=== PATIENT | male | born 1935 | race Caucasian/White ===

== ENCOUNTER 2018-05-20 20:48 | Inpatient (IN) | payer OTHER ==
--- OUTSIDE RECORDS SUMMARY | 2018-05-20 20:51 | XMS REPORT | Clinical Summary ---
:1935 Author Organization [facility] Address [address] [place] [address] Care Team Providers Name Role Phone Marcia Luz MD Primary Care Provider Allergies No Known Allergies Medications Medication Sig Dispensed Refills Start End Date Status Date simvastatin (ZOCOR) Take 20 mg by 3 Active 20 MG tablet mouth once 6 daily. ELIQUIS 2.5 mg Take 2.5 mg by 3 Active tablet mouth 2 (two) 6 times a day. insulin Use as directed 300 each 3 Active syringe-needle 7 U-100 0.5 mL 31 gauge x 5/16 syringe blood sugar Test sugar 3-4 300 strip 3 Active diagnostic strips times a day 7 (CONTOUR NEXT STRIPS) strip test strips insulin regular inject per 20 mL 3 Active human U-500 sliding scale 7 (HumuLIN R U-500) 25-50 units 500 unit/mL under the skin CONCENTRATED before each meal injectionIndication 3 times a day s: Diabetic autonomic neuropathy associated with type 2 diabetes mellitus (HCC) calcitriol TAKE ONE (1) 11 Active (ROCALTROL) 0.25 CAPSULE(S) BY 7 MCG capsule MOUTH ONCE A DAY. finasteride TAKE ONE (1) 90 tablet Active (PROSCAR) 5 mg TABLET(S) BY 8 tabletIndications: MOUTH ONCE A Benign prostatic DAY. hyperplasia with lower urinary tract symptoms, symptom details unspecified potassium chloride Take 1 tablet 90 tablet Active (K-DUR) 20 MEQ CR (20 mEq total) 8 tabletIndications: by mouth daily. Essential hypertension tamsulosin (FLOMAX) Take 1 capsule 3 Active 0.4 mg by mouth daily. 8 capsule,extended release 24hr metoprolol tartrate Take 1 tablet by 3 Active (LOPRESSOR) 25 mg mouth 2 (two) 7 tablet times a day. ranitidine (ZANTAC) Take 150 mg by 0 Active 150 MG tablet mouth daily. allopurinol Take 1 tablet 60 tablet 11 Active (ZYLOPRIM) 100 MG (100 mg total) 8 tabletIndications: by mouth daily. Elevated uric acid in blood lidocaine-prilocain Apply 1 90 g 4 Active e (EMLA) 2.5-2.5 % application (2.5 8 cream g total) topically as needed for mild pain (2-3 times per day as needed to painful areas). gabapentin Take 2 capsules 360 capsule 3 Active (NEURONTIN) 300 mg in the morning 8 capsule and at bedtime for a total of 4 per day. cholecalciferol, Take 1,000 Units 0 Active vitamin D3, by mouth daily. (VITAMIN D3) 1,000 unit capsule clopidogrel Take 75 mg by 0 Active (PLAVIX) 75 mg mouth daily. tablet BUMETanide (BUMEX) TAKE TWO (2) 3 Active 2 MG tablet TABLET(S) BY 8 MOUTH TWICE A DAY. levothyroxine Take 1 tablet 90 tablet 1 02/24/20 Active (SYNTHROID) 200 mcg (200 mcg total) 8 19 tabletIndications: by mouth every Other specified morning. hypothyroidism LYRICA 75 mg TAKE ONE (1) 90 capsule 1 03/06/20 Active capsule CAPSULE(S) BY 8 19 MOUTH NIGHTLY. levothyroxine Take 1 tablet 30 tablet 11 03/29/20 Active (SYNTHROID) 25 mcg (25 mcg total) 8 19 tablet by mouth every morning. spironolactone Take 1 tablet 90 tablet 3 05/08/20 Active (ALDACTONE) 25 MG (25 mg total) by 8 19 tabletIndications: mouth daily. Coronary artery disease involving samish coronary artery of samish heart without angina pectoris, Systolic congestive heart failure, unspecified HF chronicity (HCC), Aortic valve disorder pantoprazole Take 40 mg by 0 07/25/19 Discontinued (PROTONIX) 40 MG EC mouth 2 (two) 18 tablet times a day. amIODarone 0 05/08/20 Discontinued (PACERONE) 200 MG 6 18 tablet pregabalin (LYRICA) Take 1 capsule 90 capsule 2 07/28/19 Discontinued 75 MG capsule (75 mg total) by 7 18 mouth nightly. doxazosin (CARDURA) Take 2 mg by 0 07/25/19 Discontinued 4 MG tablet mouth nightly. 18 allopurinol Take 1 tablet 90 tablet 3 07/25/19 Discontinued (ZYLOPRIM) 100 MG (100 mg total) 7 18 tabletIndications: by mouth daily. Elevated uric acid in blood finasteride Take 1 tablet (5 90 tablet 3 07/22/19 Discontinued (PROSCAR) 5 mg mg total) by 7 18 tabletIndications: mouth daily. Benign prostatic hyperplasia with lower urinary tract symptoms, unspecified morphology potassium chloride Take 1 tablet 180 tablet 3 07/25/19 Discontinued (K-DUR) 20 MEQ CR (20 mEq total) 7 18 tabletIndications: by mouth 2 (two) Essential times a day. hypertension levothyroxine Take 1 tablet 30 tablet 11 07/25/19 Discontinued (SYNTHROID) 200 mcg (200 mcg total) 7 18 tablet by mouth every morning. fosinopril Take 40 mg by 0 07/25/19 Discontinued (MONOPRIL) 40 MG mouth daily. [address] 1 patch on 12 patch 0 07/25/19 Discontinued (TRANSDERM-SCOP) the skin every 7 18 1.5 mg (1 mg over 3 third day. days)Indications: Motion sickness, initial encounter gabapentin Take 2 capsules 450 capsule 2 07/28/19 Discontinued (NEURONTIN) 300 mg in the morning 7 18 capsule and at bedtime, take 1 capsule at noon. metoprolol Take 50 mg by 0 07/25/19 Discontinued succinate XL mouth 2 (two) 18 (TOPROL-XL) 50 mg times a day. 24 hr tablet furosemide (LASIX) 2 po bid 120 tablet 3 02/20/20 Discontinued 80 mg tablet 7 18 lidocaine-prilocain Apply 1 90 g 4 07/28/19 Discontinued e (EMLA) 2.5-2.5 % application (2.5 7 18 cream g total) topically as needed for mild pain (2-3 times per day as needed to painful areas). finasteride TAKE ONE (1) 90 tablet 2 07/25/19 Discontinued (PROSCAR) 5 mg TABLET(S) BY 8 18 tabletIndications: MOUTH ONCE A Benign prostatic DAY. hyperplasia with lower urinary tract symptoms allopurinol Take 1 tablet 90 tablet 1 07/28/19 Discontinued (ZYLOPRIM) 100 MG (100 mg total) 8 18 tabletIndications: by mouth daily. Elevated uric acid in blood levothyroxine Take 1 tablet 90 tablet 1 02/24/20 Discontinued (SYNTHROID) 200 mcg (200 mcg total) 8 18 tabletIndications: by mouth every Other specified morning. hypothyroidism ENTRESTO 24-26 mg Take 1 tablet by 11 07/25/19 Discontinued tablet per tablet mouth 2 (two) 7 18 times a day. levothyroxine Take 1 tablet 30 tablet 11 09/18/19 Discontinued (SYNTHROID, (25 mcg total) 8 18 LEVOXYL) 25 mcg by mouth every tablet morning. pregabalin (LYRICA) Take 1 capsule 90 capsule 0 09/18/19 Discontinued 75 MG capsule (75 mg total) by 8 18 mouth nightly. gabapentin Take 2 capsules 450 capsule 0 09/18/19 Discontinued (NEURONTIN) 300 mg in the morning 8 18 capsule and at bedtime, take 1 capsule at noon. sacubitril-valsarta 1/2 tab po bid 16 tablet 11 01/03/20 Discontinued n (ENTRESTO) 24-26 8 18 mg tablet per tablet pregabalin (LYRICA) Take 1 capsule 90 capsule 3 01/03/20 Discontinued 75 MG capsule (75 mg total) by 8 18 mouth nightly. levothyroxine TAKE ONE (1) 90 tablet 3 11/18/19 Discontinued (SYNTHROID, TABLET(S) BY 8 18 LEVOXYL) 200 mcg MOUTH ONCE A DAY tablet IN THE MORNING. fosinopril Take 20 mg by 0 12/06/19 Discontinued (MONOPRIL) 20 MG mouth daily. 18 tablet clopidogrel Take 75 mg by 0 12/06/19 Discontinued (PLAVIX) 75 mg mouth daily. 18 tablet albuterol (PROAIR Inhale 2 puffs 18 g 1 11/19/19 Discontinued HFA) 90 every 6 (six) 8 18 mcg/actuation hours as needed inhalerIndications: for wheezing. SOB (shortness of breath) albuterol (VENTOLIN Inhale 2 puffs 18 g 5 01/03/20 Discontinued HFA) 90 every 6 (six) 8 18 mcg/actuation hours as needed inhaler for wheezing. benzonatate Take 1 capsule 60 capsule 0 12/25/19 (TESSALON) 200 MG (200 mg total) 8 18 capsule by mouth 3 (three) times a day as needed for cough for up to 30 days. doxycycline Take 1 capsule 14 capsule 0 12/02/19 (VIBRAMYCIN) 100 MG (100 mg total) 8 18 capsule by mouth 2 (two) times a day for 7 days. codeine-guaifenesin Take 5 mL by 240 mL 0 12/13/19 (GUAIFENESIN AC) mouth 3 (three) 8 18 10-100 mg/5 mL times a day as liquid needed for cough for up to 14 days. cefdinir (OMNICEF) Take 1 capsule 14 capsule 0 12/13/19 300 MG (300 mg total) 8 18 capsuleIndications: by mouth 2 (two) Bronchitis times a day for 7 days. codeine-guaifenesin Take 10 mL by 473 mL 0 12/06/19 Discontinued (GUAIFENESIN AC) mouth 3 (three) 8 18 10-100 mg/5 mL times a day as liquidIndications: needed for cough Cough for up to 10 days. losartan (COZAAR) Take 1 tablet 30 tablet 11 01/03/20 Discontinued 50 MG (50 mg total) by 8 18 tabletIndications: mouth daily. Essential hypertension predniSONE Take 1 tablet 7 tablet 0 12/13/19 (DELTASONE) 10 mg (10 mg total) by 8 18 tabletIndications: mouth daily for Shortness of breath 7 days. albuterol (PROAIR Inhale 2 puffs 18 g 2 01/03/20 Discontinued HFA,PROVENTIL every 6 (six) 8 18 HFA,VENTOLIN HFA) hours as needed 90 mcg/actuation for wheezing. inhalerIndications: Shortness of breath codeine-guaifenesin Take 10 mL by 473 mL 0 12/16/19 (GUAIFENESIN AC) mouth 3 (three) 8 18 10-100 mg/5 mL times a day as liquidIndications: needed for cough Cough for up to 10 days. 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 Heart palpitations 03/25/2016 Overview: Dr Rodney Pantoja EP, was told EF 25% per pt Placed on Amiodarone early 03/2016 Renal insufficiency 02/20/2016 Overview: 04/[address] Solomon to decrease PPI Stop calcium Keep bp less than 130/80 07/2016 stage [address] Solomon Benign non-nodular prostatic hyperplasia with lower urinary tract symptoms 10/2015 Overview: Dr Chris Hernandez in the past Diabetic polyneuropathy associated with type 2 diabetes mellitus 02/08/2016 Overview: Dr Begum Neurologist [facility] [phone] Gout 06/06/2004 Hypertension Hyperlipidemia GERD (gastroesophageal reflux disease) Disease of thyroid gland Diabetes mellitus Overview: Humulin RU 500 insulin PRN 50-75 units per day, patient has a sliding scale that he uses Anemia Clotting disorder SOB (shortness of breath) Overview: 01/21/199610/[address] Jessee Gutierrez EF decreased S/p TAVR, ACID and Pacemaker Encounters Date Type Specialty Care Team Description 05/08/2018 Office Visit Cardiology Trisha Rico, SOB (shortness of breath) (Primary Dx); Coronary artery disease involving samish coronary artery of samish heart without angina pectoris; Systolic congestive heart failure, unspecified HF chronicity ([facility]); Aortic valve disorder; PAD (peripheral artery disease) ([facility]); Essential hypertension; S/P TAVR (transcatheter aortic valve replacement); History of coronary artery bypass graft; Stented coronary artery; 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 05/08/2018 Orders Only Cardiology Trisha Rico MD 04/03/2018 Nurse Triage Access Kelin Arias RN 03/29/2018 Orders Only Internal Medicine Marcia Luz MD 03/17/2018 Orders Only Internal Medicine Marcia Luz Abnormal thyroid MD Kush function test (Primary Dx) 03/06/2018 Refill Neurology Farhad Begum MD 02/23/2018 Telephone Neurology Farhad Begum MD 02/20/2018 Telephone Internal Medicine Marcia Luz Other specified MD Kush hypothyroidism 02/19/2018 Office Visit Internal Medicine Marcia Luz Type 2 diabetes mellitus with diabetic polyneuropathy, with long-term current use of insulin ( Primary Dx); MD Kush Shortness of breath; Other specified hypothyroidism; Other fatigue; SOB (shortness of breath); Essential hypertension; Pedal edema 01/20/2018 Telephone Cardiovascular Marbella Muniz, RN 01/19/2018 Telephone Cardiovascular Luann Garland 01/14/2018 Hospital Radiology Farhad Begum MD Leg swelling Encounter 01/14/2018 Telephone Neurology Farhad Begum MD Stenosis of right femoral artery (Primary Dx) 01/02/2018 Office Visit Neurology Farhad Begum MD Diabetic polyneuropathy associated with type 2 diabetes mellitus (Primary Dx); Cardioembolic stroke; Leg swelling 12/29/2017 Telephone Neurology Farhad Begum MD 12/05/2017 [facility] Radiology Marcia Luz Shortness of breath; Encounter MD Kush Cough 12/05/2017 Office Visit Internal Medicine Marcia Luz Shortness of breath (Primary Dx); MD Kush Cough; Bronchitis; Essential hypertension 12/05/2017 Telephone Internal Medicine Marcia Luz MD 11/28/2017 Refill Internal Medicine Marcia Luz MD 11/24/2017 Telephone Internal Medicine Marcia Luz MD 11/18/2017 Telephone Internal Medicine Rosa Eric MA 11/17/2017 Office Visit Internal Medicine Marcia Luz SOB (shortness of breath) (Primary Dx); MD Kush Essential hypertension; Diabetic polyneuropathy associated with type 2 diabetes mellitus; Renal insufficiency; Other fatigue 10/29/2017 Refill Internal Medicine Marcia Luz MD 09/17/2017 Office Visit Farhad Ascencio MD Diabetic polyneuropathy associated with type 2 diabetes mellitus (Primary Dx); Cardioembolic stroke; Pain in both lower extremities 08/09/2017 Orders Only Internal Medicine Marcia Luz MD 07/28/2017 Refill Farhad Ascencio MD 07/28/2017 Orders Only Internal Medicine Marcia Luz Elevated uric acid in MD Kush blood 07/25/2017 Office Visit Internal Medicine Marcia Luz Shortness of breath (Primary Dx); MD Kush Elevated uric acid in blood; Benign prostatic hyperplasia with lower urinary tract symptoms, symptom details unspecified; Essential hypertension; Other specified hypothyroidism; Pure hypercholesterolemia; Diabetic autonomic neuropathy associated with type 2 diabetes mellitus 07/22/2017 Refill Internal Medicine Marcia Luz Benign prostatic MD Kush hyperplasia with lower urinary tract symptoms after 05/19/2017 Immunizations Name Dates Previously Given Next Due FLUZONE HIGH-DOSE PF 04/05/2017 Influenza Whole 04/20/2016, 04/24/2015 Pneumococcal Conjugate 06/20/2011 Pneumococcal Conjugate 13-Valent 04/20/2016 Tdap 10/23/2016 Zoster 10/23/2016 Family History Medical History Relation Name Comments Coronary artery disease Father Early Father heart attack Relation Name Status Comments Father Mother Social History Tobacco Use Types Packs/Day Years Used Date Never Smoker Smokeless Tobacco: Never Used Alcohol Use Drinks/Week oz/Week Comments No Sex Assigned at Date Recorded Not on file Job Start Date Occupation Industry Not on file Not on file Not on file Travel History Travel Start Travel End No recent travel history available. Last Filed Vital Signs Vital Sign Reading Time Taken Blood Pressure 137/72 05/08/2018 2:59 PM CDT Pulse 79 05/08/2018 2:59 PM CDT Temperature 36.8 C (98.3 F) 12/05/2017 12:00 PM CDT Respiratory Rate 14 01/02/2018 11:33 AM CDT Oxygen Saturation 96% 02/19/2018 11:18 AM CDT Inhaled Oxygen Concentration - - Weight 104 kg (230 lb) 05/08/2018 2:59 PM CDT Height 180.3 cm (5' 11") 05/08/2018 2:59 PM CDT Body Mass Index 32.08 05/08/2018 2:59 PM CDT Plan of Treatment Date Type Specialty Care Team Description 05/21/2018 Office Visit Internal Medicine Marcia Luz MD [address] [facility] [address] [place], [place] [phone] 06/05/2018 Office Visit Cardiology Trisha Rico MD [address] [facility] [address] [place], [place] [phone] 09/18/2018 [place] [address] [facility] [address] [place] [address] Health Maintenance Due Date Last Done Comments SHINGRIX VACCINE (1 of 2) 1986 INFLUENZA VACCINE 02/04/2018 04/05/2017, 04/20/2016, 04/24/2015 DIABETIC RETINAL EYE EXAM 08/06/2018 08/06/2017 DIABETIC FOOT EXAM 11/17/2018 11/17/2017, 11/17/2017, 10/23/2016 PNEUMOCOCCAL POLYSACCHARIDE VACCINE Completed 06/20/2011, 06/20/2011 AGE 65 AND OVER PNEUMOCOCCAL-13 Completed 04/20/2016, 04/20/2016 ZOSTER VACCINE Completed 10/23/2016, 10/23/2016 Procedures Procedure Name Priority Date/Time Associated Diagnosis Comments ECHOCARDIOGRAM 2D Routine 05/08/2018 Coronary artery disease Results for COMPLETE W MMODE 3:52 PM CDT involving samish coronary this procedure SPECTRAL COLOR artery of samish heart are in the DOPPLER ([id number]) without angina pectoris results Systolic congestive heart section. failure, unspecified HF chronicity (HCC) Aortic valve disorder ECG 12-LEAD Routine 05/08/2018 Coronary artery disease Results for 8:48 AM CDT involving samish coronary this procedure artery of samish heart are in the without angina pectoris results section. OBTAIN MEDICAL Routine 05/08/2018 RECORDS T4, FREE Routine 03/27/2018 Abnormal thyroid function Results for 10:56 AM CDT test this procedure are in the results section. THYROID STIMULATING Routine 03/27/2018 Abnormal thyroid function Results for HORMONE 10:56 AM CDT test this procedure are in the results section. T4, FREE Routine 02/19/2018 Other specified Results for 12:18 PM CDT hypothyroidism this procedure are in the results section. THYROID STIMULATING Routine 02/19/2018 Other specified Results for HORMONE 12:18 PM CDT hypothyroidism this procedure are in the results section. CBC WITH PLATELET Routine 02/19/2018 Shortness of breath Results for AND DIFFERENTIAL 12:18 PM CDT this procedure are in the results section. COMPREHENSIVE Routine 02/19/2018 Other fatigue Results for METABOLIC PANEL 12:18 PM CDT Essential hypertension this procedure Pedal edema are in the results section. C-PEPTIDE Routine 02/19/2018 Type 2 diabetes mellitus Results for 12:18 PM CDT with diabetic this procedure polyneuropathy, with are in the long-term current use of results insulin section. GAD65, IA-2, AND Routine 02/19/2018 Type 2 diabetes mellitus Results for INSULIN AUTOANTIBODY 12:18 PM CDT with diabetic this procedure polyneuropathy, with are in the long-term current use of results insulin section. US DUPLEX ARTERIAL Routine 01/14/2018 Leg swelling Results for LOWER EXTREMITY 2:01 PM CDT this procedure BILATERAL are in the results section. XR CHEST 2 VW Routine 12/05/2017 Shortness of breath Results for 2:33 PM CDT Cough this procedure are in the results section. BASIC METABOLIC Routine 12/05/2017 Essential hypertension Results for PANEL 1:07 PM CDT this procedure are in the results section. CBC WITH PLATELET Routine 12/05/2017 Shortness of breath Results for AND DIFFERENTIAL 1:07 PM CDT Bronchitis this procedure are in the results section. B NATRIURETIC Routine 12/05/2017 Shortness of breath Results for PEPTIDE 1:07 PM CDT this procedure are in the results section. BASIC METABOLIC Routine 11/17/2017 Essential hypertension Results for PANEL 1:11 PM CDT Diabetic polyneuropathy this procedure associated with type 2 are in the diabetes mellitus results Renal insufficiency section. MICROALBUMIN / Routine 07/25/2017 Results for CREATININE URINE 12:02 PM BUSINESS INSURANCE AGENT this procedure RATIO are in the results section. URIC ACID LEVEL Routine 07/25/2017 Elevated uric acid in Results for 12:02 PM BUSINESS INSURANCE AGENT blood this procedure are in the results section. CBC WITH PLATELET Routine 07/25/2017 Shortness of breath Results for AND DIFFERENTIAL 12:02 PM BUSINESS INSURANCE AGENT this procedure are in the results section. LIPID PANEL Routine 07/25/2017 Pure hypercholesterolemia Results for 12:02 PM BUSINESS INSURANCE AGENT this procedure are in the results section. T4, FREE Routine 07/25/2017 Other specified Results for 12:02 PM BUSINESS INSURANCE AGENT hypothyroidism this procedure are in the results section. THYROID STIMULATING Routine 07/25/2017 Other specified Results for HORMONE 12:02 PM BUSINESS INSURANCE AGENT hypothyroidism this procedure are in the results section. HEMOGLOBIN A1C Routine 07/25/2017 Diabetic autonomic Results for 12:02 PM BUSINESS INSURANCE AGENT neuropathy associated with this procedure type 2 diabetes mellitus are in the results section. COMPREHENSIVE Routine 07/25/2017 Essential hypertension Results for METABOLIC PANEL 12:02 PM BUSINESS INSURANCE AGENT Diabetic autonomic this procedure neuropathy associated with are in the type 2 diabetes mellitus results section. B NATRIURETIC Routine 07/25/2017 Shortness of breath Results for PEPTIDE 12:02 PM BUSINESS INSURANCE AGENT this procedure are in the results section. after 05/19/2017 Results Echocardiogram complete w contrast and 3D if needed (05/08/2018 3:52 PM CDT) Narrative Performed At [facility] Echocardiography Report Pat.Name:MARCELA MERCADO.ID:[id number] .Date: 05/08/2018 Refer.MD:TRISHA RICO MD Exam Time: 3:00:00 PMStudy Type:Routine Echo Height:71inWeight: 230lb BSA: 2.24 m2 DOBAge:1935,83Y Sex: MALEBP:137/72 HR:65 bpm Sonogrphr: Faye Cartagena, RCS, RCCS, CCT Pat. Stat.:OutpatientRoom[facility] TapeVol: [facility], Study Status:Final Echo Event ID:[id number] Order ID:[id number] Reason for Study:Coronary artery disease involving samish coronary artery of samish heart without angina pectoris [I25.10 (ICD-10-CM)]; Systolic congestive heart failure, unspecified HF chronicity (HCC) [I50.20 (ICD-10-CM)]; Aortic valve disorder [I35.9 (ICD-10-CM)] History / Clinical:Atrial Fibrillation, COPD, Coronary Artery Disease Procedures:2D Echo, Colorflow Doppler Race:C SUMMARY: -Mild concentric LVH. LV EF is normal. LV filling pressure is elevated. -RV systolic function is normal. -Suboptimal/insufficient TR jet. Estimated PA systolic pressure is at least 40 mmHg, assuming a mean RAP of 5 mmHg. -S/P TAVR with normal flow velocity/gradient across.No significant AI can be appreciated on color Doppler. FINDINGS: LV: LV size is normal. There is mild concentric LV hypertrophy. LVEF is normal. Estimated EF is 55-59%. Overall wall motionis normal. Septal motion is paradoxical secondary to LBBBor conduction abnormality. RV: RV size is normal. A pacemaker wire is seen in the RV. RV systolicfunction is normal. LA: LA volume is moderately enlarged. RA: RA size is normal. RAJESH: No pericardial effusion. AV: Transcatheter bioprosthetic aortic valve. No significant aorticregurgitation can be appreciated on color Doppler. Normalprosthetic valve velocity and gradient. TranscatheterAV Doppler velocity index is 0.78 (normal >0.50). MV: Mild to moderate thickening and calcification of mitral leaflets.Moderate mitral annular calcification. A trace of mitralregurgitation. PV: Pulmonic valve not well seen. TV: No structural TV abnormalities noted. A trace of tricuspid regurgitation Jean: LV relaxation is impaired. LV filling pressure is elevated. Other:Suboptimal/insufficient TR jet. Estimated PA systolic pressureis at least 40 mmHg, assuming a mean RAP of 5 mmHg. MEASUREMENTS: 2D Parasternal Long [place] Ao An2.5 cmLV%fs 32.7 % Ao Rtd 3.3 cmIndex1.5 cm/m IVSd 1.1 cm LVOT 2.2 cmLVPWd1.2 cm LA Ds4.5 cm LV Xnbp773.6 g(122-174) LVIDd5.2 cmIndex2.3 cm/m LVM Miequ309.7 g/m2 LVIDs3.5 cmRWT0.5 LA Volume LA Vol99.6 udZdeuf96.5 ml/m LA Sng Plane LA Area 26 cm2(8.8-23.4) LA Vol93 ml Index41.5 ml/m LA LngAx 6 cm LVOT LVOT 2.1 cm DOPPLER AV For Flow/RAI AV pkVel 168 cm/s (100-170) AV AC/ET 0.5 AV mnVel 114.2 cm/Kai TVI37.6 cm AV pkPG 11.3 mmHgAVpkAcRt 3558.6 cm/s2 AV Mean G6.4 mmHgAV EvOc456.8 cm/s2 AV AC153 msec (83-118) AV Area2.7 cm2(3-5) AV ET329 msec LVOT For Flow LVOT Area3.5 cm2 LVOT SV101.6 ml QCLCrfTsg357 cm/sHR60.1 bpm LVOTpkPG 8.1 mmHgLVOT CO6.1 l/min LVOTmnPG 3.9 mmHgLVOT CI2.7 l/m/m2 LVOT TVI29.3 cm MV E/A Ratio MV pkE 105.8 cm/s (60-130) MV E/A 1.6 MV pkA64.9 cm/s IVRT IVRT80 msec TV Pressure Gradient TV PkVel 300.9 cm/sTV PG 36.2 mmHg Signed 05/11/2018 06:19 PM Brown Hicks M.D. Procedure Note Interface, Radiology Results In - 05/11/2018 6:21 PM BUSINESS INSURANCE [employer]ENT [facility] Echocardiography Report Pat.Name: MARCELA MERCADO Pat.ID: [id number] St.Date: 05/08/2018 Refer.MD: TRISHA RICO MD Exam Time: 3:00:00 PM Study Type:Routine Echo Height: 71in Weight: 230lb BSA: 2.24 m2 Age: 11 1935,83Y Sex: MALE BP: 137/72 HR: 65 bpm Sonogrphr: Faye Cartagena, RCS, RCCS, CCT Pat. Stat.:Outpatient Room: [address] Vol: [facility], Study Status:Final Echo Event ID:[id number] Order ID: [id number] Reason for Study:Coronary artery disease involving samish coronary artery of samish heart without angina pectoris [I25.10 (ICD-10-CM)]; Systolic congestive heart failure, unspecified HF chronicity (HCC) [I50.20 (ICD-10-CM)]; Aortic valve disorder [I35.9 (ICD-10-CM)] History / Clinical:Atrial Fibrillation, COPD, Coronary Artery Disease Procedures:2D Echo, Colorflow Doppler Race: C SUMMARY: -Mild concentric LVH. LV EF is normal. LV filling pressure is elevated. -RV systolic function is normal. -Suboptimal/insufficient TR jet. Estimated PA systolic pressure is at least 40 mmHg, assuming a mean RAP of 5 mmHg. -S/P TAVR with normal flow velocity/gradient across. No significant AI can be appreciated on color Doppler. FINDINGS: LV: LV size is normal. There is mild concentric LV hypertrophy. LV EF is normal. Estimated EF is 55-59%. Overall wall motion is normal. Septal motion is paradoxical secondary to LBBB or conduction abnormality. RV: RV size is normal. A pacemaker wire is seen in the RV. RV systolic function is normal. LA: LA volume is moderately enlarged. RA: RA size is normal. RAJESH: No pericardial effusion. AV: Transcatheter bioprosthetic aortic valve. No significant aortic regurgitation can be appreciated on color Doppler. Normal prosthetic valve velocity and gradient. Transcatheter AV Doppler velocity index is 0.78 (normal >0.50). MV: Mild to moderate thickening and calcification of mitral leaflets. Moderate mitral annular calcification. A trace of mitral regurgitation. PV: Pulmonic valve not well seen. TV: No structural TV abnormalities noted. A trace of tricuspid regurgitation Jean: LV relaxation is impaired. LV filling pressure is elevated. Other: Suboptimal/insufficient TR jet. Estimated PA systolic pressure is at least 40 mmHg, assuming a mean RAP of 5 mmHg. MEASUREMENTS: 2D Parasternal Long [place] Ao An 2.5 cm LV%fs 32.7 % Ao Rtd 3.3 cm Index 1.5 cm/m IVSd 1.1 cm LVOT 2.2 cm LVPWd 1.2 cm LA Ds 4.5 cm LV Mass 234.6 g (122-174) LVIDd 5.2 cm Index 2.3 cm/m LVM Index 104.7 g/m2 LVIDs 3.5 cm RWT 0.5 LA Volume LA Vol 99.6 ml Index 44.5 ml/m LA Sng Plane LA Area 26 cm2 (8.8-23.4) LA Vol 93 ml Index 41.5 ml/m LA LngAx 6 cm LVOT LVOT 2.1 cm DOPPLER AV For Flow/RAI AV pkVel 168 cm/s (100-170) AV AC/ET 0.5 AV mnVel 114.2 cm/s AV TVI 37.6 cm AV pkPG 11.3 mmHg AVpkAcRt 3558.6 cm/s2 AV Mean G 6.4 mmHg AV DeRt 510.8 cm/s2 AV AC 153 msec (83-118) AV Area 2.7 cm2 (3-5) AV ET 329 msec LVOT For Flow LVOT Area 3.5 cm2 LVOT SV 101.6 ml LVOTpkVel 142 cm/s HR 60.1 bpm LVOTpkPG 8.1 mmHg LVOT CO 6.1 l/min LVOTmnPG 3.9 mmHg LVOT CI 2.7 l/m/m2 LVOT TVI 29.3 cm MV E/A Ratio MV pkE 105.8 cm/s (60-130) MV E/A 1.6 MV pkA 64.9 cm/s IVRT IVRT 80 msec TV Pressure Gradient TV PkVel 300.9 cm/s TV PG 36.2 mmHg Signed 05/11/2018 06:19 PM Brown Hicks M.D. Performing Organization Address [facility] Phone Number [facility] [address] [place] [address] ECG 12 lead (05/08/2018 8:48 AM CDT) Ventricular rate 73 [facility] MUSE Atrial rate 73 HM MUSE AL interval 144 HM MUSE QRSD interval 178 [facility] MUSE QT interval 518 HM MUSE QTC interval 570 HM MUSE P axis 1 66 [facility] MUSE QRS axis 1 259 [facility] MUSE T wave axis 88 HM MUSE EKG impression AV sequential or dual chamber electronic [facility] MUSE pacemaker-In automated comparison with ECG of 30-NOV-2014 17:34,-Electronic ventricular pacemaker has replaced Atrial fibrillation- Performing Organization Address [facility] Phone Number [facility] MUSE [address] [place] [address] Obtain medical records (05/08/2018) Narrative Performed At Thyroid stimulating hormone (03/27/2018 10:56 AM CDT)Only the most recent of3 resultswithin the time period is included. TSH 24.11 (H) 0.40 - 4.50 mIU/L [facility] [place] Specimen Blood Narrative Performed At FASTING:NO [facility] FASTING: NO Resulting Agency Comment Performing Organization Information: Site ID: [id number] Name: [facility] Lab Address: [address] [place] [phone] Director: Jessica Morris Performing Organization Address City/[facility] Cent[facility]ode Phone [place] [address] T4, free (03/27/2018 10:56 AM CDT)Only the most recent of3 resultswithin the time period is included. T4, free 1.4 0.8 - 1.8 ng/dL [facility] [place] Specimen Blood Narrative Performed At FASTING:NO [facility] FASTING: NO Resulting Agency Comment Performing Organization Information: Site ID: [id number] Name: [facility] Address: [address] [place] [phone] Director: Jessica Morris Performing Organization Address [facility] Centercout [place] [address] GAD65, IA-2, and Insulin Autoantibody (02/19/2018 12:18 PM CDT) Glutamic acid decarboxylase <5 <5 IU/mL [facility] 65 Ab Comment: [facility] [facility] This test was performed using the GAD65 CM method. New method, CM, is standardized against the International reference preparation 97/550, is reported in International Units/mL (IU/mL) and a new reference range was implemented. IA-2 antibody <0.8 <0.8 U/mL [facility] Insulin AutoAb 6.2 (H) <0.4 U/mL [facility] Specimen Blood Resulting Agency Comment Performing Organization Information: Site ID: [id number] Name: [employer]/[facility], Address: [address] [place] [phone] Director: Nissa Frey MD,PhD,GHULAM Performing Organization Address City/State/Zipcode Phone Number [employer]/[place] [address] [place] [address] [facility] C-peptide (02/19/2018 12:18 PM CDT) C-peptide 2.27 0.80 - 3.85 ng/mL [id number] Specimen Blood Resulting Agency Comment Performing Organization Information: Site ID: [id number] Name: [facility] Address: [address] [place] [phone] Director: Dr. Chele Yates Performing Organization Address City/[facility]/Zipcode Phone Number [facility] [address] [place] [address] CBC with platelet and differential (02/19/2018 12:18 PM CDT)Only the most recent of3 resultswithin the time period is included. WBC 7.0 3.8 - 10.8 Thousand/uL [facility] RBC 3.97 (L) 4.20 - 5.80 Million/uL [employer] [facility] HGB 11.2 (L) 13.2 - 17.1 g/dL [employer] [facility] HCT 34.9 (L) 38.5 - 50.0 % [facility] [place] MCV 87.9 80.0 - 100.0 fL [employer] [facility] MCH 28.2 27.0 - 33.0 pg [employer] [facility] MCHC 32.1 32.0 - 36.0 g/dL [facility] [place] RDW 15.5 (H) 11.0 - 15.0 % [facility] [place] Platelet count 159 140 - 400 Thousand/uL [facility] [place] MPV 11.2 7.5 - 12.5 fL [facility] [place] Neutrophils, absolute 3,661 1,500 - 7,800 cells/uL [facility] [place] Lymphocytes, absolute 2,527 850 - 3,900 cells/uL [facility] [place] Monocytes, absolute 581 200 - 950 cells/uL [facility] [place] Eosinophils, absolute 189 15 - 500 cells/uL [facility] [place] Basophils, absolute 42 0 - 200 cells/uL [facility] [place] Neutrophils 52.3 % [employer] [facility] Lymphocytes 36.1 % [facility] [place] Monocytes 8.3 % [facility] [place] Eosinophils 2.7 % [facility] [place] Basophils + RC 0.6 % [facility] [place] Specimen Blood Resulting Agency Comment Performing Organization Information: Site ID: RGA Name: [facility] Address: [address] [place] [address] Director: Jessica Morris Performing Organization Address City/State/Zipcode Phone Number [facility] [place] [address] [place] [address] Comprehensive metabolic panel (02/19/2018 12:18 PM CDT)Only the most recent of2 resultswithin the time period is included. Glucose 173 (H) 65 - 99 mg/dL [facility] Comment: [place] Fasting reference interval For someone without known diabetes, a glucose value >125 mg/dL indicates that they may have diabetes and this should be confirmed with a follow-up test. BUN, whole blood 32 (H) 7 - 25 mg/dL [facility] [place] Creatinine 2.05 (H) 0.70 - 1.11 [facility] Comment: mg/dL [place] For patients >49 years of age, the reference limit for Creatinine is approximately 13% higher for people identified as -[place]. EGFR Non-Afr. [place] 30 (L) > OR=60 [facility] mL/min/1.73m2 [place] EGFR 34 (L) > OR=60 [facility] mL/min/1.73m2 [place] BUN/creatinine ratio 16 6 - 22 (calc) [facility] [place] Sodium 139 135 - 146 mmol/L [facility] [place] Potassium 4.3 3.5 - 5.3 mmol/L [facility] [place] Chloride 99 98 - 110 mmol/L [facility] [place] CO2 31 20 - 32 mmol/L [facility] [place] Calcium 8.7 8.6 - 10.3 mg/dL [facility] [place] Protein 6.5 6.1 - 8.1 g/dL [facility] [place] Albumin, S 4.0 3.6 - 5.1 g/dL [facility] [place] Globulin, total 2.5 1.9 - 3.7 g/dL [facility] (calc) [place] Albumin/globulin ratio 1.6 1.0 - 2.5 (calc) [facility] [place] Total bilirubin 0.6 0.2 - 1.2 mg/dL [facility] [place] Alkaline phosphatase 63 40 - 115 U/L [facility] [place] AST 25 10 - 35 U/L [facility] [place] ALT 25 9 - 46 U/L [facility] [place] Specimen Blood Resulting Agency Comment Performing Organization Information: Site ID: RGA Name: [facility] Address: [address] [place] [address] Director: Jessica Morris Performing Organization Address City/State/Zipcode Phone Number [facility] [place] [address] [place], [place] [phone] Pv duplex arterial lower extremity (01/14/2018 2:01 PM CDT) Narrative Performed At EXAM: US DUPLEX ARTERIAL LOWER EXTREMITY BILATERAL HM RADIANT HISTORY: M79.89 Other specified soft tissue disorders, bilateral leg swelling and pain TECHNIQUE: Real time as well as pulsed and color Doppler evaluation of bilateral common femoral, femoral, popliteal, posterior tibial, anterior tibial, and dorsalis pedis arteries are evaluated. The examination includes a full duplex Doppler scan of the blood vessels (real time P mode grayscale, Doppler spectral analysis, and Doppler color flow imaging). COMPARISON: None. IMPRESSION: 1.Velocity gradient in the right common femoral artery with greater than threefold increase compared to the more proximal external iliac artery. There is also loss of waveform phasicity in the more peripheral right lower lobectomy arteries. Compatible with flow limiting stenosis in the right common femoral artery, likely near 70%. 2.Generalized loss of phasicity in the left lower extremity calf arteries, likely due to vessel hardening and/or inflammatory mediated vasodilation without segment of flow limiting stenosis identified. 3.Right RAYMUNDO compatible with moderate peripheral arterial disease. 4.Left RAYMUNDO suggests mild peripheral arterial disease. FINDINGS: RIGHT LEG: PEAK SYSTOLIC VELOCITIES ARE FOLLOWS: COMMON FEMORAL:286 cm/s FEMORAL: Proximal: 95.65 cm/s Mid: 87.57 cm/s Distal: 76.26 cm/s POPLITEAL: Proximal:43.09 cm/s Mid: 38.58 cm/s Distal: 51.89 cm/s POSTERIOR TIBIAL: Proximal: 19.79 cm/s Mid: 60.93 cm/s Distal:3 7.65 cm/s ANTERIOR TIBIAL: Proximal: 68.83 cm/s Mid: 29.15 cm/s Distal:4 0.50 cm/s DORSALIS PEDIS: 8.14 cm/s DOPPLER WAVEFORMS: COMMON FEMORAL: Triphasic FEMORAL Proximal: Triphasic Mid: Triphasic Distal: Triphasic POPLITEAL Proximal: Triphasic Mid: Biphasic Distal: Monophasic POSTERIOR TIBIAL Proximal: Monophasic Mid: Monophasic Distal: Monophasic ANTERIOR TIBIAL Proximal: Monophasic Mid: Monophasic Distal: Monophasic DORSALIS PEDIS: Monophasic ANKLE BRACHIAL INDEX: Posterior tibial: 0.62 Dorsalis pedis: 0.60 LEFT LEG: PEAK SYSTOLIC VELOCITIES ARE FOLLOWS: COMMON FEMORAL:84.34 cm/s FEMORAL: Proximal: 115.04 cm/s Mid: 74.65 cm/s Distal: 149.61 cm/s POPLITEAL: Proximal: 102.00 cm/s Mid: 76.60 cm/s Distal: 44.03 cm/s POSTERIOR TIBIAL: Proximal: 28.99 cm/s Mid: 32.82 cm/s Distal:3 6.66 cm/s ANTERIOR TIBIAL: Proximal:33.92 cm/s Mid: 13.84 cm/s Distal: 30.16 cm/s DORSALIS PEDIS:31.19 cm/s DOPPLER WAVEFORMS: COMMON FEMORAL: Triphasic FEMORAL Proximal: Triphasic Mid: Triphasic Distal: Triphasic POPLITEAL Proximal: Triphasic Mid: Triphasic Distal: Triphasic POSTERIOR TIBIAL Proximal: Monophasic Mid: Monophasic Distal: Monophasic ANTERIOR TIBIAL Proximal: Monophasic Mid: Monophasic Distal: Monophasic DORSALIS PEDIS: Monophasic ANKLE BRACHIAL INDEX: Posterior tibial: 0.86 Dorsalis pedis: 1.03 [facility] [id number] Procedure Note Hm Interface, Radiology Results Incoming - 01/14/2018 2:13 PM CDT EXAM: US DUPLEX ARTERIAL LOWER EXTREMITY BILATERAL HISTORY: M79.89 Other specified soft tissue disorders, bilateral leg swelling and pain TECHNIQUE: Real time as well as pulsed and color Doppler evaluation of bilateral common femoral, femoral, popliteal, posterior tibial, anterior tibial , and dorsalis pedis arteries are evaluated. The examination includes a full duplex Doppler scan of the blood vessels (real time P mode grayscale, Doppler spectral analysis, and Doppler color flow imaging). COMPARISON: None. IMPRESSION: 1. Velocity gradient in the right common femoral artery with greater than threefold increase compared to the more proximal external iliac artery. There is also loss of waveform phasicity in the more peripheral right lower lobectomy arteries. Compatible with flow limiting stenosis in the right common femoral artery, likely near 70% . 2. Generalized loss of phasicity in the left lower extremity calf arteries, likely due to vessel hardening and/or inflammatory mediated vasodilation without segment of flow limiting stenosis identified. 3. Right RAYMUNDO compatible with moderate peripheral arterial disease. 4. Left RAYMUNDO suggests mild peripheral arterial disease. FINDINGS: RIGHT LEG: PEAK SYSTOLIC VELOCITIES ARE FOLLOWS: COMMON FEMORAL: 286 cm/s FEMORAL: Proximal: 95.65 cm/s Mid: 87.57 cm/s Distal: 76.26 cm/s POPLITEAL: Proximal: 43.09 cm/s Mid: 38.58 cm/s Distal: 51.89 cm/s POSTERIOR TIBIAL: Proximal: 19.79 cm/s Mid: 60.93 cm/s Distal: 37.65 cm/s ANTERIOR TIBIAL: Proximal: 68.83 cm/s Mid: 29.15 cm/s Distal: 40.50 cm/s DORSALIS PEDIS: 8.14 cm/s DOPPLER WAVEFORMS: COMMON FEMORAL: Triphasic FEMORAL Proximal: Triphasic Mid: Triphasic Distal: Triphasic POPLITEAL Proximal: Triphasic Mid: Biphasic Distal: Monophasic POSTERIOR TIBIAL Proximal: Monophasic Mid: Monophasic Distal: Monophasic ANTERIOR TIBIAL Proximal: Monophasic Mid: Monophasic Distal: Monophasic DORSALIS PEDIS: Monophasic ANKLE BRACHIAL INDEX: Posterior tibial: 0.62 Dorsalis pedis: 0.60 LEFT LEG: PEAK SYSTOLIC VELOCITIES ARE FOLLOWS: COMMON FEMORAL: 84.34 cm/s FEMORAL: Proximal: 115.04 cm/s Mid: 74.65 cm/s Distal: 149.61 cm/s POPLITEAL: Proximal: 102.00 cm/s Mid: 76.60 cm/s Distal: 44.03 cm/s POSTERIOR TIBIAL: Proximal: 28.99 cm/s Mid: 32.82 cm/s Distal: 36.66 cm/s ANTERIOR TIBIAL: Proximal: 33.92 cm/s Mid: 13.84 cm/s Distal: 30.16 cm/s DORSALIS PEDIS: 31.19 cm/s DOPPLER WAVEFORMS: COMMON FEMORAL: Triphasic FEMORAL Proximal: Triphasic Mid: Triphasic Distal: Triphasic POPLITEAL Proximal: Triphasic Mid: Triphasic Distal: Triphasic POSTERIOR TIBIAL Proximal: Monophasic Mid: Monophasic Distal: Monophasic ANTERIOR TIBIAL Proximal: Monophasic Mid: Monophasic Distal: Monophasic DORSALIS PEDIS: Monophasic ANKLE BRACHIAL INDEX: Posterior tibial: 0.86 Dorsalis pedis: 1.03 [facility] [id number] [facility] Organization Address City/State/Zipcode Phone Number [facility] [address] [place] [address] XR Chest 2 Vw (12/05/2017 2:33 PM CDT) Narrative Performed At EXAMINATION:XR CHEST 2 VW [facility] CLINICAL HISTORY:R06.02 Shortness of breath, R05 Cough, shortness of breathcough XR CHEST 2 VWimages are submitted COMPARISON:December 2009 FINDINGS: Cardiac silhouette is enlarged. There are changes of prior median sternotomy. A total aortic valve replacement is present. A multilead AICD device is present. The lung zones are clear. There is no pleural effusion or pneumothorax. IMPRESSION: 1. There is no acute consolidation or failure. 2. There are changes of prior median sternotomy. 3. Interval placement of a AICD device since the previous study. [id number] Procedure Note Interface, Radiology Results Incoming - 12/05/2017 2:38 PM CDT EXAMINATION: XR CHEST 2 VW CLINICAL HISTORY: R06.02 Shortness of breath, R05 Cough, shortness of breath cough XR CHEST 2 VW images are submitted COMPARISON: December 2009 FINDINGS: Cardiac silhouette is enlarged. There are changes of prior median sternotomy. A total aortic valve replacement is present. A multilead AICD device is present. The lung zones are clear. There is no pleural effusion or pneumothorax. IMPRESSION: 1. There is no acute consolidation or failure. 2. There are changes of prior median sternotomy. 3. Interval placement of a AICD device since the previous study. [id number] Performing Organization Address City/State/[facility] Cent[facility] Phone Number [facility] [address] [place] [address] B natriuretic peptide (12/05/2017 1:07 PM CDT)Only the most recent of2 resultswithin the time period is included. BNP 364 (H) <100 pg/mL [facility] [place] Comment: BNP levels increase with age in the general population with the highest values seen in individuals greater than 75 years of age. Reference: J. Am. Rodolfo. Cardiol. 2002; 40:976-982. Specimen Blood Narrative Performed At FASTING:NO [facility] FASTING: NO Resulting Agency Comment Performing Organization Information: Site ID: RGA Name: [facility] Address: [address] [place] [phone] Director: Jessica Morris Performing Organization Address [facility] Phone Number [place] [address] Basic metabolic panel (12/05/2017 1:07 PM CDT)Only the most recent of2 resultswithin the time period is included. Glucose 188 (H) 65 - 139 mg/dL [facility] Comment: [place] Non-fasting reference interval BUN, whole blood 32 (H) 7 - 25 mg/dL [facility] [place] Creatinine 1.87 (H) 0.70 - 1.11 [facility] Comment: mg/dL [place] For patients >49 years of age, the reference limit for Creatinine is approximately 13% higher for people identified as -[place]. EGFR Non-Afr. [place] 33 (L) > OR=60 [facility] mL/min/1.73m2 [place] EGFR 38 (L) > OR=60 [facility] mL/min/1.73m2 [place] BUN/creatinine ratio 17 6 - 22 (calc) [facility] [place] Sodium 138 135 - 146 mmol/L [facility] [place] Potassium 4.0 3.5 - 5.3 mmol/L [facility] [place] Chloride 98 98 - 110 mmol/L [facility] [place] CO2 31 20 - 31 mmol/L [facility] [place] Calcium 8.7 8.6 - 10.3 mg/dL [facility] [place] Specimen Blood Narrative Performed At FASTING:NO [facility] FASTING: NO Resulting Agency Comment Performing Organization Information: Site ID: RGA Name: [facility] Address: [address] [place] [phone] Director: Jessica Morris Performing Organization Address [facility] Centercout Phone [place] [employer] [address] Microalbumin / creatinine urine ratio (07/25/2017 12:02 PM BUSINESS INSURANCE AGENT) Creatinine, urine, 20 - 370 mg/dL [facility] Microalbumin, urine See Note: mg/dL [facility] Comment: [place] Reference Range: Reference Range Not established Microalbumin/creatini <30 mcg/mg creat [facility] ne ratio Comment: [place] The ADA defines abnormalities in albumin excretion as follows: Category Result (mcg/mg creatinine) Normal<30 Microalbuminuria 30-299 Clinical albuminuria > UQ=191 The ADA recommends that at least two of three specimens collected within a 3-6 month period be abnormal before considering a patient to be within a diagnostic category. Resulting Agency Comment Performing Organization Information: Site ID: [facility] Name: [facility] Address: [address] [place] [phone] Director: Jessica Morris MD Performing Organization Address [facility] Centercode [place] [address] Uric acid level (07/25/2017 12:02 PM BUSINESS INSURANCE AGENT) Uric acid (H) 4.0 - 8.0 mg/dL [facility] [place] Comment: Therapeutic target for gout patients: <6.0 mg/dL Specimen Blood Resulting Agency Comment Performing Organization Information: Site ID: [facility] Name: [facility] Address: [address] [place] [phone] Director: Jessica Morris MD Performing Organization Address [facility] Phone [place] [address] Hemoglobin A1c (07/25/2017 12:02 PM BUSINESS INSURANCE AGENT) Hemoglobin A1C (H) <5.7 % of total [facility] Comment: Hgb [place] For someone without known diabetes, a hemoglobin A1c value of 6.5% or greater indicates that they may have diabetes and this should be confirmed with a follow-up test. For someone with known diabetes, a value <7% indicates that their diabetes is well controlled and a value greater than or equal to 7% indicates suboptimal control. A1c targets should be individualized based on duration of diabetes, age, comorbid conditions, and other considerations. Currently, no consensus exists regarding use of hemoglobin A1c for diagnosis of diabetes for children. Specimen Blood Resulting Agency Comment Performing Organization Information: Site ID: [facility] Name: [facility] Address: [address] [place] [phone] Director: Jessica Morris MD Performing Organization Address [facility]out Phone Number [employer] [place] [phone] Lipid panel (07/25/2017 12:02 PM BUSINESS INSURANCE AGENT) Cholesterol, total <200 mg/dL [facility] HDL cholesterol (L) >40 mg/dL [facility] Triglycerides (H) <150 mg/dL [facility] LDL cholesterol mg/dL (calc) [facility] calculated Comment: [place] Reference range: <100 Desirable range <100 mg/dL for patients with CHD or diabetes and <70 mg/dL for diabetic patients with known heart disease. LDL-C is now calculated using the Paresh calculation, which is a validated novel method providing better accuracy than the Friedewald equation in the estimation of LDL-C. Nino LAURENT et al. MALENA. 2013;310(19): 3123-6712 (http://education.Open Source Food/faq/CUK402) Cholesterol/HDL ratio (H) <5.0 (calc) [facility] Non-HDL cholesterol <130 mg/dL [facility] Comment: (calc) [facility] For patients with diabetes plus 1 major ASCVD risk factor, treating to a non-HDL-C goal of <100 mg/dL (LDL-C of <70 mg/dL) is considered a therapeutic option. Specimen Blood Resulting Agency Comment Performing Organization Information: Site ID: [id number] Name: [facility] Address: [address] [place] [id number] Director: Jessica Morris MD Performing Organization Address City/State/Zipcode Phone Number [facility] [employer] [place] [address] [place], [place] [phone] after 05/19/2017 Insurance Payer Benefit Plan / Group Subscriber ID Type Phone Address MEDICARE MEDICARE PART A AND B xxxxxxxxxxx Medicare [place], [place] AARP AARP SUPPLEMENT xxxxxxxxxxx Commercial
[2018-05-20] MEDS ORDERED: NA CHLORIDE 0.9% 1,000 ML ONE (21:14)
--- NOTE | 2018-05-20 21:26 | RAD REPORT ---
EXAM DESCRIPTION: Shital Single View05/20/2018 9:14 pm CLINICAL HISTORY: Fever COMPARISON: August 2016 FINDINGS: The lungs appear clear of acute infiltrate. The heart is mildly enlarged. Pacemaker leads are in place. IMPRESSION: No acute abnormalities displayed
[2018-05-20 22:01] LABS: Absolute Lymphocytes (CBC) 2.3 K/uL (0.7-4.9); Absolute Monocytes 0.9 K/uL (0.1-1.3); Absolute Neutrophil 9.8 K/uL (1.8-8.0); Basophils % 0.3 % (0-1.3); Eosinophils % 0.1 % (0-4.4); Hematocrit 40.4 % (39.6-49.0); Lymphocytes % 17.8 % (15.3-44.8); MCH 28.2 pg (27.0-35.0); MCV 84.9 fL (80-100); MPV 9.9 fL (7.6-11.3); RBC Red Blood Cell Count 4.75 M/uL (4.33-5.43)
[2018-05-20 22:03] LABS: Protime INR 1.28
--- NOTE | 2018-05-20 22:10 | RAD REPORT ---
EXAM DESCRIPTION: CT - Head C Spine Mpr Wo Con - 05/20/2018 10:00 pm CLINICAL HISTORY: Head and neck injury status post fall. Head and neck pain COMPARISON: None. TECHNIQUE: Computed axial tomography of the head and cervical spine was obtained. Sagittal and coronal reconstruction was performed. All CT scans are performed using dose optimization technique as appropriate and may include automated exposure control or mA/KV adjustment according to patient size. 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 An intracranial bleed is not seen. The ventricles are normal in caliber. An extra-axial fluid collect ion is not noted.Fluid within the visualized sinuses and mastoids is not seen A cervical fracture is not visualized. No dislocation is noted. IMPRESSION: No acute intracranial abnormality is seen. A cervical fracture is not visualized. If the patient continues to have symptoms to suggest intracra nial /spinal cord pathology then MRI would be recommended
[2018-05-20 22:26] LABS: Albumin 3.6 g/dL (3.4-5.0); Bilirubin Direct 0.2 mg/dL (0-0.2); Bilirubin Total 0.7 mg/dL (0.2-1.0); Potassium 4.4 mmol/L (3.5-5.1); Protein, Total 7.8 g/dL (6.4-8.2); Troponin (Emerg Dept Use Only) 0.04 ng/mL (0.0-0.045)
[2018-05-21] MEDS ORDERED: CEFEPIME 1 GM/100 ML BAG IV ONE (00:30)
[2018-05-21] MEDS ORDERED: NA CHLORIDE 0.9% 1,000 ML ONE ×2 (00:30→03:24)
[2018-05-21 02:10] LABS: Urine Blood NEGATIVE (NEG); Urine Glucose NEGATIVE (NEG); Urine Protein NEGATIVE (NEG); Urine Specific Gravity <1.005 (1.005-1.030); Urine pH 5.5 (5.0-7.0)
[2018-05-21 02:12] LABS: Urine Bacteria <20 /HPF (NONE SEEN); Urine Culture Reflex Order NOT NEEDED; Urine RBC <5 /HPF (NONE SEEN)
--- NOTE | 2018-05-21 02:48 | ER ---
Nurse's Notes [facility] Name: Gilmer Mercado Age: 83 yrs Sex: Male : 1935 Arrival Date: 05/20/2018 Time: 20:49 Bed 5 Private MD: Diagnosis: Lobar pneumonia, unspecified organism;Sepsis, unspecified organism Presentation: 05/20 20:52 Presenting complaint: EMS states: fell from a standing position onto rug after becoming ss dizzy about 1 hour ago. Family reports that they noticed patient has been more unsteady lately and that's when they decided to take his temperature. Pt denies pain at this time. Transition of care: patient was not received from another setting of care. Onset of symptoms was May 20, 2018. Risk Assessment: Do you want to hurt yourself or someone else? Patient reports no desire to harm self or others. Initial Sepsis Screen: Does the patient meet any 2 criteria? HR > 90 bpm. Does the patient have a suspected source of infection? No. Patient's initial sepsis screen is negative. Care prior to arrival: Medication(s) given: Tylenol, 1000 mg, Glucose check: 180. 20:52 Method Of Arrival: EMS: [facility] 20:52 Acuity: VIN 3 ss Historical: - Allergies: 20:56 No Known Allergies; ss - Home Meds: 21:14 levothyroxine oral 350 mcg tablet daily [Active]; furosemide 40 mg Oral tab 1 tab once ak1 daily [Active]; tamsulosin 0.4 mg Oral cp24 1 cap once daily [Active]; Humulin R 100 unit/mL soln 500 mL 10-20 units daily [Active]; Toprol XL 25 mg Oral Tb24 1 tab twice a day [Active]; allopurinol 100 mg Oral tab [Active]; gabapentin 300 mg Oral cap 2 caps twice a day [Active]; ranitidine HCl 150 mg Oral tab [Active]; Eliquis 2.5 mg oral tab 1 tab 2 times per day [Active]; simvastatin 20 mg Oral tab 1 tab once daily [Active]; finasteride 5 mg Oral tab 1 tab once daily [Active]; amiodarone 200 mg Oral tab 1 tab once daily [Active]; calcitrol [Active]; - PMHx: 20:56 BPH; Diabetes - IDDM; High Cholesterol; PNUEMONIA; Hypertension; Pacemaker; ss - PSHx: 20:56 Thyroidectomy; CABG; Heart stents; HEART VALVE REPLACEMENT; DEFIBRILLATOR; ss - Immunization history:: Adult Immunizations up to date. - Social history:: Smoking status: Patient/guardian denies using tobacco. - Ebola Screening: : Patient denies exposure to infectious person Patient denies travel to an Ebola-affected area in the 21 days before illness onset. Screenin:21 Abuse screen: Denies threats or abuse. Denies injuries from another. Nutritional ak1 screening: No deficits noted. Tuberculosis screening: No symptoms or risk factors identified. Fall Risk None identified. Assessment: 22:20 General: Appears in no apparent distress. Behavior is calm, cooperative. Pain: Denies ak1 pain. Neuro: Level of Consciousness is awake, alert, obeys commands, Oriented to person, place, time, situation, Speech is normal. Cardiovascular: No deficits noted. Respiratory: Reports cough that is. GI: No signs and/or symptoms were reported involving the gastrointestinal system. : No signs and/or symptoms were reported regarding the genitourinary system. EENT: No signs and/or symptoms were reported regarding the EENT system. Derm: Reports fever. Musculoskeletal: No signs and/or symptoms reported regarding the musculoskeletal system. 23:40 Reassessment: Patient appears in no apparent distress at this time. No changes from ak1 previously documented assessment. Patient is alert, oriented x 3, equal unlabored respirations, skin warm/dry/pink. pt informed again of need for urine sample. pt resting with eyes closed. family at bedside. will continue to monitor. 05/21 01:27 Reassessment: Patient appears in no apparent distress at this time. No changes from ak1 previously documented assessment. Patient and/or family updated on plan of care and expected duration. Pain level reassessed. Patient is alert, oriented x 3, equal unlabored respirations, skin warm/dry/pink. pt resting and encouraged to give urine sample. Vital Signs: 05/20 20:56 BP 122 / 56; Pulse 90; Resp 17; Temp 101.0(O); Pulse Ox 97% on R/A; Weight 104.33 kg; ss Height 5 ft. 11 in. (180.34 cm); Pain 0/10; 22:22 BP 124 / 54; Pulse 76; Resp 16; Pulse Ox 96% on R/A; Pain 0/10; ak1 23:29 BP 108 / 57; Pulse 70; Resp 18; Pulse Ox 96% on R/A; ak1 05/21 00:12 BP 110 / 55; Pulse 67; Resp 18; Temp 97.6(O); Pulse Ox 95% on R/A; tl2 01:30 BP 125 / 72; Pulse 77; Resp 18; Pulse Ox 96% on R/A; tl2 03:16 BP 117 / 58; Pulse 64; Resp 18; Pulse Ox 95% on R/A; tl2 05/20 20:56 Body Mass Index 32.08 (104.33 kg, 180.34 cm) ED Course: 05/20 20:49 Patient arrived in ED. ss 20:50 Be Francisco MD is Attending Physician. gs 20:55 Triage completed. ss 20:56 Arm band placed on right wrist. ss 20:59 Sarah Mckinnon, RN is Primary Nurse. ak1 21:13 Chest Single View XRAY In Process Unspecified. EDMS 21:27 Radiology exam delayed due to Nurse states patient is not ready to come down for exam, nj will call when ready. 21:35 Inserted saline lock: 22 gauge in left wrist, using aseptic technique. Blood collected. ds4 21:48 Basic Metabolic Panel Sent. ds4 21:49 Troponin (emerg Dept Use Only) Sent. ds4 21:49 Protime (+inr) Sent. ds4 21:49 Procalcitonin Sent. ds4 21:49 Lipase Sent. ds4 21:49 LFT's Sent. ds4 21:49 Lactate Sent. ds4 21:49 CPK Sent. ds4 21:49 CBC with Diff Sent. ds4 21:49 Blood Culture Adult (2) Sent. ds4 21:50 Flu Sent. ds4 21:[address] via stretcher. vm2 22:03 CT Head C Spine In Process Unspecified. EDMS 22:21 Patient has correct armband on for positive identification. Placed in gown. Bed in low ak1 position. Call light in reach. Side rails up X 1. front desk monitor on. Pulse ox on. NIBP on. 05/21 02:05 CT Chest Abdomen Pelvis W/O Contrast In Process Unspecified. EDMS 02:48 Dave Chilel MD is Hospitalizing Provider. gs 03:48 No provider procedures requiring assistance completed. Patient admitted, IV remains in ak1 place. Administered Medications: 05/20 22:14 Drug: NS 0.9% 1000 ml Route: IV; Rate: 1 bolus; Site: left forearm; ak1 05/21 00:30 Follow up: IV Status: Completed infusion ak1 00:30 Drug: NS 0.9% 1000 ml Route: IV; Rate: 1 bolus; Site: left forearm; ak1 01:27 Follow up: IV Status: Completed infusion ak1 00:31 Drug: Cefepime 1 grams Route: IVPB; Rate: 200 ml/hr; Infused Over: 30 mins; Site: left ak1 forearm; 01:38 Follow up: IV Status: Completed infusion ak1 03:13 Drug: NS 0.9% 1000 ml Route: IV; Rate: 125 ml/hr; Site: left wrist; ak1 03:13 Follow up: IV Status: Infusion continued upon admission ak1 Point of Care Testing: Blood Glucose: 05/20 21:48 Blood Glucose: 124 mg/dL; ak1 Ranges: Outcome: 05/21 02:48 Decision to Hospitalize by Provider. gs 03:48 Admitted to Tele accompanied by tech, family with patient, via stretcher, room 210, ak1 with chart, Report called to Mitzy 03:48 Condition: stable 03:48 Instructed on the need for admit. 04:06 Patient left the ED. ak1 Signatures: Dispatcher [employer] EDFiordaliza Cade RN RN ss Swanson, Donovan ds4 Sarah Mckinnon RN RN de1 Kim Plata RN RN tl2 Ede Larose [facility] Be Francisco MD MD Corrections: (The following items were deleted from the chart) 00: 00:12 BP 110 / 55; Pulse 67bpm; Resp 18bpm; Pulse Ox 95% RA; tl2 tl2
--- NOTE | 2018-05-21 02:49 | EDPHYS ---
Physician Documentation [facility] Name: Gilmer Mercado Age: 83 yrs Sex: Male : 1935 Arrival Date: 05/20/2018 Time: 20:49 Bed 5 Private MD: ED Physician Be Francisco HPI: 05/21 02:57 This 83 yrs old Male presents to ER via EMS with complaints of Fever. gs 02:57 Onset: The symptoms/episode began/occurred yesterday. Modifying factors: there are no gs obvious modifying factors. Associated signs and symptoms: Pertinent positives: fall today felt dizzy hit head. Severity of symptoms: At their worst the symptoms were moderate in the emergency department the symptoms are unchanged. It is unknown whether or not the patient has had similar symptoms in the past. Historical: - Allergies: 05/20 20:56 No Known Allergies; ss - Home Meds: 21:14 levothyroxine oral 350 mcg tablet daily [Active]; furosemide 40 mg Oral tab 1 tab once ak1 daily [Active]; tamsulosin 0.4 mg Oral cp24 1 cap once daily [Active]; Humulin R 100 unit/mL soln 500 mL 10-20 units daily [Active]; Toprol XL 25 mg Oral Tb24 1 tab twice a day [Active]; allopurinol 100 mg Oral tab [Active]; gabapentin 300 mg Oral cap 2 caps twice a day [Active]; ranitidine HCl 150 mg Oral tab [Active]; Eliquis 2.5 mg oral tab 1 tab 2 times per day [Active]; simvastatin 20 mg Oral tab 1 tab once daily [Active]; finasteride 5 mg Oral tab 1 tab once daily [Active]; amiodarone 200 mg Oral tab 1 tab once daily [Active]; calcitrol [Active]; - PMHx: 20:56 BPH; Diabetes - IDDM; High Cholesterol; PNUEMONIA; Hypertension; Pacemaker; ss - PSHx: 20:56 Thyroidectomy; CABG; Heart stents; HEART VALVE REPLACEMENT; DEFIBRILLATOR; ss - Immunization history:: Adult Immunizations up to date. - Social history:: Smoking status: Patient/guardian denies using tobacco. - Ebola Screening: : Patient denies exposure to infectious person Patient denies travel to an Ebola-affected area in the 21 days before illness onset. ROS: 05/21 02:57 Constitutional: Positive for fatigue, fever, malaise. gs All other systems are negative. Exam: 02:57 Head/Face: Normocephalic, atraumatic. Eyes: Pupils equal round and reactive to light, gs extra-ocular motions intact. Lids and lashes normal. Conjunctiva and sclera are non-icteric and not injected. Cornea within normal limits. Periorbital areas with no swelling, redness, or edema. ENT: Nares patent. No nasal discharge, no septal abnormalities noted. Tympanic membranes are normal and external auditory canals are clear. Oropharynx with no redness, swelling, or masses, exudates, or evidence of obstruction, uvula midline. Mucous membranes moist. Neck: Trachea midline, no thyromegaly or masses palpated, and no cervical lymphadenopathy. Supple, full range of motion without nuchal rigidity, or vertebral point tenderness. No Meningismus. Chest/axilla: Normal chest wall appearance and motion. Nontender with no deformity. No lesions are appreciated. Cardiovascular: Regular rate and rhythm with a normal S1 and S2. No gallops, murmurs, or rubs. Normal PMI, no JVD. No pulse deficits. Respiratory: Lungs have equal breath sounds bilaterally, clear to auscultation and percussion. No rales, rhonchi or wheezes noted. No increased work of breathing, no retractions or nasal flaring. Abdomen/GI: Soft, non-tender, with normal bowel sounds. No distension or tympany. No guarding or rebound. No evidence of tenderness throughout. Back: No spinal tenderness. No costovertebral tenderness. Full range of motion. Skin: Warm, dry with normal turgor. Normal color with no rashes, no lesions, and no evidence of cellulitis. MS/ Extremity: Pulses equal, no cyanosis. Neurovascular intact. Full, normal range of motion. Neuro: Awake and alert, GCS 15, oriented to person, place, time, and situation. Cranial nerves II-XII grossly intact. Motor strength 5/5 in all extremities. Sensory grossly intact. Cerebellar exam normal. Normal gait. 02:57 Constitutional: The patient appears alert, awake. 02:57 ECG was reviewed by the Attending Physician. Vital Signs: 05/20 20:56 BP 122 / 56; Pulse 90; Resp 17; Temp 101.0(O); Pulse Ox 97% on R/A; Weight 104.33 kg; ss Height 5 ft. 11 in. (180.34 cm); Pain 0/10; 22:22 BP 124 / 54; Pulse 76; Resp 16; Pulse Ox 96% on R/A; Pain 0/10; ak1 23:29 BP 108 / 57; Pulse 70; Resp 18; Pulse Ox 96% on R/A; ak1 05/21 00:12 BP 110 / 55; Pulse 67; Resp 18; Temp 97.6(O); Pulse Ox 95% on R/A; tl2 01:30 BP 125 / 72; Pulse 77; Resp 18; Pulse Ox 96% on R/A; tl2 03:16 BP 117 / 58; Pulse 64; Resp 18; Pulse Ox 95% on R/A; tl2 05/20 20:56 Body Mass Index 32.08 (104.33 kg, 180.34 cm) ss MDM: 05/20 20:53 Patient medically screened. 05/21 02:57 Differential diagnosis: viral Infection, bacterial infection, bronchitis, pneumonia gs UTI. Data reviewed: vital signs, nurses notes. Data reviewed: lab test result(s), EKG, radiologic studies. Counseling: I had a detailed discussion with the patient and/or guardian regarding: the historical points, exam findings, and any diagnostic results supporting the discharge/admit diagnosis, the need for further work-up and treatment in the hospital. Response to treatment: the patient's symptoms have markedly improved after treatment, and as a result, I will admit patient. Physician consultation: Dave Chilel MD and will see patient in ED. 05/20 20:54 Order name: Basic Metabolic Panel; Complete Time: 23:44 05/20 20:54 Order name: Blood Culture Adult (2) 05/20 20:54 Order name: CBC with Diff; Complete Time: 22:18 05/20 20:54 Order name: CPK; Complete Time: 23:44 05/20 20:54 Order name: Lactate; Complete Time: 22:18 05/20 20:54 Order name: LFT's; Complete Time: 23:44 05/20 20:54 Order name: Lipase; Complete Time: 23:44 05/20 20:54 Order name: Procalcitonin; Complete Time: 23:44 05/20 20:54 Order name: Protime (+inr); Complete Time: 22:18 05/20 20:54 Order name: Troponin (emerg Dept Use Only); Complete Time: 23:44 05/20 20:54 Order name: Urine Microscopic Only; Complete Time: 02:28 05/20 20:54 Order name: Flu; Complete Time: 23:44 05/21 00:51 Order name: Lactate Sepsis 2 HR Follow-up; Complete Time: 01:43 EDMS 05/21 01:45 Order name: Urine Dipstick--Ancillary (enter results); Complete Time: 02:28 em1 05/20 20:54 Order name: Chest Single View XRAY; Complete Time: 22:18 05/20 20:54 Order name: Accucheck; Complete Time: 22:34 05/20 20:54 Order name: Cardiac monitoring; Complete Time: 22:22 05/20 20:54 Order name: EKG - Nurse/Tech; Complete Time: 22:22 05/20 20:54 Order name: IV Saline Lock - Large Bore; Complete Time: 21:48 05/20 20:54 Order name: Labs collected and sent; Complete Time: 21:48 05/20 20:54 Order name: O2 Per Protocol; Complete Time: 21:48 05/20 20:54 Order name: O2 Sat Monitoring; Complete Time: 21:48 05/20 20:54 Order name: Urine Dipstick-Ancillary (obtain specimen); Complete Time: 01:38 05/20 20:54 Order name: CT Head C Spine; Complete Time: 22:18 05/21 01:44 Order name: CT Chest Abdomen Pelvis W/O Contrast gs EC:57 Rate is 74 beats/min. Rhythm is regular. DC interval is normal. QRS interval is gs prolonged. QT interval is prolonged. T waves are Normal. No ST changes noted. Clinical impression: Abnormal EKG without significant change. Interpreted by me. Administered Medications: 05/20 22:14 Drug: NS 0.9% 1000 ml Route: IV; Rate: 1 bolus; Site: left forearm; ak1 05/21 00:30 Follow up: IV Status: Completed infusion ak 00:30 Drug: NS 0.9% 1000 ml Route: IV; Rate: 1 bolus; Site: left forearm; ak1 01:27 Follow up: IV Status: Completed infusion ak1 00:31 Drug: Cefepime 1 grams Route: IVPB; Rate: 200 ml/hr; Infused Over: 30 mins; Site: left ak1 forearm; 01:38 Follow up: IV Status: Completed infusion ak1 03:13 Drug: NS 0.9% 1000 ml Route: IV; Rate: 125 ml/hr; Site: left wrist; ak1 03:13 Follow up: IV Status: Infusion continued upon admission ak1 Point of Care Testing: Blood Glucose: 05/20 21:48 Blood Glucose: 124 mg/dL; ak1 Ranges: Critical Glucose Levels:Adult <50 mg/dl or >400 mg/dl <40 mg/dl or >180 mg/dl Disposition: 05/21/18 02:48 Hospitalization ordered by Dave Chilel for Inpatient Admission. Preliminary diagnosis are Lobar pneumonia, unspecified organism, Sepsis, unspecified organism. - Bed requested for Telemetry/MedSurg (Inpatient). - Status is Inpatient Admission. ak1 - Condition is Stable. - Problem is new. - Symptoms have improved. UTI on Admission? No Critical care time excluding procedures: 05/21 02:57 Critical care time: Bedside Care: 10 minutes, Consultation: 10 minutes, Family gs Intervention: 10 minutes. Total time: 30 minutes Signatures: Dispatcher [employer] EDMS Fiordaliza Mills RN RN Sarah Mckinnon RN RN ak1 Oly Rosa RN RN Be Francisco MD MD Corrections: (The following items were deleted from the chart) 03:21 02:48 Hospitalization Ordered by Dave Chilel MD for Inpatient Admission. Preliminary cg diagnosis is Lobar pneumonia, unspecified organism; Sepsis, unspecified organism. Bed requested for Telemetry/MedSurg (Inpatient). Status is Inpatient Admission. Condition is Stable. Problem is new. Symptoms have improved. UTI on Admission? No. gs 04:06 03:21 05/21/2018 02:48 Hospitalization Ordered by Dave Chilel MD for Inpatient ak1 Admission. Preliminary diagnosis is Lobar pneumonia, unspecified organism; Sepsis, unspecified organism. Bed requested for Telemetry/MedSurg (Inpatient). Status is Inpatient Admission. Condition is Stable. Problem is new. Symptoms have improved. UTI on Admission? No. cg
[2018-05-21] MEDS ORDERED: ALBUTEROL 2.5 MG/3 ML NEB SOL NEB PRN (03:47)
[2018-05-21] MEDS ORDERED: ONDANSETRON 4 MG/2 ML VIAL IV PRN (03:47)
[2018-05-21] MEDS ORDERED: ACETAMINOPHEN 500 MG TAB PO PRN (03:47)
[2018-05-21] MEDS ORDERED: IPRATROPIUM BROM 0.5MG/2.5ML NEB PRN (03:47)
[2018-05-21] MEDS: NA CHLORIDE 0.9% 1,000 ML IV SCH ×2 (04:00→14:48)
--- NOTE | 2018-05-21 04:07 | P.HP ---
Certification for Inpatient Patient admitted to: Inpatient With expected LOS: >2 Midnights Practitioner: I am a practitioner with admitting privileges, knowledge of patient current condition, hospital course, and medical plan of care. Services: Services provided to patient in accordance with Admission requirements found in Title 42 Section 412.3 of the Code of Federal Regulations Patient History Date of Service: 05/21/18 Reason for admission: Sepsis History of Present Illness: Mr Mercado is an 83-year-old male with history of multiple medical problems including CAD, status post CABG and pacemaker placement, hypertension, CKD, chronic systolic CHF, who was doing well until last night when he become weak. He stated that went to the restroom, on his way he fell. He was dizzy and was unable to stand up. According to his he has had chills all day long yesterday. Denied shortness of breath or cough. In ER he had fever 101.0 F, lab work remarkable for leukocytosis, elevated lactate and procalcitonin, worsening creatinine compared with his baseline. CT chest remarkable for right lower lobe infiltrate consistent with pneumonia. The patient has also left facial droop, which is new according to the patient. He denied any weakness, tingling or numbness in any of the left limbs. CT head showed not acute abnormality. Allergies No Known Allergies Allergy (Verified 05/21/18 04:31) Home medications list reviewed: Yes Home Medications: Apixaban [Eliquis *] 2.5 mg PO BID 01/23/16 Finasteride [Proscar*] 5 mg PO DAILY 01/23/16 Gabapentin [Gralise] 600 mg PO BID 01/23/16 Metoprolol Succinate [Toprol Xl*] 25 mg PO BID 01/23/16 Pantoprazole [Protonix Tab*] 40 mg PO DAILY 01/23/16 Simvastatin 20 mg PO DAILY 01/23/16 Tamsulosin [Flomax*] 0.4 mg PO DAILY 01/23/16 Allopurinol [Zyloprim*] 100 mg PO DAILY 06/13/17 Amiodarone HCl [Pacerone] 200 mg PO [id number] 06/13/17 Furosemide [Lasix*] 80 mg PO BID 06/13/17 Insulin Regular, Human [Humulin R U-500 Kwikpen] 0 unit SQ TID 06/13/17 Levothyroxine [Synthroid*] 0.02 mg PO [id number] 06/13/17 Potassium Chloride 20 meq PO DAILY 06/13/17 Pregabalin [Lyrica*] 75 mg PO BEDTIME 06/13/17 - Past Medical/Surgical History Diabetic: Yes -: Diabetes mellitus type 2 -: Hypertension -: Hyperlipidemia -: Aortic stenosis requiring percutaneous replacement, December 2015 -: 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 -: Urinary retention -: BPH -: Gout -: Hypothyroidism -: GERD -: Atrial fibrillation -: Thyroidectomy -: CABG x4 vessels -: 2 cardiac stents -: Aortic valve replacement percutaneously -: Cholecystectomy Psychosocial/ Personal History: He is 59 years, has 3 children, 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 - Family History Father -: Heart disease Brother -: Heart disease - Social History Smoking Status: Never smoker Alcohol use: No CD- Drugs: No Caffeine use: Yes Place of Residence: Home Review of Systems 10-point ROS is otherwise unremarkable Physical Examination - Physical Exam General: Alert, In no apparent distress HEENT: Atraumatic, PERRLA, Mucous membr. moist/pink, EOMI, Sclerae nonicteric Neck: Supple, 2+ carotid pulse no bruit, No LAD, Without JVD or thyroid abnormality Respiratory: Normal air movement, Crackles/rales (Right base crackles) Cardiovascular: Regular rate/rhythm, Normal S1 S2 Gastrointestinal: Normal bowel sounds, No tenderness Musculoskeletal: No tenderness Integumentary: No rashes Neurological: Normal speech, Normal strength at 5/5 x4 extr, Normal tone, Normal affect, Other (Left facial droop) Lymphatics: No axilla or inguinal lymphadenopathy - Studies Laboratory Data (last 24 hrs) 05/20/18 21:35: PT 15.1 H, INR 1.28 05/20/18 21:35: WBC 13.1 H, Hgb 13.4 L, Hct 40.4, Plt Count 136 L 05/20/18 20:46: Sodium 133 L, Potassium 4.4, BUN 60 H, Creatinine 2.70 H, Glucose 130 H, Total Bilirubin 0.7, AST 28, ALT 33, Alkaline Phosphatase 89, Lipase 376 Microbiology Data (last 24 hrs): 05/20/18 21:45 Nasopharnyx Influenza Type A Antigen Screen - Final 05/20/18 21:45 Nasopharnyx Influenza Type B Antigen Screen - Final Assessment and Plan - Problems (Diagnosis) (1) Acute on chronic renal failure Current Visit: Yes Status: Acute Qualifiers: Acute renal failure type: unspecified Chronic kidney disease stage: stage 4 (severe) Qualified Code(s): N17.9 - Acute kidney failure, unspecified; N18.4 - Chronic kidney disease, stage 4 (severe) (2) Sepsis Current Visit: Yes Status: Acute Qualifiers: Sepsis type: sepsis due to unspecified organism Qualified Code(s): A41.9 - Sepsis, unspecified organism (3) Pneumonia Onset Date: 01/24/16 Current Visit: No Status: Acute Qualifiers: Pneumonia type: due to unspecified organism Laterality: right Lung location: lower lobe of lung Qualified Code(s): J18.9 - Pneumonia, unspecified organism (4) Coronary artery disease Onset Date: 01/24/16 Current Visit: No Status: Chronic Qualifiers: Coronary Disease-Associated Artery/Lesion type: unspecified vessel or lesion type [place] vs. transplanted heart: unspecified whether [place] or transplanted heart Associated angina: angina presence unspecified Qualified Code(s): I25.10 - Atherosclerotic heart disease of [place] coronary artery without angina pectoris (5) Diabetes mellitus Onset Date: 01/24/16 Current Visit: No Status: Chronic Qualifiers: Diabetes mellitus type: type 2 Diabetes mellitus emt intermediate insulin use: with prison use Diabetes mellitus complication status: without complication Qualified Code(s): E11.9 - Type 2 diabetes mellitus without complications (6) Atrial fibrillation Onset Date: 01/24/16 Current Visit: No Status: Suspected Qualifiers: Atrial fibrillation type: unspecified Qualified Code(s): I48.91 - Unspecified atrial fibrillation - Plan The patient will be admitted to the hospital due to sepsis, possible secondary to right lower lobe pneumonia. Will order empiric treatment with Zosyn for potential aspiration process. Check swallow evaluation by speech therapy. Unfortunately patient cannot have MRI to rule out acute CVA, since he has ICD placed. He may benefit of a Neurology consult for more focused evaluation. - Advance Directives Does patient have a Living Will: No Does patient have a Durable POA for Healthcare: Yes - Code Status/Comfort Care Code Status Assessed: Yes Code Status: Full Code
[2018-05-21] MEDS ORDERED: PIPER/TAZO/NS 3.375gm 3.375 GM/100 ML BAG ONE (05:32)
[2018-05-21] MEDS: INSULIN -REGULAR HUMAN 50 UNIT/0.5 ML ML SQ SCH ×5 (06:00→17:51)
[2018-05-21] MEDS: PIPER/TAZO/NS 3.375gm 3.375 GM/100 ML BAG IVPB SCH ×3 (06:28→16:56)
[2018-05-21 08:04] VITALS: BMI 32.1
--- NOTE | 2018-05-21 08:25 | RAD REPORT ---
EXAM DESCRIPTION: CT - Chest Abd Pelvis Wo Con - 05/21/2018 2:50 am CLINICAL HISTORY: Chest and abdominal pain status post fall COMPARISON: None TECHNIQUE: Computed axial tomography of the chest, abdomen and pelvis was obtained. Oral contrast wa s given. IV contrast was not requested. Preliminary report was generated by [employer] and re viewed prior to dictation All CT scans are performed using dose optimization technique as appropriate and may include automated exposure control or mA/KV adjustment according to patient size. FINDINGS: The evaluation of mediastinum, josé, vessels and solid organs is limited secondary to the lack of IV contrast administration A mediastinal hematoma is not seen. A pleural effusion is not present. A pericardial effusion is not seen. A pulmonary contusion is not present. Mild right lower lobe atelectasis The liver, spleen, pancreas, adrenals, bladder and kidneys do not demonstrate a traumatic injury. There is no evidence of diverticulitis. The prostate gland is mildly to moderately enlarged. Small in guinal hernias contain fat. A 3.5 centimeter low-density mass extends off the right kidney. It is non specific without IV contrast but probably represents a cyst IMPRESSION: No acute traumatic injury involving the chest, abdomen or pelvis is seen
[2018-05-21] MEDS ORDERED: ENOXAPARIN 40 MG/0.4 ML SQ SCH ×2 (09:00)
[2018-05-21] MEDS ORDERED: ENOXAPARIN 30 MG/0.3 ML SQ SCH (09:00)
--- NOTE | 2018-05-21 12:34 | EKG ---
Test Date: 2018-05-20 Test Time: 22:20:43 Focusing Machine Operator: LUCIA MEASUREMENT RESULTS: Intervals: Rate: 74 IL: 140 QRSD: 176 QT: 498 QTc: 552 [place]: P: 57 IL: 140 QRS: 266 T: 88 INTERPRETIVE STATEMENTS: Electronic ventricular pacemaker Compared to ECG 01/24/2016 07:14:54 Sinus rhythm no longer present Ventricular premature complex(es) no longer present First degree AV block no longer present Left bundle-branch block no longer present Electronically Signed On 05-21-18 12:32:52 ASSISTANT SIGNAL MAINTAINER by Ori Rojo
--- NOTE | 2018-05-21 14:25 | PN ---
Subjective: The patient seen and examined, chart reviewed, and case discussed with RN. The patient states his breathing is somewhat improved. No other significant complaints. Review of Systems: Negative except as above. Medications: List reviewed. Code Status: Full code. Physical Examination: Vital Signs: Temperature 97.4, heart rate 90, blood pressure 121/74, respirations 18, O2 98% on room air. General: Awake, alert, oriented x3, elderly male, ill appearing. CV: S1 and S2. Peripheral pulses present. Regular rate and rhythm. Respiratory: Diminished breath sounds. No wheezing or stridor. No use of accessory muscles. Gastrointestinal: Abdomen is soft, nontender, nondistended. Positive bowel sounds. No guarding or rigidity. Extremities: No clubbing, cyanosis, or edema. Neurologic: Nonfocal. Laboratory Data: Glucose 139 and 178. Lactate 0.9. CBC pending. Blood cultures pending. Influenza screen negative. CT scan of chest, abdomen and pelvis shows no acute traumatic injury involving the chest, abdomen, or pelvis. Prostate gland [id number] enlarged, 3.5 cm low-density mass extends off the right kidney probably represents a cyst. CT cervical spine shows no acute intracranial abnormalities, cervical fracture not visualized. Chest x-ray , no acute abnormalities. Assessment And Plan: An 83-year-old male with: 1. Sepsis. The patient did have elevated lactate and procalcitonin level. Repeat lactate level has improved. White count elevated secondary to pneumonia. We will continue with antibiotics and follow up on culture results. 2. Pjhhq-nv-tlnshyx kidney injury with stage 4 chronic kidney disease. We will continue with IV fluids and monitor creatinine level. 3. Right lower lobe pneumonia. Continue antibiotics. Follow up blood cultures. 4. Coronary artery disease, [place] artery and [place] heart without angina, stable. 5. Diabetes mellitus type 2 with long-term use of insulin with hyperglycemia. Continue sliding scale insulin and Accu-Cheks. 6. Atrial fibrillation, chronic. 7. Mixed hyperlipidemia. Statin. 8. Status post aortic valve replacement, percutaneous. 9. Benign prostatic hyperplasia. 10. Hypothyroidism. Continue Synthroid. 11. Gout. 12. Gastroesophageal reflux disease. PPI. 13. Right kidney mass, most likely representing cyst. We will need repeat imaging in 3 months. 14. Facial assymetry: Likely [place] palsy Plan: We will continue current treatment. Follow up on cultures. Sepsis is improving. Anticipate discharge in the next 48 to 72 hours depending on clinical response. SA/MODL Voice ID: [id number] Report ID: [id number] MTDD
[2018-05-21] MEDS: ACYCLOVIR 400 MG TABLET PO SCH ×2 (14:48→20:09)
[2018-05-21] MEDS ORDERED: VANCOMYCIN 1.75 GM in NA CHLORIDE 0.9% 500 ML IVPB SCH (15:00)
[2018-05-21] MEDS ORDERED: METHYLPREDNISOLONE 40 MG INJ IV ONE (15:08)
[2018-05-21] MEDS ORDERED: VANCOMYCIN 2.5 GM in NA CHLORIDE 0.9% 500 ML IVPB ONE (16:00)
[2018-05-21] MEDS: VANCOMYCIN 1.75 GM in NA CHLORIDE 0.9% 500 ML IVPB SCH (16:56)
[2018-05-21] MEDS: RANITIDINE 150 MG TABLET PO SCH (20:08)
[2018-05-21] MEDS: ATORVASTATIN 10 MG TAB PO SCH (20:08)
[2018-05-21] MEDS: APIXABAN 2.5 MG TABLET PO SCH (20:09)
[2018-05-21] MEDS: GABAPENTIN 300 MG CAP PO SCH (20:09)
--- NOTE | 2018-05-21 21:24 | P.CNS ---
Date of Consult: 05/21/18 Reason for Consult: KORI Requesting Physician: Max Mari Chief Complaint: Sepsis History of Present Illness: Mr Mercado is an 83-year-old male with history of multiple medical problems including CAD, status post CABG and pacemaker placement, hypertension, CKD, chronic systolic CHF, who was doing well until last night when he become weak. He stated that went to the restroom, on his way he fell. He was dizzy and was unable to stand up. According to his he has had chills all day long yesterday. Denied shortness of breath or cough. In ER he had fever 101.0 F, lab work remarkable for leukocytosis, elevated lactate and procalcitonin, worsening creatinine compared with his baseline. CT chest remarkable for right lower lobe infiltrate consistent with pneumonia. The patient has also left facial droop, which is new according to the patient. He denied any weakness, tingling or numbness in any of the left limbs. CT head showed not acute abnormality. 02:57 This 83 yrs old Male presents to ER via EMS with complaints of Fever. gs 02:57 Onset: The symptoms/episode began/occurred yesterday. Modifying factors: there are no gs obvious modifying factors. Associated signs and symptoms: Pertinent positives: fall today felt dizzy hit head. Severity of symptoms: At their worst the symptoms were moderate in the emergency department the symptoms are unchanged. It is unknown whether or not the patient has had similar symptoms in the past. Allergies No Known Allergies Allergy (Verified 05/21/18 04:31) Home medications list reviewed: Yes Home Medications: Allopurinol [Zyloprim*] 1 tab PO BID 05/21/18 Apixaban [Eliquis *] 1 tab PO BID 05/21/18 Bumetanide [Bumex*] 2 mg PO BID 05/21/18 Cholecalciferol (Vitamin D3) [Vitamin D 1000 Iu Tab*] 1 tab PO BEDTIME 05/21/18 Clopidogrel Bisulfate [Clopidogrel] 1 tab PO DAILY 05/21/18 Finasteride [Proscar*] 1 tab PO DAILY 05/21/18 Gabapentin 300 mg PO BID 05/21/18 Insulin Regular, Human [Humulin R U-500 Kwikpen] 20 - 35 units SQ TID 05/21/18 Levothyroxine [Synthroid] 225 mcg PO DAILY 05/21/18 Metoprolol Tartrate [Lopressor] 25 mg PO DAILY 05/21/18 Potassium Chloride 20 meq PO BEDTIME 05/21/18 Ranitidine [Zantac*] 1 tab PO BEDTIME 05/21/18 Simvastatin 1 tab PO DAILY 05/21/18 Spironolactone 1 tab PO DAILY 05/21/18 Tamsulosin [Flomax*] 1 tab PO DAILY 05/21/18 - Past Medical/Surgical History Diabetic: Yes -: Diabetes mellitus type 2 -: Hypertension -: Hyperlipidemia -: Aortic stenosis requiring percutaneous replacement, December 2015 -: 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 -: Urinary retention -: BPH -: Gout -: Hypothyroidism -: GERD -: Atrial fibrillation -: Thyroidectomy -: CABG x4 vessels -: 2 cardiac stents -: Aortic valve replacement percutaneously -: Cholecystectomy Psychosocial/ Personal History: He is 59 years, has 3 children, 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. - Family History Father Medical History: Heart disease Brother Medical History: Heart disease - Social History Alcohol use: No CD- Drugs: No Caffeine use: Yes Place of Residence: Home Review of Systems 10-point ROS is otherwise unremarkable General: Weakness, Malaise Respiratory: Cough Genitourinary: Urgency, Incontinence Physical Examination Temp Pulse Resp BP Pulse Ox 97.7 F 69 16 152/70 H 98 05/21/18 16:00 05/21/18 16:00 05/21/18 16:00 05/21/18 16:00 05/21/18 16:00 General: Oriented x3, Cooperative HEENT: Atraumatic Neck: Supple Respiratory: Clear to auscultation bilaterally Cardiovascular: No edema, Regular rate/rhythm Gastrointestinal: Soft and benign, Non-distended Musculoskeletal: No clubbing Integumentary: No rashes, No cyanosis Neurological: Normal speech Laboratory Data (last 24 hrs) 05/20/18 21:35: PT 15.1 H, INR 1.28 05/20/18 21:35: WBC 13.1 H, Hgb 13.4 L, Hct 40.4, Plt Count 136 L 05/20/18 20:46: Sodium 133 L, Potassium 4.4, BUN 60 H, Creatinine 2.70 H, Glucose 130 H, Total Bilirubin 0.7, AST 28, ALT 33, Alkaline Phosphatase 89, Lipase 376 Imagings Data: EXAM DESCRIPTION: CT - Chest Abd Pelvis Wo Con - 05/21/2018 2:50 am CLINICAL HISTORY: Chest and abdominal pain status post fall COMPARISON: None TECHNIQUE: Computed axial tomography of the chest, abdomen and pelvis was obtained. Oral contrast was given. IV contrast was not requested. Preliminary report was generated by [employer] and reviewed prior to dictation All CT scans are performed using dose optimization technique as appropriate and may include automated exposure control or mA/KV adjustment according to patient size. FINDINGS: The evaluation of mediastinum, josé, vessels and solid organs is limited secondary to the lack of IV contrast administration A mediastinal hematoma is not seen. A pleural effusion is not present. A pericardial effusion is not seen. A pulmonary contusion is not present. Mild right lower lobe atelectasis The liver, spleen, pancreas, adrenals, bladder and kidneys do not demonstrate a traumatic injury. There is no evidence of diverticulitis. The prostate gland is mildly to moderately enlarged. Small inguinal hernias contain fat. A 3.5 centimeter low- density mass extends off the right kidney. It is nonspecific without IV contrast but probably represents a cyst IMPRESSION: No acute traumatic injury involving the chest, abdomen or pelvis is seen Conclusions/Impression: A/ KORI in the setting of hypovolemia. CKD III with proteinuria. HTN with CKD. DM II with CKD. BPH with LUTS. Urge Incontinence. Right renal mass? Cyst? Gout. Hypocalcemia. Sepsis. RLL PNA. P/ Continue current POC and Medications. Agree with NS. Agree with abx. Increase Flomax BID. No NSAIDs. AM labs. Daily weight. Will repeat a renal ultrasound in 3-6 months. Thank you kindly for the consultation.
--- NOTE | 2018-05-21 23:37 | CON ---
Reason For Consultation: Consultation called because of left facial drooping. History Of Present Illness: Mr. Mercado is an 83-year-old patient with multiple medical problems. He was admitted to the hospital on 05/20/2018, with sepsis and pneumonia. The patient's and the pa aliza noted he developed left facial drooping around yesterday prior to his admission. It is very garcia btle in the lower corner of the mouth and very subtle involving the left eye. There was no numbness in the face and his left hand showed no weakness, no weakness in his left leg. He has a pacemaker. He is unable to get an MRI of the brain, did have a head CT scan along with cervical spine CT scan th at study showed no acute ischemic or hemorrhagic change. 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 Since onset, the patient said his symptoms hav e not changed much, although he believes potentially it might have improved somewhat. Past Medical History: Type 2 diabetes, hypertension, dyslipidemia, gout, hypothyroidism, benign pros tatic hypertrophy, gastroesophageal reflux disease, atrial fibrillation. Surgical History: Coronary artery bypass grafting, 4 vessel; aortic stenosis with percutaneous repla cement in December 2015; thyroidectomy; cholecystectomy. Family History: Positive for heart disease in father and brother. Social History: No alcohol, tobacco, or IV drug use. Allergies: NO KNOWN DRUG ALLERGIES. Medications: Eliquis 2.5 mg twice daily, Proscar 5 mg daily, Gralise 600 mg twice daily, Toprol-XL 2 5 mg twice daily, Protonix 40 mg daily, simvastatin 20 mg daily, Flomax 0.4 mg daily, allopurinol 100 mg daily, amiodarone 200 mg daily, furosemide 80 mg twice daily, Humalog subcutaneously 3 times hao y, Synthroid 0.025 mg daily, potassium 20 mEq daily, Lyrica 75 mg at bedtime. Review of Systems: Aside from indicated above, no new findings and no recent nausea, vomiting, myalgias, arthralgias, he adache, weight change, rash, psychiatric complaints, gastrointestinal or genitourinary issues. Physical Examination: Vital Signs: Blood pressure 138/62, pulse 74, respiratory rate 16, temperature 97.8, oxygen saturati on 96% on room air, weight of 230 pounds, height 5 feet 11 inches. General: Mr. Mercado is resting comfortably in bed. Lungs: Decreased breath sounds bilaterally. Abdomen: Soft. No significant edema, cyanosis or clubbing in the extremities. 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 Slight decrease in eye closing on the left. Otherwise, his forehead does wrinkle fairly evenly across the top. He has a symmetric hearin g bilaterally. Denies any taste abnormalities and the other cranial nerves are intact. His motor ex amination 5/5 proximally and distally in upper and lower extremities. Sensation is stocking-glove lo ss to light touch temperature in arms, legs. Reflexes depressed at 1+ trace in upper and lower extre mities and symmetric. Coordination intact in upper and lower extremities. Laboratory Studies: White blood cell count 13.1, hemoglobin 13.4, hematocrit 40.4, platelets 136, IN R 1.28. Blood sugars ranged from 139 to 257. Lactic acid level is 0.9. Procalcitonin slightly elev ated at 0.8. Note, lactic acid level earlier yesterday was elevated at 2.2. Creatinine 2.7. Urinal ysis is unremarkable except slightly low specific gravity of 1.005. Chest x-ray shows no acute abnor malities. Chest, abdomen, and pelvis CT scan shows no acute trauma in the chest. There is a small i nguinal hernia containing fat and 3.5 cm low-density mass in the right kidney. Assessment: Mr. 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 Plan: 1.We will start acyclovir 400 mg 3 times daily for 7 days. 2.Gabapentin 300 mg twice daily . 3.Continue with Eliquis 2.5 mg twice daily for DVT prophylaxis. 4.Stroke risk reduction with Lipitor 10 mg at bedtime along with the Eliquis 2.5 mg twice daily, giv en his fibrillation. Also, continue with antibiotics per primary team. Continue with thyroid medica tions per primary team. 5.The patient will be followed after discharge in [address] Monsalve's office. SAVANNA/JOLIE Voice ID: [id number] Report ID: [id number]
[2018-05-22] MEDS: PIPER/TAZO/NS 3.375gm 3.375 GM/100 ML BAG IVPB SCH ×5 (00:01→23:22)
[2018-05-22] MEDS: INSULIN -REGULAR HUMAN 50 UNIT/0.5 ML ML SQ SCH ×7 (00:02→22:03)
[2018-05-22] MEDS ORDERED: GLUCAGON 1 MG/VIAL IM PRN (00:23)
[2018-05-22] MEDS ORDERED: D50W 25 GM/50 ML SYRINGE IV PRN (00:23)
[2018-05-22 01:32] LABS: Urine Appearance CLEAR; Urine Bilirubin NEGATIVE (NEG); Urine Blood NEGATIVE (NEG); Urine Color YELLOW; Urine Glucose 3+ (NEG); Urine Protein NEGATIVE (NEG); Urine Specific Gravity 1.015 (1.005-1.030); Urine pH 5.5 (5.0-7.0)
[2018-05-22] MEDS: NA CHLORIDE 0.9% 1,000 ML IV SCH ×4 (01:46→17:24)
[2018-05-22 01:50] LABS: UR MICROALBUMIN 2.9 mg/dL (< 1.9)
[2018-05-22 02:00] LABS: Urine Bacteria <20 /HPF (NONE SEEN); Urine Culture Reflex Order NOT NEEDED
[2018-05-22 02:01] LABS: Urine RBC <5 /HPF (NONE SEEN)
[2018-05-22 05:44] LABS: Absolute Lymphocytes (CBC) 1.3 K/uL (0.7-4.9); Absolute Monocytes 0.3 K/uL (0.1-1.3); Absolute Neutrophil 6.3 K/uL (1.8-8.0); Basophils % 0.2 % (0-1.3); Hematocrit 38.4 % (39.6-49.0); Lymphocytes % 16.7 % (15.3-44.8); MCH 28.6 pg (27.0-35.0); MCV 87.4 fL (80-100); Monocytes % 3.3 % (3.3-12.3)
[2018-05-22] MEDS: LEVOTHYROXINE SOD 0.075 MG TAB PO SCH (05:47)
[2018-05-22 07:41] LABS: Magnesium 2.7 mg/dL (1.8-2.4); Phosphorus 3.6 mg/dL (2.5-4.9); Potassium 4.8 mmol/L (3.5-5.1); Uric Acid 4.6 mg/dL (3.5-7.2)
[2018-05-22] MEDS ORDERED: TAMSULOSIN 0.4 MG SR CAP PO SCH (09:00)
[2018-05-22] MEDS ORDERED: CLOPIDOGREL BISULFATE PO SCH (09:00)
[2018-05-22] MEDS: APIXABAN 2.5 MG TABLET PO SCH ×2 (10:41→22:04)
[2018-05-22] MEDS: GABAPENTIN 300 MG CAP PO SCH ×2 (10:41→22:08)
[2018-05-22] MEDS: FINASTERIDE 5 MG TAB PO SCH (10:41)
[2018-05-22] MEDS: ACYCLOVIR 400 MG TABLET PO SCH ×3 (10:41→22:10)
[2018-05-22] MEDS: TAMSULOSIN 0.4 MG SR CAP PO SCH ×2 (10:41→22:04)
--- NOTE | 2018-05-22 20:46 | P.PN ---
Date of Service: 05/22/18 Vital Signs Temp Pulse Resp BP Pulse Ox 97 F 61 20 177/91 H 98 05/22/18 16:00 05/22/18 16:00 05/22/18 16:00 05/22/18 16:00 05/22/18 16:00 Medications Acetaminophen (Tylenol -Extra Strength) 500 mg PO Q4HP PRN PRN Reason: [id number] Stop: 06/20/18 03:48 Acyclovir (Zovirax -Tab) 400 mg PO TID LUZ Stop: 05/28/18 14:01 Last Admin: 05/22/18 15:14 Dose: 400 mg Albuterol Sulfate (Proventil 0.083% Neb Soln) 2.5 mg NEB [id number] PRN PRN Reason: SHORTNESS OF BREATH Stop: 06/20/18 03:48 Apixaban (Eliquis) 2.5 mg PO BID LUZ Stop: 06/20/18 21:01 Last Admin: 05/22/18 10:41 Dose: 2.5 mg Atorvastatin Calcium (Lipitor) 10 mg PO BEDTIME LUZ Stop: 06/20/18 21:01 Last Admin: 05/21/18 20:08 Dose: 10 mg Cholecalciferol (Vitamin D 5,000 Iu Cap) 5,000 unit PO DAILY LUZ Stop: 06/22/18 09:01 Clopidogrel Bisulfate (Plavix) 75 mg PO DAILY LUZ Stop: 06/22/18 09:01 Dextrose (Dextrose 50% Syringe) 12.5 gm IV PRN PRN; Protocol PRN Reason: HYPOGLYCEMIA Stop: 06/21/18 00:24 Finasteride (Proscar) 5 mg PO DAILY LUZ Stop: 06/21/18 09:01 Last Admin: 05/22/18 10:41 Dose: 5 mg Gabapentin (Neurontin) 300 mg PO BID LUZ Stop: 06/20/18 21:01 Last Admin: 05/22/18 10:41 Dose: 300 mg Glucagon (Glucagen) 1 mg IM 1X PRN; Protocol PRN Reason: HYPOGLYCEMIA Stop: 06/21/18 00:24 Sodium Chloride (Ns 1000 Ml Ivbag) 1,000 mls @ 100 mls/hr IV .Q10H LUZ Stop: 06/20/18 04:01 Last Admin: 05/22/18 17:24 Dose: 1,000 mls Piperacillin Sod/Tazobactam Sod (Zosyn 3.375 Gm/100 Ml Ns Ivpb) 3.375 gm in 100 mls @ 100 mls/hr IVPB Q6HR [facility]; Protocol Stop: 06/20/18 06:01 Last Admin: 05/22/18 17:23 Dose: 100 mls Vancomycin HCl 1.75 gm/ Sodium (Chloride) 500 mls @ 250 mls/hr IVPB Q36H [facility]; Protocol Stop: 06/20/18 15:01 Last Admin: 05/21/18 16:56 Dose: 500 mls Insulin Glargine (Lantus) 20 units SQ BEDTIME LUZ Stop: 06/21/18 21:01 Insulin Human Regular (Novolin -R) 0 unit SQ ACHS [facility]; Protocol Stop: 06/21/18 07:31 Last Admin: 05/22/18 17:23 Dose: 12 unit Ipratropium [place] (Atrovent Neb) 0.5 mg NEB [id number] PRN PRN Reason: SHORTNESS OF BREATH Stop: 06/20/18 03:48 Levothyroxine Sodium (Synthroid) 0.225 mg PO DAILYAC [facility] Stop: 06/21/18 06:31 Last Admin: 05/22/18 05:47 Dose: 0.225 mg Ondansetron HCl (Zofran) 4 mg IV Q6HP PRN PRN Reason: NAUSEA / VOMITING Stop: 06/20/18 03:48 Prednisone (Deltasone) 20 mg PO BID [facility] Stop: 06/21/18 21:01 Ranitidine HCl (Zantac) 150 mg PO BEDTIME LUZ Stop: 06/20/18 21:01 Last Admin: 05/21/18 20:08 Dose: 150 mg Sodium Chloride (Normal Saline Flush) 10 ml IV BID [facility] Stop: 06/20/18 09:01 Last Admin: 05/22/18 09:00 Dose: Not Given Tamsulosin HCl (Flomax) 0.4 mg PO BID [facility] Stop: 06/21/18 09:01 Last Admin: 05/22/18 10:41 Dose: 0.4 mg Lab Results (last 24 hrs) 05/20/18 21:47: POC Glucose 124 H Microbiology Results 05/20/18 21:40 Blood - Blood Aerobic Blood Culture - Preliminary 05/20/18 21:40 Blood - Blood Gram Stain - Preliminary 05/20/18 21:40 Blood - Blood Anaerobic Blood Culture - Preliminary 05/20/18 21:40 Blood - Blood Gram Stain - Preliminary 05/20/18 21:25 Blood - Blood Aerobic Blood Culture - Preliminary 05/20/18 21:25 Blood - Blood Gram Stain - Preliminary 05/20/18 21:25 Blood - Blood Anaerobic Blood Culture - Preliminary 05/20/18 21:25 Blood - Blood Gram Stain - Preliminary 05/20/18 21:45 Nasopharnyx Influenza Type A Antigen Screen - Final 05/20/18 21:45 Nasopharnyx Influenza Type B Antigen Screen - Final Assessment/ Plan: Nephrology. Doing well. CPS stable without CP or SOB. No acute events overnight. Vitals, medications, blood work and imaging reviewed in the chart. General: Oriented x3, Cooperative HEENT: Atraumatic Neck: Supple Respiratory: Clear to auscultation bilaterally Cardiovascular: No edema, Regular rate/rhythm Gastrointestinal: Soft and benign, Non-distended Musculoskeletal: No clubbing Integumentary: No rashes, No cyanosis Neurological: Normal speech Laboratory Data (last 24 hrs) 05/20/18 21:35: PT 15.1 H, INR 1.28 05/20/18 21:35: WBC 13.1 H, Hgb 13.4 L, Hct 40.4, Plt Count 136 L 05/20/18 20:46: Sodium 133 L, Potassium 4.4, BUN 60 H, Creatinine 2.70 H, Glucose 130 H, Total Bilirubin 0.7, AST 28, ALT 33, Alkaline Phosphatase 89, Lipase 376 Imagings Data: EXAM DESCRIPTION: CT - Chest Abd Pelvis Wo Con - 05/21/2018 2:50 am CLINICAL HISTORY: Chest and abdominal pain status post fall COMPARISON: None TECHNIQUE: Computed axial tomography of the chest, abdomen and pelvis was obtained. Oral contrast was given. IV contrast was not requested. Preliminary report was generated by virtual radiologic and reviewed prior to dictation All CT scans are performed using dose optimization technique as appropriate and may include automated exposure control or mA/KV adjustment according to patient size. FINDINGS: The evaluation of mediastinum, josé, vessels and solid organs is limited secondary to the lack of IV contrast administration A mediastinal hematoma is not seen. A pleural effusion is not present. A pericardial effusion is not seen. A pulmonary contusion is not present. Mild right lower lobe atelectasis The liver, spleen, pancreas, adrenals, bladder and kidneys do not demonstrate a traumatic injury. There is no evidence of diverticulitis. The prostate gland is mildly to moderately enlarged. Small inguinal hernias contain fat. A 3.5 centimeter low- density mass extends off the right kidney. It is nonspecific without IV contrast but probably represents a cyst IMPRESSION: No acute traumatic injury involving the chest, abdomen or pelvis is seen Conclusions/Impression: A/ KORI in the setting of hypovolemia. CKD III with proteinuria. HTN with CKD. DM II with CKD. BPH with LUTS. Urge Incontinence. Right renal mass? Cyst? Gout. Hypocalcemia. Sepsis. RLL PNA. P/ Continue current POC and Medications. Continue NS at this time. Agree with abx. No NSAIDs. AM labs. Daily weight. Will repeat a renal ultrasound in 3-6 months.
[2018-05-22] MEDS ORDERED: INSULIN GLARGINE 100 UNITS/ML SQ SCH (21:00)
--- NOTE | 2018-05-22 21:23 | PN ---
Date of Progress Note: 05/21/2018 Subjective: The patient seen and examined, chart reviewed, and case discussed with Dr. Monsalve. Th e patient is feeling better. Still has some mild facial droopiness. Review of Systems: Negative except as above. Medications: List reviewed. Physical Examination: Vital Signs: Temperature 97.2, heart rate 76, blood pressure 147/63, respirations 20, and O2 98% on room air. General: Awake, alert, and oriented x3. Elderly male appearing obese. CV: S1, S2. Regular rate and rhythm. Peripheral pulses present. Respiratory: Moving air well bilaterally. No wheezing. Gastrointestinal: Abdomen is soft, nontender, and nondistended. Positive bowel sounds. Extremities: No clubbing, cyanosis, or edema. Neurologic: Nonfocal. The patient does have some mild left facial droop. Laboratory Data: Sodium 136, potassium 4.8, chloride 102, CO2 24, BUN 42, creatinine 1.9, glucose 32 1, calcium 7.6, and magnesium 2.7. WBC 7.9, H and H 12.6 and 38.4, platelets 126, and neutrophils 39 %. Blood culture / growing strep. Assessment: An 83-year-old male with; 1.Sepsis secondary to pneumonia, improving. 2.Right lower lobe pneumonia. Continue antibiotics. Blood cultures growing strep. 3.Acute on chronic kidney injury and stage 4 chronic kidney disease. Creatinine is improving. Appr eciate Dr. Peraza's input. Avoid nonsteroidal anti-inflammatory drugs. 4.Coronary artery disease, [place] artery, [place] heart, without angina, stable. 5.Diabetes mellitus type 2 with long-term use of insulin with hyperglycemia, uncontrolled. We will adjust insulin sliding scale. Continue Accu-Cheks. 6.Chronic atrial fibrillation, rate controlled on Eliquis. 7.Medley's palsy. We will continue steroids and acyclovir. Appreciate Dr. Monsalve's input. 8.Mixed hyperlipidemia, statin. 9.Status post aortic valve replacement, percutaneous. 10.Benign prostatic hyperplasia. We will continue with tamsulosin. 11.Hypothyroidism. Continue Synthroid. 12.Gout. We will hold allopurinol. 13.Gastroesophageal reflux disease without esophagitis. Continue PPI. 14.Right kidney mass, most likely representing cyst. The patient will need repeat imaging in the 3 months. GI, DVT prophylaxis. The patient is already on Eliquis. We will continue antibiotics. I will adjus t insulin, likely discharge in the next 24 hours depending on clinical improvement and final culture results. JACKY Voice ID: [id number] Report ID: [id number]
[2018-05-22] MEDS: RANITIDINE 150 MG TABLET PO SCH (22:04)
[2018-05-22] MEDS: ATORVASTATIN 10 MG TAB PO SCH (22:04)
[2018-05-22] MEDS: predniSONE 20 MG TAB PO SCH (22:05)
[2018-05-23] MEDS ORDERED: VANCOMYCIN 1.75 GM in NA CHLORIDE 0.9% 500 ML IVPB SCH (04:00)
[2018-05-23] MEDS: VANCOMYCIN 1.75 GM in NA CHLORIDE 0.9% 500 ML IVPB SCH (04:05)
[2018-05-23] MEDS: LEVOTHYROXINE SOD 0.075 MG TAB PO SCH (05:14)
[2018-05-23] MEDS: NA CHLORIDE 0.9% 1,000 ML IV SCH (05:15)
[2018-05-23 06:25] LABS: Potassium 4.6 mmol/L (3.5-5.1)
[2018-05-23] MEDS: PIPER/TAZO/NS 3.375gm 3.375 GM/100 ML BAG IVPB SCH ×2 (06:42→12:00)
[2018-05-23] MEDS: INSULIN -REGULAR HUMAN 50 UNIT/0.5 ML ML SQ SCH ×2 (07:30→11:30)
[2018-05-23] MEDS ORDERED: VITAMIN D 5,000 UNIT CAP PO SCH (09:00)
[2018-05-23] MEDS ORDERED: CLOPIDOGREL 75 MG TABLET PO SCH (09:00)
[2018-05-23] MEDS: FINASTERIDE 5 MG TAB PO SCH (10:15)
[2018-05-23] MEDS: GABAPENTIN 300 MG CAP PO SCH (10:16)
[2018-05-23] MEDS: predniSONE 20 MG TAB PO SCH (10:16)
[2018-05-23] MEDS: TAMSULOSIN 0.4 MG SR CAP PO SCH (10:18)
[2018-05-23] MEDS: ACYCLOVIR 400 MG TABLET PO SCH (10:18)
[2018-05-23] MEDS: APIXABAN 2.5 MG TABLET PO SCH (10:18)
[2018-05-23 11:03] VITALS: TEMP 97.1
[2018-05-23 13:00] VITALS: BP 123/55
[2018-05-23 14:24] VITALS: O2SAT 98
--- NOTE | 2018-05-23 16:11 | PN ---
Date of Progress Note: 05/23/2018 Subjective: The patient is seen at the bedside. No events reported. The patient feels well. Denie s any fevers, chills, chest pain, short of breath, nausea, vomiting, or diarrhea. Objective: Vital Signs: Blood pressure 134/60, pulse 62, temperature 97.2. General: No acute distress. Heart: Regular rate and rhythm. No murmurs, rubs, or gallops. Lungs: Clear to auscultation bilaterally. Abdomen: Soft, nontender, nondistended. Positive bowel sounds x4. Extremities: No significant edema. Impression: 1.Acute kidney injury. 2.Sepsis secondary to pneumonia. 3.Right lower lobe pneumonia. 4.Coronary artery disease. 5.Diabetes mellitus. Plan: Renal function is improving. Continue current antibiotics and volume replenishment. Avoid NS AIDs. Avoid contrast. We will continue to follow. /JOLIE Voice ID: [id number] Report ID: [id number]
--- NOTE | 2018-05-24 05:25 | DS ---
Date of Discharge: 05/23/2018 Consultants: Dr. Peraza with Nephrology, Dr. Monsalve with Neurology, and Dr. Pal with Infectiou s Disease. Admitting Diagnoses: 1.Sepsis. 2.Right lower lobe pneumonia. 3.Acute on chronic kidney disease, stage 4. 4.Coronary artery disease, [place] artery and [place] heart without angina. 5.Diabetes mellitus type 2 with long-term use of insulin with hyperglycemia. 6.Atrial fibrillation, on Eliquis. Discharge Diagnoses: 1.Sepsis secondary to pneumonia, improvement. 2.Right lower lobe pneumonia, improving. 3.Acute on chronic kidney injury, stage 4. 4.Coronary artery disease, [place] artery, [place] heart without angina, stable. 5.Diabetes mellitus type 2 with long-term use of insulin with hyperglycemia. 6.Chronic atrial fibrillation, on Eliquis. 7.Medley's palsy, on steroids and acyclovir. 8.Hyperlipidemia, on statin. 9.Status post aortic valve replacement, percutaneous. 10.Benign prostatic hyperplasia, on tamsulosin. 11.Hypothyroidism, on Synthroid. 12.Gout, on allopurinol. 13.Right kidney mass, likely representing cyst, needs repeat imaging in 3 months. 14.Obesity, BMI 32. Hospital Course: The patient is an 83-year-old male with past medical history of acute on chronic ki dney disease along with diabetes and coronary artery disease. The patient came in with sepsis, which was secondary to pneumonia. The patient was started on IV antibiotics. Cultures were obtained, how ever, showed strep. The patient is immunocompromised due to his diabetes. Otherwise, he did recover well from his sepsis . His pneumonia also improved. The patient's white count also normalized. The patient did have tyler e elevated creatinine levels above his baseline. The patient usually sees career transition specialist in [place] at [facility]. The patient's Bumex and allopurinol were held and going forward will need to have a redu aman dose of Bumex due to his kidney dysfunction. The patient did respond well and his kidney functio n improved. The patient was then cleared for discharge and was sent home in a stable condition. Due to his positive blood cultures, he will need to be on antibiotics for 10 days and to have repeat blo od cultures done after antibiotics are completed. Followup: Follow up with primary care physician in 2-3 days. Follow up with neurologist, Dr. Yogi valle in 2 weeks for Medley's palsy. Follow up with career transition specialist in [place] next week. Repeat blood cult ures after antibiotics completed. Repeat labs, specifically kidney function in 2 weeks. Diet: Renal diet, fluid restricted diet. Activity: As tolerated. Medications: List as per medication reconciliation list. Physical Examination: General: Awake, alert, oriented, no acute distress, elderly male, obese. CV: S1, S2. No murmurs. Respiratory: Moving air well bilaterally. No wheezing. Gastrointestinal: Abdomen is soft, nontender, nondistended. Positive bowel sounds. Extremities: No clubbing, cyanosis, or edema. Neuro: Nonfocal. The patient does have some slight left-sided facial droop from his Medley's palsy. Total time spent discharging the patient was 41 minutes. JACKY Voice ID: [id number] Report ID: [id number]
== END 2018-05-23 13:14 | disposition home or self-care (01) | DRG 871 ==
LOC: ER 20:48 → ERHOLD 05-21 02:52 → 2ND 05-21 03:51
PROVIDERS: ADMIT Internal Medicine; ATTEND Internal Medicine
DX: A41.9 Sepsis, unspecified organism (principal); J18.9 Pneumonia, unspecified organism; I13.0 Hypertensive heart and chronic kidney disease with heart failure and stage 1 through stage 4 chronic kidney disease, or unspecified chronic kidney disease; N18.4 Chronic kidney disease, stage 4 (severe); I50.22 Chronic systolic (congestive) heart failure; N17.9 Acute kidney failure, unspecified; I25.10 Atherosclerotic heart disease of native coronary artery without angina pectoris; N40.0 Benign prostatic hyperplasia without lower urinary tract symptoms; K21.9 Gastro-esophageal reflux disease without esophagitis; M10.9 Gout, unspecified; E83.51 Hypocalcemia; E78.2 Mixed hyperlipidemia; G51.0 Bell's palsy; N28.89 Other specified disorders of kidney and ureter; E66.9 Obesity, unspecified; Z68.32 Body mass index [BMI] 32.0-32.9, adult; E11.22 Type 2 diabetes mellitus with diabetic chronic kidney disease; E11.65 Type 2 diabetes mellitus with hyperglycemia; E03.9 Hypothyroidism, unspecified; Z95.5 Presence of coronary angioplasty implant and graft; Z79.01 Long term (current) use of anticoagulants; Z95.2 Presence of prosthetic heart valve; Z95.1 Presence of aortocoronary bypass graft; Z95.0 Presence of cardiac pacemaker
CPT/HCPCS: 36415; 70450; 71045; 71250; 72125; 74176; 80048; 80076; 80202; 81001; 81003; 81015; 82043; 82550; 82570; 82962; 83605; 83690; 83735; 84100; 84145; 84484; 84550; 85025; 85610; 87040; 87077; 87186; 87205; 87804; 93005; 94760; 96361; 96365; 97163; 99285; J0692; J1650; J2543; J2920; J7030; J7512

== ENCOUNTER 2018-09-14 09:45 | Day surgery (SDC) | payer OTHER, MEDICARE ==
--- OUTSIDE RECORDS SUMMARY | 2018-09-14 09:50 | XMS REPORT | Clinical Summary ---
:1935 Author Organization [facility] Address [address] [place] [address] Care Team Providers Name Role Phone Marcia Luz MD Primary Care Provider Allergies No Known Allergies Medications Medication Sig Dispensed Refills Start End Date Status Date insulin Use as directed 300 each 3 [...] associated with type 2 diabetes mellitus (HCC) finasteride TAKE ONE (1) 90 tablet 1 Active (PROSCAR) 5 mg TABLET(S) BY 8 tabletIndications: MOUTH ONCE A Benign prostatic DAY. hyperplasia with lower urinary tract symptoms, symptom details unspecified tamsulosin (FLOMAX) Take 1 capsule 3 Active 0.4 mg by mouth daily. 8 capsule,extended release 24hr metoprolol tartrate Take 1 tablet by 3 Active (LOPRESSOR) 25 mg mouth 2 (two) 7 tablet times a day. ranitidine (ZANTAC) Take 150 mg by 0 Active 150 MG tablet mouth daily. allopurinol Take 1 tablet 60 tablet Active (ZYLOPRIM) 100 MG (100 mg total) 8 tabletIndications: by mouth daily. Elevated uric acid in blood cholecalciferol, Take 1,000 Units 0 Active vitamin D3, by mouth daily. (VITAMIN D3) 1,000 unit capsule BUMETanide (BUMEX) TAKE TWO (2) 3 Active 2 MG tablet TABLET(S) BY 8 MOUTH TWICE A DAY. levothyroxine Take 1 tablet 30 tablet 11 03/29/20 Active (SYNTHROID) 25 mcg (25 mcg total) 8 19 tablet by mouth every morning. gabapentin Take 2 capsules 360 capsule 2 Active (NEURONTIN) 300 mg in the morning 8 capsule and at bedtime for a total of 4 per day. spironolactone Take 1 tablet 90 tablet 3 06/22/20 Active (ALDACTONE) 25 MG (25 mg total) by 8 19 tabletIndications: mouth daily. Coronary artery disease involving torres martinez coronary artery of torres martinez heart without angina pectoris, Systolic congestive heart failure, unspecified HF chronicity (HCC), Aortic valve disorder ELIQUIS 2.5 mg Take 1 tablet 90 tablet 3 Active tablet (2.5 mg total) 8 by mouth 2 (two) times a day. simvastatin (ZOCOR) Take 1 tablet 90 tablet 3 Active 20 MG tablet (20 mg total) by 8 mouth once daily. potassium chloride Take 1 tablet 90 tablet 1 Active (K-DUR) 20 MEQ CR (20 mEq total) 8 tabletIndications: by mouth daily. Essential hypertension clopidogrel Take 1 tablet 90 tablet 3 Active (PLAVIX) 75 mg (75 mg total) by 8 tablet mouth daily. levothyroxine TAKE ONE (1) 90 tablet 3 Active (SYNTHROID, TABLET(S) BY 9 LEVOXYL) 200 mcg MOUTH ONCE A DAY tabletIndications: IN THE MORNING. Other specified hypothyroidism simvastatin (ZOCOR) Take 20 mg by 3 06/22/20 Discontinued 20 MG tablet mouth once 6 18 daily. ELIQUIS 2.5 mg Take 2.5 mg by 3 06/22/20 Discontinued tablet mouth 2 (two) 6 18 times a day. amIODarone 0 05/08/20 Discontinued (PACERONE) 200 MG 6 18 tablet calcitriol TAKE ONE (1) 11 06/22/20 Discontinued (ROCALTROL) 0.25 CAPSULE(S) BY 7 18 MCG capsule MOUTH ONCE A DAY. furosemide (LASIX) 2 po bid 120 tablet 3 02/20/20 Discontinued 80 mg tablet 7 18 levothyroxine Take 1 tablet 90 tablet 1 02/24/20 Discontinued (SYNTHROID) 200 mcg (200 mcg total) 8 18 tabletIndications: by mouth every Other specified morning. hypothyroidism potassium chloride Take 1 tablet 90 tablet 1 06/22/20 Discontinued (K-DUR) 20 MEQ CR (20 mEq total) 8 18 tabletIndications: by mouth daily. Essential hypertension levothyroxine Take 1 tablet 30 tablet [...] at bedtime, take 1 capsule at noon. lidocaine-prilocain Apply 1 90 g 4 06/22/20 Discontinued e (EMLA) 2.5-2.5 % application (2.5 8 18 cream g total) topically as needed for mild pain (2-3 times per day as needed to painful areas). sacubitril-valsarta 1/2 tab po bid 16 tablet 11 01/03/20 Discontinued n (ENTRESTO) 24-26 8 18 mg tablet per tablet gabapentin Take 2 capsules 360 capsule 3 05/26/20 Discontinued (NEURONTIN) 300 mg in the morning 8 18 capsule and at bedtime for a total of 4 per day. pregabalin (LYRICA) Take 1 capsule 90 capsule [...] cough Cough for up to 10 days. clopidogrel Take 75 mg by 0 06/22/20 Discontinued (PLAVIX) 75 mg mouth daily. 18 tablet levothyroxine Take 1 tablet 90 tablet 1 08/28/19 Discontinued (SYNTHROID) 200 mcg (200 mcg total) 8 19 tabletIndications: by mouth every Other specified morning. hypothyroidism LYRICA 75 mg TAKE ONE (1) 90 capsule 1 06/22/20 Discontinued capsule CAPSULE(S) BY 8 18 MOUTH NIGHTLY. spironolactone Take 1 tablet 90 tablet 3 06/22/20 Discontinued (ALDACTONE) 25 MG (25 mg total) by 8 18 tabletIndications: mouth daily. Coronary artery disease involving torres martinez coronary artery of torres martinez heart without angina pectoris, Systolic congestive heart failure, unspecified HF chronicity (HCC), Aortic valve disorder gabapentin TAKE TWO (2) 450 capsule 0 06/22/20 Discontinued (NEURONTIN) 300 mg CAPSULES IN THE 8 18 capsule MORNING AND AT BEDTIME, AND TAKE ONE (1) CAPSULE AT NOON. doxycycline Take 1 capsule 14 capsule 0 08/17/19 (VIBRAMYCIN) 100 MG (100 mg total) 9 19 capsuleIndications: by mouth 2 (two) Bronchitis times a day for 7 days. codeine-guaifenesin Take 10 mL by 240 mL 0 08/10/19 Discontinued (GUAIFENESIN AC) mouth nightly as 9 19 10-100 mg/5 mL needed for cough liquidIndications: for up to 20 Bronchitis days. codeine-guaifenesin Take 10 mL by 240 mL 0 08/10/201 08/30/19 (GUAIFENESIN AC) mouth nightly as 9 19 10-100 mg/5 mL needed for cough liquidIndications: for up to 20 Bronchitis days. Active Problems Problem Noted Date Urinary tract infection 06/22/2018 Chronic kidney disease 06/22/2018 Congestive heart failure 06/22/2018 CHF (congestive heart failure) 06/22/2018 Angina pectoris 06/05/2018 Overview: Added automatically from request for surgery [id number] Systolic congestive heart failure 05/08/2018 Coronary artery disease involving torres martinez coronary artery of torres martinez heart 05/08 without angina pectoris Overview: 05/2018 see note new Representative Personal Service is Dr Marycarmen iRco to add spironolactone and bumex bid Aortic valve disorder 05/08/2018 S/P TAVR (transcatheter aortic valve replacement) 05/08/2018 History of coronary artery bypass graft 05/08/2018 Stented coronary artery 05/08/2018 Cardiac resynchronization therapy defibrillator (CLAY PLANT TREATER-D) in place 05/08/2018 PAD (peripheral artery disease) [...] empty stomach and repeat in 3 months. Keratosis seborrheica 05/15/2016 Lentigines 05/15/2016 Multiple nevi 05/15/2016 Neoplasm of uncertain behavior of skin 05/15/2016 Personal history of skin cancer 05/15/2016 Heart palpitations 03/25/2016 Overview: Dr Rodney Pantoja [...] diabetes mellitus 02/08/2016 Overview: Dr Begum Neurologist [facility] [phone] Other specified abnormal findings of blood chemistry 01/24/2016 Pneumonia 01/24/2016 Aortic valve stenosis 01/24/2016 Benign prostatic hyperplasia 01/24/2016 Chronic coronary artery disease 01/24/2016 Diabetes mellitus 01/24/2016 Hypothyroidism 01/24/2016 Shortness of breath 01/24/2016 Hypertension 01/24/2016 Gout 06/06/2004 Hypertension Hyperlipidemia GERD (gastroesophageal reflux disease) Disease of thyroid gland Diabetes mellitus Overview: Humulin RU 500 insulin PRN 50-75 units per day, patient has a sliding scale that he uses Anemia Clotting disorder SOB (shortness of breath) Overview: 01/21/199610/[address] Jessee Gutierrez EF decreased S/p TAVR, ACID and Pacemaker Encounters Date Type Specialty Care Team Description 08/28/2018 Refill Internal Medicine Sukh, Other specified Marcia Currie hypothyroidism 08/10/2018 Office Visit Internal Medicine Sukh, Bronchitis (Primary Dx); Marcia Currie, Congestive heart failure, unspecified HF chronicity, unspecified heart failure type (HCC); Diabetic polyneuropathy associated with type 2 diabetes mellitus (HCC ); Renal insufficiency 06/22/2018 Office Visit Cardiology Trisha Rico Coronary artery disease involving torres martinez coronary artery of torres martinez heart without angina pectoris ( Primary Dx); MD Isa Systolic congestive heart failure, unspecified HF chronicity (HCC ); Aortic valve disorder; Essential hypertension 06/22/2018 Orders Only Cardiology Trisha Rico MD 06/10/2018 Surgery Procedural Trisha Rico Cv left internal Cardiology MD Isa mammary graft 06/10/2018 Hospital Cardiology Trisha Rico Coronary artery disease involving torres martinez coronary artery of torres martinez heart without angina pectoris; - Encounter MD Isa Angina pectoris (HCC) 06/11/2018 06/05/2018 Office Visit Cardiology Trisha Rico Angina pectoris (HCC) ( Primary Dx); MD Isa Pre-procedural laboratory examination; Coronary artery disease involving torres martinez coronary artery of torres martinez heart without angina pectoris 05/26/2018 Refill Neurology Farhad Begum MD 05/23/2018 Refill Neurology Farhad Begum MD 05/21/2018 Telephone Internal Medicine Marcia Luz MD 05/08/2018 Office Visit Cardiology Trisha Rico SOB (shortness of breath) ( Primary Dx); MD Isa Coronary artery disease involving torres martinez coronary artery of torres martinez heart without angina pectoris; Systolic congestive heart failure, unspecified HF chronicity ([facility]); Aortic valve disorder; PAD (peripheral artery disease) ([facility]); Essential hypertension; S/P TAVR (transcatheter aortic valve replacement); History of coronary artery bypass graft; Stented coronary artery; Cardiac resynchronization therapy defibrillator (CLAY PLANT TREATER-D) in place 05/08/2018 Orders Only Cardiology Trisha Rico MD 04/03/2018 [facility] Only Internal Medicine Marcia Luz MD 03/17/2018 Orders Only Internal Medicine Sukh, Abnormal thyroid Marcia Currie, function test (Primary MD Dx) 03/06/2018 Refill Neurology Farhad Begum MD 02/23/2018 Telephone Neurology Farhad Begum MD 02/20/2018 Telephone Internal Medicine Sukh, Other specified Marcia Currie hypothyroidism 02/19/2018 Office Visit Internal Medicine Sukh, Type 2 diabetes mellitus with diabetic polyneuropathy, with long-term current use of insulin (Primary Dx) ; Marcia Currie Shortness of breath; Other specified hypothyroidism; Other fatigue; SOB (shortness of breath); Essential hypertension; Pedal edema 01/20/2018 Telephone Cardiovascular Marbella Muniz RN 01/19/2018 Telephone Cardiovascular Luann Garland 01/14/2018 [facility] Radiology Farhad Begum MD Leg swelling Encounter 01/14/2018 Telephone Neurology Farhad Begum MD Stenosis of right femoral artery (Primary Dx) 01/02/2018 Office Visit Neurology Farhad Begum MD Diabetic polyneuropathy associated with type 2 diabetes mellitus (Primary Dx); Cardioembolic stroke; Leg swelling 12/29/2017 Telephone Neurology Farhad Begum MD 12/05/2017 [facility] Radiology Sukh, Shortness of breath; Encounter Marcia Currie, Cough 12/05/2017 Office Visit Internal Medicine Sukh, Shortness of breath ( Primary Dx); Marcia Currie, Cough; Bronchitis; Essential hypertension 12/05/2017 Telephone Internal Medicine Marcia Luz MD 11/28/2017 Refill Internal Medicine Marcia Luz MD 11/24/2017 Telephone Internal Medicine Marcia Luz MD 11/18/2017 Telephone Internal Medicine Rosa Eric MA 11/17/2017 Office Visit Internal Medicine Sukh, SOB (shortness of breath) (Primary Dx); Marcia Currie, Essential hypertension; Diabetic polyneuropathy associated with type 2 diabetes mellitus; Renal insufficiency; Other fatigue 10/29/2017 Refill Internal Medicine Marcia Luz MD 09/17/2017 Office Visit Neurology Farhad Begum MD Diabetic polyneuropathy associated with type 2 diabetes mellitus (Primary Dx); Cardioembolic stroke; Pain in both lower extremities after 09/13/2017 Immunizations Name Dates Previously Given Next Due [...] Vital Sign Reading Time Taken Blood Pressure 107/71 08/10/2018 11:07 AM SHANK BREAKER Pulse 89 08/10/2018 11:07 AM [facility]ANK BREAKER Temperature 36.6 C (97.8 F) 08/10/2018 11:07 AM SHANK BREAKER Respiratory Rate 16 06/22/2018 3:48 PM SHANK BREAKER Oxygen Saturation 97% 08/10/2018 11:07 AM SHANK BREAKER Inhaled Oxygen Concentration - - Weight 104 kg (230 lb) 08/10/2018 11:07 AM SHANK BREAKER Height 180.3 cm (5' 11") 08/10/2018 11:07 AM SHANK BREAKER Body Mass Index 32.08 08/10/2018 11:07 AM SHANK BREAKER Plan of Treatment Date Type Specialty Care Team Description 10/07/2018 [place] [address] [facility] [address] [place] [address] [phone] 12/25/2018 Office [place] [address] [facility] [address] [place], [place] [id number] 12/30/2018 Office Visit Internal Medicine Marcia Luz MD [address] [facility] [address] [place] [address] Health Maintenance Due Date Last Done Comments SHINGLES VACCINES (#1) 1986 65+ PNEUMOCOCCAL VACCINE (2 of 2 - 04/20/2017 04/20/2016, 06/20/2011 PPSV23) INFLUENZA VACCINE 02/04/2018 04/05/2017, 04/20/2016, 04/24/2015 DIABETIC FOOT EXAM 11/17/2018 11/17/2017, 11/17/2017, 10/23/2016 DIABETIC RETINAL EYE EXAM 07/29/2020 07/29/2018, 08/06/2017 PNEUMOCOCCAL POLYSACCHARIDE VACCINE Completed 06/20/2011, 06/20/2011 AGE 65 AND OVER Implants Implanted Type Area Firebreak Cutter Device Shelf Model / Identifier Expiration Serial / Date Lot System Clsr Sut Meditd 6fr Perclose Proglide - [id number] Surgical N/A: N/A PROCTOR VASCULAR 03/06/2020 [id number] / Implanted: 06/10/2018 (Quantity not on file) Implants; DEVICES / Expanders; [id number] Extenders; Surgical Wires Procedures Procedure Name Priority Date/Time Associated Diagnosis Comments OBTAIN MEDICAL RECORDS Routine 06/22/2018 POC GLUCOSE Routine 06/11/2018 11:44 Results for this AM [employer]ANK BREAKER procedure are in the results section. POC GLUCOSE Routine 06/11/2018 7:32 Results for this AM [employer]ANK BREAKER procedure are in the results section. HC COMPLETE BLD COUNT Routine 06/11/2018 4:15 Results for this W/AUTO DIFF AM [employer] BRE[employer]ER procedure are in the results section. ESTIMATED GFR Routine 06/11/2018 4:00 Results for this AM [employer]ANK BREAKER procedure are in the results section. BASIC METABOLIC PANEL Routine 06/11/2018 4:00 Results for this AM [employer]ANK BREAKER procedure are in the results section. POC GLUCOSE Routine 06/10/2018 9:09 Results for this PM [employer] BREAKER procedure are in the results section. POC GLUCOSE Routine 06/10/2018 5:57 Results for this PM [employer]ANK BREAKER procedure are in the results section. ESTIMATED GFR Routine 06/10/2018 5:31 Results for this PM [employer]ANK BREAKER procedure are in the results section. CREATININE LEVEL Routine 06/10/2018 5:31 Results for this PM [employer]ANK BREAKER procedure are in the results section. POC GLUCOSE Routine 06/10/2018 1:56 Results for this PM [employer]ANK BREAKER procedure are in the results section. CV LEFT INTERNAL Routine 06/10/2018 1:19 Coronary artery Results for this MAMMARY GRAFT PM [employer]ANK BREAKER disease involving procedure are in torres martinez coronary the results artery of torres martinez section. heart without angina pectoris Angina pectoris (HCC) CV FRACTIONAL FLOW Routine 06/10/2018 1:19 Coronary artery Results for this RESERVE PM [employer]ANK BREAKER disease involving procedure are in torres martinez coronary the results artery of torres martinez section. heart without angina pectoris Angina pectoris (HCC) CV SELECTIVE Routine 06/10/2018 1:19 Coronary artery Results for this ANGIOGRAPHY BYPASS PM [employer]ANK BREAKER disease involving procedure are in GRAFT torres martinez coronary the results artery of torres martinez section. heart without angina pectoris Angina pectoris (HCC) CV SELECTIVE CORONARY Routine 06/10/2018 1:19 Coronary artery Results for this ANGIOGRAPHY PM [facility]ANK BREAKER disease involving procedure are in torres martinez coronary the results artery of torres martinez section. heart without angina pectoris Angina pectoris (HCC) ACTIVATED CLOTTING Routine 06/10/2018 12:54 Results for this TIME PM [facility]ANK BREAKER procedure are in the results section. POC PANEL Routine 06/10/2018 9:51 Results for this AM SHANK BREAKER procedure are in the results section. ESTIMATED GFR Routine 06/10/2018 9:51 Results for this AM [employer]ANK BREAKER procedure are in the results section. POC GLUCOSE Routine 06/10/2018 9:35 Results for this AM [employer]ANK BREAKER procedure are in the results section. ECG PRE/POST OP STAT 06/10/2018 9:15 Results for this AM [employer]ANK BREAKER procedure are in the results section. PROTHROMBIN TIME WITH Routine 06/05/2018 11:41 Pre-procedural Results for this INR AM [facility]ANK BREAKER laboratory procedure are in examination the results Coronary artery section. disease involving torres martinez coronary artery of torres martinez heart without angina pectoris COMPREHENSIVE Routine 06/05/2018 11:41 Pre-procedural Results for this METABOLIC PANEL AM [facility]ANK BREAKER laboratory procedure are in examination the results Coronary artery section. disease involving torres martinez coronary artery of torres martinez heart without angina pectoris CBC WITH PLATELET AND Routine 06/05/2018 11:41 Pre-procedural Results for this DIFFERENTIAL AM [facility]ANK BREAKER laboratory procedure are in examination the results Coronary artery section. disease involving torres martinez coronary artery of torres martinez heart without angina pectoris BASIC METABOLIC PANEL Routine 06/02/2018 11:49 Coronary artery Results for this AM [employer]ANK BREAKER disease involving procedure are in torres martinez coronary the results artery of torres martinez section. heart without angina pectoris Systolic congestive heart failure, unspecified HF chronicity (HCC) Aortic valve disorder ECHOCARDIOGRAM 2D Routine 05/08/2018 3:52 Coronary artery Results for this COMPLETE W MMODE PM CDT disease involving procedure are in SPECTRAL COLOR DOPPLER torres martinez coronary the results (23902) artery of torres martinez section. heart without angina pectoris Systolic congestive heart failure, unspecified HF chronicity (HCC) Aortic valve disorder ECG 12-LEAD Routine 05/08/2018 8:48 Coronary artery Results for this AM CDT disease involving procedure are in torres martinez coronary the results artery of torres martinez section. heart without angina pectoris OBTAIN MEDICAL RECORDS Routine 05/08/2018 T4, FREE Routine 03/27/2018 10:56 Abnormal thyroid Results for this AM CDT function test procedure are in the results section. THYROID STIMULATING Routine 03/27/2018 10:56 Abnormal thyroid Results for this HORMONE AM CDT function test procedure are in the results section. T4, FREE Routine 02/19/2018 12:18 Other specified Results for this PM CDT hypothyroidism procedure are in the results section. THYROID STIMULATING Routine 02/19/2018 12:18 Other specified Results for this HORMONE PM CDT hypothyroidism procedure are in the results section. CBC WITH PLATELET AND Routine 02/19/2018 12:18 Shortness of breath Results for this DIFFERENTIAL PM CDT procedure are in the results section. COMPREHENSIVE Routine 02/19/2018 12:18 Other fatigue Results for this METABOLIC PANEL PM CDT Essential procedure are in hypertension the results Pedal edema section. C-PEPTIDE Routine 02/19/2018 12:18 Type 2 diabetes Results for this PM CDT mellitus with procedure are in diabetic the results polyneuropathy, with section. long-term current use of insulin GAD65, IA-2, AND Routine 02/19/2018 12:18 Type 2 diabetes Results for this INSULIN AUTOANTIBODY PM CDT mellitus with procedure are in diabetic the results polyneuropathy, with section. long-term current use of insulin US DUPLEX ARTERIAL Routine 01/14/2018 2:01 Leg swelling Results for this LOWER EXTREMITY PM CDT procedure are in BILATERAL the results section. XR CHEST 2 VW Routine 12/05/2017 2:33 Shortness of breath Results for this PM CDT Cough procedure are in the results section. BASIC METABOLIC PANEL Routine 12/05/2017 1:07 Essential Results for this PM CDT hypertension procedure are in the results section. CBC WITH PLATELET AND Routine 12/05/2017 1:07 Shortness of breath Results for this DIFFERENTIAL PM CDT Bronchitis procedure are in the results section. B NATRIURETIC PEPTIDE Routine 12/05/2017 1:07 Shortness of breath Results for this PM CDT procedure are in the results section. BASIC METABOLIC PANEL Routine 11/17/2017 1:11 Essential Results for this PM CDT hypertension procedure are in Diabetic the results polyneuropathy section. associated with type 2 diabetes mellitus Renal insufficiency after 09/13/2017 Results Obtain medical records (06/22/2018)Only the most recent of2 resultswithin the time period is included. Narrative Performed At POC glucose (06/11/2018 11:44 AM SHANK BREAKER)Only the most recent of6 resultswithin the time period is included. POC glucose 367 (HH) 65 - 99 mg/dL [facility] Comment: [facility] Notified RN Meter ID: [id number] Transportation Coordinator: Mani Bernal Performing Organization Address City/State/Zipcode Phone Number [facility] DEPARTMENT OF PATHOLOGY AND [address] [place] [address] GENOMIC MEDICINE [address] [address] CBC with platelet and differential (06/11/2018 4:15 AM SHANK BREAKER)Only the most recent of4 resultswithin the time period is included. WBC 7.49 4.50 - 11.00 k/uL [facility] RBC 3.88 (L) 4.40 - 6.00 m/uL [facility] HGB 10.9 (L) 14.0 - 18.0 g/dL [facility] HCT 34.6 (L) 41.0 - 51.0 % [facility] MCV 89.2 82.0 - 100.0 fL [facility] MCH 28.1 27.0 - 34.0 pg [facility] MCHC 31.5 31.0 - 37.0 g/dL [facility] RDW - SD 56.4 (H) 37.0 - 55.0 fL [facility] MPV 11.2 8.8 - 13.2 fL [facility] Platelet count 134 (L) 150 - 400 k/uL [facility] Nucleated RBC 0.00 /100 WBC [facility] Neutrophils 66.0 39.0 - 69.0 % [facility] Lymphocytes 24.8 (L) 25.0 - 45.0 % [facility] Monocytes 7.2 0.0 - 10.0 % [facility] Eosinophils 1.6 0.0 - 5.0 % [facility] Basophils 0.1 0.0 - 1.0 % [facility] Immature granulocytes 0.3Comment: "Immature 0.0 - 1.0 % [facility]" [facility] (promyelocytes, myelocytes, metamyelocytes) Specimen Blood Performing Organization Address City/[facility]ode Phone Number [facility] DEPARTMENT OF PATHOLOGY AND [address] [place] [address] Estimated GFR (06/11/2018 4:00 AM SHANK BREAKER)Only the most recent of3 resultswithin the time period is included. Estimated GFR 31 (A) mL/min/1.73 m2 [facility] Comment: HOSPITAL CatergoryUnitsInterpretation G1 >=90 Normal or high G2 60-89Mildly decreased [id number] to moderately decreased [id number] to severely decreased G4 15-29Severely decreased G5 <15Kidney failure The eGFR was calculated using the Chronic Kidney Disease Epidemiology Collaboration (CKD-EPI) equation. Interpretation is based on recommendations of the National Kidney Foundation-Kidney Disease Outcomes Quality Initiative (NKF-KDOQI) published in 2014. Specimen Plasma specimen Performing Organization Address City/[facility]/Zipcode Phone Number [facility] DEPARTMENT OF PATHOLOGY AND [address] [place] [address] Basic metabolic panel (06/11/2018 4:00 AM SHANK BREAKER)Only the most recent of4 resultswithin the time period is included. Sodium 136 135 - 148 mEq/L [facility] Potassium 4.6 3.5 - 5.0 mEq/L [facility] Chloride 97 (L) 98 - 112 mEq/L [facility] CO2 22 (L) 24 - 31 mEq/L [facility] Anion gap 17@ANIO (H) 7 - 15 mEq/L [facility] BUN 34 (H) 8 - 23 mg/dL [facility] Creatinine 1.98 (H) 0.70 - 1.20 mg/dL [facility] Glucose 284 (H) 65 - 99 mg/dL [facility] Calcium 8.2 (L) 8.8 - 10.2 mg/dL [facility] Specimen Plasma specimen Performing Organization Address City/State/Zipcode Phone Number [facility] DEPARTMENT OF PATHOLOGY AND [address] [place] [phone] [place] [phone] Creatinine level (06/10/2018 5:31 PM SHANK BREAKER) Creatinine 2.04 (H) 0.70 - 1.20 mg/dL [facility] Specimen Plasma specimen Performing Organization Address City/[facility] Cent[facility]ode Phone Number [facility] DEPARTMENT OF PATHOLOGY AND [address] [place] [phone] [place] [phone] Cv supervisor laboratory procedure (06/10/2018 1:19 PM SHANK BREAKER) Narrative Performed At [facility] Left main has 40-50% stenosis with iFR of left main into ramus 0.95 (negative for ischemia LAD is occluded proximally but fills distally via a patent MERCER; previously seen distal LAD stenosis appears 30%; the 1st diagonal is occluded ostially with a patent SVG with a severe anastamotic lesion, however the major branch of this diagonal is occluded The ramus has a patent stent from left main into the body of the vessel jailing the torres martinez circumflex [place] circumflex has 50% lesion ostially RCA is known occluded with a patent SVG to RCA The patient was brought to the cardiac catheterization laboratory in a fasting state. Informed consent was obtained prior to procedure. Groin was prepped and draped in the usual sterile fashion. Intravenous Versed and fentanyl were administered for conscious sedation. Skin was infiltrated with 1% lidocaine for local anesthesia. Arterial access was obtained using modified Seldinger technique. 6Fr. sheath was inserted into the right common femoral artery. Selective coronary angiogram was performed including to SVGs and MERCER thereafter in a standard fashion using JL4 diagnostic and JR4 guide catheters.iFR was then performed of the left main into the ramus with using a XB3.5 and a verrata wire.It was 0.95 (negative for ischemia. The patient tolerated the procedure well and there were no immediate complications. Performing Organization Address [facility]/Zipcode Phone Number [facility] [address] [place] [phone] Activated clotting time (06/10/2018 12:54 PM SHANK BREAKER) Activated clotting time 295 (H) 96 - 152 sec [facility] Comment: Meter ID: [id number] Transportation Coordinator: Brandi Sommers Performing Organization Address [facility] Phone Number [facility] DEPARTMENT OF PATHOLOGY AND [address] [place] [phone] POC panel (06/10/2018 9:51 AM SHANK BREAKER) POC sodium 137 135 - 148 mmol/L [facility] POC potassium 3.8 3.5 - 5.0 mmol/L [facility] POC chloride 97 (L) 99 - 109 mmol/L [facility] POC CO2 27 24 - 31 mmol/L [facility] POC glucose 150 (H) 65 - 99 mg/dL [facility] POC BUN 38 (H) 8 - 24 mg/dL [facility] POC creatinine 2.3 (H) 0.7 - 1.2 mg/dl [facility] POC hematocrit 40 (L) 41 - 51 % [facility] POC anion gap 17 8 - 20 mmol/L [facility] Comment: Meter ID: [id number] Transportation Coordinator: Jenny Nichole Performing Organization Address [facility] Centercomi Phone Number [facility] DEPARTMENT OF PATHOLOGY AND [address] [place], [place] [phone] ECG Pre/Post Op (06/10/2018 9:15 AM SHANK BREAKER) Ventricular rate 80 [facility] Atrial rate 80 [facility] HI interval 134 [facility] QRSD interval 170 [facility] QT interval 482 [facility] QTC interval 555 [facility] P axis 1 51 [facility] QRS axis 1 250 [facility] MUSE T wave axis 83 [facility] MUSE EKG impression Electronic ventricular pacemaker-In automated [facility] MUSE comparison with ECG of 08-MAY-2018 08:48,-Vent. rate has increased BY 7 BPM- Narrative Performed At Performing Organization Address City/[facility]/Zipcode Phone Number [facility] [address] [place] [address] Prothrombin time with INR (06/05/2018 11:41 AM SHANK BREAKER) INR 1.0 [place] [place] Comment: Reference Range 0.9-1.1 Moderate-intensity Warfarin Therapy 2.0-3.0 Higher-intensity Warfarin Therapy 3.0-4.0 Prothrombin time 10.2 9.0 - 11.5 sec [facility] [place] Comment: For more information on this test, go to: http://education.[employer]/faq/EAN543 Specimen Blood Narrative Performed At FASTING:YES [facility] FASTING: YES Resulting Agency Comment Performing Organization Information: Site ID: [id number] Name: [facility] Address: [address] [place] [phone] Director: Jessica Morris Performing Organization Address [facility]/Zipcode Phone Number [employer] [place] [phone] Comprehensive metabolic panel (06/05/2018 11:41 AM SHANK BREAKER)Only the most recent of2 resultswithin the time period is included. Glucose 227 (H) 65 - 99 mg/dL [facility] Comment: [place] Fasting reference interval For someone without known diabetes, a glucose value >125 mg/dL indicates that they may have diabetes and this should be confirmed with a follow-up test. BUN, whole blood 41 (H) 7 - 25 mg/dL [facility] [place] Creatinine 2.21 (H) 0.70 - 1.11 [facility] Comment: mg/dL [place] For patients >49 years of age, the reference limit for Creatinine is approximately 13% higher for people identified as -Swazi. EGFR Non-Afr. Swazi 27 (L) > OR=60 [facility] mL/min/1.73m2 [place] EGFR 31 (L) > OR=60 [place] mL/min/1.73m2 [place] BUN/creatinine ratio 19 6 - 22 (calc) [place] Sodium 134 (L) 135 - 146 mmol/L [facility] [place] Potassium 4.7 3.5 - 5.3 mmol/L [facility] [place] Chloride 95 (L) 98 - 110 mmol/L [place] CO2 28 20 - 32 mmol/L [facility] [place] Calcium 8.7 8.6 - 10.3 mg/dL [facility] [place] Protein 6.5 6.1 - 8.1 g/dL [facility] [place] Albumin, S 3.9 3.6 - 5.1 g/dL [facility] [place] Globulin, total 2.6 1.9 - 3.7 g/dL [place] (calc) [place] Albumin/globulin ratio 1.5 1.0 - 2.5 (calc) [facility] [place] Total bilirubin 0.8 0.2 - 1.2 mg/dL [facility] [place] Alkaline phosphatase 79 40 - 115 U/L [facility] [place] AST 17 10 - 35 U/L [facility] [place] ALT 17 9 - 46 U/L [facility] [place] Specimen Blood Narrative Performed At FASTING:YES [facility] FASTING: YES Resulting Agency Comment Performing Organization Information: Site ID: [id number] Name: [facility] Address: [address] [place] [phone] Director: Jessica Morris Performing Organization Address City/State/Zipcode Phone Number [employer] [place] [address] [place] [address] Echocardiogram complete w contrast and 3D if needed (05/08/2018 3:52 PM CDT) Narrative Performed At [facility] Echocardiography Report Pat.Name:MARCELA MERCADO.ID:[id number] St.Date: 05/08/2018 Refer.MD:TRISHA RICO MD Exam Time: 3:00:00 PMStudy Type:Routine Echo Height:71inWeight: 230lb BSA: 2.24 m2 DOBAge:1935,83Y Sex: MALEBP:137/72 HR:65 bpm Sonogrphr: Faye Osiel, RCS, RCCS, CCT Pat. 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 MEASUREMENTS: 2D Parasternal [place] Ao An2.5 cmLV%fs 32.7 % Ao Rtd 3.3 cmIndex1.5 cm/m IVSd 1.1 cm LVOT 2.2 cmLVPWd1.2 cm LA Ds4.5 cm LV Ybws322.6 g(122-174) LVIDd5.2 cmIndex2.3 cm/m LVM Nftfv160.7 g/m2 LVIDs3.5 cmRWT0.5 LA Volume LA Vol99.6 hkIxrwk24.5 ml/m LA Sng Plane LA Area 26 cm2(8.8-23.4) LA Vol93 ml Index41.5 ml/m LA LngAx 6 cm LVOT LVOT 2.1 cm DOPPLER AV For Flow/RAI AV pkVel 168 cm/s (100-170) AV AC/ET 0.5 AV mnVel 114.2 cm/Kai TVI37.6 cm AV pkPG 11.3 mmHgAVpkAcRt 3558.6 cm/s2 AV Mean G6.4 mmHgAV TqQz114.8 cm/s2 AV AC153 msec (83-118) AV Area2.7 cm2(3-5) AV ET329 msec LVOT For Flow LVOT Area3.5 cm2 LVOT SV101.6 ml SPJEyjOkz519 cm/sHR60.1 bpm LVOTpkPG 8.1 mmHgLVOT CO6.1 l/min LVOTmnPG 3.9 mmHgLVOT CI2.7 l/m/m2 LVOT TVI29.3 cm MV E/A Ratio MV pkE 105.8 cm/s (60-130) MV E/A 1.6 MV pkA64.9 cm/s IVRT IVRT80 msec TV Pressure Gradient TV PkVel 300.9 cm/sTV PG 36.2 mmHg Signed 05/11/2018 06:19 PM Brown Hicks M.D. Procedure Note Interface, Radiology Results In - 05/11/2018 6:21 PM SHANK BREAKER [facility] Echocardiography Report Pat.Name: MARCELA MERCADO Pat.ID: [id number] St.Date: 05/08/2018 Refer.MD: TRISHA RICO MD Exam Time: 3:00:00 PM Study Type:Routine Echo Height: 71in Weight: 230lb BSA: 2.24 m2 Age: 11 1935,83Y Sex: MALE BP: 137/72 HR: 65 bpm Sonogrphr: Faye Cartagena, RCS, RCCS, CCT Pat. 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 MEASUREMENTS: 2D Parasternal Long [place] Ao An 2.5 cm LV%fs 32.7 % [...] PM Brown Hicks M.D. Performing Organization Address [facility] Phone Number [facility] [address] [place] [address] ECG 12 lead (05/08/2018 8:48 AM CDT) Ventricular rate 73 [facility] Atrial rate 73 [facility] HI interval 144 [facility] QRSD interval 178 [facility] QT interval 518 [facility] QTC interval 570 [facility] P axis 1 66 [facility] QRS axis 1 259 [facility] T wave axis 88 [facility] EKG impression AV sequential or dual chamber electronic [facility] MUSE pacemaker-In automated comparison with ECG of 30-NOV-2014 17:34,-Electronic ventricular pacemaker has replaced Atrial fibrillation- Performing Organization Address [facility] Phone Number [facility] [address] [place] [address] Thyroid stimulating hormone (03/27/2018 10:56 AM CDT)Only the most recent of2 resultswithin the time period is included. TSH 24.11 (H) 0.40 - 4.50 mIU/L [place] Specimen Blood Narrative Performed At FASTING:NO [facility] FASTING: NO Resulting Agency Comment Performing Organization Information: Site ID: [id number] Name: [facility] Address: [address] [place] [phone] Director: Jessica Morris Performing Organization Address City/[facility] Phone Number [facility]IV[facility] [place] [phone] T4, free (03/27/2018 10:56 AM CDT)Only the most recent of2 resultswithin the time period is included. T4, free 1.4 0.8 - 1.8 ng/dL [place] Specimen Blood Narrative Performed At FASTING:NO [facility] FASTING: NO Resulting Agency Comment Performing Organization Information: Site ID: [id number] Name: [facility] Address: [address] [place] [phone] Director: Jessica Morris Performing Organization Address [facility] Phone Number [place] [address] GAD65, IA-2, and Insulin Autoantibody (02/19/2018 12:18 PM CDT) Glutamic acid decarboxylase <5 <5 IU/mL [facility] 65 Ab Comment: [place] [employer] [facility] This test was performed using the GAD65 CM method. New method, CM, is standardized against the International reference preparation 97/550, is reported in International Units/mL (IU/mL) and a new reference range was implemented. IA-2 antibody <0.8 <0.8 U/mL [facility] Insulin AutoAb 6.2 (H) <0.4 U/mL [facility] Specimen Blood Resulting Agency Comment Performing Organization Information: Site ID: [id number] Name: [facility], Address: [address] [place] [phone] Director: Nissa Frey MD,PhD,GHULAM Performing Organization Address [facility] Centercode Phone Number [facility] [place] [phone] [place] [phone] [facility] C-peptide (02/19/2018 12:18 PM CDT) C-peptide 2.27 0.80 - 3.85 ng/mL EdvertJOSE FRANCISCO II Specimen Blood Resulting Agency Comment Performing Organization Information: Site ID: [id number] Name: [facility] Address: [address] [place] [phone] Director: Dr. Chele Yates Performing Organization Address City/State/Zipcode Phone Number VIVI SAMSON II [address] [facility]. [place] [address] Pv duplex arterial lower extremity (01/14/2018 2:01 [...] INDEX: Posterior tibial: 0.86 Dorsalis pedis: 1.03 TW [id number] Procedure Note Hm Interface, Radiology Results Incoming [...] INDEX: Posterior tibial: 0.86 Dorsalis pedis: 1.03 TW [id number] Performing Organization Address [facility] Center[facility]i Phone Number [facility] [address] [place] [address] XR Chest 2 Vw (12/05/2017 2:33 PM CDT) Narrative Performed At EXAMINATION:XR CHEST 2 VW RADIANT CLINICAL HISTORY:R06.02 Shortness of breath, R05 Cough, [...] a AICD device since the previous study. [id number] Procedure Note Hm Interface, Radiology Results Incoming - 12/05/2017 2:38 [...] a AICD device since the previous study. [facility]-[id number] Performing Organization Address [facility] Phone Number [facility] [address] [place] [address] B natriuretic peptide (12/05/2017 1:07 PM CDT) BNP 364 (H) <100 pg/mL [place] Comment: BNP levels increase with age in the general population with the highest values seen in individuals greater than 75 years of age. Reference: J. Am. Rodolfo. Cardiol. 2002; 40:976-982. Specimen Blood Narrative Performed At FASTING:NO [facility] FASTING: NO Resulting Agency Comment Performing Organization Information: Site ID: [id number] Name: [facility] Address: [address] [place] [address] Director: Jessica Morris Performing Organization Address City/State/Zipcode Phone Number [facility] [place] [address] [place], [place] [phone] after 09/13/2017 Insurance Payer Benefit Plan / Group Subscriber ID Type Phone Address MEDICARE MEDICARE PART A AND B xxxxxxxxxxx Medicare [place], [place] AARP AARP SUPPLEMENT xxxxxxxxxxx Commercial
--- OUTSIDE RECORDS SUMMARY | 2018-09-14 09:51 | XMS REPORT | Continuity of Care Document ---
:1935 Author Organization Interface Problems Problem Status Onset Classification Date Comments Source Date Reported BPH Active 01/24/20 Finding 06/23/[address] [facility] Shortness of Active 01/24/20 Finding 06/23/[address] [facility] [facility] Diabetes mellitus Active 01/24/20 Finding 06/23/[address] [facility] Coronary artery Active 01/24/20 Finding 06/23/[address] [facility] [facility] Aortic stenosis Active 01/24/20 Finding 06/23/[address] [facility] Hypothyroidism Active 01/24/20 Finding 06/23/[address] [facility] Elevated troponin Active 01/24/20 Finding 06/23/[address] [facility] Hypertension Active 01/24/20 Finding 06/23/[address] [facility] Pneumonia Active 01/24/20 Finding 06/23/[address] [facility] Hypomagnesemia Resolved 01/24/20 Finding 06/23/[address] [facility] UTI Active Finding 06/23/[address] [facility] CHF Active Finding 06/23/[address] [facility] Chronic renal Active Finding 06/23/[address] [facility] [address] disease [facility] [place] Medications Medication Details Route Status Patient Ordering Order Source Instructions Provider Date Amiodarone Hcl DAILY AT Active [facility] [place] Insulin Regular, THREE [facility] Human TIMES A [facility] [place] Pregabalin AT BEDTIME [facility] Potassium DAILY [facility] Chloride [facility] [place] All[facility]urinol DAILY [facility] [place] Furosemide TWICE Active [facility] DA[facility] [place] Levothyroxine DAILY AT [facility] [place] Levothyroxine DAILY AT Active Prezas [facility] [place] Furosemide TWICE Active Prezas [facility] DAILY [facility] [place] Apixaban TWICE Active [facility] DA[facility] [place] Tamsulosin DAILY Active [facility] [place] Gabapentin TWICE Active [facility] DAILY [facility] [place] Furosemide DAILY [facility] [place] Levothyroxine DAILY [facility] Sodium [facility] [place] Lisinopril DAILY [facility] [place] Finasteride DAILY [facility] [place] Pantoprazole DAILY [facility] [place] Simvastatin DAILY Active [facility] Metoprolol TWICE Active [facility] Succinate DAILY [facility] [place] Allergies, Adverse Reactions, Alerts Substance Category Reaction Severity Reaction Status Date Comments Source type Reported Immunizations Immunization Date Given Site Status Last Updated Comments Source Results Order Name Results Value Reference Date Interpretation Comments Source Range Laboratory Bedside Glucose 236 65 - 120 06/[address] [facility] [address] Studies mg/dl /2016 [facility] Laboratory Prothrombin 12.5 9.2 - 12.8 06/[address] [facility] [address] Studies Time SECONDS [facility] [place] Laboratory INR 1.05 06/[address] [facility] [address] Studies International /2016 [facility] Normalized [place] Ratio Laboratory Potassium Level 3.6 3.6 - 5.0 06/[address] [facility] [address] Studies mEq/L /2016 [facility] Vital Signs Vital Sign Value Date Comments Source Temperature Oral (F) 97.3 F 06/23/[address] [facility] Heart Rate 66 06/23/[address] [facility] [address] [facility] Respitory Rate 18 06/23/2017 [facility] Systolic (mm Hg) 154 06/23/2017 [facility] Diastolic (mm Hg) 66 06/23/[address] [facility] [address] Brittney Hidalgo Height 71 06/13/2017 [facility] Roy Weight 222.00 06/13/[address] [facility] [address] Brittney Hidalgo Encounters Location Location Encounter Encounter Reason Attending ADM DC Status Source Details Type Number For Provider Date Date Visit [facility] St. Discharged [id number] 04/04 04/05 [facility] [place] [facility] St. Discharged [id number] 04/30 05/[address] [facility] [address] [facility] [place] [facility] St. Discharged [id number] 05/26 06/[address] [facility] [address] [facility] [place] [facility] [place] [facility] St. Departed [id number] 06/23 06/[address] [facility] [address] [facility] Surgical 61 /2016 [facility]ney [facility] [place] Procedures Procedure Code Date Perfomer Comments Source
--- OUTSIDE RECORDS SUMMARY | 2018-09-14 09:51 | XMS REPORT ---
:1935 Author Organization [facility] Address [address] [place] [address] Dr. Griffin[address] [place] [address] Care Team Providers Name Role Phone Unavailable Unavailable Unavailable Problems This patient has no known problems. Allergies, Adverse Reactions, Alerts This patient has no known allergies or adverse reactions. Medications This patient has no known medications.
[2018-09-14] MEDS ORDERED: BSS PLUS 500 ML BOTTLE IRR ONE (10:18)
[2018-09-14] MEDS ORDERED: MOXIFLOXACIN HCL 10 DROPS/ML **OR USE OPTH ONE (10:18)
[2018-09-14] MEDS ORDERED: DUOVISC 1 KIT OPTH ONE (10:18)
[2018-09-14] MEDS ORDERED: NS 0.9% VIAL 10 ML ONE (10:18)
[2018-09-14] MEDS ORDERED: NA CHLORIDE 0.9% 500 ML ONE (10:19)
[2018-09-14] MEDS: TETRACAINE HCL 0.5% 2ML OPTH ONE ×2 (10:30→11:52)
[2018-09-14] MEDS: LIDOCAINE 2% MPF 5 ML VIAL ONE ×2 (10:31→11:53)
[2018-09-14] MEDS: BUPIVACAINE 0.25% PF 10 ML VIAL ONE ×2 (10:31→11:53)
[2018-09-14] MEDS: CYCLOPENTOLATE 1% OPTH 2 ML ONE ×3 (10:35→10:45)
[2018-09-14] MEDS: PHENYLEPHRINE 10% OPTH 5ML ONE ×3 (10:35→10:45)
[2018-09-14] MEDS ORDERED: EPINEPHRINE/PF 1 MG/ML AMP ONE ×2 (10:45)
[2018-09-14] MEDS ORDERED: LIDOCAINE 2% MPF 5 ML VIAL ONE (11:48)
[2018-09-14] MEDS ORDERED: PROPOFOL 200 MG/20 ML VIAL IV ONE (11:48)
--- NOTE | 2018-09-14 12:57 | P.BOP ---
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
[2018-09-14 13:37] VITALS: BP 153/55; TEMP 97.1; O2SAT 100
--- NOTE | 2018-09-15 02:20 | OP ---
Date of Procedure: 09/14/2018 Surgeon: Meg Lopez MD Anesthesiologist: Tiffanie Camarena CRNA and Saw Sue M.D. 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 Operation Performed: Phacoemulsification with intraocular lens implant, complex with the use of iris retractors, right eye. Anesthesia: Per cataract surgery. Complications: None. Description Of The Procedure: In day surgery, the patient was prepped with Betadine and draped. A lid speculum was placed in the right eye. A conjunctival incision was made in the inferior nasal quadrant with Matteo scissors. A 1:1 mixture of 2% Xylocaine and 0.25% bupivacaine was placed around the globe. Approximately 5 mL were used. A Honan balloon was placed on the eye for approximately 5 minutes. The patient was brought into the operative room. The patient was prepped and draped in the usual sterile fashion for ophthalmic surgery. A lid speculum was placed in the eye. Paracentesis was made superiorly and inferiorly in the limbal cornea. Viscoat was placed in the anterior chamber. A crescent blade was used to create a tunnel incision in the temporal cornea and a keratome was used to enter the anterior chamber. Five additional paracentesis sites were created with one at the wound, one 180 degrees from the wound, and three in the superior and inferior quadrants; through these, 5 iris retractors were placed. Provisc was placed in the eye and 360-degree capsulotomy was performed. The lens was hydrodissected with balanced salt solution and moved freely. The lens was removed in a stop and chop fashion. A 5.83 CDE was required. Irrigation and aspiration were used to remove residual cortex. Provisc was placed in the eye. A ZCB00 +22.5 diopter lens was placed in the capsular bag without complications. The iris retractors were removed. Irrigation and aspiration were used to remove residual viscoelastic. The paracentesis sites were hydrated with balanced salt solution and the wound and paracentesis sites were inspected and found to be watertight. Intracameral Vigamox 0.07 cc was injected at the end of the procedure. The eye was irrigated with balanced salt solution. The eye was patched with a soft cotton patch and Chi metal shield. The patient was returned to day surgery in good condition. Comments: The BSS+ was used. A scleral incision was created after cutting the temporal conjunctiva with Matteo scissors. Bipolar cautery was used for hemostasis and the conjunctiva was reapproximated at the end of the procedure. One to 5000 preservative-free epi was placed in the anterior chamber prior to Viscoat. Iris retractors were used because the pupil did not dilate adequately to perform a capsulotomy. Discharge Instructions: Mr. Mercado is discharged to home in good condition and is to follow up with Dr. Lopez in the morning. ATUL/JOLIE Voice ID: [id number] Report ID: [id number] JOEY
== END 2018-09-14 13:00 | disposition home or self-care (01) ==
LOC: OR 09:45
PROVIDERS: ATTEND Ophthalmology Retina Specialist
PROC: 08RJ3JZ Replacement of Right Lens with Synthetic Substitute, Percutaneous Approach (ICD-10-PCS; principal; 2018-09-14 11:00)
DX: H25.11 Age-related nuclear cataract, right eye (principal); H25.041 Posterior subcapsular polar age-related cataract, right eye; H57.03 Miosis; E11.9 Type 2 diabetes mellitus without complications; I10 Essential (primary) hypertension; K21.9 Gastro-esophageal reflux disease without esophagitis; E78.5 Hyperlipidemia, unspecified; I25.10 Atherosclerotic heart disease of native coronary artery without angina pectoris; G47.33 Obstructive sleep apnea (adult) (pediatric); Z79.4 Long term (current) use of insulin; Z95.0 Presence of cardiac pacemaker; Z95.2 Presence of prosthetic heart valve; Z95.1 Presence of aortocoronary bypass graft; Z95.5 Presence of coronary angioplasty implant and graft; Z85.850 Personal history of malignant neoplasm of thyroid; Z90.49 Acquired absence of other specified parts of digestive tract; Z82.49 Family history of ischemic heart disease and other diseases of the circulatory system
CPT/HCPCS: 36415; 84132; 82962; 66982; J2704; J0171 ×2

== ENCOUNTER 2020-05-21 15:27 | Emergency (ER) | payer OTHER, MEDICARE ==
--- OUTSIDE RECORDS SUMMARY | 2020-05-21 15:33 | XMS REPORT | Clinical Summary ---
:1935 Author Organization [facility] Address [address] [place] [address] Care Team Providers Name Role Phone uKsh Luz MD Primary Care Provider Allergies No Known Active Allergies Medications Medication Sig Dispensed Refills Start Date End Date Status dulaglutide (Trulicity) Inject 1.5 mg 0 Active 1.5 mg/0.5 mL pen under the skin injector once a week. UNKNOWN DAY donepeziL (ARICEPT) 10 Take 10 mg by 0 Active MG tablet mouth 2 (two) times a day. spironolactone Take 25 mg by 0 A ctive (ALDACTONE) 25 MG mouth daily. tablet tamsulosin (FLOMAX) 0.4 Take 0.4 mg by 0 Active mg capsule mouth daily. levothyroxine Take 225 mcg by 0 Active (SYNTHROID) 200 mcg mouth daily. tablet calcitrioL (ROCALTROL) Take 0.5 mcg by 0 Active 0.5 MCG capsule mouth daily. isosorbide mononitrate Take 30 mg by 0 Active (IMDUR) 30 MG 24 hr mouth daily. tablet Eliquis 2.5 mg tablet Take 1 tablet 90 tablet 1 02/18/2020 Active (2.5 mg total) by mouth 2 (two) times a day. SIMVASTATIN ORAL Take 20 mg by 0 Active mouth daily. amIODarone (PACERONE) Take 1 tablet 30 tablet 3 03/03/2020 Active 200 MG tablet (200 mg total) by mouth daily. Additional Information Patient taking differently: 200 mg oral 3 times daily, Informant: Self, Reported on 03/17/2020 insulin regular human Inject 3 unit 20 mL 1 03/02/2020 Active U-500 (HumuLIN R U-500, marking on Conc, Insulin) 500 U-100 syringe unit/mL CONCENTRATED (15 Units injection total) under the skin 3 (three) times a day before meals. ESZOPICLONE ORAL Take 0.4 mg by 0 Active mouth nightly. cholecalciferol, vitamin Take 1 tablet 0 Active D3, (VITAMIN D3 ORAL) by mouth daily. torsemide (Demadex) 20 MG Take 4 tablets 720 tablet 3 03/20/20 20 03/07 Active tabletIndications: (80 mg total) 10/24 Chronic combined systolic by mouth 2 21 and diastolic congestive (two) times a heart failure (HCC) day. allopurinoL (ZYLOPRIM) TAKE ONE (1) 90 tablet 2 04/06/2020 Active 100 MG tablet TABLET(S) BY MOUTH ONCE A DAY. dapagliflozin (FARXIGA) 5 Take 1 tablet 30 tablet 0 04/26/202005/08 Active mg tablet (5 mg total) by 0/20 mouth daily 20 with breakfast for 30 days. clopidogreL (PLAVIX) 75 TAKE ONE (1) 90 tablet 2 04/28/2020 Active mg tablet TABLET(S) BY MOUTH ONCE A DAY. levothyroxine (SYNTHROID) Take 25 mcg by 0 Active 25 mcg tablet mouth daily. gabapentin (NEURONTIN) TAKE TWO (2) 360 capsule 2 05/16/2020 Active 300 mg capsule CAPSULE(S) BY MOUTH TWICE A DAY. carvediloL (COREG) 12.5 Take 1 tablet 60 tablet 2 05/18/2020 0 / Active MG tablet (12.5 mg total) 020 by mouth 2 21 (two) times a day for 90 days. 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 urinary tract symptoms, symptom details unspecified tamsulosin (FLOMAX) 0.4 Take 1 capsule 3 07/23/2017 03/0 Discontinued mg capsule,extended by mouth daily. 11/23 (Stop Taking at release 24hr 20 Dischar ge) metoprolol tartrate Take 1 tablet 3 05/23/20170 Discontinued (LOPRESSOR) 25 mg tablet by mouth 2 11/23 (Stop Taking at (two) times a 20 Discha rge) day. ranitidine (ZANTAC) 150 Take 150 mg by 0 0 01/04 Discontinued MG tablet mouth daily. 01/23 (Med Li st 20 Cleanup) cholecalciferol, vitamin Take 1,000 0 Discontinued D3, (VITAMIN D3) 1,000 Units by mouth unit capsule daily. 19 BUMETanide (BUMEX) 2 MG Take 1 tablet 3 01/14/2018 0 3/0 Discontinued tablet by mouth 2 11/23 (Stop Ronny ing at (two) times a 20 Discha rge) day. spironolactone Take 1 tablet 90 tablet 3 06/22/201805/08 Discontinued (ALDACTONE) 25 MG (25 mg total) 08/26 (Duplicate tabletIndications: by mouth daily. 19 order) Coronary artery disease involving stebbins coronary artery of stebbins heart without angina pectoris, Systolic congestive heart failure, unspecified HF chronicity ([facility]), Aortic valve disorder simvastatin (ZOCOR) 20 MG Take 1 tablet 90 tablet 3 06/22/201801/04 Discontinued tablet (20 mg total) 01/23 (Med L ist by mouth once 20 Cleanu p) daily. clopidogrel (PLAVIX) 75 Take 1 tablet 90 tablet 3 06/22/2018 0 1/0 Discontinued mg tablet (75 mg total) 12/24 by mouth daily. 20 levothyroxine (SYNTHROID, TAKE ONE (1) 90 tablet 3 08/28/201808/07 Discontinued LEVOXYL) 200 mcg TABLET(S) BY 03/26 tabletIndications: Other MOUTH ONCE A 20 specified hypothyroidism DAY IN THE MORNING. levothyroxine (SYNTHROID, TAKE ONE (1) 90 tablet 10 10/14/201810/05 Discontinued LEVOXYL) 25 mcg tablet TABLET(S) BY 10/24 (Reorder) MOUTH EVERY 20 MORNING. MYRBETRIQ 25 mg tablet Take 25 mg by 0 12/16/2018 Discontinued extended release 24 hr mouth 2 (two) 11/05 0 (Stop Taking at times a day. 20 Dischar ge) potassium chloride TAKE ONE (1) 90 tablet 0 03/01/201905/09 Discontinued (K-DUR) 20 MEQ CR TABLET(S) BY (Reorder) tabletIndications: MOUTH ONCE A Essential hypertension DAY. allopurinol (ZYLOPRIM) TAKE ONE (1) 90 tablet 3 03/09/201901/04 Discontinued 100 MG tabletIndications: TABLET(S) BY (Med List Elevated uric acid in MOUTH ONCE A 20 Cleanup) blood DAY. dulaglutide (TRULICITY) Inject 1.5 mg 0 Discontinued 1.5 mg/0.5 mL pen under the skin 01/23 (Med List injector once a week. 20 Cleanup ) isosorbide mononitrate 0 02/08/201905/08 Discontinued (IMDUR) 30 MG 24 hr 08/26 (Duplicate tablet 19 order) gabapentin (NEURONTIN) Take 2 capsules 360 capsule 3 9 Discontinued 300 mg capsule (600 mg total) 02/23 (Reorder) by mouth 2 20 (two) times a day. 1 tab in the evening and 1 at bedtime donepezil (ARICEPT) 10 MG Take 1 tablet 90 tablet 3 03/26/201905/08 Discontinued tablet (10 mg total) 08/26 (Reord er) by mouth nightly. UNABLE TO FIND daily. 0 05/08 Disco ntinued Calcitrol .25 08/26 (Dupli miguel 19 order) fexofenadine (RAHAT) Take 180 mg by 0 Discontinued 180 MG tablet mouth daily. 01/23 (Me d List 20 Cleanup) icosapent ethyl (VASCEPA) Take 2 g by 120 capsule 11 04/22/201905/07 1 gram mouth 2 (two) 12/24 capsuleIndications: times a day for 19 Hypertriglyceridemia 30 days. ELIQUIS 2.5 mg tablet TAKE ONE (1) 90 tablet 2 05/03/201905/08 Discontinued TABLET(S) BY 08/26 (Duplic ate MOUTH TWICE A 19 order) DAY. isosorbide mononitrate TAKE ONE (1) 90 tablet 3 05/10/2019 Discontinued (IMDUR) 30 MG 24 hr TABLET(S) BY 11/23 (Stop Taking at tablet MOUTH ONCE A 20 Dischar ge) DAY. spironolactone TAKE ONE (1) 90 tablet 2 05/18/20190 D iscontinued (ALDACTONE) 25 MG TABLET(S) BY 11/23 (Stop Taking at tabletIndications: MOUTH ONCE A 20 Discharge) Coronary artery disease DAY. involving stebbins coronary artery of stebbins heart without angina pectoris, Systolic congestive heart failure, unspecified HF chronicity (HCC), Aortic valve disorder ELIQUIS 2.5 mg tablet TAKE ONE (1) 30 tablet 2 05/24/201912/05 Discontinued TABLET(S) BY 09/23 (Stop T aking at MOUTH TWICE A 20 Discha rge) DAY. calcitriol (ROCALTROL) Take 0.25 mcg 0 04/17/2019 Discontinued 0.25 MCG capsule by mouth daily. 01/23 (Med List 20 Cleanup) donepezil (ARICEPT) 10 MG Take 1 tablet 180 tablet 3 Discontinued tablet (10 mg total) 02/23 (Reord er) by mouth 2 20 (two) times a day. potassium chloride TAKE ONE (1) 90 tablet 0 06/05/20190 Discontinued (K-DUR) 20 MEQ CR TABLET(S) BY 11/23 (Stop Taking at tabletIndications: MOUTH ONCE A 20 Discharge) Essential hypertension DAY. budesonide-formoterol Inhale 2 puffs 1 Inhaler 3 06/11/2019 Discontinued (SYMBICORT) 80-4.5 2 (two) times a 01/23 (Med List mcg/actuation inhaler day. 20 Cleanup) clopidogrel (PLAVIX) 75 TAKE ONE (1) 90 tablet 2 07/12/2019 Discontinued mg tablet TABLET(S) BY 07/26 (Med Li st MOUTH ONCE A 20 Cleanup ) DAY. cholecalciferol, vitamin Take 1,000 0 01/04 Discontinued D3, (VITAMIN D3 ORAL) Units by mouth 01/05 0 (Med List daily. 20 Cleanup) ciprofloxacin HCl (CIPRO) Take 1 tablet 20 tablet 0 07/27/201907/09 250 MG tablet (250 mg total) 07/26 by mouth 2 20 (two) times a day for 10 days. levothyroxine (SYNTHROID) Take 1 tablet 90 tablet 3 08/25/201908/08 Discontinued 200 mcg (200 mcg total) 08/26 tabletIndications: Other by mouth daily. 20 specified hypothyroidism levothyroxine (SYNTHROID) TAKE ONE (1) 90 tablet 2 08/28/201901/04 Discontinued 200 mcg TABLET(S) BY 01/23 (Med Li [address] tabletIndications: Other MOUTH ONCE A 20 Cleanup) specified hypothyroidism DAY IN THE MORNING. amIODarone (PACERONE) 200 Take 200 mg by 0 01/04 Discontinued MG tablet mouth 2 (two) 01/23 (Med L ist times a day. 20 Cleanup ) isosorbide dinitrate Take 1 tablet 90 tablet 0 09/09/2019 040 (ISORDIL) 10 MG tablet (10 mg total) 10/06 0 by mouth 3 20 (three) times a day for 30 days. hydrALAZINE (APRESOLINE) Take 1 tablet 90 tablet 0 09/09/2019 04/0 25 MG tablet (25 mg total) 10/24 by mouth every 20 8 (eight) hours for 30 days. carvediloL (COREG) 3.125 Take 1 tablet 60 tablet 0 09/09/2019 04/0 MG tablet (3.125 mg 10/24 total) by mouth 20 2 (two) times a day for 30 days. tamsulosin (FLOMAX) 0.4 Take 2 capsules 60 capsule 0 0 04/0 mg capsule (0.8 mg total) 10/24 by mouth daily 20 for 30 days. spironolactone Take 1 tablet 30 tablet 0 09/09/2019 04/0 (ALDACTONE) 25 MG tablet (25 mg total) 20 by mouth daily 20 for 30 days. BUMETanide (BUMEX) 2 MG Take 1 tablet 30 tablet 0 09/09/2019 0 09/04 Discontinued tablet (2 mg total) by 09/23 (Reo rder) mouth daily for 20 30 days. BUMETanide (BUMEX) 2 MG Take 2 g in the 45 tablet 11 09/17/201911/04 Discontinued tablet morning and 1 g 10/24 (Reo rder) in the 20 afternoon levothyroxine (SYNTHROID) Take 1 tablet 90 tablet 3 10/19/201901/04 Discontinued 25 mcg tabletIndications: (25 mcg total) 01/23 (Med List Other specified by mouth every 20 Cleanup) hypothyroidism morning. traZODone (DESYREL) 50 MG Take 1 tablet 30 tablet 5 10/19/201911/04 tabletIndications: (50 mg total) 10/24 Primary insomnia by mouth 20 nightly for 30 days. pregabalin (Lyrica) 75 MG Take 1 capsule 90 capsule 1 11/01/19 Discontinued capsule (75 mg total) 02/23 (Med L ist by mouth 20 Cleanup) nightly. BUMETanide (BUMEX) 2 MG Take 1 tablet 90 tablet 3 11/18/2019 0 12/06 Discontinued tablet (2 mg total) by 08/26 (Med List mouth 2 (two) 20 Cleanu p) times a day. Take 2 g in the morning and 1 g in the afternoon miconazole nitrate 2 % Apply topically 56 g 4 11/23/2019 ointmentIndications: Rash 2 (two) times a 08/26 day for 14 20 days. cefdinir (OMNICEF) 300 MG Take 1 capsule 10 capsule 0 12/17/19 20 12/05 capsule (300 mg total) 01/23 by mouth 2 20 (two) times a day for 5 days. docusate sodium (Colace) Take 1 capsule 60 capsule 0 0 01/04 100 MG capsule (100 mg total) 08/26 by mouth 2 20 (two) times a day for 30 days. phenazopyridine Take 1 tablet 30 tablet 0 12/17/201912/06 (Pyridium) 100 MG tablet (100 mg total) 08/26 by mouth 3 20 (three) times a day as needed for bladder spasms for up to 10 days. BUMETanide (BUMEX) 2 MG Take 2 mg by 0 07/ 1 Discontinued tablet mouth 2 (two) 01/23 (Med L ist times a day. 20 Cleanup ) spironolactone Take 25 mg by 0 07/1 D iscontinued (ALDACTONE) 25 MG tablet mouth daily. (Med List 20 Cleanup) apixaban (ELIQUIS) 2.5 mg Take 2.5 mg by 0 07/2 Discontinued tablet mouth 2 (two) 09/23 times a day. 20 clopidogreL (PLAVIX) 75 Take 75 mg by 0 07 /1 Discontinued mg tablet mouth daily. 01/23 (Med Li st 20 Cleanup) traZODone (DESYREL) 50 MG Take 50 mg by 0 07/1 Discontinued tablet mouth nightly. 01/23 (Med List 20 Cleanup) tamsulosin (FLOMAX) 0.4 Take 0.4 mg by 0 0 01/04 Discontinued mg capsule mouth daily 01/23 (Med Li st with dinner. 20 Cleanup ) gabapentin (NEURONTIN) Take 1 capsule 270 capsule 3 01/12/202001/04 Discontinued 300 mg capsule (300 mg total) 01/23 (Med List by mouth 3 20 Cleanup) (three) times a day. 1 tab in the evening and 1 at bedtime donepeziL (ARICEPT) 10 MG Take 1 tablet 180 tablet 3 0 01/04 Discontinued tablet (10 mg total) 01/23 (Med L ist by mouth 2 20 Cleanup) (two) times a day. isosorbide dinitrate Take 10 mg by 0 01/04 Discontinued (ISORDIL) 10 MG tablet mouth 3 (three) (Med List times a day. 20 Cleanup ) carvediloL (COREG) 3.125 Take 3.125 mg 0 0 01/04 Discontinued MG tablet by mouth 3 01/23 (Med List (three) times a 20 Desire nup) day. hydrALAZINE (APRESOLINE) Take 25 mg by 0 0 7/ Discontinued 25 MG tablet mouth 3 (three) 01/23 ( Med List times a day. 20 Cleanup ) BUMETanide (BUMEX) 2 MG Take 2 mg by 0 07/ 1 Discontinued tablet mouth daily. AM 01/23 (Med List 20 Cleanup) BUMETanide (BUMEX) 2 MG Take 1 mg by 0 08/ 2 Discontinued tablet mouth every 01/23 (Stop Ta john at evening. 20 Discharge) insulin lispro (HumaLOG Inject under 0 07/ 1 Discontinued KwikPen Insulin) 200 the skin See 01/23 (Med List unit/mL (3 mL) insulin Admin 20 Cleanup) pen Instructions. Sliding scale, max 40 units insulin glargine U-300 Inject 50 Units 0 0 01/04 Discontinued conc (Toujeo Max U-300 under the skin (Med List SoloStar) 300 unit/mL (3 daily. 20 Cleanup) mL) insulin pen gabapentin (NEURONTIN) Take 600 mg by 0 Discontinued 300 mg capsule mouth 3 (three) times a day. 20 Takes 2 tabs 3 times a day spironolactone Take 25 mg by 0 07/1 D iscontinued (ALDACTONE) 25 MG tablet mouth daily. (Med List 20 Cleanup) clopidogreL (PLAVIX) 75 Take 75 mg by 0 09 /2 Discontinued mg tablet mouth daily. 10/24 20 traZODone (DESYREL) 50 MG Take 50 mg by 0 07/1 Discontinued tablet mouth nightly. 01/23 (Med List 20 Cleanup) tamsulosin (FLOMAX) 0.4 Take 0.4 mg by 0 0 7/1 Discontinued mg capsule mouth daily. 01/23 (Med L ist 20 Cleanup) levothyroxine (SYNTHROID) Take 200 mcg by 0 07/1 Discontinued 200 mcg tablet mouth daily. 01/23 (M ed List 20 Cleanup) amIODarone (PACERONE) 200 Take 200 mg by 0 08/2 Discontinued MG tablet mouth 2 (two) 01/23 (Stop Taking at times a day. 20 Dischar ge) insulin glargine U-300 Inject 50 Units 0 0 / Discontinued conc (Toujeo Max U-300 under the skin 0 (Reorder) SoloStar) 300 unit/mL (3 daily. 20 mL) insulin pen insulin lispro (HumaLOG Inject under 0 07/ 2 Discontinued KwikPen Insulin) 200 the skin See 0 (Reorder) unit/mL (3 mL) insulin Admin 20 pen Instructions. SLIDING SCALE , MAX 40 UNITS /DAY docusate sodium (COLACE) Take 100 mg by 0 03/07 Discontinued 100 MG capsule mouth daily. 07/26 (T herapy 20 completed) allopurinoL (ZYLOPRIM) Take 100 mg by 0 10 /0 Discontinued 100 MG tablet mouth nightly. 07/26 19 phenazopyridine Take 100 mg by 0 07/3 Discontinued (PYRIDIUM) 100 MG tablet mouth daily. finasteride (PROSCAR) 5 Take 5 mg by 0 07/ 3 Discontinued mg tablet mouth daily. 07/26 19 traZODone (DESYREL) 50 MG Take 50 mg by 0 07/3 Discontinued tablet mouth nightly. 07/26 19 BUMETanide (BUMEX) 2 MG Take 2 mg by 0 2 Discontinued tablet mouth every 01/23 (Stop Ta john at morning. 20 Discharge) pregabalin (LYRICA) 75 MG Take 75 mg by 0 07/3 Discontinued capsule mouth daily. 07/26 19 carvediloL (COREG) 3.125 Take 1 tablet 60 tablet 0 01/23/202002/04 MG tablet (3.125 mg 02/23 total) by mouth 20 2 (two) times a day for 30 days. insulin glargine U-300 Inject 60 Units 0 01/24/2020 08 Discontinued conc (Toujeo Max U-300 under the skin (Stop Taking at [employer]) 300 unit/mL (3 daily for 30 20 Discharge) mL) insulin pen days. insulin lispro (HumaLOG Inject 15 Units 0 01/24/202002/05 Discontinued KwikPen Insulin) 200 under the skin 01/23 (Stop Taking at unit/mL (3 mL) insulin 3 (three) times 2 0 Discharge) pen a day before meals. SLIDING SCALE , MAX 40 UNITS /DAY Eliquis 2.5 mg tablet TAKE ONE (1) 90 tablet 1 01/27/202002/04 Discontinued TABLET(S) BY 10/24 (Reorde r) MOUTH TWICE A 20 DAY. eszopiclone (LUNESTA) 1 Take 1 tablet 30 tablet 5 02/04/2020 0 8/ MG tabletIndications: (1 mg total) by Primary insomnia mouth nightly 20 for 30 days. Take immediately before bedtime torsemide (Demadex) 20 MG Take 2 tablets 60 tablet 3 0 02/05 Discontinued tablet (40 mg total) 01/23 (Stop Taking at by mouth 2 20 Discharge ) (two) times a day. torsemide (DEMADEX) 20 MG Take 4 tablets 240 tablet 3 03/02/20 20 03/07 Discontinued tablet (80 mg total) 07/26 (Thera py by mouth 2 20 completed ) (two) times a day. carvediloL (COREG) 3.125 Take 1 tablet 60 tablet 3 03/02/202003/07 Discontinued MG tablet (3.125 mg 07/26 (Therapy total) by mouth 20 comp leted) 2 (two) times a day. cefuroxime (CEFTIN) 250 Take 1 tablet 4 tablet 0 03/02/2020 0 02/06 MG tablet (250 mg total) 07/26 by mouth daily 20 for 4 days. milrinone in 5% dextrose Infuse 36.3 100 mL 3 03/02/2020 Discontinued (PRIMACOR) 20 mg/100 mL mcg/min into a (200 mcg/mL) infusion venous catheter 20 continuously. potassium chloride Take 4 capsules 120 capsule 3 03/03/2020 Discontinued (MICRO-K) 10 MEQ CR (40 mEq total) 08/26 (Stop Taking at capsule by mouth daily. 20 Disc harge) sennosides-docusate Take 1 tablet 60 tablet 3 03/02/202003/07 Discontinued sodium (SENOKOT-S) 8.6-50 by mouth 2 07/08 0 (Therapy mg per tablet (two) times a 20 co mpleted) day. BUMETanide (BUMEX) 2 MG Take 2 mg by 0 03/07 Discontinued tablet mouth daily. 07/26 (Med Li st 20 Cleanup) torsemide (Demadex) 20 MG Take 1 tablet 90 tablet 3 03/17/202003/07 Discontinued tablet (20 mg total) 10/24 by mouth daily. 20 milrinone in 5% dextrose Infuse 48.4 100 mL 3 03/20/2020 Discontinued (PRIMACOR) 20 mg/100 mL mcg/min into a (Stop Taking at (200 mcg/mL) venous catheter 20 D ischarge) infusionIndications: continuously. Chronic combined systolic and diastolic congestive heart failure (HCC) torsemide (Demadex) 20 MG Take 4 tablets 360 tablet 3 03/20/20 20 03/07 Discontinued tablet (80 mg total) 10/24 by mouth daily. 20 clopidogreL (PLAVIX) 75 TAKE ONE (1) 90 tablet 1 03/30/2020 10 /0 Discontinued mg tablet TABLET(S) BY /20 MOUTH ONCE A 20 DAY. clopidogreL (PLAVIX) 75 TAKE ONE (1) 90 tablet 1 04/10/2020 10 /0 Discontinued mg tablet TABLET(S) BY 03/26 (Med Li st MOUTH ONCE A 20 Cleanup ) DAY. clopidogreL (PLAVIX) 75 TAKE ONE (1) 90 tablet 1 04/17/2020 Discontinued mg tablet TABLET(S) BY 3/20 MOUTH ONCE A 20 DAY. doxycycline (VIBRAMYCIN) Take 1 capsule 14 capsule 0 0 05/07 Discontinued 100 MG (100 mg total) 08/26 (Stop Taking at capsuleIndications: Toe by mouth 2 20 Discharge) blister without (two) times a infection, left, initial day for 7 days. encounter carvediloL (COREG) 3.125 Take 3.125 mg 0 04/18/202005/07 Discontinued MG tablet by mouth 2 08/26 (Stop Ronny ing at (two) times a 20 Discha rge) day. carvediloL (COREG) 6.25 Take 1 tablet 60 tablet 11 05/17/202007/07 Discontinued MG tablet (6.25 mg total) 08/26 (Sto p Taking at by mouth 2 20 Discharge ) (two) times a day. 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 06/07/2019 Overview: Dr Begum Atrial fibrillation 12/25/2018 Male hypogonadism 12/22/2018 Lower urinary tract symptoms due to benign prostatic h yperplasia 12/16/2018 Increased frequency of urination 12/16/2018 Urinary tract infection 06/22/2018 CKD (chronic kidney disease) stage 4, GFR 15-29 ml/min 06/22/2018 Congestive heart failure 06/22/2018 CHF (congestive heart failure) 06/22/2018 Angina pectoris 06/05/2018 Overview: Added automatically from request for geeta marrero [id number] Chronic combined systolic and diastolic congestive hea rt failure 05/08/2018 Coronary artery disease involving stebbins coronary tawanna ry of stebbins heart 05/08/2018 without angina pectoris Overview: 05/2018 see note new Print Buyer is Dr Marycarmen Rico to add spironolactone and bumex bid S/P TAVR (transcatheter aortic valve replacement) 08/2017 Overview: 12/2019 Dr Coby Mora pt with class III chf f or milrinone Hx of CABG 05/08/2018 Stented coronary artery 05/08/2018 Cardiac resynchronization therapy defibrillator (FORGE HELPER-D ) in place 05/08/2018 PAD (peripheral artery disease) 02/19/2018 Overview: 02/2018 had doppler with mod right and mi ld left Cardioembolic stroke 09/17/2017 Diabetic eye exam 09/18/2016 Overview: 09/2016 Dr Meg Moses with macular degen, cataract and nonprolif DM retinopathy 09/2017 with left eye diabetic retinopath y stable 05/2019 Dr Morgan and has stable DM reti nopathy Acquired hypothyroidism 06/22/2016 Overview: 06/2016 decrease synthroid 0.35 to 0.3 Start to take on empty stomach and repea t in 3 months. Neoplasm of uncertain behavior of skin 05/15/2016 Personal history of skin cancer 05/15/2016 Heart palpitations 03/25/2016 Overview: Dr Rodney Pantoja EP, was told EF 25% per pt Placed on Amiodarone early 03/2016 Renal insufficiency 02/20/2016 Overview: 04/[address] Solomon to decrease PPI Stop calcium Keep bp less than 130/80 07/2016 stage [address] Michelle frye Benign non-nodular prostatic hyperplasia with lower ur inary tract symptoms 02/08/2016 Overview: Dr Chris Hernandez in the past Diabetic polyneuropathy associated with type 2 diabete s mellitus 02/08/2016 Overview: Dr Begum Neurologist [facility] [phone] Pneumonia 01/24/2016 Shortness of breath 01/24/2016 Prostate mass 12/16/2014 Overview: 12/2019 Dr Storm was seen has BPH ED (erectile dysfunction) of organic origin 12/16/2014 Retention of urine 11/03/2014 Diego hematuria 11/03/2014 Gout 06/06/2004 Hypertension Hyperlipidemia GERD (gastroesophageal reflux disease) Disease of thyroid gland Diabetes mellitus Overview: Humulin RU 500 insulin PRN 50-75 units p er day, patient has a sliding scale that he uses Dr Biju Cesar Anemia Resolved Problems Problem Noted Date Resolved Date Reduced libido 12/16/2018 06/07/2019 Keratosis seborrheica 05/15/2016 06/07/2019 Lentigines 05/15/2016 06/07/2019 Multiple nevi 05/15/2016 06/07/2019 Other specified abnormal findings of blood chemistry 016 06/07/2019 Benign prostatic hyperplasia 01/24/2016 06/07/2019 Chronic coronary artery disease 01/24/2016 06/07/20 19 Diabetes mellitus 01/24/2016 06/07/2019 Hypothyroidism 01/24/2016 06/07/2019 Hypertension 01/24/2016 06/07/2019 SOB (shortness of breath) 09/09/2019 Overview: 01/21/199610/[address] Jessee Gutierrez [facility] S/p TAVR, ACID and Pacemaker Dr Rico is the Print Buyer Encounters Date Type Specialty Care Team Description 05/19/2020 Telephone Cardiology Helder Ball Refill LUCERO Jimenez 05/18/2020 Nurse Only Cardiology Dre Salcido, LUCERO 05/18/2020 Travel 05/18/2020 Nurse Only Cardiology Dre Salcido, RN 05/15/2020 Refill Neurology Farhad Begum MD 05/12/2020 Orders Only Cardiology Coby Mora, Chronic combin ed systolic MD and diastolic c ongestive heart failure ( HCC) 05/11/2020 Documentation Medical Records Provider, Unknown 05/08/2020 Hospital Encounter Cardiology Naga Yates (Primary Dx); - Chetan Moss MD Weakness; 05/18/2020 Perdue, Fever and chill s; MD Nixon Essential hypertension Anette Hussein MD 05/08/2020 Telephone Cardiology Casie Rosen, RN 05/08/2020 Telephone Cardiology Rafael Godinez Declining heal th as per L, MA home health steven se 05/05/2020 Office Visit Cardiology Coby Mora 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) (Primary Dx); MD Acute on chroni c combined systolic and diastolic congestive heart failure (HCC); S/P TAVR (trans catheter aortic valve replacement); CKD (chronic ki dney disease) stage 4, GFR 15-29 ml/min (HCC) 05/05/2020 Telephone Cardiology Sonyammarachaelo, Med Dose Change Penny, LUCERO 05/05/2020 Travel 05/05/2020 Orders Only Cardiology Coby Mora, Deshawn combin ed systolic MD and diastolic c ongestive heart failure ( HCC) 05/03/2020 Office Visit Internal Sukh, Annual physical exam (Primary Dx); Medicine Marcia Currie, Toe blister wi thout infection, left, initial encounter; Flu vaccine nechristina d; Chronic kidney disease, stage 4 (severe) (HCC); Peripheral vasc ular disease, unspecified (HCC); Congestive hear t failure, unspecified HF chronicity, unspecified heart failure type (HCC); Type 2 diabetes mellitus with hyperglycemia, with long-term current use of insulin (HCC); Chronic obstruc tive pulmonary disease, unspecified COPD type (HCC); Pure hyperchole sterolemia; Diabetic polyne uropathy associated with type 2 diabetes mellitus (HCC); Toe infection 05/03/2020 Travel 05/01/2020 Refill Cardiology Sean Rico Refill MD Isa 04/28/2020 Refill Cardiology Sean Rico Med Refill MD Isa 04/27/2020 Telephone Cardiology Jessika, Med Dose Change LUCERO Francis 04/26/2020 Surgery Procedural Jeri Glez, Right heart c ath [[id number] Cardiology (CPT)] 04/26/2020 Hospital Encounter Procedural Jeri Glez Chronic combined systolic Cardiology and diastolic c ongestive heart failure ( HCC) 04/26/2020 Refill Cardiology Jessika, Med Refill Penny, LUCERO 04/26/2020 Orders Only Cardiology Coby Mora, Deshawn combin ed systolic MD and diastolic c ongestive heart failure ( HCC) (Primary Dx) 04/26/2020 Travel 04/25/2020 Telephone Cardiology Rafael Godinez Orders MARCO ANTONIO Santillan 04/25/2020 Documentation Medical Records Provider, Unknown 04/24/2020 Lab Lab Coby Mora, Combined systo lic and diastolic heart failure, unspecified HF chronicity (HCC); MD 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) 04/24/2020 Travel 04/24/2020 Telephone Cardiology Jessika, Paulina Francis RN 04/17/2020 Telephone Procedural Rafael Godinez Cardiology MARCO ANTONIO Santillan 04/17/2020 Refill Cardiology Sean Rico Refill MD Isa 04/14/2020 Office Visit Cardiology Coby Mora, 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) (Primary Dx); S/P TAVR (trans catheter aortic valve replacement); CKD (chronic ki dney disease) stage 4, GFR 15-29 ml/min (HCC); Cardiac resynch ronization therapy defibrillator (FORGE HELPER-D) in place 04/14/2020 Travel 04/10/2020 Refill Cardiology Sean Rico Med Refill MD Isa 04/07/2020 Travel 04/04/2020 Refill Cardiology Sukh Med Refill Marcia Currie MD 03/30/2020 Remote Monitoring Cardiology Cat Phillips Chronic combined systolic HOE WORKER and diastolic h eart failure (HCC) 03/30/2020 Refill Cardiology Sean Ricoill MD Isa 03/20/2020 Orders Only Cardiology Deshawn Zheng combine d josh Alvarez RN and diastolic c ongestive heart failure ( HCC) (Primary Dx) 03/20/2020 Orders Only Cardiology Kim Zheng RN 03/17/2020 Office Visit Cardiology Coby Mora, 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) (Primary Dx); S/P TAVR (trans catheter aortic valve replacement); Coronary artery disease involving stebbins coronary artery of stebbins heart without angina pectoris; Paroxysmal atri al fibrillation (HCC); CKD (chronic ki dney disease) stage 4, GFR 15-29 ml/min (HCC); Hx of CABG; Chronic anticoa gulation 03/17/2020 Travel 03/15/2020 Nurse Only Cardiology Dre Salcido, LUCERO 03/15/2020 Orders Only Cardiology Loly Chronic combine d systolic LUCERO Erickson and diastolic c ongestive heart failure ( HCC) (Primary Dx) 03/09/2020 Telemedicine Cardiology [facility] Acute on chr onic combined na, Reyna, HOE WORKER systolic and diastolic congestive hear t failure (HCC) (Primary Dx) 03/03/2020 Travel 02/24/2020 Surgery Procedural Coby Mora, Right heart ca th with Cardiology MD jessica pitt [[id number] (CPT)] 02/24/2020 Hospital Encounter Cardiology Coby Mora, Combined systolic and diastolic heart failure, unspecified HF chronicity (HCC) (Primary Dx); - Heart failure, unspecified HF chronicity, unspecified heart failure type (HCC); 03/02/2020 Bladder outlet obstruction 02/24/2020 Travel 02/23/2020 Lab Lab Coby Mora, Chronic combin ed systolic MD and diastolic c ongestive heart failure ( HCC) 02/23/2020 Travel 02/23/2020 Telephone Cardiology lorrie Rosen RN 02/22/2020 Telephone Cardiology Norm Aubrey Alvarez RN 02/22/2020 Orders Only Cardiology Kim Zheng RN 02/21/2020 Telephone Cardiology Norm, Follow-up LUCERO Alvarez 02/18/2020 Telemedicine Cardiology Coby Mora, 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) (Primary Dx); S/P TAVR (trans catheter aortic valve replacement); CKD (chronic ki dney disease) stage 4, GFR 15-29 ml/min (HCC); Cardiac resynch ronization therapy defibrillator (FORGE HELPER-D) in place; Chronic anticoa gulation 02/11/2020 Office Visit Cardiology Coby Mora, 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) (Primary Dx); S/P TAVR (trans catheter aortic valve replacement); Shortness of br eath; CKD (chronic ki dney disease) stage 4, GFR 15-29 ml/min (HCC); Cardiac resynch ronization therapy defibrillator (FORGE HELPER-D) in place 02/11/2020 Travel 02/04/2020 Office Visit Internal Sukh, Primary insomni a (Primary Dx); Medicine Marcia Currie, Peripheral vas cular disease, unspecified (HCC); Chronic kidney disease, stage 4 (severe) (HCC); Secondary hyper parathyroidism of renal origin (HCC); Coagulation def ect, unspecified (HCC); Ecchymoses, spo ntaneous; Urinary frequen cy 02/03/2020 Travel 02/02/2020 Telephone Cardiology Farrukh Lopez, Follow-up RN 02/01/2020 Telephone Cardiology Farrukh Lopez, Follow-up RN 02/01/2020 Orders Only Cardiology Farrukh Lopez, Hyperlipidemia , RN unspecified hyperlipidemia type (Primary Dx) 01/31/2020 [facility] on [facility]ic combined Reyna hernandez NP systolic and diastolic congestive hear t failure (HCC) (Primary Dx) 01/31/2020 Telephone Cardiology Farrukh Lopez, Follow-up RN 01/26/2020 Refill Cardiology Sean Rico Med Refill MD Isa 01/26/2020 Travel 01/25/2020 Orders Only Procedural Mendoza, Cardiology LUCERO Chang 01/20/2020 Hospital Encounter Cardiology Paul, Acute sys akhil cortez - MD Alejandro heart failure (HCC) 01/25/2020 Roseann Brewster (Primary Dx) MD Garth Charles Amitkumar Natvarlal, MD 01/12/2020 Office Visit Neurology Farhad Begum MD Diabetic espinoza yneuropathy associated with type 2 diabetes mellitus (HCC) (Primary Dx); 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) 01/12/2020 Travel 01/04/2020 Telephone Cardiology Norm, Follow-up LUCERO Alvarez 01/04/2020 Telephone Cardiology Norm, Follow-up LUCERO Alvarez 01/03/2020 Telephone Cardiology Norm, Follow-up LUCERO Alvarez 12/31/2019 Lab Lab Coby Mora, Systolic conge stive heart MD failure, unspec ified HF chronicity (HCC ) 12/31/2019 Office Visit Cardiology Coby Mora, Chronic combin ed systolic and diastolic congestive heart failure, NYHA class 3 (HCC) (Primary Dx); S/P TAVR (trans catheter aortic valve replacement); Hx of CABG; Cardiac resynch ronization therapy defibrillator (FORGE HELPER-D) in place; Chronic anticoa gulation; CKD (chronic ki dney disease) stage 4, GFR 15-29 ml/min (HCC) 12/31/2019 Travel 12/27/2019 Office Visit Cardiology Sean Rico Coronary artery disease involving stebbins heart with angina pectoris, unspecified vessel or lesion type (HCC) (Primary Dx); MD Isa Aortic valve di doyle; Systolic conges tive heart failure, unspecified HF chronicity (HCC); Hx of CABG 12/27/2019 Travel 12/23/2019 Travel 12/17/2019 Anesthesia Event Urology Yosi Bal MD Garza, Roberto Jr. 12/17/2019 Surgery Urology Dalton Storm CYSTOSCOPY, GEE Weaver MD PHOTOSELECTIVE VAPORIZATION OF PROSTATE, USING LASER 12/17/2019 Hospital Encounter General Internal Dalton Storm - Medicine MD Owen 12/18/2019 12/08/2019 Travel 12/02/2019 Pre-Admit Testing Pre-Admission Dalton Storm No Show Appointment Testing MD Owen 12/01/2019 Travel 11/23/2019 Orders Only Internal Cat Luz (Primary D x) Chaim Currie MD 11/22/2019 Telephone Internal Chaim Luz MD 11/18/2019 Surgery Procedural Chris Gna, Right heart cath [[id number] Cardiology MD (CPT)] 11/18/2019 Hospital Encounter Procedural Chris Gan, Cardiology 11/18/2019 Travel 11/15/2019 Orders Only Cardiology Chris Gan, Coronary art kimberlyn disease involving stebbins coronary artery of stebbins heart without angina pectoris (Primary Dx); Congestive hear t failure, unspecified HF chronicity, unspecified heart failure type (HCC) 11/15/2019 Telephone Cardiology Norm, Return Call LUCERO Alvarez 11/12/2019 Travel 11/12/2019 Telephone Cardiology Norm, Return Call LUCERO Alvarez 11/12/2019 Orders Only Cardiology Coby Mora MD 11/11/2019 Telephone Cardiology lorrie Rosen RN 11/04/2019 Telemedicine Internal Cat Luz (Primary D x) Chaim Currie MD 11/01/2019 Refill Neurology Billie Husain MA 10/19/2019 Telemedicine Internal Sukh, Type 2 diabetes mellitus with hyperglycemia, with long-term current use of insulin (HCC) (Primary Dx); Chaim Currie, Peripheral vas cular disease, unspecified (HCC); Chronic obstruc tive pulmonary disease, unspecified COPD type (HCC); Chronic kidney disease, stage 4 (severe) (HCC); Morbid (severe) obesity due to excess calories (HCC); Secondary hyper parathyroidism of renal origin (HCC); Coagulation def ect, unspecified (HCC); Abnormal thyroi d function test; Pure hyperchole sterolemia; Other specified hypothyroidism; Primary insomni a 09/17/2019 Office Visit Cardiology Coby Mora, Acute on chron ic combined systolic and diastolic heart failure (HCC) (Primary Dx); CKD (chronic ki dney disease) stage 4, GFR 15-29 ml/min (HCC); Paroxysmal atri al fibrillation (HCC); Chronic anticoa gulation 09/17/2019 Travel 09/12/2019 Orders Only Transplant [facility] Chronic combi kimberlee systolic Theordore, HOE WORKER-C and diastoli c congestive heart failure ( HCC) (Primary Dx) 09/04/2019 Orders Only Procedural Reji, Cardiology Bernardo, LUCERO 09/02/2019 Surgery Procedural Sean Rico Right heart cat h [[id number] Cardiology MD Isa (CPT)] 09/02/2019 Hospital Encounter General Internal Sean Rico Hx of CABG; - Medicine MD Isa Aortic valve disorder; 09/09/2019 Alejandro Kruse Coronary arter y disease involving stebbins coronary artery of stebbins heart without angina pectoris; MD Richard SOB (shortness of breath); Stented coronar y artery 08/30/2019 Orders Only Cardiology Souleymane Hx of CABG ([facility] Dx); MARCO ANTONIO Luna Aortic valve di sorder; Coronary artery disease involving stebbins coronary artery of stebbins heart without angina pectoris; SOB (shortness of breath); Stented coronar y artery 08/27/2019 Refill Internal Sukh, Other specified Medicine Marcia Currie, hypothyroidism 08/20/2019 Refill Internal Sukh, Other specified Medicine Marcia Currie, hypothyroidism 08/02/2019 Telephone Internal Francisco, Chaim Griggs MA 07/27/2019 Office Visit Cardiology Sean Rico Hx of CABG (Isaura jordan Dx); MD Isa Aortic valve di sorder 07/27/2019 Office Visit Internal Sukh, Other chest dung n (Primary Dx); Medicine Marcia Currie, Peripheral vas cular disease, unspecified (HCC); Chronic obstruc tive pulmonary disease, unspecified COPD type (HCC); Chronic kidney disease, stage 4 (severe) (HCC); Secondary hyper parathyroidism of renal origin (HCC); Coagulation def ect, unspecified (HCC); Atherosclerosis of stebbins 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 (HCC); History of atri al fibrillation 07/22/2019 Nurse Triage Access Poly Pittman RN 07/13/2019 Office Visit Neurology Farhad Begum MD 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) (Primary Dx); Diabetic polyne uropathy associated with type 2 diabetes mellitus (HCC) 07/11/2019 Refill Cardiology Sean Rico MD 06/17/2019 Orders Only Internal Sukh, Renal insuffici ency Medicine Marcia Currie (Primary Dx) 06/14/2019 Office Visit Internal Sukh, Shortness of br eath (Primary Dx); Shannon Kidd aller gic rhinitis due to pollen; Chronic kidney disease, stage 4 (severe) (HCC); Chronic obstruc tive pulmonary disease, unspecified COPD type (HCC); Other specified hypothyroidism; Diabetic polyne uropathy associated with type 2 diabetes mellitus (HCC); Congestive hear t failure, unspecified HF chronicity, unspecified heart failure type (HCC); Essential hyper tension 06/11/2019 Office Visit Cardiology Sean Rico (shortness of breath) (Primary Dx); MD Isa Coronary artery disease involving stebbins coronary artery of stebbins heart without angina pectoris; Hx of CABG; Aortic valve di sease 06/05/2019 Refill Internal Sukh, Essential hyper tension Chaim Currie MD 05/28/2019 Office Visit Neurology Farhad Begum MD Late onset A lzheimer's disease without behavioral dist urbance (HCC) (Primary Dx) 05/22/2019 Refill Cardiology Sean Rico Refill MD Isa after 05/21/2019 Immunizations Name Administration Dates Next Due FLUZONE HIGH-DOSE PF 05/03/2020, 04/15/2019, 04/05/2017 Influenza Whole 04/16/2018, 04/20/2016, 04/24/2015 Influenza, Quadrivalent 04/23/2018 Pneumococcal Conjugate 06/20/2011 Pneumococcal Conjugate 13-Valent 04/20/2016 Pneumococcal Polysaccharide 04/11/2016 Td, Unspecified 03/22/2017 Tdap 10/23/2016 Zoster 10/23/2016 Surgical History Surgery Date Site/Laterality Comments GALLBLADDER SURGERY 12/22/1985 THYROID SURGERY 10/13/1987 Gland Removed VEIN BYPASS SURGERY 11/04/1997 - Quad Bypass / Dr Curtis 12/04/1997 [place] STENT 05/07/2008 - 06/05/2008 CARDIOVASCULAR STRESS TEST 07/07/2008 - Dr Will ah/ Normal study 07/06/2009 AORTIC VALVE REPLACEMENT 12/14/2015 Dr Matt rodriguez, and Dr Jessee Gutierrez, Dr Betts Transcatheter COLONOSCOPY 12/09/[address] Jarvis Al hes for 5 year fu CARDIAC SURGERY Quadruple by pass CARDIAC VALVE REPLACEMENT CARDIAC DEFIBRILLATOR 06/09/2016 Dr. Gonzalez i at [facility] CORONARY ANGIOPLASTY WITH 09/2017 and has planned STENT PLACEMENT to open up secon d stent 11/26/2017. Dr Adele gore CORONARY ANGIOPLASTY WITH 018 and will have STENT PLACEMENT other stent open ed up 11/26/2017 Dr Leonid miranda (with Dr Gutierrez) CARDIAC CATHETERIZATION 06/10/2018 N/A Procedur e: Selective coronary angiogr aphy; Surgeon: Evelina Rico MD; Locatio n: [facility] Document Imaging Specialist [facility]; Servi ce: Cardiology; Lat erality: N/A; Medical devices from this surgery are in the Implants section . CARDIAC CATHETERIZATION 06/10/2018 N/A Procedur e: Cv selective angiography bypa ss graft; Surgeon: Sean Rico MD; Location: [facility] Document [facility] Special[facility]; Service: Cardiol ogy; Laterality: N/A; Medical devices from this surgery are in the Implants section . CARDIAC CATHETERIZATION 06/10/2018 N/A Procedur e: Cv left internal mammary graft; Surgeon: Evelina Rico MD; Locatio n: [facility] Document Imaging Specialist Inva sive Location; Servi ce: Cardiology; Lat erality: N/A; Medical devices from this surgery are in the Implants section . CARDIAC CATHETERIZATION 09/02/2019 N/A Procedur e: Right heart cath; Surgeon: Sean Rico MD; Location: [facility] Document Imaging Specialist [facility]; Service: Cardiol ogy; Laterality: N/A; CARDIAC CATHETERIZATION 09/02/2019 N/A Procedur e: Selective coronary angiogr aphy; Surgeon: Evelina Rico MD; Locatio n: [facility] Document Imaging Specialist Inva sive Location; Servi ce: Cardiology; Lat erality: N/A; CARDIAC CATHETERIZATION 09/02/2019 N/A Procedur e: Cv selective angiography bypa ss graft; Surgeon: Sean Rico MD; Location: [facility] Document Imaging Specialist [facility]; Service: Cardiol ogy; Laterality: N/A; CARDIAC CATHETERIZATION 09/02/2019 N/A Procedur e: Cv left internal mammary graft; Surgeon: Evelina Rico MD; Locatio n: [facility] Document Imaging Specialist Inva sive Location; Servi ce: Cardiology; Lat erality: N/A; angiograph y CARDIAC CATHETERIZATION 09/02/2019 N/A Procedur e: Cv left heart cath; Surgeon: Sean Rico MD; Location: [facility] Document Imaging Specialist Invasive Loc [facility]; Service: Cardiol ogy; Laterality: N/A; BYPASS GRAFT quad bypass CARDIAC CATHETERIZATION 11/18/2019 N/A Procedur e: Right heart cath; Surgeon: Chris Gan MD; Lo cation: [facility] Document Imaging Specialist Invasive Location; Servi ce: Cardiovascular; Laterality: N/A; recheck his fill ing pressures and ca rdiac index. [facility] still [facility] [place] per Amarilys Mora CYSTOSCOPY, WITH 12/17/2019 N/A Procedure: CYST OSCOPY, PHOTOSELECTIVE WITH PHOTOSELECT BREEZY VAPORIZATION OF PROSTATE, VAPORI ZATION OF USING LASER PROSTATE, USING LASER; Surgeon: Dalton Storm MD; Loca tion: [facility]; Se rvice: Urology; Latera lity: N/A; CARDIAC CATHETERIZATION 02/24/2020 N/A Procedur e: Right heart cath with cardio mems placement; Surg rashel: Coby Mora MD ; Location: [facility] Document [facility] Special[facility]; Service: Cardiov ascular; Laterality: N/A ; Medical devices from this surgery are in the Implants section . CARDIAC CATHETERIZATION 04/26/2020 N/A Procedur e: Right heart cath; Surgeon: Jeri Glez MD; Lo cation: [facility] Document Imaging Specialist Invasive Location; Servi ce: Cardiovascular; Laterality: N/A; Medical History Medical History Date Comments SOB (shortness of breath) 01/21/1996 Foot pain 11/2002 Gout 06/2004 Anemia Pneumonia Hypertension Hyperlipidemia GERD (gastroesophageal reflux disease) Clotting disorder (HCC) Cancer (HCC) thyroid removed Coronary artery disease Heart disease Skin disease Diabetic autonomic neuropathy associated with type 2 diabetes mellitus (HCC) Type 2 diabetes mellitus (HCC) 150 10 un its, 175 15 unit for the Humulin R 500 Stroke (HCC) Hypothyroidism Systolic congestive heart failure 05/08/2018 (HCC) Mild cognitive impairment Family History Medical History Relation Name Comments Coronary artery disease Father Early Father heart attack Relation Name Status Comments Father Mother Social History Tobacco Use Types Packs/Day Years Used Date Never Smoker Smokeless Tobacco: Never Used Alcohol Use Drinks/Week oz/Week Comments No Sex Assigned at Date Recorded Not on file COVID-19 Exposure Response Date Recorded In the last month, have you been in contact Unable to assess 05/18/2020 1:40 PM CLINICAL ASSESSMENT MANAGER with someone who was confirmed or suspected to have Coronavirus / COVID-19? Last Filed Vital Signs Vital Sign Reading Time Taken Comments Blood Pressure 116/69 05/18/2020 11:55 AM CLINICAL ASSESSMENT MANAGER Pulse 71 05/18/2020 11:55 AM CLINICAL ASSESSMENT MANAGER Temperature 36.2 C (97.1 F) 05/18/2020 11:55 AM CLINICAL ASSESSMENT MANAGER Respiratory Rate 18 05/18/2020 11:55 AM CLINICAL ASSESSMENT MANAGER Oxygen Saturation 97% 05/18/2020 11:55 AM CLINICAL ASSESSMENT MANAGER Inhaled Oxygen Concentration - - Weight 92.5 kg (204 lb) 05/18/2020 4:22 AM CLINICAL ASSESSMENT MANAGER Height 180.3 cm (5' 11") 05/10/2020 7:00 PM CLINICAL ASSESSMENT MANAGER Body Mass Index 28.45 05/10/2020 7:00 PM CLINICAL ASSESSMENT MANAGER Plan of Treatment Date Type Specialty Care Team Description 05/23/2020 Telemedicine Cardiology 06/06/2020 Hospital Encounter Urology Dalton Storm MD [address] [place], [place] [address] [phone] 06/06/2020 Surgery Urology Dalton Storm MD [facility] [address] [place] [address] [phone] 06/09/2020 Office Visit Cardiology Coby Mora MD [address] [place] [address] [phone] 06/13/2020 Office Visit Cardiology Sean Rico MD [address] [place] [address] [phone] 07/12/2020 [place] [address] [facility] [address] [place] [address] 11/01/2020 Office Visit Internal Medicine Marcia Luz MD [address] [place], [place] [address] [phone] Health Maintenance Due Date Last Done Comments SHINGLES VACCINES (#2) 12/23/2016 10/23/2016 DIABETES: RETINAL EYE EXAM 07/29/2020 07/29/2018, 8, 08/06/2017 DIABETIC FOOT EXAM 05/08/2021 05/08/2020, 12/18/2018, 11/17, Additional history exists 65+ PNEUMOCOCCAL VACCINE Completed 04/20/2016, 04/11/2016, 06/20/2011 INFLUENZA VACCINE Completed 05/03/2020, 04/15/2019, 2017, Additional history exists Implants Implanted Type Area Business Services Sales Representative Device Shelf Model / Identifier Expiration Serial / Date Lot Cardiomems [employer] Sensor [employer] Delivery Systems - [id number] Cardiovas cular N/A: [employer] [id number] / Implanted: 02/24/2020 at [facility] (Quantity not on file) Implants N/A INC / System Clsr Sut Meditd 6fr Perclose Proglide - [id number] Surgic al N/A: PROCTOR VASCULAR 03/06/2020 [id number] / Implanted: 06/10/2018 at [facility] (Quantity not on file) Imp lants; N/A DEVICES / Expanders; [id number] Extenders; Surgical Wires Procedures Procedure Name Priority Date/Time Associated Diagnosis Comme nts POC GLUCOSE Routine 05/18/2020 8:14 Results for this AM CLINICAL ASSESSMENT MANAGER procedure are i n the results section. HC COMPLETE BLD COUNT Routine 05/18/2020 5:00 Re sults for this W/AUTO DIFF AM CLINICAL ASSESSMENT MANAGER procedure are i n the results section. ESTIMATED GFR Routine 05/18/2020 4:00 Results fo r this AM CLINICAL ASSESSMENT MANAGER procedure are i n the results section. MAGNESIUM LEVEL Routine 05/18/2020 4:00 Results for this AM CLINICAL ASSESSMENT MANAGER procedure are i n the results section. BASIC METABOLIC PANEL Routine 05/18/2020 4:00 Re sults for this AM CLINICAL ASSESSMENT MANAGER procedure are i n the results section. POC GLUCOSE Routine 05/17/2020 9:12 Results for this PM CLINICAL ASSESSMENT MANAGER procedure are i n the results section. POC GLUCOSE Routine 05/17/2020 5:51 Results for this PM CLINICAL ASSESSMENT MANAGER procedure are i n the results section. OSMOLALITY, URINE Routine 05/17/2020 1:40 Result s for this PM CLINICAL ASSESSMENT MANAGER procedure are i n the results section. CREATININE LEVEL, Routine 05/17/2020 1:40 Result s for this URINE, RANDOM PM CLINICAL ASSESSMENT MANAGER procedure are in the results section. SODIUM LEVEL, URINE, Routine 05/17/2020 1:40 Res ults for this RANDOM PM CLINICAL ASSESSMENT MANAGER procedure are i n the results section. SODIUM LEVEL STAT 05/17/2020 1:40 Results for this PM CLINICAL ASSESSMENT MANAGER procedure are i n the results section. OSMOLALITY, SERUM Routine 05/17/2020 1:30 Result s for this PM CLINICAL ASSESSMENT MANAGER procedure are i n the results section. POC GLUCOSE Routine 05/17/2020 12:01 Results for this PM CLINICAL ASSESSMENT MANAGER procedure are i n the results section. B NATRIURETIC PEPTIDE Routine 05/17/2020 9:00 Re sults for this AM CLINICAL ASSESSMENT MANAGER procedure are i n the results section. HC COMPLETE BLD COUNT Routine 05/17/2020 9:00 Re sults for this W/AUTO DIFF AM CLINICAL ASSESSMENT MANAGER procedure are i n the results section. POC GLUCOSE Routine 05/17/2020 8:12 Results for this AM CLINICAL ASSESSMENT MANAGER procedure are i n the results section. LACTIC ACID LEVEL Routine 05/17/2020 7:41 Result s for this AM CLINICAL ASSESSMENT MANAGER procedure are i n the results section. ESTIMATED GFR Routine 05/17/2020 7:39 Results fo r this AM CLINICAL ASSESSMENT MANAGER procedure are i n the results section. MAGNESIUM LEVEL Routine 05/17/2020 7:39 Results for this AM CLINICAL ASSESSMENT MANAGER procedure are i n the results section. COMPREHENSIVE METABOLIC Routine 05/17/2020 7:39 Results for this PANEL AM CLINICAL ASSESSMENT MANAGER procedure are i n the results section. PARTIAL THROMBOPLASTIN Routine 05/17/2020 5:20 R esults for this TIME (PTT) AM CLINICAL ASSESSMENT MANAGER procedure are i n the results section. POC GLUCOSE Routine 05/16/2020 9:29 Results for this PM CLINICAL ASSESSMENT MANAGER procedure are i n the results section. POC GLUCOSE Routine 05/16/2020 6:00 Results for this PM CLINICAL ASSESSMENT MANAGER procedure are i n the results section. POC GLUCOSE Routine 05/16/2020 12:13 Results for this PM CLINICAL ASSESSMENT MANAGER procedure are i n the results section. POC GLUCOSE Routine 05/16/2020 8:28 Results for this AM CLINICAL ASSESSMENT MANAGER procedure are i n the results section. PARTIAL THROMBOPLASTIN Routine 05/16/2020 5:59 R esults for this TIME (PTT) AM CLINICAL ASSESSMENT MANAGER procedure are i n the results section. POC GLUCOSE Routine 05/15/2020 9:17 Results for this PM CLINICAL ASSESSMENT MANAGER procedure are i n the results section. POC GLUCOSE Routine 05/15/2020 5:36 Results for this PM CLINICAL ASSESSMENT MANAGER procedure are i n the results section. NM BONE SCAN 3 PHASE Routine 05/15/2020 4:03 Res ults for this PM CLINICAL ASSESSMENT MANAGER procedure are i n the results section. POC GLUCOSE Routine 05/15/2020 11:55 Results for this AM CLINICAL ASSESSMENT MANAGER procedure are i n the results section. POC GLUCOSE Routine 05/15/2020 7:53 Results for this AM CLINICAL ASSESSMENT MANAGER procedure are i n the results section. ESTIMATED GFR Routine 05/15/2020 6:25 Results fo r this AM CLINICAL ASSESSMENT MANAGER procedure are i n the results section. PHOSPHORUS LEVEL Routine 05/15/2020 6:25 Results for this AM CLINICAL ASSESSMENT MANAGER procedure are i n the results section. HC COMPLETE BLD COUNT Routine 05/15/2020 6:25 Re sults for this W/AUTO DIFF AM CLINICAL ASSESSMENT MANAGER procedure are i n the results section. MAGNESIUM LEVEL Routine 05/15/2020 6:25 Results for this AM CLINICAL ASSESSMENT MANAGER procedure are i n the results section. BASIC METABOLIC PANEL Routine 05/15/2020 6:25 Re sults for this AM CLINICAL ASSESSMENT MANAGER procedure are i n the results section. PARTIAL THROMBOPLASTIN Routine 05/15/2020 6:25 R esults for this TIME (PTT) AM CLINICAL ASSESSMENT MANAGER procedure are i n the results section. POC GLUCOSE Routine 05/14/2020 8:54 Results for this PM CLINICAL ASSESSMENT MANAGER procedure are i n the results section. POC GLUCOSE Routine 05/14/2020 5:13 Results for this PM CLINICAL ASSESSMENT MANAGER procedure are i n the results section. POC GLUCOSE Routine 05/14/2020 12:50 Results for this PM CLINICAL ASSESSMENT MANAGER procedure are i n the results section. POC GLUCOSE Routine 05/14/2020 8:09 Results for this AM CLINICAL ASSESSMENT MANAGER procedure are i n the results section. HC COMPLETE BLD COUNT Routine 05/14/2020 5:30 Re sults for this W/AUTO DIFF AM CLINICAL ASSESSMENT MANAGER procedure are i n the results section. PARTIAL THROMBOPLASTIN Routine 05/14/2020 5:30 R esults for this TIME (PTT) AM CLINICAL ASSESSMENT MANAGER procedure are i n the results section. ESTIMATED GFR Routine 05/14/2020 4:00 Results fo r this AM CLINICAL ASSESSMENT MANAGER procedure are i n the results section. BASIC METABOLIC PANEL Routine 05/14/2020 4:00 Re sults for this AM CLINICAL ASSESSMENT MANAGER procedure are i n the results section. POC GLUCOSE Routine 05/13/2020 9:09 Results for this PM CLINICAL ASSESSMENT MANAGER procedure are i n the results section. POC GLUCOSE Routine 05/13/2020 5:53 Results for this PM CLINICAL ASSESSMENT MANAGER procedure are i n the results section. POC GLUCOSE Routine 05/13/2020 11:26 Results for this AM CLINICAL ASSESSMENT MANAGER procedure are i n the results section. POC GLUCOSE Routine 05/13/2020 7:07 Results for this AM CLINICAL ASSESSMENT MANAGER procedure are i n the results section. ESTIMATED GFR Routine 05/13/2020 4:06 Results fo r this AM CLINICAL ASSESSMENT MANAGER procedure are i n the results section. MAGNESIUM LEVEL Routine 05/13/2020 4:06 Results for this AM CLINICAL ASSESSMENT MANAGER procedure are i n the results section. BASIC METABOLIC PANEL Routine 05/13/2020 4:06 Re sults for this AM CLINICAL ASSESSMENT MANAGER procedure are i n the results section. B NATRIURETIC PEPTIDE Routine 05/13/2020 4:06 Re sults for this AM CLINICAL ASSESSMENT MANAGER procedure are i n the results section. CBC HEMOGRAM Routine 05/13/2020 4:06 Results for this AM CLINICAL ASSESSMENT MANAGER procedure are i n the results section. PARTIAL THROMBOPLASTIN Routine 05/13/2020 4:06 R esults for this TIME (PTT) AM CLINICAL ASSESSMENT MANAGER procedure are i n the results section. POC GLUCOSE Routine 05/12/2020 9:08 Results for this PM CLINICAL ASSESSMENT MANAGER procedure are i n the results section. POC GLUCOSE Routine 05/12/2020 6:01 Results for this PM CLINICAL ASSESSMENT MANAGER procedure are i n the results section. POC GLUCOSE Routine 05/12/2020 1:44 Results for this PM CLINICAL ASSESSMENT MANAGER procedure are i n the results section. ESTIMATED GFR Routine 05/12/2020 4:55 Results fo r this AM CLINICAL ASSESSMENT MANAGER procedure are i n the results section. HC COMPLETE BLD COUNT Routine 05/12/2020 4:55 Re sults for this W/AUTO DIFF AM CLINICAL ASSESSMENT MANAGER procedure are i n the results section. BASIC METABOLIC PANEL Routine 05/12/2020 4:55 Re sults for this AM CLINICAL ASSESSMENT MANAGER procedure are i n the results section. PARTIAL THROMBOPLASTIN Routine 05/12/2020 4:55 R esults for this TIME (PTT) AM CLINICAL ASSESSMENT MANAGER procedure are i n the results section. PARTIAL THROMBOPLASTIN Routine 05/11/2020 10:52 R esults for this TIME (PTT) PM CLINICAL ASSESSMENT MANAGER procedure are i n the results section. POC GLUCOSE Routine 05/11/2020 7:20 Results for this PM CLINICAL ASSESSMENT MANAGER procedure are i n the results section. TTE COMPLETE, W Routine 05/11/2020 5:13 Results for this CONTRAST, W DOPPLER PM CLINICAL ASSESSMENT MANAGER procedur e are in ([id number]) the results section. PARTIAL THROMBOPLASTIN STAT 05/11/2020 3:55 R esults for this TIME (PTT) PM CLINICAL ASSESSMENT MANAGER procedure are i n the results section. POC GLUCOSE Routine 05/11/2020 12:12 Results for this PM CLINICAL ASSESSMENT MANAGER procedure are i n the results section. POC GLUCOSE Routine 05/11/2020 8:33 Results for this AM CLINICAL ASSESSMENT MANAGER procedure are i n the results section. PARTIAL THROMBOPLASTIN STAT 05/11/2020 8:15 R esults for this TIME (PTT) AM CLINICAL ASSESSMENT MANAGER procedure are i n the results section. ESTIMATED GFR Routine 05/11/2020 6:24 Results fo r this AM CLINICAL ASSESSMENT MANAGER procedure are i n the results section. MAGNESIUM LEVEL Routine 05/11/2020 6:24 Results for this AM CLINICAL ASSESSMENT MANAGER procedure are i n the results section. LACTIC ACID LEVEL Routine 05/11/2020 6:24 Result s for this AM CLINICAL ASSESSMENT MANAGER procedure are i n the results section. COMPREHENSIVE METABOLIC Routine 05/11/2020 6:24 Results for this PANEL AM CLINICAL ASSESSMENT MANAGER procedure are i n the results section. HC COMPLETE BLD COUNT Routine 05/11/2020 6:24 Re sults for this W/AUTO DIFF AM CLINICAL ASSESSMENT MANAGER procedure are i n the results section. PARTIAL THROMBOPLASTIN STAT 05/10/2020 10:29 R esults for this TIME (PTT) PM CLINICAL ASSESSMENT MANAGER procedure are i n the results section. POC GLUCOSE Routine 05/10/2020 7:10 Results for this PM CLINICAL ASSESSMENT MANAGER procedure are i n the results section. BLOOD CULTURE, AEROBIC Routine 05/10/2020 3:00 R esults for this & ANAEROBIC PM CLINICAL ASSESSMENT MANAGER procedure are i n the results section. BLOOD CULTURE, AEROBIC Routine 05/10/2020 2:45 R esults for this & ANAEROBIC PM CLINICAL ASSESSMENT MANAGER procedure are i n the results section. PARTIAL THROMBOPLASTIN STAT 05/10/2020 2:40 R esults for this TIME (PTT) PM CLINICAL ASSESSMENT MANAGER procedure are i n the results section. POC GLUCOSE Routine 05/10/2020 1:34 Results for this PM CLINICAL ASSESSMENT MANAGER procedure are i n the results section. XR PICC CHEST PORTABLE Routine 05/10/2020 12:16 Fever and chil ls Results for this PM CLINICAL ASSESSMENT MANAGER procedure are i n the results section. PICC INSERTION REQUEST Routine 05/10/2020 12:11 R esults for this PM CLINICAL ASSESSMENT MANAGER procedure are i n the results section. US ANKLE BRACHIAL INDEX Routine 05/10/2020 11:30 Results for this AM CLINICAL ASSESSMENT MANAGER procedure are i n the results section. US DUPLEX ARTERIAL Routine 05/10/2020 11:00 Resul ts for this LOWER EXTREMITY AM CLINICAL ASSESSMENT MANAGER procedure ar e in BILATERAL the results section. POC GLUCOSE Routine 05/10/2020 8:39 Results for this AM CLINICAL ASSESSMENT MANAGER procedure are i n the results section. ESTIMATED GFR Routine 05/10/2020 4:43 Results fo r this AM CLINICAL ASSESSMENT MANAGER procedure are i n the results section. PHOSPHORUS LEVEL Routine 05/10/2020 4:43 Results for this AM CLINICAL ASSESSMENT MANAGER procedure are i n the results section. MAGNESIUM LEVEL Routine 05/10/2020 4:43 Results for this AM CLINICAL ASSESSMENT MANAGER procedure are i n the results section. C-REACTIVE PROTEIN Routine 05/10/2020 4:43 Resul ts for this AM CLINICAL ASSESSMENT MANAGER procedure are i n the results section. LACTIC ACID LEVEL Routine 05/10/2020 4:43 Result s for this AM CLINICAL ASSESSMENT MANAGER procedure are i n the results section. COMPREHENSIVE METABOLIC Routine 05/10/2020 4:43 Results for this PANEL AM CLINICAL ASSESSMENT MANAGER procedure are i n the results section. VANCOMYCIN LEVEL, Routine 05/10/2020 4:43 Result s for this RANDOM AM CLINICAL ASSESSMENT MANAGER procedure are i n the results section. HEMOGLOBIN A1C Routine 05/10/2020 4:20 Results f or this AM CLINICAL ASSESSMENT MANAGER procedure are i n the results section. SEDIMENTATION RATE Routine 05/10/2020 4:20 Resul ts for this AM CLINICAL ASSESSMENT MANAGER procedure are i n the results section. HC COMPLETE BLD COUNT Routine 05/10/2020 4:20 Re sults for this W/AUTO DIFF AM CLINICAL ASSESSMENT MANAGER procedure are i n the results section. POC GLUCOSE Routine 05/09/2020 11:14 Results for this PM CLINICAL ASSESSMENT MANAGER procedure are i n the results section. POC GLUCOSE Routine 05/09/2020 9:01 Results for this PM CLINICAL ASSESSMENT MANAGER procedure are i n the results section. CT ABDOMEN PELVIS WO Routine 05/09/2020 5:30 Res ults for this CONTRAST PM CLINICAL ASSESSMENT MANAGER procedure are i n the results section. ESTIMATED GFR Routine 05/09/2020 4:00 Results fo r this AM CLINICAL ASSESSMENT MANAGER procedure are i n the results section. COMPREHENSIVE METABOLIC Routine 05/09/2020 4:00 Results for this PANEL AM CLINICAL ASSESSMENT MANAGER procedure are i n the results section. B NATRIURETIC PEPTIDE Routine 05/09/2020 3:32 Re sults for this AM CLINICAL ASSESSMENT MANAGER procedure are i n the results section. HC COMPLETE BLD COUNT Routine 05/09/2020 3:32 Re sults for this W/AUTO DIFF AM CLINICAL ASSESSMENT MANAGER procedure are i n the results section. POC GLUCOSE Routine 05/08/2020 9:39 Results for this PM CLINICAL ASSESSMENT MANAGER procedure are i n the results section. XR FOOT 3+ VW LEFT STAT 05/08/2020 8:05 Resul ts for this PM CLINICAL ASSESSMENT MANAGER procedure are i n the results section. TROPONIN Timed 05/08/2020 6:58 Results for this PM CLINICAL ASSESSMENT MANAGER procedure are i n the results section. B NATRIURETIC PEPTIDE Timed 05/08/2020 6:58 Re sults for this PM CLINICAL ASSESSMENT MANAGER procedure are i n the results section. LACTIC ACID LEVEL, Timed 05/08/2020 6:58 Resul ts for this SEPSIS - NOW AND REPEAT PM CLINICAL ASSESSMENT MANAGER proc edure are in 2X EVERY 3 HOURS the results section. COVID-19 QUALITATIVE STAT 05/08/2020 4:50 Res ults for this PCR PM CLINICAL ASSESSMENT MANAGER procedure are i n the results section. BLOOD CULTURE, AEROBIC STAT 05/08/2020 4:12 R esults for this & ANAEROBIC PM CLINICAL ASSESSMENT MANAGER procedure are i n the results section. ESTIMATED GFR STAT 05/08/2020 3:55 Results fo r this PM CLINICAL ASSESSMENT MANAGER procedure are i n the results section. LACTIC ACID LEVEL, STAT 05/08/2020 3:55 Resul ts for this SEPSIS - NOW AND REPEAT PM CLINICAL ASSESSMENT MANAGER proc edure are in 2X EVERY 3 HOURS the results section. COMPREHENSIVE METABOLIC STAT 05/08/2020 3:55 Results for this PANEL PM CLINICAL ASSESSMENT MANAGER procedure are i n the results section. HC COMPLETE BLD COUNT STAT 05/08/2020 3:55 Re sults for this W/AUTO DIFF PM CLINICAL ASSESSMENT MANAGER procedure are i n the results section. BLOOD CULTURE, AEROBIC STAT 05/08/2020 3:55 R esults for this & ANAEROBIC PM CLINICAL ASSESSMENT MANAGER procedure are i n the results section. XR CHEST 1 VW PORTABLE STAT 05/08/2020 3:17 R esults for this PM CLINICAL ASSESSMENT MANAGER procedure are i n the results section. ECG ED PRELIMINARY Routine 05/08/2020 3:00 Resul ts for this INTERPRETATION PM CLINICAL ASSESSMENT MANAGER procedure are in the results section. ECG 12-LEAD Routine 05/08/2020 1:30 Results for this PM CLINICAL ASSESSMENT MANAGER procedure are i n the results section. POC GLUCOSE Routine 04/26/2020 9:42 Results for this AM CDT procedure are i n the results section. 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 POC GLUCOSE Routine 04/26/2020 8:25 Results for this AM CDT procedure are i n the results section. ESTIMATED GFR Routine 04/24/2020 1:12 Results fo r this PM CDT procedure are i n the results section. 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 MAGNESIUM LEVEL Routine 04/24/2020 1:12 Combined systolic and Results for this PM CDT diastolic heart procedure ar e in failure, unspecified the res ults HF chronicity (HCC) section. 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 POC GLUCOSE Routine 03/02/2020 5:40 Results for this PM CDT procedure are i n the results section. POC GLUCOSE Routine 03/02/2020 11:22 Results for this AM CDT procedure are i n the results section. POC GLUCOSE Routine 03/02/2020 8:02 Results for this AM CDT procedure are i n the results section. HC COMPLETE BLD COUNT Routine 03/02/2020 4:30 Re sults for this W/AUTO DIFF AM CDT procedure are i n the results section. ESTIMATED GFR Routine 03/02/2020 4:00 Results fo r this AM CDT procedure are i n the results section. COMPREHENSIVE METABOLIC Routine 03/02/2020 4:00 Results for this PANEL AM CDT procedure are i n the results section. POC GLUCOSE Routine 03/01/2020 9:23 Results for this PM CDT procedure are i n the results section. POC GLUCOSE Routine 03/01/2020 5:29 Results for this PM CDT procedure are i n the results section. POC GLUCOSE Routine 03/01/2020 12:07 Results for this PM CDT procedure are i n the results section. POC GLUCOSE Routine 03/01/2020 8:48 Results for this AM CDT procedure are i n the results section. ESTIMATED GFR Routine 03/01/2020 5:00 Results fo r this AM CDT procedure are i n the results section. PHOSPHORUS LEVEL Routine 03/01/2020 5:00 Results for this AM CDT procedure are i n the results section. MAGNESIUM LEVEL Routine 03/01/2020 5:00 Results for this AM CDT procedure are i n the results section. HC COMPLETE BLD COUNT Routine 03/01/2020 5:00 Re sults for this W/AUTO DIFF AM CDT procedure are i n the results section. COMPREHENSIVE METABOLIC Routine 03/01/2020 5:00 Results for this PANEL AM CDT procedure are i n the results section. POC GLUCOSE Routine 02/29/2020 9:16 Results for this PM CDT procedure are i n the results section. POC GLUCOSE Routine 02/29/2020 5:38 Results for this PM CDT procedure are i n the results section. POC GLUCOSE Routine 02/29/2020 4:28 Results for this PM CDT procedure are i n the results section. POC GLUCOSE Routine 02/29/2020 2:27 Results for this PM CDT procedure are i n the results section. POC GLUCOSE Routine 02/29/2020 12:03 Results for this PM CDT procedure are i n the results section. POC GLUCOSE Routine 02/29/2020 11:28 Results for this AM CDT procedure are i n the results section. POC GLUCOSE Routine 02/29/2020 7:50 Results for this AM CDT procedure are i n the results section. T3, FREE Routine 02/29/2020 4:45 Results for this AM CDT procedure are i n the results section. HC COMPLETE BLD COUNT Routine 02/29/2020 4:45 Re sults for this W/AUTO DIFF AM CDT procedure are i n the results section. ESTIMATED GFR Routine 02/29/2020 4:00 Results fo r this AM CDT procedure are i n the results section. T3 Routine 02/29/2020 4:00 Results for this AM CDT procedure are i n the results section. T4, FREE Routine 02/29/2020 4:00 Results for this AM CDT procedure are i n the results section. THYROID STIMULATING Routine 02/29/2020 4:00 Resu lts for this HORMONE AM CDT procedure are i n the results section. PHOSPHORUS LEVEL Routine 02/29/2020 4:00 Results for this AM CDT procedure are i n the results section. MAGNESIUM LEVEL Routine 02/29/2020 4:00 Results for this AM CDT procedure are i n the results section. COMPREHENSIVE METABOLIC Routine 02/29/2020 4:00 Results for this PANEL AM CDT procedure are i n the results section. POC GLUCOSE Routine 02/28/2020 9:00 Results for this PM CDT procedure are i n the results section. XR PICC CHEST PORTABLE Routine 02/28/2020 7:19 Bladder outlet Results for this PM CDT obstruction procedure are i n the results section. HC CATH DUAL LUMEN PICC Routine 02/28/2020 7:14 Results for this # [id number] PM CDT procedure are i n the results section. HC CVL PICC INSERT 5 Routine 02/28/2020 7:14 Res ults for this YRS OR > W/RS&I AND IMG PM CDT proc edure are in GUID the results section. POC GLUCOSE Routine 02/28/2020 6:13 Results for this PM CDT procedure are i n the results section. POC GLUCOSE Routine 02/28/2020 11:17 Results for this AM CDT procedure are i n the results section. POC GLUCOSE Routine 02/28/2020 8:17 Results for this AM CDT procedure are i n the results section. HC COMPLETE BLD COUNT Routine 02/28/2020 4:45 Re sults for this W/AUTO DIFF AM CDT procedure are i n the results section. ESTIMATED GFR Routine 02/28/2020 4:00 Results fo r this AM CDT procedure are i n the results section. MAGNESIUM LEVEL Routine 02/28/2020 4:00 Results for this AM CDT procedure are i n the results section. COMPREHENSIVE METABOLIC Routine 02/28/2020 4:00 Results for this PANEL AM CDT procedure are i n the results section. POC GLUCOSE Routine 02/27/2020 9:13 Results for this PM CDT procedure are i n the results section. POC GLUCOSE Routine 02/27/2020 5:10 Results for this PM CDT procedure are i n the results section. XR CHEST 1 VW PORTABLE Routine 02/27/2020 3:10 R esults for this PM CDT procedure are i n the results section. POTASSIUM LEVEL Routine 02/27/2020 12:50 Results for this PM CDT procedure are i n the results section. POC GLUCOSE Routine 02/27/2020 12:24 Results for this PM CDT procedure are i n the results section. POC GLUCOSE Routine 02/27/2020 7:37 Results for this AM CDT procedure are i n the results section. T3, FREE Routine 02/27/2020 4:50 Results for this AM CDT procedure are i n the results section. HC COMPLETE BLD COUNT Routine 02/27/2020 4:50 Re sults for this W/AUTO DIFF AM CDT procedure are i n the results section. ESTIMATED GFR Routine 02/27/2020 4:00 Results fo r this AM CDT procedure are i n the results section. T4, FREE Routine 02/27/2020 4:00 Results for this AM CDT procedure are i n the results section. THYROID STIMULATING Routine 02/27/2020 4:00 Resu lts for this HORMONE AM CDT procedure are i n the results section. MAGNESIUM LEVEL Routine 02/27/2020 4:00 Results for this AM CDT procedure are i n the results section. BASIC METABOLIC PANEL Routine 02/27/2020 4:00 Re sults for this AM CDT procedure are i n the results section. POC GLUCOSE Routine 02/26/2020 9:08 Results for this PM CDT procedure are i n the results section. POC GLUCOSE Routine 02/26/2020 5:22 Results for this PM CDT procedure are i n the results section. POC GLUCOSE Routine 02/26/2020 11:48 Results for this AM CDT procedure are i n the results section. FL FLUOROSCOPY OF Routine 02/26/2020 9:27 Result s for this DIAPHRAGM 2 VW CHEST AM CDT procedu re are in the results section. POC GLUCOSE Routine 02/26/2020 7:20 Results for this AM CDT procedure are i n the results section. HC COMPLETE BLD COUNT Routine 02/26/2020 5:00 Re sults for this W/AUTO DIFF AM CDT procedure are i n the results section. ESTIMATED GFR Routine 02/26/2020 4:00 Results fo r this AM CDT procedure are i n the results section. FERRITIN LEVEL Routine 02/26/2020 4:00 Results f or this AM CDT procedure are i n the results section. TOTAL IRON BINDING Routine 02/26/2020 4:00 Resul ts for this CAPACITY AM CDT procedure are i n the results section. MAGNESIUM LEVEL Routine 02/26/2020 4:00 Results for this AM CDT procedure are i n the results section. BASIC METABOLIC PANEL Routine 02/26/2020 4:00 Re sults for this AM CDT procedure are i n the results section. POC GLUCOSE Routine 02/25/2020 9:07 Results for this PM CDT procedure are i n the results section. CT CHEST WO CONTRAST Routine 02/25/2020 6:53 Res ults for this PM CDT procedure are i n the results section. POC GLUCOSE Routine 02/25/2020 5:20 Results for this PM CDT procedure are i n the results section. POC GLUCOSE Routine 02/25/2020 11:43 Results for this AM CDT procedure are i n the results section. POC GLUCOSE Routine 02/25/2020 7:29 Results for this AM CDT procedure are i n the results section. HC COMPLETE BLD COUNT Routine 02/25/2020 5:30 Re sults for this W/AUTO DIFF AM CDT procedure are i n the results section. ESTIMATED GFR Routine 02/25/2020 4:00 Results fo r this AM CDT procedure are i n the results section. URIC ACID LEVEL Routine 02/25/2020 4:00 Results for this AM CDT procedure are i n the results section. PHOSPHORUS LEVEL Routine 02/25/2020 4:00 Results for this AM CDT procedure are i n the results section. MAGNESIUM LEVEL Routine 02/25/2020 4:00 Results for this AM CDT procedure are i n the results section. BASIC METABOLIC PANEL Routine 02/25/2020 4:00 Re sults for this AM CDT procedure are i n the results section. URINE CULTURE Routine 02/25/2020 2:23 Results fo r this AM CDT procedure are i n the results section. URINALYSIS SCREEN AND Routine 02/25/2020 1:00 Re sults for this MICROSCOPY, WITH REFLEX AM CDT proc edure are in TO CULTURE the results section. MANUAL DIFFERENTIAL Routine 02/24/2020 9:30 Resu lts for this PM CDT procedure are i n the results section. HEMOGLOBIN A1C Routine 02/24/2020 9:30 Results f or this PM CDT procedure are i n the results section. CBC WITH PLATELET AND Routine 02/24/2020 9:30 Re sults for this DIFFERENTIAL PM CDT procedure are i n the results section. ECG 12-LEAD Routine 02/24/2020 9:29 Results for this PM CDT procedure are i n the results section. POC GLUCOSE Routine 02/24/2020 9:24 Results for this PM CDT procedure are i n the results section. XR CHEST 1 VW PORTABLE Routine 02/24/2020 9:12 R esults for this PM CDT procedure are i n the results section. ESTIMATED GFR Routine 02/24/2020 6:42 Results fo r this PM CDT procedure are i n the results section. MAGNESIUM LEVEL Routine 02/24/2020 6:42 Results for this PM CDT procedure are i n the results section. BASIC METABOLIC PANEL Routine 02/24/2020 6:42 Re sults for this PM CDT procedure are i n the results section. POC GLUCOSE Routine 02/24/2020 3:57 Results for this PM CDT procedure are i n the results section. CV RIGHT HEART CATH Routine 02/24/2020 3:14 Heart failure, Re sults for this PM CDT unspecified HF procedure are in chronicity, the results unspecified heart section. failure type (HCC) POC GLUCOSE Routine 02/24/2020 11:01 Results for this AM CDT procedure are i n the results section. 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 BASIC METABOLIC PANEL Routine 02/02/2020 3:38 Hyperlipidemia, Results for this PM CDT unspecified procedure are i n hyperlipidemia type the resu lts section. IMMUNOFIXATION, SERUM Routine 01/25/2020 4:00 Re sults for this PM CDT procedure are i n the results section. KAPPA LAMBDA FREE LIGHT Routine 01/25/2020 4:00 Results for this CHAIN WITH RATIO PM CDT procedure a re in the results section. SERUM ELECTROPHORESIS Routine 01/25/2020 4:00 Re sults for this PM CDT procedure are i n the results section. NT-PROBNP Routine 01/25/2020 4:00 Results for this PM CDT procedure are i n the results section. TROPONIN Routine 01/25/2020 4:00 Results for this PM CDT procedure are i n the results section. CV PYP SCAN FOR CARDIAC Routine 01/25/2020 12:50 Results for this AMYLOIDOSIS PM CDT procedure are i n the results section. POC GLUCOSE Routine 01/25/2020 11:35 Results for this AM CDT procedure are i n the results section. POC GLUCOSE Routine 01/25/2020 8:03 Results for this AM CDT procedure are i n the results section. POTASSIUM LEVEL Routine 01/25/2020 5:05 Results for this AM CDT procedure are i n the results section. ESTIMATED GFR Routine 01/25/2020 3:47 Results fo r this AM CDT procedure are i n the results section. BASIC METABOLIC PANEL Routine 01/25/2020 3:47 Re sults for this AM CDT procedure are i n the results section. HC COMPLETE BLD COUNT Routine 01/25/2020 2:23 Re sults for this W/AUTO DIFF AM CDT procedure are i n the results section. POC GLUCOSE Routine 01/24/2020 9:12 Results for this PM CDT procedure are i n the results section. POC GLUCOSE Routine 01/24/2020 5:44 Results for this PM CDT procedure are i n the results section. TTE COMPLETE, W Today 01/24/2020 1:50 Results for this CONTRAST, W DOPPLER PM CDT procedur e are in ([id number]) the results section. POC GLUCOSE Routine 01/24/2020 12:10 Results for this PM CDT procedure are i n the results section. ESTIMATED GFR Routine 01/24/2020 2:55 Results fo r this AM CDT procedure are i n the results section. HC COMPLETE BLD COUNT Routine 01/24/2020 2:55 Re sults for this W/AUTO DIFF AM CDT procedure are i n the results section. BASIC METABOLIC PANEL Routine 01/24/2020 2:55 Re sults for this AM CDT procedure are i n the results section. POC GLUCOSE Routine 01/23/2020 11:23 Results for this PM CDT procedure are i n the results section. POC GLUCOSE Routine 01/23/2020 9:05 Results for this PM CDT procedure are i n the results section. POC GLUCOSE Routine 01/23/2020 5:45 Results for this PM CDT procedure are i n the results section. POC GLUCOSE Routine 01/23/2020 11:56 Results for this AM CDT procedure are i n the results section. POC GLUCOSE Routine 01/23/2020 7:56 Results for this AM CDT procedure are i n the results section. ESTIMATED GFR Routine 01/23/2020 4:00 Results fo r this AM CDT procedure are i n the results section. MAGNESIUM LEVEL Routine 01/23/2020 4:00 Results for this AM CDT procedure are i n the results section. BASIC METABOLIC PANEL Routine 01/23/2020 4:00 Re sults for this AM CDT procedure are i n the results section. POC GLUCOSE Routine 01/23/2020 1:05 Results for this AM CDT procedure are i n the results section. POC GLUCOSE Routine 01/22/2020 9:15 Results for this PM CDT procedure are i n the results section. POC GLUCOSE Routine 01/22/2020 4:23 Results for this PM CDT procedure are i n the results section. POC GLUCOSE Routine 01/22/2020 11:31 Results for this AM CDT procedure are i n the results section. POC GLUCOSE Routine 01/22/2020 8:11 Results for this AM CDT procedure are i n the results section. ESTIMATED GFR Routine 01/22/2020 1:41 Results fo r this AM CDT procedure are i n the results section. MAGNESIUM LEVEL Routine 01/22/2020 1:41 Results for this AM CDT procedure are i n the results section. B NATRIURETIC PEPTIDE Routine 01/22/2020 1:41 Re sults for this AM CDT procedure are i n the results section. HC COMPLETE BLD COUNT Routine 01/22/2020 1:41 Re sults for this W/AUTO DIFF AM CDT procedure are i n the results section. BASIC METABOLIC PANEL Routine 01/22/2020 1:41 Re sults for this AM CDT procedure are i n the results section. URINE CULTURE Routine 01/21/2020 11:56 Results fo r this PM CDT procedure are i n the results section. POC GLUCOSE Routine 01/21/2020 10:07 Results for this PM CDT procedure are i n the results section. URINALYSIS SCREEN AND Routine 01/21/2020 9:20 Re sults for this MICROSCOPY, WITH REFLEX PM CDT proc edure are in TO CULTURE the results section. POC GLUCOSE Routine 01/21/2020 5:49 Results for this PM CDT procedure are i n the results section. US RENAL Routine 01/21/2020 3:50 Results for this PM CDT procedure are i n the results section. NM LUNG PERFUSION Routine 01/21/2020 3:03 Result s for this IMAGING PM CDT procedure are i n the results section. B NATRIURETIC PEPTIDE Routine 01/21/2020 12:30 Re sults for this PM CDT procedure are i n the results section. PARTIAL THROMBOPLASTIN Routine 01/21/2020 12:29 R esults for this TIME (PTT) PM CDT procedure are i n the results section. POC GLUCOSE Routine 01/21/2020 12:28 Results for this PM CDT procedure are i n the results section. MAGNESIUM LEVEL Routine 01/21/2020 10:08 Results for this AM CDT procedure are i n the results section. TROPONIN Routine 01/21/2020 8:45 Results for this AM CDT procedure are i n the results section. POC GLUCOSE Routine 01/21/2020 8:36 Results for this AM CDT procedure are i n the results section. POC GLUCOSE Routine 01/21/2020 6:14 Results for this AM CDT procedure are i n the results section. HC COMPLETE BLD COUNT Routine 01/21/2020 4:50 Re sults for this W/AUTO DIFF AM CDT procedure are i n the results section. PARTIAL THROMBOPLASTIN Routine 01/21/2020 4:50 R esults for this TIME (PTT) AM CDT procedure are i n the results section. POC GLUCOSE Routine 01/21/2020 4:43 Results for this AM CDT procedure are i n the results section. ESTIMATED GFR Routine 01/21/2020 4:30 Results fo r this AM CDT procedure are i n the results section. BASIC METABOLIC PANEL Routine 01/21/2020 4:30 Re sults for this AM CDT procedure are i n the results section. US DUPLEX VENOUS LOWER STAT 01/21/2020 2:33 R esults for this EXTREMITY BILATERAL AM CDT procedur e are in the results section. POC GLUCOSE Routine 01/21/2020 2:16 Results for this AM CDT procedure are i n the results section. ESTIMATED GFR STAT 01/21/2020 1:19 Results fo r this AM CDT procedure are i n the results section. BASIC METABOLIC PANEL STAT 01/21/2020 1:19 Re sults for this AM CDT procedure are i n the results section. ESTIMATED GFR Routine 01/21/2020 12:54 Results fo r this AM CDT procedure are i n the results section. TROPONIN Routine 01/21/2020 12:54 Results for this AM CDT procedure are i n the results section. BASIC METABOLIC PANEL Routine 01/21/2020 12:54 Re sults for this AM CDT procedure are i n the results section. PHOSPHORUS LEVEL Routine 01/21/2020 12:54 Results for this AM CDT procedure are i n the results section. MAGNESIUM LEVEL Routine 01/21/2020 12:54 Results for this AM CDT procedure are i n the results section. D-DIMER Routine 01/21/2020 12:40 Results for this AM CDT procedure are i n the results section. HC COMPLETE BLD COUNT Routine 01/21/2020 12:40 Re sults for this W/AUTO DIFF AM CDT procedure are i n the results section. BETA HYDROXYBUTYRATE STAT 01/20/2020 11:59 Res ults for this PM CDT procedure are i n the results section. B NATRIURETIC PEPTIDE STAT 01/20/2020 10:20 Re sults for this PM CDT procedure are i n the results section. XR CHEST 1 VW PORTABLE STAT 01/20/2020 9:28 R esults for this PM CDT procedure are i n the results section. D-DIMER STAT 01/20/2020 9:00 Results for this PM CDT procedure are i n the results section. ARTERIAL BLOOD GAS STAT 01/20/2020 9:00 Resul ts for this PM CDT procedure are i n the results section. CT CHEST WO CONTRAST STAT 01/20/2020 8:31 Res ults for this PM CDT procedure are i n the results section. COVID-19 QUALITATIVE STAT 01/20/2020 7:50 Res ults for this PCR PM CDT procedure are i n the results section. ECG ED PRELIMINARY Routine 01/20/2020 7:48 Resul ts for this INTERPRETATION PM CDT procedure are in the results section. MS CRITICAL CARE, E/M Routine 01/20/2020 7:48 Re sults for this 30-74 MINUTES PM CDT procedure are in the results section. ESTIMATED GFR Routine 01/20/2020 7:45 Results fo r this PM CDT procedure are i n the results section. B NATRIURETIC PEPTIDE Routine 01/20/2020 7:45 Re sults for this PM CDT procedure are i n the results section. TROPONIN Routine 01/20/2020 7:45 Results for this PM CDT procedure are i n the results section. COMPREHENSIVE METABOLIC Routine 01/20/2020 7:45 Results for this PANEL PM CDT procedure are i n the results section. PARTIAL THROMBOPLASTIN Routine 01/20/2020 7:45 R esults for this TIME (PTT) PM CDT procedure are i n the results section. PROTHROMBIN TIME WITH Routine 01/20/2020 7:45 Re sults for this INR PM CDT procedure are i n the results section. HC COMPLETE BLD COUNT Routine 01/20/2020 7:45 Re sults for this W/AUTO DIFF PM CDT procedure are i n the results section. ECG 12-LEAD STAT 01/20/2020 6:58 Results for this PM CDT procedure are i n the results section. ESTIMATED GFR Routine 12/31/2019 2:50 Results fo r this PM CDT procedure are i n the results section. COMPREHENSIVE METABOLIC Routine 12/31/2019 2:50 Systolic gabriel estive Results for this PANEL PM CDT heart failure, procedure are in unspecified HF the results chronicity (HCC) section. HC COMPLETE BLD COUNT Routine 12/31/2019 2:50 Systolic conges tive Results for this W/AUTO DIFF PM CDT heart failure, procedure are in unspecified HF the results chronicity (HCC) section. B NATRIURETIC PEPTIDE Routine 12/31/2019 2:50 Systolic conges tive Results for this PM CDT heart failure, procedure are in unspecified HF the results chronicity ([facility]) section. MAGNESIUM LEVEL Routine 12/31/2019 2:50 Systolic congestive R esults for this PM CDT heart failure, procedure are in unspecified HF the results chronicity ([facility]) section. 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 class 3 (HCC) POC GLUCOSE Routine 12/18/2019 11:27 Results for this AM CDT procedure are i n the results section. POC GLUCOSE Routine 12/18/2019 7:45 Results for this AM CDT procedure are i n the results section. POC GLUCOSE Routine 12/18/2019 7:20 Results for this AM CDT procedure are i n the results section. POC GLUCOSE Routine 12/17/2019 9:46 Results for this PM CDT procedure are i n the results section. POC GLUCOSE Routine 12/17/2019 6:15 Results for this PM CDT procedure are i n the results section. POC GLUCOSE Routine 12/17/2019 3:46 Results for this PM CDT procedure are i n the results section. URINE CULTURE Routine 12/17/2019 2:29 Results fo r this PM CDT procedure are i n the results section. MS AN ELECTIVE Routine 12/17/2019 2:25 Results f or this SUPRAGLOTTIC AIRWAY PM CDT procedur e are in the results section. CYSTOSCOPY, WITH 12/17/2019 2:06 Benign prostatic PHOTOSELECTIVE PM CDT hyperplasia with VAPORIZATION OF lower urinary tract PROSTATE, USING LASER symptoms Special Needs 23 OBS POC GLUCOSE Routine 12/17/2019 1:51 Results for this PM CDT procedure are i n the results section. POC GLUCOSE Routine 12/17/2019 12:37 Results for this PM CDT procedure are i n the results section. URINALYSIS SCREEN AND Routine 12/17/2019 12:10 Re sults for this MICROSCOPY, WITH PM CDT procedure a re in REFLEX TO CULTURE the result s section. CV RIGHT HEART CATH Routine 11/18/2019 10:49 Resu lts for this AM CDT procedure are i n the results section. POC GLUCOSE Routine 11/18/2019 9:25 Results for this AM CDT procedure are i n the results section. CBC WITH PLATELET AND Routine 11/16/2019 11:08 Coronary artery Results for this DIFFERENTIAL AM CDT disease involving procedure are in [place] coronary artery the r esults of [place] heart section. without angina pectoris Congestive heart failure, unspecified HF chronicity, unspecified heart failure type (HCC) BASIC METABOLIC PANEL Routine 11/16/2019 11:08 Coronary artery Results for this AM CDT disease involving procedure are in [place] coronary artery the r esults of [place] heart section. without angina pectoris Congestive heart failure, unspecified HF chronicity, unspecified heart failure type (HCC) POC GLUCOSE Routine 09/09/2019 11:32 Results for this AM CLINICAL ASSESSMENT MANAGER procedure are i n the results section. POC GLUCOSE Routine 09/09/2019 8:09 Results for this AM CLINICAL ASSESSMENT MANAGER procedure are i n the results section. B NATRIURETIC PEPTIDE Routine 09/09/2019 5:00 Re sults for this AM CLINICAL ASSESSMENT MANAGER procedure are i n the results section. HC COMPLETE BLD COUNT Routine 09/09/2019 5:00 Re sults for this W/AUTO DIFF AM CLINICAL ASSESSMENT MANAGER procedure are i n the results section. ESTIMATED GFR Routine 09/09/2019 4:00 Results fo r this AM CLINICAL ASSESSMENT MANAGER procedure are i n the results section. COMPREHENSIVE Routine 09/09/2019 4:00 Results fo r this METABOLIC PANEL AM CLINICAL ASSESSMENT MANAGER procedure ar e in the results section. MAGNESIUM LEVEL Routine 09/09/2019 4:00 Results for this AM CLINICAL ASSESSMENT MANAGER procedure are i n the results section. POC GLUCOSE Routine 09/08/2019 9:19 Results for this PM CLINICAL ASSESSMENT MANAGER procedure are i n the results section. POC GLUCOSE Routine 09/08/2019 5:27 Results for this PM CLINICAL ASSESSMENT MANAGER procedure are i n the results section. POC GLUCOSE Routine 09/08/2019 12:01 Results for this PM CLINICAL ASSESSMENT MANAGER procedure are i n the results section. POC GLUCOSE Routine 09/08/2019 8:17 Results for this AM CLINICAL ASSESSMENT MANAGER procedure are i n the results section. B NATRIURETIC PEPTIDE Routine 09/08/2019 5:00 Re sults for this AM CLINICAL ASSESSMENT MANAGER procedure are i n the results section. HC COMPLETE BLD COUNT Routine 09/08/2019 5:00 Re sults for this W/AUTO DIFF AM CLINICAL ASSESSMENT MANAGER procedure are i n the results section. ESTIMATED GFR Routine 09/08/2019 4:00 Results fo r this AM CLINICAL ASSESSMENT MANAGER procedure are i n the results section. URIC ACID LEVEL Routine 09/08/2019 4:00 Results for this AM CLINICAL ASSESSMENT MANAGER procedure are i n the results section. COMPREHENSIVE Routine 09/08/2019 4:00 Results fo r this METABOLIC PANEL AM CLINICAL ASSESSMENT MANAGER procedure ar e in the results section. MAGNESIUM LEVEL Routine 09/08/2019 4:00 Results for this AM CLINICAL ASSESSMENT MANAGER procedure are i n the results section. POC GLUCOSE Routine 09/07/2019 11:20 Results for this PM CLINICAL ASSESSMENT MANAGER procedure are i n the results section. POC GLUCOSE Routine 09/07/2019 9:29 Results for this PM CLINICAL ASSESSMENT MANAGER procedure are i n the results section. POC GLUCOSE Routine 09/07/2019 6:01 Results for this PM CLINICAL ASSESSMENT MANAGER procedure are i n the results section. POC GLUCOSE Routine 09/07/2019 11:57 Results for this AM CLINICAL ASSESSMENT MANAGER procedure are i n the results section. POC GLUCOSE Routine 09/07/2019 8:08 Results for this AM CLINICAL ASSESSMENT MANAGER procedure are i n the results section. LACTIC ACID LEVEL Routine 09/07/2019 6:03 Result s for this AM CLINICAL ASSESSMENT MANAGER procedure are i n the results section. B NATRIURETIC PEPTIDE Routine 09/07/2019 4:20 Re sults for this AM CLINICAL ASSESSMENT MANAGER procedure are i n the results section. HC COMPLETE BLD COUNT Routine 09/07/2019 4:20 Re sults for this W/AUTO DIFF AM CLINICAL ASSESSMENT MANAGER procedure are i n the results section. BILIRUBIN DIRECT Routine 09/07/2019 4:00 Results for this AM CLINICAL ASSESSMENT MANAGER procedure are i n the results section. ESTIMATED GFR Routine 09/07/2019 4:00 Results fo r this AM CLINICAL ASSESSMENT MANAGER procedure are i n the results section. T3 Routine 09/07/2019 4:00 Results for this AM CLINICAL ASSESSMENT MANAGER procedure are i n the results section. T4, FREE Routine 09/07/2019 4:00 Results for this AM CLINICAL ASSESSMENT MANAGER procedure are i n the results section. THYROID STIMULATING Routine 09/07/2019 4:00 Resu lts for this HORMONE AM CLINICAL ASSESSMENT MANAGER procedure are i n the results section. COMPREHENSIVE Routine 09/07/2019 4:00 Results fo r this METABOLIC PANEL AM CLINICAL ASSESSMENT MANAGER procedure ar e in the results section. MAGNESIUM LEVEL Routine 09/07/2019 4:00 Results for this AM CLINICAL ASSESSMENT MANAGER procedure are i n the results section. POC GLUCOSE Routine 09/06/2019 9:27 Results for this PM CLINICAL ASSESSMENT MANAGER procedure are i n the results section. POC GLUCOSE Routine 09/06/2019 5:21 Results for this PM CLINICAL ASSESSMENT MANAGER procedure are i n the results section. POC GLUCOSE Routine 09/06/2019 12:26 Results for this PM CLINICAL ASSESSMENT MANAGER procedure are i n the results section. POC GLUCOSE Routine 09/06/2019 8:10 Results for this AM CLINICAL ASSESSMENT MANAGER procedure are i n the results section. ESTIMATED GFR Routine 09/06/2019 4:55 Results fo r this AM CLINICAL ASSESSMENT MANAGER procedure are i n the results section. B NATRIURETIC PEPTIDE Routine 09/06/2019 4:55 Re sults for this AM CLINICAL ASSESSMENT MANAGER procedure are i n the results section. MAGNESIUM LEVEL Routine 09/06/2019 4:55 Results for this AM CLINICAL ASSESSMENT MANAGER procedure are i n the results section. BASIC METABOLIC PANEL Routine 09/06/2019 4:55 Re sults for this AM CLINICAL ASSESSMENT MANAGER procedure are i n the results section. POC GLUCOSE Routine 09/05/2019 9:07 Results for this PM CLINICAL ASSESSMENT MANAGER procedure are i n the results section. POC GLUCOSE Routine 09/05/2019 5:38 Results for this PM CLINICAL ASSESSMENT MANAGER procedure are i n the results section. POC GLUCOSE Routine 09/05/2019 12:20 Results for this PM CLINICAL ASSESSMENT MANAGER procedure are i n the results section. XR CHEST 1 VW Routine 09/05/2019 9:54 Results fo r this PORTABLE AM CLINICAL ASSESSMENT MANAGER procedure are i n the results section. POC GLUCOSE Routine 09/05/2019 7:28 Results for this AM CLINICAL ASSESSMENT MANAGER procedure are i n the results section. ESTIMATED GFR Routine 09/05/2019 4:40 Results fo r this AM CLINICAL ASSESSMENT MANAGER procedure are i n the results section. B NATRIURETIC PEPTIDE Routine 09/05/2019 4:40 Re sults for this AM CLINICAL ASSESSMENT MANAGER procedure are i n the results section. MAGNESIUM LEVEL Routine 09/05/2019 4:40 Results for this AM CLINICAL ASSESSMENT MANAGER procedure are i n the results section. BASIC METABOLIC PANEL Routine 09/05/2019 4:40 Re sults for this AM CLINICAL ASSESSMENT MANAGER procedure are i n the results section. POC GLUCOSE Routine 09/04/2019 9:16 Results for this PM CLINICAL ASSESSMENT MANAGER procedure are i n the results section. POC GLUCOSE Routine 09/04/2019 6:08 Results for this PM CLINICAL ASSESSMENT MANAGER procedure are i n the results section. POC GLUCOSE Routine 09/04/2019 12:46 Results for this PM CLINICAL ASSESSMENT MANAGER procedure are i n the results section. POC GLUCOSE Routine 09/04/2019 9:20 Results for this AM CLINICAL ASSESSMENT MANAGER procedure are i n the results section. NM MYOCARDIAL Routine 09/04/2019 7:58 Results fo r this PERFUSION IMAGING W AM CLINICAL ASSESSMENT MANAGER procedur e are in [id number] VIABILITY the results section. ESTIMATED GFR Routine 09/04/2019 4:00 Results fo r this AM CLINICAL ASSESSMENT MANAGER procedure are i n the results section. HEPATIC FUNCTION Routine 09/04/2019 4:00 Results for this PANEL AM CLINICAL ASSESSMENT MANAGER procedure are i n the results section. T4, FREE Routine 09/04/2019 4:00 Results for this AM CLINICAL ASSESSMENT MANAGER procedure are i n the results section. THYROID STIMULATING Routine 09/04/2019 4:00 Resu lts for this HORMONE AM CLINICAL ASSESSMENT MANAGER procedure are i n the results section. B NATRIURETIC PEPTIDE Routine 09/04/2019 4:00 Re sults for this AM CLINICAL ASSESSMENT MANAGER procedure are i n the results section. MAGNESIUM LEVEL Routine 09/04/2019 4:00 Results for this AM CLINICAL ASSESSMENT MANAGER procedure are i n the results section. BASIC METABOLIC PANEL Routine 09/04/2019 4:00 Re sults for this AM CLINICAL ASSESSMENT MANAGER procedure are i n the results section. HC COMPLETE BLD COUNT Routine 09/04/2019 4:00 Re sults for this W/AUTO DIFF AM CLINICAL ASSESSMENT MANAGER procedure are i n the results section. TROPONIN Routine 09/04/2019 4:00 Results for this AM CLINICAL ASSESSMENT MANAGER procedure are i n the results section. POC GLUCOSE Routine 09/03/2019 9:15 Results for this PM CLINICAL ASSESSMENT MANAGER procedure are i n the results section. POC GLUCOSE Routine 09/03/2019 5:40 Results for this PM CLINICAL ASSESSMENT MANAGER procedure are i n the results section. POC GLUCOSE Routine 09/03/2019 11:55 Results for this AM CLINICAL ASSESSMENT MANAGER procedure are i n the results section. POC GLUCOSE Routine 09/03/2019 8:38 Results for this AM CLINICAL ASSESSMENT MANAGER procedure are i n the results section. POC GLUCOSE Routine 09/03/2019 5:12 Results for this AM CLINICAL ASSESSMENT MANAGER procedure are i n the results section. ESTIMATED GFR Routine 09/03/2019 4:00 Results fo r this AM CLINICAL ASSESSMENT MANAGER procedure are i n the results section. COMPREHENSIVE Routine 09/03/2019 4:00 Results fo r this METABOLIC PANEL AM CLINICAL ASSESSMENT MANAGER procedure ar e in the results section. HC COMPLETE BLD COUNT Routine 09/03/2019 4:00 Re sults for this W/AUTO DIFF AM CLINICAL ASSESSMENT MANAGER procedure are i n the results section. POC GLUCOSE Routine 09/02/2019 11:10 Results for this PM CLINICAL ASSESSMENT MANAGER procedure are i n the results section. TTE COMPLETE, WO Routine 09/02/2019 10:26 Results for this CONTRAST, W DOPPLER PM CLINICAL ASSESSMENT MANAGER procedur e are in ([id number]) the results section. POC GLUCOSE Routine 09/02/2019 5:17 Results for this PM CLINICAL ASSESSMENT MANAGER procedure are i n the results section. CV LEFT HEART CATH Routine 09/02/2019 4:56 Hx of CABG Results for this PM CLINICAL ASSESSMENT MANAGER Aortic valve dis order procedure are in Coronary artery the results disease involving section. [place] coronary artery of [place] heart without angina pectoris SOB (shortness of breath) Stented coronary artery CV ANGIOGRAPHY Routine 09/02/2019 4:56 Hx of CABG Results for this INTERNAL MAMMARY PM CLINICAL ASSESSMENT MANAGER Aortic valve di sorder procedure are in GRAFT Coronary artery the results disease involving section. [place] coronary artery of [place] heart without angina pectoris SOB (shortness of breath) Stented coronary artery CV SELECTIVE Routine 09/02/2019 4:56 Hx of CABG Results for this ANGIOGRAPHY BYPASS PM CLINICAL ASSESSMENT MANAGER Aortic valve disorder procedure are in GRAFT Coronary artery the results disease involving section. [place] coronary artery of [place] heart without angina pectoris SOB (shortness of breath) Stented coronary artery CV SELECTIVE CORONARY Routine 09/02/2019 4:56 Hx of CAB G Results for this ANGIOGRAPHY PM CLINICAL ASSESSMENT MANAGER Aortic valve dis order procedure are in Coronary artery the results disease involving section. [place] coronary artery of [place] heart without angina pectoris SOB (shortness of breath) Stented coronary artery CV RIGHT HEART CATH Routine 09/02/2019 4:56 Hx of CABG Results for this PM CLINICAL ASSESSMENT MANAGER Aortic valve dis order procedure are in Coronary artery the results disease involving section. [place] coronary artery of [place] heart without angina pectoris SOB (shortness of breath) Stented coronary artery POC PANEL Routine 09/02/2019 1:51 Results for this PM CLINICAL ASSESSMENT MANAGER procedure are i n the results section. ESTIMATED GFR Routine 09/02/2019 1:51 Results fo r this PM CLINICAL ASSESSMENT MANAGER procedure are i n the results section. POC GLUCOSE Routine 09/02/2019 1:11 Results for this PM CLINICAL ASSESSMENT MANAGER procedure are i n the results section. ECG PRE/POST OP Routine 09/02/2019 1:02 Results for this PM CLINICAL ASSESSMENT MANAGER procedure are i n the results section. XR CHEST 2 VW Routine 07/27/2019 4:29 Hx of CABG Results for this PM CLINICAL ASSESSMENT MANAGER Aortic valve disorder proced ure are in the results section. ECG 12-LEAD Routine 07/27/2019 1:33 Other chest pain Results for this PM CLINICAL ASSESSMENT MANAGER procedure are i n the results section. 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 (HCC) THYROID STIMULATING Routine 06/14/2019 3:11 Other specified R esults for this HORMONE PM CLINICAL ASSESSMENT MANAGER hypothyroidism procedure are in the results section. T4, FREE Routine 06/14/2019 3:11 Other specified Results for this PM CLINICAL ASSESSMENT MANAGER hypothyroidism procedure are in the results section. COMPREHENSIVE Routine 06/14/2019 3:11 Diabetic Results fo r this METABOLIC PANEL PM CLINICAL ASSESSMENT MANAGER polyneuropathy procedure are in associated with type 2 the r esults diabetes mellitus section. (HCC) Essential hypertension CBC WITH PLATELET AND Routine 06/14/2019 3:11 Shortness of br eath Results for this DIFFERENTIAL PM CLINICAL ASSESSMENT MANAGER procedure are i n the results section. B NATRIURETIC PEPTIDE Routine 06/14/2019 3:11 Shortness of breath Results for this PM CLINICAL ASSESSMENT MANAGER Congestive heart procedure a re in failure, unspecified the res ults HF chronicity, section. unspecified heart failure type (HCC) after 05/21/2019 Results POC glucose (05/18/2020 8:14 AM CLINICAL ASSESSMENT MANAGER)Only the most recent of130 resultswithin the time period is included. Pathologist Sig nature POC glucose 175 (H) 65 - 99 mg/dL [facility] Comment: HOSPITAL Binder Chainstitch Name: Dez Vazquez Device ID: [id number] Chartable: [facility] Notified RN Specimen Blood Performing Organization Address City/State/ZIP Code Phon e Number [facility] DEPARTMENT OF PATHOLOGY AND [address] [place] [phone] GENOMIC MEDICINE [address] [address] CBC with platelet and differential (05/18/2020 5:00 AM CLINICAL ASSESSMENT MANAGER)Only the most recent of33 resultswithin the time period is included. WBC 7.39 4.50 - 11.00 [facility] RBC 4.58 4.40 - 6.00 [facility] HGB 12.1 (L) 14.0 - 18.0 [facility] g/dL [facility] HCT 38.1 (L) 41.0 - 51.0 % [facility] MCV 83.2 82.0 - 100.0 [facility] MCH 26.4 (L) 27.0 - 34.0 pg [facility] MCHC 31.8 31.0 - 37.0 [facility] g/dL [facility] RDW - SD 51.8 37.0 - 55.0 fL [facility] MPV 10.0 8.8 - 13.2 fL [facility] Platelet count 210 150 - 400 k/uL [facility] Nucleated RBC 0.00 /100 WBC [facility] Neutrophils 64.1 39.0 - 69.0 % [facility] Lymphocytes 24.6 (L) 25.0 - 45.0 % [facility] Monocytes 8.1 0.0 - 10.0 % [facility] Eosinophils 2.3 0.0 - 5.0 % [facility] Basophils 0.5 0.0 - 1.0 % [facility] Immature granulocytes 0.4Comment: 0.0 - 1.0 % [facility] "Immature HOSPITAL granulocytes" (promyelocytes , myelocytes, metamyelocytes ) Specimen Plasma Performing Organization Address City/[facility] Phon e Number [facility] DEPARTMENT OF PATHOLOGY AND [address] [place] [address] [phone] [address] Estimated GFR (05/18/2020 4:00 AM CLINICAL ASSESSMENT MANAGER)Only the most recent of36 resultswithin the time period is included. Estimated GFR 26 (A) mL/min/1.73 [facility] Comment: m2 HOSPITAL Catergory Units Interpretation G1 >=90 Normal or high G2 60-89 Mildly decreased G3a 45-59 Mildly to moderately decreas ed G3b 30-44 Moderately to severely decre ased G4 15-29 Severely decreased G5 <15 Kidney failure The eGFR was calculated using the Chronic Kidney Disea se Epidemiology Collaboration (CKD-EPI) equation. Interpretation is based on recommendations of the National Kidney Foundation-Kidney Disease Outcomes Jesus lity Initiative (NKF-KDOQI) published in 2014. Specimen Plasma Performing Organization Address City/[facility] Phon e Number [facility] DEPARTMENT OF PATHOLOGY AND [address] [place] [address] [phone] [address] Magnesium level (05/18/2020 4:00 AM CLINICAL ASSESSMENT MANAGER)Only the most recent of25 resultswithin the time period is included. Pathologist Sig nature Magnesium 2.0 1.6 - 2.4 mg/dL [facility] L Specimen Plasma Performing Organization Address [facility] Phon e Number [facility] DEPARTMENT OF PATHOLOGY AND [address] [place] [phone] [place] [phone] Basic metabolic panel (05/18/2020 4:00 AM CLINICAL ASSESSMENT MANAGER)Only the most recent of22 results within the time period is included. Pathologist Sig nature Sodium 133 (L) 135 - 148 mEq/L [facility] Potassium 4.3 3.5 - 5.0 mEq/L [facility] Chloride 93 (L) 98 - 112 mEq/L [facility] CO2 25 24 - 31 mEq/L [facility] Anion gap 15@ANIO 7 - 15 mEq/L [facility] BUN 36 (H) 8 - 23 mg/dL [facility] Creatinine 2.23 (H) 0.70 - 1.20 mg/dL [facility] Glucose 166 (H) 65 - 99 mg/dL [facility] Calcium 8.9 8.8 - 10.2 mg/dL [facility] Specimen Plasma Performing Organization Address [facility] Phon e Number [facility] DEPARTMENT OF PATHOLOGY AND [address] [place] [address] [phone] [address] Sodium level, urine, random (05/17/2020 1:40 PM CLINICAL ASSESSMENT MANAGER) Pathologist Sig nature Sodium, urine, random 69 mEq/L [facility] Specimen Urine Performing Organization Address City/[facility] Phon e Number [facility] DEPARTMENT OF PATHOLOGY AND [address] [place] [address] [phone] [address] Osmolality, urine (05/17/2020 1:40 PM CLINICAL ASSESSMENT MANAGER) Osmolality, urine 220Comment: 50 - 1,400 [facility] double mOsm/kg HOSPITAL checked. Specimen Urine Performing Organization Address City/[facility] Phon e Number [facility] DEPARTMENT OF PATHOLOGY AND [address] [place] [address] [phone] [address] Creatinine level, urine, random (05/17/2020 1:40 PM CLINICAL ASSESSMENT MANAGER) Pathologist Sig nature Creatinine, urine, 30 mg/dL [facility] Specimen Urine Performing Organization Address [facility] Phon e Number [facility] DEPARTMENT OF PATHOLOGY AND [address] [place] [address] [phone] [address] Sodium level (05/17/2020 1:40 PM CLINICAL ASSESSMENT MANAGER) Pathologist Sig [facility] Sodium 141 135 - 148 mEq/L [facility] L Specimen Plasma Performing Organization Address [facility] Phon e Number [facility] DEPARTMENT OF PATHOLOGY AND [address] [place] [phone] Osmolality, serum (05/17/2020 1:30 PM CLINICAL ASSESSMENT MANAGER) Pathologist Sig nature Osmolality 300 (H)Comment: 275 - 295 [facility] Results double mOsm/kg HOSPITAL checked. Specimen Blood Performing Organization Address [facility] Phon e Number [facility] DEPARTMENT OF PATHOLOGY AND [address] [place] [phone] B natriuretic peptide (05/17/2020 9:00 AM CLINICAL ASSESSMENT MANAGER)Only the most recent of17 results within the time period is included. Pathologist Sig nature BNP 247 (H) 0 - 100 pg/mL [facility] Specimen Blood Performing Organization Address City/[facility] Phon e Number [facility] DEPARTMENT OF PATHOLOGY AND [address] [place] [phone] [place] [address] Lactic acid level (05/17/2020 7:41 AM CLINICAL ASSESSMENT MANAGER)Only the most recent of4 results within the time period is included. Pathologist Sig nature Lactic acid 1.5 0.5 - 2.2 mmol/L [facility] Specimen Blood Performing Organization Address City/[facility]/ZIP Code Phon e Number [facility] DEPARTMENT OF PATHOLOGY AND [address] [place] [address] 0 [facility] [address] [place] [address] Comprehensive metabolic panel (05/17/2020 7:39 AM CLINICAL ASSESSMENT MANAGER)Only the most recent of17 resultswithin the time period is included. Pathologist [facility] Sodium 127 (L) 135 - 148 [facility] mEq/L [facility] Potassium 4.1 3.5 - 5.0 [facility] mEq/L [facility] Chloride 90 (L) 98 - 112 [facility] mEq/L [facility] CO2 26 24 - 31 mEq/L [facility] Anion gap 11@ANIO 7 - 15 mEq/L [facility] BUN 33 (H) 8 - 23 mg/dL [facility] Creatinine 2.32 (H) 0.70 - 1.20 [facility] mg/dL [facility] Glucose 176 (H) 65 - 99 mg/dL [facility] Calcium 8.6 (L) 8.8 - 10.2 [facility] mg/dL [facility] Protein 7.0 6.3 - 8.3 [facility] Comment: g/dL HOSPITAL - 4.6-7.0 g/dL 1 week 4.4-7.6 g/dL 7 months-1year 5.1-7.3 g/dL 1-2 years 5.6-7.5 g/dL >3 years 6.0-8.0 g/dL 18-150 6.3-8.3 g/dL Albumin 3.0 (L) 3.5 - 5.0 [facility] g/dL [facility] A/G ratio 0.8 0.7 - 3.8 [facility] Alkaline phosphatase 83 40 - 129 U/L [facility] AST 27 10 - 50 U/L [facility] ALT 32 5 - 50 U/L [facility] Total bilirubin 0.3 0.0 - 1.2 [facility] mg/dL [facility] Specimen Plasma Performing Organization Address City/State/ZIP Code Phon e Number [facility] DEPARTMENT OF PATHOLOGY AND [address] [place], [place] [phone] [address] [address] Partial thromboplastin time, activated (05/17/2020 5:20 AM CLINICAL ASSESSMENT MANAGER)Only the most recent of14 resultswithin the time period is included. Pathologist [facility] PTT 56.0 (H) 23.0 - 36.0 [facility] Comment: [facility] PTT therapeutic range for unfractionated heparin is 61.0-112.0 seconds which corresponds to Anti-Xa 0.3-0.7 U/ml. Specimen Blood Performing Organization Address City/State/ZIP Code Phon e Number [facility] DEPARTMENT OF PATHOLOGY AND [address] [place], [place] [phone] GENOMIC MEDICINE [facility] [address] [place] [address] NM Bone Scan 3 Phase (05/15/2020 4:03 PM CLINICAL ASSESSMENT MANAGER) Specimen Narrative Performed At PROCEDURE: NM BONE SCAN 3 PHASE [facility] INDICATION: Evaluate for osteomyelitis o f the left foot. COMPARISON: X-ray left foot dated 2019. TECHNIQUE: 25 millicuries of ntibvalatn-57c-WZH were a dministered IV, followed by blood flow and blood pool imaging of the b ilateral feet. Three to five hours later, delayed imagi ng was performed. FINDINGS: Blood flow and blood pool images demonstra te mild hyperemia to the distal left foot. Delayed images demonstrate focal abnormal activity in the left second distal phalanx, correlatin g with erosive changes noted on comparison x-ray. 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 IMPRESSION: Findings compatible with osteomyelitis of the left sec ond distal phalanx. [id number] Dictated and approved by residential support worker/fellow: Jose Lei M.D. I, Alejandro Ornelas MD, personally reviewed the images and resident's/fellow's findings and agree with the final report. Procedure Note Interface, Radiology Results Incoming - 05/15/2020 4:28 PM CLINICAL ASSESSMENT MANAGER PROCEDURE: NM BONE SCAN 3 PHASE INDICATION: Evaluate for osteomyelitis o f the left foot. COMPARISON: X-ray left foot dated 2019. TECHNIQUE: 25 millicuries of technetium- 99m-MDP were administered IV, followed by blood flow and blood pool imaging of the bilateral feet. Three to five hours later, delayed imaging was performed. FINDINGS: Blood flow and blood pool jim ges demonstrate mild hyperemia to the distal left foot. Delayed images demonstrate focal abnormal activity in the left second distal phalanx, correlating with erosive changes noted on comparison x-ray. 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 IMPRESSION: Findings compatible with osteomyelitis o f the left second distal phalanx. [id number] Dictated and approved by radiology resid ent/fellow: Shaun Lei M.D. I, Alejandro Ornelas MD, personally review ed the images and resident's/fellow's findings and agree with the final report. Performing Organization Address City/[facility] Code Phon e Number [facility] [address] [place] [phone] Phosphorus level (05/15/2020 6:25 AM CLINICAL ASSESSMENT MANAGER)Only the most recent of7 resultswithin the time period is included. Pathologist Sig nature Phosphorus 4.0 2.4 - 4.5 mg/dL [facility] L Specimen Plasma Performing Organization Address [facility] Phon e Number [facility] DEPARTMENT OF PATHOLOGY AND [address] [place] [address] [phone] [address] CBC hemogram (05/13/2020 4:06 AM CLINICAL ASSESSMENT MANAGER) Pathologist Sig nature WBC 7.04 4.50 - 11.00 k/uL [facility] RBC 4.28 (L) 4.40 - 6.00 m/uL [facility] HGB 11.4 (L) 14.0 - 18.0 g/dL [facility] HCT 35.4 (L) 41.0 - 51.0 % [facility] MCV 82.7 82.0 - 100.0 fL [facility] MCH 26.6 (L) 27.0 - 34.0 pg [facility] MCHC 32.2 31.0 - 37.0 g/dL [facility] RDW - SD 51.0 37.0 - 55.0 fL [facility] MPV 10.6 8.8 - 13.2 fL [facility] Platelet count 194 150 - 400 k/uL [facility] Nucleated RBC 0.00 /100 WBC [facility] Specimen Plasma Performing Organization Address [facility] Phon e Number [facility] DEPARTMENT OF PATHOLOGY AND [address] [place] [address] [phone] [address] Transthoracic Echocardiogram Complete, (w Contrast, Strain and 3D if needed) (05/11/2020 5:13 PM CLINICAL ASSESSMENT MANAGER) Specimen Narrative Performed At [facility] Echo cardiography Report [address] [facility], [address] [address] Pat.Name: MARCELA MERCADO Pat.ID: [id number] .Date: 05/11/2020 Refer.MD: ANETTE HUSSEIN MD Exam Time: 4:41:00 PM Study Type:R outine Echo Height: 71in Weight: 208lb BSA: 2.15 m2 Ag e: 1935,85Y Sex: MALE BP: 123/56 HR: 70 bpm Sonogr phr: [place], RCS, RVS Pat. Stat.:Inpatient Room: [place] [address] Study Status:Final Echo Event ID:[id number] Order ID: [id number] Reason for Study:CHF History / Clinical:Atrial Fibrillation, COPD, Coronary Artery Disease Procedures: 2D Echo, Colorflow Doppler, Portable, Intravenous Lumason Contrast Race: C SUMMARY: Concentric left ventricular remodeling. LV EF is 35-39%; wall motion as n oted. RV systolic function is moderately depre ssed. Transcatheter AV Doppler velocity index is 0.69 (normal >0.50). LV relaxation is impaired. LV filling pr essure is elevated. Estimated PA systolic pressure is 22-27 mmHg, assuming a mean RAP of 5-10 mmHg. FINDINGS: LV: LV size is normal. Concentr ic left ventricular remodeling. LV EF is moderately depressed. Septal m otion is paradoxical. Estimated EF is 35-39%. Regional wall m otion abnormalities present. RV: RV size is normal. RV systo lic function is normal. LA: LA volume is mildly enlarge d. RA: RA volume is difficult to a ssess. AO: Aortic root diameter is nor mal. RAJESH: No pericardial effusion. IAS: Interatrial septum bulges to the right, c onsistent with high LA pressure. AV: Bioprosthetic aortic valve. No evidence of paravalvular aortic regurgitation. Tra nscatheter AV Doppler velocity index is 0.69 (normal >0. 50). MV: Mild to moderate thickening and calcification of mitral leaflets. Mild mitral reg urgitation. PV: No structural PV abnormalit ies noted. TV: No structural TV abnormalit ies noted. Jean: LV relaxation is impaired. L V filling pressure is elevated. Other: Estimated PA systolic pressu re is 22-27 mmHg, assuming a mean RAP of 5-10 mmHg. MEASUREMENTS: 2D Parasternal Long [place] Ao An 2.5 cm LVPWd 1.3 cm Ao Rtd 2.8 cm Index 1.3 cm/m2 LA Ds 5.4 cm IVSd 1.1 cm RWT 0.54 LVIDd 4.8 cm Index 2.2 cm/m2 LV Mass 219 g (122-1 74)* LVIDs 3.8 cm LVM In dex 102 g/m LV%fs 21 % LVOT 2.4 cm LA Sng Plane LA Area 26 cm (8.8-23.4)* LA Vol 86 ml Index 40 ml/m2 LA LngAx 7 cm RA Sng Plane RA Vol 32 ml Index 15 ml/m2 RA LngAx 4.8 cm RA Area 13 cm (8.3-1 9.5) LVOT LVOT Area 4.5 cm DOPPLER AV For Flow/RAI AV pkVel 150 cm/s (100-170) AV AC/ET 0.32 AV mnVel 107 cm/s AV TVI 30 cm AV pkPG 8.9 mmHg AVpkAcRt 4158 cm/s AV Mean G 5.3 mmHg AV DeRt 541 cm/s AV ET 276 msec AV AC 87 msec (83-118) Aortic Valve AV DI 0.69 AV Are a 3.1 cm (3-5) LVOT For Flow LVOT TVI 20 cm LVOTmnP G 2.5 mmHg LVOTpkVel 119 cm/s HR 69 bpm LVOTpkPG 5.6 mmHg LVOT LVOT SV 92 ml LVOT CO 6.4 l/min SVi 43 ml/m LVOT C I 3 l/m/m RA PA Sys Press TI yesica 208 cm/s SysP TV 27 mmHg RA Press 10 mmHg WALL MOTION: RESTING WALL MOTION: 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 Mid Anterior, Mid Anteroseptal, Apical Anterior, Apical Septal, Apical L ateral, Apical bliss are akinetic. Basal Anterior, Basal Infero septal, Basal Inferior, Basal Anterolateral, Mid Inferoseptal, Mid Inf erior, Mid Inferolateral, Apical Inferior bliss are hypokinetic. Normal wall motion in all other bliss. Wall Index = 2.4 Signed 05/12/2020 11:20 AM Gallo Rico M.D. Procedure Note Interface, Radiology Results In - 2019 11:21 AM CLINICAL ASSESSMENT MANAGER Echocardiography Report [id number] [place] [address] Pat.Name: MARCELA MERCADO Pat.I D: [id number] .Date: 05/11/2020 Refer .MD: ANETTE HUSSEIN MD Exam Time: 4:41:00 PM Study Type:Routine Echo Height: 71in Weigh t: 208lb BSA: 2.15 m2 Age: 11 1935,85Y Sex: MALE BP: 123/56 HR: 70 bpm Sonog rphr: MARGARET Pepe RVS Pat. Stat.:Inpatient Room: [facility] 928 Study Status:Final Echo Event ID:[id number] Order ID: [id number] Reason for Study:CHF History / Clinical:Atrial Fibrillation, COPD, Coronary Artery Disease Procedures: 2D Echo, Colorflow Doppler, Portable, Intravenous Lumason Contrast Race: C SUMMARY: Concentric left ventricular remodeling. LV EF is 35-39%; wall motion as n oted. RV systolic function is moderately depre ssed. Transcatheter AV Doppler velocity index is 0.69 (normal >0.50). LV relaxation is impaired. LV filling pr essure is elevated. Estimated PA systolic pressure is 22-27 mmHg, assuming a mean RAP of 5-10 mmHg. FINDINGS: LV: LV size is normal. Concentric left ventricular remodeling. LV EF is moderately depressed. Septal motion is paradoxical. Estimated EF is 35-39%. Region al wall motion abnormalities present. RV: RV size is normal. RV systolic function is normal. LA: LA volume is mildly enlarged. RA: RA volume is difficult to asse ss. AO: Aortic root diameter is normal . RAJESH: No pericardial effusion. IAS: Interatrial septum bulges to t he right, consistent with high LA pressure. AV: Bioprosthetic aortic valve. No evidence of paravalvular aortic regurgitation. Transcat heter AV Doppler velocity index is 0.69 (normal >0.50). MV: Mild to moderate thickening an d calcification of mitral leaflets. Mild mitral regurgit ation. PV: No structural PV abnormalities noted. TV: No structural TV abnormalities noted. Jean: LV relaxation is impaired. LV filling pressure is elevated. Other: Estimated PA systolic pressure is 22-27 mmHg, assuming a mean RAP of 5-10 mmHg. MEASUREMENTS: 2D Parasternal Long [place] Ao An 2.5 cm LVPW d 1.3 cm Ao Rtd 2.8 cm Inde x 1.3 cm/m2 LA Ds 5.4 cm IVSd 1.1 cm RWT 0.54 LVIDd 4.8 cm Inde x 2.2 cm/m2 LV Mass 219 g (122-174)* LVIDs 3.8 cm LVM Index 102 g/m LV%fs 21 % LVOT 2.4 cm LA Sng Plane LA Area 26 cm (8.8-23.4)* LA Vol 86 ml Index 40 ml/m2 LA LngAx 7 cm RA Sng Plane RA Vol 32 ml Inde x 15 ml/m2 RA LngAx 4.8 cm RA Area 13 cm (8.3-19.5) LVOT LVOT Area 4.5 cm DOPPLER AV For Flow/RAI AV pkVel 150 cm/s (100-170) AV AC/ET 0.32 AV mnVel 107 cm/s AV T 30 cm AV pkPG 8.9 mmHg AVpk AcRt 4158 cm/s AV Mean G 5.3 mmHg AV D eRt 541 cm/s AV ET 276 msec AV A C 87 msec (83-118) Aortic Valve AV DI 0.69 AV A morelia 3.1 cm (3-5) LVOT For Flow LVOT TVI 20 cm LVOT mnPG 2.5 mmHg LVOTpkVel 119 cm/s HR 69 bpm LVOTpkPG 5.6 mmHg LVOT LVOT SV 92 ml LVOT CO 6.4 l/min SVi 43 ml/m LVO T CI 3 l/m/m RA PA Sys Press TI yesica 208 cm/s SysP TV 27 mmHg RA Press 10 mmHg WALL MOTION: RESTING WALL MOTION: 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 M id Anterior, Mid Anteroseptal, Apical Anterior, Apical Septal, Apical L ateral, Apical bliss are akinetic. Basal Anterior, Basal Inferos eptal, Basal Inferior, Basal Anterolateral, Mid Inferoseptal, Mid Inf erior, Mid Inferolateral, Apical Inferior bliss are hypokinetic. Normal wall motion in all other bliss. Wall Index = 2.4 Signed 05/12/2020 11:20 AM Gallo Rico M.D. Performing Organization Address [facility]/ZIP Code Phon e Number [facility] [address] [place] [address] Blood culture, aerobic & anaerobic (05/10/2020 3:00 PM CLINICAL ASSESSMENT MANAGER)Only the most recent of4 resultswithin the time period is included. Blood culture No growth after 5 days of incubation. [facility] DENOM[facility] isolate Comment: HOSPITAL Specimen Information Specimen Source: Blood Specimen Site: Forearm, left Specimen Blood - Forearm, left Performing Organization Address [facility] Phon e Number [facility] DEPARTMENT OF PATHOLOGY AND [address] [place], [place] [address] GENOMIC MEDICINE [facility] [address] [place] [address] XR Picc Chest Portable (05/10/2020 12:16 PM CLINICAL ASSESSMENT MANAGER)Only the most recent of2 results within the time period is included. Specimen Narrative Performed At EXAMINATION: XR PICC CHEST PORTABLE [facility] CLINICAL HISTORY: R50.9 Fever unspec ified, multiple iv meds COMPARISON: May 08 IMPRESSION: 1.PICC line tip is in the SVC. AICD and sternal wires remain. 2.There is no confluent infiltrate, effusion, pulmonar y congestion, or acute osseous pathology. [id number] Procedure Note Interface, Radiology Results Incoming - 05/10/2020 2:15 PM CLINICAL ASSESSMENT MANAGER EXAMINATION: XR PICC CHEST PORTABLE CLINICAL HISTORY: R50.9 Fever unspecif ied, multiple iv meds COMPARISON: May 08 IMPRESSION: 1.PICC line tip is in the SVC. AICD and sternal wires remain. 2.There is no confluent infiltrate, effu polo, pulmonary congestion, or acute osseous pathology. [id number] Performing Organization Address [facility] Phon e Number [facility] [address] [place] [address] PICC insertion (05/10/2020 12:11 PM CLINICAL ASSESSMENT MANAGER) Narrative Performed At Orlin Jimenez RN 05/10/2020 12:14 PM PICC insertion Date/Time: 05/10/2020 12:11 PM Performed by: Javan Betts MD Authorized by: Anette Hussein MD Consent: Consent obtained: Written Consent given by: Patient Risks discussed: Arterial puncture, incorrect rodrigo cement, nerve damage, infection, bleeding, superficial thrombu s and deep vein thrombus Alternatives discussed: Alternative treatment and delayed treatment [place] protocol: Procedure explained and questions ans wered to patient or proxy's satisfaction: yes Relevant documents present and verifi ed: yes Test results available and properly l abeled: yes Imaging studies available: yes Required blood products, implants, de vices, and special equipment available: yes Site/side marked: yes Immediately prior to procedure, a brittaney e out was called: yes Patient identity confirmed: Verball y with patient, arm band and hospital-assigned identification number Pre-procedure details: Hand hygiene: Hand hygiene performed prior to insertion Sterile barrier technique: All elemen ts of maximal sterile technique followed Skin preparation: ChloraPrep Skin preparation agent: Vega mcwilliams prior to procedure Anesthesia (see MAR for exact dosages): Anesthesia method: Local infiltrati on Local anesthetic: Lidocaine 1% w/o epi Route administered: Subcutaneous PICC Line Placement Details: Patient position: Flat Vessel Size (mm): 3.5. 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 IV ther apy Location: Right brachial Device Type: Non-valved Catheter Lumens: Double lumen Catheter size: 5 Fr Catheter to vein ratio: 41% PICC Characteristics: Catheter Brand: DL PROVENA PICC Internal Catheter Length (cm): 43 Total Catheter Length (cm): 43 Catheter Lot Number: [id number] Catheter Expiration Date: 1 Procedure details: Landmarks identified: yes Ultrasound guidance: yes Sterile ultrasound techniques: Sterile gel and ster ile probe covers were used Number of attempts: 1 Number of PICC kits used during proce dure: 1 Extra guide wire required?: Yes Purpose of procedure: PICC Placemen t Successful PICC Placement: yes Patency/Placement: Flushes without difficulty, flushed with 10 mL normal saline, positive blood return, ul trasound placement verified and x-ray placement verified Dressing/Securement: Antimicrobial dressing dry and intact, antimicrobial dressing applied and shun ter securement device Blood Loss Amount: Less than 20 mL Post-procedure details: Post-procedure: Dressing applied Tip placement confirmed by: X-Ray Patient tolerance of procedure: Evon erated well, no immediate complications Us ankle brachial index (05/10/2020 11:30 AM CLINICAL ASSESSMENT MANAGER) Specimen Narrative Performed At [facility] Ankle/B rachial Index Report [address] [facility], [address] [address] Pat.Name: MARCELA MERCADO Pat.ID: [id number] .Date: 05/10/2020 Refer.MD: CHRIS RIOJAS MD Exam Time: 10:45:00 PM Study Type:An kle/Brachial Index Age: 10 1935,85Y Sex: MALE Sonogrphr: HENRI Valencia Pat. Stat.:[facility] Room: [facility] Tape Vol: FE, CPT - 4: 38837 Echo Mayelin nt ID:[id number] Order ID: [id number] Reason for Study:RAYMUNDO; Bilateral leg pain . CAD (CABG), Aortic stenosis, HTN, hyperlipiedemia, diabetic, CVA and CHF. Procedures: Ankle/brachial pressures, Di git pressures, PPG waveform tracing Race: C SUMMARY: DOPPLER SIGNALS / ANALOG WAVEFORMS: DOPPLER SIGNALS ANALOG WAVEFORMS ARTERY RIGHT LEFT RIGHT LEFT Posterior Tibial Abnormal Abnormal Abnor mal Abnormal Dorsalis Pedis Abnormal Abnormal Abnorma l Abnormal SEGMENTAL PRESSURE (mmHg): RIGHT LEFT Brachial PICC 152 Ankle DP 96 119 Ankle PT 101 152 Great Toe Unable to obtain 96 ANKLE/BRACHIAL INDEX: RIGHT LEFT Dorsalis Pedis .63 .78 Posterior Tibial .66 1.00 TOE/BRACHIAL INDEX: RIGHT LEFT Unable to obtain .63 PRELIMINARY FINDINGS: 1. Ankle/brachial indices fall into th e moderate category on the right and Moderate category on the left dorsalis pedis. 2. Although ankle brachial index sig nal falls in normal category Analog waveforms is abnormal. 3. Toe/brachial indices fall into the normal category on the left. The right TBI could not be obtained due to no waveform in great toe. PHYSICIAN INTERPRETATION: 1. Ankle/brachial indices fall into th e moderate category on the right and Moderate category on the left dorsalis pedis. 2. Although ankle brachial index sig nal falls in normal category Analog waveforms is abnormal. 3. Toe/brachial indices fall into the normal category on the left. The right TBI could not be obtained due to no waveform in great toe. FINDINGS: Signed 05/10/2020 04:12 PM Chucky Swartz MD, RPVI Procedure Note Interface, Radiology Results In - 2019 4:12 PM CLINICAL ASSESSMENT MANAGER [facility] Ankle/Brachial Ind ex Report [address] [place] [address] Pat.Name: MARCELA MERCADO Pat.I D: [id number] .Date: 05/10/2020 Refer .MD: CHRIS RIOJAS MD Exam Time: 10:45:00 PM Study Type:Ankle/Brachial Index Age: 11 1935,85Y Sex: MALE Sonogrphr: HENRI Valencia Pat. Stat.:Inpatient Room: [address] Vol: , [facility] - 4: [address] Echo Event ID:[id number] Order ID: [id number] Reason for Study:RAYMUNDO; Bilateral leg pain . CAD (CABG), Aortic stenosis, HTN, hyperlipiedemia, diabetic, CVA and CHF. Procedures: Ankle/brachial pressures, Di git pressures, PPG waveform tracing Race: C SUMMARY: DOPPLER SIGNALS / ANALOG WAVEFORMS: DOPPLER SIGNALS ANALOG WAVEFORMS ARTERY RIGHT LEFT RIGHT LEFT Posterior Tibial Abnormal Abnormal Abnor mal Abnormal Dorsalis Pedis Abnormal Abnormal Abnorma l Abnormal SEGMENTAL PRESSURE (mmHg): RIGHT LEFT Brachial PICC 152 Ankle DP 96 119 Ankle PT 101 152 Great Toe Unable to obtain 96 ANKLE/BRACHIAL INDEX: RIGHT LEFT Dorsalis Pedis .63 .78 Posterior Tibial .66 1.00 TOE/BRACHIAL INDEX: RIGHT LEFT Unable to obtain .63 PRELIMINARY FINDINGS: 1. Ankle/brachial indices fall into the moderate category on the right and Moderate category on the left dorsalis pedis. 2. Although ankle brachial index signa l falls in normal category Analog waveforms is abnormal. 3. Toe/brachial indices fall into the n ormal category on the left. The right TBI could not be obtained due to no waveform in great toe. PHYSICIAN INTERPRETATION: 1. Ankle/brachial indices fall into the moderate category on the right and Moderate category on the left dorsalis pedis. 2. Although ankle brachial index signa l falls in normal category Analog waveforms is abnormal. 3. Toe/brachial indices fall into the n ormal category on the left. The right TBI could not be obtained due to no waveform in great toe. FINDINGS: Signed 05/10/2020 04:12 PM Chucky Swartz MD, RPVI Performing Organization Address [facility] Code Phon e Number [facility] [phone] duplex arterial lower extremity (05/10/2020 11:00 AM CLINICAL ASSESSMENT MANAGER) Specimen Narrative Performed At [facility] Vascular U ltrasound Laboratory Lower Extremity Arterial Duplex Report [address] [place] [address] Pat.Name: MARCELA MERCADO Pat.ID: [id number] .Date: 05/10/2020 Refer.MD: CHRIS RIOJAS DPM Exam Time: 10:06:00 AM Study Type:LE Arterial Age: 10 1935,85Y Sex: MALE Sonogrphr: HENRI Valencia Pat. Stat.:[facility] ent Room: [facility] Tape Vol: , CPT - 4: 88769 Echo Mayelin nt ID:[id number] Order ID: [id number] Reason for Study:Bilateral leg pain. CAD (CABG), Aortic stenosis, HTN, hyperlipiedemia, diabetic, CVA and CHF. Procedures: B-flow imaging, Colorflow, G rayscale/2D, Pulsed wave Doppler Race: C SUMMARY: DUPLEX SCAN OBSERVATIONS: RIGHT: There is diffused hard plaque i n the common femoral, profunda femoral, superficial femoral, popliteal, posterior tibial, peroneal and anterior tibial arteries. There is > 50% stenosis in the common femoral artery. There is a 50% stenosis in the distal superficial femoral with monophasic Doppler signals. There is a 50-75% stenosis in the mid-anterior tibial artery. LEFT: There is diffused hard plaque in the common femoral, profunda femoral, superficial femoral, popliteal, posterior tibial, peroneal and anterior tibial arteries. There is a 50% stenosis in the distal superficial femoral artery. PRELIMINARY FINDINGS: 1. >50% stenosis in the right common femoral artery. 2. 50% stenosis in the right distal garcia perficial femoral with monophasic Doppler signals. 3. 50-75% stenosis in the right mid-an terior tibial artery. 4. 50% stenosis in the left distal sup erficial femoral artery. 5. RAYMUNDO's and TBI's are in the ankle br achial index study done same day. PHYSICIAN INTERPRETATION: Arterial duplex examination of both lo wer extremity demonstrates >50% stenosis in the right common femoral art kimberlyn and <50% stenosis in the right distal superficial femoral with mo nophasic Doppler signals. 50-75% stenosis in the right mid-anteri or tibial artery. >50% right peroneal stenosis. Decreased REEL TENDER flow. >50% stenosis in the left distal superf icial femoral artery. FINDINGS: MEASUREMENTS: DOPPLER Right STILL CLEANER TUBE prox STILL CLEANER TUBE prox PSV 409 cm/s Right Profunda Profunda PSV 144 cm/s Right SFA Dist SFA Dist PSV 76.3 cm/s Right SFA Mid SFA Mid PSV 76.3 cm/s Right SFA Prox SFA Prox PSV 105 cm/s Right Pop Dist Pop Dist PSV 52.9 cm/s Right Pop Prox Pop Prox PSV 34.3 cm/s Right REEL TENDER Dist REEL TENDER Dist PSV 21.5 cm/s Right REEL TENDER Mid REEL TENDER Mid PSV 18.8 cm/s Right REEL TENDER Prox REEL TENDER Prox PSV 26.7 cm/s REEL TENDER Prox PSV 26 cm/s Right Peroneal Mid Peroneal Mid PS 73.2 cm/s Right SEB Dist SEB Dist PSV 37.6 cm/s Left STILL CLEANER TUBE Dist STILL CLEANER TUBE Dist PSV 140 cm/s Left SFA Dist SFA Dist PSV 200 cm/s Left SFA Mid SFA Mid PSV 89.2 cm/s Left SFA Prox SFA Prox PSV 100 cm/s Left Pop Dist Pop Dist PSV 56.4 cm/s Left Pop Prox Pop Prox PSV 93.6 cm/s Pop Prox PSV 93 cm/s Left REEL TENDER Dist REEL TENDER Dist PSV 69.3 cm/s Left REEL TENDER Mid REEL TENDER Mid PSV 51.5 cm/s Left REEL TENDER Prox REEL TENDER Prox PSV 72.5 cm/s Left Peroneal Mid Peroneal Mid PS 105 cm/s Left Peroneal Prox Peroneal Prox P 58 cm/s Left SEB Dist SEB Dist PSV 12.8 cm/s Left SEB Mid SEB Mid PSV 98.4 cm/s Left SEB Prox SEB Prox PSV 93.6 cm/s SEB Prox PSV 93 cm/s Right STILL CLEANER TUBE Dist STILL CLEANER TUBE Dist PSV 409 cm/s Left Profunda Profunda PSV 64 cm/s Right SFA Dist 1 SFA Dist 1 PSV 72 cm/s Left SFA Dist 1 SFA Dist 1 PSV 125 cm/s Right SFA Dist 2 SFA Dist 2 PSV 126 cm/s Right REEL TENDER Distal REEL TENDER Distal PSV 21 cm/s Left REEL TENDER Distal REEL TENDER Distal PSV 69 cm/s Right Peroneal Prox Peroneal Prox P 32 cm/s Right SEB Prox SEB Prox PSV 66 cm/s Right SEB Mid SEB Mid PSV 35 cm/s Right SEB Mid 2 SEB Mid 2 PSV 250 cm/s Right SEB Distal SEB Distal PSV 37 cm/s Left SEB Distal SEB Distal PSV 13 cm/s Signed 05/10/2020 09:19 PM Chucky Swartz MD, RPVI Procedure Note Interface, Radiology Results In - 2019 9:19 PM [facility] Vascular Ultrasound Laboratory Lower Extremity Arterial Duplex Report [address] [place] [address] Pat.Name: MARCELA MERCADO Pat.I D: [id number] St.Date: 05/10/2020 Refer .MD: CHRIS RIOJAS DPM Exam Time: 10:06:00 AM Study Type:LE Arterial Age: 10 1935,85Y Sex: MALE Sonogrphr: HENRI Valencia Pat. Stat.:Inpatient Room: [address] Vol: , [facility] - 4: [address] Echo Event ID:[id number] Order ID: [id number] Reason for Study:Bilateral leg pain. CAD (CABG), Aortic stenosis, HTN, hyperlipiedemia, diabetic, CVA and CHF. Procedures: B-flow imaging, Colorflow, G rayscale/2D, Pulsed wave Doppler Race: C SUMMARY: DUPLEX SCAN OBSERVATIONS: RIGHT: There is diffused hard plaque in the common femoral, profunda femoral, superficial femoral, popliteal, posterior tibial, peroneal and anterior tibial arteries. There is > 50% stenosis in the common femoral artery. There is a 50% stenosis in the distal superficial femoral with monophasic Doppler signals. There is a 50-75% stenosis in the mid-anterior tibial artery. LEFT: There is diffused hard plaque in the common femoral, profunda femoral, superficial femoral, popliteal, posterior tibial, peroneal and anterior tibial arteries. There is a 50% stenosis in the distal superficial femoral artery. PRELIMINARY FINDINGS: 1. >50% stenosis in the right common f emoral artery. 2. 50% stenosis in the right distal sup erficial femoral with monophasic Doppler signals. 3. 50-75% stenosis in the right mid-ant erior tibial artery. 4. 50% stenosis in the left distal supe rficial femoral artery. 5. RAYMUNDO's and TBI's are in the ankle bra chial index study done same day. PHYSICIAN INTERPRETATION: Arterial duplex examination of both low er extremity demonstrates >50% stenosis in the right common femoral art kimberlyn and <50% stenosis in the right distal superficial femoral with mo nophasic Doppler signals. 50-75% stenosis in the right mid-anteri or tibial artery. >50% right peroneal stenosis. Decreased REEL TENDER flow. >50% stenosis in the left distal superf icial femoral artery. FINDINGS: MEASUREMENTS: DOPPLER Right STILL CLEANER TUBE prox STILL CLEANER TUBE prox PSV 409 cm/s Right Profunda Profunda PSV 144 cm/s Right SFA Dist SFA Dist PSV 76.3 cm/s Right SFA Mid SFA Mid PSV 76.3 cm/s Right SFA Prox SFA Prox PSV 105 cm/s Right Pop Dist Pop Dist PSV 52.9 cm/s Right Pop Prox Pop Prox PSV 34.3 cm/s Right REEL TENDER Dist REEL TENDER Dist PSV 21.5 cm/s Right REEL TENDER Mid REEL TENDER Mid PSV 18.8 cm/s Right REEL TENDER Prox REEL TENDER Prox PSV 26.7 cm/s REEL TENDER Prox PSV 26 cm/s Right Peroneal Mid Peroneal Mid PS 73.2 cm/s Right SEB Dist SEB Dist PSV 37.6 cm/s Left STILL CLEANER TUBE Dist STILL CLEANER TUBE Dist PSV 140 cm/s Left SFA Dist SFA Dist PSV 200 cm/s Left SFA Mid SFA Mid PSV 89.2 cm/s Left SFA Prox SFA Prox PSV 100 cm/s Left Pop Dist Pop Dist PSV 56.4 cm/s Left Pop Prox Pop Prox PSV 93.6 cm/s Pop Prox PSV 93 cm/s Left REEL TENDER Dist REEL TENDER Dist PSV 69.3 cm/s Left REEL TENDER Mid REEL TENDER Mid PSV 51.5 cm/s Left REEL TENDER Prox REEL TENDER Prox PSV 72.5 cm/s Left Peroneal Mid Peroneal Mid PS 105 cm/s Left Peroneal Prox Peroneal Prox P 58 cm/s Left SEB Dist SEB Dist PSV 12.8 cm/s Left SEB Mid SEB Mid PSV 98.4 cm/s Left SEB Prox SEB Prox PSV 93.6 cm/s SEB Prox PSV 93 cm/s Right STILL CLEANER TUBE Dist STILL CLEANER TUBE Dist PSV 409 cm/s Left Profunda Profunda PSV 64 cm/s Right SFA Dist 1 SFA Dist 1 PSV 72 cm/s Left SFA Dist 1 SFA Dist 1 PSV 125 cm/s Right SFA Dist 2 SFA Dist 2 PSV 126 cm/s Right REEL TENDER Distal REEL TENDER Distal PSV 21 cm/s Left REEL TENDER Distal REEL TENDER Distal PSV 69 cm/s Right Peroneal Prox Peroneal Prox P 32 cm/s Right SEB Prox SEB Prox PSV 66 cm/s Right SEB Mid SEB Mid PSV 35 cm/s Right SEB Mid 2 SEB Mid 2 PSV 250 cm/s Right SEB Distal SEB Distal PSV 37 cm/s Left SEB Distal SEB Distal PSV 13 cm/s Signed 05/10/2020 09:19 PM Chucky Swartz MD, RPVI Performing Organization Address City/[facility] Phon e Number [facility] [address] [place] [address] C-reactive protein (05/10/2020 4:43 AM CLINICAL ASSESSMENT MANAGER) Pathologist Sig nature CRP 5.50 (H) 0.00 - 0.50 mg/dL [facility] SONAL Specimen Plasma Performing Organization Address City/State/[facility] Phon e Number [facility] DEPARTMENT OF PATHOLOGY AND [address] [place] [address] [phone] [address] Vancomycin level, random (05/10/2020 4:43 AM CLINICAL ASSESSMENT MANAGER) Pathologist Sig nature Vancomycin, random 8.8 ug/mL [facility] ITAL Specimen Serum Performing Organization Address [facility] Phon e Number [facility] DEPARTMENT OF PATHOLOGY AND [address] [place] [address] [phone] [address] Sedimentation rate (05/10/2020 4:20 AM CLINICAL ASSESSMENT MANAGER) Pathologist Sig nature Sedimentation rate 25 (H) 0 - 10 mm/hr [facility] Specimen Plasma Performing Organization Address [facility] Phon e Number [facility] DEPARTMENT OF PATHOLOGY AND [address] [place] [address] [phone] [address] Hemoglobin A1c (05/10/2020 4:20 AM CLINICAL ASSESSMENT MANAGER)Only the most recent of3 resultswithin the time period is included. Hemoglobin A1C 7.7 (H) 4.0 - 5.6 % [facility] Comment: HOSPITAL HbA1c cutoffs for diagnosing diabetes: 4.0% - 5.6% = normal 5.7% - 6.4% = increased risk for diabetes (prediabetes )9 >=6.5% = diabetes9 Goals for glycemic control (ADA 2016) < 7.0% Target for non adults with diabetes. More or less stringent targets may be appropriate for individual patients. <7.5% Target for Children and adolescents with type 1 diabetes. Specimen Blood Performing Organization Address [facility] Phon e Number [facility] DEPARTMENT OF PATHOLOGY AND [address] [place] [address] [phone] [address] [address] Abdomen Pelvis Wo Contrast (05/09/2020 5:30 PM CLINICAL ASSESSMENT MANAGER) Specimen Narrative Performed At EXAMINATION: CT ABDOMEN PELVIS WO CONT RAST HM [facility] CLINICAL HISTORY: GNR bacteremia with vomiting rul e out GI source or abscess TECHNIQUE: Multiple axial images of the abdomen and pe lvis were obtained without intravenous administration of iodinated contra st. Sagittal and coronal computerized reformatted images were also obta ined. The lack of intravenous contrast reduces the sensitivity of detecting solid organ dis ease. CT imaging was performed with iterative reconstruction techniques and/or automated exposure control to reduce rad iation dose. COMPARISON: November 04, 2014 CT scan FINDINGS: Abdomen: 1. The spleen is enlarged with some subcapsular calcif ication, probably related to old trauma. This appearance is stable since the prior examination. 2.There has been a cholecystectomy. No focal lesions a re seen in the liver, pancreas. 3.There are several and adrenal myelolipoma is unchang ed since prior study. 4.There is no hydronephrosis in the kidneys. There is a 4.5 cm cyst arising from the lower pole of the right kidney. No pe rinephric fluid collections are seen. 5.The abdominal aorta is densely calcifi ed but is of normal caliber. 6.The appendix is visualized and has nor mal appearance. Pelvis: 1. No CT findings of acute diverticuliti s. 2.No pelvic sidewall mass or adenopathy. 3.The prostate gland is diffusely enlarg ed. IMPRESSION: No acute abnormality identified. Stable appearance sin ce the prior examination. [id number] Procedure Note Hm Interface, Radiology Results Incoming - 05/09/2020 6:41 PM CLINICAL ASSESSMENT MANAGER EXAMINATION: CT ABDOMEN PELVIS WO CONTRAST CLINICAL HISTORY: GNR bacteremia with v omiting rule out GI source or abscess TECHNIQUE: Multiple axial images of the abdomen and pelvis were obtained without intravenous administration of iodinated contrast. Sagittal and coronal computerized reformatted images were also obtained. The lack of intravenous contrast reduces the sensitivity of detecting solid organ dis ease. CT imaging was performed with iterative reconstruction techniques and/or automated exposure control to reduce radiation dose. COMPARISON: November 04, 2014 CT scan FINDINGS: Abdomen: 1. The spleen is enlarged with some subc apsular calcification, probably related to old trauma. This appearance is stable since the prior examination. 2.There has been a cholecystectomy. No f ocal lesions are seen in the liver, pancreas. 3.There are several and adrenal myelolip sally is unchanged since prior study. 4.There is no hydronephrosis in the kidn eys. There is a 4.5 cm cyst arising from the lower pole of the right kidney. No perinephric fluid collections are seen. 5.The abdominal aorta is densely calcifi ed but is of normal caliber. 6.The appendix is visualized and has nor mal appearance. Pelvis: 1. No CT findings of acute diverticuliti s. 2.No pelvic sidewall mass or adenopathy. 3.The prostate gland is diffusely enlarg ed. IMPRESSION: No acute abnormality identified. Stable appearance since the prior examination. [id number] Performing Organization Address [facility] Phon e Number [facility] [address] [place] [address] XR Foot 3+ Vw Left (05/08/2020 8:05 PM CLINICAL ASSESSMENT MANAGER) Specimen Narrative Performed At EXAMINATION: XR FOOT 3 VW LEFT [facility] CLINICAL HISTORY: Osteomyelitis suspec julien foot swelling diabetic COMPARISON: None. IMPRESSION: There is diffuse soft tissue swelling in the second di git. There may be a small focal area of bone destruction involving the t ip of the distal phalanx. Osteomyelitis at this site is not excluded. M RI scan would provide more sensitive evaluation of warranted. [id number] Procedure Note Interface, Radiology Results Incoming - 05/08/2020 8:14 PM CLINICAL ASSESSMENT MANAGER EXAMINATION: XR FOOT 3 VW LEFT CLINICAL HISTORY: Osteomyelitis suspect ed foot swelling diabetic COMPARISON: None. IMPRESSION: There is diffuse soft tissue swelling in the second digit. There may be a small focal area of bone destruction involving the tip of the distal phalanx. Osteomyelitis at this site is not excluded. MRI scan would provide more sensitive evaluation of warranted. [id number] Performing Organization Address [facility] Phon e Number [facility] [address] [place] [address] Lactic acid level, SEPSIS - Now and repeat 2x every 3 hours (05/08/2020 6:58 PM CLINICAL ASSESSMENT MANAGER)Only the most recent of2 resultswithin the time period is included. Pathologist Sig nature Lactic acid 1.5 0.5 - 2.2 mmol/L [facility] Specimen Blood Performing Organization Address City/[facility]/ZIP Code Phon e Number [facility] DEPARTMENT OF PATHOLOGY AND [address] [place] [phone] GENOMIC MEDICINE [address] [address] Troponin (05/08/2020 6:58 PM CLINICAL ASSESSMENT MANAGER)Only the most recent of6 resultswithin the time period is included. Pathologist [facility] Troponin 0.076 (H) 0.000 - 0.040 [facility] Comment: ng/mL HOSPITAL In patients suspected of having a myocardial infarctio n, along with all other appropriate clinical measures and actions includ ing ECG and other diagnostics as appropriate, measure Ultra TnI at 0 hrs and at 3 hrs. Myocardial infarction VERY LIKELY The 0 hr TnI level is > 0.10 ng/mL Myocardial infarction LIKELY The 0 hr TnI level is > 0.04 ng/mL and 3 hr level is i ncreased or decreased by at least 0.020 ng/mL Myocardial infarction VERY UNLIKELY Both the 0 hr and 3 hr TnI levels <= 0.04 ng/mL(within normal limits) OR 0 hr is > 0.04 ng/mL and 3 hr is increased OR decreased by less than 0.020 ng/mL Specimen Plasma Performing Organization Address City/State/ZIP Code Phon e Number [facility] DEPARTMENT OF PATHOLOGY AND [address] [place] [phone] GENOMIC MEDICINE [address] [address] COVID-19 qualitative PCR (05/08/2020 4:50 PM CLINICAL ASSESSMENT MANAGER)Only the most recent of4 resultswithin the time period is included. [facility] [facility] Interpretation Negative results do not prec lude 2019-nCoV infection and should not be used as the sole basis for treatment or other patient management decisions. Negative results must be combined with clinical observations, patient history, and epidemiological [place] information. [facility] COVID-19 qualitative Not-Detected Not-Detecte [place] PCR result d [facility] See link below for [place] PCR PDF Lab DENOMINATIONAL ReportComment: Case HOSPITAL Number: [id number] Specimen Nasopharyngeal swab Performing Organization Address City/[facility]/ZIP Code Phon e Number [facility] DEPARTMENT OF PATHOLOGY AND [address] [place], [place] [phone] GENOMIC MEDICINE [facility] [address] [place] [address] [facility] XR Chest 1 Vw Portable (05/08/2020 3:17 PM CLINICAL ASSESSMENT MANAGER)Only the most recent of5 results within the time period is included. Specimen Narrative Performed At EXAMINATION: XR CHEST 1 VW PORTABLE RADIANT CLINICAL HISTORY: 85 years Male [facility] COMPARISON: 02/28/2020 IMPRESSION: 1.Midline sternotomy wires and valve replacement. Left chest wall cardiac device and right-sided PICC line are similar to prior. 2.Cardiomediastinal silhouette is stable. There are ca lcifications in the aortic arch. Mild prominence of the central vasculature. 3.Lungs are hypoinflated with bibasilar atelectasis. N o consolidation or effusion. 4.No acute bony findings. [id number] Procedure Note Hm Interface, Radiology Results Incoming - 05/08/2020 3:25 PM CLINICAL ASSESSMENT MANAGER EXAMINATION: XR CHEST 1 VW PORTABLE CLINICAL HISTORY: 85 years Male [facility] COMPARISON: 02/28/2020 IMPRESSION: 1.Midline sternotomy wires and valve rep lacement. Left chest wall cardiac device and right-sided PICC line are similar to prior. 2.Cardiomediastinal silhouette is stable . There are calcifications in the aortic arch. Mild prominence of the central vasculature. 3.Lungs are hypoinflated with bibasilar atelectasis. No consolidation or effusion. 4.No acute bony findings. [id number] Performing Organization Address City/[facility]/ZIP Code Phon e Number [facility] [address] [place] [address] ECG ED Preliminary Interpretation - Not an Order (05/08/2020 3:00 PM CLINICAL ASSESSMENT MANAGER)Only the most recent of2 resultswithin the time period is included. Narrative Performed At Chetan Yates MD 05/09/2020 11:48 AM ECG ED Preliminary Interpretation - Not an Order Performed by: Chetan Yates MD Authorized by: Chetan Yates MD ECG reviewed by ED Physician in the abse nce of a industrial boilermaker: yes Previous ECG: Previous ECG: Unavailable Interpretation: Interpretation: normal Rate: ECG rate: 78 Rhythm: Rhythm: paced Pacing: Type of pacing: Ventricular Ectopy: Ectopy: none QRS: QRS axis: Normal QRS intervals: Normal ST segments: ST segments: Normal T waves: T waves: normal ECG 12 lead (05/08/2020 1:30 PM CLINICAL ASSESSMENT MANAGER)Only the most recent of5 resultswithin the time period is included. Pathologist Sig nature Ventricular rate 78 [facility] Atrial rate 79 [facility] MS interval 174 [facility] QRSD interval 174 [facility] QT interval 494 [facility] QTC interval 563 [facility] QRS axis 1 254 [facility] T wave axis 83 [facility] EKG impression AV dual-paced [facility] rhythm-Biventricular pacemaker detected-Abnormal ECG-In automated comparison with ECG of 24-FEB-2020 21:29,-Vent. rate has increased BY 5 BPM- Specimen Narrative Performed At This result has an attachment that is no t available. Performing Organization Address City/State/[facility] Phon e Number [facility] MUSE [address] [place] [address] labor service representative procedure (04/26/2020 9:18 AM CDT) Specimen Narrative Performed At This result has an attachment that is no t available. Mildly elevated right and left sided filling pressures. HM [facility] Mild postcapillary pulmonary hypertension. Low normal cardiac output on milrinone 0.5 mcg CardioMEMS calibrated with no changes made. PAD 17 mmg on CardioMEMS. Performing Organization Address City/State/ZIP [facility] [place] [place] Phon e Number [facility] [address] T3, free (02/29/2020 4:45 AM CDT)Only the most recent of2 resultswithin the time period is included. Pathologist Sig nature T3, free 1.3 (L) 2.4 - 4.2 pg/mL [facility] Comment: REFERENCE INTERVAL: Triiodothyronine, Free (Free T3) Access complete set of age- and/or gender-specific ref erence intervals for this test in the [facility] Test Di rectory ([place]). Performed By: [facility] [address] [place] [address] Program Clerk: Collin Conrad MD, MS Specimen Serum Performing Organization Address [facility] Phon e Number [facility] [address] [place] [address] [facility] [address] [place] [address] T3 (02/29/2020 4:00 AM CDT)Only the most recent of2 resultswithin the time period is included. Pathologist Sig nature T3 46 (L) 80 - 200 ng/dL [facility] Specimen Blood Performing Organization Address [facility] Phon e Number [facility] DEPARTMENT OF PATHOLOGY AND [address] [place] [address] [place] [address] Thyroid stimulating hormone (02/29/2020 4:00 AM CDT)Only the most recent of5 resultswithin the time period is included. Pathologist Sig nature TSH 2.10 0.27 - 4.20 uIU/mL [facility] Specimen Blood Performing Organization Address [facility] Phon e Number [facility] DEPARTMENT OF PATHOLOGY AND [address] [place] [address] [phone] [address] T4, free (02/29/2020 4:00 AM CDT)Only the most recent of5 resultswithin the time period is included. Pathologist Sig nature T4, free 2.5 (H) 0.9 - 1.7 ng/dL [facility] Specimen Blood Performing Organization Address [facility] Phon e Number [facility]MENT OF PATHOLOGY AND [address] [place] [address] [phone] [address] PICC insertion (02/28/2020 7:14 PM CDT) Narrative Performed At Francine Stubbs RN 02/28/2020 7:16 PM PICC insertion Date/Time: 02/28/2020 7:14 PM Performed by: Regi Feng RN Authorized by: Coby Mora MD Consent: Consent obtained: Verbal and writte n Consent given by: Patient Risks discussed: arterial puncture, incorrect place ment, nerve damage, bleeding, infection, superficial thrombu s and deep vein thrombus Alternatives discussed: Delayed janette atment and no treatment [place] protocol: Procedure explained and questions ans wered to patient or proxy's satisfaction: yes Test results available and properly l abeled: yes Imaging studies available: yes Required blood products, implants, de vices, and special equipment available: yes Site/side marked: yes Immediately prior to procedure, a brittaney e out was called: yes Patient identity confirmed: Verball y with patient, arm band and hospital-assigned identification number Pre-procedure details: Hand hygiene: Hand hygiene performed prior to insertion Sterile barrier technique: All elemen ts of maximal sterile technique followed Skin preparation: ChloraPrep Skin preparation agent: Skin preparation agent comp letely dried prior to procedure Anesthesia (see MAR for exact dosages): Anesthesia method: Local infiltrati on Local anesthetic: Lidocaine 1% w/o epi Route of administration: Subcutaneo us Line Placement Details: Patient position: Flat Vessel Size (mm): 5.0. Indication: Vesicants Location: Right basilic Device Type: Non-valved Catheter size: 4 Fr Line Characteristics: Catheter Brand: TransEnterix PowerPICC Prov marilou External Catheter Length (cm): 0 Internal Catheter Length (cm): 43 Total Catheter Length (cm): 43 Catheter Lot Number: [id number] Catheter Expiration Date: 12/04/2020 Procedure Details: Landmarks identified: yes Ultrasound guidance: yes Sterile ultrasound techniques: Sterile gel and ster ile probe covers were used Number of attempts: 1 Number of PICC kits used during proce dure: 1 Purpose of procedure: PICC Placemen t Successful PICC Placement: Yes Patency/Placement: Flushes without difficulty, flushed with 10 mL normal saline, x-ray placement verified, positive blood return and injection cap placed PICC placed utlizing ultrasound-guided Modified Liyah lane Technique: Yes Dressing/Securement: Catheter secur ement device and antimicrobial dressing applied Blood Loss Amount: Less than 20 mL Post-Procedure Details: Post-procedure: Dressing applied Tip placement confirmed by chest x-ra y: Yes Patient tolerance of procedure: Evon erated well, no immediate complications Potassium level (02/27/2020 12:50 PM CDT)Only the most recent of2 resultswithin the time period is included. Pathologist Sig nature Potassium 4.3 3.5 - 5.0 mEq/L [facility] L Specimen Blood Performing Organization Address City/[facility]/ZIP Code Phon e Number [facility] DEPARTMENT OF PATHOLOGY AND [address] [place] [address] [phone] [address] [place] Fluoroscopy Of Diaphragm 2 Vw Chest (02/26/2020 9:27 AM CDT) Specimen Narrative Performed At EXAMINATION: [place] FLUOROSCOPY OF DIAPHRA GM 2 VW CHEST RADIANT CLINICAL HISTORY: dyspnea COMPARISON: None. TECHNIQUE: Diaphragms were observed under fluoroscopy during quiet and deep breathing and with sniff testing. Radiation dose: 11.4 mGy air kerma IMPRESSION: Right hemidiaphragm is slightly elevated, with slightl y decreased excursion. This is consistent with a mild paresis. No paradoxical motion. Left hemidiaphragm demonstrates normal p osition and excursion. [id number] Procedure Note Hm Interface, Radiology Results Incoming - 02/26/2020 9:36 AM CDT EXAMINATION: FL FLUOROSCOPY OF DIAPHRAGM 2 VW CHEST CLINICAL HISTORY: dyspnea COMPARISON: None. TECHNIQUE: Diaphragms were observed unde r fluoroscopy during quiet and deep breathing and with sniff testing. Radiation dose: 11.4 mGy air kerma IMPRESSION: Right hemidiaphragm is slightly elevated , with slightly decreased excursion. This is consistent with a mild paresis. No paradoxical motion. Left hemidiaphragm demonstrates normal p osition and excursion. [id number] Performing Organization Address [facility] Code Phon e Number HM RADIANT [address] [place] [address] Total iron binding capacity (02/26/2020 4:00 AM CDT) Pathologist Sig nature Iron level 30 (L) 59 - 158 ug/dL [facility] Iron binding capacity 308 200 - 400 ug/dL [facility] % Saturation 9.7 (L) 20.0 - 40.0 % [facility] Specimen Blood Performing Organization Address City/[facility]/ZIP Code Phon e Number [facility] DEPARTMENT OF PATHOLOGY AND [address] [place] [phone] GENOMIC [address] [address] Ferritin level (02/26/2020 4:00 AM CDT) Pathologist Sig nature Ferritin level 20 (L) 30 - 400 ng/mL [facility] Specimen Blood Performing Organization Address City/State/ZIP Code Phon e Number [facility] DEPARTMENT OF PATHOLOGY AND [address] [facility] [place]. [place], [place] [address] GENOMIC MEDICINE [facility] [address] [place] [address] CT Chest Wo Contrast (02/25/2020 6:53 PM CDT)Only the most recent of2 results within the time period is included. Specimen Narrative Performed At EXAMINATION: RADIANT CT CHEST WO CONTRAST CLINICAL HISTORY: Shortness of breath TECHNIQUE: Multiple axial images were obtained from the lung apic es to the lung bases without the administration of intravenous contra st.The lack of intravenous contrast reduces the sensitivity of detect ing solid organ disease and evaluating vasculature. High-resolution, coronal, and sagittal reformats were obtained.CT imaging was performed with iterative reconstruction te chnique and/or automated exposure control to reduce rad iation dose. COMPARISON: 01/20/2020 FINDINGS: Heart size is normal. There is coronary artery calcifi cation. There is bilateral gynecomastia. The aorta measures within normal limits. The pulmona ry artery is within normal limits. There is no enlarged mediastinal lymph node. Lymph nod es are slightly smaller than on the previous study. Tiny calcified granulomata are seen left lower lobe. The liver, pancreas, left adrenal, spleen, and kidneys are within normal limits in their visible portions. A suspicious osseous lesion is not seen. Cholecystectomy clips are seen. 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 IMPRESSION: No acute pulmonary process. Right adrenal myelolipoma. Small mediastinal lymph nodes without lymphadenopathy, decreased in size from the previous study. Procedure Note Interface, Radiology Results Incoming - 02/25/2020 7:16 PM CDT EXAMINATION: CT CHEST WO CONTRAST CLINICAL HISTORY: Shortness of breath TECHNIQUE: Multiple axial images were obtained from the lung apices to the lung bases without the administration of intravenous contrast.The lack of intravenous contrast reduces the sensitivity of detecting solid organ disease and evaluating vasculature. High-resolution, coronal, and sagittal r eformats were obtained.CT imaging was performed with iterative reconstruction technique and/or automated exposure control to reduce radiation dose. COMPARISON: 01/20/2020 FINDINGS: Heart size is normal. There is coronary artery calcification. There is bilateral gynecomastia. The aorta measures within normal limits. The pulmonary artery is within normal limits. There is no enlarged mediastinal lymph n ode. Lymph nodes are slightly smaller than on the previous study. Tiny calcified granulomata are seen left lower lobe. The liver, pancreas, left adrenal, splee n, and kidneys are within normal limits in their visible portions. A suspicious osseous lesion is not seen. Cholecystectomy clips are seen. 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 IMPRESSION: No acute pulmonary process. Right adrena l myelolipoma. Small mediastinal lymph nodes without lymphadenopathy, decreased in size from the previous study. Performing Organization Address City/State/ZIP Code Phon e Number [facility] [address] [place] [address] Uric acid level (02/25/2020 4:00 AM CDT)Only the most recent of2 resultswithin the time period is included. Pathologist Sig nature Uric acid 9.3 (H) 3.4 - 7.0 mg/dL [facility] L Specimen Blood Performing Organization Address City/State/ZIP Code Phon e Number [facility] DEPARTMENT OF PATHOLOGY AND [address] [place] [phone] GENOMIC MEDICINE [facility] [address] [place] [address] Urine culture (02/25/2020 2:23 AM CDT)Only the most recent of3 resultswithin the time period is included. Urine culture Klebsiella pneumoniae [facility] isolate >10-5 cfu/ml HOSPITAL The performance characteristics of this assay on this isolate were validated by the Microbiology Laboratory at [facility]. This source has not been approve d by the U.S. Food and Drug Administration. The results are n ot intended to be used as the sole means for clinical gucci gnosis or patient management. The Microbiology Laboratory i s authorized under the clinical Laboratory Improvement Amendments of 1988 (CLIA-88) to perform high complexit y testing. (A) Comment: Specimen Information Specimen Source: Urine Specimen Site: Clean catch Specimen Urine Organism Antibiotic Method Susceptibility Klebsiella pneumoniae Ampicillin MICHELLE >16 mcg/mL : Resistant Klebsiella pneumoniae Amoxicillin/Clavulanate MICHELLE <= 4/2 mcg/mL: Susceptible Klebsiella pneumoniae Amikacin MICHELLE <=8 mcg/mL : Susceptible Klebsiella pneumoniae Aztreonam MICHELLE <=2 mcg/mL : Susceptible Klebsiella pneumoniae Ceftazidime MICHELLE <=2 mcg/mL : Susceptible Klebsiella pneumoniae Ciprofloxacin MICHELLE <=0.25 mcg /mL: Susceptible Klebsiella pneumoniae Ceftriaxone MICHELLE <=1 mcg/mL : Susceptible Klebsiella pneumoniae Cefuroxime Sodium MICHELLE <=4 mcg/ mL: Susceptible Klebsiella pneumoniae Cefazolin MICHELLE 2 mcg/mL: Susceptible Klebsiella pneumoniae Cefepime MICHELLE <=1 mcg/mL : Susceptible Klebsiella pneumoniae Nitrofurantoin MICHELLE 32 mcg/mL: Susceptible Klebsiella pneumoniae Cefoxitin MICHELLE <=4 mcg/mL : Susceptible Klebsiella pneumoniae Gentamicin MICHELLE <=2 mcg/mL : Susceptible Klebsiella pneumoniae Levofloxacin MICHELLE <=0.5 mcg/ mL: Susceptible Klebsiella pneumoniae Meropenem MICHELLE <=0.5 mcg/ mL: Susceptible Klebsiella pneumoniae Tobramycin MICHELLE <=2 mcg/mL : Susceptible Klebsiella pneumoniae Ampicillin/Sulbactam MICHELLE 8/4 m cg/mL: Susceptible Klebsiella pneumoniae Trimethoprim/Sulfamethoxazol MICHELLE <=0.5/9.5 mcg/mL: e Susceptible Klebsiella pneumoniae Tetracycline MICHELLE <=2 mcg/mL : Susceptible Klebsiella pneumoniae Piperacillin/Tazobactam MICHELLE 4/ 4 mcg/mL: Susceptible Klebsiella pneumoniae Ertapenem MICHELLE <=0.25 mcg /mL: Susceptible Klebsiella pneumoniae Tigecycline MICHELLE <=1 mcg/mL : Susceptible Performing Organization Address City/State/ZIP Code Phon e Number [facility] DEPARTMENT OF PATHOLOGY AND [address] [place] [phone] [address] Urinalysis screen and microscopy, with reflex to culture (02/25/2020 1:00 AM CDT)Only the most recent of3 resultswithin the time period is included. Specimen site Clean catch [facility] Color, UA Straw [facility] Appearance, UA Clear [facility] Specific gravity, UA 1.010 1.001 - 1.035 [facility] pH, UA 5.0 5.0 - 8.5 [facility] Protein, UA 1+ (A) Negative [facility] Glucose, UA Negative Negative [facility] Ketones, UA Negative Negative [facility] Bilirubin, UA Negative Negative [facility] Blood, UA Moderate (A) Negative [facility] Nitrite, UA Negative Negative [facility] Urobilinogen, UA <2.0 <2.0 [facility] Leukocyte esterase, Large (A) Negative [facility] Epithelial cells, UA 1 /HPF [facility] WBC, UA 73 (H) 0 - 1 /HPF [facility] RBC, UA 5 0 - 5 /HPF [facility] Bacteria, UA Many (A) None seen [facility] Yeast, UA None seen [facility] Yeast with None seen [facility] pseudohyphae, UA HOSPITAL Hyaline casts, UA 16 /LPF [facility] Specimen Urine Performing Organization Address City/[facility]/ZIP Code Phon e Number [facility] DEPARTMENT OF PATHOLOGY AND [address] [place], [place] [phone] [facility] [address] [place] [phone] Manual differential (02/24/2020 9:30 PM CDT) Manual differential PERFORMED [facility] Neutrophils 66.0 39.0 - 69.0 % [facility] Lymphocytes 21.0 (L) 25.0 - 45.0 % [facility] Monocytes 10.0 0.0 - 10.0 % [facility] Eosinophils 3.0 0.0 - 5.0 % [facility] Basophils 0.0 0.0 - 1.0 % [facility] Metamyelocytes 0 % [facility] Promyelocytes 0 % [facility] Platelet slide review Pauline adequate [facility] Specimen Performing Organization Address City/[facility] Phon e Number [facility] DEPARTMENT OF PATHOLOGY AND [address] [place] [phone] [facility] [address] [place] [address] labor service representative procedure (02/24/2020 3:14 PM CDT) Specimen Narrative Performed At This result has an attachment that is no t available. CARDIAC CATHETERIZATION PROCEDURE REPORT [facility] FINDINGS HEMODYNAMIC DATA: Condition : Initial 1. Right atrial pressure is 10mmHg. 2. Right Ventricular Pressure 38/8/10mmHg. 3. PA Pressure 40/20, mean 27mmHg. 4. Pulmonary capillary wedge pressure 18mmHg. 5. The transpulmonary gradient is 9mmHg with a PVR of 2.16 wood units. Diastolic pressure gradient is 2mmHg. 6. By Shu, CO: 4.17 l/min, CI 1.91 l/min/sqm, HEMODYNAMIC DATA: Condition : Post Device 1.PA Pressure 47/26, mean 33mmHg. 2.Pulmonary capillary wedge pressure 28mmHg. 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 Pathologist Sig nature NT-proBNP 1,318 (H) pg/mL [facility] Comment: DIAGNOSTICS/[facility] Male Risk: Optimal < 253 pg/mL High > or = 253 pg/mL For Heart Failure (HF) diagnosis, reference ranges in patients with dyspnea are based on Quoc JL, Et al. J Am Rodolfo Cardiol. 2018;71:4525-7001. 18-49 years: <= 300 pg/mL Normal, HF unlikely >= 450 pg/mL High probability of HF 50-75 years: <= 300 pg/mL Normal, HF unlikely >= 900 pg/mL High probability of HF >75 years: <= 300 pg/mL Normal, HF unlikely >= 1800 pg/mL High probability of HF For patients with coronary heart disease, the optimal risk category cut points for incident HF or CVD (<253 pg/mL men, <372 pg/mL women) are based on Fredland T, et al. J Am Rodolfo Cardiol. 2007:50:205-14. For patients with existing HF, the optimal risk category cut point for HF progression (<300 pg/mL) is based on Carmelo KB, et al. Clin Biochem. 2010;43:1405-10. For additional information, please refer to http://education.MicroQuant/faq/WDW613 (This link is being provided for informational/educati onal purposes only.) Specimen Blood Narrative Performed At FASTING:NO [facility] FASTING: NO Resulting Agency Comment Performing Organization Information: Site ID: [id number] Name: [employer] [facility], Address: [address] [place] [id number] Director: Nissa Frey MD,PhD,MB A Performing Organization Address [facility] Phon e Number [facility] [employer] [facility] [address] [place] [address] [facility] [address] [place] lambda free light chain with ratio (01/25/2020 4:00 PM CDT) Pathologist Sig nature [place] light chain 39.53 (H) 3.30 - 19.40 [facility] mg/L HOSPITAL Lambda light chain 24.21 5.70 - 26.30 [facility] mg/L [facility] [place] lambda ratio 1.63 0.26 - 1.65 [facility] Specimen Blood Performing Organization Address City/[facility] Phon e Number [facility] DEPARTMENT OF PATHOLOGY AND [address] [place] [address] [address] Immunofixation, serum (01/25/2020 4:00 PM CDT) Immunofixation, SEE COMMENTComment: See [facility] serum electrophoresis report HOSPITAL below. Specimen Serum Performing Organization Address [facility] Phon e Number [facility] DEPARTMENT OF PATHOLOGY AND [address] [place] [address] [address] [address] Serum electrophoresis (01/25/2020 4:00 PM CDT) Protein 5.8 (L) 6.3 - 8.3 [place] Comment: g/dL DENOMINATIONAL - [facility] [place] 4.6-7.0 g/dL 1 week 4.4-7.6 g/dL 7 months-1year 5.1-7.3 g/dL 1-2 years 5.6-7.5 g/dL >3 years 6.0-8.0 g/dL 18-150 6.3-8.3 g/dL SPE albumin 3.02 (L) 3.51 - 5.42 [place] g/dL [facility] SPE alpha 1 0.37 0.18 - 0.40 [place] g/dL [facility] SPE alpha 2 0.93 0.44 - 0.96 [place] g/dL [facility] SPE beta 0.74 0.52 - 1.07 [place] g/dL [facility] SPE gamma 0.73 0.70 - 1.54 [place] g/dL [facility] SPE extended See Comment LEDEZMA interpretation Comment: DENOMINATIONAL Total protein and albumin are decreased while e relative concentrations [facility] of alpha-1 globulins and alpha-2 globulins are increas ed indicating an acute phase response to infection, inflammation or tis irwin injury. No monoclonal bands are seen on immunofixation. SPE interpretation See CommentComment: BRISA Reza MD/PhD; Cecilia Dior, PhD; [facility] Specimen Serum Performing Organization Address City/State/ZIP Code Phon e Number [facility] DE[facility] OF [facility]OLOG[facility] AND [address] [place] [address] GENOMIC MEDICINE [facility] [address] [place] [phone] Cv pyp scan for cardiac amyloidosis (01/25/2020 12:50 PM CDT) Specimen Narrative Performed At This result has an attachment that is no t available. [facility] Nuclear Cardiology and Card iac CT [address] [place] [address] Department Number: PYP Cardiac Amyloidosis Imagin g Report Pat.Name: MARCELA MERCADO at.ID: [id number] .Date: 01/25/2020 Refer.MD: NICCI SAWANT MD Exam Time: 1:01:00 PM Study Type:PYP Cardiac Amyloidosis Imaging Height: 71in Weight: 224lb BSA: 2.21 m2 Age: 11 1935,84Y Sex: MALE Nuclear Tech:Sonya Zaman [facility]/Alo frye [facility] Pat. Stat.:Inpatient Nuclear Event ID:[id number] Order ID: [id number] Reason for Study:Ischemic Cardiomyopathy/Assessment of Viability-Known severe LV dysfunction; Patient eligible for revascular ization History / Clinical:Hypertension, CAD, PAD, A fib on El iquis, hypothyroidism, type 2 diabetes. Procedures: PYP Cardiac Amyloidosis Race: C SUMMARY: Technique: A Tc-99m pyrophosphate study was performed to assess f or presence and type of amyloidosis. The patient was given an intraven ous injection of 20 mCi Tc-99m Pyrophosphate followed by a planar and S PECT image acquisition 1 hour post injection. Planar imaging of the heart was performed in the anterior, LIBYAN, and lateral projection s followed by a cardiac SPECT acquisition. Findings: The overall quality of the study was good. Semi-jennifer titative visual assessment of myocardial count intensity was grade 1wh ich indicates cardiac uptake less than bone. Quantitative heart to contralateral lung ratios: 1.25 at l hour and 1.03 at 3 hours. SPECT-CT images show no significant myocardial tracer uptake at 1 or at 3 hours but with significant tracer in the blood po ol at [address] Findings: Coronary calcification and/or stents are present in th e LAD, right and circumflex coronary arteries. Status post CABG. Aortic valve prosthesis. The ascending and descending aorta are nor mal in size. Severely calcified aortic arch and descending aorta. C RT-D device leads in the RA, RV and coronary sinus.There is no sig nificant pericardial effusion. Limited lung weir show no sign ificant abnormalities. Bilateral gynecomastia. Impression: The overall study results are not suggestive for trans thryetin amyloidosis (ATTR). FINDINGS: Signed 01/25/2020 07:19 PM Erlin Miller MD Procedure Note Interface, Radiology Results In - 2019 7:20 PM CDT Nuclear Cardiology and Cardiac CT [address] [place] [address] Department Number: PYP Cardiac Amyloidosis Imaging Report Pat.Name: MARCELA MERCADO Pat.I D: [id number] .Date: 01/25/2020 Refer .MD: NICCI SAWANT MD Exam Time: 1:01:00 PM Study Type:PYP Cardiac Amyloidosis Imagi ng Height: 71in Weigh t: 224lb BSA: 2.21 m2 Age: 11 1935,84Y Sex: MALE Nuclear Tech:ELY Reyes, [facility]ELY Jaimes Pat. Stat.:Inpatient Nucle ar Event ID:[id number] Order ID: [id number] Reason for Study:Ischemic Cardiomyopathy /Assessment of Viability-Known severe LV dysfunction; Patient eligible for revascularization History / Clinical:Hypertension, CAD, PA D, A fib on Eliquis, hypothyroidism, type 2 diabetes. Procedures: PYP Cardiac Amyloidosis Race: C SUMMARY: Technique: A Tc-99m pyrophosphate study was perform ed to assess for presence and type of amyloidosis. The patient was giv en an intravenous injection of 20 mCi Tc-99m Pyrophosphate followed by a planar and SPECT image acquisition 1 hour post injection. Plan ar imaging of the heart was performed in the anterior, LIBYAN, and late ral projections followed by a cardiac SPECT acquisition. Findings: The overall quality of the study was goo d. Semi-quantitative visual assessment of myocardial count intensity was grade 1which indicates cardiac uptake less than bone. Quantita tive heart to contralateral lung ratios: 1.25 at l hour and 1.03 at 3 hours. SPECT-CT images show no significant myoc ardial tracer uptake at 1 or at 3 hours but with significant tracer i n the blood pool at [address] Findings: Coronary calcification and/or stents are present in the LAD, right and circumflex coronary arteries. Status pos t CABG. Aortic valve prosthesis. The ascending and descending aorta are normal in size. Severely calcified aortic arch and desce nding aorta. FORGE HELPER-D device leads in the RA, RV and coronary sinus.T here is no significant pericardial effusion. Limited lung field s show no significant abnormalities. Bilateral gynecomastia. Impression: The overall study results are not sugges tive for transthryetin amyloidosis (ATTR). FINDINGS: Signed 01/25/2020 07:19 PM Erlin Miller MD Performing Organization Address City/State/ZIP Code Phon e Number [facility] [address] [facility], [place] [address] Transthoracic Echocardiogram Complete, (w Contrast, Strain and 3D if needed) (01/24/2020 1:50 PM CDT) Specimen Narrative Performed At [facility] Echo cardiography Report [address], [facility] [address], [place] [address] Pat.Name: MARCELA MERCADO Pat.ID: [id number] .Date: 01/24/2020 Refer.MD: COBY MORA MD Exam Time: 1:14:00 PM Study Type:R outine Echo Height: 71in Weight: 216lb BSA: 2.18 m2 Ag e: 1935,84Y Sex: MALE BP: 122/60 HR: 80 bpm Sonogr phr: Caro [place], MARGARET, RVS Pat. Stat.:Inpatient Room: D [facility] Study Status:Final Echo Event ID:[id number] Order ID: [id number] Reason for Study:Cardiomyopathy, known, status change, re-eval History / Clinical:Atrial Fibrillation, COPD, Coronary Artery Disease Procedures: 2D Echo, Colorflow Doppler, Portable, Intravenous Lumason Contrast Race: C SUMMARY: LV EF is lower limits of normal. Estimat ed EF is 50-55%. RV systolic function is normal. Normal prosthetic aortic (TAVR) valve ve locity and gradient. LV filling pressure is elevated. Estimated PA systolic pressure is 55 mmH g, assuming a mean RAP of 5 mmHg. FINDINGS: LV: LV size is normal. LV EF is lower limits of normal. Overall wall motion is lower limi ts of normal. Estimated EF is 50-55%. RV: RV size is normal. RV systo lic function is normal. LA: LA volume is severely enlar ged. RA: RA size is normal. AO: Aortic root diameter is nor mal. RAJESH: No pericardial effusion. AV: Transcatheter bioprosthetic aortic valve. Normal prosthetic valve velocity and gradie nt. Transcatheter AV Doppler velocity index is 0.68 (n ormal >0.50). MV: Focal calcification of mitr al leaflets. Moderate mitral annular calcification. PV: No structural PV abnormalit ies noted. TV: No structural TV abnormalit ies noted. Jean: LV relaxation is impaired. L V filling pressure is elevated. Other: Estimated PA systolic pressu re is 55 mmHg, assuming a mean RAP of 5 mmHg. MEASUREMENTS: 2D Parasternal Long [place] Ao An 2.3 cm LVPWd 1.2 cm Ao Rtd 3.7 cm Index 1.7 cm/m2 LA Ds 5 cm IVSd 1.4 cm RWT 0.44 LVIDd 5.4 cm Index 2.5 cm/m2 LV Mass 291 g (122-1 74)* LVIDs 3.9 cm LVM In dex 133 g/m LV%fs 27 % LVOT 2.3 cm Left Atrium LA Ds 5 cm (2.3- 3.8)* LA Sng Plane LA Area 30 cm (8.8-23.4)* LA Vol 114 ml Index 53 ml/m2 LA LngAx 6.7 cm RA Sng Plane RA Vol 73 ml Index 34 ml/m2 RA LngAx 5.3 cm RA Area 21 cm (8.3-1 9.5)* LVOT LVOT Area 4.3 cm DOPPLER AV Forward Flow AV pkVel 174 cm/s (100-170)* AV AC/ET 0.38 AV mnVel 109 cm/s AV TVI 32 cm AV pkPG 12 mmHg AVpkAcRt 2600 cm/s AV Mean G 5.9 mmHg AV AC 111 msec (83-118) AV ET 297 msec Aortic Valve AV DI 0.68 AV Are a 2.9 cm (3-5)* LVOT Stroke Vol & Cardiac Out LVOT TVI 22 cm HR 71 bpm LVOT LVOT SV 94 ml LVOT CO 6.7 l/min SVi 43 ml/m LVOT C I 3.1 l/m/m Signed 01/24/2020 04:20 PM Tyler Anna M.D. Procedure Note Interface, Radiology Results In - 2019 4:20 PM CDT Echocardiography Report [address] [place] [address] Pat.Name: MARCELA MERCADO Pat.I D: [id number] St.Date: 01/24/2020 Refer .MD: COBY MORA MD Exam Time: 1:14:00 PM Study Type:Routine Echo Height: 71in Weigh t: 216lb BSA: 2.18 m2 Age: 11 1935,84Y Sex: MALE BP: 122/60 HR: 80 bpm Sonog rphr: MARGARET Pepe, RVS Pat. Stat.:Inpatient Room: [facility] Study Status:Final Echo Event ID:[id number] Order ID: [id number] Reason for Study:Cardiomyopathy, known, status change, re-eval History / Clinical:Atrial Fibrillation, COPD, Coronary Artery Disease Procedures: 2D Echo, Colorflow Doppler, Portable, Intravenous Lumason Contrast Race: C SUMMARY: LV EF is lower limits of normal. Estimat ed EF is 50-55%. RV systolic function is normal. Normal prosthetic aortic (TAVR) valve ve locity and gradient. LV filling pressure is elevated. Estimated PA systolic pressure is 55 mmH g, assuming a mean RAP of 5 mmHg. FINDINGS: LV: LV size is normal. LV EF is lo wer limits of normal. Overall wall motion is lower limits of normal. Estimated EF is 50-55%. RV: RV size is normal. RV systolic function is normal. LA: LA volume is severely enlarged . RA: RA size is normal. AO: Aortic root diameter is normal . RAJESH: No pericardial effusion. AV: Transcatheter bioprosthetic ao rtic valve. Normal prosthetic valve velocity and gradient. T ranscatheter AV Doppler velocity index is 0.68 (normal >0.50). MV: Focal calcification of mitral leaflets. Moderate mitral annular calcification. PV: No structural PV abnormalities noted. TV: No structural TV abnormalities noted. Jean: LV relaxation is impaired. LV filling pressure is elevated. Other: Estimated PA systolic pressure is 55 mmHg, assuming a mean RAP of 5 mmHg. MEASUREMENTS: 2D Parasternal Long [place] Ao An 2.3 cm LVPW d 1.2 cm Ao Rtd 3.7 cm Inde x 1.7 cm/m2 LA Ds 5 cm IVSd 1.4 cm RWT 0.44 LVIDd 5.4 cm Inde x 2.5 cm/m2 LV Mass 291 g (122-174)* LVIDs 3.9 cm LVM Index 133 g/m LV%fs 27 % LVOT 2.3 cm Left Atrium LA Ds 5 cm (2.3-3.8)* LA Sng Plane LA Area 30 cm (8.8-23.4)* LA Vol 114 ml Index 53 ml/m2 LA LngAx 6.7 cm RA Sng Plane RA Vol 73 ml Inde x 34 ml/m2 RA LngAx 5.3 cm RA Area 21 cm (8.3-19.5)* LVOT LVOT Area 4.3 cm DOPPLER AV Forward Flow AV pkVel 174 cm/s (100-170)* AV AC/ET 0.38 AV mnVel 109 cm/s AV T 32 cm AV pkPG 12 mmHg AVpk AcRt 2600 cm/s AV Mean G 5.9 mmHg AV A C 111 msec (83-118) AV ET 297 msec Aortic Valve AV DI 0.68 AV A morelia 2.9 cm (3-5)* LVOT Stroke Vol & Cardiac Out LVOT TVI 22 cm HR 71 bpm LVOT LVOT SV 94 ml LVOT CO 6.7 l/min SVi 43 ml/m LVO T CI 3.1 l/m/m Signed 01/24/2020 04:20 PM Tyler Anna M.D. Performing Organization Address City/State/ZIP Code Phon e Number [facility] [address] [place] [address] US Renal (01/21/2020 3:50 PM CDT) Specimen Narrative Performed At EXAMINATION: US RENAL [facility] CLINICAL HISTORY: Renal failure acute (kidney inju ry). Suspected COVID-19 TECHNIQUE: Sonographic imaging over the kidneys was performed. COMPARISON: June 10, 2012 ultrasoun d. November 04, 2014 CT.. FINDINGS: 1.The right kidney measures 13.0 cm in long axis. The kidney has increased echogenicity. Vascular flow is unremarkable. There is no evidence of hydronephrosis, perinephric fluid, solid mass, or calculus. There is a 3.[address] in the interpolar right kidney 2.The left kidney measures 11.3 cm in long axis. The k idney has increased echogenicity. Vascular flow is unremarkable. There is no evidence of hydronephrosis, perinephric fluid, solid mass, or calculus. 3.The bladder is incompletely distended but appears gr ossly unremarkable. IMPRESSION: Increased renal cortical echogenicity, which can be se en in medical renal disease. No acute renal abnormalit ies are identified. [id number] Procedure Note Interface, Radiology Results Incoming - 01/21/2020 4:47 PM CDT EXAMINATION: US RENAL CLINICAL HISTORY: Renal failure acute (kidney injury). Suspected COVID-19 TECHNIQUE: Sonographic imaging over the kidneys was performed. COMPARISON: June 10, 2012 ultrasound . November 04, 2014 CT.. FINDINGS: 1.The right kidney measures 13.0 cm in l yeny axis. The kidney has increased echogenicity. Vascular flow is unremarkable. There is no evidence of hydronephrosis, perinephric fluid, solid mass, or calculus. There is a 3.9 cm long axis cyst in the interpolar right kidney 2.The left kidney measures 11.3 cm in lo ng axis. The kidney has increased echogenicity. Vascular flow is unremarkable. There is no evidence of hydronephrosis, perinephric fluid, solid mass, or calculus. 3.The bladder is incompletely distended but appears grossly unremarkable. IMPRESSION: Increased renal cortical echogenicity, w hich can be seen in medical renal disease. No acute renal abnormalities are identified. [id number] Performing Organization Address City/State/ZIP Code Phon e Number [facility] [address] [place] [address] [place] Lung Perfusion Imaging (01/21/2020 3:03 PM CDT) Specimen Narrative Performed At PROCEDURE: NM LUNG PERFUSION IMAGING [facility] INDICATION: PE suspected intermediate prob positive D-dimer. COMPARISON: CT chest 01/20/2020. TECHNIQUE: No ventilation imaging was performed due to contamination concerns regarding COVID-19. The patient was injected with 5 mCi of [id number] intravenously, followed by imaging of the lungs in 8 projections. FINDINGS: Mildly heterogeneous perfusion bilaterally. No well-defined segmental defects. IMPRESSION: Low probability for pulmonary embolism. [id number] Dictated and approved by residential support worker/fellow: Zachary Hoyos M.D. I, Alejandro Ornelas MD, personally reviewed the images and resident's/fellow's findings and agree with the final report. Procedure Note [facility], Radiology Results Incoming - 01/21/2020 4:40 PM CDT PROCEDURE: NM LUNG PERFUSION IMAGING INDICATION: PE suspected intermediate p irving positive D-dimer. COMPARISON: CT chest 01/20/2020. TECHNIQUE: No ventilation imaging was p erformed due to contamination concerns regarding COVID-19. The patient was injected with 5 mCi of [id number] intravenously, followed by imaging of the lungs in 8 projections. FINDINGS: Mildly heterogeneous perfusion bilaterally. No well-defined segmental defects. IMPRESSION: Low probability for pulmonary embolism. [id number] Dictated and approved by radiology resid ent/fellow: Fani Hoyos M.D. I, Alejandro Ornelas MD, personally review ed the images and resident's/fellow's findings and agree with the final report. Performing Organization Address City/State/ZIP Code Phon e Number [facility] [address] duplex venous lower extremity (01/21/2020 2:33 AM CDT) Specimen Narrative Performed At [facility] Vascular U ltrasound Laboratory Lower Extr emity Venous Report [address] [facility], [address], [place] [address] Pat.Name: MARCELA MERCADO Pat.ID: [id number] .Date: 01/21/2020 Refer.MD: PHYSICIAN, EMERGENCY, MD Exam Time: 1:49:00 AM Study Type:L E Venous Age: 11 1935,84Y Sex: MALE Sonogrphr: Avery Jackman BA, BS, RDMS, RVT Pat. Stat.:Inpatient Room: [address] V ol: JENNI, CPT - 4: [address] Echo Mayelin nt ID:[id number] Order ID: [id number] Reason for Study:Pain and swellling. Lila garsia has history of hypertension, CAD, atrial fibrillation, DM2 Procedures: Colorflow, Grayscale/2D, Pul sed wave Doppler Race: C SUMMARY: Deep Veins Superficial Veins * Normal Reflux Criteria: < 1 second * Normal Reflux Criteria: < 0.5 seconds * Abnormal Reflux Criteria: > or equal to 1 second * Abnormal Reflux Criteria: > or equal to 0.5 seconds DUPLEX SCAN OBSERVATIONS Deep Veins Superficial Veins Right Left Right Left GSV (prox) Normal Normal CFV Normal Normal (above knee) Femoral Normal Normal GSV (dist) Normal Normal Profunda Normal Normal (below knee) Popliteal Normal Normal PT (prox) Normal Normal SSV Normal Not Visualized PT (dist) Normal Normal Peroneal Normal Normal Gastrocs Normal Normal RIGHT: There is normal compressibility with no evidence of echogenic material noted within the lumen of the v isualized veins.Colorflow and Doppler signals are normal. LEFT: There is normal compressibil ity with no evidence of echogenic material noted within the lume n of the visualized veins.Colorflow and Doppler signals are normal. PRELIMINARY FINDINGS: 1. No evidence of venous thrombosis note d in the visualized veins, bilaterally. PHYSICIAN INTERPRETATION: Venous examination of the both lower ext remities demonstrated no evidence of venous thrombosis in the vis ualized veins. Normal compressibility and augmentation of all veins visualized. Volume overload. FINDINGS: Signed 01/21/2020 04:27 AM Chucky Swartz MD, RPVI Procedure Note Interface, Radiology Results In - 2019 4:27 AM CDT Vascular Ultrasound Laboratory Lower Extremity Veno us Report [address] [place] [address] Pat.Name: MARCELA MERCADO Pat.I D: [id number] .Date: 01/21/2020 Refer .MD: PHYSICIAN, EMERGENCY, MD Exam Time: 1:49:00 AM Study Type:LE Venous Age: 11 1935,84Y Sex: MALE Sonogrphr: Avery Jackman, BA, BS, RDMS, RVT Pat. Stat.:Inpatient Room: [address] Vol: JENNI, CPT - 4: [address] Echo Event ID:[id number] Order ID: [id number] Reason for Study:Pain and swellling. Lila walkermaurilio has history of hypertension, CAD, atrial fibrillation, DM2 Procedures: Colorflow, Grayscale/2D, Pul sed wave Doppler Race: C SUMMARY: Deep Veins Superfi cial Veins * Normal Reflux Criteria: < 1 second * Normal Reflux Criteria: < 0.5 seconds * Abnormal Reflux Criteria: > or equal to 1 second * Abnormal Reflux Criteria: > or equal to 0.5 seconds DUPLEX SCAN OBSERVATIONS Deep Veins Superficial Veins Right Left Right Left GSV (prox) Normal Normal CFV Normal Normal (above knee) Femoral Normal Normal GSV (dist) Normal Normal Profunda Normal Normal (below knee) Popliteal Normal Normal PT (prox) Normal Normal SSV Normal Not Visualized PT (dist) Normal Normal Peroneal Normal Normal Gastrocs Normal Normal RIGHT: There is normal compressibility with no evidence of echogenic material noted within the lumen of the v isualized veins.Colorflow and Doppler signals are normal. LEFT: There is normal compressibilit y with no evidence of echogenic material noted within the lume n of the visualized veins.Colorflow and Doppler signals are normal. PRELIMINARY FINDINGS: 1. No evidence of venous thrombosis note d in the visualized veins, bilaterally. PHYSICIAN INTERPRETATION: Venous examination of the both lower ext remities demonstrated no evidence of venous thrombosis in the vis ualized veins. Normal compressibility and augmentation of all veins visualized. Volume overload. FINDINGS: Signed 01/21/2020 04:27 AM Chucky Swartz MD, RPVI Performing Organization Address City/State/ZIP Code [facility] e Number [facility] [address] [place] [address] D-dimer (01/21/2020 12:40 AM CDT)Only the most recent of2 resultswithin the time period is included. D-dimer 0.58 (H) 0.00 - 0.40 [place] DENOMINATIONAL Comment: ug/mL [facility] Units are ug/ml Fibrinogen Equivalent Unit. When combined with low clinical probability, D-dimer r esults of less than 0.5 ug/ml FEU have a good negative pred ictive value in excluding PE or DVT. For D-dimer results greater than 0.5 ug/ml FEU [facility] testing is indicated if PE or DVT is suspected clini lowell. Elevated D-dimer results have been reported in DVT, PE , and DIC cases and may indicate the presence of a clot. D-dimer results may be elevated due to old age, pregna ncy, inflammatory diseases, trauma, post-operative states, sepsis, and malignancies. Specimen Blood Performing Organization Address City/[facility] Phon e Number [facility] DE[facility]MENT OF [facility] AND [address] [place] [address] [address] Beta hydroxybutyrate (01/20/2020 11:59 PM CDT) Pathologist [facility] Beta hydroxybutyrate 0.10 0.02 - 0.27 [facility] mmol/L [facility] Specimen Serum Performing Organization Address [facility] Phon e Number [facility] DE[facility]MENT OF PATHOLOGY AND [address] [place] [address] [address] Arterial blood gas (01/20/2020 9:00 PM CDT) Pathologist [facility] pH, arterial 7.42 7.35 - 7.45 [facility] pCO2, arterial 31 (L) 35 - 45 mmHg [facility] pO2, arterial 144 (H) 80 - 90 mmHg [facility] Bicarbonate, 19.7 (L) 21.0 - 28.0 [facility] mmol/L HOSPITAL Base excess, -4 (L) -2 - 2 mEq/L [facility] O2 saturation, 99 95 - 100 % [facility] Specimen Blood Performing Organization Address [facility] Phon e Number [facility] DE[facility]MENT OF [facility]OLOGY AND [address] [place] [address] [address] CRITICAL CARE (01/20/2020 7:48 PM CDT) Narrative Performed At Alejandro Paul MD 01/21/2020 12: 12 AM Critical Care Performed by: Alejandro Paul MD Authorized by: Alejandro Paul MD Critical care provider statement: Critical care time (minutes): 35 Critical care time was exclusive of: Separately b illable procedures and treating other patients Critical care was necessary to treat or prevent imminent or life-threatening deterioration of the following condit ions: Respiratory failure Critical care was time spent personal ly by me on the following activities: Blood draw for specimens, development of treatment plan with patient or surrogate, discussions with c onsultants, discussions with primary provider, evaluation of patient' s response to treatment, examination of patient, ordering and per forming treatments and interventions, ordering and review of la boratory studies, review of old charts, re-evaluation of patient's condition, pulse ox imetry and ordering and review of radiographic studies Prothrombin time with INR (01/20/2020 7:45 PM CDT) Prothrombin time 13.8 11.5 - 14.5 [facility] INR 1.1 [place] Comment: DENOMINATIONAL [facility] International Normalized Ratio (INR) is a [facility] monitoring tool for patients who are stable on oral anticoagulant therapy. An INR of 2.0-3.0 is suggested for deep vein thrombosis/pulmonary embolism. Specimen Blood Performing Organization Address City/State/[facility] Code Phon e Number [facility] DEPARTMENT OF PATHOLOGY AND [address] [place], [place] [address] GENOMIC MEDICINE [address] [address] Airway (12/17/2019 2:25 PM CDT) Narrative Performed At Rasheeda Price CRNA 12/17/2019 2: 25 PM Airway Date/Time: 12/17/2019 2:15 PM Performed by: Rasheeda Price CRNA Authorized by: Yosi Bal MD Location: OR Urgency: Elective Difficult Airway: No Anesthesiologist: Yosi Bal MD Resident/MOBILE PHONE SALESPERSON/AA: Rasheeda Price CRNA Performed by: resident/IZZY/AA Preoxygenated with 100% O2: Yes C-spine Precautions Maintained Throughou t: Yes Mask Ventilation: Not attempted Final Airway Type: Supraglottic airway Final LMA: I-Gel LMA Size: 5 Number of Attempts at Approach: 1 labor service representative procedure (11/18/2019 10:49 AM CDT) Specimen Narrative Performed At This result has an attachment that is no t available. CARDIAC CATHETERIZATION PROCEDURE REPORT SYNG FINDINGS HEMODYNAMIC DATA: 1. Right atrial pressure is 11mmHg. 2. Right Ventricular Pressure 50/10/11mmHg. 3. PA Pressure 50/28, mean 34mmHg. 4. Pulmonary capillary wedge pressure 28 mmHg with v w ave of 36 6. By Shu, CO: 4.46 l/min, CI 2.01 l/min/sqm 7. By thermodilution, CO 3.33 l/min, CI 1.50 l/min/sqm Performing Organization Address City/[facility]/ZIP Code Phon e Number [facility] [address] [place] [address], Bilirubin direct (09/07/2019 4:00 AM CLINICAL ASSESSMENT MANAGER) Pathologist Sig nature Bilirubin direct <0.2 0.0 - 0.3 mg/dL [facility] Specimen Plasma specimen Performing Organization Address [facility] Code Phon e Number [facility] DEPARTMENT OF [facility]OLOG[facility] AND [address] [place] [address] 0 [place] [address] Nm myocardial perfusion imaging w tl-201 viability (09/04/2019 7:58 AM CLINICAL ASSESSMENT MANAGER) Specimen Narrative Performed At This result has an attachment that is no t available. [facility] Nuclear Cardiology and Card iac CT [address] [place] [address] Myocardial Perfusion Imagin g Report Stress ECG tracings are available in MUSE, EP IC and [employer] All ECG interpretations are included in this report Pat.Name: MARCELA MERCADO at.ID: [id number] St.Date: 09/04/2019 Refer.MD: SEAN RICO MD Exam Time: 7:41:00 AM Study Type:Myocardial Perfusion Imaging Height: 71in BSA: 2.19 m2 Age: 11 1935,84Y Sex: MALE Nuclear Tech:JASON Rose [facility] Pat. Stat.:Inpatient Tape Vol: 30.54, Nuclear Event ID:[id number] Order ID: [id number] Procedures: Viability SUMMARY: SCINTIGRAPHIC RESULTS Perfusion Defect Size (% LV) 15% Scar Left Ventricular Perfusion Results There is a mild basal and mid lateral perfusion defect during stress which remains unchanged with redistribution imaging. Gated SPECT Results The rest left ventricular ejection fraction is 47% wit h hypokinesis of all hypoperfused bliss. Left ventricular end-diastol ic volume is 118 ml; end-systolic volume is 62 ml. The left ventric le is of normal size at stress and rest. The right ventricle is of n ormal size with normal wall motion. Conclusion Abnormal rest thallium-201 myocardial viability study compatible with scar in the circumflex coronary artery vascular territ ory. The resting LVEF is mildly depressed. All coronary artery territor ies are viable by counts Study Quality/Artifacts The study quality is good. Comparison to Previous Study None available. FINDINGS: Signed 09/04/2019 12:11 PM Manuel Delaney MD Procedure Note Interface, Radiology Results In - 2019 12:12 PM [facility] Nuclear Cardiology and Cardiac CT [address] [place] [address] Myocardial Perfusion I maging Report Stress ECG tracings are available in MUSE, [employer] and [employer] All ECG interpretations are in cluded in this report Pat.Name: MARCELA MERCADO Pat.I D: [id number] .Date: 09/04/2019 Refer .MD: SEAN RICO MD Exam Time: 7:41:00 AM Study Type:Myocardial Perfusion Imaging Height: 71in BSA: 2.19 m2 Age: 11 1935,84Y Sex: MALE Nuclear Tech:JASON Rose, [facility] Pat. Stat.:Inpatient Tape Vol: 30.54, Nucle ar Event ID:[id number] Order ID: [id number] Procedures: Viability SUMMARY: SCINTIGRAPHIC RESULTS Perfusion Defect Size (% LV) 15% Scar Left Ventricular Perfusion Results There is a mild basal and mid lateral pe rfusion defect during stress which remains unchanged with redistribut ion imaging. Gated SPECT Results The rest left ventricular ejection fract ion is 47% with hypokinesis of all hypoperfused bliss. Left ventricula r end-diastolic volume is 118 ml; end-systolic volume is 62 ml. The left ventricle is of normal size at stress and rest. The right vent ricle is of normal size with normal wall motion. Conclusion Abnormal rest thallium-201 myocardial vi ability study compatible with scar in the circumflex coronary artery v ascular territory. The resting LVEF is mildly depressed. All coronary a rtery territories are viable by counts Study Quality/Artifacts The study quality is good. Comparison to Previous Study None available. FINDINGS: Signed 09/04/2019 12:11 PM Manuel Delaney MD Performing Organization Address [facility] Code [facility] e Number [facility] [address] [place] [address] Hepatic function panel (09/04/2019 4:00 AM CLINICAL ASSESSMENT MANAGER) Albumin 3.5 3.5 - 5.0 g/dL [facility] Total bilirubin 0.5 0.0 - 1.2 [facility] mg/dL [facility] Bilirubin direct <0.2 0.0 - 0.3 [facility] mg/dL HOSPITAL Alkaline phosphatase 69 40 - 129 U/L [facility] Protein 6.9 6.3 - 8.3 g/dL [facility] Comment: HOSPITAL Ryqlftx2508.6-7.0 g/dL 1 spxe5791.4-7.6 g/dL 7 months-6zket484.1-7.3 g/dL 1-2 cwguu012.6-7.5 g/dL >3 wjejz733.0-8.0 g/dL 18-8946396.3-8.3 g/dL ALT 19 5 - 50 U/L [facility] AST 20 10 - 50 U/L [facility] Specimen Plasma specimen Performing Organization Address City/State/ZIP Code Phon e Number [facility] DEPARTMENT OF PATHOLOGY AND [address] [place], [place] [address] GENOMIC MEDICINE [facility] [address] [place] [address] Echocardiogram complete w contrast and 3D if needed (09/02/2019 10:26 PM CLINICAL ASSESSMENT MANAGER) Specimen Narrative Performed At [facility] Echo cardiography Report [address] [facility], [address], [place] [address] Pat.Name: MARCELA MERCADO Pat.ID: [id number] .Date: 09/02/2019 Refer.MD: ALEJANDRO KRUSE MD Exam Time: 9:21:00 PM Study Type:R outine Echo Height: 71in Weight: 227lb BSA: 2.23 m2 Ag e: 1935,84Y Sex: MALE BP: 164/76 HR: 79 bpm Sonogr phr: Marisa Du RDCS Pat. Stat.:Inpatient Room: [address] Study Status:Final Echo Event ID:[id number] Order ID: [id number] Reason for Study:chest pain History / Clinical:Atrial Fibrillation, COPD, Coronary Artery Disease Procedures: 2D Echo, Colorflow Doppler, Portable, Intravenous Definity Contrast Race: C SUMMARY: Estimated EF is 45-49%. Overall wall mot ion is hypokinetic. RV systolic function is normal. Transcatheter bioprosthetic aortic valve . Normal prosthetic valve velocity and gradient. Impaired relaxation with restrictive LV filling pressures. Estimated PA systolic pressure is 67-70 mmHg assuming and RAP of 15-20 mmHg. FINDINGS: LV: LV size is normal. LV EF is mildly depressed. Overall wall motion is hypokinetic. Estimated EF is 45-49%. RV: RV size is normal. A pacema ker wire is seen in the RV. RV systolic function is no rmal. LA: LA volume is mildly enlarge d. RA: RA volume is mildly enlarge d. A pacemaker wire is seen. AO: Aortic root diameter is nor mal. RAJESH: There is an anterior space c onsistent with a prominent epicardial fat pad. AV: Transcatheter bioprosthetic aortic valve. A trace of aortic regurgitation. Normal p rosthetic valve velocity and gradient. Transcatheter AV Doppler ve locity index is 0.88 (normal >0.50). MV: Moderate thickening of mitr al leaflets. Focal calcification of mitral leaflets. Mil d mitral regurgitation. PV: Pulmonic valve not well see n. TV: No structural TV abnormalit ies noted. Mild tricuspid regurgitation Jean: Diastolic dysfunction Grade III (Severe): Impaired relaxation with restric tive LV filling pressures. Other: Estimated PA systolic pressu re is 67-70 mmHg assuming and RAP of 15-20 mmHg. MEASUREMENTS: 2D Parasternal Long [place] Ao An 2 cm LVPWd 0.74 cm Ao Rtd 3.7 cm Index 1.6 cm/m2 LA Ds 5.2 cm IVSd 0.73 cm RWT 0.3 LVIDd 4.9 cm Index 2.2 cm/m2 LV Mass 118 g (122-1 74) LVIDs 3.6 cm LVM In dex 53 g/m LV%fs 27 % LVOT 2.1 cm LA Sng Plane LA Area 26 cm (8.8-23.4) LA Vol 87 ml Index 39 ml/m2 LA LngAx 6.3 cm RA Sng Plane RA Vol 84 ml Index 38 ml/m2 RA LngAx 5.7 cm RA Area 24 cm (8.3-1 9.5) LVOT LVOT Area 3.4 cm DOPPLER AV Forward Flow AV pkVel 142 cm/s (100-170) AV AC/ET 0.18 AV mnVel 100 cm/s AV TVI 26 cm AV pkPG 8 mmHg AVpkAcR t 32359 cm/s AV Mean G 4.7 mmHg AV AC 46 msec (83-118) AV ET 260 msec Aortic Valve AV DI 0.88 AV Are a 3 cm (3-5) LVOT Stroke Vol LVOT TVI 23 cm HR 69 bpm LVOT LVOT SV 80 ml LVOT CO 5.5 l/min SVi 36 ml/m LVOT C I 2.5 l/m/m MV E/A Ratio MV pkE 112 cm/s (60-130) MV E/A 2.9 MV pkA 39 cm/s TV Pressure Gradient TV PkVel 409 cm/s TV PG 67 mmHg Signed 09/03/2019 05:49 PM Brown Hicks M.D. Procedure Note Interface, Radiology Results In - 2019 5:50 PM CLINICAL ASSESSMENT MANAGER Echocardiography Report [address] [place] [address] Pat.Name: MARCELA MERCADO Pat.I D: [id number] .Date: 09/02/2019 Refer .MD: ALEJANDRO KRUSE MD Exam Time: 9:21:00 PM Study Type:Routine Echo Height: 71in Weigh t: 227lb BSA: 2.23 m2 Age: 11 1935,84Y Sex: MALE BP: 164/76 HR: 79 bpm Sonog rphr: Marisa Du RDCS Pat. Stat.:Inpatient Room: [address] Study Status:Final Echo Event ID:[id number] Order ID: [id number] Reason for Study:chest pain History / Clinical:Atrial Fibrillation, COPD, Coronary Artery Disease Procedures: 2D Echo, Colorflow Doppler, Portable, Intravenous Definity Contrast Race: C SUMMARY: Estimated EF is 45-49%. Overall wall mot ion is hypokinetic. RV systolic function is normal. Transcatheter bioprosthetic aortic valve . Normal prosthetic valve velocity and gradient. Impaired relaxation with restrictive LV filling pressures. Estimated PA systolic pressure is 67-70 mmHg assuming and RAP of 15-20 mmHg. FINDINGS: LV: LV size is normal. LV EF is mi ldly depressed. Overall wall motion is hypokinetic. Estima julien EF is 45-49%. RV: RV size is normal. A pacemaker wire is seen in the RV. RV systolic function is normal. LA: LA volume is mildly enlarged. RA: RA volume is mildly enlarged. A pacemaker wire is seen. AO: Aortic root diameter is normal . RAJESH: There is an anterior space con sistent with a prominent epicardial fat pad. AV: Transcatheter bioprosthetic ao rtic valve. A trace of aortic regurgitation. Normal prosthe tic valve velocity and gradient. Transcatheter AV Do ppler velocity index is 0.88 (normal >0.50). MV: Moderate thickening of mitral leaflets. Focal calcification of mitral leaflets. Mild mitr al regurgitation. PV: Pulmonic valve not well seen. TV: No structural TV abnormalities noted. Mild tricuspid regurgitation Jean: Diastolic dysfunction Grade II I (Severe): Impaired relaxation with restrictive L V filling pressures. Other: Estimated PA systolic pressure is 67-70 mmHg assuming and RAP of 15-20 mmHg. MEASUREMENTS: 2D Parasternal Long [place] Ao An 2 cm LVPW d 0.74 cm Ao Rtd 3.7 cm Inde x 1.6 cm/m2 LA Ds 5.2 cm IVSd 0.73 cm RWT 0.3 LVIDd 4.9 cm Inde x 2.2 cm/m2 LV Mass 118 g (122-174) LVIDs 3.6 cm LVM Index 53 g/m LV%fs 27 % LVOT 2.1 cm LA Sng Plane LA Area 26 cm (8.8-23.4) L A Vol 87 ml Index 39 ml/m2 LA LngAx 6.3 cm RA Sng Plane RA Vol 84 ml Inde x 38 ml/m2 RA LngAx 5.7 cm RA Area 24 cm (8.3-19.5) LVOT LVOT Area 3.4 cm DOPPLER AV Forward Flow AV pkVel 142 cm/s (100-170) AV AC/ET 0.18 AV mnVel 100 cm/s AV T 26 cm AV pkPG 8 mmHg [place]pk [place]Rt 89183 cm/s AV Mean G 4.7 mmHg AV A C 46 msec (83-118) AV ET 260 msec Aortic Valve AV DI 0.88 AV A morelia 3 cm (3-5) LVOT Stroke Vol LVOT TVI 23 cm HR 69 bpm LVOT LVOT SV 80 ml LVOT CO 5.5 l/min SVi 36 ml/m LVO T CI 2.5 l/m/m MV E/A Ratio MV pkE 112 cm/s (60-130) MV E /A 2.9 MV pkA 39 cm/s TV Pressure Gradient TV PkVel 409 cm/s TV P G 67 mmHg Signed 09/03/2019 05:49 PM Brown Hicks M.D. Performing Organization Address City/State/[facility] Code Phon e Number [facility] [address] [place] [address] labor service representative procedure (09/02/2019 4:56 PM CLINICAL ASSESSMENT MANAGER) Specimen Narrative Performed At This result has an attachment that is no t available. CARDIAC CATHETERIZATION PROCEDURE REPORT [employer] website HEMODYNAMIC DATA: 1. Right atrial pressure is 9/12/ 10mmHg. 2. Right Ventricular Pressure 48/6/10 mmHg. 3. PA Pressure 48 /29, mean 34mmHg. 4. Pulmonary capillary wedge pressure 20/23/21mmHg. LV 152/13/21 5. By Shu, CO: 3.32 l/min, CI 1.49 L/min/sqm 6. TPG 13 mmHg, DPG 8 FINDINGS: LM: Large vessel with distal 30% lesion. LAD: Completely occluded at the ostium. Ramus Intermedius: Large vessel with proximal prior st ent with ISR 40% LCx: Small vessel with mild diffuse disease RCA: 100% occlusion MERCER-LAD: Patent SVG- rPDA: Patent SVG-D1: Diffusely disease with 40-50% lesion in proxim al and significant disease around 80% at the anastomosis with the D1. D1 is a very small vessel. SVG-OM: occluded Collaterals: PDA - LCx system. LVEDP: 19 mmHg CONCLUSION: - Moderately increased filling with decreased cardiac output. Moderate pulmonary hypertension most likely Type II but with a precapillary component. - SVG-OM is most likely newly occluded. - SVG-D1 significant lesion at the anastomosis with a very small D1 vessel. RECOMMENDATIONS: 1. Intravenous diuresis for volume optimization 2. Repeat Echo and Nuclear to decide on further interv entions PROCEDURE DETAILS: ATTENDING: Dr. Rico EQUIPMENT/ANTICOAGULATION: Right Common Femoral Artery 4Fr Sheath JL4 Catheter JR4 Catheter Thrmodltn 4lumen 7fr 110cm [place]-Art Std Multipurpose catheter PROCEDURES PERFORMED: 1. Right Common Femoral Artery Puncture 2. Right Common Femoral Vein Puncture 3. Right Heart Catheterization 4. Left heart catheterization A time-out was completed verifying correct patient, pr ocedure, site, positioning, and special equipment if applicable. The patient was placed in a supine position. The right groin was prepped and drapped. Systemic sedation was given. Lidocaine was used as local anesth etic. Left heart catherization was performed using a 4Fr art erial sheath. The right femoral artery was located, skin was infiltrated was lidocaine. The artery was accessed using the Seldinger technique with a micropuncture needle. The micropuncture sheath was then exchanged fo r a 4Fr sheath. Then JL4 and JR4 catheters were advanced over a wire and se lective coronary angiography was performed, standard views were obtaine d. A MPA2 was used to engage the venous grafts and MERCER. A pigtail catheter was then used to measure LVEDP. A micropuncture needle was used to access the right co mmon femoral vein. A 4Fr Sheath was placed in the right femoral vein. A tri ple lumen continuous cardiac output [place]-Art catheter was brought onto the field and each line flushed with sterile saline and the SVO2 sensor calibr ated. The catheter was introduced into the sheath and position of balloon was confirmed to be distal to the sheath prior to inflation. The balloon w as then inflated and the catheter was advanced through the IVC, right atriu m then right ventricle and into the pulmonary artery until a wedge position pressure tracing was obtained. The balloon was then deflated an d verification of return of a pulmonary artery pressure tracing made. Du ring the floating procedure to position the catheter the position of the catheter tip was determined by continuous pressure monitoring via the d istal port. Right atrial, right ventricular, pulmonary arterial and pulm onary capillary pressure tracings were obtained. Measurements were obt ained for calculation of a SHU cardiac output. There were no procedural complications. The patient to lerated the procedure well. HEMOSTASIS: Manual Pressure ANESTHESIA: - Moderate sedation was administered with physician garcia pervision and CO2 monitoring beginning at 15:50 ( Time) for a to sonal period of 66 minutes. ATTENDING: I was scrubbed and present for the entire procedure an d agree with the note as documented above. Performing Organization Address City/[facility] Phon e Number [facility] [address] [place] [address], POC panel (09/02/2019 1:51 PM CLINICAL ASSESSMENT MANAGER) POC sodium 137 135 - 148 [facility] mmol/L [facility] POC potassium 5.3 (H) 3.5 - 5.0 [facility] mmol/L [facility] POC chloride 102 99 - 109 [facility] mmol/L [facility] POC CO2 28 24 - 31 mmol/L [facility] POC glucose 208 (H) 65 - 99 mg/dL [facility] POC BUN 51 (H) 8 - 24 mg/dL [facility] POC creatinine 2.2 (H) 0.7 - 1.2 [facility] mg/dl [facility] POC hematocrit 43 41 - 51 % [facility] POC anion gap 14 8 - 20 mmol/L [facility] Comment: HOSPITAL Binder Chainstitch Name: Jarred Boyer Device ID: [id number] Specimen Performing Organization Address City/[facility] Phon e Number [facility] DEPARTMENT OF PATHOLOGY AND [address] [place] [phone] GENOMIC MEDIC[address] [address] ECG Pre/Post Op (09/02/2019 1:02 PM CLINICAL ASSESSMENT MANAGER) Pathologist Sig nature Ventricular rate 70 [facility] Atrial rate 78 [facility] QRSD interval 180 [facility] QT interval 524 [facility] QTC interval 565 [facility] QRS axis 1 261 [facility] T wave axis 77 [facility] EKG impression Ventricular-paced rhythm-Biv entricular pacemaker detected- Abnormal ECG-In automated comparison with ECG of 27-JUL-2019 13:33,-premature ventricular complexes are no longer present- Specimen Narrative Performed At This result has an attachment that is no t available. 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 2.Normal heart size. Thoracic aortic arch is atheroscl erotic. Left chest AICD. 3.Poststernotomy. Degenerative changes i n the spine. [id number] Procedure Note Hm Interface, Radiology Results Incoming - 07/27/2019 4:34 PM CLINICAL ASSESSMENT MANAGER EXAMINATION: XR CHEST 2 VW CLINICAL HISTORY: Z95.1 Presence of aor tocoronary bypass graft, I35.9 Nonrheumatic aortic valve disorder unspecified, cabg aortic valve COMPARISON: 12/05/2017 IMPRESSION: 1.Lungs are clear. 2.Normal heart size. Thoracic aortic arc h is atherosclerotic. Left chest AICD. 3.Poststernotomy. Degenerative changes i n the spine. [id number] Performing Organization Address [facility] Phon e Number [facility] [address] [place] [address] after 05/21/2019 Insurance Payer Benefit Plan / Subscriber ID Effective Dates Phone Addre ss Type Group MEDICARE MEDICARE PART A [id number] 2001-[place] Medicare AND B t AARP AARP SUPPLEMENT [id number] 2017-Rachid Commercial t (Work) Advance Directives For more information, please contact: [phone] Type Date Recorded Patient Assistant Loan Processor Explanati on Advance Directives, Living Will 05/08/2020 2:07 PM and Medical Power of Powerbuilder
--- OUTSIDE RECORDS SUMMARY | 2020-05-21 15:33 | XMS REPORT | Clinical Summary ---
:1935 Author Organization [facility] Address [address] [place] [address] Care Team Providers Name Role Phone Unavailable Primary Care Provider Unavailable Allergies Not on File Medications Medication Sig Dispensed Refills Start Date End Date Status calcitriol (ROCALTROL) TAKE ONE (1) 90 capsule 3 11/06/2017 Active 0.25 MCG capsule CAPSULE(S) BY MOUTH ONCE A DAY. ranitidine (ZANTAC) TAKE ONE (1) 90 tablet 3 05/07/2018 Active 150 MG tablet TABLET(S) BY MOUTH ONCE A DAY. Active Problems Not on file Social History Tobacco Use Types Packs/Day Years Used Date Never Assessed Sex Assigned at Date Recorded Not on file Last Filed Vital Signs Not on file Plan of Treatment Not on file Results Not on fileafter 05/21/2019 Insurance Payer Benefit Plan / Subscriber ID Effective Dates Phone Addre ss Type Group BLUE BCBS PPO POS [id number] 2015-[place]rica [id number] PPO CROSS/BLUE EPO CHOICE nt 2 [facility] [address]
--- OUTSIDE RECORDS SUMMARY | 2020-05-21 15:36 | XMS REPORT | Continuity of Care Document ---
:1935 Author Organization [facility] t Address [address] [place] [address] Care Team Providers Name Role Phone Kush Luz MD Primary Care Physician Lizzy BARKER Attending Clinician Unavailable Isa Yates MD Attending Clinician Iron FELIX Attending Clinician Keenan FELIX Attending Clinician Loly RN Attending Clinician Unavailable Shy FELIX Attending Clinician Judith Doan MD Attending Clinician Provider Attending Clinician Unavailable Jessika BARKER Attending Clinician Unavailable Tyrell Godinez MA Attending Clinician Unavailable Kush Luz MD Attending Clinician Isa Rico MD Attending Clinician Newton FELIX Attending Clinician Jacqueline MENDEZ Attending Clinician Norm RN Attending Clinician Unavailable Renu MENDEZ Attending Clinician John BARKER Attending Clinician Unavailable Beverly FELIX Attending Clinician Araceli Brewster MD Attending Clinician Yolanda Sawant MD Attending Clinician Reji BARKER Attending Clinician Unavailable Owen Storm MD Attending Clinician Brown Bal MD Attending Clinician Branden Attending Clinician Kelvin FELIX Attending Clinician Rodrigue BERNARD Attending Clinician Unavailable Harsha VALIENTE, [place] Attending Clinician Richard Kruse MD Attending Clinician Souleymane BERNARD Attending Clinician Unavailable Francisco BERNARD Attending Clinician Unavailable Toya BARKER Attending Clinician Unavailable IRON Admitting Clinician Unavailable NE[place]ON Admitting Clinician Unavailable FRANKI Admitting Clinician Unavailable ROBERT Admitting Clinician Unavailable BRITTANY Admitting Clinician Unavailable KELVIN Admitting Clinician Unavailable AIXA Admitting Clinician Unavailable Payers Payer Name Policy Type Policy Effective Date Expiration Date Sour ce Number MEDICAREMEDICARE PART [id number] 2001 Jorge hellen A AND 00:00:00 [facility] [id number] 2001 [place] [id number] 2017 [place] [id number] 00:00:00 Met iban 2017-PresentComm ercial Problems Condition Condition Condition Status Onset Resolution Last Treating Co mments Source Name Details Category Date Date Treatment Clinician Date Chills Chills Disease Active 2019-07 [place] 07-08 Methodi 00:00: st 00 Fever Fever Disease Active 2019-07 [place] 07-08 Methodi 00:00: st 00 Bladder Bladder Disease Active [place] outlet outlet 6-12 Methodi obstructio obstructio 00:00: st n n 00 Chronic Chronic Disease Active 2020- [place] anticoagul anticoagul 3-19 Me [facility] ation ation 00:00: st 00 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 3-13 Added Method i and and 00:00: automatic st diastolic diastolic 00 ally from heart heart request failure failure for surgery [id number] Aortic Aortic Disease Active 2018-07 [place] valve valve 2-07 Methodi disorder disorder 00:00: st 00 Late onset Late onset Disease Active 2018-07 Overview : [place] Alzheimer' Alzheimer' 2-02 Dr Shy chowdhury s disease s disease 00:00: st with with 00 behavioral behavioral disturbanc disturbanc e e Atrial Atrial Disease Active [place] fibrillati fibrillati 6-21 Me thodi on on 00:00: st 00 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 6-18 Me thodi sm sm 00:00: st 00 Lower Lower Disease Active [place] urinary urinary 6-12 Methodi tract tract 00:00: st symptoms symptoms 00 due to due to benign benign prostatic prostatic hyperplasi hyperplasi a a Increased Increased Disease Active [facility] frequency frequency 6-12 Meth zafar of of 00:00: st urination urination 00 Urinary Urinary Disease Active 2017-07 [place] tract tract 2-17 Methodi infection infection 00:00: st 00 CKD CKD Disease Active 2017-07 [place] (chronic (chronic 2-17 Method i kidney kidney 00:00: st disease) disease) 00 stage 4, stage 4, GFR 15-29 GFR 15-29 ml/min ml/min CHF CHF Disease Active 2017-07 [place] (congestiv (congestiv 2-17 Me thodi e heart e heart 00:00: st failure) failure) 00 Angina Angina Disease Active 2017-07 Overview: Adia n pectoris pectoris 08-05 Added Method i 00:00: automatic st 00 ally from request for surgery [id number] Chronic Chronic Disease Active 2017-07 [place] combined combined 07-08 Method i systolic systolic 00:00: st and and 00 diastolic diastolic congestive congestive heart heart failure failure Coronary Coronary Disease Active 2017-07 Overview: Jorge macedo artery artery 07-08 Methodi disease disease 00:00: see note st involving involving 00 [place] Cardiolog coronary coronary ist is artery of artery [facility] [place] to heart heart add without without spironola angina angina ctone and pectoris pectoris bumex bid S/P TAVR S/P TAVR Disease Active 2017-07 Overview: Jorge macedo (transcath (transcath 07-08 Dr Paco leiva etmelchor 00:00: Ju Franki pt st aortic aortic 00 with valve valve class III replacemen replacemen chf for t) t) milrinone Hx of CABG Hx of CABG Disease Active 2017-07 H sampson 07-08 Methodi 00:00: st 00 Stented Stented Disease Active 2017-07 [place] coronary coronary 07-08 Method i artery artery 00:00: st 00 Cardiac Cardiac Disease Active 2017-07 [place] resynchron resynchron 07-[address] [facility] ization ization 00:00: st therapy therapy 00 defibrilla defibrilla tor tor (BILINGUAL HR GENERALIST-D) in (BILINGUAL HR GENERALIST-D) in place place PAD PAD Disease Active Overview: Adia see [facility] had st disease) disease) 00 doppler with mod right and mild left Cardioembo Cardioembo Disease Active [place] lic stroke lic stroke 09-17 Ga thodi 00:00: st 00 Diabetic Diabetic Disease Active Overview: hellen eye exam eye exam -09/2016 Dr Met valera 00:00: Meg st 00 Alydlen with macular degen, cataract and nonprolif DM retinopat hy09/2017 with left eye diabetic retinopat hy xjehwp04/ 2019 Dr Morgan and has stable DM retinopat hy Acquired Acquired Disease Active 2015-07 Overview: Jorge macedo hypothyroi hypothyroi 08-23 M ethodi dism dism 00:00: decrease st 00 synthroid 0.35 to 0.3Start to take on empty stomach and repeat in 3 months. Neoplasm Neoplasm Disease Active 2015-07 [place] of of 07-15 Jignai uncertain uncertain 00:00: st behavior behavior 00 of skin of skin Personal Personal Disease Active 2015-07 [place] history of history of 07-[address] [facility] skin skin 00:00: st cancer cancer 00 Heart Heart Disease Active Overview: Adia see palpitatio palpitatio 03-25 Ga zoila ns ns 00:00: Siuddhart st h Scarlett EP, was told EF 25% per ptPlaced on Amiodaron e early 03/2016 Renal Renal Disease Active Overview: Adia see insufficie insufficie 02-19 M ethzafar ncy ncy 00:00: seen by st 00 Dr. Solomon to decrease PPIStop calciumKe ep bp less than 130/801/2 017 stage [address] Solomon Benign Benign Disease Active Overview: Adia see non-nodula non-nodula 8- Dr Chris Antonio r r 00:00: Hernandez in st prostatic prostatic 00 the past hyperplasi hyperplasi a with a with lower lower urinary urinary tract tract symptoms symptoms Diabetic Diabetic Disease Active Overview: Jorge macedo polyneurop polyneurop 8-04 Dr Shy tello athy 00:00: Neurologi st associated associated 00 st with type with type [place] 2 diabetes 2 diabetes [facility] mellitus mellitus [phone] Pneumonia Pneumonia Disease Active [facility] ston 7-20 Methodi 00:00: st 00 Prostate Prostate Disease Active Overview: Ho hellen mass mass -12/2019 Dr Antonio 00:00: Storm st 00 was seen has BPH ED ED Disease Active [place] (erectile (erectile 6-12 Meth zafar dysfunctio dysfunctio 00:00: st n) of n) of 00 organic organic origin origin Retention Retention Disease Active [facility] of urine of urine 4-30 Method i 00:00: st 00 Diego Diego Disease Active [place] hematuria hematuria 4-30 Meth zafar 00:00: st 00 Gout Gout Disease Active 2003-07 [place] 08-07 Methodi 00:00: st 00 Hyperlipid Hyperlipid Disease Active [facility]i st GERD GERD Disease Active [place] (gastroeso (gastroeso Me thodi phageal phageal st reflux reflux disease) disease) Disease of Disease of Disease Active [facility] thyroid thyroid Methodi gland gland st Anemia Anemia Disease Active [place] Methodi st History of Past Illness Condition Condition Condition Status Onset Resolution Last Treating Co mments Source Name Details Category Date Date Treatment Clinician Date SOB SOB Disease Resolve 2019-09-09 2019-09-09 [place] (shortness (shortness d 00:00:00 07:34:57 Methodi of breath) of breath) st Reduced Reduced Disease Resolve 2019-06-07 2019-06-07 [place] libido libido d 12-16 00:00:00 05:17:34 Method i 00:00: st 00 Keratosis Keratosis Disease Resolve 2015-072019-06-07 2019-06-07 [place] seborrheic seborrheic d 07-15 00:00:00 05:16:00 Methodi a a 00:00: st 00 Lentigines Lentigines Disease Resolve 2015-072019-06-07 2019-06-07 [place] d 07-15 00:00:00 05:17:16 Method i 00:00: st 00 Multiple Multiple Disease Resolve 2015-2019-06-07 2019-06-07 [place] nevi nevi d 1-09 00:00:00 05:17:22 Method i 00:00: st 00 Other Other Disease Resolve 2019-06-07 2019-06-07 [place] specified specified d 7- 00:00:00 05:17:26 Methodi abnormal abnormal 00:00: st findings findings 00 of blood of blood chemistry chemistry Benign Benign Disease Resolve 2019-06-07 2019-06-07 [place] prostatic prostatic d 7 00:00:00 05:16:28 Methodi hyperplasi hyperplasi 00:00: st a a 00 Chronic Chronic Disease Resolve 2019-06-07 2019-06-07 [place] coronary coronary d 7 00:00:00 05:16:18 Me thodi artery artery 00:00: st disease disease 00 Diabetes Diabetes Disease Resolve 2019-06-07 2019-06-07 [place] mellitus mellitus d 7 00:00:00 05:16:39 Me thodi 00:00: st 00 Hypothyroi Hypothyroi Disease Resolve 2019-06-07 2019-06-07 [place] dism dism d 7 00:00:00 05:17:14 Method i 00:00: st 00 Hypertensi Hypertensi Disease Resolve 2019-06-07 2019-06-07 [place] on on d - 00:00:00 05:16:55 Method i 00:00: st 00 Allergies, Adverse Reactions, Alerts This patient has no known allergies or adverse reactions. Family History Family Member Diagnosis Comments Start Date Stop Date Source Natural father Coronary artery [place] [facility] disease Natural father Early [facility] Social History Social Habit Start Date Stop Date Quantity Comments Source Sex Assigned At [facility] Exposure to Unable to assess [facility] SARS-CoV-2 (event) Tobacco use and 2020-05-08 2020-05-08 Never used [facility] exposure 00:00:00 00:00:00 Alcohol intake 2020-05-08 2020-05-[address] [facility] thodist 00:00:00 00:00:00 non-drinker of alcohol (finding) Smoking Status Start Date Stop Date Source Never smoker [place] Methodis t Medications Ordered Filled Start Stop Current Ordering Indication Dosage Frequency Signature Comments Components Source Medication Medication Date Date Medication? Clinician (SIG) Name Name dulaglutide 2019-07 Yes 1.5mg Q7D Inject 1.5 Lopez (Trulicity) 1-12 mg under Meth zafar 1.5 mg/0.5 13:18: the skin st mL pen 53 once a injector week. UNKNOWN DAY donepeziL 2019-07 Yes 10mg Q.5D Take 10 mg [place] (ARICEPT) 1-12 by mouth 2 Meth zafar 10 MG 13:18: (two) st tablet 53 times a day. spironolact 2019-07 Yes 25mg QD Take 25 mg Lopez one 1-12 by mouth Methodi (ALDACTONE) 13:18: daily. st 25 MG 53 tablet tamsulosin 2019-07 Yes .4mg QD Take 0.4 [place] [facility] (FLOMAX) 1-12 mg by Methodi 0.4 mg 13:18: mouth st capsule 53 daily. levothyroxi 2019-07 Yes 225ug QD Take 225 [place] ne 1-12 mcg by Methodi (SYNTHROID) 13:18: mouth st 200 mcg 53 daily. tablet calcitrioL 2019-07 Yes .5ug QD Take 0.5 [place] [facility] (ROCALTROL) 1-12 mcg by Method i 0.5 MCG 13:18: mouth st capsule 53 daily. isosorbide 2019-07 Yes 30mg QD Take 30 mg [place] mononitrate 1-12 by mouth Meth zafar (IMDUR) 30 13:18: daily. st MG 24 hr 53 tablet SIMVASTATIN 2019-07 Yes 20mg QD Take 20 mg Lopez ORAL 1-12 by mouth Methodi 13:18: daily. st 53 ESZOPICLONE 2019-07 Yes .4mg QD Take 0.4 [place] ORAL 1-12 mg by Methodi 13:18: mouth st 53 nightly. cholecalcif 2019-07 Yes 1{tbl} QD Take 1 [place] stacy, 1-12 tablet by Methodi vitamin D3, 13:18: mouth st (VITAMIN D3 53 daily. ORAL) levothyroxi 2019-07 Yes 25ug QD Take 25 [place] [facility] ne 1-12 mcg by Methodi (SYNTHROID) 13:18: mouth st 25 mcg 53 daily. tablet carvediloL 2019-07- Yes 12.5mg Q.5D Take 1 Jorge macedo (COREG) 1-12 02-10 tablet Methodi 12.5 MG 00:00: 23:59 (12.[address] tablet 00 :00 total) by mouth 2 (two) times a day for 90 days. carvediloL 2019-07- No 6.25mg Q.5D Take 1 Jorge macedo (COREG) 1-11 -12 tablet Methodi 6.25 MG 00:00: 00:00 (6.[address] tablet 00 :00 total) by mouth 2 (two) times a day. gabapentin 2019-07- No 600mg Q.[id number] Take 600 Lopez (NEURONTIN) 1-10 11-10 [id number] mg by Methodi 300 mg 07:59: 00:[address] capsule 27 :00 (three) times a day. Takes 2 tabs 3 times a day gabapentin 2019-07 Yes TAKE TWO [facility] (NEURONTIN) 1-10 (2) Methodi 300 mg 00:00: CAPSULE(S) st capsule 00 BY MOUTH TWICE A DAY. doxycycline 2019-07- No Toe blister 100mg Q.5D Take 1 John (VIBRAMYCIN 0-28 12 without capsule M ethodi ) 100 MG 00:00: 00:00 infection, ([address] capsule 00 :00 left, total) by initial mouth 2 encounter (two) times a day for 7 days. clopidogreL 2019-07 Yes TAKE ONE Ho hellen (PLAVIX) 75 0-23 (1) Methodi mg tablet 00:00: TABLET(S) st 00 BY MOUTH ONCE A DAY. dapaglifloz 2019-07- Yes 5mg QD Take 1 [place] [facility] in 0-21 11-20 tablet (5 Methodi (FARXIGA) 5 00:00: 23:59 mg total) st mg tablet 00 :00 by mouth daily with breakfast for 30 days. carvediloL 2019-07- No 3.125mg Q.5D Take 3.125 John (COREG) 0-13 11-12 mg by Methodi 3.125 MG 00:00: 00:[address] tablet 00 :00 (two) times a day. clopidogreL 2019-07- No TAKE ONE [place] (PLAVIX) 75 0-12 10-23 (1) Methodi mg tablet 00:00: 00:00 TABLET(S) st 00 :00 BY MOUTH ONCE A DAY. clopidogreL 2019-07- No TAKE ONE [place] (PLAVIX) 75 0-05 04-14 (1) Methodi mg tablet 00:00: 00:00 TABLET(S) st 00 :00 BY MOUTH ONCE A DAY. allopurinoL 2019-07- No 100mg QD Take 100 Lopez (ZYLOPRIM) 0-01 10-01 mg by Methodi 100 MG 05:08: 00:[address] tablet 44 :00 nightly. allopurinoL 2019-07 Yes TAKE ONE [place] (ZYLOPRIM) 0-01 (1) Methodi 100 MG 00:00: TABLET(S) st tablet 00 BY MOUTH ONCE A DAY. clopidogreL 2019- No 75mg QD Take 75 mg Lopez (PLAVIX) 75 03-30 by mouth Met hodi mg tablet 08:21: 00:[address] 52 :00 clopidogreL 2019- No TAKE ONE [place] (PLAVIX) 75 03-30 (1) Methodi mg tablet 00:00: 00:00 TABLET(S) st 00 :00 BY MOUTH ONCE A DAY. torsemide 2020- Yes Chronic 80mg Q.5D Take 4 [place] (Demadex) 03-20 combined tablets Me thodi 20 MG 00:00: 23:59 systolic ([address] tablet 00 :00 and total) by diastolic mouth 2 congestive (two) heart times a failure day. (HCC) milrinone 2019- No Chronic 48.4ug/ Infuse Lopez in 5% 03-20 combined min 48.4 Methodi dextrose 00:00: 00:00 systolic mcg/min s t (PRIMACOR) 00 :00 and into a 20 mg/100 diastolic venous mL (200 congestive catheter mcg/mL) heart continuous infusion failure ly. (HCC) torsemide 2019- No 80mg QD Take 4 [place] (Demadex) 03-20 tablets Method i 20 MG 00:00: 00:00 ([address] tablet 00 :00 total) by mouth daily. BUMETanide 2019- No 2mg QD Take 2 mg [place] (BUMEX) 2 03-17 by mouth Metho di MG tablet 15:43: 00:[address] 21 :00 docusate 2019-2019- No 100mg QD Take 100 [place] [facility] sodium 03-17 mg by Methodi (COLACE) 14:58: 00:[address] 100 MG 21 :00 daily. capsule torsemide 2019- No 20mg QD Take 1 [place] (Demadex) 03-17 tablet (20 Met hodi 20 MG 00:00: 00:00 mg total) st tablet 00 :00 by mouth daily. amIODarone 2020- Yes 200mg QD Take 1 [place] [facility] (PACERONE) 03-03 tablet Method i 200 MG 00:00: 23:59 ([address] tablet 00 :00 total) by mouth daily. potassium 2019-2019- No 40meq QD Take 4 [place] chloride 03-03 capsules Method i (MICRO-K) 00:00: 00:00 ([address] 10 MEQ CR 00 :00 total) by capsule mouth daily. BUMETanide 2019- No 1mg QD Take 1 mg [place] (BUMEX) 2 03-02 by mouth Metho di MG tablet 19:33: 00:[address] 20 :00 evening. amIODarone 2019- No 200mg Q.5D Take 200 [place] (PACERONE) 03-02 mg by Methodi 200 MG 19:33: 00:[address] tablet 20 :00 (two) times a day. BUMETanide 2019-2019- No 2mg QD Take 2 mg [place] (BUMEX) 2 03-02 by mouth Metho di MG tablet 19:33: 00:[address] 20 :00 morning. insulin 2019- Yes 15U Q.[id number] Inject 3 Lopez regular 03-02 [id number] unit Method i human U-500 00:00: 3D marking on st (HumuLIN R 00 U-100 U-500, syringe Conc, (15 Units Insulin) total) 500 unit/mL under the CONCENTRATE skin 3 D injection (three) times a day before meals. milrinone 2019- 2020- No 36.3ug/ Infuse [place] in 5% 03-02 min 36.3 Methodi dextrose 00:00: 00:00 mcg/min st (PRIMACOR) 00 :00 into a 20 mg/100 venous mL (200 catheter mcg/mL) continuous infusion ly. torsemide 2019-0 2020- No 80mg Q.5D Take 4 [place] (DEMADEX) 03-02 tablets Method i 20 MG 00:00: 00:00 ([address] tablet 00 :00 total) by mouth 2 (two) times a day. carvediloL 2019- 2020- No 3.125mg Q.5D Take 1 [place] (COREG) 03-02 tablet Methodi 3.125 MG 00:00: 00:00 (3.[address] tablet 00 :00 total) by mouth 2 (two) times a day. sennosides- 2019-0 2020- No 1{tbl} Q.5D [facility] docus[facility] 03-02 tablet by Metho di sodium 00:00: 00:[address] (SENOKOT-S) 00 :00 (two) 8.6-50 mg times a per tablet day. cefuroxime 2019- 2020- No 250mg QD Take 1 [place] (CEFTIN) 03-02 tablet Methodi 250 MG 00:00: 23:59 ([address] tablet 00 :00 total) by mouth daily for 4 days. torsemide 2019-0 2020- No 40mg Q.5D Take 2 [place] (Demadex) 02-23 tablets Method i 20 MG 00:00: 00:00 ([address] tablet 00 :00 total) by mouth 2 (two) times a day. Eliquis 2.5 2019-0 Yes 2.5mg Q.5D Take 1 [place] [facility] mg tablet 02-17 tablet Methodi 00:00: (2.[address] 00 total) by mouth 2 (two) times a day. phenazopyri 2019-0 2020- No 100mg QD Take 100 Lopez dine 02-03 07-31 mg by Methodi (PYRIDIUM) 15:34: 00:[address] 100 MG 40 :00 daily. tablet pregabalin 2019-0 2020- No 75mg QD Take 75 mg Lopez (LYRICA) 75 02-03 by mouth Met hodi MG capsule 15:34: 00:[address] 31 :00 traZODone 2019- No 50mg QD Take 50 mg [place] (DESYREL) 02-03 by mouth Metho di 50 MG 15:30: 00:[address] tablet 58 :00 finasteride 2019- No 5mg QD Take 5 mg [place] (PROSCAR) 5 02-03 by mouth Met hodi mg tablet 15:26: 00:[address] 31 :00 eszopiclone 2019- No Primary 1mg QD Take 1 Lopez (LUNESTA) 1 02-03 08-30 insomnia tablet (1 Methodi MG tablet 00:00: 23:59 mg total) st 00 :00 by mouth nightly for 30 days. Take immediatel y before bedtime apixaban 2019- No 2.5mg Q.5D Take 2.5 [place] (ELIQUIS) 01-26-23 mg by Methodi 2.5 mg 08:09: 00:[address] tablet 40 :00 (two) times a day. Eliquis 2.5 2019-2019- No TAKE ONE [place] mg tablet 01-26 08-14 (1) Methodi 00:00: 00:00 TABLET(S) st 00 :00 BY MOUTH TWICE A DAY. insulin 2019- No 50U QD Inject 50 [place] glargine 01-23-20 Units Methodi U-300 conc 08:14: 00:00 under the s t (Toujeo Max 02 :00 skin U-300 daily. SoloStar) 300 unit/mL (3 mL) insulin pen insulin 2019- No Inject [place] lispro 01-23-20 under the Methodi (HumaLOG 08:14: 00:[address] KwikPen 02 :00 Admin Insulin) Instructio 200 unit/mL ns. (3 mL) SLIDING insulin pen SCALE , MAX 40 UNITS /DAY insulin 2019- No 60U QD Inject 60 [place] glargine 01-23 08-27 Units Methodi U-300 conc 00:00: 00:00 under the s t (Toujeo Max 00 :00 skin daily U-300 for 30 SoloStar) days. 300 unit/mL (3 mL) insulin pen insulin 2019-2019- No 15U Q.[id number] Inject 15 Lopez lispro 01-23 08 [id number] Units Metho di (HumaLOG 00:00: 00:[address] KwikPen 00 :00 skin 3 Insulin) (three) 200 unit/mL times a (3 mL) day before insulin pen meals. SLIDING SCALE , MAX 40 UNITS /DAY BUMETanide 2019-2019- No 2mg QD Take 2 mg [place] (BUMEX) 2 01-22 by mouth Metho di MG tablet 14:01: 00:[address] 07 :00 insulin 2019-2019- No Inject John lispro 01-22 under the Methodi (HumaLOG 14:01: 00:[address] KwikPen 07 :00 Admin Insulin) Instructio 200 unit/mL ns. (3 mL) Sliding insulin pen scale, max 40 units insulin 2019- No 50U QD Inject 50 [place] glargine 01-22 Units Methodi U-300 conc 14:01: 00:00 under the s t (Toujeo Max 07 :00 skin U-300 daily. SoloStar) 300 unit/mL (3 mL) insulin pen spironolact 2019- No 25mg QD Take 25 mg Lopez one 01-22 by mouth Methodi (ALDACTONE) 14:01: 00:[address] 25 MG 07 :00 tablet traZODone 2019- No 50mg QD Take 50 mg [place] (DESYREL) 01-22 by mouth Metho di 50 MG 14:01: 00:[address] tablet 07 :00 tamsulosin 2019-2019- No .4mg QD Take 0.4 [place] (FLOMAX) 01-22-17 mg by Methodi 0.4 mg 14:01: 00:[address] capsule 07 :00 daily. levothyroxi 2019-2019- No 200ug QD Take 200 Lopez ne 01-22-17 mcg by Methodi (SYNTHROID) 14:01: 00:[address] 200 mcg 07 :00 daily. tablet carvediloL 2019- No 3.125mg Q.5D Take 1 [place] (COREG) 01-22 08-18 tablet Methodi 3.125 MG 00:00: 23:59 (3.[address] tablet 00 :00 total) by mouth 2 (two) times a day for 30 days. hydrALAZINE 2019-0 2020- No 25mg Q.[id number] Take 25 mg Lopez (APRESOLINE -20 01-17 [id number] by mouth 3 Methodi ) 25 MG 14:24: 00:00 3D (three) st tablet 46 :00 times a day. fexofenadin 2019-0 2020- No 180mg QD Take 180 Lopez e (RAHAT) 7- 07-17 mg by Method i 180 MG 14:24: 00:[address] tablet 11 :00 daily. dulaglutide 2019-0 2020- No 1.5mg Q7D Inject 1.5 Lopez (TRULICITY) 7- 07-17 mg under Met hodi 1.5 mg/0.5 14:24: 00:[address] mL pen 04 :00 once a injector week. amIODarone 2019-0 2020- No 200mg Q.5D Take [facility] (PACERONE) 01-20 07-17 mg by Methodi 200 MG 14:23: 00:[address] tablet 18 :00 (two) times a day. cholecalcif 2019-0 2020- No 1000U QD Take 1,000 Lopez stacy, 01-20 07-17 Units by Methodi vitamin D3, 14:23: 00:[address] (VITAMIN D3 04 :00 daily. ORAL) clopidogreL 2019-0 2020- No 75mg QD Take 75 mg Lopez (PLAVIX) 75 01-20-17 by mouth Met hodi mg tablet 14:22: 00:[address] 49 :00 BUMETanide 2020-0 2020- No 2mg Q.5D Take 2 mg [place] (BUMEX) 2 - 07-17 by mouth 2 Met hodi MG tablet 14:22: 00:00 (two) st 22 :00 times a day. spironolact 2019-0 2020- No 25mg QD Take 25 mg Lopez one 01-20 07-17 by mouth Methodi (ALDACTONE) 14:22: 00:[address] 25 MG 10 :00 tablet traZODone 2020- No 50mg QD Take 50 mg [place] (DESYREL) 01-20 by mouth Metho di 50 MG 14:22: 00:[address] tablet 10 :00 tamsulosin 2020- No .4mg QD Take 0.4 [place] (FLOMAX) 01-20 mg by Methodi 0.4 mg 14:22: 00:[address] capsule 10 :00 daily with dinner. isosorbide 2020- No 10mg Q.[id number] Take 10 mg Lopez dinitrate 01-20 [id number] by mouth 3 Methodi (ISORDIL) 14:22: 00:00 3D (three) st 10 MG 10 :00 times a tablet day. ranitidine 2020- No 150mg QD Take 150 [place] (ZANTAC) 01-20 mg by Methodi 150 MG 14:22: 00:[address] tablet 09 :00 daily. carvediloL 2020- No 3.125mg Q.[id number] Take 3.125 Lopez (COREG) 01-20 [id number] mg by Meth zafar 3.125 MG 13:47: 00:[address] tablet 54 :00 (three) times a day. gabapentin 2020- No 300mg Q.[id number] Take 1 Lopez (NEURONTIN) 01-11 [id number] capsule Methodi 300 mg 00:00: 00:00 3D ([address] capsule 00 :00 total) by mouth 3 (three) times a day. 1 tab in the evening and 1 at bedtime donepeziL 2019-0 2020- No 10mg Q.5D Take 1 [place] (ARICEPT) 01-11 tablet (10 Met hodi 10 MG 00:00: 00:00 mg total) st tablet 00 :00 by mouth 2 (two) times a day. docusate 2019-0 2020- No 100mg Q.5D Take 1 [place] sodium 12-16- capsule Methodi (Colace) 00:00: 23:59 ([address] 100 MG 00 :00 total) by capsule mouth 2 (two) times a day for 30 days. phenazopyri 2019-2019- No 100mg Q.[id number] Take 1 Lopez dine 12-16 [id number] tablet Method i (Pyridium) 00:: :59 3D ([address] 100 MG 00 :00 total) by tablet mouth 3 (three) times a day as needed for bladder spasms for up to 10 days. cefdinir 2019- No 300mg Q.5D Take 1 [place] (OMNICEF) 12-16 capsule Method i 300 MG 00:00: 23:59 ([address] capsule 00 :00 total) by mouth 2 (two) times a day for 5 days. miconazole 2019-2019- No Rash Q.5D Apply [place] nitrate 2 % 11-22 topically [facility] ointment 00:00: 23:59 2 (two) st 00 :00 times a day for 14 days. BUMETanide 2019-2019- No 2mg Q.5D Take 1 [place] (BUMEX) 2 11-17 tablet (2 Meth zafar MG tablet 00:00: 00:00 mg total) st 00 :00 by mouth 2 (two) times a day. Take 2 g in the morning and 1 g in the afternoon pregabalin 2019- No 75mg QD Take 1 [place] (Lyrica) 75 10-31 capsule Meth zafar MG capsule 00:00: 00:00 ([address] 00 :00 total) by mouth nightly. levothyroxi 2019- No Other 25ug QD Take 1 [facility] hellen ne 10-18 specified tablet (25 Met hodi (SYNTHROID) 00:00: 00:00 hypothyroid mcg total) st 25 mcg 00 :00 ism by mouth tablet every morning. traZODone 2019-2019- No Primary 50mg QD Take 1 [facility] (DESYREL) 10-18- insomnia tablet (50 Methodi 50 MG 00:00: 23:59 mg total) st tablet 00 :00 by mouth nightly for 30 days. BUMETanide 2019-2019- No Take 2 g [place] (BUMEX) 2 09-16-14 in the Method[facility] MG tablet 00:00: 00:[address] 00 :00 and 1 g in the afternoon isosorbide 2019-2019- No 10mg Q.[id number] Take 1 [place] dinitrate 09-08 [id number] tablet (10 [facility] (ISORDIL) 00:00: 23:59 3D mg total) st 10 MG 00 :00 by mouth 3 tablet (three) times a day for 30 days. hydrALAZINE 2019-2019- No 25mg Q.[id number] Take 1 [place] (APRESOLINE 09-08 [id number] tablet (25 [facility] ) 25 MG 00:00: 23:59 3D mg total) st tablet 00 :00 by mouth every 8 (eight) hours for 30 days. carvediloL 2019-2019- No 3.125mg Q.5D Take 1 H [place] (COREG) 09-08 tablet Methodi 3.125 MG 00:00: 23:59 (3.[address] tablet 00 :00 total) by mouth 2 (two) times a day for 30 days. tamsulosin 2019- No .8mg QD Take 2 [place] (FLOMAX) 09-08 capsules Method i 0.4 mg 00:00: 23:59 (0.[address] capsule 00 :00 total) by mouth daily for 30 days. spironolact 2019- No 25mg QD Take 1 Clarke greenn one 09-08 tablet (25 [facility] (ALDACTONE) 00:00: 23:59 mg total) st 25 MG 00 :00 by mouth tablet daily for 30 days. BUMETanide 2019- No 2mg QD Take 1 [place] (BUMEX) 2 09-08 tablet (2 Meth zafar MG tablet 00:00: 00:00 mg total) st 00 :00 by mouth daily for 30 days. levothyroxi 2019- 2020- No Other TAKE ONE [facility] 08-28 specified (1) [facility] (SYNTHROID) 00:00: 00:00 hypothyroid TABLET(S) st 200 mcg 00 :00 ism BY MOUTH tablet ONCE A DAY IN THE MORNING. levothyroxi 2019- No Other 200ug QD Take 1 [facility] 08-25 specified tablet [facility] (SYNTHROID) 00:00: 00:00 hypothyroid ([address] 200 mcg 00 :00 ism total) by tablet mouth daily. ciprofloxac 2019- 250mg Q.5D Take 1 Jorge macedo in HCl 07-27 tablet [facility] (CIPRO) 250 00:00: 23:59 ([address] MG tablet 00 :00 total) by mouth 2 (two) times a day for 10 days. clopidogrel 2019- No TAKE ONE [place] (PLAVIX) 75 07-12 (1) [facility] mg tablet 00:00: 00:00 TABLET(S) st 00 :00 BY MOUTH ONCE A DAY. cholecalcif 2018-07 1000U QD Take 1,000 [place] [facility], 08-12- Units by [facility] vitamin D3, 11:09: 00:[address] (VITAMIN 34 :00 daily. D3) 1,000 unit capsule budesonide- 2018-07- 2{puff} Q.5D Inhale 2 [facility] formoterol 08-12 07-17 puffs 2 Metho di (SYMBICORT) 00:00: 00:00 (two) st 80-4.5 00 :00 times a mcg/actuati day. on inhaler potassium 2018-07 Essential TAKE ONE [facility] chloride 08-05-05 hypertensio (1) Met hodi (K-DUR) 20 00:00: 00:00 n TABLET(S) s t MEQ CR 00 :00 BY MOUTH tablet ONCE A DAY. UNABLE TO 2018-07 QD daily. [place] FIND 07-28 Calcitrol Methodi 11:08: 00:[address] 45 :00 donepezil 2018-07- 10mg Q.5D Take 1 [place] (ARICEPT) 07-2808 tablet (10 Met hodi 10 MG 00:00: 00:00 mg total) st tablet 00 :00 by mouth 2 (two) times a day. ELIQUIS 2.5 2018-07- No TAKE ONE [place] mg tablet 07-24 (1) Methodi 00:00: 00:00 TABLET(S) st 00 :00 BY MOUTH TWICE A DAY. spironolact 2018-07- Aortic TAKE ONE [place] one 07-18- valve (1) [facility] (ALDACTONE) 00:00: 00:00 disorder TABLET(S) st 25 MG 00 :00 BY MOUTH tablet ONCE A DAY. isosorbide 2018-07- TAKE ONE [place] mononitrate 1-05 (1) [facility] (IMDUR) 30 00:00: 00:00 TABLET(S) s t MG 24 hr 00 :00 BY MOUTH tablet ONCE A DAY. ELIQUIS 2.5 2018-07- No TAKE ONE [place] mg tablet 005-28 (1) Method[facility] 00:00: 00:00 TABLET(S) st 00 :00 BY MOUTH TWICE A DAY. 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 calcitriol 2018-07- .25ug QD Take 0.25 [facility] (ROCALTROL) -17 mcg by Metho di 0.25 MCG 00:00: 00:[address] capsule 00 :00 daily. gabapentin 2019- No 600mg Q.5D Take 2 [facility] (NEURONTIN) 03-26 07-08 capsules Met hodi 300 mg 00:00: 00:00 ([address] capsule 00 :00 total) by mouth 2 (two) times a day. 1 tab in the evening and 1 at bedtime donepezil 2018- No 10mg QD Take 1 [place] (ARICEPT) 03-26 tablet (10 Met h[facility] 10 MG 00:00: 00:00 mg total) st tablet 00 :00 by mouth nightly. allopurinol 2019- Elevated TAKE ONE [facility] (ZYLOPRIM) 03-09-17 uric acid (1) Met hodi 100 MG 00:00: 00:00 in blood TABLET(S) s t tablet 00 :00 BY MOUTH ONCE A DAY. potassium 2018- Essential TAKE ONE [place] chloride 03-01-30 hypertensio (1) Met hodi (K-DUR) 20 00:00: 15:45 n TABLET(S) s t MEQ CR 00 :52 BY MOUTH tablet ONCE A DAY. isosorbide 2018- [place] mononitrate 8-05 05-28 [facility] (IMDUR) 30 00:00: 00:00 st MG 24 hr 00 :00 tablet MYRBETRIQ 2019- No 25mg Q.5D Take 25 mg [place] 25 mg 6-12 03-05 by mouth 2 [facility] tablet 00:00: 00:00 (two) st extended 00 :00 times a release 24 day. hr levothyroxi 2019- [facility] 4 04-14 (1) [facility] (SYNTHROID, 00:00: 00:00 TABLET(S) st LEVOXYL) 25 00 :00 BY MOUTH mcg tablet EVERY MORNING. levothyroxi 2019- Other TAKE ONE [place] ne 08-28 02-19 specified (1) [facility] (SYNTHROID, 00:00: 00:00 hypothyroid TABLET(S) st LEVOXYL) 00 :00 ism BY MOUTH 200 mcg ONCE A DAY tablet IN THE MORNING. simvastatin 2017-07- No 20mg QD Take 1 [facility] (ZOCOR) 20 08-23- tablet (20 Me thodi MG tablet 00:00: 00:00 mg total) st 00 :00 by mouth once daily. clopidogrel 2017-07- No 75mg QD Take 1 [place] [facility] (PLAVIX) 75 08-23-06 tablet (75 M ethodi mg tablet 00:00: 00:00 mg total) st 00 :00 by mouth daily. spironolact 2017-07- Aortic 25mg QD Take 1 [place] one 08-23 valve tablet (25 [facility] (ALDACTONE) 00:00: 00:00 disorder mg total) st 25 MG 00 :00 by mouth tablet daily. ranitidine 2017-07 Yes TAKE ONE [facility] (ZANTAC) 07-07 (1) [facility] - 150 MG 00:00: TABLET(S) Medica l tablet 00 BY MOUTH Center ONCE A DAY. BUMETanide 2019- No 1{tbl} Q.5D Take 1 [place] (BUMEX) 2 7- 03-05 tablet by Meth zafar MG tablet 00:00: 00:[address] 00 :00 (two) times a day. calcitriol Yes TAKE ONE [facility] (ROCALTROL) 5-03 (1) [facility] - 0.25 MCG 00:00: CAPSULE(S) Med ical capsule 00 BY MOUTH Center ONCE A DAY. finasteride 2019- No Benign TAKE ONE [place] (PROSCAR) 5 07-25 prostatic (1) Me thodi mg tablet 00:00: 00:00 hyperplasia TABLET(S) st 00 :00 with lower BY MOUTH urinary ONCE A tract DAY. symptoms, symptom details unspecified tamsulosin 2019- No 1{capsu QD Take 1 [place] (FLOMAX) 07-23 03-05 le} capsule by Meth zafar 0.4 mg 00:00: 00:[address] capsule,ext 00 :00 daily. ended release 24hr metoprolol 2016-07- No 1{tbl} Q.5D Take 1 [place] tartrate 07-2305 tablet by Diane pavon (LOPRESSOR) 00:00: 00:[address] 25 mg 00 :00 (two) tablet times a day. insulin 2019- No Diabetic inject per [place] regular 02-12 autonomic sliding Met hodi human U-500 00:00: 00:[address] (HumuLIN R 00 :00 associated 25-50 U-500) 500 with type 2 units unit/mL diabetes under the CONCENTRATE mellitus skin D injection (HCC) before each meal 3 times a day insulin 2018- No Use as [place] syringe-nee 11-22 directed Met [facility] dle U-100 00:00: 00:00 st 0.5 mL 31 00 :00 gauge x 5/16 syringe blood sugar 2018- No Test sugar [place] diagnostic 11-22 3-4 times Met [facility]odi strips 00:00: 00:[address] (CONTOUR 00 :00 NEXT STRIPS) strip test strips Immunizations Ordered Immunization Filled Immunization Date Status Commen ts Source Name Name FLUZONE HIGH-DOSE PF 2020-05-03 Completed [place] 00:[facility]:00 [facility] FLUZONE HIGH-DOSE PF 2019-04-15 Completed [place] 00:[facility] Influenza, 2018-04-23 Completed [place] Quadrivalent 00:00:00 [facility] Influenza Whole 2018-04-16 Completed [place] 00:00:00 [facility] FLUZONE HIGH-DOSE PF 2017-04-05 Completed [place] 00:[facility]:00 [facility] Td, Unspecified 2017-03-22 Completed [place] 00:00:00 [facility] Tdap 2016-10-23 Completed [place] 00:00:00 [facility] Zoster 2016-10-23 Completed [place] 00:00:00 [facility] Influenza Whole 2016-04-20 Completed [place] 00:00:00 [facility] Pneumococcal 2016-04-20 Completed [place] Conjugate 13-Valent 00:00:00 Metho dist Pneumococcal 2016-04-11 Completed [place] Polysaccharide 00:00:00 [facility] Influenza Whole 2015-04-24 Completed [place] 00:00:00 [facility] Pneumococcal 2011-06-20 Completed [place] Conjugate 00:00:00 [facility] Vital Signs Vital Name Observation Time Observation Value Comments Source Systolic blood 2020-05-18 11:55:56 116 mm[Hg] [place] n [facility] pressure Diastolic blood 2020-05-18 11:55:56 69 mm[Hg] [place] [facility] pressure Heart rate 2020-05-18 11:55:56 71 /min [facility] Body temperature 2020-05-18 11:55:56 36.17 Angela [place] [facility] Respiratory rate 2020-05-18 11:55:56 18 /min [place] [facility] Oxygen saturation in 2020-05-18 11:55:56 97 /min John Che Arterial blood by Pulse oximetry Body weight 2020-05-18 04:22:21 92.534 kg John Che BMI 2020-05-18 04:22:21 28.45 kg/m2 [place] [facility] Body height 2020-05-10 19:00:00 180.3 cm John Che Procedures Procedure Date / Time Performing Clinician Source Performed POC GLUCOSE 2020-05-18 08:14:00 Anette Hussein [facility] HC COMPLETE BLD COUNT 2020-05-18 05:00:00 Anette Hussein W/AUTO DIFF BASIC METABOLIC PANEL 2020-05-18 04:00:00 Anette Hussein MAGNESIUM LEVEL 2020-05-18 04:00:00 Anette Hussein ESTIMATED GFR 2020-05-18 04:00:00 Anette Hussein odist POC GLUCOSE 2020-05-17 21:12:00 Anette Hussein Meth odist POC GLUCOSE 2020-05-17 17:51:00 Anette Hussein Meth odist SODIUM LEVEL 2020-05-17 13:40:00 Anette Hussein Meth odist SODIUM LEVEL, URINE, 2020-05-17 13:40:00 Anette Hussein [facility] RANDOM CREATININE LEVEL, URINE, 2020-05-17 13:40:00 Anette Hussein ston [facility] RANDOM OSMOLALITY, URINE 2020-05-17 13:40:00 Anette Hussein Me thodist OSMOLALITY, SERUM 2020-05-17 13:30:00 Anette Hussein Me thodist POC GLUCOSE 2020-05-17 12:01:00 Anette Hussein Meth odist HC COMPLETE BLD COUNT 2020-05-17 09:00:00 Coby Doan [facility] W/AUTO DIFF B NATRIURETIC PEPTIDE 2020-05-17 09:00:00 Coby Doan [facility] POC GLUCOSE 2020-05-17 08:12:00 Anette Hussein Meth odist LACTIC ACID LEVEL 2020-05-17 07:41:00 Coby Doan Me thodist COMPREHENSIVE METABOLIC 2020-05-17 07:39:00 Coby Doan [facility] PANEL MAGNESIUM LEVEL 2020-05-17 07:39:00 Coby Doan Meth odist ESTIMATED GFR 2020-05-17 07:39:00 Coby Doan Meth odist PARTIAL THROMBOPLASTIN 2020-05-17 05:20:00 Anette Hussein on [facility] TIME (PTT) POC GLUCOSE 2020-05-16 21:29:00 Anette Hussein Meth odist POC GLUCOSE 2020-05-16 18:00:00 Anette Hussein Meth odist POC GLUCOSE 2020-05-16 12:13:00 Anette Hussein Meth odist POC GLUCOSE 2020-05-16 08:28:00 Anette Hussein Meth odist PARTIAL THROMBOPLASTIN 2020-05-16 05:59:00 Anette Hussein on [facility] TIME (PTT) POC GLUCOSE 2020-05-15 21:17:00 KeenanFredrisa Lopez Meth odist POC GLUCOSE 2020-05-15 17:36:00 KeenanAnette Meth odist NM BONE SCAN 3 PHASE 2020-05-15 16:03:34 Tootie Mcqueen [facility] POC GLUCOSE 2020-05-15 11:55:00 KeenanAnette Meth odist POC GLUCOSE 2020-05-15 07:53:00 KeenanAnette Meth odist PARTIAL THROMBOPLASTIN 2020-05-15 06:25:00 Anette Hussein on [facility] TIME (PTT) BASIC METABOLIC PANEL 2020-05-15 06:25:00 Ceci Lerma [facility] stomayi [facility] MAGNESIUM LEVEL 2020-05-15 06:25:00 Ceci Lerma M ethodist HC COMPLETE BLD COUNT 2020-05-15 06:25:00 Ceci Lerma Clarke muñoz [facility] W/AUTO DIFF PHOSPHORUS LEVEL 2020-05-15 06:25:00 Ceci Lerma [facility] ESTIMATED GFR 2020-05-15 06:25:00 Ceci Lerma M ethodist POC GLUCOSE 2020-05-14 20:54:00 KeenanAnette Meth odist POC GLUCOSE 2020-05-14 17:13:00 KeenanAnette Meth odist POC GLUCOSE 2020-05-14 12:50:00 KeenanAnette Meth odist POC GLUCOSE 2020-05-14 08:09:00 KeenanAnette Meth odist PARTIAL THROMBOPLASTIN 2020-05-14 05:30:00 Anette Hussein on [facility] TIME (PTT) HC COMPLETE BLD COUNT 2020-05-14 05:30:00 Anette Hussein [facility] W/AUTO DIFF BASIC METABOLIC PANEL 2020-05-14 04:00:00 Anette Hussein [facility] ESTIMATED GFR 2020-05-14 04:00:00 KeenanFredrisa Lopez Meth odist POC GLUCOSE 2020-05-13 21:09:00 Keenan Anetterisa Lopez Meth odist POC GLUCOSE 2020-05-13 17:53:00 Anette Hussein Meth odist POC GLUCOSE 2020-05-13 11:26:00 KeenanAnette lockhart Meth odist POC GLUCOSE 2020-05-13 07:07:00 KeenanAnette lockhart Meth odist PARTIAL THROMBOPLASTIN 2020-05-13 04:06:00 KeenanAnette lockhart [place] [facility] TIME (PTT) CBC HEMOGRAM 2020-05-13 04:06:00 Anette Hussein odist B NATRIURETIC PEPTIDE 2020-05-13 04:06:00 Hans Ramsey R. BASIC METABOLIC PANEL 2020-05-13 04:06:00 Hans Ramsey R. MAGNESIUM LEVEL 2020-05-13 04:06:00 Hans Ramsey R. ESTIMATED GFR 2020-05-13 04:06:00 Hans Ramsey R. POC GLUCOSE 2020-05-12 21:08:00 Anette Hussein Meth odist POC GLUCOSE 2020-05-12 18:01:00 KeenanAnette lockhart Meth odist POC GLUCOSE 2020-05-12 13:44:00 KeenanAnette lockhart Meth odist PARTIAL THROMBOPLASTIN 2020-05-12 04:55:00 KeenanFredrisa Logant on [facility] TIME (PTT) BASIC METABOLIC PANEL 2020-05-12 04:55:00 Keenan, Anette Cheek n [facility] HC COMPLETE BLD COUNT 2020-05-12 04:55:00 KeenanAnette n [facility] W/AUTO DIFF ESTIMATED GFR 2020-05-12 04:55:00 Anette Hussein Meth odist PARTIAL THROMBOPLASTIN 2020-05-11 22:52:00 Keenan, Anette Logant on [facility] TIME (PTT) POC GLUCOSE 2020-05-11 19:20:00 Anette Hussein Meth odist TTE COMPLETE, W CONTRAST, 2020-05-11 17:13:20 Cat Phillips [facility] W DOPPLER ([id number]) PARTIAL THROMBOPLASTIN 2020-05-11 15:55:00 Keenan, Anette Logant on [facility] TIME (PTT) POC GLUCOSE 2020-05-11 12:12:00 Anette Hussein Meth odist POC GLUCOSE 2020-05-11 08:33:00 Anette Hussein Meth odist PARTIAL THROMBOPLASTIN 2020-05-11 08:15:00 Fred Husseinrisa London[place] on [facility] TIME (PTT) HC COMPLETE BLD COUNT 2020-05-11 06:24:00 Anette Hussein Adia n [facility] W/AUTO DIFF COMPREHENSIVE METABOLIC 2020-05-11 06:24:00 Fred Husseinrisa culver [facility] PANEL LACTIC ACID LEVEL 2020-05-11 06:24:00 Anette Hussein Me thodist MAGNESIUM LEVEL 2020-05-11 06:24:00 Anette Hussein Meth odist ESTIMATED GFR 2020-05-11 06:24:00 Anette Hussein Meth odist PARTIAL THROMBOPLASTIN 2020-05-10 22:29:00 Fred Husseinrisa Londono on [facility] TIME (PTT) POC GLUCOSE 2020-05-10 19:10:00 Anette Hussein Meth odist BLOOD CULTURE, AEROBIC & 2020-05-10 15:00:00 Susu Blancas ANAEROBIC BLOOD CULTURE, AEROBIC & 2020-05-10 14:45:00 Susu Blancas ANAEROBIC PARTIAL THROMBOPLASTIN 2020-05-10 14:40:00 Keenan Anette Londono on [facility] TIME (PTT) POC GLUCOSE 2020-05-10 13:34:00 Anette Hussein Jairo calzadaist XR PICC CHEST PORTABLE 2020-05-10 12:16:25 Keenan Anette Londono on [facility] PICC INSERTION REQUEST 2020-05-10 12:11:40 Javan Betts [facility] US ANKLE BRACHIAL INDEX 2020-05-10 11:30:00 Chris Ponce US DUPLEX ARTERIAL LOWER 2020-05-10 11:00:00 Chris Ponce EXTREMITY BILATERAL POC GLUCOSE 2020-05-10 08:39:00 Anette Hussein Meth odist VANCOMYCIN LEVEL, RANDOM 2020-05-10 04:43:00 Fred Husseinrisa muñoz [facility] COMPREHENSIVE METABOLIC 2020-05-10 04:43:00 Anette Hussein Desmond culver [facility] PANEL LACTIC ACID LEVEL 2020-05-10 04:43:00 Anette Hussein Me thodist C-REACTIVE PROTEIN 2020-05-10 04:43:00 Anette Hussein ethodist MAGNESIUM LEVEL 2020-05-10 04:43:00 Anette Hussein Meth odist PHOSPHORUS LEVEL 2020-05-10 04:43:00 Anette Hussein Met hodist ESTIMATED GFR 2020-05-10 04:43:00 Anette Hussein Meth odist HC COMPLETE BLD COUNT 2020-05-10 04:20:00 Anette Hussein Adia see [facility] W/AUTO DIFF SEDIMENTATION RATE 2020-05-10 04:20:00 Anette Hussein ethodist HEMOGLOBIN A1C 2020-05-10 04:20:00 Ramiro Delatorre [facility] POC GLUCOSE 2020-05-09 23:14:00 Anette Hussein Meth odist POC GLUCOSE 2020-05-09 21:01:[address] ABDOMEN PELVIS WO 2020-05-09 17:30:33 Anette Hussein [facility] CONTRAST COMPREHENSIVE METABOLIC 2020-05-09 04:00:00 Nixon Perdue [facility] PANEL ESTIMATED GFR 2020-05-09 04:00:00 Cat Phillips Meth odist HC COMPLETE BLD COUNT 2020-05-09 03:32:00 Nixon Perdue on [facility] W/AUTO DIFF B NATRIURETIC PEPTIDE 2020-05-09 03:32:00 Nixon Perdue on [facility] POC GLUCOSE 2020-05-08 21:39:00 Nixon Perdue Met hodist XR FOOT 3+ VW LEFT 2020-05-08 20:05:24 Nixon Perdue LACTIC ACID LEVEL, SEPSIS 2020-05-08 18:58:00 Jorge Yates [facility] - NOW AND REPEAT 2X EVERY Chetan R. 3 HOURS B NATRIURETIC PEPTIDE 2020-05-08 18:58:00 Cat Phillips [facility] TROPONIN 2020-05-08 18:58:00 Cat Phillips Meth odist COVID-19 QUALITATIVE PCR 2020-05-08 16:50:00 Clarke Yates Chetan R. BLOOD CULTURE, AEROBIC & 2020-05-08 16:12:00 Clarke Yates ANAEROBIC [place] R. BLOOD CULTURE, AEROBIC & 2020-05-08 15:55:00 Clarke Yates ANAEROBIC Chetan R. HC COMPLETE BLD COUNT 2020-05-08 15:55:00 Adia Yates W/AUTO DIFF [place] R. COMPREHENSIVE METABOLIC 2020-05-08 15:55:00 Desmond Yates PANEL Chetan RXenia LACTIC ACID LEVEL, SEPSIS 2020-05-08 15:55:00 Jorge Yates - NOW AND REPEAT 2X EVERY Chetan R. 3 HOURS ESTIMATED GFR 2020-05-08 15:55:00 John Yates Chetan R. XR CHEST 1 VW PORTABLE 2020-05-08 15:17:25 Spring Yates Chetan R. ECG ED PRELIMINARY 2020-05-08 15:00:08 John Yates ethodist INTERPRETATION Chetan R. ECG 12-LEAD 2020-05-08 13:30:10 John Yates Chetan R. POC GLUCOSE 2020-04-26 09:42:00 Jeri Glez CV RIGHT HEART CATH 2020-04-26 09:18:27 Coby Doan POC GLUCOSE 2020-04-26 08:25:00 Jeri Glez odist COVID-19 QUALITATIVE PCR 2020-04-24 13:12:00 Coby Doan MAGNESIUM LEVEL 2020-04-24 13:12:00 Josselyn Ybarra PHOSPHORUS LEVEL 2020-04-24 13:12:00 Josselyn Ybarra BASIC METABOLIC PANEL 2020-04-24 13:12:00 Coby Doan HC COMPLETE BLD COUNT 2020-04-24 13:12:00 Franki, Ju Judith [place] [facility] W/AUTO DIFF B NATRIURETIC PEPTIDE 2020-04-24 13:12:00 Coby Doankathya n [facility] ESTIMATED GFR 2020-04-24 13:12:00 Coby Doan Meth odist POC GLUCOSE 2020-03-02 17:40:00 Coby Doan Meth odist POC GLUCOSE 2020-03-02 11:22:00 Coby Doan Meth odist POC GLUCOSE 2020-03-02 08:02:00 Coby Doan Meth odist HC COMPLETE BLD COUNT 2020-03-02 04:30:00 Amalia Oliveira [facility] W/AUTO DIFF [place] COMPREHENSIVE METABOLIC 2020-03-02 04:00:00 Amalia Oliveira [facility] PANEL [place] ESTIMATED GFR 2020-03-02 04:00:00 Amalia Oliveira Met hodist [place] POC GLUCOSE 2020-03-01 21:23:00 FrankiCobydeandre Lopez Meth odist POC GLUCOSE 2020-03-01 17:29:00 FrankiCoby Meth odist POC GLUCOSE 2020-03-01 12:07:00 FrankiCoby Meth odist POC GLUCOSE 2020-03-01 08:48:00 FrankiCoby Meth odist COMPREHENSIVE METABOLIC 2020-03-01 05:00:00 Kelin Borrego [facility] PANEL HC COMPLETE BLD COUNT 2020-03-01 05:00:00 Kelin Borrego [facility] W/AUTO DIFF MAGNESIUM LEVEL 2020-03-01 05:00:00 Kelin Borrego [facility] PHOSPHORUS LEVEL 2020-03-01 05:00:00 Diana Solomon hodist ESTIMATED GFR 2020-03-01 05:00:00 Kelin Borrego [facility] POC GLUCOSE 2020-02-29 21:16:00 Franki Coby Hudeandre Lopez Meth odist POC GLUCOSE 2020-02-29 17:38:00 Franki Coby Lopez Meth odist POC GLUCOSE 2020-02-29 16:28:00 Franki Coby Wong Lopez Meth odist POC GLUCOSE 2020-02-29 14:27:00 Coby Doan Judithdeandre Lopez Meth odist POC GLUCOSE 2020-02-29 12:03:00 Franki Coby Lopez Meth odist POC GLUCOSE 2020-02-29 11:28:00 Coby Doan Meth odist POC GLUCOSE 2020-02-29 07:50:00 Coby Doan Meth odist HC COMPLETE BLD COUNT 2020-02-29 04:45:00 Kelin Borrego W/AUTO DIFF T3, FREE 2020-02-29 04:45:00 Javier Aguirre COMPREHENSIVE METABOLIC 2020-02-29 04:00:00 Kelin Borrego PANEL MAGNESIUM LEVEL 2020-02-29 04:00:00 Kelin Borrego PHOSPHORUS LEVEL 2020-02-29 04:00:00 Diana Solomon hodist THYROID STIMULATING 2020-02-29 04:00:00 Javier Aguirre HORMONE T4, FREE 2020-02-29 04:00:00 Javier Aguirre T3 2020-02-29 04:00:00 Javier Aguirre ESTIMATED GFR 2020-02-29 04:00:00 Kelin Borrego POC GLUCOSE 2020-02-28 21:00:00 Coby Doan odist XR PICC CHEST PORTABLE 2020-02-28 19:19:06 Coby Doan on [facility] HC CVL PICC INSERT 5 YRS 2020-02-28 19:14:08 Regi Feng OR > W/RS&I AND IMG GUID HC CATH DUAL LUMEN PICC # 2020-02-28 19:14:08 Regi Feng [id number] POC GLUCOSE 2020-02-28 18:13:00 Coby Doan Meth odist POC GLUCOSE 2020-02-28 11:17:00 Coby Doan Meth odist POC GLUCOSE 2020-02-28 08:17:00 Coby Doan Meth odist HC COMPLETE BLD COUNT 2020-02-28 04:45:00 Kelin Borrego W/AUTO DIFF COMPREHENSIVE METABOLIC 2020-02-28 04:00:00 Kelin Borrego PANEL MAGNESIUM LEVEL 2020-02-28 04:00:00 Kelin Borrego ESTIMATED GFR 2020-02-28 04:00:00 Kelin Borrego POC GLUCOSE 2020-02-27 21:13:00 Coby Doan Meth odist POC GLUCOSE 2020-02-27 17:10:00 Coby Doan Meth odist XR CHEST 1 VW PORTABLE 2020-02-27 15:10:51 Kelin Borrego POTASSIUM LEVEL 2020-02-27 12:50:00 Kelin Borrego POC GLUCOSE 2020-02-27 12:24:00 Coby Doan Meth odist POC GLUCOSE 2020-02-27 07:37:00 Coby Doan Meth odist HC COMPLETE BLD COUNT 2020-02-27 04:50:00 Kelin Borrego W/AUTO DIFF T3, FREE 2020-02-27 04:50:00 Javier Aguirre BASIC METABOLIC PANEL 2020-02-27 04:00:00 Kelin Borrego MAGNESIUM LEVEL 2020-02-27 04:00:00 Kelin Borrego THYROID STIMULATING 2020-02-27 04:00:00 Javier Aguirre HORMONE T4, FREE 2020-02-27 04:00:00 Javier Aguirre ESTIMATED GFR 2020-02-27 04:00:00 Kelin Borrego POC GLUCOSE 2020-02-26 21:08:00 Coby Doan Meth odist POC GLUCOSE 2020-02-26 17:22:00 Coby Doan Meth odist POC GLUCOSE 2020-02-26 11:48:00 Coby Doan Meth odist [place] FLUOROSCOPY OF 2020-02-26 09:27:45 Ricardo Hampton DIAPHRAGM 2 VW CHEST Jeison POC GLUCOSE 2020-02-26 07:20:00 Coby Doan Meth odist HC COMPLETE BLD COUNT 2020-02-26 05:00:00 Kelin Borrego W/AUTO DIFF BASIC METABOLIC PANEL 2020-02-26 04:00:00 Kelin Borrego MAGNESIUM LEVEL 2020-02-26 04:00:00 Kelin Borrego TOTAL IRON BINDING 2020-02-26 04:00:00 Diana Solomon [facility]ist CAPACITY FERRITIN LEVEL 2020-02-26 04:00:00 Diana Solomon [facility] ESTIMATED GFR 2020-02-26 04:00:00 Kelin Borrego POC GLUCOSE 2020-02-25 21:07:[address] CHEST WO CONTRAST 2020-02-25 18:53:26 Kelin Borrego POC GLUCOSE 2020-02-25 17:20:00 Coby Doan [facility] POC GLUCOSE 2020-02-25 11:43:00 Coby Doan [facility] POC GLUCOSE 2020-02-25 07:29:00 Coby Doan [facility] [place] HC COMPLETE BLD COUNT 2020-02-25 05:30:00 Kelin Borrego W/AUTO DIFF BASIC METABOLIC PANEL 2020-02-25 04:00:00 Kelin Borrego MAGNESIUM LEVEL 2020-02-25 04:00:00 Kelin Borrego PHOSPHORUS LEVEL 2020-02-25 04:00:00 Diana Solomon [place] URIC ACID LEVEL 2020-02-25 04:00:00 Diana Solomon odist ESTIMATED GFR 2020-02-25 04:00:00 Kelin Borrego URINE CULTURE 2020-02-25 02:23:00 Diana Solomon [facility] [place] URINALYSIS SCREEN AND 2020-02-25 01:00:00 Diana Solomon MICROSCOPY, WITH REFLEX TO CULTURE CBC WITH PLATELET AND 2020-02-24 21:30:00 Kelin Borrego DIFFERENTIAL HEMOGLOBIN A1C 2020-02-24 21:30:00 Kelin Borrego MANUAL DIFFERENTIAL 2020-02-24 21:30:00 Kelin Borrego ECG 12-LEAD 2020-02-24 21:29:31 Elmo Kelin [facility] POC GLUCOSE 2020-02-24 21:24:00 Coby Doan [facility] XR CHEST 1 VW PORTABLE 2020-02-24 21:12:00 Kelin Borrego [facility] BASIC METABOLIC PANEL 2020-02-24 18:42:00 Kelin Borrego [facility] MAGNESIUM LEVEL 2020-02-24 18:42:00 Elmo Kelin Che ESTIMATED GFR 2020-02-24 18:42:00 Elmo Kelin Che POC GLUCOSE 2020-02-24 15:57:00 Coby Doan [facility] CV RIGHT HEART CATH 2020-02-24 15:14:37 Coby Doan POC GLUCOSE 2020-02-24 11:01:00 Coby Doan [facility] COVID-19 QUALITATIVE PCR 2020-02-23 16:18:00 Coby Doan [facility] COMPREHENSIVE METABOLIC 2020-02-21 09:39:00 Coby Doan [facility] PANEL NT-PROBNP 2020-02-21 09:39:00 Coby Doan [facility] CBC WITH PLATELET AND 2020-02-21 09:39:00 Coby Doan n [facility] DIFFERENTIAL BASIC METABOLIC PANEL 2020-02-02 15:38:00 Paloma Perez [facility] TROPONIN 2020-01-25 16:00:00 Kaycee Sparks [facility] [place] NT-PROBNP 2020-01-25 16:00:00 Kaycee Sparks [facility] [place] SERUM ELECTROPHORESIS 2020-01-25 16:00:00 Kaycee Sparks [facility] [place] KAPPA LAMBDA FREE LIGHT 2020-01-25 16:00:00 Kaycee Sparks CHAIN WITH RATIO [place] IMMUNOFIXATION, SERUM 2020-01-25 16:00:00 Darvin Sawant on [facility] CV PYP SCAN FOR CARDIAC 2020-01-25 12:50:46 Amalia Oliveira [facility] AMYLOIDOSIS [place] POC GLUCOSE 2020-01-25 11:35:00 Darvin Sawant [facility] POC GLUCOSE 2020-01-25 08:03:00 Darvin [facility] POTASSIUM LEVEL 2020-01-25 05:05:00 Darvin Saw[facility] BASIC METABOLIC PANEL 2020-01-25 03:47:00 Darvin [facility] ESTIMATED GFR 2020-01-25 03:47:00 Darvin Sawant [facility] HC COMPLETE BLD COUNT 2020-01-25 02:23:00 Darvin Sawant [facility] W/AUTO DIFF Natvarlal POC GLUCOSE 2020-01-24 21:12:00 Darvin Sawant [facility] POC GLUCOSE 2020-01-24 17:44:00 Darvin Sawant [facility] TTE COMPLETE, W CONTRAST, 2020-01-24 13:50:[address] [facility] W DOPPLER ([id number]) POC GLUCOSE 2020-01-24 12:10:00 Darvin Sawant [facility] BASIC METABOLIC PANEL 2020-01-24 02:55:00 Darvin Sawant [facility] HC COMPLETE BLD COUNT 2020-01-24 02:55:00 Darvin Sawant [facility] W/AUTO DIFF Natvarlal ESTIMATED GFR 2020-01-24 02:55:00 Darvin Sawant [facility] POC GLUCOSE 2020-01-23 23:23:00 Darvin Sawant [facility] POC GLUCOSE 2020-01-23 21:05:00 Darvin Sawant [facility] POC GLUCOSE 2020-01-23 17:45:00 Darvin Sawant [facility] POC GLUCOSE 2020-01-23 11:56:00 Darvin Sawant [facility] POC GLUCOSE 2020-01-23 07:56:00 Darvin Sawant [facility] BASIC METABOLIC PANEL 2020-01-23 04:00:00 Darvin Sawant [facility] MAGNESIUM LEVEL 2020-01-23 04:00:00 Darvin Sawant [facility] ESTIMATED GFR 2020-01-23 04:00:00 Darvin Sawant [facility] POC GLUCOSE 2020-01-23 01:05:00 Darvin Sawant [facility] POC GLUCOSE 2020-01-22 21:15:00 Darvin Sawant [facility] POC GLUCOSE 2020-01-22 16:23:00 Darvin Sawant [facility] POC GLUCOSE 2020-01-22 11:31:00 Darvin Sawant [facility] POC GLUCOSE 2020-01-22 08:11:00 Darvin Sawant [facility] BASIC METABOLIC PANEL 2020-01-22 01:41:00 Savana Jorgeleonardo [facility] HC COMPLETE BLD COUNT 2020-01-22 01:41:00 Savana Jorgeleonardo [facility] W/AUTO DIFF Natvarlal B NATRIURETIC PEPTIDE 2020-01-22 01:41:00 John Arriaza [facility] MAGNESIUM LEVEL 2020-01-22 01:41:00 John Arriaza [facility] ESTIMATED GFR 2020-01-22 01:41:00 John Arriaza [facility] URINE CULTURE 2020-01-21 23:56:00 John Arriaza [facility] POC GLUCOSE 2020-01-21 22:07:00 Darvin Sawant [facility] URINALYSIS SCREEN AND 2020-01-21 21:20:00 John Arriaza [facility] MICROSCOPY, WITH REFLEX TO CULTURE POC GLUCOSE 2020-01-21 17:49:00 SawantDarvin forrest [facility] US RENAL 2020-01-21 15:50:00 SawantDarvin forrest [facility] NM LUNG PERFUSION IMAGING 2020-01-21 15:03:03 Savana Darvin Melodie sampson [facility] B NATRIURETIC PEPTIDE 2020-01-21 12:30:00 Jose Arriazaena Desmond culver [facility] PARTIAL THROMBOPLASTIN 2020-01-21 12:29:00 Sujatha Levine [place] [facility] TIME (PTT) Imarendenewe POC GLUCOSE 2020-01-21 12:28:00 Darvin Sawant [facility] MAGNESIUM LEVEL 2020-01-21 10:08:00 John Arriaza [facility] TROPONIN 2020-01-21 08:45:00 Kaycee Jauregui [facility] Bell POC GLUCOSE 2020-01-21 08:36:00 Darvin Sawant [facility] POC GLUCOSE 2020-01-21 06:14:00 Darvin Sawant [facility] PARTIAL THROMBOPLASTIN 2020-01-21 04:50:00 Sujatha Levine [place] [facility] TIME (PTT) Imarendenewe HC COMPLETE BLD COUNT 2020-01-21 04:50:00 Alejandro Paul on [facility] W/AUTO DIFF POC GLUCOSE 2020-01-21 04:43:00 Roseann Brewster [facility] BASIC METABOLIC PANEL 2020-01-21 04:30:00 Alejandro Paul on [facility] ESTIMATED GFR 2020-01-21 04:30:00 Alejandro Paul [facility] US DUPLEX VENOUS LOWER 2020-01-21 02:33:00 Alejandro Paul [facility] EXTREMITY BILATERAL POC GLUCOSE 2020-01-21 02:16:00 Roseann Brewster [facility] BASIC METABOLIC PANEL 2020-01-21 01:19:00 SimoneMary [facility] ESTIMATED GFR 2020-01-21 01:19:00 Roseann Brewster [facility] MAGNESIUM LEVEL 2020-01-21 00:54:00 Kaycee Jauregui [facility] PHOSPHORUS LEVEL 2020-01-21 00:54:00 Kaycee Jauregui [facility] Bell BASIC METABOLIC PANEL 2020-01-21 00:54:00 Kaycee Jauregui [facility] Bell TROPONIN 2020-01-21 00:54:00 Kaycee Jaureguiodist Luu ESTIMATED GFR 2020-01-21 00:54:00 AdelineRoseann zheng Amelsi Lopez [facility] HC COMPLETE BLD COUNT 2020-01-21 00:40:00 Kaycee Jauregui [facility] W/AUTO DIFF Bell D-DIMER 2020-01-21 00:40:00 Kaycee Jauregui Lina [facility] Luu BETA HYDROXYBUTYRATE 2020-01-20 23:59:00 Sudarshan Herrera [facility] Villarmia B NATRIURETIC PEPTIDE 2020-01-20 22:20:00 Alejandro Paul [facility] XR CHEST 1 VW PORTABLE 2020-01-20 21:28:46 Alejandro Paul [facility] ARTERIAL BLOOD GAS 2020-01-20 21:00:00 Alejandro Paul D-DIMER 2020-01-20 21:00:00 Alejandro Paul [facility] CHEST WO CONTRAST 2020-01-20 20:31:08 Alejandro Paul [facility] COVID-19 QUALITATIVE PCR 2020-01-20 19:50:00 Alejandro Paul LA CRITICAL CARE, E/M 2020-01-20 19:48:26 Alejandro Paulist 30-74 MINUTES ECG ED PRELIMINARY 2020-01-20 19:48:26 Alejandro Paul INTERPRETATION HC COMPLETE BLD COUNT 2020-01-20 19:45:00 Alejandro Paul [facility] W/AUTO DIFF PROTHROMBIN TIME WITH INR 2020-01-20 19:45:00 Alejandro Paul PARTIAL THROMBOPLASTIN 2020-01-20 19:45:00 Alejandro Paul [facility] TIME (PTT) COMPREHENSIVE METABOLIC 2020-01-20 19:45:00 Alejandro Paul [facility] PANEL TROPONIN 2020-01-20 19:45:00 Alejandro Paul [facility] B NATRIURETIC PEPTIDE 2020-01-20 19:45:00 Alejandro Paul [facility] ESTIMATED GFR 2020-01-20 19:45:00 PaulAlejandro mart [facility] ECG 12-LEAD 2020-01-20 18:58:57 PaulAlejandro mart [facility] MAGNESIUM LEVEL 2019-12-31 14:50:00 Coby Doan [facility] B NATRIURETIC PEPTIDE 2019-12-31 14:50:00 Coby Doan [facility] HC COMPLETE BLD COUNT 2019-12-31 14:50:00 Coby Doan [facility] W/AUTO DIFF COMPREHENSIVE METABOLIC 2019-12-31 14:50:00 Coby Dona [facility] PANEL ESTIMATED GFR 2019-12-31 14:50:00 Coby Doan Meth [facility]ist ECG 12-LEAD 2019-12-31 13:18:12 Coby Doan Meth [facility]ist POC GLUCOSE 2019-12-18 11:27:00 Mercy Storm ethodist POC GLUCOSE 2019-12-18 07:45:00 Mercy Storm [facility]ist POC GLUCOSE 2019-12-18 07:20:00 Mercy Storm [facility]ist POC GLUCOSE 2019-12-17 21:46:00 Mercy Storm [facility] POC GLUCOSE 2019-12-17 18:15:00 Mercy Storm [facility] POC GLUCOSE 2019-12-17 15:46:00 Mercy Storm [facility]ist URINE CULTURE 2019-12-17 14:29:00 Mercy Storm [facility] LA AN ELECTIVE 2019-12-17 14:25:01 Rasheeda Price SUPRAGLOTTIC AIRWAY CYSTOSCOPY, WITH 2019-12-17 14:06:00 Mercy Storm PHOTOSELECTIVE VAPORIZATION OF PROSTATE, USING LASER POC GLUCOSE 2019-12-17 13:51:00 Mercy Storm [facility]ist POC GLUCOSE 2019-12-17 12:37:00 Mercy Storm [facility]ist URINALYSIS SCREEN AND 2019-12-17 12:10:00 Mercy Storm MICROSCOPY, WITH REFLEX TO CULTURE CV RIGHT HEART CATH 2019-11-18 10:49:20 Coby Doan [facility] POC GLUCOSE 2019-11-18 09:25:00 Chris Gan [facility] BASIC METABOLIC PANEL 2019-11-16 11:08:00 Radha Ganletha see [facility] CBC WITH PLATELET AND 2019-11-16 11:08:00 Kelvin Radhaletha see [facility] DIFFERENTIAL POC GLUCOSE 2019-09-09 11:32:00 Alejandro Kruse [facility] POC GLUCOSE 2019-09-09 08:09:00 Alejandro Kruse [facility] HC COMPLETE BLD COUNT 2019-09-09 05:00:00 Alejandro Kruse on [facility] W/AUTO DIFF B NATRIURETIC PEPTIDE 2019-09-09 05:00:00 Alejandro Kruse on [facility] MAGNESIUM LEVEL 2019-09-09 04:00:00 Alejandro Kruse [facility] COMPREHENSIVE METABOLIC 2019-09-09 04:00:00 Thiago Reyes [facility] PANEL ESTIMATED GFR 2019-09-09 04:00:00 Alejandro Kruse [facility] POC GLUCOSE 2019-09-08 21:19:00 Alejandro Kruse [facility] POC GLUCOSE 2019-09-08 17:27:00 Alejandro Kruse [facility] POC GLUCOSE 2019-09-08 12:01:00 Alejandro Kruse [facility] POC GLUCOSE 2019-09-08 08:17:00 Alejandro Kruse [facility] HC COMPLETE BLD COUNT 2019-09-08 05:00:00 Alejandro Kruse on [facility] W/AUTO DIFF B NATRIURETIC PEPTIDE 2019-09-08 05:00:00 Alejandro Kruse on [facility] MAGNESIUM LEVEL 2019-09-08 04:00:00 Alejandro Kruse [facility] COMPREHENSIVE METABOLIC 2019-09-08 04:00:00 Thiago Reyes [facility] PANEL URIC ACID LEVEL 2019-09-08 04:00:00 Alejandro Kruse [facility] ESTIMATED GFR 2019-09-08 04:00:00 Alejandro Kruse [facility] POC GLUCOSE 2019-09-07 23:20:00 Alejandro Kruse [facility] POC GLUCOSE 2019-09-07 21:29:00 Alejandro Kruse [facility] POC GLUCOSE 2019-09-07 18:01:00 Alejandro Kruse [facility] POC GLUCOSE 2019-09-07 11:57:00 Alejandro Kruse [facility] POC GLUCOSE 2019-09-07 08:08:00 Alejandro Kruse [facility] LACTIC ACID LEVEL 2019-09-07 06:03:00 Thiago Reyes [facility] HC COMPLETE BLD COUNT 2019-09-07 04:20:00 Alejandro Kruse on [facility] W/AUTO DIFF B NATRIURETIC PEPTIDE 2019-09-07 04:20:00 Alejandro Kruse on [facility] MAGNESIUM LEVEL 2019-09-07 04:00:00 Alejandro Kruse [facility] COMPREHENSIVE METABOLIC 2019-09-07 04:00:00 Thiago Reyes [facility] PANEL THYROID STIMULATING 2019-09-07 04:00:00 Javier Aguirre [facility] HORMONE T4, FREE 2019-09-07 04:00:00 Javier Aguirre [facility] T3 2019-09-07 04:00:00 Javier Aguirre [facility] ESTIMATED GFR 2019-09-07 04:00:00 Alejandro Kruse [facility] BILIRUBIN DIRECT 2019-09-07 04:00:00 Alejandro Kruse [facility] POC GLUCOSE 2019-09-06 21:27:00 Alejandro Kruse [facility] POC GLUCOSE 2019-09-06 17:21:00 Alejnadro Kruse [facility] POC GLUCOSE 2019-09-06 12:26:00 Alejandro Kruse [facility] POC GLUCOSE 2019-09-06 08:10:00 Alejandro Kruse [facility] BASIC METABOLIC PANEL 2019-09-06 04:55:00 Alejandro Kruse on [facility] MAGNESIUM LEVEL 2019-09-06 04:55:00 Alejandro Kruse [facility] B NATRIURETIC PEPTIDE 2019-09-06 04:55:00 Alejandro Kruse on [facility] ESTIMATED GFR 2019-09-06 04:55:00 Alejandro Kruse [facility] POC GLUCOSE 2019-09-05 21:07:00 Alejandro Kruse [facility] POC GLUCOSE 2019-09-05 17:38:00 Alejandro Kruse [facility] POC GLUCOSE 2019-09-05 12:20:00 Alejandro Kruse [facility] XR CHEST 1 VW PORTABLE 2019-09-05 09:54:15 Reginaldo Daltonramy Calderon Melodie braden [facility] POC GLUCOSE 2019-09-05 07:28:00 Alejandro Kruse [facility] BASIC METABOLIC PANEL 2019-09-05 04:40:00 Alejandro Kruse on [facility] MAGNESIUM LEVEL 2019-09-05 04:40:00 Alejandro Kruse [facility] B NATRIURETIC PEPTIDE 2019-09-05 04:40:00 Alejandro Kruse on [facility] ESTIMATED GFR 2019-09-05 04:40:00 Alejandro Kruse [facility] POC GLUCOSE 2019-09-04 21:16:00 Alejandro Kruse [facility] POC GLUCOSE 2019-09-04 18:08:00 Alejandro Kruse [facility] POC GLUCOSE 2019-09-04 12:46:00 Alejandro Kruse [facility] POC GLUCOSE 2019-09-04 09:20:00 Alejandro Kruse [facility] NM MYOCARDIAL PERFUSION 2019-09-04 07:58:53 Familia Last [facility] IMAGING W TL-201 VIABILITY TROPONIN 2019-09-04 04:00:00 Alejandro Kruse [facility] HC COMPLETE BLD COUNT 2019-09-04 04:00:00 Alejandro Kruse on [facility] W/AUTO DIFF BASIC METABOLIC PANEL 2019-09-04 04:00:00 Alejandro Kruse on [facility] MAGNESIUM LEVEL 2019-09-04 04:00:00 Alejandro Kruse [facility] B NATRIURETIC PEPTIDE 2019-09-04 04:00:00 Alejandro Kruse on [facility] THYROID STIMULATING 2019-09-04 04:00:00 Alejandro Kruse [facility] HORMONE T4, FREE 2019-09-04 04:00:00 Alejandro Kruse [facility] HEPATIC FUNCTION PANEL 2019-09-04 04:00:00 Be Curran [facility] ESTIMATED GFR 2019-09-04 04:00:00 Be Curran ethodist POC GLUCOSE 2019-09-03 21:15:00 Alejandro Kruse [facility] POC GLUCOSE 2019-09-03 17:40:00 Alejandro Kruse [facility] POC GLUCOSE 2019-09-03 11:55:00 Alejandro Kruse [facility] POC GLUCOSE 2019-09-03 08:38:00 Alejandro Kruse [facility] POC GLUCOSE 2019-09-03 05:12:00 Alejandro Kruse [facility] HC COMPLETE BLD COUNT 2019-09-03 04:00:00 Susie Torrez on [facility] W/AUTO DIFF COMPREHENSIVE METABOLIC 2019-09-03 04:00:00 Susie Torrez [facility] PANEL ESTIMATED GFR 2019-09-03 04:00:00 Susie Torrez [facility] POC GLUCOSE 2019-09-02 23:10:00 Alejandro Kruse [facility] TTE COMPLETE, WO CONTRAST, 2019-09-02 22:26:00 Familia Last [facility] W DOPPLER ([id number]) POC GLUCOSE 2019-09-02 17:17:00 Alejandro Kruse [facility] CV LEFT HEART CATH 2019-09-02 16:56:44 Sean Rico ethodist ESTIMATED GFR 2019-09-02 13:51:00 Sean Rico [facility] POC PANEL 2019-09-02 13:51:00 Sean Rico [facility] POC GLUCOSE 2019-09-02 13:11:00 Sean Rico [facility] ECG PRE/POST OP 2019-09-02 13:02:10 Sean Rico [facility] XR CHEST 2 VW 2019-07-27 16:29:46 Sean Rico [facility] ECG 12-LEAD 2019-07-27 13:33:16 Marcia Luz B NATRIURETIC PEPTIDE 2019-06-14 15:11:00 Marcia Luz CBC WITH PLATELET AND 2019-06-14 15:11:00 Marcia Luz DIFFERENTIAL COMPREHENSIVE METABOLIC 2019-06-14 15:11:00 Marcia Luz PANEL T4, FREE 2019-06-14 15:11:00 Marcia Luz THYROID STIMULATING 2019-06-14 15:11:00 Marcia Luz HORMONE HEMOGLOBIN A1C 2019-06-14 15:11:00 Marcia Luz Plan of Care Planned Activity Planned Date Details Comments Source Future Scheduled Test 2021-05-08 DIABETIC FOOT EXAM John Che 00:00:00 [code = DIABETIC FOOT EXAM] Future Scheduled Test 2020-07-29 DIABETES: RETINAL H sampson Che 00:00:00 EYE EXAM [code = DIABETES: RETINAL EYE EXAM] Future Scheduled Test 2016-12-23 SHINGLES VACCINES H sampson Che 00:00:00 (#2) [code = SHINGLES VACCINES (#2)] Future Appointment 2020-06-06 Adia Gramajo MD 09:50:[address] [place] [address]; [address] [place] [address] Future Appointment 2020-06-06 Adia Gramajo MD 09:50:[address] [place] [address]; [address] [address] Encounters Start End Encounter Admission Attending Care Care Encounter Source Date/Time Date/Time Type Type Clinicians Facility Department ID 2019-11-18 Outpatient [facility] 08:31:52 2020-05-08 2020-05-18 Inpatient KEENAN, [facility] [id number] [place] 00:00:00 00:00:00 ANETTE [address] 2020-05-05 2020-05-05 Outpatient COYB DOAN [facility] [id number] [place] 00:00:00 00:00:[address] 2020-05-03 2020-05-03 Outpatient JOSE ARMANDO [facility] [id number] [place] 00:00:00 00:00:00 MARCIA [address] 2020-04-26 2020-04-26 Outpatient [place], [facility] [id number] [place] 00:00:00 00:00:00 JERI [address] 2020-04-24 2020-04-24 Outpatient COBY DOAN [facility] [id number] [place] 00:00:00 00:00:[address] 2020-04-14 2020-04-14 Outpatient COBY DOAN [facility] [id number] [place] 00:00:00 00:00:[address] 2020-03-17 2020-03-17 Outpatient COBY DOAN [facility] [id number] [place] 00:00:00 00:00:[address] 2020-03-09 2020-03-09 Outpatient DELAFLOR-SA [facility] [id number] [place] 00:00:00 00:00:00 NTAANA, [address] 2020-02-24 2020-03-02 Inpatient COBY DOAN [facility] [id number] [place] 00:00:00 00:00:[address] 2020-02-23 2020-02-23 Outpatient COBY DOAN [facility] [id number] [place] 00:00:00 00:00:[address] 2020-02-11 2020-02-11 Outpatient COBY DOAN [facility] [id number] [place] 00:00:00 00:00:[address] 2020-02-04 2020-02-04 Outpatient JOSE ARMANDO [facility] [id number] [place] 00:00:00 00:00:00 MARCIA [address] 2020-01-20 2020-01-25 Inpatient SAVANA, [facility] [id number] [place] 00:00:00 00:00:00 AMITKUMAR [address] 2020-01-12 2020-01-12 Outpatient ALBERT CHENRY [facility] [id number] [place] 00:00:00 00:00:[address] 2019-12-31 2019-12-31 Outpatient COBY DOAN [facility] [id number] [place] 00:00:00 00:00:[address] 2019-12-31 2019-12-31 Outpatient COBY DOAN [facility] [id number] [place] 00:00:00 00:00:[address] 2019-12-27 2019-12-27 Outpatient RICO [facility] [id number] [place] 00:00:00 00:00:00 SEAN [address] 2019-12-17 2019-12-18 Outpatient BRITTANY, [facility] [id number] [place] 00:00:00 00:00:00 MERCY [address] 2019-11-18 2019-11-18 Outpatient KELVIN, [facility] [id number] [place] 00:00:00 00:00:00 CHRIS [address] 2019-11-04 2019-11-04 Outpatient JOSE ARMANDO, [facility] [id number] [place] 00:00:00 00:00:00 MARCIA [address] 2019-10-19 2019-10-19 Outpatient JOSE ARMANDO, [facility] [id number] [place] 00:00:00 00:00:00 MARCIA [address] 2019-09-17 2019-09-17 Outpatient COBY DOAN [facility] [id number] [place] 00:00:00 00:00:[address] 2019-09-02 2019-09-09 Inpatient AIXA, [facility] 060 [id number] [place] 00:00:00 00:00:00 ALEJANDRO [address] Results Test Description Test Time Test Comments Results Result Comments Source POC glucose 2020-05-18 08:15:23 Test Item Value Reference Range Interpretation Comme nts POC glucose (test code = 175 mg/dL 65-99 H Ope rator Name: Dez VazquezLucia [id number]) ID: [id number] hartable: [facility] Notified store stocker Interpretation (test code = Abnormal 25035-5) [facility] with platelet and [id number] 06:11:15 Test Item Value Reference Range Interpretation Comments WBC (test code = 69286-1) 7.39 4.50- 11.00 k/uL RBC (test code = 62980-0) 4.58 m/uL 4.4-6 HGB (test code = 718-7) 12.1 g/dL 14-18 L HCT (test code = 4544-3) 38.1 % 41-51 L MCV (test code = 787-2) 83.2 fL 82-100 MCH (test code = 785-6) 26.4 pg 27-34 L MCHC (test code = 786-4) 31.8 g/dL 31-37 RDW - SD (test code = 51.8 fL 37-55 90276-6) MPV (test code = 80555-7) 10.0 fL 8.8-13.2 Platelet count (test code 210 150- 400 k/uL = 36519-9) Nucleated RBC (test code 0.00 /100 WBC = 54243-0) Neutrophils (test code = 64.1 % 39-69 35142-3) Lymphocytes (test code = 24.6 % 25-45 L 13349-4) Monocytes (test code = 8.1 % 0-10 47484-9) Eosinophils (test code = 2.3 % 0-5 76539-0) Basophils (test code = 0.5 % 0-1 50323-9) Immature granulocytes 0.4 % 0-1 "Immat ure (test code = 36372-7) granul ocytes" (promyelocytes, myelocytes, metamyelocytes) Lab Interpretation (test Abnormal code = 86426-3) [facility] [id number] 06:08:48 Test Item Value Reference Range Interpretation Comments Sodium (test code = 2951-2) 133 135- 148 mEq/L L Potassium (test code = 2823-3) 4.3 3.5- 5.0 mEq/L Chloride (test code = 2075-0) 93 98- 112 mEq/L L CO2 (test code = 2027-9) 25 24- 31 mEq/L Anion gap (test code = 18554-2) 15@ANIO 7- 15 mEq/L BUN (test code = 3094-0) 36 mg/dL 8-23 H Creatinine (test code = 2160-0) 2.23 mg/dL 0.7-1.2 H Glucose (test code = 2345-7) 166 mg/dL 65-99 H Calcium (test code = 03912-4) 8.9 mg/dL 8.8-10.2 Lab Interpretation (test code = Abnormal 86327-5) John [facility] [id number] 06:08:45 Test Item Value Reference Range Interpretation Comments Magnesium (test code = 36617-4) 2.0 mg/dL 1.6-2.4 John MethodistEstimated [id number] 06:08:45 Test Item Value Reference Range Interpretation Comments Estimated GFR (test 26 mL/min/1.73 m2 Evelina mendoza Units code = 5488) InterpretationG 1 >=90 [place] or highG2 60-89 Mildly decrease dG3a 45-59 Mil dly to moderately decr egvaxZ2j 30-44 Moderately to s everely decreasedG4 15-29 Severe ly decreasedG5 <15 Kidney demond lureThe eGFR was calcul ated using the [facility] Kidney Disease Epidemiology Collaboration ( CKD-EPI) equation. Interpretation is based on recommendati ons of the National dney [facility]-Kidn ey Disease Outcome s Quality Initiat kelly (NKF-KDOQI) pub lished in 2013. Lab Interpretation Abnormal (test code = 11600-7) Lopez MethodistOsmolality, [id number] 18:47:24 Test Item Value Reference Range Interpretation Comments Osmolality, urine 220 50- 1,400 mOsm/kg Resul ts double checked. (test code = 2695-5) Lopez MethodistCreatinine level, urine, [id number] 17:19:10 Test Item Value Reference Range Interpretation Comments Creatinine, urine, random (test code 30 mg/dL = 29190-2) Lopez MethodistSodium level, urine, [id number] 17:19:06 Test Item Value Reference Range Interpretation Comments Sodium, urine, random (test code = 69 mEq/L 97301-9) Lopez MethodistOsmolality, [id number] 16:30:29 Test Item Value Reference Range Interpretation Comments Osmolality (test code = 300 275- 295 mOsm/kg H Results double 2692-2) checked. Lab Interpretation (test Abnormal code = 96737-2) Lopez MethodistSodium [id number] 15:42:56 Test Item Value Reference Range Interpretation Comments Sodium (test code = 2951-2) 141 135- 148 mEq/L Lopez MethodistB natriuretic [id number] 09:47:36 Test Item Value Reference Range Interpretation Comments BNP (test code = 55193-6) 247 pg/mL 0-100 H Lab Interpretation (test code = Abnormal 02636-5) Lopez [facility]Com[facility] [id number] 09:44:04 Test Item Value Reference Range Interpretation Comments Sodium (test code = 127 135- 148 mEq/L L 2951-2) Potassium (test code = 4.1 3.5- 5.0 mEq/L 2823-3) Chloride (test code = 90 98- 112 mEq/L L 2074-0) CO2 (test code = 2027-) 26 24- 31 mEq/L Anion gap (test code = 11@ANIO 7- 15 mEq/L 60238-7) BUN (test code = 3094-0) 33 mg/dL 8-23 H Creatinine (test code = 2.32 mg/dL 0.7-1.2 H 2160-0) Glucose (test code = 176 mg/dL 65-99 H 2345-7) Calcium (test code = 8.6 mg/dL 8.8-10.2 L 25471-9) Protein (test code = 7.0 g/dL 6.3-8.3 -[place] n 2885-2) 4.6-7.0 g/dL1 week 4.4-7 .6 g/dL7 months-1y ear 5.1-7 .3 g/dL1-2 years 5.6-7 .5 g/dL>3 years 6.0-8 .0 g/aH33-051 6.3-8 .3 g/dL Albumin (test code = 3.0 g/dL 3.5-5 L 1751-7) A/G ratio (test code = 0.8 0.7-3.8 1759-0) Alkaline phosphatase 83 U/L 40-129 (test code = 6768-6) AST (test code = 1920-8) 27 U/L 10-50 ALT (test code = 1742-6) 32 U/L 5-50 Total bilirubin (test 0.3 mg/dL 0-1.2 code = 1974-2) Lab Interpretation (test Abnormal code = 06648-6) [place] MethodistLactic acid [id number] 09:41:46 Test Item Value Reference Range Interpretation Comments Lactic acid (test code = 20736-6) 1.5 mmol/L 0.5-2.2 [place] MethodistPartial thromboplastin time, [id number] 06:04:37 Test Item Value Reference Range Interpretation Comments PTT (test code = 56.0 23.0- 36.0 sec H PTT thera peutic range 96368-8) for unfractiona julien heparin is61.0- 112.0 seconds which corresponds to Anti-Xa0.3-0.7 U/ml. Lab Interpretation Abnormal (test code = 77903-4) John CheBlood culture, aerobic & [id number] 16:33:07 Test Item Value Reference Range Interpretation Comments Blood culture No growth Specimen isolate (test after 5 days InformationSpe [facility] code = 600-7) of Source: BloodS pecimen incubation. Site: Forearm, left [place] [facility] 3 [id number] 16:25:33Hm Interface, Radiology Results - 05/15/2020 4:28 PM CSTPROCEDURE: NM BONE SCAN 3 PHASEIND ICATION: Evaluate for osteomyelitis of the left foot. COMPARISON: X-ray left foot dated May. TECHNIQUE: 25 millicuries of [id number] were administered IV, followed by blood flow and blood pool imaging of the bilateral feet. Three to five hours later, delayed imaging was performed. FINDINGS: Blood flow and blood pool images demonstrate mild hyperemia to the distal left foot. Delayed images demonstrate focal abnormal activity in the left second distal phalanx, correlating witherosive changes noted on comparison x-ray. 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.[facility]-[id number] and approved by president/fellow: Daniela Morgan, Alejandro Ornelas MD, personally reviewed the images and resident's/fellow's findings and agree with the final report.[facility] BaptistPhosphorus [id number] 07:24:52 Test Item Value Reference Range Interpretation Comments Phosphorus (test code = 2777-1) 4.0 mg/dL 2.4-4.5 [place] BaptistCBC [id number] 04:32:55 Test Item Value Reference Range Interpretation Comments WBC (test code = 89290-2) 7.04 4.50- 11.00 k/uL RBC (test code = 99326-5) 4.28 m/uL 4.4-6 L HGB (test code = 718-7) 11.4 g/dL 14-18 L HCT (test code = 4544-3) 35.4 % 41-51 L MCV (test code = 787-2) 82.7 fL 82-100 MCH (test code = 785-6) 26.6 pg 27-34 L MCHC (test code = 786-4) 32.2 g/dL 31-37 RDW - SD (test code = 28222-8) 51.0 fL 37-55 MPV (test code = 79664-7) 10.6 fL 8.8-13.2 Platelet count (test code = 194 150- 400 k/uL 39467-9) Nucleated RBC (test code = 0.00 /100 WBC 50226-2) Lab Interpretation (test code = Abnormal 28204-0) [facility] Complete, (w Contrast, Strain and 3D if needed)2020-05-12 11:20:00Interface, Radiology Results In - 05/12/2020 11:21 AM [facility] Echocardiography Report [id number] [place] [address] Pat.Name: MARCELA ALCARAZ Pat.ID: [id number].Date: 05/11/2020 Refer.MD: ANETTE HUSSEIN MD Exam Time: 4:41:00 PM Study Type:Routine Echo Height: 71in Weight: 208lb BSA: 2.15 m2 Age: 10 1935,85Y Sex: MALE BP: 123/56 HR: 70 bpm Sonogrphr: DesireeLerma, RCS, RVS Pat. Stat.:Inpatient Room: [place] [address] Study Status:Final Echo Event ID:[id number] Order ID: [id number] Reason forStudy:CHF History / Clinical:Atrial Fibrillation, COPD, Coronary Artery DiseaseProcedures: 2D Echo, Colorflow Doppler, Portable, Intravenous LumasonContrastRace: C SUMMARY: Concentric left ventricular remodeling.LV EF is 35-39%; wall motion as n oted.RV systolic function is moderately depressed.Transcatheter AV Doppler velocity index is 0.69 (normal >0.50).LV relaxation is impaired. LV filling pressure is elevated.Estimated PA systolic pressure is 22-27 mmHg, assuming a mean RAP of5-10 mmHg. FINDINGS: ------LV: LV size is normal. Concentric left ventricular remodeling. LV EF is moderately depressed. Septalmotion is paradoxical. Estimated EF is 35-39%. Regional wall motion abnormalities present.RV: RV size is normal. RV systolic function is normal.LA: LA volume is mildly enlarged.RA: RA volume is difficult to assess.AO: Aortic root diameter is normal.RAJESH: No pericardial effusion.IAS: Interatrial septum bulges to the right, consistent with high LA pressure.AV: Bioprosthetic aortic valve. No evidence of paravalvular aortic regurg itation. Transcatheter AV Doppler velocity index is 0.69 (normal >0.50).MV: Mild to moderate thickening and calcification of mitral leaflets. Mild mitral regurgitation.PV: No structural PV abnormalities noted.TV: No structural TV abnormalities noted.Jean: LV relaxation is impaired. LV filling pressure is elevated.Other: Estimated PA systolic pressure is 22-27 mmHg, assuming a mean RAP of 5-10 mmHg. MEASUREMENTS: 2DParasternal [place] Ao An 2.5 cm LVPWd 1.3 cm Ao Rtd 2.8 cm Index 1.3 cm/m2 LA Ds 5.4 cm IVSd 1.1 cm RWT 0.54 LVIDd 4.8 cm Index 2.2 cm/m2 LV Mass 219 g (122-174)* LVIDs 3.8 cm LVM Index 102 g/m2 LV%fs 21 % LVOT 2.4 cm LA Sng Plane LA Area 26 cm2 (8.8-23.4)* LA Vol 86 ml Index 40 ml/m2 LA LngAx 7 cm RA Sng Plane RA Vol 32ml Index 15 ml/m2 RA LngAx 4.8 cm RA Area 13 cm2(8.3- 19.5)LVOT LVOT Area 4.5 cm2 DOPPLERAV For Flow/RAI AV pkVel 150 cm/s (100-170) AV AC/ET 0.32 AV mnVel 107 cm/s AV TVI 30 cm AV pkPG 8.9 mmHg AVpkAcRt 4158 cm/s2 AV Mean G 5.3 mmHg AV DeRt 541 cm/s2 AV ET 276 msec AV AC 87 msec (83- 118)Aortic Valve AV DI 0.69 AV Area 3.1 cm2 (3-5)LVOT For Flow LVOT TVI 20 cm LVOTmnPG 2.5 mmHg LVOTpkVel 119 cm/s HR 69 bpm LVOTpkPG 5.6 mmHg LVOT LVOT SV 92 ml LVOT CO 6.4 l/min SVi 43 ml/m2 LVOT CI 3 l/m/m2RA PA Sys Press TI yesica 208 cm/s SysP TV 27 mmHg RA Press 10 mmHg WALL MOTION: RESTING WALL MOTION: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 Mid Anterior, Mid Anteroseptal,Apical Anterior, Apical Septal, Apical Lateral, Apical bliss areakinetic. Basal Anterior, Basal Inferoseptal, Basal Inferior, BasalAnterolateral, Mid Inferoseptal, Mid Inferior, Mid Inferolateral,Apical Inferior bliss are hypokinetic. Normal wall motion in allother bliss.Wall Index = 2.4Signed 05/12/2020 11:20 Gian Rico M.D.[place] Jignaist duplex arterial lower gmyfrlsdf1884-88-29 21:19:00 Interface, Radiology Results In - 05/10/2020 9:19 PM [facility] Vascular Ultrasound Laboratory Lower Extremity Arterial Duplex Report [id number] [address]Lon.Name: MARCELA ALCARAZ Pat.ID: [id number] .Date: 05/10/2020 Refer.MD: CHRIS PONCE DPM Exam Time: 10:06:00 AM Study Type:LE Arterial Age: 10 1935,85Y Sex: MALE Sonogrphr: HENRI Valencia Pat. Stat.:Inpatient Room: [facility] Tape Vol: FE, [facility] [place] - 4: [address] Echo Event ID:[id number] Order ID: [id number] Reason for Study:Bilateral leg pain. CAD (CABG), Aortic stenosis, HTN,hyperlipiedemia, diabetic, CVA and CHF. Procedures: B-flowimaging, Colorflow, Grayscale/2D, Pulsed waveDopplerRace: C SUMMARY: DUPLEX SCAN OBSERVATIONS:RIGHT: There is diffused hard plaque in the common femoral, profundafemoral, superficial femoral, popliteal, posterior tibial, [place] anterior tibial arteries. There is >50% stenosis in the commonfemoral artery. There is a 50% stenosis in the distal superficialfemoral with monophasic Doppler signals. There is a 50-75% stenosis inthe mid-anterior tibial artery. LEFT: There is diffused hard plaque in the common femoral, profundafemoral, superficial femoral, popliteal, posterior tibial, [place] anterior tibial arteries. There is a 50% stenosis in the distalsuperficial femoral artery. PRELIMINARY FINDINGS:1. >50% stenosis in the right common femoral artery.2. 50% stenosis in the right distalsuperficial femoral withmonophasic Doppler signals. 3. 50-75% stenosis in the right mid-anterior tibial artery. 4. 50% stenosis in the left distal superficial femoral artery. 5. RAYMUNDO's and TBI's are in the ankle brachial index study done sameday. PHYSICIAN INTERPRETATION:Arterial duplex examination of both lower extremity demonstrates >50%stenosis in the right common femoral artery and <50% stenosis in theright distal superficial femoral with monophasic Doppler signals. 50-75% stenosis in the right mid-anterior tibial artery. >50% rightperoneal stenosis. Decreased BUSINESS CONSULT flow. >50% stenosis in the left distal superficial femoral artery. FINDINGS:----- MEASUREMENTS: DOPPLERRight MUSIC WRITER prox MUSIC WRITER prox PSV 409 cm/s Right Profunda Profunda PSV 144 cm/s Right SFA Dist SFA Dist PSV 76.3 cm/s Right SFA Mid SFA Mid PSV 76.3 cm/s Right SFA Prox SFA Prox PSV 105 cm/s Right Pop Dist Pop Dist PSV 52.9 cm/s Right Pop Prox Pop Prox PSV 34.3 cm/s Right BUSINESS CONSULT Dist BUSINESS CONSULT Dist PSV 21.5 cm/s Right BUSINESS CONSULT Mid BUSINESS CONSULT Mid PSV 18.8 cm/s Right BUSINESS CONSULT Prox BUSINESS CONSULT Prox PSV 26.7 cm/s BUSINESS CONSULT Prox PSV 26 cm/sRight Peroneal Mid Peroneal Mid PS 73.2 cm/s Right SEB Dist SEB Dist PSV 37.6 cm/s Left MUSIC WRITER Dist MUSIC WRITER Dist PSV 140 cm/s Left SFA Dist SFA Dist PSV 200 cm/s Left SFA Mid SFA Mid PSV 89.2 cm/s Left SFA Prox SFA Prox PSV 100 cm/s Left Pop DistPop Dist PSV 56.4 cm/s Left Pop Prox Pop Prox PSV 93.6 cm/s Pop Prox PSV 93 cm/sLeft BUSINESS CONSULT Dist BUSINESS CONSULT Dist PSV 69.3 cm/s Left BUSINESS CONSULT Mid BUSINESS CONSULT Mid PSV 51.5 cm/s Left BUSINESS CONSULT Prox BUSINESS CONSULT Prox PSV 72.5 cm/s Left Peroneal Mid Peroneal Mid PS 105 cm/s Left Peroneal Prox Peroneal Prox P 58 cm/s Left SEB Dist SEB Dist PSV 12.8 cm/s Left SEB Mid SEB Mid PSV 98.4 cm/s Left SEB Prox SEB Prox PSV 93.6 cm/s SEB Prox PSV 93 cm/sRight MUSIC WRITER Dist MUSIC WRITER Dist PSV 409 cm/s Left Profunda Profunda PSV 64 cm/s Right SFA Dist 1 SFA Dist 1 PSV 72 cm/s Left SFA Dist 1 SFA Dist 1 PSV 125 cm/s Right SFA Dist 2 SFA Dist 2 PSV 126 cm/s RightPTA Distal BUSINESS CONSULT Distal PSV 21 cm/s Left BUSINESS CONSULT Distal BUSINESS CONSULT Distal PSV 69 cm/s Right Peroneal Prox Peroneal Prox P 32 cm/s Right SEB Prox SEB Prox PSV 66 cm/s Right SEB Mid SEB Mid PSV 35 cm/s Right SEB Mid 2 SEB Mid 2 PSV 250 cm/s Right SEB Distal SEB Distal PSV 37 cm/s Left SEB Distal SEB Distal PSV 13 cm/s Signed 05/10/2020 09:19 PMZsolt MD Sheridan, RPVIMission Trail [facility] ankle brachial [id number] 16:12:00 Interface, Radiology Results In - 05/10/2020 4:12 PM [facility] Vascular Diagnostic Laboratory Ankle/Brachial Index Report [id number] [address]Plo.Name: MARCELA ALCARAZ Pat.ID: [id number] .Date: 05/10/2020 Refer.MD: CHRIS PONCE MD Exam Time: 10:45:00 PM Study Type:Ankle/Brachial Index Age: 10 1935,85Y Sex: MALE Sonogrphr: HENRI Valencia Pat. Stat.:Inpatient Room: 9 TapeVol: FE, CPT - 4: [address] Echo Event ID:[id number] Order ID: [id number] Reason for Study:RAYMUNDO; Bilateral leg pain. CAD (CABG), Aortic stenosis,HTN, hyperlipiedemia, diabetic, CVA and CHF. Procedures: Ankle/brachial pressures, Digit pressures, PPG waveformtracingRace: C SUMMARY:-- DOPPLER SIGNALS / ANALOG WAVEFORMS: DOPPLER SIGNALS ANALOG WAVEFORMSARTERY RIGHT LEFT RIGHT LEFT Posterior Tibial Abnormal Abnormal Abnormal AbnormalDorsalis Pedis Abnormal Abnormal Abnormal AbnormalSEGMENTAL PRESSURE (mmHg): RIGHT LEFT Brachial PICC 152 Ankle DP 96 119 Ankle PT 101 152 Great Toe Unable to obtain 96 ANKLE/BRACHIAL INDEX: RIGHT LEFT Dorsalis Pedis .63 .78Posterior Tibial .66 1.00 TOE/BRACHIAL INDEX: RIGHT LEFT Unable to obtain .63PRELIMINARY FINDINGS:1. Ankle/brachial indices fall into the moderate category on theright and Moderate category on the left dorsalis pedis. 2. Although ankle brachial index signal falls in normal categoryAnalog waveforms i s abnormal. 3. Toe/brachial indices fall into the normal category on the left.The right TBI could not be obtained due to no waveform in great toe.PHYSICIAN INTERPRETATION:1. Ankle/brachial indices fall into the moderate category on theright and Moderate category on the left dorsalis pedis. 2. Although ankle brachial index signal falls in normal categoryAnalog waveforms is abnormal. 3. Toe/brachial indices fall into the normal category on the left.The right TBI could not be obtained due to no waveform in great toe. FINDINGS: -Signed 05/10/2020 04:12 PMChucyk Swartz MD, Willie Kennedy Picc Chest [id number] 14:12:24Hm Interface, Radiology Results Incoming - 05/10/2020 2:15 PM CSTEXAMINATION: XR PICC CHEST PORTABLECLINICAL HISTORY: R50.9 Fever unspecified, multiple iv medsCOMPARISON: May 2IMPRESSION:1.PICC line tip is in the SVC. AICD and sternal wires remain.2.There is no confluent infiltrate, effusion, pulmonary congestion, or acute osseous pathology.[id number] MethodistPICC [id number] 12:11:40Orlin Jimenez RN 05/10/2020 12:14 PMPICC insertion Date/Time: 05/10/2020 12:11 PMPerformed by: Javan Betts, MDAuthorized by: Anette Hussein MD Consent: Consent obtained: Written Consent givenby: Patient Risks discussed: Arterial puncture, incorrect placement, nerve damage, infection, bleeding, superficial thrombus and deep vein thrombus Alternatives discussed: Alternative treatment and delayed treatmentUniversal protocol: Procedure explained and questions answered to patient or proxy's satisfaction: yes Relevant documents present and verified: yes Test results available and properly labeled: yes Imaging studies available: yes Required blood products, implants, devices, and special equipment available: yes Site/side marked: yes Immediately prior to procedure, a time out was called: yes Patient identity confirmed: Verbally with patient, arm band and hospital-assigned identification numberPre-procedure details: Hand hygiene: Hand hygiene performed prior toinsertion Sterile barrier technique: All elements of maximal sterile technique followed Skin pr eparation: ChloraPrep Skin preparation agent: Completely dried prior to procedure Anesthesia (seeMAR for exact dosages): Anesthesia method: Local infiltration Local anesthetic: Lidocaine 1% w/o epi Route administered: SubcutaneousPICC Line Placement Details: Patient position: Flat Vessel Size (mm): 3.5. Indication: Known care home IV therapy Location: Right brachial Device Type: Non-valved Catheter Lumens: Double lumen Catheter size: 5 Fr Catheter to vein ratio: 41%PICC Characteristics: Catheter Brand: DL PROVENA PICC Internal Catheter Length (cm): 43 Total CatheterLength (cm): 43 Catheter Lot Number: [id number] Catheter Expiration Date: 1Procedure details: Landmarks identified: yes Ultrasound guidance: yes Sterile ultrasound techniques: Sterile gel and sterile probe covers were used Number of attempts: 1 Number of PICC kits used during procedure: 1 Extra guide wire required?: Yes Purpose of procedure: PICC Placement Successful PICC Placement: yes Patency/Placement: Flushes without difficulty, flushed with 10 mL normal saline, positive blood return, ultrasound placement verified and x- ray placement verified Dressing/Securement: Antimicrobial dressing dry and intact, antimicrobial dressing applied and catheter securement device Blood Loss Amount: Less than 20 mLPost-procedure details: Post-procedure: Dressing applied Tip placement confirmed by: X-Ray Patient tolerance of procedure: Tolerated well, no immediatecomplicationsMingo Junction MethodistHemoglobin A1c 2020-05-10 11:20:12 Test Item Value Reference Range Interpretation Comments Hemoglobin A1C (test 7.7 % 4-5.6 H HbA1c c utoffs for code = 27520-7) diagnosing diabetes:4.0% - 5.6% = normal5.7% - 6.4% = increased risk for diabetes (prediabetes)9> =6.5% = ctqhxzev3Zjil s for glycemic contro l (ADA 2016)< 7.0% Ta rget for non adults with gucci betes. More or less stringent targe ts may be appropriate for individual cat ents. <7.5% Target for Children and adolescents wit h type 1 diabetes. Lab Interpretation (test Abnormal code = 23372-8) [place] MethodistSedimentation [id number] 07:58:20 Test Item Value Reference Range Interpretation Comments Sedimentation rate (test code = 25 0- 10 mm/hr H 87849-7) Lab Interpretation (test code = Abnormal 43427-9) [place] BaptistC-reactive [id number] 05:25:21 Test Item Value Reference Range Interpretation Comments CRP (test code = 1988-5) 5.50 mg/dL 0-0.5 H Lab Interpretation (test code = Abnormal 27481-3) [place] BaptistVancomycin level, [id number] 05:17:43 Test Item Value Reference Range Interpretation Comments Vancomycin, random (test code = 8.8 ug/mL 21400-7) [place] BaptistCT Abdomen Pelvis Wo [id number] 18:38:41Hm Interface, Radiology Results - 05/09/2020 6:41 PM CSTEXAMINATION: CT ABDOMEN PELVIS WOCONTRASTCLINICAL HISTORY: GNR bacteremia with vomiting rule out GI source or abscessTECHNIQUE: Multiple axial images of the abdomen and pelvis were obtained without intravenous administration of iodinated contrast. Sagittal and coronal computerized reformatted images were also obtained. The lack of i ntravenous contrast reduces the sensitivity of detecting solid organ disease.CT imaging was performed with iterative reconstruction techniques and/or automated exposure control to reduce radiation dose.COMPARISON: November 04, 2014 CT scanFINDINGS:Abdomen:1. The spleen is enlarged with some subcapsular calc ification, probably related to old trauma. This appearance is stable since the prior examination.2.There has been a cholecystectomy. No focal lesions are seen in the liver, pancreas.3.There are severaland adrenal myelolipoma is unchanged since prior study.4.There is no hydronephrosis in the kidneys. There is a 4.5 cm cyst arising from the lower pole of the right kidney. No perinephric fluid collections are seen.5.The abdominal aorta is densely calcified but is of normal caliber.6.The appendix is visualized and has normal appearance.Pelvis:1. No CT findings of acute diverticulitis.2.No pelvic sidewall mass or adenopathy.3.The prostate gland is diffusely enlarged.IMPRESSION:No acute abnormality identified. Stable appearance since the prior examination.[facility]-[id number] Army Medical Center COVID-19 qualitative [id number] 23:40:23 Test Item Value Reference Range Interpretation Comments Interpretation (test Negative results do code = 6882843) not preclude 2019-nCoV infection and should not be used as the sole basis for treatment or other patient management decisions. Negative results must be combined with clinical observations, patient history, and epidemiological information. COVID-19 qualitative Not-Detected Not-Detected PCR result (test code = 20923-6) COVID-19 qualitative See link below for C ase Number: PCR (test code = PDF Lab Report [id number]) [place] [facility]ignaCaroMont [facility] 12 [id number] 21:22:31 Test Item Value Reference Range Interpretation Comments Ventricular rate (test 78 code = 253) Atrial rate (test code 79 = 255) LA interval (test code 174 = 266) QRSD interval (test 174 code = 260) QT interval (test code 494 = 264) QTC interval (test code 563 = 265) QRS axis 1 (test code = 254 268) T wave axis (test code 83 = 270) EKG impression (test AV dual-paced code = 273) rhythm-Biventricular pacemaker detected-Abnormal ECG-In automated comparison with ECG of 24-FEB-2020 21:29,-Vent. rate has increased BY 5 BPM- Lopez MethodistXR Foot 3+ Vw [id number] 20:11:28Hm Interface, Radiology Results 05/08/2020 8:14 PM CSTEXAMINATION: XR FOOT 3 VW LEFTCLI NICAL HISTORY: Osteomyelitis suspected foot swelling diabeticCOMPARISON: None.IMPRESSION:There is diffuse soft tissue swelling in the second digit. There may be a small focal area of bone destruction involving the tip of the distal phalanx. Osteomyelitis at this site is not excluded. MRI scan would provide more sensitive evaluation of warranted. [id number] Deidra 2020-05-08 19:38:29 Test Item Value Reference Range Interpretation Comments Troponin (test code = 0.076 ng/mL 0-0.04 H In pat ients 70354-8) suspected of mackenzie ving a myocardial infarction, matthew ng with all other appropriate cli nical measures and ac tions including ECG a nd other diagnosti cs as appropriate, ms asure Ultra TnI at 0 hrs and at 3 hrs.Myocardial infarction VERY LIKELYThe 0 hr TnI level is > 0.10 ng/mL ----- ----- ----- --Aries cardial infarct ion LIKELYThe 0 hr TnI level is > 0.04 ng/mL and 3 hr level is increased or decreased by at least 0.020 ng/ mL ----- ----- ----- Aries cardi al infarction V [facility] UNLIKELYBomorrow county hospital e 0 hr and 3 hr TnI levels <= 0.04 ng/mL(within no rmal limits) OR 0 hr is > 0.04 ng/mL and 3 hr is increased OR decreased by le ss than 0.020 ng/m L Lab Interpretation Abnormal (test code = 32267-1) John MethodistLactic acid level, SEPSIS - Now and repeat 2x every 3 hours 2020-05-08 19:34:25 Test Item Value Reference Range Interpretation Comments Lactic acid (test code = 91252-8) 1.5 mmol/L 0.5-2.2 [facility] MethodistXR Chest 1 Vw Wcrzvaih2195-14-02 15:22:54Hm Interface, Radiology Results - 05/08/2020 3:25 PM CSTEXAMINATION: XR CHEST 1 VW PORTABLECLINICAL HISTORY: 85 years Male SOB TMHCOMPARISON: 02/28/2020IMPRESSION:1.Midline sternotomy wires and valve replacement. Left chest wall cardiac device and right-sided PICC line are similar to prior. 2 .Cardiomediastinal silhouette is stable. There are calcifications in the aortic arch. Mild prominence of the central vasculature.3.Lungs are hypoinflated with bibasilar atelectasis. No consolidation oreffusion.4.No acute bony findings.[id number] MethodistBA[facility] [place] [place] [facility] Preliminary Interpretation - Not an [id number] 15:00:08Chetan Yates MD 05/09/2020 11:48 AMECG ED Preliminary Interpretation - Not an OrderPerformed by: Chetan Yates, [facility]OLM[facility] COUNTYuthorized by: Chetan Yates MD ECG reviewed by ED Physician in the absence of a cheesemaker: yes Previous ECG: Previous ECG: UnavailableInterpretation: Interpretation: normal Rate: ECG rate: 78Rhythm: Rhythm: paced Pacing: Type of pacing: VentricularEctopy: Ectopy: none QRS: QRS axis: Normal QRS intervals: NormalST segments: ST segments: NormalT waves: T waves: normalMingo Junction MethodistCenterville lab procedure 2020-04-27 14:02:56 Mildly elevated right and left sided filling pressures. Mild postcapillary pulmonary hypertension. Low normal cardiac output on milrinone 0.5 mcg CardioMEMS calibrated with no changes made. PAD 17 mmg on CardioMEMS.John BenitoistT3, tqyo2484-24-44 18:16:16 Test Item Value Reference Range Interpretation Comments T3, free (test code = 1.3 pg/mL 2.4-4.2 L REFERE NCE INTERVAL: 5404-9) Triiodothyronin e, Free (Free T3)A ccess complete set of age- and/or gender-specific reference inter vals for this test i n the [facility] Test Directory (Food.ee).P erfor med By: [address] [place] [id number] Director: Collin Conrad MD, MS Lab Interpretation (test Abnormal code = 22301-5) Lopez MethodistThyroid stimulating wmhowhm8408-26-23 05:52:13 Test Item Value Reference Range Interpretation Comments TSH (test code = 3016-3) 2.10 0.27- 4.20 uIU/mL Lopez MethodistT4, [id number] 05:52:12 Test Item Value Reference Range Interpretation Comments T4, free (test code = 3024-7) 2.5 ng/dL 0.9-1.7 H Lab Interpretation (test code = Abnormal 20329-2) Lopez [id number] 05:52:12 Test Item Value Reference Range Interpretation Comments T3 (test code = 3053-6) 46 ng/dL 80-200 L Lab Interpretation (test code = Abnormal 73797-8) [place] MethodistPICC [id number] 19:14:08Francine Stubbs RN 02/28/2020 7:16 PMPICC insertionDate/Time: 02/28/2020 7:14 PMPerformed by: Regi Carias, RNAuthorized by: Coby Doan MD Consent: Consent obtained: Verbal and written Consent given by: Patient Risks discussed: arterial puncture, incorrect placement, nerve damage,bleeding, infection, superficial thrombus and deep vein thrombus Alternatives discussed: Delayed tr eatment and no treatmentUniversal protocol: Procedure explained and questions answered to patient or proxy's satisfaction: yes Test results available and properly labeled: yes Imaging studies available: yes Required blood products, implants, devices, and special equipment available: yes Site/side marked: yes Immediately prior to procedure, a time out was called: yes Patient identity confirmed: Verbally with patient, arm band and hospital- assigned identification numberPre-procedure details: Hand hygiene: Hand hygiene performed prior to insertion Sterile barrier technique: All elements of maximal sterile technique followed Skin preparation: ChloraPrep Skin preparation agent: Skin preparation agent completely dried prior to procedure Anesthesia (see MAR for exact dosages): Anesthesia method: Local infiltration Local anesthetic: Lidocaine 1% w/o epi Route of administration: SubcutaneousLine Placement Details: Patient position: Flat Vessel Size (mm): 5.0. Indication: Vesicants Location: Right basilic Device Type: Non-valved Catheter size: 4 FrLine Characteristics: Catheter Brand: TESARO PowerPICC Provena External Catheter Length (cm): 0 Internal Catheter Length (cm): 43 Total Catheter Length (cm): 43 Catheter Lot Number: [id number] Catheter Expiration Date: 1Procedure Details: Landmarks identified: yes Ultrasound guidance: yes Sterile ultrasound techniques: Sterile gel and sterile probe covers were used Number of attempts: 1 Number of PICC kits used during procedure: 1 Purpose of procedure: PICC Placement Successful PICC Placement: Yes Patency/Placement: Flushes without difficulty, flushed with 10 mL normal saline, x-ray placement verified, positive blood return and injection cap placed PICC placed utlizing ultrasound-guided Modified Seldinger Technique: Yes Dressing/Securement: Catheter securementdevice and antimicrobial dressing applied Blood Loss Amount: Less than 20 mLPost- Procedure Details: Post-procedure: Dressing applied Tip placement confirmed by chest x-ray: Yes Patient tolerance of procedure: Tolerated well, no immediate complicationsBaptist Saint Anthony's Hospitalassium tymat2118-30-10 13:23:14 Test Item Value Reference Range Interpretation Comments Potassium (test code = 2823-3) 4.3 3.5- 5.0 mEq/L [facility] Fluoroscopy Of Diaphragm 2 Vw [id number] 09:33:15Hm Interface, Radiology Results 02/26/2020 9:36 AM CDTEXAMINATION: FL FLUOROSCOPY OF DIAPHRAGM 2 VW CHESTCLINICAL HISTORY: dyspneaCOMPARISON: None.TECHNIQUE: Diaphragms were observed under fluoroscopy during quiet and deep breathing and with sniff testing.Radiation dose: 11.4 mGy air ker maIMPRESSION:Right hemidiaphragm is slightly elevated, with slightly decreased excursion. This is consistent with a mild paresis. No paradoxical motion.Left hemidiaphragm demonstrates normal position and excursion.[facility]-DS68NDAVPkxkmyv MethodistFerritin icwpc0988-29-65 06:32:26 Test Item Value Reference Range Interpretation Comments Ferritin level (test code = 2276-4) 20 ng/mL 30-400 L Lab Interpretation (test code = Abnormal 64589-2) [place] MethodistTotal iron binding ljhuswhm4835-70-68 06:31:41 Test Item Value Reference Range Interpretation Comments Iron level (test code = 2498-4) 30 ug/dL 59-158 L Iron binding capacity (test code = 308 ug/dL 938-441 2376-7) % Saturation (test code = 2502-3) 9.7 % 20-40 L Lab Interpretation (test code = Abnormal 67500-0) [place] MethodistCT Chest Wo Xcgzmief5603-58-88 19:13:30Hm Interface, Radiology Results - 02/25/2020 7:16 PM CDTEXAMINATION:CT CHEST WO CONTRASTCLI NICAL HISTORY:Shortness of breathTECHNIQUE:Multiple axial images were obtained from the lung apices to the lung bases without the administration of intravenous contrast.The lack of intravenous contrastreduces the sensitivity of detecting solid organ disease and evaluating vasculature. High-resolution, coronal, and sagittal reformats were obtained.CT imaging was performed with iterative reconstruction technique and/or automated exposure control to reduce radiation dose.COMPARISON:01/20/2020FINDINGS:Heart size is normal. There is coronary artery calcification. There is bilateral gynecomastia.The aorta measures within normal limits. The pulmonary artery is within normal limits.There is no enlarged me diastinal lymph node. Lymph nodes are slightly smaller than on the previous study.Tiny calcified granulomata are seen left lower lobe.The liver, pancreas, left adrenal, spleen, and kidneys are within normal limits in their visible portions. A suspicious osseous lesion is not seen. Cholecystectomy clips are seen. 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 Right adrenalmyelolipoma. Small mediastinal lymph nodes without lymphadenopathy, decreased in size from the previous study.[place] [facility] Manual qivwhqcwflrs8243-50-72 06:48:16 Test Item Value Reference Range Interpretation Comments Manual differential (test code = PERFORMED 90134-9) Neutrophils (test code = 66.0 % 39-69 90391-4) Lymphocytes (test code = 21.0 % 25-45 L 08859-3) Monocytes (test code = 01051-8) 10.0 % 0-10 Eosinophils (test code = 3.0 % 0-5 38278-3) Basophils (test code = 76497-6) 0.0 % 0-1 Metamyelocytes (test code = 0 % 740-1) Promyelocytes (test code = 0 % 783-1) Platelet slide review (test code Pauline adequate = 94091-0) Lab Interpretation (test code = Abnormal 73256-0) [place] MethodistUric acid lqntm6424-93-52 06:30:58 Test Item Value Reference Range Interpretation Comments Uric acid (test code = 3084-1) 9.3 mg/dL 3.4-7 H Lab Interpretation (test code = Abnormal 34099-2) [place] MethodistUrinalysis screen and microscopy, with reflex to culture 2020-02-25 02:31:54 Test Item Value Reference Range Interpretation Comments Specimen site (test code = Clean catch 9431298) Color, UA (test code = 5778-6) Straw Appearance, UA (test code = Clear 5767-9) Specific gravity, UA (test code = 1.010 1.001-1.035 5811-5) pH, UA (test code = 5803-2) 5.0 5.0-8.5 Protein, UA (test code = 65984-0) 1+ Negative A Glucose, UA (test code = 42612-0) Negative Negative Ketones, UA (test code = 2514-8) Negative Negative Bilirubin, UA (test code = Negative Negative 5770-3) Blood, UA (test code = 5794-3) Moderate Negative A Nitrite, UA (test code = 5802-4) Negative Negative Urobilinogen, UA (test code = <2.0 <2.0 00698-0) Leukocyte esterase, UA (test code Large Negative A = 5799-2) Epithelial cells, UA (test code = 1 /HPF 5787-7) WBC, UA (test code = 5821-4) 73 0- 1 /HPF H RBC, UA (test code = 15156-8) 5 0- 5 /HPF Bacteria, UA (test code = Many None seen A 78379-0) Yeast, UA (test code = 48174-0) None seen Yeast with pseudohyphae, UA (test None seen code = 67234-6) Hyaline casts, UA (test code = 16 /LPF 5796-8) Lab Interpretation (test code = Abnormal 88666-1) John CehDyqcgobokHK-tpxPVJ4288-41-21 00:04:00 Test Item Value Reference Interpretation Comments Range NT-proBNP (test 1318 pg/mL H Male Risk: code = 12944-6) Optimal < 253 pg/mL High > or = 253 pg/mL For Heart Failure ( HF) diagnosis, referenceranges in patients with dyspnea are bas ed onQuoc HERRMANN, E t al. J Am Rodolfo Cardiol.2018;71 :1191 -1200. 18-49 ye ars: <= 300 pg/mL No rmal, HF unlikely >= 450 pg/mL High probability of HF50-75 years: <= 300 pg/mL August[place] l, HF unlikely >= 90 0 pg/mL High probability of HF>75 years: <= 300 pg/mL Normal, HF unli kianna >= 1800 pg/mL H igh probability of HF For patients wi th coronary heart disease, theopt imal risk category c ut points for inci dent HFor CVD (<253 pg/mL men, <372 pg/mL women) arebased on Feliciano pickett T, et al. J Am Rodolfo Cardiol.2007:50 :205- 14. For patient s with existing H F, the optimal riskcategory cu t point for HF progression (<3 00 pg/mL)is based on Carmelo KB, et al. Clin Biochem.2010;43 :1405 -10. For additi onal information, pl ease refer tohttp://educat ion.[employer]/ faq/INI951(This link is being provid ed for informational/e gina iontammy o nly.) IRAJ (test code = FASTING:NOFASTING IRAJ) : NO RAC (test code = Performing RAC) Organization Information: Site ID: EZ Name: Zocere/[facility]one [facility], Address: [address] [place] [id number] Director: Nissa Frey MD,PhD,GHULAM Lab Interpretation Abnormal (test code = 87288-8) [facility] lab cdbmmsmlk5129-46-32 18:08:39CARDIAC CATHETERIZATION PROCEDURE REPORT FINDINGSHEMODYNAMIC DATA: Condition : Initial 1. Right atrial pressure is 10mmHg.2. Right Ventricular Pressure 38/8/10mmHg.3. PA Pressure 40/20, mean 27mmHg. 4.Pulmonary capillary wedge pressure 18mmHg.5. The transpulmonary gradient is 9mmHg with a PVR of 2.16wood units. Diastolic pressure gradient is 2mmHg.6. By Shu, CO: 4.17 l/min, CI 1.91 l/min/sqm, HEMO DYNAMIC DATA: Condition : Post Device 1.PA Pressure 47/26, mean 33mmHg. 2.Pulmonary capillary wedge pressure 28mmHg. Conclusions Elevated Left sided filling pressures with a PCWP of 18 mmHgLow cardiac output and index Isolated post-capillary PHTN Cardiomems placed with good positionMingo Junction Baptist Immunofixation, zxnnx7411-71-08 14:48:01 Test Item Value Reference Range Interpretation Comments Immunofixation, SEE COMMENT See electrop horesis report serum (test code below. = 92859-4) [facility] ycclxmdhueyblkt5804-93-67 14:04:46 Test Item Value Reference Range Interpretation Comments Protein (test code = 5.8 g/dL 6.3-8.3 L -[place] n 2885-2) 4.6-7.0 g/dL 1 week 4.4-7.6 g/dL7 months-1year 5.1-7.3 g/dL1-2 years 5 .6-7.5 g/dL>3 years 6.0-8.0 g/cY79-478 6.3-8.3 g /dL SPE albumin (test 3.02 g/dL 3.51-5.42 L code = 2862-1) SPE alpha 1 (test 0.37 g/dL 0.18-0.4 code = 2865-4) SPE alpha 2 (test 0.93 g/dL 0.44-0.96 code = 2868-8) SPE beta (test code = 0.74 g/dL 0.52-1.07 09081-3) SPE gamma (test code 0.73 g/dL 0.7-1.54 = 2874-6) SPE extended See Comment Total protein a nd interpretation (test albumin are decreased code = 29804-2) while the re lative concentrationso f alpha-1 globuli ns and alpha-2 globuli ns are increased indic ating anacute phase r esponse to infection, inflammation or tissue injury. Nomonoc lonal bands are seen on immunofixation. SPE interpretation See Comment Sd Reza MD/PhD; Cecilia (test code = 2218) Barby, PhD; Herminia Patel MD Lab Interpretation Abnormal (test code = 47259-8) [facility] pyp scan for cardiac spawfolovsx2973-53-55 19:19:00 Interface, Radiology Results In - 01/25/2020 7:20 PM CDT Nuclear Cardiology and Cardiac CT [address] [place] [address] Department Number: [phone] PYP Cardiac Amyloidosis Imaging ReportPat.Name: MARCELA ALCARAZ Lila.ID: [id number] .Date: 01/25/2020 Refer.MD: DARVIN SAWANT MD Exam Time: 1:01:00 PM Study Type:PYP Cardiac Amyloidosis ImagingHeight: 71in Weight: 224lb BSA: 2.21 m2 Age: 11 1935,84Y Sex: MALE Nuclear Tech:JANKI ReyesMT, [facility]/JANKI JaimesSt. Vincent's Hospital Westchestert. Stat.:Inpatient Nuclear Event ID:[id number] Order ID: [id number] Reason for Study:Ischemic Cardiomyopathy/Assessment of Viability-Knownsevere LV dysfunction; Patient eligiblefor revascularizationHistory / Clinical:Hypertension, CAD, PAD, A fib on Eliquis,hypothyroidism, type 2 diabetes. Procedures: PYP Cardiac AmyloidosisRace: C SUMMARY: Technique: A Tc- 99m pyrophosphate study was performed to assess for presence andtype of amyloidosis. The patient was given an intravenous injection of20 mCi Tc-99m Pyrophosphate followed by a planar and SPECT imageacquisition 1 hour post in jection. Planar imaging of the heart wasperformed in the anterior, [place], and lateral projections followed by acardiac SPECT acquisition.Findings: The overall quality of the study was good. Semi-quantitative visualassessment of myocardial count intensity was grade 1which indicatescardiac uptake lessthan bone. Quantitative heart to contralaterallung ratios: 1.25 at l hour and 1.03 at 3 hours.SPECT-CT images show no significant myocardial tracer uptake at 1 orat 3 hours but with significant tracerin the blood pool at [address] Findings:Coronary calcification and/or stents are present in the LAD, right andcircumflex coronary arteries. Status post CABG. Aortic valveprosthesis. The ascending and descending aorta are normal in size.Severely calcified aortic arch and descending aorta. BILINGUAL HR GENERALIST-D deviceleads in the RA, RV and coronary sinus.There is no significantpericardial effusion. Limited lung weir show no significantabnormalities. Bilateral gynecomastia. Impression:The overall study results arenot suggestive for transthryetinamyloidosis (ATTR). FINDINGS:--- Signed 01/25/2020 07:19 PMMD John MoraesTexas Health Harris Methodist Hospital Southlakeevelina lambda free light chain with atxxw3636-84-92 16:19:12 Test Item Value Reference Range Interpretation Comments Bowles light chain (test code = 39.53 mg/L 3.3-19.4 H 98672-8) Lambda light chain (test code = 24.21 mg/L 5.7-26.3 48095-9) Bowles lambda ratio (test code = 1.63 0.26-1.65 46753-3) Lab Interpretation (test code = Abnormal 05308-9) John CheTransthoracic Echocardiogram Complete, (w Contrast, Strain and 3D if needed)2020-01-24 16:20:00Interface, Radiology Results In - 01/24/2020 4:20 PM CDT Echocardiography Report [id number] [address] Pat.Name: MARCELA ALCARAZ Pat.ID: [id number].Date: 01/24/2020 Refer.MD: COBY DOAN MD Exam Time: 1:14:00 PM Study Type:Routine Echo Height: 71in Weight: 216lb BSA: 2.18 m2 Age: 10 1935,84Y Sex: MALE BP: 122/60 HR: 80 bpm Sonogrphr: DesireeLerma, RCS, RVS Pat. Stat.:Inpatient Room: 09 Study Status:Final Echo Event ID:[id number] Order ID: [id number] Reason for Study:Cardiomyopathy, known, status change, re-evalHistory / Clinical:Atrial Fibrillation, COPD, Coronary Artery DiseaseProcedures: 2D Echo, Colorflow Doppler, Portable, Intravenous LumasonContrastRace: C SUMMARY: ---------LV EF is lower limits of normal. Estimated EF is 50-55%.RV systolic function is normal.Normal prosthetic aortic (TAVR) valve velocity and gradient.LV filling pressure is elevated.Estimated PA systolic pressure is 55 mmHg, assuming a mean RAP of 5mmHg. FINDING S: LV: LV size is normal. LV EF is lower limits of normal. Overall wall motion is lower limits of normal. Estimated EF is 50-55%.RV: RV size is normal. RV systolic function is normal.LA: LA volume is severely enlarged.RA: RA size is normal.AO: Aortic root diameter is normal.RAJESH: No pericardial effusion.AV: Transcatheter bioprosthetic aortic valve. Normal prosthetic valve velocity and gradient. Transcatheter AV Doppler velocity index is 0.68 (normal >0.50).MV: Focal calcification of mitral leaflets. Moderate mitral annular calcification.PV: No structural PV abnormalities noted.TV: No structural TV abnormalities noted.Jean: LV relaxation is impaired. LV filling pressure is elevated.Other: Estimated PA systolic pressure is 55 mmHg, assuming a mean RAP of 5 mmHg. MEASUREMENTS: 2DParasternal Long [place] Ao An 2.3 cm LVPWd 1.2 cm Ao Rtd 3.7 cm Index 1.7 cm/m2 LA Ds 5 cm IVSd 1.4 cm RWT 0.44 LVIDd 5.4 cm Index 2.5 cm/m2 LV Mass 291 g (122-174)* LVIDs 3.9 cm LVM Index 133 g/m2 LV%fs 27 % LVOT 2.3 cm Left Atrium LA Ds 5 cm (2.3-3.8)*LA Sng Plane LA Area 30 cm2 (8.8-23.4)* LA Vol 114 ml Index 53 ml/m2 LA LngAx 6.7 cm RA Sng Plane RA Vol 73 ml Index 34 ml/m2 RA LngAx 5.3 cm RA Area 21 cm2 (8.3-19.5)*LVOT LVOT Area 4.3 cm2 DOPPLERAV Forward Flow AV pkVel 174 cm/s (100-170)* AV AC/ET 0.38 AV mnVel 109 cm/s AV TVI 32 cm AV pkPG 12 mmHg AVpkAcRt 2600cm/s2 AV Mean G 5.9 mmHg AV AC 111 msec (83-118) AV ET 297 msec Aortic Valve AV DI 0.68 AV Area 2.9 cm2 (3-5)*LVOT Stroke Vol & Cardiac Out LVOT TVI 22 cm HR 71 bpm LVOT LVOT SV 94 ml LVOT CO 6.7 l/min SVi 43 ml/m2 LVOT CI 3.1 l/m/m2 Signed 01/24/2020 04:20 PMTyler Anna M.D.John Holbrook Dgvog4860-35-06 16:44:10Hm Interface, Radiology Results 01/21/2020 4:47 PM CDTEXAMINATION: US RENALCLINICAL HISTORY: Renal failure acute (kidney injury). Suspected COVID- 19TECHNIQUE: Sonographic imaging over the kidneys was performed. COMPARISON: June 10, 2012 ultrasound. November 04, 2014 CT..FINDINGS:1.The right kidney measures 13.0 cm in long axis. The kidney has increased echogenicity. Vascular flow is unremarkable. There is no evidence of hydronephrosis, perinephric fluid, solid mass, or calculus. There is a 3.9 cm long axis cyst in the interpolar right kidney2.The left kidney measures 11.3 cm in long axis. The kidney has increased echogenicity. Vascular flow is unremarkable. There is no evidence of hydronephrosis, perinephric fluid, solid mass, or calculus.3.The bladder is incompletely distended butappears grossly unremarkable.IMPRESSION:Increased renal cortical echogenicity, which can be seen in medical renal disease. No acute renal abnormalities are identified.[facility]-[id number] Texas Health [facility] Lung Perfusion Wwgbvfy6316-40-18 16:37:38Hm Interface, Radiology Results 01/21/2020 4:40 PM CDTPROCEDURE: NM LUNG PERFUSION IMAGINGINDICATION: PE suspected intermediate prob positive D-dimer.COMPARISON: CT chest 01/20/2020.TECHNIQUE: No ventilation imaging was performed due to contamination concerns regarding COVID- 19. The patient was injected with 5 mCi of giodysmcpx-45f-MDZ intravenously, followed by imaging of the lungs in 8 projections.FINDINGS: Mildly heterogeneous perfusion bilaterally. No well-defined segmental defects. IMPRESSION:Low probability for pulmonary embolism. [facility]-[id number] and approved by president/fellow: Fani Hoyos M.D.I, Alejandro Ornelas MD, personally reviewed the images and resident's/fellow's findings and agree with the final report.Lopez Arline duplex venous lower wdmjuuves7271-69-44 04:27:00Interface, Radiology Results In - 01/21/2020 4:27 AM CDT Vascular Ultrasound Laboratory Lower Extremity Venous Report [id number] [address] Pat.Name: MARCELA ALCARAZ Pat.ID: [id number] .Date: 01/21/2020 Refer.MD: PHYSICIAN, EMERGENCY, Lucas Time: 1:49:00 AM Study Type:LE Venous Age: 10 1935,84Y Sex: MALE Sonogrphr: Avery Jackman, BA, BS, RDMS, RVTPa t. Stat.:Inpatient Room: [address] Tape Vol: JENNI, CPT - 4: 61815 Echo Event ID:[id number] Order ID: [id number] Reason for Study:Pain and swellling. Patient has history ofhypertension, CAD, atrial fibrillation, WU5Ajvhqkrbhx: Colorflow, Grayscale/2D, Pulsed wave DopplerRace: C --- SUMMARY: Ester p Veins Superficial Veins* Normal Reflux Criteria: < 1 second * Normal RefluxCriteria:< 0.5 seconds * Abnormal Reflux Criteria: > or equal to 1 second * Abnormal RefluxCriteria: > or equal to 0.5 seconds DUPLEX SCAN OBSERVATIONS Deep Veins Superficial Veins Right Left Right Left GSV (prox) Normal NormalCFV Normal Normal (above knee)Femoral Normal Normal GSV (dist) Normal NormalProfunda Normal Normal (below knee)Popliteal Normal NormalPT (prox) Normal Normal SSV Normal Not VisualizedPT (dist) Normal Normal Peroneal Normal Normal Gastrocs Normal NormalRIGHT: There is normal compressibility with no evidence of echogenicmaterial noted within the lumen of the visualized veins.Colorflow andDoppler signals are normal.LEFT: There is normal compressibility with no evidence ofechogenic material noted within the lumen of the visualizedveins.Colorflow and Doppler signals are normal.PRELIMINARY FINDINGS:1. No evidence of venous thrombosis noted in the visualizedveins,bilaterally.PHYSICIAN INTERPRETATION: Venous examination of the both lower extremities demonstrated noevidence of venous thrombosis in the visualized veins. Normalcompressibility and augmentation of all veins visualized.Volume overload. FINDINGS: Signed 01/21/2020 04:27 Hossein Swartz MD, RPVIHouadcare hospital of worcester MethodistBeta lkkjeolbifkgozj6652-89-32 01:46:12 Test Item Value Reference Range Interpretation Comments Beta hydroxybutyrate (test code = 0.10 mmol/L 0.02-0.27 6873-4) [place] EjxkkmjwpA-qiogg5319-72-17 01:14:23 Test Item Value Reference Range Interpretation Comments D-dimer (test code = 0.58 0.00- 0.40 ug/mL H Uni ts are ug/ml 52699-9) FEU Fibrinogen Equivalent Unit .When combined with l ow clinical probability, D- dimer results of less than 0.5 ug/ml FEU h ave a good negative predictive valu e in excluding PE or DVT. For D-dimer re sults greater than 0. 5 ug/ml FEU furth er testing is destin cated if PE or DVT is suspected clinically.Elev ated D-dimer results have been reported i n DVT, PE, and DI C cases and may indicate the presence of a c lot. D-dimer results may be elevated due to old age, pregna ncy, inflammatory diseases, traum a, post-operative states, sepsis, and malignancies. Lab Interpretation Abnormal (test code = 17889-5) [place] MethodistArterial blood [id number] 21:13:03 Test Item Value Reference Range Interpretation Comments pH, arterial (test code = 2744-1) 7.42 7.35-7.45 pCO2, arterial (test code = 31 35- 45 mmHg L 2018-8) pO2, arterial (test code = 144 80- 90 mmHg H 2703-7) Bicarbonate, arterial (test code 19.7 mmol/L 21-28 L = 1960-4) Base excess, arterial (test code -4 -2 - 2 mEq-L L = 1925-7) O2 saturation, arterial (test 99 % 95-100 code = 2708-6) Lab Interpretation (test code = Abnormal 65202-1) [place] MethodistProthrombin time with [id number] 20:16:00 Test Item Value Reference Range Interpretation Comments Prothrombin time (test 13.8 11.5- 14.5 sec code = 5902-2) INR (test code = 1.1 The Interna tional 71195-7) Normalized Rati o (INR) is a therapeutic m onitoring tool for patien ts who are stable on oral anticoagulant t herapy. An INR of 2.0-3.0 is suggested for d eep vein thrombosis/pulm onary embolism. [facility] CenterTICAL [id number] 19:48:26ShiAlejandro harris MD 01/21/2020 12:12 AMCritical CarePerformed by: Alejandro Paul MDAuthorizedby: Alejandro Paul MD Critical care provider statement: Critical care time (minutes): 35 Critical care time was exclusive of: Separately billable procedures and treating other patients Critical care was necessary to treat or prevent imminent or life-threatening deterioration of the followingconditions: Respiratory failure Critical care was time spent personally by me on the following activities: Blood draw for specimens, development of treatment plan with patient or surrogate, discussions with consultants, discussions with primary provider, evaluation of patient's response to treatment, examination of patient, ordering and performing treatments and interventions, ordering and review of laboratory studies, review of old charts, re-evaluation of patient's condition, pulse oximetry andordering and review of radiographic studiesM[place]unction AccmecgjfBzlfzs5695-26-93 14:25:01YeRasheeda cornelius CRNA 12/17/2019 2:25 PMAirwayDate/Time: 12/17/2019 2:15 PMPerformed by: Rasheeda Price CRNAAuthorized by: Yosi Bal MD Location: ORUrgency: ElectiveDifficult Airway: No Anesthesiologist: Yosi Bal, DENZELesident/WIRE TWISTER/AA: Rasheeda Price CRNAPerformed by: resident/WIRE TWISTER/AAPreoxygenated with 100% O2: Yes C-spine Precautions Maintained Throughout: Yes Mask Ventilation: Not attemptedFinal Airway Type: Supraglottic airwayFinal LMA: I-GelLMA Size: 5Numberof Attempts at Approach: [address] [place] [address] MethodistCath lab xnptnogbw7151-08-29 16:09:22CARDIAC CATHETERIZATION PROCEDURE REPORT FINDINGSHEMODYNAMIC DATA:1. Right atrial pressure is 11mmHg.2. Right Ventricular Pressure 50/10/11mmHg.3. PA Pressure 50/28, mean 34mmHg. 4. Pulmonary capillary wedge pressure 28 mmHg with v wave of 366. By Shu, CO: 4.46 l/min, CI 2.01 l/min/sqm7. By thermodilution, CO 3.33 l/min, CI 1.50 l/min/sqmHousnew bridge medical center MethodistBilirubin pvwvil9395-38-63 05:34:25 Test Item Value Reference Range Interpretation Comments Bilirubin direct (test code = 1968-7) <0.2 0-0.3 [facility] myocardial perfusion imaging w tl-201 jrbzumkok8161-69-45 12:11:00Interface, Radiology Results In - 09/04/2019 12:12 PM [facility] Nuclear Cardiology and Cardiac CT [address] [place] [address] Myocardial Perfusion Imaging Report Stress ECG tracings are available in [employer], [employer] and [employer] All ECG interpretations are included in this reportPat.Name: MARCELA ALCARAZ Pat.ID: [id number] .Date: 09/04/2019 Refer.MD: SEAN RICO MD Exam Time: 7:41:00 AM Study Type:Myocardial Perfusion ImagingHeight: 71in BSA: 2.19 m2 Age: 10 1935,84Y Sex: MALE Nuclear Tech:JASON Rose, CNSt. Vincent's Hospital Westchestert. Stat.:Inpatient Tape Vol: 30.54, Nuclear Event ID:[id number] Order ID: [id number] Procedures: Viability SUMMARY: SCINTIGRAPHIC RESULTSPerfusion Defect Size (% LV) 15% ScarLeft Ventricular Perfusion ResultsThere is a mild basal and mid lateral perfusion defect during stresswhich remains unchanged with redistribution imaging. Gated SPECT ResultsThe rest left ventricular ejection fraction is 47% with hypokinesis ofall hypoperfused bliss. Left ventricular end-diastolic volume is 118ml; end- systolic volume is 62 ml. The left ventricle is of normalsize at stress and rest. The right ventricle is of normal size withnormal wall motion. ConclusionAbnormal rest thallium-201 myocardial viability study compatible withscarin the circumflex coronary artery vascular territory. The restingLVEF is mildly depressed. All coronary artery territories are viableby countsStudy Quality/ArtifactsThe study quality is good. Comparison to Previous StudyNone available. FINDINGS: Signed 09/04/2019 12:11 [facility]ITALaisal Eva Delaney MethodistCat lab wtuwgbhes4464-11-60 08:40:51CARDIAC CATHETERIZATION PROCEDURE REPORT HEMODYNAMIC DATA:1. Right atrial pressure is 9/12/ 10mmHg.2. Right Ventricular Pressure 48/6/10 mmHg.3. PA Pressure 48 /29, mean 34mmHg. 4. Pulmonary capillary wedge pressure 20/23/21mmHg. LV 152/13/215. By Shu, CO: 3.32 l/min, CI 1.49 L/min/sqm6. TPG 13 mmHg, DPG 8 FINDINGS: LM: Large vessel with distal 30% lesion. LAD: Completely occluded at the ostium.Ramus Intermedius: Large vessel with proximal prior stent with ISR 40% LCx: Small vessel with mild diffuse diseaseRCA: 100% occlusion MERCER-LAD: PatentSVG- rPDA: Patent SVG-D1: Diffusely disease with 40-50% lesion in proximal and significant disease around 80% at the anastomosis with the D1. D1 is a very small vessel. SVG-OM: occluded Collaterals: PDA - LCx system. LVEDP: 19 mmHg CONCLUSION:- Moderately increased filling with decreased cardiac output. Moderate pulmonary hypertension most likely Type II but with a precapillary component. - SVG-OM is most likely newly occluded. - SVG-D1 significant lesion at the anastomosis with a very small D1 vessel. RECOMMENDATIONS:1. Intravenous diuresis for volume optimization 2. Repeat Echo and Nuclear to decide on further interventions PROCEDURE DETAILS:A TTENDING: Dr. Rico EQUIPMENT/ANTICOAGULATION: Right Common Femoral Uorvms8Dd Sheath JL4 Catheter JR4 Catheter Thrmodltn 4lumen 7fr 110cm Melber-Art Std Multipurpose catheter PROCEDURES PERFORMED:1. Right Common Femoral Artery Puncture2. Right Common Femoral Vein Puncture3. Right Heart Catheterization4. Left heart catheterization A time-out was completed verifying correct patient, procedure, site, positioning, and special equipment if applicable. The patient was placed in a supine position. The right groin was prepped and drapped. Systemic sedation was given. Lidocaine was used as local anesthetic. Left heart catherization was performed using a 4Fr arterial sheath. The right femoral artery was located, skin was infiltrated was lidocaine. The artery was accessed using the Seldinger technique witha micropuncture needle. The micropuncture sheath was then exchanged for a 4Fr sheath. Then JL4 and JR4 catheters were advanced over a wire and selective coronary angiography was performed, standard views were obtained. A MPA2 was used to engage the venous grafts and MERCER. A pigtail catheter was then used to measure LVEDP. A micropuncture needle was used to access the right common femoral vein. A 4Fr Sheath was placed in the right femoral vein. A triple lumen continuous cardiac output Melber-Art catheter was brought onto the field and each line flushed with sterile saline and the SVO2 sensor calibrated. The catheter was introduced into the sheath and position of balloon was confirmed to be distal to the sheath prior to inflation. The balloon was then inflated and the catheter was advanced throughthe IVC, right atrium then right ventricle and into the pulmonary artery until a wedge position pressure tracing was obtained. The balloon was then deflated and verification of return of a pulmonary artery pressure tracing made. During the floating procedure to position the catheter the position of the catheter tip was determined by continuous pressure monitoring via the distal port. Right atrial, right ventricular, pulmonary arterial and pulmonary capillary pressure tracings were obtained. Measurements were obtained for calculation of a SHU cardiac output. There were no procedural complications. The patient tolerated the procedure well. HEMOSTASIS: Manual Pressure ANESTHESIA:- Moderate sedation was administered with physician supervision and CO2 monitoring beginning at 15:50 ( Time) for a total period of 66 minutes. ATTENDING:I was scrubbed and present for the entire procedure andagree with the note as documented above. [place] [facility] function [id number] 05:05:00 Test Item Value Reference Range Interpretation Comments Albumin (test code = 3.5 g/dL 3.5-5 1751-7) Total bilirubin (test 0.5 mg/dL 0-1.2 code = 1974-2) Bilirubin direct (test <0.2 0-0.3 code = 1967-7) Alkaline phosphatase 69 U/L 40-129 (test code = 6768-6) Protein (test code = 6.9 g/dL 6.3-8.3 [place] 9994.6-7.0 2885-2) g/dL1 zzft8613. 4-7.6 g/dL7 months-1gkwx440 .1-7. 3 g/dL1-2 qioun157.6-7.5 g/dL>3 etnbf597.0-8.0 g/[id number]. 3-8.3 g/dL ALT (test code = 1742-6) 19 U/L 5-50 AST (test code = 1920-8) 20 U/L 10-50 [place] MethodistEchocardiogram complete w contrast and 3D if [id number] 17:49:00Interface, Radiology Results In - 09/03/2019 5:50 PM [facility] Echocardiography Report [id number] [place] [address] Pat.Name: MARCELA ALCARAZ Pat.ID: [id number].Date: 09/02/2019 Refer.MD: ALEJANDRO KRUSE MD Exam Time: 9:21:00 PM Study Type:Routine Echo Height: 71in Weight: 227lb BSA: 2.23 m2 Age: 10 1935,84Y Sex: MALE BP: 164/76 HR: 79 bpm Sonogrphr: Marisa Du RDCS Pat. Stat.:Inpatient Room: [address] Study Status:Final Echo Event ID:[id number] Order ID: [id number] Reason forStudy:chest pain History / Clinical:Atrial Fibrillation, COPD, Coronary Artery DiseaseProcedures: 2D Echo, Colorflow Doppler, Portable, Intravenous DefinityContrastRace: C SUMMARY: Estimated EF is 45-49%. Overall wall motion is hypokinetic.RV systolic function is normal.Transcatheter bioprostheticaortic valve. Normal prosthetic valvevelocity and gradient.Impaired relaxation with restrictive LV filling pressures.Estimated PA systolic pressure is 67-70 mmHg assuming and RAP of 15-20mmHg. FINDINGS: LV: LV size is normal. LV EF is mildly depressed. Overall wall motion is hypokinetic. Estimated EF is 45-49%.RV: RV size is normal. A pacemaker wire is seen in the RV. RV systolic function is normal.LA: LA volume is mildly enlarged.RA: RA volume is mildly enlarged. A pacemaker wire is seen.AO: Aortic root diameter is normal.RAJESH: There is an anterior space consistent with a prominent epicardial fat pad.AV: Transcatheter bioprosthetic aortic valve. A trace of aortic regurgitation. Normal prosthetic valve velocity and gradient. TranscatheterAV Doppler velocity index is 0.88 (normal >0.50).MV: Moderate thickening of mitral leaflets. Focal calcification of mitral leaflets. Mild mitral regurgitation.PV: Pulmonic valve not well seen.TV: No structural TV abnormalities noted. Mild tricuspid regurgitation Jean: Diastolic dysfunction Grade III (Severe): Impaired relaxation with restrictive LV filling pressures.Other: Estimated PA systolic pressure is 67-70 mmHg assuming and RAP of 15-20 mmHg. MEASUREMENTS: 2DParasternal [place] Ao An 2 cmLVPWd 0.74 cm Ao Rtd 3.7 cm Index 1.6 cm/m2 LA Ds 5.2 cm IVSd 0.73 cm RWT 0.3 LVIDd 4.9 cm Index 2.2 cm/m2 LV Mass 118 g (122-174) LVIDs 3.6 cm LVM Index 53 g/m2 LV%fs 27 % LVOT 2.1 cm LA Sng Plane LA Area 26 cm2 (8.8-23.4) LA Vol 87 ml Index 39 ml/m2 LA LngAx 6.3 cm RA Sng Plane RA Vol 84 ml Index 38ml/m2 RA LngAx 5.7 cm RA Area 24 cm2 (8.3-19.5)LVOT LVOT Area 3.4 cm2 DOPPLERAV Forward Flow AV pkVel 142 cm/s (100-170) AV AC/ET 0.18 AV mnVel 100 cm/s AV TVI 26 cm AVpkPG 8 mmHg AVpkAcRt 05114 cm/s2 AV Mean G 4.7 mmHg AV AC 46 msec (83-118) AV ET 260 msec Aortic Valve AV DI 0.88 AV Area 3 cm2 (3-5)LVOT Stroke Vol LVOT TVI 23 cm HR 69 bpm LVOT LVOT SV 80 ml LVOT CO 5.5 l/min SVi 36 ml/m2 LVOT CI 2.5 l/m/m2MV E/A Ratio MV pkE 112 cm/s (60-130) MV E/A 2.9 MV pkA 39 cm/s TV Pressure Gradient TV PkVel 409 cm/s TV PG 67 mmHg Signed 09/03/2019 05:49 Singh Stephens Pre/Post [id number] 10:36:04 Test Item Value Reference Range Interpretation Comments Ventricular rate (test 70 code = 253) Atrial rate (test code 78 = 255) QRSD interval (test 180 code = 260) QT interval (test code 524 = 264) QTC interval (test code 565 = 265) QRS axis 1 (test code = 261 268) T wave axis (test code 77 = 270) EKG impression (test Ventricular-paced code = 273) rhythm-Biventricular pacemaker detected-Abnormal ECG-In automated comparison with ECG of 27-JUL-2019 13:33,-premature ventricular complexes are no longer present- [facility] [id number] 13:53:30 Test Item Value Reference Range Interpretation Comments POC sodium (test code = 137 mmol/L 009-054 9262-0) POC potassium (test 5.3 mmol/L 3.5-5 H code = 6298-4) POC chloride (test code 102 mmol/L 99-109 = 2069-3) POC CO2 (test code = 28 mmol/L 24-31 92461-3) POC glucose (test code 208 mg/dL 65-99 H = 2339-0) POC BUN (test code = 51 mg/dL 8-24 H 6299-2) POC creatinine (test 2.2 mg/dl 0.7-1.2 H code = 10512-3) POC hematocrit (test 43 % 41-51 code = 4544-3) POC anion gap (test 14 mmol/L 8-20 [employer] Worker Name: code = [id number]) Jarred Jennings [place] ID: [id number] Lab Interpretation Abnormal (test code = 94477-9) John Che
[2020-05-21] MEDS ORDERED: NA CHLORIDE 0.9% 500 ML ONE (16:15)
[2020-05-21 16:23] LABS: Potassium 4.6 mmol/L (3.5-5.1)
--- NOTE | 2020-05-21 17:19 | ER ---
Nurse's Notes [facility] Name: Gilmer Mercado Age: 85 yrs Sex: Male : 1935 Arrival Date: 05/21/2020 Time: 15:28 Bed 19 Private MD: Diagnosis: Hyperglycemia, unspecified Presentation: 05/21 15:29 Chief complaint: Patient states: Got out of the hospital on the 12th for a R foot ca1 infection. Am taking antibiotics at home. The nurse came in today and suggested I come to the ER cause we cannot control my blood sugar. Right now, it says, HIGH. Coronavirus screen: Client denies travel out of the [place] in the last 14 days. At this time, the client does not indicate any symptoms associated with coronavirus-19. Ebola Screen: Patient negative for fever greater than or equal to 101.5 degrees Fahrenheit, and additional compatible Ebola Virus Disease symptoms Patient denies exposure to infectious person. Patient denies travel to an Ebola-affected area in the 21 days before illness onset. No symptoms or risks identified at this time. Initial Sepsis Screen: Does the patient meet any 2 criteria? No. Patient's initial sepsis screen is negative. Does the patient have a suspected source of infection? No. Patient's initial sepsis screen is negative. Risk Assessment: Do you want to hurt yourself or someone else? Patient reports no desire to harm self or others. Onset of symptoms was May 21, 2020. 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 - Social history:: Smoking status: Patient denies any tobacco usage or history of. Screenin:44 Abuse screen: Denies threats or abuse. Denies injuries from another. Nutritional sv screening: No deficits noted. Tuberculosis screening: No symptoms or risk factors identified. Fall Risk None identified. Assessment: 15:45 General: Appears in no apparent distress. comfortable, well groomed, well developed, sv Behavior is calm, cooperative, appropriate for age. Pain: Denies pain. Neuro: Level of Consciousness is awake, alert, obeys commands, Oriented to person, place, time, situation, Moves all extremities. Full function Gait is steady, Speech is normal. Respiratory: Airway is patent Respiratory effort is even, unlabored, Respiratory pattern is regular, symmetrical. Derm: Skin is intact, Skin is pink, warm \T\ dry. 16:04 Reassessment: Patient appears in no apparent distress at this time. No changes from sv previously documented assessment. Patient and/or family updated on plan of care and expected duration. Pain level reassessed. Patient is alert, oriented x 3, equal unlabored respirations, skin warm/dry/pink. 17:00 Reassessment: Patient appears in no apparent distress at this time. No changes from sv previously documented assessment. Patient and/or family updated on plan of care and expected duration. Pain level reassessed. Patient is alert, oriented x 3, equal unlabored respirations, skin warm/dry/pink. 17:51 Reassessment: Patient appears in no apparent distress at this time. Patient and/or sv family updated on plan of care and expected duration. Pain level reassessed. Patient is alert, oriented x 3, equal unlabored respirations, skin warm/dry/pink. Patient states symptoms have improved. Vital Signs: 15:29 BP 104 / 49; Pulse 74; Resp 16 S; Temp 97(TE); Pulse Ox 99% on R/A; Weight 90.26 kg ca1 (R); Height 5 ft. 11 in. (180.34 cm) (R); Pain 0/10; 16:40 BP 126 / 61; Pulse 68; Resp 16; Pulse Ox 100% ; sv 15:29 Body Mass Index 27.75 (90.26 kg, 180.34 cm) ca1 ED Course: 15:28 Patient arrived in ED. ag5 15:35 Triage completed. ca1 15:36 Marcia Stevens RN is Primary Nurse. sv 15:36 Arm band placed on right wrist. ca1 15:38 Naldo Crouch NP is PHCP. pm1 15:38 Hernan Dobson MD is Attending Physician. pm1 15:44 Nurse Practitioner and/or Physician Feather Maker to see patient. sv 15:44 Patient has correct armband on for positive identification. Placed in gown. Bed in low sv position. Call light in reach. Side rails up X 1. Adult w/ patient. 15:45 Accessed PICC line. Clean \T\ dry. Dressing intact. Good blood return. Flushes easily. sv 16:00 Door closed. Lights dimmed. Head of bed lowered. sv 16:24 Awaiting lab results. sv 17:51 No provider procedures requiring assistance completed. intact, Pt came in with a PICC sv line to the right upper arm. Administered Medications: 16:04 Drug: NS 0.9% 500 ml Route: IV; Rate: bolus; Site: PICC; sv 16:45 Follow up: Response: No adverse reaction; IV Status: Completed infusion; IV Intake: sv 500ml Intake: 16:45 IV: 500ml; Total: 500ml. sv Outcome: 17:18 Discharge ordered by . pm1 17:51 Patient left the ED. sv 17:51 Discharged to home via wheelchair, with family. sv 17:51 Condition: stable 17:51 Condition: improved 17:51 Discharge instructions given to patient, family, Instructed on discharge instructions, follow up and referral plans. diabetic education Demonstrated understanding of instructions, follow-up care, diabetic education Signatures: Marcia Stevens RN RN sv Naldo Crouch, FILM RENTAL CLERK FILM RENTAL CLERK pm1 Patricia Marquis RN RN [facility] Sigala ag5
--- NOTE | 2020-05-21 17:19 | EDPHYS ---
Physician Documentation [facility] Name: Gilmer Mercado Age: 85 yrs Sex: Male : 1935 Arrival Date: 05/21/2020 Time: 15:28 Bed 19 Private MD: ED Physician Hernan Dobson HPI: 05/21 15:57 This 85 yrs old Male presents to ER via Wheelchair with complaints of High pm1 Blood Sugar. 15:57 The patient or guardian reports hyperglycemia, that was potentially precipitated by pm1 Unknown. Onset: The symptoms/episode began/occurred and became worse 3 day(s) ago. Associated signs and symptoms: Pertinent negatives: diarrhea, nausea, polydipsia, polyphagia, polyuria, vomiting. Current symptoms: In the emergency department the patient's symptoms are unchanged from the initial presentation. Patient reports increased blood sugars for the past 3 to 4 days. He is using only regular insulin 3 times per day 15 units each. He came to the ER because his blood sugar reading was high on the glucometer. Historical: - Allergies: 15:36 No Known Allergies; ca1 - PMHx: 15:36 BPH; Diabetes - IDDM; High Cholesterol; Hypertension; Pacemaker; PNUEMONIA; ca1 - PSHx: 15:36 Thyroidectomy; CABG; Heart stents; HEART VALVE REPLACEMENT; DEFIBRILLATOR; ca1 - Immunization history:: Adult Immunizations up to date, Flu vaccine is up to date. - Social history:: Smoking status: Patient denies any tobacco usage or history of. ROS: 15:57 Constitutional: Negative for fever, chills, and weight loss, Cardiovascular: Negative pm1 for chest pain, palpitations, and edema, Respiratory: Negative for shortness of breath, cough, wheezing, and pleuritic chest pain, Abdomen/GI: Negative for abdominal pain, nausea, vomiting, diarrhea, and constipation, Back: Negative for injury and pain, MS/Extremity: Negative for injury and deformity, Skin: Negative for injury, rash, and discoloration, Neuro: Negative for headache, weakness, numbness, tingling, and seizure. Exam: 15:57 Constitutional: This is a well developed, well nourished patient who is awake, alert, pm1 and in no acute distress. Head/Face: Normocephalic, atraumatic. 15:57 Back: No spinal tenderness. No costovertebral tenderness. Full range of motion. MS/ Extremity: Pulses equal, no cyanosis. Neurovascular intact. Full, normal range of motion. 15:57 Cardiovascular: Exam negative for acute changes, Rate: normal, Rhythm: regular, Pulses: 15:57 Respiratory: Exam negative for acute changes, respiratory distress, shortness of breath. 15:57 Abdomen/GI: Exam negative for acute changes, Inspection: abdomen appears normal, Palpation: abdomen is soft and non-tender, in all quadrants. 15:57 Skin: Appearance: normal except for affected area, abscess, not appreciated, cellulitis, is not appreciated, injury, abrasion(s), small abrasion noted, of the plantar aspect of left second toe. 15:57 Neuro: Exam negative for acute changes, Orientation: is normal, Mentation: is normal, Motor: is normal, moves all fours. Vital Signs: 15:29 BP 104 / 49; Pulse 74; Resp 16 S; Temp 97(TE); Pulse Ox 99% on R/A; Weight 90.26 kg ca1 (R); Height 5 ft. 11 in. (180.34 cm) (R); Pain 0/10; 16:40 BP 126 / 61; Pulse 68; Resp 16; Pulse Ox 100% ; sv 15:29 Body Mass Index 27.75 (90.26 kg, 180.34 cm) ca1 MDM: 15:39 Patient medically screened. pm1 16:45 Data reviewed: vital signs. Data interpreted: Pulse oximetry: on room air is 100 %. pm1 Interpretation: normal. 16:45 Data reviewed: lab test result(s), BUN/Cr = 55/2.78 respectively on 03/16/2020. Patient pm1 is under the care of nephrology and is aware of his chronic kidney disease. 17:17 Counseling: I had a detailed discussion with the patient and/or guardian regarding: the pm1 historical points, exam findings, and any diagnostic results supporting the discharge/admit diagnosis, lab results, the need for outpatient follow up, to return to the emergency department if symptoms worsen or persist or if there are any questions or concerns that arise at home. 17:17 ED course: Educated the patient on SQ insulin administration. Patient was using the pm1 same site intramuscularly. Patient was complaining that the insulin was not working as effectively as in the past. Recommended that he talk to his PCP regarding diabetes education and the addition of basal insulin. 05/21 15:54 Order name: Glucose, Ancillary Testing; Complete Time: 15:55 EDMS 05/21 15:57 Order name: BMP; Complete Time: 16:32 pm1 05/21 15:57 Order name: IV Saline Lock; Complete Time: 15:58 pm1 05/21 17:09 Order name: Glucose, Ancillary Testing; Complete Time: 17:17 EDMS Administered Medications: 16:04 Drug: NS 0.9% 500 ml Route: IV; Rate: bolus; Site: PICC; sv 16:45 Follow up: Response: No adverse reaction; IV Status: Completed infusion; IV Intake: sv 500ml Disposition: 05/22 14:25 Co-signature as Attending Physician, Hernan Dobson MD. rn Disposition: 05/21/20 17:18 Discharged to Home. Impression: Hyperglycemia, unspecified. - Condition is Stable. - Discharge Instructions: Hyperglycemia, How and Where to Give Subcutaneous Insulin Injections, Adult, Blood Glucose Monitoring, Adult, Diabetes and Exercise. - Medication Reconciliation Form, Thank You Letter, Antibiotic Education, Prescription Opioid Use form. - Follow up: Emergency Department; When: As needed; Reason: Worsening of condition. Follow up: Private Physician; When: 2 - 3 days; Reason: Recheck today's complaints, Continuance of care, Re-evaluation by your physician. - Problem is new. - Symptoms have improved. Signatures: Dispatcher [employer] Marcia Frankel RN RN sv Nieto, Roman, MD MD rn Marinas, Patrick, ANDREA ELECTRICAL TECHNICIAN INSTRUCTOR pm1 Patricia Marquis RN RN ca1 Corrections: (The following items were deleted from the chart) 05/21 17:51 17:18 05/21/2020 17:18 Discharged to Home. Impression: Hyperglycemia, unspecified. sv Condition is Stable. Forms are Medication Reconciliation Form, Thank You Letter, Antibiotic Education, Prescription Opioid Use. Follow up: Emergency Department; When: As needed; Reason: Worsening of condition. Follow up: Private Physician; When: 2 - 3 days; Reason: Recheck today's complaints, Continuance of care, Re-evaluation by your physician. Problem is new. Symptoms have improved. pm1
[2020-05-21 20:10] VITALS: TEMP 97
[2020-05-21 20:12] VITALS: BP 126/61; O2SAT 100
== END 2020-05-21 17:51 | disposition home or self-care (01) ==
LOC: ER 15:27
DX: E11.65 Type 2 diabetes mellitus with hyperglycemia (principal); I10 Essential (primary) hypertension; E78.00 Pure hypercholesterolemia, unspecified; Z95.0 Presence of cardiac pacemaker; Z95.1 Presence of aortocoronary bypass graft; Z95.5 Presence of coronary angioplasty implant and graft
CPT/HCPCS: 80048; 36415; 82947 ×2; 96360; 99284; J7040

== ENCOUNTER 2020-08-23 15:11 | Emergency (ER) | payer OTHER, MEDICARE ==
[2020-08-23 18:25] LABS: Basophils % 1.1 % (0-1.3); Hematocrit 37.6 % (39.6-49.0); Lymphocytes % 30.1 % (15.3-44.8); MPV 8.4 fL (7.6-11.3); RBC Red Blood Cell Count 4.44 M/uL (4.33-5.43)
[2020-08-23 18:42] LABS: ALT/SGPT 66 U/L (12-78); AST/SGOT 64 U/L (15-37); Albumin 3.7 g/dL (3.4-5.0); Alkaline Phosphatase 95 U/L (45-117); BUN Blood Urea Nitrogen 58 mg/dL (7-18); Bicarbonate 26 mmol/L (21-32); Bilirubin Direct 0.2 mg/dL (0-0.2); Bilirubin Total 0.6 mg/dL (0.2-1.0); Glucose Level 152 mg/dL (74-106); Lipase 186 U/L (73-393); Potassium 3.8 mmol/L (3.5-5.1); Protein, Total 8.2 g/dL (6.4-8.2); Sodium Level 138 mmol/L (136-145); Troponin (Emerg Dept Use Only) < 0.02 ng/mL (0.0-0.045)
[2020-08-23 19:30] LABS: Urine Blood 3+ (NEG); Urine Glucose 2+ (NEG); Urine Protein NEGATIVE (NEG)
--- NOTE | 2020-08-23 19:31 | RAD REPORT ---
EXAM DESCRIPTION: CT - Stone Protocol - 08/23/2020 7:12 pm CLINICAL HISTORY: abdominal pain COMPARISON: CT ABDOMEN PELVIS WO CONTRAST dated 06/08/2012 TECHNIQUE: All CT scans are performed using dose optimization technique as appropriate and may include automated exposure control or mA/KV adjustment according to patient size. Axial 3 mm thick images were obtained without oral or IV contrast. The [id number] spans the entire ty of the system including uppermost abdomen and lung bases. FINDINGS: No suspicious findings in the lung bases. No pericardial effusion. Partially imaged aortic stent identified. Bilateral mild to moderate gynecomastia noted. The liver, spleen and pancreas show no suspicious findings on non-contrast imaging. Cholecystectomy c lips are present. No biliary tree dilatation. No hydronephrosis or suspicious renal mass. No new adrenal finding. A 2.6 centimeter fatty adrenal m ass on the right has not changed. A 4.4 centimeter exophytic right renal cyst has enlarged but otherw ise shows no worrisome or significant interval change. Isodense renal masses and pyelonephritis canno t be excluded in the absence of IV contrast. Urinary bladder is fully contracted limiting assessment. No bladder calculi. Enlarged prostate gland noted. No dilated bowel loops or bowel wall thickening. No active GI process seen. No free air, free fluid o r inflammatory stranding. No mass or bulky lymphadenopathy. Bilateral fat filled inguinal hernias are present. Disc and bone degenerative changes are present. No pathologic bone process identifiable. IMPRESSION: Non-contrast enhanced CT abdomen and pelvis imaging show no acute or emergent finding. Nonacute findings detailed in the body of the report. Full assessment is limited is the absence of IV contrast.
--- NOTE | 2020-08-23 19:46 | ER ---
Nurse's Notes [facility] Name: Gilmer Mercado Age: 85 yrs Sex: Male : 1935 Arrival Date: 08/23/2020 Time: 15:14 Bed 16 Private MD: Diagnosis: Unspecified abdominal pain;Urinary tract infection, site not specified Presentation: 08/23 15:32 Chief complaint: Patient states: Admitted to [place] last week for heart problems. ll1 States he has had abdominal pain with nausea all week. No fever. When he eats the pain and nausea gets worse. Denies CP at this time. States his heart seems fine now. Coronavirus screen: Client denies travel out of the [place] in the last 14 days. At this time, the client does not indicate any symptoms associated with coronavirus-19. Ebola Screen: Patient denies travel to an Ebola-affected area in the 21 days before illness onset. Initial Sepsis Screen: Does the patient meet any 2 criteria? No. Patient's initial sepsis screen is negative. Does the patient have a suspected source of infection? Yes: Acute abdominal pain. Risk Assessment: Do you want to hurt yourself or someone else? Patient reports no desire to harm self or others. Onset of symptoms was August 16, 2020. 15:32 Method Of Arrival: Wheelchair ll1 15:32 Acuity: VIN 3 ll1 Historical: - Allergies: 15:31 No Known Allergies; ll1 - PMHx: 15:31 Hypertension; Diabetes - IDDM; Pacemaker; High Cholesterol; BPH; PNUEMONIA; ll1 - PSHx: 15:31 Thyroidectomy; CABG; Heart stents; HEART VALVE REPLACEMENT; DEFIBRILLATOR; ll1 - Immunization history:: Flu vaccine is up to date. - Social history:: Smoking status: Patient denies any tobacco usage or history of. Screenin:21 Abuse screen: Denies threats or abuse. Denies injuries from another. Nutritional jl7 screening: No deficits noted. Tuberculosis screening: No symptoms or risk factors identified. Fall Risk IV access (20 points). Total Bell Fall Scale indicates No Risk (0-24 pts). Assessment: 18:21 General: Appears in no apparent distress. uncomfortable, Behavior is calm, cooperative, jl7 appropriate for age. Pain: Complains of pain in umbilical area Pain does not radiate. Pain currently is 5 out of 10 on a pain scale. Pain began "A while ago" Pt reports was seen at [facility] last week, no diagnosis given. Neuro: Level of Consciousness is awake, alert, obeys commands, Oriented to person, place, time, situation. Cardiovascular: Patient's skin is warm and dry. Respiratory: Airway is patent Respiratory effort is even, unlabored, Respiratory pattern is regular, symmetrical. GI: Abdomen is round non-distended, Stools are reported to be loose, Reports nausea, Patient currently denies diarrhea, vomiting. : No signs and/or symptoms were reported regarding the genitourinary system. Derm: Skin is pink, warm \\T\\ dry. 19:10 Reassessment: Patient appears in no apparent distress at this time. Patient and/or em family updated on plan of care and expected duration. Pain level reassessed. Patient is alert, oriented x 3, equal unlabored respirations, skin warm/dry/pink. Vital Signs: 15:32 BP 109 / 59; Pulse 72; Resp 16; Temp 97.6; Pulse Ox 100% ; Weight 91.63 kg; Height 5 ll1 ft. 11 in. (180.34 cm); Pain 5/10; 18:52 BP 121 / 60; Pulse 70; Resp 15; Pulse Ox 96% ; jl7 15:32 Body Mass Index 28.17 (91.63 kg, 180.34 cm) ll1 ED Course: 15:14 Patient arrived in ED. rg4 15:31 Arm band placed on. ll1 15:34 Triage completed. 1 17:45 Abel English PA is PHCP. [facility] 17:45 Layla Buchanan MD is Attending Physician. [facility] 17:56 Radha Ni RN is Primary Nurse. jl7 18:21 Patient has correct armband on for positive identification. Bed in low position. Call jl7 light in reach. Side rails up X2. school bus monitor on. Pulse ox on. NIBP on. Warm blanket given. 18:21 Initial lab(s) drawn, by me, sent to lab. Inserted saline lock: 22 gauge in left wrist, jl7 using aseptic technique. Blood collected. Patient maintains SpO2 saturation greater than 95% on room air. 18:22 EKG done, by ED staff, reviewed by Abel SHULTZ. [facility] 19:12 CT Stone Protocol In Process Unspecified. EDMS 19:17 Urine collected: straight cath specimen, cloudy. Straight cath inserted, using sterile jl7 technique, 16 Fr. Specimen obtained. Returned cloudy urine. Patient tolerated well. 19:44 Jhian Jurado MD is Referral Physician. jmm 20:35 No provider procedures requiring assistance completed. IV discontinued, intact, em bleeding controlled, No redness/swelling at site. Pressure dressing applied. Administered Medications: 20:25 Drug: Ondansetron (Zofran) 4 mg Route: PO; em 20:34 Follow up: Response: Medication administered at discharge. em 20:35 Not Given (Patient Refused): Pepcid 20 mg IVP once em 20:35 Not Given (Other Intervention Used): Zofran (Ondansetron) 4 mg IVP once; over 2 minutes em Outcome: 19:45 Discharge ordered by MD. jmm 20:35 Discharged to home via wheelchair, with family. em 20:35 Condition: improved 20:35 Discharge instructions given to patient, significant other, Instructed on discharge instructions, follow up and referral plans. medication usage, Demonstrated understanding of instructions, follow-up care, medications, Prescriptions given X 4. 20:37 Patient left the ED. em Addendum: 08/28/2020 16:30 Addendum: Culture Results: Positive urine culture. Bacteria is resistant to, has a a5 intermediate sensitivity, or is not tested against prescribed antibiotics. Report given to RADHA for further evaluation and then to ophthalmologist retina specialist for follow up with patient. Phone call Attempt #1 left voice mail. Signatures: Dispatcher [employer] EDMS Abel English PA PA Jared Barakat, RN RN em Liliya Amador, RN RN Phyllis Lopez Jahala RN RN [email or web address] Beatris Husain 3 Cielo Mcqueen, RN RN ll1 Corrections: (The following items were deleted from the chart) 08/23 20:36 20:35 Patient did not have IV access during this emergency room visit. em em
--- NOTE | 2020-08-23 19:46 | EDPHYS ---
Physician Documentation [facility] Name: Gilmer Mercado Age: 85 yrs Sex: Male : 1935 Arrival Date: 08/23/2020 Time: 15:14 Bed 16 Private MD: ED Physician Layla Buchanan HPI: 08/23 17:59 This 85 yrs old Male presents to ER via Wheelchair with complaints of jmm Abdominal Pain. 17:59 The patient presents with abdominal pain. Onset: The symptoms/episode began/occurred jmm gradually, 1 week(s) ago. The symptoms do not radiate. Associated signs and symptoms: Pertinent positives: anorexia, Pertinent negatives: nausea and vomiting, chest pain, diarrhea, shortness of breath, testicular pain, vomiting. The symptoms are described as achy. Modifying factors: The symptoms are alleviated by nothing, the symptoms are aggravated by food. The patient has not experienced similar symptoms in the past. Patient states he has been unable to eat due to pain. Historical: - Allergies: 15:31 No Known Allergies; ll1 - PMHx: 15:31 Hypertension; Diabetes - IDDM; Pacemaker; High Cholesterol; BPH; PNUEMONIA; ll1 - PSHx: 15:31 Thyroidectomy; CABG; Heart stents; HEART VALVE REPLACEMENT; DEFIBRILLATOR; ll1 - Immunization history:: Flu vaccine is up to date. - Social history:: Smoking status: Patient denies any tobacco usage or history of. ROS: 17:59 Constitutional: Negative for fever, chills, and weight loss, Cardiovascular: Negative jm for chest pain, palpitations, and edema, Respiratory: Negative for shortness of breath, cough, wheezing, and pleuritic chest pain. 17:59 Abdomen/GI: Positive for abdominal pain. 17:59 All other systems are negative. Exam: 17:59 Head/Face: atraumatic. Eyes: EOMI, no conjunctival erythema appreciated ENT: Moist jmm Mucus Membranes Neck: Trachea midline, Supple Chest/axilla: Normal chest wall appearance and motion. Cardiovascular: Regular rate and rhythm. No edema appreciated Respiratory: Normal respirations, no respiratory distress appreciated 17:59 Back: Normal ROM Skin: General appearance color normal MS/ Extremity: Moves all extremities, no obvious deformities appreciated, no edema noted to the lower extremities Neuro: Awake and alert, normal gait Psych: Behavior is normal, Mood is normal, Patient is cooperative and pleasant 17:59 Constitutional: The patient appears alert, awake, uncomfortable. 17:59 Abdomen/GI: Inspection: obese Bowel sounds: normal, Palpation: soft, mild abdominal tenderness, in the umbilical area. Vital Signs: 15:32 BP 109 / 59; Pulse 72; Resp 16; Temp 97.6; Pulse Ox 100% ; Weight 91.63 kg; Height 5 ll1 ft. 11 in. (180.34 cm); Pain 5/10; 18:52 BP 121 / 60; Pulse 70; Resp 15; Pulse Ox 96% ; jl7 15:32 Body Mass Index 28.17 (91.63 kg, 180.34 cm) ll1 MDM: 17:49 Patient medically screened. [facility] 19:40 Data reviewed: vital signs, nurses notes. Counseling: I had a detailed discussion with richard the patient and/or guardian regarding: the historical points, exam findings, and any diagnostic results supporting the discharge/admit diagnosis, lab results, radiology results, the need for outpatient follow up, to return to the emergency department if symptoms worsen or persist or if there are any questions or concerns that arise at home. ED course: Patient is alert and non toxic in appearance in the ED. No signs of resp distress. CT negative for an acute process. Patient is advised to follow up with GI. patient is otherwise given strict return precautions. patient understood and agrees with the plan of care. . 08/23 17:53 Order name: Basic Metabolic Panel; Complete Time: 18:43 [facility] 08/23 17:53 Order name: CBC with Diff; Complete Time: 18:31 [facility] 08/23 17:53 Order name: Hepatic Function; Complete Time: 18:43 [facility] 08/23 17:53 Order name: Lipase; Complete Time: 18:43 [facility] 08/23 17:53 Order name: IV Saline Lock; Complete Time: 18:21 [facility] 08/23 17:53 Order name: Labs collected and sent; Complete Time: 18:21 [facility] 08/23 17:53 Order name: Troponin (emerg Dept Use Only); Complete Time: 18:43 [facility] 08/23 17:53 Order name: EKG - Nurse/Tech; Complete Time: 18:33 [facility] 08/23 17:56 Order name: Urine Dipstick-Ancillary (obtain specimen); Complete Time: 19:23 [facility] 08/23 18:44 Order name: CT Stone Protocol; Complete Time: 19:39 [facility] 08/23 19:16 Order name: Urine Dipstick--Ancillary (enter results) mw2 08/23 19:17 Order name: Urine Culture jl7 08/23 19:17 Order name: Urine Dipstick-Ancillary; Complete Time: 19:39 [facility] 08/23 19:17 Order name: Urine Culture EDNC Administered Medications: 20:25 Drug: Ondansetron (Zofran) 4 mg Route: PO; em 20:34 Follow up: Response: Medication administered at discharge. em 20:35 Not Given (Patient Refused): Pepcid 20 mg IVP once em 20:35 Not Given (Other Intervention Used): Zofran (Ondansetron) 4 mg IVP once; over 2 minutes em Disposition: 08/23/20 19:45 Discharged to Home. Impression: Unspecified abdominal pain, Urinary tract infection, site not specified. - Condition is Stable. - Discharge Instructions: Abdominal Pain, Adult. - Prescriptions for Bentyl 20 mg Oral Tablet - take 1 tablet by ORAL route every 6 hours As needed; 20 tablet. Pepcid 20 mg Oral Tablet - take 1 tablet by ORAL route every 12 hours As needed; 30 tablet. Zofran ODT 4 mg Oral tablet,disintegrating - place 1 tablet by TRANSLINGUAL route every 4-6 hours; 30 tablet. Cephalexin 500 mg Oral Capsule - take 1 capsule by ORAL route every 8 hours for 10 days; 30 capsule. - Medication Reconciliation Form, Thank You Letter, Antibiotic Education, Prescription Opioid Use form. - Follow up: Jihan Jurado MD; When: 2 - 3 days; Reason: Recheck today's complaints, Continuance of care, Re-evaluation by your physician. Addendum: 09/15/2020 02:10 Co-signature as Attending Physician, Layla Buchanan MD. m a2 Signatures: Dispatcher [employer] EDAbel Souza PA PA jmm Munoz, Edgar, RN RN em Layla Buchanan MD MD ma2 Cielo Mcqueen RN RN ll1 Corrections: (The following items were deleted from the chart) 08/23 19:55 19:45 08/23/2020 19:45 Discharged to Home. Impression: Unspecified abdominal pain. [facility] Condition is Stable. Forms are Medication Reconciliation Form, Thank You Letter, Antibiotic Education, Prescription Opioid Use. Follow up: Jihan Jurado; When: 2 - 3 days; Reason: Recheck today's complaints, Continuance of care, Re-evaluation by your physician. richard 20:37 19:55 08/23/2020 19:45 Discharged to Home. Impression: Unspecified abdominal pain; em Urinary tract infection, site not specified. Condition is Stable. Discharge Instructions: Abdominal Pain, Adult. Prescriptions for Bentyl 20 mg Oral Tablet - take 1 tablet by ORAL route every 6 hours As needed; 20 tablet, Pepcid 20 mg Oral Tablet - take 1 tablet by ORAL route every 12 hours As needed; 30 tablet, Zofran ODT 4 mg Oral tablet,disintegrating - place 1 tablet by TRANSLINGUAL route every 4-6 hours; 30 tablet. and Forms are Medication Reconciliation Form, Thank You Letter, Antibiotic Education, Prescription Opioid Use. Follow up: Jihan Jurado; When: 2 - 3 days; Reason: Recheck today's complaints, Continuance of care, Re-evaluation by your physician. richard
[2020-08-23] MEDS ORDERED: ONDANSETRON 4 MG/2 ML VIAL ONE (20:22)
[2020-08-23] MEDS ORDERED: FAMOTIDINE 20 MG/2 ML VIAL IV ONE (20:23)
[2020-08-23 20:41] VITALS: TEMP 97.6
[2020-08-23 20:42] VITALS: BP 121/60; O2SAT 96
== END 2020-08-23 20:37 | disposition home or self-care (01) ==
LOC: ER 15:11
DX: N39.0 Urinary tract infection, site not specified (principal); R10.9 Unspecified abdominal pain
CPT/HCPCS: 93005; 87088; 85025; 87086; 80048; 36415; 80076; 87077; 87186; 81003; 84484; 83690; 76377; 74176; 51702; 99285; J2405

== ENCOUNTER 2021-07-31 11:22 | Inpatient (IN) | payer OTHER, MEDICARE ==
--- OUTSIDE RECORDS SUMMARY | 2021-07-31 11:26 | XMS REPORT | Continuity of Care Document ---
:[address] [facility] t Address [address] [place] [address] Care Team Providers Name Role Phone Vianey SUÁREZ Primary Care Physician Unavailable ABBIE Attending Clinician Unavailable LINDA LEIVA Attending Clinician Unavailable JOSE ARMANDO Attending Clinician Unavailable INGRID Attending Clinician Unavailable MD SHI QUINTERO Attending Clinician Unavailable Tyrell SIDDIQUI Attending Clinician Unavailable Tyrell Siddiqui MD Attending Clinician FRANKI Attending Clinician Unavailable GUSTAVO Attending Clinician Unavailable RADHA Attending Clinician Unavailable AIXA Attending Clinician Unavailable MD Richard KRUSE Attending Clinician Unavailable XU Attending Clinician Unavailable MD CELINA Attending Clinician Unavailable MARIA EUGENIA Attending Clinician Unavailable ROSE Attending Clinician Unavailable KEENAN Attending Clinician Unavailable ALIDA Attending Clinician Unavailable MD MARY DOAN Attending Clinician Unavailable Sangita Attending Clinician Unavailable SAVANA Attending Clinician Unavailable MD LUCY SAWANT Attending Clinician Unavailable TRISHA Attending Clinician Unavailable BRITTANY Attending Clinician Unavailable KELVIN Attending Clinician Unavailable INGRID Admitting Clinician Unavailable MD SHI QUINTERO Admitting Clinician Unavailable AIXA Admitting Clinician Unavailable MD Richard KRUSE Admitting Clinician Unavailable CELINA Admitting Clinician Unavailable MD CELINA Admitting Clinician Unavailable ALIDA Admitting Clinician Unavailable MD MARY DOAN Admitting Clinician Unavailable Arsenio_Giovani Admitting Clinician Unavailable FRANKI Admitting Clinician Unavailable ROBERT Admitting Clinician Unavailable MD BAIRON JONES Admitting Clinician Unavailable BRITTANY Admitting Clinician Unavailable KELVIN Admitting Clinician Unavailable Payers Payer Name Policy Type Policy Number Effective Date Expiration Date Gladys luciano MEDICARE PART A AND [id number] 2016 B 00:00:00 [facility] [id number] 2017 MEDICARE SUPPLEMENT 00:00:00 MEDICARE PART A \T\ [id number] 2001 B 00:00:00 Problems Condition Condition Condition Status Onset Resolution Last Treating Co mments Source Name Details Category Date Date Treatment Clinician Date No known No known Disease Unive rs active active ity of problems problems [facility] Allergies, Adverse Reactions, Alerts Allergy Allergy Status Severity Reaction(s) Onset Inactive Treating Comm ents Source Name Type Date Date Clinician NO KNOWN Drug Active Univers ALLERGIE Class ity of S [facility] Social History Social Habit Start Date Stop Date Quantity Comments Source Exposure to Not sure [facility]-CoV-2 [facility] (event) Branch Alcohol intake 2021-06-21 2021-06-21 Current [facility] 00:00:00 00:00:00 non-drinker of [facility] alcohol Branch (finding) Tobacco use and 2017-04-08 2017-04-08 Never used Universit y of exposure 00:00:00 00:00:00 [facility] Sex Ass[birth year] At [birth year] Universit y of 00:00:00 00:00:00 [facility] Smoking Status Start Date Stop Date Source Never smoker [facility] Medications Ordered Filled Start Stop Current Ordering Indication Dosage Frequency Signature Comments Components Source Medication Medication Date Date Medication? Clinician (SIG) Name Name torsemide Yes 20mg QD Take 20 mg UT (Demadex) 6-28 by mouth 1 Heal th 20 MG 16:47: (one) time tablet 50 each day. tamsulosin 0 Yes QD Take by [facility] (Flomax) 6-28 mouth 1 Health 0.4 MG 24 16:47: (one) time hr capsule 50 each day. dicyclomine 0 Yes 10mg Q.25D Take 10 mg UT (Bentyl) 10 6-28 by mouth 4 He alth MG capsule 16:47: (four) 50 times a day. cetirizine Yes 10mg QD Take 10 mg U T (ZyrTEC) 10 6-28 by mouth 1 He alth MG tablet 16:47: (one) time 50 each day. cephalexin 2021-0 Yes 250mg Q.25D Take 250 U T (Keflex) 6-28 mg by Health 250 MG 16:47: mouth 4 capsule 50 (four) times a day. febuxostat 202-0 Yes Take by UT (Uloric) 40 6-28 mouth. Health MG tablet 16:47: 50 pantoprazol 2021-0 Yes 40mg Take 40 mg UT e 6-28 by mouth 1 Health (ProtoNix) 16:47: (one) time 40 MG EC 50 each day tablet before breakfast. Do not crush, chew, or split. levothyroxi 2020-0 Yes Take by UT ne 6-28 mouth 1 Health (Tirosint) 16:47: (one) time 200 MCG 50 each day capsule before breakfast. gabapentin 2020-0 Yes 300mg Q.5D Take 300 UT (Neurontin) 6-28 mg by Health 300 MG 16:47: mouth 2 capsule 50 (two) times a day. ramelteon 2020-0 Yes 8mg Take 8 mg UT (Rozerem) 8 6-28 by mouth Heal th MG tablet 16:47: every 50 night. donepezil 2020-0 Yes 10mg Take 10 mg UT (Aricept) 6-28 by mouth Health 10 MG 16:47: every tablet 50 night. torsemide 2020-0 Yes 20mg QD Take 20 mg UT (Demadex) 6-28 by mouth 1 Heal th 20 MG 16:47: (one) time tablet 50 each day. tamsulosin 2021-0 Yes QD Take by UT (Flomax) 6-28 mouth 1 Health 0.4 MG 24 16:47: (one) time hr capsule 50 each day. dicyclomine 2021-0 Yes 10mg Q.25D Take 10 mg UT (Bentyl) 10 6-28 by mouth 4 He alth MG capsule 16:47: (four) 50 times a day. cetirizine 2021-0 Yes 10mg QD Take 10 mg U T (ZyrTEC) 10 6-28 by mouth 1 He alth MG tablet 16:47: (one) time 50 each day. cephalexin 2021-0 Yes 250mg Q.25D Take 250 U T (Keflex) 6-28 mg by Health 250 MG 16:47: mouth 4 capsule 50 (four) times a day. febuxostat 202-0 Yes Take by UT (Uloric) 40 6-28 mouth. Health MG tablet 16:47: 50 pantoprazol 202-0 Yes 40mg Take 40 mg UT e 6-28 by mouth 1 Health (ProtoNix) 16:47: (one) time 40 MG EC 50 each day tablet before breakfast. Do not crush, chew, or split. levothyroxi 2020-0 Yes Take by UT ne 6-28 mouth 1 Health (Tirosint) 16:47: (one) time 200 MCG 50 each day capsule before breakfast. gabapentin 2020-0 Yes 300mg Q.5D Take 300 UT (Neurontin) 6-28 mg by Health 300 MG 16:47: mouth 2 capsule 50 (two) times a day. ramelteon 2020-0 Yes 8mg Take 8 mg UT (Rozerem) 8 6-28 by mouth Heal th MG tablet 16:47: every 50 night. donepezil 2020-0 Yes 10mg Take 10 mg UT (Aricept) 6-28 by mouth Health 10 MG 16:47: every tablet 50 night. torsemide 2020-0 Yes 20mg QD Take 20 mg UT (Demadex) 6-28 by mouth 1 Heal th 20 MG 16:47: (one) time tablet 50 each day. tamsulosin 2020-0 Yes QD Take by UT (Flomax) 6-28 mouth 1 Health 0.4 MG 24 16:47: (one) time hr capsule 50 each day. dicyclomine 2020-0 Yes 10mg Q.25D Take 10 mg UT (Bentyl) 10 6-28 by mouth 4 He alth MG capsule 16:47: (four) 50 times a day. cetirizine 2020-0 Yes 10mg QD Take 10 mg U T (ZyrTEC) 10 6-28 by mouth 1 He alth MG tablet 16:47: (one) time 50 each day. cephalexin 2020-0 Yes 250mg Q.25D Take 250 U T (Keflex) 6-28 mg by Health 250 MG 16:47: mouth 4 capsule 50 (four) times a day. febuxostat 2020-0 Yes Take by UT (Uloric) 40 6-28 mouth. Health MG tablet 16:47: 50 pantoprazol Yes 40mg Take 40 mg UT e 6-28 by mouth 1 Health (ProtoNix) 16:47: (one) time 40 MG EC 50 each day tablet before breakfast. Do not crush, chew, or split. levothyroxi Yes Take by UT ne 6-28 mouth 1 Health (Tirosint) 16:47: (one) time 200 MCG 50 each day capsule before breakfast. gabapentin Yes 300mg Q.5D Take 300 UT (Neurontin) 6-28 mg by Health 300 MG 16:47: mouth 2 capsule 50 (two) times a day. ramelteon Yes 8mg Take 8 mg UT (Rozerem) 8 6-28 by mouth Heal th MG tablet 16:47: every 50 night. donepezil Yes 10mg Take 10 mg UT (Aricept) 6-28 by mouth Health 10 MG 16:47: every tablet 50 night. finasteride Yes TAKE 1 UT (Proscar) 5 6-28 TABLET Health MG tablet 16:47: DAILY 02 finasteride Yes TAKE 1 UT (Proscar) 5 6-28 TABLET Health MG tablet 16:47: DAILY 02 finasteride Yes TAKE 1 UT (Proscar) 5 6-28 TABLET Health MG tablet 16:47: DAILY 02 finasteride Yes TAKE 1 UT (Proscar) 5 6-22 TABLET Health MG tablet 14:50: DAILY 43 carvedilol Yes 6.25mg Q.5D Take 6.25 UT (Coreg) 5-25 mg by Health 6.25 MG 00:00: mouth 2 tablet 00 (two) times a day. carvedilol Yes 6.25mg Q.5D Take 6.25 UT (Coreg) 5-25 mg by Health 6.25 MG 00:00: mouth 2 tablet 00 (two) times a day. carvedilol Yes 6.25mg Q.5D Take 6.25 UT (Coreg) 5-25 mg by Health 6.25 MG 00:00: mouth 2 tablet 00 (two) times a day. carvedilol Yes 6.25mg Q.5D Take 6.25 UT (Coreg) 5-25 mg by Health 6.25 MG 00:00: mouth 2 tablet 00 (two) times a day. clopidogrel 2020-0 Yes 75mg QD Take 75 mg UT (Plavix) 75 5-11 by mouth 1 He alth MG tablet 00:00: (one) time 00 each day. clopidogrel 1-0 Yes 75mg QD Take 75 mg UT (Plavix) 75 5-11 by mouth 1 He alth MG tablet 00:00: (one) time 00 each day. clopidogrel 2020-0 Yes 75mg QD Take 75 mg UT (Plavix) 75 5-11 by mouth 1 He alth MG tablet 00:00: (one) time 00 each day. clopidogrel 2020-0 Yes 75mg QD Take 75 mg UT (Plavix) 75 5-11 by mouth 1 He alth MG tablet 00:00: (one) time 00 each day. Eliquis 2.5 202-0 Yes 2.5mg Q.5D Take 2.5 U T MG tablet 4-13 mg by Health 00:00: mouth 2 00 (two) times a day. Eliquis 2.5 2020-0 Yes 2.5mg Q.5D Take 2.5 U T MG tablet 4-13 mg by Health 00:00: mouth 2 00 (two) times a day. Eliquis 2.5 2021-0 Yes 2.5mg Q.5D Take 2.5 U T MG tablet 4-13 mg by Health 00:00: mouth 2 00 (two) times a day. Eliquis 2.5 2021-0 Yes 2.5mg Q.5D Take 2.5 U T MG tablet 4-13 mg by Health 00:00: mouth 2 00 (two) times a day. amiodarone 2020-0 Yes 200mg QD Take 200 UT (Pacerone) 3-29 mg by Health 200 MG 00:00: mouth 1 tablet 00 (one) time each day. amiodarone 2021-0 Yes 200mg QD Take 200 UT (Pacerone) 3-29 mg by Health 200 MG 00:00: mouth 1 tablet 00 (one) time each day. amiodarone 2021-0 Yes 200mg QD Take 200 UT (Pacerone) 3-29 mg by Health 200 MG 00:00: mouth 1 tablet 00 (one) time each day. amiodarone 2021-0 Yes 200mg QD Take 200 UT (Pacerone) 3-29 mg by Health 200 MG 00:00: mouth 1 tablet 00 (one) time each day. Jardiance 2021-0 Yes 10mg QD Take 10 mg UT 10 MG 3-11 by mouth 1 Health 00:00: (one) time 00 each day. Jardiance 2021-0 Yes 10mg QD Take 10 mg UT 10 MG 3-11 by mouth 1 Health 00:00: (one) time 00 each day. Jardiance 2021-0 Yes 10mg QD Take 10 mg UT 10 MG 3-11 by mouth 1 Health 00:00: (one) time 00 each day. Jardiance 2021-0 Yes 10mg QD Take 10 mg UT 10 MG 3-11 by mouth 1 Health 00:00: (one) time 00 each day. famotidine 2021-0 Yes 20mg Take 20 mg U T (Pepcid) 20 2-18 by mouth Heal th MG tablet 00:00: every 12 00 (twelve) hours if needed. famotidine 2021-0 Yes 20mg Take 20 mg U T (Pepcid) 20 2-18 by mouth Heal th MG tablet 00:00: every 12 00 (twelve) hours if needed. famotidine 2021-0 Yes 20mg Take 20 mg U T (Pepcid) 20 2-18 by mouth Heal th MG tablet 00:00: every 12 00 (twelve) hours if needed. famotidine 2021-0 Yes 20mg Take 20 mg U T (Pepcid) 20 2-18 by mouth Heal th MG tablet 00:00: every 12 00 (twelve) hours if needed. calcitriol 2021-0 Yes .25ug QD Take 0.25 U T (Rocaltrol) 2-08 mcg by Health 0.25 MCG 00:00: mouth 1 capsule 00 (one) time each day. calcitriol 2021-0 Yes .25ug QD Take 0.25 U T (Rocaltrol) 2-08 mcg by Health 0.25 MCG 00:00: mouth 1 capsule 00 (one) time each day. calcitriol 2021-0 Yes .25ug QD Take 0.25 U T (Rocaltrol) 2-08 mcg by Health 0.25 MCG 00:00: mouth 1 capsule 00 (one) time each day. calcitriol 2020-0 Yes .25ug QD Take 0.25 U T (Rocaltrol) 2-08 mcg by Health 0.25 MCG 00:00: mouth 1 capsule 00 (one) time each day. allopurinol 2020-0 Yes 100mg QD Take 100 U T (Zyloprim) 1-14 mg by Health 100 MG 00:00: mouth 1 tablet 00 (one) time each day. allopurinol 2020-0 Yes 100mg QD Take 100 U T (Zyloprim) 1-14 mg by Health 100 MG 00:00: mouth 1 tablet 00 (one) time each day. allopurinol 2020-0 Yes 100mg QD Take 100 U T (Zyloprim) 1-14 mg by Health 100 MG 00:00: mouth 1 tablet 00 (one) time each day. allopurinol 2020-0 Yes 100mg QD Take 100 U T (Zyloprim) 1-14 mg by Health 100 MG 00:00: mouth 1 tablet 00 (one) time each day. Farxiga 5 2019-07 Yes TAKE ONE UT MG 0-22 (1) Health 00:00: TABLET(S) 00 BY MOUTH ONCE A DAY WITH BREAKFAST. Farxiga 5 2019-07 Yes TAKE ONE UT MG 0-22 (1) Health 00:00: TABLET(S) 00 BY MOUTH ONCE A DAY WITH BREAKFAST. Farxiga 5 2019-07 Yes TAKE ONE UT MG 0-22 (1) Health 00:00: TABLET(S) 00 BY MOUTH ONCE A DAY WITH BREAKFAST. Farxiga 5 2019-07 Yes TAKE ONE UT MG 0-22 (1) Health 00:00: TABLET(S) 00 BY MOUTH ONCE A DAY WITH BREAKFAST. bumetanide 2019-07 Yes TAKE ONE UT (Bumex) 2 0-08 (1) Health MG tablet 00:00: TABLET(S) 00 BY MOUTH IN THE MORNING AND HALF (1/2) A TABLET INTHE AFTERNOON. bumetanide 2019-07 Yes TAKE ONE UT (Bumex) 2 0-08 (1) Health MG tablet 00:00: TABLET(S) 00 BY MOUTH IN THE MORNING AND HALF (1/2) A TABLET INTHE AFTERNOON. bumetanide 2019-07 Yes TAKE ONE UT (Bumex) 2 0-08 (1) Health MG tablet 00:00: TABLET(S) 00 BY MOUTH IN THE MORNING AND HALF (1/2) A TABLET INTHE AFTERNOON. bumetanide 2019-07 Yes TAKE ONE UT (Bumex) 2 0-08 (1) Health MG tablet 00:00: TABLET(S) 00 BY MOUTH IN THE MORNING AND HALF (1/2) A TABLET INTHE AFTERNOON. tadalafil 2016-07 Yes 1 TABLET Univ ers (CIALIS) 20 0-03 DAILY ity of mg tablet 10:04: NEEDED [place] [address] Medical Branch Dexlansopra 2016-07 Yes Take by Un josh zole 0-03 mouth. ity of (DEXILANT) 10:04: [place] 60 mg 57 Medical capsule Branch tadalafil 2016-07 Yes 1 TABLET Univ ers (CIALIS) 20 0-03 DAILY ity of mg tablet 10:04: NEEDED [place] [address] Medical Branch Dexlansopra 2016-07 Yes Take by Un josh zole 0-03 mouth. ity of (DEXILANT) 10:04: [place] 60 mg 57 Medical capsule Branch amiodarone 2016-07 Yes 200mg Take 200 Un josh 200 mg 0-03 mg by ity of tablet 10:04: mouth. [place] [address] Medical Branch aspirin 325 2016-07 Yes 325mg Take 325 U nivers mg tablet 0-03 mg by ity of 10:04: mouth. [place] [address] Medical Branch Azelastine 2016-07 Yes Use in Univ ers (ASTEPRO) 0-03 each ity of 0.15 % 10:04: nostril. [place] (205.5 mcg) Medical nasal spray Branch amiodarone 2016-07 Yes 200mg Take 200 Un josh 200 mg 0-03 mg by ity of tablet 10:04: mouth. [place] [address] Medical Branch aspirin 325 2016-07 Yes 325mg Take 325 U nivers mg tablet 0-03 mg by ity of 10:04: mouth. [place] [address] Medical Branch Azelastine 2016-07 Yes Use in Univ ers (ASTEPRO) 0-03 each ity of 0.15 % 10:04: nostril. [place] (205.5 mcg) Medical nasal spray Branch rosuvastati 2016-07 Yes 1 TABLET Un josh n (CRESTOR) 0-03 DAILY ity of 10 mg 09:38: [address] doxazosin 4 2016-07 Yes 2mg Take 2 mg U nivers mg tablet 0-03 by mouth. ity o f 09:38: [address] fosinopril 2016-07 Yes 20mg Take 20 mg U nivers 20 mg 0-03 by mouth. ity of tablet 09:38: [address] rosuvastati 2016-07 Yes 1 TABLET Un josh n (CRESTOR) 0-03 DAILY ity of 10 mg 09:38: [address] doxazosin 4 2016-07 Yes 2mg Take 2 mg U nivers mg tablet 0-03 by mouth. ity o f 09:38: [address] fosinopril 2016-07 Yes 20mg Take 20 mg U nivers 20 mg 0-03 by mouth. ity of tablet 09:38: [address] cephALEXin Yes TAKE ONE Uni vers 500 mg 9-17 (1) ity of capsule 00:00: [place] Medical EVERY SIX Branch HOURS FOR 10 DAYS. cephALEXin Yes TAKE ONE Uni vers 500 mg 9-17 (1) ity of capsule 00:00[place] Medical EVERY SIX Branch HOURS FOR 10 DAYS. CONTOUR 2016- Yes Univers NEXT STRIPS 8-08 ity of strip 00:00: [address] CONTOUR 2016-0 Yes Univers NEXT STRIPS 8-08 ity of strip 00:00: [address] allopurinol 2016- Yes Univer s 100 mg 7-27 ity of tablet 00:00: [address] allopurinol 0 Yes Univer s 100 mg 7-27 ity of tablet 00:00: [address] calcitriol Yes TAKE ONE Uni vers 0.25 mcg 7-18 (1) ity of capsule 00:00: [place] BY [place]TH Medical ONCE A Branch DAY. calcitriol Yes TAKE ONE Uni vers 0.25 mcg 7-18 (1) ity of capsule 00:00: [place] BY [place]TH Medical ONCE A Branch DAY. levothyroxi Yes TAKE ONE Un josh ne 200 mcg 7-13 (1) ity of tablet 00:00: TABLET(S) [place] 00 BY MOUTH Medical ONCE A DAY Branch IN THE MORNING. levothyroxi 2017-0 Yes TAKE ONE Un josh ne 200 mcg 7-13 (1) ity of tablet 00:00: TABLET(S) BY MOUTH Medical ONCE A DAY Branch IN THE MORNING. Vital Signs Vital Name Observation Time Observation Value Comments Source Systolic blood 2021-06-21 14:58:00 103 mm[Hg] Univer sity [facility] Diastolic blood 2021-06-21 14:58:00 50 mm[Hg] Unive rsity [facility] Body height 2021-06-21 14:58:00 180.3 cm [facility] Body weight 2021-06-21 14:58:00 95.255 kg [facility] BMI 2021-06-21 14:58:00 29.29 kg/m2 [facility] Systolic blood 2021-01-01 16:47:00 116 mm[Hg] [facility] Diastolic blood 2021-01-01 16:47:00 73 mm[Hg] [facility] pressure Heart rate 2021-01-01 16:47:00 79 /min [facility] Body height 2021-01-01 16:47:00 180.3 cm [facility] Body weight 2021-01-01 16:47:00 93.441 kg [facility] BMI 2021-01-01 16:47:00 28.73 kg/m2 [facility] Systolic blood 2021-01-01 16:47:00 116 mm[Hg] [facility] lth pressure Diastolic blood 2021-01-01 16:47:00 73 mm[Hg] UT He alth pressure Heart rate 2021-01-01 16:47:00 79 /min [facility] Body height 2021-01-01 16:47:00 180.3 cm [facility] Body weight 2021-01-01 16:47:00 93.441 kg [facility] BMI 2021-01-01 16:47:00 28.73 kg/m2 [facility] Procedures This patient has no known procedures. Encounters Start End Encounter Admission Attending Care Care Encounter Source Date/Time Date/Time Type Type Clinicians Facility Department ID 2020-11-13 Outpatient ABBIE [facility] [id number] [place] 15:45:00 VIRAJ Ureña 2019-11-18 Outpatient ABBIE [facility] [id number] M [facility] 08:31:52 VIRAJ 2021-07-30 2021-07-30 Outpatient JOSE ARMANDO [facility] [id number] [place] 00:00:00 00:00:00 RICHARD [address] 2021-06-27 2021-07-04 Outpatient INGRID, [facility] [id number] [place] 00:00:00 00:00:00 ALBERT [address] 2021-06-21 2021-06-21 [facility] [id number] [facility] 11:15:00 13:02:13 LORRI prabhakar [facility] 2021-06-21 2021-06-21 [facility] [id number] [facility] 11:15:00 13:02:13 Visit [facility] [id number] [facility] [id number] Anurag as SHALONDA?BLEA [id number] MEDICAL OFFICE [facility] 2021-06-05 2021-06-05 Outpatient EMELY DOAN [facility] [id number] [place] 00:00:00 00:00:[address] 2021-06-05 2021-06-05 Outpatient EMELY DOAN [facility] [id number] [place] 00:00:00 00:00:[address] 2021-05-03 2021-05-03 Outpatient JOSE ARMANDO [facility] [id number] [place] 00:00:00 00:00:00 RICHARD [address] 2021-03-28 2021-03-28 Outpatient JOSE ARMANDO [facility] [id number] [place] 00:00:00 00:00:00 RICHARD [address] 2021-03-02 2021-03-02 Outpatient EMELY DOAN [facility] [id number] [place] 00:00:00 00:00:[address] 2021-01-12 2021-01-12 Outpatient MAIRA CHEN [facility] [id number] [place] 00:00:00 00:00:[address] 2021-01-03 2021-01-03 Outpatient RADHA, [facility] [id number] [place] 00:00:00 00:00:00 ALEJANDRO [address] 2021-01-03 2021-01-03 Outpatient RADHA, [facility] [id number] [place] 00:00:00 00:00:00 ALEJANDRO [address] 2021-01-01 2021-01-01 Office TRINH Leiva 6400 [id number] 11:18:17 12:10:[address] [id number] 2021-01-01 2021-01-01 Office TRINH Leiva 6400 [id number] [place] 11:18:17 12:10:[address] [id number] Health [id number] 2020-12-27 2020-12-27 Telephone TRINH Leiva [facility] [id number] [place] 00:00:00 00:00:00 Viraj SUGAR [id number] Health [facility] [id number] [address] 2 [id number] AND 1 WOMENS 2020-11-10 2020-11-10 Outpatient EMELY DOAN [facility] [id number] [place] 00:00:00 00:00:[address] 2020-11-01 2020-11-01 Outpatient JOSE ARMANDO, [facility] [id number] [place] 00:00:00 00:00:00 RICHARD [address] 2020-10-23 2020-10-27 Inpatient AIXA [facility] [id number] [place] 00:00:00 00:00:00 PAULY [address] 2020-09-22 2020-09-22 Outpatient EMELY DOAN [facility] [id number] [place] 00:00:00 00:00:[address] 2020-08-29 2020-09-11 Inpatient AIXA [facility] [id number] [place] 00:00:00 00:00:00 PAULY [address] 2020-08-25 2020-08-31 Outpatient FRANKI EMELY [facility] [id number] [place] 00:00:00 00:00:[address] 2020-08-15 2020-08-19 Inpatient XU, [facility] [id number] [place] 00:00:00 00:00:00 MARIAH [address] 2020-07-28 2020-07-28 Outpatient EMELY DOAN [facility] [id number] [place] 00:00:00 00:00:[address] 2020-07-28 2020-07-28 Outpatient FRANKI EMELY [facility] [id number] [place] 00:00:00 00:00:[address] 2020-07-14 2020-07-14 Outpatient MAIRA CHEN [facility] [id number] [place] 00:00:00 00:00:[address] 2020-07-13 2020-07-13 Outpatient JOSE ARMANDO, [facility] [id number] [place] 00:00:00 00:00:00 RICHARD [address] 2020-07-13 2020-07-13 Outpatient JANIKOAKUL, [facility] [id number] [place] 00:00:00 00:00:00 SIRAYA [address] 2020-07-12 2020-07-12 Outpatient [facility] [id number] [place] 00:00:00 00:00:[address] 2020-05-26 2020-05-26 Outpatient FRANKI EMELY [facility] [id number] [place] 00:00:00 00:00:[address] 2020-05-23 2020-05-23 Outpatient DELAFLOR-SA [facility] [id number] [place] 00:00:00 00:00:00 NTAANA, [address] 2020-05-08 2020-05-18 Inpatient KEENAN, [facility] [id number] [place] 00:00:00 00:00:00 ANETTE [address] 2020-05-05 2020-05-05 Outpatient FRANKI EMELY [facility] [id number] [place] 00:00:00 00:00:[address] 2020-05-03 2020-05-03 Outpatient JOSE ARMANDO [facility] [id number] [place] 00:00:00 00:00:00 RICHARD [address] 2020-04-26 2020-04-26 Outpatient ALIDA [facility] [id number] [place] 00:00:00 00:00:00 ASHRITH [address] 2020-04-24 2020-04-24 Outpatient EMELY DOAN [facility] [id number] [place] 00:00:00 00:00:[address] 2020-04-14 2020-04-14 Outpatient EMELY DOAN [facility] [id number] [place] 00:00:00 00:00:[address] 2020-04-03 2020-04-03 Outpatient Arsenio_T VFP VFP [id number] 03-26 [facility] 01:57:00 01:57:00 [id number] Family Practic e 2020-03-17 2020-03-17 Outpatient EMELY DOAN [facility] [id number] [place] 00:00:00 00:00:[address] 2020-03-09 2020-03-09 Outpatient DELAFLOR-SA [facility] [id number] [place] 00:00:00 00:00:00 NTAANA, [address] 2020-02-24 2020-03-02 Inpatient EMELY DOAN [facility] [id number] [place] 00:00:00 00:00:[address] 2020-02-23 2020-02-23 Outpatient EMELY DOAN [facility] [id number] [place] 00:00:00 00:00:[address] 2020-02-11 2020-02-11 Outpatient EMELY DOAN [facility] [id number] [place] 00:00:00 00:00:[address] 2020-02-04 2020-02-04 Outpatient JOSE ARMANDO [facility] [id number] [place] 00:00:00 00:00:00 RICHARD [address] 2020-01-20 2020-01-25 Inpatient SAVANA [facility] [id number] [address] [place] 00:00:00 00:00:00 AMITKUMAR [address] 2020-01-12 2020-01-12 Outpatient MAIRA CHEN [facility] [id number] [place] 00:00:00 00:00:[address] 2019-12-31 2019-12-31 Outpatient EMELY DOAN [facility] [id number] [place] 00:00:00 00:00:[address] 2019-12-31 2019-12-31 Outpatient EMELY DOAN [facility] [id number] [place] 00:00:00 00:00:[address] 2019-12-27 2019-12-27 Outpatient TRISHA [facility] [id number] [place] 00:00:00 00:00:00 TRISHA [address] 2019-12-17 2019-12-18 Outpatient BRITTANY, [facility] [id number] [place] 00:00:00 00:00:00 MERCY [address] 2019-11-18 2019-11-18 Outpatient KELVIN, [facility] [id number] [place] 00:00:00 00:00:00 MAHWASH [address] 2019-11-04 2019-11-04 Outpatient JOSE ARMANDO [facility] [id number] [place] 00:00:00 00:00:00 RICHARD [address] 2019-10-19 2019-10-19 Outpatient JOSE ARMANDO [facility] [id number] [place] 00:00:00 00:00:00 RICHARD [address] 2019-09-17 2019-09-17 Outpatient EMELY DOAN [facility] [id number] [place] 00:00:00 00:00:[address] 2019-09-02 2019-09-09 Inpatient AIXA, [facility] 060 [id number] [place] 00:00:00 00:00:00 PAULY [address] Results Test Description Test Time Test Comments Results Result Comments Source SARS-CoV-2 (COVID-19) RNA [Presence] in Respiratory sp ecimen by 2021-07-04 11:35:00 ANDREW with probe detection Test Item Value Reference Range Interpretation Comme nts 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 (test code = 95 418-0) Whether the patient was admitted to intensive care unit (ICU) for c ondition of interest (test code = 49393-4) SARS-CoV-2 (COVID-19) RNA [Presence] in Respiratory specimen by ANDREW with probe [id number] 00:24:51 Test Item Value Reference Range Interpretation Comments SARS-CoV-2 (COVID-19) RNA Not detected Not-Detected [Presence] in Respiratory specimen by ANDREW with probe detection (test code = 26438-6) SARS-CoV-2 (COVID-19) RNA [Presence] in Respiratory specimen by ANDREW with probe [id number] 23:06:04 Test Item Value Reference Range Interpretation Comments SARS-CoV-2 (COVID-19) RNA Not detected Not-Detected [Presence] in Respiratory specimen by ANDREW with probe detection (test code = 81600-1) SARS-CoV-2 (COVID-19) RNA [Presence] in Respiratory specimen by ANDREW with probe [id number] 19:57:13 Test Item Value Reference Range Interpretation Comments SARS-CoV-2 (COVID-19) RNA Not detected Not-Detected [Presence] in Respiratory specimen by ANDREW with probe detection (test code = 92104-8) SARS-CoV-2 (COVID-19) RNA [Presence] in Respiratory specimen by ANDREW with probe [id number] 23:40:00 Test Item Value Reference Range Interpretation Comments SARS-CoV-2 (COVID-19) RNA Not detected Not-Detected [Presence] in Respiratory specimen by ANDREW with probe detection (test code = 12561-1) SARS-CoV-2 (COVID-19) RNA [Presence] in Respiratory specimen by ANDREW with probe [id number] 22:07:46 Test Item Value Reference Range Interpretation Comments SARS-CoV-2 (COVID-19) RNA Not detected Not-Detected [Presence] in Respiratory specimen by ANDREW with probe detection (test code = 19519-6) SARS-CoV-2 (COVID-19) RNA [Presence] in Respiratory specimen by ANDREW with probe [id number] 21:47:42 Test Item Value Reference Range Interpretation Comments SARS-CoV-2 (COVID-19) RNA Not detected Not-Detected [Presence] in Respiratory specimen by ANDREW with probe detection (test code = 84017-2) SARS-CoV-2 (COVID-19) RNA [Presence] in Respiratory specimen by ANDREW with probe [id number] 14:31:58 Test Item Value Reference Range Interpretation Comments SARS-CoV-2 (COVID-19) RNA Not detected Not-Detected [Presence] in Respiratory specimen by ANDREW with probe detection (test code = 09650-9)
[2021-07-31 11:59] LABS: Absolute Lymphocytes (CBC) 1.6 K/uL (0.7-4.9); Hematocrit 33.4 % (39.6-49.0); Lymphocytes % 12.4 % (15.3-44.8); MPV 7.7 fL (7.6-11.3); RBC Red Blood Cell Count 3.81 M/uL (4.33-5.43)
[2021-07-31 12:01] LABS: Protime INR 1.66
[2021-07-31] MEDS ORDERED: NA CHLORIDE 0.9% 500 ML ONE (12:18)
[2021-07-31 12:19] LABS: Albumin 2.1 g/dL (3.4-5.0); Bilirubin Direct 0.2 mg/dL (0-0.2); Bilirubin Total 0.4 mg/dL (0.2-1.0); Magnesium 2.6 mg/dL (1.8-2.4); Potassium 3.5 mmol/L (3.5-5.1); Protein, Total 6.8 g/dL (6.4-8.2)
[2021-07-31 12:20] LABS: Troponin High Sensitivity 20.7 pg/mL (<58.9)
--- NOTE | 2021-07-31 12:36 | RAD REPORT ---
EXAM DESCRIPTION: RAD - Chest Single View - 07/31/2021 12:30 pm CLINICAL HISTORY: weakness Chest pain. COMPARISON: Chest Pa And Lat (2 Views) dated 03/09/2021; Chest Single View dated 05/20/2018; Chest Pa And Lat (2 Views) dated 08/19/2016; Chest Pa And Lat (2 Views) dated 02/08/2016 FINDINGS: Portable technique limits examination quality. Mild bilateral pulmonary opacities are present most compatible with pulmonary edema. The heart is mil dly to moderately enlarged with changes of a prior CABG. Multi lead pacer/defibrillator device presen t.Sternotomy wires are noted. IMPRESSION: Mild to moderate CHF pattern.
--- NOTE | 2021-07-31 13:05 | RAD REPORT ---
EXAM DESCRIPTION: CT - Head C Spine Cap Wo Con - 07/31/2021 12:38 pm CLINICAL HISTORY: Trauma, head and neck injury. Chest, abdomen and pelvis pain. fall;Weakness COMPARISON: Stone Protocol dated 08/23/2020 TECHNIQUE: CT head without contrast. CT cervical spine without contrast with coronal and sagittal reformatted images. CT chest, abdomen and pelvis without contrast with coronal and sagittal reformatted images of the spi ne. All CT scans are performed using dose optimization technique as appropriate and may include automated exposure control or mA/KV adjustment according to patient size. FINDINGS: CT HEAD WITHOUT CONTRAST: No intracranial hemorrhage, hydrocephalus or extra-axial fluid collection. Moderate generalized brain atrophy is present with mild periventricular and deep white matter chronic microvascular ischemic ch anges. No areas of brain edema or midline shift. The paranasal sinuses and mastoids are clear. The calvarium is intact. CT CERVICAL SPINE WITHOUT CONTRAST: No fracture or subluxation. Mild cervical degenerative changes. The prevertebral soft tissues are nor mal in thickness.Right carotid atherosclerosis. CT CHEST, ABDOMEN, PELVIS WITHOUT CONTRAST: NOTE: Lack of contrast is a significant limitation in the assessment of trauma related findings. Spec ifically, solid organ, vascular and bowel evaluation is significantly limited. Atelectasis is present in the right lung.Small bilateral pleural effusions are present. Pacemaker is noted. No evidence of intra-abdominal visceral injury, free fluid or free air is seen within the above detai led limitations. Cholecystectomy. 3.2 cm fatty mass is seen in the transverse colon likely a lipoma. Right adrenal mass is again noted, unchanged. Exophytic 4 cm cystic lesion right kidney again seen. M oderate fecal retention in the colon. Rectal wall thickening is present which could indicate rectal f ecal impaction. Minimally displaced fracture involves L1 left transverse process. Posterior left eleventh and twelfth rib show fracture with slight callus formation. IMPRESSION: Fracture of the left L1 transverse process is no, likely acute. Left posterior T11 and T12 rib fractures show mild callus formation indicating subacute time frame.
[2021-07-31 13:07] LABS: SARS-COV-2 RT PCR NEGATIVE (NEGATIVE)
[2021-07-31 14:33] LABS: Urine Blood Negative (Negative); Urine Glucose 1+ (Negative); Urine Protein Negative (Negative); Urine Specific Gravity 1.015 (1.005-1.030); Urine pH 5.5 (5.0-7.0)
[2021-07-31 15:05] LABS: Urine Amorphous Sediment TRACE /HPF (NONE SEEN); Urine Bacteria 20-50 /HPF (NONE SEEN); Urine Mucus 3+ /HPF (NONE SEEN); Urine RBC <5 /HPF (NONE SEEN)
--- NOTE | 2021-07-31 15:13 | ER ---
Nurse's Notes [facility] Name: Gilmer Mercado Age: 86 yrs Sex: Male : 1935 Arrival Date: 07/31/2021 Time: 11:25 Bed 28 Private MD: Diagnosis: UTI/ Urinary tract infection, site not specified;Weakness;History of falling Presentation: 07/31 11:26 Chief complaint: Patient states: fall last Friday, tripped and fell backwards while eo2 trying to go inside a [employer] shop, did hit his head, denies LOC, on eliquis. Pt reports lower back and right arm pain since fall. Pt also reports generalized weakness for 1 month, states he had a recent hospitalization at [facility] prior to the fall. EMS called today because pt hasn't been able to get OOB for 3 days. Coronavirus screen: Vaccine status: Patient reports receiving the 2nd dose of the covid vaccine. Client denies travel out of the [place] in the last 14 days. Ebola Screen: Patient negative for fever greater than or equal to 101.5 degrees Fahrenheit, and additional compatible Ebola Virus Disease symptoms Patient denies exposure to infectious person. Patient denies travel to an Ebola-affected area in the 21 days before illness onset. Initial Sepsis Screen: Does the patient meet any 2 criteria? No. Patient's initial sepsis screen is negative. Does the patient have a suspected source of infection? No. Patient's initial sepsis screen is negative. Risk Assessment: Do you want to hurt yourself or someone else? Patient reports no desire to harm self or others. Onset of symptoms is unknown. 11:26 Method Of Arrival: EMS: [facility] eo2 11:26 Acuity: VIN 3 eo2 Triage Assessment: 11:34 General: Appears in no apparent distress. Behavior is calm, cooperative. Pain: eo2 Complains of pain in Lower back and right arm. Historical: - Home Meds: 11:34 allopurinol 100 mg Oral tab [Active]; amiodarone 200 mg Oral tab 1 tab once daily eo2 [Active]; calcitrol [Active]; Eliquis 2.5 mg Oral tab 1 tab 2 times per day [Active]; finasteride 5 mg Oral tab 1 tab once daily [Active]; furosemide 40 mg Oral tab 1 tab once daily [Active]; gabapentin 300 mg Oral cap 2 caps twice a day [Active]; Humulin R 100 unit/mL soln 500 mL 10-20 units daily [Active]; levothyroxine oral 350 mcg tablet daily [Active]; ranitidine HCl 150 mg Oral tab [Active]; simvastatin 20 mg Oral tab 1 tab once daily [Active]; tamsulosin 0.4 mg Oral cp24 1 cap once daily [Active]; Toprol XL 25 mg Oral Tb24 1 tab twice a day [Active]; - PMHx: 11:34 BPH; Diabetes - IDDM; High Cholesterol; Hypertension; Pacemaker; PNUEMONIA; eo2 - PSHx: 11:34 CABG; eo2 - Immunization history:: Adult Immunizations up to date, Client reports receiving the 2nd dose of the Covid vaccine. - Social history:: Smoking status: Patient denies any tobacco usage or history of. Screenin:10 Abuse screen: Denies threats or abuse. Denies injuries from another. Nutritional eo2 screening: No deficits noted. Tuberculosis screening: No symptoms or risk factors identified. Fall Risk Fall in past 12 months (25 points). Secondary diagnosis (15 points) IV access (20 points). Ambulatory Aid- Crutches/Cane/Walker (15 pts). Assessment: 12:06 General: Appears in no apparent distress. Behavior is calm, cooperative. Neuro: Level eo2 of Consciousness is awake, alert, obeys commands, Oriented to person, place, situation, Reports fall last Friday, no LOC, presently denies GIBSON, dizziness.. Cardiovascular: Denies chest pain, Rhythm is atrial pacer ventricular pacer. Respiratory: Reports shortness of breath chronic Breath sounds are diminished bilaterally. GI: Abdomen is round Bowel sounds present X 4 quads. Patient currently denies nausea, vomiting. 12:06 Musculoskeletal: Reports pain in lower back, and right arm/elbow Pt ambulates with eo2 walker, states he hasn't been able to walk for 3 days. 13:42 Reassessment: pending urine sample, pt declines straight cath. Provided water as eo2 requested to help provide urine sample. 17:30 Reassessment: 1st attempt to call report, awaiting receiving nurse's availability. eo2 18:20 Reassessment: pt reports pain 4/10, tolerable, made aware of bed assignment. Pt asked eo2 if diaper needs to be changed, pt states "I'm okay right now". Comfort measures met, will continue to monitor. Vital Signs: 11:26 BP 100 / 56; Pulse 87; Resp 17; Temp 98.4; Pulse Ox 96% ; Weight 91.17 kg; Height 5 ft. eo2 11 in. (180.34 cm); Pain 6/10; 11:30 BP 90 / 38; Pulse 70; Resp 15; Pulse Ox 97% ; eo2 12:00 BP 107 / 55; Pulse 70; Resp 15; Pulse Ox 97% ; eo2 13:00 BP 109 / 55; Pulse 70; Resp 14; Pulse Ox 100% ; Pain 6/10; eo2 14:00 BP 119 / 55; Pulse 70; Resp 15; Pulse Ox 99% ; Pain 4/10; eo2 15:00 BP 109 / 57; Pulse 70; Resp 13; Pulse Ox 99% ; Pain 4/10; eo2 16:00 BP 124 / 55; Pulse 71; Resp 14; Pulse Ox 99% ; eo2 16:45 BP 118 / 54; Pulse 70; Resp 13; Pulse Ox 100% ; eo2 17:30 BP 112 / 50; Pulse 70; Resp 15; Pulse Ox 98% ; Pain 4/10; eo2 18:15 BP 107 / 45; Pulse 70; Resp 14; Pulse Ox 98% on R/A; eo2 11:26 Body Mass Index 28.03 (91.17 kg, 180.34 cm) eo2 Vitals: 11:30 Cardiac Rhythm Assessment Paced. eo2 ED Course: 11:25 Patient arrived in ED. ds1 11:26 Kimberly Ruiz, LUCERO is Primary Nurse. eo2 11:30 Darrian Gant PA is PHCP. cp 11:30 Sergio Liang MD is Attending Physician. cp 11:31 Triage completed. eo2 11:49 Inserted saline lock: 22 gauge in left wrist, using aseptic technique. Blood collected. eo2 12:01 COVID-19/FLU A+B (Document "Date of Onset" if Symptomatic) Sent. eo2 12:01 No provider procedures requiring assistance completed. eo2 12:01 Patient has correct armband on for positive identification. 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 Pulse eo2 ox on. NIBP on. Door closed. Noise minimized. 12:11 Arm band placed on. eo2 12:31 XRAY Chest (1 view) In Process Unspecified. EDMS 12:37 CT Traumagram (Head C Spine CAP wo con) In Process Unspecified. EDMS 15:11 Oscar Rosa is Hospitalizing Provider. cp 16:20 Urine Culture Sent. eo2 16:20 Procalcitonin Sent. eo2 16:20 Lactate Sent. eo2 16:20 Blood Culture Adult (2) Sent. eo2 18:53 Report given to Wendy BARKER. eo2 Administered Medications: 12:18 Drug: NS 0.9% 500 ml Route: IV; Rate: bolus; Site: left wrist; eo2 13:00 Follow up: IV Status: Completed infusion; IV Intake: 500ml eo2 16:55 Drug: Rocephin - (cefTRIAXone) 1 grams Route: IVPB; Infused Over: 30 mins; Site: left eo2 wrist; 17:30 Follow up: Response: No adverse reaction; IV Status: Completed infusion; IV Intake: [id number] Intake: 13:00 IV: 500ml; Total: 500ml. eo2 17:30 IV: 50ml; Total: 550ml. eo2 Outcome: 15:12 Decision to Hospitalize by Provider. cp 19:26 Patient left the ED. bb Signatures: Dispatcher [employer] [facility] Coral Ordoñez ds1 Christiane Haro, RN RN bb Darrian Gant, CARR[place] PA Kimberly Galvin, LUCERO RN eo2 Corrections: (The following items were deleted from the chart) 18:20 17:30 BP 112 / 50; Pulse 70bpm; Resp 15bpm; Pulse Ox 98%; eo2 eo2
--- NOTE | 2021-07-31 15:13 | EDPHYS ---
Physician Documentation [facility] Name: Gilmer Mercado Age: 86 yrs Sex: Male : 1935 Arrival Date: 07/31/2021 Time: : Bed 28 Private MD: ED Physician Sergio Liang HPI: 07/31 11:45 This 86 yrs old Male presents to ER via EMS with complaints of General Weakness and cp Fall. 11:45 Details of fall: The patient fell from an upright position, while walking, and struck a cp concrete surface. 11:45 Onset: The symptoms/episode began/occurred 1 week(s) ago. cp 11:45 Associated injuries: The patient sustained injury to the head, contusion. Patient cp reports increasing general weakness since fall and has been unable to get up out of bed. Historical: - Home Meds: 11:34 allopurinol 100 mg Oral tab [Active]; amiodarone 200 mg Oral tab 1 tab once daily eo2 [Active]; calcitrol [Active]; Eliquis 2.5 mg Oral tab 1 tab 2 times per day [Active]; finasteride 5 mg Oral tab 1 tab once daily [Active]; furosemide 40 mg Oral tab 1 tab once daily [Active]; gabapentin 300 mg Oral cap 2 caps twice a day [Active]; Humulin R 100 unit/mL soln 500 mL 10-20 units daily [Active]; levothyroxine oral 350 mcg tablet daily [Active]; ranitidine HCl 150 mg Oral tab [Active]; simvastatin 20 mg Oral tab 1 tab once daily [Active]; tamsulosin 0.4 mg Oral cp24 1 cap once daily [Active]; Toprol XL 25 mg Oral Tb24 1 tab twice a day [Active]; - PMHx: 11:34 BPH; Diabetes - IDDM; High Cholesterol; Hypertension; Pacemaker; PNUEMONIA; eo2 - PSHx: 11:34 CABG; eo2 - Immunization history:: Adult Immunizations up to date, Client reports receiving the 2nd dose of the Covid vaccine. - Social history:: Smoking status: Patient denies any tobacco usage or history of. ROS: 11:50 Constitutional: Negative for body aches, chills, fever. cp 11:50 Eyes: Negative for injury, pain, redness, and discharge. cp 11:50 ENT: Negative for drainage from ear(s), ear pain, sore throat, difficulty swallowing, difficulty handling secretions. 11:50 Cardiovascular: Negative for chest pain, edema, palpitations. 11:50 Respiratory: Negative for cough, shortness of breath, wheezing. 11:50 Abdomen/GI: Negative for abdominal pain, vomiting, diarrhea, constipation, black/tarry stool, rectal bleeding. 11:50 Skin: Negative for rash. 11:50 Neuro: Positive for weakness, Negative for altered mental status, loss of consciousness, syncope. 11:50 All other systems are negative. Exam: 11:55 Constitutional: The patient appears in no acute distress, alert, awake, cp non-diaphoretic, non-toxic, well developed, well nourished. 11:55 Head/Face: Normocephalic, atraumatic. cp 11:55 Eyes: Periorbital structures: appear normal, Conjunctiva: normal, no exudate, no injection, Sclera: no appreciated abnormality, Lids and lashes: appear normal, bilaterally. 11:55 ENT: External ear(s): are unremarkable, Nose: is normal, Mouth: Lips: dry, Oral mucosa: moist, Posterior pharynx: Airway: no evidence of obstruction, patent, erythema, is not appreciated, exudate, is not appreciated. 11:55 Neck: ROM/movement: is normal, is supple, without pain, no range of motions limitations, no meningismus, no nuchal rigidity. 11:55 Chest/axilla: Inspection: normal, Palpation: is normal, no crepitus, no tenderness. 11:55 Cardiovascular: Rate: normal, Rhythm: regular, Edema: is not appreciated, JVD: is not appreciated. 11:55 Respiratory: the patient does not display signs of respiratory distress, Respirations: labored breathing, is not present, accessory muscle usage, is absent, intercostal retractions, are absent, Breath sounds: are clear throughout, no decreased breath sounds, no stridor, no wheezing. 11:55 Abdomen/GI: Inspection: abdomen appears normal, Bowel sounds: active, all quadrants, Palpation: abdomen is soft and non-tender, in all quadrants. 11:55 Back: pain, is absent, ROM is normal. 11:55 Skin: cellulitis, is not appreciated, no rash present. 11:55 Neuro: Orientation: to person, place \\T\\ time. Mentation: is normal, Motor: moves all fours, general weakness with no focal deficits, Sensation: no obvious gross deficits. 12:05 ECG was reviewed by the Attending Physician. cp Vital Signs: 11:26 BP 100 / 56; Pulse 87; Resp 17; Temp 98.4; Pulse Ox 96% ; Weight 91.17 kg; Height 5 ft. eo2 11 in. (180.34 cm); Pain 6/10; 11:30 BP 90 / 38; Pulse 70; Resp 15; Pulse Ox 97% ; eo2 12:00 BP 107 / 55; Pulse 70; Resp 15; Pulse Ox 97% ; eo2 13:00 BP 109 / 55; Pulse 70; Resp 14; Pulse Ox 100% ; Pain 6/10; eo2 14:00 BP 119 / 55; Pulse 70; Resp 15; Pulse Ox 99% ; Pain 4/10; eo2 15:00 BP 109 / 57; Pulse 70; Resp 13; Pulse Ox 99% ; Pain 4/10; eo2 16:00 BP 124 / 55; Pulse 71; Resp 14; Pulse Ox 99% ; eo2 16:45 BP 118 / 54; Pulse 70; Resp 13; Pulse Ox 100% ; eo2 17:30 BP 112 / 50; Pulse 70; Resp 15; Pulse Ox 98% ; Pain 4/10; eo2 18:15 BP 107 / 45; Pulse 70; Resp 14; Pulse Ox 98% on R/A; eo2 11:26 Body Mass Index 28.03 (91.17 kg, 180.34 cm) eo2 MDM: 11:31 Patient medically screened. cp 12:00 Differential diagnosis: contusion, fracture, multiple trauma, UTI, sepsis, pneumonia, cp dehydration, electrolyte abnormality, COVID-19, cardiac arrythmia. 15:15 Data reviewed: vital signs, nurses notes, lab test result(s), EKG, radiologic studies, cp CT scan, plain films. 15:15 Test interpretation: by ED physician or midlevel provider: ECG, plain radiologic cp studies. Physician consultation: Oscar Rosa was called at 15:10, was contacted at 15:10, regarding admission, to the telemetry unit. patient's condition. 07/31 11:30 Order name: Basic Metabolic Panel; Complete Time: 14:02 cp 07/31 14:02 Interpretation: Normal except: NA 133; CL 96; GLUC 131; BUN 64; CRE 3.46; GFR 17; CA cp 8.0. 07/31 11:30 Order name: CBC with Diff; Complete Time: 14:02 07/31 14:03 Interpretation: Normal except: WBC 12.90; RBC 3.81; HGB 10.8; HCT 33.4; MCV 87.8; RDW cp 18.3; JA% 79.8; LYM% 12.4; NEUT A 10.3. 07/31 11:30 Order name: LFT's; Complete Time: 14:02 07/31 14:36 Interpretation: Normal except: AST 7; ALT 11; ALB 2.1; GLOB 4.7; A/G 0.4. 07/31 11:30 Order name: Magnesium; Complete Time: 14:02 07/31 11:30 Order name: NT PRO-BNP; Complete Time: 14:02 07/31 14:03 Interpretation: Abnormal: NT PRO-BNP 7321. 07/31 11:30 Order name: PT-INR; Complete Time: 14:02 07/31 14:36 Interpretation: Abnormal: PT 19.2. 07/31 11:30 Order name: Troponin HS; Complete Time: 14:02 07/31 11:30 Order name: Urine Microscopic Only; Complete Time: 15:08 07/31 11:31 Order name: COVID-19/FLU A+B (Document "Date of Onset" if Symptomatic); Complete Time: cp 14:07/31 14:32 Order name: Urine Dipstick-Ancillary; Complete Time: 14:36 [facility] 07/31 14:36 Interpretation: Normal except: UGLUC 1+. 07/31 15:06 Order name: Urine Culture [facility] 07/31 15:11 Order name: Procalcitonin 07/31 15:11 Order name: Lactate 07/31 15:11 Order name: Blood Culture Adult (2) 07/31 11:30 Order name: XRAY Chest (1 view); Complete Time: 14:02 07/31 11:30 Order name: EKG; Complete Time: 11:31 07/31 11:30 Order name: Cardiac monitoring; Complete Time: 12:01 07/31 11:30 Order name: EKG - Nurse/Tech; Complete Time: 12:01 07/31 11:30 Order name: IV Saline Lock; Complete Time: 12: 07/31 11:30 Order name: Labs collected and sent; Complete Time: 12: 07/31 11:30 Order name: O2 Per Protocol; Complete Time: 12: 07/31 11:30 Order name: O2 Sat Monitoring; Complete Time: 12:00 07/31 11:30 Order name: Urine Dipstick-Ancillary (obtain specimen); Complete Time: 14:36 07/31 12:05 Order name: CT Traumagram (Head C Spine CAP wo con); Complete Time: 14:02 cp EC:05 Rate is 70 beats/min. Rhythm is regular, Paced. QRS interval is prolonged at 182 msec. cp QT interval is prolonged at 518 msec. T waves are Inverted in leads aVL, aVR. Interpreted by me. Reviewed by me. Administered Medications: 12:18 Drug: NS 0.9% 500 ml Route: IV; Rate: bolus; Site: left wrist; eo2 13:00 Follow up: IV Status: Completed infusion; IV Intake: 500ml eo2 16:55 Drug: Rocephin - (cefTRIAXone) 1 grams Route: IVPB; Infused Over: 30 mins; Site: left eo2 wrist; 17:30 Follow up: Response: No adverse reaction; IV Status: Completed infusion; IV Intake: [id number] Disposition: 08/01 04:40 Co-signature as Attending Physician, Sergio Liang MD I agree with the assessment and sp3 plan of care. Disposition Summary: 07/31/21 15:12 Hospitalization Ordered Hospitalization Status: Inpatient Admission cp Provider: Oscar Rosa cp Location: Telemetry/MedSurg (Inpatient) cp Condition: Stable cp Problem: new cp Symptoms: have improved cp Bed/Room Type: Standard cp Room Assignment: 212(07/31/21 16:26) bd Diagnosis - UTI/ Urinary tract infection, site not specified cp - Weakness cp - History of falling cp Forms: - Medication Reconciliation Form cp - SBAR form cp Signatures: Dispatcher [employer] EDMS Claudine Reyes Corey, PA PA Sergio Lugo MD MD sp3 Kimberly Ruiz RN RN eo2 Corrections: (The following items were deleted from the chart) 07/31 14:36 14:04 Sonya nguyen cp eo2 16:26 15:12 cielo michael
--- NOTE | 2021-07-31 15:56 | P.HP ---
Certification for Inpatient Patient admitted to: Inpatient With expected LOS: >2 Midnights Practitioner: I am a practitioner with admitting privileges, knowledge of patient current condition, hospital course, and medical plan of care. Services: Services provided to patient in accordance with Admission requirements found in Title 42 Section 412.3 of the Code of Federal Regulations Patient History Date of Service: 07/31/21 Reason for admission: Fall and generalized weakness History of Present Illness: 86-year-old gentleman with a history of coronary artery disease, diabetes me llitus type 2, atrial fibrillation, history of chronic heart failure presented to the emergency department due to generalized weakness. Patient stated he fell from an upright position about 1 week ago and since then has felt generally weak and unable to get up and walk. He reports good oral intake. He is on torsemide for diuresis. Blood work done in the emergency department demonstrate acute on chronic renal failure. He has mild hyponatremia, UA with mild evidence of UTI. Patient is hospitalized for further management. Allergies No Known Allergies Allergy (Verified 09/09/18 10:34) Home Medications: Apixaban [Eliquis *] 1 tab PO BID 05/21/18 Cholecalciferol (Vitamin D3) [Vitamin D 1000 Iu Tab*] 1 tab PO BEDTIME 05/21/18 Gabapentin 300 mg PO BID 05/21/18 Insulin Regular, Human [Humulin R U-500 Kwikpen] 20 - 35 units SQ TID 05/21/18 Levothyroxine [Synthroid*] 225 mcg PO DAILY 05/21/18 Metoprolol Tartrate [Lopressor*] 25 mg PO [id number] 05/21/18 Potassium Chloride 20 meq PO BEDTIME 05/21/18 Ranitidine [Zantac*] 1 tab PO BEDTIME 05/21/18 Simvastatin 1 tab PO DAILY 05/21/18 Spironolactone 1 tab PO DAILY 05/21/18 Tamsulosin [Flomax*] 1 tab PO DAILY 05/21/18 allopurinoL [Zyloprim*] 1 tab PO BID 05/21/18 Clopidogrel Bisulfate [Plavix*] 75 mg PO DAILY 05/23/18 Bumetanide [Bumex*] 1 mg PO BID 06/03/18 Finasteride [Proscar*] 5 mg PO DAILY 09/09/18 - Past Medical/Surgical History Diabetic: Yes -: Diabetes mellitus type 2 -: Hypertension -: Hyperlipidemia -: Aortic stenosis requiring percutaneous replacement, December 2015 -: 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 -: Urinary retention -: BPH -: Gout -: Hypothyroidism -: GERD -: Atrial fibrillation -: Thyroidectomy -: CABG x4 vessels -: 2 cardiac stents -: Aortic valve replacement percutaneously -: Cholecystectomy Psychosocial/ Personal History: He is 59 years, has 3 children, 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 - Family History Father -: Heart disease Brother -: Heart disease - Social History Alcohol use: No CD- Drugs: No Caffeine use: Yes Place of Residence: Home Review of Systems Other: He denied any chest pain or shortness of breath. Patient denies any abdominal pain. He denies any headache or confusion. Except as documented, all other systems reviewed and negative. Physical Examination - Physical Exam General: Alert, In no apparent distress, Oriented x3 HEENT: Atraumatic, PERRLA, Mucous membr. moist/pink, Sclerae nonicteric Neck: Supple, JVD not distended Respiratory: Clear to auscultation bilaterally, Normal air movement Cardiovascular: No edema, Regular rate/rhythm, Normal S1 S2 Capillary refill: <2 Seconds Gastrointestinal: Normal bowel sounds, Soft and benign, Non-distended, No tenderness Musculoskeletal: No swelling, No erythema Integumentary: No rashes, No erythema, No cyanosis Neurological: Normal strength at 5/5 x4 extr, Cranial nerves 3-12 intact Lymphatics: No axilla or inguinal lymphadenopathy - Studies Laboratory Data (last 24 hrs) 07/31/21 11:49: PT 19.2 H, INR 1.66 07/31/21 11:49: WBC 12.90 H, Hgb 10.8 L, Hct 33.4 L, Plt Count 226 07/31/21 11:49: Sodium 133 L, Potassium 3.5, BUN 64 H, Creatinine 3.46 H, Glucose 131 H, Magnesium 2.6 H, Total Bilirubin 0.4, AST 7 L, ALT 11 L, Alkaline Phosphatase 93 Assessment and Plan - Problems (Diagnosis) (1) Acute on chronic renal failure Onset Date: 05/22/18 Current Visit: No Status: Acute Qualifiers: Acute renal failure type: unspecified Chronic kidney disease stage: stage 4 (severe) Qualified Code(s): N17.9 - Acute kidney failure, unspecified; N18.4 - Chronic kidney disease, stage 4 (severe) (2) UTI (urinary tract infection) Current Visit: No Status: Acute Qualifiers: Urinary tract infection type: acute cystitis Hematuria presence: without hematuria Qualified Code(s): N30.00 - Acute cystitis without hematuria (3) BPH (benign prostatic hyperplasia) Onset Date: 01/24/16 Current Visit: No Status: Chronic Qualifiers: Lower urinary tract symptom presence: presence of symptoms unspecified Qualified Code(s): N40.0 - Benign prostatic hyperplasia without lower urinary tract symptoms (4) Coronary artery disease Onset Date: 01/24/16 Current Visit: No Status: Chronic Qualifiers: Coronary Disease-Associated Artery/Lesion type: unspecified vessel or lesion type [place] vs. transplanted heart: unspecified whether [place] or transplanted heart Associated angina: angina presence unspecified Qualified Code(s): I25.10 - Atherosclerotic heart disease of [place] coronary artery without angina pectoris (5) Diabetes mellitus Onset Date: 01/24/16 Current Visit: No Status: Chronic Qualifiers: Diabetes mellitus type: type 2 Diabetes mellitus penitentiary insulin use: with exterminator use Diabetes mellitus complication status: without complication Qualified Code(s): E11.9 - Type 2 diabetes mellitus without complications (6) Atrial fibrillation Onset Date: 01/24/16 Current Visit: No Status: Suspected Qualifiers: Atrial fibrillation type: unspecified Qualified Code(s): I48.91 - Unspecified atrial fibrillation - Plan Admit patient to the medical floor. Hydrate briefly with IV fluid. Hold torsemide. Start IV Rocephin for possible UTI. Follow urine culture and blood cultures. Consult PT to evaluate. Continue home medications for atrial fibrillation and coronary artery disease. ADA diet Insulin sliding scale. - Advance Directives Does patient have a Living Will: No Does patient have a Durable POA for Healthcare: Yes
[2021-07-31] MEDS ORDERED: CEFTRIAXONE 1000 MG/VIAL ONE (16:47)
[2021-07-31] MEDS ORDERED: NA CHLORIDE 0.9% 50 ML ONE (16:47)
[2021-07-31] MEDS ORDERED: ONDANSETRON 4 MG/2 ML VIAL IV PRN (20:01)
[2021-07-31] MEDS ORDERED: HEPARIN 5000 UNIT/ML 1 ML VIAL SQ SCH (20:01)
[2021-07-31] MEDS ORDERED: ACETAMINOPHEN 500 MG TAB PO PRN (20:01)
[2021-07-31] MEDS ORDERED: NA CHLORIDE 0.9% 1,000 ML IV SCH (20:01)
[2021-07-31] MEDS ORDERED: TAMSULOSIN 0.4 MG SR CAP PO SCH (21:00)
[2021-07-31] MEDS: INSULIN -REGULAR HUMAN 50 UNIT/0.5 ML ML SQ SCH ×2 (21:00→21:01)
[2021-07-31] MEDS ORDERED: APIXABAN 2.5 MG TABLET PO SCH (21:00)
[2021-07-31] MEDS ORDERED: MAGNES/ALUMIN/SIMET 30ML UCUP PO ONE (21:19)
[2021-07-31] MEDS: APIXABAN 2.5 MG TABLET PO SCH (23:44)
[2021-08-01 01:32] VITALS: O2SAT 96; BMI 28.8
[2021-08-01 04:22] LABS: Absolute Lymphocytes (CBC) 1.6 K/uL (0.7-4.9); Hematocrit 31.2 % (39.6-49.0); Lymphocytes % 15.1 % (15.3-44.8); RBC Red Blood Cell Count 3.55 M/uL (4.33-5.43)
[2021-08-01 06:16] LABS: Magnesium 2.6 mg/dL (1.8-2.4); Phosphorus 4.6 mg/dL (2.5-4.9); Potassium 3.4 mmol/L (3.5-5.1)
[2021-08-01 07:10] LABS: Thyroid Stimulating Hormone 41.5 uIU/mL (0.360-3.740)
[2021-08-01] MEDS: INSULIN -REGULAR HUMAN 50 UNIT/0.5 ML ML SQ SCH ×3 (07:30→16:30)
[2021-08-01] MEDS: APIXABAN 2.5 MG TABLET PO SCH (08:51)
[2021-08-01] MEDS ORDERED: AMIODARONE HCL 200 MG TAB PO SCH (09:00)
[2021-08-01] MEDS ORDERED: POTASSIUM 25 MEQ EFFERV TAB PO ONE (10:24)
--- NOTE | 2021-08-01 13:06 | EKG ---
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
--- NOTE | 2021-08-01 16:26 | P.DS ---
Admission Date: 07/31/21 Discharge Date: 08/01/21 Disposition: TRANSFER TO INPATIENT REHAB Discharge Condition: FAIR Reason for Admission: Fall and generalized weakness - Problems (1) Acute on chronic renal failure Onset Date: 05/22/18 Current Visit: No Status: Acute Qualifiers: Acute renal failure type: unspecified Chronic kidney disease stage: stage 4 (severe) Qualified Code(s): N17.9 - Acute kidney failure, unspecified; N18.4 - Chronic kidney disease, stage 4 (severe) (2) UTI (urinary tract infection) Current Visit: No Status: Acute Qualifiers: Urinary tract infection type: acute cystitis Hematuria presence: without hematuria Qualified Code(s): N30.00 - Acute cystitis without hematuria (3) BPH (benign prostatic hyperplasia) Onset Date: 01/24/16 Current Visit: No Status: Chronic Qualifiers: Lower urinary tract symptom presence: presence of symptoms unspecified Qualified Code(s): N40.0 - Benign prostatic hyperplasia without lower urinary tract symptoms (4) Coronary artery disease Onset Date: 01/24/16 Current Visit: No Status: Chronic Qualifiers: Coronary Disease-Associated Artery/Lesion type: unspecified vessel or lesion type [place] vs. 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 Patient stated he fell from an upright position about 1 week ago and since then has felt generally weak and unable to get up and walk. He reports good oral intake. He is on torsemide for diuresis. Blood work done in the emergency department demonstrate acute on chronic renal failure. He has mild hyponatremia, UA with mild evidence of UTI. Patient is hospitalized for further management. Hospital Course: Patient admitted to the medical floor and hydrated with IV fluid for dehydration. 1 out of 4 blood culture bottle showing GPC in clusters. This is likely a skin contaminant. Patient has no fever, only had mild leukocytosis which resolved with IV hydration-likely hemoconcentration. Noted TSH elevated to 41 denoting hypothyroid state. This could explain patient's weakness. Urine culture yielded mixed growth. His Synthroid dose is increased from 200 mcg daily to 225 mcg daily. Patient accepted to inpatient rehab. Will prescribe oral Doxycycline for possible UTI. Patient seen by PT and accepted to inpatient rehab. Vital Signs/Physical Exam: Temp Pulse Resp BP Pulse Ox 97.5 F 70 17 139/97 H 95 08/01/21 12:00 08/01/21 12:00 08/01/21 12:00 08/01/21 12:00 08/01/21 12:00 General: Alert, In no apparent distress, Oriented x3 HEENT: Mucous membr. moist/pink Neck: JVD not distended Respiratory: Clear to auscultation bilaterally, Normal air movement Cardiovascular: Normal S1 S2, Irregular heart rate/rhythm Gastrointestinal: Normal bowel sounds, Soft and benign, Non-distended, No tenderness Musculoskeletal: No swelling Integumentary: No cyanosis Laboratory Data at Discharge: WBC 10.70 K/uL (4.3-10.9) D 08/01/21 04:02 Hgb 10.1 g/dL (13.6-17.9) L 08/01/21 04:02 Hct 31.2 % (39.6-49.0) L 08/01/21 04:02 Plt Count 217 K/uL (152-406) 08/01/21 04:02 PT 19.2 SECONDS (9.5-12.5) H 07/31/21 11:49 INR 1.66 07/31/21 11:49 Sodium 135 mmol/L (136-145) L 08/01/21 04:02 Potassium Cancelled 08/01/21 Unknown BUN 62 mg/dL (7-18) H 08/01/21 04:02 Creatinine 3.00 mg/dL (0.55-1.3) H 08/01/21 04:02 Glucose 121 mg/dL (74-106) H 08/01/21 04:02 Phosphorus 4.6 mg/dL (2.5-4.9) 08/01/21 04:02 Magnesium 2.6 mg/dL (1.8-2.4) H 08/01/21 04:02 Total Bilirubin 0.4 mg/dL (0.2-1.0) 07/31/21 11:49 AST 7 U/L (15-37) L 07/31/21 11:49 ALT 11 U/L (12-78) L 07/31/21 11:49 Alkaline Phosphatase 93 U/L (45-117) 07/31/21 11:49 Home Medications: Apixaban [Eliquis *] 1 tab PO BID 05/21/18 Cholecalciferol (Vitamin D3) [Vitamin D 1000 Iu Tab*] 1 tab PO BEDTIME 05/21/18 Gabapentin 300 mg PO BID 05/21/18 Insulin Regular, Human [Humulin R U-500 Kwikpen] 20 - 35 units SQ TID 05/21/18 Metoprolol Tartrate [Lopressor*] 25 mg PO [id number] 05/21/18 Simvastatin 1 tab PO DAILY 05/21/18 Spironolactone 1 tab PO DAILY 05/21/18 Tamsulosin [Flomax*] 1 tab PO DAILY 05/21/18 allopurinoL [Zyloprim*] 1 tab PO BID 05/21/18 Clopidogrel Bisulfate [Plavix*] 75 mg PO DAILY 05/23/18 Finasteride [Proscar*] 5 mg PO DAILY 09/09/18 Amiodarone HCl [Cordarone*] 200 mg PO DAILY tab 08/01/21 Donepezil HCl [Aricept] 10 mg PO BEDTIME #30 tablet 08/01/21 Empagliflozin [Jardiance] 10 mg PO DAILY #30 tablet 08/01/21 Insulin Degludec [Tresiba] 40 unit SQ DAILY #1 vial 08/01/21 Levothyroxine [Synthroid*] 0.25 mg PO DAILYAC tab 08/01/21 Pantoprazole [Protonix Tab] 40 mg PO DAILY #30 tab 08/01/21 icosapent ethyL [Vascepa 1 gm Cap] 1 gm PO BID #60 cap 08/01/21 New Medications: Donepezil HCl [Aricept] 10 mg PO BEDTIME #30 tablet Empagliflozin [Jardiance] 10 mg PO DAILY #30 tablet Pantoprazole [Protonix Tab] 40 mg PO DAILY #30 tab Insulin Degludec [Tresiba] 40 unit SQ DAILY #1 vial icosapent ethyL [Vascepa 1 gm Cap] 1 gm PO BID #60 cap Diet: ADA Activity: Fall precautions Followup: OOT,OOT [Primary Care Provider] - Time spent managing pt's care (in minutes): 35
[2021-08-01] MEDS: CEFTRIAXONE 1000 MG/VIAL ONE ×3 (17:19→17:49)
[2021-08-01] MEDS: CEFTRIAXONE 1,000 MG in NA CHLORIDE 0.9% 50 ML IVPB SCH ×2 (17:48→17:49)
[2021-08-01 20:24] VITALS: BP 134/58; TEMP 99.1
[2021-08-02] MEDS ORDERED: LEVOTHYROXINE SOD 0.125 MG TAB PO SCH (06:30)
== END 2021-08-01 20:09 | DRG 683 ==
LOC: ER 11:22 → ERHOLD 15:48 → 2ND 19:28
PROVIDERS: ADMIT Internal Medicine; ATTEND Internal Medicine
DX: N17.9 Acute kidney failure, unspecified (principal); E87.1 Hypo-osmolality and hyponatremia; I12.0 Hypertensive chronic kidney disease with stage 5 chronic kidney disease or end stage renal disease; N30.00 Acute cystitis without hematuria; N18.4 Chronic kidney disease, stage 4 (severe); E11.22 Type 2 diabetes mellitus with diabetic chronic kidney disease; I48.91 Unspecified atrial fibrillation; E86.0 Dehydration; E78.5 Hyperlipidemia, unspecified; K21.9 Gastro-esophageal reflux disease without esophagitis; N40.0 Benign prostatic hyperplasia without lower urinary tract symptoms; I25.10 Atherosclerotic heart disease of native coronary artery without angina pectoris; D72.829 Elevated white blood cell count, unspecified; W18.30XA Fall on same level, unspecified, initial encounter; S00.93XA Contusion of unspecified part of head, initial encounter; Z79.01 Long term (current) use of anticoagulants; Z79.4 Long term (current) use of insulin; Z79.899 Other long term (current) drug therapy; Z95.0 Presence of cardiac pacemaker; Z95.1 Presence of aortocoronary bypass graft; Z79.890 Hormone replacement therapy; Z79.02 Long term (current) use of antithrombotics/antiplatelets; Z95.5 Presence of coronary angioplasty implant and graft; Z90.49 Acquired absence of other specified parts of digestive tract; Z95.2 Presence of prosthetic heart valve; Z20.822 Contact with and (suspected) exposure to COVID-19
CPT/HCPCS: 0240U; 36415; 70450; 71045; 71250; 72125; 80048; 80076; 81003; 81015; 82947; 83605; 83735; 83880; 84100; 84132; 84145; 84439; 84443; 84484; 85025; 85610; 87040; 87086; 87088; 87205; 93005; 96361; 96365; 97110; 97161; 97530; 99285; J2405; J7030; J7040

== ENCOUNTER 2021-08-01 13:38 | Inpatient (IN) | payer OTHER, MEDICARE ==
--- NOTE | 2021-08-01 18:59 | R.PREADM ---
PRE-ADMISSION SCREENING FORM SCREENING DATE AND TIME 08/01/2021 16:40 (SENIOR SQL SERVER DBA) ANTICIPATED REHAB ADMISSION DATE 08/03/2021 REFERRING FACILITY [facility] REFERRAL DATE AND TIME 08/01/2021 16:40 (SENIOR SQL SERVER DBA) REFERRAL ROOM# [id number] ACUTE ADMIT DATE 07/31/2021 Previous Rehabilitation(s): No. 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 Justin Monsalve M.D. MR# [id number] NAME MARCELA ALCARAZ ADDRESS [address] [place] [address] [facility] [id number] DATE OF 1935 AGE 86 SSN# [id number] GENDER male MARITAL STATUS ADMIT FROM 02 - [facility] PRE-HOSPITAL LIVING SETTING 01 - Home (private home/apt. board/care, assisted living, custodial, transitional living) HOME TYPE AND DETAILS Type of home: single family house # of levels in the residence: 1 # of steps within the residence: 0 # of steps to enter the residence: 0 PRE-HOSPITAL LIVING WITH Family/Relatives FAMILY SUPPORT Yes PRIMARY FAMILY CONTACT NAME JOSE ALCARAZ PRIMARY FAMILY CONTACT PHONE PRIMARY FAMILY CONTACT RELATIONSHIP PHONE PRIMARY FAMILY CONTACT ON ADM.? no IS PRIMARY FAMILY CONTACT AUTH. REP.? no 1ST EMERGENCY CONTACT JOSE ALCARAZ 1ST CONTACT PHONE 1ST CONTACT RELATIONSHIP PHONE 1ST CONTACT ON ADM. no IS 1ST CONTACT AUTH. REP.? no PHONE 2ND CONTACT ON ADM.? no PATIENT EMPLOYMENT STATUS Retired (for age) PATIENT EMPLOYER No Employer PAYOR INFORMATION: 1ST PAYOR NAME MEDICARE 1ST PAYOR PHONE 1ST PAYOR INJURY/ILLNESS DUE TO ACCIDENT? No ANOTHER GREEN PARTY RESPONSIBLE? No PRIMARY REHAB/ACUTE DIAGNOSIS: HYPONATREMIA, UTI, L1 TRANSVERSE PROCESS FX, T11-T12 RIB FXS ONSET DATE 07/31/2021 REHAB IMPAIRMENT CATEGORY (TAI): 20 Miscellaneous (Misc) does NOT meet 60% rule PRIMARY DIAGNOSIS-RELATED SURGERIES: N/A RISK FOR COMPLICATIONS: - UTI Monitor for frequency, burning, discomfort, or incontinence Physician medical management as warranted - CVA pt has A-Fib and requires medical monitoring and medication management to reduce risk for CVA - Skin Breakdown Nursing will assess skin daily using assessment tool and will place on Skin Breakdown Precautions as Indicated per protocol - Pain Clinical staff will assess patient's pain level every shift per protocol to monitor for pain manageme nt effectiveness Medications will be given and the pain level reassessed. Clinical Staff may employ other methods such as: massage, distraction, decrease stimulus, etc. as needed Educate patient on pain management strategies - DVT PTT and INR will be monitored to effectively mitigate risk for development of DVT or PE while here. Medications will be administered as per MD - Falls Educated pt on fall prevention strategies to reduce/eliminate fall risk Patient will be evaluated for Fall Precautions and will be placed on Fall Precautions as indicated pe r protocol. - Diabetic Complications Regular monitoring and management of blood glucose levels. pt will receive a specialized diet to help manage blood glucose levels - Pneumonia pt will be instructed on use of and be encouraged to use incentive spirometry Interval Chest X-Rays will be obtained as necessary pt will be trained on deep breathing exercises due to rib fractures SUMMARY OF ACUTE HOSPITALIZATION: Pt. is a 86 yo Right-handed male. On 07/31/2021 he was admitted to [facility] with diagnosis HYPONATREMIA, UTI, L1 TRANSVE RSE PROCESS FX, T11-T12 RIB FXS. His impairment category is Medically Complex Conditions 17 - Other Medically Complex Conditions (17. 9). Pre-morbidly, Pt. was independent/mod-I in Locomotion, Safety Awareness, Social Cognition, and Balanc e; and he had good Transfers Control, Sphincter Control, Communication, Self-Care, and Endurance. Currently, he has deficits of Locomotion, Safety Awareness, Balance, Social Cognition, Transfers Cont rol, Sphincter Control, Communication, Endurance, and Self-Care. Pt. is now referred to [facility] for acute in-patient rehabilitation in order to maximize patient's functional independence in activities of daily living, strength, ROM, and mobi lity. Patient has realistic goal of being discharged at assistance level 7-Ind to reside at Home with Fami ly/Relatives. PAST MEDICAL HISTORY HYPERLIPIDEMIA AFIB Diabetes Mellitus Type 2 CHRONIC HEART FAILURE hypothyroidism HTN AORTIC STENOSIS GERD THYROIDECTOMY GOUT CORONARY ARTERY DISEASE ADA DIET PAST SURGICAL HISTORY: 2 HEART STENTS PACEMAKER Aortic Valve Replacement CHOLECYSTECTOMY CAD CABG X4 VESSELS URINE RETENTION MEDICATION ALLERGIES: No Known Drug Allergies (NKDA) ENVIRONMENTAL ALLERGIES: - Substance Allergies None Known - Other Allergies None Known CODE STATUS: Full code WEIGHT/HEIGHT/BMI: WEIGHT 206 lbs HEIGHT 5' 11" BMI 28.7 DIET: - Diet Type Regular - Diet - Solid Texture Regular - Diet - Liquid Texture Regular - Tube Feed N/A REVIEW OF SYSTEMS: - Gen Alert and awake Lying in bed No apparent distress Oriented to: person, time, and place - Vital Signs Temperature: 97.2 F SBP/DBP: 134/63 Pulse: 69 Resp: 18 Vital signs stable, afebrile - CVS RRR VITAL SIGNS Temperature: 97.2 F SBP/DBP: 134/63 Pulse: 69 Resp: 18 Vital signs stable, afebrile MEDICATIONS/TREATMENT: Other- See attached MAR (Medication Administration Record). CURRENT SPHINCTER CONTROL: Pre-hospital bladder status: unspecified # of bladder accidents in the last 7 days prior to screenin Pre-hospital bowel status: unspecified # of bowel accidents in the last 7 days prior to screenin Last Bowel Movement Date: 08/01/2021 CURRENT LOCOMOTION STATUS: distance walked 0 feet DETAILED CURRENT FUNCTIONAL STATUS: - Bladder accident frequency: 7-Ind - No accidents in the past 7 days - Bowel accident frequency: 7-Ind - No accidents in the past 7 days - Walking score based on distance walked: 0(N/A) - Wheelchair score based on distance traveled: 0(N/A) QI SCORES: - Self-Care A. Eating 03-Partial/moderate assistance B. Oral hygiene 03-Partial/moderate assistance C. Toileting hygiene 02-Substantial/maximal assistance E. Shower/bathe self 02-Substantial/maximal assistance F. Upper body dressing 02-Substantial/maximal assistance G. Lower body dressing 02-Substantial/maximal assistance H. Putting on/taking off footwear 88-Not attempted due to medical condition or safety concerns - Mobility A. Roll left and right 03-Partial/moderate assistance B. Sit to lying 03-Partial/moderate assistance C. Lying to sitting on side of bed 03-Partial/moderate assistance D. Sit to stand 02-Substantial/maximal assistance E. Chair/gkd-lp-pfnaw transfer 02-Substantial/maximal assistance F. Toilet transfer 02-Substantial/maximal assistance G. Car transfer 88-Not attempted due to medical condition or safety concerns I. Walk 10 feet 88-Not attempted due to medical condition or safety concerns J. Walk 50 feet with two turns 88-Not attempted due to medical condition or safety concerns K. Walk 150 feet 88-Not attempted due to medical condition or safety concerns L. Walking 10 feet on uneven surfaces 88-Not attempted due to medical condition or safety concerns M. 1 step (curb) 88-Not attempted due to medical condition or safety concerns N. 4 steps 88-Not attempted due to medical condition or safety concerns O. 12 steps 88-Not attempted due to medical condition or safety concerns P. Picking up object 88-Not attempted due to medical condition or safety concerns R. Wheel 50 feet with two turns 88-Not attempted due to medical condition or safety concerns S. Wheel 150 feet 88-Not attempted due to medical condition or safety concerns - Bladder and Bowel Bladder continence Bowel continence - Endurance Fair - Balance Fair - Safety Awareness Fair CURRENT FUNC. DEFICITS: Self-Care, Mobility, Endurance, Balance, and Safety Awareness CURRENT / PREVIOUS ASSISTIVE DEVICES: Rolling Walker HISTORY OF FALLS. HAS THE PATIENT HAD TWO OR MORE FALLS IN THE PAST YEAR OR ANY FALL WITH INJURY IN T HE PAST YEAR?: Yes PRIOR SURGERY. DID THE PATIENT HAVE MAJOR SURGERY DURING THE 100 DAYS PRIOR TO ADMISSION?: No THERAPY NOTES FROM ACUTE CARE: Attached. SPECIAL NEEDS: - Safety Concerns Skin breakdown precautions needed due to skin breakdown risk PATIENT NEEDS ACTIVE AND ONGOING THERAPEUTIC INTERVENTION OF MULTIPLE THERAPY DISCIPLINES, INCLUDING: - Dietary and Nutrition Adequate Nutrition. Nutritional Education. Nutritional Supplements. - Occupational Therapy Cognitive Retraining. Evaluate and Treat. Transfer Training. ADL Training. Adaptive Equipment. UE Str engthening. Household Tasks. Patient/Family Education. Safety Awareness. Visual Perceptual Training. UE ROM. - Speech Therapy Cognitive Training. Expressive Language Skills. Memory Strategies. Receptive Language Skills. Speech Intelligibility Training. - Physical Therapy Evaluate and Treat. LE Strengthening. Balance Training. Gait Training. Transfer Training. Mobility Tr aining. Safety Awareness. Patient/Family Education. PATIENT NEEDS CLOSE MEDICAL SUPERVISION BY A REHABILITATION PHYSICIAN FOR: Coordination of Treatment Team Medical and Co-Morbidity Management Pain Management Bowel and Bladder Management DVT Management Diabetes Management PATIENT REQUIRES 24X7 REHAB NURSING FOR MEDICAL AND FUNCTIONAL MGT. OF THE FOLLOWING DEFICITS: Disease Management Medication Management Patient/Family Education Providing Safe Environment Skin Integrity Bowel and Bladder Management Pain Management Respiratory/Airway Management PATIENT REQUIRES INTENSIVE, COORDINATED INTERDISCIPLINARY APPROACH TO REHAB: Arranging Home Equipment/Services Discharge Planning Family Intervention/Training Debate Director/Case Management PATIENT REHAB POTENTIAL: Chris ALCARAZ is able and expected to receive 3 hours of individualized therapy daily on at least 5 of vernell ry 7 days Chris ALCARAZ's prognosis for significant practical improvement within a reasonable period of time appears Good Expected level of measurable improvement will be of a practical value to Chris ALCARAZ's functional capaci ty or adaptations to impairments Has a viable Discharge Plan Medically appropriate; condition is sufficiently stable to participate in intensive rehab program DISCHARGE PLAN: - Estimated Length of Stay (days) 13. - Consensus on plan Discharge plan has been discussed with primary caregiver. Patient/Family is in agreement with the rodrigo n. Primary caregiver is in agreement with the plan. - Patient/Family Goals Return home independently. - Planned Living Setting Upon Discharge Home, to live with Family/Relatives. Transitional Living. RECOMMENDED CARE LEVEL: IRF RECOMMENDATION DETAILS: Recommended Admission to Comprehensive Rehabilitation Program to Increase Functional [place] SCREENER'S COMPLETENESS CONFIRMATION: - Screening Confirmation The patient data collection on this preadmission screening form is finished PHYSICIANS REVIEW AND ADMISSION DETERMINATION Admit - Based on my review of the Pre-Admission Screening results, in my medical judgment and experie nce, I concur with the findings and recommend admission to [facility], as this patient requires an IRF level of care. SIGNATURE PANEL: [place] Man - [electronically] signed by Julianne York on 08/01/2021 at 17:53 (SENIOR SQL SERVER DBA) [place] Man - [electronically] signed by Emiliano Mancini PT on 08/01/2021 at 18:34 (SENIOR SQL SERVER DBA) Physician Reviewer - [electronically] signed by Dr. Justin Monsalve M.D. on 08/01/2021 at 18:58 (SENIOR SQL SERVER DBA )
--- OUTSIDE RECORDS SUMMARY | 2021-08-01 20:56 | XMS REPORT | Continuity of Care Document ---
:1935 Author Organization [facility] t Address [address] [place] [address] Care Team Providers Name Role Phone Vianey [...] Unavailable MD MARY DOAN Admitting Clinician Unavailable Sangita Admitting Clinician Unavailable FRANKI Admitting Clinician Unavailable ROBERT Admitting Clinician Unavailable MD BAIRON JONES Admitting Clinician Unavailable BRITTANY Admitting Clinician Unavailable KELVIN Admitting Clinician Unavailable Payers Payer Name Policy Type Policy Number Effective Date Expiration Date Gladys luciano MEDICARE PART A AND [id number] 2016 B 00:00:00 [facility] [id number] 2017 MEDICARE SUPPLEMENT 00:00:00 MEDICARE PART A \T\ [id number] 2001 B 00:00:00 Problems Condition Condition Condition Status Onset Resolution Last Treating Co mments Source Name Details Category Date Date Treatment Clinician Date No known No known Disease Unive rs active active ity of problems problems [facility] Allergies, Adverse Reactions, Alerts Allergy Allergy Status Severity Reaction(s) Onset Inactive Treating Comm ents Source Name Type Date Date Clinician NO KNOWN Drug Active Univers ALLERGIE Class ity of S [facility] Social History Social Habit Start Date Stop Date Quantity Comments Source Exposure to Not sure [facility]-CoV-2 [facility] (event) Branch Alcohol intake 2021-06-21 2021-06-21 Current [facility] 00:00:00 00:00:00 non-drinker of [facility] alcohol Branch (finding) Tobacco use and 2017-04-08 2017-04-08 Never used Universit y of exposure 00:00:00 00:00:00 [facility] Sex Assigned At [birth year] Universit y of 00:00:00 00:00:00 [facility] Smoking Status Start Date Stop Date Source Never smoker [facility] Medications Ordered Filled Start Stop Current Ordering Indication Dosage Frequency Signature Comments Components Source Medication Medication Date Date Medication? Clinician (SIG) Name Name torsemide Yes 20mg QD Take 20 mg UT (Demadex) 6-28 by mouth 1 Heal th 20 MG 16:47: (one) time tablet 50 each day. tamsulosin Yes QD Take by UT (Flomax) 6-28 mouth 1 Health 0.4 MG 24 16:47: (one) time hr capsule 50 each day. dicyclomine Yes 10mg Q.25D Take 10 mg UT [...] capsule 50 (two) times a day. ramelteon 202-0 Yes 8mg Take 8 mg UT (Rozerem) [...] capsule 50 (four) times a day. febuxostat 2021-0 Yes Take by UT (Uloric) 40 6-28 mouth. Health MG tablet 16:47: 50 pantoprazol 2021-0 Yes 40mg Take 40 mg UT e 6-28 by mouth 1 Health (ProtoNix) 16:47: (one) time 40 MG EC 50 each day tablet before breakfast. Do not crush, chew, or split. levothyroxi 202-0 Yes Take by UT ne 6-28 mouth 1 Health (Tirosint) 16:47: (one) time 200 MCG 50 each day capsule before breakfast. gabapentin 2021-0 Yes 300mg Q.5D Take 300 UT (Neurontin) [...] MG 16:47: every tablet 50 night. torsemide 202-0 Yes 20mg QD Take 20 mg UT [...] capsule 50 (four) times a day. febuxostat 2021-0 Yes Take by UT (Uloric) 40 6-28 [...] tablet 00 (two) times a day. carvedilol 2021-0 Yes 6.25mg Q.5D Take 6.25 UT (Coreg) 5-25 mg by Health 6.25 MG 00:00: mouth 2 tablet 00 (two) times a day. clopidogrel 1-0 Yes 75mg QD Take 75 mg UT (Plavix) 75 5-11 by mouth 1 He alth MG tablet 00:00: (one) time 00 each day. clopidogrel 2021-0 Yes 75mg QD Take 75 mg UT [...] (one) time 00 each day. Eliquis 2.5 2021-0 Yes 2.5mg Q.5D [...] 2 00 (two) times a day. amiodarone 1-0 Yes 200mg QD Take 200 UT (Pacerone) [...] DAILY ity of mg tablet 10:04: NEEDED [place] [address] Medical Branch Dexlansopra 2016-07 Yes Take by Un josh zole 0-03 mouth. ity of (DEXILANT) 10:04: [place] 60 mg 57 Medical capsule Branch tadalafil 2016-07 Yes 1 TABLET Univ ers (CIALIS) 20 0-03 DAILY ity of mg tablet 10:04: NEEDED [address] Branch Dexlansopra 2016-07 Yes Take by Un josh zole 0-03 mouth. ity of (DEXILANT) 10:04: [place] 60 mg 57 Medical capsule Branch amiodarone 2016-07 Yes 200mg Take 200 Un josh 200 mg 0-03 mg by ity of tablet 10:04: mouth. [address] Branch aspirin 325 2016-07 Yes 325mg Take 325 U nivers mg tablet 0-03 mg by ity of 10:04: mouth. [place] [address] Medical Branch Azelastine 2016-07 Yes Use in Univ ers (ASTEPRO) 0-03 each ity of 0.15 % 10:04: nostril. [place] (205.5 mcg) Medical nasal spray Branch amiodarone 2016-07 Yes 200mg Take 200 Un josh 200 mg 0-03 mg by ity of tablet 10:04: mouth. [place] [address] Medical Branch aspirin 325 2016-07 Yes 325mg Take 325 U nivers mg tablet 0-03 mg by ity of 10:04: mouth. [place] [address] Medical Branch Azelastine 2016-07 Yes Use in Univ ers (ASTEPRO) 0-03 each ity of 0.15 % 10:04: nostril. [place] (205.5 mcg) Medical nasal spray Branch rosuvastati 2016-07 Yes 1 TABLET Un josh n (CRESTOR) 0-03 DAILY ity of 10 mg 09:38: [address] doxazosin 4 2016-07 Yes 2mg Take 2 mg U nivers mg tablet 0-03 by mouth. ity o f 09:38: [address] fosinopril 2016-07 Yes 20mg Take 20 mg U nivers 20 mg 0-03 by mouth. ity of tablet 09:38: [address] rosuvastati 2016-07 Yes 1 TABLET Un josh n (CRESTOR) 0-03 DAILY ity of 10 mg 09:38: [address] doxazosin 4 2016-07 Yes 2mg Take 2 mg U nivers mg tablet 0-03 by mouth. ity o f 09:38: [address] fosinopril 2016-07 Yes 20mg Take 20 mg U nivers 20 mg 0-03 by mouth. ity of tablet 09:38: [address] cephALEXin Yes TAKE ONE Uni vers 500 mg 9-17 (1) ity of capsule 00:00: [place] MOUTH Medical EVERY SIX Branch HOURS FOR 10 DAYS. cephALEXin Yes TAKE ONE Uni vers 500 mg 9-17 (1) ity of capsule 00:00: [place] BY MOUTH Medical EVERY SIX Branch HOURS FOR 10 DAYS. CONTOUR Yes Univers NEXT STRIPS 8-08 ity of strip 00:00: [address] CONTOUR 2016- Yes Univers NEXT STRIPS 8-08 ity of strip 00:00: [address] allopurinol Yes Univer s 100 mg 7-27 ity of tablet 00:00: [address] allopurinol Yes Univer s 100 mg 7-27 ity of tablet 00:00: [address] calcitriol Yes TAKE ONE Uni vers [...] blood 2021-06-21 14:58:00 103 mm[Hg] Univer sity [facility] Diastolic blood 2021-06-21 14:58:00 50 mm[Hg] Unive rsity [facility] Body height 2021-06-21 14:58:00 180.3 cm [facility] Body weight 2021-06-21 14:58:00 95.255 kg [facility] BMI 2021-06-21 14:58:00 29.29 kg/m2 [facility] Systolic blood 2021-01-01 16:47:00 116 mm[Hg] [...] Type Clinicians Facility Department ID 2020-11-13 Outpatient LACEY LEIVAH [facility] [id number] [place] 15:45:00 VIRAJ Ureña 2019-11-18 Outpatient ABBIE, [facility] [id number] [facility] 08:31:52 VIRAJ 2021-07-30 2021-07-30 Outpatient JOSE ARMANDO, [facility] [id number] [place] 00:00:00 00:00:00 RICHARD [address] 2021-06-27 2021-07-04 Outpatient INGRID, [facility] [id number] [place] 00:00:00 00:00:00 ALBERT [address] 2021-06-21 2021-06-21 Outpatient R [facility] [id number] [facility] 11:15:00 13:02:13 LORRI prabhakar [facility] 2021-06-21 2021-06-21 [facility] [id number] [facility] 11:15:00 13:02:13 Visit [facility] [id number] it y [facility] [id number] Anurag as SHALONDA?BLEA [id number] [address] OFFICE [facility] 2021-06-05 2021-06-05 Outpatient FRANKIEMELY [facility] [id number] [place] 00:00:00 00:00:[address] 2021-06-05 2021-06-05 Outpatient EMELY DOAN [facility] [id number] [place] 00:00:00 00:00:[address] 2021-05-03 2021-05-03 Outpatient JOSE ARMANDO, [facility] [id number] [place] 00:00:00 00:00:00 RICHARD [address] 2021-03-28 2021-03-28 Outpatient JOSE ARMANDO [facility] [id number] [place] 00:00:00 00:00:00 RICHARD [address] 2021-03-02 2021-03-02 Outpatient EMELY DOAN [facility] [id number] [place] 00:00:00 00:00:[address] 2021-01-12 2021-01-12 Outpatient MAIRA CHEN [facility] [id number] [place] 00:00:00 00:00:[address] 2021-01-03 2021-01-03 Outpatient RADHA, [facility] [id number] [place] 00:00:00 00:00:00 ALEJANDRO [address] 2021-01-03 2021-01-03 Outpatient RADHA, [facility] [id number] [place] 00:00:00 00:00:00 ALEJANDRO [address] 2021-01-01 2021-01-01 Office TRINH Leiva 6400 [id number] 11:18:17 12:10:[address] [id number] 2021-01-01 2021-01-01 Office TRINH Leiva 6400 [id number] [place] 11:18:17 12:10:[address] [id number] Health [id number] 1 2020-12-27 2020-12-27 Telephone TRINH Leiva [facility] [id number] [place] 00:00:00 00:00:00 Viraj SUGAR [id number] Health [facility] [id number] [id number] AND 1 WOMENS 2020-11-10 2020-11-10 Outpatient EMELY DOAN [facility] [id number] [place] 00:00:00 00:00:[address] 2020-11-01 2020-11-01 Outpatient JOSE ARMANDO, [facility] [id number] [place] 00:00:00 00:00:00 RICHARD [address] 2020-10-23 2020-10-27 Inpatient AIXA [facility] [id number] [place] 00:00:00 00:00:00 PAULY [address] 2020-09-22 2020-09-22 Outpatient EMELY DOAN [facility] [id number] [place] 00:00:00 00:00:[address] 2020-08-29 2020-09-11 Inpatient AIXA [facility] [id number] [place] 00:00:00 00:00:00 PAULY [address] 2020-08-25 2020-08-31 Outpatient EMELY DOAN [facility] [id number] [place] 00:00:00 00:00:[address] 2020-08-15 2020-08-19 Inpatient XU, [facility] [id number] [place] 00:00:00 00:00:00 MARIAH [address] 2020-07-28 2020-07-28 Outpatient EMELY DOAN [facility] [id number] [place] 00:00:00 00:00:[address] 2020-07-28 2020-07-28 Outpatient FRANKI EMELY [facility] [id number] [place] 00:00:00 00:00:[address] 2020-07-14 2020-07-14 Outpatient MAIRA CHEN [facility] [id number] [place] 00:00:00 00:00:[address] 2020-07-13 2020-07-13 Outpatient JOSE ARMANDO, [facility] [id number] [place] 00:00:00 00:00:00 RICHARD [address] 2020-07-13 2020-07-13 Outpatient JASOWMYA, [facility] [id number] [place] 00:00:00 00:00:00 SIRAYA [address] 2020-07-12 2020-07-12 Outpatient [facility] [id number] [place] 00:00:00 00:00:[address] 2020-05-26 2020-05-26 Outpatient FRANKI EMELY [facility] [id number] [place] 00:00:00 00:00:[address] 2020-05-23 2020-05-23 Outpatient DELAFLOR-SA [facility] [id number] [place] 00:00:00 00:00:00 NTAANA, [address] 2020-05-08 2020-05-18 Inpatient KEENAN, [facility] [id number] [place] 00:00:00 00:00:00 ANETTE [address] 2020-05-05 2020-05-05 Outpatient FRANKI EMELY [facility] [id number] [place] 00:00:00 00:00:[address] 2020-05-03 2020-05-03 Outpatient JOSE ARMANDO [facility] [id number] [place] 00:00:00 00:00:00 RICHARD [address] 2020-04-26 2020-04-26 Outpatient ALIDA, [facility] [id number] [place] 00:00:00 00:00:00 ASHRITH [address] 2020-04-24 2020-04-24 Outpatient EMELY DOAN [facility] [id number] [place] 00:00:00 00:00:[address] 2020-04-14 2020-04-14 Outpatient EMELY DOAN [facility] [id number] [place] 00:00:00 00:00:[address] 2020-04-03 2020-04-03 Outpatient Daniel_T VFP VFP [id number] [facility] 01:57:00 01:57:00 [id number] Family Practic e 2020-03-17 2020-03-17 Outpatient EMELY DOAN [facility] [id number] [place] 00:00:00 00:00:[address] 2020-03-09 2020-03-09 Outpatient DELAFLOR-SA [facility] [id number] [place] 00:00:00 00:00:00 NTAANA, [address] 2020-02-24 2020-03-02 Inpatient EMELY DOAN [facility] [id number] [place] 00:00:00 00:00:[address] 2020-02-23 2020-02-23 Outpatient EMELY DOAN [facility] [id number] [place] 00:00:00 00:00:[address] 2020-02-11 2020-02-11 Outpatient EMELY DOAN [facility] [id number] [place] 00:00:00 00:00:[address] 2020-02-04 2020-02-04 Outpatient JOSE ARMANDO [facility] [id number] [place] 00:00:00 00:00:00 RICHARD [address] 2020-01-20 2020-01-25 Inpatient SAVANA [facility] [id number] [place] 00:00:00 00:00:00 AMITKUMAR [address] 2020-01-12 2020-01-12 Outpatient MAIRA CHEN [facility] [id number] [place] 00:00:00 00:00:[address] 2019-12-31 2019-12-31 Outpatient EMELY DOAN [facility] [id number] [place] 00:00:00 00:00:[address] 2019-12-31 2019-12-31 Outpatient EMELY DOAN [facility] [id number] [place] 00:00:00 00:00:[address] 2019-12-27 2019-12-27 Outpatient TRISHA [facility] [id number] [place] 00:00:00 00:00:00 TRISHA [address] 2019-12-17 2019-12-18 Outpatient BRITTANY, [facility] [id number] [place] 00:00:00 00:00:00 MERCY [address] 2019-11-18 2019-11-18 Outpatient KELVIN, [facility] [id number] [place] 00:00:00 00:00:00 MAHWASH [address] 2019-11-04 2019-11-04 Outpatient JOSE ARMANDO, [facility] [id number] [place] 00:00:00 00:00:00 RICHARD [address] 2019-10-19 2019-10-19 Outpatient JOSE ARMANDO, [facility] [id number] [place] 00:00:00 00:00:00 RICHARD [address] 2019-09-17 2019-09-17 Outpatient EMELY DOAN [facility] [id number] [place] 00:00:00 00:00:[address] 2019-09-02 2019-09-09 Inpatient AIXA, [facility] [id number] [place] 00:00:00 00:00:00 PAULY [address] [...] c ondition of interest (test code = 82719-8) SARS-CoV-2 (COVID-19) RNA [Presence] in Respiratory specimen by ANDREW with probe [id number] 00:24:51 Test Item Value Reference Range Interpretation Comments SARS-CoV-2 (COVID-19) RNA Not detected Not-Detected [Presence] in Respiratory specimen by ANDREW with probe detection (test code = 13130-9) SARS-CoV-2 (COVID-19) RNA [Presence] in Respiratory specimen by ANDREW with probe [id number] 23:06:04 Test Item Value Reference Range Interpretation Comments SARS-CoV-2 (COVID-19) RNA Not detected Not-Detected [Presence] in Respiratory specimen by ANDREW with probe detection (test code = 61375-6) SARS-CoV-2 (COVID-19) RNA [Presence] in Respiratory specimen by ANDREW with probe [id number] 19:57:13 Test Item Value Reference Range Interpretation Comments SARS-CoV-2 (COVID-19) RNA Not detected Not-Detected [Presence] in Respiratory specimen by ANDRWE with probe detection (test code = 97754-1) SARS-CoV-2 (COVID-19) RNA [Presence] in Respiratory specimen by ANDREW with probe [id number] 23:40:00 Test Item Value Reference Range Interpretation Comments SARS-CoV-2 (COVID-19) RNA Not detected Not-Detected [Presence] in Respiratory specimen by ANDREW with probe detection (test code = 20920-8) SARS-CoV-2 (COVID-19) RNA [Presence] in Respiratory specimen by ANDREW with probe [id number] 22:07:46 Test Item Value Reference Range Interpretation Comments SARS-CoV-2 (COVID-19) RNA Not detected Not-Detected [Presence] in Respiratory specimen by ANDREW with probe detection (test code = 62756-8) SARS-CoV-2 (COVID-19) RNA [Presence] in Respiratory specimen by ANDREW with probe [id number] 21:47:42 Test Item Value Reference Range Interpretation Comments SARS-CoV-2 (COVID-19) RNA Not detected Not-Detected [Presence] in Respiratory specimen by ANDREW with probe detection (test code = 65915-0) SARS-CoV-2 (COVID-19) RNA [Presence] in Respiratory specimen by ANDREW with probe [id number] 14:31:58 Test Item Value Reference Range Interpretation Comments SARS-CoV-2 (COVID-19) RNA Not detected Not-Detected [Presence] in Respiratory specimen by ANDREW with probe detection (test code = 30635-2)
[2021-08-01] MEDS ORDERED: GLUCAGON 1 MG/VIAL IM PRN (21:26)
[2021-08-01] MEDS ORDERED: D50W 25 GM/50 ML SYRINGE IV PRN (21:26)
[2021-08-01] MEDS ORDERED: SENOSIDES 8.6 MG TAB PO PRN (21:32)
[2021-08-01] MEDS: DONEPEZIL HCL 5 MG TAB PO SCH (21:54)
[2021-08-01] MEDS: ATORVASTATIN 10 MG TAB PO SCH (21:54)
[2021-08-01] MEDS: GABAPENTIN 300 MG CAP PO SCH (21:54)
[2021-08-02] MEDS: METOPROLOL TAR 25 MG TAB PO SCH (05:04)
[2021-08-02 05:06] LABS: Absolute Lymphocytes (CBC) 1.5 K/uL (0.7-4.9); Hematocrit 32.7 % (39.6-49.0); Lymphocytes % 13.7 % (15.3-44.8); MPV 7.9 fL (7.6-11.3); RBC Red Blood Cell Count 3.72 M/uL (4.33-5.43)
[2021-08-02 05:22] LABS: Albumin 1.8 g/dL (3.4-5.0); Magnesium 2.7 mg/dL (1.8-2.4); Potassium 3.8 mmol/L (3.5-5.1); Prealbumin 10.6 mg/dL (20-40)
[2021-08-02] MEDS: PANTOPRAZOLE 40MG TABLET PO SCH (06:57)
[2021-08-02] MEDS: LEVOTHYROXINE SOD 0.125 MG TAB PO SCH (06:58)
[2021-08-02] MEDS: INSULIN -REGULAR HUMAN 50 UNIT/0.5 ML ML SQ SCH ×4 (07:13→20:07)
[2021-08-02] MEDS: TRESIBA 40 UNIT SQ SCH (08:00)
[2021-08-02] MEDS: JARDIANCE 10 MG PO SCH (08:00)
[2021-08-02] MEDS: GABAPENTIN 300 MG CAP PO SCH ×2 (08:35→20:08)
[2021-08-02] MEDS: TAMSULOSIN 0.4 MG SR CAP PO SCH (08:35)
[2021-08-02] MEDS: FINASTERIDE 5 MG TAB PO SCH (08:35)
[2021-08-02] MEDS: SPIRONOLACTONE 25 MG TABLET PO SCH (08:35)
[2021-08-02] MEDS: APIXABAN 5 MG TABLET PO SCH ×2 (08:35→20:08)
[2021-08-02] MEDS: AMIODARONE HCL 200 MG TAB PO SCH (08:36)
[2021-08-02] MEDS: icosapent ethyL 1 GM CAP PO SCH ×2 (08:36→20:07)
[2021-08-02] MEDS: allopurinoL 100 MG TAB PO SCH ×2 (08:36→20:08)
[2021-08-02] MEDS: TRAMADOL HCL 50 MG TAB PO PRN ×3 (08:36→20:15)
[2021-08-02] MEDS: ONDANSETRON 4 MG (ODT) TAB PO PRN (12:51)
[2021-08-02] MEDS: MAGNES/ALUMIN/SIMET 30ML UCUP PO PRN (12:55)
[2021-08-02] MEDS: LIDOCAINE 4% PATCH TOP SCH (13:08)
--- NOTE | 2021-08-02 14:45 | RAD REPORT ---
EXAM DESCRIPTION: RAD - Wrist Right 2 View - 08/02/2021 2:28 pm CLINICAL HISTORY: Right wrist pain FINDINGS: No fracture or dislocation is seen. If the patient continues to have symptoms to suggest a n occult fracture then a followup plain film series in 7 days would be recommended.
--- NOTE | 2021-08-02 14:46 | RAD REPORT ---
EXAM DESCRIPTION: RAD - Elbow Right 2 View - 08/02/2021 2:28 pm CLINICAL HISTORY: Elbow pain FINDINGS: Lateral view is somewhat suboptimal as the elbow is not flexed to 90 degrees. No fracture or dislocation seen
--- NOTE | 2021-08-02 14:48 | RAD REPORT ---
EXAM DESCRIPTION: RAD - Shoulder Right 2 View - 08/02/2021 2:28 pm CLINICAL HISTORY: Right shoulder pain FINDINGS: No fracture or dislocation is seen. The humeral head is high riding which may indicate chronic rotator cuff tear Mild osteoarthritis AC and glenohumeral joints
--- NOTE | 2021-08-02 18:59 | R.HP ---
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 board/care, assisted living, care home, transitional living) PRE-HOSPITAL LIVING WITH Family/Relatives ENCOUNTER PHYSICIAN: Dr. Justin Monsalve M.D. REFERRING DOCTOR: MARTHA RAMACHANDRAN DATE OF ADMISSION: 08/01/2021 20:51 (CASING PULLER) REFERRING FACILITY [facility] HOME TYPE AND DETAILS: Type of home: single family house # of levels in the residence: 1 # of steps within the residence: 0 # of steps to enter the residence: 0 ONSET DATE: 07/31/2021 PRIMARY DIAGNOSIS-RELATED SURGERIES: N/A HISTORY OF PRESENT ILLNESS (HPI): Pt. is a 86 yo Right-handed male. On 07/31/2021 he was admitted to [facility] with diagnosis HYPONATREMIA, UTI, L1 TRANSVE RSE PROCESS FX, T11-T12 RIB FXS. His impairment category is Medically Complex Conditions 17 - Other Medically Complex Conditions (17. 9). Pre-morbidly, Pt. was independent/mod-I in Locomotion, Safety Awareness, Social Cognition, and Balanc e; and he had good Transfers Control, Sphincter Control, Communication, Self-Care, and Endurance. Currently, he has deficits of Locomotion, Safety Awareness, Balance, Social Cognition, Transfers Cont rol, Sphincter Control, Communication, Endurance, and Self-Care. Pt. is now referred to [facility] for acute in-patient rehabilitation in order to maximize patient's functional independence in activities of daily living, strength, ROM, and mobi lity. Patient has realistic goal of being discharged at assistance level 7-Ind to reside at Home with Fami ly/Relatives. MEDICATION ALLERGIES: No Known Drug Allergies (NKDA) ENVIRONMENTAL ALLERGIES: - Substance Allergies None Known - Other Allergies None Known PAST MEDICAL HISTORY: HYPERLIPIDEMIA AFIB Diabetes Mellitus Type 2 CHRONIC HEART FAILURE hypothyroidism HTN AORTIC STENOSIS GERD THYROIDECTOMY GOUT CORONARY ARTERY DISEASE ADA DIET PAST SURGICAL HISTORY: 2 HEART STENTS PACEMAKER Aortic Valve Replacement CHOLECYSTECTOMY CAD CABG X4 VESSELS URINE RETENTION SOCIAL HISTORY: - Home Living Family/Relatives REVIEW OF SYSTEMS: - Gen No Chills Fatigue No Fever - Eyes No Double Vision No itchiness - ENMT No Difficulty Swallowing - CVS Chest Discomfort No Chest Pain No Fatigue No Weight Gain - Resp No Cough No Shortness of Breath - GI Continent No Abdominal Pain No Constipation No Diarrhea - Continent No Kidney Pain No Painful Urination No Urinary Urgency - MSK Joint Pain in the right shoulder Muscle Cramps Stiffness - Skin No Itching No Rash No Suspicious Lesions - Neuro No Coordination Difficulty No Difficulty with Concentration No Memory Loss No Seizures Weakness - Psych No Anxiety No Depression No HIV Exposure No Persistent Infections No Seasonal Allergies - Endo No Cold/Heat Intolerance No Excessive Hunger No Excessive Thirst No Excessive Urination PHYSICAL EXAM - Gen Alert and awake Lying in bed No apparent distress Oriented to: person, time, and place - Skin No breakdown No abnormalities - Eyes No abnormalities - ENMT No abnormalities - CVS RRR - Chest No abnormalities - Resp Course lungs bilaterally - Abd Soft - GI Non distended Deferred - No abnormalities - Ext Right shoulder pain and decreased range of motion. - MSK 4+/5 weakness in right upper extremity. - Neuro 4/5 strength right upper extremity. - Psych No abnormalities VITAL SIGNS Temperature: 98.0 F SBP/DBP: 120/57 Pulse: 70 Resp: 16 NURSING: - Shower allowing shower ACTIVITIES OOB only with supervision QI SCORES: - Self-Care A. Eating 03-Partial/moderate assistance B. Oral hygiene 03-Partial/moderate assistance C. Toileting hygiene 02-Substantial/maximal assistance E. Shower/bathe self 02-Substantial/maximal assistance F. Upper body dressing 02-Substantial/maximal assistance G. Lower body dressing 02-Substantial/maximal assistance H. Putting on/taking off footwear 88-Not attempted due to medical condition or safety concerns - Mobility A. Roll left and right 03-Partial/moderate assistance B. Sit to lying 03-Partial/moderate assistance C. Lying to sitting on side of bed 03-Partial/moderate assistance D. Sit to stand 02-Substantial/maximal assistance E. Chair/ayr-vw-xccqw transfer 02-Substantial/maximal assistance F. Toilet transfer 02-Substantial/maximal assistance G. Car transfer 88-Not attempted due to medical condition or safety concerns I. Walk 10 feet 88-Not attempted due to medical condition or safety concerns J. Walk 50 feet with two turns 88-Not attempted due to medical condition or safety concerns K. Walk 150 feet 88-Not attempted due to medical condition or safety concerns L. Walking 10 feet on uneven surfaces 88-Not attempted due to medical condition or safety concerns M. 1 step (curb) 88-Not attempted due to medical condition or safety concerns N. 4 steps 88-Not attempted due to medical condition or safety concerns O. 12 steps 88-Not attempted due to medical condition or safety concerns P. Picking up object 88-Not attempted due to medical condition or safety concerns R. Wheel 50 feet with two turns 88-Not attempted due to medical condition or safety concerns S. Wheel 150 feet 88-Not attempted due to medical condition or safety concerns - Bladder and Bowel Bladder continence Bowel continence - Endurance Fair - Balance Fair - Safety Awareness Fair CURRENT FUNC. DEFICITS: Self-Care, Mobility, Endurance, Balance, and Safety Awareness MEDICATIONS: - Other See attached MAR (Medication Administration Record) ASSESSMENT: Pt. is a 86 yo Right-handed male.On 07/31/2021 he was admitted to [facility] with diagno sis HYPONATREMIA, UTI, L1 TRANSVERSE PROCESS FX, T11-T12 RIB FXS.His impairment category is Medically Complex Conditions 17 - Other Medically Complex Conditions (17.9).Pre-morbidly, Pt. was independent /mod-I in Locomotion, Safety Awareness, Social Cognition, and Balance; and he had good Transfers Cont rol, Sphincter Control, Communication, Self-Care, and Endurance.Currently, he has deficits of Locomot ion, Safety Awareness, Balance, Social Cognition, Transfers Control, Sphincter Control, Communication , Endurance, and Self-Care.Pt. is now referred to [facility] for acute in-cori ent rehabilitation in order to maximize patient's functional independence in activities of daily sp ng, strength, ROM, and mobility.- Rehab Goal Patient has realistic goal of being discharged at assistance level 7-Ind to reside at Home with Fami ly/Relatives. - Physical Therapy Gait dysfunction - to improve, our physical therapists will perform initial evaluation of pt's status upon admission and devise an individualized program for Gait Training, and Wheel Chair mobility Inability to transfer - to improve, our physical therapists will perform initial evaluation of pt's s tatus upon admission and devise an individualized program for Bed mobility Need for home safety evaluation - to improve, our physical therapists will perform initial evaluation of pt's status upon admission and devise an individualized program for Home Evaluation Need in caregiver upon discharge - to improve, our physical therapists will perform initial evaluatio n of pt's status upon admission and devise an individualized program for Caregiver Training New precaution - to improve, our physical therapists will perform initial evaluation of pt's status u nereyda admission and devise an individualized program for Patient precaution education Poor balance - to improve, our physical therapists will perform initial evaluation of pt's status upo n admission and devise an individualized program for Balance Training Poor endurance - to improve, our physical therapists will perform initial evaluation of pt's status u nereyda admission and devise an individualized program for Endurance Training Weakness - to improve, our physical therapists will perform initial evaluation of pt's status upon ad mission and devise an individualized program for Aquatic Therapy, Neuromuscular Reeducation, and Stre ngthening Achieving independence - to improve, our physical therapists will perform initial evaluation of pt's status upon admission and devise an individualized program for Community Reintegration Activities - Occupational Therapy ADL deficits - to improve, our occupation therapists will perform initial evaluation of pt's status u nereyda admission and devise an individualized program for Bathing, Bed mobility, Community Reintegration , Cooking, Dressing, Eating, Fine Motor Skills, Grooming, Homemaking, Kitchen Mobility, Laundry, Cori ent Education, Safety Awareness, Splinting - Positioning, Transfers(Toilet, Tub, Shower), and Wheel C hair Management Cognitive deficits - to improve, our occupation therapists will perform initial evaluation of pt's st atus upon admission and devise an individualized program for Cognition - orientation Need for career services representative - to improve, our occupation therapists will perform initial evaluation of pt's s tatus upon admission and devise an individualized program for Caregiver Training Weakness - to improve, our occupation therapists will perform initial evaluation of pt's status upon admission and devise an individualized program for Aquatic Therapy, Balance, Endurance, UE ROM, and U E strengthening MEDICAL PLAN: - Diet Type Start Regular - Diet - Liquid Texture Start Regular - Tube Feed Start N/A - Other See attached MAR (Medication Administration Record) - Diet - Solid Texture Regular - Shower shower DISCHARGE PLAN: - Estimated Length of Stay (days) 13. - Consensus on plan Discharge plan has been discussed with primary caregiver. Patient/Family is in agreement with the rodrigo n. Primary caregiver is in agreement with the plan. - Patient/Family Goals Return home independently. - Planned Living Setting Upon Discharge Home, to live with Family/Relatives. Transitional Living. 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
--- NOTE | 2021-08-02 19:01 | PAPE ---
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 Justin Monsalve M.D. ADMISSION DIAGNOSIS: HYPONATREMIA, UTI, L1 TRANSVERSE PROCESS FX, T11-T12 RIB FXS ONSET DATE 07/31/2021 POST-ADMISSION FUNCTIONAL/MEDICAL STATUS: - Bladder Same accident frequency: 7-Ind - No accidents in the past 7 days - Bowel Same accident frequency: 7-Ind - No accidents in the past 7 days - Walking Same score based on distance walked: 0(N/A) - Wheelchair Same score based on distance traveled: 0(N/A) STATUS CHANGE EVALUATION: No change in Functional or Medical Status is identified compared with Pre-Admission screening. PATIENT NEEDS CLOSE MEDICAL SUPERVISION BY A REHABILITATION PHYSICIAN FOR: Coordination of Treatment Team Medical and Co-Morbidity Management Pain Management Bowel and Bladder Management DVT Management Diabetes Management PATIENT REQUIRES 24X7 REHAB NURSING FOR MEDICAL AND FUNCTIONAL MGT. OF THE FOLLOWING DEFICITS: Disease Management Medication Management Patient/Family Education Providing Safe Environment Skin Integrity Bowel and Bladder Management Pain Management Respiratory/Airway Management PATIENT REQUIRES INTENSIVE, COORDINATED INTERDISCIPLINARY APPROACH TO REHAB: Arranging Home Equipment/Services Discharge Planning Family Intervention/Training Automatic Spooler Operator/Case Management LIST OF IDENTIFIED AND POTENTIAL PROBLEMS: Alteration in leisure activities Bladder, Incontinence Bowel, Incontinence Infection, Actual or Potential Mobility Impaired Pain, Alteration in Comfort Self Care Deficit Skin Integrity, Actual or Potential Urinary Tract Infection (UTI), Actual or Potential RISK FOR COMPLICATIONS - UTI Monitor for frequency, burning, discomfort, or incontinence. Physician medical management as warrante d. - CVA pt has A-Fib and requires medical monitoring and medication management to reduce risk for CVA. - Skin Breakdown Nursing will assess skin daily using assessment tool and will place on Skin Breakdown Precautions as Indicated per protocol. - Pain Clinical staff will assess patient's pain level every shift per protocol to monitor for pain manageme nt effectiveness. Medications will be given and the pain level reassessed. Clinical Staff may employ other methods such as: massage, distraction, decrease stimulus, etc. as needed. Educate patient on pa in management strategies. - DVT PTT and INR will be monitored to effectively mitigate risk for development of DVT or PE while here. M edications will be administered as per MD. - Falls Educated pt on fall prevention strategies to reduce/eliminate fall risk. Patient will be evaluated fo r Fall Precautions and will be placed on Fall Precautions as indicated per protocol. - Diabetic Complications Regular monitoring and management of blood glucose levels. pt will receive a specialized diet to help manage blood glucose levels. - Pneumonia pt will be instructed on use of and be encouraged to use incentive spirometry. Interval Chest X-Rays will be obtained as necessary. pt will be trained on deep breathing exercises due to rib fractures. PATIENT COULD BE AT RISK FOR COMPLICATIONS FROM ADVERSE MEDICAL CONDITIONS DUE TO HIS/HER COMORBIDITI ES AND THE RIGORS OF THE INTENSIVE REHABILLITATION PROGRAM. METHODS OR INTERVENTIONS TO AVOID COMPLIC ATIONS INCLUDE: - Deep Vein Thrombosis (DVT) Prophylaxis therapy for prevention . Sequential Compression Device (SCD). LINDEN Faust. - Infection Clinical staff to assess and manage the signs and symptoms of infection including fever, redness, war mth, etc. - Urinary Tract Infection - Falls Patient will be evaluated for Fall Precautions and will be placed on Fall Precautions as indicated pe r protocol. - Skin Breakdown Nursing will assess skin daily using assessment tool and will place on Skin Breakdown Precautions as indicated per protocol. - Pain Clinical staff may employ non-medication methods such as massage, distraction, decrease stimulus, etc . as needed. Clinical staff will assess patient's pain level every shift per protocol to assess and e nsure pain management effectiveness. Medications will be given and the pain level re-assessed. PRELIMINARY PLAN OF CARE: - Physical Therapy Patient needs Physical Therapy for a daily minimum of 1.5 hours at least 5 out of 7 days, to improve: Mobility, Strengthening, Transfers, Stretching, ROM, Endurance, Ability to manage stairs, Gait, and Balance. - Speech Therapy Patient needs Speech Therapy for a daily minimum of 0.5 hours at least 5 out of 7 days, to improve: S wallowing, Cognition, Language Skills, and Compensatory Strategies. - Rehabilitation Nursing Patient requires 24x7 Rehabilitation Nursing for: Pain Issues, Identifying and preventing risk factor s, Monitoring and reporting current medical conditions, Assisting with ambulation and transfer, Sai ting with all ADL-s, Teaching patients about disease process and medications, Family teaching, Provid ing safe environment, Bowel and Bladder Issues, Skin Integrity, and Medication Management. Patient needs Automatic Spooler Operator and/or Case Management for: Discharge Planning, Arranging Home Equipmen t or Services, and Family Interventions. - Dietary and Nutrition Services Patient needs Dietary and Nutrition Services for: Adequate Nutrition, Nutritional Supplements, and Nu tritional Education. - Occupational Therapy Patient needs Occupational Therapy for a daily minimum of 1.5 hours at least 5 out of 7 days, to impr ove Activities of Daily Living, including: Eating, Grooming, Bathing, Dressing, Toileting, Toilet Tra nsfers, Community Reintegration, Higher functional activities, Adaptive Equipment, Splinting, Househo ld Tasks, and Other activities as determined. QI SCORES: - Self-Care A. Eating 03-Partial/moderate assistance B. Oral hygiene 03-Partial/moderate assistance C. Toileting hygiene 02-Substantial/maximal assistance E. Shower/bathe self 02-Substantial/maximal assistance F. Upper body dressing 02-Substantial/maximal assistance G. Lower body dressing 02-Substantial/maximal assistance H. Putting on/taking off footwear 88-Not attempted due to medical condition or safety concerns - Mobility A. Roll left and right 03-Partial/moderate assistance B. Sit to lying 03-Partial/moderate assistance C. Lying to sitting on side of bed 03-Partial/moderate assistance D. Sit to stand 02-Substantial/maximal assistance E. Chair/oip-ow-femnj transfer 02-Substantial/maximal assistance F. Toilet transfer 02-Substantial/maximal assistance G. Car transfer 88-Not attempted due to medical condition or safety concerns I. Walk 10 feet 88-Not attempted due to medical condition or safety concerns J. Walk 50 feet with two turns 88-Not attempted due to medical condition or safety concerns K. Walk 150 feet 88-Not attempted due to medical condition or safety concerns L. Walking 10 feet on uneven surfaces 88-Not attempted due to medical condition or safety concerns M. 1 step (curb) 88-Not attempted due to medical condition or safety concerns N. 4 steps 88-Not attempted due to medical condition or safety concerns O. 12 steps 88-Not attempted due to medical condition or safety concerns P. Picking up object 88-Not attempted due to medical condition or safety concerns R. Wheel 50 feet with two turns 88-Not attempted due to medical condition or safety concerns S. Wheel 150 feet 88-Not attempted due to medical condition or safety concerns - Bladder and Bowel Bladder continence Bowel continence - Endurance Fair - Balance Fair - Safety Awareness Fair POTENTIAL FUNCTIONAL GOALS FOR PATIENT TO ACHIEVE BY DISCHARGE: - Safety Precaution Patient will remain free from falls or injury at time of discharge. - Bed Mobility Patient will perform bed mobility at 4-Navid level of assistance. - Transfers Patient will complete transfers from bed to chair at 4-Navid level of assistance. - Mobility Patient will ambulate 150 ft with 4-Navid level of assistance with RW. PATIENT REHAB POTENTIAL Chris ALCARAZ is able and expected to receive 3 hours of individualized therapy daily on at least 5 of vernell ry 7 days Chris ALCARAZ's prognosis for significant practical improvement within a reasonable period of time appears Good Expected level of measurable improvement will be of a practical value to Chris ALCARAZ's functional capaci ty or adaptations to impairments Has a viable Discharge Plan Medically appropriate; condition is sufficiently stable to participate in intensive rehab program DISCHARGE PLAN: - Estimated Length of Stay (days) 13. - Consensus on plan Discharge plan has been discussed with primary caregiver. Patient/Family is in agreement with the rodrigo n. Primary caregiver is in agreement with the plan. - Patient/Family Goals Return home independently. - Planned Living Setting Upon Discharge Home, to live with Family/Relatives. Transitional Living. CONCLUSION ON REHABILITATION NECESSITY: I have evaluated patient's pre-admission functional status and, comparing it to the patient's post-ad mission functional status now, I conclude that the pre-admission assessment was accurate. Patient's c ondition on admission supports the medical necessity of admission to IR[facility]. It is safe to proceed with patient's therapy program. 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
[2021-08-02] MEDS: NYSTATIN PWDR 100000 UNIT/GM TOP SCH (19:10)
[2021-08-02] MEDS: DONEPEZIL HCL 5 MG TAB PO SCH (20:08)
[2021-08-02] MEDS: ATORVASTATIN 10 MG TAB PO SCH (20:08)
[2021-08-02] MEDS: VITAMIN D 1000 UNIT TAB PO SCH (20:09)
[2021-08-03] MEDS: METOPROLOL TAR 25 MG TAB PO SCH (05:02)
[2021-08-03] MEDS: PANTOPRAZOLE 40MG TABLET PO SCH (05:03)
[2021-08-03] MEDS: INSULIN -REGULAR HUMAN 50 UNIT/0.5 ML ML SQ SCH ×4 (07:30→20:25)
[2021-08-03] MEDS: JARDIANCE 10 MG PO SCH (08:00)
[2021-08-03] MEDS: TRESIBA 40 UNIT SQ SCH (08:00)
[2021-08-03] MEDS: LIDOCAINE 4% PATCH TOP SCH (08:02)
[2021-08-03] MEDS: FINASTERIDE 5 MG TAB PO SCH (08:05)
[2021-08-03] MEDS: SPIRONOLACTONE 25 MG TABLET PO SCH (08:06)
[2021-08-03] MEDS: AMIODARONE HCL 200 MG TAB PO SCH (08:07)
[2021-08-03] MEDS: APIXABAN 5 MG TABLET PO SCH ×2 (08:07→19:27)
[2021-08-03] MEDS: icosapent ethyL 1 GM CAP PO SCH ×2 (08:07→19:28)
[2021-08-03] MEDS: LEVOTHYROXINE SOD 0.125 MG TAB PO SCH (08:07)
[2021-08-03] MEDS: allopurinoL 100 MG TAB PO SCH ×2 (08:07→19:28)
[2021-08-03] MEDS: GABAPENTIN 300 MG CAP PO SCH ×2 (08:07→19:28)
[2021-08-03] MEDS: NYSTATIN PWDR 100000 UNIT/GM TOP SCH ×2 (08:08→19:56)
[2021-08-03] MEDS: TRAMADOL HCL 50 MG TAB PO PRN (08:14)
[2021-08-03] MEDS: TAMSULOSIN 0.4 MG SR CAP PO SCH (08:25)
--- NOTE | 2021-08-03 10:08 | P.RH.PN ---
Estimated Length of Stay: 15 Expected Discharge Date: 08/17/21 Discharge Disposition Plan: Home Family Support: Yes [facility] Goal: Mobility, Transfers, Self Care Vital Signs: Last Vital Signs Temp 97.9 F 08/03/21 08:00 Pulse 74 08/03/21 08:06 Resp 18 08/03/21 08:14 BP 108/52 L 08/03/21 08:06 Pulse Ox 94 08/03/21 08:14 Laboratory: Laboratory Last Values WBC 10.80 K/uL (4.3-10.9) 08/02/21 04:47 RBC 3.72 M/uL (4.33-5.43) L 08/02/21 04:47 Hgb 10.4 g/dL (13.6-17.9) L 08/02/21 04:47 Hct 32.7 % (39.6-49.0) L 08/02/21 04:47 MCV 88.1 fL (80-100) 08/02/21 04:47 MCH 28.0 pg (27.0-35.0) 08/02/21 04:47 MCHC 31.8 g/dL (32.0-36.0) L 08/02/21 04:47 RDW 18.6 % (12.1-15.2) H 08/02/21 04:47 Plt Count 247 K/uL (152-406) 08/02/21 04:47 MPV 7.9 fL (7.6-11.3) 08/02/21 04:47 Neutrophils % 76.0 % (41.7-73.7) H 08/02/21 04:47 Lymphocytes % 13.7 % (15.3-44.8) L 08/02/21 04:47 Monocytes % 9.4 % (3.3-12.3) 08/02/21 04:47 Eosinophils % 0.7 % (0-4.4) 08/02/21 04:47 Basophils % 0.2 % (0-1.3) 08/02/21 04:47 Absolute Neutrophils 8.2 K/uL (1.8-8.0) H 08/02/21 04:47 Absolute Lymphocytes 1.5 K/uL (0.7-4.9) 08/02/21 04:47 Absolute Monocytes 1.0 K/uL (0.1-1.3) 08/02/21 04:47 Absolute Eosinophils 0.1 K/uL (0-0.5) 08/02/21 04:47 Absolute Basophils 0.0 K/uL (0-0.5) 08/02/21 04:47 Sodium 134 mmol/L (136-145) L 08/02/21 04:47 Potassium 3.8 mmol/L (3.5-5.1) 08/02/21 04:47 Chloride 99 mmol/L (98-107) 08/02/21 04:47 Carbon Dioxide 28 mmol/L (21-32) 08/02/21 04:47 BUN 53 mg/dL (7-18) H 08/02/21 04:47 Creatinine 2.52 mg/dL (0.55-1.3) H 08/02/21 04:47 Estimated GFR 24 mL/min (=/>90) L 08/02/21 04:47 Glucose 173 mg/dL (74-106) H 08/02/21 04:47 POC Glucose 181 mg/dL (65-120) H 08/03/21 07:01 Calcium 8.0 mg/dL (8.5-10.1) L 08/02/21 04:47 Magnesium 2.7 mg/dL (1.8-2.4) H 08/02/21 04:47 Albumin 1.8 g/dL (3.4-5.0) L 08/02/21 04:47 Prealbumin 10.6 mg/dL (20-40) L 08/02/21 04:47 Weight: 211 lb 4.8 oz Wound Present: No Closed Surgical Incision Present: No Negative Pressure Wound Therapy Present: No Physician Update: He is in moderate pain due to peripheral neuropathy. Increase gabapentin to 600 mg bid. Self-propelled wheelchair 25' to 50' with moderate assistance. Labs reviewed and are stable. Comment: bruising noted to bilateral arm. skin tear to left arm sustained during fall at home Summary: Patient's care plan and prison goals have been reviewed and revised as necessary. Please see the Rehabilitation Signature page for all necessary signatures.
[2021-08-03] MEDS ORDERED: INSULIN GLARGINE 100 UNIT/ML SQ SCH ×2 (11:00→13:00)
[2021-08-03] MEDS ORDERED: GABAPENTIN 300 MG CAP PO ONE (12:18)
[2021-08-03 19:53] LABS: Urine Appearance CLOUDY (Clear); Urine Bilirubin NEGATIVE (Negative); Urine Blood NEGATIVE (Negative); Urine Color YELLOW (Yellow); Urine Glucose 1+ (Negative); Urine Protein NEGATIVE (Negative); Urine Specific Gravity 1.015 (1.005-1.030); Urine Urobilinogen 0.2 mg/dL (0.2-1.0); Urine pH 5.5 (5.0-7.0)
[2021-08-03] MEDS: VITAMIN D 1000 UNIT TAB PO SCH (20:25)
[2021-08-03] MEDS: ATORVASTATIN 10 MG TAB PO SCH (20:25)
[2021-08-03] MEDS: DONEPEZIL HCL 5 MG TAB PO SCH (20:25)
[2021-08-03 20:31] LABS: Urine Amorphous Sediment 2+ /HPF (NONE SEEN); Urine Bacteria >50 /HPF (NONE SEEN); Urine Coarse Granular Casts 0-5 /LPF (NONE SEEN); Urine Mucus 2+ /HPF (NONE SEEN); Urine RBC <5 /HPF (NONE SEEN)
[2021-08-04] MEDS: METOPROLOL TAR 25 MG TAB PO SCH (05:23)
[2021-08-04] MEDS: PANTOPRAZOLE 40MG TABLET PO SCH (05:23)
[2021-08-04] MEDS: LEVOTHYROXINE SOD 0.125 MG TAB PO SCH (05:24)
[2021-08-04] MEDS: INSULIN -REGULAR HUMAN 50 UNIT/0.5 ML ML SQ SCH ×4 (07:30→20:16)
[2021-08-04] MEDS: TRESIBA 40 UNIT SQ SCH (08:00)
[2021-08-04] MEDS: JARDIANCE 10 MG PO SCH (08:00)
[2021-08-04] MEDS: APIXABAN 5 MG TABLET PO SCH ×2 (08:52→20:16)
[2021-08-04] MEDS: GABAPENTIN 300 MG CAP PO SCH ×2 (08:52→20:15)
[2021-08-04] MEDS: AMIODARONE HCL 200 MG TAB PO SCH (08:53)
[2021-08-04] MEDS: TAMSULOSIN 0.4 MG SR CAP PO SCH (08:53)
[2021-08-04] MEDS: SPIRONOLACTONE 25 MG TABLET PO SCH (08:54)
[2021-08-04] MEDS: FINASTERIDE 5 MG TAB PO SCH (08:54)
[2021-08-04] MEDS: icosapent ethyL 1 GM CAP PO SCH ×2 (08:54→20:16)
[2021-08-04] MEDS: allopurinoL 100 MG TAB PO SCH ×2 (08:56→20:16)
[2021-08-04] MEDS: LIDOCAINE 4% PATCH TOP SCH (08:56)
[2021-08-04] MEDS: TRAMADOL HCL 50 MG TAB PO PRN ×3 (08:58→20:15)
[2021-08-04] MEDS: INSULIN GLARGINE 100 UNIT/ML SQ SCH (10:03)
[2021-08-04] MEDS: NYSTATIN PWDR 100000 UNIT/GM TOP SCH ×2 (10:04→20:16)
[2021-08-04] MEDS: DONEPEZIL HCL 5 MG TAB PO SCH (20:15)
[2021-08-04] MEDS: VITAMIN D 1000 UNIT TAB PO SCH (20:15)
[2021-08-04] MEDS: MELATONIN 3 MG TABLET PO PRN (20:15)
[2021-08-04] MEDS: ATORVASTATIN 10 MG TAB PO SCH (20:16)
[2021-08-05] MEDS: PANTOPRAZOLE 40MG TABLET PO SCH (05:03)
[2021-08-05] MEDS: METOPROLOL TAR 25 MG TAB PO SCH (05:03)
[2021-08-05] MEDS: LEVOTHYROXINE SOD 0.125 MG TAB PO SCH (06:16)
[2021-08-05 06:31] LABS: Potassium 4.2 mmol/L (3.5-5.1)
[2021-08-05] MEDS: INSULIN -REGULAR HUMAN 50 UNIT/0.5 ML ML SQ SCH ×4 (07:28→20:02)
[2021-08-05] MEDS: INSULIN GLARGINE 100 UNIT/ML SQ SCH (08:00)
[2021-08-05] MEDS: LIDOCAINE 4% PATCH TOP SCH (08:49)
[2021-08-05] MEDS: TRESIBA 40 UNIT SQ SCH (08:49)
[2021-08-05] MEDS: JARDIANCE 10 MG PO SCH (08:49)
[2021-08-05] MEDS: AMIODARONE HCL 200 MG TAB PO SCH (08:51)
[2021-08-05] MEDS: APIXABAN 5 MG TABLET PO SCH ×2 (08:51→20:01)
[2021-08-05] MEDS: FINASTERIDE 5 MG TAB PO SCH (08:51)
[2021-08-05] MEDS: SPIRONOLACTONE 25 MG TABLET PO SCH (08:51)
[2021-08-05] MEDS: icosapent ethyL 1 GM CAP PO SCH ×2 (08:51→20:01)
[2021-08-05] MEDS: TAMSULOSIN 0.4 MG SR CAP PO SCH (08:51)
[2021-08-05] MEDS: GABAPENTIN 300 MG CAP PO SCH ×2 (08:52→20:01)
[2021-08-05] MEDS: allopurinoL 100 MG TAB PO SCH ×2 (08:52→20:01)
[2021-08-05] MEDS: TRAMADOL HCL 50 MG TAB PO PRN ×2 (08:52→20:24)
[2021-08-05] MEDS: NYSTATIN PWDR 100000 UNIT/GM TOP SCH ×2 (11:12→20:02)
--- NOTE | 2021-08-05 11:28 | RAD REPORT ---
EXAM DESCRIPTION: RAD - Chest Single View - 08/05/2021 11:07 am CLINICAL HISTORY: CHF COMPARISON: Portable 07/31/2021, two view chest 03/09/2021 TECHNIQUE: AP portable chest image was obtained 08/05/2021 11:07 am . FINDINGS: Lung volumes are low. Interstitial prominence is present. Lung parenchymal pattern has imp roved but has not yet reached a more baseline appearance seen on the March 2021 study. [place] sculature has decreased in prominence. Heart size is normal range for shallow inspiration portable ex am. Pacer/ defibrillator in place. Sternotomy wires in place. No measurable pleural effusion and no pneumothorax. No acute bony abnormality seen. No acute aortic findings suspected. IMPRESSION: Partial clearing of the CHF/volume overload pattern seen on the July 31 imaging.
[2021-08-05] MEDS ORDERED: NA CHLORIDE 0.9% 500 ML IV SCH (14:00)
[2021-08-05] MEDS: ACETAMINOPHEN 500 MG TAB PO PRN (15:26)
[2021-08-05] MEDS: MELATONIN 3 MG TABLET PO PRN (20:01)
[2021-08-05] MEDS: ATORVASTATIN 10 MG TAB PO SCH (20:01)
[2021-08-05] MEDS: DONEPEZIL HCL 5 MG TAB PO SCH (20:02)
[2021-08-05] MEDS: VITAMIN D 1000 UNIT TAB PO SCH (20:02)
[2021-08-05] MEDS: JUVEN PACKET PO SCH (20:03)
[2021-08-06 04:57] LABS: Absolute Lymphocytes (CBC) 1.5 K/uL (0.7-4.9); Hematocrit 27.7 % (39.6-49.0); Lymphocytes % 16.1 % (15.3-44.8); MPV 8.1 fL (7.6-11.3); RBC Red Blood Cell Count 3.15 M/uL (4.33-5.43)
[2021-08-06 05:03] LABS: Potassium 4.2 mmol/L (3.5-5.1)
[2021-08-06] MEDS: METOPROLOL TAR 25 MG TAB PO SCH ×2 (05:06→17:16)
[2021-08-06] MEDS: PANTOPRAZOLE 40MG TABLET PO SCH (05:06)
[2021-08-06] MEDS: LEVOTHYROXINE SOD 0.125 MG TAB PO SCH (07:11)
[2021-08-06] MEDS: INSULIN -REGULAR HUMAN 50 UNIT/0.5 ML ML SQ SCH ×4 (07:30→20:10)
[2021-08-06] MEDS: NYSTATIN PWDR 100000 UNIT/GM TOP SCH ×2 (08:45→20:10)
[2021-08-06] MEDS: FINASTERIDE 5 MG TAB PO SCH (08:46)
[2021-08-06] MEDS: GABAPENTIN 300 MG CAP PO SCH ×2 (08:46→20:09)
[2021-08-06] MEDS: LIDOCAINE 4% PATCH TOP SCH (08:46)
[2021-08-06] MEDS: APIXABAN 5 MG TABLET PO SCH ×2 (08:47→20:10)
[2021-08-06] MEDS: allopurinoL 100 MG TAB PO SCH ×2 (08:47→20:10)
[2021-08-06] MEDS: SPIRONOLACTONE 25 MG TABLET PO SCH (08:47)
[2021-08-06] MEDS: ACETAMINOPHEN 500 MG TAB PO PRN ×2 (08:47→17:16)
[2021-08-06] MEDS: FERROUS SULFATE 325 MG TAB PO SCH ×2 (08:48→20:10)
[2021-08-06] MEDS: TAMSULOSIN 0.4 MG SR CAP PO SCH (08:48)
[2021-08-06] MEDS: AMIODARONE HCL 200 MG TAB PO SCH (08:48)
[2021-08-06] MEDS: TRESIBA 40 UNIT SQ SCH (08:49)
[2021-08-06] MEDS: JUVEN PACKET PO SCH ×2 (08:49→20:10)
[2021-08-06] MEDS: icosapent ethyL 1 GM CAP PO SCH ×2 (08:50→20:11)
[2021-08-06] MEDS: JARDIANCE 10 MG PO SCH (08:50)
[2021-08-06] MEDS: TRAMADOL HCL 50 MG TAB PO PRN (11:00)
[2021-08-06] MEDS ORDERED: NA CHLORIDE 0.9% 500 ML IV SCH ×2 (14:00→16:00)
--- NOTE | 2021-08-06 17:30 | R.PN ---
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 Pt denied any Shortness of Breath. He reports moderate pain in the right shoulder, back and lower extremities. He also admits to depress ion with poor interest in therapy and decreased energy. WBC 9.4, Hgb 9.2. He is on ferrous sulfate 325 mg bid. Glucose 138 to 244. Added Glargine 10 units sq daily. Self-propelled wheelchair 210' with minimum assistance. VITAL SIGNS Temperature: 97.6 F SBP/DBP: 142/61 Pulse: 84 Resp: 16 MEDICATION ALLERGIES: No Known Drug Allergies (NKDA) ENVIRONMENTAL ALLERGIES: - Substance Allergies None Known - Other Allergies None Known NURSING: - Shower allowing shower ACTIVITIES OOB only with supervision THERAPIES: - Dietary and Nutrition Adequate Nutrition. Nutritional Education. Nutritional Supplements. - Occupational Therapy Cognitive Retraining. Evaluate and Treat. Transfer Training. ADL Training. Adaptive Equipment. UE Str engthening. Household Tasks. Patient/Family Education. Safety Awareness. Visual Perceptual Training. UE ROM. - Speech Therapy Cognitive Training. Expressive Language Skills. Memory Strategies. Receptive Language Skills. Speech Intelligibility Training. - Physical Therapy Evaluate and Treat. LE Strengthening. Balance Training. Gait Training. Transfer Training. Mobility Tr aining. Safety Awareness. Patient/Family Education. PHYSICAL EXAM - Gen Alert and awake Lying in bed No apparent distress Oriented to: person, time, and place - Skin No breakdown No abnormalities - Eyes No abnormalities - ENMT No abnormalities - CVS RRR - Chest No abnormalities - Resp Course lungs bilaterally - Abd Soft - GI Non distended Deferred - No abnormalities - Ext Right shoulder pain and decreased range of motion. - MSK 4+/5 weakness in right upper extremity. - Neuro 4/5 strength right upper extremity. - Psych No abnormalities ASSESSMENT: Pt. is a 86 yo Right-handed male.On 07/31/2021 he was admitted to [facility] with diagno sis HYPONATREMIA, UTI, L1 TRANSVERSE PROCESS FX, T11-T12 RIB FXS.His impairment category is Medically Complex Conditions 17 - Other Medically Complex Conditions (17.9).Pre-morbidly, Pt. was independent /mod-I in Locomotion, Safety Awareness, Social Cognition, and Balance; and he had good Transfers Cont rol, Sphincter Control, Communication, Self-Care, and Endurance.Currently, he has deficits of Locomot ion, Safety Awareness, Balance, Social Cognition, Transfers Control, Sphincter Control, Communication , Endurance, and Self-Care.Pt. is now referred to [facility] for acute in-cat ent rehabilitation in order to maximize patient's functional independence in activities of daily sp ng, strength, ROM, and mobility.- Rehab Goal Patient has realistic goal of being discharged at assistance level 7-Ind to reside at Home with Fami ly/Relatives. MDM/PLAN: - Physical Therapy Gait dysfunction - to improve, our physical therapists will perform initial evaluation of pt's statu s upon admission and devise an individualized program for Gait Training, and Wheel Chair mobility Inability to transfer - to improve, our physical therapists will perform initial evaluation of pt's status upon admission and devise an individualized program for Bed mobility Need for home safety evaluation - to improve, our physical therapists will perform initial evaluatio n of pt's status upon admission and devise an individualized program for Home Evaluation Need in caregiver upon discharge - to improve, our physical therapists will perform initial evaluati on of pt's status upon admission and devise an individualized program for Caregiver Training New precaution - to improve, our physical therapists will perform initial evaluation of pt's status upon admission and devise an individualized program for Patient precaution education Poor balance - to improve, our physical therapists will perform initial evaluation of pt's status up on admission and devise an individualized program for Balance Training Poor endurance - to improve, our physical therapists will perform initial evaluation of pt's status upon admission and devise an individualized program for Endurance Training Weakness - to improve, our physical therapists will perform initial evaluation of pt's status upon a dmission and devise an individualized program for Aquatic Therapy, Neuromuscular Reeducation, and Str engthening Achieving independence - to improve, our physical therapists will perform initial evaluation of pt's status upon admission and devise an individualized program for Community Reintegration Activities - Occupational Therapy ADL deficits - to improve, our occupation therapists will perform initial evaluation of pt's status upon admission and devise an individualized program for Bathing, Bed mobility, Community Reintegratio n, Cooking, Dressing, Eating, Fine Motor Skills, Grooming, Homemaking, Kitchen Mobility, Laundry, Pat ient Education, Safety Awareness, Splinting - Positioning, Transfers(Toilet, Tub, Shower), and Wheel Chair Management Cognitive deficits - to improve, our occupation therapists will perform initial evaluation of pt's s tatus upon admission and devise an individualized program for Cognition - orientation Need for care management associate - to improve, our occupation therapists will perform initial evaluation of pt's status upon admission and devise an individualized program for Caregiver Training Weakness - to improve, our occupation therapists will perform initial evaluation of pt's status upon admission and devise an individualized program for Aquatic Therapy, Balance, Endurance, UE ROM, and UE strengthening - Other See attached MAR (Medication Administration Record) - Diet Type Continue Regular - Diet - Liquid Texture Continue Regular - Tube Feed Continue N/A - Diet - Solid Texture Continue Regular - Shower allowing shower FUNCTIONAL STATUS: UPDATED AT WEEKLY TEAM CONFERENCE - Bladder Same accident frequency: 7-Ind - No accidents in the past 7 days - Bowel Same accident frequency: 7-Ind - No accidents in the past 7 days - Walking Same score based on distance walked: 0(N/A) - Wheelchair Same score based on distance traveled: 0(N/A) FUNCTIONAL STATUS: - Self-Care A. Eating Rajat B. Grooming sup C. Bathing Navid D. Dressing - Upper sup E. Dressing - Lower Navid F. Toileting Navid - Sphincter Control G. Bladder control sup H. Bowel control sup - Transfers Control I. Bed/Chair/Wheelchair Navid J. Toilet Navid K. Tub/Shower Navid - Locomotion L. Walk/Wheelchair (B) Navid M. Stairs maxA - Communication N. Comprehension (B) Rajat O. Expression (B) sup - Social Cognition P. Social Interaction Rajat Q. Problem Solving sup R. Memory Rajat - Endurance Fair - Balance Fair - Safety Awareness Fair QI SCORES: - Self-Care A. Eating 03-Partial/moderate assistance B. Oral hygiene 03-Partial/moderate assistance C. Toileting hygiene 02-Substantial/maximal assistance E. Shower/bathe self 02-Substantial/maximal assistance F. Upper body dressing 02-Substantial/maximal assistance G. Lower body dressing 02-Substantial/maximal assistance H. Putting on/taking off footwear 88-Not attempted due to medical condition or safety concerns - Mobility A. Roll left and right 03-Partial/moderate assistance B. Sit to lying 03-Partial/moderate assistance C. Lying to sitting on side of bed 03-Partial/moderate assistance D. Sit to stand 02-Substantial/maximal assistance E. Chair/[id number] transfer 02-Substantial/maximal assistance F. Toilet transfer 02-Substantial/maximal assistance G. Car transfer 88-Not attempted due to medical condition or safety concerns I. Walk 10 feet 88-Not attempted due to medical condition or safety concerns J. Walk 50 feet with two turns 88-Not attempted due to medical condition or safety concerns K. Walk 150 feet 88-Not attempted due to medical condition or safety concerns L. Walking 10 feet on uneven surfaces 88-Not attempted due to medical condition or safety concerns M. 1 step (curb) 88-Not attempted due to medical condition or safety concerns N. 4 steps 88-Not attempted due to medical condition or safety concerns O. 12 steps 88-Not attempted due to medical condition or safety concerns P. Picking up object 88-Not attempted due to medical condition or safety concerns R. Wheel 50 feet with two turns 88-Not attempted due to medical condition or safety concerns S. Wheel 150 feet 88-Not attempted due to medical condition or safety concerns - Bladder and Bowel Bladder continence Bowel continence - Endurance Fair - Balance Fair - Safety Awareness Fair CURRENT [facility]. DEFICITS: Self-Care, Mobility, Endurance, Balance, and Safety Awareness SIGNATURE PANEL: (MAP COMPILER)
[2021-08-06] MEDS: MELATONIN 3 MG TABLET PO PRN (20:09)
[2021-08-06] MEDS: DONEPEZIL HCL 5 MG TAB PO SCH (20:09)
[2021-08-06] MEDS: VITAMIN D 1000 UNIT TAB PO SCH (20:09)
[2021-08-06] MEDS: ATORVASTATIN 10 MG TAB PO SCH (20:10)
[2021-08-06] MEDS: DULOXETINE 30 MG CAP PO SCH (20:10)
[2021-08-07 04:29] LABS: Absolute Lymphocytes (CBC) 1.7 K/uL (0.7-4.9); Hematocrit 26.8 % (39.6-49.0); Lymphocytes % 19.3 % (15.3-44.8); MPV 7.8 fL (7.6-11.3); RBC Red Blood Cell Count 3.07 M/uL (4.33-5.43)
[2021-08-07 04:48] LABS: Albumin 1.3 g/dL (3.4-5.0); Potassium 4.5 mmol/L (3.5-5.1); Prealbumin 6.4 mg/dL (20-40)
[2021-08-07] MEDS: METOPROLOL TAR 25 MG TAB PO SCH ×2 (05:02→17:32)
[2021-08-07] MEDS: PANTOPRAZOLE 40MG TABLET PO SCH (05:03)
[2021-08-07] MEDS: INSULIN -REGULAR HUMAN 50 UNIT/0.5 ML ML SQ SCH ×4 (07:30→20:31)
[2021-08-07] MEDS: INSULIN GLARGINE 100 UNIT/ML SQ SCH (08:00)
[2021-08-07] MEDS: icosapent ethyL 1 GM CAP PO SCH ×2 (08:19→20:31)
[2021-08-07] MEDS: allopurinoL 100 MG TAB PO SCH ×2 (08:20→20:31)
[2021-08-07] MEDS: SPIRONOLACTONE 25 MG TABLET PO SCH (08:20)
[2021-08-07] MEDS: GABAPENTIN 300 MG CAP PO SCH ×2 (08:20→20:31)
[2021-08-07] MEDS: APIXABAN 5 MG TABLET PO SCH ×2 (08:20→20:31)
[2021-08-07] MEDS: FERROUS SULFATE 325 MG TAB PO SCH ×2 (08:20→20:32)
[2021-08-07] MEDS: JARDIANCE 10 MG PO SCH (08:21)
[2021-08-07] MEDS: NYSTATIN PWDR 100000 UNIT/GM TOP SCH ×2 (08:21→20:30)
[2021-08-07] MEDS: FINASTERIDE 5 MG TAB PO SCH (08:21)
[2021-08-07] MEDS: LIDOCAINE 4% PATCH TOP SCH (08:21)
[2021-08-07] MEDS: TAMSULOSIN 0.4 MG SR CAP PO SCH (08:21)
[2021-08-07] MEDS: AMIODARONE HCL 200 MG TAB PO SCH (08:25)
[2021-08-07] MEDS: LEVOTHYROXINE SOD 0.125 MG TAB PO SCH (08:30)
[2021-08-07] MEDS: TRESIBA 40 UNIT SQ SCH (08:38)
--- NOTE | 2021-08-07 15:24 | RAD REPORT ---
EXAM DESCRIPTION: RAD - Elbow Left 2 View - 08/07/2021 3:17 pm CLINICAL HISTORY: large swelling to left elbow. COMPARISON: No comparisons FINDINGS: There is a large amount of swelling adjacent to the olecranon likely related to olecranon bursitis. Small olecranon spur is present.
[2021-08-07] MEDS: JUVEN PACKET PO SCH ×2 (16:17→20:33)
--- NOTE | 2021-08-07 17:42 | R.PN ---
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 Pt denied any Shortness of Breath. He reports moderate pain in the right shoulder, back and lower extremities. He also admits to depress ion with poor interest in therapy and decreased energy. WBC 8.7, Hgb 8.9. He is on ferrous sulfate 325 mg bid. Glucose 123 to 169. Prealbumin 6.4. Self-propelled wheelchair 160' with contact guard assistance. VITAL SIGNS Temperature: 97.1 F SBP/DBP: 136/70 Pulse: 74 Resp: 16 MEDICATION ALLERGIES: No Known Drug Allergies (NKDA) ENVIRONMENTAL ALLERGIES: - Substance Allergies None Known - Other Allergies None Known NURSING: - Shower allowing shower ACTIVITIES OOB only with supervision THERAPIES: - Dietary and Nutrition Adequate Nutrition. Nutritional Education. Nutritional Supplements. - Occupational Therapy Cognitive Retraining. Evaluate and Treat. Transfer Training. ADL Training. Adaptive Equipment. UE Str engthening. Household Tasks. Patient/Family Education. Safety Awareness. Visual Perceptual Training. UE ROM. - Speech Therapy Cognitive Training. Expressive Language Skills. Memory Strategies. Receptive Language Skills. Speech Intelligibility Training. - Physical Therapy Evaluate and Treat. LE Strengthening. Balance Training. Gait Training. Transfer Training. Mobility Tr aining. Safety Awareness. Patient/Family Education. PHYSICAL EXAM - Gen Alert and awake Lying in bed No apparent distress Oriented to: person, time, and place - Skin No breakdown No abnormalities - Eyes No abnormalities - ENMT No abnormalities - CVS RRR - Chest No abnormalities - Resp Course lungs bilaterally - Abd Soft - GI Non distended Deferred - No abnormalities - Ext Right shoulder pain and decreased range of motion. - MSK 4+/5 weakness in right upper extremity. - Neuro 4/5 strength right upper extremity. - Psych No abnormalities ASSESSMENT: Pt. is a 86 yo Right-handed male.On 07/31/2021 he was admitted to [facility] with diagno sis HYPONATREMIA, UTI, L1 TRANSVERSE PROCESS FX, T11-T12 RIB FXS.His impairment category is Medically Complex Conditions 17 - Other Medically Complex Conditions (17.9).Pre-morbidly, Pt. was independent /mod-I in Locomotion, Safety Awareness, Social Cognition, and Balance; and he had good Transfers Cont rol, Sphincter Control, Communication, Self-Care, and Endurance.Currently, he has deficits of Locomot ion, Safety Awareness, Balance, Social Cognition, Transfers Control, Sphincter Control, Communication , Endurance, and Self-Care.Pt. is now referred to [facility] for acute in-cat ent rehabilitation in order to maximize patient's functional independence in activities of daily sp ng, strength, ROM, and mobility.- Rehab Goal Patient has realistic goal of being discharged at assistance level 7-Ind to reside at Home with Fami ly/Relatives. MDM/PLAN: - Physical Therapy Gait dysfunction - to improve, our physical therapists will perform initial evaluation of pt's statu s upon admission and devise an individualized program for Gait Training, and Wheel Chair mobility Inability to transfer - to improve, our physical therapists will perform initial evaluation of pt's status upon admission and devise an individualized program for Bed mobility Need for home safety evaluation - to improve, our physical therapists will perform initial evaluatio n of pt's status upon admission and devise an individualized program for Home Evaluation Need in caregiver upon discharge - to improve, our physical therapists will perform initial evaluati on of pt's status upon admission and devise an individualized program for Caregiver Training New precaution - to improve, our physical therapists will perform initial evaluation of pt's status upon admission and devise an individualized program for Patient precaution education Poor balance - to improve, our physical therapists will perform initial evaluation of pt's status up on admission and devise an individualized program for Balance Training Poor endurance - to improve, our physical therapists will perform initial evaluation of pt's status upon admission and devise an individualized program for Endurance Training Weakness - to improve, our physical therapists will perform initial evaluation of pt's status upon a dmission and devise an individualized program for Aquatic Therapy, Neuromuscular Reeducation, and Str engthening Achieving independence - to improve, our physical therapists will perform initial evaluation of pt's status upon admission and devise an individualized program for Community Reintegration Activities - Occupational Therapy ADL deficits - to improve, our occupation therapists will perform initial evaluation of pt's status upon admission and devise an individualized program for Bathing, Bed mobility, Community Reintegratio n, Cooking, Dressing, Eating, Fine Motor Skills, Grooming, Homemaking, Kitchen Mobility, Laundry, Pat ient Education, Safety Awareness, Splinting - Positioning, Transfers(Toilet, Tub, Shower), and Wheel Chair Management Cognitive deficits - to improve, our occupation therapists will perform initial evaluation of pt's s tatus upon admission and devise an individualized program for Cognition - orientation Need for care management assistant - to improve, our occupation therapists will perform initial evaluation of pt's status upon admission and devise an individualized program for Caregiver Training Weakness - to improve, our occupation therapists will perform initial evaluation of pt's status upon admission and devise an individualized program for Aquatic Therapy, Balance, Endurance, UE ROM, and UE strengthening - Other See attached MAR (Medication Administration Record) - Diet Type Continue Regular - Diet - Liquid Texture Continue Regular - Tube Feed Continue N/A - Diet - Solid Texture Continue Regular - Shower allowing shower FUNCTIONAL STATUS: UPDATED AT WEEKLY TEAM CONFERENCE - Bladder Same accident frequency: 7-Ind - No accidents in the past 7 days - Bowel Same accident frequency: 7-Ind - No accidents in the past 7 days - Walking Same score based on distance walked: 0(N/A) - Wheelchair Same score based on distance traveled: 0(N/A) FUNCTIONAL STATUS: - Self-Care A. Eating Rajat B. Grooming sup C. Bathing Navid D. Dressing - Upper sup E. Dressing - Lower Navid F. Toileting Navid - Sphincter Control G. Bladder control sup H. Bowel control sup - Transfers Control I. Bed/Chair/Wheelchair Navid J. Toilet Navid K. Tub/Shower Navid - Locomotion L. Walk/Wheelchair (B) Navid M. Stairs maxA - Communication N. Comprehension (B) Rajat O. Expression (B) sup - Social Cognition P. Social Interaction Rajat Q. Problem Solving sup R. Memory Rajat - Endurance Fair - Balance Fair - Safety Awareness Fair QI SCORES: - Self-Care A. Eating 03-Partial/moderate assistance B. Oral hygiene 03-Partial/moderate assistance C. Toileting hygiene 02-Substantial/maximal assistance E. Shower/bathe self 02-Substantial/maximal assistance F. Upper body dressing 02-Substantial/maximal assistance G. Lower body dressing 02-Substantial/maximal assistance H. Putting on/taking off footwear 88-Not attempted due to medical condition or safety concerns - Mobility A. Roll left and right 03-Partial/moderate assistance B. Sit to lying 03-Partial/moderate assistance C. Lying to sitting on side of bed 03-Partial/moderate assistance D. Sit to stand 02-Substantial/maximal assistance E. Chair/[id number] transfer 02-Substantial/maximal assistance F. Toilet transfer 02-Substantial/maximal assistance G. Car transfer 88-Not attempted due to medical condition or safety concerns I. Walk 10 feet 88-Not attempted due to medical condition or safety concerns J. Walk 50 feet with two turns 88-Not attempted due to medical condition or safety concerns K. Walk 150 feet 88-Not attempted due to medical condition or safety concerns L. Walking 10 feet on uneven surfaces 88-Not attempted due to medical condition or safety concerns M. 1 step (curb) 88-Not attempted due to medical condition or safety concerns N. 4 steps 88-Not attempted due to medical condition or safety concerns O. 12 steps 88-Not attempted due to medical condition or safety concerns P. Picking up object 88-Not attempted due to medical condition or safety concerns R. Wheel 50 feet with two turns 88-Not attempted due to medical condition or safety concerns S. Wheel 150 feet 88-Not attempted due to medical condition or safety concerns - Bladder and Bowel Bladder continence Bowel continence - Endurance Fair - Balance Fair - Safety Awareness Fair [facility] 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
[2021-08-07] MEDS: DONEPEZIL HCL 5 MG TAB PO SCH (20:32)
[2021-08-07] MEDS: DULOXETINE 30 MG CAP PO SCH (20:32)
[2021-08-07] MEDS: VITAMIN D 1000 UNIT TAB PO SCH (20:32)
[2021-08-07] MEDS: MELATONIN 3 MG TABLET PO PRN (20:33)
[2021-08-07] MEDS: ATORVASTATIN 10 MG TAB PO SCH (20:33)
[2021-08-08] MEDS: PANTOPRAZOLE 40MG TABLET PO SCH (05:12)
[2021-08-08] MEDS: METOPROLOL TAR 25 MG TAB PO SCH ×2 (05:12→17:35)
[2021-08-08] MEDS: LEVOTHYROXINE SOD 0.125 MG TAB PO SCH (07:00)
[2021-08-08] MEDS: INSULIN -REGULAR HUMAN 50 UNIT/0.5 ML ML SQ SCH ×4 (07:08→20:27)
[2021-08-08 07:41] LABS: Absolute Lymphocytes (CBC) 1.6 K/uL (0.7-4.9); Hematocrit 28.7 % (39.6-49.0); Lymphocytes % 18.9 % (15.3-44.8); MPV 8.1 fL (7.6-11.3); RBC Red Blood Cell Count 3.27 M/uL (4.33-5.43)
[2021-08-08 08:02] LABS: Potassium 4.6 mmol/L (3.5-5.1)
[2021-08-08] MEDS: INSULIN GLARGINE 100 UNIT/ML SQ SCH (08:27)
[2021-08-08] MEDS: JARDIANCE 10 MG PO SCH (08:32)
[2021-08-08] MEDS: TRESIBA 40 UNIT SQ SCH (08:32)
[2021-08-08] MEDS: NYSTATIN PWDR 100000 UNIT/GM TOP SCH ×2 (08:33→20:24)
[2021-08-08] MEDS: icosapent ethyL 1 GM CAP PO SCH ×2 (08:33→20:28)
[2021-08-08] MEDS: GABAPENTIN 300 MG CAP PO SCH ×2 (08:33→20:21)
[2021-08-08] MEDS: AMIODARONE HCL 200 MG TAB PO SCH (08:34)
[2021-08-08] MEDS: TAMSULOSIN 0.4 MG SR CAP PO SCH (08:34)
[2021-08-08] MEDS: FINASTERIDE 5 MG TAB PO SCH (08:34)
[2021-08-08] MEDS: SPIRONOLACTONE 25 MG TABLET PO SCH (08:34)
[2021-08-08] MEDS: LIDOCAINE 4% PATCH TOP SCH (08:35)
[2021-08-08] MEDS: APIXABAN 5 MG TABLET PO SCH ×2 (08:36→20:21)
[2021-08-08] MEDS: FERROUS SULFATE 325 MG TAB PO SCH ×2 (08:37→20:21)
[2021-08-08] MEDS: allopurinoL 100 MG TAB PO SCH ×2 (08:37→20:21)
[2021-08-08] MEDS: JUVEN PACKET PO SCH ×2 (08:37→20:23)
[2021-08-08] MEDS: ACETAMINOPHEN 500 MG TAB PO PRN (08:38)
[2021-08-08] MEDS ORDERED: SPIRONOLACTONE 25 MG TABLET PO ONE (15:30)
--- NOTE | 2021-08-08 15:57 | RAD REPORT ---
EXAM DESCRIPTION: RAD - Abdomen 1 View (KUB) - 08/08/2021 3:51 pm CLINICAL HISTORY: distended abdomen COMPARISON: No comparisons FINDINGS: Bowel gas pattern is non-specific. No obstruction, free air or pneumatosis. No suspicious calcifications. Labels the normal pelvic floor. Cholecystectomy clips seen quadrant. Pacemaker/defib rillator wires overlie the lower chest. Sternotomy wires are visible. No significant bony findings IMPRESSION: Negative KUB examination for acute finding.
--- NOTE | 2021-08-08 15:58 | RAD REPORT ---
EXAM DESCRIPTION: RAD - Chest Single View - 08/08/2021 3:51 pm CLINICAL HISTORY: chf COMPARISON: Portable August 05 TECHNIQUE: AP portable chest image was obtained 08/08/2021 3:51 pm . FINDINGS: Lung volumes are low. Interstitial opacification throughout both lung weir noted similar to comparison. Baseline pattern could mask edema or infiltrate. Pacemaker/defibrillator in place. St ernotomy wires noted. Heart and vasculature are normal. No measurable pleural effusion and no pneumot horax. No acute bony abnormality seen. No acute aortic findings suspected. IMPRESSION: No acute cardiopulmonary process. Chronic interstitial pattern matches comparison. This could mask early edema or infiltrate.
--- NOTE | 2021-08-08 18:11 | R.PN ---
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 Pt denied any Shortness of Breath. He reports moderate pain in the right shoulder, back and lower extremities. He also admits to depress ion with poor interest in therapy and decreased energy. WBC 8.6, Hgb 9.2, He is on ferrous sulfate 325 mg bid. Glucose 143 to 177. Prealbumin 6.4. Calcium 8. 2. He reports pain all over and fatigue but completed limited therapeutic exercises with supervision. Left elbow x-ray shows a large amount of swelling adjacent to the olecranon with a small spur. Chest x-ray shows chronic interstitial pattern. His KUB is negative. VITAL SIGNS Temperature: 97.6 F SBP/DBP: 132/69 Pulse: 70 Resp: 16 MEDICATION ALLERGIES: No Known Drug Allergies (NKDA) ENVIRONMENTAL ALLERGIES: - Substance Allergies None Known - Other Allergies None Known NURSING: - Shower allowing shower ACTIVITIES OOB only with supervision THERAPIES: - Dietary and Nutrition Adequate Nutrition. Nutritional Education. Nutritional Supplements. - Occupational Therapy Cognitive Retraining. Evaluate and Treat. Transfer Training. ADL Training. Adaptive Equipment. UE Str engthening. Household Tasks. Patient/Family Education. Safety Awareness. Visual Perceptual Training. UE ROM. - Speech Therapy Cognitive Training. Expressive Language Skills. Memory Strategies. Receptive Language Skills. Speech Intelligibility Training. - Physical Therapy Evaluate and Treat. LE Strengthening. Balance Training. Gait Training. Transfer Training. Mobility Tr aining. Safety Awareness. Patient/Family Education. PHYSICAL EXAM - Gen Alert and awake Lying in bed No apparent distress Oriented to: person, time, and place - Skin No breakdown No abnormalities - Eyes No abnormalities - ENMT No abnormalities - CVS RRR - Chest No abnormalities - Resp Course lungs bilaterally - Abd Soft - GI Non distended Deferred - No abnormalities - Ext Right shoulder pain and decreased range of motion. - MSK 4+/5 weakness in right upper extremity. - Neuro 4/5 strength right upper extremity. - Psych No abnormalities ASSESSMENT: Pt. is a 86 yo Right-handed male.On 07/31/2021 he was admitted to [facility] with diagno sis HYPONATREMIA, UTI, L1 TRANSVERSE PROCESS FX, T11-T12 RIB FXS.His impairment category is Medically Complex Conditions 17 - Other Medically Complex Conditions (17.9).Pre-morbidly, Pt. was independent /mod-I in Locomotion, Safety Awareness, Social Cognition, and Balance; and he had good Transfers Cont rol, Sphincter Control, Communication, Self-Care, and Endurance.Currently, he has deficits of Locomot ion, Safety Awareness, Balance, Social Cognition, Transfers Control, Sphincter Control, Communication , Endurance, and Self-Care.Pt. is now referred to [facility] for acute in-cat ent rehabilitation in order to maximize patient's functional independence in activities of daily sp ng, strength, ROM, and mobility.- Rehab Goal Patient has realistic goal of being discharged at assistance level 7-Ind to reside at Home with Fami ly/Relatives. MDM/PLAN: - Physical Therapy Gait dysfunction - to improve, our physical therapists will perform initial evaluation of pt's statu s upon admission and devise an individualized program for Gait Training, and Wheel Chair mobility Inability to transfer - to improve, our physical therapists will perform initial evaluation of pt's status upon admission and devise an individualized program for Bed mobility Need for home safety evaluation - to improve, our physical therapists will perform initial evaluatio n of pt's status upon admission and devise an individualized program for Home Evaluation Need in caregiver upon discharge - to improve, our physical therapists will perform initial evaluati on of pt's status upon admission and devise an individualized program for Caregiver Training New precaution - to improve, our physical therapists will perform initial evaluation of pt's status upon admission and devise an individualized program for Patient precaution education Poor balance - to improve, our physical therapists will perform initial evaluation of pt's status up on admission and devise an individualized program for Balance Training Poor endurance - to improve, our physical therapists will perform initial evaluation of pt's status upon admission and devise an individualized program for Endurance Training Weakness - to improve, our physical therapists will perform initial evaluation of pt's status upon a dmission and devise an individualized program for Aquatic Therapy, Neuromuscular Reeducation, and Str engthening Achieving independence - to improve, our physical therapists will perform initial evaluation of pt's status upon admission and devise an individualized program for Community Reintegration Activities - Occupational Therapy ADL deficits - to improve, our occupation therapists will perform initial evaluation of pt's status upon admission and devise an individualized program for Bathing, Bed mobility, Community Reintegratio n, Cooking, Dressing, Eating, Fine Motor Skills, Grooming, Homemaking, Kitchen Mobility, Laundry, Pat ient Education, Safety Awareness, Splinting - Positioning, Transfers(Toilet, Tub, Shower), and Wheel Chair Management Cognitive deficits - to improve, our occupation therapists will perform initial evaluation of pt's s tatus upon admission and devise an individualized program for Cognition - orientation Need for neonatal intensive care unit nurse - to improve, our occupation therapists will perform initial evaluation of pt's status upon admission and devise an individualized program for Caregiver Training Weakness - to improve, our occupation therapists will perform initial evaluation of pt's status upon admission and devise an individualized program for Aquatic Therapy, Balance, Endurance, UE ROM, and UE strengthening - Other See attached MAR (Medication Administration Record) - Diet Type Continue Regular - Diet - Liquid Texture Continue Regular - Tube Feed Continue N/A - Diet - Solid Texture Continue Regular - Shower allowing shower FUNCTIONAL STATUS: UPDATED AT WEEKLY TEAM CONFERENCE - Bladder Same accident frequency: 7-Ind - No accidents in the past 7 days - Bowel Same accident frequency: 7-Ind - No accidents in the past 7 days - Walking Same score based on distance walked: 0(N/A) - Wheelchair Same score based on distance traveled: 0(N/A) FUNCTIONAL STATUS: - Self-Care A. Eating Rajat B. Grooming sup C. Bathing Navid D. Dressing - Upper sup E. Dressing - Lower Navid F. Toileting Navid - Sphincter Control G. Bladder control sup H. Bowel control sup - Transfers Control I. Bed/Chair/Wheelchair Navid J. Toilet Navid K. Tub/Shower Navid - Locomotion L. Walk/Wheelchair (B) Navid M. Stairs maxA - Communication N. Comprehension (B) Rajat O. Expression (B) sup - Social Cognition P. Social Interaction Rajat Q. Problem Solving sup R. Memory Rajat - Endurance Fair - Balance Fair - Safety Awareness Fair QI SCORES: - Self-Care A. Eating 03-Partial/moderate assistance B. Oral hygiene 03-Partial/moderate assistance C. Toileting hygiene 02-Substantial/maximal assistance E. Shower/bathe self 02-Substantial/maximal assistance F. Upper body dressing 02-Substantial/maximal assistance G. Lower body dressing 02-Substantial/maximal assistance H. Putting on/taking off footwear 88-Not attempted due to medical condition or safety concerns - Mobility A. Roll left and right 03-Partial/moderate assistance B. Sit to lying 03-Partial/moderate assistance C. Lying to sitting on side of bed 03-Partial/moderate assistance D. Sit to stand 02-Substantial/maximal assistance E. Chair/[id number] transfer 02-Substantial/maximal assistance F. Toilet transfer 02-Substantial/maximal assistance G. Car transfer 88-Not attempted due to medical condition or safety concerns I. Walk 10 feet 88-Not attempted due to medical condition or safety concerns J. Walk 50 feet with two turns 88-Not attempted due to medical condition or safety concerns K. Walk 150 feet 88-Not attempted due to medical condition or safety concerns L. Walking 10 feet on uneven surfaces 88-Not attempted due to medical condition or safety concerns M. 1 step (curb) 88-Not attempted due to medical condition or safety concerns N. 4 steps 88-Not attempted due to medical condition or safety concerns O. 12 steps 88-Not attempted due to medical condition or safety concerns P. Picking up object 88-Not attempted due to medical condition or safety concerns R. Wheel 50 feet with two turns 88-Not attempted due to medical condition or safety concerns S. Wheel 150 feet 88-Not attempted due to medical condition or safety concerns - Bladder and Bowel Bladder continence Bowel continence - Endurance Fair - Balance Fair - Safety Awareness Fair [facility] DEFICITS: Self-Care, Mobility, Endurance, Balance, and Safety Awareness SIGNATURE PANEL: (FRENCH CORD BINDER)
[2021-08-08] MEDS: MELATONIN 3 MG TABLET PO PRN (20:21)
[2021-08-08] MEDS: VITAMIN D 1000 UNIT TAB PO SCH (20:21)
[2021-08-08] MEDS: DONEPEZIL HCL 5 MG TAB PO SCH (20:21)
[2021-08-08] MEDS: DULOXETINE 30 MG CAP PO SCH (20:21)
[2021-08-08] MEDS: ATORVASTATIN 10 MG TAB PO SCH (20:24)
[2021-08-09] MEDS: METOPROLOL TAR 25 MG TAB PO SCH ×2 (05:02→17:17)
[2021-08-09] MEDS: PANTOPRAZOLE 40MG TABLET PO SCH (05:03)
[2021-08-09 05:11] LABS: Absolute Lymphocytes (CBC) 1.8 K/uL (0.7-4.9); Hematocrit 27.7 % (39.6-49.0); MPV 7.9 fL (7.6-11.3); RBC Red Blood Cell Count 3.19 M/uL (4.33-5.43)
[2021-08-09 05:45] LABS: Albumin 1.4 g/dL (3.4-5.0); Potassium 4.4 mmol/L (3.5-5.1); Prealbumin 9.1 mg/dL (20-40)
[2021-08-09] MEDS: LEVOTHYROXINE SOD 0.125 MG TAB PO SCH (06:36)
[2021-08-09] MEDS: INSULIN -REGULAR HUMAN 50 UNIT/0.5 ML ML SQ SCH ×4 (07:07→19:54)
[2021-08-09] MEDS: TRESIBA 40 UNIT SQ SCH (08:00)
[2021-08-09] MEDS: INSULIN GLARGINE 100 UNIT/ML SQ SCH (08:00)
[2021-08-09] MEDS: NYSTATIN PWDR 100000 UNIT/GM TOP SCH ×2 (08:09→19:54)
[2021-08-09] MEDS: SPIRONOLACTONE 25 MG TABLET PO SCH (08:10)
[2021-08-09] MEDS: LIDOCAINE 4% PATCH TOP SCH (08:10)
[2021-08-09] MEDS: AMIODARONE HCL 200 MG TAB PO SCH (08:11)
[2021-08-09] MEDS: FINASTERIDE 5 MG TAB PO SCH (08:11)
[2021-08-09] MEDS: TAMSULOSIN 0.4 MG SR CAP PO SCH (08:11)
[2021-08-09] MEDS: FERROUS SULFATE 325 MG TAB PO SCH ×2 (08:11→19:53)
[2021-08-09] MEDS: icosapent ethyL 1 GM CAP PO SCH ×2 (08:11→19:53)
[2021-08-09] MEDS: GABAPENTIN 300 MG CAP PO SCH ×2 (08:12→19:53)
[2021-08-09] MEDS: APIXABAN 5 MG TABLET PO SCH ×2 (08:12→19:53)
[2021-08-09] MEDS: JUVEN PACKET PO SCH ×2 (08:13→19:53)
[2021-08-09] MEDS: JARDIANCE 10 MG PO SCH (08:13)
[2021-08-09] MEDS: allopurinoL 100 MG TAB PO SCH ×2 (08:17→19:53)
[2021-08-09] MEDS: ACETAMINOPHEN 500 MG TAB PO PRN (08:40)
[2021-08-09 16:11] LABS: Magnesium 2.5
--- NOTE | 2021-08-09 17:36 | R.PN ---
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 Pt denied any Shortness of Breath. He reports moderate pain in the right shoulder, back and lower extremities. He also admits to depress ion with poor interest in therapy and decreased energy. WBC 8.5, Hgb 9.2, He is on ferrous sulfate 325 mg bid. Sort Line 1.91, prealbumin 9.1 .Glucose 105 to 170. Calcium 7.9, Na 132. He reports pain all over and fatigue but completed limited exercises with supervision to contact guar d assistance. Self-propelled wheelchair 250' with contact guard assistance. Left elbow shows a decreased amount of swelling adjacent to the olecranon. Chest x-ray shows chronic interstitial pattern. His KUB is negative. VITAL SIGNS Temperature: 98.4 F SBP/DBP: 147/60 Pulse: 71 Resp: 15 MEDICATION ALLERGIES: No Known Drug Allergies (NKDA) ENVIRONMENTAL ALLERGIES: - Substance Allergies None Known - Other Allergies None Known NURSING: - Shower allowing shower ACTIVITIES OOB only with supervision THERAPIES: - Dietary and Nutrition Adequate Nutrition. Nutritional Education. Nutritional Supplements. - Occupational Therapy Cognitive Retraining. Evaluate and Treat. Transfer Training. ADL Training. Adaptive Equipment. UE Str engthening. Household Tasks. Patient/Family Education. Safety Awareness. Visual Perceptual Training. UE ROM. - Speech Therapy Cognitive Training. Expressive Language Skills. Memory Strategies. Receptive Language Skills. Speech Intelligibility Training. - Physical Therapy Evaluate and Treat. LE Strengthening. Balance Training. Gait Training. Transfer Training. Mobility Tr aining. Safety Awareness. Patient/Family Education. PHYSICAL EXAM - Gen Alert and awake Lying in bed No apparent distress Oriented to: person, time, and place - Skin No breakdown No abnormalities - Eyes No abnormalities - ENMT No abnormalities - CVS RRR - Chest No abnormalities - Resp Course lungs bilaterally - Abd Soft - GI Non distended Deferred - No abnormalities - Ext Right shoulder pain and decreased range of motion. - MSK 4+/5 weakness in right upper extremity. - Neuro 4/5 strength right upper extremity. - Psych No abnormalities ASSESSMENT: Pt. is a 86 yo Right-handed male.On 07/31/2021 he was admitted to [facility] with diagno sis HYPONATREMIA, UTI, L1 TRANSVERSE PROCESS FX, T11-T12 RIB FXS.His impairment category is Medically Complex Conditions 17 - Other Medically Complex Conditions (17.9).Pre-morbidly, Pt. was independent /mod-I in Locomotion, Safety Awareness, Social Cognition, and Balance; and he had good Transfers Cont rol, Sphincter Control, Communication, Self-Care, and Endurance.Currently, he has deficits of Locomot ion, Safety Awareness, Balance, Social Cognition, Transfers Control, Sphincter Control, Communication , Endurance, and Self-Care.Pt. is now referred to [facility] for acute in-cat ent rehabilitation in order to maximize patient's functional independence in activities of daily sp ng, strength, ROM, and mobility.- Rehab Goal Patient has realistic goal of being discharged at assistance level 7-Ind to reside at Home with Fami ly/Relatives. MDM/PLAN: - Physical Therapy Gait dysfunction - to improve, our physical therapists will perform initial evaluation of pt's statu s upon admission and devise an individualized program for Gait Training, and Wheel Chair mobility Inability to transfer - to improve, our physical therapists will perform initial evaluation of pt's status upon admission and devise an individualized program for Bed mobility Need for home safety evaluation - to improve, our physical therapists will perform initial evaluatio n of pt's status upon admission and devise an individualized program for Home Evaluation Need in caregiver upon discharge - to improve, our physical therapists will perform initial evaluati on of pt's status upon admission and devise an individualized program for Caregiver Training New precaution - to improve, our physical therapists will perform initial evaluation of pt's status upon admission and devise an individualized program for Patient precaution education Poor balance - to improve, our physical therapists will perform initial evaluation of pt's status up on admission and devise an individualized program for Balance Training Poor endurance - to improve, our physical therapists will perform initial evaluation of pt's status upon admission and devise an individualized program for Endurance Training Weakness - to improve, our physical therapists will perform initial evaluation of pt's status upon a dmission and devise an individualized program for Aquatic Therapy, Neuromuscular Reeducation, and Str engthening Achieving independence - to improve, our physical therapists will perform initial evaluation of pt's status upon admission and devise an individualized program for Community Reintegration Activities - Occupational Therapy ADL deficits - to improve, our occupation therapists will perform initial evaluation of pt's status upon admission and devise an individualized program for Bathing, Bed mobility, Community Reintegratio n, Cooking, Dressing, Eating, Fine Motor Skills, Grooming, Homemaking, Kitchen Mobility, Laundry, Pat ient Education, Safety Awareness, Splinting - Positioning, Transfers(Toilet, Tub, Shower), and Wheel Chair Management Cognitive deficits - to improve, our occupation therapists will perform initial evaluation of pt's s tatus upon admission and devise an individualized program for Cognition - orientation Need for menagerie caretaker - to improve, our occupation therapists will perform initial evaluation of pt's status upon admission and devise an individualized program for Caregiver Training Weakness - to improve, our occupation therapists will perform initial evaluation of pt's status upon admission and devise an individualized program for Aquatic Therapy, Balance, Endurance, UE ROM, and UE strengthening - Other See attached MAR (Medication Administration Record) - Diet Type Continue Regular - Diet - Liquid Texture Continue Regular - Tube Feed Continue N/A - Diet - Solid Texture Continue Regular - Shower allowing shower FUNCTIONAL STATUS: UPDATED AT WEEKLY TEAM CONFERENCE - Bladder Same accident frequency: 7-Ind - No accidents in the past 7 days - Bowel Same accident frequency: 7-Ind - No accidents in the past 7 days - Walking Same score based on distance walked: 0(N/A) - Wheelchair Same score based on distance traveled: 0(N/A) FUNCTIONAL STATUS: - Self-Care A. Eating Rajat B. Grooming sup C. Bathing Navid D. Dressing - Upper sup E. Dressing - Lower Navid F. Toileting Navid - Sphincter Control G. Bladder control sup H. Bowel control sup - Transfers Control I. Bed/Chair/Wheelchair Navid J. Toilet Navid K. Tub/Shower Navid - Locomotion L. Walk/Wheelchair (B) Navid M. Stairs maxA - Communication N. Comprehension (B) Rajat O. Expression (B) sup - Social Cognition P. Social Interaction Rajat Q. Problem Solving sup R. Memory Rajat - Endurance Fair - Balance Fair - Safety Awareness Fair QI SCORES: - Self-Care A. Eating 03-Partial/moderate assistance B. Oral hygiene 03-Partial/moderate assistance C. Toileting hygiene 02-Substantial/maximal assistance E. Shower/bathe self 02-Substantial/maximal assistance F. Upper body dressing 02-Substantial/maximal assistance G. Lower body dressing 02-Substantial/maximal assistance H. Putting on/taking off footwear 88-Not attempted due to medical condition or safety concerns - Mobility A. Roll left and right 03-Partial/moderate assistance B. Sit to lying 03-Partial/moderate assistance C. Lying to sitting on side of bed 03-Partial/moderate assistance D. Sit to stand 02-Substantial/maximal assistance E. Chair/ghp-db-[id number] transfer 02-Substantial/maximal assistance F. Toilet transfer 02-Substantial/maximal assistance G. Car transfer 88-Not attempted due to medical condition or safety concerns I. Walk 10 feet 88-Not attempted due to medical condition or safety concerns J. Walk 50 feet with two turns 88-Not attempted due to medical condition or safety concerns K. Walk 150 feet 88-Not attempted due to medical condition or safety concerns L. Walking 10 feet on uneven surfaces 88-Not attempted due to medical condition or safety concerns M. 1 step (curb) 88-Not attempted due to medical condition or safety concerns N. 4 steps 88-Not attempted due to medical condition or safety concerns O. 12 steps 88-Not attempted due to medical condition or safety concerns P. Picking up object 88-Not attempted due to medical condition or safety concerns R. Wheel 50 feet with two turns 88-Not attempted due to medical condition or safety concerns S. Wheel 150 feet 88-Not attempted due to medical condition or safety concerns - Bladder and Bowel Bladder continence Bowel continence - Endurance Fair - Balance Fair - Safety Awareness Fair [facility] 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
[2021-08-09] MEDS: DULOXETINE 30 MG CAP PO SCH (19:53)
[2021-08-09] MEDS: ATORVASTATIN 10 MG TAB PO SCH (19:53)
[2021-08-09] MEDS: VITAMIN D 1000 UNIT TAB PO SCH (19:53)
[2021-08-09] MEDS: DONEPEZIL HCL 5 MG TAB PO SCH (19:53)
[2021-08-09] MEDS: MELATONIN 3 MG TABLET PO PRN (19:55)
[2021-08-10] MEDS: METOPROLOL TAR 25 MG TAB PO SCH ×2 (05:03→17:14)
[2021-08-10] MEDS: PANTOPRAZOLE 40MG TABLET PO SCH (05:04)
[2021-08-10 06:10] LABS: Absolute Lymphocytes (CBC) 1.9 K/uL (0.7-4.9); Hematocrit 29.4 % (39.6-49.0); MPV 7.8 fL (7.6-11.3); RBC Red Blood Cell Count 3.37 M/uL (4.33-5.43)
[2021-08-10 06:26] LABS: Potassium 4.7 mmol/L (3.5-5.1)
[2021-08-10] MEDS: LEVOTHYROXINE SOD 0.125 MG TAB PO SCH (06:47)
[2021-08-10] MEDS: INSULIN -REGULAR HUMAN 50 UNIT/0.5 ML ML SQ SCH ×4 (07:14→21:49)
--- NOTE | 2021-08-10 07:23 | ECHO ---
HEIGHT: 5 ft 11 in WEIGHT: 235 lb 9.6 oz DATE OF STUDY: 08/09/[address]: Ori Rojo MD 2-DIMENSIONAL: YES M.MODE: YES DOPPLER: YES COLOR FLOW: YES TDS: NO PORTABLE: NO DEFINITY: NO BUBBLE STUDY: NO DIAGNOSIS: CONGESTIVE HEART FAILURE CARDIAC HISTORY: CATHERIZATION: SURGERY: PROSTHETIC VALVE: PACEMAKER: MEASUREMENTS (cm) DIASTOLIC (NORMALS) SYSTOLIC (NORMALS) IVSd 1.1 (0.6-1.2) LA Diam 4.8 (1.9-4.0) LVEF 52% LVIDd 5.5 (3.5-5.7) LVIDs 4.0 (2.0-3.5) %FS 27% LVPWd 1.1 (0.6-1.2) Ao Diam 2.4 (2.0-3.7) 2 DIMENSIONAL ASSESSMENT: RIGHT ATRIUM: NORMAL LEFT ATRIUM: ENLARGED RIGHT VENTRICLE: NORMAL LEFT VENTRICLE: NORMAL TRICUSPID VALVE: MITRAL VALVE: PULMONIC VALVE: NORMAL AORTIC VALVE: BIOPROSTHESIS PERICARDIAL EFFUSION: NONE AORTIC ROOT: NORMAL LEFT VENTRICULAR WALL MOTION: NORMAL DOPPLER/COLOR FLOW: SEE BELOW COMMENTS: NORMAL LEFT VENTRICULAR EJECTION FRACTION 50-55%. 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 LEFT ATRIAL ENLARGEMENT. SEVERE DIASTOLIC DYSFUNCTION. 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 SEVERE TRICUSPID REGURGITATION. TECHNOLOGIST: Marie DUNN
[2021-08-10] MEDS: GABAPENTIN 300 MG CAP PO SCH ×2 (07:55→20:34)
[2021-08-10] MEDS: ACETAMINOPHEN 500 MG TAB PO PRN (07:56)
[2021-08-10] MEDS: AMIODARONE HCL 200 MG TAB PO SCH (07:56)
[2021-08-10] MEDS: allopurinoL 100 MG TAB PO SCH ×2 (07:57→20:36)
[2021-08-10] MEDS: TAMSULOSIN 0.4 MG SR CAP PO SCH (07:57)
[2021-08-10] MEDS: FINASTERIDE 5 MG TAB PO SCH (07:57)
[2021-08-10] MEDS: FERROUS SULFATE 325 MG TAB PO SCH ×2 (07:57→20:34)
[2021-08-10] MEDS: SPIRONOLACTONE 25 MG TABLET PO SCH (07:57)
[2021-08-10] MEDS: APIXABAN 5 MG TABLET PO SCH ×2 (07:57→20:33)
[2021-08-10] MEDS: LIDOCAINE 4% PATCH TOP SCH (07:58)
[2021-08-10] MEDS: JARDIANCE 10 MG PO SCH (07:59)
[2021-08-10] MEDS: JUVEN PACKET PO SCH ×2 (07:59→20:34)
--- NOTE | 2021-08-10 10:15 | P.RH.PN ---
Estimated Length of Stay: 15 Expected Discharge Date: 08/17/21 Discharge Disposition Plan: Home Family Support: Yes Prison Goal: Mobility, Transfers, Self Care Vital Signs: Last Vital Signs Temp 96.6 F L 08/10/21 08:00 Pulse 72 08/10/21 08:00 Resp 20 08/10/21 08:00 BP 119/56 L 08/10/21 08:00 Pulse Ox 96 08/10/21 08:00 Laboratory: Laboratory Last Values WBC 8.50 K/uL (4.3-10.9) 08/10/21 05:35 RBC 3.37 M/uL (4.33-5.43) L 08/10/21 05:35 Hgb 9.5 g/dL (13.6-17.9) L 08/10/21 05:35 Hct 29.4 % (39.6-49.0) L 08/10/21 05:35 MCV 87.2 fL (80-100) 08/10/21 05:35 MCH 28.1 pg (27.0-35.0) 08/10/21 05:35 MCHC 32.2 g/dL (32.0-36.0) 08/10/21 05:35 RDW 18.1 % (12.1-15.2) H 08/10/21 05:35 Plt Count 327 K/uL (152-406) 08/10/21 05:35 MPV 7.8 fL (7.6-11.3) 08/10/21 05:35 Neutrophils % 67.6 % (41.7-73.7) 08/10/21 05:35 Lymphocytes % 22.0 % (15.3-44.8) 08/10/21 05:35 Monocytes % 7.9 % (3.3-12.3) 08/10/21 05:35 Eosinophils % 2.1 % (0-4.4) 08/10/21 05:35 Basophils % 0.4 % (0-1.3) 08/10/21 05:35 Absolute Neutrophils 5.8 K/uL (1.8-8.0) 08/10/21 05:35 Absolute Lymphocytes 1.9 K/uL (0.7-4.9) 08/10/21 05:35 Absolute Monocytes 0.7 K/uL (0.1-1.3) 08/10/21 05:35 Absolute Eosinophils 0.2 K/uL (0-0.5) 08/10/21 05:35 Absolute Basophils 0.0 K/uL (0-0.5) 08/10/21 05:35 Sodium 131 mmol/L (136-145) L 08/10/21 05:35 Potassium 4.7 mmol/L (3.5-5.1) 08/10/21 05:35 Chloride 99 mmol/L (98-107) 08/10/21 05:35 Carbon Dioxide 24 mmol/L (21-32) 08/10/21 05:35 BUN 60 mg/dL (7-18) H 08/10/21 05:35 Creatinine 1.94 mg/dL (0.55-1.3) H 08/10/21 05:35 Estimated GFR 33 mL/min (=/>90) L 08/10/21 05:35 Glucose 162 mg/dL (74-106) H 08/10/21 05:35 POC Glucose 154 mg/dL (65-120) H 08/10/21 06:52 Uric Acid 5.9 mg/dL (3.5-7.2) 08/04/21 06:05 Calcium 8.0 mg/dL (8.5-10.1) L 08/10/21 05:35 Magnesium 2.5 08/09/21 04:22 Albumin 1.4 g/dL (3.4-5.0) L 08/09/21 04:22 Prealbumin 9.1 mg/dL (20-40) L 08/09/21 04:22 Urine Color Yellow (Yellow) 08/03/21 19:00 Urine Appearance Cloudy (Clear) 08/03/21 19:00 Urine pH 5.5 (5.0-7.0) 08/03/21 19:00 Ur Specific [place] 1.015 (1.005-1.030) 08/03/21 19:00 Glucose (UA)(Auto) 1+ (Negative) H 08/03/21 19:00 Urine Ketones Negative (Negative) 08/03/21 19:00 Urine Blood Negative (Negative) 08/03/21 19:00 Urine Nitrite Negative (Negative) 08/03/21 19:00 Urine Bilirubin Negative (Negative) 08/03/21 19:00 Urine Urobilinogen 0.2 mg/dL (0.2-1.0) 08/03/21 19:00 Ur Leukocyte Esterase Negative (Negative) 08/03/21 19:00 Urine RBC <5 /HPF (NONE SEEN) 08/03/21 19:00 Urine WBC <5 /HPF (<5) 08/03/21 19:00 Ur Squamous Epith Cells <5 /HPF (NONE SEEN) 08/03/21 19:00 Amorphous Sediment 2+ /HPF (NONE SEEN) H 08/03/21 19:00 Urine Bacteria >50 /HPF (NONE SEEN) H 08/03/21 19:00 Hyaline Casts 0-5 /LPF (NONE SEEN) 08/03/21 19:00 Fine Granular Casts 0-5 /LPF (NONE SEEN) 08/03/21 19:00 Coarse Granular Casts 0-5 /LPF (NONE SEEN) 08/03/21 19:00 Urine Mucus 2+ /HPF (NONE SEEN) 08/03/21 19:00 Urine Culture Reflexed Reflexed 08/03/21 19:00 Urine Total Protein Negative (Negative) 08/03/21 19:00 SARS-CoV-2 Rap RNA(RT-PCR) Negative (NEGATIVE) 08/07/21 04:00 Weight: 235 lb 9.6 oz Wound Present: No Closed Surgical Incision Present: No Negative Pressure Wound Therapy Present: No Physician Update: Labs reviewed and are stable. He is reporting in all areas. Propelled a wheelchair 150' with minimum assistance. He is min assistance for bathing and max assistance for other ADLs. His uric acid level was normal. Will increrase his antidepressent. Working on attention and memory. Comment: bruising noted to bilateral arm. skin tear to left arm sustained during fall at home. guaze then tegraderm intact. Functional Improvement: Patient presents w/ lack of motivation or desire toward participating in therapy. Patient continually requests to return to bed. Summary: Patient's care plan and termite inspector goals have been reviewed and revised as necessary. Please see the Rehabilitation Signature page for all necessary signatures.
[2021-08-10] MEDS: icosapent ethyL 1 GM CAP PO SCH ×2 (10:30→20:35)
[2021-08-10] MEDS: NYSTATIN PWDR 100000 UNIT/GM TOP SCH ×2 (10:31→20:34)
[2021-08-10] MEDS: TRESIBA 40 UNIT SQ SCH (10:31)
[2021-08-10] MEDS: DULOXETINE 20 MG CAP PO SCH (20:34)
[2021-08-10] MEDS: ATORVASTATIN 10 MG TAB PO SCH (20:34)
[2021-08-10] MEDS: DONEPEZIL HCL 5 MG TAB PO SCH (20:35)
[2021-08-10] MEDS: VITAMIN D 1000 UNIT TAB PO SCH (20:37)
[2021-08-10] MEDS: MELATONIN 3 MG TABLET PO PRN (20:45)
[2021-08-11] MEDS: METOPROLOL TAR 25 MG TAB PO SCH ×2 (05:11→16:51)
[2021-08-11 05:30] VITALS: BMI 31.6
[2021-08-11 06:20] LABS: Absolute Lymphocytes (CBC) 1.9 K/uL (0.7-4.9); Hematocrit 28.8 % (39.6-49.0); Lymphocytes % 26.4 % (15.3-44.8); MPV 7.4 fL (7.6-11.3)
[2021-08-11 06:34] LABS: Potassium 4.6 mmol/L (3.5-5.1)
[2021-08-11] MEDS: GABAPENTIN 300 MG CAP PO SCH ×2 (07:21→20:21)
[2021-08-11] MEDS: PANTOPRAZOLE 40MG TABLET PO SCH (07:21)
[2021-08-11] MEDS: LEVOTHYROXINE SOD 0.125 MG TAB PO SCH (07:21)
[2021-08-11] MEDS: TRAMADOL HCL 50 MG TAB PO PRN (07:22)
[2021-08-11] MEDS: INSULIN -REGULAR HUMAN 50 UNIT/0.5 ML ML SQ SCH ×4 (07:30→20:22)
[2021-08-11] MEDS: LIDOCAINE 4% PATCH TOP SCH (07:46)
[2021-08-11] MEDS: TAMSULOSIN 0.4 MG SR CAP PO SCH (07:46)
[2021-08-11] MEDS: FERROUS SULFATE 325 MG TAB PO SCH ×2 (07:47→20:21)
[2021-08-11] MEDS: allopurinoL 100 MG TAB PO SCH ×2 (07:47→20:21)
[2021-08-11] MEDS: APIXABAN 5 MG TABLET PO SCH ×2 (07:47→20:21)
[2021-08-11] MEDS: AMIODARONE HCL 200 MG TAB PO SCH (07:47)
[2021-08-11] MEDS: SPIRONOLACTONE 25 MG TABLET PO SCH (07:47)
[2021-08-11] MEDS: FINASTERIDE 5 MG TAB PO SCH (07:47)
[2021-08-11] MEDS: JUVEN PACKET PO SCH ×2 (07:48→20:22)
[2021-08-11] MEDS: NYSTATIN PWDR 100000 UNIT/GM TOP SCH ×2 (07:48→20:22)
[2021-08-11] MEDS: JARDIANCE 10 MG PO SCH (07:51)
[2021-08-11] MEDS: icosapent ethyL 1 GM CAP PO SCH ×2 (07:51→20:21)
[2021-08-11] MEDS: TRESIBA 40 UNIT SQ SCH (07:51)
--- NOTE | 2021-08-11 16:43 | CON ---
Date of Consultation: 08/08/2021 Reason For Consultation: Coronary artery disease, congestive heart failure, atrial fibrillation. History Of Present Illness: Mr. Mercado is 86 years old. He was admitted to the rehabilitation on and has been followed by Dr. Rosa and Dr. Monsalve for multiple reasons including UTI, CVA, DVT, multiple falls, diabetes, pneumonia, coronary artery disease, and congestive heart failure. He was initially admitted with hyponatremia, UTI, a transverse process fracture and rib fracture. He i s not having any congestive heart failure symptoms now, but I was asked to follow him or at least con sult on him because of his complicated past history. Echocardiogram that was done showed a bioprosth etic aortic valve, normal function, ejection fraction of 55%. He does have, however, severe pulmonar y hypertension with a pulmonary artery pressure more than 60 mmHg. Past Medical History: As stated above. Allergies: NONE. Review of Systems: Negative. Social History: Negative. Family History: Noncontributory. Medications: His present medical regimen includes amiodarone, Eliquis, Lipitor, donepezil, iron, dul oxetine, finasteride, gabapentin, insulin, levothyroxine, metoprolol, Jardiance, Tresiba, spironolact one, tamsulosin, allopurinol, and tramadol. Physical Examination: Vital Signs: When I saw him; he was in sinus rhythm. Vital signs were stable. He was afebrile. HEENT: Negative. Neck: Supple without any bruit. Chest: Revealed some rales at both bases. Cardiac: Revealed a regular rhythm and rate with S4 gallops. No murmurs or rubs. Abdomen: Benign. Extremities: Revealed 2+ edema that appears to be rather chronic. Diagnostic Data: His creatinine was 1.94. His hemoglobin is 9.5. His glucose was 154. His EKG kerri wed a paced rhythm. His chest x-ray was negative. Impression And Plan: 1.Coronary artery disease, status post coronary artery bypass graft. No reports of chest pain. He is stable. He is on appropriate therapy. He follows up with Dr. Sean Rhodes and Dr. Ochoa in [place] for his coronary artery disease and congestive heart failure. He had very severe coronary artery di sease before his bypass. 2.Chronic diastolic congestive heart failure that seems to be stable with ejection fraction 55%. 3.Severe pulmonary hypertension. 4.Status post pacemaker, seems to be functioning appropriately. 5.Atrial fibrillation and sinus rhythm, on amiodarone and Eliquis. 6.Gout. 7.Benign prostatic hypertrophy. 8.Neuropathy. 9.Diabetes. 10.Hypothyroidism. 11.Dyslipidemia, on simvastatin. 12.Hypertension, well controlled. I personally agree with his present regimen. Continue rehab as i s being done. I do not recommend any further cardiac workup at this point. He can follow up with [facility] business education professor after discharge. I will be available for questions if the need arises. CIARA/JOLIE Voice ID: [id number] Report ID: [id number]
--- NOTE | 2021-08-11 19:41 | R.PN ---
PROGRESS NOTES ENCOUNTER DATE AND TIME: 08/11/2021 19:36 (BUCKET TURNER) NAME MARCELA ALCARAZ DATE OF : 1935 DATE OF ADMISSION: 08/01/2021 20:51 (BUCKET TURNER) HYPONATREMIA, UTI, L1 TRANSVERSE PROCESS FX, T11-T12 RIB FXSCHIEF COMPLAINT: Multiple fractures, hyponatremia, debility SUBJECTIVE: Pt denied any depression. Pt denied any Shortness of Breath. WBC 7.2, Hgb 9.2, He is on ferrous sulfate 325 mg bid. Saddle And Harness Maker 1.87, prealbumin 9.1 .Glucose 106 to 167. Calcium 7.7, Na 131. Left elbow shows a decreased amount of swelling adjacent to the olecranon. Chest x-ray shows chronic interstitial pattern. His KUB is negative. Therapeutic exercises while seated done with supervision. VITAL SIGNS Temperature: 97.9 F SBP/DBP: 153/70 Pulse: 77 Resp: 16 MEDICATION ALLERGIES: No Known Drug Allergies (NKDA) ENVIRONMENTAL ALLERGIES: - Substance Allergies None Known - Other Allergies None Known NURSING: - Shower allowing shower ACTIVITIES OOB only with supervision THERAPIES: - Dietary and Nutrition Adequate Nutrition. Nutritional Education. Nutritional Supplements. - Occupational Therapy Cognitive Retraining. Evaluate and Treat. Transfer Training. ADL Training. Adaptive Equipment. UE Str engthening. Household Tasks. Patient/Family Education. Safety Awareness. Visual Perceptual Training. UE ROM. - Speech Therapy Cognitive Training. Expressive Language Skills. Memory Strategies. Receptive Language Skills. Speech Intelligibility Training. - Physical Therapy Evaluate and Treat. LE Strengthening. Balance Training. Gait Training. Transfer Training. Mobility Tr aining. Safety Awareness. Patient/Family Education. PHYSICAL EXAM - Gen Alert and awake Lying in bed No apparent distress Oriented to: person, time, and place - Skin No breakdown No abnormalities - Eyes No abnormalities - ENMT No abnormalities - CVS RRR - Chest No abnormalities - Resp Course lungs bilaterally - Abd Soft - GI Non distended Deferred - No abnormalities - Ext Right shoulder pain and decreased range of motion. - MSK 4+/5 weakness in right upper extremity. - Neuro 4/5 strength right upper extremity. - Psych No abnormalities ASSESSMENT: Pt. is a 86 yo Right-handed male.On 07/31/2021 he was admitted to [facility] with diagno sis HYPONATREMIA, UTI, L1 TRANSVERSE PROCESS FX, T11-T12 RIB FXS.His impairment category is Medically Complex Conditions 17 - Other Medically Complex Conditions (17.9).Pre-morbidly, Pt. was independent /mod-I in Locomotion, Safety Awareness, Social Cognition, and Balance; and he had good Transfers Cont rol, Sphincter Control, Communication, Self-Care, and Endurance.Currently, he has deficits of Locomot ion, Safety Awareness, Balance, Social Cognition, Transfers Control, Sphincter Control, Communication , Endurance, and Self-Care.Pt. is now referred to [facility] for acute in-cat ent rehabilitation in order to maximize patient's functional independence in activities of daily sp ng, strength, ROM, and mobility.- Rehab Goal Patient has realistic goal of being discharged at assistance level 7-Ind to reside at Home with Fami ly/Relatives. MDM/PLAN: - Physical Therapy Gait dysfunction - to improve, our physical therapists will perform initial evaluation of pt's statu s upon admission and devise an individualized program for Gait Training, and Wheel Chair mobility Inability to transfer - to improve, our physical therapists will perform initial evaluation of pt's status upon admission and devise an individualized program for Bed mobility Need for home safety evaluation - to improve, our physical therapists will perform initial evaluatio n of pt's status upon admission and devise an individualized program for Home Evaluation Need in caregiver upon discharge - to improve, our physical therapists will perform initial evaluati on of pt's status upon admission and devise an individualized program for Caregiver Training New precaution - to improve, our physical therapists will perform initial evaluation of pt's status upon admission and devise an individualized program for Patient precaution education Poor balance - to improve, our physical therapists will perform initial evaluation of pt's status up on admission and devise an individualized program for Balance Training Poor endurance - to improve, our physical therapists will perform initial evaluation of pt's status upon admission and devise an individualized program for Endurance Training Weakness - to improve, our physical therapists will perform initial evaluation of pt's status upon a dmission and devise an individualized program for Aquatic Therapy, Neuromuscular Reeducation, and Str engthening Achieving independence - to improve, our physical therapists will perform initial evaluation of pt's status upon admission and devise an individualized program for Community Reintegration Activities - Occupational Therapy ADL deficits - to improve, our occupation therapists will perform initial evaluation of pt's status upon admission and devise an individualized program for Bathing, Bed mobility, Community Reintegratio n, Cooking, Dressing, Eating, Fine Motor Skills, Grooming, Homemaking, Kitchen Mobility, Laundry, Pat ient Education, Safety Awareness, Splinting - Positioning, Transfers(Toilet, Tub, Shower), and Wheel Chair Management Cognitive deficits - to improve, our occupation therapists will perform initial evaluation of pt's s tatus upon admission and devise an individualized program for Cognition - orientation Need for healthcare customer service - to improve, our occupation therapists will perform initial evaluation of pt's status upon admission and devise an individualized program for Caregiver Training Weakness - to improve, our occupation therapists will perform initial evaluation of pt's status upon admission and devise an individualized program for Aquatic Therapy, Balance, Endurance, UE ROM, and UE strengthening - Other See attached MAR (Medication Administration Record) - Diet Type Continue Regular - Diet - Liquid Texture Continue Regular - Tube Feed Continue N/A - Diet - Solid Texture Continue Regular - Shower allowing shower FUNCTIONAL STATUS: UPDATED AT WEEKLY TEAM CONFERENCE - Bladder Same accident frequency: 7-Ind - No accidents in the past 7 days - Bowel Same accident frequency: 7-Ind - No accidents in the past 7 days - Walking Same score based on distance walked: 0(N/A) - Wheelchair Same score based on distance traveled: 0(N/A) FUNCTIONAL STATUS: - Self-Care A. Eating Rajat B. Grooming sup C. Bathing Navid D. Dressing - Upper sup E. Dressing - Lower Navid F. Toileting Navid - Sphincter Control G. Bladder control sup H. Bowel control sup - Transfers Control I. Bed/Chair/Wheelchair Navid J. Toilet Navid K. Tub/Shower Navid - Locomotion L. Walk/Wheelchair (B) Navid M. Stairs maxA - Communication N. Comprehension (B) Rajat O. Expression (B) sup - Social Cognition P. Social Interaction Rajat Q. Problem Solving sup R. Memory Rajat - Endurance Fair - Balance Fair - Safety Awareness Fair QI SCORES: - Self-Care A. Eating 03-Partial/moderate assistance B. Oral hygiene 03-Partial/moderate assistance C. Toileting hygiene 02-Substantial/maximal assistance E. Shower/bathe self 02-Substantial/maximal assistance F. Upper body dressing 02-Substantial/maximal assistance G. Lower body dressing 02-Substantial/maximal assistance H. Putting on/taking off footwear 88-Not attempted due to medical condition or safety concerns - Mobility A. Roll left and right 03-Partial/moderate assistance B. Sit to lying 03-Partial/moderate assistance C. Lying to sitting on side of bed 03-Partial/moderate assistance D. Sit to stand 02-Substantial/maximal assistance E. Chair/esh-bv-nzfks transfer 02-Substantial/maximal assistance F. Toilet transfer 02-Substantial/maximal assistance G. Car transfer 88-Not attempted due to medical condition or safety concerns I. Walk 10 feet 88-Not attempted due to medical condition or safety concerns J. Walk 50 feet with two turns 88-Not attempted due to medical condition or safety concerns K. Walk 150 feet 88-Not attempted due to medical condition or safety concerns L. Walking 10 feet on uneven surfaces 88-Not attempted due to medical condition or safety concerns M. 1 step (curb) 88-Not attempted due to medical condition or safety concerns N. 4 steps 88-Not attempted due to medical condition or safety concerns O. 12 steps 88-Not attempted due to medical condition or safety concerns P. Picking up object 88-Not attempted due to medical condition or safety concerns R. Wheel 50 feet with two turns 88-Not attempted due to medical condition or safety concerns S. Wheel 150 feet 88-Not attempted due to medical condition or safety concerns - Bladder and Bowel Bladder continence Bowel continence - Endurance Fair - Balance Fair - Safety Awareness Fair [facility] DEFICITS: Self-Care, Mobility, Endurance, Balance, and Safety Awareness SIGNATURE PANEL: (BUCKET TURNER)
[2021-08-11] MEDS: DONEPEZIL HCL 5 MG TAB PO SCH (20:21)
[2021-08-11] MEDS: VITAMIN D 1000 UNIT TAB PO SCH (20:21)
[2021-08-11] MEDS: ATORVASTATIN 10 MG TAB PO SCH (20:21)
[2021-08-11] MEDS: DULOXETINE 20 MG CAP PO SCH (20:21)
[2021-08-12] MEDS: METOPROLOL TAR 25 MG TAB PO SCH ×2 (05:03→17:03)
[2021-08-12] MEDS: PANTOPRAZOLE 40MG TABLET PO SCH (05:04)
[2021-08-12] MEDS: LEVOTHYROXINE SOD 0.125 MG TAB PO SCH (06:38)
[2021-08-12 06:39] LABS: Absolute Lymphocytes (CBC) 1.8 K/uL (0.7-4.9); Hematocrit 30.6 % (39.6-49.0); Lymphocytes % 10.8 % (15.3-44.8); MPV 7.6 fL (7.6-11.3); RBC Red Blood Cell Count 3.51 M/uL (4.33-5.43)
[2021-08-12 06:55] LABS: Potassium 4.9 mmol/L (3.5-5.1)
[2021-08-12] MEDS: INSULIN -REGULAR HUMAN 50 UNIT/0.5 ML ML SQ SCH ×4 (07:17→19:51)
[2021-08-12] MEDS: allopurinoL 100 MG TAB PO SCH ×2 (07:45→19:50)
[2021-08-12] MEDS: TAMSULOSIN 0.4 MG SR CAP PO SCH (07:45)
[2021-08-12] MEDS: APIXABAN 5 MG TABLET PO SCH ×2 (07:46→19:51)
[2021-08-12] MEDS: FERROUS SULFATE 325 MG TAB PO SCH ×2 (07:46→19:51)
[2021-08-12] MEDS: GABAPENTIN 300 MG CAP PO SCH ×2 (07:46→19:51)
[2021-08-12] MEDS: AMIODARONE HCL 200 MG TAB PO SCH (07:46)
[2021-08-12] MEDS: SPIRONOLACTONE 25 MG TABLET PO SCH (07:46)
[2021-08-12] MEDS: icosapent ethyL 1 GM CAP PO SCH ×2 (07:46→19:50)
[2021-08-12] MEDS: FINASTERIDE 5 MG TAB PO SCH (07:46)
[2021-08-12] MEDS: JARDIANCE 10 MG PO SCH (07:47)
[2021-08-12] MEDS: LIDOCAINE 4% PATCH TOP SCH (07:47)
[2021-08-12] MEDS: JUVEN PACKET PO SCH ×2 (07:47→19:51)
[2021-08-12] MEDS: NYSTATIN PWDR 100000 UNIT/GM TOP SCH ×2 (07:47→19:51)
[2021-08-12] MEDS: TRESIBA 40 UNIT SQ SCH (07:47)
[2021-08-12 11:15] LABS: Urine Appearance TURBID (Clear); Urine Bilirubin NEGATIVE (Negative); Urine Blood 3+ (Negative); Urine Color YELLOW (Yellow); Urine Glucose 3+ (Negative); Urine Protein 1+ (Negative); Urine Urobilinogen 0.2 mg/dL (0.2-1.0)
[2021-08-12 11:17] LABS: Urine Microscopic Reflex ORDER UMIC
--- NOTE | 2021-08-12 11:18 | RAD REPORT ---
EXAM DESCRIPTION: RAD - Chest Single View - 08/12/2021 10:23 am CLINICAL HISTORY: increased wbc Chest pain. COMPARISON: Chest Single View dated 08/08/2021; Abdomen 1 View (KUB) dated 08/08/2021; Chest Single View dated 08/05/2021; Chest Single View dated 07/31/2021 FINDINGS: Portable technique limits examination quality. Mild bilateral interstitial lung opacities are present likely representing viral infection or pulmona ry edema. The heart is mildly prominent with multilead pacer/defibrillator device present. Sternotomy wires are noted.
[2021-08-12 11:40] LABS: Urine Bacteria LOADED /HPF (NONE SEEN); Urine RBC >50 /HPF (NONE SEEN)
[2021-08-12] MEDS: ACETAMINOPHEN 500 MG TAB PO PRN (12:17)
[2021-08-12] MEDS: MAGNES/ALUMIN/SIMET 30ML UCUP PO PRN ×2 (12:18→17:39)
[2021-08-12] MEDS: CIPROFLOXACIN HCL 500 MG TAB PO SCH ×2 (12:42→19:51)
[2021-08-12] MEDS: CRANBERRY FRUIT EXTRACT 400 MG CAP PO SCH ×2 (12:45→19:50)
[2021-08-12] MEDS: ATORVASTATIN 10 MG TAB PO SCH (19:50)
[2021-08-12] MEDS: VITAMIN D 1000 UNIT TAB PO SCH (19:50)
[2021-08-12] MEDS: DULOXETINE 20 MG CAP PO SCH (19:50)
[2021-08-12] MEDS: DONEPEZIL HCL 5 MG TAB PO SCH (19:51)
[2021-08-12] MEDS ORDERED: CRANBERRY FRUIT EXTRACT 400 MG CAP PO SCH (20:00)
[2021-08-13] MEDS: LEVOTHYROXINE SOD 0.125 MG TAB PO SCH (05:00)
[2021-08-13] MEDS: PANTOPRAZOLE 40MG TABLET PO SCH (05:01)
[2021-08-13] MEDS: METOPROLOL TAR 25 MG TAB PO SCH ×2 (05:01→17:23)
[2021-08-13 05:53] LABS: Absolute Lymphocytes (CBC) 1.3 K/uL (0.7-4.9); Hematocrit 30.9 % (39.6-49.0); Lymphocytes % 17.3 % (15.3-44.8); MPV 7.4 fL (7.6-11.3); RBC Red Blood Cell Count 3.53 M/uL (4.33-5.43)
[2021-08-13 06:10] LABS: Potassium 4.8 mmol/L (3.5-5.1)
[2021-08-13] MEDS: INSULIN -REGULAR HUMAN 50 UNIT/0.5 ML ML SQ SCH ×4 (07:22→20:14)
[2021-08-13] MEDS: NYSTATIN PWDR 100000 UNIT/GM TOP SCH ×2 (08:00→19:42)
[2021-08-13] MEDS: ACETAMINOPHEN 500 MG TAB PO PRN (09:16)
[2021-08-13] MEDS: SPIRONOLACTONE 25 MG TABLET PO SCH (09:17)
[2021-08-13] MEDS: APIXABAN 5 MG TABLET PO SCH ×2 (09:18→19:43)
[2021-08-13] MEDS: FERROUS SULFATE 325 MG TAB PO SCH ×2 (09:18→19:44)
[2021-08-13] MEDS: GABAPENTIN 300 MG CAP PO SCH ×2 (09:18→19:43)
[2021-08-13] MEDS: CRANBERRY FRUIT EXTRACT 400 MG CAP PO SCH ×2 (09:19→19:43)
[2021-08-13] MEDS: FINASTERIDE 5 MG TAB PO SCH (09:19)
[2021-08-13] MEDS: TAMSULOSIN 0.4 MG SR CAP PO SCH (09:19)
[2021-08-13] MEDS: allopurinoL 100 MG TAB PO SCH ×2 (09:20→19:43)
[2021-08-13] MEDS: AMIODARONE HCL 200 MG TAB PO SCH (09:21)
[2021-08-13] MEDS: LIDOCAINE 4% PATCH TOP SCH (09:21)
[2021-08-13] MEDS: CIPROFLOXACIN HCL 500 MG TAB PO SCH ×2 (09:21→19:43)
[2021-08-13] MEDS: JARDIANCE 10 MG PO SCH (09:22)
[2021-08-13] MEDS: icosapent ethyL 1 GM CAP PO SCH ×2 (09:23→19:49)
[2021-08-13] MEDS: MAGNES/ALUMIN/SIMET 30ML UCUP PO PRN ×2 (09:39→19:38)
[2021-08-13] MEDS: JUVEN PACKET PO SCH ×2 (10:38→20:00)
[2021-08-13] MEDS: TRESIBA 40 UNIT SQ SCH (10:39)
--- NOTE | 2021-08-13 11:38 | EKG ---
Test Date: 2021-08-08 Test Time: 14:35:04 Respiratory Physician: MAYRA MEASUREMENT RESULTS: Intervals: Rate: 70 SD: 160 QRSD: 184 QT: 520 QTc: 561 [place]: P: SD: 160 QRS: 265 T: 83 INTERPRETIVE STATEMENTS: AV sequential or dual chamber electronic pacemaker Compared to ECG 07/31/2021 11:56:23 Ventricular-paced complex(es) or rhythm no longer present Electronically Signed On 08-13-21 11:31:05 RESIDENTIAL AIR SEALING TECHNICIAN by Ori Rojo
[2021-08-13] MEDS: ONDANSETRON 4 MG (ODT) TAB PO PRN (11:47)
--- NOTE | 2021-08-13 17:21 | R.PN ---
PROGRESS NOTES ENCOUNTER DATE AND TIME: 08/13/2021 17:13 (SHOE STITCHER) NAME MARCELA ALCARAZ DATE OF : 1935 DATE OF ADMISSION: 08/01/2021 20:51 (SHOE STITCHER) HYPONATREMIA, UTI, L1 TRANSVERSE PROCESS FX, T11-T12 RIB FXSCHIEF COMPLAINT: Multiple fractures, hyponatremia, debility SUBJECTIVE: Pt denied any depression. Pt denied any Shortness of Breath. WBC 7.6, Hgb 9.7, He is on ferrous sulfate 325 mg bid. Pecan Cleaner 1.87, prealbumin 9.1 .Glucose 131 to 162. Calcium 8.0, Na 131. Left elbow shows a decreased amount of swelling adjacent to the olecranon. Chest x-ray shows chronic interstitial pattern. His KUB is negative. He is refusing to participate with all therapy reporting pain all over, although his outward appearan ce is not in line his complaint. VITAL SIGNS Temperature: 97.0 F SBP/DBP: 140/66 Pulse: 70 Resp: 16 MEDICATION ALLERGIES: No Known Drug Allergies (NKDA) ENVIRONMENTAL ALLERGIES: - Substance Allergies None Known - Other Allergies None Known NURSING: - Shower allowing shower ACTIVITIES OOB only with supervision THERAPIES: - Dietary and Nutrition Adequate Nutrition. Nutritional Education. Nutritional Supplements. - Occupational Therapy Cognitive Retraining. Evaluate and Treat. Transfer Training. ADL Training. Adaptive Equipment. UE Str engthening. Household Tasks. Patient/Family Education. Safety Awareness. Visual Perceptual Training. UE ROM. - Speech Therapy Cognitive Training. Expressive Language Skills. Memory Strategies. Receptive Language Skills. Speech Intelligibility Training. - Physical Therapy Evaluate and Treat. LE Strengthening. Balance Training. Gait Training. Transfer Training. Mobility Tr aining. Safety Awareness. Patient/Family Education. PHYSICAL EXAM - Gen Alert and awake Lying in bed No apparent distress Oriented to: person, time, and place - Skin No breakdown No abnormalities - Eyes No abnormalities - ENMT No abnormalities - CVS RRR - Chest No abnormalities - Resp Course lungs bilaterally - Abd Soft - GI Non distended Deferred - No abnormalities - Ext Right shoulder pain and decreased range of motion. - MSK 4+/5 weakness in right upper extremity. - Neuro 4/5 strength right upper extremity. - Psych No abnormalities ASSESSMENT: Pt. is a 86 yo Right-handed male.On 07/31/2021 he was admitted to [facility] with diagno sis HYPONATREMIA, UTI, L1 TRANSVERSE PROCESS FX, T11-T12 RIB FXS.His impairment category is Medically Complex Conditions 17 - Other Medically Complex Conditions (17.9).Pre-morbidly, Pt. was independent /mod-I in Locomotion, Safety Awareness, Social Cognition, and Balance; and he had good Transfers Cont rol, Sphincter Control, Communication, Self-Care, and Endurance.Currently, he has deficits of Locomot ion, Safety Awareness, Balance, Social Cognition, Transfers Control, Sphincter Control, Communication , Endurance, and Self-Care.Pt. is now referred to [facility] for acute in-cat ent rehabilitation in order to maximize patient's functional independence in activities of daily sp ng, strength, ROM, and mobility.- Rehab Goal Patient has realistic goal of being discharged at assistance level 7-Ind to reside at Home with Fami ly/Relatives. MDM/PLAN: - Physical Therapy Gait dysfunction - to improve, our physical therapists will perform initial evaluation of pt's statu s upon admission and devise an individualized program for Gait Training, and Wheel Chair mobility Inability to transfer - to improve, our physical therapists will perform initial evaluation of pt's status upon admission and devise an individualized program for Bed mobility Need for home safety evaluation - to improve, our physical therapists will perform initial evaluatio n of pt's status upon admission and devise an individualized program for Home Evaluation Need in caregiver upon discharge - to improve, our physical therapists will perform initial evaluati on of pt's status upon admission and devise an individualized program for Caregiver Training New precaution - to improve, our physical therapists will perform initial evaluation of pt's status upon admission and devise an individualized program for Patient precaution education Poor balance - to improve, our physical therapists will perform initial evaluation of pt's status up on admission and devise an individualized program for Balance Training Poor endurance - to improve, our physical therapists will perform initial evaluation of pt's status upon admission and devise an individualized program for Endurance Training Weakness - to improve, our physical therapists will perform initial evaluation of pt's status upon a dmission and devise an individualized program for Aquatic Therapy, Neuromuscular Reeducation, and Str engthening Achieving independence - to improve, our physical therapists will perform initial evaluation of pt's status upon admission and devise an individualized program for Community Reintegration Activities - Occupational Therapy ADL deficits - to improve, our occupation therapists will perform initial evaluation of pt's status upon admission and devise an individualized program for Bathing, Bed mobility, Community Reintegratio n, Cooking, Dressing, Eating, Fine Motor Skills, Grooming, Homemaking, Kitchen Mobility, Laundry, Pat ient Education, Safety Awareness, Splinting - Positioning, Transfers(Toilet, Tub, Shower), and Wheel Chair Management Cognitive deficits - to improve, our occupation therapists will perform initial evaluation of pt's s tatus upon admission and devise an individualized program for Cognition - orientation Need for medicare sales representative - to improve, our occupation therapists will perform initial evaluation of pt's status upon admission and devise an individualized program for Caregiver Training Weakness - to improve, our occupation therapists will perform initial evaluation of pt's status upon admission and devise an individualized program for Aquatic Therapy, Balance, Endurance, UE ROM, and UE strengthening - Other See attached MAR (Medication Administration Record) - Diet Type Continue Regular - Diet - Liquid Texture Continue Regular - Tube Feed Continue N/A - Diet - Solid Texture Continue Regular - Shower allowing shower FUNCTIONAL STATUS: UPDATED AT WEEKLY TEAM CONFERENCE - Bladder Same accident frequency: 7-Ind - No accidents in the past 7 days - Bowel Same accident frequency: 7-Ind - No accidents in the past 7 days - Walking Same score based on distance walked: 0(N/A) - Wheelchair Same score based on distance traveled: 0(N/A) FUNCTIONAL STATUS: - Self-Care A. Eating Rajat B. Grooming sup C. Bathing Navid D. Dressing - Upper sup E. Dressing - Lower Navid F. Toileting Navid - Sphincter Control G. Bladder control sup H. Bowel control sup - Transfers Control I. Bed/Chair/Wheelchair Navid J. Toilet Navid K. Tub/Shower Navid - Locomotion L. Walk/Wheelchair (B) Navid M. Stairs maxA - Communication N. Comprehension (B) Rajat O. Expression (B) sup - Social Cognition P. Social Interaction Rajat Q. Problem Solving sup R. Memory Rajat - Endurance Fair - Balance Fair - Safety Awareness Fair QI SCORES: - Self-Care A. Eating 03-Partial/moderate assistance B. Oral hygiene 03-Partial/moderate assistance C. Toileting hygiene 02-Substantial/maximal assistance E. Shower/bathe self 02-Substantial/maximal assistance F. Upper body dressing 02-Substantial/maximal assistance G. Lower body dressing 02-Substantial/maximal assistance H. Putting on/taking off footwear 88-Not attempted due to medical condition or safety concerns - Mobility A. Roll left and right 03-Partial/moderate assistance B. Sit to lying 03-Partial/moderate assistance C. Lying to sitting on side of bed 03-Partial/moderate assistance D. Sit to stand 02-Substantial/maximal assistance E. Chair/pvv-pv-jpvnm transfer 02-Substantial/maximal assistance F. Toilet transfer 02-Substantial/maximal assistance G. Car transfer 88-Not attempted due to medical condition or safety concerns I. Walk 10 feet 88-Not attempted due to medical condition or safety concerns J. Walk 50 feet with two turns 88-Not attempted due to medical condition or safety concerns K. Walk 150 feet 88-Not attempted due to medical condition or safety concerns L. Walking 10 feet on uneven surfaces 88-Not attempted due to medical condition or safety concerns M. 1 step (curb) 88-Not attempted due to medical condition or safety concerns N. 4 steps 88-Not attempted due to medical condition or safety concerns O. 12 steps 88-Not attempted due to medical condition or safety concerns P. Picking up object 88-Not attempted due to medical condition or safety concerns R. Wheel 50 feet with two turns 88-Not attempted due to medical condition or safety concerns S. Wheel 150 feet 88-Not attempted due to medical condition or safety concerns - Bladder and Bowel Bladder continence Bowel continence - Endurance Fair - Balance Fair - Safety Awareness Fair CURRENT [facility]. DEFICITS: Self-Care, Mobility, Endurance, Balance, and Safety Awareness SIGNATURE PANEL: (SHOE STITCHER)
[2021-08-13] MEDS: VITAMIN D 1000 UNIT TAB PO SCH (20:14)
[2021-08-13] MEDS: ATORVASTATIN 10 MG TAB PO SCH (20:14)
[2021-08-13] MEDS: DULOXETINE 20 MG CAP PO SCH (20:14)
[2021-08-13] MEDS: DONEPEZIL HCL 5 MG TAB PO SCH (20:14)
[2021-08-14 04:52] LABS: Absolute Lymphocytes (CBC) 1.5 K/uL (0.7-4.9); Hematocrit 29.7 % (39.6-49.0); Lymphocytes % 21.7 % (15.3-44.8); MPV 7.5 fL (7.6-11.3)
[2021-08-14] MEDS: LEVOTHYROXINE SOD 0.125 MG TAB PO SCH (05:12)
[2021-08-14] MEDS: METOPROLOL TAR 25 MG TAB PO SCH ×2 (05:12→17:18)
[2021-08-14 05:16] LABS: Potassium 5.2 mmol/L (3.5-5.1)
[2021-08-14] MEDS: PANTOPRAZOLE 40MG TABLET PO SCH ×2 (06:30→08:50)
[2021-08-14] MEDS: INSULIN -REGULAR HUMAN 50 UNIT/0.5 ML ML SQ SCH ×4 (07:30→20:15)
[2021-08-14] MEDS: NYSTATIN PWDR 100000 UNIT/GM TOP SCH ×2 (08:00→20:00)
[2021-08-14] MEDS: LIDOCAINE 4% PATCH TOP SCH (08:47)
[2021-08-14] MEDS: JARDIANCE 10 MG PO SCH (08:48)
[2021-08-14] MEDS: FINASTERIDE 5 MG TAB PO SCH (08:49)
[2021-08-14] MEDS: APIXABAN 5 MG TABLET PO SCH ×2 (08:49→19:59)
[2021-08-14] MEDS: TAMSULOSIN 0.4 MG SR CAP PO SCH (08:49)
[2021-08-14] MEDS: CRANBERRY FRUIT EXTRACT 400 MG CAP PO SCH ×2 (08:49→19:59)
[2021-08-14] MEDS: allopurinoL 100 MG TAB PO SCH ×2 (08:50→19:59)
[2021-08-14] MEDS: FERROUS SULFATE 325 MG TAB PO SCH ×2 (08:50→19:59)
[2021-08-14] MEDS: AMIODARONE HCL 200 MG TAB PO SCH (08:50)
[2021-08-14] MEDS: CIPROFLOXACIN HCL 500 MG TAB PO SCH (08:51)
[2021-08-14] MEDS: GABAPENTIN 300 MG CAP PO SCH ×2 (08:51→19:58)
[2021-08-14] MEDS: SPIRONOLACTONE 25 MG TABLET PO SCH (08:51)
[2021-08-14] MEDS: ACETAMINOPHEN 500 MG TAB PO PRN ×2 (08:52→12:27)
[2021-08-14] MEDS: icosapent ethyL 1 GM CAP PO SCH ×2 (08:52→19:58)
[2021-08-14] MEDS: MAGNES/ALUMIN/SIMET 30ML UCUP PO PRN (08:53)
[2021-08-14] MEDS: TRESIBA 40 UNIT SQ SCH (08:53)
[2021-08-14] MEDS: JUVEN PACKET PO SCH ×2 (08:54→20:00)
--- NOTE | 2021-08-14 11:45 | RAD REPORT ---
EXAM DESCRIPTION: RAD - Abdomen 1 View (KUB) - 08/14/2021 11:26 am CLINICAL HISTORY: Abdomen pain. FINDINGS: The bowel gas pattern is unremarkable. Calcifications of pelvis presumably phleboliths. Radiopaque battery pack overlies left iliac crest
[2021-08-14] MEDS: ONDANSETRON 4 MG (ODT) TAB PO PRN (12:27)
[2021-08-14 12:55] LABS: C.diff Antigen/Toxin Ag pos : Tox pos (NEG : NEG)
[2021-08-14] MEDS: VANCOMYCIN ORAL SOLN 250 MG/5 ML OSYR PO SCH ×3 (13:45→23:32)
[2021-08-14] MEDS: SIMETHICONE 80 MG TAB PO PRN ×2 (17:25→23:12)
[2021-08-14] MEDS ORDERED: NA CHLORIDE 0.9% 250 ML ONE (19:54)
[2021-08-14] MEDS: Meropenem 1,000 MG in NA CHLORIDE 0.9% 100 ML IV SCH (19:59)
[2021-08-14] MEDS: VITAMIN D 1000 UNIT TAB PO SCH (19:59)
[2021-08-14] MEDS: ATORVASTATIN 10 MG TAB PO SCH (19:59)
[2021-08-14] MEDS: DULOXETINE 20 MG CAP PO SCH (19:59)
[2021-08-14] MEDS: DONEPEZIL HCL 5 MG TAB PO SCH (19:59)
[2021-08-14] MEDS: MELATONIN 3 MG TABLET PO PRN (20:17)
[2021-08-15 05:54] LABS: Potassium 5.1 mmol/L (3.5-5.1)
[2021-08-15] MEDS: METOPROLOL TAR 25 MG TAB PO SCH ×2 (06:00→17:33)
[2021-08-15] MEDS: LEVOTHYROXINE SOD 0.125 MG TAB PO SCH (06:00)
[2021-08-15] MEDS: VANCOMYCIN ORAL SOLN 250 MG/5 ML OSYR PO SCH ×3 (06:00→17:25)
[2021-08-15] MEDS: INSULIN -REGULAR HUMAN 50 UNIT/0.5 ML ML SQ SCH ×4 (07:30→20:51)
[2021-08-15] MEDS: Meropenem 1,000 MG in NA CHLORIDE 0.9% 100 ML IV SCH ×2 (08:00→20:49)
[2021-08-15] MEDS: JARDIANCE 10 MG PO SCH (09:03)
[2021-08-15] MEDS: LIDOCAINE 4% PATCH TOP SCH (09:04)
[2021-08-15] MEDS: CRANBERRY FRUIT EXTRACT 400 MG CAP PO SCH ×2 (09:05→20:48)
[2021-08-15] MEDS: TRESIBA 40 UNIT SQ SCH (09:05)
[2021-08-15] MEDS: TAMSULOSIN 0.4 MG SR CAP PO SCH (09:06)
[2021-08-15] MEDS: APIXABAN 5 MG TABLET PO SCH ×2 (09:06→20:48)
[2021-08-15] MEDS: GABAPENTIN 300 MG CAP PO SCH ×2 (09:06→20:48)
[2021-08-15] MEDS: icosapent ethyL 1 GM CAP PO SCH ×2 (09:06→20:50)
[2021-08-15] MEDS: FINASTERIDE 5 MG TAB PO SCH (09:06)
[2021-08-15] MEDS: FERROUS SULFATE 325 MG TAB PO SCH ×2 (09:06→20:48)
[2021-08-15] MEDS: allopurinoL 100 MG TAB PO SCH ×2 (09:07→20:48)
[2021-08-15] MEDS: ACETAMINOPHEN 500 MG TAB PO PRN (09:07)
[2021-08-15] MEDS: PANTOPRAZOLE 40MG TABLET PO SCH (09:07)
[2021-08-15] MEDS: AMIODARONE HCL 200 MG TAB PO SCH (09:08)
[2021-08-15] MEDS: SPIRONOLACTONE 25 MG TABLET PO SCH (09:12)
[2021-08-15] MEDS: JUVEN PACKET PO SCH ×2 (09:22→20:48)
[2021-08-15 09:42] LABS: Absolute Lymphocytes (CBC) 1.4 K/uL (0.7-4.9); Hematocrit 32.4 % (39.6-49.0); Lymphocytes % 21.4 % (15.3-44.8); RBC Red Blood Cell Count 3.69 M/uL (4.33-5.43)
[2021-08-15] MEDS: NYSTATIN PWDR 100000 UNIT/GM TOP SCH ×2 (10:30→20:50)
[2021-08-15] MEDS: SIMETHICONE 80 MG TAB PO PRN (14:56)
--- NOTE | 2021-08-15 17:24 | R.PN ---
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 Pt denied any Shortness of Breath. C. diff positive on 08/14/21. WBC 6.7 Hgb 10.3, which improved from 9.4 yesterday. He is on ferrous sul fate 325 mg bid. Cafeteria Assistant 1.87, prealbumin 9.1 .Glucose 103 to 141. Calcium 7.6, Na 132. Left elbow shows a decreased amount of swelling adjacent to the olecranon. Chest x-ray shows chronic interstitial pattern. His KUB on 08/14/21 is negative. Again, he is refusing to participate with all therapy reporting pain all over, although his outward a ppearance is not in line with his complaint. VITAL SIGNS Temperature: 97.0 F SBP/DBP: 107/52 Pulse: 69 Resp: 16 MEDICATION ALLERGIES: No Known Drug Allergies (NKDA) ENVIRONMENTAL ALLERGIES: - Substance Allergies None Known - Other Allergies None Known NURSING: - Shower allowing shower ACTIVITIES OOB only with supervision THERAPIES: - Dietary and Nutrition Adequate Nutrition. Nutritional Education. Nutritional Supplements. - Occupational Therapy Cognitive Retraining. Evaluate and Treat. Transfer Training. ADL Training. Adaptive Equipment. UE Str engthening. Household Tasks. Patient/Family Education. Safety Awareness. Visual Perceptual Training. UE ROM. - Speech Therapy Cognitive Training. Expressive Language Skills. Memory Strategies. Receptive Language Skills. Speech Intelligibility Training. - Physical Therapy Evaluate and Treat. LE Strengthening. Balance Training. Gait Training. Transfer Training. Mobility Tr aining. Safety Awareness. Patient/Family Education. PHYSICAL EXAM - Gen Alert and awake Lying in bed No apparent distress Oriented to: person, time, and place - Skin No breakdown No abnormalities - Eyes No abnormalities - ENMT No abnormalities - CVS RRR - Chest No abnormalities - Resp Course lungs bilaterally - Abd Soft - GI Non distended Deferred - No abnormalities - Ext Right shoulder pain and decreased range of motion. - MSK 4+/5 weakness in right upper extremity. - Neuro 4/5 strength right upper extremity. - Psych No abnormalities ASSESSMENT: Pt. is a 86 yo Right-handed male.On 07/31/2021 he was admitted to [facility] with diagno sis HYPONATREMIA, UTI, L1 TRANSVERSE PROCESS FX, T11-T12 RIB FXS.His impairment category is Medically Complex Conditions 17 - Other Medically Complex Conditions (17.9).Pre-morbidly, Pt. was independent /mod-I in Locomotion, Safety Awareness, Social Cognition, and Balance; and he had good Transfers Cont rol, Sphincter Control, Communication, Self-Care, and Endurance.Currently, he has deficits of Locomot ion, Safety Awareness, Balance, Social Cognition, Transfers Control, Sphincter Control, Communication , Endurance, and Self-Care.Pt. is now referred to [facility] for acute in-cat ent rehabilitation in order to maximize patient's functional independence in activities of daily sp ng, strength, ROM, and mobility.- Rehab Goal Patient has realistic goal of being discharged at assistance level 7-Ind to reside at Home with Fami ly/Relatives. MDM/PLAN: - Physical Therapy Gait dysfunction - to improve, our physical therapists will perform initial evaluation of pt's statu s upon admission and devise an individualized program for Gait Training, and Wheel Chair mobility Inability to transfer - to improve, our physical therapists will perform initial evaluation of pt's status upon admission and devise an individualized program for Bed mobility Need for home safety evaluation - to improve, our physical therapists will perform initial evaluatio n of pt's status upon admission and devise an individualized program for Home Evaluation Need in caregiver upon discharge - to improve, our physical therapists will perform initial evaluati on of pt's status upon admission and devise an individualized program for Caregiver Training New precaution - to improve, our physical therapists will perform initial evaluation of pt's status upon admission and devise an individualized program for Patient precaution education Poor balance - to improve, our physical therapists will perform initial evaluation of pt's status up on admission and devise an individualized program for Balance Training Poor endurance - to improve, our physical therapists will perform initial evaluation of pt's status upon admission and devise an individualized program for Endurance Training Weakness - to improve, our physical therapists will perform initial evaluation of pt's status upon a dmission and devise an individualized program for Aquatic Therapy, Neuromuscular Reeducation, and Str engthening Achieving independence - to improve, our physical therapists will perform initial evaluation of pt's status upon admission and devise an individualized program for Community Reintegration Activities - Occupational Therapy ADL deficits - to improve, our occupation therapists will perform initial evaluation of pt's status upon admission and devise an individualized program for Bathing, Bed mobility, Community Reintegratio n, Cooking, Dressing, Eating, Fine Motor Skills, Grooming, Homemaking, Kitchen Mobility, Laundry, Pat ient Education, Safety Awareness, Splinting - Positioning, Transfers(Toilet, Tub, Shower), and Wheel Chair Management Cognitive deficits - to improve, our occupation therapists will perform initial evaluation of pt's s tatus upon admission and devise an individualized program for Cognition - orientation Need for care transition manager - to improve, our occupation therapists will perform initial evaluation of pt's status upon admission and devise an individualized program for Caregiver Training Weakness - to improve, our occupation therapists will perform initial evaluation of pt's status upon admission and devise an individualized program for Aquatic Therapy, Balance, Endurance, UE ROM, and UE strengthening - Other See attached MAR (Medication Administration Record) - Diet Type Continue Regular - Diet - Liquid Texture Continue Regular - Tube Feed Continue N/A - Diet - Solid Texture Continue Regular - Shower allowing shower FUNCTIONAL STATUS: UPDATED AT WEEKLY TEAM CONFERENCE - Bladder Same accident frequency: 7-Ind - No accidents in the past 7 days - Bowel Same accident frequency: 7-Ind - No accidents in the past 7 days - Walking Same score based on distance walked: 0(N/A) - Wheelchair Same score based on distance traveled: 0(N/A) FUNCTIONAL STATUS: - Self-Care A. Eating Rajat B. Grooming sup C. Bathing Navid D. Dressing - Upper sup E. Dressing - Lower Navid F. Toileting Navid - Sphincter Control G. Bladder control sup H. Bowel control sup - Transfers Control I. Bed/Chair/Wheelchair Navid J. Toilet Navid K. Tub/Shower Navid - Locomotion L. Walk/Wheelchair (B) Navid M. Stairs maxA - Communication N. Comprehension (B) Rajat O. Expression (B) sup - Social Cognition P. Social Interaction Rajat Q. Problem Solving sup R. Memory Rajat - Endurance Fair - Balance Fair - Safety Awareness Fair QI SCORES: - Self-Care A. Eating 03-Partial/moderate assistance B. Oral hygiene 03-Partial/moderate assistance C. Toileting hygiene 02-Substantial/maximal assistance E. Shower/bathe self 02-Substantial/maximal assistance F. Upper body dressing 02-Substantial/maximal assistance G. Lower body dressing 02-Substantial/maximal assistance H. Putting on/taking off footwear 88-Not attempted due to medical condition or safety concerns - Mobility A. Roll left and right 03-Partial/moderate assistance B. Sit to lying 03-Partial/moderate assistance C. Lying to sitting on side of bed 03-Partial/moderate assistance D. Sit to stand 02-Substantial/maximal assistance E. Chair/kap-je-wezgg transfer 02-Substantial/maximal assistance F. Toilet transfer 02-Substantial/maximal assistance G. Car transfer 88-Not attempted due to medical condition or safety concerns I. Walk 10 feet 88-Not attempted due to medical condition or safety concerns J. Walk 50 feet with two turns 88-Not attempted due to medical condition or safety concerns K. Walk 150 feet 88-Not attempted due to medical condition or safety concerns L. Walking 10 feet on uneven surfaces 88-Not attempted due to medical condition or safety concerns M. 1 step (curb) 88-Not attempted due to medical condition or safety concerns N. 4 steps 88-Not attempted due to medical condition or safety concerns O. 12 steps 88-Not attempted due to medical condition or safety concerns P. Picking up object 88-Not attempted due to medical condition or safety concerns R. Wheel 50 feet with two turns 88-Not attempted due to medical condition or safety concerns S. Wheel 150 feet 88-Not attempted due to medical condition or safety concerns - Bladder and Bowel Bladder continence Bowel continence - Endurance Fair - Balance Fair - Safety Awareness Fair [facility] 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
[2021-08-15] MEDS: MAGNES/ALUMIN/SIMET 30ML UCUP PO PRN (17:37)
[2021-08-15] MEDS: ATORVASTATIN 10 MG TAB PO SCH (20:48)
[2021-08-15] MEDS: VITAMIN D 1000 UNIT TAB PO SCH (20:48)
[2021-08-15] MEDS: DONEPEZIL HCL 5 MG TAB PO SCH (20:48)
[2021-08-15] MEDS: DULOXETINE 20 MG CAP PO SCH (20:48)
[2021-08-15] MEDS: MELATONIN 3 MG TABLET PO PRN (20:53)
[2021-08-16] MEDS: VANCOMYCIN ORAL SOLN 250 MG/5 ML OSYR PO SCH ×5 (00:18→23:49)
[2021-08-16] MEDS: METOPROLOL TAR 25 MG TAB PO SCH ×2 (05:16→17:33)
[2021-08-16 06:49] LABS: Absolute Lymphocytes (CBC) 1.5 K/uL (0.7-4.9); Hematocrit 30.9 % (39.6-49.0); MPV 7.3 fL (7.6-11.3); RBC Red Blood Cell Count 3.57 M/uL (4.33-5.43)
[2021-08-16 06:59] LABS: Albumin 1.8 g/dL (3.4-5.0); Prealbumin 12.5 mg/dL (20-40)
[2021-08-16] MEDS: LEVOTHYROXINE SOD 0.125 MG TAB PO SCH (07:07)
[2021-08-16] MEDS: Meropenem 1,000 MG in NA CHLORIDE 0.9% 100 ML IV SCH ×2 (07:19→20:20)
[2021-08-16] MEDS: PANTOPRAZOLE 40MG TABLET PO SCH (07:19)
[2021-08-16] MEDS: INSULIN -REGULAR HUMAN 50 UNIT/0.5 ML ML SQ SCH ×4 (07:30→20:18)
[2021-08-16 07:37] LABS: Potassium 5.3 mmol/L (3.5-5.1)
[2021-08-16] MEDS: TRESIBA 40 UNIT SQ SCH (08:06)
[2021-08-16] MEDS: JUVEN PACKET PO SCH ×2 (08:09→20:19)
[2021-08-16] MEDS: APIXABAN 5 MG TABLET PO SCH ×2 (09:17→20:17)
[2021-08-16] MEDS: icosapent ethyL 1 GM CAP PO SCH ×2 (09:17→20:20)
[2021-08-16] MEDS: JARDIANCE 10 MG PO SCH (09:17)
[2021-08-16] MEDS: GABAPENTIN 300 MG CAP PO SCH ×2 (09:17→20:17)
[2021-08-16] MEDS: TAMSULOSIN 0.4 MG SR CAP PO SCH (09:18)
[2021-08-16] MEDS: SPIRONOLACTONE 25 MG TABLET PO SCH (09:18)
[2021-08-16] MEDS: CRANBERRY FRUIT EXTRACT 400 MG CAP PO SCH ×2 (09:18→20:17)
[2021-08-16] MEDS: FERROUS SULFATE 325 MG TAB PO SCH ×2 (09:19→20:18)
[2021-08-16] MEDS: FINASTERIDE 5 MG TAB PO SCH (09:19)
[2021-08-16] MEDS: AMIODARONE HCL 200 MG TAB PO SCH (09:19)
[2021-08-16] MEDS: allopurinoL 100 MG TAB PO SCH ×2 (09:19→20:18)
[2021-08-16] MEDS: MAGNES/ALUMIN/SIMET 30ML UCUP PO PRN (09:26)
[2021-08-16] MEDS: LIDOCAINE 4% PATCH TOP SCH (10:39)
[2021-08-16] MEDS: NYSTATIN PWDR 100000 UNIT/GM TOP SCH ×3 (11:25→20:46)
[2021-08-16 15:31] LABS: Magnesium 2.8
--- NOTE | 2021-08-16 18:16 | R.PN ---
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 Pt denied any Shortness of Breath. C. diff positive on 08/14/21. WBC 6.9, Hgb 9.8. He is on ferrous sulfate 325 mg bid. Instrument Maker Apprentice 1.87. .Glucose 102 to 124. Calcium 7.9, Na 134, K 5.3, prealbumin 12.5. Left elbow shows a decreased amount of swelling adjacent to the olecranon. Chest x-ray shows chronic interstitial pattern. His KUB on 08/14/21 is negative. He self-propelled wheelchair 250' with contact guard assistance and verbal ques. Ambulated 55' with c ontact guard assistance using a rolling walker. VITAL SIGNS Temperature: 97.4 F SBP/DBP: 133/61 Pulse: 76 Resp: 16 MEDICATION ALLERGIES: No Known Drug Allergies (NKDA) ENVIRONMENTAL ALLERGIES: - Substance Allergies None Known - Other Allergies None Known NURSING: - Shower allowing shower ACTIVITIES OOB only with supervision THERAPIES: - Dietary and Nutrition Adequate Nutrition. Nutritional Education. Nutritional Supplements. - Occupational Therapy Cognitive Retraining. Evaluate and Treat. Transfer Training. ADL Training. Adaptive Equipment. UE Str engthening. Household Tasks. Patient/Family Education. Safety Awareness. Visual Perceptual Training. UE ROM. - Speech Therapy Cognitive Training. Expressive Language Skills. Memory Strategies. Receptive Language Skills. Speech Intelligibility Training. - Physical Therapy Evaluate and Treat. LE Strengthening. Balance Training. Gait Training. Transfer Training. Mobility Tr aining. Safety Awareness. Patient/Family Education. PHYSICAL EXAM - Gen Alert and awake Lying in bed No apparent distress Oriented to: person, time, and place - Skin No breakdown No abnormalities - Eyes No abnormalities - ENMT No abnormalities - CVS RRR - Chest No abnormalities - Resp Course lungs bilaterally - Abd Soft - GI Non distended Deferred - No abnormalities - Ext Right shoulder pain and decreased range of motion. - MSK 4+/5 weakness in right upper extremity. - Neuro 4/5 strength right upper extremity. - Psych No abnormalities ASSESSMENT: Pt. is a 86 yo Right-handed male.On 07/31/2021 he was admitted to [facility] with diagno sis HYPONATREMIA, UTI, L1 TRANSVERSE PROCESS FX, T11-T12 RIB FXS.His impairment category is Medically Complex Conditions 17 - Other Medically Complex Conditions (17.9).Pre-morbidly, Pt. was independent /mod-I in Locomotion, Safety Awareness, Social Cognition, and Balance; and he had good Transfers Cont rol, Sphincter Control, Communication, Self-Care, and Endurance.Currently, he has deficits of Locomot ion, Safety Awareness, Balance, Social Cognition, Transfers Control, Sphincter Control, Communication , Endurance, and Self-Care.Pt. is now referred to [facility] for acute in-cat ent rehabilitation in order to maximize patient's functional independence in activities of daily sp ng, strength, ROM, and mobility.- Rehab Goal Patient has realistic goal of being discharged at assistance level 7-Ind to reside at Home with Fami ly/Relatives. MDM/PLAN: - Physical Therapy Gait dysfunction - to improve, our physical therapists will perform initial evaluation of pt's statu s upon admission and devise an individualized program for Gait Training, and Wheel Chair mobility Inability to transfer - to improve, our physical therapists will perform initial evaluation of pt's status upon admission and devise an individualized program for Bed mobility Need for home safety evaluation - to improve, our physical therapists will perform initial evaluatio n of pt's status upon admission and devise an individualized program for Home Evaluation Need in caregiver upon discharge - to improve, our physical therapists will perform initial evaluati on of pt's status upon admission and devise an individualized program for Caregiver Training New precaution - to improve, our physical therapists will perform initial evaluation of pt's status upon admission and devise an individualized program for Patient precaution education Poor balance - to improve, our physical therapists will perform initial evaluation of pt's status up on admission and devise an individualized program for Balance Training Poor endurance - to improve, our physical therapists will perform initial evaluation of pt's status upon admission and devise an individualized program for Endurance Training Weakness - to improve, our physical therapists will perform initial evaluation of pt's status upon a dmission and devise an individualized program for Aquatic Therapy, Neuromuscular Reeducation, and Str engthening Achieving independence - to improve, our physical therapists will perform initial evaluation of pt's status upon admission and devise an individualized program for Community Reintegration Activities - Occupational Therapy ADL deficits - to improve, our occupation therapists will perform initial evaluation of pt's status upon admission and devise an individualized program for Bathing, Bed mobility, Community Reintegratio n, Cooking, Dressing, Eating, Fine Motor Skills, Grooming, Homemaking, Kitchen Mobility, Laundry, Pat ient Education, Safety Awareness, Splinting - Positioning, Transfers(Toilet, Tub, Shower), and Wheel Chair Management Cognitive deficits - to improve, our occupation therapists will perform initial evaluation of pt's s tatus upon admission and devise an individualized program for Cognition - orientation Need for respiratory care specialist - to improve, our occupation therapists will perform initial evaluation of pt's status upon admission and devise an individualized program for Caregiver Training Weakness - to improve, our occupation therapists will perform initial evaluation of pt's status upon admission and devise an individualized program for Aquatic Therapy, Balance, Endurance, UE ROM, and UE strengthening - Other See attached MAR (Medication Administration Record) - Diet Type Continue Regular - Diet - Liquid Texture Continue Regular - Tube Feed Continue N/A - Diet - Solid Texture Continue Regular - Shower allowing shower FUNCTIONAL STATUS: UPDATED AT WEEKLY TEAM CONFERENCE - Bladder Same accident frequency: 7-Ind - No accidents in the past 7 days - Bowel Same accident frequency: 7-Ind - No accidents in the past 7 days - Walking Same score based on distance walked: 0(N/A) - Wheelchair Same score based on distance traveled: 0(N/A) FUNCTIONAL STATUS: - Self-Care A. Eating Rajat B. Grooming sup C. Bathing Navid D. Dressing - Upper sup E. Dressing - Lower Navid F. Toileting Navid - Sphincter Control G. Bladder control sup H. Bowel control sup - Transfers Control I. Bed/Chair/Wheelchair Navid J. Toilet Navid K. Tub/Shower Navid - Locomotion L. Walk/Wheelchair (B) Navid M. Stairs maxA - Communication N. Comprehension (B) Rajat O. Expression (B) sup - Social Cognition P. Social Interaction Rajat Q. Problem Solving sup R. Memory Rajat - Endurance Fair - Balance Fair - Safety Awareness Fair QI SCORES: - Self-Care A. Eating 03-Partial/moderate assistance B. Oral hygiene 03-Partial/moderate assistance C. Toileting hygiene 02-Substantial/maximal assistance E. Shower/bathe self 02-Substantial/maximal assistance F. Upper body dressing 02-Substantial/maximal assistance G. Lower body dressing 02-Substantial/maximal assistance H. Putting on/taking off footwear 88-Not attempted due to medical condition or safety concerns - Mobility A. Roll left and right 03-Partial/moderate assistance B. Sit to lying 03-Partial/moderate assistance C. Lying to sitting on side of bed 03-Partial/moderate assistance D. Sit to stand 02-Substantial/maximal assistance E. Chair/[id number] transfer 02-Substantial/maximal assistance F. Toilet transfer 02-Substantial/maximal assistance G. Car transfer 88-Not attempted due to medical condition or safety concerns I. Walk 10 feet 88-Not attempted due to medical condition or safety concerns J. Walk 50 feet with two turns 88-Not attempted due to medical condition or safety concerns K. Walk 150 feet 88-Not attempted due to medical condition or safety concerns L. Walking 10 feet on uneven surfaces 88-Not attempted due to medical condition or safety concerns M. 1 step (curb) 88-Not attempted due to medical condition or safety concerns N. 4 steps 88-Not attempted due to medical condition or safety concerns O. 12 steps 88-Not attempted due to medical condition or safety concerns P. Picking up object 88-Not attempted due to medical condition or safety concerns R. Wheel 50 feet with two turns 88-Not attempted due to medical condition or safety concerns S. Wheel 150 feet 88-Not attempted due to medical condition or safety concerns - Bladder and Bowel Bladder continence Bowel continence - Endurance Fair - Balance Fair - Safety Awareness Fair CURRENT [facility]UNC. 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
[2021-08-16] MEDS: DONEPEZIL HCL 5 MG TAB PO SCH (20:17)
[2021-08-16] MEDS: VITAMIN D 1000 UNIT TAB PO SCH (20:17)
[2021-08-16] MEDS: SIMETHICONE 80 MG TAB PO PRN (20:17)
[2021-08-16] MEDS: DULOXETINE 20 MG CAP PO SCH (20:17)
[2021-08-16] MEDS: MELATONIN 3 MG TABLET PO PRN (20:18)
[2021-08-16] MEDS: ATORVASTATIN 10 MG TAB PO SCH (20:18)
[2021-08-16] MEDS: GLUCERNA SHAKE 237 ML CAN PO SCH (20:19)
[2021-08-17] MEDS: METOPROLOL TAR 25 MG TAB PO SCH (05:06)
[2021-08-17] MEDS: LEVOTHYROXINE SOD 0.125 MG TAB PO SCH (05:06)
[2021-08-17] MEDS: VANCOMYCIN ORAL SOLN 250 MG/5 ML OSYR PO SCH ×2 (05:06→12:10)
[2021-08-17] MEDS: MAGNES/ALUMIN/SIMET 30ML UCUP PO PRN ×2 (05:07→12:21)
[2021-08-17 06:54] LABS: Absolute Lymphocytes (CBC) 1.7 K/uL (0.7-4.9); Hematocrit 30.5 % (39.6-49.0); Lymphocytes % 23.2 % (15.3-44.8); MPV 7.1 fL (7.6-11.3); RBC Red Blood Cell Count 3.49 M/uL (4.33-5.43)
[2021-08-17] MEDS: LIDOCAINE 4% PATCH TOP SCH (06:54)
[2021-08-17] MEDS: Meropenem 1,000 MG in NA CHLORIDE 0.9% 100 ML IV SCH (06:55)
[2021-08-17 07:09] LABS: Potassium 5.5 mmol/L (3.5-5.1)
[2021-08-17 07:13] VITALS: BP 119/60; TEMP 97.1
[2021-08-17] MEDS: PANTOPRAZOLE 40MG TABLET PO SCH (07:14)
[2021-08-17] MEDS: INSULIN -REGULAR HUMAN 50 UNIT/0.5 ML ML SQ SCH ×2 (07:30→11:30)
[2021-08-17] MEDS: TRESIBA 40 UNIT SQ SCH (07:52)
[2021-08-17] MEDS: JUVEN PACKET PO SCH (08:00)
[2021-08-17] MEDS: JARDIANCE 10 MG PO SCH (09:18)
[2021-08-17] MEDS: NYSTATIN PWDR 100000 UNIT/GM TOP SCH (09:18)
[2021-08-17] MEDS: icosapent ethyL 1 GM CAP PO SCH (09:19)
[2021-08-17] MEDS: CRANBERRY FRUIT EXTRACT 400 MG CAP PO SCH (09:19)
[2021-08-17] MEDS: allopurinoL 100 MG TAB PO SCH (09:20)
[2021-08-17] MEDS: FINASTERIDE 5 MG TAB PO SCH (09:20)
[2021-08-17] MEDS: TAMSULOSIN 0.4 MG SR CAP PO SCH (09:20)
[2021-08-17] MEDS: GABAPENTIN 300 MG CAP PO SCH (09:21)
[2021-08-17] MEDS: GLUCERNA SHAKE 237 ML CAN PO SCH (09:21)
[2021-08-17] MEDS: FERROUS SULFATE 325 MG TAB PO SCH (09:21)
[2021-08-17] MEDS: APIXABAN 5 MG TABLET PO SCH (09:22)
[2021-08-17] MEDS: SPIRONOLACTONE 25 MG TABLET PO SCH (09:22)
[2021-08-17] MEDS: AMIODARONE HCL 200 MG TAB PO SCH (09:22)
--- NOTE | 2021-08-17 10:09 | P.RH.PN ---
Estimated Length of Stay: 15 Expected Discharge Date: 08/18/21 Discharge Disposition Plan: Home Family Support: Yes Alf Goal: Mobility, Transfers, Self Care Vital Signs: Last Vital Signs Temp 97.1 F 08/17/21 07:12 Pulse 69 08/17/21 09:22 Resp 18 08/17/21 07:12 BP 119/60 08/17/21 09:22 Pulse Ox 100 08/17/21 07:12 Laboratory: Laboratory Last Values WBC 7.20 K/uL (4.3-10.9) 08/17/21 06:27 RBC 3.49 M/uL (4.33-5.43) L 08/17/21 06:27 Hgb 10.0 g/dL (13.6-17.9) L 08/17/21 06:27 Hct 30.5 % (39.6-49.0) L 08/17/21 06:27 MCV 87.4 fL (80-100) 08/17/21 06:27 MCH 28.5 pg (27.0-35.0) 08/17/21 06:27 MCHC 32.6 g/dL (32.0-36.0) 08/17/21 06:27 RDW 18.1 % (12.1-15.2) H 08/17/21 06:27 Plt Count 292 K/uL (152-406) 08/17/21 06:27 MPV 7.1 fL (7.6-11.3) L 08/17/21 06:27 Neutrophils % 65.6 % (41.7-73.7) 08/17/21 06:27 Lymphocytes % 23.2 % (15.3-44.8) 08/17/21 06:27 Monocytes % 7.2 % (3.3-12.3) 08/17/21 06:27 Eosinophils % 3.4 % (0-4.4) 08/17/21 06:27 Basophils % 0.6 % (0-1.3) 08/17/21 06:27 Absolute Neutrophils 4.7 K/uL (1.8-8.0) 08/17/21 06:27 Absolute Lymphocytes 1.7 K/uL (0.7-4.9) 08/17/21 06:27 Absolute Monocytes 0.5 K/uL (0.1-1.3) 08/17/21 06:27 Absolute Eosinophils 0.2 K/uL (0-0.5) 08/17/21 06:27 Absolute Basophils 0.0 K/uL (0-0.5) 08/17/21 06:27 Sodium 131 mmol/L (136-145) L 08/17/21 06:27 Potassium 5.5 mmol/L (3.5-5.1) H 08/17/21 06:27 Chloride 99 mmol/L (98-107) 08/17/21 06:27 Carbon Dioxide 26 mmol/L (21-32) 08/17/21 06:27 BUN 36 mg/dL (7-18) H 08/17/21 06:27 Creatinine 1.76 mg/dL (0.55-1.3) H 08/17/21 06:27 Estimated GFR 37 mL/min (=/>90) L 08/17/21 06:27 Glucose 121 mg/dL (74-106) H 08/17/21 06:27 POC Glucose 112 mg/dL (65-120) 08/17/21 07:46 Uric Acid 5.9 mg/dL (3.5-7.2) 08/04/21 06:05 Calcium 7.8 mg/dL (8.5-10.1) L 08/17/21 06:27 Magnesium 2.8 08/16/21 06:12 Albumin 1.8 g/dL (3.4-5.0) L 08/16/21 06:12 Prealbumin 12.5 mg/dL (20-40) L 08/16/21 06:12 Urine Color Yellow (Yellow) 08/12/21 10:25 Urine Appearance Turbid (Clear) 08/12/21 10:25 Urine pH 6.0 (5.0-7.0) 08/12/21 10:25 Ur Specific Wendell 1.020 (1.005-1.030) 08/12/21 10:25 Glucose (UA)(Auto) 3+ (Negative) H 08/12/21 10:25 Urine Ketones Trace (Negative) H 08/12/21 10:25 Urine Blood 3+ (Negative) H 08/12/21 10:25 Urine Nitrite Positive (Negative) H 08/12/21 10:25 Urine Bilirubin Negative (Negative) 08/12/21 10:25 Urine Urobilinogen 0.2 mg/dL (0.2-1.0) 08/12/21 10:25 Ur Leukocyte Esterase 3+ (Negative) H 08/12/21 10:25 Urine RBC >50 /HPF (NONE SEEN) H 08/12/21 10:25 Urine WBC Tntc /HPF (<5) H 08/12/21 10:25 Ur Squamous Epith Cells 5-10 /HPF (NONE SEEN) H 08/12/21 10:25 Amorphous Sediment 2+ /HPF (NONE SEEN) H 08/03/21 19:00 Urine Bacteria Loaded /HPF (NONE SEEN) H 08/12/21 10:25 Hyaline Casts 0-5 /LPF (NONE SEEN) 08/03/21 19:00 Fine Granular Casts 0-5 /LPF (NONE SEEN) 08/03/21 19:00 Coarse Granular Casts 0-5 /LPF (NONE SEEN) 08/03/21 19:00 Urine Mucus 2+ /HPF (NONE SEEN) 08/03/21 19:00 Urine Culture Reflexed Reflexed 08/12/21 10:25 Urine Total Protein 1+ (Negative) H 08/12/21 10:25 C. difficile Ag & Toxin Ag pos : tox pos (NEG : NEG) A 08/14/21 10:25 SARS-CoV-2 Rap RNA(RT-PCR) Negative (NEGATIVE) 08/14/21 04:40 Weight: 220 lb 8 oz Wound Present: No Closed Surgical Incision Present: No Negative Pressure Wound Therapy Present: No Physician Update: Walker 51' with contact guard using a walker. He pushed wheelchair 250' with standby assistance. Labs reviewed and stable. To be D/Shayne to SNF today. Comment: bruising noted to bilateral arm. skin tear to left arm sustained during fall at home Functional Improvement: Patient continues to display lack of motivation toward rehab & requires continuous VC for encouragement. Patient physically capable of accomplishing more with therapy, however is limited by lack of motivation. Summary: Patient's care plan and rn oncology research goals have been reviewed and revised as necessary. Please see the Rehabilitation Signature page for all necessary signatures.
[2021-08-17 10:35] VITALS: O2SAT 97
[2021-08-18] MEDS ORDERED: Meropenem 1,000 MG in NA CHLORIDE 0.9% 100 ML IV SCH (20:00)
== END 2021-08-17 14:25 | DRG 948 ==
LOC: 5TH 20:51
PROVIDERS: ADMIT Psychiatry & Neurology Neurology with Special Qualifications in Child Neurology; ATTEND Psychiatry & Neurology Neurology with Special Qualifications in Child Neurology
DX: R53.81 Other malaise (principal); I50.32 Chronic diastolic (congestive) heart failure; I11.0 Hypertensive heart disease with heart failure; E78.5 Hyperlipidemia, unspecified; K21.9 Gastro-esophageal reflux disease without esophagitis; I25.10 Atherosclerotic heart disease of native coronary artery without angina pectoris; I27.20 Pulmonary hypertension, unspecified; E11.40 Type 2 diabetes mellitus with diabetic neuropathy, unspecified; E03.9 Hypothyroidism, unspecified; I48.91 Unspecified atrial fibrillation; N40.0 Benign prostatic hyperplasia without lower urinary tract symptoms; M10.9 Gout, unspecified; Z95.5 Presence of coronary angioplasty implant and graft; Z90.49 Acquired absence of other specified parts of digestive tract; Z95.0 Presence of cardiac pacemaker; Z95.2 Presence of prosthetic heart valve; Z86.73 Personal history of transient ischemic attack (TIA), and cerebral infarction without residual deficits; Z79.01 Long term (current) use of anticoagulants; Z79.4 Long term (current) use of insulin; Z79.890 Hormone replacement therapy; Z79.899 Other long term (current) drug therapy; Z95.1 Presence of aortocoronary bypass graft
CPT/HCPCS: 36415; 71045; 74018; 80048; 81001; 81003; 81015; 82040; 82274; 82947; 83735; 84134; 84550; 85025; 87077; 87086; 87088; 87186; 87324; 87449; 92523; 93005; 93306; 97110; 97112; 97116; 97127; 97129; 97161; 97530; 97542; J2185; J7040; J7050; U0003

== ENCOUNTER 2021-09-22 19:59 | Emergency (ER) | payer OTHER, MEDICARE ==
--- OUTSIDE RECORDS SUMMARY | 2021-09-22 20:04 | XMS REPORT | Continuity of Care Document ---
:1935 Author Organization [facility] t Address [address] [place] [address] Care Team Providers Name Role Phone Vianey SUÁREZ Primary Care Physician Unavailable ABBIE Attending Clinician Unavailable LINDA LEIVA Attending Clinician Unavailable Tyrell DONOVAN Attending Clinician Unavailable Gladys JAQUEZ Attending Clinician Unavailable Doctor Unassigned, Name Attending Clinician Unavailable Carolina FELIX Attending Clinician CAROLINA Attending Clinician Unavailable Tyrell Donovan MD Attending Clinician JOSE ARMANDO Attending Clinician Unavailable INGRID Attending Clinician Unavailable MD SHI QUINTERO Attending Clinician Unavailable FRANKI Attending Clinician Unavailable GUSTAVO Attending Clinician [...] Attending Clinician Unavailable KELVIN Attending Clinician Unavailable STANFORD Admitting Clinician Unavailable INGRID Admitting Clinician Unavailable MD [...] Date Gladys luciano MEDICARE PART A AND [id number] 2016 B 00:00:00 MEDICARE PART A \T\ [id number] 2001 B 00:00:00 [facility] [id number] 2017 MEDICARE SUPPLEMENT 00:00:00 Problems Condition Condition Condition Status Onset Resolution Last Treating Co mments Source Name Details Category Date Date Treatment Clinician Date No known No known Disease Unive rs active active ity of problems problems [facility]ly [facility] Allergies, Adverse Reactions, Alerts Allergy Allergy Status Severity Reaction(s) Onset Inactive Treating Comm ents Source Name Type Date Date Clinician NO KNOWN Drug Active Univers ALLERGIE Class ity of S [facility] Social History Social Habit Start Date Stop Date Quantity Comments Source Exposure to Not sure [facility]-CoV-2 [facility] (event) Branch Alcohol intake 2021-06-21 2021-06-21 Current [facility] 00:00:00 00:00:00 non-drinker of [facility] alcohol [place] (finding) Tobacco use and 2017-04-08 2017-04-08 Never used Universit y of exposure 00:00:00 00:00:00 [facility] Sex Ass[birth year] At [birth year] Universit y of 00:00:00 00:00:00 [facility] Smoking Status Start Date Stop Date Source Never smoker [facility] Medications Ordered Filled Start [...] MG tablet 16:47: every 50 night. donepezil 202-0 Yes 10mg Take 10 mg UT (Aricept) 6-28 by mouth Health 10 MG 16:47: every tablet 50 night. torsemide 2021-0 Yes 20mg QD Take 20 mg UT [...] capsule 50 (four) times a day. febuxostat Yes Take by UT (Uloric) 40 6-28 [...] tablet 00 (two) times a day. carvedilol 2020-0 Yes 6.25mg Q.5D Take 6.25 UT (Coreg) [...] (one) time 00 each day. Eliquis 2.5 2020-0 Yes 2.5mg Q.5D [...] tablet 00 (one) time each day. amiodarone 2020-0 Yes 200mg QD Take [...] capsule 00 (one) time each day. allopurinol 2021-0 Yes 100mg QD Take 100 U T (Zyloprim) 1-14 mg by Health 100 MG 00:00: mouth 1 tablet 00 (one) time each day. allopurinol 2021-0 Yes 100mg QD Take 100 U T (Zyloprim) 1-14 mg by Health 100 MG 00:00: mouth 1 tablet 00 (one) time each day. allopurinol 1-0 Yes 100mg QD Take 100 U T (Zyloprim) 1-14 mg by Health 100 MG 00:00: mouth 1 tablet 00 (one) time each day. allopurinol 2021-0 Yes 100mg QD Take 100 U T [...] BY MOUTH IN THE MORNING AND HALF (12) A TABLET INTHE AFTERNOON. bumetanide 2019-07 Yes TAKE ONE UT (Bumex) 2 0-08 (1) Health MG tablet 00:00: TABLET(S) 00 BY MOUTH IN THE MORNING AND HALF (1/2) A TABLET INTHE AFTERNOON. bumetanide 2019-07 Yes TAKE ONE UT (Bumex) 2 0-08 (1) Health MG tablet 00:00: TABLET(S) 00 BY MOUTH IN THE MORNING AND HALF (12) A TABLET INTHE AFTERNOON. tadalafil 2016-07 Yes 1 TABLET Univ ers (CIALIS) 20 0-03 DAILY ity of mg tablet 10:04: NEEDED [address] Dexlansopra 2016-07 Yes Take by Un josh zole 0-03 mouth. ity of (DEXILANT) 10:04: [place] 60 mg 57 Medical capsule Branch tadalafil 2016-07 Yes 1 TABLET Univ ers (CIALIS) 20 0-03 DAILY ity of mg tablet 10:04: NEEDED [address] Dexlansopra 2016-07 Yes Take by Un josh zole 0-03 mouth. ity of (DEXILANT) 10:04: [place] 60 mg 57 Medical capsule Branch tadalafil 2016-07 Yes 1 TABLET Univ ers (CIALIS) 20 0-03 DAILY ity of mg tablet 10:04: NEEDED [address] Dexlansopra 2016-07 Yes Take by Un josh zole 0-03 mouth. ity of (DEXILANT) 10:04: [place] 60 mg 57 Medical capsule Branch tadalafil 2016-07 Yes 1 TABLET Univ ers (CIALIS) 20 0-03 DAILY ity of mg tablet 10:04: NEEDED [address] Dexlansopra 2016-07 Yes Take by Un josh zole 0-03 mouth. ity of (DEXILANT) 10:04: [place] 60 mg 57 Medical capsule Branch tadalafil 2016-07 Yes 1 TABLET Univ ers (CIALIS) 20 0-03 DAILY ity of mg tablet 10:04: NEEDED [address] Dexlansopra 2016-07 Yes Take by Un josh zole 0-03 mouth. ity of (DEXILANT) 10:04: [place] 60 mg 57 Medical capsule Branch tadalafil 2016-07 Yes 1 TABLET [facility] ers (CIALIS) 20 0-03 DAILY ity of mg tablet 10:04: NEEDED [place] [address] Medical Branch Dexlansopra 2016-07 Yes Take by Un josh zole 0-03 mouth. ity of (DEXILANT) 10:04: [place] 60 mg 57 Medical capsule Branch amiodarone 2016-07 Yes 200mg Take 200 Un josh 200 mg 0-03 mg by ity of tablet 10:04: mouth. [address] Branch aspirin 325 2016-07 Yes 325mg Take 325 U nivers mg tablet 0-03 mg by ity of 10:04: mouth. [address] Branch Azelastine 2016-07 Yes Use in [facility] ers (ASTEPRO) 0-03 each ity of 0.15 % 10:04: nostril. [place] (205.5 mcg) Medical nasal spray Branch amiodarone 2016-07 Yes 200mg Take 200 Un josh 200 mg 0-03 mg by ity of tablet 10:04: mouth. [address] Branch aspirin 325 2016-07 Yes 325mg Take 325 U nivers mg tablet 0-03 mg by ity of 10:04: mouth. [address] Branch Azelastine 2016-07 Yes Use in [facility] ers (ASTEPRO) 0-03 each ity of 0.15 % 10:04: nostril. [place] (205.5 mcg) Medical nasal spray Branch amiodarone 2016-07 Yes 200mg Take 200 Un josh 200 mg 0-03 mg by ity of tablet 10:04: mouth. [address] aspirin 325 2016-07 Yes 325mg Take 325 U nivers mg tablet 0-03 mg by ity of 10:04: mouth. [address] Branch Azelastine 2016-07 Yes Use in [facility] ers (ASTEPRO) 0-03 each ity of 0.15 % 10:04: nostril. [place] (205.5 mcg) Medical nasal spray Branch amiodarone 2016-07 Yes 200mg Take 200 Un josh 200 mg 0-03 mg by ity of tablet 10:04: mouth. [address] aspirin 325 2016-07 Yes 325mg Take 325 U nivers mg tablet 0-03 mg by ity of 10:04: mouth. [address] Azelastine 2016-07 Yes Use in [facility] ers (ASTEPRO) 0-03 each ity of 0.15 % 10:04: nostril. [place] (205.5 mcg) Medical nasal spray Branch amiodarone 2017 Yes 200mg Take 200 Un josh 200 mg 0-03 mg by ity of tablet 10:04: mouth. [address] aspirin 325 2017 Yes 325mg Take 325 U nivers mg tablet 0-03 mg by ity of 10:04: mouth. [address] Azelastine 2017 Yes Use in [facility] ers (ASTEPRO) 0-03 each ity of 0.15 % 10:04: nostril. [place] (205.5 mcg) Medical nasal spray Branch amiodarone 2016-07 Yes 200mg Take 200 Un josh 200 mg 0-03 mg by ity of tablet 10:04: mouth. [address] aspirin 325 2016-07 Yes 325mg Take 325 U nivers mg tablet 0-03 mg by ity of 10:04: mouth. [address] Azelastine 2016-07 Yes Use in [facility] ers (ASTEPRO) 0-03 each ity of 0.15 % 10:04: nostril. [place] (205.5 mcg) Medical nasal spray Branch rosuvastati 2016-07 Yes 1 TABLET Un josh n (CRESTOR) 0-03 DAILY ity of 10 mg 09:38: [address] doxazosin 4 2016-07 Yes 2mg Take 2 mg U nivers mg tablet 0-03 by mouth. ity o f 09:38: [address] fosinopril 2016-07 Yes 20mg Take 20 mg U nivers 20 mg 0-03 by mouth. ity of tablet 09:38: [address] rosuvastati 2016-07 Yes 1 TABLET Un josh n (CRESTOR) 0-03 DAILY ity of 10 mg 09:38: [address] doxazosin 4 2016-07 Yes 2mg Take 2 mg U nivers mg tablet 0-03 by mouth. ity o f 09:38: [address] fosinopril 2016-07 Yes 20mg Take 20 mg U nivers 20 mg 0-03 by mouth. ity of tablet 09:38: [address] rosuvastati 2016-07 Yes 1 TABLET Un josh n (CRESTOR) 0-03 DAILY ity of 10 mg 09:38: [address] doxazosin 4 2016-07 Yes 2mg Take 2 mg U nivers mg tablet 0-03 by mouth. ity o f 09:38: [address] fosinopril 2016-07 Yes 20mg Take 20 mg U nivers 20 mg 0-03 by mouth. ity of tablet 09:38: [address] rosuvastati 2016-07 Yes 1 TABLET Un josh n (CRESTOR) 0-03 DAILY ity of 10 mg 09:38: [address] doxazosin 4 2016-07 Yes 2mg Take 2 mg U nivers mg tablet 0-03 by mouth. ity o f 09:38: [address] fosinopril 2016-07 Yes 20mg Take 20 mg U nivers 20 mg 0-03 by mouth. ity of tablet 09:38: [address] rosuvastati 2016-07 Yes 1 TABLET Un josh n (CRESTOR) 0-03 DAILY ity of 10 mg 09:38: [address] doxazosin 4 2016-07 Yes 2mg Take 2 mg U nivers mg tablet 0-03 by mouth. ity o f 09:38: [address] fosinopril 2016-07 Yes 20mg Take 20 mg U nivers 20 mg 0-03 by mouth. ity of tablet 09:38: [address] rosuvastati 2016-07 Yes 1 TABLET Un josh n (CRESTOR) 0-03 DAILY ity of 10 mg 09:38: [address] doxazosin 4 2016-07 Yes 2mg Take 2 mg U nivers mg tablet 0-03 by mouth. ity o f 09:38: [address] fosinopril 2016-07 Yes 20mg Take 20 mg U nivers 20 mg 0-03 by mouth. ity of tablet 09:38: [address] cephALEXin Yes TAKE ONE Uni vers 500 mg 9-17 (1) ity of capsule 00:00: [place] 00 BY MOUTH Medical EVERY SIX Branch HOURS FOR 10 DAYS. cephALEXin 2017 Yes TAKE ONE Uni vers 500 mg 9-17 (1) ity of capsule 00:00: [place] 00 BY MOUTH Medical EVERY SIX Branch HOURS FOR 10 DAYS. cephALEXin 0 Yes TAKE ONE Uni vers 500 mg [...] SIX Branch HOURS FOR 10 DAYS. CONTOUR 2017-0 Yes Univers NEXT STRIPS 8-08 ity of strip 00:00: Medical Branch CONTOUR 2017-0 Yes Univers NEXT STRIPS 8-08 ity of strip 00:00: Medical Branch CONTOUR 2017-0 Yes Univers NEXT STRIPS 8-08 ity of strip 00:00: Medical Branch CONTOUR 2017-0 Yes Univers NEXT STRIPS 8-08 ity of strip 00:00: Medical Branch CONTOUR 2017-0 Yes Univers NEXT STRIPS 8-08 ity of strip 00:00: Medical Branch CONTOUR 2017-0 Yes Univers NEXT STRIPS 8-08 ity of strip 00:00: Medical Branch allopurinol 2017-0 Yes Univer s 100 mg 7-27 ity of tablet 00:00: Medical Branch allopurinol 2017-0 Yes Univer s 100 mg 7-27 ity of tablet 00:00: Medical Branch allopurinol 2017-0 Yes Univer s 100 mg 7-27 ity of tablet 00:00: Medical Branch allopurinol 2017-0 Yes Univer s 100 mg 7-27 ity of tablet 00:00: Medical Branch allopurinol 2017-0 Yes Univer s 100 mg 7-27 ity of tablet 00:00: Medical Branch allopurinol 2017-0 Yes Univer s 100 mg 7-27 ity of tablet 00:00: [place] Medical Branch calcitriol Yes TAKE ONE Uni vers 0.25 [...] A DAY Branch IN THE MORNING. levothyroxi Yes TAKE ONE Un josh ne 200 mcg 7-13 (1) ity of tablet 00:00: TABLET(S) [place] 00 BY MOUTH Medical ONCE A DAY Branch IN THE MORNING. levothyroxi 0 Yes TAKE ONE Un josh ne 200 mcg 7-13 (1) ity of tablet 00:00: TABLET(S) [place] 00 BY MOUTH Medical ONCE A DAY Branch IN THE MORNING. levothyroxi 2016-0 Yes TAKE ONE Un josh ne 200 mcg 7-13 (1) ity of tablet 00:00: TABLET(S) [place] 00 BY MOUTH Medical ONCE A DAY Branch IN THE MORNING. levothyroxi 2016-0 Yes TAKE ONE Un josh ne 200 mcg 7-13 (1) ity of tablet 00:00: TABLET(S) [place] 00 BY MOUTH Medical ONCE A DAY Branch IN THE MORNING. levothyroxi 2016- Yes TAKE ONE Un josh ne 200 mcg 7-13 (1) ity of tablet 00:00: TABLET(S) [place] 00 BY MOUTH Medical ONCE A DAY Branch IN THE MORNING. Vital Signs Vital Name Observation Time Observation Value Comments Source Systolic blood 2021-06-21 14:58:00 103 mm[Hg] Univer sity [facility] Diastolic blood 2021-06-21 14:58:00 50 [facility] height 2021-06-21 14:58:00 180.3 cm [facility] Body weight 2021-06-21 14:58:00 95.255 kg [facility] BMI 2021-06-21 14:58:00 29.29 kg/m2 [facility] Systolic blood 2021-01-01 16:47:00 116 mm[Hg] [...] 16:47:00 28.73 [facility] Procedure Date / Time Performed Performing Clinician [facility] HOME HEALTH - OTHER 2021-09-07 06:01:00 Doctor Unassigned, [facility] Start End Encounter Admission Attending Care Care Encounter Source Date/Time Date/Time Type Type Clinicians Facility Department ID 2020-11-13 Outpatient ABBIE [facility] [id number] [place] 15:45:00 VIRAJ Ureña 2019-11-18 Outpatient ABBIE [facility] CAR [id number] M [facility] 08:31:52 VIRAJ 2021-10-01 2021-10-01 Outpatient Anabel ZION [facility] [id number] Univers 15:15:00 15:15:00 LORRI [id number] ity [facility] 2021-09-24 2021-09-24 [facility] [id number] Univers 15:15:00 15:15:00 EVELYN [id number] ity [facility] 2021-09-24 2021-09-24 [facility] [id number] Univers 15:15:00 15:15:00 EVELYN ity [facility] 2021-09-07 2021-09-07 Orders Doctor ADHIKARI [id number] Univers 00:00:00 00:00:00 Only Unassigned, ZACHARY [id number] ity of [place] [facility] [id number] Anurag as [id number] [facility] 009 Branch 2021-08-30 2021-08-30 Outpatient R [facility] [id number] Univers 00:00:00 00:00:00 ity [facility] 2021-08-29 2021-08-29 [facility] THEODORA Todd [id number] Univers 11:15:00 23:59:00 Encounter Garrett Sewell [id number] ity of [facility] [id number] Anurag as [id number] [facility] 031 Branch 2021-08-29 2021-08-29 Out[facility] [id number] Univers 00:00:00 23:59:00 GARRETT ity [facility] 2021-08-29 2021-08-29 Outpatient R [facility] [id number] Univers 00:00:00 00:00:00 ity [facility] 2021-08-28 2021-08-28 Hospital THEODORA Todd [id number] Univers 11:16:00 23:59:00 Encounter Garrett Sewell [id number] ity of [facility] [id number] Anurag as [id number] [address] 2021-08-28 2021-08-28 Outpatient R [facility] [id number] Univers 00:00:00 23:59:00 GARRETT [facility] 2021-08-07 2021-08-07 Telephone [facility] [id number] Univers 00:00:00 00:00:00 Lorri COLLINS [id number] it y of [place] [id number] Anurag as SHALONDA?BLEA [id number] Dc elmerjairo [address] OFFICE [facility] 2021-07-30 2021-07-30 Outpatient JOSE ARMANDO [facility] [id number] [place] 00:00:00 00:00:00 RICHARD 378 Meth zafar 2021-06-27 2021-07-04 [id number] [place] 00:00:00 00:00:00 ALBERT 554 Method i 2021-06-21 2021-06-21 Out[facility] [id number] Univers 11:15:00 13:02:13 LORRI [facility] 2021-06-21 2021-06-21 Office [facility] [id number] Univers 11:15:00 13:02:13 Visit Lorri Santillan [facility] [id number] it [facility] [id number] Anurag as SHALONDA?BLEA [id number] Dc armando REESNDEZNIKITA [address] [place] [address] MEDICAL OFFICE [facility] 2021-06-05 2021-06-05 Outpatient EMELY DOAN [facility] [id number] [place] 00:00:00 00:00:[address] 2021-06-05 2021-06-05 Outpatient EMELY DOAN [facility] [id number] [place] 00:00:00 00:00:[address] 2021-05-03 2021-05-03 Outpatient JOSE ARMANDO, [facility] [id number] [place] 00:00:00 00:00:00 RICHARD [address] 2021-03-28 2021-03-28 Outpatient JOSE ARMANDO, [facility] [id number] [place] 00:00:00 00:00:00 RICHARD [address] 2021-03-02 2021-03-02 Outpatient FRANKIEMELY [facility] [id number] [place] 00:00:00 00:00:[address] 2021-01-12 2021-01-12 Outpatient MAIRA CHEN [facility] [id number] [place] 00:00:00 00:00:[address] 2021-01-03 2021-01-03 Outpatient SAMND, [facility] [id number] [place] 00:00:00 00:00:00 ALEJANDRO [address] 2021-01-03 2021-01-03 Outpatient RADHA, [facility] [id number] [place] 00:00:00 00:00:00 ALEJANDRO [address] 2021-01-01 2021-01-01 Office TRINH Leiva 6400 [id number] 11:18:17 12:10:26 [address] 350.1.13.58 9.2.7.2.686 [id number] 1 2021-01-01 2021-01-01 Office TRINH Leiva 6400 [id number] [place] 11:18:17 12:10:[address] [id number] [facility] [id number] [id number] 2020-12-27 2020-12-27 Telephone TRINH Leiva [facility] [id number] [place] 00:00:00 00:00:00 Viraj SUGAR [id number] Health [facility] [id number] [id number] AND 1 WOMENS 2020-11-10 2020-11-10 Outpatient EMELY DOAN [facility] [id number] [place] 00:00:00 00:00:[address] 2020-11-01 2020-11-01 Outpatient JOSE ARMANDO, [facility] [id number] [place] 00:00:00 00:00:00 RICAHRD [address] 2020-10-23 2020-10-27 Inpatient AIXA, [facility] [id number] [place] 00:00:00 00:00:00 PAULY [address] 2020-09-22 2020-09-22 Outpatient EMELY DOAN [facility] [id number] [place] 00:00:00 00:00:[address] 2020-08-29 2020-09-[address] [facility] [id number] [place] 00:00:00 00:00:00 PAULY [address] 2020-08-25 2020-08-31 Outpatient EMELY DOAN [facility] [id number] [place] 00:00:00 00:00:[address] 2020-08-15 2020-08-19 Inpatient XU, [facility] [id number] [place] 00:00:00 00:00:00 MARIAH [address] 2020-07-28 2020-07-28 Outpatient EMELY DOAN [facility] [id number] [place] 00:00:00 00:00:[address] 2020-07-28 2020-07-28 Outpatient EMELY DOAN [facility] [id number] [place] 00:00:00 00:00:[address] 2020-07-14 2020-07-14 Outpatient CHEN, MAIRA [facility] [id number] [place] 00:00:00 00:00:[address] 2020-07-13 2020-07-13 Outpatient JOSE ARMANDO [facility] [id number] [place] 00:00:00 00:00:00 RICHARD [address] 2020-07-13 2020-07-13 Outpatient MARIA EUGENIA, [facility] [id number] [place] 00:00:00 00:00:00 SIRAYA [address] 2020-07-12 2020-07-12 Outpatient [facility] [id number] [place] 00:00:00 00:00:[address] 2020-05-26 2020-05-26 Outpatient EMELY DOAN [facility] [id number] [place] 00:00:00 00:00:[address] 2020-05-23 2020-05-23 Outpatient DELAFLOR-SA [facility] [id number] [place] 00:00:00 00:00:00 NTAANA, [address] 2020-05-08 2020-05-[address] [facility] [id number] [place] 00:00:00 00:00:00 ANETTE [address] 2020-05-05 2020-05-05 Outpatient EMELY DOAN [facility] [id number] [place] 00:00:00 00:00:[address] 2020-05-03 2020-05-03 Outpatient JOSE ARMANDO [facility] [id number] [place] 00:00:00 00:00:00 RICHARD [address] 2020-04-26 2020-04-[address] [facility] [id number] [place] 00:00:00 00:00:00 ASHRITH [address] 2020-04-24 2020-04-24 Outpatient EMELY DOAN [facility] [id number] [place] 00:00:00 00:00:[address] 2020-04-14 2020-04-14 Outpatient EMELY DOAN [facility] [id number] [place] 00:00:00 00:00:[address] 2020-04-03 2020-04-03 Outpatient Daniel_T VFP VFP [id number] [id number] [facility] 01:57:00 01:57:00 [id number] Family Practic e 2020-03-17 2020-03-17 Outpatient EMELY DOAN [facility] [id number] [place] 00:00:00 00:00:[address] 2020-03-09 2020-03-09 Outpatient DELAFLOR-SA [facility] [id number] [place] 00:00:00 00:00:00 NTAANA, [address] 2020-02-24 2020-03-[address] [facility] [id number] [place] 00:00:00 00:00:[address] 2020-02-23 2020-02-23 Outpatient EMELY DOAN [facility] [id number] [place] 00:00:00 00:00:[address] 2020-02-11 2020-02-11 Outpatient EMELY DOAN [facility] [id number] [place] 00:00:00 00:00:[address] 2020-02-04 2020-02-04 Outpatient JOSE ARMANDO, [facility] [id number] [place] 00:00:00 00:00:00 RICHARD [address] 2020-01-20 2020-01-25 Inpatient SAVANA, [facility] [id number] [place] 00:00:00 00:00:00 AMITKUMAR [address] 2020-01-12 2020-01-12 Outpatient MAIRA CHEN [facility] [id number] [place] 00:00:00 00:00:[address] 2019-12-31 2019-12-31 Outpatient EMELY DOAN [facility] [id number] [place] 00:00:00 00:00:[address] 2019-12-31 2019-12-31 Outpatient EMELY DOAN [facility] [id number] [place] 00:00:00 00:00:[address] 2019-12-27 2019-12-27 Outpatient TRISHA, [facility] [id number] [place] 00:00:00 00:00:00 TRISHA [address] 2019-12-17 2019-12-18 Outpatient SOTO, [facility] [id number] [place] 00:00:00 00:00:00 MERCY [address] 2019-11-18 2019-11-18 Outpatient KELVIN, [facility] [id number] [place] 00:00:00 00:00:00 MAHWASH [address] 2019-11-04 2019-11-04 Outpatient JOSE ARMANDO, [facility] [id number] [place] 00:00:00 00:00:00 RICHARD [address] 2019-10-19 2019-10-19 Outpatient JOSE ARMANDO, [facility] [id number] [place] 00:00:00 00:00:00 RICHARD [address] 2019-09-17 2019-09-17 Outpatient EMELY DOAN [facility] [id number] [place] 00:00:00 00:00:[address] 2019-09-02 2019-09-09 [place] [id number] [place] 00:00:00 00:00:00 PAULY [id number] [facility] Results Test Description Test [...] c ondition of interest (test code = 96960-2) SARS-CoV-2 (COVID-19) RNA [Presence] in Respiratory specimen by ANDREW with probe [id number] 00:24:51 Test Item Value Reference Range Interpretation Comments SARS-CoV-2 (COVID-19) RNA Not detected Not-Detected [Presence] in Respiratory specimen by ANDREW with probe detection (test code = 10406-7) SARS-CoV-2 (COVID-19) RNA [Presence] in Respiratory specimen by ANDREW with probe [id number] 23:06:04 Test Item Value Reference Range Interpretation Comments SARS-CoV-2 (COVID-19) RNA Not detected Not-Detected [Presence] in Respiratory specimen by ANDREW with probe detection (test code = 58919-1) SARS-CoV-2 (COVID-19) RNA [Presence] in Respiratory specimen by ANDREW with probe [id number] 19:57:13 Test Item Value Reference Range Interpretation Comments SARS-CoV-2 (COVID-19) RNA Not detected Not-Detected [Presence] in Respiratory specimen by ANDREW with probe detection (test code = 14286-4) SARS-CoV-2 (COVID-19) RNA [Presence] in Respiratory specimen by ANDREW with probe [id number] 23:40:00 Test Item Value Reference Range Interpretation Comments SARS-CoV-2 (COVID-19) RNA Not detected Not-Detected [Presence] in Respiratory specimen by ANDREW with probe detection (test code = 02821-8) SARS-CoV-2 (COVID-19) RNA [Presence] in Respiratory specimen by ANDREW with probe [id number] 22:07:46 Test Item Value Reference Range Interpretation Comments SARS-CoV-2 (COVID-19) RNA Not detected Not-Detected [Presence] in Respiratory specimen by ANDREW with probe detection (test code = 68227-8) SARS-CoV-2 (COVID-19) RNA [Presence] in Respiratory specimen by ANDREW with probe [id number] 21:47:42 Test Item Value Reference Range Interpretation Comments SARS-CoV-2 (COVID-19) RNA Not detected Not-Detected [Presence] in Respiratory specimen by ANDREW with probe detection (test code = 75499-5) SARS-CoV-2 (COVID-19) RNA [Presence] in Respiratory specimen by ANDREW with probe [id number] 14:31:58 Test Item Value Reference Range Interpretation Comments SARS-CoV-2 (COVID-19) RNA Not detected Not-Detected [Presence] in Respiratory specimen by ANDREW with probe detection (test code = 81046-5)
[2021-09-22 21:05] LABS: Absolute Lymphocytes (CBC) 2.8 K/uL (0.7-4.9); Hematocrit 40.5 % (39.6-49.0); Lymphocytes % 25.8 % (15.3-44.8); RBC Red Blood Cell Count 4.83 M/uL (4.33-5.43)
[2021-09-22 21:17] LABS: Albumin 2.9 g/dL (3.4-5.0); Bilirubin Total 0.7 mg/dL (0.2-1.0); Potassium 4.5 mmol/L (3.5-5.1); Protein, Total 8.4 g/dL (6.4-8.2)
[2021-09-22] MEDS ORDERED: NA CHLORIDE 0.9% 250 ML ONE (21:46)
[2021-09-22] MEDS ORDERED: PANTOPRAZOLE 40 MG INJ ONE (21:46)
--- NOTE | 2021-09-22 21:56 | RAD REPORT ---
EXAM DESCRIPTION: CTAbdomen Pelvis Wo Contrast - 09/22/2021 9:43 pm CLINICAL HISTORY: ABD PAIN COMPARISON: [facility] Protocol dated 08/23/2020; CT ABDOMEN PELVIS WO CONTRAST dated 06/08/2012 TECHNIQUE: CT of the abdomen and pelvis was performed. All CT scans are performed using dose optimization technique as appropriate and may include automated exposure control or mA/KV adjustment according to patient size. FINDINGS: Lower chest: Scattered areas of micro nodularity in lung bases, which may be of little cli nical significance. Aortic valve prosthesis. Pacemaker leads. Cardiomegaly. Sternotomy. Liver: No acute abnormality or suspicious lesions. Biliary: Cholecystectomy. Stomach: No significant focal abnormality. Duodenum: No significant focal abnormality. Pancreas: No significant abnormality. Spleen: Scarring along the lateral aspect of spleen. Adrenal: Bilateral adrenal myelolipomas. Kidney/ureter: No hydronephrosis. No renal calculi. Right renal cyst. 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 Retroperitoneum: No retroperitoneal adenopathy. Vascular: No aneurysm. Atherosclerosis. Bowel: Sigmoid and rectal wall thickening and perirectal stranding.. Normal appendix. Peritoneum: No ascites or free air. Bladder: Grossly unremarkable. Reproductive: Prostatomegaly. Question prior TURP. Bones: No acute fracture. Remote left-sided rib fractures. Multilevel degenerative changes are presen t in the spine. Other: n/a IMPRESSION: Sigmoid and rectal wall thickening concerning for colitis. No other acute findings ident ified.
--- NOTE | 2021-09-22 23:05 | ER ---
Nurse's Notes [facility] Name: Gilmer Mercado Age: 86 yrs Sex: Male : 1935 Arrival Date: 09/22/2021 Time: 20:03 Bed 23 Private MD: Diagnosis: GI Bleed/ Gastrointestinal hemorrhage, unspecified Presentation: 09/22 20:30 Chief complaint: EMS states: they were toned out for pt with abdominal pain and bb diarrhea for a few weeks worsening today. Coronavirus screen: At this time, the client does not indicate any symptoms associated with coronavirus-19. Ebola Screen: No symptoms or risks identified at this time. Initial Sepsis Screen: Does the patient meet any 2 criteria? No. Patient's initial sepsis screen is negative. Does the patient have a suspected source of infection? No. Patient's initial sepsis screen is negative. Risk Assessment: Do you want to hurt yourself or someone else? Patient reports no desire to harm self or others. Onset of symptoms is unknown. 20:30 Method Of Arrival: EMS: [facility] bb 20:30 Acuity: VIN 2 bb Historical: - Allergies: 21:20 No Known Allergies; bb - Home Meds: 21:20 allopurinol 100 mg Oral tab [Active]; amiodarone 200 mg Oral tab 1 tab once daily bb [Active]; calcitrol [Active]; Eliquis 2.5 mg Oral tab 1 tab 2 times per day [Active]; finasteride 5 mg Oral tab 1 tab once daily [Active]; furosemide 40 mg Oral tab 1 tab once daily [Active]; gabapentin 300 mg Oral cap 2 caps twice a day [Active]; Humulin R 100 unit/mL soln 500 mL 10-20 units daily [Active]; levothyroxine oral 350 mcg tablet daily [Active]; ranitidine HCl 150 mg Oral tab [Active]; simvastatin 20 mg Oral tab 1 tab once daily [Active]; tamsulosin 0.4 mg Oral cp24 1 cap once daily [Active]; Toprol XL 25 mg Oral Tb24 1 tab twice a day [Active]; - PMHx: 21:20 BPH; Diabetes - IDDM; High Cholesterol; Hypertension; Pacemaker; PNUEMONIA; bb - 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 - Social history:: Smoking status: unknown. Screenin:30 Abuse screen: Denies threats or abuse. Nutritional screening: No deficits noted. bb Tuberculosis screening: No symptoms or risk factors identified. Fall Risk Fall in past 12 months (25 points). Secondary diagnosis (15 points) impaired mobility, IV access (20 points). Ambulatory Aid- None/Bed Rest/Nurse Assist (0 pts). Gait- Impaired (20 pts.). Mental Status- Oriented to own ability (0 pts). Total Bell Fall Scale indicates High Risk Score (45 or more points). Fall prevention measures have been instituted. Side Rails Up X 2 Family Present and informed to notify staff if the need to leave the bedside As available patient and family educated on Fall Prevention Program and Strategies. Assessment: 20:30 General: Appears uncomfortable, Behavior is calm, cooperative. Pain: Complains of pain bb in abdomen Pain currently is 5 out of 10 on a pain scale. Neuro: Level of Consciousness is awake, alert, obeys commands, Oriented to person, place, time, situation. Cardiovascular: Capillary refill < 3 seconds Patient's skin is warm and dry. Rhythm is Respiratory: Respiratory effort is even, unlabored, Respiratory pattern is regular. GI: Abdomen is round bruised on right lower quadrant and left lower quadrant Bowel sounds hyperactive in right upper quadrant, left upper quadrant, right lower quadrant and left lower quadrant. Derm: Skin is pale. Musculoskeletal: Circulation, motion, and sensation intact. 21:00 Reassessment: Patient is alert, oriented x 3, equal unlabored respirations, skin bb warm/dry/pink. pt c/o cold multiple warm blankets have been placed on pt. Pt cleaned of black, tarry stool, linens changed, family at bedside. 23:07 Reassessment: Patient is alert, oriented x 3, equal unlabored respirations, skin bb warm/dry/pink. pt cleaned of large black tarry stool BM, linens changed, pt awaiting transfer. 23:16 Reassessment: notified Dr Farley pt BP trending down new orders received fluids started bb see SEP. 09/23 00:15 Reassessment: Patient is alert, oriented x 3, equal unlabored respirations, skin bb warm/dry/pink. pt cleaned of incontinence of black tarry stool. 00:48 Reassessment: report called to Mesha BARKER. bb 01:30 Reassessment: Patient is alert, oriented x 3, equal unlabored respirations, skin bb warm/dry/pink. [facility] at bedside for transfer of pt to [facility]. IV site intact, patent, with fluids infusing. Vital Signs: 09/22 20:30 BP 119 / 52; Pulse 70; Resp 12 S; Temp 97.6(O); Pulse Ox 96% on R/A; Weight 90.72 kg bb (R); Height 5 ft. 11 in. (180.34 cm) (R); Pain 5/10; 21:50 BP 101 / 45; Pulse 70; Resp 20 S; Pulse Ox 95% on R/A; bb 23:00 BP 103 / 44; Pulse 94; Resp 20 S; Pulse Ox 94% on R/A; bb 09/23 00:04 BP 108 / 42; Pulse 70; Resp 14; Pulse Ox 96% on R/A; bb 00:16 BP 108 / 42; Pulse 71; Resp 16 S; Pulse Ox 94% on R/A; bb 01:09 BP 107 / 61; Pulse 70; Resp 18 S; Pulse Ox 96% on R/A; bb 01:30 BP 105 / 50; Pulse 70; Resp 16 S; Pulse Ox 94% on R/A; bb 09/22 20:30 Body Mass Index 27.89 (90.72 kg, 180.34 cm) gisela ED Course: 09/22 20:03 Patient arrived in ED. [email or web address] 20:07 Daniel Cintron DO is Attending Physician. ms3 20:30 Arm band placed on Patient placed in an exam room. bb 20:30 Patient has correct armband on for positive identification. Bed in low position. Call bb light in reach. Side rails up X2. Adult w/ patient. tire recapper on. Pulse ox on. NIBP on. Warm blanket given. 20:45 Initial lab(s) drawn, by me, sent to lab. T\\T\\S collected, blood band applied to patient. bb Inserted saline lock: 18 gauge in right antecubital area, using aseptic technique. Blood collected. 21:18 Christiane Haro, LUCERO is Primary Nurse. bb 21:20 Triage completed. bb 21:43 Abdomen In Process Unspecified. EDMS 23:24 SARS-COV-2 RT PCR Sent. cs9 23:24 COVID-19 SARS RT PCR (Document "Date of Onset" if Symptomatic) Sent. cs9 09/23 02:00 No provider procedures requiring assistance completed. Patient transferred, IV remains bb in place. Administered Medications: 09/22 21:30 Drug: ProTONIX (pantoprazole) 8 mg/hr Route: IV; Rate: 25 ml/hr; Site: right bb antecubital; 09/23 02:01 Follow up: IV Status: Infusion continued upon transfer bb 09/22 21:30 Drug: ProTONIX (pantoprazole) 80 mg Route: IVP; Site: right antecubital; bb 22:30 Follow up: Response: No adverse reaction bb 23:16 Drug: NS 0.9% 1000 ml Route: IV; Rate: 125 ml/hr; Site: right antecubital; bb 09/23 02:01 Follow up: IV Status: Infusion continued upon transfer bb Outcome: 09/22 23:05 ER care complete, transfer ordered by ms3 09/23 02:01 Transferred by ground EMS to [facility], Transfer form completed. bb X-rays sent w/ patient. Condition: stable Instructed on the need for transfer. 02:02 Patient left the ED. bb Signatures: Dispatcher [employer] Christiane Magana, LUCERO RN bb Daniel Cintron DO DO ms3 Jacki Smith cs9 Celsa Deras [email or web address]
--- NOTE | 2021-09-22 23:06 | EDPHYS ---
Physician Documentation [facility] Name: Gilmer Mercado Age: 86 yrs Sex: Male : 1935 Arrival Date: 09/22/2021 Time: 20:03 Bed 23 Private MD: ED Physician Daniel Cintron HPI: 09/22 23:38 This 86 yrs old Male presents to ER via EMS with complaints of abdominal pain. ms3 Historical: - Allergies: 21:20 No Known Allergies; bb - Home Meds: 21:20 allopurinol 100 mg Oral tab [Active]; amiodarone 200 mg Oral tab 1 tab once daily bb [Active]; calcitrol [Active]; Eliquis 2.5 mg Oral tab 1 tab 2 times per day [Active]; finasteride 5 mg Oral tab 1 tab once daily [Active]; furosemide 40 mg Oral tab 1 tab once daily [Active]; gabapentin 300 mg Oral cap 2 caps twice a day [Active]; Humulin R 100 unit/mL soln 500 mL 10-20 units daily [Active]; levothyroxine oral 350 mcg tablet daily [Active]; ranitidine HCl 150 mg Oral tab [Active]; simvastatin 20 mg Oral tab 1 tab once daily [Active]; tamsulosin 0.4 mg Oral cp24 1 cap once daily [Active]; Toprol XL 25 mg Oral Tb24 1 tab twice a day [Active]; - PMHx: 21:20 BPH; Diabetes - IDDM; High Cholesterol; Hypertension; Pacemaker; PNUEMONIA; bb - 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 - Social history:: Smoking status: unknown. ROS: 09/23 00:11 Constitutional: Negative for fever, and chills. ENT: Negative for injury, pain, and ms3 discharge, Neck: Negative for injury, pain, and swelling, Respiratory: Negative for shortness of breath, cough, wheezing, and pleuritic chest pain, Abdomen/GI: Negative for abdominal pain, nausea, vomiting, diarrhea, and constipation, MS/Extremity: Negative for injury and deformity, Skin: Negative for injury, rash, and discoloration, Neuro: Negative for headache, weakness, numbness, tingling. Abdomen/GI: Positive for abdominal pain, constipation. Exam: 00:11 Constitutional: This is a well developed, well nourished patient who is awake, alert, ms3 and in no acute distress. Head/Face: Normocephalic, atraumatic. ENT: Nares patent. No nasal discharge, no septal abnormalities noted. Tympanic membranes are normal and external auditory canals are clear. Oropharynx with no redness, swelling, or masses, exudates, or evidence of obstruction, uvula midline. Mucous membranes moist. Neck: Trachea midline, no cervical lymphadenopathy. Supple, full range of motion without nuchal rigidity, or vertebral point tenderness. No Meningismus. Chest/axilla: Normal chest wall appearance and motion. Nontender with no deformity. Cardiovascular: Regular rate and rhythm with a normal S1 and S2. No gallops, murmurs, or rubs. Normal PMI, no JVD. No pulse deficits. Respiratory: Lungs have equal breath sounds bilaterally, clear to auscultation and percussion. No rales, rhonchi or wheezes noted. No increased work of breathing, no retractions or nasal flaring. Abdomen/GI: Soft, non-tender, with normal bowel sounds. No distension or tympany. No guarding or rebound. No evidence of tenderness throughout. Back: No spinal tenderness. No costovertebral tenderness. Full range of motion. Skin: Warm, dry with normal turgor. Normal color with no rashes, no lesions, and no evidence of cellulitis. Psych: Awake, alert, with orientation to person, place and time. Behavior, mood, and affect are within normal limits. Vital Signs: 09/22 20:30 BP 119 / 52; Pulse 70; Resp 12 S; Temp 97.6(O); Pulse Ox 96% on R/A; Weight 90.72 kg bb (R); Height 5 ft. 11 in. (180.34 cm) (R); Pain 5/10; 21:50 BP 101 / 45; Pulse 70; Resp 20 S; Pulse Ox 95% on R/A; bb 23:00 BP 103 / 44; Pulse 94; Resp 20 S; Pulse Ox 94% on R/A; bb 09/23 00:04 BP 108 / 42; Pulse 70; Resp 14; Pulse Ox 96% on R/A; bb 00:16 BP 108 / 42; Pulse 71; Resp 16 S; Pulse Ox 94% on R/A; bb 01:09 BP 107 / 61; Pulse 70; Resp 18 S; Pulse Ox 96% on R/A; bb 01:30 BP 105 / 50; Pulse 70; Resp 16 S; Pulse Ox 94% on R/A; bb 09/22 20:30 Body Mass Index 27.89 (90.72 kg, 180.34 cm) bb MDM: 09/22 20:22 Patient medically screened. ms3 09/23 00:11 Differential diagnosis: bowel obstruction, diverticulitis, gastritis, GI Bleed. Data ms3 reviewed: vital signs, nurses notes, lab test result(s), EKG, radiologic studies, CT scan. Data interpreted: quality assurance monitor body: rate is 94 beats/min, rhythm is regular, Interpretation: normal rate, normal rhythm. ED course: Discussed case with Dr Klein at [facility] and he accepts patient. All questions answered. Discussed plan with patient and his and they understand/ agree with plan. Patient remains in stable condition.. 01:06 Counseling: I had a detailed discussion with the patient and/or guardian regarding: the ms3 historical points, exam findings, and any diagnostic results supporting the discharge/admit diagnosis, lab results, radiology results, the need to transfer to another facility, for higher level of care, [facility] does not immediately have the required specialist. 09/22 20:23 Order name: CBC with Diff; Complete Time: 22:21 ms3 09/22 20:23 Order name: CMP; Complete Time: 22:21 ms3 09/22 20:23 Order name: Lipase; Complete Time: 22:21 ms3 09/22 20:23 Order name: Type And Screen; Complete Time: 23:20 ms3 09/22 23:19 Order name: COVID-19 SARS RT PCR (Document "Date of Onset" if Symptomatic) ms3 09/22 23:20 Order name: SARS-COV-2 RT PCR EDMS 09/22 20:23 Order name: IV Saline Lock; Complete Time: 20:48 ms3 09/22 20:23 Order name: Labs collected and sent; Complete Time: 20:48 ms3 09/22 21:41 Order name: Abdomen ; Complete Time: 22:21 EDMS Administered Medications: 09/22 21:30 Drug: ProTONIX (pantoprazole) 8 mg/hr Route: IV; Rate: 25 ml/hr; Site: right bb antecubital; 09/23 02:01 Follow up: IV Status: Infusion continued upon transfer bb 09/22 21:30 Drug: ProTONIX (pantoprazole) 80 mg Route: IVP; Site: right antecubital; bb 22:30 Follow up: Response: No adverse reaction bb 23:16 Drug: NS 0.9% 1000 ml Route: IV; Rate: 125 ml/hr; Site: right antecubital; bb 09/23 02:01 Follow up: IV Status: Infusion continued upon transfer bb Disposition Summary: 09/22/21 23:05 Transfer Ordered Transfer Location: Other Acute Care Facility ms3 Reason: Higher level of care ms3 Condition: Stable ms3 Problem: new ms3 Symptoms: are unchanged ms3 Accepting Physician: .(09/23/21 02:02) gisela Diagnosis - GI Bleed/ Gastrointestinal hemorrhage, unspecified ms3 Forms: - Medication Reconciliation Form ms3 - SBAR form ms3 Signatures: Dispatcher [employer] Christiane Magana, RN RN bb Daniel Cintron DO DO ms3 Corrections: (The following items were deleted from the chart) 09/22 21:41 20:25 Abdomen Pelvis W Con+CT.RAD.BRZ ordered. STEFFANY JETER 09/23 02:02 09/22 23:05 . ms3 bb
[2021-09-22] MEDS ORDERED: NA CHLORIDE 0.9% 1,000 ML ONE (23:17)
[2021-09-23 02:08] VITALS: TEMP 97.6
[2021-09-23 02:16] VITALS: BP 105/50; O2SAT 94
== END 2021-09-23 02:02 ==
LOC: ER 19:59
DX: K92.2 Gastrointestinal hemorrhage, unspecified (principal); K59.00 Constipation, unspecified; Z20.822 Contact with and (suspected) exposure to COVID-19; I10 Essential (primary) hypertension; E11.9 Type 2 diabetes mellitus without complications; E78.00 Pure hypercholesterolemia, unspecified; Z79.01 Long term (current) use of anticoagulants; Z79.4 Long term (current) use of insulin; Z95.0 Presence of cardiac pacemaker; Z95.1 Presence of aortocoronary bypass graft
CPT/HCPCS: 96365; 85025; 36415; 86900; 86850; 86901; 83690; 80053; 74176; 99285; 96366; U0003; C9113; J7050; J7030

== ENCOUNTER 2021-10-15 11:50 | Inpatient (IN) | payer OTHER, MEDICARE ==
--- NOTE | 2021-10-15 11:47 | R.PREADM ---
PRE-ADMISSION SCREENING FORM SCREENING DATE AND TIME 10/12/2021 10:01 (CDT) ANTICIPATED REHAB ADMISSION DATE 10/14/2021 REFERRING FACILITY [facility] REFERRAL DATE AND TIME 10/11/2021 10:01 (CDT) ACUTE ADMIT DATE 09/27/2021 Previous Rehabilitation(s): No. ATTENDING PHYSICIAN REFERRING PHYSICIAN REHAB FACILITY [facility] CLINICAL LIAISON Julianne York PHYSICIAN REVIEWER Dr. Justin Monsalve M.D. MR# [id number] NAME MARCELA ALCARAZ ADDRESS [address] [place] [address] PHONE [facility] [id number] DATE OF 1935 AGE 86 SSN# [id number] GENDER male MARITAL STATUS RACE white PREF. LANGUAGE (IF NON-CROATIAN) Setswana ADMIT FROM 01 - Home (private home/apt. board/care, assisted living, chcf, transitional living) PRE-HOSPITAL LIVING SETTING 01 - Home (private home/apt. board/care, assisted living, chcf, transitional living) HOME TYPE AND DETAILS Type of home: [facility] # of levels in the residence: 1 # of steps within the residence: 0 # of steps to enter the residence: 0 PRE-HOSPITAL LIVING WITH Family/Relatives FAMILY SUPPORT Yes PRIMARY FAMILY CONTACT NAME RYLIE ALCARAZ PRIMARY FAMILY CONTACT PHONE PRIMARY FAMILY CONTACT RELATIONSHIP Son PHONE PRIMARY FAMILY CONTACT ON ADM.? no IS PRIMARY FAMILY CONTACT AUTH. REP.? no 1ST EMERGENCY CONTACT RYLIE ALCARAZ 1ST CONTACT PHONE 1ST CONTACT RELATIONSHIP Son PHONE 1ST CONTACT ON ADM. no IS 1ST CONTACT AUTH. REP.? no PHONE 2ND CONTACT ON ADM.? no PATIENT EMPLOYMENT STATUS Retired (for age) PATIENT EMPLOYER No Employer PAYOR INFORMATION: 1ST PAYOR NAME MEDICARE 1ST PAYOR PHONE 1ST PAYOR INJURY/ILLNESS DUE TO ACCIDENT? No ANOTHER REPUBLICAN RESPONSIBLE? No PRIMARY REHAB/ACUTE DIAGNOSIS: Muscle weakness (generalized) (M62.81) ONSET DATE 10/12/2021 REHAB IMPAIRMENT CATEGORY (TAI): 20 Miscellaneous (Misc) does NOT meet 60% rule PRIMARY DIAGNOSIS-RELATED SURGERIES: N/A INTERVENTIONS: - CHF monitoring of patient symptoms and medication management by physician Daily weights will be obtained - A-Fib Vitals will be monitored regularly and medications administered as indicated by Physician - HYPERTENSION Blood pressure will be regularly assessed and medications administered as per physician recommendlindy ns. - ANEMIA - HYPERLIPIDEMIA Patient is to continue on administered medications per MD - Diabetes Diet will be customized to manage diabetic needs. Monitor blood glucose levels and administer medication as indicated by Physician - Dementia Proper monitoring of patient to ensure safety. Pressure Alarms in place Medications administered as indicated by physician. RISK FOR COMPLICATIONS: - Skin Breakdown Nursing will assess skin daily using assessment tool and will place on Skin Breakdown Precautions as Indicated per protocol Current pressure sore present and wound care is required - FALLS Patient will be evaluated for Fall Precautions and will be placed on Fall Precautions as indicated pe r protocol. - SHORTNESS OF BREATH medication management by physician - WOUNDS Nursing will assess wounds daily using assessment tools and work on Skin Breakdown Precautions as In dicated per protocol - Weakness Nursing and therapy will help to get patient stronger Regular therapeutic activity and exercise Strengthening exercises to be performed - CARDIC monitoring heart rate/signs and symptoms for cardiac distress - ANEMIA - Diabetic Complications Regular monitoring and management of blood glucose levels. pt will receive a specialized diet to help manage blood glucose levels - CVA pt's blood pressures have been inconsistent and require monitoring and medication management as inidi cated by physician. - Gout Monitor symptoms and manage via medication as indicated by physician. SUMMARY OF ACUTE HOSPITALIZATION: Pt. is a 86 yo Right-handed white male. On 10/12/2021 he was admitted to [facility] with diagnosis Muscle weakness (generalized) ( M62.81). His impairment category is Debility 16 - Debility (16). Pre-morbidly, Pt. was independent/mod-I in Locomotion, Safety Awareness, Social Cognition, Transfers Control, and Balance; and he had good Transfers Control, Sphincter Control, Self-Care, Endurance, and Communication. Currently, he has deficits of Locomotion, Safety Awareness, Social Cognition, Balance, Transfers Cont rol, Sphincter Control, Self-Care, Communication, and Endurance. Pt. is now referred to [facility] for acute in-patient rehabilitation in order to maximize patient's functional independence in activities of daily living, strength, ROM, and mobi lity. Patient has realistic goal of being discharged at assistance level 7-Ind to reside at Home with Fami ly/Relatives. PAST MEDICAL HISTORY CHF COPD DIABETES HYPERTENSION HYPERLIPIDEMIA Gout, unspecified (M10.9) GERD HYPOTHYROIDISM ACUTE RENAL INSUFFICIENCY WOUNDS ON HIS BOTTOM ANEMIA AFIB WEAKNESS FALLS CKD STAGE 4 DISTURBANCE SLEEP APNEA ALZHEIMERS DISEASE PAST SURGICAL HISTORY: CAD W CABG TOE AMPUTATION MEDICATION ALLERGIES: No Known Drug Allergies (NKDA) ENVIRONMENTAL ALLERGIES: - Substance Allergies None Known - Other Allergies None Known CODE STATUS: Full code WEIGHT/HEIGHT/BMI: WEIGHT 220lbs HEIGHT 5'11 BMI 30.7 DIET: - Diet Type Regular - Diet - Solid Texture Regular - Diet - Liquid Texture Regular - Tube Feed N/A SKIN DIAGRAM: on Buttocks; extent - small; stage - NS(Not Stageable). Treatment - . on ; extent - small; stage - NS(Not Stageable). Treatment - Per Physician's Orders. REVIEW OF SYSTEMS: - Gen Alert and awake Lying in bed No apparent distress Oriented to: person, time, and place - Vital Signs SBP/DBP: 130/66 Pulse: 85 Resp: 18 Vital signs stable, afebrile - CVS RRR VITAL SIGNS SBP/DBP: 130/66 Pulse: 85 Resp: 18 Vital signs stable, afebrile MEDICATIONS/TREATMENT: Other- See attached MAR (Medication Administration Record). CURRENT SPHINCTER CONTROL: Pre-hospital bladder status: unspecified # of bladder accidents in the last 7 days prior to screenin Pre-hospital bowel status: unspecified # of bowel accidents in the last 7 days prior to screenin Last Bowel Movement Date: 10/12/2021 CURRENT LOCOMOTION STATUS: distance walked 50 x 2 feet with rolling walker DETAILED CURRENT FUNCTIONAL STATUS: - Bladder accident frequency: 7-Ind - No accidents in the past 7 days - Bowel accident frequency: 7-Ind - No accidents in the past 7 days - Walking score based on distance walked: 0(N/A) - Wheelchair score based on distance traveled: 0(N/A) QI SCORES: - Self-Care A. Eating 03-Partial/moderate assistance B. Oral hygiene 03-Partial/moderate assistance C. Toileting hygiene 02-Substantial/maximal assistance E. Shower/bathe self 02-Substantial/maximal assistance F. Upper body dressing 03-Partial/moderate assistance G. Lower body dressing 02-Substantial/maximal assistance H. Putting on/taking off footwear 88-Not attempted due to medical condition or safety concerns - Mobility A. Roll left and right 03-Partial/moderate assistance B. Sit to lying 03-Partial/moderate assistance C. Lying to sitting on side of bed 03-Partial/moderate assistance D. Sit to stand 03-Partial/moderate assistance E. Chair/[id number]-[id number] transfer 03-Partial/moderate assistance F. Toilet transfer 02-Substantial/maximal assistance G. Car transfer 88-Not attempted due to medical condition or safety concerns I. Walk 10 feet 03-Partial/moderate assistance J. Walk 50 feet with two turns 88-Not attempted due to medical condition or safety concerns K. Walk 150 feet 88-Not attempted due to medical condition or safety concerns L. Walking 10 feet on uneven surfaces 88-Not attempted due to medical condition or safety concerns M. 1 step (curb) 88-Not attempted due to medical condition or safety concerns N. 4 steps 88-Not attempted due to medical condition or safety concerns O. 12 steps 88-Not attempted due to medical condition or safety concerns P. Picking up object 88-Not attempted due to medical condition or safety concerns R. Wheel 50 feet with two turns 88-Not attempted due to medical condition or safety concerns S. Wheel 150 feet 88-Not attempted due to medical condition or safety concerns - Bladder and Bowel Bladder continence Bowel continence - Endurance Fair - Balance Poor - Safety Awareness Fair CURRENT FUNC. DEFICITS: Self-Care, Mobility, Endurance, Balance, and Safety Awareness CURRENT / PREVIOUS ASSISTIVE DEVICES: Rolling Walker HISTORY OF FALLS. HAS THE PATIENT HAD TWO OR MORE FALLS IN THE PAST YEAR OR ANY FALL WITH INJURY IN T HE PAST YEAR?: Yes PRIOR SURGERY. DID THE PATIENT HAVE MAJOR SURGERY DURING THE 100 DAYS PRIOR TO ADMISSION?: No THERAPY NOTES FROM ACUTE CARE: Attached. SPECIAL NEEDS: - Safety Concerns Skin breakdown precautions needed due to skin breakdown risk - Wound Complex wound care - Stage 0 PRECAUTIONS: - Fall Precaution SAFTY AND FALL PATIENT NEEDS ACTIVE AND ONGOING THERAPEUTIC INTERVENTION OF MULTIPLE THERAPY DISCIPLINES, INCLUDING: - Dietary and Nutrition Adequate Nutrition. Nutritional Education. Nutritional Supplements. Evaluate and Treat. - Occupational Therapy Cognitive Retraining. Patient needs Occupational Therapy for a daily minimum of 1.5 hours at least 5 out of 7 days, to improve Activities of Daily Living, including: Eating, Grooming, Bathing, Dressing, Toileting, Toilet Transfers, Community Reintegration, Higher functional activities, Adaptive Equipme nt, Splinting, Household Tasks, and Other activities as determined. Visual Perceptual Training. Evalu ate and Treat. Safety Awareness. Transfer Training. ADL Training. Patient/Family Education. UE Streng thening. Household Tasks. - Speech Therapy Cognitive Training. Expressive Language Skills. Memory Strategies. Patient needs Speech Therapy for a daily minimum of 1.5 hours at least 5 out of 7 days, to improve: Swallowing, Cognition, Language Ski lls, and Compensatory Strategies. Receptive Language Skills. Speech Intelligibility Training. Evaluat e and Treat. - Physical Therapy Patient needs Physical Therapy for a daily minimum of 1.5 hours at least 5 out of 7 days, to improve: Mobility, Strengthening, Transfers, Stretching, ROM, Endurance, Ability to manage stairs, Gait, and Balance. Mobility Training. Safety Awareness. Gait Training. Balance Training. Transfer Training. Tori luate and Treat. LE Strengthening. Modalities Training. PATIENT NEEDS CLOSE MEDICAL SUPERVISION BY A REHABILITATION PHYSICIAN FOR: Coordination of Treatment Team Wound Care Medical and Co-Morbidity Management Pain Management DVT Management Diabetes Management PATIENT REQUIRES 24X7 REHAB NURSING FOR MEDICAL AND FUNCTIONAL MGT. OF THE FOLLOWING DEFICITS: Disease Management Medication Management Patient requires 24x7 Rehabilitation Nursing for: Pain Issues, Identifying and preventing risk factor s, Monitoring and reporting current medical conditions, Assisting with ambulation and transfer, Sai ting with all ADL-s, Teaching patients about disease process and medications, Family teaching, Provid ing safe environment, Bowel and Bladder Issues, Skin Integrity, and Medication Management Patient/Family Education Providing Safe Environment Skin Integrity Pain Management Bowel and Bladder Management PATIENT REQUIRES INTENSIVE, COORDINATED INTERDISCIPLINARY APPROACH TO REHAB: Arranging Home Equipment/Services Discharge Planning Family Intervention/Training Patient needs Dietary and Nutrition Services for: Adequate Nutrition, Nutritional Supplements, and Nu tritional Education Patient needs Director Strategy and/or Case Management for: Discharge Planning, Arranging Home Equipmen t or Services, and Family Interventions Director Strategy/Case Management PATIENT REHAB POTENTIAL: AmarilysXenia ALCARAZ is able and expected to receive 3 hours of individualized therapy daily on at least 5 of vernell ry 7 days Chris ALCARAZ's prognosis for significant practical improvement within a reasonable period of time appears Good Expected level of measurable improvement will be of a practical value to Chris ALCARAZ's functional capaci ty or adaptations to impairments Has a viable Discharge Plan Medically appropriate; condition is sufficiently stable to participate in intensive rehab program DISCHARGE PLAN: - Estimated Length of Stay (days) 13. - Consensus on plan Discharge plan has been discussed with primary caregiver. Patient/Family is in agreement with the rodrigo n. Primary caregiver is in agreement with the plan. - Patient/Family Goals Return home independently. - Planned Living Setting Upon Discharge Home, to live with Family/Relatives. Transitional Living. RECOMMENDED CARE LEVEL: IRF RECOMMENDATION DETAILS: Recommended Admission to Comprehensive Rehabilitation Program to Increase Functional [place] SCREENER'S COMPLETENESS CONFIRMATION: - Screening Confirmation The patient data collection on this preadmission screening form is finished PHYSICIANS REVIEW AND ADMISSION DETERMINATION Admit - Based on my review of the Pre-Admission Screening results, in my medical judgment and experie nce, I concur with the findings and recommend admission to [facility], as this patient requires an IRF level of care. SIGNATURE PANEL: Utility System Repairer - [electronically] signed by Julianne York on 10/15/2021 at 10:40 (CDT) Utility System Repairer - [electronically] signed by Emiliano Mancini PT on 10/15/2021 at 11:25 (CDT) Physician Reviewer - [electronically] signed by Dr. Justin Monsalve M.D. on 10/15/2021 at 11:46 (CDT )
--- OUTSIDE RECORDS SUMMARY | 2021-10-15 12:01 | XMS REPORT | Continuity of Care Document ---
:1935 Author Organization [facility] t Address [address] [place] [address] Care Team Providers Name Role Phone Vianey SUÁREZ Primary Care Physician Unavailable ABBIE Attending Clinician Unavailable LINDA LEIVA Attending Clinician Unavailable Nydia YOU, S Attending Clinician Gladys JAQUEZ Attending Clinician Unavailable LUBNA GONZALEZ Attending Clinician Unavailable JHON ALFARO Attending Clinician Unavailable JOSE ARMANDO Attending Clinician [...] Attending Clinician Unavailable KELVIN Attending Clinician Unavailable JHON ALFARO Admitting Clinician Unavailable INGRID Admitting Clinician Unavailable [...] Date Gladys luciano MEDICARE PART A AND [id number] 2016 B 00:00:00 MEDICARE A B [id number] 2001 00:00:00 [facility] [id number] 2021 HEALTHCARE 00:00:00 BCBS PPO POS EPO [id number] 2015 CHOICE 00:00:00 Problems Condition Condition Condition Status Onset Resolution Last Treating Co mments Source Name Details Category Date Date Treatment Clinician Date No known No known Disease Unive rs active active ity of problems problems [facility] [place] Allergies, Adverse Reactions, Alerts Allergy Allergy Status Severity Reaction(s) Onset Inactive Treating Comm ents Source Name Type Date Date Clinician NO KNOWN Allergy Active [facility] NO KNOWN Drug Active [facility] ALLERGIE Class ity of S [facility] [place] Social History Social Habit Start Date Stop Date Quantity Comments Source Exposure to Not sure [facility]-CoV-2 [facility] (event) Branch Alcohol intake 2021-10-02 2021-10-02 [facility] 00:00:00 00:00:00 non-drinker of [facility] alcohol Branch (finding) Tobacco use and 2017-04-08 2017-04-08 Never used [facility] of exposure 00:00:00 00:00:[address] [facility] [place] Sex Ass[birth year] At [birth year] [facility] 00:00:00 00:00:[address] [facility] [place] Smoking Status Start Date Stop Date Source Never smoker [facility] Medications Ordered Filled Start Stop Current Ordering Indication Dosage Frequency Signature Comments Components Source Medication Medication Date Date Medication? Clinician (SIG) Name Name ramelteon Yes 8mg Take 8 mg UT [...] 16:47: (one) time 50 each day. cephalexin 1-0 Yes 250mg Q.25D Take 250 U T (Keflex) 6-28 mg by Health 250 MG 16:47: mouth 4 capsule 50 (four) times a day. febuxostat 2020-0 Yes Take by UT (Uloric) 40 6-28 mouth. Health MG tablet 16:47: 50 pantoprazol 2020-0 Yes 40mg Take 40 mg UT e 6-28 by mouth 1 Health (ProtoNix) 16:47: (one) time 40 MG EC 50 each day tablet before breakfast. Do not crush, chew, or split. levothyroxi 2020-0 Yes Take by UT ne 6-28 mouth 1 Health (Tirosint) 16:47: (one) time 200 MCG 50 each day capsule before breakfast. gabapentin 202-0 Yes 300mg Q.5D Take 300 UT (Neurontin) 6-28 mg by Health 300 MG 16:47: mouth 2 capsule 50 (two) times a day. ramelteon 202-0 Yes 8mg Take 8 mg UT (Rozerem) 8 6-28 by mouth Heal th MG tablet 16:47: every 50 night. donepezil 2021-0 Yes 10mg Take 10 mg UT (Aricept) [...] mouth. Health MG tablet 16:47: 50 pantoprazol 2020-0 Yes 40mg Take 40 mg UT e [...] MG tablet 16:47: every 50 night. donepezil 2021-0 Yes 10mg Take 10 mg UT (Aricept) [...] 16:47: (one) time 50 each day. cephalexin Yes 250mg Q.25D Take 250 U T [...] 2 capsule 50 (two) times a day. finasteride Yes TAKE 1 UT (Proscar) 5 6-28 TABLET Health MG tablet 16:47: DAILY 02 finasteride 0 Yes TAKE 1 UT (Proscar) 5 6-28 TABLET Health MG tablet 16:47: DAILY 02 finasteride 0 Yes TAKE 1 UT (Proscar) 5 6-28 TABLET Health MG tablet 16:47: DAILY 02 finasteride 0 Yes TAKE 1 UT (Proscar) 5 6-22 TABLET Health MG tablet 14:50: DAILY 43 carvedilol 0 Yes 6.25mg Q.5D Take 6.25 UT (Coreg) 5-25 mg by Health 6.25 MG 00:00: mouth 2 tablet 00 (two) times a day. carvedilol 0 Yes 6.25mg Q.5D Take 6.25 UT (Coreg) [...] capsule 00 (one) time each day. calcitriol 202-0 Yes .25ug QD Take 0.25 U T [...] DAILY ity of mg tablet 10:04: NEEDED [place] [address] Medical Branch Dexlansopra 2016-07 Yes Take by Un josh zole 0-03 mouth. ity of (DEXILANT) 10:04: [place] 60 [facility] Medical capsule Branch amiodarone 2016-07 Yes 200mg Take 200 Un josh 200 mg 0-03 mg by ity of tablet 10:04: mouth. [place] [address] Medical Branch aspirin 325 2016-07 Yes 325mg Take 325 U nivers mg tablet 0-03 mg by ity of 10:04: mouth. [place] [address] Medical Branch Azelastine 2016-07 Yes Use in Univ ers (ASTEPRO) 0-03 each ity of 0.15 % 10:04: nostril. [place] (205.5 mcg) Medical nasal spray Branch rosuvastati 2016-07 Yes 1 TABLET Un josh n (CRESTOR) 0-03 DAILY ity of 10 mg 09:38: [place] [address] Medical Branch doxazosin 4 2016-07 Yes 2mg Take 2 mg U nivers mg tablet 0-03 by mouth. ity o f 09:38: [address] Branch fosinopril 2016-07 Yes 20mg Take 20 mg U nivers 20 mg 0-03 by mouth. ity of tablet 09:38: [address] Branch cephALEXin Yes TAKE ONE Uni vers 500 mg 9-17 (1) ity of capsule 00:00: [place] 00 BY MOUTH Medical EVERY SIX Branch HOURS FOR 10 DAYS. CONTOUR Yes Univers NEXT STRIPS 8-08 ity of strip 00:00: [place] 00 [facility] Branch allopurinol Yes Univer s 100 mg 7-27 ity of tablet 00:00: [place] 00 [facility] Branch calcitriol Yes TAKE ONE Uni vers [...] Time Observation Value Comments Source Systolic blood 2021-10-02 19:26:00 106 mm[facility]Hg[facility] Diastolic blood 2021-10-02 19:26:00 66 mm[facility]Hg[facility] 2021-10-02 19:26:00 72 /min [facility] Body height 2021-10-02 19:26:00 180.3 cm [facility] Body weight 2021-10-02 19:26:00 90.719 kg [facility] BMI 2021-10-02 19:26:00 27.89 kg/m2 [facility] Oxygen saturation 2021-10-02 19:26:00 97 /min [facility] in Arterial blood Medical Br anch by Pulse oximetry HEIGHT 2021-09-23 04:47:00 180 cm WEIGHT 2021-09-23 04:31:00 92.08 kg HEIGHT 2021-09-23 04:47:00 180 cm WEIGHT 2021-09-23 04:31:00 92.08 kg Systolic blood 2021-01-01 16:47:00 116 mm[Hg] UT [...] Type Clinicians Facility Department ID 2020-11-13 Outpatient BAOGARRY [facility] [id number] [place] 15:45[facility] 2019-11-18 Outpatient ABBIE [facility] CAR 7512 M [facility] 08:31:52 VIRAJ 2021-10-02 2021-10-02 [facility] [id number] Univers 15:30:00 15:31:03 Visit [facility] [id number] [facility] [id number] Anruag as SHALONDA?BLEA [phone] [address] MEDICAL OFFICE BUILDING 2021-10-02 2021-10-02 Outpatient Anabel JAQUEZ [facility] [id number] Univers 15:30:00 15:31:03 [facility] 2021-09-23 2021-09-28 Inpatient ER SHIEH, [facility] [id number] [facility] 03:10:00 10:36:00 GARRETT 2021-07-30 2021-07-30 [facility] [id number] [place] 00:00:00 00:00:00 RICHARD Workman [facility] 2021-06-27 2021-07-04 [id number] [place] 00:00:00 00:00:00 ALBERT [facility] 2021-06-05 2021-06-05 Outpatient EMELY DOAN [facility] [id number] [place] 00:00:00 00:00:[address] 2021-06-05 2021-06-05 Outpatient EMELY DOAN [facility] [id number] [place] 00:00:00 00:00:[address] 2021-05-03 2021-05-03 Outpatient JOSE ARMANDO, [facility] [id number] [place] 00:00:00 00:00:00 RICHARD [address] 2021-03-28 2021-03-28 Outpatient JOSE ARMANDO, [facility] [id number] [place] 00:00:00 00:00:00 RICHARD [address] 2021-03-02 2021-03-02 Outpatient EMELY DOAN [facility] [id number] [place] 00:00:00 00:00:[address] 2021-01-12 2021-01-12 Outpatient MAIRA CHEN [facility] [id number] [place] 00:00:00 00:00:[address] 2021-01-03 2021-01-03 Outpatient RADHA, [facility] [id number] [place] 00:00:00 00:00:00 ALEJANDRO [address] 2021-01-03 2021-01-03 Outpatient RADHA, [facility] [id number] [place] 00:00:00 00:00:00 ALEJANDRO [address] 2021-01-01 2021-01-01 Office TRINH Leiva 6400 [id number] 11:18:17 12:10:[address] [id number] 2021-01-01 2021-01-01 Office TRINH Leiva 6400 [id number] DC 11:18:17 12:10:[address] [id number] Health [id number] 2020-12-27 2020-12-27 Telephone TRINH Leiva [facility] [id number] DC 00:00:00 00:00:00 Viraj SUGAR [id number] [facility] [id number] [address] [id number] AND 1 WOMENS 2020-11-10 2020-11-10 Outpatient EMELY DOAN [facility] [id number] [place] 00:00:00 00:00:[address] 2020-11-01 2020-11-01 Outpatient JOSE ARMANDO [facility] [id number] [place] 00:00:00 00:00:00 RICHARD [address] 2020-10-23 2020-10-27 Inpatient AIXA [facility] 064 [id number] [place] 00:00:00 00:00:00 PAULY [address] 2020-09-22 2020-09-22 Outpatient EMELY DOAN [facility] [id number] [place] 00:00:00 00:00:[address] 2020-08-29 2020-09-11 Inpatient AIXA [facility] [id number] [place] 00:00:00 00:00:00 PAULY [address] 2020-08-25 2020-08-31 Outpatient EMELY DOAN [facility] [id number] [place] 00:00:00 00:00:[address] 2020-08-15 2020-08-19 Inpatient XU [facility] 064 [id number] [place] 00:00:00 00:00:00 MARIAH [address] 2020-07-28 2020-07-28 Outpatient EMELY DOAN [facility] [id number] [place] 00:00:00 00:00:[address] 2020-07-28 2020-07-28 Outpatient EMELY DOAN [facility] [id number] [place] 00:00:00 00:00:[address] 2020-07-14 2020-07-14 Outpatient GUSTAVO MAIRA [facility] [id number] [place] 00:00:00 00:00:[address] 2020-07-13 2020-07-13 Outpatient JOSE ARMANDO [facility] [id number] [place] 00:00:00 00:00:00 RICHARD [address] 2020-07-13 2020-07-13 Outpatient MARIA EUGENIA [facility] [id number] [place] 00:00:00 00:00:00 AYA [address] 2020-07-12 2020-07-12 Outpatient [facility] [id number] [place] 00:00:00 00:00:[address] 2020-05-26 2020-05-26 Outpatient EMELY DOAN [facility] [id number] [place] 00:00:00 00:00:[address] 2020-05-23 2020-05-23 Outpatient DELAFLOR-SA [facility] [id number] [place] 00:00:00 00:00:00 NTAANA, [address] 2020-05-08 2020-05-18 Inpatient KEENAN [facility] 060 [id number] [place] 00:00:00 00:00:00 ANETTE [address] 2020-05-05 2020-05-05 Outpatient EMELY DOAN [facility] [id number] [place] 00:00:00 00:00:[address] 2020-05-03 2020-05-03 Outpatient JOSE ARMANDO [facility] [id number] [place] 00:00:00 00:00:00 RICHARD [address] 2020-04-26 2020-04-26 Outpatient ALIDA [facility] 427 [id number] [place] 00:00:00 00:00:00 ASHRITH [address] 2020-04-24 2020-04-24 Outpatient EMELY DOAN [facility] [id number] [place] 00:00:00 00:00:[address] 2020-04-14 2020-04-14 Outpatient EMELY DOAN [facility] [id number] [place] 00:00:00 00:00:[address] 2020-04-03 2020-04-03 Outpatient Daniel_T VFP VFP [id number] 03-26 [facility] 01:57:00 01:57:00 [id number] Family Practic e 2020-03-17 2020-03-17 Outpatient EMELY DOAN [facility] [id number] [place] 00:00:00 00:00:[address] 2020-03-09 2020-03-09 Outpatient DELAFLOR-SA [facility] [id number] [place] 00:00:00 00:00:00 NTAANA, [address] 2020-02-24 2020-03-02 Inpatient EMELY DOAN [facility] 021 [id number] [place] 00:00:00 00:00:[address] 2020-02-23 2020-02-23 Outpatient EMELY DOAN [facility] [id number] [place] 00:00:00 00:00:[address] 2020-02-11 2020-02-11 Outpatient EMELY DOAN [facility] [id number] [place] 00:00:00 00:00:[address] 2020-02-04 2020-02-04 Outpatient JOSE ARMANDO [facility] [id number] [place] 00:00:00 00:00:00 RICHARD [address] 2020-01-20 2020-01-25 Inpatient SAVANA, [facility] 064 [id number] [place] 00:00:00 00:00:00 AMITKUMAR 229 Meth zafar 2020-01-12 2020-01-12 Outpatient ALBERT CHENRY [facility] [id number] [place] 00:00:00 00:00:[address] 2019-12-31 2019-12-31 Outpatient EMELY DOAN [facility] [id number] [place] 00:00:00 00:00:[address] 2019-12-31 2019-12-31 Outpatient EMELY DOAN [facility] [id number] [place] 00:00:00 00:00:[address] 2019-12-27 2019-12-27 Outpatient TRISHA [facility] [id number] [place] 00:00:00 00:00:00 TRISHA [address] 2019-12-17 2019-12-18 Outpatient SOTO, [facility] 736 [id number] [place] 00:00:00 00:00:00 [facility] [address] 2019-11-18 2019-11-18 Outpatient KELVIN, [facility] 395 [id number] [place] 00:00:00 00:00:00 MAHWASH [address] 2019-11-04 2019-11-04 Outpatient JOSE ARMANDO, [facility] [id number] [place] 00:00:00 00:00:00 RICHARD [address] 2019-10-19 2019-10-19 Outpatient JOSE ARMANDO, [facility] [id number] [place] 00:00:00 00:00:00 RICHARD [address] 2019-09-17 2019-09-17 Outpatient EMELY DOAN [facility] [id number] [place] 00:00:00 00:00:[address] 2019-09-02 2019-09-09 Inpatient AIXA, [facility] 060 [id number] [place] 00:00:00 00:00:00 PAULY [address] Results Test Description Test Time Test Comments Results Result Comments Source BLOOD CULTURE 2021-09-28 10:00:39 Test Item Value Reference Range Interpretation Comme nts CULTURE (BEAKER) (test code = 1095) No growth in 5 days BLOOD [id number] 10:00:38 Test Item Value Reference Range Interpretation Comments CULTURE (BEAKER) (test No growth in 5 days code = 1095) [id number] 08:17:33 Test Item Value Reference Range Interpretation Comments MAGNESIUM (BEAKER) 1.8 mg/dL 1.5-3.0 Specimen slightly (test code = 627) hemolyzed Sales Development Director ID - DSENSONOperator ID - DSENSONOperator ID - DSENSONOperator ID - DSENSONBASIC METABOLIC [id number] 05:35:07 Test Item Value Reference Range Interpretation Comments SODIUM (BEAKER) 139 meq/L 135-148 (test code = 381) POTASSIUM (BEAKER) 3.6 meq/L 3.6-5.5 Specimen slightly (test code = 379) hemolyzed CHLORIDE (BEAKER) 101 meq/L 98-106 (test code = 382) CO2 (BEAKER) (test 24 meq/L 20-29 code = 355) BLOOD UREA NITROGEN 21 mg/dL 10-26 (BEAKER) (test code = 354) CREATININE (BEAKER) 1.70 mg/dL 0.50-1.20 H Specimen slightly (test code = 358) hemolyzed GLUCOSE RANDOM 103 mg/dL 70-110 (BEAKER) (test code = 652) CALCIUM (BEAKER) 7.6 mg/dL 8.5-10.5 L (test code = 697) EGFR (BEAKER) (test 38 mL/min/1.73 ESTIMA RAISA GFR IS code = 1092) sq m NOT ACCURATE CREATININE CLEARANCE IN PREDICTING GLOMERULAR FILTRATION RATE . ESTIMATED GFR I S NOT APPLICABLE FOR DIALYSIS PATIEN TS. Sales Development Director ID - [id number] ID - [id number] ID - [id number] ID - [id number] ID - [id number] ID - [id number] ID - CGOX97Lzbybxan ID - [id number] ID - YRTH29Ekkaiyou ID - VZRV32Vipakhua ID - [id number] ID - [id number] ID - [id number] W/PLT COUNT & AUTO [id number] 05:04:38 Test Item Value Reference Range Interpretation Comments WHITE BLOOD CELL COUNT (BEAKER) 8.5 K/ L 4.0-10.0 (test code = 775) RED BLOOD CELL COUNT (BEAKER) 3.52 M/ L 4.20-5.80 L (test code = 761) HEMOGLOBIN (BEAKER) (test code = 9.7 GM/DL 13.0-16.8 L 410) HEMATOCRIT (BEAKER) (test code = 31.1 % 36.0-50.0 L 411) MEAN CORPUSCULAR VOLUME (BEAKER) 88.4 fL 82.0-99.0 (test code = 753) MEAN CORPUSCULAR HEMOGLOBIN 27.6 pg 27.0-33.0 (BEAKER) (test code = 751) MEAN CORPUSCULAR HEMOGLOBIN CONC 31.2 GM/DL 32.0-36.0 L (BEAKER) (test code = 752) RED CELL DISTRIBUTION WIDTH 17.9 % 12.0-15.0 H (BEAKER) (test code = 412) PLATELET COUNT (BEAKER) (test 227 K/CU MM 150-430 code = 756) MEAN PLATELET VOLUME (BEAKER) 10.6 fL 6.0-11.5 (test code = 754) NUCLEATED RED BLOOD CELLS 0 /100 WBC 0-0 (BEAKER) (test code = 413) NEUTROPHILS RELATIVE PERCENT 50 % (BEAKER) (test code = 429) LYMPHOCYTES RELATIVE PERCENT 36 % (BEAKER) (test code = 430) MONOCYTES RELATIVE PERCENT 8 % (BEAKER) (test code = 431) EOSINOPHILS RELATIVE PERCENT 5 % (BEAKER) (test code = 432) BASOPHILS RELATIVE PERCENT 1 % (BEAKER) (test code = 437) NEUTROPHILS ABSOLUTE COUNT 4.23 K/ L 1.80-8.00 (BEAKER) (test code = 670) LYMPHOCYTES ABSOLUTE COUNT 3.00 K/ L 1.48-4.50 (BEAKER) (test code = 414) MONOCYTES ABSOLUTE COUNT (BEAKER) 0.68 K/ L 0.00-1.30 (test code = 415) EOSINOPHILS ABSOLUTE COUNT 0.46 K/ L 0.00-0.50 (BEAKER) (test code = 416) BASOPHILS ABSOLUTE COUNT (BEAKER) 0.06 K/ L 0.00-0.20 (test code = 417) IMMATURE GRANULOCYTES-RELATIVE 0 % 0-0 PERCENT (BEAKER) (test code = 2801) POCT-GLUCOSE [id number] 04:47:27 Test Item Value Reference Range Interpretation Comments POC-GLUCOSE METER 98 mg/dL 70-110 : TESTED A T [facility] 1317 (BEAKER) (test code = [address]) [place] [address]: Sales Development Director/Techni kate ID = [id number] for Math ew, Michelle POCT-GLUCOSE [id number] 23:00:37 Test Item Value Reference Range Interpretation Comments POC-GLUCOSE METER 100 mg/dL 70-110 : TESTED A T [facility] [address]17 (BEAKER) (test code [address], = 1538) [place] [address]: Sales Development Director/Techni kate ID = [id number] for Math ew, Michelle POCT-GLUCOSE [id number] 15:20:37 Test Item Value Reference Range Interpretation Comments POC-GLUCOSE METER 126 mg/dL 70-110 H : TESTED A T [facility] [address] (BEAKER) (test code [address], = 1538) [place] [address]: Sales Development Director/Techni kate ID = [id number] for Will iams, Caro POCT-GLUCOSE [id number] 11:52:27 Test Item Value Reference Range Interpretation Comments POC-GLUCOSE METER 94 mg/dL 70-110 : TESTED A T [facility] [address] (BEAKER) (test code = [address], [address]) [place] [address]: Sales Development Director/Techni kate ID = [id number] for Will iams, Caro POCT-GLUCOSE [id number] 06:47:47 Test Item Value Reference Range Interpretation Comments POC-GLUCOSE METER 92 mg/dL 70-110 : TESTED A T [facility] [address] (BEAKER) (test code = [address]) [facility] [place] [address]: Sales Development Director/Techni kate ID = [id number] for Bridget Salas BASIC METABOLIC [id number] 05:34:54 Test Item Value Reference Range Interpretation Comments SODIUM (BEAKER) 140 meq/L 135-148 (test code = 381) POTASSIUM (BEAKER) 3.6 meq/L 3.6-5.5 Specimen moderately (test code = 379) hemolyzed CHLORIDE (BEAKER) 101 meq/L 98-106 (test code = 382) CO2 (BEAKER) (test 25 meq/L 20-29 code = 355) BLOOD UREA NITROGEN 22 mg/dL 10-26 (BEAKER) (test code = 354) CREATININE (BEAKER) 1.71 mg/dL 0.50-1.20 H Specimen moderately (test code = 358) hemolyzed GLUCOSE RANDOM 85 mg/dL 70-110 (BEAKER) (test code = 652) CALCIUM (BEAKER) 7.2 mg/dL 8.5-10.5 L (test code = 697) EGFR (BEAKER) (test 38 mL/min/1.73 ESTIMA RAISA GFR IS code = 1092) sq m NOT ACCURATE CREATININE CLEARANCE IN PREDICTING GLOMERULAR FILTRATION RATE . ESTIMATED GFR I S NOT APPLICABLE FOR DIALYSIS PATIEN TS. Sales Development Director ID - NSUVAGIYAOperator ID - NSUVAGIYAOperator ID - NSUVAGIYAOperator ID - NSUVAGIYAOperatorID - NSUVAGIYAOperator ID - NSUVAGIYAOperator ID - NSUVAGIYAOperator ID - NSUVAGIYAOperator ID - NSUVAGIYAOperator ID - NSUVAGIYAOperator ID - NSUVAGIYAOperator ID - NSUVAGIYAOperator ID - NSUVAGIYA CBC W/PLT COUNT & AUTO [id number] 05:03:55 Test Item Value Reference Range Interpretation Comments WHITE BLOOD CELL COUNT (BEAKER) 8.1 K/ L 4.0-10.0 (test code = 775) RED BLOOD CELL COUNT (BEAKER) 3.56 M/ L 4.20-5.80 L (test code = 761) HEMOGLOBIN (BEAKER) (test code = 9.7 GM/DL 13.0-16.8 L 410) HEMATOCRIT (BEAKER) (test code = 31.2 % 36.0-50.0 L 411) MEAN CORPUSCULAR VOLUME (BEAKER) 87.6 fL 82.0-99.0 (test code = 753) MEAN CORPUSCULAR HEMOGLOBIN 27.2 pg 27.0-33.0 (BEAKER) (test code = 751) MEAN CORPUSCULAR HEMOGLOBIN CONC 31.1 GM/DL 32.0-36.0 L (BEAKER) (test code = 752) RED CELL DISTRIBUTION WIDTH 17.8 % 12.0-15.0 H (BEAKER) (test code = 412) PLATELET COUNT (BEAKER) (test 244 K/CU MM 150-430 code = 756) MEAN PLATELET VOLUME (BEAKER) 10.7 fL 6.0-11.5 (test code = 754) NUCLEATED RED BLOOD CELLS 0 /100 WBC 0-0 (BEAKER) (test code = 413) NEUTROPHILS RELATIVE PERCENT 52 % (BEAKER) (test code = 429) LYMPHOCYTES RELATIVE PERCENT 34 % (BEAKER) (test code = 430) MONOCYTES RELATIVE PERCENT 8 % (BEAKER) (test code = 431) EOSINOPHILS RELATIVE PERCENT 6 % (BEAKER) (test code = 432) BASOPHILS RELATIVE PERCENT 1 % (BEAKER) (test code = 437) NEUTROPHILS ABSOLUTE COUNT 4.19 K/ L 1.80-8.00 (BEAKER) (test code = 670) LYMPHOCYTES ABSOLUTE COUNT 2.74 K/ L 1.48-4.50 (BEAKER) (test code = 414) MONOCYTES ABSOLUTE COUNT (BEAKER) 0.61 K/ L 0.00-1.30 (test code = 415) EOSINOPHILS ABSOLUTE COUNT 0.48 K/ L 0.00-0.50 (BEAKER) (test code = 416) BASOPHILS ABSOLUTE COUNT (BEAKER) 0.05 K/ L 0.00-0.20 (test code = 417) IMMATURE GRANULOCYTES-RELATIVE 1 % 0-0 H PERCENT (BEAKER) (test code = 2801) POCT-GLUCOSE [id number] 21:46:46 Test Item Value Reference Range Interpretation Comments POC-GLUCOSE METER 163 mg/dL 70-110 H : TESTED A T [facility] 1317 (BEAKER) ([facility], = 1538) [place] [id number]: Sales Development Director/Techni kate ID = [id number] for Mali Malloy POCT-GLUCOSE [id number] 17:12:16 Test Item Value Reference Range Interpretation Comments POC-GLUCOSE METER 132 mg/dL 70-110 H : Notified RN/MD: TESTED (BEAKER) (test code AT [facility] [address] [place] [address] = 1538) [place] [id number]: Sales Development Director/Techni kate ID = [id number] for [place], [place] POCT-GLUCOSE [id number] 11:09:45 Test Item Value Reference Range Interpretation Comments POC-GLUCOSE METER 128 mg/dL 70-110 H : Notified RN/MD: TESTED (BEAKER) (test code AT [facility] [address] = 1538) [place] [id number]: Sales Development Director/Techni kate ID = [id number] for [place], [place] BASIC METABOLIC [id number] 10:11:46 Test Item Value Reference Range Interpretation Comments SODIUM (BEAKER) 138 meq/L 135-148 (test code = 381) POTASSIUM (BEAKER) 3.2 meq/L 3.6-5.5 L (test code = 379) CHLORIDE (BEAKER) 100 meq/L 98-106 (test code = 382) CO2 (BEAKER) (test 27 meq/L 20-29 code = 355) BLOOD UREA NITROGEN 25 mg/dL 10-26 (BEAKER) (test code = 354) CREATININE (BEAKER) 1.77 mg/dL 0.50-1.20 H (test code = 358) GLUCOSE RANDOM 95 mg/dL 70-110 (BEAKER) (test code = 652) CALCIUM (BEAKER) 7.2 mg/dL 8.5-10.5 L (test code = 697) EGFR (BEAKER) (test 37 mL/min/1.73 INSUFF ICIENT CLINICAL code = 1092) sq m DATA TO CALCULA TE ESTIMATED GFR. Sales Development Director ID - [id number] ID - [id number] ID - [id number] ID - [id number] ID - [id number] ID - [id number] ID - [id number] ID - [id number] ID - [id number] ID - [id number] 10:09:12 Test Item Value Reference Range Interpretation Comments MAGNESIUM (BEAKER) (test code = 2.0 mg/dL 1.5-3.0 627) Sales Development Director ID - [id number] ID - [id number] ID - [id number] ID - [id number] W/PLT COUNT & AUTO [id number] 09:35:09 Test Item Value Reference Range Interpretation Comments WHITE BLOOD CELL COUNT (BEAKER) 7.7 K/ L 4.0-10.0 (test code = 775) RED BLOOD CELL COUNT (BEAKER) 3.46 M/ L 4.20-5.80 L (test code = 761) HEMOGLOBIN (BEAKER) (test code = 9.3 GM/DL 13.0-16.8 L 410) HEMATOCRIT (BEAKER) (test code = 30.5 % 36.0-50.0 L 411) MEAN CORPUSCULAR VOLUME (BEAKER) 88.2 fL 82.0-99.0 (test code = 753) MEAN CORPUSCULAR HEMOGLOBIN 26.9 pg 27.0-33.0 L (BEAKER) (test code = 751) MEAN CORPUSCULAR HEMOGLOBIN CONC 30.5 GM/DL 32.0-36.0 L (BEAKER) (test code = 752) RED CELL DISTRIBUTION WIDTH 17.9 % 12.0-15.0 H (BEAKER) (test code = 412) PLATELET COUNT (BEAKER) (test 217 K/CU MM 150-430 code = 756) MEAN PLATELET VOLUME (BEAKER) 10.3 fL 6.0-11.5 (test code = 754) NUCLEATED RED BLOOD CELLS 0 /100 WBC 0-0 (BEAKER) (test code = 413) NEUTROPHILS RELATIVE PERCENT 57 % (BEAKER) (test code = 429) LYMPHOCYTES RELATIVE PERCENT 31 % (BEAKER) (test code = 430) MONOCYTES RELATIVE PERCENT 7 % (BEAKER) (test code = 431) EOSINOPHILS RELATIVE PERCENT 5 % (BEAKER) (test code = 432) BASOPHILS RELATIVE PERCENT 1 % (BEAKER) (test code = 437) NEUTROPHILS ABSOLUTE COUNT 4.36 K/ L 1.80-8.00 (BEAKER) (test code = 670) LYMPHOCYTES ABSOLUTE COUNT 2.38 K/ L 1.48-4.50 (BEAKER) (test code = 414) MONOCYTES ABSOLUTE COUNT (BEAKER) 0.51 K/ L 0.00-1.30 (test code = 415) EOSINOPHILS ABSOLUTE COUNT 0.39 K/ L 0.00-0.50 (BEAKER) (test code = 416) BASOPHILS ABSOLUTE COUNT (BEAKER) 0.04 K/ L 0.00-0.20 (test code = 417) IMMATURE GRANULOCYTES-RELATIVE 1 % 0-0 H PERCENT (BEAKER) (test code = 2801) POCT-GLUCOSE [id number] 06:09:14 Test Item Value Reference Range Interpretation Comments POC-GLUCOSE METER 84 mg/dL 70-110 : TESTED A T [facility] (BEAKER) (test code = [address]) [place] [address]: Sales Development Director/Techni kate ID = [id number] for Michelle Knight POCT-GLUCOSE [id number] 21:48:15 Test Item Value Reference Range Interpretation Comments POC-GLUCOSE METER 122 mg/dL 70-110 H : TESTED A T [facility] (BEAKER) (test code [address], = 15[address]) [place] [address]: Sales Development Director/Techni kate ID = [id number] for Bridget Salas POCT-GLUCOSE [id number] 17:30:56 Test Item Value Reference Range Interpretation Comments POC-GLUCOSE METER 78 mg/dL 70-110 : TESTED A T [facility] (BEAKER) (test code = [address], [address]) [place] [address]: Sales Development Director/Techni kate ID = [id number] for Beka Adorno POCT-GLUCOSE [id number] 11:52:53 Test Item Value Reference Range Interpretation Comments POC-GLUCOSE METER 72 mg/dL 70-110 : TESTED A T [facility] (BEAKER) (test code = [address], [address]) [place] [address]: Sales Development Director/Techni kate ID = [id number] for Beka Adorno HEPATIC FUNCTION [id number] 06:59:28 Test Item Value Reference Range Interpretation Comments TOTAL PROTEIN (BEAKER) 5.9 gm/dL 6.0-8.5 L Speci men slightly (test code = 770) hemolyzed ALBUMIN (BEAKER) (test 2.9 g/dL 3.5-5.0 L Speci men slightly code = 1145) hemolyzed BILIRUBIN TOTAL 0.7 mg/dL 0.1-1.2 Specimen sli ghtly (BEAKER) (test code = hemoly zed 377) BILIRUBIN DIRECT 0.3 mg/dL 0.0-0.4 Specimen sl ightly (BEAKER) (test code = hemoly zed 706) ALKALINE PHOSPHATASE 61 U/L 30-115 (BEAKER) (test code = 346) AST (SGOT) (BEAKER) 20 U/L 5-40 Specimen slightly (test code = 353) hemolyzed ALT (SGPT) (BEAKER) 8 U/L 5-50 Specimen slightly (test code = 347) hemolyzed Sales Development Director ID - [id number] ID - [id number] ID - [id number] ID - pmhn48Ahrqmofs ID - ivwo82Oujlkxiy ID - wenc32Rdaupkyg ID - eyri94Eurcbnzm ID - jylu90Mekgtour ID - oelf17Htelxxdf ID - [id number] METABOLIC [id number] 06:56:05 Test Item Value Reference Range Interpretation Comments SODIUM (BEAKER) 138 meq/L 135-148 (test code = 381) POTASSIUM (BEAKER) 3.7 meq/L 3.6-5.5 Specimen slightly (test code = 379) hemolyzed CHLORIDE (BEAKER) 103 meq/L 98-106 (test code = 382) CO2 (BEAKER) (test 24 meq/L 20-29 code = 355) BLOOD UREA NITROGEN 25 mg/dL 10-26 (BEAKER) (test code = 354) CREATININE (BEAKER) 1.71 mg/dL 0.50-1.20 H Specimen slightly (test code = 358) hemolyzed GLUCOSE RANDOM 86 mg/dL 70-110 (BEAKER) (test code = 652) CALCIUM (BEAKER) 7.2 mg/dL 8.5-10.5 L (test code = 697) EGFR (BEAKER) (test 38 mL/min/1.73 INSUFF ICIENT CLINICAL code = 1092) sq m DATA TO CALCULA TE ESTIMATED GFR. Sales Development Director ID - [id number] ID - [id number] ID - uwvu72Cflxrmkw ID - mxdm68Ikrnsici ID - zwwg31Haktwkcf ID - [id number] ID - ctey21Nlxdoukg ID - ctkt88Kznmiimj ID - fntj49Utmapfaw ID - [id number] W/PLT COUNT & AUTO [id number] 06:40:28 Test Item Value Reference Range Interpretation Comments WHITE BLOOD CELL COUNT (BEAKER) 8.0 K/ L 4.0-10.0 (test code = 775) RED BLOOD CELL COUNT (BEAKER) 3.08 M/ L 4.20-5.80 L (test code = 761) HEMOGLOBIN (BEAKER) (test code = 8.6 GM/DL 13.0-16.8 L 410) HEMATOCRIT (BEAKER) (test code = 26.8 % 36.0-50.0 L 411) MEAN CORPUSCULAR VOLUME (BEAKER) 87.0 fL 82.0-99.0 (test code = 753) MEAN CORPUSCULAR HEMOGLOBIN 27.9 pg 27.0-33.0 (BEAKER) (test code = 751) MEAN CORPUSCULAR HEMOGLOBIN CONC 32.1 GM/DL 32.0-36.0 (BEAKER) (test code = 752) RED CELL DISTRIBUTION WIDTH 18.0 % 12.0-15.0 H (BEAKER) (test code = 412) PLATELET COUNT (BEAKER) (test 206 K/CU MM 150-430 code = 756) MEAN PLATELET VOLUME (BEAKER) 10.7 fL 6.0-11.5 (test code = 754) NUCLEATED RED BLOOD CELLS 0 /100 WBC 0-0 (BEAKER) (test code = 413) NEUTROPHILS RELATIVE PERCENT 57 % (BEAKER) (test code = 429) LYMPHOCYTES RELATIVE PERCENT 32 % (BEAKER) (test code = 430) MONOCYTES RELATIVE PERCENT 6 % (BEAKER) (test code = 431) EOSINOPHILS RELATIVE PERCENT 4 % (BEAKER) (test code = 432) BASOPHILS RELATIVE PERCENT 0 % (BEAKER) (test code = 437) NEUTROPHILS ABSOLUTE COUNT 4.56 K/ L 1.80-8.00 (BEAKER) (test code = 670) LYMPHOCYTES ABSOLUTE COUNT 2.56 K/ L 1.48-4.50 (BEAKER) (test code = 414) MONOCYTES ABSOLUTE COUNT (BEAKER) 0.46 K/ L 0.00-1.30 (test code = 415) EOSINOPHILS ABSOLUTE COUNT 0.32 K/ L 0.00-0.50 (BEAKER) (test code = 416) BASOPHILS ABSOLUTE COUNT (BEAKER) 0.03 K/ L 0.00-0.20 (test code = 417) IMMATURE GRANULOCYTES-RELATIVE 0 % 0-0 PERCENT (BEAKER) (test code = 2801) POCT-GLUCOSE [id number] 05:32:55 Test Item Value Reference Range Interpretation Comments POC-GLUCOSE METER 89 mg/dL 70-110 : Notified RN/MD: TESTED ([facility] [place]) (test code = AT [facility] [address]) [place] [address]: Sales Development Director/Techni kate ID = [id number] for Prov ost, Maribeth POCT-GLUCOSE [id number] 17:11:16 Test Item Value Reference Range Interpretation Comments POC-GLUCOSE METER 124 mg/dL 70-110 H : Notified RN/MD: TESTED ([facility] [place]) (test code AT [facility] [address]) [place] [address]: Sales Development Director/Techni kate ID = [id number] for Dariel h, Lorita POCT-GLUCOSE [id number] 11:57:49 Test Item Value Reference Range Interpretation Comments POC-GLUCOSE METER 164 mg/dL 70-110 H : Notified RN/MD: TESTED ([facility] [place]) (test code AT [facility] [address] = [address]) [place] [address]: Sales Development Director/Techni kate ID = [id number] for Dariel h, Lorita BASIC METABOLIC [id number] 05:37:52 Test Item Value Reference Range Interpretation Comments SODIUM (BEAKER) 140 meq/L 135-148 (test code = 381) POTASSIUM (BEAKER) 4.0 meq/L 3.6-5.5 Specimen slightly (test code = 379) hemolyzed CHLORIDE (BEAKER) 105 meq/L 98-106 (test code = 382) CO2 (BEAKER) (test 25 meq/L 20-29 code = 355) BLOOD UREA NITROGEN 38 mg/dL 10-26 H (BEAKER) (test code = 354) CREATININE (BEAKER) 2.03 mg/dL 0.50-1.20 H Specimen slightly (test code = 358) hemolyzed GLUCOSE RANDOM 110 mg/dL 70-110 (BEAKER) (test code = 652) CALCIUM (BEAKER) 7.0 mg/dL 8.5-10.5 L (test code = 697) EGFR (BEAKER) (test 31 mL/min/1.73 INSUFF ICIENT CLINICAL code = 1092) sq m DATA TO CALCULA TE ESTIMATED GFR. Sales Development Director ID - LITOOperator ID - LITOOperator ID - LITOOperator ID - LITOOperator ID - LITOOperator ID - LITOOperator ID - LITOOperator ID - LITOOperator ID - LITOOperator ID - LITOHEPATIC FUNCTION [id number] 05:33:43 Test Item Value Reference Range Interpretation Comments TOTAL PROTEIN (BEAKER) 5.9 gm/dL 6.0-8.5 L Speci men slightly (test code = 770) hemolyzed ALBUMIN (BEAKER) (test 3.0 g/dL 3.5-5.0 L Speci men slightly code = 1145) hemolyzed BILIRUBIN TOTAL 0.8 mg/dL 0.1-1.2 Specimen sli ghtly (BEAKER) (test code = hemoly zed 377) BILIRUBIN DIRECT 0.3 mg/dL 0.0-0.4 Specimen sl ightly (BEAKER) (test code = hemoly zed 706) ALKALINE PHOSPHATASE 59 U/L 30-115 (BEAKER) (test code = 346) AST (SGOT) (BEAKER) 16 U/L 5-40 Specimen slightly (test code = 353) hemolyzed ALT (SGPT) (BEAKER) 7 U/L 5-50 Specimen slightly (test code = 347) hemolyzed Sales Development Director ID - LITOOperator ID - LITOOperator ID - LITOOperator ID - LITOOperator ID - LITOOperator ID - LITOOperator ID - LITOOperator ID - LITOOperator ID - LITOOperator ID - LITOCBC W/PLT COUNT & AUTO [id number] 05:31:08 Test Item Value Reference Range Interpretation Comments WHITE BLOOD CELL COUNT (BEAKER) 7.9 K/ L 4.0-10.0 (test code = 775) RED BLOOD CELL COUNT (BEAKER) 3.12 M/ L 4.20-5.80 L (test code = 761) HEMOGLOBIN (BEAKER) (test code = 8.4 GM/DL 13.0-16.8 L 410) HEMATOCRIT (BEAKER) (test code = 27.2 % 36.0-50.0 L 411) MEAN CORPUSCULAR VOLUME (BEAKER) 87.2 fL 82.0-99.0 (test code = 753) MEAN CORPUSCULAR HEMOGLOBIN 26.9 pg 27.0-33.0 L (BEAKER) (test code = 751) MEAN CORPUSCULAR HEMOGLOBIN CONC 30.9 GM/DL 32.0-36.0 L (BEAKER) (test code = 752) RED CELL DISTRIBUTION WIDTH 17.8 % 12.0-15.0 H (BEAKER) (test code = 412) PLATELET COUNT (BEAKER) (test 197 K/CU MM 150-430 code = 756) MEAN PLATELET VOLUME (BEAKER) 10.5 fL 6.0-11.5 (test code = 754) NUCLEATED RED BLOOD CELLS 0 /100 WBC 0-0 (BEAKER) (test code = 413) NEUTROPHILS RELATIVE PERCENT 61 % (BEAKER) (test code = 429) LYMPHOCYTES RELATIVE PERCENT 27 % (BEAKER) (test code = 430) MONOCYTES RELATIVE PERCENT 6 % (BEAKER) (test code = 431) EOSINOPHILS RELATIVE PERCENT 4 % (BEAKER) (test code = 432) BASOPHILS RELATIVE PERCENT 1 % (BEAKER) (test code = 437) NEUTROPHILS ABSOLUTE COUNT 4.83 K/ L 1.80-8.00 (BEAKER) (test code = 670) LYMPHOCYTES ABSOLUTE COUNT 2.15 K/ L 1.48-4.50 (BEAKER) (test code = 414) MONOCYTES ABSOLUTE COUNT (BEAKER) 0.47 K/ L 0.00-1.30 (test code = 415) EOSINOPHILS ABSOLUTE COUNT 0.34 K/ L 0.00-0.50 (BEAKER) (test code = 416) BASOPHILS ABSOLUTE COUNT (BEAKER) 0.04 K/ L 0.00-0.20 (test code = 417) IMMATURE GRANULOCYTES-RELATIVE 0 % 0-0 PERCENT (BEAKER) (test code = 2801) HEMOGLOBIN AND [id number] 22:35:07 Test Item Value Reference Range Interpretation Comments HEMOGLOBIN (BEAKER) (test code = 8.2 GM/DL 13.0-16.8 L 410) HEMATOCRIT (BEAKER) (test code = 26.1 % 36.0-50.0 L 411) POCT-GLUCOSE [id number] 21:10:24 Test Item Value Reference Range Interpretation Comments POC-GLUCOSE METER 158 mg/dL 70-110 H : Notified RN/MD: TESTED (BEAKER) (test code AT [facility] [address] = 1538) [place] [facility] [id number]: Sales Development Director/Techni kate ID = [id number] for Jasmeet Maribeth lee U/S, RENAL, [id number] 18:57:00Reason for exam:->elevated Cr [facility] : 1935 Sex: MFINAL REPORT TECHNIQUE: Grayscale ultrasound of the kidneys and bladde r. INDICATION: 86-year-old man with elevated creatinine. COMPARISON: None. FINDINGS: RIGHT KIDNEY: Right kidney measures 11.9 x 5.6 x 4.9 cm with cortical thickness of 1.2 cm. No solid mass. 3.8 x 3.8x 4.1 cm simple cyst in the right lower pole. No hydronephrosis. LEFT KIDNEY: Left kidney measures 10.7 x 5.8 x 5.3 cm with cortical thickness of 0.9 cm. No solid mass. No hydronephrosis. BLADDER: Bladder is underdistended and contains a Hassan catheter. IMPRESSION:No hydronephrosis. Simple right renal cyst. Signed: Jolene Mir MDReport Verified Date/Time: 09/23/2021 18:57:43 HEMOGLOBIN AND [id number] 18:02:18 Test Item Value Reference Range Interpretation Comments HEMOGLOBIN (BEAKER) (test code = 9.4 GM/DL 13.0-16.8 L 410) HEMATOCRIT (BEAKER) (test code = 29.9 % 36.0-50.0 L 411) TROPONIN [id number] 17:56:55 Test Item Value Reference Range Interpretation Comments TROPONIN I (BEAKER) (test code = 397) < ng/mL 0.00-0.15 Troponin I (TnI) levels must be interpreted in the context of the presenting symptoms and the clinical findings. Elevated TnI levels indicate myocardial damage, but are not specific for ischemic heart disease. Elevated TnI levels are seen in patients with other cardiac conditions (including myocarditis and congestive heart failure), and slight TnI elevations occur in patients with other conditions, including sepsis, renal failure, acidosis, acute neurological disease, and persistent tachyarrhythmia.Sales Development Director ID - ERINYPOCT-GLUCOSE METER 2021-09-23 17:52:16 Test Item Value Reference Range Interpretation Comments POC-GLUCOSE METER 118 mg/dL 70-110 H : TESTED A T [facility] (BEAKER) (test code [address], = 1538) [place] [id number]: Sales Development Director/Techni kate ID = [id number] for Jeffry Sarah POCT-GLUCOSE [id number] 11:32:42 Test Item Value Reference Range Interpretation Comments POC-GLUCOSE METER 131 mg/dL 70-110 H : TESTED A T [facility] (BEAKER) (test code [address], = 1538) [place] [id number]: Sales Development Director/Techni kate ID = [id number] for Thomas rochejenniferSelene TROPONIN [id number] 10:57:24 Test Item Value Reference Range Interpretation Comments TROPONIN I (BEAKER) (test code = 397) < ng/mL 0.00-0.15 Troponin I (TnI) levels must be interpreted in the context of the presenting symptoms and the clinical findings. Elevated TnI levels indicate myocardial damage, but are not specific for ischemic heart disease. Elevated TnI levels are seen in patients with other cardiac conditions (including myocarditis and congestive heart failure), and slight TnI elevations occur in patients with other conditions, including sepsis, renal failure, acidosis, acute neurological disease, and persistent tachyarrhythmia.Sales Development Director ID - JAQUELYNNEHEMOGLOBIN AND [id number] 10:50:03 Test Item Value Reference Range Interpretation Comments HEMOGLOBIN (BEAKER) (test code = 9.1 GM/DL 13.0-16.8 L 410) HEMATOCRIT (BEAKER) (test code = 28.9 % 36.0-50.0 L 411) URINALYSIS W/ REFLEX URINE [id number] 07:28:56 Test Item Value Reference Range Interpretation Comments COLOR (BEAKER) (test code = Yellow 470) CLARITY (BEAKER) (test code = Slightly Cloudy 469) SPECIFIC GRAVITY UA (BEAKER) 1.010 1.001-1.035 (test code = 468) PH UA (BEAKER) (test code = 5.5 5.0-8.0 467) PROTEIN UA (BEAKER) (test Negative Negative code = 464) GLUCOSE UA (BEAKER) (test >=1000 mg/dL Negative A code = 365) KETONES UA (BEAKER) (test Negative Negative code = 371) BILIRUBIN UA (BEAKER) (test Negative Negative code = 462) BLOOD UA (BEAKER) (test code Trace Negative A = 461) NITRITE UA (BEAKER) (test Negative Negative code = 465) LEUKOCYTE ESTERASE UA Small Negative A (BEAKER) (test code = 466) UROBILINOGEN UA (BEAKER) 0.2 mg/dL 0.2-1.0 (test code = 463) BACTERIA (BEAKER) (test code Occasional = 517) YEAST (BEAKER) (test code = Few 1585) RBC UA-MANUAL (BEAKER) (test <5 /HPF code = 1659) WBC UA-MANUAL (BEAKER) (test 20-50 /HPF code = 1661) SQUAMOUS EPITHELIAL MANUAL None Seen /HPF (BEAKER) (test code = 1663) SOURCE(BEAKER) (test code = 2795) TROPONIN [id number] 06:35:09 Test Item Value Reference Range Interpretation Comments TROPONIN I (BEAKER) (test code = 397) < ng/mL 0.00-0.15 Troponin I (TnI) levels must be interpreted in the context of the presenting symptoms and the clinical findings. Elevated TnI levels indicate myocardial damage, but are not specific for ischemic heart disease. Elevated TnI levels are seen in patients with other cardiac conditions (including myocarditis and congestive heart failure), and slight TnI elevations occur in patients with other conditions, including sepsis, renal failure, acidosis, acute neurological disease, and persistent tachyarrhythmia.Sales Development Director ID - [id number] 2021-09-23 05:13:31 Test Item Value Reference Range Interpretation Comments HEMOGLOBIN A1C (ROBERTO) (test code = 5.7 % 4.3-6.1 368) Sales Development Director ID - [id number], CHEST, 1 VIEW, NON [id number] 04:38:00Reason for exam:->baselineShould this be performed at the bedside?->Yes [facility] : 1935 Sex: MFINAL REPORT INDICATION: baseline COMPARISON: None TECHNIQUE: Single f rontal view of the chest. FINDINGS: Lungs and pleura: Clear lungs. No effusion. Heart and mediastinum: Normal heart size. 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 Unremarkable mediastinal contours. Osseous structures: No acute abnormality. Other: None. IMPRESSION: No acute intrathoracic abnormality. Signed: Albert Arangoepkayleen Verified Date/Time: 09/23/2021 04:38:32 BASIC METABOLIC [id number] 04:34:59 Test Item Value Reference Range Interpretation Comments SODIUM (BEAKER) 137 meq/L 135-148 (test code = 381) POTASSIUM (BEAKER) 4.9 meq/L 3.6-5.5 Specimen slightly (test code = 379) hemolyzed CHLORIDE (BEAKER) 98 meq/L 98-106 (test code = 382) CO2 (BEAKER) (test 23 meq/L 20-29 code = 355) BLOOD UREA NITROGEN 52 mg/dL 10-26 H (BEAKER) (test code = 354) CREATININE (BEAKER) 2.64 mg/dL 0.50-1.20 H Specimen slightly (test code = 358) hemolyzed GLUCOSE RANDOM 169 mg/dL 70-110 H (BEAKER) (test code = 652) CALCIUM (BEAKER) 7.9 mg/dL 8.5-10.5 L (test code = 697) EGFR (BEAKER) (test 23 mL/min/1.73 INSUFF ICIENT CLINICAL code = 1092) sq m DATA TO CALCULA TE ESTIMATED GFR. Sales Development Director ID - [id number] ID - [id number] ID - [id number] ID - [id number] ID - KDTF31Bjicbkrg ID - KSZM72Gqbgxxpm ID - HDKV32Bmvyksfu ID - UMHN07Yixhptox ID - ETRE68Olyqhmda ID - [id number] 04:32:57 Test Item Value Reference Range Interpretation Comments MAGNESIUM (BEAKER) 2.2 mg/dL 1.5-3.0 Specimen slightly (test code = 627) hemolyzed Sales Development Director ID - [id number] ID - [id number] ID - SRTJ61Sizlekml ID - [id number] HEPATIC FUNCTION [id number] 04:32:57 Test Item Value Reference Range Interpretation Comments TOTAL PROTEIN (BEAKER) 6.9 gm/dL 6.0-8.5 Speci men slightly (test code = 770) hemolyzed ALBUMIN (BEAKER) (test 3.2 g/dL 3.5-5.0 L Speci men slightly code = 1145) hemolyzed BILIRUBIN TOTAL 0.8 mg/dL 0.1-1.2 Specimen sli ghtly (BEAKER) (test code = hemoly zed 377) BILIRUBIN DIRECT 0.3 mg/dL 0.0-0.4 Specimen sl ightly (BEAKER) (test code = hemoly zed 706) ALKALINE PHOSPHATASE 96 U/L 30-115 (BEAKER) (test code = 346) AST (SGOT) (BEAKER) 19 U/L 5-40 Specimen slightly (test code = 353) hemolyzed ALT (SGPT) (BEAKER) 12 U/L 5-50 Specimen slightly (test code = 347) hemolyzed Sales Development Director ID - [id number] ID - [id number] ID - GPAV34Knfhuvtu ID - JUKA64Nuldmbcz ID - GAFI71Rsaqxxsm ID - TROB79Swvxgtqt ID - [id number] 2021-09-23 04:29:39 Test Item Value Reference Range Interpretation Comments PHOSPHORUS (BEAKER) 4.3 mg/dL 2.5-4.5 Specimen slightly (test code = 604) hemolyzed Sales Development Director ID - [id number] TIME/[id number] 04:25:54 Test Item Value Reference Range Interpretation Comments PROTIME (BEAKER) 12.6 seconds 9.3-12.0 H Final Infor mation (test code = 759) (Auto Outp ut) INR (BEAKER) (test 1.16 See_Comment Final Inf ormation code = 370) (Auto Output) [Automated mess age] The system Auto I.D. generated this result transmitted ref erence range: <=5.90. The reference range was not used to int erpret this result as normal/abnormal . RECOMMENDED COUMADIN/WARFARIN INR THERAPY RANGESSTANDARD DOSE: 2.0 - 3.0 Includes: PROPHYLAXIS forvenous thrombosis, systemic embolization; TREATMENT for venous thrombosis and/or pulmonary embolus.HIGH RISK: Target INR is 2.5-3.5 for patients with mechanical heart valves.CBC W/PLT COUNT & AUTO DIFFERENTIAL 2021-09-23 04:16:54 Test Item Value Reference Range Interpretation Comments WHITE BLOOD CELL COUNT (BEAKER) 14.7 K/ L 4.0-10.0 H (test code = 775) RED BLOOD CELL COUNT (BEAKER) 4.52 M/ L 4.20-5.80 (test code = 761) HEMOGLOBIN (BEAKER) (test code = 12.4 GM/DL 13.0-16.8 L 410) HEMATOCRIT (BEAKER) (test code = 39.1 % 36.0-50.0 411) MEAN CORPUSCULAR VOLUME (BEAKER) 86.5 fL 82.0-99.0 (test code = 753) MEAN CORPUSCULAR HEMOGLOBIN 27.4 pg 27.0-33.0 (BEAKER) (test code = 751) MEAN CORPUSCULAR HEMOGLOBIN CONC 31.7 GM/DL 32.0-36.0 L (BEAKER) (test code = 752) RED CELL DISTRIBUTION WIDTH 18.3 % 12.0-15.0 H (BEAKER) (test code = 412) PLATELET COUNT (BEAKER) (test 278 K/CU MM 150-430 code = 756) MEAN PLATELET VOLUME (BEAKER) 10.3 fL 6.0-11.5 (test code = 754) NUCLEATED RED BLOOD CELLS 0 /100 WBC 0-0 (BEAKER) (test code = 413) NEUTROPHILS RELATIVE PERCENT 77 % (BEAKER) (test code = 429) LYMPHOCYTES RELATIVE PERCENT 16 % (BEAKER) (test code = 430) MONOCYTES RELATIVE PERCENT 6 % (BEAKER) (test code = 431) EOSINOPHILS RELATIVE PERCENT 0 % (BEAKER) (test code = 432) BASOPHILS RELATIVE PERCENT 0 % (BEAKER) (test code = 437) NEUTROPHILS ABSOLUTE COUNT 11.27 K/ L 1.80-8.00 H (BEAKER) (test code = 670) LYMPHOCYTES ABSOLUTE COUNT 2.40 K/ L 1.48-4.50 (BEAKER) (test code = 414) MONOCYTES ABSOLUTE COUNT (BEAKER) 0.84 K/ L 0.00-1.30 (test code = 415) EOSINOPHILS ABSOLUTE COUNT 0.06 K/ L 0.00-0.50 (BEAKER) (test code = 416) BASOPHILS ABSOLUTE COUNT (BEAKER) 0.04 K/ L 0.00-0.20 (test code = 417) IMMATURE GRANULOCYTES-RELATIVE 1 % 0-0 H PERCENT (BEAKER) (test code = 2801) POCT-GLUCOSE [id number] 03:44:38 Test Item Value Reference Range Interpretation Comments POC-GLUCOSE METER 167 mg/dL 70-110 H : TESTED A T [facility] [address] (BEAKER) (test code [address], = 1538) [place] [id number] 478: Sales Development Director/Techni kate ID = [id number] for Ahsan Orozco POCT-GLUCOSE [id number] 03:27:46 Test Item Value Reference Range Interpretation Comments POC-GLUCOSE METER 164 mg/dL 70-110 H : TESTED A T [facility] [address] (BEAKER) (test code [address], = 1538) [place] [id number] 478: Sales Development Director/Techni kate ID = [id number] for Kirk Healy SARS-CoV-2 (COVID-19) RNA [Presence] in Respiratory specimen by ANDREW with probe [id number] 11:35:00 Test Item Value Reference Range Interpretation Comments 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 (test code = 74687-7) Whether the patient was admitted to intensive care unit (ICU) for condition of interest (test code = 99329-5) SARS-CoV-2 (COVID-19) RNA [Presence] in Respiratory specimen by ANDREW with probe [id number] 00:24:51 Test Item Value Reference Range Interpretation Comments SARS-CoV-2 (COVID-19) RNA Not detected Not-Detected [Presence] in Respiratory specimen by ANDREW with probe detection (test code = 22822-8) SARS-CoV-2 (COVID-19) RNA [Presence] in Respiratory specimen by ANDREW with probe [id number] 23:06:04 Test Item Value Reference Range Interpretation Comments SARS-CoV-2 (COVID-19) RNA Not detected Not-Detected [Presence] in Respiratory specimen by ANDREW with probe detection (test code = 37833-1) SARS-CoV-2 (COVID-19) RNA [Presence] in Respiratory specimen by ANDREW with probe [id number] 19:57:13 Test Item Value Reference Range Interpretation Comments SARS-CoV-2 (COVID-19) RNA Not detected Not-Detected [Presence] in Respiratory specimen by ANDREW with probe detection (test code = 94982-7) SARS-CoV-2 (COVID-19) RNA [Presence] in Respiratory specimen by ANDREW with probe [id number] 23:40:00 Test Item Value Reference Range Interpretation Comments SARS-CoV-2 (COVID-19) RNA Not detected Not-Detected [Presence] in Respiratory specimen by ANDREW with probe detection (test code = 01232-5) SARS-CoV-2 (COVID-19) RNA [Presence] in Respiratory specimen by ANDREW with probe [id number] 22:07:46 Test Item Value Reference Range Interpretation Comments SARS-CoV-2 (COVID-19) RNA Not detected Not-Detected [Presence] in Respiratory specimen by ANDREW with probe detection (test code = 02721-5) SARS-CoV-2 (COVID-19) RNA [Presence] in Respiratory specimen by ANDREW with probe [id number] 21:47:42 Test Item Value Reference Range Interpretation Comments SARS-CoV-2 (COVID-19) RNA Not detected Not-Detected [Presence] in Respiratory specimen by ANDREW with probe detection (test code = 64900-7) SARS-CoV-2 (COVID-19) RNA [Presence] in Respiratory specimen by ANDREW with probe [id number] 14:31:58 Test Item Value Reference Range Interpretation Comments SARS-CoV-2 (COVID-19) RNA Not detected Not-Detected [Presence] in Respiratory specimen by ANDREW with probe detection (test code = 96751-8)
[2021-10-15 13:00] VITALS: BMI 28.7
[2021-10-15] MEDS ORDERED: GLUCAGON 1 MG/VIAL IM PRN (14:07)
[2021-10-15] MEDS ORDERED: D50W 25 GM/50 ML SYRINGE IV PRN (14:07)
[2021-10-15] MEDS ORDERED: [UNRECOGNIZED DRUG - OTHER] SQ SCH (14:30)
[2021-10-15] MEDS ORDERED: INSULIN ASPART SQ SCH ×2 (14:30)
[2021-10-15] MEDS ORDERED: ALBUTEROL INHALER 60 PUFF/8 GM IH PRN (15:06)
[2021-10-15] MEDS ORDERED: methocarbamoL 500 MG TAB PO PRN (15:08)
[2021-10-15] MEDS ORDERED: ONDANSETRON 4 MG (ODT) TAB PO PRN (15:09)
[2021-10-15 16:08] LABS: Urine Appearance CLOUDY (Clear); Urine Bilirubin NEGATIVE (Negative); Urine Blood 1+ (Negative); Urine Color YELLOW (Yellow); Urine Glucose NEGATIVE (Negative); Urine Protein NEGATIVE (Negative); Urine Urobilinogen 0.2 mg/dL (0.2-1.0); Urine pH 5.5 (5.0-7.0)
[2021-10-15 16:25] LABS: Urine Bacteria >50 /HPF (NONE SEEN); Urine RBC <5 /HPF (NONE SEEN)
[2021-10-15] MEDS: INSULIN -REGULAR HUMAN 50 UNIT/0.5 ML ML SQ SCH ×2 (16:30→20:01)
[2021-10-15] MEDS: PANTOPRAZOLE 40MG TABLET PO SCH (17:07)
[2021-10-15] MEDS: icosapent ethyL 1 GM CAP PO SCH (17:07)
[2021-10-15] MEDS: INSULIN LISPRO 100 UNIT/1 ML SQ SCH (17:41)
--- NOTE | 2021-10-15 18:04 | R.HP ---
HISTORY AND PHYSICAL FACILITY: [facility] ENCOUNTER DATE AND TIME: 10/15/2021 17:50 (CDT) MR#: [id number] NAME MARCELA ALCARAZ ADDRESS: [address] [place] [address] CITY: [place] ZIP [address] PHONE: DATE OF : 1935 AGE: 86 SSN# [id number] GENDER: Male MARITAL STATUS RACE White PRE-HOSPITAL LIVING SETTING 01 - Home (private home/apt. board/care, assisted living, usp, transitional living) PRE-HOSPITAL LIVING WITH Family/Relatives ENCOUNTER PHYSICIAN: Dr. Justin Monsalve M.D. 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 HISTORY OF PRESENT ILLNESS (HPI): Pt. is a 86 yo Right-handed white male. On 10/12/2021 he was admitted to [facility] with diagnosis Debility. GI bleed. His impairment category is debility 3.9 other neurologic disorders. Pre-morbidly, Pt. was independent/mod-I in Locomotion, Safety Awareness, Social Cognition, Transfers Control, and Balance; and he had good Transfers Control, Sphincter Control, Self-Care, Endurance, and Communication. Currently, he has deficits of Locomotion, Safety Awareness, Social Cognition, Balance, Transfers Cont rol, Sphincter Control, Self-Care, Communication, and Endurance. Pt. is now referred to [facility] for acute in-patient rehabilitation in order to maximize patient's functional independence in activities of daily living, strength, ROM, and mobi lity. Patient has realistic goal of being discharged at assistance level 7-Ind to reside at Home with Fami ly/Relatives. MEDICATION ALLERGIES: No Known Drug Allergies (NKDA) ENVIRONMENTAL ALLERGIES: - Substance Allergies None Known - Other Allergies None Known PAST MEDICAL HISTORY: CHF COPD DIABETES HYPERTENSION HYPERLIPIDEMIA Gout, unspecified (M10.9) GERD HYPOTHYROIDISM ACUTE RENAL INSUFFICIENCY WOUNDS ON HIS BOTTOM ANEMIA AFIB WEAKNESS FALLS CKD STAGE 4 DISTURBANCE SLEEP APNEA ALZHEIMERS DISEASE PAST SURGICAL HISTORY: CAD W CABG TOE AMPUTATION SOCIAL HISTORY: - Home Living Family/Relatives REVIEW OF SYSTEMS: - Gen No Chills Fatigue No Fever - Eyes No Double Vision No itchiness - ENMT No Difficulty Swallowing - CVS No Chest Discomfort No Chest Pain No Fatigue No Weight Gain - Resp No Cough No Shortness of Breath - GI Continent No Abdominal Pain No Constipation No Diarrhea - Continent No Kidney Pain No Painful Urination No Urinary Urgency - MSK No Joint Pain Muscle Cramps Stiffness - Skin No Itching No Rash No Suspicious Lesions - Neuro Coordination Difficulty No Difficulty with Concentration No Memory Loss No Seizures Weakness - Psych No Anxiety No Depression No HIV Exposure No Persistent Infections No Seasonal Allergies - Endo No Cold/Heat Intolerance No Excessive Hunger No Excessive Thirst No Excessive Urination PHYSICAL EXAM - Gen Alert and awake Lying in bed No apparent distress Oriented to: person, time, and place - Skin Right heel stage IV and sacral stage I diabetic ulcer Normacephalic - Eyes No abnormalities - ENMT No abnormalities - Neck No abnormalities - CVS RRR - Chest No abnormalities - Resp Clear to auscultation - Abd Soft - GI Non distended No abnormalities - No abnormalities - Ext Mild bilateral lower extremity edema. - MSK 4/5 weakness in both lower extremities. - Neuro No focal deficits - Psych No abnormalities VITAL SIGNS SBP/DBP: 109/48 Pulse: 70 Resp: 16 NURSING: - Shower allowing shower PRECAUTIONS: - Fall Precaution SAFTY AND FALL ACTIVITIES OOB only with supervision QI SCORES: - Self-Care A. Eating 03-Partial/moderate assistance B. Oral hygiene 03-Partial/moderate assistance C. Toileting hygiene 02-Substantial/maximal assistance E. Shower/bathe self 02-Substantial/maximal assistance F. Upper body dressing 03-Partial/moderate assistance G. Lower body dressing 02-Substantial/maximal assistance H. Putting on/taking off footwear 88-Not attempted due to medical condition or safety concerns - Mobility A. Roll left and right 03-Partial/moderate assistance B. Sit to lying 03-Partial/moderate assistance C. Lying to sitting on side of bed 03-Partial/moderate assistance D. Sit to stand 03-Partial/moderate assistance E. Chair/xcp-ih-qrzog transfer 03-Partial/moderate assistance F. Toilet transfer 02-Substantial/maximal assistance G. Car transfer 88-Not attempted due to medical condition or safety concerns I. Walk 10 feet 03-Partial/moderate assistance J. Walk 50 feet with two turns 88-Not attempted due to medical condition or safety concerns K. Walk 150 feet 88-Not attempted due to medical condition or safety concerns L. Walking 10 feet on uneven surfaces 88-Not attempted due to medical condition or safety concerns M. 1 step (curb) 88-Not attempted due to medical condition or safety concerns N. 4 steps 88-Not attempted due to medical condition or safety concerns O. 12 steps 88-Not attempted due to medical condition or safety concerns P. Picking up object 88-Not attempted due to medical condition or safety concerns R. Wheel 50 feet with two turns 88-Not attempted due to medical condition or safety concerns S. Wheel 150 feet 88-Not attempted due to medical condition or safety concerns - Bladder and Bowel Bladder continence Bowel continence - Endurance Fair - Balance Poor - Safety Awareness Fair CURRENT FUNC. DEFICITS: Self-Care, Mobility, Endurance, Balance, and Safety Awareness MEDICATIONS: - Other See attached MAR (Medication Administration Record) ASSESSMENT: Pt. is a 86 yo Right-handed white male.On 10/12/2021 he was admitted to [facility] with di agnosis Debility.His impairment category is Debility.Pre-morbidly, Pt. was independent/mod-I in Locom otion, Safety Awareness, Social Cognition, Transfers Control, and Balance; and he had good Transfers Control, Sphincter Control, Self-Care, Endurance, and Communication.Currently, he has deficits of Loc omotion, Safety Awareness, Social Cognition, Balance, Transfers Control, Sphincter Control, Self-Care , Communication, and Endurance.Pt. is now referred to [facility] for acute in- patient rehabilitation in order to maximize patient's functional independence in activities of daily living, strength, ROM, and mobility.- Rehab Goal Patient has realistic goal of being discharged at assistance level 7-Ind to reside at Home with Fami ly/Relatives. - Physical Therapy Weakness - to improve, our physical therapists will perform initial evaluation of pt's status upon a dmission and devise an individualized program for Aquatic Therapy, Neuromuscular Reeducation, and Str engthening Poor balance - to improve, our physical therapists will perform initial evaluation of pt's status up on admission and devise an individualized program for Balance Training Inability to transfer - to improve, our physical therapists will perform initial evaluation of pt's status upon admission and devise an individualized program for Bed mobility Need in caregiver upon discharge - to improve, our physical therapists will perform initial evaluati on of pt's status upon admission and devise an individualized program for Caregiver Training Poor endurance - to improve, our physical therapists will perform initial evaluation of pt's status upon admission and devise an individualized program for Endurance Training Gait dysfunction - to improve, our physical therapists will perform initial evaluation of pt's statu s upon admission and devise an individualized program for Gait Training, and Wheel Chair mobility Need for home safety evaluation - to improve, our physical therapists will perform initial evaluatio n of pt's status upon admission and devise an individualized program for Home Evaluation New precaution - to improve, our physical therapists will perform initial evaluation of pt's status upon admission and devise an individualized program for Patient precaution education Edema - to improve, our physical therapists will perform initial evaluation of pt's status upon admi ssion and devise an individualized program for Elevation Training, and Lymphedema Therapy - Occupational Therapy Weakness - to improve, our occupation therapists will perform initial evaluation of pt's status upon admission and devise an individualized program for Aquatic Therapy, Balance, Endurance, UE ROM, and UE strengthening ADL deficits - to improve, our occupation therapists will perform initial evaluation of pt's status upon admission and devise an individualized program for Bathing, Bed mobility, Community Reintegratio n, Cooking, Dressing, Eating, Fine Motor Skills, Grooming, Homemaking, Kitchen Mobility, Laundry, Pat ient Education, Safety Awareness, Splinting - Positioning, Transfers(Toilet, Tub, Shower), and Wheel Chair Management Need for rental boats caretaker - to improve, our occupation therapists will perform initial evaluation of pt's status upon admission and devise an individualized program for Caregiver Training Cognitive deficits - to improve, our occupation therapists will perform initial evaluation of pt's s tatus upon admission and devise an individualized program for Cognition - orientation - Balance for Weakness - Bed mobility for ADL deficits - Lymphedema Therapy for Edema MEDICAL PLAN: - Diet Type Start Regular - Diet - Liquid Texture Start Regular - Tube Feed Start N/A - Fall Precaution SAFTY AND FALL - Other See attached MAR (Medication Administration Record) - Diet - Solid Texture Regular - Shower shower DISCHARGE PLAN: - Estimated Length of Stay (days) 13. - Consensus on plan Discharge plan has been discussed with primary caregiver. Patient/Family is in agreement with the rodrigo n. Primary caregiver is in agreement with the plan. - Patient/Family Goals Return home independently. - Planned Living Setting Upon Discharge Home, to live with Family/Relatives. Transitional Living. SIGNATURE PANEL: (CDT)
--- NOTE | 2021-10-15 18:08 | PAPE ---
POST ADMISSION PHYSICIAN EVALUATION PATIENT: [facility] MR# [id number] REFERRING DOCTOR EVALUATION DATE AND TIME 10/15/2021 18:04 (CDT) NAME MARCELA ALCARAZ DATE OF 1935 AGE 86 PHONE SSN# [id number] GENDER male EVALUATING PHYSICIAN Dr. Justin Monsalve M.D. ONSET DATE 10/12/2021 POST-ADMISSION FUNCTIONAL/MEDICAL STATUS: - Bladder Same accident frequency: 7-Ind - No accidents in the past 7 days - Bowel Same accident frequency: 7-Ind - No accidents in the past 7 days - Walking Same score based on distance walked: 0(N/A) - Wheelchair Same score based on distance traveled: 0(N/A) STATUS CHANGE EVALUATION: No change in Functional or Medical Status is identified compared with Pre-Admission screening. PATIENT NEEDS CLOSE MEDICAL SUPERVISION BY A REHABILITATION PHYSICIAN FOR: Coordination of Treatment Team Wound Care Medical and Co-Morbidity Management Pain Management DVT Management Diabetes Management PATIENT REQUIRES 24X7 REHAB NURSING FOR MEDICAL AND FUNCTIONAL MGT. OF THE FOLLOWING DEFICITS: Disease Management Medication Management Patient requires 24x7 Rehabilitation Nursing for: Pain Issues, Identifying and preventing risk factor s, Monitoring and reporting current medical conditions, Assisting with ambulation and transfer, Sai ting with all ADL-s, Teaching patients about disease process and medications, Family teaching, Provid ing safe environment, Bowel and Bladder Issues, Skin Integrity, and Medication Management Patient/Family Education Providing Safe Environment Skin Integrity Pain Management Bowel and Bladder Management PATIENT REQUIRES INTENSIVE, COORDINATED INTERDISCIPLINARY APPROACH TO REHAB: Arranging Home Equipment/Services Discharge Planning Family Intervention/Training Patient needs Dietary and Nutrition Services for: Adequate Nutrition, Nutritional Supplements, and Nu tritional Education Patient needs High School Social Science Teacher and/or Case Management for: Discharge Planning, Arranging Home Equipmen t or Services, and Family Interventions [employer] Social Science Teacher/Case Management LIST OF IDENTIFIED AND POTENTIAL PROBLEMS: Alteration in leisure activities Bladder, Incontinence Bowel, Incontinence Infection, Actual or Potential Mobility Impaired Pain, Alteration in Comfort Self Care Deficit Skin Integrity, Actual or Potential Urinary Tract Infection (UTI), Actual or Potential RISK FOR COMPLICATIONS - Skin Breakdown Nursing will assess skin daily using assessment tool and will place on Skin Breakdown Precautions as Indicated per protocol. Current pressure sore present and wound care is required. - FALLS Patient will be evaluated for Fall Precautions and will be placed on Fall Precautions as indicated pe r protocol. - SHORTNESS OF BREATH medication management by physician. - WOUNDS Nursing will assess wounds daily using assessment tools and work on Skin Breakdown Precautions as In dicated per protocol. - Weakness Nursing and therapy will help to get patient stronger. Regular therapeutic activity and exercise. Str engthening exercises to be performed. - CARDIC monitoring heart rate/signs and symptoms for cardiac distress. - ANEMIA - Diabetic Complications Regular monitoring and management of blood glucose levels. pt will receive a specialized diet to help manage blood glucose levels. - CVA pt's blood pressures have been inconsistent and require monitoring and medication management as inidi cated by physician. - Gout Monitor symptoms and manage via medication as indicated by physician. INTERVENTIONS - CHF monitoring of patient symptoms and medication management by physician. Daily weights will be obtained . - A-Fib Vitals will be monitored regularly and medications administered as indicated by Physician. - HYPERTENSION Blood pressure will be regularly assessed and medications administered as per physician recommendatio ns. - ANEMIA - HYPERLIPIDEMIA Patient is to continue on administered medications per MD. - Diabetes Diet will be customized to manage diabetic needs. Monitor blood glucose levels and administer medicat ion as indicated by Physician. - Dementia Proper monitoring of patient to ensure safety. Pressure Alarms in place. Medications administered as indicated by physician. PATIENT COULD BE AT RISK FOR COMPLICATIONS FROM ADVERSE MEDICAL CONDITIONS DUE TO HIS/HER COMORBIDITI ES AND THE RIGORS OF THE INTENSIVE REHABILLITATION PROGRAM. METHODS OR INTERVENTIONS TO AVOID COMPLIC ATIONS INCLUDE: - Deep Vein Thrombosis (DVT) Prophylaxis therapy for prevention . Sequential Compression Device (SCD). TE D Hose. - Bleeding Assess lab values and manage abnormalities. Nursing to teach precautions for anti-coagulation therapy . Wound to be assessed every shift. - Infection Clinical staff to assess and manage the signs and symptoms of infection including fever, redness, war mth, etc. - Urinary Tract Infection - Falls Patient will be evaluated for Fall Precautions and will be placed on Fall Precautions as indicated pe r protocol. - Skin Breakdown Nursing will assess skin daily using assessment tool and will place on Skin Breakdown Precautions as indicated per protocol. - Pain Clinical staff may employ non-medication methods such as massage, distraction, decrease stimulus, etc . as needed. Clinical staff will assess patient's pain level every shift per protocol to assess and e nsure pain management effectiveness. Medications will be given and the pain level re-assessed. PRELIMINARY PLAN OF CARE: - Physical Therapy Patient needs Physical Therapy for a daily minimum of 1.5 hours at least 5 out of 7 days, to improve: Mobility, Strengthening, Transfers, Stretching, ROM, Endurance, Ability to manage stairs, Gait, and Balance. - Speech Therapy Patient needs Speech Therapy for a daily minimum of 0.5 hours at least 5 out of 7 days, to improve: S wallowing, Cognition, Language Skills, and Compensatory Strategies. - Rehabilitation Nursing Patient requires 24x7 Rehabilitation Nursing for: Pain Issues, Identifying and preventing risk factor s, Monitoring and reporting current medical conditions, Assisting with ambulation and transfer, Sai ting with all ADL-s, Teaching patients about disease process and medications, Family teaching, Provid ing safe environment, Bowel and Bladder Issues, Skin Integrity, and Medication Management. Patient needs High School Social Science Teacher and/or Case Management for: Discharge Planning, Arranging Home Equipmen t or Services, and Family Interventions. - Dietary and Nutrition Services Patient needs Dietary and Nutrition Services for: Adequate Nutrition, Nutritional Supplements, and Nu tritional Education. - Occupational Therapy Patient needs Occupational Therapy for a daily minimum of 1.5 hours at least 5 out of 7 days, to impr ove Activities of Daily Living, including: Eating, Grooming, Bathing, Dressing, Toileting, Toilet Tra nsfers, Community Reintegration, Higher functional activities, Adaptive Equipment, Splinting, Househo ld Tasks, and Other activities as determined. QI SCORES: - Self-Care A. Eating 03-Partial/moderate assistance B. Oral hygiene 03-Partial/moderate assistance C. Toileting hygiene 02-Substantial/maximal assistance E. Shower/bathe self 02-Substantial/maximal assistance F. Upper body dressing 03-Partial/moderate assistance G. Lower body dressing 02-Substantial/maximal assistance H. Putting on/taking off footwear 88-Not attempted due to medical condition or safety concerns - Mobility A. Roll left and right 03-Partial/moderate assistance B. Sit to lying 03-Partial/moderate assistance C. Lying to sitting on side of bed 03-Partial/moderate assistance D. Sit to stand 03-Partial/moderate assistance E. Chair/qgb-eo-imota transfer 03-Partial/moderate assistance F. Toilet transfer 02-Substantial/maximal assistance G. Car transfer 88-Not attempted due to medical condition or safety concerns I. Walk 10 feet 03-Partial/moderate assistance J. Walk 50 feet with two turns 88-Not attempted due to medical condition or safety concerns K. Walk 150 feet 88-Not attempted due to medical condition or safety concerns L. Walking 10 feet on uneven surfaces 88-Not attempted due to medical condition or safety concerns M. 1 step (curb) 88-Not attempted due to medical condition or safety concerns N. 4 steps 88-Not attempted due to medical condition or safety concerns O. 12 steps 88-Not attempted due to medical condition or safety concerns P. Picking up object 88-Not attempted due to medical condition or safety concerns R. Wheel 50 feet with two turns 88-Not attempted due to medical condition or safety concerns S. Wheel 150 feet 88-Not attempted due to medical condition or safety concerns - Bladder and Bowel Bladder continence Bowel continence - Endurance Fair - Balance Poor - Safety Awareness Fair POTENTIAL FUNCTIONAL GOALS FOR PATIENT TO ACHIEVE BY DISCHARGE: - Safety Precaution Patient will remain free from falls or injury at time of discharge. - Bed Mobility Patient will perform bed mobility at 4-Navid level of assistance. - Transfers Patient will complete transfers from bed to chair at 4-Navid level of assistance. - Mobility Patient will ambulate 150 ft with 4-Navid level of assistance with RW. PATIENT REHAB POTENTIAL AmarilysXenia ALCARAZ is able and expected to receive 3 hours of individualized therapy daily on at least 5 of vernell ry 7 days Chris ALCARAZ's prognosis for significant practical improvement within a reasonable period of time appears Good Expected level of measurable improvement will be of a practical value to Chris ALCARAZ's functional capaci ty or adaptations to impairments Has a viable Discharge Plan Medically appropriate; condition is sufficiently stable to participate in intensive rehab program DISCHARGE PLAN: - Estimated Length of Stay (days) 13. - Consensus on plan Discharge plan has been discussed with primary caregiver. Patient/Family is in agreement with the rodrigo n. Primary caregiver is in agreement with the plan. - Patient/Family Goals Return home independently. - Planned Living Setting Upon Discharge Home, to live with Family/Relatives. Transitional Living. CONCLUSION ON REHABILITATION NECESSITY: I have evaluated patient's pre-admission functional status and, comparing it to the patient's post-ad mission functional status now, I conclude that the pre-admission assessment was accurate. Patient's c ondition on admission supports the medical necessity of admission to [facility]. It is safe to proceed with patient's therapy program. SIGNATURE PANEL: (CDT)
[2021-10-15] MEDS: TORSEMIDE 20 MG TAB PO SCH (20:00)
[2021-10-15] MEDS: carvediloL 6.25 MG TAB PO SCH (20:00)
[2021-10-15] MEDS: DONEPEZIL HCL 5 MG TAB PO SCH (20:00)
[2021-10-15] MEDS: GABAPENTIN 300 MG CAP PO SCH (20:00)
[2021-10-15] MEDS: COLESEVELAM 625 MG PO SCH (20:00)
[2021-10-15] MEDS: APIXABAN 2.5 MG TABLET PO SCH (20:01)
[2021-10-15] MEDS ORDERED: DONEPEZIL HCL 5 MG TAB PO SCH (21:00)
[2021-10-16 04:19] LABS: Absolute Lymphocytes (CBC) 1.8 K/uL (0.7-4.9); Hematocrit 25.2 % (39.6-49.0); Lymphocytes % 29.2 % (15.3-44.8); MPV 7.7 fL (7.6-11.3); RBC Red Blood Cell Count 2.99 M/uL (4.33-5.43)
[2021-10-16 04:35] LABS: Albumin 2.3 g/dL (3.4-5.0); Magnesium 1.9 mg/dL (1.8-2.4); Potassium 3.6 mmol/L (3.5-5.1); Prealbumin 16.1 mg/dL (20-40)
[2021-10-16] MEDS: INSULIN -REGULAR HUMAN 50 UNIT/0.5 ML ML SQ SCH ×4 (07:30→20:22)
[2021-10-16] MEDS ORDERED: COLESEVELAM 625 MG PO SCH (08:00)
[2021-10-16] MEDS: INSULIN DEGLUDEC SQ SCH (08:00)
[2021-10-16] MEDS: INSULIN LISPRO 100 UNIT/1 ML SQ SCH ×4 (08:00→17:44)
[2021-10-16] MEDS ORDERED: APIXABAN 2.5 MG TABLET PO SCH (08:00)
[2021-10-16] MEDS ORDERED: LEVOTHYROXINE 150 MCG PO SCH (08:00)
[2021-10-16] MEDS ORDERED: icosapent ethyL 1 GM CAP PO SCH (08:00)
[2021-10-16] MEDS ORDERED: carvediloL 6.25 MG TAB PO SCH (08:00)
[2021-10-16] MEDS: COLESEVELAM 625 MG PO SCH ×2 (08:00→20:00)
[2021-10-16] MEDS ORDERED: RAMELTEON 8 MG PO SCH (08:00)
[2021-10-16] MEDS ORDERED: GABAPENTIN 300 MG CAP PO SCH (08:00)
[2021-10-16] MEDS: MEDIHONEY 44 ML TOPICAL TUBE TOP SCH (08:46)
[2021-10-16] MEDS: DONEPEZIL HCL 5 MG TAB PO SCH ×2 (08:46→20:22)
[2021-10-16] MEDS: PANTOPRAZOLE 40MG TABLET PO SCH ×2 (08:47→17:36)
[2021-10-16] MEDS: LEVOTHYROXINE SOD 0.075 MG TAB PO SCH (08:47)
[2021-10-16] MEDS: CLOPIDOGREL 75 MG TABLET PO SCH (08:47)
[2021-10-16] MEDS: TORSEMIDE 20 MG TAB PO SCH ×2 (08:48→20:22)
[2021-10-16] MEDS: CETIRIZINE HCL 5 MG TABLET PO SCH (08:48)
[2021-10-16] MEDS: TAMSULOSIN 0.4 MG SR CAP PO SCH (08:48)
[2021-10-16] MEDS: GABAPENTIN 300 MG CAP PO SCH ×2 (08:48→20:21)
[2021-10-16] MEDS: APIXABAN 2.5 MG TABLET PO SCH ×2 (08:48→20:21)
[2021-10-16] MEDS: carvediloL 6.25 MG TAB PO SCH ×2 (08:49→20:22)
[2021-10-16] MEDS: icosapent ethyL 1 GM CAP PO SCH ×2 (08:50→17:36)
--- NOTE | 2021-10-16 17:48 | R.PN ---
PROGRESS NOTES ENCOUNTER DATE AND TIME: 10/16/2021 17:34 (CDT) NAME MARCELA ALCARAZ DATE OF : 1935 DATE OF ADMISSION: 10/15/2021 11:50 (CDT) CHIEF COMPLAINT: Debility, GI bleed SUBJECTIVE: Pt denied any depression. Pt denied any Shortness of Breath. WBC 6.1, Hgb is low at 8.1, Hgb was 13.3 on 09/22/21 Hemocyte plus and ferrous sulfate daily. Since he had a GI bleed just prior to rehab admission, will recheck Hgb in two days. Ambulated 195' with two wheeled walker. O2 sat 89 to 94%. VITAL SIGNS SBP/DBP: 109/48 Pulse: 70 Resp: 16 MEDICATION ALLERGIES: No Known Drug Allergies (NKDA) ENVIRONMENTAL ALLERGIES: - Substance Allergies None Known - Other Allergies None Known NURSING: - Shower allowing shower PRECAUTIONS: - Fall Precaution SAFTY AND FALL ACTIVITIES OOB only with supervision THERAPIES: - Dietary and Nutrition Adequate Nutrition. Nutritional Education. Nutritional Supplements. Evaluate and Treat. - Occupational Therapy Cognitive Retraining. Patient needs Occupational Therapy for a daily minimum of 1.5 hours at least 5 out of 7 days, to improve Activities of Daily Living, including: Eating, Grooming, Bathing, Dressing, Toileting, Toilet Transfers, Community Reintegration, Higher functional activities, Adaptive Equipme nt, Splinting, Household Tasks, and Other activities as determined. Visual Perceptual Training. Evalu ate and Treat. Safety Awareness. Transfer Training. ADL Training. Patient/Family Education. UE Streng thening. Household Tasks. - Speech Therapy Cognitive Training. Expressive Language Skills. Memory Strategies. Patient needs Speech Therapy for a daily minimum of 1.5 hours at least 5 out of 7 days, to improve: Swallowing, Cognition, Language Ski lls, and Compensatory Strategies. Receptive Language Skills. Speech Intelligibility Training. Evaluat e and Treat. - Physical Therapy Patient needs Physical Therapy for a daily minimum of 1.5 hours at least 5 out of 7 days, to improve: Mobility, Strengthening, Transfers, Stretching, ROM, Endurance, Ability to manage stairs, Gait, and Balance. Mobility Training. Safety Awareness. Gait Training. Balance Training. Transfer Training. Tori luate and Treat. LE Strengthening. Modalities Training. 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 - MSK 4/5 weakness in both lower extremities. - Neuro No focal deficits - Psych No abnormalities ASSESSMENT: Pt. is a 86 yo Right-handed white male.On 10/12/2021 he was admitted to [facility] with di agnosis Debility. GI bleed.On 10/12/2021 he was admitted to [facility] with diagnosis Yecenia sanjiv.His impairment category is debility 3.9 other neurologic disorders.His impairment category is De bility.Pre-morbidly, Pt. was independent/mod-I in Locomotion, Safety Awareness, Social Cognition, Tra nsfers Control, and Balance; and he had good Transfers Control, Sphincter Control, Self-Care, Enduran ce, and Communication.Currently, he has deficits of Locomotion, Safety Awareness, Social Cognition, B alance, Transfers Control, Sphincter Control, Self-Care, Communication, and Endurance.Pt. is now refe rred to [facility] for acute in-patient rehabilitation in order to maximize tia abrams's functional independence in activities of daily living, strength, ROM, and mobility.- Rehab Go al Patient has realistic goal of being discharged at assistance level 7-Ind to reside at Home with Fami ly/Relatives. MDM/PLAN: - Physical Therapy Weakness - to improve, our physical therapists will perform initial evaluation of pt's status upon ad mission and devise an individualized program for Aquatic Therapy, Neuromuscular Reeducation, and Stre ngthening Poor balance - to improve, our physical therapists will perform initial evaluation of pt's status upo n admission and devise an individualized program for Balance Training Inability to transfer - to improve, our physical therapists will perform initial evaluation of pt's s tatus upon admission and devise an individualized program for Bed mobility Need in caregiver upon discharge - to improve, our physical therapists will perform initial evaluatio n of pt's status upon admission and devise an individualized program for Caregiver Training Poor endurance - to improve, our physical therapists will perform initial evaluation of pt's status u nereyda admission and devise an individualized program for Endurance Training Gait dysfunction - to improve, our physical therapists will perform initial evaluation of pt's status upon admission and devise an individualized program for Gait Training, and Wheel Chair mobility Need for home safety evaluation - to improve, our physical therapists will perform initial evaluation of pt's status upon admission and devise an individualized program for Home Evaluation New precaution - to improve, our physical therapists will perform initial evaluation of pt's status u nereyda admission and devise an individualized program for Patient precaution education Edema - to improve, our physical therapists will perform initial evaluation of pt's status upon admis polo and devise an individualized program for Elevation Training, and Lymphedema Therapy - Occupational Therapy Weakness - to improve, our occupation therapists will perform initial evaluation of pt's status upon admission and devise an individualized program for Aquatic Therapy, Balance, Endurance, UE ROM, and U E strengthening ADL deficits - to improve, our occupation therapists will perform initial evaluation of pt's status u nereyda admission and devise an individualized program for Bathing, Bed mobility, Community Reintegration , Cooking, Dressing, Eating, Fine Motor Skills, Grooming, Homemaking, Kitchen Mobility, Laundry, Cori ent Education, Safety Awareness, Splinting - Positioning, Transfers(Toilet, Tub, Shower), and Wheel C hair Management Need for customer care agent - to improve, our occupation therapists will perform initial evaluation of pt's s tatus upon admission and devise an individualized program for Caregiver Training Cognitive deficits - to improve, our occupation therapists will perform initial evaluation of pt's st atus upon admission and devise an individualized program for Cognition - orientation - Other See attached MAR (Medication Administration Record) - Diet Type Continue Regular - Diet - Liquid Texture Continue Regular - Tube Feed Continue N/A - Fall Precaution SAFTY AND FALL - Diet - Solid Texture Continue Regular - Shower allowing shower - Balance for Weakness - Bed mobility for ADL deficits - Lymphedema Therapy for Edema FUNCTIONAL STATUS: UPDATED AT WEEKLY TEAM CONFERENCE - Bladder Same accident frequency: 7-Ind - No accidents in the past 7 days - Bowel Same accident frequency: 7-Ind - No accidents in the past 7 days - Walking Same score based on distance walked: 0(N/A) - Wheelchair Same score based on distance traveled: 0(N/A) FUNCTIONAL STATUS: - Self-Care A. Eating Ind B. Grooming sup C. Bathing sup D. Dressing - Upper Navid E. Dressing - Lower modA F. Toileting Navid - Sphincter Control G. Bladder control sup H. Bowel control sup - Transfers Control I. Bed/Chair/Wheelchair Navid J. Toilet Navid K. Tub/Shower Navid - Locomotion L. Walk/Wheelchair (B) Navid M. Stairs maxA - Communication N. Comprehension (B) Rajat O. Expression (B) Rajat - Social Cognition P. Social Interaction Rajat Q. Problem Solving Rajat R. Memory Rajat - Endurance Fair - Balance Fair - Safety Awareness Good QI SCORES: - Self-Care A. Eating 03-Partial/moderate assistance B. Oral hygiene 03-Partial/moderate assistance C. Toileting hygiene 02-Substantial/maximal assistance E. Shower/bathe self 02-Substantial/maximal assistance F. Upper body dressing 03-Partial/moderate assistance G. Lower body dressing 02-Substantial/maximal assistance H. Putting on/taking off footwear 88-Not attempted due to medical condition or safety concerns - Mobility A. Roll left and right 03-Partial/moderate assistance B. Sit to lying 03-Partial/moderate assistance C. Lying to sitting on side of bed 03-Partial/moderate assistance D. Sit to stand 03-Partial/moderate assistance E. Chair/fjg-ob-einnl transfer 03-Partial/moderate assistance F. Toilet transfer 02-Substantial/maximal assistance G. Car transfer 88-Not attempted due to medical condition or safety concerns I. Walk 10 feet 03-Partial/moderate assistance J. Walk 50 feet with two turns 88-Not attempted due to medical condition or safety concerns K. Walk 150 feet 88-Not attempted due to medical condition or safety concerns L. Walking 10 feet on uneven surfaces 88-Not attempted due to medical condition or safety concerns M. 1 step (curb) 88-Not attempted due to medical condition or safety concerns N. 4 steps 88-Not attempted due to medical condition or safety concerns O. 12 steps 88-Not attempted due to medical condition or safety concerns P. Picking up object 88-Not attempted due to medical condition or safety concerns R. Wheel 50 feet with two turns 88-Not attempted due to medical condition or safety concerns S. Wheel 150 feet 88-Not attempted due to medical condition or safety concerns - Bladder and Bowel Bladder continence Bowel continence - Endurance Fair - Balance Poor - Safety Awareness Fair CURRENT [facility]. DEFICITS: Self-Care, Mobility, Endurance, Balance, and Safety Awareness SIGNATURE PANEL: (CDT)
[2021-10-16] MEDS: ZOLPIDEM TARTRATE 5 MG TABLET PO PRN ×2 (20:21→20:44)
[2021-10-17] MEDS: LEVOTHYROXINE SOD 0.075 MG TAB PO SCH (06:45)
[2021-10-17] MEDS: INSULIN -REGULAR HUMAN 50 UNIT/0.5 ML ML SQ SCH ×4 (07:30→20:54)
[2021-10-17] MEDS: PANTOPRAZOLE 40MG TABLET PO SCH ×2 (07:40→16:49)
[2021-10-17] MEDS: COLESEVELAM 625 MG PO SCH ×2 (08:00→20:00)
[2021-10-17] MEDS: INSULIN DEGLUDEC SQ SCH (08:00)
[2021-10-17] MEDS: icosapent ethyL 1 GM CAP PO SCH ×2 (08:30→16:49)
[2021-10-17] MEDS: FE SULF/FA/VIT B COMP & C TAB PO SCH (08:30)
[2021-10-17] MEDS: INSULIN LISPRO 100 UNIT/1 ML SQ SCH ×3 (08:30→16:50)
[2021-10-17] MEDS: APIXABAN 2.5 MG TABLET PO SCH ×2 (08:30→20:53)
[2021-10-17] MEDS: TORSEMIDE 20 MG TAB PO SCH ×2 (08:31→20:51)
[2021-10-17] MEDS: CLOPIDOGREL 75 MG TABLET PO SCH (08:31)
[2021-10-17] MEDS: FERROUS SULFATE 325 MG TAB PO SCH (08:31)
[2021-10-17] MEDS: GABAPENTIN 300 MG CAP PO SCH ×2 (08:31→20:51)
[2021-10-17] MEDS: TAMSULOSIN 0.4 MG SR CAP PO SCH (08:31)
[2021-10-17] MEDS: CETIRIZINE HCL 5 MG TABLET PO SCH (08:32)
[2021-10-17] MEDS: DONEPEZIL HCL 5 MG TAB PO SCH ×2 (08:32→20:53)
[2021-10-17] MEDS: carvediloL 6.25 MG TAB PO SCH ×2 (08:32→20:53)
[2021-10-17] MEDS: ACETAMINOPHEN 500 MG TAB PO PRN (08:33)
[2021-10-17] MEDS: MEDIHONEY 44 ML TOPICAL TUBE TOP SCH (10:41)
--- NOTE | 2021-10-17 17:58 | R.PN ---
PROGRESS NOTES ENCOUNTER DATE AND TIME: 10/17/2021 17:54 (CDT) NAME MARCELA ALCARAZ DATE OF : 1935 DATE OF ADMISSION: 10/15/2021 11:50 (CDT) CHIEF COMPLAINT: Debility, GI bleed SUBJECTIVE: Pt denied any depression. Pt denied any Shortness of Breath. Glucose 92 to 154. WBC 6.1, Hgb is low at 8.1, Hgb was 13.3 on 09/22/21 Hemocyte plus and ferrous sulfate daily. Since he had a GI bleed just prior to rehab admission, will recheck Hgb in two days. Ambulated 350' with two wheeled walker and contact guard assistance. Self-propelled wheelchair 250' w ith contact guard assistance. VITAL SIGNS SBP/DBP: 111/60 Temperature: 97.8 F Pulse: 70 Resp: 18 MEDICATION ALLERGIES: No Known Drug Allergies (NKDA) ENVIRONMENTAL ALLERGIES: - Substance Allergies None Known - Other Allergies None Known NURSING: - Shower allowing shower PRECAUTIONS: - Fall Precaution SAFTY AND FALL ACTIVITIES OOB only with supervision THERAPIES: - Dietary and Nutrition Adequate Nutrition. Nutritional Education. Nutritional Supplements. Evaluate and Treat. - Occupational Therapy Cognitive Retraining. Patient needs Occupational Therapy for a daily minimum of 1.5 hours at least 5 out of 7 days, to improve Activities of Daily Living, including: Eating, Grooming, Bathing, Dressing, Toileting, Toilet Transfers, Community Reintegration, Higher functional activities, Adaptive Equipme nt, Splinting, Household Tasks, and Other activities as determined. Visual Perceptual Training. Evalu ate and Treat. Safety Awareness. Transfer Training. ADL Training. Patient/Family Education. UE Streng thening. Household Tasks. - Speech Therapy Cognitive Training. Expressive Language Skills. Memory Strategies. Patient needs Speech Therapy for a daily minimum of 1.5 hours at least 5 out of 7 days, to improve: Swallowing, Cognition, Language Ski lls, and Compensatory Strategies. Receptive Language Skills. Speech Intelligibility Training. Evaluat e and Treat. - Physical Therapy Patient needs Physical Therapy for a daily minimum of 1.5 hours at least 5 out of 7 days, to improve: Mobility, Strengthening, Transfers, Stretching, ROM, Endurance, Ability to manage stairs, Gait, and Balance. Mobility Training. Safety Awareness. Gait Training. Balance Training. Transfer Training. Tori luate and Treat. LE Strengthening. Modalities Training. 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 - MSK 4/5 weakness in both lower extremities. - Neuro No focal deficits - Psych No abnormalities ASSESSMENT: Pt. is a 86 yo Right-handed white male.On 10/12/2021 he was admitted to [facility] with di agnosis Debility. GI bleed.On 10/12/2021 he was admitted to [facility] with diagnosis Yecenia lity.His impairment category is debility 3.9 other neurologic disorders.His impairment category is De bility.Pre-morbidly, Pt. was independent/mod-I in Locomotion, Safety Awareness, Social Cognition, Tra nsfers Control, and Balance; and he had good Transfers Control, Sphincter Control, Self-Care, Enduran ce, and Communication.Currently, he has deficits of Locomotion, Safety Awareness, Social Cognition, B alance, Transfers Control, Sphincter Control, Self-Care, Communication, and Endurance.Pt. is now refe rred to [facility] for acute in-patient rehabilitation in order to maximize tia abrams's functional independence in activities of daily living, strength, ROM, and mobility.- Rehab Go al Patient has realistic goal of being discharged at assistance level 7-Ind to reside at Home with Fami ly/Relatives. MDM/PLAN: - Physical Therapy Weakness - to improve, our physical therapists will perform initial evaluation of pt's status upon a dmission and devise an individualized program for Aquatic Therapy, Neuromuscular Reeducation, and Str engthening Poor balance - to improve, our physical therapists will perform initial evaluation of pt's status up on admission and devise an individualized program for Balance Training Inability to transfer - to improve, our physical therapists will perform initial evaluation of pt's status upon admission and devise an individualized program for Bed mobility Need in caregiver upon discharge - to improve, our physical therapists will perform initial evaluati on of pt's status upon admission and devise an individualized program for Caregiver Training Poor endurance - to improve, our physical therapists will perform initial evaluation of pt's status upon admission and devise an individualized program for Endurance Training Gait dysfunction - to improve, our physical therapists will perform initial evaluation of pt's statu s upon admission and devise an individualized program for Gait Training, and Wheel Chair mobility Need for home safety evaluation - to improve, our physical therapists will perform initial evaluatio n of pt's status upon admission and devise an individualized program for Home Evaluation New precaution - to improve, our physical therapists will perform initial evaluation of pt's status upon admission and devise an individualized program for Patient precaution education Edema - to improve, our physical therapists will perform initial evaluation of pt's status upon admi ssion and devise an individualized program for Elevation Training, and Lymphedema Therapy - Occupational Therapy Weakness - to improve, our occupation therapists will perform initial evaluation of pt's status upon admission and devise an individualized program for Aquatic Therapy, Balance, Endurance, UE ROM, and UE strengthening ADL deficits - to improve, our occupation therapists will perform initial evaluation of pt's status upon admission and devise an individualized program for Bathing, Bed mobility, Community Reintegratio n, Cooking, Dressing, Eating, Fine Motor Skills, Grooming, Homemaking, Kitchen Mobility, Laundry, Pat ient Education, Safety Awareness, Splinting - Positioning, Transfers(Toilet, Tub, Shower), and Wheel Chair Management Need for tree care foreman - to improve, our occupation therapists will perform initial evaluation of pt's status upon admission and devise an individualized program for Caregiver Training Cognitive deficits - to improve, our occupation therapists will perform initial evaluation of pt's s tatus upon admission and devise an individualized program for Cognition - orientation - Other See attached MAR (Medication Administration Record) - Diet Type Continue Regular - Diet - Liquid Texture Continue Regular - Tube Feed Continue N/A - Fall Precaution SAFTY AND FALL - Diet - Solid Texture Continue Regular - Shower allowing shower - Balance for Weakness - Bed mobility for ADL deficits - Lymphedema Therapy for Edema FUNCTIONAL STATUS: UPDATED AT WEEKLY TEAM CONFERENCE - Bladder Same accident frequency: 7-Ind - No accidents in the past 7 days - Bowel Same accident frequency: 7-Ind - No accidents in the past 7 days - Walking Same score based on distance walked: 0(N/A) - Wheelchair Same score based on distance traveled: 0(N/A) FUNCTIONAL STATUS: - Self-Care A. Eating Ind B. Grooming sup C. Bathing sup D. Dressing - Upper Navid E. Dressing - Lower modA F. Toileting Navid - Sphincter Control G. Bladder control sup H. Bowel control sup - Transfers Control I. Bed/Chair/Wheelchair Navid J. Toilet Navid K. Tub/Shower Navid - Locomotion L. Walk/Wheelchair (B) Navid M. Stairs maxA - Communication N. Comprehension (B) Rajat O. Expression (B) Rajat - Social Cognition P. Social Interaction Rajat Q. Problem Solving Rajat R. Memory Rajat - Endurance Fair - Balance Fair - Safety Awareness Good QI SCORES: - Self-Care A. Eating 03-Partial/moderate assistance B. Oral hygiene 03-Partial/moderate assistance C. Toileting hygiene 02-Substantial/maximal assistance E. Shower/bathe self 02-Substantial/maximal assistance F. Upper body dressing 03-Partial/moderate assistance G. Lower body dressing 02-Substantial/maximal assistance H. Putting on/taking off footwear 88-Not attempted due to medical condition or safety concerns - Mobility A. Roll left and right 03-Partial/moderate assistance B. Sit to lying 03-Partial/moderate assistance C. Lying to sitting on side of bed 03-Partial/moderate assistance D. Sit to stand 03-Partial/moderate assistance E. Chair/xpl-os-nizbo transfer 03-Partial/moderate assistance F. Toilet transfer 02-Substantial/maximal assistance G. Car transfer 88-Not attempted due to medical condition or safety concerns I. Walk 10 feet 03-Partial/moderate assistance J. Walk 50 feet with two turns 88-Not attempted due to medical condition or safety concerns K. Walk 150 feet 88-Not attempted due to medical condition or safety concerns L. Walking 10 feet on uneven surfaces 88-Not attempted due to medical condition or safety concerns M. 1 step (curb) 88-Not attempted due to medical condition or safety concerns N. 4 steps 88-Not attempted due to medical condition or safety concerns O. 12 steps 88-Not attempted due to medical condition or safety concerns P. Picking up object 88-Not attempted due to medical condition or safety concerns R. Wheel 50 feet with two turns 88-Not attempted due to medical condition or safety concerns S. Wheel 150 feet 88-Not attempted due to medical condition or safety concerns - Bladder and Bowel Bladder continence Bowel continence - Endurance Fair - Balance Poor - Safety Awareness Fair CURRENT [facility]. DEFICITS: Self-Care, Mobility, Endurance, Balance, and Safety Awareness SIGNATURE PANEL: (CDT)
[2021-10-17] MEDS: JUVEN PACKET PO SCH (20:53)
[2021-10-17] MEDS: ZOLPIDEM TARTRATE 5 MG TABLET PO PRN (20:59)
[2021-10-18 04:49] LABS: Absolute Lymphocytes (CBC) 1.8 K/uL (0.7-4.9); Hematocrit 26.5 % (39.6-49.0); Lymphocytes % 27.8 % (15.3-44.8); RBC Red Blood Cell Count 3.13 M/uL (4.33-5.43)
[2021-10-18] MEDS: LEVOTHYROXINE SOD 0.075 MG TAB PO SCH (05:07)
[2021-10-18 05:09] LABS: Albumin 2.3 g/dL (3.4-5.0); Prealbumin 15.2 mg/dL (20-40)
[2021-10-18] MEDS: INSULIN -REGULAR HUMAN 50 UNIT/0.5 ML ML SQ SCH ×4 (07:30→19:35)
[2021-10-18] MEDS: JUVEN PACKET PO SCH ×2 (08:00→19:35)
[2021-10-18] MEDS: COLESEVELAM 625 MG PO SCH ×2 (08:00→19:35)
[2021-10-18] MEDS: INSULIN DEGLUDEC SQ SCH (08:00)
[2021-10-18] MEDS ORDERED: INSULIN LISPRO 100 UNIT/1 ML SQ SCH (08:00)
[2021-10-18] MEDS: GABAPENTIN 300 MG CAP PO SCH ×2 (08:24→19:33)
[2021-10-18] MEDS: CETIRIZINE HCL 5 MG TABLET PO SCH (08:24)
[2021-10-18] MEDS: INSULIN LISPRO 100 UNIT/1 ML SQ SCH ×3 (08:24→17:00)
[2021-10-18] MEDS: carvediloL 6.25 MG TAB PO SCH ×2 (08:25→19:34)
[2021-10-18] MEDS: icosapent ethyL 1 GM CAP PO SCH ×2 (08:25→17:27)
[2021-10-18] MEDS: DONEPEZIL HCL 5 MG TAB PO SCH ×2 (08:25→19:33)
[2021-10-18] MEDS: FE SULF/FA/VIT B COMP & C TAB PO SCH (08:26)
[2021-10-18] MEDS: APIXABAN 2.5 MG TABLET PO SCH ×2 (08:26→19:33)
[2021-10-18] MEDS: PANTOPRAZOLE 40MG TABLET PO SCH ×2 (08:26→17:27)
[2021-10-18] MEDS: TORSEMIDE 20 MG TAB PO SCH ×2 (08:26→19:33)
[2021-10-18] MEDS: TAMSULOSIN 0.4 MG SR CAP PO SCH (08:26)
[2021-10-18] MEDS: ACETAMINOPHEN 500 MG TAB PO PRN (08:27)
[2021-10-18] MEDS: CLOPIDOGREL 75 MG TABLET PO SCH (08:27)
[2021-10-18] MEDS: FERROUS SULFATE 325 MG TAB PO SCH (08:27)
--- NOTE | 2021-10-18 09:59 | P.RH.PN ---
Estimated Length of Stay: 13 Expected Discharge Date: 10/28/21 Discharge Disposition Plan: Home Family Support: Yes Intermediate Goal: Mobility, Transfers, Self Care Vital Signs: Last Vital Signs Temp 96.9 F 10/18/21 07:40 Pulse 68 10/18/21 08:26 Resp 16 10/18/21 07:40 BP 129/60 10/18/21 08:26 Pulse Ox 953 10/18/21 07:40 Laboratory: Laboratory Last Values WBC 6.4 K/uL (4.3-10.9) 10/18/21 04:15 RBC 3.13 M/uL (4.33-5.43) L 10/18/21 04:15 Hgb 8.5 g/dL (13.6-17.9) L 10/18/21 04:15 Hct 26.5 % (39.6-49.0) L 10/18/21 04:15 MCV 84.9 fL (80-100) 10/18/21 04:15 MCH 27.3 pg (27.0-35.0) 10/18/21 04:15 MCHC 32.1 g/dL (32.0-36.0) 10/18/21 04:15 RDW 19.7 % (12.1-15.2) H 10/18/21 04:15 Plt Count 186 K/uL (152-406) 10/18/21 04:15 MPV 8.0 fL (7.6-11.3) 10/18/21 04:15 Neutrophils % 59.3 % (41.7-73.7) 10/18/21 04:15 Lymphocytes % 27.8 % (15.3-44.8) 10/18/21 04:15 Monocytes % 8.7 % (3.3-12.3) 10/18/21 04:15 Eosinophils % 3.6 % (0-4.4) 10/18/21 04:15 Basophils % 0.6 % (0-1.3) 10/18/21 04:15 Absolute Neutrophils 3.8 K/uL (1.8-8.0) 10/18/21 04:15 Absolute Lymphocytes 1.8 K/uL (0.7-4.9) 10/18/21 04:15 Absolute Monocytes 0.6 K/uL (0.1-1.3) 10/18/21 04:15 Absolute Eosinophils 0.2 K/uL (0-0.5) 10/18/21 04:15 Absolute Basophils 0.0 K/uL (0-0.5) 10/18/21 04:15 Sodium 138 mmol/L (136-145) 10/18/21 04:15 Potassium 4.0 mmol/L (3.5-5.1) 10/18/21 04:15 Chloride 104 mmol/L (98-107) 10/18/21 04:15 Carbon Dioxide 28 mmol/L (21-32) 10/18/21 04:15 BUN 60 mg/dL (7-18) H 10/18/21 04:15 Creatinine 2.24 mg/dL (0.55-1.3) H 10/18/21 04:15 Estimated GFR 28 mL/min (=/>90) L 10/18/21 04:15 Glucose 179 mg/dL (74-106) H 10/18/21 04:15 POC Glucose 144 mg/dL (65-120) H 10/18/21 08:15 Calcium 7.5 mg/dL (8.5-10.1) L 10/18/21 04:15 Magnesium 2.0 mg/dL (1.8-2.4) 10/18/21 04:15 Albumin 2.3 g/dL (3.4-5.0) L 10/18/21 04:15 Prealbumin 15.2 mg/dL (20-40) L 10/18/21 04:15 Urine Color Yellow (Yellow) 10/15/21 14:35 Urine Appearance Cloudy (Clear) 10/15/21 14:35 Urine pH 5.5 (5.0-7.0) 10/15/21 14:35 Ur Specific [place] 1.010 (1.005-1.030) 10/15/21 14:35 Glucose (UA)(Auto) Negative (Negative) 10/15/21 14:35 Urine Ketones Negative (Negative) 10/15/21 14:35 Urine Blood 1+ (Negative) H 10/15/21 14:35 Urine Nitrite Negative (Negative) 10/15/21 14:35 Urine Bilirubin Negative (Negative) 10/15/21 14:35 Urine Urobilinogen 0.2 mg/dL (0.2-1.0) 10/15/21 14:35 Ur Leukocyte Esterase 3+ (Negative) H 10/15/21 14:35 Urine RBC <5 /HPF (NONE SEEN) 10/15/21 14:35 Urine WBC 20-50 /HPF (<5) H 10/15/21 14:35 Ur Squamous Epith Cells <5 /HPF (NONE SEEN) 10/15/21 14:35 Urine Bacteria >50 /HPF (NONE SEEN) H 10/15/21 14:35 Urine Culture Reflexed Reflexed 10/15/21 14:35 Urine Total Protein Negative (Negative) 10/15/21 14:35 SARS-CoV-2 Rap RNA(RT-PCR) Negative (NEGATIVE) 10/15/21 15:00 Weight: 206 lb Wound Present: Yes Closed Surgical Incision Present: No Physician Update: Labs were reviewed. She is doing fairly well with all therapy. CGA for sit to stand, stand and pivot, walking 110', kyphotic posturing, wheelchair 250' with CGA. Grooming standby with setup. Needs max assitance for bathing, dependent for footware. Mod assist with shower transfer. Comment: multiple bruising noted on ext and abd Summary: Patient's care plan and penitentiary goals have been reviewed and revised as necessary. Please see the Rehabilitation Signature page for all necessary signatures.
--- NOTE | 2021-10-18 11:43 | RAD REPORT ---
EXAM DESCRIPTION: RAD - Chest Single View - 10/18/2021 11:35 am CLINICAL HISTORY: R/O pneumonia COMPARISON: Portable 08/12/2021 TECHNIQUE: AP portable chest image was obtained 10/18/2021 11:35 am . FINDINGS: Lung volumes are low. Chronic interstitial pattern is not clearly different from compariso n. No peripheral consolidation or focal pneumonia finding seen. Cardiac silhouette is enlarged but not clearly different. Defibrillator is in place. Pulmonary vascu lature not outside of normal range. Significant failure or volume overload are not suspected. No measurable pleural effusion and no pneumothorax. No acute bony abnormality seen. No acute aortic findings suspected. IMPRESSION: Chronic interstitial lung pattern without a focal infiltrate seen. Significant failure or volume overload are not suspected.
[2021-10-18] MEDS: MEDIHONEY 44 ML TOPICAL TUBE TOP SCH (12:26)
[2021-10-18] MEDS: ZOLPIDEM TARTRATE 5 MG TABLET PO PRN (19:33)
[2021-10-19] MEDS: LEVOTHYROXINE SOD 0.075 MG TAB PO SCH (05:22)
[2021-10-19] MEDS: INSULIN -REGULAR HUMAN 50 UNIT/0.5 ML ML SQ SCH ×4 (07:30→21:00)
[2021-10-19] MEDS: ACETAMINOPHEN 500 MG TAB PO PRN (07:36)
[2021-10-19] MEDS: GABAPENTIN 300 MG CAP PO SCH ×2 (07:37→20:06)
[2021-10-19] MEDS: TORSEMIDE 20 MG TAB PO SCH ×2 (07:39→20:09)
[2021-10-19] MEDS: carvediloL 6.25 MG TAB PO SCH ×2 (07:39→20:10)
[2021-10-19] MEDS: JUVEN PACKET PO SCH ×2 (07:40→20:00)
[2021-10-19] MEDS: icosapent ethyL 1 GM CAP PO SCH ×2 (07:40→17:05)
[2021-10-19] MEDS: FERROUS SULFATE 325 MG TAB PO SCH (07:40)
[2021-10-19] MEDS: CETIRIZINE HCL 5 MG TABLET PO SCH (07:40)
[2021-10-19] MEDS: FE SULF/FA/VIT B COMP & C TAB PO SCH (07:40)
[2021-10-19] MEDS: PANTOPRAZOLE 40MG TABLET PO SCH ×2 (07:40→17:05)
[2021-10-19] MEDS: CLOPIDOGREL 75 MG TABLET PO SCH (07:40)
[2021-10-19] MEDS: APIXABAN 2.5 MG TABLET PO SCH ×2 (07:41→20:05)
[2021-10-19] MEDS: TAMSULOSIN 0.4 MG SR CAP PO SCH (07:41)
[2021-10-19] MEDS: DONEPEZIL HCL 5 MG TAB PO SCH ×2 (07:41→20:05)
[2021-10-19] MEDS: INSULIN DEGLUDEC SQ SCH (08:00)
[2021-10-19] MEDS: COLESEVELAM 625 MG PO SCH ×2 (08:00→20:00)
[2021-10-19] MEDS: INSULIN LISPRO 100 UNIT/1 ML SQ SCH ×4 (08:21→17:05)
[2021-10-19] MEDS: MEDIHONEY 44 ML TOPICAL TUBE TOP SCH (12:28)
[2021-10-19] MEDS: ZOLPIDEM TARTRATE 5 MG TABLET PO PRN (20:05)
[2021-10-19] MEDS: DOCUSATE NA/SENNA CONC 1 TAB PO PRN (20:05)
[2021-10-20] MEDS: INSULIN -REGULAR HUMAN 50 UNIT/0.5 ML ML SQ SCH ×4 (07:30→19:28)
[2021-10-20] MEDS: INSULIN DEGLUDEC SQ SCH (08:00)
[2021-10-20] MEDS: JUVEN PACKET PO SCH ×2 (08:00→19:27)
[2021-10-20] MEDS: COLESEVELAM 625 MG PO SCH ×2 (08:00→19:27)
[2021-10-20] MEDS: GABAPENTIN 300 MG CAP PO SCH ×2 (08:17→19:25)
[2021-10-20] MEDS: FE SULF/FA/VIT B COMP & C TAB PO SCH (08:17)
[2021-10-20] MEDS: FERROUS SULFATE 325 MG TAB PO SCH (08:17)
[2021-10-20] MEDS: TORSEMIDE 20 MG TAB PO SCH ×2 (08:17→19:26)
[2021-10-20] MEDS: carvediloL 6.25 MG TAB PO SCH ×2 (08:18→19:25)
[2021-10-20] MEDS: DONEPEZIL HCL 5 MG TAB PO SCH ×2 (08:18→19:25)
[2021-10-20] MEDS: LEVOTHYROXINE SOD 0.075 MG TAB PO SCH (08:18)
[2021-10-20] MEDS: TAMSULOSIN 0.4 MG SR CAP PO SCH (08:18)
[2021-10-20] MEDS: PANTOPRAZOLE 40MG TABLET PO SCH ×2 (08:19→16:52)
[2021-10-20] MEDS: CLOPIDOGREL 75 MG TABLET PO SCH (08:19)
[2021-10-20] MEDS: CETIRIZINE HCL 5 MG TABLET PO SCH (08:19)
[2021-10-20] MEDS: APIXABAN 2.5 MG TABLET PO SCH ×2 (08:19→19:26)
[2021-10-20] MEDS: INSULIN LISPRO 100 UNIT/1 ML SQ SCH ×3 (08:20→17:00)
[2021-10-20] MEDS: icosapent ethyL 1 GM CAP PO SCH ×2 (08:24→16:52)
[2021-10-20] MEDS: MEDIHONEY 44 ML TOPICAL TUBE TOP SCH (12:55)
[2021-10-20] MEDS: ZOLPIDEM TARTRATE 5 MG TABLET PO PRN (19:30)
[2021-10-21] MEDS: INSULIN -REGULAR HUMAN 50 UNIT/0.5 ML ML SQ SCH ×4 (07:30→19:47)
[2021-10-21] MEDS: LEVOTHYROXINE SOD 0.075 MG TAB PO SCH (07:30)
[2021-10-21] MEDS: MEDIHONEY 44 ML TOPICAL TUBE TOP SCH (08:00)
[2021-10-21] MEDS: INSULIN DEGLUDEC SQ SCH (08:00)
[2021-10-21] MEDS: COLESEVELAM 625 MG PO SCH ×2 (08:00→19:47)
[2021-10-21] MEDS: JUVEN PACKET PO SCH ×2 (08:00→19:47)
[2021-10-21] MEDS: icosapent ethyL 1 GM CAP PO SCH ×2 (08:24→17:02)
[2021-10-21] MEDS: INSULIN LISPRO 100 UNIT/1 ML SQ SCH ×3 (08:24→17:02)
[2021-10-21] MEDS: FE SULF/FA/VIT B COMP & C TAB PO SCH (08:25)
[2021-10-21] MEDS: CLOPIDOGREL 75 MG TABLET PO SCH (08:25)
[2021-10-21] MEDS: DONEPEZIL HCL 5 MG TAB PO SCH ×2 (08:26→19:46)
[2021-10-21] MEDS: carvediloL 6.25 MG TAB PO SCH ×2 (08:26→19:47)
[2021-10-21] MEDS: FERROUS SULFATE 325 MG TAB PO SCH (08:26)
[2021-10-21] MEDS: CETIRIZINE HCL 5 MG TABLET PO SCH (08:26)
[2021-10-21] MEDS: GABAPENTIN 300 MG CAP PO SCH ×2 (08:26→19:46)
[2021-10-21] MEDS: PANTOPRAZOLE 40MG TABLET PO SCH ×2 (08:26→17:02)
[2021-10-21] MEDS: TAMSULOSIN 0.4 MG SR CAP PO SCH (08:27)
[2021-10-21] MEDS: TORSEMIDE 20 MG TAB PO SCH ×2 (08:27→19:47)
[2021-10-21] MEDS: APIXABAN 2.5 MG TABLET PO SCH ×2 (08:27→19:46)
[2021-10-21] MEDS: ZOLPIDEM TARTRATE 5 MG TABLET PO PRN (19:46)
[2021-10-22] MEDS: LEVOTHYROXINE SOD 0.075 MG TAB PO SCH (05:07)
[2021-10-22] MEDS: JUVEN PACKET PO SCH ×2 (07:25→19:14)
[2021-10-22] MEDS: DONEPEZIL HCL 5 MG TAB PO SCH ×2 (07:25→19:11)
[2021-10-22] MEDS: PANTOPRAZOLE 40MG TABLET PO SCH ×2 (07:25→16:54)
[2021-10-22] MEDS: GABAPENTIN 300 MG CAP PO SCH ×2 (07:26→19:11)
[2021-10-22] MEDS: FE SULF/FA/VIT B COMP & C TAB PO SCH (07:26)
[2021-10-22] MEDS: carvediloL 6.25 MG TAB PO SCH ×2 (07:26→20:00)
[2021-10-22] MEDS: CETIRIZINE HCL 5 MG TABLET PO SCH (07:26)
[2021-10-22] MEDS: FERROUS SULFATE 325 MG TAB PO SCH (07:26)
[2021-10-22] MEDS: icosapent ethyL 1 GM CAP PO SCH ×2 (07:27→16:55)
[2021-10-22] MEDS: CLOPIDOGREL 75 MG TABLET PO SCH (07:28)
[2021-10-22] MEDS: TAMSULOSIN 0.4 MG SR CAP PO SCH (07:28)
[2021-10-22] MEDS: TORSEMIDE 20 MG TAB PO SCH ×2 (07:28→20:00)
[2021-10-22] MEDS: APIXABAN 2.5 MG TABLET PO SCH ×2 (07:28→19:13)
[2021-10-22] MEDS: INSULIN -REGULAR HUMAN 50 UNIT/0.5 ML ML SQ SCH ×4 (07:30→19:54)
[2021-10-22] MEDS: COLESEVELAM 625 MG PO SCH ×2 (08:00→19:54)
[2021-10-22] MEDS: INSULIN DEGLUDEC SQ SCH (08:00)
[2021-10-22] MEDS: INSULIN LISPRO 100 UNIT/1 ML SQ SCH ×3 (08:11→16:55)
[2021-10-22] MEDS: MEDIHONEY 44 ML TOPICAL TUBE TOP SCH (14:22)
[2021-10-22] MEDS: DIVALPROEX DR 250 MG TAB PO SCH (14:22)
--- NOTE | 2021-10-22 17:49 | R.PN ---
PROGRESS NOTES ENCOUNTER DATE AND TIME: 10/22/2021 17:45 (CDT) NAME MARCELA ALCARAZ DATE OF : 1935 DATE OF ADMISSION: 10/15/2021 11:50 (CDT) CHIEF COMPLAINT: Debility, GI bleed SUBJECTIVE: Pt denied any depression. Pt denied any Shortness of Breath. Glucose 92 to 154. WBC 6.4, Hgb is low at 8.5, Hgb was 8.1 on 10/16/21. Hemocyte plus and ferrous sulfate daily. Since he had a GI bleed just prior to rehab admission, will recheck Hgb in two days. Ambulated 525' with two wheeled walker and contact guard assistance. VITAL SIGNS SBP/DBP: 138/59 Temperature: 97.6 F Pulse: 70 Resp: 16 MEDICATION ALLERGIES: No Known Drug Allergies (NKDA) ENVIRONMENTAL ALLERGIES: - Substance Allergies None Known - Other Allergies None Known NURSING: - Shower allowing shower PRECAUTIONS: - Fall Precaution SAFTY AND FALL ACTIVITIES OOB only with supervision THERAPIES: - Dietary and Nutrition Adequate Nutrition. Nutritional Education. Nutritional Supplements. Evaluate and Treat. - Occupational Therapy Cognitive Retraining. Patient needs Occupational Therapy for a daily minimum of 1.5 hours at least 5 out of 7 days, to improve Activities of Daily Living, including: Eating, Grooming, Bathing, Dressing, Toileting, Toilet Transfers, Community Reintegration, Higher functional activities, Adaptive Equipme nt, Splinting, Household Tasks, and Other activities as determined. Visual Perceptual Training. Evalu ate and Treat. Safety Awareness. Transfer Training. ADL Training. Patient/Family Education. UE Streng thening. Household Tasks. - Speech Therapy Cognitive Training. Expressive Language Skills. Memory Strategies. Patient needs Speech Therapy for a daily minimum of 1.5 hours at least 5 out of 7 days, to improve: Swallowing, Cognition, Language Ski lls, and Compensatory Strategies. Receptive Language Skills. Speech Intelligibility Training. Evaluat e and Treat. - Physical Therapy Patient needs Physical Therapy for a daily minimum of 1.5 hours at least 5 out of 7 days, to improve: Mobility, Strengthening, Transfers, Stretching, ROM, Endurance, Ability to manage stairs, Gait, and Balance. Mobility Training. Safety Awareness. Gait Training. Balance Training. Transfer Training. Tori luate and Treat. LE Strengthening. Modalities Training. 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 - MSK 4/5 weakness in both lower extremities. - Neuro No focal deficits - Psych No abnormalities ASSESSMENT: Pt. is a 86 yo Right-handed white male.On 10/12/2021 he was admitted to [facility] with di agnosis Debility. GI bleed.On 10/12/2021 he was admitted to [facility] with diagnosis Yecenia genay.His impairment category is debility 3.9 other neurologic disorders.His impairment category is De bility.Pre-morbidly, Pt. was independent/mod-I in Locomotion, Safety Awareness, Social Cognition, Tra nsfers Control, and Balance; and he had good Transfers Control, Sphincter Control, Self-Care, Enduran ce, and Communication.Currently, he has deficits of Locomotion, Safety Awareness, Social Cognition, B alance, Transfers Control, Sphincter Control, Self-Care, Communication, and Endurance.Pt. is now refe rred to [facility] for acute in-patient rehabilitation in order to maximize tia abrams's functional independence in activities of daily living, strength, ROM, and mobility.- Rehab Go al Patient has realistic goal of being discharged at assistance level 7-Ind to reside at Home with Fami ly/Relatives. MDM/PLAN: - Physical Therapy Weakness - to improve, our physical therapists will perform initial evaluation of pt's status upon a dmission and devise an individualized program for Aquatic Therapy, Neuromuscular Reeducation, and Str engthening Poor balance - to improve, our physical therapists will perform initial evaluation of pt's status up on admission and devise an individualized program for Balance Training Inability to transfer - to improve, our physical therapists will perform initial evaluation of pt's status upon admission and devise an individualized program for Bed mobility Need in caregiver upon discharge - to improve, our physical therapists will perform initial evaluati on of pt's status upon admission and devise an individualized program for Caregiver Training Poor endurance - to improve, our physical therapists will perform initial evaluation of pt's status upon admission and devise an individualized program for Endurance Training Gait dysfunction - to improve, our physical therapists will perform initial evaluation of pt's statu s upon admission and devise an individualized program for Gait Training, and Wheel Chair mobility Need for home safety evaluation - to improve, our physical therapists will perform initial evaluatio n of pt's status upon admission and devise an individualized program for Home Evaluation New precaution - to improve, our physical therapists will perform initial evaluation of pt's status upon admission and devise an individualized program for Patient precaution education Edema - to improve, our physical therapists will perform initial evaluation of pt's status upon admi ssion and devise an individualized program for Elevation Training, and Lymphedema Therapy - Occupational Therapy Weakness - to improve, our occupation therapists will perform initial evaluation of pt's status upon admission and devise an individualized program for Aquatic Therapy, Balance, Endurance, UE ROM, and UE strengthening ADL deficits - to improve, our occupation therapists will perform initial evaluation of pt's status upon admission and devise an individualized program for Bathing, Bed mobility, Community Reintegratio n, Cooking, Dressing, Eating, Fine Motor Skills, Grooming, Homemaking, Kitchen Mobility, Laundry, Pat ient Education, Safety Awareness, Splinting - Positioning, Transfers(Toilet, Tub, Shower), and Wheel Chair Management Need for director of career services - to improve, our occupation therapists will perform initial evaluation of pt's status upon admission and devise an individualized program for Caregiver Training Cognitive deficits - to improve, our occupation therapists will perform initial evaluation of pt's s tatus upon admission and devise an individualized program for Cognition - orientation - Other See attached MAR (Medication Administration Record) - Diet Type Continue Regular - Diet - Liquid Texture Continue Regular - Tube Feed Continue N/A - Fall Precaution SAFTY AND FALL - Diet - Solid Texture Continue Regular - Shower allowing shower - Balance for Weakness - Bed mobility for ADL deficits - Lymphedema Therapy for Edema FUNCTIONAL STATUS: UPDATED AT WEEKLY TEAM CONFERENCE - Bladder Same accident frequency: 7-Ind - No accidents in the past 7 days - Bowel Same accident frequency: 7-Ind - No accidents in the past 7 days - Walking Same score based on distance walked: 0(N/A) - Wheelchair Same score based on distance traveled: 0(N/A) FUNCTIONAL STATUS: - Self-Care A. Eating Ind B. Grooming sup C. Bathing sup D. Dressing - Upper Navid E. Dressing - Lower modA F. Toileting Navid - Sphincter Control G. Bladder control sup H. Bowel control sup - Transfers Control I. Bed/Chair/Wheelchair Navid J. Toilet Navid K. Tub/Shower Navid - Locomotion L. Walk/Wheelchair (B) Navid M. Stairs maxA - Communication N. Comprehension (B) Rajat O. Expression (B) Rajat - Social Cognition P. Social Interaction Rajat Q. Problem Solving Rajat R. Memory Rajat - Endurance Fair - Balance Fair - Safety Awareness Good QI SCORES: - Self-Care A. Eating 03-Partial/moderate assistance B. Oral hygiene 03-Partial/moderate assistance C. Toileting hygiene 02-Substantial/maximal assistance E. Shower/bathe self 02-Substantial/maximal assistance F. Upper body dressing 03-Partial/moderate assistance G. Lower body dressing 02-Substantial/maximal assistance H. Putting on/taking off footwear 88-Not attempted due to medical condition or safety concerns - Mobility A. Roll left and right 03-Partial/moderate assistance B. Sit to lying 03-Partial/moderate assistance C. Lying to sitting on side of bed 03-Partial/moderate assistance D. Sit to stand 03-Partial/moderate assistance E. Chair/gmr-rh-rbyhm transfer 03-Partial/moderate assistance F. Toilet transfer 02-Substantial/maximal assistance G. Car transfer 88-Not attempted due to medical condition or safety concerns I. Walk 10 feet 03-Partial/moderate assistance J. Walk 50 feet with two turns 88-Not attempted due to medical condition or safety concerns K. Walk 150 feet 88-Not attempted due to medical condition or safety concerns L. Walking 10 feet on uneven surfaces 88-Not attempted due to medical condition or safety concerns M. 1 step (curb) 88-Not attempted due to medical condition or safety concerns N. 4 steps 88-Not attempted due to medical condition or safety concerns O. 12 steps 88-Not attempted due to medical condition or safety concerns P. Picking up object 88-Not attempted due to medical condition or safety concerns R. Wheel 50 feet with two turns 88-Not attempted due to medical condition or safety concerns S. Wheel 150 feet 88-Not attempted due to medical condition or safety concerns - Bladder and Bowel Bladder continence Bowel continence - Endurance Fair - Balance Poor - Safety Awareness Fair CURRENT [facility]. DEFICITS: Self-Care, Mobility, Endurance, Balance, and Safety Awareness SIGNATURE PANEL: (CDT)
[2021-10-22] MEDS: ZOLPIDEM TARTRATE 5 MG TABLET PO PRN (21:04)
[2021-10-22] MEDS: DOCUSATE NA/SENNA CONC 1 TAB PO PRN (21:04)
[2021-10-23] MEDS: LEVOTHYROXINE SOD 0.075 MG TAB PO SCH (05:50)
[2021-10-23] MEDS: INSULIN -REGULAR HUMAN 50 UNIT/0.5 ML ML SQ SCH ×4 (07:30→19:42)
[2021-10-23] MEDS: PANTOPRAZOLE 40MG TABLET PO SCH ×2 (07:39→17:02)
[2021-10-23] MEDS: INSULIN LISPRO 100 UNIT/1 ML SQ SCH ×3 (07:40→17:00)
[2021-10-23] MEDS: icosapent ethyL 1 GM CAP PO SCH ×2 (07:40→17:02)
[2021-10-23] MEDS: TAMSULOSIN 0.4 MG SR CAP PO SCH (07:40)
[2021-10-23] MEDS: CLOPIDOGREL 75 MG TABLET PO SCH (07:40)
[2021-10-23] MEDS: GABAPENTIN 300 MG CAP PO SCH ×2 (07:40→19:32)
[2021-10-23] MEDS: DONEPEZIL HCL 5 MG TAB PO SCH ×2 (07:41→19:31)
[2021-10-23] MEDS: CETIRIZINE HCL 5 MG TABLET PO SCH (07:41)
[2021-10-23] MEDS: APIXABAN 2.5 MG TABLET PO SCH ×2 (07:41→19:32)
[2021-10-23] MEDS: carvediloL 6.25 MG TAB PO SCH ×2 (07:41→19:41)
[2021-10-23] MEDS: FERROUS SULFATE 325 MG TAB PO SCH (07:41)
[2021-10-23] MEDS: DIVALPROEX DR 250 MG TAB PO SCH (07:42)
[2021-10-23] MEDS: FE SULF/FA/VIT B COMP & C TAB PO SCH (07:42)
[2021-10-23] MEDS: JUVEN PACKET PO SCH ×2 (07:42→19:32)
[2021-10-23] MEDS: TORSEMIDE 20 MG TAB PO SCH ×2 (07:42→19:41)
[2021-10-23] MEDS: COLESEVELAM 625 MG PO SCH ×2 (08:00→19:32)
[2021-10-23] MEDS: INSULIN DEGLUDEC SQ SCH (08:00)
[2021-10-23] MEDS: MEDIHONEY 44 ML TOPICAL TUBE TOP SCH (12:33)
--- NOTE | 2021-10-23 17:31 | R.PN ---
PROGRESS NOTES ENCOUNTER DATE AND TIME: 10/23/2021 17:28 (CDT) NAME MARCELA ALCARAZ DATE OF : 1935 DATE OF ADMISSION: 10/15/2021 11:50 (CDT) CHIEF COMPLAINT: Debility, GI bleed SUBJECTIVE: Pt denied any depression. Pt denied any Shortness of Breath. Glucose 93 to 149. WBC 6.4, Hgb is low at 8.5, Hgb was 8.1 on 10/16/21. Hemocyte plus and ferrous sulfate daily. Since he had a GI bleed just prior to rehab admission, will recheck Hgb in two days. Ambulated 212' with two wheeled walker and contact guard assistance. VITAL SIGNS SBP/DBP: 127/60 Temperature: 97.2 F Pulse: 70 Resp: 16 MEDICATION ALLERGIES: No Known Drug Allergies (NKDA) ENVIRONMENTAL ALLERGIES: - Substance Allergies None Known - Other Allergies None Known NURSING: - Shower allowing shower PRECAUTIONS: - Fall Precaution SAFTY AND FALL ACTIVITIES OOB only with supervision THERAPIES: - Dietary and Nutrition Adequate Nutrition. Nutritional Education. Nutritional Supplements. Evaluate and Treat. - Occupational Therapy Cognitive Retraining. Patient needs Occupational Therapy for a daily minimum of 1.5 hours at least 5 out of 7 days, to improve Activities of Daily Living, including: Eating, Grooming, Bathing, Dressing, Toileting, Toilet Transfers, Community Reintegration, Higher functional activities, Adaptive Equipme nt, Splinting, Household Tasks, and Other activities as determined. Visual Perceptual Training. Evalu ate and Treat. Safety Awareness. Transfer Training. ADL Training. Patient/Family Education. UE Streng thening. Household Tasks. - Speech Therapy Cognitive Training. Expressive Language Skills. Memory Strategies. Patient needs Speech Therapy for a daily minimum of 1.5 hours at least 5 out of 7 days, to improve: Swallowing, Cognition, Language Ski lls, and Compensatory Strategies. Receptive Language Skills. Speech Intelligibility Training. Evaluat e and Treat. - Physical Therapy Patient needs Physical Therapy for a daily minimum of 1.5 hours at least 5 out of 7 days, to improve: Mobility, Strengthening, Transfers, Stretching, ROM, Endurance, Ability to manage stairs, Gait, and Balance. Mobility Training. Safety Awareness. Gait Training. Balance Training. Transfer Training. Tori luate and Treat. LE Strengthening. Modalities Training. 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 - MSK 4/5 weakness in both lower extremities. - Neuro No focal deficits - Psych No abnormalities ASSESSMENT: Pt. is a 86 yo Right-handed white male.On 10/12/2021 he was admitted to [facility] with di agnosis Debility. GI bleed.On 10/12/2021 he was admitted to [facility] with diagnosis Yecenia genay.His impairment category is debility 3.9 other neurologic disorders.His impairment category is De bility.Pre-morbidly, Pt. was independent/mod-I in Locomotion, Safety Awareness, Social Cognition, Tra nsfers Control, and Balance; and he had good Transfers Control, Sphincter Control, Self-Care, Enduran ce, and Communication.Currently, he has deficits of Locomotion, Safety Awareness, Social Cognition, B alance, Transfers Control, Sphincter Control, Self-Care, Communication, and Endurance.Pt. is now refe rred to [facility] for acute in-patient rehabilitation in order to maximize tia abrams's functional independence in activities of daily living, strength, ROM, and mobility.- Rehab Go al Patient has realistic goal of being discharged at assistance level 7-Ind to reside at Home with Fami ly/Relatives. MDM/PLAN: - Physical Therapy Weakness - to improve, our physical therapists will perform initial evaluation of pt's status upon a dmission and devise an individualized program for Aquatic Therapy, Neuromuscular Reeducation, and Str engthening Poor balance - to improve, our physical therapists will perform initial evaluation of pt's status up on admission and devise an individualized program for Balance Training Inability to transfer - to improve, our physical therapists will perform initial evaluation of pt's status upon admission and devise an individualized program for Bed mobility Need in caregiver upon discharge - to improve, our physical therapists will perform initial evaluati on of pt's status upon admission and devise an individualized program for Caregiver Training Poor endurance - to improve, our physical therapists will perform initial evaluation of pt's status upon admission and devise an individualized program for Endurance Training Gait dysfunction - to improve, our physical therapists will perform initial evaluation of pt's statu s upon admission and devise an individualized program for Gait Training, and Wheel Chair mobility Need for home safety evaluation - to improve, our physical therapists will perform initial evaluatio n of pt's status upon admission and devise an individualized program for Home Evaluation New precaution - to improve, our physical therapists will perform initial evaluation of pt's status upon admission and devise an individualized program for Patient precaution education Edema - to improve, our physical therapists will perform initial evaluation of pt's status upon admi ssion and devise an individualized program for Elevation Training, and Lymphedema Therapy - Occupational Therapy Weakness - to improve, our occupation therapists will perform initial evaluation of pt's status upon admission and devise an individualized program for Aquatic Therapy, Balance, Endurance, UE ROM, and UE strengthening ADL deficits - to improve, our occupation therapists will perform initial evaluation of pt's status upon admission and devise an individualized program for Bathing, Bed mobility, Community Reintegratio n, Cooking, Dressing, Eating, Fine Motor Skills, Grooming, Homemaking, Kitchen Mobility, Laundry, Pat ient Education, Safety Awareness, Splinting - Positioning, Transfers(Toilet, Tub, Shower), and Wheel Chair Management Need for human services care specialist - to improve, our occupation therapists will perform initial evaluation of pt's status upon admission and devise an individualized program for Caregiver Training Cognitive deficits - to improve, our occupation therapists will perform initial evaluation of pt's s tatus upon admission and devise an individualized program for Cognition - orientation - Other See attached MAR (Medication Administration Record) - Diet Type Continue Regular - Diet - Liquid Texture Continue Regular - Tube Feed Continue N/A - Fall Precaution SAFTY AND FALL - Diet - Solid Texture Continue Regular - Shower allowing shower - Balance for Weakness - Bed mobility for ADL deficits - Lymphedema Therapy for Edema FUNCTIONAL STATUS: UPDATED AT WEEKLY TEAM CONFERENCE - Bladder Same accident frequency: 7-Ind - No accidents in the past 7 days - Bowel Same accident frequency: 7-Ind - No accidents in the past 7 days - Walking Same score based on distance walked: 0(N/A) - Wheelchair Same score based on distance traveled: 0(N/A) FUNCTIONAL STATUS: - Self-Care A. Eating Ind B. Grooming sup C. Bathing sup D. Dressing - Upper Navid E. Dressing - Lower modA F. Toileting Navid - Sphincter Control G. Bladder control sup H. Bowel control sup - Transfers Control I. Bed/Chair/Wheelchair Navid J. Toilet Navid K. Tub/Shower Navid - Locomotion L. Walk/Wheelchair (B) Navid M. Stairs maxA - Communication N. Comprehension (B) Rajat O. Expression (B) Rajat - Social Cognition P. Social Interaction Rajat Q. Problem Solving Rajat R. Memory Rajat - Endurance Fair - Balance Fair - Safety Awareness Good QI SCORES: - Self-Care A. Eating 03-Partial/moderate assistance B. Oral hygiene 03-Partial/moderate assistance C. Toileting hygiene 02-Substantial/maximal assistance E. Shower/bathe self 02-Substantial/maximal assistance F. Upper body dressing 03-Partial/moderate assistance G. Lower body dressing 02-Substantial/maximal assistance H. Putting on/taking off footwear 88-Not attempted due to medical condition or safety concerns - Mobility A. Roll left and right 03-Partial/moderate assistance B. Sit to lying 03-Partial/moderate assistance C. Lying to sitting on side of bed 03-Partial/moderate assistance D. Sit to stand 03-Partial/moderate assistance E. Chair/[id number]-vn-ofjaq transfer 03-Partial/moderate assistance F. Toilet transfer 02-Substantial/maximal assistance G. Car transfer 88-Not attempted due to medical condition or safety concerns I. Walk 10 feet 03-Partial/moderate assistance J. Walk 50 feet with two turns 88-Not attempted due to medical condition or safety concerns K. Walk 150 feet 88-Not attempted due to medical condition or safety concerns L. Walking 10 feet on uneven surfaces 88-Not attempted due to medical condition or safety concerns M. 1 step (curb) 88-Not attempted due to medical condition or safety concerns N. 4 steps 88-Not attempted due to medical condition or safety concerns O. 12 steps 88-Not attempted due to medical condition or safety concerns P. Picking up object 88-Not attempted due to medical condition or safety concerns R. Wheel 50 feet with two turns 88-Not attempted due to medical condition or safety concerns S. Wheel 150 feet 88-Not attempted due to medical condition or safety concerns - Bladder and Bowel Bladder continence Bowel continence - Endurance Fair - Balance Poor - Safety Awareness Fair CURRENT [facility]. DEFICITS: Self-Care, Mobility, Endurance, Balance, and Safety Awareness SIGNATURE PANEL: (CDT)
[2021-10-23] MEDS: DOCUSATE NA/SENNA CONC 1 TAB PO PRN (19:33)
[2021-10-23] MEDS: ZOLPIDEM TARTRATE 5 MG TABLET PO PRN (20:31)
[2021-10-24] MEDS: LEVOTHYROXINE SOD 0.075 MG TAB PO SCH (06:33)
[2021-10-24] MEDS: INSULIN -REGULAR HUMAN 50 UNIT/0.5 ML ML SQ SCH ×4 (06:42→19:48)
[2021-10-24] MEDS: carvediloL 6.25 MG TAB PO SCH ×3 (08:00→19:48)
[2021-10-24] MEDS: INSULIN DEGLUDEC SQ SCH (08:00)
[2021-10-24] MEDS: COLESEVELAM 625 MG PO SCH ×2 (08:00→19:48)
[2021-10-24] MEDS: GABAPENTIN 300 MG CAP PO SCH ×2 (08:50→19:47)
[2021-10-24] MEDS: TAMSULOSIN 0.4 MG SR CAP PO SCH (08:51)
[2021-10-24] MEDS: CLOPIDOGREL 75 MG TABLET PO SCH (08:51)
[2021-10-24] MEDS: PANTOPRAZOLE 40MG TABLET PO SCH ×2 (08:51→17:02)
[2021-10-24] MEDS: FE SULF/FA/VIT B COMP & C TAB PO SCH (08:51)
[2021-10-24] MEDS: APIXABAN 2.5 MG TABLET PO SCH ×2 (08:52→19:48)
[2021-10-24] MEDS: CETIRIZINE HCL 5 MG TABLET PO SCH (08:52)
[2021-10-24] MEDS: DIVALPROEX DR 250 MG TAB PO SCH (08:53)
[2021-10-24] MEDS: TORSEMIDE 20 MG TAB PO SCH ×2 (08:53→19:47)
[2021-10-24] MEDS: DONEPEZIL HCL 5 MG TAB PO SCH ×2 (08:53→19:48)
[2021-10-24] MEDS: FERROUS SULFATE 325 MG TAB PO SCH (08:54)
[2021-10-24] MEDS: INSULIN LISPRO 100 UNIT/1 ML SQ SCH ×3 (09:00→16:24)
[2021-10-24] MEDS: MEDIHONEY 44 ML TOPICAL TUBE TOP SCH (09:59)
[2021-10-24] MEDS: JUVEN PACKET PO SCH ×2 (09:59→19:48)
[2021-10-24] MEDS: icosapent ethyL 1 GM CAP PO SCH ×2 (12:24→17:00)
--- NOTE | 2021-10-24 17:19 | R.PN ---
PROGRESS NOTES ENCOUNTER DATE AND TIME: 10/24/2021 17:14 (CDT) NAME MARCELA ALCARAZ DATE OF : 1935 DATE OF ADMISSION: 10/15/2021 11:50 (CDT) CHIEF COMPLAINT: Debility, GI bleed SUBJECTIVE: Pt denied any depression. Pt denied any Shortness of Breath. Glucose 105 to 186. WBC 6.4, Hgb is low at 8.5, Hgb was 8.1 on 10/16/21. Hemocyte plus and ferrous sulfate daily. Ambulated 435' with two wheeled walker and contact guard assistance. O2 sat 96 % on room air. VITAL SIGNS SBP/DBP: 124/56 Temperature: 97.5 F Pulse: 71 Resp: 16 MEDICATION ALLERGIES: No Known Drug Allergies (NKDA) ENVIRONMENTAL ALLERGIES: - Substance Allergies None Known - Other Allergies None Known NURSING: - Shower allowing shower PRECAUTIONS: - Fall Precaution SAFTY AND FALL ACTIVITIES OOB only with supervision THERAPIES: - Dietary and Nutrition Adequate Nutrition. Nutritional Education. Nutritional Supplements. Evaluate and Treat. - Occupational Therapy Cognitive Retraining. Patient needs Occupational Therapy for a daily minimum of 1.5 hours at least 5 out of 7 days, to improve Activities of Daily Living, including: Eating, Grooming, Bathing, Dressing, Toileting, Toilet Transfers, Community Reintegration, Higher functional activities, Adaptive Equipme nt, Splinting, Household Tasks, and Other activities as determined. Visual Perceptual Training. Evalu ate and Treat. Safety Awareness. Transfer Training. ADL Training. Patient/Family Education. UE Streng thening. Household Tasks. - Speech Therapy Cognitive Training. Expressive Language Skills. Memory Strategies. Patient needs Speech Therapy for a daily minimum of 1.5 hours at least 5 out of 7 days, to improve: Swallowing, Cognition, Language Ski lls, and Compensatory Strategies. Receptive Language Skills. Speech Intelligibility Training. Evaluat e and Treat. - Physical Therapy Patient needs Physical Therapy for a daily minimum of 1.5 hours at least 5 out of 7 days, to improve: Mobility, Strengthening, Transfers, Stretching, ROM, Endurance, Ability to manage stairs, Gait, and Balance. Mobility Training. Safety Awareness. Gait Training. Balance Training. Transfer Training. Tori luate and Treat. LE Strengthening. Modalities Training. 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 - MSK 4/5 weakness in both lower extremities. - Neuro No focal deficits - Psych No abnormalities ASSESSMENT: Pt. is a 86 yo Right-handed white male.On 10/12/2021 he was admitted to [facility] with di agnosis Debility. GI bleed.On 10/12/2021 he was admitted to [facility] with diagnosis Yecenia sanjiv.His impairment category is debility 3.9 other neurologic disorders.His impairment category is De bility.Pre-morbidly, Pt. was independent/mod-I in Locomotion, Safety Awareness, Social Cognition, Tra nsfers Control, and Balance; and he had good Transfers Control, Sphincter Control, Self-Care, Enduran ce, and Communication.Currently, he has deficits of Locomotion, Safety Awareness, Social Cognition, B alance, Transfers Control, Sphincter Control, Self-Care, Communication, and Endurance.Pt. is now refe rred to [facility] for acute in-patient rehabilitation in order to maximize tia abrams's functional independence in activities of daily living, strength, ROM, and mobility.- Rehab Go al Patient has realistic goal of being discharged at assistance level 7-Ind to reside at Home with Fami ly/Relatives. MDM/PLAN: - Physical Therapy Weakness - to improve, our physical therapists will perform initial evaluation of pt's status upon a dmission and devise an individualized program for Aquatic Therapy, Neuromuscular Reeducation, and Str engthening Poor balance - to improve, our physical therapists will perform initial evaluation of pt's status up on admission and devise an individualized program for Balance Training Inability to transfer - to improve, our physical therapists will perform initial evaluation of pt's status upon admission and devise an individualized program for Bed mobility Need in caregiver upon discharge - to improve, our physical therapists will perform initial evaluati on of pt's status upon admission and devise an individualized program for Caregiver Training Poor endurance - to improve, our physical therapists will perform initial evaluation of pt's status upon admission and devise an individualized program for Endurance Training Gait dysfunction - to improve, our physical therapists will perform initial evaluation of pt's statu s upon admission and devise an individualized program for Gait Training, and Wheel Chair mobility Need for home safety evaluation - to improve, our physical therapists will perform initial evaluatio n of pt's status upon admission and devise an individualized program for Home Evaluation New precaution - to improve, our physical therapists will perform initial evaluation of pt's status upon admission and devise an individualized program for Patient precaution education Edema - to improve, our physical therapists will perform initial evaluation of pt's status upon admi ssion and devise an individualized program for Elevation Training, and Lymphedema Therapy - Occupational Therapy Weakness - to improve, our occupation therapists will perform initial evaluation of pt's status upon admission and devise an individualized program for Aquatic Therapy, Balance, Endurance, UE ROM, and UE strengthening ADL deficits - to improve, our occupation therapists will perform initial evaluation of pt's status upon admission and devise an individualized program for Bathing, Bed mobility, Community Reintegratio n, Cooking, Dressing, Eating, Fine Motor Skills, Grooming, Homemaking, Kitchen Mobility, Laundry, Pat ient Education, Safety Awareness, Splinting - Positioning, Transfers(Toilet, Tub, Shower), and Wheel Chair Management Need for critical care physician - to improve, our occupation therapists will perform initial evaluation of pt's status upon admission and devise an individualized program for Caregiver Training Cognitive deficits - to improve, our occupation therapists will perform initial evaluation of pt's s tatus upon admission and devise an individualized program for Cognition - orientation - Other See attached MAR (Medication Administration Record) - Diet Type Continue Regular - Diet - Liquid Texture Continue Regular - Tube Feed Continue N/A - Fall Precaution SAFTY AND FALL - Diet - Solid Texture Continue Regular - Shower allowing shower - Balance for Weakness - Bed mobility for ADL deficits - Lymphedema Therapy for Edema FUNCTIONAL STATUS: UPDATED AT WEEKLY TEAM CONFERENCE - Bladder Same accident frequency: 7-Ind - No accidents in the past 7 days - Bowel Same accident frequency: 7-Ind - No accidents in the past 7 days - Walking Same score based on distance walked: 0(N/A) - Wheelchair Same score based on distance traveled: 0(N/A) FUNCTIONAL STATUS: - Self-Care A. Eating Ind B. Grooming sup C. Bathing sup D. Dressing - Upper Navid E. Dressing - Lower modA F. Toileting Navid - Sphincter Control G. Bladder control sup H. Bowel control sup - Transfers Control I. Bed/Chair/Wheelchair Navid J. Toilet Navid K. Tub/Shower Navid - Locomotion L. Walk/Wheelchair (B) Navid M. Stairs maxA - Communication N. Comprehension (B) Rajat O. Expression (B) Rajat - Social Cognition P. Social Interaction Rajat Q. Problem Solving Rajat R. Memory Rajat - Endurance Fair - Balance Fair - Safety Awareness Good QI SCORES: - Self-Care A. Eating 03-Partial/moderate assistance B. Oral hygiene 03-Partial/moderate assistance C. Toileting hygiene 02-Substantial/maximal assistance E. Shower/bathe self 02-Substantial/maximal assistance F. Upper body dressing 03-Partial/moderate assistance G. Lower body dressing 02-Substantial/maximal assistance H. Putting on/taking off footwear 88-Not attempted due to medical condition or safety concerns - Mobility A. Roll left and right 03-Partial/moderate assistance B. Sit to lying 03-Partial/moderate assistance C. Lying to sitting on side of bed 03-Partial/moderate assistance D. Sit to stand 03-Partial/moderate assistance E. Chair/[id number] transfer 03-Partial/moderate assistance F. Toilet transfer 02-Substantial/maximal assistance G. Car transfer 88-Not attempted due to medical condition or safety concerns I. Walk 10 feet 03-Partial/moderate assistance J. Walk 50 feet with two turns 88-Not attempted due to medical condition or safety concerns K. Walk 150 feet 88-Not attempted due to medical condition or safety concerns L. Walking 10 feet on uneven surfaces 88-Not attempted due to medical condition or safety concerns M. 1 step (curb) 88-Not attempted due to medical condition or safety concerns N. 4 steps 88-Not attempted due to medical condition or safety concerns O. 12 steps 88-Not attempted due to medical condition or safety concerns P. Picking up object 88-Not attempted due to medical condition or safety concerns R. Wheel 50 feet with two turns 88-Not attempted due to medical condition or safety concerns S. Wheel 150 feet 88-Not attempted due to medical condition or safety concerns - Bladder and Bowel Bladder continence Bowel continence - Endurance Fair - Balance Poor - Safety Awareness Fair CURRENT [facility]. DEFICITS: Self-Care, Mobility, Endurance, Balance, and Safety Awareness SIGNATURE PANEL: (CDT)
[2021-10-24] MEDS: ZOLPIDEM TARTRATE 5 MG TABLET PO PRN (19:49)
[2021-10-25 04:41] LABS: Absolute Lymphocytes (CBC) 2.4 K/uL (0.7-4.9); Hematocrit 26.8 % (39.6-49.0); Lymphocytes % 38.7 % (15.3-44.8); MPV 7.6 fL (7.6-11.3)
[2021-10-25 04:58] LABS: Albumin 2.4 g/dL (3.4-5.0); Magnesium 2.2 mg/dL (1.8-2.4); Potassium 3.4 mmol/L (3.5-5.1); Prealbumin 15.5 mg/dL (20-40)
[2021-10-25] MEDS: LEVOTHYROXINE SOD 0.075 MG TAB PO SCH (05:27)
[2021-10-25] MEDS: INSULIN -REGULAR HUMAN 50 UNIT/0.5 ML ML SQ SCH ×4 (07:30→19:31)
[2021-10-25] MEDS: COLESEVELAM 625 MG PO SCH ×2 (08:00→19:33)
[2021-10-25] MEDS: INSULIN DEGLUDEC SQ SCH (08:00)
[2021-10-25] MEDS: GABAPENTIN 300 MG CAP PO SCH ×2 (08:25→19:32)
[2021-10-25] MEDS: FERROUS SULFATE 325 MG TAB PO SCH (08:26)
[2021-10-25] MEDS: PANTOPRAZOLE 40MG TABLET PO SCH ×2 (08:26→17:14)
[2021-10-25] MEDS: CLOPIDOGREL 75 MG TABLET PO SCH (08:26)
[2021-10-25] MEDS: FE SULF/FA/VIT B COMP & C TAB PO SCH (08:26)
[2021-10-25] MEDS: TORSEMIDE 20 MG TAB PO SCH ×2 (08:27→19:32)
[2021-10-25] MEDS: DONEPEZIL HCL 5 MG TAB PO SCH ×2 (08:27→19:33)
[2021-10-25] MEDS: DIVALPROEX DR 250 MG TAB PO SCH (08:27)
[2021-10-25] MEDS: CETIRIZINE HCL 5 MG TABLET PO SCH (08:28)
[2021-10-25] MEDS: INSULIN LISPRO 100 UNIT/1 ML SQ SCH ×3 (08:28→17:00)
[2021-10-25] MEDS: APIXABAN 2.5 MG TABLET PO SCH ×2 (08:28→19:32)
[2021-10-25] MEDS: TAMSULOSIN 0.4 MG SR CAP PO SCH (08:28)
[2021-10-25] MEDS: JUVEN PACKET PO SCH ×2 (08:29→19:32)
[2021-10-25] MEDS: MEDIHONEY 44 ML TOPICAL TUBE TOP SCH (08:29)
[2021-10-25] MEDS: icosapent ethyL 1 GM CAP PO SCH ×2 (09:34→17:15)
[2021-10-25] MEDS ORDERED: POTASSIUM CL SA 10 MEQ TAB PO ONE (13:59)
--- NOTE | 2021-10-25 16:15 | RAD REPORT ---
EXAM DESCRIPTION: RAD - Chest Single View - 10/25/2021 3:56 pm CLINICAL HISTORY: compare with previous test COMPARISON: Chest Single View dated 10/18/2021; Abdomen 1 View (KUB) dated 08/14/2021; Chest Single Vie w dated 08/12/2021; Chest Single View dated 08/08/2021; Abdomen Pelvis Wo Contrast dated 09/22/2021 FINDINGS: Lines: None. Lungs: Chronic prominence of the pulmonary interstitium. Comparing today's radiograph with 08/12/2021 , no appreciable change. Pleural: No significant pleural effusions or pneumothorax. Cardiac: Cardiomegaly. Pacemaker. Sternotomy. Bones: No acute fractures. Other: IMPRESSION: Chronic prominence of the pulmonary interstitium. Comparing today's chest radiograph wit h 08/14/2021 where the radiographic technique was more similar, no significant changes appreciated. N o definite acute process identified.
[2021-10-25] MEDS: carvediloL 6.25 MG TAB PO SCH (17:15)
--- NOTE | 2021-10-25 18:54 | R.PN ---
PROGRESS NOTES ENCOUNTER DATE AND TIME: 10/25/2021 18:47 (CDT) NAME MARCELA ALCARAZ DATE OF : 1935 DATE OF ADMISSION: 10/15/2021 11:50 (CDT) CHIEF COMPLAINT: Debility, GI bleed SUBJECTIVE: Pt denied any depression. Pt denied any Shortness of Breath. Glucose 135 to 174. WBC 6.2, Hgb is low at 8.8, Hgb was 8.1 on 10/16/21. Prealbumin 15.5, creatinine 2 .15. Hemocyte plus and ferrous sulfate daily. Ambulated 114' with two wheeled walker and contact guard assistance. O2 sat 94 % on room air. VITAL SIGNS SBP/DBP: 112/67 Temperature:97.6 F Pulse: 69 Resp: 16 MEDICATION ALLERGIES: No Known Drug Allergies (NKDA) ENVIRONMENTAL ALLERGIES: - Substance Allergies None Known - Other Allergies None Known NURSING: - Shower allowing shower PRECAUTIONS: - Fall Precaution SAFTY AND FALL ACTIVITIES OOB only with supervision THERAPIES: - Dietary and Nutrition Adequate Nutrition. Nutritional Education. Nutritional Supplements. Evaluate and Treat. - Occupational Therapy Cognitive Retraining. Patient needs Occupational Therapy for a daily minimum of 1.5 hours at least 5 out of 7 days, to improve Activities of Daily Living, including: Eating, Grooming, Bathing, Dressing, Toileting, Toilet Transfers, Community Reintegration, Higher functional activities, Adaptive Equipme nt, Splinting, Household Tasks, and Other activities as determined. Visual Perceptual Training. Evalu ate and Treat. Safety Awareness. Transfer Training. ADL Training. Patient/Family Education. UE Streng thening. Household Tasks. - Speech Therapy Cognitive Training. Expressive Language Skills. Memory Strategies. Patient needs Speech Therapy for a daily minimum of 1.5 hours at least 5 out of 7 days, to improve: Swallowing, Cognition, Language Ski lls, and Compensatory Strategies. Receptive Language Skills. Speech Intelligibility Training. Evaluat e and Treat. - Physical Therapy Patient needs Physical Therapy for a daily minimum of 1.5 hours at least 5 out of 7 days, to improve: Mobility, Strengthening, Transfers, Stretching, ROM, Endurance, Ability to manage stairs, Gait, and Balance. Mobility Training. Safety Awareness. Gait Training. Balance Training. Transfer Training. Tori luate and Treat. LE Strengthening. Modalities Training. 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 - MSK 4/5 weakness in both lower extremities. - Neuro No focal deficits - Psych No abnormalities ASSESSMENT: Pt. is a 86 yo Right-handed white male.On 10/12/2021 he was admitted to [facility] with di agnosis Debility. GI bleed.On 10/12/2021 he was admitted to [facility] with diagnosis Yecenia genay.His impairment category is debility 3.9 other neurologic disorders.His impairment category is De bility.Pre-morbidly, Pt. was independent/mod-I in Locomotion, Safety Awareness, Social Cognition, Tra nsfers Control, and Balance; and he had good Transfers Control, Sphincter Control, Self-Care, Enduran ce, and Communication.Currently, he has deficits of Locomotion, Safety Awareness, Social Cognition, B alance, Transfers Control, Sphincter Control, Self-Care, Communication, and Endurance.Pt. is now refe rred to [facility] for acute in-patient rehabilitation in order to maximize tia abrams's functional independence in activities of daily living, strength, ROM, and mobility.- Rehab Go al Patient has realistic goal of being discharged at assistance level 7-Ind to reside at Home with Fami ly/Relatives. MDM/PLAN: - Physical Therapy Weakness - to improve, our physical therapists will perform initial evaluation of pt's status upon a dmission and devise an individualized program for Aquatic Therapy, Neuromuscular Reeducation, and Str engthening Poor balance - to improve, our physical therapists will perform initial evaluation of pt's status up on admission and devise an individualized program for Balance Training Inability to transfer - to improve, our physical therapists will perform initial evaluation of pt's status upon admission and devise an individualized program for Bed mobility Need in caregiver upon discharge - to improve, our physical therapists will perform initial evaluati on of pt's status upon admission and devise an individualized program for Caregiver Training Poor endurance - to improve, our physical therapists will perform initial evaluation of pt's status upon admission and devise an individualized program for Endurance Training Gait dysfunction - to improve, our physical therapists will perform initial evaluation of pt's statu s upon admission and devise an individualized program for Gait Training, and Wheel Chair mobility Need for home safety evaluation - to improve, our physical therapists will perform initial evaluatio n of pt's status upon admission and devise an individualized program for Home Evaluation New precaution - to improve, our physical therapists will perform initial evaluation of pt's status upon admission and devise an individualized program for Patient precaution education Edema - to improve, our physical therapists will perform initial evaluation of pt's status upon admi ssion and devise an individualized program for Elevation Training, and Lymphedema Therapy - Occupational Therapy Weakness - to improve, our occupation therapists will perform initial evaluation of pt's status upon admission and devise an individualized program for Aquatic Therapy, Balance, Endurance, UE ROM, and UE strengthening ADL deficits - to improve, our occupation therapists will perform initial evaluation of pt's status upon admission and devise an individualized program for Bathing, Bed mobility, Community Reintegratio n, Cooking, Dressing, Eating, Fine Motor Skills, Grooming, Homemaking, Kitchen Mobility, Laundry, Pat ient Education, Safety Awareness, Splinting - Positioning, Transfers(Toilet, Tub, Shower), and Wheel Chair Management Need for child care sitter - to improve, our occupation therapists will perform initial evaluation of pt's status upon admission and devise an individualized program for Caregiver Training Cognitive deficits - to improve, our occupation therapists will perform initial evaluation of pt's s tatus upon admission and devise an individualized program for Cognition - orientation - Other See attached MAR (Medication Administration Record) - Diet Type Continue Regular - Diet - Liquid Texture Continue Regular - Tube Feed Continue N/A - Fall Precaution SAFTY AND FALL - Diet - Solid Texture Continue Regular - Shower allowing shower - Balance for Weakness - Bed mobility for ADL deficits - Lymphedema Therapy for Edema FUNCTIONAL STATUS: UPDATED AT WEEKLY TEAM CONFERENCE - Bladder Same accident frequency: 7-Ind - No accidents in the past 7 days - Bowel Same accident frequency: 7-Ind - No accidents in the past 7 days - Walking Same score based on distance walked: 0(N/A) - Wheelchair Same score based on distance traveled: 0(N/A) FUNCTIONAL STATUS: - Self-Care A. Eating Ind B. Grooming sup C. Bathing sup D. Dressing - Upper Navid E. Dressing - Lower modA F. Toileting Navid - Sphincter Control G. Bladder control sup H. Bowel control sup - Transfers Control I. Bed/Chair/Wheelchair Navid J. Toilet Navid K. Tub/Shower Navid - Locomotion L. Walk/Wheelchair (B) Navid M. Stairs maxA - Communication N. Comprehension (B) Rajat O. Expression (B) Rajat - Social Cognition P. Social Interaction Rajat Q. Problem Solving Rajat R. Memory Rajat - Endurance Fair - Balance Fair - Safety Awareness Good QI SCORES: - Self-Care A. Eating 03-Partial/moderate assistance B. Oral hygiene 03-Partial/moderate assistance C. Toileting hygiene 02-Substantial/maximal assistance E. Shower/bathe self 02-Substantial/maximal assistance F. Upper body dressing 03-Partial/moderate assistance G. Lower body dressing 02-Substantial/maximal assistance H. Putting on/taking off footwear 88-Not attempted due to medical condition or safety concerns - Mobility A. Roll left and right 03-Partial/moderate assistance B. Sit to lying 03-Partial/moderate assistance C. Lying to sitting on side of bed 03-Partial/moderate assistance D. Sit to stand 03-Partial/moderate assistance E. Chair/qwg-wn-puhue transfer 03-Partial/moderate assistance F. Toilet transfer 02-Substantial/maximal assistance G. Car transfer 88-Not attempted due to medical condition or safety concerns I. Walk 10 feet 03-Partial/moderate assistance J. Walk 50 feet with two turns 88-Not attempted due to medical condition or safety concerns K. Walk 150 feet 88-Not attempted due to medical condition or safety concerns L. Walking 10 feet on uneven surfaces 88-Not attempted due to medical condition or safety concerns M. 1 step (curb) 88-Not attempted due to medical condition or safety concerns N. 4 steps 88-Not attempted due to medical condition or safety concerns O. 12 steps 88-Not attempted due to medical condition or safety concerns P. Picking up object 88-Not attempted due to medical condition or safety concerns R. Wheel 50 feet with two turns 88-Not attempted due to medical condition or safety concerns S. Wheel 150 feet 88-Not attempted due to medical condition or safety concerns - Bladder and Bowel Bladder continence Bowel continence - Endurance Fair - Balance Poor - Safety Awareness Fair CURRENT [facility]. DEFICITS: Self-Care, Mobility, Endurance, Balance, and Safety Awareness SIGNATURE PANEL: (CDT)
[2021-10-25] MEDS: POTASSIUM CL SA 10 MEQ TAB PO SCH (19:31)
[2021-10-25] MEDS: ZOLPIDEM TARTRATE 5 MG TABLET PO PRN (19:31)
[2021-10-26] MEDS: LEVOTHYROXINE SOD 0.075 MG TAB PO SCH (05:13)
[2021-10-26] MEDS: carvediloL 6.25 MG TAB PO SCH ×2 (05:14→17:05)
[2021-10-26] MEDS: INSULIN -REGULAR HUMAN 50 UNIT/0.5 ML ML SQ SCH ×4 (07:30→19:53)
[2021-10-26] MEDS: JUVEN PACKET PO SCH ×2 (08:00→20:11)
[2021-10-26] MEDS: INSULIN DEGLUDEC SQ SCH (08:00)
[2021-10-26] MEDS: COLESEVELAM 625 MG PO SCH ×2 (08:00→19:53)
[2021-10-26] MEDS: CLOPIDOGREL 75 MG TABLET PO SCH (08:06)
[2021-10-26] MEDS: TAMSULOSIN 0.4 MG SR CAP PO SCH (08:06)
[2021-10-26] MEDS: APIXABAN 2.5 MG TABLET PO SCH ×2 (08:07→20:15)
[2021-10-26] MEDS: DIVALPROEX DR 250 MG TAB PO SCH (08:07)
[2021-10-26] MEDS: FERROUS SULFATE 325 MG TAB PO SCH (08:07)
[2021-10-26] MEDS: TORSEMIDE 20 MG TAB PO SCH ×2 (08:07→20:15)
[2021-10-26] MEDS: POTASSIUM CL SA 10 MEQ TAB PO SCH ×2 (08:07→20:14)
[2021-10-26] MEDS: MEDIHONEY 44 ML TOPICAL TUBE TOP SCH (08:07)
[2021-10-26] MEDS: DONEPEZIL HCL 5 MG TAB PO SCH ×2 (08:08→20:14)
[2021-10-26] MEDS: CETIRIZINE HCL 5 MG TABLET PO SCH (08:08)
[2021-10-26] MEDS: FE SULF/FA/VIT B COMP & C TAB PO SCH (08:08)
[2021-10-26] MEDS: icosapent ethyL 1 GM CAP PO SCH ×2 (08:08→17:05)
[2021-10-26] MEDS: GABAPENTIN 300 MG CAP PO SCH ×2 (08:08→20:12)
[2021-10-26] MEDS: INSULIN LISPRO 100 UNIT/1 ML SQ SCH ×3 (08:09→15:52)
[2021-10-26] MEDS: PANTOPRAZOLE 40MG TABLET PO SCH ×2 (08:11→17:05)
--- NOTE | 2021-10-26 09:58 | P.RH.PN ---
Estimated Length of Stay: 13 Expected Discharge Date: 10/29/21 Discharge Disposition Plan: Home Family Support: Yes [facility]dc Goal: Mobility, Transfers, Self Care Vital Signs: Last Vital Signs Temp 96.6 F L 10/26/21 07:00 Pulse 70 10/26/21 08:07 Resp 16 10/26/21 07:00 BP 111/58 L 10/26/21 08:07 Pulse Ox 95 10/26/21 07:00 Laboratory: Laboratory Last Values WBC 6.2 K/uL (4.3-10.9) 10/25/21 04:16 RBC 3.20 M/uL (4.33-5.43) L 10/25/21 04:16 Hgb 8.8 g/dL (13.6-17.9) L 10/25/21 04:16 Hct 26.8 % (39.6-49.0) L 10/25/21 04:16 MCV 83.7 fL (80-100) 10/25/21 04:16 MCH 27.4 pg (27.0-35.0) 10/25/21 04:16 MCHC 32.7 g/dL (32.0-36.0) 10/25/21 04:16 RDW 19.8 % (12.1-15.2) H 10/25/21 04:16 Plt Count 173 K/uL (152-406) 10/25/21 04:16 MPV 7.6 fL (7.6-11.3) 10/25/21 04:16 Neutrophils % 49.6 % (41.7-73.7) 10/25/21 04:16 Lymphocytes % 38.7 % (15.3-44.8) 10/25/21 04:16 Monocytes % 7.2 % (3.3-12.3) 10/25/21 04:16 Eosinophils % 4.1 % (0-4.4) 10/25/21 04:16 Basophils % 0.4 % (0-1.3) 10/25/21 04:16 Absolute Neutrophils 3.1 K/uL (1.8-8.0) 10/25/21 04:16 Absolute Lymphocytes 2.4 K/uL (0.7-4.9) 10/25/21 04:16 Absolute Monocytes 0.5 K/uL (0.1-1.3) 10/25/21 04:16 Absolute Eosinophils 0.3 K/uL (0-0.5) 10/25/21 04:16 Absolute Basophils 0.0 K/uL (0-0.5) 10/25/21 04:16 Sodium 141 mmol/L (136-145) 10/25/21 04:16 Potassium 3.4 mmol/L (3.5-5.1) L 10/25/21 04:16 Chloride 104 mmol/L (98-107) 10/25/21 04:16 Carbon Dioxide 30 mmol/L (21-32) 10/25/21 04:16 Anion Gap 10.4 mEq/L (5.0-15.0) 10/25/21 04:16 BUN 65 mg/dL (7-18) H 10/25/21 04:16 Creatinine 2.15 mg/dL (0.55-1.3) H 10/25/21 04:16 Estimated GFR 29 mL/min (=/>90) L 10/25/21 04:16 Glucose 159 mg/dL (74-106) H 10/25/21 04:16 POC Glucose 179 mg/dL (65-120) H 10/26/21 07:06 Calcium 7.6 mg/dL (8.5-10.1) L 10/25/21 04:16 Magnesium 2.2 mg/dL (1.8-2.4) 10/25/21 04:16 Albumin 2.4 g/dL (3.4-5.0) L 10/25/21 04:16 Prealbumin 15.5 mg/dL (20-40) L 10/25/21 04:16 Urine Color Yellow (Yellow) 10/15/21 14:35 Urine Appearance Cloudy (Clear) 10/15/21 14:35 Urine pH 5.5 (5.0-7.0) 10/15/21 14:35 Ur Specific Ridott 1.010 (1.005-1.030) 10/15/21 14:35 Glucose (UA)(Auto) Negative (Negative) 10/15/21 14:35 Urine Ketones Negative (Negative) 10/15/21 14:35 Urine Blood 1+ (Negative) H 10/15/21 14:35 Urine Nitrite Negative (Negative) 10/15/21 14:35 Urine Bilirubin Negative (Negative) 10/15/21 14:35 Urine Urobilinogen 0.2 mg/dL (0.2-1.0) 10/15/21 14:35 Ur Leukocyte Esterase 3+ (Negative) H 10/15/21 14:35 Urine RBC <5 /HPF (NONE SEEN) 10/15/21 14:35 Urine WBC 20-50 /HPF (<5) H 10/15/21 14:35 Ur Squamous Epith Cells <5 /HPF (NONE SEEN) 10/15/21 14:35 Urine Bacteria >50 /HPF (NONE SEEN) H 10/15/21 14:35 Urine Culture Reflexed Reflexed 10/15/21 14:35 Urine Total Protein Negative (Negative) 10/15/21 14:35 SARS-CoV-2 Rap RNA(RT-PCR) Negative (NEGATIVE) 10/22/21 05:20 Weight: 206 lb Wound Present: Yes Closed Surgical Incision Present: No Physician Update: Labs were reviewed and are stable. Min assistance with bed mobility. Walking 150' with SBA, wheelchair SBA. Chest x-ray no pneumonia. He refused to do some things with occupational therapy. Bathing min assistance, supervison transfers. He refuses to do toilet cleaning. He is working minimally with speech therapy. Comment: multiple bruising noted on ext and abd Functional Improvement: Pt. continues to work toward reaching goals. Pt. still requires verbal and tactile cues in proper form and technique w/ transfers and gait. Summary: Patient's care plan and mcc goals have been reviewed and revised as necessary. Please see the Rehabilitation Signature page for all necessary signatures.
[2021-10-26] MEDS ORDERED: D10W 125 ML IV PRN (16:42)
[2021-10-26] MEDS: ZOLPIDEM TARTRATE 5 MG TABLET PO PRN (20:10)
[2021-10-26] MEDS: GLUCERNA SHAKE 237 ML CAN PO SCH (20:11)
[2021-10-26] MEDS: DOCUSATE NA/SENNA CONC 1 TAB PO SCH (20:16)
[2021-10-27] MEDS: carvediloL 6.25 MG TAB PO SCH ×2 (05:23→17:05)
[2021-10-27] MEDS: LEVOTHYROXINE SOD 0.075 MG TAB PO SCH (05:23)
[2021-10-27 06:38] LABS: Potassium 3.7 mmol/L (3.5-5.1)
[2021-10-27] MEDS: INSULIN -REGULAR HUMAN 50 UNIT/0.5 ML ML SQ SCH ×4 (07:30→19:54)
[2021-10-27] MEDS: PANTOPRAZOLE 40MG TABLET PO SCH ×2 (07:34→16:41)
[2021-10-27] MEDS: INSULIN LISPRO 100 UNIT/1 ML SQ SCH ×3 (07:57→16:41)
[2021-10-27] MEDS: GABAPENTIN 300 MG CAP PO SCH ×2 (07:58→19:53)
[2021-10-27] MEDS: DONEPEZIL HCL 5 MG TAB PO SCH ×2 (07:58→19:53)
[2021-10-27] MEDS: TORSEMIDE 20 MG TAB PO SCH ×2 (07:58→19:53)
[2021-10-27] MEDS: icosapent ethyL 1 GM CAP PO SCH ×2 (07:58→16:41)
[2021-10-27] MEDS: FE SULF/FA/VIT B COMP & C TAB PO SCH (07:59)
[2021-10-27] MEDS: TAMSULOSIN 0.4 MG SR CAP PO SCH (07:59)
[2021-10-27] MEDS: FERROUS SULFATE 325 MG TAB PO SCH (07:59)
[2021-10-27] MEDS: CETIRIZINE HCL 5 MG TABLET PO SCH (07:59)
[2021-10-27] MEDS: APIXABAN 2.5 MG TABLET PO SCH ×2 (07:59→19:53)
[2021-10-27] MEDS: CLOPIDOGREL 75 MG TABLET PO SCH (07:59)
[2021-10-27] MEDS: DIVALPROEX DR 250 MG TAB PO SCH (07:59)
[2021-10-27] MEDS: POTASSIUM CL SA 10 MEQ TAB PO SCH ×2 (08:00→19:52)
[2021-10-27] MEDS: INSULIN DEGLUDEC SQ SCH (08:00)
[2021-10-27] MEDS: GLUCERNA SHAKE 237 ML CAN PO SCH ×2 (08:00→19:53)
[2021-10-27] MEDS: JUVEN PACKET PO SCH ×2 (08:00→19:53)
[2021-10-27] MEDS: COLESEVELAM 625 MG PO SCH ×2 (08:00→19:53)
[2021-10-27] MEDS: MEDIHONEY 44 ML TOPICAL TUBE TOP SCH (11:29)
[2021-10-27] MEDS: DOCUSATE NA/SENNA CONC 1 TAB PO SCH (19:54)
[2021-10-28] MEDS: carvediloL 6.25 MG TAB PO SCH ×2 (05:28→17:13)
[2021-10-28] MEDS: LEVOTHYROXINE SOD 0.075 MG TAB PO SCH (05:28)
[2021-10-28] MEDS: INSULIN -REGULAR HUMAN 50 UNIT/0.5 ML ML SQ SCH ×4 (07:30→19:51)
[2021-10-28] MEDS: PANTOPRAZOLE 40MG TABLET PO SCH ×2 (07:51→16:39)
[2021-10-28] MEDS: COLESEVELAM 625 MG PO SCH ×2 (08:00→19:50)
[2021-10-28] MEDS: INSULIN DEGLUDEC SQ SCH (08:00)
[2021-10-28] MEDS: INSULIN LISPRO 100 UNIT/1 ML SQ SCH ×3 (08:12→16:39)
[2021-10-28] MEDS: icosapent ethyL 1 GM CAP PO SCH ×2 (08:12→16:39)
[2021-10-28] MEDS: FERROUS SULFATE 325 MG TAB PO SCH (08:13)
[2021-10-28] MEDS: TAMSULOSIN 0.4 MG SR CAP PO SCH (08:13)
[2021-10-28] MEDS: FE SULF/FA/VIT B COMP & C TAB PO SCH (08:13)
[2021-10-28] MEDS: CETIRIZINE HCL 5 MG TABLET PO SCH (08:13)
[2021-10-28] MEDS: GABAPENTIN 300 MG CAP PO SCH ×2 (08:13→19:49)
[2021-10-28] MEDS: POTASSIUM CL SA 10 MEQ TAB PO SCH ×2 (08:14→19:50)
[2021-10-28] MEDS: DONEPEZIL HCL 5 MG TAB PO SCH ×2 (08:14→19:49)
[2021-10-28] MEDS: TORSEMIDE 20 MG TAB PO SCH ×2 (08:14→19:50)
[2021-10-28] MEDS: DIVALPROEX DR 250 MG TAB PO SCH (08:14)
[2021-10-28] MEDS: CLOPIDOGREL 75 MG TABLET PO SCH (08:14)
[2021-10-28] MEDS: JUVEN PACKET PO SCH ×2 (08:15→19:50)
[2021-10-28] MEDS: APIXABAN 2.5 MG TABLET PO SCH ×2 (08:15→19:50)
[2021-10-28] MEDS: GLUCERNA SHAKE 237 ML CAN PO SCH ×2 (08:15→19:51)
[2021-10-28] MEDS: MEDIHONEY 44 ML TOPICAL TUBE TOP SCH (12:09)
[2021-10-28] MEDS: ZOLPIDEM TARTRATE 5 MG TABLET PO PRN (19:50)
[2021-10-28] MEDS: DOCUSATE NA/SENNA CONC 1 TAB PO SCH (19:51)
[2021-10-29] MEDS: carvediloL 6.25 MG TAB PO SCH (05:23)
[2021-10-29] MEDS: LEVOTHYROXINE SOD 0.075 MG TAB PO SCH (05:23)
[2021-10-29] MEDS: PANTOPRAZOLE 40MG TABLET PO SCH (07:24)
[2021-10-29] MEDS: CETIRIZINE HCL 5 MG TABLET PO SCH (07:25)
[2021-10-29] MEDS: icosapent ethyL 1 GM CAP PO SCH (07:25)
[2021-10-29] MEDS: FERROUS SULFATE 325 MG TAB PO SCH (07:25)
[2021-10-29] MEDS: GABAPENTIN 300 MG CAP PO SCH (07:26)
[2021-10-29] MEDS: FE SULF/FA/VIT B COMP & C TAB PO SCH (07:26)
[2021-10-29] MEDS: DONEPEZIL HCL 5 MG TAB PO SCH (07:26)
[2021-10-29] MEDS: DIVALPROEX DR 250 MG TAB PO SCH (07:27)
[2021-10-29] MEDS: TAMSULOSIN 0.4 MG SR CAP PO SCH (07:27)
[2021-10-29] MEDS: APIXABAN 2.5 MG TABLET PO SCH (07:27)
[2021-10-29] MEDS: POTASSIUM CL SA 10 MEQ TAB PO SCH (07:28)
[2021-10-29] MEDS: CLOPIDOGREL 75 MG TABLET PO SCH (07:28)
[2021-10-29] MEDS: TORSEMIDE 20 MG TAB PO SCH (07:29)
[2021-10-29] MEDS: INSULIN -REGULAR HUMAN 50 UNIT/0.5 ML ML SQ SCH ×2 (07:30→12:07)
[2021-10-29] MEDS: COLESEVELAM 625 MG PO SCH (07:30)
[2021-10-29] MEDS: INSULIN DEGLUDEC SQ SCH (07:31)
[2021-10-29] MEDS: JUVEN PACKET PO SCH (07:31)
[2021-10-29] MEDS: GLUCERNA SHAKE 237 ML CAN PO SCH (07:31)
[2021-10-29 07:32] VITALS: BP 110/56
[2021-10-29] MEDS: INSULIN LISPRO 100 UNIT/1 ML SQ SCH ×2 (07:39→12:07)
[2021-10-29 08:20] VITALS: TEMP 96.2
[2021-10-29 09:06] VITALS: O2SAT 97
[2021-10-29] MEDS: MEDIHONEY 44 ML TOPICAL TUBE TOP SCH (10:06)
--- NOTE | 2021-10-29 22:08 | R.PN ---
PROGRESS NOTES ENCOUNTER DATE AND TIME: 10/29/2021 22:04 (CDT) NAME MARCELA ALCARAZ DATE OF : 1935 DATE OF ADMISSION: 10/15/2021 11:50 (CDT) CHIEF COMPLAINT: Debility, GI bleed SUBJECTIVE: Pt denied any depression. Pt denied any Shortness of Breath. Glucose 170 to 208. WBC 6.2, Hgb is low at 8.8, Hgb was 8.1 on 10/16/21. Prealbumin 15.5, creatinine 2 .15. Hemocyte plus and ferrous sulfate daily. Ambulated 278' with two wheeled walker and standby assistance. O2 sat 94 % on room air. VITAL SIGNS SBP/DBP: 110/56 Temperature: 97.5 F Pulse: 70 Resp: 15 MEDICATION ALLERGIES: No Known Drug Allergies (NKDA) ENVIRONMENTAL ALLERGIES: - Substance Allergies None Known - Other Allergies None Known NURSING: - Shower allowing shower PRECAUTIONS: - Fall Precaution SAFTY AND FALL ACTIVITIES OOB only with supervision THERAPIES: - Dietary and Nutrition Adequate Nutrition. Nutritional Education. Nutritional Supplements. Evaluate and Treat. - Occupational Therapy Cognitive Retraining. Patient needs Occupational Therapy for a daily minimum of 1.5 hours at least 5 out of 7 days, to improve Activities of Daily Living, including: Eating, Grooming, Bathing, Dressing, Toileting, Toilet Transfers, Community Reintegration, Higher functional activities, Adaptive Equipme nt, Splinting, Household Tasks, and Other activities as determined. Visual Perceptual Training. Evalu ate and Treat. Safety Awareness. Transfer Training. ADL Training. Patient/Family Education. UE Streng thening. Household Tasks. - Speech Therapy Cognitive Training. Expressive Language Skills. Memory Strategies. Patient needs Speech Therapy for a daily minimum of 1.5 hours at least 5 out of 7 days, to improve: Swallowing, Cognition, Language Ski lls, and Compensatory Strategies. Receptive Language Skills. Speech Intelligibility Training. Evaluat e and Treat. - Physical Therapy Patient needs Physical Therapy for a daily minimum of 1.5 hours at least 5 out of 7 days, to improve: Mobility, Strengthening, Transfers, Stretching, ROM, Endurance, Ability to manage stairs, Gait, and Balance. Mobility Training. Safety Awareness. Gait Training. Balance Training. Transfer Training. Tori luate and Treat. LE Strengthening. Modalities Training. 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 - MSK 4/5 weakness in both lower extremities. - Neuro No focal deficits - Psych No abnormalities ASSESSMENT: Pt. is a 86 yo Right-handed white male.On 10/12/2021 he was admitted to [facility] with di agnosis Debility. GI bleed.On 10/12/2021 he was admitted to [facility] with diagnosis Yecenia genay.His impairment category is debility 3.9 other neurologic disorders.His impairment category is De bility.Pre-morbidly, Pt. was independent/mod-I in Locomotion, Safety Awareness, Social Cognition, Tra nsfers Control, and Balance; and he had good Transfers Control, Sphincter Control, Self-Care, Enduran ce, and Communication.Currently, he has deficits of Locomotion, Safety Awareness, Social Cognition, B alance, Transfers Control, Sphincter Control, Self-Care, Communication, and Endurance.Pt. is now refe rred to [facility] for acute in-patient rehabilitation in order to maximize tia abrams's functional independence in activities of daily living, strength, ROM, and mobility.- Rehab Go al Patient has realistic goal of being discharged at assistance level 7-Ind to reside at Home with Fami ly/Relatives. MDM/PLAN: - Physical Therapy Weakness - to improve, our physical therapists will perform initial evaluation of pt's status upon a dmission and devise an individualized program for Aquatic Therapy, Neuromuscular Reeducation, and Str engthening Poor balance - to improve, our physical therapists will perform initial evaluation of pt's status up on admission and devise an individualized program for Balance Training Inability to transfer - to improve, our physical therapists will perform initial evaluation of pt's status upon admission and devise an individualized program for Bed mobility Need in caregiver upon discharge - to improve, our physical therapists will perform initial evaluati on of pt's status upon admission and devise an individualized program for Caregiver Training Poor endurance - to improve, our physical therapists will perform initial evaluation of pt's status upon admission and devise an individualized program for Endurance Training Gait dysfunction - to improve, our physical therapists will perform initial evaluation of pt's statu s upon admission and devise an individualized program for Gait Training, and Wheel Chair mobility Need for home safety evaluation - to improve, our physical therapists will perform initial evaluatio n of pt's status upon admission and devise an individualized program for Home Evaluation New precaution - to improve, our physical therapists will perform initial evaluation of pt's status upon admission and devise an individualized program for Patient precaution education Edema - to improve, our physical therapists will perform initial evaluation of pt's status upon admi ssion and devise an individualized program for Elevation Training, and Lymphedema Therapy - Occupational Therapy Weakness - to improve, our occupation therapists will perform initial evaluation of pt's status upon admission and devise an individualized program for Aquatic Therapy, Balance, Endurance, UE ROM, and UE strengthening ADL deficits - to improve, our occupation therapists will perform initial evaluation of pt's status upon admission and devise an individualized program for Bathing, Bed mobility, Community Reintegratio n, Cooking, Dressing, Eating, Fine Motor Skills, Grooming, Homemaking, Kitchen Mobility, Laundry, Pat ient Education, Safety Awareness, Splinting - Positioning, Transfers(Toilet, Tub, Shower), and Wheel Chair Management Need for healthcare insurance sales agent - to improve, our occupation therapists will perform initial evaluation of pt's status upon admission and devise an individualized program for Caregiver Training Cognitive deficits - to improve, our occupation therapists will perform initial evaluation of pt's s tatus upon admission and devise an individualized program for Cognition - orientation - Other See attached MAR (Medication Administration Record) - Diet Type Continue Regular - Diet - Liquid Texture Continue Regular - Tube Feed Continue N/A - Fall Precaution SAFTY AND FALL - Diet - Solid Texture Continue Regular - Shower allowing shower - Balance for Weakness - Bed mobility for ADL deficits - Lymphedema Therapy for Edema FUNCTIONAL STATUS: UPDATED AT WEEKLY TEAM CONFERENCE - Bladder Same accident frequency: 7-Ind - No accidents in the past 7 days - Bowel Same accident frequency: 7-Ind - No accidents in the past 7 days - Walking Same score based on distance walked: 0(N/A) - Wheelchair Same score based on distance traveled: 0(N/A) FUNCTIONAL STATUS: - Self-Care A. Eating Ind B. Grooming sup C. Bathing sup D. Dressing - Upper Navid E. Dressing - Lower modA F. Toileting Navid - Sphincter Control G. Bladder control sup H. Bowel control sup - Transfers Control I. Bed/Chair/Wheelchair Navid J. Toilet Navid K. Tub/Shower Navid - Locomotion L. Walk/Wheelchair (B) Navid M. Stairs maxA - Communication N. Comprehension (B) Rajat O. Expression (B) Rajat - Social Cognition P. Social Interaction Rajat Q. Problem Solving Rajat R. Memory Rajat - Endurance Fair - Balance Fair - Safety Awareness Good QI SCORES: - Self-Care A. Eating 03-Partial/moderate assistance B. Oral hygiene 03-Partial/moderate assistance C. Toileting hygiene 02-Substantial/maximal assistance E. Shower/bathe self 02-Substantial/maximal assistance F. Upper body dressing 03-Partial/moderate assistance G. Lower body dressing 02-Substantial/maximal assistance H. Putting on/taking off footwear 88-Not attempted due to medical condition or safety concerns - Mobility A. Roll left and right 03-Partial/moderate assistance B. Sit to lying 03-Partial/moderate assistance C. Lying to sitting on side of bed 03-Partial/moderate assistance D. Sit to stand 03-Partial/moderate assistance E. Chair/[id number] transfer 03-Partial/moderate assistance F. Toilet transfer 02-Substantial/maximal assistance G. Car transfer 88-Not attempted due to medical condition or safety concerns I. Walk 10 feet 03-Partial/moderate assistance J. Walk 50 feet with two turns 88-Not attempted due to medical condition or safety concerns K. Walk 150 feet 88-Not attempted due to medical condition or safety concerns L. Walking 10 feet on uneven surfaces 88-Not attempted due to medical condition or safety concerns M. 1 step (curb) 88-Not attempted due to medical condition or safety concerns N. 4 steps 88-Not attempted due to medical condition or safety concerns O. 12 steps 88-Not attempted due to medical condition or safety concerns P. Picking up object 88-Not attempted due to medical condition or safety concerns R. Wheel 50 feet with two turns 88-Not attempted due to medical condition or safety concerns S. Wheel 150 feet 88-Not attempted due to medical condition or safety concerns - Bladder and Bowel Bladder continence Bowel continence - Endurance Fair - Balance Poor - Safety Awareness Fair CURRENT [facility]. DEFICITS: Self-Care, Mobility, Endurance, Balance, and Safety Awareness SIGNATURE PANEL: (CDT)
== END 2021-10-29 13:54 | DRG 948 ==
LOC: 5TH 11:50
PROVIDERS: ADMIT Psychiatry & Neurology Neurology with Special Qualifications in Child Neurology; ATTEND Psychiatry & Neurology Neurology with Special Qualifications in Child Neurology
DX: R53.81 Other malaise (principal); L97.418 Non-pressure chronic ulcer of right heel and midfoot with other specified severity; I13.0 Hypertensive heart and chronic kidney disease with heart failure and stage 1 through stage 4 chronic kidney disease, or unspecified chronic kidney disease; N18.4 Chronic kidney disease, stage 4 (severe); L89.151 Pressure ulcer of sacral region, stage 1; E11.621 Type 2 diabetes mellitus with foot ulcer; E11.22 Type 2 diabetes mellitus with diabetic chronic kidney disease; I50.9 Heart failure, unspecified; G30.9 Alzheimer's disease, unspecified; F02.80 Dementia in other diseases classified elsewhere, unspecified severity, without behavioral disturbance, psychotic disturbance, mood disturbance, and anxiety; I48.91 Unspecified atrial fibrillation; E03.9 Hypothyroidism, unspecified; K21.9 Gastro-esophageal reflux disease without esophagitis; M10.9 Gout, unspecified; G47.30 Sleep apnea, unspecified; Z20.822 Contact with and (suspected) exposure to COVID-19
CPT/HCPCS: 36415; 71045; 80048; 81001; 82040; 82947; 83735; 84134; 85025; 87077; 87086; 87088; 87186; 92523; 94010; 97110; 97116; 97129; 97130; 97161; 97165; 97530; 97542; 99251; J1815; U0003

== ENCOUNTER 2021-11-26 10:19 | Emergency (ER) | payer OTHER, MEDICARE ==
--- OUTSIDE RECORDS SUMMARY | 2021-11-26 10:23 | XMS REPORT | Continuity of Care Document ---
:1935 Author Organization [facility] t Address [address] [place] [address] Care Team Providers Name Role Phone Vianey Luz Primary Care Physician ABBIE Attending Clinician Unavailable LINDA LEIVA Attending Clinician Unavailable FRANKI Attending Clinician Unavailable JOSE ARMANDO Attending Clinician Unavailable Doctor Unassigned, Name Attending Clinician Unavailable Nydia YOU S Attending Clinician Gladys JAQUEZ Attending Clinician Unavailable LUBNA GONZALEZ Attending Clinician Unavailable JHON ALFARO Attending Clinician Unavailable INGRID Attending Clinician Unavailable MD SHI QUINTERO Attending Clinician Unavailable GUSTAVO Attending Clinician Unavailable [...] Date Gladys luciano MEDICARE PART A AND [id number] 2016 B 00:00:00 MEDICARE A B [id number] 2001 00:00:00 [facility]/IVANHOE [id number] 2021 HEALTHCARE 00:00:00 BCBS PPO POS EPO [id number] 2015 CHOICE 00:00:00 Problems Condition Condition Condition Status Onset Resolution Last Treating Co mments Source Name Details Category Date Date Treatment Clinician Date No known No known Disease Unive rs active active ity of problems problems [facility] Allergies, Adverse Reactions, Alerts Allergy Allergy Status Severity Reaction(s) Onset Inactive Treating Comm ents Source Name Type Date Date Clinician NO KNOWN Allergy Active [facility] NO KNOWN Drug Active Univers ALLERGIE Class ity of S [facility] Social History Social Habit Start Date Stop Date Quantity Comments Source Exposure to 2021-09-02 2021-10-02 Not sure [facility]-CoV-2 00:00:00 14:22:00 [facility] (event) Branch Alcohol intake 2021-10-02 2021-10-02 Current University 00:00:00 00:00:00 non-drinker of [facility] alcohol Branch (finding) Tobacco use and 2017-04-08 2017-04-08 Never used Universit y of exposure 00:00:00 00:00:00 [facility] Sex Assigned At [birth year] Universit y of 00:00:00 00:00:00 [facility] Smoking Status Start Date Stop Date Source Never smoker [facility] Medications Ordered Filled Start Stop Current Ordering Indication Dosage Frequency Signature Comments Components Source Medication Medication Date Date Medication? Clinician (SIG) Name Name gabapentin Yes 300mg Q.5D Take 300 UT (Neurontin) 6-28 mg by Health 300 MG 16:47: mouth 2 capsule 50 (two) times a day. ramelteon 2021-0 Yes 8mg Take 8 mg UT (Rozerem) [...] (one) time tablet 50 each day. tamsulosin 202-0 Yes QD Take by UT (Flomax) 6-28 [...] 50 each day capsule before breakfast. gabapentin 1-0 Yes 300mg Q.5D Take 300 UT (Neurontin) 6-28 mg by Health 300 MG 16:47: mouth 2 capsule 50 (two) times a day. ramelteon 2021-0 Yes 8mg Take 8 mg UT (Rozerem) 8 6-28 by mouth Heal th MG tablet 16:47: every 50 night. donepezil 2021-0 Yes 10mg Take 10 mg UT (Aricept) 6-28 by mouth Health 10 MG 16:47: every tablet 50 night. torsemide 1-0 Yes 20mg QD Take 20 mg UT [...] Yes 40mg Take 40 mg UT e 628 by mouth 1 Health (ProtoNix) 16:47: (one) time 40 MG EC 50 each day tablet before breakfast. Do not crush, chew, or split. levothyroxi Yes Take by UT ne 6-28 mouth 1 Health (Tirosint) 16:47: (one) time 200 MCG 50 each day capsule before breakfast. finasteride Yes TAKE 1 UT (Proscar) 5 [...] tablet 00 (two) times a day. clopidogrel 0 Yes 75mg QD Take 75 mg UT [...] 00:00: (one) time 00 each day. clopidogrel 0 Yes 75mg QD Take 75 mg UT (Plavix) 75 5-11 by mouth 1 He alth MG tablet 00:00: (one) time 00 each day. Eliquis 2.5 Yes 2.5mg Q.5D Take 2.5 U T MG tablet 4-13 mg by Health 00:00: mouth 2 00 (two) times a day. Eliquis 2.5 0 Yes 2.5mg Q.5D Take 2.5 U T [...] 2 00 (two) times a day. amiodarone 0 Yes 200mg QD Take 200 UT (Pacerone) [...] 1 tablet 00 (one) time [facility] day. [facility] Yes TAKE ONE UT MG 0-22 (1) Health 00:00: TABLET(S) 00 BY MOUTH ONCE A DAY WITH BREAKFAST. [facility] Yes TAKE ONE UT MG 0-22 (1) Health 00:00: TABLET(S) 00 BY MOUTH ONCE A DAY [facility] Yes TAKE ONE UT MG [...] DAILY ity of mg tablet 10:04: NEEDED [address] Branch Dexlansopra 2016-07 Yes Take by Un josh zole 0-03 mouth. ity of (DEXILANT) 10:04: [place] 60 mg Medical capsule Branch tadalafil 2016-07 Yes 1 TABLET Univ ers (CIALIS) 20 0-03 DAILY ity of mg tablet 10:04: NEEDED [address] Dexlansopra 2016-07 Yes Take by Un josh zole 0-03 mouth. ity of (DEXILANT) 10:04: [place] 60 mg 57 Medical capsule Branch amiodarone 2016-07 Yes 200mg Take 200 Un josh 200 mg 0-03 mg by ity of tablet 10:04: mouth. [address] Branch aspirin 325 2016-07 Yes 325mg Take 325 U nivers mg tablet 0-03 mg by ity of 10:04: mouth. [address] Branch Azelastine 2016-07 Yes Use in Univ ers (ASTEPRO) 0-03 each ity of 0.15 % 10:04: nostril. [place] (205.5 mcg) Medical nasal spray Branch amiodarone 2016-07 Yes 200mg Take 200 Un josh 200 mg 0-03 mg by ity of tablet 10:04: mouth. [address] Branch aspirin 325 2016-07 Yes 325mg Take 325 U nivers mg tablet 0-03 mg by ity of 10:04: mouth. [address] Azelastine 2016-07 Yes Use in Univ ers (ASTEPRO) 0-03 each ity of 0.15 % 10:04: nostril. [place] (205.5 mcg) Medical nasal spray Branch rosuvastati 2016-07 Yes 1 TABLET Un josh n (CRESTOR) 0-03 DAILY ity of 10 mg 09:38: [address] doxazosin 4 2016-07 Yes 2mg Take 2 mg U nivers mg tablet 0-03 by mouth. ity o f 09:38: [address] fosinopril 2016-07 Yes 20mg Take 20 mg U nivers 20 mg 0-03 by mouth. ity of tablet 09:38: [address] rosuvastati 2016-07 Yes 1 TABLET Un josh n (CRESTOR) 0-03 DAILY ity of 10 mg 09:38: [address] doxazosin 4 2016-07 Yes 2mg Take 2 mg U nivers mg tablet 0-03 by mouth. ity o f 09:38: [address] fosinopril 2016-07 Yes 20mg Take 20 mg U nivers 20 mg 0-03 by mouth. ity of tablet 09:38: [address] cephALEXin Yes TAKE ONE Uni vers [...] NEXT STRIPS 8-08 ity of strip 00:00: [place] [facility] CONTOUR Yes Univers NEXT STRIPS 8-08 ity of strip 00:00: [address] [place] [address] allopurinol Yes Univer s 100 mg 7-27 ity of tablet 00:00: [address] [place] [address] allopurinol Yes Univer s 100 mg 7-27 ity of tablet 00:00: [address] calcitriol Yes TAKE ONE Uni vers [...] Source Systolic blood 2021-10-02 19:26:00 106 mm[Hg] [facility] Diastolic blood 2021-10-02 19:26:00 66 [facility]Hg[facility] Heart rate 2021-10-02 19:26:00 72 /min [facility] Body height 2021-10-02 19:26:[address] [facility] Body weight 2021-10-02 19:26:[address] [facility] BMI 2021-10-02 19:26:00 27.89 kg/m2 [facility] Oxygen saturation 2021-10-02 19:26:00 97 /min [facility] in Arterial blood Medical Br anch by [...] Procedure Date / Time Performed Performing Clinician [facility] e PHYSICIAN ORDERS 2021-10-16 05:01:00 Doctor Unakely, Martha [facility] Medical [place] Encounters Start End Encounter Admission Attending Care Care Encounter Source Date/Time Date/Time Type Type Clinicians Facility Department ID 2020-11-13 Outpatient BAOGARRY [facility] [id number] [place] 15:45:00 VIRAJ [facility] 2019-11-18 Outpatient ABBIE [facility] CAR 75[address] M [facility] 08:31:52 VIRAJ 2021-11-20 2021-11-20 Outpatient EMELY DOAN [facility] [id number] [place] 00:00:00 00:00:[address] 2021-11-05 2021-11-05 Outpatient JOSE ARMANDO [facility] [id number] [place] 00:00:00 00:00:00 RICHARD [address] 2021-10-16 2021-10-16 Orders Doctor ADHIKARI [id number] [place] [address] 00:00:00 00:00:00 Only UnassZACHARY nunez 350.1.13.10 itjimmie of [facility][1] 4.2.7.2.686 Anurag as [id number] [place] [address] Branch 2021-10-02 2021-10-02 Office RUPALI Jaquez [id number] [place] [address] 15:30:00 15:31:03 Visit [place] [id number] it y adrian [place] [id number] Anurag as SHALONDA?BLEA [id number] Nh armando [address] MEDICAL OFFICE BUILDING 2021-10-02 2021-10-02 Outpatient Anabel JAQUEZ [facility] [id number] Univers 15:30:00 15:31:03 [facility] 2021-09-23 2021-09-28 Inpatient ER SHIEH, [facility] [id number] [facility] 03:10:00 10:36:00 GARRETT 2021-07-30 2021-07-30 Outpatient JOSE ARMANDO, [facility] [id number] [place] 00:00:00 00:00:00 RICHARD 378 [facility] zafar 2021-06-27 2021-07-04 Outpatient INGRID, [facility] [id number] [place] 00:00:00 00:00:00 ALBERT [address] 2021-06-05 2021-06-05 Outpatient EMELY DOAN [facility] [id number] [place] 00:00:00 00:00:[address] 2021-06-05 2021-06-05 Outpatient FRANKI EMELY [facility] [id number] [place] 00:00:00 00:00:[address] 2021-05-03 2021-05-03 Outpatient JOSE ARMANDO, [facility] [id number] [place] 00:00:00 00:00:00 RICHARD [address] 2021-03-28 2021-03-28 Outpatient JOSE ARMANDO, [facility] [id number] [place] 00:00:00 00:00:00 RICHARD [address] 2021-03-02 2021-03-02 Outpatient FRANKI EMELY [facility] [id number] [place] 00:00:00 00:00:[address] 2021-01-12 2021-01-12 Outpatient MAIRA CHEN [facility] [id number] [place] 00:00:00 00:00:[address] 2021-01-03 2021-01-03 Outpatient RADHA, [facility] [id number] [place] 00:00:00 00:00:00 ALEJANDRO [address] 2021-01-03 2021-01-03 Outpatient RADHA, [facility] [id number] [place] 00:00:00 00:00:00 ALEJANDRO [address] 2021-01-01 2021-01-01 Office TRINH Leiva 6400 [id number] 11:18:17 12:10:[address] [id number] [id number] [id number] 2021-01-01 2021-01-01 Office TRINH Leiva 6400 [id number] [id number] [place] 11:18:17 12:10:[address] 350.1.13.58 Health 9.2.7.2.686 [id number] 2020-12-27 2020-12-[address] [facility] [id number] [place] 00:00:00 00:00:00 Viraj SUGAR 350.1.13.58 [facility] 9.2.7.2.686 [address] [id number] AND 1 WOMENS 2020-11-10 2020-11-10 Outpatient EMELY DOAN [facility] [id number] [place] 00:00:00 00:00:00 919 Method i 2020-11-01 2020-11-01 Outpatient JOSE ARMANDO, [facility] [id number] [place] 00:00:00 00:00:00 RICHARD 504 Meth zafar 2020-10-23 2020-10-27 [id number] Britt 00:00:00 00:00:00 PAULY 489 Method i 2020-09-22 2020-09-22 Outpatient EMELY DOAN [facility] [id number] [place] 00:00:00 00:00:00 556 Method i 2020-08-29 2020-09-11 Inpatient AIXA [facility] [id number] [place] 00:00:00 00:00:00 PAULY 280 Method i 2020-08-25 2020-08-31 Outpatient EMELY DOAN [facility] [id number] [place] 00:00:00 00:00:[address] 2020-08-15 2020-08-19 Inpatient XU, [facility] [id number] [place] 00:00:00 00:00:00 MARIAH [address] 2020-07-28 2020-07-28 Outpatient EMELY DOAN [facility] [id number] [place] 00:00:00 00:00:[address] 2020-07-28 2020-07-28 Outpatient EMELY DOAN [facility] [id number] [place] 00:00:00 00:00:[address] 2020-07-14 2020-07-14 Outpatient MAIRA CHEN [facility] [id number] [place] 00:00:00 00:00:[address] 2020-07-13 2020-07-13 Outpatient JOSE ARMANDO [facility] [id number] [place] 00:00:00 00:00:00 RICHARD [address] 2020-07-13 2020-07-13 Outpatient MARIA EUGENIA [facility] [id number] [place] 00:00:00 00:00:00 SIRAYA [address] 2020-07-12 2020-07-12 Outpatient [facility] [id number] [place] 00:00:00 00:00:[address] 2020-05-26 2020-05-26 Outpatient EMELY DOAN [facility] [id number] [place] 00:00:00 00:00:[address] 2020-05-23 2020-05-23 Outpatient DELAFLOR-SA [facility] [id number] [place] 00:00:00 00:00:00 NTAANA, [address] 2020-05-08 2020-05-18 Inpatient KEENAN, [facility] [id number] [place] 00:00:00 00:00:00 ANETTE [address] 2020-05-05 2020-05-05 Outpatient EMELY DOAN [facility] [id number] [place] 00:00:00 00:00:[address] 2020-05-03 2020-05-03 Outpatient JOSE ARMANDO [facility] [id number] [place] 00:00:00 00:00:00 RICHARD [address] 2020-04-26 2020-04-26 Outpatient ALIDA [facility] [id number] [place] 00:00:00 00:00:00 ASHRITH [address] 2020-04-24 2020-04-24 Outpatient MEELY DOAN [facility] [id number] [place] 00:00:00 00:00:[address] 2020-04-14 2020-04-14 Outpatient EMELY DOAN [facility] [id number] [place] 00:00:00 00:00:[address] 2020-04-03 2020-04-03 Outpatient Daniel_T VFP VFP [id number] 03-26 [facility] 01:57:00 01:57:00 [id number] Family Practic e 2020-03-17 2020-03-17 Outpatient EMELY DOAN [facility] [id number] [place] 00:00:00 00:00:[address] 2020-03-09 2020-03-09 Outpatient DELAFLOR-SA [facility] [id number] [place] 00:00:00 00:00:00 NTAANA, [address] 2020-02-24 2020-03-02 Inpatient EMELY DOAN [facility] [id number] [place] 00:00:00 00:00:[address] 2020-02-23 2020-02-23 Outpatient EMELY DOAN [facility] [id number] [place] 00:00:00 00:00:[address] 2020-02-11 2020-02-11 Outpatient EMELY DOAN [facility] [id number] [place] 00:00:00 00:00:[address] 2020-02-04 2020-02-04 Outpatient JOSE ARMANDO [facility] [id number] [place] 00:00:00 00:00:00 RICHARD [address] 2020-01-20 2020-01-25 Inpatient SAVANA [facility] [id number] [place] 00:00:00 00:00:00 AMITKUMAR [address] 2020-01-12 2020-01-12 Outpatient CHENMAIRA [facility] [id number] [place] 00:00:00 00:00:[address] 2019-12-31 2019-12-31 Outpatient EMELY DOAN [facility] [id number] [place] 00:00:00 00:00:[address] 2019-12-31 2019-12-31 Outpatient EMELY DOAN [facility] [id number] [place] 00:00:00 00:00:[address] 2019-12-27 2019-12-27 Outpatient TRISHA, [facility] [id number] [place] 00:00:00 00:00:00 TRISHA [address] 2019-12-17 2019-12-18 Outpatient BRITTANY, [facility] [id number] [place] 00:00:00 00:00:00 MERCY [address] 2019-11-18 2019-11-18 Outpatient KELVIN, [facility] [id number] [place] 00:00:00 00:00:00 MAHWASH [address] 2019-11-04 2019-11-04 Outpatient JOSE ARMANDO, [facility] [id number] [place] 00:00:00 00:00:00 RICHARD [address] 2019-10-19 2019-10-19 Outpatient JOSE ARMANDO, [facility] [id number] [place] 00:00:00 00:00:00 RICHARD [address] 2019-09-17 2019-09-17 Outpatient EMELY DOAN [facility] [id number] [place] 00:00:00 00:00:[address] 2019-09-02 2019-09-09 Inpatient AIXA, [facility] [id number] [place] 00:00:00 00:00:00 PAULY [address] Results Test Description Test Time Test Comments Results Result Comments Source BLOOD CULTURE 2021-09-28 10:00:39 Test Item Value Reference Range Interpretation Comme nts CULTURE (BEAKER) (test code = 1095) No growth in 5 days BLOOD [id number] 10:00:38 Test Item Value Reference Range Interpretation Comments CULTURE (BEAKER) (test No growth in 5 days code = 1095) [id number] 08:17:33 Test Item Value Reference Range Interpretation Comments MAGNESIUM (BEAKER) 1.8 mg/dL 1.5-3.0 Specimen slightly (test code = 627) hemolyzed System Specialist ID - DSENSONOperator ID - DSENSONOperator ID - DSENSONOperator ID - DSENSONBASIC METABOLIC [id number] 05:35:07 Test Item Value Reference Range Interpretation [...] S NOT APPLICABLE FOR DIALYSIS PATIEN TS. System Specialist ID - [id number] ID - [id number] ID - XARV72Tjqherjz ID - [id number] ID - WNHW88Eweqndbc ID - WYYB20Ihgvuhel ID - GOAR29Qcjsckll ID - NCVZ16Hhlsrxfh ID - DEMY85Bxawaprd ID - LBDD54Asqvyipc ID - PXFK16Xmuyzbek ID - [id number] ID - [id number] W/PLT COUNT & AUTO [id number] 05:04:38 Test Item Value Reference Range Interpretation [...] PERCENT (BEAKER) (test code = 2801) POCT-GLUCOSE [id number] 04:47:27 Test Item Value Reference Range Interpretation Comments POC-GLUCOSE METER 98 mg/dL 70-110 : TESTED A T [facility] [address] (BEAKER) (test code = [address], 1538) [facility] 77 478: System Specialist/Techni kate ID = [id number] for Michelle Knight POCT-GLUCOSE [id number] 23:00:37 Test Item Value Reference Range Interpretation Comments POC-GLUCOSE METER 100 mg/dL 70-110 : TESTED A T [facility] [address] (BEAKER) (test code [address], = 1538) [place] [address] 478: System Specialist/Techni kate ID = [id number] for Michelle Knight POCT-GLUCOSE [id number] 15:20:37 Test Item Value Reference Range Interpretation Comments POC-GLUCOSE METER 126 mg/dL 70-110 H : TESTED A T [facility] [address] (BEAKER) (test code [address], = 1538) [place] [address] 478: System Specialist/Techni kate ID = [id number] for Will iams, Caro POCT-GLUCOSE [id number] 11:52:27 Test Item Value Reference Range Interpretation Comments POC-GLUCOSE METER 94 mg/dL 70-110 : TESTED A T [facility] [address] (BEAKER) (test code = [address], 15[address]) [place] [id number]: System Specialist/Techni kate ID = [id number] for Will iams, Caro POCT-GLUCOSE [id number] 06:47:47 Test Item Value Reference Range Interpretation Comments POC-GLUCOSE METER 92 mg/dL 70-110 : TESTED A T [facility] [address] (BEAKER) (test code = [address], 1538) [place] [address] 478: System Specialist/Techni kate ID = [id number] for Bridget Salas BASIC METABOLIC [id number] 05:34:54 Test Item Value Reference Range Interpretation [...] S NOT APPLICABLE FOR DIALYSIS PATIEN TS. System Specialist ID - NSUVAGIYAOperator ID - NSUVAGIYAOperator ID - NSUVAGIYAOperator ID - NSUVAGIYAOperatorID - NSUVAGIYAOperator ID - NSUVAGIYAOperator ID - NSUVAGIYAOperator ID - NSUVAGIYAOperator ID - NSUVAGIYAOperator ID - NSUVAGIYAOperator ID - NSUVAGIYAOperator ID - NSUVAGIYAOperator ID - NSUVAGIYA CBC W/PLT COUNT & AUTO [id number] 05:03:55 Test Item Value Reference Range Interpretation [...] PERCENT (BEAKER) (test code = 2801) POCT-GLUCOSE [id number] 21:46:46 Test Item Value Reference Range Interpretation Comments POC-GLUCOSE METER 163 mg/dL 70-110 H : TESTED A T [facility] 1317 ([facility] (test code [facility], = 1538) [place] [address]: System Specialist/Techni kate ID = [id number] for Ben buckley Mal[place] POCT-GLUCOSE [id number] 17:12:16 Test Item Value Reference Range Interpretation Comments POC-GLUCOSE METER 132 mg/dL 70-110 H : Notified RN/MD: TESTED ([facility]) (test code AT [facility] [address] = 1538) [place] [address]: System Specialist/Techni kate ID = [id number] for Laws on, Latishia POCT-GLUCOSE [id number] 11:09:45 Test Item Value Reference Range Interpretation Comments POC-GLUCOSE METER 128 mg/dL 70-110 H : Notified RN/MD: TESTED (BEAKER) (test code AT [facility] [address] = 1538) [place] [address]: System Specialist/Techni kate ID = [id number] for Laws on, Latishia BASIC METABOLIC [id number] 10:11:46 Test Item Value Reference Range Interpretation [...] m DATA TO CALCULA TE ESTIMATED GFR. System Specialist ID - [id number] ID - [id number] ID - [id number] ID - [id number] ID - [id number] ID - [id number] ID - [id number] ID - ISWZN486Blwtwssq ID - [id number] ID - [id number] 10:09:12 Test Item Value Reference Range Interpretation Comments MAGNESIUM (BEAKER) (test code = 2.0 mg/dL 1.5-3.0 627) System Specialist ID - [id number] ID - [id number] ID - [id number] ID - [id number] W/PLT COUNT & AUTO [id number] 09:35:09 Test Item Value Reference Range Interpretation [...] PERCENT (BEAKER) (test code = 2801) POCT-GLUCOSE [id number] 06:09:14 Test Item Value Reference Range Interpretation Comments POC-GLUCOSE METER 84 mg/dL 70-110 : TESTED A T [facility] [address]17 (BEAKER) (test code = [address], 1538) [facility] 77 478: System Specialist/Techni kate ID = [id number] for Michelle Knight POCT-GLUCOSE [id number] 21:48:15 Test Item Value Reference Range Interpretation Comments POC-GLUCOSE METER 122 mg/dL 70-110 H : TESTED A T [facility] [address]17 (BEAKER) (test code [address], = 1538) [place] [address] 478: System Specialist/Techni kate ID = [id number] for Bridget Salas POCT-GLUCOSE [id number] 17:30:56 Test Item Value Reference Range Interpretation Comments POC-GLUCOSE METER 78 mg/dL 70-110 : TESTED A T [facility] [address]17 (BEAKER) (test code = [address], 1538) [place] 7376[address]: System Specialist/Techni kate ID = [id number] for Beka Adorno POCT-GLUCOSE [id number] 11:52:53 Test Item Value Reference Range Interpretation Comments POC-GLUCOSE METER 72 mg/dL 70-110 : TESTED A T [facility] [address]17 (BEAKER) (test code = [address], 1538) [place] 7[address]: System Specialist/Techni kate ID = [id number] for Beka Adorno HEPATIC FUNCTION [id number] 06:59:28 Test Item Value Reference Range Interpretation [...] Specimen slightly (test code = 347) hemolyzed System Specialist ID - [id number] ID - [id number] ID - [id number] ID - rznj02Zhtrnfsu ID - ttmk45Swtmasxz ID - epcq23Iubysoac ID - vcbg43Xqwnvlcf ID - pfsp26Fyzszjjv ID - uylt94Qlvwswcn ID - jfjj61UWDAC METABOLIC [id number] 06:56:05 Test Item Value Reference Range Interpretation [...] m DATA TO CALCULA TE ESTIMATED GFR. System Specialist ID - [id number] ID - [id number] ID - jlwr67Cpmykoqn ID - bkng06Pibhyclq ID - brpk74Ugsqvamd ID - istl22Sclhlqpp ID - iqwg51Aomwlaap ID - vekr00Dgbxcwsh ID - aqmz15Hutkjowp ID - [id number] W/PLT COUNT & AUTO [id number] 06:40:28 Test Item Value Reference Range Interpretation [...] PERCENT (BEAKER) (test code = 2801) POCT-GLUCOSE [id number] 05:32:55 Test Item Value Reference Range Interpretation Comments POC-GLUCOSE METER 89 mg/dL 70-110 : Notified RN/MD: TESTED (BEAKER) (test code = AT [facility] [address]) [facility] [address]: System Specialist/Techni kate ID = [id number] for Maribeth Dickson POCT-GLUCOSE [id number] 17:11:16 Test Item Value Reference Range Interpretation Comments POC-GLUCOSE METER 124 mg/dL 70-110 H : Notified RN/MD: TESTED (BEAKER) (test code AT [facility] [address] = 1538) [facility] [id number]: System Specialist/Techni kate ID = [id number] for Dariel h, Kayleighita POCT-GLUCOSE [id number] 11:57:49 Test Item Value Reference Range Interpretation Comments POC-GLUCOSE METER 164 mg/dL 70-110 H : Notified RN/MD: TESTED (BEAKER) (test code AT [facility] [address] = 1538) [place] [id number]: System Specialist/Techni kate ID = [id number] for Dariel h, Lorita BASIC METABOLIC [id number] 05:37:52 Test Item Value Reference Range Interpretation [...] m DATA TO CALCULA TE ESTIMATED GFR. System Specialist ID - LITOOperator ID - LITOOperator ID - LITOOperator ID - LITOOperator ID - LITOOperator ID - LITOOperator ID - LITOOperator ID - LITOOperator ID - LITOOperator ID - LITOHEPATIC FUNCTION [id number] 05:33:43 Test Item Value Reference Range Interpretation [...] Specimen slightly (test code = 347) hemolyzed System Specialist ID - LITOOperator ID - LITOOperator ID - LITOOperator ID - LITOOperator ID - LITOOperator ID - LITOOperator ID - LITOOperator ID - LITOOperator ID - LITOOperator ID - LITOCBC W/PLT COUNT & AUTO [id number] 05:31:08 Test Item Value Reference Range Interpretation [...] (BEAKER) (test code = 2801) HEMOGLOBIN AND [id number] 22:35:07 Test Item Value Reference Range Interpretation Comments HEMOGLOBIN (BEAKER) (test code = 8.2 GM/DL 13.0-16.8 L 410) HEMATOCRIT (BEAKER) (test code = 26.1 % 36.0-50.0 L 411) POCT-GLUCOSE [id number] 21:10:24 Test Item Value Reference Range Interpretation Comments POC-GLUCOSE METER 158 mg/dL 70-110 H : Notified RN/MD: TESTED (BEAKER) (test code AT [facility] [address] = 1538) [facility] [id number]: System Specialist/Techni kate ID = [id number] for Prov Maribeth lee U/S, RENAL, [id number] 18:57:00Reason for exam:->elevated Cr [facility] CENTERName: MARCELA ALCARAZ : 1935 Sex: MFINAL REPORT [...] MDReport Verified Date/Time: 09/23/2021 18:57:43 HEMOGLOBIN AND [id number] 18:02:18 Test Item Value Reference Range Interpretation Comments HEMOGLOBIN (BEAKER) (test code = 9.4 GM/DL 13.0-16.8 L 410) HEMATOCRIT (BEAKER) (test code = 29.9 % 36.0-50.0 L 411) TROPONIN [id number] 17:56:55 Test Item Value Reference Range Interpretation [...] failure, acidosis, acute neurological disease, and persistent tachyarrhythmia.System Specialist ID - [id number]-GLUCOSE METER 2021-09-23 17:52:16 Test Item Value Reference Range Interpretation Comments POC-GLUCOSE METER 118 mg/dL 70-110 H : TESTED A T [facility] [address] (BEAKER) (test code [address], = 1538) [place] [id number]: System Specialist/Techni kate ID = [id number] for Sarah Teran POCT-GLUCOSE [id number] 11:32:42 Test Item Value Reference Range Interpretation Comments POC-GLUCOSE METER 131 mg/dL 70-110 H : TESTED A T [facility] [address] (BEAKER) (test code [address], = 1538) [place] [id number]: System Specialist/Techni kate ID = [id number] for Selene Tinajero TROPONIN [id number] 10:57:24 Test Item Value Reference Range Interpretation [...] failure, acidosis, acute neurological disease, and persistent tachyarrhythmia.System Specialist ID - JAQUELYNNEHEMOGLOBIN AND [id number] 10:50:03 Test Item Value Reference Range Interpretation Comments HEMOGLOBIN (BEAKER) (test code = 9.1 GM/DL 13.0-16.8 L 410) HEMATOCRIT (BEAKER) (test code = 28.9 % 36.0-50.0 L 411) URINALYSIS W/ REFLEX URINE [id number] 07:28:56 Test Item Value Reference Range Interpretation [...] 1663) SOURCE(BEAKER) (test code = 2795) TROPONIN [id number] 06:35:09 Test Item Value Reference Range Interpretation [...] failure, acidosis, acute neurological disease, and persistent tachyarrhythmia.System Specialist ID - [id number] A1C 2021-09-23 05:13:31 Test Item Value Reference Range Interpretation Comments HEMOGLOBIN A1C (BEAKER) (test code = 5.7 % 4.3-6.1 368) System Specialist ID - [id number], CHEST, 1 VIEW, NON [id number] 04:38:00Reason for exam:->baselineShould this be performed at the bedside?->Yes [facility] CENTERName: MARCELA ALCARAZ : 1935 Sex: MFINAL REPORT INDICATION: baseline COMPARISON: None TECHNIQUE: Single f rontal view of the chest. FINDINGS: Lungs and pleura: Clear lungs. No effusion. Heart and mediastinum: Normal heart size. 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 Unremarkable mediastinal contours. Osseous structures: No acute abnormality. Other: None. IMPRESSION: No acute intrathoracic abnormality. Signed: Albert Arango MDReport Verified Date/Time: 09/23/2021 04:38:32 BASIC METABOLIC [id number] 04:34:59 Test Item Value Reference Range Interpretation [...] m DATA TO CALCULA TE ESTIMATED GFR. System Specialist ID - [id number] ID - [id number] ID - [id number] ID - [id number] ID - [id number] ID - [id number] ID - [id number] ID - [id number] ID - GNRL69Cnidhuqh ID - [id number] 04:32:57 Test Item Value Reference Range Interpretation Comments MAGNESIUM (BEAKER) 2.2 mg/dL 1.5-3.0 Specimen slightly (test code = 627) hemolyzed System Specialist ID - [id number] ID - [id number] ID - [id number] ID - [id number] HEPATIC FUNCTION [id number] 04:32:57 Test Item Value Reference Range Interpretation [...] Specimen slightly (test code = 347) hemolyzed System Specialist ID - [id number] ID - [id number] ID - [id number] ID - [id number] ID - [id number] ID - ZUIF50Stfutnpf ID - [id number] 2021-09-23 04:29:39 Test Item Value Reference Range Interpretation Comments PHOSPHORUS (BEAKER) 4.3 mg/dL 2.5-4.5 Specimen slightly (test code = 604) hemolyzed System Specialist ID - [id number] TIME/[id number] 04:25:54 Test Item Value Reference Range Interpretation Comments PROTIME (BEAKER) 12.6 seconds 9.3-12.0 H Final Infor mation (test code = 759) (Auto Outp ut) INR (BEAKER) (test 1.16 See_Comment Final Inf ormation code = 370) (Auto Output) [Automated mess age] The system [employer] generated this result transmitted ref erence range: [...] PERCENT (BEAKER) (test code = 2801) POCT-GLUCOSE [id number] 03:44:38 Test Item Value Reference Range Interpretation Comments POC-GLUCOSE METER 167 mg/dL 70-110 H : TESTED A T [facility] [address] (BEAKER) (test code [facility] [address], = 1538) [place] [id number]: System Specialist/Techni kate ID = [id number] for Ahsan Orozco POCT-GLUCOSE [id number] 03:27:46 Test Item Value Reference Range Interpretation Comments POC-GLUCOSE METER 164 mg/dL 70-110 H : TESTED A T [facility] [address] (BEAKER) (test code [address], = 1538) [place] [id number]: System Specialist/Techni kate ID = [id number] for [place] amk Kirk SARS-CoV-2 (COVID-19) RNA [Presence] in Respiratory specimen by ANDREW with probe [id number] 11:35:00 Test Item Value Reference Range Interpretation Comments 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 (test code = 28055-6) Whether the patient was admitted to intensive care unit (ICU) for condition of interest (test code = 87193-2) SARS-CoV-2 (COVID-19) RNA [Presence] in Respiratory specimen by ANDREW with probe [id number] 00:24:51 Test Item Value Reference Range Interpretation Comments SARS-CoV-2 (COVID-19) RNA Not detected Not-Detected [Presence] in Respiratory specimen by ANDREW with probe detection (test code = 92162-5) SARS-CoV-2 (COVID-19) RNA [Presence] in Respiratory specimen by ANDREW with probe [id number] 23:06:04 Test Item Value Reference Range Interpretation Comments SARS-CoV-2 (COVID-19) RNA Not detected Not-Detected [Presence] in Respiratory specimen by ANDREW with probe detection (test code = 07935-3) SARS-CoV-2 (COVID-19) RNA [Presence] in Respiratory specimen by ANDREW with probe [id number] 19:57:13 Test Item Value Reference Range Interpretation Comments SARS-CoV-2 (COVID-19) RNA Not detected Not-Detected [Presence] in Respiratory specimen by ANDREW with probe detection (test code = 73826-8) SARS-CoV-2 (COVID-19) RNA [Presence] in Respiratory specimen by ANDREW with probe [id number] 23:40:00 Test Item Value Reference Range Interpretation Comments SARS-CoV-2 (COVID-19) RNA Not detected Not-Detected [Presence] in Respiratory specimen by ANDREW with probe detection (test code = 06296-4) SARS-CoV-2 (COVID-19) RNA [Presence] in Respiratory specimen by ANDREW with probe [id number] 22:07:46 Test Item Value Reference Range Interpretation Comments SARS-CoV-2 (COVID-19) RNA Not detected Not-Detected [Presence] in Respiratory specimen by ANDREW with probe detection (test code = 65048-3) SARS-CoV-2 (COVID-19) RNA [Presence] in Respiratory specimen by ANDREW with probe [id number] 21:47:42 Test Item Value Reference Range Interpretation Comments SARS-CoV-2 (COVID-19) RNA Not detected Not-Detected [Presence] in Respiratory specimen by ANDREW with probe detection (test code = 60497-0) SARS-CoV-2 (COVID-19) RNA [Presence] in Respiratory specimen by ANDREW with probe [id number] 14:31:58 Test Item Value Reference Range Interpretation Comments SARS-CoV-2 (COVID-19) RNA Not detected Not-Detected [Presence] in Respiratory specimen by ANDREW with probe detection (test code = 92518-4)
[2021-11-26] MEDS ORDERED: ONDANSETRON 4 MG (ODT) TAB ONE (10:43)
[2021-11-26] MEDS ORDERED: HYDROCODONE/CHLORPHEN 5 ML/OSYR ONE (10:43)
--- NOTE | 2021-11-26 11:42 | RAD REPORT ---
EXAM DESCRIPTION: RAD - Chest Single View - 11/26/2021 11:29 am CLINICAL HISTORY: COUGH Chest pain. COMPARISON: Chest Single View dated 10/25/2021; Chest Single View dated 10/18/2021; Abdomen 1 View (KU B) dated 08/14/2021; Chest Single View dated 08/12/2021 FINDINGS: Portable technique limits examination quality. Mild interstitial pulmonary edema seen. The heart is moderately enlarged with multilead pacer/defibri llator device present. Sternotomy wires present. IMPRESSION: Mild CHF.
--- NOTE | 2021-11-26 13:33 | EDPHYS ---
Physician Documentation [facility] Name: Gilmer Mercado Age: 86 yrs Sex: Male : 1935 Arrival Date: 11/26/2021 Time: 10:21 Bed 18 Private MD: ED Physician Daniel Cintron HPI: 11/26 10:28 This 86 yrs old Male presents to ER via EMS with complaints of Cough. jmm 10:28 The patient or guardian reports cough. Onset: The symptoms/episode began/occurred jmm gradually, 3 day(s) ago. Modifying factors: The symptoms are alleviated by nothing, the symptoms are aggravated by nothing. Associated signs and symptoms: Pertinent positives: earache, sore throat. The patient has experienced similar episodes in the past. Historical: - Allergies: 10:28 No Known Allergies; ap3 - PMHx: 10:28 BPH; Diabetes - IDDM; High Cholesterol; Pacemaker; PNUEMONIA; Hypertension; ap3 - PSHx: 10:28 CABG; pacemaker; ap3 - Immunization history:: Client reports receiving the 2nd dose of the Covid vaccine. - Social history:: Smoking status: Patient denies any tobacco usage or history of. ROS: 10:28 Constitutional: Positive for body aches, chills, fatigue. jmm 10:28 ENT: Positive for sore throat. 10:28 Respiratory: Positive for cough. 10:28 Abdomen/GI: Positive for nausea. 10:28 All other systems are negative. Exam: 10:28 Constitutional: This is a well developed, well nourished patient who is awake, alert, jmm and in no acute distress. Head/Face: atraumatic. Eyes: EOMI, no conjunctival erythema appreciated 10:28 Neck: Trachea midline, Supple Chest/axilla: Normal chest wall appearance and motion. Cardiovascular: Regular rate and rhythm. No edema appreciated 10:28 Abdomen/GI: Non distended, soft Back: Normal ROM Skin: General appearance color normal MS/ Extremity: Moves all extremities, no obvious deformities appreciated, no edema noted to the lower extremities Neuro: Awake and alert Psych: Behavior is normal, Mood is normal, Patient is cooperative and pleasant 10:28 ENT: Posterior pharynx: erythema, that is mild. 10:28 Respiratory: the patient does not display signs of respiratory distress, Respirations: normal, Breath sounds: are clear throughout. Vital Signs: 10:26 BP 148 / 99; Pulse 90; Resp 17; Temp 98.6; Pulse Ox 100% on R/A; Weight 102.06 kg; ap3 Height 5 ft. 11 in. (180.34 cm); 11:22 BP 146 / 93; Pulse 89; Pulse Ox 97% on 1 lpm NC; ap3 12:18 BP 130 / 97; Pulse 84; Pulse Ox 94% on 1 lpm NC; ap3 12:54 BP 134 / 69; Pulse 82; Pulse Ox 95% on 1 lpm NC; ap3 14:24 BP 105 / 89; Pulse 76; Pulse Ox 94% on 1 lpm NC; ap3 10:26 Body Mass Index 31.38 (102.06 kg, 180.34 cm) ap3 MDM: 10:28 Patient medically screened. [facility] 13:31 Data reviewed: vital signs, nurses notes. Counseling: I had a detailed discussion with [facility] the patient and/or guardian regarding: the historical points, exam findings, and any diagnostic results supporting the discharge/admit diagnosis, lab results, radiology results, the need for outpatient follow up, to return to the emergency department if symptoms worsen or persist or if there are any questions or concerns that arise at home. 11/26 10:28 Order name: Influenza Screen (a \T\ B); Complete Time: 11:15 [facility] 11/26 10:29 Order name: Strep; Complete Time: 11:15 [facility] 11/26 10:28 Order name: Chest Single View XRAY; Complete Time: 11:47 [facility] 11/26 11:03 Order name: Throat Culture EDMS Administered Medications: 10:47 Drug: Zofran (Ondansetron) 4 mg Route: PO; jh6 13:47 Follow up: Response: No adverse reaction ap3 10:47 Drug: Tussionex Pennkinetic ER (chlorpheniramine-hydrocodone) Suspension 2.5 ml Route: jh6 PO; 13:47 Follow up: Response: No adverse reaction ap3 Disposition: 18:22 Co-signature as Attending Physician, Daniel GARCIA was immediately available on-site ms3 in the Emergency Department for consultation in the care of the patient.. Disposition Summary: 11/26/21 13:32 Discharge Ordered Location: Home [facility] Condition: Stable jm Diagnosis - Acute pharyngitis, unspecified jmm - Cough [facility] Followup: [facility] - With: Private Physician - When: 2 - 3 days - Reason: Recheck today's complaints, Continuance of care, Re-evaluation by your physician Discharge Instructions: - Discharge Summary Sheet jm - Pharyngitis jmm - Cough, Adult jmm Forms: - Medication Reconciliation Form [facility] - Thank You Letter [facility] - Antibiotic Education [facility] - Prescription Opioid Use [facility] Prescriptions: - cefdinir 300 mg Oral capsule - take 1 capsule by ORAL route every 12 hours for 10 days; 20 capsule; Refills: [facility] 0, Product Selection Permitted - Bromfed DM 2-30-10 mg/5 mL Oral syrup - take 5 milliliter by ORAL route every 4 hours; 200 milliliter; Refills: 0, jm Product Selection Permitted - albuterol sulfate 90 mcg/actuation Inhalation HFA aerosol inhaler - inhale 2 puff by INHALATION route every 4 hours; 1 Pump; Refills: 0, Product jm Selection Permitted Signatures: Dispatcher [employer] Abel Tavarez PA PA jmm Prokisch, Amanda, RN RN ap3 Daniel Cintron DO DO ms3 Celsa Santos RN RN jh6
--- NOTE | 2021-11-26 13:33 | ER ---
Nurse's Notes [facility] [place] Name: Gilmer Mercado Age: 86 yrs Sex: Male : 1935 Arrival Date: 11/26/2021 Time: 10:21 Bed 18 Private MD: Diagnosis: Acute pharyngitis, unspecified;Cough Presentation: 11/26 10:26 Chief complaint: Patient states: he has had a cough with congestion for a few days now. ap3 patient states the drainage is going down the back of his throat causing throat pain. Patient states he has bad allergies, but hasn't been on any allergy medications for a few days now. Coronavirus screen: Client presents with at least one sign or symptom that may indicate coronavirus-19. Ebola Screen: No symptoms or risks identified at this time. Initial Sepsis Screen: Does the patient meet any 2 criteria? No. Patient's initial sepsis screen is negative. Does the patient have a suspected source of infection? No. Patient's initial sepsis screen is negative. Risk Assessment: Do you want to hurt yourself or someone else? Patient reports no desire to harm self or others. Onset of symptoms was November 21, 2021. 10:26 Method Of Arrival: EMS: [facility] ap3 10:26 Acuity: VIN 3 ap3 Triage Assessment: 10:29 General: Appears uncomfortable, Behavior is calm, cooperative. Pain: Denies pain. EENT: ap3 Reports nasal congestion nasal discharge pain when swallowing. Neuro: Level of Consciousness is awake, alert, obeys commands, Oriented to person, place, time, situation. Cardiovascular: Patient's skin is warm and dry. Respiratory: Reports cough that is productive, Airway is patent Respiratory effort is even, unlabored. Historical: - Allergies: 10:28 No Known Allergies; ap3 - PMHx: 10:28 BPH; Diabetes - IDDM; High Cholesterol; Pacemaker; PNUEMONIA; Hypertension; ap3 - PSHx: 10:28 CABG; pacemaker; ap3 - Immunization history:: Client reports receiving the 2nd dose of the Covid vaccine. - Social history:: Smoking status: Patient denies any tobacco usage or history of. Screenin:29 Abuse screen: Denies threats or abuse. Nutritional screening: No deficits noted. ap3 Tuberculosis screening: No symptoms or risk factors identified. Fall Risk None identified. Secondary diagnosis (15 points) No IV (0 pts). Ambulatory Aid- None/Bed Rest/Nurse Assist (0 pts). Gait- Normal/Bed Rest/Wheelchair (0 pts). Assessment: 11:23 Reassessment: Patient and/or family updated on plan of care and expected duration. Pain ap3 level reassessed. Patient is alert, oriented x 3, equal unlabored respirations, skin warm/dry/pink. Respiratory: Breath sounds are diminished in right middle lobe and left lower lobe. 12:18 Reassessment: Patient and/or family updated on plan of care and expected duration. Pain ap3 level reassessed. Patient is alert, oriented x 3, equal unlabored respirations, skin warm/dry/pink. 12:54 Reassessment: pt resting eyes closed, respirations even and unlabored. patient does not ap3 appear to exhibit any signs of distress at this time. bed is locked in lowest position, side rails are up X's 2 and call light is within reach. 13:49 Reassessment: report called to [facility] for patient return. ap3 13:55 Reassessment: awaiting transport back to correction. ap3 Vital Signs: 10:26 BP 148 / 99; Pulse 90; Resp 17; Temp 98.6; Pulse Ox 100% on R/A; Weight 102.06 kg; ap3 Height 5 ft. 11 in. (180.34 cm); 11:22 BP 146 / 93; Pulse 89; Pulse Ox 97% on 1 lpm NC; ap3 12:18 BP 130 / 97; Pulse 84; Pulse Ox 94% on 1 lpm NC; ap3 12:54 BP 134 / 69; Pulse 82; Pulse Ox 95% on 1 lpm NC; ap3 14:24 BP 105 / 89; Pulse 76; Pulse Ox 94% on 1 lpm NC; ap3 10:26 Body Mass Index 31.38 (102.06 kg, 180.34 cm) ap3 ED Course: 10:21 Patient arrived in ED. 5 10:24 Abel English PA is PHCP. jmm 10:24 Daniel Cintron DO is Attending Physician. jmm 10:26 Verónica Portillo, RN is Primary Nurse. ap3 10:28 Triage completed. ap3 10:30 Arm band placed on right wrist. ap3 10:30 Patient has correct armband on for positive identification. Bed in low position. Call ap3 light in reach. Side rails up X2. title i instructional assistant on. Pulse ox on. NIBP on. Door closed. Noise minimized. 10:48 Chest Single View XRAY Sent. jh6 10:48 Strep Sent. jh6 11:31 Chest Single View XRAY In Process Unspecified. EDMS 13:10 Nurse Practitioner and/or Physician Branch Service Representative to see patient. ap3 13:47 No provider procedures requiring assistance completed. ap3 16:11 Patient did not have IV access during this emergency room visit. ap3 Administered Medications: 10:47 Drug: Zofran (Ondansetron) 4 mg Route: PO; 6 13:47 Follow up: Response: No adverse reaction ap3 10:47 Drug: Tussionex Pennkinetic ER (chlorpheniramine-hydrocodone) Suspension 2.5 ml Route: [facility] PO; 13:47 Follow up: Response: No adverse reaction ap3 Medication: 10:30 VIS not applicable for this client. ap3 Outcome: 13:32 Discharge ordered by . richard 16:11 Discharged to correction. Report called to [facility] ap3 16:11 Condition: good 16:11 Discharge instructions given to patient, correction, Instructed on discharge instructions, follow up and referral plans. medication usage, Demonstrated understanding of instructions, follow-up care, medications, Prescriptions given X 3. 16:12 Patient left the ED. ap3 Signatures: Dispatcher [employer] EDMS Abel English PA PA jmm Martinez, [facility] Verónica Portillo RN RN ap3 Celsa Santos RN RN jh6
[2021-11-26 16:20] VITALS: TEMP 98.6
[2021-11-26 16:27] VITALS: BP 105/89; O2SAT 94
== END 2021-11-26 16:12 | disposition home or self-care (01) ==
LOC: ER 10:19
DX: R05.9 Cough, unspecified (principal); J02.9 Acute pharyngitis, unspecified; E11.9 Type 2 diabetes mellitus without complications; E78.00 Pure hypercholesterolemia, unspecified; I10 Essential (primary) hypertension; Z95.0 Presence of cardiac pacemaker; Z95.1 Presence of aortocoronary bypass graft
CPT/HCPCS: 71045; 87070; 87081; 87804; 99284

== ENCOUNTER 2021-12-02 17:45 | Inpatient (IN) | payer OTHER, MEDICARE ==
--- OUTSIDE RECORDS SUMMARY | 2021-12-02 17:50 | XMS REPORT | Continuity of Care Document ---
:1935 Author Organization [facility] t Address [address] [place] [address] Care Team Providers Name Role Phone Vianey SUÁREZ Primary Care Physician Unavailable SCARLETT Attending Clinician Unavailable LINDA LEIVA Attending Clinician Unavailable FRANKI Attending Clinician Unavailable JOSE ARMANDO Attending Clinician Unavailable Leonid YOU, S Attending Clinician Gladys JAQUEZ Attending [...] Date Gladys luciano MEDICARE PART A AND [id number] 2016 B 00:00:00 MEDICARE A B [id number] 2001 00:00:00 [facility] [id number] 2021 HEALTHCARE 00:00:00 BCBS PPO POS EPO [id number] 2015 CHOICE 00:00:00 Problems Condition Condition Condition Status Onset Resolution Last Treating Co mments Source Name Details Category Date Date Treatment Clinician Date No known No known Disease Unive rs active active ity of problems problems [facility] Allergies, Adverse Reactions, Alerts Allergy Allergy Status Severity Reaction(s) Onset Inactive Treating Comm ents Source Name Type Date Date Clinician NO KNOWN Allergy Active [facility] NO KNOWN Drug Active Univers ALLERGIE Class ity of S [facility] Social History Social Habit Start Date Stop Date Quantity Comments Source Exposure to 2021-09-02 2021-10-02 Not sure [facility] SARS-CoV-2 00:00:00 14:22:00 [facility] (event) Branch Alcohol intake 2021-10-02 2021-10-02 Current University 00:00:00 00:00:00 non-drinker of [facility] alcohol [place] (finding) Tobacco use and 2017-04-08 2017-04-08 Never used Universit y of exposure 00:00:00 00:00:00 [facility] Sex Ass[birth year] At [birth year] Universit y of 00:00:00 00:00:00 [facility] Smoking Status Start Date Stop Date Source Never smoker [facility] Medications Ordered Filled Start Stop Current Ordering Indication Dosage Frequency Signature Comments Components Source Medication Medication Date Date Medication? Clinician (SIG) Name Name triamcinolo 2021- No [id number] 80mg Univers ne 11-27 ity of acetonide 19:45: 18:33 [place] (KENALOG) 00 :00 Medical injection Branch 80 mg triamcinolo 2021- No [id number] 80mg 80 mg, [facility] 11-27 Intra-claudette ity of acetonide 19:45: 18:33 Mario torres (KENALOG) 00 :00 ONCE, 1 Medical injection dose, On Branch 80 mg 11/27/21 at 1445, Routine levothyroxi 2020-0 Yes Take by UT ne [...] 2020-0 Yes QD Take by UT (Flomax) 6- mouth 1 Health 0.4 MG 24 16:47: [...] mouth. Health MG tablet 16:47: 50 pantoprazol 1-0 Yes 40mg Take 40 mg UT e [...] 16:47: (four) 50 times a day. cetirizine 0 Yes 10mg QD Take 10 mg U T (ZyrTEC) 10 6-28 by mouth 1 He alth MG tablet 16:47: (one) time 50 each day. cephalexin 0 Yes 250mg Q.25D Take 250 U T (Keflex) 6-28 mg by Health 250 MG 16:47: mouth 4 capsule 50 (four) times a day. febuxostat 0 Yes Take by UT (Uloric) 40 6-28 mouth. Health MG tablet 16:47: 50 pantoprazol 0 Yes 40mg Take 40 mg UT e 6-28 by mouth 1 Health (ProtoNix) 16:47: (one) time 40 MG EC 50 each day tablet before breakfast. Do not crush, chew, or split. finasteride 0 Yes TAKE 1 UT (Proscar) 5 6-28 TABLET Health MG tablet 16:47: DAILY 02 finasteride 2020-0 Yes TAKE 1 UT (Proscar) 5 6-28 TABLET Health MG tablet 16:47: DAILY 02 finasteride 2021-0 Yes TAKE 1 UT (Proscar) 5 6-28 TABLET Health MG tablet 16:47: DAILY 02 finasteride 2020-0 Yes TAKE 1 UT (Proscar) 5 6-22 TABLET Health MG tablet 14:50: DAILY 43 carvedilol 2020-0 Yes 6.25mg Q.5D Take 6.25 [...] tablet 00 (one) time each day. amiodarone 1-0 Yes 200mg QD Take [...] tablet 00 (one) time each day. Jardiance 1-0 Yes 10mg QD Take 10 mg UT 10 MG 3-11 by mouth 1 Health 00:00: (one) time 00 each day. Jardiance 1-0 Yes 10mg QD Take 10 mg UT 10 MG 3-11 by mouth 1 Health 00:00: (one) time 00 each day. Jardiance 1-0 Yes 10mg QD Take 10 mg UT 10 MG 3-11 by mouth 1 Health 00:00: (one) time 00 each day. Jardiance 2021-0 Yes 10mg QD Take 10 mg UT 10 MG 3-11 by mouth 1 Health 00:00: (one) time 00 each day. famotidine 1-0 Yes 20mg Take 20 mg U T [...] DAILY ity of mg tablet 10:04: NEEDED [place] [address] Medical Branch Dexlansopra 2016-07 Yes Take by Un josh zole 0-03 mouth. ity of (DEXILANT) 10:04: [place] 60 57 Medical capsule Branch amiodarone 2016-07 Yes 200mg Take 200 Un josh 200 mg 0-03 mg by ity of tablet 10:04: mouth. [place] [address] Medical Branch aspirin 325 2016-07 Yes 325mg Take 325 U nivers mg tablet 0-03 mg by ity of 10:04: mouth. [place] [address] Medical Branch Azelastine 2016-07 Yes Use in Univ ers (ASTEPRO) 0-03 each ity of 0.15 % 10:04: nostril. [place] (205.5 mcg) Medical nasal spray Branch rosuvastati 2016-07 Yes 1 TABLET Un josh n (CRESTOR) 0-03 DAILY ity of 10 mg 09:38: [address] Branch doxazosin 4 2016-07 Yes 2mg Take 2 mg U nivers mg tablet 0-03 by mouth. ity o f 09:38: [address] Branch fosinopril 2016-07 Yes 20mg Take 20 mg U nivers 20 mg 0-03 by mouth. ity of tablet 09:38: [address] cephALEXin Yes TAKE ONE Uni vers 500 mg 9-17 (1) ity of capsule 00:00: [place] 00 BY MOUTH Medical EVERY SIX Branch HOURS FOR 10 DAYS. CONTOUR Yes Univers NEXT STRIPS 8-08 ity of strip 00:00: [place] [facility] Branch allopurinol Yes Univer s 100 mg 7-27 ity of tablet 00:00: [address] calcitriol Yes TAKE ONE Uni vers 0.25 mcg 7-18 (1) ity of capsule 00:00: [place] 00 BY MOUTH Medical ONCE A Branch DAY. levothyroxi Yes TAKE ONE Un josh ne 200 mcg 7-13 (1) ity of tablet 00:00: TABLET(S) 00 BY MOUTH Medical ONCE A DAY Branch IN THE MORNING. Vital Signs Vital Name Observation Time Observation Value Comments Source Systolic blood 2021-10-02 19:26:00 106 mm[Hg] [facility] Diastolic blood 2021-10-02 19:26:00 66 mm[Hg] [facility] Heart rate 2021-10-02 19:26:00 72 /min [facility] Body height 2021-10-02 19:26:00 180.3 cm [facility] Body weight 2021-10-02 19:26:00 90.719 kg [facility] BMI 2021-10-02 19:26:00 27.89 kg/m2 [facility] Oxygen saturation 2021-10-02 19:26:00 97 /min Uni versity [facility] [place] [facility] in Arterial blood [facility] by Pulse oximetry HEIGHT 2021-09-23 [...] Clinicians Facility Department ID 2020-11-13 Outpatient BAOGARRY [facility] [id number] [place] 15:45:00 VIRAJ [facility] 2019-11-18 Outpatient DAKOTAМАРИНАGARRY [facility] CAR 7512 M [facility] 08:31:52 VIRAJ 2021-11-20 2021-11-20 Outpatient EMELY DOAN [facility] [id number] 500 [place] 00:00:00 00:00:[address] 2021-11-05 2021-11-05 Outpatient JOSE ARMANDO, [facility] [id number] 749 [place] 00:00:00 00:00:[address] 2021-10-02 2021-10-02 Office RUPALI Jaquez [id number] Univers 15:30:00 15:31:03 Visit [facility] [id number] it jimmie campbell FORGAN [id number] Anurag as SHALONDA?BLEA [id number] Az armando [address] MEDICAL OFFICE [facility] 2021-10-02 2021-10-02 Outpatient Anabel LEONID [facility] [id number] Univers 15:30:00 15:31:03 [facility] 2021-09-23 2021-09-28 Inpatient ER SHIEH, [facility] [id number] [facility] 03:10:00 10:36:00 GAR[place]TT 2021-07-30 2021-07-30 Outpatient JOSE ARMANDO, [facility] [id number] 548 [place] 00:00:00 00:00:00 RICHARD [address] 2021-06-27 2021-07-04 Outpatient INGRID, [facility] [id number] 485 [place] 00:00:00 00:00:00 ALBERT [address] 2021-06-05 2021-06-05 Outpatient EMELY DOAN [facility] [id number] 387 [place] 00:00:00 00:00:[address] 2021-06-05 2021-06-05 Outpatient EMELY DOAN [facility] [id number] 541 [place] 00:00:00 00:00:[address] 2021-05-03 2021-05-03 Outpatient JOSE ARMANDO, [facility] [id number] 823 [place] 00:00:00 00:00:00 RICHARD [address] 2021-03-28 2021-03-28 Outpatient JOSE ARMANDO, [facility] [id number] 002 [place] 00:00:00 00:00:00 RICHARD [address] 2021-03-02 2021-03-02 Outpatient EMELY DOAN [facility] [id number] 717 [place] 00:00:00 00:00:[address] 2021-01-12 2021-01-12 Outpatient MAIRA CHEN [facility] [id number] [place] 00:00:00 00:00:[address] 2021-01-03 2021-01-03 Outpatient RADHA, [facility] [id number] 298 [place] 00:00:00 00:00:00 ALEJANDRO [address] 2021-01-03 2021-01-03 Outpatient RADHA, [facility] [id number] 298 [place] 00:00:00 00:00:00 ALEJANDRO [address] 2021-01-01 2021-01-01 Office DakotaTRINH olsen 6400 [id number] [place] 11:18:17 12:10:[address] [id number] Health [id number] [id number] 2021-01-01 2021-01-01 Office Scarlett, TRINH 6400 [id number] 11:18:17 12:10:[address] [id number] [id number] 2020-12-27 2020-12-27 Telephone TRINH Leiva [facility] [id number] [place] 00:00:00 00:00:00 Viraj SUGAR [id number] [facility] [id number] [id number] AND 1 WOMENS 2020-11-10 2020-11-10 Outpatient EMELY DOAN [facility] [id number] 158 [place] 00:00:00 00:00:[address] 2020-11-01 2020-11-01 Outpatient JOSE ARMANDO [facility] [id number] 500 [place] 00:00:00 00:00:00 RICHARD 504 Meth zafar 2020-10-23 2020-10-27 [place] [id number] 83 [place] 00:00:00 00:00:00 PAULY [address] 2020-09-22 2020-09-22 Outpatient EMELY DOAN [facility] [id number] 729 [place] 00:00:00 00:00:[address] 2020-08-29 2020-09-11 Inpatient KRUSE, [facility] 064 [id number] 88 [place] 00:00:00 00:00:00 PAULY [address] 2020-08-25 2020-08-31 Outpatient EMELY DOAN [facility] [id number] 466 [place] 00:00:00 00:00:[address] 2020-08-15 2020-08-19 Inpatient XU, [facility] [id number] 17 [place] 00:00:00 00:00:00 MARIAH [address] 2020-07-28 2020-07-28 Outpatient EMELY DOAN [facility] [id number] [place] 00:00:00 00:00:[address] 2020-07-28 2020-07-28 Outpatient EMELY DOAN [facility] [id number] 152 [place] 00:00:00 00:00:[address] 2020-07-14 2020-07-14 Outpatient MAIRA CHEN [facility] [id number] [place] 00:00:00 00:00:[address] 2020-07-13 2020-07-13 Outpatient JOSE ARMANDO, [facility] [id number] [place] 00:00:00 00:00:00 RICHARD [address] 2020-07-13 2020-07-13 Outpatient MARIA EUGENIA, [facility] [id number] [place] 00:00:00 00:00:00 SIRAYA [address] 2020-07-12 2020-07-12 Outpatient [facility] [id number] 315 [place] 00:00:00 00:00:[address] 2020-05-26 2020-05-26 Outpatient EMELY DOAN [facility] [id number] 938 [place] 00:00:00 00:00:[address] 2020-05-23 2020-05-23 Outpatient DELAFLOR-SA [facility] [id number] [place] 00:00:00 00:00:00 NTAANA, [address] 2020-05-08 2020-05-18 Inpatient KEENAN, [facility] 060 [id number] 54 [place] 00:00:00 00:00:00 ANETTE [address] 2020-05-05 2020-05-05 Outpatient EMELY DOAN [facility] [id number] 077 [place] 00:00:00 00:00:[address] 2020-05-03 2020-05-03 Outpatient JOSE ARMANDO, [facility] [id number] [place] 00:00:00 00:00:00 RICHARD [address] 2020-04-26 2020-04-26 Outpatient ALIDA [facility] [id number] 429 [place] 00:00:00 00:00:00 ASHRITH [address] 2020-04-24 2020-04-24 Outpatient EMELY DOAN [facility] [id number] 918 [place] 00:00:00 00:00:[address] 2020-04-14 2020-04-14 Outpatient EMELY DOAN [facility] [id number] [place] 00:00:00 00:00:[address] 2020-04-03 2020-04-03 Outpatient Daniel_T VFP VFP [id number] 03-26 [facility] 01:57:00 01:57:00 [id number] Family Practic e 2020-03-17 2020-03-17 Outpatient EMELY DOAN [facility] [id number] 022 [place] 00:00:00 00:00:[address] 2020-03-09 2020-03-09 Outpatient DELAFLOR-SA [facility] [id number] [place] 00:00:00 00:00:00 NTAANA, [address] 2020-02-24 2020-03-02 Inpatient EMELY DOAN [facility] 021 [id number] 94 [place] 00:00:00 00:00:[address] 2020-02-23 2020-02-23 Outpatient EMELY DOAN [facility] [id number] 552 [place] 00:00:00 00:00:[address] 2020-02-11 2020-02-11 Outpatient EMELY DOAN [facility] [id number] [place] 00:00:00 00:00:[address] 2020-02-04 2020-02-04 Outpatient JOSE ARMANDO [facility] [id number] 515 [place] 00:00:00 00:00:00 RICHARD [address] 2020-01-20 2020-01-25 Inpatient SAWANT, [facility] 064 [id number] 86 [place] 00:00:00 00:00:00 AMITKUMAR [address] 2020-01-12 2020-01-12 Outpatient CHEN, MAIRA [facility] [id number] [place] 00:00:00 00:00:[address] 2019-12-31 2019-12-31 Outpatient EMELY DOAN [facility] [id number] 751 [place] 00:00:00 00:00:[address] 2019-12-31 2019-12-31 Outpatient EMELY DOAN [facility] [id number] 617 [place] 00:00:00 00:00:[address] 2019-12-27 2019-12-27 Outpatient TRISHA [facility] [id number] 450 [place] 00:00:00 00:00:00 TRISHA [address] 2019-12-17 2019-12-18 Outpatient BRITTANY, [facility] [id number] 361 [place] 00:00:00 00:00:00 MERCY [address] 2019-11-18 2019-11-18 Outpatient KELVIN, [facility] [id number] 293 [place] 00:00:00 00:00:00 MAHWASH [address] 2019-11-04 2019-11-04 Outpatient JOSE ARMANDO, [facility] [id number] 930 [place] 00:00:00 00:00:00 RICHARD [address] 2019-10-19 2019-10-19 Outpatient JOSE ARMANDO, [facility] [id number] [place] 00:00:00 00:00:00 RICHARD [address] 2019-09-17 2019-09-17 Outpatient EMELY DOAN [facility] [id number] 175 [place] 00:00:00 00:00:[address] 2019-09-02 2019-09-09 Inpatient AIXA, [facility] 060 [id number] 04 [place] 00:00:00 00:00:00 PAULY [address] Results Test Description Test Time Test Comments Results Result Comments Source BLOOD CULTURE 2021-09-28 10:00:39 Test Item Value Reference Range Interpretation Comme nts CULTURE (BEAKER) (test code = 1095) No growth in 5 days BLOOD [id number] 10:00:38 Test Item Value Reference Range Interpretation Comments CULTURE (BEAKER) (test No growth in 5 days code = 1095) [id number] 08:17:33 Test Item Value Reference Range Interpretation Comments MAGNESIUM (BEAKER) 1.8 mg/dL 1.5-3.0 Specimen slightly (test code = 627) hemolyzed Coding Auditor ID - DSENSONOperator ID - DSENSONOperator ID - DSENSONOperator ID - DSENSONBASIC METABOLIC [id number] 05:35:07 Test Item Value Reference Range Interpretation [...] S NOT APPLICABLE FOR DIALYSIS PATIEN TS. Coding Auditor ID - [id number] ID - [id number] ID - [id number] ID - ZXPD60Vlijybxy ID - FSOS18Goyhwcym ID - ELED05Grmqqrbw ID - MMLQ63Dhuhoqeo ID - MHWA69Wpcrlawh ID - PPPL81Wucdlgrs ID - ITPZ92Sevkxekw ID - FRSX10Mdbykfwa ID - OUNR39Hpcgywxt ID - [id number] W/PLT COUNT & AUTO [id number] 05:04:38 Test Item Value Reference Range Interpretation [...] PERCENT (BEAKER) (test code = 2801) POCT-GLUCOSE [id number] 04:47:27 Test Item Value Reference Range Interpretation Comments POC-GLUCOSE METER 98 mg/dL 70-110 : TESTED A T [facility] 1317 (BEAKER) (test code = [address], 15[address]) [facility] 77 478: Coding Auditor/Techni kate ID = [id number] for Michelle Knight POCT-GLUCOSE [id number] 23:00:37 Test Item Value Reference Range Interpretation Comments POC-GLUCOSE METER 100 mg/dL 70-110 : TESTED A T [facility] [address] (BEAKER) (test code [address], = 1538) [place] [address] 478: Coding Auditor/Techni kate ID = [id number] for Michelle Knight POCT-GLUCOSE [id number] 15:20:37 Test Item Value Reference Range Interpretation Comments POC-GLUCOSE METER 126 mg/dL 70-110 H : TESTED A T [facility] [address] (BEAKER) (test code [address], = 1538) [place] [address]998: Coding Auditor/Techni kate ID = [id number] for Will iams, Caro POCT-GLUCOSE [id number] 11:52:27 Test Item Value Reference Range Interpretation Comments POC-GLUCOSE METER 94 mg/dL 70-110 : TESTED A T [facility] [address]17 (BEAKER) (test code = [address], 1538) [place] [address]: Coding Auditor/Techni kate ID = [id number] for Will iams, Caro POCT-GLUCOSE [id number] 06:47:47 Test Item Value Reference Range Interpretation Comments POC-GLUCOSE METER 92 mg/dL 70-110 : TESTED A T [facility] [address] (BEAKER) (test code = [address], 1538) [place] [address] 478: Coding Auditor/Techni kate ID = [id number] for Bridget Salas BASIC METABOLIC [id number] 05:34:54 Test Item Value Reference Range Interpretation [...] S NOT APPLICABLE FOR DIALYSIS PATIEN TS. Coding Auditor ID - NSUVAGIYAOperator ID - NSUVAGIYAOperator ID - NSUVAGIYAOperator ID - NSUVAGIYAOperatorID - NSUVAGIYAOperator ID - NSUVAGIYAOperator ID - NSUVAGIYAOperator ID - NSUVAGIYAOperator ID - NSUVAGIYAOperator ID - NSUVAGIYAOperator ID - NSUVAGIYAOperator ID - NSUVAGIYAOperator ID - NSUVAGIYA CBC W/PLT COUNT & AUTO [id number] 05:03:55 Test Item Value Reference Range Interpretation [...] PERCENT (BEAKER) (test code = 2801) POCT-GLUCOSE [id number] 21:46:46 Test Item Value Reference Range Interpretation Comments POC-GLUCOSE METER 163 mg/dL 70-110 H : TESTED A T [facility] 1317 ([facility]) (test code [facility], = 1538) [place] [address]: Coding Auditor/Techni kate ID = [id number] for Ben buckley Mal[place] POCT-GLUCOSE [id number] 17:12:16 Test Item Value Reference Range Interpretation Comments POC-GLUCOSE METER 132 mg/dL 70-110 H : Notified RN/MD: [facility] (test code AT [facility] [address] = 1538) [place] [address]: Coding Auditor/Techni kate ID = [id number] for Laws on, Latishia POCT-GLUCOSE [id number] 11:09:45 Test Item Value Reference Range Interpretation Comments POC-GLUCOSE METER 128 mg/dL 70-110 H : Notified RN/MD: TESTED ([facility]) (test code AT [facility] [address] = 1538) [place] [address]: Coding Auditor/Techni kate ID = [id number] for Laws on, [place] BASIC METABOLIC [id number] 10:11:46 Test Item Value Reference Range Interpretation [...] m DATA TO CALCULA TE ESTIMATED GFR. Coding Auditor ID - [id number] ID - [id number] ID - [id number] ID - [id number] ID - MNFNN428Opcqugnm ID - IWPDW950Ctxzjdxe ID - OENAP318Plrofmic ID - [id number] ID - WXHNV042Szkrdvbr ID - [id number] 10:09:12 Test Item Value Reference Range Interpretation Comments MAGNESIUM (BEAKER) (test code = 2.0 mg/dL 1.5-3.0 627) Coding Auditor ID - [id number] ID - [id number] ID - [id number] ID - [id number] W/PLT COUNT & AUTO [id number] 09:35:09 Test Item Value Reference Range Interpretation [...] PERCENT (BEAKER) (test code = 2801) POCT-GLUCOSE [id number] 06:09:14 Test Item Value Reference Range Interpretation Comments POC-GLUCOSE METER 84 mg/dL 70-110 : TESTED A T [facility] 1317 (BEAKER) (test code = [address], 1538) [facility] 77 478: Coding Auditor/Techni kaet ID = [id number] for Michelle Knight POCT-GLUCOSE [id number] 21:48:15 Test Item Value Reference Range Interpretation Comments POC-GLUCOSE METER 122 mg/dL 70-110 H : TESTED A T [facility] 1317 (BEAKER) (test code [address], = 1538) [place] [address] 478: Coding Auditor/Techni kate ID = [id number] for Bridget Salas POCT-GLUCOSE [id number] 17:30:56 Test Item Value Reference Range Interpretation Comments POC-GLUCOSE METER 78 mg/dL 70-110 : TESTED A T [facility] 1317 (BEAKER) (test code = [address], 1538) [place] [address]: Coding Auditor/Techni kate ID = [id number] for Beka Adorno POCT-GLUCOSE [id number] 11:52:53 Test Item Value Reference Range Interpretation Comments POC-GLUCOSE METER 72 mg/dL 70-110 : TESTED A T [facility] [address]17 (BEAKER) (test code = [address], 1538) [place] [address]: Coding Auditor/Techni kate ID = [id number] for Beka Adorno HEPATIC FUNCTION [id number] 06:59:28 Test Item Value Reference Range Interpretation [...] Specimen slightly (test code = 347) hemolyzed Coding Auditor ID - [id number] ID - mkih28Umrxfpvs ID - eojf53Adqetgpw ID - vhxk11Jhapdrwx ID - wluk32Mtnysbol ID - jhts20Mdjtnbmh ID - ijjh14Flleiwrh ID - nbwu33Odanjbhj ID - xzxl90Sxpyavaf ID - [id number] METABOLIC [id number] 06:56:05 Test Item Value Reference Range Interpretation [...] m DATA TO CALCULA TE ESTIMATED GFR. Coding Auditor ID - [id number] ID - yvyd28Rupextti ID - rabh52Oxzontwr ID - uatg28Eigeitqf ID - ygty11Qxoesnxk ID - yxao40Ftqzapml ID - weuf08Juuegotz ID - wpfd38Kfrcinjh ID - sxem25Lgcsdipe ID - ullw49DGV W/PLT COUNT & AUTO [id number] 06:40:28 Test Item Value Reference Range Interpretation [...] PERCENT (BEAKER) (test code = 2801) POCT-GLUCOSE [id number] 05:32:55 Test Item Value Reference Range Interpretation Comments POC-GLUCOSE METER 89 mg/dL 70-110 : Notified RN/MD: TESTED (BEAKER) (test code = AT [facility] [address]) [facility] [address]: Coding Auditor/Techni kate ID = [id number] for Maribeth Dickson POCT-GLUCOSE [id number] 17:11:16 Test Item Value Reference Range Interpretation Comments POC-GLUCOSE METER 124 mg/dL 70-110 H : Notified RN/MD: TESTED (BEAKER) (test code AT [facility] [address] = 1538) [facility] [address]: Coding Auditor/Techni kate ID = [id number] for Dariel Kayleigh corneliusita POCT-GLUCOSE [id number] 11:57:49 Test Item Value Reference Range Interpretation Comments POC-GLUCOSE METER 164 mg/dL 70-110 H : Notified RN/MD: TESTED (BEAKER) (test code AT [facility] [address] = 1538) [place] [id number]: Coding Auditor/Techni kate ID = [id number] for Dariel h, Lorita BASIC METABOLIC [id number] 05:37:52 Test Item Value Reference Range Interpretation [...] m DATA TO CALCULA TE ESTIMATED GFR. Coding Auditor ID - LITOOperator ID - LITOOperator ID - LITOOperator ID - LITOOperator ID - LITOOperator ID - LITOOperator ID - LITOOperator ID - LITOOperator ID - LITOOperator ID - LITOHEPATIC FUNCTION [id number] 05:33:43 Test Item Value Reference Range Interpretation [...] Specimen slightly (test code = 347) hemolyzed Coding Auditor ID - LITOOperator ID - LITOOperator ID - LITOOperator ID - LITOOperator ID - LITOOperator ID - LITOOperator ID - LITOOperator ID - LITOOperator ID - LITOOperator ID - LITOCBC W/PLT COUNT & AUTO [id number] 05:31:08 Test Item Value Reference Range Interpretation [...] (BEAKER) (test code = 2801) HEMOGLOBIN AND [id number] 22:35:07 Test Item Value Reference Range Interpretation Comments HEMOGLOBIN (BEAKER) (test code = 8.2 GM/DL 13.0-16.8 L 410) HEMATOCRIT (BEAKER) (test code = 26.1 % 36.0-50.0 L 411) POCT-GLUCOSE [id number] 21:10:24 Test Item Value Reference Range Interpretation Comments POC-GLUCOSE METER 158 mg/dL 70-110 H : Notified RN/MD: TESTED (BEAKER) (test code AT [facility] [address] = 1538) [facility] [id number]: Coding Auditor/Techni kate ID = [id number] for Prov ostAneudya U/S, RENAL, [id number] 18:57:00Reason for exam:->elevated Cr [facility] 1935 Sex: MFINAL [...] MDReport Verified Date/Time: 09/23/2021 18:57:43 HEMOGLOBIN AND [id number] 18:02:18 Test Item Value Reference Range Interpretation Comments HEMOGLOBIN (BEAKER) (test code = 9.4 GM/DL 13.0-16.8 L 410) HEMATOCRIT (BEAKER) (test code = 29.9 % 36.0-50.0 L 411) TROPONIN [id number] 17:56:55 Test Item Value Reference Range Interpretation [...] failure, acidosis, acute neurological disease, and persistent tachyarrhythmia.Coding Auditor ID - [id number]-GLUCOSE METER 2021-09-23 17:52:16 Test Item Value Reference Range Interpretation Comments POC-GLUCOSE METER 118 mg/dL 70-110 H : TESTED A T [facility] [address] (BEAKER) (test code [address], = 1538) [place] [id number]: Coding Auditor/Techni kate ID = [id number] for Sarah Teran POCT-GLUCOSE [id number] 11:32:42 Test Item Value Reference Range Interpretation Comments POC-GLUCOSE METER 131 mg/dL 70-110 H : TESTED A T [facility] [address] (BEAKER) (test code [address], = 1538) [place] [id number]: Coding Auditor/Techni kate ID = [id number] for Selene Tinajero TROPONIN [id number] 10:57:24 Test Item Value Reference Range Interpretation [...] failure, acidosis, acute neurological disease, and persistent tachyarrhythmia.Coding Auditor ID - [id number] AND [id number] 10:50:03 Test Item Value Reference Range Interpretation Comments HEMOGLOBIN (BEAKER) (test code = 9.1 GM/DL 13.0-16.8 L 410) HEMATOCRIT (BEAKER) (test code = 28.9 % 36.0-50.0 L 411) URINALYSIS W/ REFLEX URINE [id number] 07:28:56 Test Item Value Reference Range Interpretation [...] 1663) SOURCE(BEAKER) (test code = 2795) TROPONIN [id number] 06:35:09 Test Item Value Reference Range Interpretation [...] failure, acidosis, acute neurological disease, and persistent tachyarrhythmia.Coding Auditor ID - [id number] 2021-09-23 05:13:31 Test Item Value Reference Range Interpretation Comments HEMOGLOBIN A1C (BEAKER) (test code = 5.7 % 4.3-6.1 368) Coding Auditor ID - [id number], CHEST, 1 VIEW, NON [id number] 04:38:00Reason for exam:->baselineShould this be performed at the bedside?->Yes [facility]ENTER[facility]: MARCELA ALCARAZ : 1935 [...] MDReport Verified Date/Time: 09/23/2021 04:38:32 BASIC METABOLIC [id number] 04:34:59 Test Item Value Reference Range Interpretation [...] m DATA TO CALCULA TE ESTIMATED GFR. Coding Auditor ID - [id number] ID - [id number] ID - [id number] ID - [id number] ID - [id number] ID - [id number] ID - [id number] ID - [id number] ID - VKHI89Fnjladmi ID - [id number] 04:32:57 Test Item Value Reference Range Interpretation Comments MAGNESIUM (BEAKER) 2.2 mg/dL 1.5-3.0 Specimen slightly (test code = 627) hemolyzed Coding Auditor ID - [id number] ID - [id number] ID - [id number] ID - [id number] HEPATIC FUNCTION [id number] 04:32:57 Test Item Value Reference Range Interpretation [...] Specimen slightly (test code = 347) hemolyzed Coding Auditor ID - [id number] ID - [id number] ID - [id number] ID - [id number] ID - [id number] ID - [id number] ID - [id number] 2021-09-23 04:29:39 Test Item Value Reference Range Interpretation Comments PHOSPHORUS (BEAKER) 4.3 mg/dL 2.5-4.5 Specimen slightly (test code = 604) hemolyzed Coding Auditor ID - [id number] 04:25:54 Test Item Value Reference Range Interpretation Comments PROTIME (BEAKER) 12.6 seconds 9.3-12.0 H Final Infor mation (test code = 759) (Auto Outp ut) INR (BEAKER) (test 1.16 See_Comment Final Inf ormation code = 370) (Auto Output) [Automated mess age] The system [employer] generated this result transmitted ref erence range: [...] PERCENT (BEAKER) (test code = 2801) POCT-GLUCOSE [id number] 03:44:38 Test Item Value Reference Range Interpretation Comments POC-GLUCOSE METER 167 mg/dL 70-110 H : TESTED A T [facility] (BEAKER) ([facility] = 1538) [place] [id number]: Coding Auditor/Techni akte ID = [id number] for Lashaun lindo Ahsan POCT-GLUCOSE [id number] 03:27:46 Test Item Value Reference Range Interpretation Comments POC-GLUCOSE METER 164 mg/dL 70-110 H : TESTED A T [facility] [address] (BEAKER) (test code [address], = 1538) [place] [id number]: Coding Auditor/Techni kate ID = [id number] for Kirk Healy SARS-CoV-2 (COVID-19) RNA [Presence] in Respiratory specimen by ANDREW with probe [id number] 11:35:00 Test Item Value Reference Range Interpretation Comments 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 (test code = 79063-4) Whether the patient was admitted to intensive care unit (ICU) for condition of interest (test code = 92138-4) SARS-CoV-2 (COVID-19) RNA [Presence] in Respiratory specimen by ANDREW with probe [id number] 00:24:51 Test Item Value Reference Range Interpretation Comments SARS-CoV-2 (COVID-19) RNA Not detected Not-Detected [Presence] in Respiratory specimen by ANDREW with probe detection (test code = 85098-3) SARS-CoV-2 (COVID-19) RNA [Presence] in Respiratory specimen by ANDREW with probe [id number] 23:06:04 Test Item Value Reference Range Interpretation Comments SARS-CoV-2 (COVID-19) RNA Not detected Not-Detected [Presence] in Respiratory specimen by ANDREW with probe detection (test code = 43383-3) SARS-CoV-2 (COVID-19) RNA [Presence] in Respiratory specimen by ANDREW with probe [id number] 19:57:13 Test Item Value Reference Range Interpretation Comments SARS-CoV-2 (COVID-19) RNA Not detected Not-Detected [Presence] in Respiratory specimen by ANDREW with probe detection (test code = 85156-6) SARS-CoV-2 (COVID-19) RNA [Presence] in Respiratory specimen by ANDREW with probe [id number] 23:40:00 Test Item Value Reference Range Interpretation Comments SARS-CoV-2 (COVID-19) RNA Not detected Not-Detected [Presence] in Respiratory specimen by ANDREW with probe detection (test code = 34107-4) SARS-CoV-2 (COVID-19) RNA [Presence] in Respiratory specimen by ANDREW with probe [id number] 22:07:46 Test Item Value Reference Range Interpretation Comments SARS-CoV-2 (COVID-19) RNA Not detected Not-Detected [Presence] in Respiratory specimen by ANDREW with probe detection (test code = 04339-5) SARS-CoV-2 (COVID-19) RNA [Presence] in Respiratory specimen by ANDREW with probe [id number] 21:47:42 Test Item Value Reference Range Interpretation Comments SARS-CoV-2 (COVID-19) RNA Not detected Not-Detected [Presence] in Respiratory specimen by ANDREW with probe detection (test code = 78935-8) SARS-CoV-2 (COVID-19) RNA [Presence] in Respiratory specimen by ANDREW with probe [id number] 14:31:58 Test Item Value Reference Range Interpretation Comments SARS-CoV-2 (COVID-19) RNA Not detected Not-Detected [Presence] in Respiratory specimen by ANDREW with probe detection (test code = 33708-9)
[2021-12-02 18:34] LABS: Absolute Lymphocytes (CBC) 1.8 K/uL (0.7-4.9); Hematocrit 32.9 % (39.6-49.0); Lymphocytes % 23.6 % (15.3-44.8); MPV 7.5 fL (7.6-11.3); RBC Red Blood Cell Count 4.01 M/uL (4.33-5.43)
--- NOTE | 2021-12-02 18:51 | RAD REPORT ---
EXAM DESCRIPTION: RAD - Chest Single View - 12/02/2021 6:41 pm CLINICAL HISTORY: SOB Chest pain. COMPARISON: Chest Single View dated 11/26/2021; Chest Single View dated 10/25/2021; Chest Single View dated 10/18/2021; Abdomen 1 View (KUB) dated 08/14/2021; Chest Pa And Lat (2 Views) dated 02/08/2016 FINDINGS: Portable technique limits examination quality. Opacities present in the right lung base which may represent infiltrate/ developing pneumonia. The anna ngs are otherwise clear. The heart is mildly enlarged with changes of a prior CABG noted.Multi lead p acer/defibrillator device is present. IMPRESSION: Suspected developing right lung base pneumonia.
[2021-12-02 19:02] LABS: Albumin 2.9 g/dL (3.4-5.0); Bilirubin Direct 0.2 mg/dL (0-0.2); Bilirubin Total 0.6 mg/dL (0.2-1.0); Magnesium 2.3 mg/dL (1.8-2.4); Potassium 3.4 mmol/L (3.5-5.1); Troponin High Sensitivity 19.9 pg/mL (<58.9)
--- NOTE | 2021-12-02 19:31 | RAD REPORT ---
EXAM DESCRIPTION: CT - Abdomen Pelvis Wo Contrast - 12/02/2021 7:20 pm CLINICAL HISTORY: Abdominal pain. Epigastric pain COMPARISON: Abdomen Pelvis Wo Contrast dated 09/22/2021 TECHNIQUE: CT imaging of the abdomen and pelvis was performed without contrast. Solid organ, bowel a nd vascular assessment is limited due to lack of IV and oral contrast. All CT scans are performed using dose optimization technique as appropriate and may include automated exposure control or mA/KV adjustment according to patient size. FINDINGS: Small bilateral pleural effusions with atelectasis versus infiltrate in the right lung bas e. The liver, spleen, pancreas, and kidneys are within normal limits for a limited non-contrast examinat ion. 4 cm right renal cyst. 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 Cholecyste ctomy clips. No bowel obstruction, free air, free fluid or abscess. The appendix is not identified as a discrete structure, however, no secondary findings of appendicitis are identified. Mild lumbosacral degenerative changes. IMPRESSION: Right lung base a developing infiltrate with small bilateral pleural effusions. No acute intra- abdominal or intrapelvic finding. A limited non-contrast examination was performed as detailed.
--- NOTE | 2021-12-02 19:58 | EDPHYS ---
Physician Documentation [facility] Name: Gilmer Mercado Age: 86 yrs Sex: Male : 1935 Arrival Date: 12/02/2021 Time: 17:47 Bed 17 Private MD: ED Physician Alexander العراقي HPI: 12/02 18:01 This 86 yrs old Male presents to ER via EMS with complaints of Shortness of breath and pm1 abdominal pain. 18:01 The patient has shortness of breath at rest. Onset: The symptoms/episode began/occurred pm1 3 day(s) ago, with a cough. Duration: The symptoms are continuous. The patient's shortness of breath is aggravated by nothing, is alleviated by nothing, has been taking cough medications at detention without improvement. Associated signs and symptoms: Pertinent positives: productive cough, Abdominal pain, Pertinent negatives: chest pain, fever, nausea, vomiting, diarrhea. Severity of symptoms: in the emergency department the symptoms are worse. The patient has not recently seen a physician. Historical: - Allergies: 17:50 No Known Allergies; bp - Home Meds: 17:50 allopurinol 100 mg Oral tab [Active]; amiodarone 200 mg Oral tab 1 tab once daily bp [Active]; calcitrol [Active]; Eliquis 2.5 mg Oral tab 1 tab 2 times per day [Active]; finasteride 5 mg Oral tab 1 tab once daily [Active]; furosemide 40 mg Oral tab 1 tab once daily [Active]; Toprol XL 25 mg Oral Tb24 1 tab twice a day [Active]; tamsulosin 0.4 mg Oral cp24 1 cap once daily [Active]; simvastatin 20 mg Oral tab 1 tab once daily [Active]; ranitidine HCl 150 mg Oral tab [Active]; levothyroxine oral 350 mcg tablet daily [Active]; Humulin R 100 unit/mL soln 500 mL 10-20 units daily [Active]; gabapentin 300 mg Oral cap 2 caps twice a day [Active]; - PMHx: 17:50 BPH; Diabetes - IDDM; High Cholesterol; Hypertension; Pacemaker; PNUEMONIA; Alzheimer's bp disease; - PSHx: 17:50 CABG; pacemaker; bp - Immunization history:: Adult Immunizations up to date, Client reports receiving the 2nd dose of the Covid vaccine. - Social history:: Smoking status: Patient denies any tobacco usage or history of. ROS: 18:01 Constitutional: Negative for fever, chills, and weight loss, Cardiovascular: Negative pm1 for chest pain, palpitations, and edema. 18:01 Back: Negative for injury and pain, MS/Extremity: Negative for injury and deformity, Skin: Negative for injury, rash, and discoloration, Neuro: Negative for headache, weakness, numbness, tingling, and seizure. 18:01 Respiratory: Positive for cough, "sounds productive", shortness of breath. 18:01 Abdomen/GI: Positive for abdominal pain, of the right lower quadrant, Negative for nausea, vomiting, and diarrhea. 18:01 All other systems are negative. Exam: 18:01 Constitutional: This is a well developed, well nourished patient who is awake, alert, pm1 and in no acute distress. Head/Face: Normocephalic, atraumatic. 18:01 Back: No spinal tenderness. No costovertebral tenderness. Full range of motion. Skin: Warm, dry with normal turgor. Normal color with no rashes, no lesions, and no evidence of cellulitis. MS/ Extremity: Pulses equal, no cyanosis. Neurovascular intact. Full, normal range of motion. 18:01 Cardiovascular: Exam negative for acute changes, Rate: normal, Rhythm: regular, Pulses: no pulse deficits are appreciated, Heart sounds: normal, normal S1and S2. 18:01 Respiratory: the patient does not display signs of respiratory distress, Breath sounds: bronchial sounds, are heard diffusely. 18:01 Abdomen/GI: Inspection: abdomen appears normal, Palpation: soft, in all quadrants, mild abdominal tenderness, in the right lower quadrant. 18:01 Neuro: Exam negative for acute changes, Orientation: is normal, Mentation: is normal, Motor: is normal, moves all fours. Vital Signs: 17:48 BP 138 / 78; Pulse 75; Resp 16; Temp 97.5; Pulse Ox 98% ; bp 18:41 BP 133 / 70; Pulse 72; Resp 18; Pulse Ox 100% ; jh6 19:45 BP 104 / 80; Pulse 70; Resp 16; Pulse Ox 100% on 2 lpm NC; sm5 20:45 BP 110 / 55; Pulse 70; Resp 14; Pulse Ox 100% on 2 lpm NC; sm5 22:15 BP 105 / 55; Pulse 70; Resp 14; Pulse Ox 100% on 2 lpm NC; sm5 MDM: 17:50 Patient medically screened. pm1 19:47 Data reviewed: vital signs. Data interpreted: Pulse oximetry: on room air is 100 %. pm1 Interpretation: normal. 19:53 Counseling: I had a detailed discussion with the patient and/or guardian regarding: the pm1 historical points, exam findings, and any diagnostic results supporting the discharge/admit diagnosis, lab results, radiology results, the need for further work-up and treatment in the hospital, Calculate curb-65 and PSI score recommend admission. 12/02 17:59 Order name: Basic Metabolic Panel; Complete Time: 19:05 pm1 12/02 17:59 Order name: CBC with Diff; Complete Time: 18:41 pm1 12/02 17:59 Order name: LFT's; Complete Time: 19:05 pm1 12/02 17:59 Order name: Magnesium; Complete Time: 19:05 pm1 12/02 17:59 Order name: NT PRO-BNP; Complete Time: 19:05 pm1 12/02 17:59 Order name: PT-INR; Complete Time: 18:43 pm1 12/02 17:59 Order name: Troponin HS; Complete Time: 19:05 pm1 12/02 17:59 Order name: XRAY Chest (1 view); Complete Time: 19:04 pm1 12/02 17:59 Order name: Flu; Complete Time: 19:04 pm1 12/02 17:59 Order name: COVID-19 SARS RT PCR (Document "Date of Onset" if Symptomatic); Complete pm1 Time: 19:24 12/02 18:00 Order name: CT Abd/Pelvis - IV Contrast Only pm1 12/02 19:06 Order name: Blood Culture Adult (2) pm1 12/02 19:55 Order name: Glucose, Ancillary Testing; Complete Time: 19:57 EDMS 12/02 17:59 Order name: EKG; Complete Time: 18:01 pm1 12/02 17:59 Order name: Cardiac monitoring; Complete Time: 21:25 pm1 12/02 17:59 Order name: EKG - Nurse/Tech; Complete Time: 21:25 pm1 12/02 17:59 Order name: IV Saline Lock; Complete Time: 21:25 pm1 12/02 17:59 Order name: Labs collected and sent; Complete Time: 21:25 pm1 12/02 17:59 Order name: O2 Per Protocol; Complete Time: 21:25 pm1 12/02 17:59 Order name: O2 Sat Monitoring; Complete Time: 21:25 pm1 12/02 19:08 Order name: Abdomen ; Complete Time: 19:44 EDMS 12/02 19:13 Order name: Accucheck; Complete Time: 19:42 dh3 12/02 19:45 Order name: Diet Regular; Complete Time: 19:46 pm1 Administered Medications: 19:34 Not Given (Other Intervention Used): D50W 50 ml IVP once; (1 amp) sm5 19:36 Drug: D5W 500 ml Route: IV; Rate: bolus; Site: left forearm; sm5 19:42 Follow up: Response: Blood sugar is elevated; IV Status: Completed infusion; IV Intake: sm5 500ml 19:49 CANCELLED (Physician Discretion): LevaQUIN (levofloxacin) 250 mg 50 ml IVPB once over pm1 60 mins 20:34 Drug: LevaQUIN (levofloxacin) 750 mg Volume: 150 ml; Route: IVPB; Infused Over: 90 sm5 mins; Site: left forearm; 22:02 Follow up: IV Status: Completed infusion; IV Intake: 150ml sm5 Disposition Summary: 12/02/21 19:57 Hospitalization Ordered Hospitalization Status: Inpatient Admission pm1 Provider: Layla Parks 1 [facility] Condition: Stable pm1 Problem: new pm1 Symptoms: have improved pm1 Bed/Room Type: Standard pm1 Room Assignment: 213(12/02/21 20:53) Diagnosis - Pneumonia, unspecified organism pm1 Forms: - Medication Reconciliation Form pm1 - SBAR form pm1 Addendum: 12/15/2021 07:08 Co-signature as Attending Physician, Alexander العرقاي MD I agree with the assessment and k dr plan of care. Signatures: Dispatcher [employer] EDAlexander Rodriguez MD MD kdr Garcia, Cindy, RN RN cg Naldo Crouch, READING ASSISTANT READING ASSISTANT pm1 Beatris Husain [facility] Chris Calderon RN RN bp Ni Kumari RN RN sm5 Corrections: (The following items were deleted from the chart) 12/02 19:08 18:05 Abdomen ordered. EDMS EDMS 19:49 19:24 LevaQUIN (levofloxacin) 250 mg 50 ml IVPB once over 60 mins ordered. pm1 pm1 20:53 19:57 pm1 cg
--- NOTE | 2021-12-02 19:58 | ER ---
Nurse's Notes [facility] Name: Gilmer Mercado Age: 86 yrs Sex: Male : 1935 Arrival Date: 12/02/2021 Time: 17:47 Bed 17 Private MD: Diagnosis: Pneumonia, unspecified organism Presentation: 12/02 17:48 Chief complaint: EMS states: SENT FROM [facility] FOR SICK CALL, PT C/O bp INDIGESTION. Coronavirus screen: At this time, the client does not indicate any symptoms associated with coronavirus-19. Ebola Screen: No symptoms or risks identified at this time. Initial Sepsis Screen: Does the patient meet any 2 criteria? No. Patient's initial sepsis screen is negative. Does the patient have a suspected source of infection? No. Patient's initial sepsis screen is negative. Risk Assessment: Do you want to hurt yourself or someone else? Patient reports no desire to harm self or others. Onset of symptoms is unknown. Care prior to arrival: Glucose check: 79. 17:48 Method Of Arrival: EMS: [facility] bp 17:48 Acuity: VIN 4 bp 17:58 Acuity: VIN 3 iw Triage Assessment: 17:50 General: Appears in no apparent distress. comfortable, Behavior is calm, cooperative. bp Pain: Unable to use pain scale. Does not appear to understand pain scale. EENT: No deficits noted. Neuro: Level of Consciousness is awake, alert, Oriented to person, place. Cardiovascular: No deficits noted. Respiratory: No deficits noted. GI: Reports lower abdominal pain, upper abdominal pain. : No deficits noted. Derm: No deficits noted. Musculoskeletal: No deficits noted. Historical: - Allergies: 17:50 No Known Allergies; bp - Home Meds: 17:50 allopurinol 100 mg Oral tab [Active]; amiodarone 200 mg Oral tab 1 tab once daily bp [Active]; calcitrol [Active]; Eliquis 2.5 mg Oral tab 1 tab 2 times per day [Active]; finasteride 5 mg Oral tab 1 tab once daily [Active]; furosemide 40 mg Oral tab 1 tab once daily [Active]; Toprol XL 25 mg Oral Tb24 1 tab twice a day [Active]; tamsulosin 0.4 mg Oral cp24 1 cap once daily [Active]; simvastatin 20 mg Oral tab 1 tab once daily [Active]; ranitidine HCl 150 mg Oral tab [Active]; levothyroxine oral 350 mcg tablet daily [Active]; Humulin R 100 unit/mL soln 500 mL 10-20 units daily [Active]; gabapentin 300 mg Oral cap 2 caps twice a day [Active]; - PMHx: 17:50 BPH; Diabetes - IDDM; High Cholesterol; Hypertension; Pacemaker; PNUEMONIA; Alzheimer's bp disease; - PSHx: 17:50 CABG; pacemaker; bp - Immunization history:: Adult Immunizations up to date, Client reports receiving the 2nd dose of the Covid vaccine. - Social history:: Smoking status: Patient denies any tobacco usage or history of. Screenin:50 Abuse screen: Denies threats or abuse. Denies injuries from another. Nutritional bp screening: No deficits noted. Tuberculosis screening: No symptoms or risk factors identified. Fall Risk None identified. Assessment: 17:50 General: SEE TRIAGE NOTE. bp 19:27 Reassessment: No changes from previously documented assessment. Patient and/or family 5 updated on plan of care and expected duration. Pain level reassessed. 20:38 Reassessment: No changes from previously documented assessment. sm5 22:32 Reassessment: No changes from previously documented assessment. pt asleep in bed. 5 Vital Signs: 17:48 BP 138 / 78; Pulse 75; Resp 16; Temp 97.5; Pulse Ox 98% ; bp 18:41 BP 133 / 70; Pulse 72; Resp 18; Pulse Ox 100% ; jh6 19:45 BP 104 / 80; Pulse 70; Resp 16; Pulse Ox 100% on 2 lpm NC; sm5 20:45 BP 110 / 55; Pulse 70; Resp 14; Pulse Ox 100% on 2 lpm NC; sm5 22:15 BP 105 / 55; Pulse 70; Resp 14; Pulse Ox 100% on 2 lpm NC; 5 ED Course: 17:47 Patient arrived in ED. bp 17:49 Naldo Crouch NP is PHCP. pm1 17:49 Alexander العراقي MD is Attending Physician. pm1 17:50 Triage completed. bp 17:50 Arm band placed on. bp 18:08 Celsa Santos RN is Primary Nurse. jh6 18:29 Inserted saline lock: 22 gauge in left wrist, using aseptic technique. Blood collected. 6 18:42 XRAY Chest (1 view) In Process Unspecified. EDMS 19:21 Abdomen In Process Unspecified. EDMS 19:21 Primary Nurse role handed off by Celsa Santos RN 19:57 Layla Parks MD is Hospitalizing Provider. pm1 20:03 Ni Kumari, LUCERO is Primary Nurse. sm5 21:26 Patient has correct armband on for positive identification. Placed in gown. Bed in low sm5 position. Call light in reach. Side rails up X2. 22:32 No provider procedures requiring assistance completed. Patient admitted, IV remains in sm5 place. Administered Medications: 19:34 Not Given (Other Intervention Used): D50W 50 ml IVP once; (1 amp) sm5 19:36 Drug: D5W 500 ml Route: IV; Rate: bolus; Site: left forearm; 5 19:42 Follow up: Response: Blood sugar is elevated; IV Status: Completed infusion; IV Intake: sm5 500ml 19:49 CANCELLED (Physician Discretion): LevaQUIN (levofloxacin) 250 mg 50 ml IVPB once over pm1 60 mins 20:34 Drug: LevaQUIN (levofloxacin) 750 mg Volume: 150 ml; Route: IVPB; Infused Over: 90 sm5 mins; Site: left forearm; 22:02 Follow up: IV Status: Completed infusion; IV Intake: 150ml sm5 Medication: 17:50 VIS not applicable for this client. bp Intake: 19:42 IV: 500ml; Total: 500ml. sm5 22:02 IV: 150ml; Total: 650ml. 5 Outcome: 19:57 Decision to Hospitalize by Provider. pm1 22:32 Admitted to Med/surg accompanied by tech, with oxygen, with chart. sm5 22:32 Condition: stable 22:32 Instructed on the need for admit. 22:34 Patient left the ED. 5 Signatures: Dispatcher [employer] EDBarbara Velazquez, Naldo Jiang RN, NP ADVERTISING COORDINATOR pm1 Chris Calderon RN RN bp Botello, Elizabeth Celsa Santos RN RN [facility] Ni Kumari RN RN [facility]
[2021-12-02] MEDS ORDERED: Levofloxacin 750mg IV 750 MG/150 ML BAG IV ONE (20:37)
--- NOTE | 2021-12-02 20:42 | P.HP ---
Certification for Inpatient Patient admitted to: Inpatient With expected LOS: >2 Midnights Patient will require the following post-hospital care: None Practitioner: I am a practitioner with admitting privileges, knowledge of patient current condition, hospital course, and medical plan of care. Services: Services provided to patient in accordance with Admission requirements found in Title 42 Section 412.3 of the Code of Federal Regulations <Zachary Wood - Last Filed: 12/02/21 20:37> Patient History Date of Service: 12/02/21 Reason for admission: Pneumonia History of Present Illness: 86-year-old male history dementia, A. fib on chronic anticoagulation, CHF, CKD 4, DM insulin-dependent presents emergency department for malaise, shortness of breath, cough for the last few days. Patient was evaluated emergency department found to have developing right lung base pneumonia as well as small bilateral pleural effusions acute kidney injury on CKD 4 hyperglycemia with initial glucose of 47 and elevated BNP with pitting edema bilaterally. ED provider wishes to admit for pneumonia, CHF, KORI, hypoglycemia. - Past Medical/Surgical History Diabetic: Yes -: Diabetes mellitus type 2 -: Hypertension -: Hyperlipidemia -: Aortic stenosis requiring percutaneous replacement, December 2015 -: 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 -: Urinary retention -: BPH -: Gout -: Hypothyroidism -: GERD -: Atrial fibrillation -: Thyroidectomy -: CABG x4 vessels -: 2 cardiac stents -: Aortic valve replacement percutaneously -: Cholecystectomy Psychosocial/ Personal History: Currently resides at assisted living facility - Family History Father -: Heart disease Brother -: Heart disease - Social History Smoking Status: Never smoker Alcohol use: No CD- Drugs: No Caffeine use: No Place of Residence: Home <Zachary Wood - Last Filed: 12/02/21 20:37> Date of Service: 12/03/21 <Layla Parks - Last Filed: 12/03/21 18:01> Allergies No Known Allergies Allergy (Verified 10/24/21 07:23) Home Medications: Amiodarone HCl [Cordarone*] 200 mg PO DAILY tab 08/17/21 Donepezil [Aricept*] 10 mg PO BEDTIME tab 08/17/21 Insulin -Regular Human [Novolin -R*] See Protocol SQ ACHS ml 08/17/21 Ondansetron [Zofran (Odt)*] 4 mg PO Q4H PRN tab 08/17/21 Tamsulosin [Flomax*] 0.4 mg PO DAILY cap 08/17/21 Tresiba 40 unit SQ DAILY 08/17/21 icosapent ethyL [Vascepa 1 gm Cap] 1 gm PO BID cap 08/17/21 Albuterol Sulfate [Albuterol Sulfate Hfa] 2 puff IH Q4HR 12/03/21 Apixaban [Eliquis] 2.5 mg PO BID 12/03/21 Brompheniramine/Pseudoephed/Dm [Fvtpvxyr-Gah-Dg 2-30-10 mg/5Ml] 5 ml PO Q4HR PRN 12/03/21 Cefdinir [Cefdinir*] 300 mg PO BID 12/03/21 Cetirizine HCl [Zyrtec*] 5 mg PO DAILY 12/03/21 Clopidogrel Bisulfate [Plavix*] 75 mg PO DAILY 12/03/21 Colesevelam [Welchol*] 625 mg PO BID 12/03/21 Gabapentin 300 mg PO BID 12/03/21 Levothyroxine [Synthroid*] 0.15 mg PO 0600 12/03/21 Pantoprazole [Protonix Tab*] 40 mg PO 0800 12/03/21 Ramelteon 8 mg PO BEDTIME 12/03/21 Torsemide [Demadex] 20 mg PO BID 12/03/21 carvediloL [Carvedilol] 6.25 mg PO BID 12/03/21 methocarbamoL [Methocarbamol] 500 mg PO BEDTIME PRN 12/03/21 Review of Systems 10-point ROS is otherwise unremarkable General: Weakness, Malaise Respiratory: Cough, Shortness of Breath Cardiovascular: Edema <Zachary Wood - Last Filed: 12/02/21 20:37> Physical Examination - Physical Exam General: Alert, In no apparent distress, Oriented x2 HEENT: Atraumatic, PERRLA, Mucous membr. moist/pink, EOMI, Sclerae nonicteric Neck: Supple, 2+ carotid pulse no bruit, No LAD, Without JVD or thyroid abnormality Respiratory: Diminished, Crackles/rales Cardiovascular: Normal S1 S2, Edema (2+ pitting edema bilateral lower extremity), Irregular heart rate/rhythm (A. fib, rate controlled) Capillary refill: <2 Seconds Gastrointestinal: Normal bowel sounds, Soft and benign Musculoskeletal: No tenderness Integumentary: No rashes Neurological: Normal speech, Normal affect Lymphatics: No axilla or inguinal lymphadenopathy - Studies Laboratory Data (last 24 hrs) 12/02/21 18:23: PT 22.3 H, INR 2.00 12/02/21 18:23: WBC 7.7, Hgb 10.3 L, Hct 32.9 L, Plt Count 180 12/02/21 18:23: Sodium 134 L, Potassium 3.4 L, BUN 48 H, Creatinine 2.55 H, Glucose 47 L*, Magnesium 2.3, Total Bilirubin 0.6, AST 15, ALT 19, Alkaline Phosphatase 76 Microbiology Data (last 24 hrs): 12/02/21 18:23 Nasopharnyx Influenza Type A Antigen Screen - Final 12/02/21 18:23 Nasopharnyx Influenza Type B Antigen Screen - Final <Zachary Wood - Last Filed: 12/02/21 20:37> - Studies Laboratory Data (last 24 hrs) 12/02/21 18:23: PT 22.3 H, INR 2.00 12/02/21 18:23: WBC 7.7, Hgb 10.3 L, Hct 32.9 L, Plt Count 180 12/02/21 18:23: Sodium 134 L, Potassium 3.4 L, BUN 48 H, Creatinine 2.55 H, Glucose 47 L*, Magnesium 2.3, Total Bilirubin 0.6, AST 15, ALT 19, Alkaline Phosphatase 76 Microbiology Data (last 24 hrs): 12/02/21 18:23 Nasopharnyx Influenza Type A Antigen Screen - Final 12/02/21 18:23 Nasopharnyx Influenza Type B Antigen Screen - Final <Layla Parks - Last Filed: 12/03/21 18:01> Assessment and Plan - Plan Assessment: Right lower lobe pneumonia Acute on chronic diastolic congestive heart failure Acute kidney injury on CKD 4 Atrial fibrillation on chronic anticoagulation therapy Diabetes mellitus type 2insulin-dependent with hypoglycemia Hypertension Dementia Plan: Right lower lobe pneumonia: Blood cultures were obtained continue antibioticsLevaquin for now continue with incentive spirometry. Also appears overloaded we will continue with IV Lasix and cardiology consult. Acute on chronic diastolic congestive heart failure: Last echocardiogram 08/09/2019 with 50 to 55% EF continue with Lasix IV for diuresis, cardiology and nephrology consults given CHF and CKD 4 with mild worsening. Acute kidney injury on CKD 4: Nephrology consult in place continue diuresis at this time appreciate further input from nephrology Atrial fibrillation on chronic anticoagulation therapy: Continue amiodarone, Eliquis monitor on telemetry Diabetes mellitus type 2insulin-dependent with hypoglycemia: Patient eating at this time takes Lantus at [facility] living will need to monitor sugar closely. Hypertension: Continue home medications Dementia: Continue home medications DVT PPX: Continue eliquis 2.5 BID Code status:Full code Discharge Plan: Home Plan to discharge in: 72 Hours - Advance Directives Does patient have a Living Will: Yes Does patient have a Durable POA for Healthcare: Yes - Code Status/Comfort Care Code Status Assessed: Yes (Full code) Critical Care: No Time Spent Managing Pts Care (In Minutes): 55 <Zachary Wood - Last Filed: 12/02/21 20:37> Date of Service: 12/03/21 Subjective: HPI as mentioned above Physical Examination: Vitals: Afebrile vital signs are stable Physical exam: Cardiovascular: Within normal limits. Lungs: Basilar crackles Abdomen: Within normal limits Neuro: Awake, alert, oriented to person place and time Assessment: 1. CHF Plan: 1. Continue with current plan of care as mentioned above <Layla Parks - Last Filed: 12/03/21 18:01>
[2021-12-02] MEDS ORDERED: ACETAMINOPHEN 500 MG TAB PO PRN (23:32)
[2021-12-02] MEDS: INSULIN -REGULAR HUMAN 50 UNIT/0.5 ML ML SQ SCH (23:32)
[2021-12-02] MEDS ORDERED: Levofloxacin500mg IV 500 MG/100 ML BAG IV SCH (23:32)
[2021-12-02] MEDS: ALBUTEROL 2.5 MG/3 ML NEB SOL NEB PRN (23:45)
[2021-12-03 00:08] VITALS: BMI 30.4
[2021-12-03] MEDS: methocarbamoL 500 MG TAB PO PRN ×2 (00:31→20:50)
[2021-12-03] MEDS: TAMSULOSIN 0.4 MG SR CAP PO SCH ×2 (00:32→20:51)
[2021-12-03] MEDS: carvediloL 6.25 MG TAB PO SCH ×3 (00:32→17:16)
[2021-12-03] MEDS: GABAPENTIN 300 MG CAP PO SCH ×3 (00:32→20:51)
[2021-12-03] MEDS: DONEPEZIL HCL 5 MG TAB PO SCH ×3 (00:32→20:51)
[2021-12-03] MEDS: APIXABAN 2.5 MG TABLET PO SCH ×3 (00:33→20:51)
[2021-12-03] MEDS: BENZONATATE 100 MG CAP PO PRN (01:22)
[2021-12-03 06:15] LABS: Absolute Lymphocytes (CBC) 1.9 K/uL (0.7-4.9); Hematocrit 30.7 % (39.6-49.0); Lymphocytes % 23.2 % (15.3-44.8); MPV 7.6 fL (7.6-11.3); RBC Red Blood Cell Count 3.79 M/uL (4.33-5.43)
[2021-12-03 06:39] LABS: Albumin 2.9 g/dL (3.4-5.0); Bilirubin Total 0.6 mg/dL (0.2-1.0); Magnesium 2.3 mg/dL (1.8-2.4); Potassium 3.4 mmol/L (3.5-5.1); Protein, Total 6.8 g/dL (6.4-8.2)
[2021-12-03] MEDS ORDERED: D5W 500 ML IV SCH (06:52)
[2021-12-03] MEDS ORDERED: D5W 1,000 ML IV ONE (06:52)
[2021-12-03] MEDS: PANTOPRAZOLE 40MG TABLET PO SCH (07:11)
[2021-12-03] MEDS: LEVOTHYROXINE SOD 0.075 MG TAB PO SCH (07:11)
[2021-12-03] MEDS: INSULIN -REGULAR HUMAN 50 UNIT/0.5 ML ML SQ SCH ×4 (07:30→20:51)
--- NOTE | 2021-12-03 08:10 | P.CNS ---
Date of Consult: 12/03/21 Reason for Consult: KORI/ CKD Requesting Physician: Layla Parks Chief Complaint: Pneumonia History of Present Illness: 86-year-old male history dementia, A. fib on chronic anticoagulation, CHF, CKD 4, DM insulin-dependent presents emergency department for malaise, shortness of breath, cough for the last few days. Patient was evaluated emergency department found to have developing right lung base pneumonia as well as small bilateral pleural effusions acute kidney injury on CKD 4 hyperglycemia with initial glucose of 47 and elevated BNP with pitting edema bilaterally. ED provider wishes to admit for pneumonia, CHF, KORI, hypoglycemia. Allergies No Known Allergies Allergy (Verified 10/24/21 07:23) Home medications list reviewed: Yes Home Medications: Amiodarone HCl [Cordarone*] 200 mg PO DAILY tab 08/17/21 Donepezil [Aricept*] 10 mg PO BEDTIME tab 08/17/21 Insulin -Regular Human [Novolin -R*] See Protocol SQ ACHS ml 08/17/21 Ondansetron [Zofran (Odt)*] 4 mg PO Q4H PRN tab 08/17/21 Tamsulosin [Flomax*] 0.4 mg PO DAILY cap 08/17/21 Tresiba 40 unit SQ DAILY 08/17/21 icosapent ethyL [Vascepa 1 gm Cap] 1 gm PO BID cap 08/17/21 Albuterol Sulfate [Albuterol Sulfate Hfa] 2 puff IH Q4HR 12/03/21 Apixaban [Eliquis] 2.5 mg PO BID 12/03/21 Brompheniramine/Pseudoephed/Dm [Ecqocqpx-Rpi-He 2-30-10 mg/5Ml] 5 ml PO Q4HR PRN 12/03/21 Cefdinir [Cefdinir*] 300 mg PO BID 12/03/21 Cetirizine HCl [Zyrtec*] 5 mg PO DAILY 12/03/21 Clopidogrel Bisulfate [Plavix*] 75 mg PO DAILY 12/03/21 Colesevelam [Welchol*] 625 mg PO BID 12/03/21 Gabapentin 300 mg PO BID 12/03/21 Levothyroxine [Synthroid*] 0.15 mg PO 0600 12/03/21 Pantoprazole [Protonix Tab*] 40 mg PO 0800 12/03/21 Ramelteon 8 mg PO BEDTIME 12/03/21 Torsemide [Demadex] 20 mg PO BID 12/03/21 carvediloL [Carvedilol] 6.25 mg PO BID 12/03/21 methocarbamoL [Methocarbamol] 500 mg PO BEDTIME PRN 12/03/21 - Past Medical/Surgical History Diabetic: Yes -: Diabetes mellitus type 2 -: Hypertension -: Hyperlipidemia -: Aortic stenosis requiring percutaneous replacement, December 2015 -: 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 -: Urinary retention -: BPH -: Gout -: Hypothyroidism -: GERD -: Atrial fibrillation -: Thyroidectomy -: CABG x4 vessels -: 2 cardiac stents -: Aortic valve replacement percutaneously -: Cholecystectomy Psychosocial/ Personal History: Currently resides at assisted living facility - Family History Father Medical History: Heart disease Brother Medical History: Heart disease - Social History Smoking Status: Unknown if ever smoked Alcohol use: No CD- Drugs: No Caffeine use: No Place of Residence: Home Review of Systems 10-point ROS is otherwise unremarkable General: Weakness, Malaise Respiratory: SOB with Excertion Cardiovascular: Edema Neurological: Weakness Physical Examination Temp Pulse Resp BP Pulse Ox 97.0 F 70 14 134/65 100 12/03/21 04:00 12/03/21 04:00 12/03/21 04:00 12/03/21 04:00 12/03/21 04:00 General: Oriented x3, Cooperative HEENT: Atraumatic, Mucous membr. moist/pink Neck: Supple Respiratory: Crackles/rales Cardiovascular: Regular rate/rhythm, Edema Gastrointestinal: No guarding, Distended (Tympanic BS) Musculoskeletal: No clubbing, No contractures Integumentary: No rashes, No cyanosis, Other (Toe amputations) Neurological: Normal speech Laboratory Data (last 24 hrs) 12/02/21 18:23: PT 22.3 H, INR 2.00 12/02/21 18:23: WBC 7.7, Hgb 10.3 L, Hct 32.9 L, Plt Count 180 12/02/21 18:23: Sodium 134 L, Potassium 3.4 L, BUN 48 H, Creatinine 2.55 H, Glucose 47 L*, Magnesium 2.3, Total Bilirubin 0.6, AST 15, ALT 19, Alkaline Phosphatase 76 Imagings Data: EXAM DESCRIPTION: CT - Abdomen Pelvis Wo Contrast - 12/02/2021 7:20 pm CLINICAL HISTORY: Abdominal pain. Epigastric pain COMPARISON: Abdomen Pelvis Wo Contrast dated 09/22/2021 TECHNIQUE: CT imaging of the abdomen and pelvis was performed without contrast. Solid organ, bowel and vascular assessment is limited due to lack of IV and oral contrast. All CT scans are performed using dose optimization technique as appropriate and may include automated exposure control or mA/KV adjustment according to patient size. FINDINGS: Small bilateral pleural effusions with atelectasis versus infiltrate in the right lung base. The liver, spleen, pancreas, and kidneys are within normal limits for a limited non-contrast examination. 4 cm right renal cyst. 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 Cholecystectomy clips. No bowel obstruction, free air, free fluid or abscess. The appendix is not identified as a discrete structure, however, no secondary findings of appendicitis are identified. Mild lumbosacral degenerative changes. IMPRESSION: Right lung base a developing infiltrate with small bilateral pleural effusions. No acute intra- abdominal or intrapelvic finding. A limited non-contrast examination was performed as detailed. EXAM DESCRIPTION: RAD - Chest Single View - 12/02/2021 6:41 pm CLINICAL HISTORY: SOB Chest pain. COMPARISON: Chest Single View dated 11/26/2021; Chest Single View dated 10/25/2021; Chest Single View dated 10/18/2021; Abdomen 1 View (KUB) dated 08/14/2021; Chest Pa And Lat (2 Views) dated 02/08/2016 FINDINGS: Portable technique limits examination quality. Opacities present in the right lung base which may represent infiltrate/ developing pneumonia. The lungs are otherwise clear. The heart is mildly enlarged with changes of a prior CABG noted.Multi lead pacer/defibrillator device is present. IMPRESSION: Suspected developing right lung base pneumonia. NORMAL LEFT VENTRICULAR EJECTION FRACTION 50-55%. 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 LEFT ATRIAL ENLARGEMENT. SEVERE DIASTOLIC DYSFUNCTION. 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 SEVERE TRICUSPID REGURGITATION. Conclusions/Impression: KORI likely CRS CKD IV with proteinuria -No NSAIDs -Continue diuresis Hypokalemia -Start Spironolactone -Replete potassium HTN with CKD/ CHF -Continue Coreg Diastolic CHF, A/C Pulmonary HTN Severe TR -Continue Lasix -Start Spironolactone DM II with CKD & Polyneuropathy -RISS -Continue Gabapentin Moderate malnutrition -Encourage nutrition Anemia in chronic illness -Monitor H&H -Check iron status CKD MBD Hypocalcemia -Start Vitamin D BPH with LUTS -Continue Flomax Distended Abd with tympanic BS -Start Colace BID -Lactulose X1 Thank you kindly for the consultation.
[2021-12-03] MEDS: AMIODARONE HCL 200 MG TAB PO SCH (08:59)
[2021-12-03] MEDS: FUROSEMIDE 40 MG/4 ML VIAL IV SCH ×2 (08:59→17:16)
[2021-12-03] MEDS: CLOPIDOGREL 75 MG TABLET PO SCH (08:59)
[2021-12-03] MEDS ORDERED: LACTULOSE 20 GM/30 ML UCUP PO ONE (11:00)
[2021-12-03] MEDS ORDERED: POTASSIUM CL SA 10 MEQ TAB PO ONE (11:00)
[2021-12-03] MEDS: SPIRONOLACTONE 25 MG TABLET PO SCH (11:11)
[2021-12-03] MEDS: ONDANSETRON 4 MG/2 ML VIAL IV PRN (12:32)
--- NOTE | 2021-12-03 18:04 | P.PN ---
Date of Service: 12/03/21 Subjective Patient is doing well with no new complaints. Physical Examination - Vitals Reviewed - Physical Exam General: Alert, In no apparent distress, Oriented x2 Respiratory: Diminished, Crackles/rales Cardiovascular: Normal S1 S2, Edema (2+ pitting edema bilateral lower extremity), Irregular heart rate/rhythm (A. fib, rate controlled) Gastrointestinal: Normal bowel sounds, Soft and benign Neurological: No focal deficits Assessment and Plan - Plan Assessment: Right lower lobe pneumonia Acute on chronic diastolic congestive heart failure Acute kidney injury on CKD 4 Atrial fibrillation on chronic anticoagulation therapy Diabetes mellitus type 2insulin-dependent with hypoglycemia Hypertension Dementia Plan: 1. Continue with IV antibiotics 2. Awaiting sputum and blood culture 3. Repeat chest x-ray 4. CT scan of the chest if pneumonia is not improving- 5. Echocardiogram; gently diurese 6. Continue with nebs as needed 7. O2 per protocol 8. Monitor renal function and continue medication for rate control and anticoagulation 9. Strict blood pressure and blood sugar control 10. GI and DVT prophylaxis - Advance Directives Does patient have a Living Will: Yes Does patient have a Durable POA for Healthcare: Yes - Code Status/Comfort Care Code Status Assessed: Yes (Full code) Critical Care: No Time Spent Managing Pts Care (In Minutes): 55
--- NOTE | 2021-12-03 19:56 | CON ---
Date of Consultation: 12/03/2021 Reason For Consultation: Shortness of breath. History Of Present Illness: An 86-year-old male with history of dementia, chronic atrial fibrillatio n on anticoagulation, congestive heart failure, chronic kidney disease, diabetes, [facility] with generalized shortness of breath. Still has weakened shortness of breath as well as cough for few days and some lower extremity edema. No chest pain, nausea, vomiting, diarrhea, or vom iting. Past Medical History: As outlined above in the HPI including diabetes, hypertension, dyslipidemia, a ortic valve stenosis, coronary artery disease, hypothyroidism, chronic atrial fibrillation. Past Surgical History: Coronary artery bypass graft surgery, aortic valve replacement, cardiac stent placement, cholecystectomy. Medications: Refer reconciliation sheet for detailed list. Allergies: NO KNOWN DRUG ALLERGIES. Family History: No premature coronary artery disease or cancer. Social History: Does not smoke or drink. Does not use any drugs. Review of Systems: All systems reviewed and they were negative except as mentioned in the HPI. Physical Examination: Vital Signs: Reviewed. Head and Neck: Pupils are equal and reactive to light. Intact eye movements. No JVD. No cervical lymphadenopathy. Neck: Supple. Thyroid is not enlarged. Lungs: Rhonchi bilaterally. No accessory muscle use or muscle retraction. Heart: Irregularly irregular. No extra sounds aortic systolic murmur. Abdomen: Soft, nontender. Bowel sounds positive. No organomegaly. No masses or hernia. No rigidi ty or rebound. Extremities: 1+ pitting edema bilaterally. No clubbing, cyanosis. Intact pulses. Skin: No rashes. Neurologic: Alert, awake. No acute focal deficits appreciated. Investigations: Creatinine is 2.4, BUN is 43. White blood cell count 8.2, hemoglobin 10.1. Assessment And Recommendations: 1.Chronic diastolic heart failure, on IV Lasix, appears to be doing better. Continue current regime n and monitor BUN and creatinine closely. We will adjust the dose accordingly. 2.Chronic atrial fibrillation. Continue amiodarone, apixaban, and Coreg. 3.Pneumonia. Continue current antibiotics. SR/MODL Voice ID: [id number] Report ID: [id number]
[2021-12-03] MEDS: DOCUSATE NA 100 MG CAP PO SCH (20:51)
[2021-12-04] MEDS: LEVOTHYROXINE SOD 0.075 MG TAB PO SCH (05:51)
[2021-12-04] MEDS: PANTOPRAZOLE 40MG TABLET PO SCH (05:51)
[2021-12-04 06:24] LABS: Hematocrit 31.3 % (39.6-49.0); Lymphocytes % 31.1 % (15.3-44.8); MPV 7.9 fL (7.6-11.3); RBC Red Blood Cell Count 3.79 M/uL (4.33-5.43)
[2021-12-04 06:58] LABS: Albumin 2.7 g/dL (3.4-5.0); Bilirubin Total 0.6 mg/dL (0.2-1.0); Folic Acid, (Folate) 15.7 ng/mL (3.1-17.5); Magnesium 2.2 mg/dL (1.8-2.4); Phosphorus 3.8 mg/dL (2.5-4.9); Potassium 4.1 mmol/L (3.5-5.1); Protein, Total 6.5 g/dL (6.4-8.2); Uric Acid 13.2 mg/dL (3.5-7.2)
[2021-12-04] MEDS: INSULIN -REGULAR HUMAN 50 UNIT/0.5 ML ML SQ SCH ×4 (07:30→21:16)
[2021-12-04 08:08] LABS: Anisocytosis 1+; Blood Morphology Comment NOTED (NOT SEEN); Platelet Estimate ADEQ; White Blood Cell Scan OK (OK)
[2021-12-04 08:11] LABS: Basophilic Stippling 1+
[2021-12-04] MEDS: DOCUSATE NA 100 MG CAP PO SCH ×2 (09:54→21:13)
[2021-12-04] MEDS: AMIODARONE HCL 200 MG TAB PO SCH (09:54)
[2021-12-04] MEDS: DONEPEZIL HCL 5 MG TAB PO SCH ×2 (09:54→21:14)
[2021-12-04] MEDS: FUROSEMIDE 40 MG/4 ML VIAL IV SCH ×2 (09:54→17:42)
[2021-12-04] MEDS: SPIRONOLACTONE 25 MG TABLET PO SCH (09:55)
[2021-12-04] MEDS: APIXABAN 2.5 MG TABLET PO SCH ×2 (09:55→21:15)
[2021-12-04] MEDS: CALCITROL 0.25 MCG CAP PO SCH (09:55)
[2021-12-04] MEDS: CLOPIDOGREL 75 MG TABLET PO SCH (09:55)
[2021-12-04] MEDS: carvediloL 6.25 MG TAB PO SCH ×2 (09:56→17:42)
[2021-12-04] MEDS: VITAMIN D 5,000 UNIT CAP PO SCH (09:56)
[2021-12-04] MEDS: GABAPENTIN 300 MG CAP PO SCH ×2 (09:56→21:15)
[2021-12-04] MEDS: GLUCERNA SHAKE 237 ML CAN PO SCH ×2 (09:56→21:16)
[2021-12-04] MEDS: JUVEN PACKET PO SCH ×2 (09:57→21:15)
[2021-12-04] MEDS: BENZONATATE 100 MG CAP PO PRN ×2 (10:10→18:54)
[2021-12-04] MEDS: ALBUTEROL 2.5 MG/3 ML NEB SOL NEB PRN (10:12)
--- NOTE | 2021-12-04 13:28 | PN ---
Date of Progress Note: 12/04/2021 Mr. Mercado was admitted to Dr. Parks on 11/24/2021 and has been followed by Dr. Parks for congestive hea rt failure and pneumonia. He has an extensive past medical history including CABG, pacemaker, AVR, C HF, CAD, diabetes, hypertension, dyslipidemia, gout, benign prostatic hypertrophy, atrial fibrillatio n, Alzheimer. He has right basilar pneumonia on the chest x-ray. His last echo in september 2021 showed severe pulmonary hypertension, diastolic congestive heart failure and a patent aortic valve replacem ent. I think he needs to continue amiodarone, Eliquis, and Coreg. Continue diuresis. Continue anti biotics. I think he deserves to be in the hospital another day or 2. We will continue to follow. CIARA/JOLIE Voice ID: [id number] Report ID: [id number]
[2021-12-04 14:34] LABS: Urine Appearance Clear (Clear); Urine Bilirubin Negative (Negative); Urine Blood 2+ (Negative); Urine Color Yellow (Yellow); Urine Glucose Negative (Negative); Urine Protein Negative (Negative); Urine Urobilinogen 0.2 mg/dL (0.2-1.0)
[2021-12-04 14:40] LABS: UR PROTEIN 9.3 mg/dL (<11.9); Urine Protein/Creatinine Ratio 0.29 ratio (<0.15)
[2021-12-04 15:28] LABS: Urine Microscopic Reflex ORDER UMIC
[2021-12-04] MEDS ORDERED: CETIRIZINE HCL 5 MG TABLET PO ONE (15:43)
[2021-12-04 15:58] LABS: Urine Bacteria <20 /HPF (NONE SEEN)
[2021-12-04] MEDS: ONDANSETRON 4 MG/2 ML VIAL IV PRN (16:16)
[2021-12-04] MEDS: MORPHINE 2 MG/ML SYR IV PRN (16:16)
[2021-12-04] MEDS: METHYLPREDNISOLONE 125 MG INJ IV SCH ×2 (17:41→23:58)
--- NOTE | 2021-12-04 20:03 | P.PN ---
Date of Service: 12/04/21 Vital Signs Temp Pulse Resp BP Pulse Ox 96.5 F L 72 16 117/60 94 12/04/21 16:00 12/04/21 17:42 12/04/21 16:46 12/04/21 17:42 12/04/21 16:46 Medications Acetaminophen (Acetaminophen 500 Mg Tab) 500 mg PO Q4HP PRN PRN Reason: Pain scale 2-4 (Mild) Albuterol Sulfate (Albuterol 2.5 Mg/3 Ml Neb Keri) 2.5 mg NEB [id number] PRN PRN Reason: WHEEZING Last Admin: 12/04/21 10:12 Dose: 2.5 mg Documented by: Amiodarone HCl (Amiodarone Hcl 200 Mg Tab) 200 mg PO DAILY [facility] Last Admin: 12/04/21 09:54 Dose: 200 mg Documented by: Apixaban (Apixaban 2.5 Mg Tablet) 2.5 mg PO BID [facility] Last Admin: 12/04/21 09:55 Dose: 2.5 mg Documented by: Benzonatate (Benzonatate 100 Mg Cap) 100 mg PO TID PRN PRN Reason: COUGH Last Admin: 12/04/21 18:54 Dose: 100 mg Documented by: Calcitriol (Calcitrol 0.25 Mcg Cap) 0.5 mcg PO DAILY [facility] Last Admin: 12/04/21 09:55 Dose: 0.5 mcg Documented by: Carvedilol (Carvedilol 6.25 Mg Tab) 6.25 mg PO BIDWM [facility] Last Admin: 12/04/21 17:42 Dose: 6.25 mg Documented by: Cholecalciferol (Vitamin D 5,000 Unit Cap) 5,000 unit PO DAILY [facility] Last Admin: 12/04/21 09:56 Dose: 5,000 unit Documented by: Clopidogrel Bisulfate (Clopidogrel 75 Mg Tablet) 75 mg PO DAILY [facility] Last Admin: 12/04/21 09:55 Dose: 75 mg Documented by: Docusate Sodium (Docusate Na 100 Mg Cap) 100 mg PO BID [facility] Last Admin: 12/04/21 09:54 Dose: Not Given Documented by: Donepezil HCl (Donepezil Hcl 5 Mg Tab) 10 mg PO BID [facility] Last Admin: 12/04/21 09:54 Dose: 10 mg Documented by: Enteral Nutritional Formula (Glucerna Shake 237 Ml Can) 237 ml PO BID [facility] Last Admin: 12/04/21 09:56 Dose: 237 ml Documented by: Furosemide (Furosemide 40 Mg/4 Ml Vial) 40 mg IV BIDL [facility] Last Admin: 12/04/21 17:42 Dose: 40 mg Documented by: Gabapentin (Gabapentin 300 Mg Cap) 300 mg PO BID [facility] Last Admin: 12/04/21 09:56 Dose: 300 mg Documented by: Levofloxacin/Dextrose (Levaquin 750 Mg/150 Ml Ivpb (Premix)) 750 mg in 150 mls @ 100 mls/hr IV Q48H [facility] Insulin Human Regular (Insulin -Regular Human 50 Unit/0.5 Ml Ml) 0 unit SQ ACHS [facility]; Protocol Last Admin: 12/04/21 16:30 Dose: Not Given Documented by: L-Arginine/L-Glutamine/HMB (Berhane Packet) 1 pkt PO BID [facility] Last Admin: 12/04/21 09:57 Dose: 1 pkt Documented by: Levothyroxine Sodium (Levothyroxine Sod 0.075 Mg Tab) 0.15 mg PO DAILYAC [facility] Last Admin: 12/04/21 05:51 Dose: 0.15 mg Documented by: Methocarbamol (Methocarbamol 500 Mg Tab) 500 mg PO BEDTIME PRN PRN Reason: MUSCLE SPASMS Last Admin: 12/03/21 20:50 Dose: 500 mg Documented by: Methylprednisolone Sodium Succinate (Methylprednisolone 125 Mg Inj) 60 mg IV Q6HR [facility] Last Admin: 12/04/21 17:41 Dose: 60 mg Documented by: Morphine Sulfate (Morphine 2 Mg/Ml Syr) 2 mg IV Q6H PRN PRN Reason: Pain scale 8-10 (Severe) Last Admin: 12/04/21 16:16 Dose: 2 mg Documented by: Ondansetron HCl (Ondansetron 4 Mg/2 Ml Vial) 4 mg IV Q6HP PRN PRN Reason: NAUSEA / VOMITING Last Admin: 12/04/21 16:16 Dose: 4 mg Documented by: Pantoprazole Sodium (Pantoprazole 40mg Tablet) 40 mg PO DAILYAC [facility]; Protocol Last Admin: 12/04/21 05:51 Dose: 40 mg Documented by: Sodium Chloride (Flush Normal Saline 10 Ml) 10 ml IV BID [facility] Last Admin: 12/04/21 09:00 Dose: 10 ml Documented by: Spironolactone (Spironolactone 25 Mg Tablet) 25 mg PO DAILY [facility] Last Admin: 12/04/21 09:55 Dose: 25 mg Documented by: Tamsulosin HCl (Tamsulosin 0.4 Mg Sr Cap) 0.4 mg PO BEDTIME [facility] Last Admin: 12/03/21 20:51 Dose: 0.4 mg Documented by: Microbiology Results 12/02/21 20:15 Blood - Blood Aerobic Blood Culture - Preliminary No growth in 24 hours. 12/02/21 20:15 Blood - Blood Anaerobic Blood Culture - Preliminary No growth in 24 hours. 12/02/21 18:23 Nasopharnyx Influenza Type A Antigen Screen - Final 12/02/21 18:23 Nasopharnyx Influenza Type B Antigen Screen - Final Assessment/ Plan: Nephrology No dyspnea No chest pain Feeling better toiday No acute events overnight Vitals, medications, blood work and imaging reviewed in the chart. General: Oriented x3, Cooperative HEENT: Atraumatic, Mucous membr. moist/pink Neck: Supple Respiratory: Crackles/rales Cardiovascular: Regular rate/rhythm, Edema Gastrointestinal: No guarding, ND Musculoskeletal: No clubbing, No contractures Integumentary: No rashes, No cyanosis, Other (Toe amputations) Neurological: Normal speech Laboratory Data (last 24 hrs) 12/02/21 18:23: PT 22.3 H, INR 2.00 12/02/21 18:23: WBC 7.7, Hgb 10.3 L, Hct 32.9 L, Plt Count 180 12/02/21 18:23: Sodium 134 L, Potassium 3.4 L, BUN 48 H, Creatinine 2.55 H, Glucose 47 L*, Magnesium 2.3, Total Bilirubin 0.6, AST 15, ALT 19, Alkaline Phosphatase 76 Imagings Data: EXAM DESCRIPTION: CT - Abdomen Pelvis Wo Contrast - 12/02/2021 7:20 pm CLINICAL HISTORY: Abdominal pain. Epigastric pain COMPARISON: Abdomen Pelvis Wo Contrast dated 09/22/2021 TECHNIQUE: CT imaging of the abdomen and pelvis was performed without contrast. Solid organ, bowel and vascular assessment is limited due to lack of IV and oral contrast. All CT scans are performed using dose optimization technique as appropriate and may include automated exposure control or mA/KV adjustment according to patient size. FINDINGS: Small bilateral pleural effusions with atelectasis versus infiltrate in the right lung base. The liver, spleen, pancreas, and kidneys are within normal limits for a limited non-contrast examination. 4 cm right renal cyst. 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 Cholecystectomy clips. No bowel obstruction, free air, free fluid or abscess. The appendix is not identified as a discrete structure, however, no secondary findings of appendicitis are identified. Mild lumbosacral degenerative changes. IMPRESSION: Right lung base a developing infiltrate with small bilateral pleural effusions. No acute intra- abdominal or intrapelvic finding. A limited non-contrast examination was performed as detailed. EXAM DESCRIPTION: RAD - Chest Single View - 12/02/2021 6:41 pm CLINICAL HISTORY: SOB Chest pain. COMPARISON: Chest Single View dated 11/26/2021; Chest Single View dated 10/25/2021; Chest Single View dated 10/18/2021; Abdomen 1 View (KUB) dated 08/14/2021; Chest Pa And Lat (2 Views) dated 02/08/2016 FINDINGS: Portable technique limits examination quality. Opacities present in the right lung base which may represent infiltrate/ developing pneumonia. The lungs are otherwise clear. The heart is mildly enlarged with changes of a prior CABG noted.Multi lead pacer/defibrillator device is present. IMPRESSION: Suspected developing right lung base pneumonia. NORMAL LEFT VENTRICULAR EJECTION FRACTION 50-55%. 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 LEFT ATRIAL ENLARGEMENT. SEVERE DIASTOLIC DYSFUNCTION. 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 SEVERE TRICUSPID REGURGITATION. 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
[2021-12-04] MEDS: methocarbamoL 500 MG TAB PO PRN (21:13)
[2021-12-04] MEDS: LEVOFLOXACIN 750MG/D5W 150 ML IV SCH (21:15)
[2021-12-04] MEDS: TAMSULOSIN 0.4 MG SR CAP PO SCH (21:15)
[2021-12-05] MEDS: BENZONATATE 100 MG CAP PO PRN ×4 (03:55→21:02)
[2021-12-05 05:33] LABS: Absolute Lymphocytes (CBC) 0.9 K/uL (0.7-4.9); Lymphocytes % 21.2 % (15.3-44.8); MPV 7.9 fL (7.6-11.3); RBC Red Blood Cell Count 3.87 M/uL (4.33-5.43)
[2021-12-05] MEDS: METHYLPREDNISOLONE 125 MG INJ IV SCH ×3 (05:43→17:46)
[2021-12-05] MEDS: LEVOTHYROXINE SOD 0.075 MG TAB PO SCH (05:43)
[2021-12-05] MEDS: PANTOPRAZOLE 40MG TABLET PO SCH (05:43)
[2021-12-05 05:48] LABS: Albumin 2.9 g/dL (3.4-5.0); Bilirubin Total 0.7 mg/dL (0.2-1.0); Magnesium 2.5 mg/dL (1.8-2.4); Potassium 4.6 mmol/L (3.5-5.1); Protein, Total 6.9 g/dL (6.4-8.2)
--- NOTE | 2021-12-05 07:55 | EKG ---
Test Date: 2021-12-02 Test Time: 18:28:59 Blocker And Polisher: MARY MEASUREMENT RESULTS: Intervals: Rate: 74 SC: 162 QRSD: 188 QT: 512 QTc: 568 [place]: P: SC: 162 QRS: 259 T: 76 INTERPRETIVE STATEMENTS: AV dual-paced rhythm Abnormal ECG Compared to ECG 08/08/2021 14:35:04 No significant changes Electronically Signed On 12-05-21 07:50:50 CDT by Ori Rojo
--- NOTE | 2021-12-05 08:43 | P.PN ---
Date of Service: 12/05/21 Vital Signs Temp Pulse Resp BP Pulse Ox 97.2 F 73 16 143/63 H 95 12/05/21 04:00 12/05/21 04:00 12/05/21 04:00 12/05/21 04:00 12/05/21 04:00 Medications Acetaminophen (Acetaminophen 500 Mg Tab) 500 mg PO Q4HP PRN PRN Reason: Pain scale 2-4 (Mild) Albuterol Sulfate (Albuterol 2.5 Mg/3 Ml Neb Keri) 2.5 mg NEB [id number] PRN PRN Reason: WHEEZING Last Admin: 12/04/21 10:12 Dose: 2.5 mg Documented by: Amiodarone HCl (Amiodarone Hcl 200 Mg Tab) 200 mg PO DAILY [facility] Last Admin: 12/04/21 09:54 Dose: 200 mg Documented by: Apixaban (Apixaban 2.5 Mg Tablet) 2.5 mg PO BID [facility] Last Admin: 12/04/21 21:15 Dose: 2.5 mg Documented by: Benzonatate (Benzonatate 100 Mg Cap) 100 mg PO TID PRN PRN Reason: COUGH Last Admin: 12/05/21 03:55 Dose: 100 mg Documented by: Calcitriol (Calcitrol 0.25 Mcg Cap) 0.5 mcg PO DAILY [facility] Last Admin: 12/04/21 09:55 Dose: 0.5 mcg Documented by: Carvedilol (Carvedilol 6.25 Mg Tab) 6.25 mg PO BIDWM [facility] Last Admin: 12/04/21 17:42 Dose: 6.25 mg Documented by: Cholecalciferol (Vitamin D 5,000 Unit Cap) 5,000 unit PO DAILY [facility] Last Admin: 12/04/21 09:56 Dose: 5,000 unit Documented by: Clopidogrel Bisulfate (Clopidogrel 75 Mg Tablet) 75 mg PO DAILY [facility] Last Admin: 12/04/21 09:55 Dose: 75 mg Documented by: Docusate Sodium (Docusate Na 100 Mg Cap) 100 mg PO BID [facility] Last Admin: 12/04/21 21:13 Dose: 100 mg Documented by: Donepezil HCl (Donepezil Hcl 5 Mg Tab) 10 mg PO BID [facility] Last Admin: 12/04/21 21:14 Dose: 10 mg Documented by: Enteral Nutritional Formula (Glucerna Shake 237 Ml Can) 237 ml PO BID [facility] Last Admin: 12/04/21 21:16 Dose: 237 ml Documented by: Furosemide (Furosemide 40 Mg/4 Ml Vial) 40 mg IV BIDL [facility] Last Admin: 12/04/21 17:42 Dose: 40 mg Documented by: Gabapentin (Gabapentin 300 Mg Cap) 300 mg PO BID [facility] Last Admin: 12/04/21 21:15 Dose: 300 mg Documented by: Levofloxacin/Dextrose (Levaquin 750 Mg/150 Ml Ivpb (Premix)) 750 mg in 150 mls @ 100 mls/hr IV Q48H [facility] Last Admin: 12/04/21 21:15 Dose: 150 mls Documented by: Insulin Human Regular (Insulin -Regular Human 50 Unit/0.5 Ml Ml) 0 unit SQ ACHS [facility]; Protocol Last Admin: 12/04/21 21:16 Dose: 3 unit Documented by: L-Arginine/L-Glutamine/HMB (Berhane Packet) 1 pkt PO BID [facility] Last Admin: 12/04/21 21:15 Dose: 1 pkt Documented by: Levothyroxine Sodium (Levothyroxine Sod 0.075 Mg Tab) 0.15 mg PO DAILYAC [facility] Last Admin: 12/05/21 05:43 Dose: 0.15 mg Documented by: Methocarbamol (Methocarbamol 500 Mg Tab) 500 mg PO BEDTIME PRN PRN Reason: MUSCLE SPASMS Last Admin: 12/04/21 21:13 Dose: 500 mg Documented by: Methylprednisolone Sodium Succinate (Methylprednisolone 125 Mg Inj) 60 mg IV Q6HR [facility] Last Admin: 12/05/21 05:43 Dose: 60 mg Documented by: Morphine Sulfate (Morphine 2 Mg/Ml Syr) 2 mg IV Q6H PRN PRN Reason: Pain scale 8-10 (Severe) Last Admin: 12/04/21 16:16 Dose: 2 mg Documented by: Ondansetron HCl (Ondansetron 4 Mg/2 Ml Vial) 4 mg IV Q6HP PRN PRN Reason: NAUSEA / VOMITING Last Admin: 12/04/21 16:16 Dose: 4 mg Documented by: Pantoprazole Sodium (Pantoprazole 40mg Tablet) 40 mg PO DAILYAC [facility]; Protocol Last Admin: 12/05/21 05:43 Dose: 40 mg Documented by: Sodium Chloride (Flush Normal Saline 10 Ml) 10 ml IV BID [facility] Last Admin: 12/04/21 21:16 Dose: 10 ml Documented by: Spironolactone (Spironolactone 25 Mg Tablet) 25 mg PO DAILY [facility] Last Admin: 12/04/21 09:55 Dose: 25 mg Documented by: Tamsulosin HCl (Tamsulosin 0.4 Mg Sr Cap) 0.4 mg PO BEDTIME [facility] Last Admin: 12/04/21 21:15 Dose: 0.4 mg Documented by: Microbiology Results 12/02/21 20:15 Blood - Blood Aerobic Blood Culture - Preliminary No growth in 24 hours. 12/02/21 20:15 Blood - Blood Anaerobic Blood Culture - Preliminary No growth in 24 hours. 12/02/21 18:23 Nasopharnyx Influenza Type A Antigen Screen - Final 12/02/21 18:23 Nasopharnyx Influenza Type B Antigen Screen - Final Assessment/ Plan: Nephrology No dyspnea No chest pain +BM Feeling better today Currently on CPAP No acute events overnight Vitals, medications, blood work and imaging reviewed in the chart. General: Oriented x3, Cooperative HEENT: Atraumatic, Mucous membr. moist/pink Neck: Supple Respiratory: Crackles/rales Cardiovascular: Regular rate/rhythm, Edema Gastrointestinal: No guarding, hyperactive BS Musculoskeletal: No clubbing, No contractures Integumentary: No rashes, No cyanosis, Other (Toe amputations) Neurological: Normal speech Laboratory Data (last 24 hrs) 12/02/21 18:23: PT 22.3 H, INR 2.00 12/02/21 18:23: WBC 7.7, Hgb 10.3 L, Hct 32.9 L, Plt Count 180 12/02/21 18:23: Sodium 134 L, Potassium 3.4 L, BUN 48 H, Creatinine 2.55 H, Glucose 47 L*, Magnesium 2.3, Total Bilirubin 0.6, AST 15, ALT 19, Alkaline Phosphatase 76 Imagings Data: EXAM DESCRIPTION: CT - Abdomen Pelvis Wo Contrast - 12/02/2021 7:20 pm CLINICAL HISTORY: Abdominal pain. Epigastric pain COMPARISON: Abdomen Pelvis Wo Contrast dated 09/22/2021 TECHNIQUE: CT imaging of the abdomen and pelvis was performed without contrast. Solid organ, bowel and vascular assessment is limited due to lack of IV and oral contrast. All CT scans are performed using dose optimization technique as appropriate and may include automated exposure control or mA/KV adjustment according to patient size. FINDINGS: Small bilateral pleural effusions with atelectasis versus infiltrate in the right lung base. The liver, spleen, pancreas, and kidneys are within normal limits for a limited non-contrast examination. 4 cm right renal cyst. 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 Cholecystectomy clips. No bowel obstruction, free air, free fluid or abscess. The appendix is not identified as a discrete structure, however, no secondary findings of appendicitis are identified. Mild lumbosacral degenerative changes. IMPRESSION: Right lung base a developing infiltrate with small bilateral pleural effusions. No acute intra- abdominal or intrapelvic finding. A limited non-contrast examination was performed as detailed. EXAM DESCRIPTION: RAD - Chest Single View - 12/02/2021 6:41 pm CLINICAL HISTORY: SOB Chest pain. COMPARISON: Chest Single View dated 11/26/2021; Chest Single View dated 10/25/2021; Chest Single View dated 10/18/2021; Abdomen 1 View (KUB) dated 08/14/2021; Chest Pa And Lat (2 Views) dated 02/08/2016 FINDINGS: Portable technique limits examination quality. Opacities present in the right lung base which may represent infiltrate/ developing pneumonia. The lungs are otherwise clear. The heart is mildly enlarged with changes of a prior CABG noted.Multi lead pacer/defibrillator device is present. IMPRESSION: Suspected developing right lung base pneumonia. NORMAL LEFT VENTRICULAR EJECTION FRACTION 50-55%. 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 LEFT ATRIAL ENLARGEMENT. SEVERE DIASTOLIC DYSFUNCTION. 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 SEVERE TRICUSPID REGURGITATION. 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
[2021-12-05] MEDS: DOCUSATE NA 100 MG CAP PO SCH ×2 (09:00→21:00)
--- NOTE | 2021-12-05 09:19 | P.PN ---
Date of Service: 12/04/21 Subjective Patient's respiratory status has improved. Physical Examination - Vitals Reviewed - Physical Exam General: Alert, In no apparent distress, Oriented x2 Respiratory: Basilar crackles Cardiovascular: Systolic ejection murmur; irregular rate and rhythm; Gastrointestinal: Normal bowel sounds, Soft and benign Neurological: No focal deficits Extremities: Bilateral lower extremity edema-improved Assessment and Plan - Plan Assessment: Right lower lobe pneumonia Acute on chronic diastolic congestive heart failure Acute kidney injury on CKD 4 Atrial fibrillation on chronic anticoagulation therapy Diabetes mellitus type 2insulin-dependent with hypoglycemia Hypertension Dementia Plan: 1. Continue with IV antibiotics 2. Cultures negative 3. We will repeat chest x-ray 4. Continue with diuretics 5. Echocardiogram reviewed 6. Continue nebs as needed; severe pulmonary hypertension 7. O2 per protocol 8. Transfer back to assisted living at discharge 9. Strict blood pressure and blood sugar control 10. GI and DVT prophylaxis - Advance Directives Does patient have a Living Will: Yes Does patient have a Durable POA for Healthcare: Yes - Code Status/Comfort Care Code Status Assessed: Yes (Full code) Critical Care: No Time Spent Managing Pts Care (In Minutes): 55
[2021-12-05] MEDS: INSULIN -REGULAR HUMAN 50 UNIT/0.5 ML ML SQ SCH ×4 (09:51→21:02)
[2021-12-05] MEDS: JUVEN PACKET PO SCH ×2 (09:51→21:03)
[2021-12-05] MEDS: GLUCERNA SHAKE 237 ML CAN PO SCH ×2 (09:51→21:00)
[2021-12-05] MEDS: FUROSEMIDE 40 MG/4 ML VIAL IV SCH ×2 (09:52→17:46)
[2021-12-05] MEDS: SOD FERRIC GLUC COMPLX/SUCROSE 125 MG in NA CHLORIDE 0.9% 100 ML IV SCH (09:52)
[2021-12-05] MEDS: APIXABAN 2.5 MG TABLET PO SCH ×2 (09:53→21:02)
[2021-12-05] MEDS: VITAMIN D 5,000 UNIT CAP PO SCH (09:53)
[2021-12-05] MEDS: AMIODARONE HCL 200 MG TAB PO SCH (09:53)
[2021-12-05] MEDS: CLOPIDOGREL 75 MG TABLET PO SCH (09:53)
[2021-12-05] MEDS: SPIRONOLACTONE 25 MG TABLET PO SCH (09:53)
[2021-12-05] MEDS: CALCITROL 0.25 MCG CAP PO SCH (09:53)
[2021-12-05] MEDS: DONEPEZIL HCL 5 MG TAB PO SCH ×2 (09:53→21:02)
[2021-12-05] MEDS: GABAPENTIN 300 MG CAP PO SCH ×2 (09:54→21:02)
[2021-12-05] MEDS: carvediloL 6.25 MG TAB PO SCH ×2 (09:54→17:46)
[2021-12-05] MEDS: TAMSULOSIN 0.4 MG SR CAP PO SCH (21:02)
[2021-12-05] MEDS ORDERED: RAMELTEON 8 MG PO SCH (21:10)
[2021-12-05] MEDS: MELATONIN 5 MG TABLET PO PRN (22:07)
[2021-12-06] MEDS: METHYLPREDNISOLONE 125 MG INJ IV SCH ×3 (00:43→11:05)
[2021-12-06] MEDS: MORPHINE 2 MG/ML SYR IV PRN (01:52)
[2021-12-06 06:18] LABS: Absolute Lymphocytes (CBC) 1.1 K/uL (0.7-4.9); Hematocrit 31.7 % (39.6-49.0); Lymphocytes % 15.4 % (15.3-44.8); MPV 8.1 fL (7.6-11.3); RBC Red Blood Cell Count 3.82 M/uL (4.33-5.43)
[2021-12-06] MEDS: PANTOPRAZOLE 40MG TABLET PO SCH (06:19)
[2021-12-06] MEDS: LEVOTHYROXINE SOD 0.075 MG TAB PO SCH (06:19)
[2021-12-06 06:28] LABS: Albumin 2.8 g/dL (3.4-5.0); Bilirubin Total 0.4 mg/dL (0.2-1.0); Magnesium 2.4 mg/dL (1.8-2.4); Potassium 4.6 mmol/L (3.5-5.1); Protein, Total 6.5 g/dL (6.4-8.2); Uric Acid 13.9 mg/dL (3.5-7.2)
--- NOTE | 2021-12-06 07:48 | RAD REPORT ---
EXAM DESCRIPTION: RAD - Chest Single View - 12/06/2021 5:48 am CLINICAL HISTORY: pneumonia COMPARISON: Chest Single View dated 12/02/2021; Chest Single View dated 11/26/2021; Chest Single View dated 10/25/2021; Chest Single View dated 10/18/2021 FINDINGS: Lines: Pacemaker/ICD. Lungs: Elevated right hemidiaphragm and likely underlying atelectasis or pneumonia. This is similar. Pleural: No significant pleural effusions or pneumothorax. Cardiac: Cardiomegaly Bones: No acute fractures. Other: Sternotomy. IMPRESSION: Elevated right hemidiaphragm with underlying atelectasis and/or pneumonia. This is simil ar to 12/02/2021.
[2021-12-06] MEDS: INSULIN -REGULAR HUMAN 50 UNIT/0.5 ML ML SQ SCH ×4 (08:57→20:37)
[2021-12-06] MEDS: GABAPENTIN 300 MG CAP PO SCH ×2 (08:58→20:31)
[2021-12-06] MEDS: CLOPIDOGREL 75 MG TABLET PO SCH (08:58)
[2021-12-06] MEDS: carvediloL 6.25 MG TAB PO SCH ×2 (08:58→16:31)
[2021-12-06] MEDS: DONEPEZIL HCL 5 MG TAB PO SCH ×2 (08:58→20:31)
[2021-12-06] MEDS: SPIRONOLACTONE 25 MG TABLET PO SCH (08:58)
[2021-12-06] MEDS: FUROSEMIDE 40 MG/4 ML VIAL IV SCH (08:59)
[2021-12-06] MEDS: DOCUSATE NA 100 MG CAP PO SCH ×2 (08:59→20:32)
[2021-12-06] MEDS: AMIODARONE HCL 200 MG TAB PO SCH (08:59)
[2021-12-06] MEDS: CALCITROL 0.25 MCG CAP PO SCH (08:59)
[2021-12-06] MEDS: BENZONATATE 100 MG CAP PO PRN ×2 (08:59→16:31)
[2021-12-06] MEDS: GLUCERNA SHAKE 237 ML CAN PO SCH ×2 (08:59→20:32)
[2021-12-06] MEDS: VITAMIN D 5,000 UNIT CAP PO SCH (08:59)
[2021-12-06] MEDS: APIXABAN 2.5 MG TABLET PO SCH ×2 (08:59→20:31)
[2021-12-06] MEDS: JUVEN PACKET PO SCH ×2 (09:00→20:31)
[2021-12-06] MEDS: SOD FERRIC GLUC COMPLX/SUCROSE 125 MG in NA CHLORIDE 0.9% 100 ML IV SCH (11:05)
[2021-12-06] MEDS: MELATONIN 5 MG TABLET PO PRN (20:31)
[2021-12-06] MEDS: LEVOFLOXACIN 750MG/D5W 150 ML IV SCH (20:32)
[2021-12-06] MEDS: TAMSULOSIN 0.4 MG SR CAP PO SCH (20:37)
--- NOTE | 2021-12-06 21:10 | P.PN ---
Date of Service: 12/06/21 Vital Signs Temp Pulse Resp BP Pulse Ox 96.1 F L 134 H 18 111/62 84 L 12/06/21 16:00 12/06/21 16:31 12/06/21 16:00 12/06/21 16:31 12/06/21 16:00 Medications Acetaminophen (Acetaminophen 500 Mg Tab) 500 mg PO Q4HP PRN PRN Reason: Pain scale 2-4 (Mild) Albuterol Sulfate (Albuterol 2.5 Mg/3 Ml Neb Keri) 2.5 mg NEB [id number] PRN PRN Reason: WHEEZING Last Admin: 12/04/21 10:12 Dose: 2.5 mg Documented by: Amiodarone HCl (Amiodarone Hcl 200 Mg Tab) 200 mg PO DAILY [facility] Last Admin: 12/06/21 08:59 Dose: 200 mg Documented by: Apixaban (Apixaban 2.5 Mg Tablet) 2.5 mg PO BID [facility] Last Admin: 12/06/21 20:31 Dose: 2.5 mg Documented by: Benzonatate (Benzonatate 100 Mg Cap) 100 mg PO TID PRN PRN Reason: COUGH Last Admin: 12/06/21 16:31 Dose: 100 mg Documented by: Calcitriol (Calcitrol 0.25 Mcg Cap) 0.5 mcg PO DAILY [facility] Last Admin: 12/06/21 08:59 Dose: 0.5 mcg Documented by: Carvedilol (Carvedilol 6.25 Mg Tab) 6.25 mg PO BIDWM [facility] [place] Last Admin: 12/06/21 16:31 Dose: 6.25 mg Documented by: Cholecalciferol (Vitamin D 5,000 Unit Cap) 5,000 unit PO DAILY [facility] Last Admin: 12/06/21 08:59 Dose: 5,000 unit Documented by: Clopidogrel Bisulfate (Clopidogrel 75 Mg Tablet) 75 mg PO DAILY [facility] Last Admin: 12/06/21 08:58 Dose: 75 mg Documented by: Docusate Sodium (Docusate Na 100 Mg Cap) 100 mg PO BID [facility] Last Admin: 12/06/21 20:32 Dose: Not Given Documented by: Donepezil HCl (Donepezil Hcl 5 Mg Tab) 10 mg PO BID [facility] Last Admin: 12/06/21 20:31 Dose: 10 mg Documented by: Enteral Nutritional Formula (Glucerna Sammy 237 Ml Can) 237 ml PO BID [facility] Last Admin: 12/06/21 20:32 Dose: Not Given Documented by: Gabapentin (Gabapentin 300 Mg Cap) 300 mg PO BID [facility] Last Admin: 12/06/21 20:31 Dose: 300 mg Documented by: Levofloxacin/Dextrose (Levaquin 750 Mg/150 Ml Ivpb (Premix)) 750 mg in 150 mls @ 100 mls/hr IV Q48H [facility] Last Admin: 12/06/21 20:32 Dose: 150 mls Documented by: Ferric Sodium Gluconate Complex 125 mg/ Sodium Chloride 110 mls @ 100 mls/hr IV Q24H [facility] Stop: 12/12/21 11:05 Last Admin: 12/06/21 11:05 Dose: 110 mls Documented by: Insulin Human Regular (Insulin -Regular Human 50 Unit/0.5 Ml Ml) 0 unit SQ ACHS [facility]; Protocol Last Admin: 12/06/21 20:37 Dose: 7 unit Documented by: L-Arginine/L-Glutamine/HMB (Berhane Packet) 1 pkt PO BID [facility] Last Admin: 12/06/21 20:31 Dose: 1 pkt Documented by: Levothyroxine Sodium (Levothyroxine Sod 0.075 Mg Tab) 0.15 mg PO DAILYAC [facility] Last Admin: 12/06/21 06:19 Dose: 0.15 mg Documented by: Melatonin (Melatonin 5 Mg Tablet) 5 mg PO BEDTIME PRN PRN PRN Reason: INSOMNIA Last Admin: 12/06/21 20:31 Dose: 5 mg Documented by: Methocarbamol (Methocarbamol 500 Mg Tab) 500 mg PO BEDTIME PRN PRN Reason: MUSCLE SPASMS Last Admin: 12/04/21 21:13 Dose: 500 mg Documented by: Morphine Sulfate (Morphine 2 Mg/Ml Syr) 2 mg IV Q6H PRN PRN Reason: Pain scale 8-10 (Severe) Last Admin: 12/06/21 01:52 Dose: 2 mg Documented by: Ondansetron HCl (Ondansetron 4 Mg/2 Ml Vial) 4 mg IV Q6HP PRN PRN Reason: NAUSEA / VOMITING Last Admin: 12/04/21 16:16 Dose: 4 mg Documented by: Pantoprazole Sodium (Pantoprazole 40mg Tablet) 40 mg PO DAILYAC [facility]; Protocol Last Admin: 12/06/21 06:19 Dose: 40 mg Documented by: Sodium Chloride (Flush Normal Saline 10 Ml) 10 ml IV BID [facility] Last Admin: 12/06/21 20:32 Dose: 10 ml Documented by: Spironolactone (Spironolactone 25 Mg Tablet) 25 mg PO DAILY [facility] Last Admin: 12/06/21 08:58 Dose: 25 mg Documented by: Tamsulosin HCl (Tamsulosin 0.4 Mg Sr Cap) 0.4 mg PO BEDTIME [facility] Last Admin: 12/06/21 20:37 Dose: 0.4 mg Documented by: Microbiology Results 12/02/21 20:15 Blood - Blood Aerobic Blood Culture - Preliminary No growth in 24 hours. 12/02/21 20:15 Blood - Blood Anaerobic Blood Culture - Preliminary No growth in 24 hours. 12/02/21 18:23 Nasopharnyx Influenza Type A Antigen Screen - Final 12/02/21 18:23 Nasopharnyx Influenza Type B Antigen Screen - Final Assessment/ Plan: Nephrology No dyspnea No chest pain +BM Feeling better today Currently on CPAP No acute events overnight Vitals, medications, blood work and imaging reviewed in the chart. General: Oriented x3, Cooperative HEENT: Atraumatic, Mucous membr. moist/pink Neck: Supple Respiratory: Crackles/rales Cardiovascular: Regular rate/rhythm, Edema Gastrointestinal: No guarding, hyperactive BS Musculoskeletal: No clubbing, No contractures Integumentary: No rashes, No cyanosis, Other (Toe amputations) Neurological: Normal speech Laboratory Data (last 24 hrs) 12/02/21 18:23: PT 22.3 H, INR 2.00 12/02/21 18:23: WBC 7.7, Hgb 10.3 L, Hct 32.9 L, Plt Count 180 12/02/21 18:23: Sodium 134 L, Potassium 3.4 L, BUN 48 H, Creatinine 2.55 H, Glucose 47 L*, Magnesium 2.3, Total Bilirubin 0.6, AST 15, ALT 19, Alkaline Phosphatase 76 Imagings Data: EXAM DESCRIPTION: CT - Abdomen Pelvis Wo Contrast - 12/02/2021 7:20 pm CLINICAL HISTORY: Abdominal pain. Epigastric pain COMPARISON: Abdomen Pelvis Wo Contrast dated 09/22/2021 TECHNIQUE: CT imaging of the abdomen and pelvis was performed without contrast. Solid organ, bowel and vascular assessment is limited due to lack of IV and oral contrast. All CT scans are performed using dose optimization technique as appropriate and may include automated exposure control or mA/KV adjustment according to patient size. FINDINGS: Small bilateral pleural effusions with atelectasis versus infiltrate in the right lung base. The liver, spleen, pancreas, and kidneys are within normal limits for a limited non-contrast examination. 4 cm right renal cyst. 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 Cholecystectomy clips. No bowel obstruction, free air, free fluid or abscess. The appendix is not identified as a discrete structure, however, no secondary findings of appendicitis are identified. Mild lumbosacral degenerative changes. IMPRESSION: Right lung base a developing infiltrate with small bilateral pleural effusions. No acute intra- abdominal or intrapelvic finding. A limited non-contrast examination was performed as detailed. EXAM DESCRIPTION: RAD - Chest Single View - 12/02/2021 6:41 pm CLINICAL HISTORY: SOB Chest pain. COMPARISON: Chest Single View dated 11/26/2021; Chest Single View dated 10/25/2021; Chest Single View dated 10/18/2021; Abdomen 1 View (KUB) dated 08/14/2021; Chest Pa And Lat (2 Views) dated 02/08/2016 FINDINGS: Portable technique limits examination quality. Opacities present in the right lung base which may represent infiltrate/ developing pneumonia. The lungs are otherwise clear. The heart is mildly enlarged with changes of a prior CABG noted.Multi lead pacer/defibrillator device is present. IMPRESSION: Suspected developing right lung base pneumonia. NORMAL LEFT VENTRICULAR EJECTION FRACTION 50-55%. 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 LEFT ATRIAL ENLARGEMENT. SEVERE DIASTOLIC DYSFUNCTION. 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 SEVERE TRICUSPID REGURGITATION. 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
[2021-12-07] MEDS: BENZONATATE 100 MG CAP PO PRN ×2 (04:47→10:28)
[2021-12-07] MEDS: LEVOTHYROXINE SOD 0.075 MG TAB PO SCH (06:05)
[2021-12-07] MEDS: PANTOPRAZOLE 40MG TABLET PO SCH (06:05)
[2021-12-07] MEDS: INSULIN -REGULAR HUMAN 50 UNIT/0.5 ML ML SQ SCH ×2 (07:30→12:18)
--- NOTE | 2021-12-07 07:40 | P.PN ---
Date of Service: 12/07/21 Vital Signs Temp Pulse Resp BP Pulse Ox 97.6 F 69 16 129/59 L 99 12/07/21 04:00 12/07/21 04:00 12/07/21 04:00 12/07/21 04:00 12/07/21 04:00 Medications Acetaminophen (Acetaminophen 500 Mg Tab) 500 mg PO Q4HP PRN PRN Reason: Pain scale 2-4 (Mild) Albuterol Sulfate (Albuterol 2.5 Mg/3 Ml Neb Keri) 2.5 mg NEB [id number] PRN PRN Reason: WHEEZING Last Admin: 12/04/21 10:12 Dose: 2.5 mg Documented by: Amiodarone HCl (Amiodarone Hcl 200 Mg Tab) 200 mg PO DAILY [facility] Last Admin: 12/06/21 08:59 Dose: 200 mg Documented by: Apixaban (Apixaban 2.5 Mg Tablet) 2.5 mg PO BID [facility] Last Admin: 12/06/21 20:31 Dose: 2.5 mg Documented by: Benzonatate (Benzonatate 100 Mg Cap) 100 mg PO TID PRN PRN Reason: COUGH Last Admin: 12/07/21 04:47 Dose: 100 mg Documented by: Calcitriol (Calcitrol 0.25 Mcg Cap) 0.5 mcg PO DAILY [facility] Last Admin: 12/06/21 08:59 Dose: 0.5 mcg Documented by: Carvedilol (Carvedilol 6.25 Mg Tab) 6.25 mg PO BIDWM [facility] Last Admin: 12/06/21 16:31 Dose: 6.25 mg Documented by: Cholecalciferol (Vitamin D 5,000 Unit Cap) 5,000 unit PO DAILY [facility] Last Admin: 12/06/21 08:59 Dose: 5,000 unit Documented by: Clopidogrel Bisulfate (Clopidogrel 75 Mg Tablet) 75 mg PO DAILY [facility] Last Admin: 12/06/21 08:58 Dose: 75 mg Documented by: Docusate Sodium (Docusate Na 100 Mg Cap) 100 mg PO BID [facility] Last Admin: 12/06/21 20:32 Dose: Not Given Documented by: Donepezil HCl (Donepezil Hcl 5 Mg Tab) 10 mg PO BID [facility] Last Admin: 12/06/21 20:31 Dose: 10 mg Documented by: Enteral Nutritional Formula (Glucerna Shake 237 Ml Can) 237 ml PO BID [facility] Last Admin: 12/06/21 20:32 Dose: Not Given Documented by: Gabapentin (Gabapentin 300 Mg Cap) 300 mg PO BID [facility] Last Admin: 12/06/21 20:31 Dose: 300 mg Documented by: Levofloxacin/Dextrose (Levaquin 750 Mg/150 Ml Ivpb (Premix)) 750 mg in 150 mls @ 100 mls/hr IV Q48H [facility] Last Admin: 12/06/21 20:32 Dose: 150 mls Documented by: Ferric Sodium Gluconate Complex 125 mg/ Sodium Chloride 110 mls @ 100 mls/hr IV Q24H [facility] Stop: 12/12/21 11:05 Last Admin: 12/06/21 11:05 Dose: 110 mls Documented by: Insulin Human Regular (Insulin -Regular Human 50 Unit/0.5 Ml Ml) 0 unit SQ ACHS [facility]; Protocol Last Admin: 12/06/21 20:37 Dose: 7 unit Documented by: L-Arginine/L-Glutamine/HMB (Berhane Packet) 1 pkt PO BID [facility] Last Admin: 12/06/21 20:31 Dose: 1 pkt Documented by: Levothyroxine Sodium (Levothyroxine Sod 0.075 Mg Tab) 0.15 mg PO DAILYAC [facility] Last Admin: 12/07/21 06:05 Dose: 0.15 mg Documented by: Melatonin (Melatonin 5 Mg Tablet) 5 mg PO BEDTIME PRN PRN PRN Reason: INSOMNIA Last Admin: 12/06/21 20:31 Dose: 5 mg Documented by: Methocarbamol (Methocarbamol 500 Mg Tab) 500 mg PO BEDTIME PRN PRN Reason: MUSCLE SPASMS Last Admin: 12/04/21 21:13 Dose: 500 mg Documented by: Morphine Sulfate (Morphine 2 Mg/Ml Syr) 2 mg IV Q6H PRN PRN Reason: Pain scale 8-10 (Severe) Last Admin: 12/06/21 01:52 Dose: 2 mg Documented by: Ondansetron HCl (Ondansetron 4 Mg/2 Ml Vial) 4 mg IV Q6HP PRN PRN Reason: NAUSEA / VOMITING Last Admin: 12/04/21 16:16 Dose: 4 mg Documented by: Pantoprazole Sodium (Pantoprazole 40mg Tablet) 40 mg PO DAILYAC [facility]; Protocol Last Admin: 12/07/21 06:05 Dose: 40 mg Documented by: Sodium Chloride (Flush Normal Saline 10 Ml) 10 ml IV BID [facility] Last Admin: 12/06/21 20:32 Dose: 10 ml Documented by: Spironolactone (Spironolactone 25 Mg Tablet) 25 mg PO DAILY [facility] Last Admin: 12/06/21 08:58 Dose: 25 mg Documented by: Tamsulosin HCl (Tamsulosin 0.4 Mg Sr Cap) 0.4 mg PO BEDTIME [facility] Last Admin: 12/06/21 20:37 Dose: 0.4 mg Documented by: Microbiology Results 12/02/21 20:15 Blood - Blood Aerobic Blood Culture - Preliminary No growth in 24 hours. 12/02/21 20:15 Blood - Blood Anaerobic Blood Culture - Preliminary No growth in 24 hours. 12/02/21 18:23 Nasopharnyx Influenza Type A Antigen Screen - Final 12/02/21 18:23 Nasopharnyx Influenza Type B Antigen Screen - Final Assessment/ Plan: Nephrology No dyspnea No chest pain Reports a worsening cough Currently on CPAP No acute events overnight Vitals, medications, blood work and imaging reviewed in the chart. General: Oriented x3, Cooperative HEENT: Atraumatic, Mucous membr. moist/pink Neck: Supple Respiratory: Crackles/rales Cardiovascular: Regular rate/rhythm, Edema Gastrointestinal: No guarding, hyperactive BS Musculoskeletal: No clubbing, No contractures Integumentary: No rashes, No cyanosis, Other (Toe amputations) Neurological: Normal speech Laboratory Data (last 24 hrs) 12/02/21 18:23: PT 22.3 H, INR 2.00 12/02/21 18:23: WBC 7.7, Hgb 10.3 L, Hct 32.9 L, Plt Count 180 12/02/21 18:23: Sodium 134 L, Potassium 3.4 L, BUN 48 H, Creatinine 2.55 H, Glucose 47 L*, Magnesium 2.3, Total Bilirubin 0.6, AST 15, ALT 19, Alkaline Phosphatase 76 Imagings Data: EXAM DESCRIPTION: CT - Abdomen Pelvis Wo Contrast - 12/02/2021 7:20 pm CLINICAL HISTORY: Abdominal pain. Epigastric pain COMPARISON: Abdomen Pelvis Wo Contrast dated 09/22/2021 TECHNIQUE: CT imaging of the abdomen and pelvis was performed without contrast. Solid organ, bowel and vascular assessment is limited due to lack of IV and oral contrast. All CT scans are performed using dose optimization technique as appropriate and may include automated exposure control or mA/KV adjustment according to patient size. FINDINGS: Small bilateral pleural effusions with atelectasis versus infiltrate in the right lung base. The liver, spleen, pancreas, and kidneys are within normal limits for a limited non-contrast examination. 4 cm right renal cyst. 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 Cholecystectomy clips. No bowel obstruction, free air, free fluid or abscess. The appendix is not identified as a discrete structure, however, no secondary findings of appendicitis are identified. Mild lumbosacral degenerative changes. IMPRESSION: Right lung base a developing infiltrate with small bilateral pleural effusions. No acute intra- abdominal or intrapelvic finding. A limited non-contrast examination was performed as detailed. EXAM DESCRIPTION: RAD - Chest Single View - 12/02/2021 6:41 pm CLINICAL HISTORY: SOB Chest pain. COMPARISON: Chest Single View dated 11/26/2021; Chest Single View dated 10/25/2021; Chest Single View dated 10/18/2021; Abdomen 1 View (KUB) dated 08/14/2021; Chest Pa And Lat (2 Views) dated 02/08/2016 FINDINGS: Portable technique limits examination quality. Opacities present in the right lung base which may represent infiltrate/ developing pneumonia. The lungs are otherwise clear. The heart is mildly enlarged with changes of a prior CABG noted.Multi lead pacer/defibrillator device is present. IMPRESSION: Suspected developing right lung base pneumonia. NORMAL LEFT VENTRICULAR EJECTION FRACTION 50-55%. 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 LEFT ATRIAL ENLARGEMENT. SEVERE DIASTOLIC DYSFUNCTION. 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 SEVERE TRICUSPID REGURGITATION. 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
--- NOTE | 2021-12-07 07:54 | P.PN ---
Date of Service: 12/06/21 Subjective Patient states he has a little bit more of a cough and congestion. Chest x-ray does not show any worsening. Oxygen saturation are stable. Continue with physical therapy. Physical Examination - Vitals Reviewed - Physical Exam General: Alert, In no apparent distress, Oriented x2 Respiratory: Clear bilaterally except for basilar crackles Cardiovascular: Systolic ejection murmur; irregular rate and rhythm; Gastrointestinal: Normal bowel sounds, Soft and benign Neurological: No focal deficits Extremities: Bilateral lower extremity edema-improved Assessment and Plan - Plan Assessment: Right lower lobe pneumonia Acute on chronic diastolic congestive heart failure Acute kidney injury on CKD 4 Atrial fibrillation on chronic anticoagulation therapy Diabetes mellitus type 2insulin-dependent with hypoglycemia Hypertension Dementia Plan: 1. Continue with IV antibiotics 2. Cultures negative 3. We will repeat chest x-ray 4. Continue with diuretics 5. Echocardiogram reviewed; normal systolic function 6. Continue nebs as needed; severe pulmonary hypertension 7. O2 per protocol 8. Transfer back to assisted living at discharge 9. Strict blood pressure and blood sugar control 10. GI and DVT prophylaxis - Advance Directives Does patient have a Living Will: Yes Does patient have a Durable POA for Healthcare: Yes - Code Status/Comfort Care Code Status Assessed: Yes (Full code) Critical Care: No Time Spent Managing Pts Care (In Minutes): 55
--- NOTE | 2021-12-07 07:59 | P.PN ---
Date of Service: 12/05/21 Subjective Patient looks to be extensively diuresed. He states he is feeling better. Mentation improved and lower extremity edema improved as well. Physical Examination - Vitals Reviewed - Physical Exam General: Alert, In no apparent distress, Oriented x3 Respiratory: Clear bilaterally except for basilar crackles Cardiovascular: Systolic ejection murmur; irregular rate and rhythm; Gastrointestinal: Normal bowel sounds, Soft and benign Neurological: No focal deficits Extremities: Bilateral lower extremity edema-improved Assessment and Plan - Plan Assessment: Right lower lobe pneumonia Acute on chronic diastolic congestive heart failure Acute kidney injury on CKD 4 Atrial fibrillation on chronic anticoagulation therapy Diabetes mellitus type 2insulin-dependent with hypoglycemia Hypertension Dementia Plan: 1. Continue with IV antibiotics; cultures pending 2. Cultures are negative after 48 hours 3. Chest x-ray with no abnormalities 4. Continue with gentle diuretic 5. Echocardiogram reviewed; normal systolic function 6. Continue nebs as needed; severe pulmonary hypertension 7. O2 per protocol 8. Transfer back to assisted living at discharge 9. Strict blood pressure and blood sugar control 10. GI and DVT prophylaxis - Advance Directives Does patient have a Living Will: Yes Does patient have a Durable POA for Healthcare: Yes - Code Status/Comfort Care Code Status Assessed: Yes (Full code) Critical Care: No Time Spent Managing Pts Care (In Minutes): 55
[2021-12-07] MEDS ORDERED: MUCINEX DM 12HR.SR TAB PO SCH (09:00)
[2021-12-07] MEDS: DONEPEZIL HCL 5 MG TAB PO SCH (10:22)
[2021-12-07] MEDS: APIXABAN 2.5 MG TABLET PO SCH (10:23)
[2021-12-07] MEDS: GABAPENTIN 300 MG CAP PO SCH (10:23)
[2021-12-07] MEDS: AMIODARONE HCL 200 MG TAB PO SCH (10:23)
[2021-12-07] MEDS: CALCITROL 0.25 MCG CAP PO SCH (10:23)
[2021-12-07] MEDS: DOCUSATE NA 100 MG CAP PO SCH (10:23)
[2021-12-07] MEDS: CLOPIDOGREL 75 MG TABLET PO SCH (10:23)
[2021-12-07] MEDS: SPIRONOLACTONE 25 MG TABLET PO SCH (10:24)
[2021-12-07] MEDS: VITAMIN D 5,000 UNIT CAP PO SCH (10:24)
[2021-12-07] MEDS: carvediloL 6.25 MG TAB PO SCH (10:25)
[2021-12-07] MEDS: JUVEN PACKET PO SCH (10:26)
[2021-12-07] MEDS: GLUCERNA SHAKE 237 ML CAN PO SCH (10:26)
[2021-12-07 10:39] LABS: Absolute Lymphocytes (CBC) 1.3 K/uL (0.7-4.9); Hematocrit 33.2 % (39.6-49.0); Lymphocytes % 16.7 % (15.3-44.8); MPV 7.9 fL (7.6-11.3); RBC Red Blood Cell Count 3.98 M/uL (4.33-5.43)
[2021-12-07 10:54] LABS: Potassium 4.2 mmol/L (3.5-5.1)
[2021-12-07] MEDS: SOD FERRIC GLUC COMPLX/SUCROSE 125 MG in NA CHLORIDE 0.9% 100 ML IV SCH (10:55)
[2021-12-07 16:08] VITALS: BP 118/53; TEMP 97.5
[2021-12-07 16:24] VITALS: O2SAT 95
--- NOTE | 2021-12-09 15:16 | PN ---
Date of Progress Note: 12/05/2021 Mr. Mercado is 86. Has been followed by Dr. Parks and by Dr. Cortes and myself for congestive heart demond lure and pneumonia. He has a history of CHF, severe pulmonary hypertension, severe diastolic congest kelly heart failure, aortic valve replacement, coronary artery disease, status post CABG, diabetes, hyp ertension, dyslipidemia, gout, atrial fibrillation, Alzheimer, benign prostatic hypertrophy. The pat ient is still on amiodarone, Eliquis, and Coreg. He is diuresing very well. Antibiotics have been c ontinued. His vital signs on 12/05/2021 were stable. He was in a paced rhythm. He was afebrile. B lood pressure was 125/61. His glucose was still poorly controlled. O2 saturation was 93% on 2 L of nasal cannula. His creatinine is 2.74. No need to repeat another echocardiogram, he just had 1 rece ntly. He continues to be amiodarone, Eliquis, Plavix, Lasix, insulin, Levaquin, Levothroid, steroids , carvedilol, and spironolactone. I agree with his present regimen. We need to watch his creatinine carefully as well. I am concerned he can go home. We will see him in the office in the next 2 week isael URBINA/JOLIE Voice ID: [id number] Report ID: [id number]
== END 2021-12-07 17:04 | disposition home health service (06) | DRG 193 ==
LOC: ER 17:45 → ERHOLD 20:16 → 2ND 21:45
PROVIDERS: ADMIT Hospitalist; ATTEND Hospitalist
DX: J18.9 Pneumonia, unspecified organism (principal); I50.33 Acute on chronic diastolic (congestive) heart failure; I13.0 Hypertensive heart and chronic kidney disease with heart failure and stage 1 through stage 4 chronic kidney disease, or unspecified chronic kidney disease; N18.4 Chronic kidney disease, stage 4 (severe); N17.9 Acute kidney failure, unspecified; I48.20 Chronic atrial fibrillation, unspecified; E44.0 Moderate protein-calorie malnutrition; E11.22 Type 2 diabetes mellitus with diabetic chronic kidney disease; E11.649 Type 2 diabetes mellitus with hypoglycemia without coma; I25.10 Atherosclerotic heart disease of native coronary artery without angina pectoris; M10.9 Gout, unspecified; E03.9 Hypothyroidism, unspecified; E78.5 Hyperlipidemia, unspecified; E87.6 Hypokalemia; I27.20 Pulmonary hypertension, unspecified; N40.1 Benign prostatic hyperplasia with lower urinary tract symptoms; E11.42 Type 2 diabetes mellitus with diabetic polyneuropathy; E83.51 Hypocalcemia; G47.33 Obstructive sleep apnea (adult) (pediatric); L89.620 Pressure ulcer of left heel, unstageable; Z68.27 Body mass index [BMI] 27.0-27.9, adult; G30.9 Alzheimer's disease, unspecified; F02.80 Dementia in other diseases classified elsewhere, unspecified severity, without behavioral disturbance, psychotic disturbance, mood disturbance, and anxiety; Z95.0 Presence of cardiac pacemaker; Z95.5 Presence of coronary angioplasty implant and graft; Z95.2 Presence of prosthetic heart valve; Z95.1 Presence of aortocoronary bypass graft; Z79.4 Long term (current) use of insulin; Z79.01 Long term (current) use of anticoagulants; Z20.822 Contact with and (suspected) exposure to COVID-19
CPT/HCPCS: 36415; 71045; 74176; 80048; 80053; 80076; 81003; 81015; 82570; 82607; 82746; 82947; 83540; 83735; 83880; 84100; 84156; 84466; 84484; 84550; 85025; 85610; 87040; 87086; 87088; 87804; 93005; 94010; 94640; 96365; 97161; 97530; 99285; J1815; J1940; J2270; J2405; J2916; J2930; J7060; U0003

== ENCOUNTER 2021-12-12 17:30 | Inpatient (IN) | payer OTHER, MEDICARE ==
--- OUTSIDE RECORDS SUMMARY | 2021-12-12 17:36 | XMS REPORT | Continuity of Care Document ---
:1935 Author Organization [facility] t Address [address] [place] [address] Care Team Providers Name Role Phone Vianey SUÁREZ Primary Care Physician Unavailable ABBIE Attending Clinician Unavailable LINDA LEIVA Attending Clinician Unavailable FRANKI Attending Clinician Unavailable JOSE ARMANDO Attending Clinician Unavailable Leonid YOU, S Attending Clinician Gladys JAQUEZ Attending Clinician Unavailable LUBNA GONZALEZ Attending Clinician Unavailable JHON ALFRAO Attending Clinician Unavailable INGRID Attending Clinician Unavailable [...] Unavailable MD MARY DOAN Admitting Clinician Unavailable Arsenio_T Admitting Clinician Unavailable FRANKI Admitting Clinician Unavailable ROBERT Admitting Clinician Unavailable MD BAIRON JONES Admitting Clinician Unavailable BRITTANY Admitting Clinician Unavailable KELVIN Admitting Clinician Unavailable Payers Payer Name Policy Type Policy Number Effective Date Expiration Date Gladys luciano MEDICARE PART A AND [id number] 2016 B 00:00:00 MEDICARE A B [id number] 2001 00:00:00 [facility] [id number] 2021 HEALTHCARE 00:00:00 BCBS PPO POS EPO [id number] 2015 CHOICE 00:00:00 Problems Condition Condition Condition Status Onset Resolution Last Treating Co mments Source Name Details Category Date Date Treatment Clinician Date No known No known Disease Unive rs active active ity of problems problems [facility] Allergies, Adverse Reactions, Alerts Allergy Allergy Status Severity Reaction(s) Onset Inactive Treating Comm ents Source Name Type Date Date Clinician NO KNOWN Allergy Active [facility] NO KNOWN Drug Active [facility] ALLERGIE Class ity of S [facility] Social History Social Habit Start Date Stop Date Quantity Comments Source Exposure to 2021-09-02 2021-10-02 Not sure [facility]-CoV-2 00:00:00 14:22:00 [facility] (event) Branch Alcohol intake 2021-10-02 2021-10-02 Current [facility] 00:00:00 00:00:00 non-drinker of [facility] alcohol [place] (finding) Tobacco use and 2017-04-08 2017-04-08 Never used Universit y of exposure 00:00:00 00:00:00 [facility] Sex Assigned At [birth year] Universit y of 00:00:00 00:00:00 [facility] Smoking Status Start Date Stop Date Source Never smoker [facility] Medications Ordered Filled Start Stop Current Ordering Indication Dosage Frequency Signature Comments Components Source Medication Medication Date Date Medication? Clinician (SIG) Name Name triamcinolo 2021- No [id number] 80mg Univers ne 11-27 ity of acetonide 19:45: 18:33 [place] (KENALOG) 00 :00 Medical injection Branch 80 mg triamcinolo 2021- No [id number] 80mg 80 mg, Univers ne 11-27 Intra-claudette ity of acetonide 19:45: 18:33 [...] 8mg Take 8 mg UT (Rozerem) 8 -28 by mouth Heal th MG tablet 16:47: every 50 night. donepezil 2020-0 Yes 10mg Take 10 mg UT (Aricept) 6-28 by mouth Health 10 MG 16:47: every tablet 50 night. torsemide 2020-0 Yes 20mg QD Take 20 mg UT (Demadex) -28 by mouth 1 Heal th 20 MG 16:47: (one) time tablet 50 each day. tamsulosin 2020-0 Yes QD Take by UT (Flomax) 6- mouth 1 Health 0.4 MG 24 16:47: (one) time hr capsule 50 each day. dicyclomine 2020-0 Yes 10mg Q.25D Take 10 mg UT (Bentyl) 10 -28 by mouth 4 He alth MG capsule [...] Do not crush, chew, or split. finasteride 2020-0 Yes TAKE 1 UT (Proscar) [...] DAILY ity of mg tablet 10:04: NEEDED [place] [address] Medical Branch Dexlansopra 2016-07 Yes Take by Un josh zole 0-03 mouth. ity of (DEXILANT) 10:04: [place] [facility] Medical capsule Branch amiodarone 2016-07 Yes 200mg Take 200 Un josh 200 mg 0-03 mg by ity of tablet 10:04: mouth. [place] [address] Medical Branch aspirin 325 2016-07 Yes 325mg Take 325 U nivers mg tablet 0-03 mg by ity of 10:04: mouth. [place] [address] Medical Branch Azelastine 2016-07 Yes Use in Univ ers (ASTEPRO) 0-03 each ity of 0.15 % 10:04: nostril. [place] (205.5 mcg) Medical nasal spray Branch rosuvastati 2016-07 Yes 1 TABLET Un josh n (CRESTOR) 0-03 DAILY ity of 10 mg 09:38: [address] doxazosin 4 2016-07 Yes 2mg Take 2 mg U nivers mg tablet 0-03 by mouth. ity o f 09:38: [address] Branch fosinopril 2016-07 Yes 20mg Take 20 mg U nivers 20 mg 0-03 by mouth. ity of tablet 09:38: [address] cephALEXin Yes TAKE ONE Uni vers 500 mg 9-17 (1) ity of capsule 00:00: [place] 00 BY MOUTH Medical EVERY SIX Branch HOURS FOR 10 DAYS. CONTOUR Yes Univers NEXT STRIPS 8-08 ity of strip 00:00: [address] allopurinol Yes Univer s 100 mg 7-27 ity of tablet 00:00: [address] calcitriol Yes TAKE ONE Uni vers [...] Source Systolic blood 2021-10-02 19:26:00 106 mm[Hg] [facility] Diastolic [facility] 2021-10-02 19:26:00 66 mm[Hg] [facility] Heart rate 2021-10-02 19:26:00 72 /min [facility] Body height 2021-10-02 19:26:00 180.3 cm [facility] Body weight 2021-10-02 19:26:00 90.719 kg [facility] BMI 2021-10-02 19:26:00 27.89 kg/m2 [facility] Oxygen saturation 2021-10-02 19:26:00 97 /min Uni versity [facility] in Arterial blood [facility] Br anch by Pulse oximetry HEIGHT 2021-09-23 [...] Clinicians Facility Department ID 2020-11-13 Outpatient ABBIE [facility] [id number] [place] 15:45:00 VIRAJ [facility] 2019-11-18 Outpatient NYASIAМАРИНАGARRY [facility] CAR 7512 M [facility] 08:31:52 VIRAJ 2021-11-20 2021-11-20 Outpatient EMELY DOAN [facility] [id number] [place] 00:00:00 00:00:[address] 2021-11-05 2021-11-05 Outpatient JOSE ARMANDO, [facility] [id number] [place] 00:00:00 00:00:00 RICHARD Walker Meth [facility] [facility] 2021-10-02 2021-10-02 Office RUPALI Jaquez [id number] [place] [address] 15:30:00 15:31:03 Visit [facility] [id number] y adrian [place] [id number] Anurag as SHALONDA?BLEA [id number] Nh armando [address] MEDICAL OFFICE [facility] 2021-10-02 2021-10-02 Outpatient Anabel LEONID [facility] [id number] Univers 15:30:00 15:31:03 EVELYN [facility] [place] [facility] 2021-09-23 2021-09-28 Inpatient ER SHIEH, [facility] [id number] [facility] 03:10:00 10:36:00 GARRETT 2021-07-30 2021-07-30 Outpatient JOSE ARMANDO, [facility] [id number] [place] 00:00:00 00:00:00 RICHARD 378 Meth zafar 2021-06-27 2021-07-04 Outpatient INGRID, [facility] [id number] [place] 00:00:00 00:00:00 ALBERT [address] 2021-06-05 2021-06-05 Outpatient EMELY DOAN [facility] [id number] [place] 00:00:00 00:00:[address] 2021-06-05 2021-06-05 Outpatient EMELY DOAN [facility] [id number] [place] 00:00:00 00:00:[address] 2021-05-03 2021-05-03 Outpatient JOSE ARMANDO, [facility] [id number] [place] 00:00:00 00:00:00 RICHARD [address] 2021-03-28 2021-03-28 Outpatient JOSE ARMANDO, [facility] [id number] [place] 00:00:00 00:00:00 RICHARD [address] 2021-03-02 2021-03-02 Outpatient EMELY DOAN [facility] [id number] [place] 00:00:00 00:00:[address] 2021-01-12 2021-01-12 Outpatient MAIRA CHEN [facility] [id number] [place] 00:00:00 00:00:[address] 2021-01-03 2021-01-03 Outpatient RADHA, [facility] [id number] [place] 00:00:00 00:00:00 ALEJANDRO [address] 2021-01-03 2021-01-03 Outpatient RADHA, [facility] [id number] [place] 00:00:00 00:00:00 ALEJANDRO [address] 2021-01-01 2021-01-01 Office TRINH Leiva 6400 [id number] 11:18:17 12:10:[address] [id number] 2021-01-01 2021-01-01 Office TRINH Leiva 6400 [id number] [place] 11:18:17 12:10:[address] 350.1.13.58 [facility] [id number] [id number] 2020-12-27 2020-12-27 Telephone TRINH Leiva [facility] [id number] [place] 00:00:00 00:00:00 Viraj SUGAR 350.1.13.58 [facility] [id number] [address] [id number] AND 1 WOMENS 2020-11-10 2020-11-10 Outpatient EMELY DOAN [facility] [id number] [place] 00:00:00 00:00:[address] 2020-11-01 2020-11-01 Outpatient JOSE ARMANDO, [facility] [id number] [place] 00:00:00 00:00:00 RICHARD 504 Meth zafar 2020-10-23 2020-10-27 [place]patient [place] [id number] [place] 00:00:00 00:00:00 PAULY [address] 2020-09-22 2020-09-22 Outpatient EMELY DOAN [facility] [id number] [place] 00:00:00 00:00:[address] 2020-08-29 2020-09-11 Inpatient KRUSE, [facility] 064 [id number] [place] 00:00:00 00:00:00 PAULY [address] 2020-08-25 2020-08-31 Outpatient EMLEY DOAN [facility] [id number] [place] 00:00:00 00:00:[address] 2020-08-15 2020-08-19 Inpatient XU, [facility] 064 [id number] [place] 00:00:00 00:00:00 MARIAH [address] 2020-07-28 2020-07-28 Outpatient EMELY DOAN [facility] [id number] [place] 00:00:00 00:00:[address] 2020-07-28 2020-07-28 Outpatient EMELY DOAN [facility] [id number] [place] 00:00:00 00:00:[address] 2020-07-14 2020-07-14 Outpatient MAIRA CHEN [facility] [id number] [place] 00:00:00 00:00:[address] 2020-07-13 2020-07-13 Outpatient JOSE ARMANDO, [facility] [id number] [place] 00:00:00 00:00:00 RICHARD [address] 2020-07-13 2020-07-13 Outpatient MARIA EUGENIA, [facility] [id number] [place] 00:00:00 00:00:00 SIRAYA [address] 2020-07-12 2020-07-12 Outpatient [facility] [id number] [place] 00:00:00 00:00:[address] 2020-05-26 2020-05-26 Outpatient EMELY DOAN [facility] [id number] [place] 00:00:00 00:00:[address] 2020-05-23 2020-05-23 Outpatient DELAFLOR-SA [facility] [id number] [place] 00:00:00 00:00:00 NTAANA, [address] 2020-05-08 2020-05-18 Inpatient KEENAN, [facility] 060 [id number] [place] 00:00:00 00:00:00 ANETTE [address] 2020-05-05 2020-05-05 Outpatient EMELY DOAN [facility] [id number] [place] 00:00:00 00:00:[address] 2020-05-03 2020-05-03 Outpatient JOSE ARMANDO, [facility] [id number] [place] 00:00:00 00:00:00 RICHARD [address] 2020-04-26 2020-04-26 Outpatient ALIDA [facility] [id number] [place] 00:00:00 00:00:00 ASHRITH [address] 2020-04-24 2020-04-24 Outpatient EMELY DOAN [facility] [id number] [place] 00:00:00 00:00:[address] 2020-04-14 2020-04-14 Outpatient EMELY DOAN [facility] [id number] [place] 00:00:00 00:00:[address] 2020-04-03 2020-04-03 Outpatient Daniel_T VFP VFP [id number] 03-26 [facility] 01:57:00 01:57:00 [id number] Family Practic e 2020-03-17 2020-03-17 Outpatient EMELY DOAN [facility] [id number] [place] 00:00:00 00:00:[address] 2020-03-09 2020-03-09 Outpatient DELAFLOR-SA [facility] [id number] [place] 00:00:00 00:00:00 NTAANA, [address] 2020-02-24 2020-03-02 Inpatient EMELY DOAN [facility] 021 [id number] [place] 00:00:00 00:00:[address] 2020-02-23 2020-02-23 Outpatient EMELY DOAN [facility] [id number] [place] 00:00:00 00:00:[address] 2020-02-11 2020-02-11 Outpatient EMELY DOAN [facility] [id number] [place] 00:00:00 00:00:[address] 2020-02-04 2020-02-04 Outpatient JOSE ARMANDO [facility] [id number] [place] 00:00:00 00:00:00 RICHARD [address] 2020-01-20 2020-01-25 Inpatient SAVANA [facility] [id number] [place] 00:00:00 00:00:00 AMITKUMAR [address] 2020-01-12 2020-01-12 Outpatient CHEN, MAIRA [facility] [id number] [place] 00:00:00 00:00:[address] 2019-12-31 2019-12-31 Outpatient EMELY DOAN [facility] [id number] [place] 00:00:00 00:00:[address] 2019-12-31 2019-12-31 Outpatient EMELY DOAN [facility] [id number] [place] 00:00:00 00:00:[address] 2019-12-27 2019-12-27 Outpatient TRISHA [facility] [id number] [place] 00:00:00 00:00:00 TRISHA [address] 2019-12-17 2019-12-18 Outpatient BRITTANY, [facility] [id number] [place] 00:00:00 00:00:00 MERCY [address] 2019-11-18 2019-11-18 Outpatient KELVIN, [facility] [id number] [place] 00:00:00 00:00:00 MAHWASH [address] 2019-11-04 2019-11-04 Outpatient JOSE ARMANDO, [facility] [id number] [place] 00:00:00 00:00:00 RICHARD [address] 2019-10-19 2019-10-19 Outpatient JOSE ARMANDO, [facility] [id number] [place] 00:00:00 00:00:00 RICHARD [address] 2019-09-17 2019-09-17 Outpatient EMELY DOAN [facility] [id number] [place] 00:00:00 00:00:[address] 2019-09-02 2019-09-09 Inpatient AIXA, [facility] 060 [id number] [place] 00:00:00 00:00:00 PAULY [address] Results Test Description Test Time Test Comments Results Result Comments Source BLOOD CULTURE 2021-09-28 10:00:39 Test Item Value Reference Range Interpretation Comme nts CULTURE (BEAKER) (test code = 1095) No growth in 5 days BLOOD [id number] 10:00:38 Test Item Value Reference Range Interpretation Comments CULTURE (BEAKER) (test No growth in 5 days code = 1095) [id number] 08:17:33 Test Item Value Reference Range Interpretation Comments MAGNESIUM (BEAKER) 1.8 mg/dL 1.5-3.0 Specimen slightly (test code = 627) hemolyzed Special Duty Nurse ID - DSENSONOperator ID - DSENSONOperator ID - DSENSONOperator ID - DSENSONBASIC METABOLIC [id number] 05:35:07 Test Item Value Reference Range Interpretation [...] S NOT APPLICABLE FOR DIALYSIS PATIEN TS. Special Duty Nurse ID - [id number] ID - IRKC82Hwngdtcn ID - UMGR62Qeozrsku ID - JAMM28Xpabtofc ID - XQYG92Llqsbpiz ID - YLBN91Jdlkekke ID - HBPC44Uzbckebu ID - JLOY75Ddvwbssp ID - NTXX81Imilzfbv ID - SAIC01Dcgzndpl ID - LGGF70Tsukbdrw ID - DTLQ57Fsnzfmni ID - WCSG17PFQ W/PLT COUNT & AUTO [id number] 05:04:38 Test Item Value Reference Range Interpretation [...] PERCENT (BEAKER) (test code = 2801) POCT-GLUCOSE [id number] 04:47:27 Test Item Value Reference Range Interpretation Comments POC-GLUCOSE METER 98 mg/dL 70-110 : TESTED A T [facility] [address] (BEAKER) (test code = [address], [address]) [facility] 77 478: Special Duty Nurse/Techni kate ID = [id number] for Michelle Knight POCT-GLUCOSE [id number] 23:00:37 Test Item Value Reference Range Interpretation Comments POC-GLUCOSE METER 100 mg/dL 70-110 : TESTED A T [facility] [address] (BEAKER) (test code [address], = 1538) [place] 407568: Special Duty Nurse/Techni kate ID = [id number] for Michelle Knight POCT-GLUCOSE [id number] 15:20:37 Test Item Value Reference Range Interpretation Comments POC-GLUCOSE METER 126 mg/dL 70-110 H : TESTED A T [facility] [address] (BEAKER) (test code [address], = 1538) [place] 407568: Special Duty Nurse/Techni kate ID = [id number] for Will iams, Caro POCT-GLUCOSE [id number] 11:52:27 Test Item Value Reference Range Interpretation Comments POC-GLUCOSE METER 94 mg/dL 70-110 : TESTED A T [facility] [address] (BEAKER) (test code = [address], 1538) [place] 407568: Special Duty Nurse/Techni kate ID = [id number] for Will iams, Caro POCT-GLUCOSE [id number] 06:47:47 Test Item Value Reference Range Interpretation Comments POC-GLUCOSE METER 92 mg/dL 70-110 : TESTED A T [facility] [address] (BEAKER) (test code = [address], 1538) [place] 407568: Special Duty Nurse/Techni kate ID = [id number] for Bridget Salas BASIC METABOLIC [id number] 05:34:54 Test Item Value Reference Range Interpretation [...] S NOT APPLICABLE FOR DIALYSIS PATIEN TS. Special Duty Nurse ID - NSUVAGIYAOperator ID - NSUVAGIYAOperator ID - NSUVAGIYAOperator ID - NSUVAGIYAOperatorID - NSUVAGIYAOperator ID - NSUVAGIYAOperator ID - NSUVAGIYAOperator ID - NSUVAGIYAOperator ID - NSUVAGIYAOperator ID - NSUVAGIYAOperator ID - NSUVAGIYAOperator ID - NSUVAGIYAOperator ID - NSUVAGIYA CBC W/PLT COUNT & AUTO [id number] 05:03:55 Test Item Value Reference Range Interpretation [...] PERCENT (BEAKER) (test code = 2801) POCT-GLUCOSE [id number] 21:46:46 Test Item Value Reference Range Interpretation Comments POC-GLUCOSE METER 163 mg/dL 70-110 H : TESTED A T [facility] 1317 ([facility]) (test code [facility], = 1538) [place] [address]: Special Duty Nurse/Techni kate ID = [id number] for Ben buckley [place] POCT-GLUCOSE [id number] 17:12:16 Test Item Value Reference Range Interpretation Comments POC-GLUCOSE METER 132 mg/dL 70-110 H : Notified RN/MD: TESTED ([facility]) (test code AT [facility] [address] = 1538) [place] [address]: Special Duty Nurse/Techni kate ID = [id number] for Laws on, Latishia POCT-GLUCOSE [id number] 11:09:45 Test Item Value Reference Range Interpretation Comments POC-GLUCOSE METER 128 mg/dL 70-110 H : Notified RN/MD: TESTED ([facility]) (test code AT [facility] [address] = 1538) [place] [address]: Special Duty Nurse/Techni kate ID = [id number] for [place] on, Latishia BASIC METABOLIC [id number] 10:11:46 Test Item Value Reference Range Interpretation [...] m DATA TO CALCULA TE ESTIMATED GFR. Special Duty Nurse ID - [id number] ID - [id number] ID - EFKYO258Ywfwvlku ID - LTSKT032Fycseswu ID - LZRGY587Bbypkmsa ID - EPDXJ645Ornboyme ID - CZIII073Dxwtpnyb ID - TDQJJ905Qlhglxsp ID - MQTCP476Nlykpwwo ID - [id number] 10:09:12 Test Item Value Reference Range Interpretation Comments MAGNESIUM (BEAKER) (test code = 2.0 mg/dL 1.5-3.0 627) Special Duty Nurse ID - [id number] ID - [id number] ID - [id number] ID - [id number] W/PLT COUNT & AUTO [id number] 09:35:09 Test Item Value Reference Range Interpretation [...] PERCENT (BEAKER) (test code = 2801) POCT-GLUCOSE [id number] 06:09:14 Test Item Value Reference Range Interpretation Comments POC-GLUCOSE METER 84 mg/dL 70-110 : TESTED A T [facility] [address]17 (BEAKER) (test code = [address], 1538) [facility] 77 478: Special Duty Nurse/Techni kate ID = [id number] for Michelle Knight POCT-GLUCOSE [id number] 21:48:15 Test Item Value Reference Range Interpretation Comments POC-GLUCOSE METER 122 mg/dL 70-110 H : TESTED A T [facility] [address]17 (BEAKER) (test code [address], = 1538) [place] [address] 478: Special Duty Nurse/Techni kate ID = [id number] for Bridget Salas POCT-GLUCOSE [id number] 17:30:56 Test Item Value Reference Range Interpretation Comments POC-GLUCOSE METER 78 mg/dL 70-110 : TESTED A T [facility] [address]17 (BEAKER) (test code = [address], 1538) [place] 407568: Special Duty Nurse/Techni kate ID = [id number] for Beka Adorno POCT-GLUCOSE [id number] 11:52:53 Test Item Value Reference Range Interpretation Comments POC-GLUCOSE METER 72 mg/dL 70-110 : TESTED A T [facility] [address]17 (BEAKER) (test code = [address], 1538) [place] 407568: Special Duty Nurse/Techni kate ID = [id number] for Beka Adorno HEPATIC FUNCTION [id number] 06:59:28 Test Item Value Reference Range Interpretation [...] Specimen slightly (test code = 347) hemolyzed Special Duty Nurse ID - [id number] ID - kbnv67Mrgutgmo ID - ezzh72Qklvpzod ID - cmsw25Prfsaugw ID - eafd18Zhfynhqm ID - auzx64Exyshqut ID - yjvc03Poobbeih ID - zebf20Euwqycbo ID - rwed81Srnfdszt ID - nzzy02HTEUE METABOLIC [id number] 06:56:05 Test Item Value Reference Range Interpretation [...] m DATA TO CALCULA TE ESTIMATED GFR. Special Duty Nurse ID - yllk55Lxuqjhhi ID - vgfk29Uekngpqo ID - xvel09Eijwyakm ID - vacv96Lpvimrnr ID - pejf43Jxsdcdsj ID - peqi25Euugxdoo ID - zsgm87Ilkhwxbv ID - yvsf54Ptnnhlcb ID - rdvy32Holhwvrm ID - jzmd34HWO W/PLT COUNT & AUTO [id number] 06:40:28 Test Item Value Reference Range Interpretation [...] PERCENT (BEAKER) (test code = 2801) POCT-GLUCOSE [id number] 05:32:55 Test Item Value Reference Range Interpretation Comments POC-GLUCOSE METER 89 mg/dL 70-110 : Notified RN/MD: TESTED (BEAKER) (test code = AT [facility] [address]) [facility] [address]: Special Duty Nurse/Techni kate ID = [id number] for Maribeth Dickson POCT-GLUCOSE [id number] 17:11:16 Test Item Value Reference Range Interpretation Comments POC-GLUCOSE METER 124 mg/dL 70-110 H : Notified RN/MD: TESTED (BEAKER) (test code AT [facility] [address] = 1538) [facility] [address]: Special Duty Nurse/Techni kate ID = [id number] for Dariel h, Kayleighita POCT-GLUCOSE [id number] 11:57:49 Test Item Value Reference Range Interpretation Comments POC-GLUCOSE METER 164 mg/dL 70-110 H : Notified RN/MD: TESTED (BEAKER) (test code AT [facility] [address] = 1538) [facility] [address]: Special Duty Nurse/Techni kate ID = [id number] for Dariel h, Lorita BASIC METABOLIC [id number] 05:37:52 Test Item Value Reference Range Interpretation [...] m DATA TO CALCULA TE ESTIMATED GFR. Special Duty Nurse ID - LITOOperator ID - LITOOperator ID - LITOOperator ID - LITOOperator ID - LITOOperator ID - LITOOperator ID - LITOOperator ID - LITOOperator ID - LITOOperator ID - LITOHEPATIC FUNCTION [id number] 05:33:43 Test Item Value Reference Range Interpretation [...] Specimen slightly (test code = 347) hemolyzed Special Duty Nurse ID - LITOOperator ID - LITOOperator ID - LITOOperator ID - LITOOperator ID - LITOOperator ID - LITOOperator ID - LITOOperator ID - LITOOperator ID - LITOOperator ID - LITOCBC W/PLT COUNT & AUTO [id number] 05:31:08 Test Item Value Reference Range Interpretation [...] (BEAKER) (test code = 2801) HEMOGLOBIN AND [id number] 22:35:07 Test Item Value Reference Range Interpretation Comments HEMOGLOBIN (BEAKER) (test code = 8.2 GM/DL 13.0-16.8 L 410) HEMATOCRIT (BEAKER) (test code = 26.1 % 36.0-50.0 L 411) POCT-GLUCOSE [id number] 21:10:24 Test Item Value Reference Range Interpretation Comments POC-GLUCOSE METER 158 mg/dL 70-110 H : Notified RN/MD: TESTED (BEAKER) (test code AT [facility] [address] = 1538) GALENIvana [facility] [id number]: Special Duty Nurse/Techni kate ID = [id number] for Prov Maribeth lee U/S, RENAL, [id number] 18:57:00Reason for exam:->elevated Cr [facility] : 1935 Sex: MFINAL [...] hydronephrosis. Simple right renal cyst. Signed: [facility] Verified Date/Time: 09/23/2021 18:57:43 HEMOGLOBIN AND [id number] 18:02:18 Test Item Value Reference Range Interpretation Comments HEMOGLOBIN (BEAKER) (test code = 9.4 GM/DL 13.0-16.8 L 410) HEMATOCRIT (BEAKER) (test code = 29.9 % 36.0-50.0 L 411) TROPONIN [id number] 17:56:55 Test Item Value Reference Range Interpretation [...] failure, acidosis, acute neurological disease, and persistent tachyarrhythmia.Special Duty Nurse ID - [id number]-GLUCOSE METER 2021-09-23 17:52:16 Test Item Value Reference Range Interpretation Comments POC-GLUCOSE METER 118 mg/dL 70-110 H : TESTED A T [facility] [address] (BEAKER) (test code [address], = 1538) [place] [id number]: Special Duty Nurse/Techni kate ID = [id number] for Sarah Teran POCT-GLUCOSE [id number] 11:32:42 Test Item Value Reference Range Interpretation Comments POC-GLUCOSE METER 131 mg/dL 70-110 H : TESTED A T [facility] 1317 (BEAKER) (test code [address], = 1538) [place] [id number]: Special Duty Nurse/Techni kate ID = [id number] for Selene Tinajero TROPONIN [id number] 10:57:24 Test Item Value Reference Range Interpretation [...] failure, acidosis, acute neurological disease, and persistent tachyarrhythmia.Special Duty Nurse ID - JAQUELYNNEHEMOGLOBIN AND [id number] 10:50:03 Test Item Value Reference Range Interpretation Comments HEMOGLOBIN (BEAKER) (test code = 9.1 GM/DL 13.0-16.8 L 410) HEMATOCRIT (BEAKER) (test code = 28.9 % 36.0-50.0 L 411) URINALYSIS W/ REFLEX URINE [id number] 07:28:56 Test Item Value Reference Range Interpretation [...] 1663) SOURCE(BEAKER) (test code = 2795) TROPONIN [id number] 06:35:09 Test Item Value Reference Range Interpretation [...] failure, acidosis, acute neurological disease, and persistent tachyarrhythmia.Special Duty Nurse ID - [id number] 2021-09-23 05:13:31 Test Item Value Reference Range Interpretation Comments HEMOGLOBIN A1C (BEAKER) (test code = 5.7 % 4.3-6.1 368) Special Duty Nurse ID - [id number], CHEST, 1 VIEW, NON [id number] 04:38:00Reason for exam:->baselineShould this be performed at the bedside?->Yes [facility] : 1935 Sex: MFINAL REPORT [...] MDReport Verified Date/Time: 09/23/2021 04:38:32 BASIC METABOLIC [id number] 04:34:59 Test Item Value Reference Range Interpretation [...] m DATA TO CALCULA TE ESTIMATED GFR. Special Duty Nurse ID - [id number] ID - [id number] ID - [id number] ID - [id number] ID - [id number] ID - [id number] ID - [id number] ID - [id number] ID - [id number] ID - [id number] 04:32:57 Test Item Value Reference Range Interpretation Comments MAGNESIUM (BEAKER) 2.2 mg/dL 1.5-3.0 Specimen slightly (test code = 627) hemolyzed Special Duty Nurse ID - [id number] ID - [id number] ID - [id number] ID - [id number] HEPATIC FUNCTION [id number] 04:32:57 Test Item Value Reference Range Interpretation [...] Specimen slightly (test code = 347) hemolyzed Special Duty Nurse ID - [id number] ID - [id number] ID - [id number] ID - [id number] ID - [id number] ID - [id number] ID - [id number] 2021-09-23 04:29:39 Test Item Value Reference Range Interpretation Comments PHOSPHORUS (BEAKER) 4.3 mg/dL 2.5-4.5 Specimen slightly (test code = 604) hemolyzed Special Duty Nurse ID - [id number] 04:25:54 Test Item Value Reference Range Interpretation Comments PROTIME (BEAKER) 12.6 seconds 9.3-12.0 H Final Infor mation (test code = 759) (Auto Outp ut) INR (BEAKER) (test 1.16 See_Comment Final Inf ormation code = 370) (Auto Output) [Automated mess age] The system [employer] generated this result transmitted ref erence range: [...] PERCENT (BEAKER) (test code = 2801) POCT-GLUCOSE [id number] 03:44:38 Test Item Value Reference Range Interpretation Comments POC-GLUCOSE METER 167 mg/dL 70-110 H : TESTED A T [facility] 1317 (BEAKER) (test code [facility], = 1538) [place] [id number]: Special Duty Nurse/Techni kate ID = [id number] for Ahsan Orozco POCT-GLUCOSE [id number] 03:27:46 Test Item Value Reference Range Interpretation Comments POC-GLUCOSE METER 164 mg/dL 70-110 H : TESTED A T [facility] 1317 (BEAKER) ([facility], = 1538) [place] [id number]: Special Duty Nurse/Techni kate ID = [id number] for Kirk Healy SARS-CoV-2 (COVID-19) RNA [Presence] in Respiratory specimen by ANDREW with probe [id number] 11:35:00 Test Item Value Reference Range Interpretation Comments 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 (test code = 70769-2) Whether the patient was admitted to intensive care unit (ICU) for condition of interest (test code = 02310-9) SARS-CoV-2 (COVID-19) RNA [Presence] in Respiratory specimen by ANDREW with probe [id number] 00:24:51 Test Item Value Reference Range Interpretation Comments SARS-CoV-2 (COVID-19) RNA Not detected Not-Detected [Presence] in Respiratory specimen by ANDREW with probe detection (test code = 69181-0) SARS-CoV-2 (COVID-19) RNA [Presence] in Respiratory specimen by ANDREW with probe [id number] 23:06:04 Test Item Value Reference Range Interpretation Comments SARS-CoV-2 (COVID-19) RNA Not detected Not-Detected [Presence] in Respiratory specimen by ANDREW with probe detection (test code = 31225-1) SARS-CoV-2 (COVID-19) RNA [Presence] in Respiratory specimen by ANDREW with probe [id number] 19:57:13 Test Item Value Reference Range Interpretation Comments SARS-CoV-2 (COVID-19) RNA Not detected Not-Detected [Presence] in Respiratory specimen by ANDREW with probe detection (test code = 85078-6) SARS-CoV-2 (COVID-19) RNA [Presence] in Respiratory specimen by ANDREW with probe [id number] 23:40:00 Test Item Value Reference Range Interpretation Comments SARS-CoV-2 (COVID-19) RNA Not detected Not-Detected [Presence] in Respiratory specimen by ANDREW with probe detection (test code = 98330-7) SARS-CoV-2 (COVID-19) RNA [Presence] in Respiratory specimen by ANDREW with probe [id number] 22:07:46 Test Item Value Reference Range Interpretation Comments SARS-CoV-2 (COVID-19) RNA Not detected Not-Detected [Presence] in Respiratory specimen by ANDREW with probe detection (test code = 82913-0) SARS-CoV-2 (COVID-19) RNA [Presence] in Respiratory specimen by ANDREW with probe [id number] 21:47:42 Test Item Value Reference Range Interpretation Comments SARS-CoV-2 (COVID-19) RNA Not detected Not-Detected [Presence] in Respiratory specimen by ANDREW with probe detection (test code = 57158-4) SARS-CoV-2 (COVID-19) RNA [Presence] in Respiratory specimen by ANDREW with probe [id number] 14:31:58 Test Item Value Reference Range Interpretation Comments SARS-CoV-2 (COVID-19) RNA Not detected Not-Detected [Presence] in Respiratory specimen by ANDREW with probe detection (test code = 65764-6)
[2021-12-12 18:02] LABS: Absolute Lymphocytes (CBC) 2.7 K/uL (0.7-4.9); Hematocrit 33.3 % (39.6-49.0); Lymphocytes % 24.2 % (15.3-44.8); MPV 8.3 fL (7.6-11.3)
[2021-12-12 18:26] LABS: Troponin High Sensitivity 23.2 pg/mL (<58.9)
[2021-12-12 18:29] LABS: Potassium 3.9 mmol/L (3.5-5.1)
--- NOTE | 2021-12-12 18:37 | ER ---
Nurse's Notes [facility] Name: Gilmer Mercado Age: 86 yrs Sex: Male : 1935 Arrival Date: 12/12/2021 Time: 17:32 Bed 18 Private MD: Diagnosis: Congestive heart failure;cough;shortness of breath Presentation: 12/12 17:35 Chief complaint: EMS states: called to residential for increased sob. pt was d/c from [address] one week ago for pneumonia. pt alert and able to speak in complete sentences. loose non productive cough noted. 17:35 Coronavirus screen: Vaccine status: Patient reports receiving the 2nd dose of the covid [facility] vaccine. Ebola Screen: Patient negative for fever greater than or equal to 101.5 degrees Fahrenheit, and additional compatible Ebola Virus Disease symptoms Patient denies exposure to infectious person. Patient denies travel to an Ebola-affected area in the 21 days before illness onset. Initial Sepsis Screen: Does the patient meet any 2 criteria? No. Patient's initial sepsis screen is negative. Does the patient have a suspected source of infection? No. Patient's initial sepsis screen is negative. Risk Assessment: Do you want to hurt yourself or someone else? Patient reports no desire to harm self or others. Onset of symptoms was December 12, 2021. 17:35 Method Of Arrival: EMS: [place] [address] 17:35 Acuity: VIN 2 [facility] Historical: - Home Meds: 18:11 allopurinol 100 mg Oral tab [Active]; amiodarone 200 mg Oral tab 1 tab once daily [facility] [Active]; calcitrol [Active]; Eliquis 2.5 mg Oral tab 1 tab 2 times per day [Active]; finasteride 5 mg Oral tab 1 tab once daily [Active]; furosemide 40 mg Oral tab 1 tab once daily [Active]; gabapentin 300 mg Oral cap 2 caps twice a day [Active]; Humulin R 100 unit/mL soln 500 mL 10-20 units daily [Active]; levothyroxine oral 350 mcg tablet daily [Active]; ranitidine HCl 150 mg Oral tab [Active]; simvastatin 20 mg Oral tab 1 tab once daily [Active]; tamsulosin 0.4 mg Oral cp24 1 cap once daily [Active]; Toprol XL 25 mg Oral Tb24 1 tab twice a day [Active]; - PMHx: 18:11 Alzheimer's disease; BPH; Diabetes - IDDM; High Cholesterol; Hypertension; Pacemaker; jh6 PNUEMONIA; - PSHx: 18:11 CABG; pacemaker; jh6 - Immunization history:: Adult Immunizations up to date. - Social history:: Patient/guardian denies using Smoking status: Patient uses Patient/guardian denies using. Screenin:35 Abuse screen: Denies threats or abuse. jh6 17:35 Nutritional screening: No deficits noted. Tuberculosis screening: No symptoms or risk jh6 factors identified. Fall Risk IV access (20 points). Gait- Impaired (20 pts.). Assessment: 17:40 General: Appears in no apparent distress. comfortable, Behavior is calm, cooperative. jh6 17:40 Pain: Complains of pain in back Pain currently is 4 out of 10 on a pain scale. Quality jh6 of pain is described as aching, Pain began years ago. Is continuous, Aggravated by repositioning. Respiratory: Reports shortness of breath at rest since months ago. cough that is non-productive, loose cough for multiple months. Airway is patent Respiratory effort is even, Respiratory pattern is regular, symmetrical, Sputum is thick, Breath sounds with crackles Breath sounds are diminished bilaterally. in right posterior middle lobe and right posterior lower lobe Breath sounds with rales in right posterior middle lobe and right posterior lower lobe Onset: The symptoms/episode began/occurred over thr course of multiple months, the patient has moderate shortness of breath. 18:52 Reassessment: No changes from previously documented assessment. Patient is alert, 6 oriented x 3, equal unlabored respirations, skin warm/dry/pink. 19:26 Reassessment: Patient is alert, oriented x 3, equal unlabored respirations, skin bb warm/dry/pink. pt coughing instructed on need for admit pt agrees to plan of care. 20:54 Reassessment: Patient is alert, oriented x 3, equal unlabored respirations, skin bb warm/dry/pink. pt awaiting room assignment. 21:46 Reassessment: attempted to call report RN unavailable will call back. Notified Zachary Wood SHOT LIGHTER of pt BP 104/41 new orders received fluids started see SEP. 22:29 Reassessment: Patient is alert, oriented x 3, equal unlabored respirations, skin bb warm/dry/pink. BP after bolus now 101/62 MAP 70 Zachary Wood SHOT LIGHTER notified. 22:45 Reassessment: report given to Marcia BARKER for room 201. bb Vital Signs: 17:35 BP 129 / 74; Pulse 76; Resp 20; Temp 97.7(O); Pulse Ox 99% on 2 lpm NC; Weight 87.54 jh6 kg; Height 5 ft. 11 in. (180.34 cm); Pain 4/10; 18:30 BP 128 / 48; Pulse 70; Resp 20; Pulse Ox 98% on 2 lpm NC; Pain 4/10; jh6 19:26 BP 121 / 61; Pulse 70; Resp 20 S; Pulse Ox 100% on 2 lpm NC; bb 20:55 BP 103 / 47; Pulse 70; Resp 20 S; Pulse Ox 99% on 3 lpm NC; bb 21:46 BP 104 / 41; Pulse 70; Resp 16 S; Temp 98.3(O); Pulse Ox 98% on 2 lpm NC; bb 22:30 BP 101 / 62; Pulse 71; Resp 16 S; Pulse Ox 99% on 2 lpm NC; bb 17:35 Body Mass Index 26.92 (87.54 kg, 180.34 cm) [facility] ED Course: 17:32 Patient arrived in ED. ms3 17:32 Daniel Cintron DO is Attending Physician. ms3 17:35 Maintain EMS IV. Dressing intact. Good blood return noted. Site clean \T\ dry. Gauge \T\ 6 site: 22g to l fa. 17:42 Celsa Santos, RN is Primary Nurse. jh6 18:00 Initial lab(s) drawn, by nm, sent to lab. EKG done, by ED staff, reviewed by Daniel Cintron DO. Oxygen administration via nasal cannula \T\ 2L/min Response to oxygen therapy: symptoms improved. 18:11 Triage completed. jh6 18:13 Patient placed in an exam room, on a stretcher, on oxygen, on court monitor, on pulse [facility] oximetry. 18:20 Placed in gown. Bed in low position. Call light in reach. Side rails up X2. jh6 18:27 XRAY Chest (1 view) In Process Unspecified. EDMS 18:36 Joreg Dobson MD is Hospitalizing Provider. ms3 18:57 Vinay Cool MD is Hospitalizing Provider. la1 19:01 COVID swab sent to lab. jh6 21:01 Arm band placed on . bb 21:01 No provider procedures requiring assistance completed. Patient admitted, IV remains in bb place. Administered Medications: 18:50 Drug: Lasix (furosemide) 40 mg Route: IVP; Site: left forearm; 6 21:02 Follow up: Response: No adverse reaction bb 18:51 Drug: HYDROcodone-acetaminophen 5 mg-325 mg 1 tabs Route: PO; 6 19:02 Follow up: Response: No adverse reaction 6 21:58 Drug: NS 0.9% 250 ml Route: IV; Rate: bolus; Site: left forearm; bb 22:30 Follow up: IV Intake: 250ml bb 22:47 Follow up: IV Status: Completed infusion; IV Intake: 250ml bb Intake: 22:30 IV: 250ml; Total: 250ml. bb 22:47 IV: 250ml; Total: 500ml. bb Outcome: 18:36 Decision to Hospitalize by Provider. ms3 21:01 Instructed on the need for admit. bb 22:45 Admitted to Tele accompanied by tech, via stretcher, room 201, with chart. bb 22:45 Condition: stable 22:52 Patient left the ED. Signatures: Dispatcher [employer] Christiane Magana RN RN bb Attema, Lee, BRICK WASHER-C BRICK WASHER-Cla1 Sherri Pitt 5 Daniel Cintron, DO ms3 Celsa Santos RN RN jh6 Corrections: (The following items were deleted from the chart) 19:14 19:03 COVID 19 CPL+MR.LAB.BRZ drawn and sent. [facility] EDMS 21:57 21:46 Reassessment: attempted to call report RN unavailable will call back gisela higgins
--- NOTE | 2021-12-12 18:37 | EDPHYS ---
Physician Documentation [facility] Name: Gilmer Mercado Age: 86 yrs Sex: Male : 1935 Arrival Date: 12/12/2021 Time: 17:32 Bed 18 Private MD: ED Physician Daniel Cintron HPI: 12/12 18:18 This 86 yrs old Male presents to ER via EMS with complaints of cough, shortness of ms3 breath. 18:18 The patient has shortness of breath at rest. Onset: The symptoms/episode began/occurred ms3 acutely, . month(s) ago. Duration: The symptoms are continuous, and are unchanged since they started. The patient's shortness of breath has no apparent modifying factors. Associated signs and symptoms: The patient has no apparent associated signs or symptoms. Severity of symptoms: At their worst the symptoms were severe in the emergency department the symptoms are unchanged. 86-year-old male with past medical history of Alzheimer's disease, BPH, diabetes, high cholesterol, hypertension, pneumonia presents via [facility] for shortness of breath that has been ongoing for months. Patient states he was recently discharged after being hospitalized for pneumonia. Patient denies alleviating or inciting factors. Patient rates his shortness of breath as an 8/10 and states he feels like he cannot breathe. Patient denies fevers, chills.. Historical: - Home Meds: 18:11 allopurinol 100 mg Oral tab [Active]; amiodarone 200 mg Oral tab 1 tab once daily jh6 [Active]; calcitrol [Active]; Eliquis 2.5 mg Oral tab 1 tab 2 times per day [Active]; finasteride 5 mg Oral tab 1 tab once daily [Active]; furosemide 40 mg Oral tab 1 tab once daily [Active]; gabapentin 300 mg Oral cap 2 caps twice a day [Active]; Humulin R 100 unit/mL soln 500 mL 10-20 units daily [Active]; levothyroxine oral 350 mcg tablet daily [Active]; ranitidine HCl 150 mg Oral tab [Active]; simvastatin 20 mg Oral tab 1 tab once daily [Active]; tamsulosin 0.4 mg Oral cp24 1 cap once daily [Active]; Toprol XL 25 mg Oral Tb24 1 tab twice a day [Active]; - PMHx: 18:11 Alzheimer's disease; BPH; Diabetes - IDDM; High Cholesterol; Hypertension; Pacemaker; [facility] PNUEMONIA; - PSHx: 18:11 CABG; pacemaker; [facility] - Immunization history:: Adult Immunizations up to date. - Social history:: Patient/guardian denies using Smoking status: Patient uses Patient/guardian denies using. ROS: 18:20 Constitutional: Negative for fever, and chills. Eyes: Negative for injury, pain, ms3 redness, and discharge, Neck: Negative for injury, pain, and swelling, Cardiovascular: Negative for chest pain, and palpitations. Respiratory: Negative for shortness of breath, cough, wheezing, and pleuritic chest pain, MS/Extremity: Negative for injury and deformity, Skin: Negative for injury, rash, and discoloration. 18:20 Respiratory: Positive for cough, shortness of breath. 18:20 All other systems are negative. Exam: 18:00 ECG was reviewed by the Attending Physician. ms3 18:20 Constitutional: This is a well developed, well nourished patient who is awake, alert, ms3 and in no acute distress. Eyes: Pupils equal round and reactive to light, extra-ocular motions intact. Lids and lashes normal. Conjunctiva and sclera are non-icteric and not injected. Periorbital areas with no swelling, redness, or edema. ENT: Nares patent. No nasal discharge, no septal abnormalities noted. Tympanic membranes are normal and external auditory canals are clear. Oropharynx with no redness, swelling, or masses, exudates, or evidence of obstruction, uvula midline. Mucous membranes moist. Neck: Trachea midline, no cervical lymphadenopathy. Supple, full range of motion without nuchal rigidity, or vertebral point tenderness. No Meningismus. Chest/axilla: Normal chest wall appearance and motion. Nontender with no deformity. Cardiovascular: Regular rate and rhythm with a normal S1 and S2. No gallops, murmurs, or rubs. Normal PMI, no JVD. No pulse deficits. Abdomen/GI: Soft, non-tender, with normal bowel sounds. No distension or tympany. No guarding or rebound. No evidence of tenderness throughout. 18:20 Skin: Warm, dry with normal turgor. Normal color with no rashes, no lesions, and no evidence of cellulitis. Psych: Awake, alert, with orientation to person, place and time. Behavior, mood, and affect are within normal limits. 18:20 Respiratory: the patient does not display signs of respiratory distress, Respirations: normal, Breath sounds: rales, that are moderate, are heard in the right posterior lower lobe. Vital Signs: 17:35 BP 129 / 74; Pulse 76; Resp 20; Temp 97.7(O); Pulse Ox 99% on 2 lpm NC; Weight 87.54 jh6 kg; Height 5 ft. 11 in. (180.34 cm); Pain 4/10; 18:30 BP 128 / 48; Pulse 70; Resp 20; Pulse Ox 98% on 2 lpm NC; Pain 4/10; jh6 19:26 BP 121 / 61; Pulse 70; Resp 20 S; Pulse Ox 100% on 2 lpm NC; bb 20:55 BP 103 / 47; Pulse 70; Resp 20 S; Pulse Ox 99% on 3 lpm NC; bb 21:46 BP 104 / 41; Pulse 70; Resp 16 S; Temp 98.3(O); Pulse Ox 98% on 2 lpm NC; bb 22:30 BP 101 / 62; Pulse 71; Resp 16 S; Pulse Ox 99% on 2 lpm NC; bb 17:35 Body Mass Index 26.92 (87.54 kg, 180.34 cm) jh6 MDM: 17:32 Patient medically screened. ms3 18:20 Differential diagnosis: Anemia CHF exacerbation, pneumonia. ms3 18:37 Data reviewed: vital signs, nurses notes, lab test result(s), EKG, radiologic studies, ms3 and as a result, I will admit patient. Counseling: I had a detailed discussion with the patient and/or guardian regarding: the historical points, exam findings, and any diagnostic results supporting the discharge/admit diagnosis, lab results, radiology results, the need for further work-up and treatment in the hospital. ED course: Discussed case with ANDREA Sharma, and he accepts patient as observation on behalf of Dr Dosbon. All questions answered. Discussed plan for admission with patient and patient understands/ agrees with plan. Patient remains in stable condition.. 12/12 17:41 Order name: Basic Metabolic Panel; Complete Time: 18:30 ms3 12/12 17:41 Order name: CBC with Diff; Complete Time: 18:30 ms3 08 17:41 Order name: NT PRO-BNP; Complete Time: 18:30 ms3 08 17:41 Order name: Troponin HS; Complete Time: 18:30 ms3 08 19:12 Order name: Blood Culture Adult (2) la1 12/12 17:41 Order name: XRAY Chest (1 view); Complete Time: 20:04 ms3 12/12 17:41 Order name: EKG; Complete Time: 17:41 ms3 12/12 19:12 Order name: Procalcitonin la1 12/12 19:12 Order name: Lactate la1 12/12 19:14 Order name: SARS-COV-2 RT PCR EDMS 12/12 17:41 Order name: Cardiac monitoring; Complete Time: 18:06 ms3 08 17:41 Order name: EKG - Nurse/Tech; Complete Time: 18:06 ms3 08 17:41 Order name: IV Saline Lock; Complete Time: 17:42 ms3 12/12 17:41 Order name: Labs collected and sent; Complete Time: 18:06 ms3 08 17:41 Order name: O2 Per Protocol; Complete Time: 18:06 ms3 08 17:41 Order name: O2 Sat Monitoring; Complete Time: 18:06 ms3 EC:00 Rate is 72 beats/min. Rhythm is regular. Clinical impression: Paced. Interpreted by me. ms3 Administered Medications: 18:50 Drug: Lasix (furosemide) 40 mg Route: IVP; Site: left forearm; 6 21:02 Follow up: Response: No adverse reaction bb 18:51 Drug: HYDROcodone-acetaminophen 5 mg-325 mg 1 tabs Route: PO; 6 19:02 Follow up: Response: No adverse reaction 6 21:58 Drug: NS 0.9% 250 ml Route: IV; Rate: bolus; Site: left forearm; bb 22:30 Follow up: IV Intake: 250ml bb 22:47 Follow up: IV Status: Completed infusion; IV Intake: 250ml bb Disposition Summary: 12/12/21 18:36 Hospitalization Ordered Hospitalization Status: Observation ms3 Location: Telemetry/MedSurg (observation) ms3 Condition: Stable ms3 Problem: new ms3 Symptoms: are unchanged ms3 Bed/Room Type: Standard ms3 Provider: Vinay Cool(12/12/21 18:57) la1 Room Assignment: 201(12/12/21 21:31) cg Diagnosis - Congestive heart failure ms3 - cough ms3 - shortness of breath ms3 Forms: - Medication Reconciliation Form ms3 - SBAR form ms3 Signatures: Dispatcher [employer] EDMS Christiane Haro, RN RN bb Zachary Wood, CARROTING MACHINE OFFBEARER-C CARROTING MACHINE OFFBEARER-Cla1 Oly Rosa RN RN cg Daniel Cintron DO DO ms3 Celsa Santos RN RN jh6 Corrections: (The following items were deleted from the chart) 18:57 18:36 Jorge Dobson ms3 la1 19:14 18:52 COVID 19 CPL+MRANGELICABRZ ordered. EDNY EDNY 21:31 18:36 ms3 cg
[2021-12-12] MEDS ORDERED: HYDROCODONE/APAP 5/325 MG TAB ONE (18:50)
[2021-12-12] MEDS ORDERED: FUROSEMIDE 40 MG/4 ML VIAL ONE (18:51)
--- NOTE | 2021-12-12 19:52 | RAD REPORT ---
EXAM DESCRIPTION: Shital Single View12/12/2021 6:25 pm CLINICAL HISTORY: Cough COMPARISON: December 06, 2021 FINDINGS: Mild bilateral pulmonary opacities. The heart is moderately enlarged. Pacemaker leads are in place. IMPRESSION: Mild CHF
--- NOTE | 2021-12-12 20:26 | P.HP ---
Certification for Inpatient Patient admitted to: Observation With expected LOS: <2 Midnights Patient will require the following post-hospital care: None Practitioner: I am a practitioner with admitting privileges, knowledge of patient current condition, hospital course, and medical plan of care. Services: Services provided to patient in accordance with Admission requirements found in Title 42 Section 412.3 of the Code of Federal Regulations Patient History Date of Service: 12/12/21 Reason for admission: CHF exacerbation History of Present Illness: 86-year-old male history of chronic diastolic congestive heart failure, CKD 4, A. fib, diabetes, hypertension and dementia [facility], cough. Patient reports that ever since he was discharged from the hospital he becoming more and more short of breath with continuing dry cough. Patient was evaluated here in the emergency department his labs were significant for elevated BNP, chest x-ray demonstrating CHF pattern, he does have pitting edema to lower extremities on exam. ED provider wishes to admit for further evaluation and management of CHF exacerbation. Allergies No Known Allergies Allergy (Verified 10/24/21 07:23) Home Medications: Amiodarone HCl [Cordarone*] 200 mg PO DAILY tab 08/17/21 Donepezil [Aricept*] 10 mg PO BEDTIME tab 08/17/21 Insulin -Regular Human [Novolin -R*] See Protocol SQ ACHS ml 08/17/21 Ondansetron [Zofran (Odt)*] 4 mg PO Q4H PRN tab 08/17/21 Tamsulosin [Flomax*] 0.4 mg PO DAILY cap 08/17/21 Tresiba 40 unit SQ DAILY 08/17/21 icosapent ethyL [Vascepa 1 gm Cap] 1 gm PO BID cap 08/17/21 Albuterol Sulfate [Albuterol Sulfate Hfa] 2 puff IH Q4HR 12/03/21 Apixaban [Eliquis] 2.5 mg PO BID 12/03/21 Brompheniramine/Pseudoephed/Dm [Wfhcwhbk-Bai-Mp 2-30-10 mg/5Ml] 5 ml PO Q4HR PRN 12/03/21 Cefdinir [Cefdinir*] 300 mg PO BID 12/03/21 Cetirizine HCl [Zyrtec*] 5 mg PO DAILY 12/03/21 Clopidogrel Bisulfate [Plavix*] 75 mg PO DAILY 12/03/21 Colesevelam [Welchol*] 625 mg PO BID 12/03/21 Gabapentin 300 mg PO BID 12/03/21 Levothyroxine [Synthroid*] 0.15 mg PO 0600 12/03/21 Pantoprazole [Protonix Tab*] 40 mg PO 0800 12/03/21 Ramelteon 8 mg PO BEDTIME 12/03/21 Torsemide [Demadex*] 20 mg PO BID 12/03/21 carvediloL [Carvedilol] 6.25 mg PO BID 12/03/21 methocarbamoL [Methocarbamol] 500 mg PO BEDTIME PRN 12/03/21 Benzonatate [Tessalon Perle*] 100 mg PO TID PRN #60 cap 12/07/21 Cefdinir [Omnicef] 300 mg PO BID #20 capsule 12/07/21 Glucerna Shake [Glucerna*] 237 ml PO BID #60 can 12/07/21 Berhane [Berhane*] 1 pkt PO BID #60 powd.pack 12/07/21 Levothyroxine [Synthroid*] 0.15 mg PO DAILYAC #30 tab 12/07/21 Melatonin 5 mg PO BEDTIME PRN PRN #30 tablet 12/07/21 Spironolactone [Aldactone*] 25 mg PO DAILY #30 tab 12/07/21 - Past Medical/Surgical History Diabetic: Yes -: Diabetes mellitus type 2 -: Hypertension -: Hyperlipidemia -: Aortic stenosis requiring percutaneous replacement, December 2015 -: 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 -: Urinary retention -: BPH -: Gout -: Hypothyroidism -: GERD -: Atrial fibrillation -: Thyroidectomy -: CABG x4 vessels -: 2 cardiac stents -: Aortic valve replacement percutaneously -: Cholecystectomy Psychosocial/ Personal History: Currently resides at assisted living facility - Family History Father -: Heart disease Brother -: Heart disease - Social History Alcohol use: No CD- Drugs: No Caffeine use: No Place of Residence: Custodial Review of Systems 10-point ROS is otherwise unremarkable Respiratory: Cough, Shortness of Breath Cardiovascular: Edema Physical Examination - Physical Exam General: Alert, In no apparent distress, Oriented x3 HEENT: Atraumatic, PERRLA, Mucous membr. moist/pink, EOMI, Sclerae nonicteric Neck: Supple, 2+ carotid pulse no bruit, No LAD, Without JVD or thyroid abnormality Respiratory: Diminished, Crackles/rales Cardiovascular: Edema (1+ pitting edema bilateral lower extremities), Irregular heart rate/rhythm (A. fib, rate controlled) Gastrointestinal: Normal bowel sounds, No tenderness Musculoskeletal: No tenderness Integumentary: No rashes Neurological: Normal speech, Normal strength at 5/5 x4 extr, Normal tone, Normal affect - Studies Laboratory Data (last 24 hrs) 12/12/21 17:47: WBC 11.3 H D, Hgb 10.3 L, Hct 33.3 L, Plt Count 163 12/12/21 17:47: Sodium 136, Potassium 3.9, BUN 45 H D, Creatinine 2.44 H, Glucose 187 H Assessment and Plan - Plan Assessment: Dyspnea, pedal edema secondary to acute on chronic diastolic congestive heart failure Atrial fibrillation on chronic anticoagulation therapy Diabetes mellitus type 2insulin-dependent CKD 4 Hypertension Hyperlipidemia Dementia Plan: Dyspnea, pedal edema secondary to acute on chronic diastolic congestive heart failure: Continue with IV Lasix, 1500 cc/day fluid striction, daily weights. Anticipate clinical improvement over the course next 24 to 48 hours. Patient with persistent cough was treated for pneumonia previously chest x-ray does not demonstrate pneumonia at this time. Continue with incentive spirometry. Atrial fibrillation on chronic anticoagulation therapy: Monitor on telemetry, continue home medications including Eliquis. Diabetes mellitus type 2insulin-dependent: ACH S Accu-Chek, sliding scale insulin. CKD 4: Stable, consult nephrology given CKD 4 with need for diuresis related to heart failure. Hypertension: Continue home medications Hyperlipidemia: Continue home medications Dementia: Continue home medications DVT PPX: Eliquis Code status: Full Discharge Plan: Home Plan to discharge in: 24 Hours - Advance Directives Does patient have a Living Will: Yes Does patient have a Durable POA for Healthcare: Yes - Code Status/Comfort Care Code Status Assessed: Yes (Full code) Critical Care: No Time Spent Managing Pts Care (In Minutes): 55
[2021-12-12] MEDS ORDERED: NA CHLORIDE 0.9% 250 ML ONE (21:59)
[2021-12-12] MEDS ORDERED: ALBUTEROL 2.5 MG/3 ML NEB SOL NEB PRN (22:52)
[2021-12-12] MEDS ORDERED: ONDANSETRON 4 MG/2 ML VIAL IV PRN (22:52)
[2021-12-12 23:37] VITALS: BMI 28.0
[2021-12-13] MEDS: BENZONATATE 100 MG CAP PO PRN ×2 (00:41→10:48)
[2021-12-13] MEDS: MELATONIN 5 MG TABLET PO PRN (00:48)
[2021-12-13 06:22] LABS: Absolute Lymphocytes (CBC) 2.4 K/uL (0.7-4.9); Hematocrit 31.9 % (39.6-49.0); Lymphocytes % 32.4 % (15.3-44.8); MPV 7.9 fL (7.6-11.3); RBC Red Blood Cell Count 3.83 M/uL (4.33-5.43)
[2021-12-13 06:42] LABS: Albumin 2.5 g/dL (3.4-5.0); Bilirubin Total 0.6 mg/dL (0.2-1.0); Potassium 3.6 mmol/L (3.5-5.1); Protein, Total 6.3 g/dL (6.4-8.2)
[2021-12-13] MEDS: INSULIN -REGULAR HUMAN 50 UNIT/0.5 ML ML SQ SCH ×4 (07:30→20:34)
[2021-12-13 08:19] LABS: Platelet Estimate DECR; White Blood Cell Scan OK (OK)
[2021-12-13 08:20] LABS: Anisocytosis 1+; Blood Morphology Comment NOTED (NOT SEEN)
[2021-12-13] MEDS ORDERED: FUROSEMIDE 40 MG/4 ML VIAL IV SCH (09:00)
[2021-12-13] MEDS ORDERED: APIXABAN 5 MG TABLET PO SCH (09:00)
[2021-12-13] MEDS: APIXABAN 2.5 MG TABLET PO SCH ×2 (10:43→20:37)
[2021-12-13] MEDS: MUCINEX DM 12HR.SR TAB PO PRN (10:49)
[2021-12-13] MEDS: MORPHINE 2 MG/ML SYR IV PRN (13:50)
--- NOTE | 2021-12-13 14:19 | EKG ---
Test Date: 2021-12-12 Test Time: 18:00:43 Vp Talent Management: JERRY MEASUREMENT RESULTS: Intervals: Rate: 72 NM: 126 QRSD: 176 QT: 506 QTc: 554 [place]: P: 62 NM: 126 QRS: 266 T: 87 INTERPRETIVE STATEMENTS: Atrial-sensed ventricular-paced rhythm Abnormal ECG Compared to ECG 12/02/2021 18:28:59 AV dual-paced complex(es) or rhythm no longer present Electronically Signed On 12-13-21 14:18:48 CDT by Darrick Cortes
--- NOTE | 2021-12-13 14:40 | CON ---
Date of Consultation: 12/13/2021 Reason For Consultation: Chronic kidney disease. History Of Present Illness: Mr. Mercado is an 86-year-old male with past medical history significant f or history of chronic kidney disease, who presented to [facility] because of persistent shor tness of breath and cough associated with paroxysmal nocturnal dyspnea and orthopnea as well. The pa aliza has chronic diastolic congestive heart failure, stage IV CKD, atrial fibrillation, and diabetes . The patient was just recently discharged from the hospital for CHF exacerbation. However, he noti aman worsening shortness of breath and dry cough and hence he was brought into the emergency room. est x-ray at the time of admission showed CHF pattern with pulmonary edema. He was admitted for furt her management of CHF exacerbation and Nephrology is being consulted for evaluation of chronic kidney disease. Past Medical History: Significant for history of type 2 diabetes, hypertension, hyperlipidemia, aort ic stenosis requiring TAVR back in December 2015, history of coronary artery bypass grafting x4, urinary retention, BPH, gout, hypothyroidism, atrial fibrillation, thyroidectomy, history of cholecystectomy. Social History: Currently living at an assisted living facility. Family History: Noncontributory. No history of alcohol or drug abuse reported. Review of Systems: Positive for shortness of breath, orthopnea, paroxysmal nocturnal dyspnea, cough which is dry, and so me respiratory distress. Reports decreased appetite and weakness and debility. All other review of systems are negative. Physical Examination: Vital Signs: At this time are showing temperature of 97.4, pulse rate of 69, respiratory rate of 16, and blood pressure 117/51. General: He appears in opxz-lt-jolarhje distress with some severe coughing. HEENT: Shows atraumati c head. Lungs: Auscultation of the lungs revealed bilateral crackles in bilateral lung weir associated wit h some wheezing. JVD was noted. Heart: Auscultation of the heart revealed irregular rate and rhythm. Abdomen: Soft and nontender. Extremities: Showed no evidence of edema. Laboratory Data: At this time is showing creatinine of 2.1, improving from 2.44. Sodium, potassium, and other electrolytes were within normal limits. CBC showing an anemia of chronic disease with a h emoglobin of 9.9, hematocrit 31.9, and platelet count of 137. Blood cultures have been sent. Chest x-ray done at the time of admission yesterday is showing mild C HF pattern with mild bilateral pulmonary opacities. Current Medications: Include apixaban 2.5 mg b.i.d., Lasix 40 mg IV b.i.d., albuterol p.r.n. Impression: 1.Ofuui-pa-adymkcm chronic kidney disease with possible cardiorenal syndrome. Baseline creatinine r anges from around 2 to 2.5, currently at baseline. The patient is currently getting diuresed with La six. Will possibly benefit from pulmonary toilet and improving respiratory status. 2.Respiratory distress with cough, likely secondary to combination of congestive heart failure as we ll as some pneumonia. The patient may benefit from some antibiotics also. 3.Acute congestive heart failure exacerbation. Plan as outlined above. 4.Anemia secondary to chronic disease. Continue to monitor. 5.Type 2 diabetes. Continue insulin per protocol. 6.Severe debility and weakness. Will benefit from physical therapy while he remains in the hospital as long as he is able to participate. Plan: The patient's renal function is overall stable. We will increase Lasix dose to improve diures is. Consider adding antibiotics to treat pneumonia as well, possible healthcare-associated pneumonia . Follow up closely and we will avoid further hypotension and nephrotoxins. Thank you very much for this consultation. Please do not hesitate to call us with any questions or concerns. SHELLY/JOLIE Voice ID: [id number] Report ID: [id number]
[2021-12-13] MEDS: FUROSEMIDE 40 MG/4 ML VIAL IV SCH (16:54)
[2021-12-13] MEDS: JUVEN PACKET PO SCH (20:37)
[2021-12-14] MEDS: FUROSEMIDE 40 MG/4 ML VIAL IV SCH ×3 (00:32→10:22)
[2021-12-14 06:37] LABS: Albumin 2.6 g/dL (3.4-5.0); Bilirubin Total 0.7 mg/dL (0.2-1.0); Protein, Total 6.6 g/dL (6.4-8.2)
[2021-12-14] MEDS: INSULIN -REGULAR HUMAN 50 UNIT/0.5 ML ML SQ SCH ×4 (07:30→21:14)
[2021-12-14] MEDS: APIXABAN 2.5 MG TABLET PO SCH ×2 (10:21→21:15)
[2021-12-14] MEDS: JUVEN PACKET PO SCH ×2 (10:22→21:16)
[2021-12-14] MEDS: BENZONATATE 100 MG CAP PO PRN ×2 (10:37→21:26)
[2021-12-14] MEDS: MUCINEX DM 12HR.SR TAB PO PRN (10:37)
[2021-12-14 10:54] LABS: Hematocrit 34.7 % (39.6-49.0); MPV 8.1 fL (7.6-11.3); RBC Red Blood Cell Count 4.16 M/uL (4.33-5.43)
[2021-12-14] MEDS ORDERED: AZITHROMYCIN 250 MG TAB PO ONE (12:47)
--- NOTE | 2021-12-14 13:37 | RAD REPORT ---
EXAM DESCRIPTION: RAD - Chest Single View - 12/14/2021 1:21 pm CLINICAL HISTORY: Shortness of breath COMPARISON: Portable 12/12/2021 TECHNIQUE: AP portable chest image was obtained 12/14/2021 1:21 pm . FINDINGS: Lung volumes are low. Interstitial and patchy alveolar opacities are present less prominen t than seen previously. Pacemaker/ defibrillator remains in place. Heart size has decreased. Central vasculature has improved . Trachea remains in the midline. No measurable pleural effusion and no pneumothorax. No acute bony abnormality seen. No acute aortic f indings suspected. IMPRESSION: Significant improvement in the CHF/volume overload pattern seen December 12. No new or progressive finding.
[2021-12-14] MEDS: MORPHINE 2 MG/ML SYR IV PRN (13:59)
[2021-12-14] MEDS: CEFTRIAXONE 1,000 MG in NA CHLORIDE 0.9% 50 ML IVPB SCH (14:04)
--- NOTE | 2021-12-14 14:31 | PN ---
Date of Progress Note: 12/14/2021 Subjective: The patient was seen and examined at bedside. He is doing better. His shortness of chester ath and cough are improving per patient. No overnight events were noted. Physical Examination: Vital signs: Have been reviewed and are stable. General: He appears in no acute distress. HEENT: Atraumatic head. No JVD was noted. Lungs: Auscultation of the lungs were clear with diminished breath sounds at bases. Abdomen: Soft and nontender. He is saturating 97% on 2 L of nasal cannula oxygen. Laboratory Data: At this time are showing creatinine of 1.9, BUN of 47. CBC showing stable hemoglob in, hematocrit, and platelet count. Current Medications: Have been reviewed in detail. Impression: 1.Acute on chronic renal insufficiency secondary to acute tubular necrosis, improving at this time. 2.Acute congestive heart failure exacerbation. Continue IV diuresis. 3.Cough. Continue Mucinex. 4.History of atrial fibrillation. Continue Eliquis for anticoagulation and currently rate controlle d. Plan: The patient is overall doing okay at this time. Continue all medications and plan of care. C ontinue IV diuresis and followup. VV/MODL Voice ID: [id number] Report ID: [id number]
--- NOTE | 2021-12-14 17:41 | P.PN ---
Subjective Date of Service: 12/14/21 Chief Complaint: CHF exacerbation Subjective: Improving Physical Examination - Vital Signs Temperature: 97.9 F Blood Pressure: 149/64 Pulse: 78 Respirations: 18 Pulse Ox (%): 100 - Physical Exam General: Alert, Oriented x3 HEENT: Atraumatic, Normocephalic Neck: Supple Respiratory: Diminished Cardiovascular: Regular rate/rhythm, Normal S1 S2 Gastrointestinal: Soft and benign Musculoskeletal: No swelling Neurological: Normal speech, Normal strength at 5/5 x4 extr - Studies Microbiology Data (last 24 hrs): 12/12/21 20:46 Blood - Blood Anaerobic Blood Culture - Final 12/12/21 20:39 Blood - Blood Anaerobic Blood Culture - Final Assessment And Plan - Plan Assessment: Dyspnea, pedal edema secondary to acute on chronic diastolic congestive heart failure Atrial fibrillation on chronic anticoagulation therapy Diabetes mellitus type 2insulin-dependent CKD 4 Hypertension Hyperlipidemia Dementia Plan: Dyspnea, pedal edema secondary to acute on chronic diastolic congestive heart failure: Still very sob. We will continue with IV Lasix, 1500 cc/day fluid striction, daily weights. Nephrology on board. Atrial fibrillation on chronic anticoagulation therapy: Monitor on telemetry, continue home medications including Eliquis. Diabetes mellitus type 2insulin-dependent: We will continue sliding scale insulin. We will continue carb restricted diet. CKD 4: Stable creatinine level. Nephrology following for suspicion for cardiorenal syndrome. Hypertension: Continue home medications. Hyperlipidemia: Continue home medications. Dementia: Continue home medications. DVT PPX: Eliquis. Code status: Full Discharge Plan: Home Plan to discharge in: 24 Hours
--- NOTE | 2021-12-14 17:42 | P.PN ---
Subjective Date of Service: 12/14/21 Chief Complaint: CHF exacerbation Subjective: No new changes, Improving Physical Examination - Vital Signs Temperature: 97.9 F Blood Pressure: 149/64 Pulse: 78 Respirations: 18 Pulse Ox (%): 100 - Physical Exam General: Alert, Oriented x3 HEENT: Atraumatic, Normocephalic Neck: Supple Respiratory: Normal air movement Cardiovascular: Regular rate/rhythm, Normal S1 S2 Gastrointestinal: Soft and benign Musculoskeletal: No swelling Neurological: Normal speech, Normal strength at 5/5 x4 extr - Studies Microbiology Data (last 24 hrs): 12/12/21 20:46 Blood - Blood Anaerobic Blood Culture - Final 12/12/21 20:39 Blood - Blood Anaerobic Blood Culture - Final Assessment And Plan - Plan Assessment: Dyspnea, pedal edema secondary to acute on chronic diastolic congestive heart failure Atrial fibrillation on chronic anticoagulation therapy Diabetes mellitus type 2insulin-dependent CKD 4 Hypertension Hyperlipidemia Dementia Plan: Dyspnea, pedal edema secondary to acute on chronic diastolic congestive heart failure: Still sob but improving. We will continue with IV Lasix, 1500 cc/day fluid striction, daily weights. Lasix to be continued. Nephrology on board. Atrial fibrillation on chronic anticoagulation therapy: Monitor on telemetry, continue home medications including Eliquis. Diabetes mellitus type 2insulin-dependent: We will continue sliding scale insulin. We will continue carb restricted diet. CKD 4: Stable creatinine level. Nephrology following for suspicion for cardiorenal syndrome. Hypertension: Continue home medications. Hyperlipidemia: Continue home medications. Dementia: Continue home medications. DVT PPX: Eliquis. Code status: Full Discharge Plan: Home Plan to discharge in: 24 Hours
[2021-12-14] MEDS: MELATONIN 5 MG TABLET PO PRN (21:15)
[2021-12-15] MEDS: FUROSEMIDE 40 MG/4 ML VIAL IV SCH ×3 (00:15→17:06)
[2021-12-15] MEDS: INSULIN -REGULAR HUMAN 50 UNIT/0.5 ML ML SQ SCH ×4 (07:30→21:19)
[2021-12-15] MEDS: JUVEN PACKET PO SCH ×2 (10:31→21:18)
[2021-12-15] MEDS: CEFTRIAXONE 1,000 MG in NA CHLORIDE 0.9% 50 ML IVPB SCH (10:31)
[2021-12-15] MEDS: AZITHROMYCIN 250 MG TAB PO SCH (10:32)
[2021-12-15] MEDS: APIXABAN 2.5 MG TABLET PO SCH ×2 (10:33→21:19)
--- NOTE | 2021-12-15 16:23 | P.PN ---
Subjective Date of Service: 12/15/21 Chief Complaint: CHF exacerbation Subjective: No new changes, Improving Physical Examination - Vital Signs Temperature: 97.6 F Blood Pressure: 121/58 Pulse: 75 Respirations: 18 Pulse Ox (%): 94 - Physical Exam General: Alert, Oriented x3 HEENT: Atraumatic, Normocephalic Neck: Supple Respiratory: Normal air movement Cardiovascular: Regular rate/rhythm, Normal S1 S2 Gastrointestinal: Soft and benign Musculoskeletal: No swelling Neurological: Normal speech Assessment And Plan - Plan Assessment: Dyspnea, pedal edema secondary to acute on chronic diastolic congestive heart failure Atrial fibrillation on chronic anticoagulation therapy Diabetes mellitus type 2insulin-dependent CKD 4 Hypertension Hyperlipidemia Dementia Plan: Dyspnea, pedal edema secondary to acute on chronic diastolic congestive heart failure: Much improved. We will continue with IV Lasix, 1500 cc/day fluid striction, daily weights. Lasix to be continued. Nephrology on board. Atrial fibrillation on chronic anticoagulation therapy: Monitor on telemetry, continue home medications including Eliquis. Diabetes mellitus type 2insulin-dependent: We will continue sliding scale insulin. We will continue carb restricted diet. CKD 4: Stable creatinine level. Nephrology following for suspicion for cardiorenal syndrome. Hypertension: Continue home medications. Hyperlipidemia: Continue home medications. Dementia: Continue home medications. Pneumonia: he is much better with empiric rocephin and azithromycin therapy. we will follow closely. DVT PPX: Eliquis. Code status: Full Discharge Plan: Home Plan to discharge in: 24 Hours
--- NOTE | 2021-12-15 21:29 | PN ---
Date of Progress Note: 12/15/2021 Subjective: The patient is seen at the bedside. No overnight events reported. The patient is incon tinent, no output measured. The patient's condition is mostly unchanged. Objective: Vital Signs: Blood pressure is 146/57, pulse 75, afebrile. General: No acute distress, on 2 L nasal cannula. Heart: Regular rate and rhythm. No murmurs, rubs, or gallops. Lungs: Diminished breath sounds at bases. Abdomen: Soft, nontender, nondistended. Extremities: With 1+ edema. Laboratory Data: From today is not drawn. Current Medications: Reviewed. Impression: 1.Acute kidney injury in the setting of cardiorenal syndrome. 2.Acute on chronic congestive heart failure exacerbation. 3.Atrial fibrillation. 4.Type 2 diabetes. 5.Pneumonia. Plan: Continue current rate of diuresis. Maintain potassium greater than 4 and magnesium greater th an 2. Monitor daily weights. We will continue to follow. /JOLIE Voice ID: [id number] Report ID: [id number]
[2021-12-16] MEDS: FUROSEMIDE 40 MG/4 ML VIAL IV SCH ×3 (00:48→17:12)
[2021-12-16 06:55] LABS: Magnesium 2.3 mg/dL (1.8-2.4); Potassium 3.7 mmol/L (3.5-5.1)
[2021-12-16] MEDS: INSULIN -REGULAR HUMAN 50 UNIT/0.5 ML ML SQ SCH ×4 (07:30→20:55)
[2021-12-16] MEDS ORDERED: POTASSIUM 25 MEQ EFFERV TAB PO ONE (09:00)
[2021-12-16] MEDS ORDERED: POTASSIUM CL SA 10 MEQ TAB PO ONE (10:38)
[2021-12-16] MEDS: CEFTRIAXONE 1,000 MG in NA CHLORIDE 0.9% 50 ML IVPB SCH (10:52)
[2021-12-16] MEDS: JUVEN PACKET PO SCH ×2 (10:52→20:45)
[2021-12-16] MEDS: AZITHROMYCIN 250 MG TAB PO SCH (10:52)
[2021-12-16] MEDS: APIXABAN 2.5 MG TABLET PO SCH ×2 (10:53→20:44)
--- NOTE | 2021-12-16 11:30 | PN ---
Date of Progress Note: 12/16/2021 Subjective: The patient is seen at the bedside. No overnight events reported. The patient feels we ll. He denies any acute complaints at this time. The patient's oxygen requirement has not changed. Objective: Vital Signs: Blood pressure 160/67, pulse 73, afebrile. General: No acute distress. Heart: Regular rate and rhythm. No murmurs, rubs, or gallops. Lungs: Difficult exam. The patient is coughing, however, no obvious crepitations noted. Abdomen: Soft, nontender. Extremities: No edema. Laboratory Data: CBC from the 10th was reviewed. Serum chemistry; sodium 139, potassium 3.7, chlori de 99, CO2 35, BUN and creatinine 52/1.68, glucose 136, magnesium 2.3, calcium 8.6. Current Medications: Reviewed. The patient does continue on Lasix 40 mg IV q.8 hours and potassium is being administered per potassium replacement protocol. Impression: 1.Acute kidney injury in the setting of cardiorenal syndrome. 2.Acute on chronic diastolic congestive heart failure. 3.Atrial fibrillation. 4.Type 2 diabetes. 5.Pneumonia. Plan: The patient's volume status appears to be significantly improved. We would recommend down tit ration of the patient's Lasix and consideration of placing the patient on a p.o. standing dose 40 mg p.o. b.i.d. would be sufficient. Continue antibiotics per primary team. Avoid NSAID, iodinated cont rast. Review of the patient's home medications revealed the patient was on torsemide 20 mg 4 tabs p.o. b.i. d., however, that is large dose. The patient is also on spironolactone 25 daily. He appears to be i mproving with furosemide 40 and should be able to tolerate 40 mg p.o. b.i.d. Aldactone 25 daily will also be added to regimen until p.o. conversion and decreasing the pat ient's 40 mg IV Lasix to twice daily. SE/MODL Voice ID: [id number] Report ID: [id number]
[2021-12-16] MEDS: MUCINEX DM 12HR.SR TAB PO PRN (13:40)
--- NOTE | 2021-12-16 15:15 | P.PN ---
Subjective Date of Service: 12/16/21 Chief Complaint: CHF exacerbation Subjective: No new changes, Improving Physical Examination - Vital Signs Temperature: 97.2 F Blood Pressure: 148/66 Pulse: 74 Respirations: 16 Pulse Ox (%): 100 - Physical Exam General: Alert, Oriented x3 HEENT: Atraumatic, Normocephalic Neck: Supple Respiratory: Normal air movement Cardiovascular: Regular rate/rhythm, Normal S1 S2 Gastrointestinal: Soft and benign Musculoskeletal: No swelling Neurological: Normal speech Assessment And Plan - Plan Assessment: Dyspnea, pedal edema secondary to acute on chronic diastolic congestive heart failure Atrial fibrillation on chronic anticoagulation therapy Diabetes mellitus type 2insulin-dependent CKD 4 Hypertension Hyperlipidemia Dementia Plan: Dyspnea, pedal edema secondary to acute on chronic diastolic congestive heart failure: Much improved. We will continue with 1500 cc/day fluid striction, daily weights. Lasix to be continued with adjustment as per nephrology. Nephrology on board. Atrial fibrillation on chronic anticoagulation therapy: Monitor on telemetry, continue home medications including Eliquis. Diabetes mellitus type 2insulin-dependent: We will continue sliding scale insulin. We will continue carb restricted diet. CKD 4: Stable creatinine level. Nephrology following for suspicion for cardiorenal syndrome. Hypertension: Continue home medications. Hyperlipidemia: Continue home medications. Dementia: Continue home medications. Pneumonia: he is much better with empiric rocephin and azithromycin therapy. we will follow closely. DVT PPX: Eliquis. Code status: Full Discharge Plan: Home Plan to discharge in: am.
[2021-12-16] MEDS: BENZONATATE 100 MG CAP PO PRN (22:52)
[2021-12-17] MEDS: MELATONIN 5 MG TABLET PO PRN (00:18)
[2021-12-17] MEDS: MUCINEX DM 12HR.SR TAB PO PRN (03:50)
[2021-12-17 06:41] LABS: Potassium 4.1 mmol/L (3.5-5.1)
[2021-12-17] MEDS: INSULIN -REGULAR HUMAN 50 UNIT/0.5 ML ML SQ SCH ×2 (07:30→11:30)
[2021-12-17] MEDS: AZITHROMYCIN 250 MG TAB PO SCH (09:00)
[2021-12-17] MEDS: JUVEN PACKET PO SCH (09:00)
[2021-12-17] MEDS: APIXABAN 2.5 MG TABLET PO SCH (09:00)
[2021-12-17] MEDS: FUROSEMIDE 40 MG/4 ML VIAL IV SCH (09:00)
[2021-12-17] MEDS ORDERED: SPIRONOLACTONE 25 MG TABLET PO SCH (09:00)
[2021-12-17] MEDS: CEFTRIAXONE 1,000 MG in NA CHLORIDE 0.9% 50 ML IVPB SCH (09:00)
[2021-12-17 13:25] VITALS: O2SAT 97
[2021-12-17] MEDS ORDERED: ALBUTEROL 2.5 MG/3 ML NEB SOL NEB PRN (15:00)
[2021-12-17 17:13] VITALS: BP 137/64; TEMP 97.7
--- NOTE | 2021-12-18 18:26 | P.PN ---
Date of Service: 12/17/21 Vital Signs Temp Pulse Resp BP Pulse Ox 97.7 F 78 16 137/64 100 12/17/21 16:00 12/17/21 16:00 12/17/21 16:00 12/17/21 16:00 12/17/21 16:00 Microbiology Results 12/12/21 20:39 Blood - Blood Aerobic Blood Culture - Final No growth in 5 days. 12/12/21 20:39 Blood - Blood Anaerobic Blood Culture - Final 12/12/21 20:46 Blood - Blood Aerobic Blood Culture - Final No growth in 5 days. 12/12/21 20:46 Blood - Blood Anaerobic Blood Culture - Final Assessment/ Plan: Nephrology No dyspnea No chest pain Anorexia No acute events overnight Vitals, medications, blood work and imaging reviewed in the chart. NAD. NCAT. MMM. Neck supple. Normal respiratory effort. RRR. Abd ND. No C/C/E. No rash. AAO. Normal speech. KORI likely CRS CKD III -No NSAIDs -Continue furosemide Diastolic CHF, A/C -Continue furosemide DM II with CKD -RISS Anemia in CKD -Monitor H&H
== END 2021-12-17 17:20 | DRG 291 ==
LOC: ER 17:30 → ERHOLD 21:15 → 2ND 22:40 → OBSVTOIN 12-13 21:02
PROVIDERS: ADMIT Internal Medicine Nephrology; ATTEND Internal Medicine Nephrology
DX: I13.0 Hypertensive heart and chronic kidney disease with heart failure and stage 1 through stage 4 chronic kidney disease, or unspecified chronic kidney disease (principal); L89.623 Pressure ulcer of left heel, stage 3; I50.33 Acute on chronic diastolic (congestive) heart failure; J18.9 Pneumonia, unspecified organism; E43 Unspecified severe protein-calorie malnutrition; N18.4 Chronic kidney disease, stage 4 (severe); I50.32 Chronic diastolic (congestive) heart failure; N17.9 Acute kidney failure, unspecified; G30.9 Alzheimer's disease, unspecified; F02.80 Dementia in other diseases classified elsewhere, unspecified severity, without behavioral disturbance, psychotic disturbance, mood disturbance, and anxiety; N40.0 Benign prostatic hyperplasia without lower urinary tract symptoms; E78.00 Pure hypercholesterolemia, unspecified; E11.22 Type 2 diabetes mellitus with diabetic chronic kidney disease; I48.91 Unspecified atrial fibrillation; E78.5 Hyperlipidemia, unspecified; M10.9 Gout, unspecified; E03.9 Hypothyroidism, unspecified; K21.9 Gastro-esophageal reflux disease without esophagitis; R06.03 Acute respiratory distress; R53.81 Other malaise; R63.0 Anorexia; D63.1 Anemia in chronic kidney disease; L89.611 Pressure ulcer of right heel, stage 1; S31.829A Unspecified open wound of left buttock, initial encounter; S31.819A Unspecified open wound of right buttock, initial encounter; S31.000A Unspecified open wound of lower back and pelvis without penetration into retroperitoneum, initial encounter; S41.101A Unspecified open wound of right upper arm, initial encounter; Z95.0 Presence of cardiac pacemaker; Z95.1 Presence of aortocoronary bypass graft; Z20.822 Contact with and (suspected) exposure to COVID-19; Z99.81 Dependence on supplemental oxygen; Z68.28 Body mass index [BMI] 28.0-28.9, adult; Z79.01 Long term (current) use of anticoagulants
CPT/HCPCS: 36415; 71045; 80048; 80053; 82947; 83605; 83735; 83880; 84145; 84484; 85025; 87040; 93005; 94640; 96361; 96374; 97110; 97161; 97530; 99285; G0378; J1815; J1940; J2270; J7050; U0003

== ENCOUNTER 2022-01-21 01:29 | Inpatient (IN) | payer OTHER, MEDICARE ==
[2022-01-21] MEDS ORDERED: NA CHLORIDE 0.9% 1,000 ML ONE ×2 (02:17→07:41)
[2022-01-21 02:32] LABS: Urine Blood 2+ (Negative); Urine Glucose Negative (Negative); Urine Protein 1+ (Negative)
[2022-01-21 02:36] LABS: Hematocrit 37.6 % (39.6-49.0); Lymphocytes % 34.3 % (15.3-44.8); MCV 84.4 fL (80-100); MPV 7.8 fL (7.6-11.3); RBC Red Blood Cell Count 4.45 M/uL (4.33-5.43)
[2022-01-21 02:40] LABS: Protime INR 1.32
[2022-01-21 02:51] LABS: Albumin 3.5 g/dL (3.4-5.0); Bilirubin Direct 0.1 mg/dL (0-0.2); Bilirubin Total 0.5 mg/dL (0.2-1.0); CKMB Creatine Kinase MB 3.2 ng/mL (1.0-3.6); Magnesium 2.1 mg/dL (1.8-2.4); Potassium 3.8 mmol/L (3.5-5.1); Protein, Total 7.9 g/dL (6.4-8.2)
[2022-01-21] MEDS ORDERED: CEFTRIAXONE 1000 MG/VIAL ONE (04:10)
[2022-01-21] MEDS ORDERED: NA CHLORIDE 0.9% 50 ML ONE (04:10)
[2022-01-21] MEDS ORDERED: METRONIDAZOLE 500mg IVPB 500 MG/100 ML BAG IV ONE ×2 (04:21→09:18)
--- NOTE | 2022-01-21 04:40 | EDPHYS ---
Physician Documentation [facility] Name: Gilmer Mercado Age: 86 yrs Sex: Male : 1935 Arrival Date: 01/21/2022 Time: 01:33 Bed 8 Private MD: ED Physician Bhavik Stern HPI: 01/21 01:50 This 86 yrs old Male presents to ER via EMS with complaints of Syncope, Diarrhea. mh7 01:50 The patient has experienced syncope, collapsed. Onset: The symptoms/episode mh7 began/occurred today, at an unknown time. Duration: This was a single episode. Context: the episode(s) was witnessed, by no one, occurred at home, occurred while the patient was standing, Just prior to the episode the patient experienced dizziness, weakness, generalized. Associated injury: The patient did not suffer any apparent associated injury. Associated signs and symptoms: Pertinent positives: diarrhea, nausea, Pertinent negatives: abdominal pain, agitation, ataxia, blurred vision, chest pain, combativeness, confusion, diaphoresis, headache, numbness, palpitations, seizure, shortness of breath, tingling, vertigo, vomiting. Current symptoms: Currently, the patient is not experiencing any symptoms, the patient feels back to baseline. Historical: - Home Meds: 01:40 allopurinol 100 mg Oral tab [Active]; Eliquis 2.5 mg Oral tab 1 tab 2 times per day kd3 [Active]; amiodarone 200 mg Oral tab 1 tab once daily [Active]; finasteride 5 mg Oral tab 1 tab once daily [Active]; furosemide 40 mg Oral tab 1 tab once daily [Active]; gabapentin 300 mg Oral cap 2 caps twice a day [Active]; calcitrol [Active]; levothyroxine oral 350 mcg tablet daily [Active]; Humulin R 100 unit/mL soln 500 mL 10-20 units daily [Active]; ranitidine HCl 150 mg Oral tab [Active]; simvastatin 20 mg Oral tab 1 tab once daily [Active]; tamsulosin 0.4 mg Oral cp24 1 cap once daily [Active]; Toprol XL 25 mg Oral Tb24 1 tab twice a day [Active]; - PMHx: 01:40 Alzheimer's disease; BPH; Diabetes - IDDM; Hypertension; PNUEMONIA; Pacemaker; High kd3 Cholesterol; - PSHx: 01:40 CABG; pacemaker; kd3 - Immunization history:: Adult Immunizations up to date. - Social history:: Smoking status: unknown. ROS: 01:50 Constitutional: Negative for fever, chills, and weight loss, Eyes: Negative for injury, mh7 pain, redness, and discharge, ENT: Negative for injury, pain, and discharge, Neck: Negative for injury, pain, and swelling, Cardiovascular: Negative for chest pain, palpitations, and edema, Respiratory: Negative for shortness of breath, cough, wheezing, and pleuritic chest pain, Back: Negative for injury and pain, : Negative for injury, bleeding, discharge, and swelling, MS/Extremity: Negative for injury and deformity, Skin: Negative for injury, rash, and discoloration, Psych: Negative for depression, anxiety, suicide ideation, homicidal ideation, and hallucinations, Allergy/Immunology: Negative for hives, rash, and allergies, Endocrine: Negative for neck swelling, polydipsia, polyuria, polyphagia, and marked weight changes, Hematologic/Lymphatic: Negative for swollen nodes, abnormal bleeding, and unusual bruising. Exam: 01:50 Constitutional: This is a well developed, well nourished patient who is awake, alert, mh7 and in no acute distress. Head/Face: Normocephalic, atraumatic. Eyes: Pupils equal round and reactive to light, extra-ocular motions intact. Lids and lashes normal. Conjunctiva and sclera are non-icteric and not injected. Cornea within normal limits. Periorbital areas with no swelling, redness, or edema. ENT: Nares patent. No nasal discharge, no septal abnormalities noted. Tympanic membranes are normal and external auditory canals are clear. Oropharynx with no redness, swelling, or masses, exudates, or evidence of obstruction, uvula midline. Mucous membranes moist. Neck: Trachea midline, no thyromegaly or masses palpated, and no cervical lymphadenopathy. Supple, full range of motion without nuchal rigidity, or vertebral point tenderness. No Meningismus. Chest/axilla: Normal chest wall appearance and motion. Nontender with no deformity. No lesions are appreciated. Cardiovascular: Regular rate and rhythm with a normal S1 and S2. No gallops, murmurs, or rubs. Normal PMI, no JVD. No pulse deficits. Respiratory: Lungs have equal breath sounds bilaterally, clear to auscultation and percussion. No rales, rhonchi or wheezes noted. No increased work of breathing, no retractions or nasal flaring. Abdomen/GI: Soft, non-tender, with normal bowel sounds. No distension or tympany. No guarding or rebound. No evidence of tenderness throughout. Back: No spinal tenderness. No costovertebral tenderness. Full range of motion. Skin: Warm, dry with normal turgor. Normal color with no rashes, no lesions, and no evidence of cellulitis. MS/ Extremity: Pulses equal, no cyanosis. Neurovascular intact. Full, normal range of motion. 01:50 Psych: Awake, alert, with orientation to person, place and time. Behavior, mood, and affect are within normal limits. 01:50 Neuro: Orientation: is normal, Mentation: is normal, Memory: is normal, Cranial nerves: grossly normal, Cerebellar function: is grossly normal, Motor: is normal, Sensation: no obvious gross deficits, Gait: not tested. Babinski testing is normal, seizure activity, is not displayed by the patient, Abnormal movements: there are no abnormal movements. Vital Signs: 01:33 BP 90 / 49; Pulse 72; Resp 18; Temp 97.7; Pulse Ox 100% on R/A; Weight 88.9 kg; Height kd3 5 ft. 11 in. (180.34 cm); Pain 0/10; 02:58 BP 93 / 49; Pulse 70; Pulse Ox 100% on R/A; kd3 03:24 BP 100 / 47; Pulse 70; Resp 13; Pulse Ox 100% ; kd3 03:32 BP 101 / 48; Pulse 70; Resp 11; Pulse Ox 100% on R/A; kd3 04:37 BP 100 / 50; Pulse 71; Resp 16; Pulse Ox 100% on R/A; kd3 06:05 BP 101 / 58; Pulse 70; Resp 12; Pulse Ox 100% on R/A; kd3 01:33 Body Mass Index 27.34 (88.90 kg, 180.34 cm) kd3 MDM: 04:36 Differential Diagnosis: cardiac arrhythmia, drug effect, emotional response, idiopathic mh7 syncope, seizure, sepsis, vasovagal episode. Data reviewed: vital signs, nurses notes, old medical records, lab test result(s), cardiac enzymes, CBC, electrolytes, Flu: negative urinalysis, EKG, radiologic studies, CT scan, plain films. Data interpreted: Pulse oximetry: on room air is 100 %. Interpretation: normal. Counseling: I had a detailed discussion with the patient and/or guardian regarding: the historical points, exam findings, and any diagnostic results supporting the discharge/admit diagnosis, lab results, radiology results, the need for further work-up and treatment in the hospital. Response to treatment: the patient's symptoms have mildly improved after treatment. 04:39 Patient medically screened. 01/21 01:45 Order name: Basic Metabolic Panel; Complete Time: 03:58 kd3 01/21 01:45 Order name: CBC with Diff; Complete Time: :56 01/21 01:45 Order name: CPK; Complete Time: :58 01/21 01:45 Order name: Ckmb; Complete Time: 03:58 3 01/21 01:45 Order name: Hepatic Function; Complete Time: 03:58 3 01/21 01:45 Order name: Lipase; Complete Time: 03:58 kd3 01/21 01:45 Order name: Magnesium; Complete Time: 03:58 3 01/21 01:45 Order name: Protime (+inr); Complete Time: 02:48 kd3 01/21 01:45 Order name: Ptt, Activated; Complete Time: 02:48 kd3 01/21 02:04 Order name: Troponin High Sensitivity; Complete Time: 03:58 [facility] 01/21 02:05 Order name: COVID-19 SARS RT PCR (Document "Date of Onset" if Symptomatic); Complete [facility] Time: 03:58 01/21 02:05 Order name: Influenza Screen (a \\T\\ B); Complete Time: 04:00 [facility] 01/21 02:32 Order name: Urine Dipstick-Ancillary; Complete Time: 02:48 EDMS 01/21 02:42 Order name: CBC Smear Scan; Complete Time: 04:56 EDMS 01/21 01:45 Order name: CT Head C Spine 3 01/21 02:04 Order name: Chest Single View XRAY [facility] 01/21 03:55 Order name: Glucose, Ancillary Testing; Complete Time: 03:58 EDMS 01/21 03:58 Order name: Urine Microscopic Only; Complete Time: 04:56 [facility] 01/21 03:58 Order name: Urine Culture [facility] 01/21 03:59 Order name: CT Abd/Pelvis - Without Contrast [facility] 01/21 05:19 Order name: Basic Metabolic Panel [facility] 01/21 05:19 Order name: Basic Metabolic Panel [facility] 01/21 05:19 Order name: CBC with Automated Diff [facility] 01/21 05:19 Order name: CBC with Automated Diff [facility] 01/21 07:42 Order name: Glucose, Ancillary Testing [facility] 01/21 12:35 Order name: Glucose, Ancillary Testing [facility] 01/21 01:45 Order name: EKG; Complete Time: 01:45 kd3 01/21 01:45 Order name: Cardiac monitoring; Complete Time: 01:56 3 01/21 01:45 Order name: EKG - Nurse/Tech; Complete Time: 01:56 3 01/21 01:45 Order name: IV Saline Lock; Complete Time: 01:56 3 01/21 01:45 Order name: Labs collected and sent; Complete Time: 01:56 3 01/21 01:45 Order name: NPO; Complete Time: 02:01 3 01/21 01:45 Order name: O2 Per Protocol; Complete Time: :56 3 01/21 01:45 Order name: O2 Sat Monitoring; Complete Time: : 3 01/21 01:45 Order name: Urine Dipstick-Ancillary (obtain specimen); Complete Time: 02:38 3 01/21 05:19 Order name: Heart Healthy [facility] Administered Medications: 02:25 Drug: NS 0.9% 1000 ml Route: IV; Rate: 1000 ml; Site: right antecubital; kd3 04:07 Drug: Rocephin (cefTRIAXone) 1 grams Route: IV; Rate: per protocol; Site: right as6 antecubital; 04:22 Drug: Flagyl (metroNIDAZOLE) 500 mg Volume: 100 ml; Route: IVPB; Rate: 200 ml/hr; kd3 Infused Over: 30 mins; Site: right antecubital; 04:49 Drug: NS 0.9% 500 ml Route: IV; Rate: bolus; Site: right antecubital; kd3 Point of Care Testing: Blood Glucose: 06:05 Blood Glucose: 108 mg/dL; kd3 Ranges: Critical Glucose Levels:Adult <50 mg/dl or >400 mg/dl <40 mg/dl or >180 mg/dl Disposition Summary: 01/21/22 04:39 Hospitalization Ordered Hospitalization Status: Inpatient Admission [facility] Provider: Vinay Cool 7 Condition: Stable mh7 Problem: new mh7 Symptoms: have improved mh7 Bed/Room Type: Standard [facility] Location: Telemetry/MedSurg (Inpatient)(01/21/22 15:44) eb Room Assignment: [facility](01/21/22 15:44) Diagnosis - Syncope mh7 - UTI/ Urinary tract infection, site not specified mh7 - Dehydration mh7 - Acute on chronic kidney disease 7 Forms: - Medication Reconciliation Form mh7 - SBAR form 7 Signatures: Dispatcher [employer] EDGisella Garcia RN RN Jessika Tompkins Maurice, MD MD 7 Jose Alejandro Justin RN RN as6 Alisha Santo RN RN kd3 Corrections: (The following items were deleted from the chart) 05:33 04:39 Telemetry/MedSurg (Inpatient) 7 mw 05:33 04:39 7 mw 15:44 05:33 BR ER HOLD mw eb 15:44 05:33 ERHOLD- mw eb
--- NOTE | 2022-01-21 04:40 | ER ---
Nurse's Notes [facility] Name: Gilmer Mercado Age: 86 yrs Sex: Male : 1935 Arrival Date: 01/21/2022 Time: 01:33 Bed 8 Private MD: Diagnosis: Syncope;UTI/ Urinary tract infection, site not specified;Dehydration;Acute on chronic kidney disease Presentation: 01/21 01:33 Chief complaint: EMS states: The patient was here about two weeks ago with pneumonia. kd3 Their home health nurse was going to help him up to the restroom this morning but he tried to go without her and was found in the bathroom on the floor. On arrival, pt was still on the floor and had an initial BP in the 60's. The home health nurse stated that she had noticed some diarrhea and nausea that began today. Coronavirus screen: Vaccine status: Patient reports receiving the 2nd dose of the covid vaccine. Ebola Screen: No symptoms or risks identified at this time. Initial Sepsis Screen: Does the patient meet any 2 criteria? Mean Arterial Pressure (MAP) < 65. No. Patient's initial sepsis screen is negative. Does the patient have a suspected source of infection? Yes: Productive cough/pneumonia. Risk Assessment: Do you want to hurt yourself or someone else? Patient reports no desire to harm self or others. Onset of symptoms was January 21, 2022. 01:33 Method Of Arrival: [facility] kd3 01:33 Acuity: VIN 3 kd3 Triage Assessment: 01:40 General: Appears in no apparent distress. Behavior is calm, cooperative. Pain: Denies kd3 pain. Neuro: Level of Consciousness is awake, alert, obeys commands, Oriented to person, place, time, situation, Reports a syncopal episode. Respiratory: Airway is patent Trachea midline Respiratory effort is even, unlabored, Respiratory pattern is regular, symmetrical. Historical: - Home Meds: 01:40 allopurinol 100 mg Oral tab [Active]; Eliquis 2.5 mg Oral tab 1 tab 2 times per day kd3 [Active]; amiodarone 200 mg Oral tab 1 tab once daily [Active]; finasteride 5 mg Oral tab 1 tab once daily [Active]; furosemide 40 mg Oral tab 1 tab once daily [Active]; gabapentin 300 mg Oral cap 2 caps twice a day [Active]; calcitrol [Active]; levothyroxine oral 350 mcg tablet daily [Active]; Humulin R 100 unit/mL soln 500 mL 10-20 units daily [Active]; ranitidine HCl 150 mg Oral tab [Active]; simvastatin 20 mg Oral tab 1 tab once daily [Active]; tamsulosin 0.4 mg Oral cp24 1 cap once daily [Active]; Toprol XL 25 mg Oral Tb24 1 tab twice a day [Active]; - PMHx: 01:40 Alzheimer's disease; BPH; Diabetes - IDDM; Hypertension; PNUEMONIA; Pacemaker; High kd3 Cholesterol; - PSHx: 01:40 CABG; pacemaker; kd3 - Immunization history:: Adult Immunizations up to date. - Social history:: Smoking status: unknown. Screenin:42 Abuse screen: Denies threats or abuse. Denies injuries from another. Nutritional kd3 screening: No deficits noted. Tuberculosis screening: No symptoms or risk factors identified. Fall Risk Fall in past 12 months (25 points). IV access (20 points). Assessment: 01:43 Neuro: Level of Consciousness is awake, alert, obeys commands, Oriented to person, kd3 place, time, situation. Cardiovascular: Rhythm is Vital Signs: 01:33 BP 90 / 49; Pulse 72; Resp 18; Temp 97.7; Pulse Ox 100% on R/A; Weight 88.9 kg; Height kd3 5 ft. 11 in. (180.34 cm); Pain 0/10; 02:58 BP 93 / 49; Pulse 70; Pulse Ox 100% on R/A; kd3 03:24 BP 100 / 47; Pulse 70; Resp 13; Pulse Ox 100% ; kd3 03:32 BP 101 / 48; Pulse 70; Resp 11; Pulse Ox 100% on R/A; kd3 04:37 BP 100 / 50; Pulse 71; Resp 16; Pulse Ox 100% on R/A; kd3 06:05 BP 101 / 58; Pulse 70; Resp 12; Pulse Ox 100% on R/A; kd3 01:33 Body Mass Index 27.34 (88.90 kg, 180.34 cm) kd3 ED Course: 01:33 Patient arrived in ED. kd3 01:40 Triage completed. kd3 01:40 Arm band placed on right wrist. kd3 01:42 Bhavik Stern MD is Attending Physician. mh7 01:42 Patient has correct armband on for positive identification. kd3 01:42 No provider procedures requiring assistance completed. Maintain EMS IV. Dressing kd3 intact. Good blood return noted. Site clean \\T\\ dry. Gauge \\T\\ site: 20 G R hand. 01:43 Alisha Santo, LUCERO is Primary Nurse. kd3 02:15 Initial lab(s) drawn, by ED staff, sent to lab. EKG done, by ED staff, reviewed by [facility] Bhavik Stern MD COVID swab sent to lab. Flu and/or RSV swab sent to lab. 02:38 COVID-19 SARS RT PCR (Document "Date of Onset" if Symptomatic) Sent. kd3 02:38 Influenza Screen (a \\T\\ B) Sent. kd3 02:39 Chest Single View XRAY In Process Unspecified. EDMS 02:42 Urine collected: straight cath specimen, sediment noted. mh5 02:45 CT Head C Spine In Process Unspecified. EDMS 04:37 Vinay Cool MD is Hospitalizing Provider. mh7 04:40 CT Abd/Pelvis - Without Contrast In Process Unspecified. EDMS Administered Medications: 02:25 Drug: NS 0.9% 1000 ml Route: IV; Rate: 1000 ml; Site: right antecubital; kd3 04:07 Drug: Rocephin (cefTRIAXone) 1 grams Route: IV; Rate: per protocol; Site: right as6 antecubital; 04:22 Drug: Flagyl (metroNIDAZOLE) 500 mg Volume: 100 ml; Route: IVPB; Rate: 200 ml/hr; kd3 Infused Over: 30 mins; Site: right antecubital; 04:49 Drug: NS 0.9% 500 ml Route: IV; Rate: bolus; Site: right antecubital; kd3 Medication: 02:59 VIS not applicable for this client. kd3 Point of Care Testing: Blood Glucose: 06:05 Blood Glucose: 108 mg/dL; kd3 Ranges: Outcome: 04:39 Decision to Hospitalize by Provider. mh7 16:46 Patient left the ED. 6 Signatures: Dispatcher [employer] EDMS Sherri Pitt 5 Bhavik Stern MD MD 7 Jose Alejandro Justin RN RN as6 Alisha Santo, RN RN kd3 Celsa Santos, RN RN jh6
[2022-01-21 04:46] LABS: Anisocytosis 1+; Blood Morphology Comment NOTED (NOT SEEN); Platelet Estimate ADEQ; White Blood Cell Scan OK (OK)
[2022-01-21 04:50] LABS: Urine Bacteria <20 /HPF (<20); Urine RBC <5 /HPF (None Seen)
[2022-01-21] MEDS ORDERED: NA CHLORIDE 0.9% 500 ML ONE (04:52)
[2022-01-21] MEDS ORDERED: ACETAMINOPHEN 500 MG TAB PO PRN (05:14)
[2022-01-21] MEDS ORDERED: ONDANSETRON 4 MG/2 ML VIAL IV PRN (05:14)
[2022-01-21] MEDS ORDERED: D50W 25 GM/50 ML SYRINGE IV PRN (05:18)
[2022-01-21] MEDS ORDERED: GLUCAGON 1 MG/VIAL IM PRN (05:18)
--- NOTE | 2022-01-21 05:19 | P.HP ---
Certification for Inpatient Patient admitted to: Inpatient With expected LOS: >2 Midnights Practitioner: I am a practitioner with admitting privileges, knowledge of patient current condition, hospital course, and medical plan of care. Services: Services provided to patient in accordance with Admission requirements found in Title 42 Section 412.3 of the Code of Federal Regulations Patient History Date of Service: 01/21/22 Reason for admission: Gastroenteritis, syncope, volume depletion, KORI on CKD stage III History of Present Illness: 86-year-old male patient with medical history significant for hypertension, hyperlipidemia, type 2 diabetes, hypothyroidism, history of chronic kidney disease who came to the ED with complaint of nausea vomiting episode and diarrhea. He also had a syncopal episode at home. Syncopal episode was unwitnessed and patient reported that he began to feel extremely weak and lethargic after he had diarrhea several times earlier in the day. He also had nausea and has been having poor oral intake. No issues with headache, fever, chills, abdominal pain given. He does use home oxygen for sleep apnea as per patient. In the emergency department after arrival he was found to have elevated creatinine of 3.9 from last known baseline of about 2.5 and low blood pressure. He was started on IV fluid and he was asked to be admitted for management of KORI on CKD secondary to volume depletion and gastroenteritis episode.` Allergies No Known Allergies Allergy (Verified 10/24/21 07:23) Home Medications: Tamsulosin [Flomax*] 0.4 mg PO DAILY cap 08/17/21 Albuterol Sulfate [Albuterol Sulfate Hfa] 2 puff IH Q4HR 12/03/21 Apixaban [Eliquis] 2.5 mg PO BID 12/03/21 Cefdinir [Cefdinir*] 300 mg PO BID 12/03/21 Cetirizine HCl [Zyrtec*] 5 mg PO DAILY 12/03/21 Clopidogrel Bisulfate [Plavix*] 75 mg PO DAILY 12/03/21 Colesevelam [Welchol*] 625 mg PO BIDWM 12/03/21 Gabapentin 600 mg PO BID 12/03/21 Pantoprazole [Protonix Tab*] 40 mg PO BID 12/03/21 Ramelteon 8 mg PO BEDTIME 12/03/21 Torsemide [Demadex*] 4 tab PO BID 12/03/21 carvediloL [Carvedilol] 6.25 mg PO BID 12/03/21 methocarbamoL [Methocarbamol] 500 mg PO BEDTIME PRN 12/03/21 Benzonatate [Tessalon Perle*] 100 mg PO TID PRN #60 cap 12/07/21 Melatonin 5 mg PO BEDTIME PRN PRN #30 tablet 12/07/21 Spironolactone [Aldactone*] 25 mg PO DAILY #30 tab 12/07/21 Acetaminophen [Tylenol] 650 mg PO Q6HP PRN 12/13/21 Albuterol Sulfate [Albuterol Sulfate Hfa] 1 puff IH Q6HP PRN 12/13/21 Donepezil HCl [Aricept] 10 mg PO BID 12/13/21 Insulin -Regular Human [Novolin -R*] See Protocol SQ ACHS 12/13/21 Insulin Aspart [Insulin Aspart Flexpen] 20 unit SQ TIDWM 12/13/21 Levothyroxine Sodium 150 mcg PO DAILY 12/13/21 Ondansetron [Zofran (Odt)*] 4 mg PO Q8HP PRN 12/13/21 icosapent ethyL [Vascepa 1 gm Cap] 2 cap PO BID 12/13/21 Albuterol Neb [Proventil 0.083% Neb Soln] 2.5 mg NEB [id number] PRN #60 amp 12/17/21 Apixaban [Eliquis *] 2.5 mg PO BID #60 tablet 12/17/21 Azithromycin Tab [Zithromax*] 250 mg PO DAILY #7 tab 12/17/21 Benzonatate [Tessalon Perle*] 100 mg PO TID PRN #30 cap 12/17/21 Furosemide [Lasix] 40 mg PO BID #60 tablet 12/17/21 Insulin Degludec [Tresiba] 10 unit SQ DAILY AFTER SUPPER #1 vial 12/17/21 Berhane [Berhane*] 1 pkt PO BID #60 powd.pack 12/17/21 Melatonin 5 mg PO BEDTIME PRN PRN #30 tablet 12/17/21 Spironolactone [Aldactone*] 25 mg PO DAILY #30 tab 12/17/21 - Past Medical/Surgical History Diabetic: Yes -: Diabetes mellitus type 2 -: Hypertension -: Hyperlipidemia -: Aortic stenosis requiring percutaneous replacement, December 2015 -: 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 -: Urinary retention -: BPH -: Gout -: Hypothyroidism -: GERD -: Atrial fibrillation -: Thyroidectomy -: CABG x4 vessels -: 2 cardiac stents -: Aortic valve replacement percutaneously -: Cholecystectomy Psychosocial/ Personal History: Currently resides at assisted living facility - Family History Father -: Heart disease Brother -: Heart disease - Social History Alcohol use: No CD- Drugs: No Caffeine use: No Review of Systems General: Weakness, Malaise ENT: Unremarkable Respiratory: Unremarkable Cardiovascular: Unremarkable Gastrointestinal: Nausea, Diarrhea Genitourinary: Unremarkable Musculoskeletal: Unremarkable Integumentary: Unremarkable Neurological: Unremarkable Physical Examination - Physical Exam General: Alert, Oriented x3 HEENT: Atraumatic, Normocephalic Neck: Supple Respiratory: Normal air movement Cardiovascular: Regular rate/rhythm, Normal S1 S2 Gastrointestinal: Non-distended Musculoskeletal: No swelling Neurological: Normal speech - Studies Laboratory Data (last 24 hrs) 01/21/22 02:03: PT 14.6 H, INR 1.32, APTT 33.9 01/21/22 02:03: WBC 8.8, Hgb 12.2 L, Hct 37.6 L, Plt Count 205 01/21/22 02:03: Sodium 135 L, Potassium 3.8, BUN 83 H, Creatinine 3.92 H, Glucose 126 H, Magnesium 2.1, Total Bilirubin 0.5, AST 13 L, ALT 19, Alkaline Phosphatase 87, Lipase 283 Microbiology Data (last 24 hrs): 01/21/22 02:17 Nasopharnyx Influenza Type A Antigen Screen - Final 01/21/22 02:17 Nasopharnyx Influenza Type B Antigen Screen - Final Assessment and Plan - Plan Gastroenteritis Volume depletion KORI on CKD stage III History of diabetes type 2 Hyperlipidemia Hypothyroidism Benign prostatic hypertrophy Plan: Patient does have significant symptoms of volume depletion with dizziness and unwitnessed syncopal episode. Will continue patient on telemetry and have him on IV fluid for hydration purposes. Because of his presentation we will start empiric antibiotic therapy with Flagyl and ciprofloxacin renally dosed and observe symptomatology closely. Will monitor renal verbalizes dose of KORI on CKD. Will have nephrology assist with management recommendation. Will continue to management of comorbid condition of diabetes and hypothyroidism. Prophylaxis: Heparin for DVT prophylaxis. CODE STATUS: Full code. Disposition: He will be discharged once medically stable. Discharge Plan: Home - Advance Directives Does patient have a Living Will: Yes Does patient have a Durable POA for Healthcare: Yes - Code Status/Comfort Care Code Status: Full Code
[2022-01-21] MEDS ORDERED: D10W 125 ML IV PRN (05:29)
[2022-01-21] MEDS: NA CHLORIDE 0.9% 1,000 ML IV SCH ×2 (06:00→19:20)
[2022-01-21] MEDS: Ciprofloxacin 200mg IV 200 MG/100 ML IV.SOLN. IV SCH (07:00)
[2022-01-21] MEDS: INSULIN -REGULAR HUMAN 50 UNIT/0.5 ML ML SQ SCH ×4 (07:30→20:31)
[2022-01-21] MEDS ORDERED: Ciprofloxacin 200mg IV 200 MG/100 ML IV.SOLN. IV ONE (07:41)
[2022-01-21] MEDS: METRONIDAZOLE 500mg IVPB 500 MG/100 ML BAG IV SCH ×2 (09:00→18:20)
[2022-01-21] MEDS: HEPARIN 5000 UNIT/ML 1 ML VIAL SQ SCH ×2 (09:00→18:20)
[2022-01-21] MEDS ORDERED: HEPARIN 5000 UNIT/ML 1 ML VIAL ONE (09:18)
--- NOTE | 2022-01-21 12:40 | EKG ---
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
--- NOTE | 2022-01-21 17:15 | P.PN ---
Date of Service: 01/21/22 Patient seen and examined. He denies any nausea or vomiting or diarrhea at the moment. He denies any abdominal pain. Diagnosis: Acute gastroenteritis. Syncope Acute on chronic kidney disease Plan: Continue IV hydration. IV metronidazole and Cipro. Monitor renal function. PT consult.
[2022-01-21 18:12] VITALS: BMI 27.3
--- NOTE | 2022-01-21 22:09 | P.CNS ---
Date of Consult: 01/22/22 Reason for Consult: KORI/ CKD Requesting Physician: zion churchill Chief Complaint: Gastroenteritis, syncope, volume depletion, KORI on CKD stage III History of Present Illness: 86-year-old male patient with medical history significant for hypertension, hyperlipidemia, type 2 diabetes, hypothyroidism, history of chronic kidney disease who came to the ED with complaint of nausea vomiting episode and diarrhea. He also had a syncopal episode at home. Syncopal episode was unwitnessed and patient reported that he began to feel extremely weak and lethargic after he had diarrhea several times earlier in the day. He also had nausea and has been having poor oral intake. No issues with headache, fever, chills, abdominal pain given. He does use home oxygen for sleep apnea as per patient. In the emergency department after arrival he was found to have elevated creatinine of 3.9 from last known baseline of about 2.5 and low blood pressure. He was started on IV fluid and he was asked to be admitted for management of KORI on CKD secondary to volume depletion and gastroenteritis episode. 01:50 This 86 yrs old Male presents to ER via EMS with complaints of Syncope, Diarrhea. mh7 01:50 The patient has experienced syncope, collapsed. Onset: The symptoms/episode mh7 began/occurred today, at an unknown time. Duration: This was a single episode. Context: the episode(s) was witnessed, by no one, occurred at home, occurred while the patient was standing, Just prior to the episode the patient experienced dizziness, weakness, generalized. Associated injury: The patient did not suffer any apparent associated injury. Associated signs and symptoms: Pertinent positives: diarrhea, nausea, Pertinent negatives: abdominal pain, agitation, ataxia, blurred vision, chest pain, combativeness, confusion, diaphoresis, headache, numbness, palpitations, seizure, shortness of breath, tingling, vertigo, vomiting. Current symptoms: Currently, the patient is not experiencing any symptoms, the patient feels back to baseline. Allergies No Known Allergies Allergy (Verified 10/24/21 07:23) Home medications list reviewed: Yes Home Medications: Tamsulosin [Flomax*] 0.4 mg PO DAILY cap 08/17/21 Apixaban [Eliquis] 2.5 mg PO BID 12/03/21 Cefdinir [Cefdinir*] 300 mg PO BID 12/03/21 Cetirizine HCl [Zyrtec*] 5 mg PO DAILY 12/03/21 Clopidogrel Bisulfate [Plavix*] 75 mg PO DAILY 12/03/21 Colesevelam [Welchol*] 625 mg PO BIDWM 12/03/21 Gabapentin 600 mg PO BID 12/03/21 Pantoprazole [Protonix Tab*] 40 mg PO BID 12/03/21 Ramelteon 8 mg PO BEDTIME 12/03/21 Torsemide [Demadex*] 4 tab PO BID 12/03/21 carvediloL [Carvedilol] 6.25 mg PO BID 12/03/21 methocarbamoL [Methocarbamol] 500 mg PO BEDTIME PRN 12/03/21 Donepezil HCl [Aricept] 10 mg PO BID 12/13/21 Insulin -Regular Human [Novolin -R*] See Protocol SQ ACHS 12/13/21 Insulin Aspart [Insulin Aspart Flexpen] 20 unit SQ TIDWM 12/13/21 Levothyroxine Sodium 150 mcg PO DAILY 12/13/21 Ondansetron [Zofran (Odt)*] 4 mg PO Q8HP PRN 12/13/21 icosapent ethyL [Vascepa 1 gm Cap] 2 cap PO BID 12/13/21 Benzonatate [Tessalon Perle*] 100 mg PO TID PRN #30 cap 12/17/21 Furosemide [Lasix] 40 mg PO BID #60 tablet 12/17/21 Insulin Degludec [Tresiba] 10 unit SQ DAILY AFTER SUPPER #1 vial 12/17/21 Berhane [Berhane*] 1 pkt PO BID #60 powd.pack 12/17/21 Melatonin 5 mg PO BEDTIME PRN PRN #30 tablet 12/17/21 Spironolactone [Aldactone*] 25 mg PO DAILY #30 tab 12/17/21 - Past Medical/Surgical History Diabetic: Yes -: Diabetes mellitus type 2 -: Hypertension -: Hyperlipidemia -: Aortic stenosis requiring percutaneous replacement, December 2015 -: 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 -: Urinary retention -: BPH -: Gout -: Hypothyroidism -: GERD -: Atrial fibrillation -: Thyroidectomy -: CABG x4 vessels -: 2 cardiac stents -: Aortic valve replacement percutaneously -: Cholecystectomy Psychosocial/ Personal History: Currently resides at assisted living facility - Family History Father Medical History: Heart disease Brother Medical History: Heart disease - Social History Smoking Status: Unknown if ever smoked Alcohol use: No CD- Drugs: No Caffeine use: No Review of Systems 10-point ROS is otherwise unremarkable General: Weakness Physical Examination Temp Pulse Resp BP Pulse Ox 97.6 F 70 14 104/84 100 01/21/22 12:00 01/21/22 12:00 01/21/22 08:00 01/21/22 12:00 01/21/22 12:00 General: In no apparent distress, Oriented x3, Cooperative HEENT: Atraumatic Neck: Supple Respiratory: Normal air movement Cardiovascular: No edema, Regular rate/rhythm Gastrointestinal: Soft and benign, Non-distended Musculoskeletal: No clubbing, No contractures Integumentary: No rashes, No cyanosis Neurological: Normal speech Laboratory Data (last 24 hrs) 01/21/22 02:03: PT 14.6 H, INR 1.32, APTT 33.9 01/21/22 02:03: WBC 8.8, Hgb 12.2 L, Hct 37.6 L, Plt Count 205 01/21/22 02:03: Sodium 135 L, Potassium 3.8, BUN 83 H, Creatinine 3.92 H, Glucose 126 H, Magnesium 2.1, Total Bilirubin 0.5, AST 13 L, ALT 19, Alkaline Phosphatase 87, Lipase 283 Imagings Data: EXAM DESCRIPTION: RAD - Chest Single View - 01/21/2022 2:37 am CLINICAL HISTORY: The patient is 86 years old and is Male; syncope TECHNIQUE: Frontal view of the chest. COMPARISON: No relevant prior studies available. FINDINGS: LUNGS: Unremarkable. No consolidation. PLEURAL SPACE: Unremarkable. No pneumothorax. HEART: The prosthetic aortic valve is noted. MEDIASTINUM: Unremarkable. BONES/JOINTS: Median sternotomy wires and vascular clips are present. TUBES, LINES AND DEVICES: Left-sided pacemaker is present. UPPER ABDOMEN: Unremarkable as visualized. IMPRESSION: No acute cardiopulmonary process. EXAM DESCRIPTION: CT - Abdomen Pelvis Wo Contrast - 01/21/2022 6:35 am CLINICAL HISTORY: The patient is 86 years old and is Male; Diarrhea TECHNIQUE: Axial computed tomography images of the abdomen and pelvis without intravenous contrast. Sagittal and coronal reformatted images were created and reviewed. This CT exam was performed using one or more of the following dose reduction techniques: automated exposure control, adjustment of the mA and/or kV according to patient size, and/or use of iterative reconstruction technique. COMPARISON: No relevant prior studies available. FINDINGS: Lung bases: Unremarkable. No mass. No consolidation. ABDOMEN: Liver: Unremarkable. Gallbladder and bile ducts: Gallbladder is surgically absent. No ductal dilation. Pancreas: Unremarkable. No ductal dilation. Spleen: Unremarkable. No splenomegaly. 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 Kidneys and ureters: Simple cyst in the right kidney. ACR White Paper guidelines (Herts, et al. JACR 2018; 15(2):264-273) suggest no follow-up is necessary. No obstructing stones. No hydronephrosis. Stomach and bowel: Suggestion of mild bowel wall thickening involving the rectum. No surrounding inflammatory changes. There is a 3.7 x 2.0 x 3.1 cm endoluminal fat density focus in the upper right colon near the hepatic flexure. No obstruction. PELVIS: Appendix: The appendix is normal. Bladder: Unremarkable. No stones. Reproductive: Unremarkable as visualized. ABDOMEN and PELVIS: Intraperitoneal space: Unremarkable. No free air. No significant fluid collection. Bones/joints: Disc space narrowing with degenerative endplate changes in the spine. No acute fracture. No dislocation. Soft tissues: Unremarkable. Vasculature: Aortic valvular prosthesis. The Scattered atherosclerotic vascular calcifications. No abdominal aortic aneurysm. Lymph nodes: Unremarkable. No enlarged lymph nodes. IMPRESSION: 1. Suggestion of mild bowel wall thickening involving the rectum. No surrounding inflammatory changes. Correlate with any concern for proctitis. 2. There is a 3.7 x 2.0 x 3.1 cm endoluminal fat density focus in the upper right colon near the hepatic flexure. Finding may represent stool, but a gastrointestinal tract lipoma is not excluded. 3. Additional non-emergent findings as above. 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 Dobson Thank you kindly for the consultation.
[2022-01-22] MEDS: METRONIDAZOLE 500mg IVPB 500 MG/100 ML BAG IV SCH ×3 (00:25→17:26)
[2022-01-22] MEDS: HEPARIN 5000 UNIT/ML 1 ML VIAL SQ SCH ×3 (00:25→17:26)
[2022-01-22] MEDS: NA CHLORIDE 0.9% 1,000 ML IV SCH (05:08)
[2022-01-22 05:51] LABS: Phosphorus 4.6 mg/dL (2.5-4.9); Potassium 3.6 mmol/L (3.5-5.1); Uric Acid 13.9 mg/dL (3.5-7.2)
[2022-01-22 05:56] LABS: Absolute Lymphocytes (CBC) 2.8 K/uL (0.7-4.9); Hematocrit 30.6 % (39.6-49.0); Lymphocytes % 40.4 % (15.3-44.8); MCV 83.9 fL (80-100); MPV 7.7 fL (7.6-11.3); RBC Red Blood Cell Count 3.65 M/uL (4.33-5.43)
--- NOTE | 2022-01-22 06:32 | P.PN ---
Date of Service: 01/22/22 Subjective: improving 3 BMs last night no pain improved PO intake no new symptoms ROS: 10 point ROS as noted above, otherwise negative Physical exam GEN: Alert, oriented, NAD HEENT: Normal conjunctiva, sclera anicteric CV: Regular rate and rhythm, no edema Pulm: Nonlabored respirations on room air ABD: Soft, nontender, nondistended Neuro: Normal speech, normal affect Problem List Acute gastroenteritis vs cystitis Syncope secondary to hypovolemia KORI on CKD3, secondary to hypovolemia Hyponatremia, mild Hypocalcemia HTN DM2 with neuropathy anemia in chronic disease Continue IV hydration. IV metronidazole and Cipro. renal function improved, nephrology following restart home meds PT consulted patient feels better, feels almost ready to go home diarrhea improved CT noted inflammation around rectum, denies symptoms of proctitis culture pending Code: full Dispo: home, pt has caregiver at home anticipate tomorrow Time Spent Managing Pts Care (In Minutes): 35
[2022-01-22] MEDS: Ciprofloxacin 200mg IV 200 MG/100 ML IV.SOLN. IV SCH (06:43)
[2022-01-22 07:16] LABS: White Blood Cell Scan OK (OK)
[2022-01-22 07:17] LABS: Anisocytosis 1+; Blood Morphology Comment NOTED (NOT SEEN); Platelet Estimate ADEQ
[2022-01-22] MEDS: INSULIN -REGULAR HUMAN 50 UNIT/0.5 ML ML SQ SCH ×4 (07:30→21:00)
[2022-01-22] MEDS: GABAPENTIN 300 MG CAP PO SCH ×2 (08:58→21:01)
[2022-01-22] MEDS: VITAMIN D 5,000 UNIT CAP PO SCH (08:58)
[2022-01-22] MEDS ORDERED: POTASSIUM CL SA 10 MEQ TAB PO ONE (09:00)
--- NOTE | 2022-01-22 10:34 | RAD REPORT ---
EXAM DESCRIPTION: CT - [id number] - 01/21/2022 6:36 am CLINICAL HISTORY: Unwitnessed fall COMPARISON: None available TECHNIQUE: Axial CT of the head obtained from the skull apex to the skull base without contrast. Axi al CT images of the cervical spine obtained from the skull base through the thoracic inlet. Sagittal and coronal reformatted images available. This exam was performed according to our departmental dose- optimization program, which includes automated exposure control, adjustment of the mA and/or kV accor ding to patient size and/or use of iterative reconstruction technique. FINDINGS: CT head: No acute intracranial hemorrhage identified. No mass, mass effect, shift of the midline, abnormal ext ra-axial fluid collection or CT evidence of acute ischemic change identified. The ventricular system and sulcal spaces are mildly enlarged compatible with mild cerebral atrophy. Scattered areas of hyp odensity throughout the supratentorial white matter are nonspecific and may be related to chronic sma ll vessel ischemic change. 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 The visualized paranasal sinuses and mastoid air cells are well aerated. No skull fracture identifi ed. Visualized orbits and globes are unremarkable. Atherosclerotic calcification of the intracranial internal carotid arteries. Cervical CT: Alignment of the cervical spine is maintained without evidence of subluxation. The atlantoaxial, at lantodental, and occipitoatlantal intervals are preserved. No fracture identified. Vertebral body h eight preserved. Prevertebral soft tissues are unremarkable. Moderate multilevel loss of intervertebral disc height with endplate spondylosis, facet arthropathy, and uncovertebral spurring. Multilevel mild osseous neural foraminal narrowing. Visualized skull base is intact. No fracture of the visualized facial bones. Visualized mastoid air c ells and paranasal sinuses are well aerated. Visualized thyroid is unremarkable. No cervical lymphadenopathy. No pneumothorax in the visualized lung apices. Atherosclerotic vascular calcification. IMPRESSION: 1. No acute intracranial abnormality. 2. No acute fracture or subluxation of the cervical spine. 3. Multilevel degenerative change of the cervical spine. Electronically signed by: Ivan Olivas 01/21/2022 4:00 AM CDT Due to temporary technical issues with the PACS/Fluency reporting system, reports are being signed by the in house radiologists without review as a courtesy to insure prompt reporting. The interpreting radiologist is fully responsible for the content of the report.
--- NOTE | 2022-01-22 10:36 | RAD REPORT ---
EXAM DESCRIPTION: RAD - Chest Single View - 01/21/2022 2:37 am CLINICAL HISTORY: The patient is 86 years old and is Male; syncope TECHNIQUE: Frontal view of the chest. COMPARISON: No relevant prior studies available. FINDINGS: LUNGS: Unremarkable. No consolidation. PLEURAL SPACE: Unremarkable. No pneumothorax. HEART: The prosthetic aortic valve is noted. MEDIASTINUM: Unremarkable. BONES/JOINTS: Median sternotomy wires and vascular clips are present. TUBES, LINES AND DEVICES: Left-sided pacemaker is present. UPPER ABDOMEN: Unremarkable as visualized. IMPRESSION: No acute cardiopulmonary process. Electronically signed by: Sintia Lua MD 01/21/2022 3:55 AM CDT Due to temporary technical issues with the PACS/Fluency reporting system, reports are being signed by the in house radiologists without review as a courtesy to insure prompt reporting. The interpreting radiologist is fully responsible for the content of the report.
--- NOTE | 2022-01-22 11:23 | RAD REPORT ---
EXAM DESCRIPTION: CT - Abdomen Pelvis Wo Contrast - 01/21/2022 6:35 am CLINICAL HISTORY: The patient is 86 years old and is Male; Diarrhea TECHNIQUE: Axial computed tomography images of the abdomen and pelvis without intravenous contrast. Sagittal and coronal reformatted images were created and reviewed. This CT exam was performed usi ng one or more of the following dose reduction techniques: automated exposure control, adjustment o f the mA and/or kV according to patient size, and/or use of iterative reconstruction technique. COMPARISON: No relevant prior studies available. FINDINGS: Lung bases: Unremarkable. No mass. No consolidation. ABDOMEN: Liver: Unremarkable. Gallbladder and bile ducts: Gallbladder is surgically absent. No ductal dilation. Pancreas: Unremarkable. No ductal dilation. Spleen: Unremarkable. No splenomegaly. 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 2.6 cm and 1.7 cm fat-containing right adrenal nodules which most likely represent myelolipom as. Kidneys and ureters: Simple cyst in the right kidney. ACR White Paper guidelines (Herarmando, et al. J ACR 2018; 15(2):264-273) suggest no follow-up is necessary. No obstructing stones. No hydronephrosis. Stomach and bowel: Suggestion of mild bowel wall thickening involving the rectum. No surrounding inflammatory changes. There is a 3.7 x 2.0 x 3.1 cm endoluminal fat density focus in the upper right colon near the hepatic flexure. No obstruction. PELVIS: Appendix: The appendix is normal. Bladder: Unremarkable. No stones. Reproductive: Unremarkable as visualized. ABDOMEN and PELVIS: Intraperitoneal space: Unremarkable. No free air. No significant fluid collection. Bones/joints: Disc space narrowing with degenerative endplate changes in the spine. No acute fracture. No dislocation. Soft tissues: Unremarkable. Vasculature: Aortic valvular prosthesis. The Scattered atherosclerotic vascular calcifications. No abdominal aortic aneurysm. Lymph nodes: Unremarkable. No enlarged lymph nodes. IMPRESSION: 1. Suggestion of mild bowel wall thickening involving the rectum. No surrounding infla mmatory changes. Correlate with any concern for proctitis. 2. There is a 3.7 x 2.0 x 3.1 cm endoluminal fat density focus in the upper right colon near the he patic flexure. Finding may represent stool, but a gastrointestinal tract lipoma is not excluded. 3. Additional non-emergent findings as above. Electronically signed by: Nixon Kaufman MD 01/21/2022 5:20 AM CDT Due to temporary technical issues with the PACS/Fluency reporting system, reports are being signed by the in house radiologists without review as a courtesy to insure prompt reporting. The interpreting radiologist is fully responsible for the content of the report.
[2022-01-22] MEDS: TAMSULOSIN 0.4 MG SR CAP PO SCH (21:01)
[2022-01-23] MEDS: METRONIDAZOLE 500mg IVPB 500 MG/100 ML BAG IV SCH (00:12)
[2022-01-23] MEDS: HEPARIN 5000 UNIT/ML 1 ML VIAL SQ SCH ×3 (00:12→18:09)
[2022-01-23] MEDS: NA CHLORIDE 0.9% 1,000 ML IV SCH (00:14)
[2022-01-23 06:18] LABS: Potassium 3.6 mmol/L (3.5-5.1)
[2022-01-23] MEDS: Ciprofloxacin 200mg IV 200 MG/100 ML IV.SOLN. IV SCH (06:30)
[2022-01-23] MEDS: INSULIN -REGULAR HUMAN 50 UNIT/0.5 ML ML SQ SCH ×4 (07:30→21:36)
[2022-01-23] MEDS ORDERED: POTASSIUM CL SA 10 MEQ TAB PO ONE (09:00)
[2022-01-23] MEDS: Meropenem 1,000 MG in NA CHLORIDE 0.9% 100 ML IV SCH ×2 (09:57→20:16)
[2022-01-23] MEDS: GABAPENTIN 300 MG CAP PO SCH ×2 (09:57→20:16)
[2022-01-23] MEDS: CLOPIDOGREL 75 MG TABLET PO SCH (09:58)
[2022-01-23] MEDS: VITAMIN D 5,000 UNIT CAP PO SCH (09:58)
[2022-01-23 10:14] LABS: Specific Gravity 1.015 (1.005-1.030); Urine Bilirubin Negative (Negative); Urine Blood Trace-lysed (Negative); Urine Clarity Clear (Clear); Urine Color Yellow (Yellow); Urine Glucose Negative (Negative); Urine Protein Negative (Negative); Urine Urobilinogen 0.2 mg/dL (0.2-1.0); Urine pH 5.5 (5.0-7.0)
[2022-01-23 10:28] LABS: Urine Bacteria None Seen /HPF (<20); Urine RBC <5 /HPF (None Seen)
--- NOTE | 2022-01-23 11:03 | P.PN ---
Date of Service: 01/23/22 Nephrology note (S) Pt on IV Meropenem, denies any acute complaints, although acknowledges some on going loose stools, reports two BM in the last 24h. Denies any trouble emptying his bladder currently. PE: Vitals reviewed in EMR General: In no apparent distress, Oriented x3, Cooperative HEENT: Atraumatic Neck: Supple Respiratory: Normal air movement, b/l air entry, no rhonchi Cardiovascular: No edema, Regular rate/rhythm Gastrointestinal: Soft and benign, Non-distended Musculoskeletal: No clubbing, No contractures Integumentary: No rashes, No cyanosis Neurological: Normal speech, non focal Labs reviewed in EMR EXAM DESCRIPTION: CT - Abdomen Pelvis Wo Contrast - 01/21/2022 6:35 am CLINICAL HISTORY: The patient is 86 years old and is Male; Diarrhea TECHNIQUE: Axial computed tomography images of the abdomen and pelvis without intravenous contrast. Sagittal and coronal reformatted images were created and reviewed. This CT exam was performed using one or more of the following dose reduction techniques: automated exposure control, adjustment of the mA and/or kV according to patient size, and/or use of iterative reconstruction technique. COMPARISON: No relevant prior studies available. FINDINGS: Lung bases: Unremarkable. No mass. No consolidation. ABDOMEN: Liver: Unremarkable. Gallbladder and bile ducts: Gallbladder is surgically absent. No ductal dilation. Pancreas: Unremarkable. No ductal dilation. Spleen: Unremarkable. No splenomegaly. 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 Kidneys and ureters: Simple cyst in the right kidney. ACR White Paper guidelines (Herarmando, et al. JACR 2018; 15(2):264-273) suggest no follow-up is necessary. No obstructing stones. No hydronephrosis. Stomach and bowel: Suggestion of mild bowel wall thickening involving the rectum. No surrounding inflammatory changes. There is a 3.7 x 2.0 x 3.1 cm endoluminal fat density focus in the upper right colon near the hepatic flexure. No obstruction. PELVIS: Appendix: The appendix is normal. Bladder: Unremarkable. No stones. Reproductive: Unremarkable as visualized. ABDOMEN and PELVIS: Intraperitoneal space: Unremarkable. No free air. No significant fluid collection. Bones/joints: Disc space narrowing with degenerative endplate changes in the spine. No acute fracture. No dislocation. Soft tissues: Unremarkable. Vasculature: Aortic valvular prosthesis. The Scattered atherosclerotic vascular calcifications. No abdominal aortic aneurysm. Lymph nodes: Unremarkable. No enlarged lymph nodes. IMPRESSION: 1. Suggestion of mild bowel wall thickening involving the rectum. No surrounding inflammatory changes. Correlate with any concern for proctitis. 2. There is a 3.7 x 2.0 x 3.1 cm endoluminal fat density focus in the upper right colon near the hepatic flexure. Finding may represent stool, but a gastrointestinal tract lipoma is not excluded. 3. Additional non-emergent findings as above. Conclusions/Impression: Stage II KORI likely due to pre-renal state in part as pt was on significant amounts of diuretics it appears, likely some underlying CKD NOS, pt recalls seeing a Pipe Liner in the [place] area but does not recall baseline Cr level or eGFR -cont gentle hydration, metab profile acceptable. 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
[2022-01-23 11:04] LABS: UR PROTEIN 18.9 mg/dL (<11.9); Urine Protein/Creatinine Ratio 0.26 ratio (<0.15)
--- NOTE | 2022-01-23 12:07 | P.CNS ---
Date of Consult: 01/23/22 Chief Complaint: Gastroenteritis, syncope, volume depletion, KORI on CKD stage III History of Present Illness: The patient is an 86-year-old male with a past medical history significant of hypertension, hyperlipidemia, type 2 diabetes, hypothyroidism, and history of CKD who came into the ED secondary to nausea and diarrhea. Urine culture taken on 01/21 grew ESBL producing E. coli, repeat urine culture obtained on 01/23 is pending. Patient started on meropenem on 01/23, patient afebrile hemodynamically stable with normal white count. He denies dysuria, pyuria, hematuria, lower back/abdominal pain or hesitancy/urgency. Of note, approximately 1 month ago he underwent a urethral stricture procedure and states that since then he has had dribbling. He also notes that approximately 1 month ago he was unable to retract his foreskin and started having significant pain/swelling/erythema to the shaft of his penis and scrotal area. CT abdomen and pelvis showed mild bowel wall thickening involving the rectum concerning for possible proctitis. Patient denies cloudy urine, acute dysuria, spiking fevers/malaise, dyschezia, or tenesmus. Allergies No Known Allergies Allergy (Verified 10/24/21 07:23) Home Medications: Tamsulosin [Flomax*] 0.4 mg PO DAILY cap 08/17/21 Apixaban [Eliquis] 2.5 mg PO BID 12/03/21 Cefdinir [Cefdinir*] 300 mg PO BID 12/03/21 Cetirizine HCl [Zyrtec*] 5 mg PO DAILY 12/03/21 Clopidogrel Bisulfate [Plavix*] 75 mg PO DAILY 12/03/21 Colesevelam [Welchol*] 625 mg PO BIDWM 12/03/21 Gabapentin 600 mg PO BID 12/03/21 Pantoprazole [Protonix Tab*] 40 mg PO BID 12/03/21 Ramelteon 8 mg PO BEDTIME 12/03/21 Torsemide [Demadex*] 4 tab PO BID 12/03/21 carvediloL [Carvedilol] 6.25 mg PO BID 12/03/21 methocarbamoL [Methocarbamol] 500 mg PO BEDTIME PRN 12/03/21 Donepezil HCl [Aricept] 10 mg PO BID 12/13/21 Insulin -Regular Human [Novolin -R*] See Protocol SQ ACHS 12/13/21 Insulin Aspart [Insulin Aspart Flexpen] 20 unit SQ TIDWM 12/13/21 Levothyroxine Sodium 150 mcg PO DAILY 12/13/21 Ondansetron [Zofran (Odt)*] 4 mg PO Q8HP PRN 12/13/21 icosapent ethyL [Vascepa 1 gm Cap] 2 cap PO BID 12/13/21 Benzonatate [Tessalon Perle*] 100 mg PO TID PRN #30 cap 12/17/21 Furosemide [Lasix] 40 mg PO BID #60 tablet 12/17/21 Insulin Degludec [Tresiba] 10 unit SQ DAILY AFTER SUPPER #1 vial 12/17/21 Berhane [Berhane*] 1 pkt PO BID #60 powd.pack 12/17/21 Melatonin 5 mg PO BEDTIME PRN PRN #30 tablet 12/17/21 Spironolactone [Aldactone*] 25 mg PO DAILY #30 tab 12/17/21 - Past Medical/Surgical History Diabetic: Yes -: Diabetes mellitus type 2 -: Hypertension -: Hyperlipidemia -: Aortic stenosis requiring percutaneous replacement, December 2015 -: 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 -: Urinary retention -: BPH -: Gout -: Hypothyroidism -: GERD -: Atrial fibrillation -: Thyroidectomy -: CABG x4 vessels -: 2 cardiac stents -: Aortic valve replacement percutaneously -: Cholecystectomy Psychosocial/ Personal History: Currently resides at assisted living facility - Family History Father Medical History: Heart disease Brother Medical History: Heart disease - Social History Smoking Status: Unknown if ever smoked Alcohol use: No CD- Drugs: No Caffeine use: No Review of Systems 10-point ROS is otherwise unremarkable Physical Examination Temp Pulse Resp BP Pulse Ox 97.4 F 69 18 123/63 98 01/23/22 08:00 01/23/22 08:00 01/23/22 08:00 01/23/22 08:00 01/23/22 08:00 General: Alert, In no apparent distress HEENT: Atraumatic Neck: Supple Respiratory: Clear to auscultation bilaterally, Normal air movement Cardiovascular: No edema, Normal pulses, Regular rate/rhythm Capillary refill: <2 Seconds Gastrointestinal: Normal bowel sounds, Soft and benign Integumentary: Other (Bilateral buttocks/sacral coccyx moisture associated dermatitis/excoriation. This extends up to the base of the scrotum. Scrotal erythema and tenderness. Unable to retract foreskin/visualize urethra. Circumferential ring of purple discoloration noted at the distal portion of the penis.) Conclusions/Impression: Antibiotics: Meropenem: 01/23current Assessment/plan Urinary tract infection Urine culture grew ESBL producing E. coli on 01/21. Recommend continuing meropenem for 10 to 14 days. Can also try Bactrim however if this routes of therapy is chosen recommend monitoring patient for 24 hours while on this medication. Scrotal/penile swelling with discoloration Patient has been unable to retract his foreskin for approximately 1 month Unable to visualize urethra on physical examination Recommend urology consultation Anemia Continue to monitor H&H Diabetes Continue sliding scale insulin Plan of care discussed with Dr. Pal Thank you for consultation
[2022-01-23] MEDS: Ringers Lactate 1,000 ML IV SCH (12:23)
--- NOTE | 2022-01-23 18:18 | P.PN ---
Date of Service: 01/23/22 Subjective: continues with loose stool, x3 overnight no pain reports some pain along buttocks / scrotum ROS: 10 point ROS as noted above, otherwise negative Physical exam GEN: Alert, oriented, NAD HEENT: Normal conjunctiva, sclera anicteric CV: Regular rate and rhythm, no edema Pulm: Nonlabored respirations on room air ABD: Soft, nontender, nondistended Integumentary: excoriation along bilateral buttocks / scrotum. 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 describes what sounds like procedure for ureteral stricture done ~6 months ago Code: full Dispo: home, pt has 24hr caregiver at home ~1-2 days Time Spent Managing Pts Care (In Minutes): 35
[2022-01-23] MEDS: TAMSULOSIN 0.4 MG SR CAP PO SCH (20:16)
[2022-01-23 21:19] VITALS: O2SAT 96
--- NOTE | 2022-01-23 21:32 | CON ---
Reason For Consultation: Phimosis/penile issues as well as UTI/colitis. History Of Present Illness: Mr. Mercado is an 86-year-old gentleman with hypertension, hyperlipidemia, type 2 diabetes, hypothyroidism, chronic kidney disease, who developed nausea, vomiting, and diarrhe a and was admitted by his primary care physician because of acute on chronic kidney disease. Since h is admission, he has had urine culture testing that has revealed ESBL E coli resistant to ampicillin and the cephalosporins as well as fluoroquinolones, but sensitive to Bactrim, Unasyn/Augmentin, Zosyn and meropenem. He has a history of a urethral stricture that has been managed by Dr. Storm at [facility], and he has an appointment for followup on January 28. According to the patient, he underwent a procedure on his penis about a year ago, and since that procedure, he has been floridly incontinent. Since that time, the foreskin has gotten tighter and he can no longer retract it. It is not tender to his touch. Past Medical History: As above. Physical Examination: The patient was lying in the bed, in no acute distress. He was comfortable and well-appearing. Ther e was no dyspnea or sign of respiratory distress. He was alert, awake, and at least oriented to pers on and place. Genital exam revealed a Depend's undergarment wearing individual with an uncircumcised phallus with an unusual hemorrhagic nodular appearing rim of tissue within the foreskin that was non tender. Of note, he had significant hemorrhagic areas subcutaneously throughout his upper extremitie s and other parts of his body, presumably due to use of anticoagulant therapy. Laboratory Studies: 01/22/2022; white blood count 7.0, creatinine 2.19 with EGFR of 29. Assessment And Recommendations: An 86-year-old gentleman with hypertension, hyperlipidemia, type 2 d iabetes, hypothyroidism, chronic kidney disease with EGFR 29 and history of urethral stricture diseas e managed by Dr. Storm at [facility] with postoperative florid incontinence, now with phimos is, posthitis, and nodular and hemorrhagic skin changes of the prepuce causing a degree of concern. 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 The skin change is somewhat unusual in appearance and atypical of that for the usual posthitis or even BXO/balanitis xerotica obliterans. As a result, the nodular nature of these lesions is somewhat suspicious and has the potential for malignancy. To that end, I do yazmin vernell he would benefit from circumcision which would be centrally function as an excisional biopsy of t he foreskin lesions. This may certainly be done electively within a reasonable time frame by Dr. Annette culver assuming the patient is able to make his appointment on January 28, or if not, and he is unable to see Dr. Storm in a reasonable time frame, I can certainly manage it for him locally. Regarding his incontinence, it sounds as if there may have been some injury to the striated sphincter that occurre d during Dr. Storm's management of his urethral stricture disease. The patient is suggested Dr. Annette culver was planning to place an artificial urethral sphincter. So in this case, I simply recommend the following: Check a bladder scan postvoid residual, and if the postvoid residual was less than 150 cc , the issues of his continence can be managed by Dr. Storm as an outpatient. If, however, he is in overflow incontinence and retaining a significant quantity of urine, i.e. greater than 250-300 cc, in that case, we would place a urethral catheter, which I would place to manage the incontinence which is occurring due to overflow of retained urine. JERICA/MODL Voice ID: [id number] Report ID: [id number]
[2022-01-24] MEDS ORDERED: MELATONIN 5 MG TABLET PO PRN (00:08)
[2022-01-24] MEDS: Ringers Lactate 1,000 ML IV SCH ×2 (00:20→10:03)
[2022-01-24] MEDS: HEPARIN 5000 UNIT/ML 1 ML VIAL SQ SCH ×2 (00:24→10:06)
[2022-01-24 03:50] LABS: Absolute Lymphocytes (CBC) 2.6 K/uL (0.7-4.9); Hematocrit 30.6 % (39.6-49.0); Lymphocytes % 41.9 % (15.3-44.8); MCV 85.7 fL (80-100); MPV 7.8 fL (7.6-11.3); RBC Red Blood Cell Count 3.58 M/uL (4.33-5.43)
[2022-01-24 03:55] LABS: Potassium 3.7 mmol/L (3.5-5.1)
[2022-01-24] MEDS ORDERED: LEVOTHYROXINE SOD 0.05 MG TABLET PO SCH (06:30)
[2022-01-24] MEDS: INSULIN -REGULAR HUMAN 50 UNIT/0.5 ML ML SQ SCH ×3 (07:30→16:30)
[2022-01-24] MEDS ORDERED: POTASSIUM CL SA 10 MEQ TAB PO ONE (09:00)
[2022-01-24] MEDS: Meropenem 1,000 MG in NA CHLORIDE 0.9% 100 ML IV SCH (10:04)
[2022-01-24] MEDS: CLOPIDOGREL 75 MG TABLET PO SCH (10:06)
[2022-01-24] MEDS: GABAPENTIN 300 MG CAP PO SCH (10:06)
[2022-01-24] MEDS: VITAMIN D 5,000 UNIT CAP PO SCH (10:06)
--- NOTE | 2022-01-24 10:36 | P.PN ---
Date of Service: 01/24/22 Nephrology note (S) Pt continues to get IV Abx, no acute complaints, on LFNC here but denies dyspnea, reports nocturnal O2 use with CPAP at home. Acknowledges possible hx of CHF but does not know any more about this or when it was diagnosed and whether he is on diuretics at home. PE: Vitals reviewed in EMR General: In no apparent distress, Oriented x3, Cooperative HEENT: Atraumatic Neck: Supple Respiratory: Normal air movement, b/l air entry, no rhonchi Cardiovascular: No edema, Regular rate/rhythm Gastrointestinal: Soft and benign, Non-distended Musculoskeletal: No clubbing, No contractures Integumentary: No rashes, No cyanosis Neurological: Normal speech, non focal Labs reviewed in EMR EXAM DESCRIPTION: CT - Abdomen Pelvis Wo Contrast - 01/21/2022 6:35 am CLINICAL HISTORY: The patient is 86 years old and is Male; Diarrhea TECHNIQUE: Axial computed tomography images of the abdomen and pelvis without intravenous contrast. Sagittal and coronal reformatted images were created and reviewed. This CT exam was performed using one or more of the following dose reduction techniques: automated exposure control, adjustment of the mA and/or kV according to patient size, and/or use of iterative reconstruction technique. COMPARISON: No relevant prior studies available. FINDINGS: Lung bases: Unremarkable. No mass. No consolidation. ABDOMEN: Liver: Unremarkable. Gallbladder and bile ducts: Gallbladder is surgically absent. No ductal dilation. Pancreas: Unremarkable. No ductal dilation. Spleen: Unremarkable. No splenomegaly. 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 Kidneys and ureters: Simple cyst in the right kidney. ACR White Paper guidelines (Herarmando, et al. JACR 2018; 15(2):264-273) suggest no follow-up is necessary. No obstructing stones. No hydronephrosis. Stomach and bowel: Suggestion of mild bowel wall thickening involving the rectum. No surrounding inflammatory changes. There is a 3.7 x 2.0 x 3.1 cm endoluminal fat density focus in the upper right colon near the hepatic flexure. No obstruction. PELVIS: Appendix: The appendix is normal. Bladder: Unremarkable. No stones. Reproductive: Unremarkable as visualized. ABDOMEN and PELVIS: Intraperitoneal space: Unremarkable. No free air. No significant fluid collection. Bones/joints: Disc space narrowing with degenerative endplate changes in the spine. No acute fracture. No dislocation. Soft tissues: Unremarkable. Vasculature: Aortic valvular prosthesis. The Scattered atherosclerotic vascular calcifications. No abdominal aortic aneurysm. Lymph nodes: Unremarkable. No enlarged lymph nodes. IMPRESSION: 1. Suggestion of mild bowel wall thickening involving the rectum. No surrounding inflammatory changes. Correlate with any concern for proctitis. 2. There is a 3.7 x 2.0 x 3.1 cm endoluminal fat density focus in the upper right colon near the hepatic flexure. Finding may represent stool, but a gastrointestinal tract lipoma is not excluded. 3. Additional non-emergent findings as above. 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 Hold diuretics (lasix, spironolactone) on discharge and will assess their need as OP. Ok to use Bactrim for ESBL infection if no other PO options, will check labs within a few days of discharge to ensure K level ok, avoid TIGRE inhibitors or Spironolactone to prevent hyperkalemia Hypocalcemia -checked 25 hydroxy Vit D and PTH levels, former is > 30 and latter just over 150, Trend BPH with LUTS +/- uretheral stricture s/p dilation in the past -Restarted Flomax, no hydro or bladder distention on imaging UTI/cystitis with Ecoli, ESBL Defer to primary team/ID to see if pt can be switched to PO Augmentin or other PO Abx based on sensitivities/MICHELLE after initial Meropenem doses Naseem Diaz MD, ANUPAM
--- NOTE | 2022-01-24 11:15 | P.PN ---
Subjective Date of Service: 01/24/22 Chief Complaint: Gastroenteritis, syncope, volume depletion, KORI on CKD stage III Patient seen and examined at bedside, afebrile hemodynamically stable. Creatinine downtrending, potassium within normal range. Stated he had 1 episode of diarrhea today with some GI discomfort. He believes it is secondary to his IV antibiotics, patient has been switched over to oral Bactrim based on urine culture susceptibility report. Review of Systems 10-point ROS is otherwise unremarkable Physical Examination - Vital Signs Temperature: 97.0 F Blood Pressure: 132/62 Pulse: 73 Respirations: 18 Pulse Ox (%): 100 - Studies Laboratory Last Values WBC 8.8 K/uL (4.3-10.9) 01/21/22 02:03 RBC 4.45 M/uL (4.33-5.43) 01/21/22 02:03 Hgb 12.2 g/dL (13.6-17.9) L 01/21/22 02:03 Hct 37.6 % (39.6-49.0) L 01/21/22 02:03 MCV 84.4 fL (80-100) 01/21/22 02:03 MCH 27.5 pg (27.0-35.0) 01/21/22 02:03 MCHC 32.6 g/dL (32.0-36.0) 01/21/22 02:03 RDW 20.9 % (12.1-15.2) H 01/21/22 02:03 Plt Count 205 K/uL (152-406) 01/21/22 02:03 MPV 7.8 fL (7.6-11.3) 01/21/22 02:03 Neutrophils % 56.6 % (41.7-73.7) 01/21/22 02:03 Lymphocytes % 34.3 % (15.3-44.8) 01/21/22 02:03 Monocytes % 6.8 % (3.3-12.3) 01/21/22 02:03 Eosinophils % 1.9 % (0-4.4) 01/21/22 02:03 Basophils % 0.4 % (0-1.3) 01/21/22 02:03 Absolute Neutrophils 5.0 K/uL (1.8-8.0) 01/21/22 02:03 Absolute Lymphocytes 3.0 K/uL (0.7-4.9) 01/21/22 02:03 Absolute Monocytes 0.6 K/uL (0.1-1.3) 01/21/22 02:03 Absolute Eosinophils 0.2 K/uL (0-0.5) 01/21/22 02:03 Absolute Basophils 0.0 K/uL (0-0.5) 01/21/22 02:03 Platelet Estimate Adeq 01/21/22 02:03 Anisocytosis 1+ 01/21/22 02:03 Microcytosis 1+ 01/21/22 02:03 Morphology Comment Noted (NOT SEEN) 01/21/22 02:03 PT 14.6 SECONDS (9.5-12.5) H 01/21/22 02:03 INR 1.32 01/21/22 02:03 APTT 33.9 SECONDS (24.3-36.9) 01/21/22 02:03 Sodium 135 mmol/L (136-145) L 01/21/22 02:03 Potassium 3.8 mmol/L (3.5-5.1) 01/21/22 02:03 Chloride 101 mmol/L (98-107) 01/21/22 02:03 Carbon Dioxide 24 mmol/L (21-32) 01/21/22 02:03 Anion Gap 13.8 mEq/L (5.0-15.0) 01/21/22 02:03 BUN 83 mg/dL (7-18) H 01/21/22 02:03 Creatinine 3.92 mg/dL (0.55-1.3) H 01/21/22 02:03 Est GFR (CKD-EPI) 14 ml/min (=/>90) L 01/21/22 02:03 Glucose 126 mg/dL (74-106) H 01/21/22 02:03 POC Glucose 108 mg/dL (65-120) 01/21/22 03:42 Calcium 7.8 mg/dL (8.5-10.1) L 01/21/22 02:03 Magnesium 2.1 mg/dL (1.8-2.4) 01/21/22 02:03 Total Bilirubin 0.5 mg/dL (0.2-1.0) 01/21/22 02:03 Direct Bilirubin 0.1 mg/dL (0-0.2) 01/21/22 02:03 AST 13 U/L (15-37) L 01/21/22 02:03 ALT 19 U/L (12-78) 01/21/22 02:03 Alkaline Phosphatase 87 U/L (45-117) 01/21/22 02:03 Creatine Kinase 63 U/L (39-308) 01/21/22 02:03 CK-MB (CK-2) 3.2 ng/mL (1.0-3.6) 01/21/22 02:03 Troponin I High Sens 23.0 pg/mL (<58.9) 01/21/22 02:03 Serum Total Protein 7.9 g/dL (6.4-8.2) 01/21/22 02:03 Albumin 3.5 g/dL (3.4-5.0) 01/21/22 02:03 Globulin 4.4 g/dL (2.3-3.5) H 01/21/22 02:03 Albumin/Globulin Ratio 0.8 (1.1-1.8) L 01/21/22 02:03 Lipase 283 U/L (73-393) 01/21/22 02:03 Urine pH 5.0 (5.0-7.0) 01/21/22 02:29 Ur Specific [place] 1.020 (1.005-1.030) 01/21/22 02:29 Glucose (UA)(Auto) Negative (Negative) 01/21/22 02:29 Urine Ketones Negative (Negative) 01/21/22 02:29 Urine Blood 2+ (Negative) H 01/21/22 02:29 Urine Nitrite Negative (Negative) 01/21/22 02:29 Ur Leukocyte Esterase 3+ (Negative) H 01/21/22 02:29 Urine RBC <5 /HPF (None Seen) 01/21/22 02:30 Urine WBC >50 /HPF (<5) H 01/21/22 02:30 Ur Squamous Epith Cells <5 /HPF (None Seen) 01/21/22 02:30 U Non-Squamous Epi Cells <5 /HPF (None Seen) 01/21/22 02:30 Urine Bacteria <20 /HPF (<20) 01/21/22 02:30 Hyaline Casts 0-5 /LPF (None Seen) 01/21/22 02:30 Urine Total Protein 1+ (Negative) H 01/21/22 02:29 SARS-CoV-2 Rap RNA(RT-PCR) Negative (NEGATIVE) 01/21/22 02:17 Smear Scan Ok (OK) 01/21/22 02:03 Microbiology Data (last 24 hrs): 01/21/22 02:30 Clean Catch Urine [place] Count - Final >100,000 CFU/ML. 01/21/22 02:30 Clean Catch Urine - Final Escherichia Coli Esbl Gram Neg Jonh Assessment And Plan - Plan Physical exam General: Alert, In no apparent distress HEENT: Atraumatic Neck: Supple Respiratory: Clear to auscultation bilaterally, Normal air movement Cardiovascular: No edema, Normal pulses, Regular rate/rhythm Capillary refill: <2 Seconds Gastrointestinal: Normal bowel sounds, Soft and benign Integumentary: Other (Bilateral buttocks/sacral coccyx moisture associated dermatitis/excoriation. This extends up to the base of the scrotum. Scrotal erythema and tenderness. Unable to retract foreskin/visualize urethral meatus. Circumferential ring of purple discoloration noted at the distal portion of the penis.) Conclusions/Impression: Antibiotics: Bactrim: 01/24current Meropenem: Assessment/plan Urinary tract infection Urine culture grew ESBL producing E. coli on 01/21. -Urine culture showed sensitivity to oral Bactrim. Patient's current creatinine clearance is 35.5 ml/min, as such no renal dosing required. Recommend continuing this for 10 days. Scrotal/penile swelling with discoloration Patient has been unable to retract his foreskin for approximately 1 month Recommend urology consultation Anemia Continue to monitor H&H Diabetes Continue sliding scale insulin Plan of care discussed with Dr. Pal Thank you for consultation
--- OUTSIDE RECORDS SUMMARY | 2022-01-24 11:35 | XMS REPORT | Continuity of Care Document ---
:1935 Author Organization [facility] t Address [address] [place] [address] Care Team Providers Name Role Phone Vianey SUÁREZ Primary Care Physician Unavailable ABBIE Attending Clinician Unavailable LINDA LEIVA Attending Clinician Unavailable Brittany_Lina Attending Clinician Unavailable FRANKI Attending Clinician Unavailable JOSE ARMANDO Attending Clinician Unavailable Leonid YOU S Attending Clinician Gladys JAQUEZ Attending [...] Attending Clinician Unavailable KELVIN Attending Clinician Unavailable Brittany_Lina Admitting Clinician Unavailable JHON ALFARO Admitting Clinician Unavailable [...] Date Gladys luciano MEDICARE PART A AND [id number] 2016 B 00:00:00 MEDICARE B-[place]: [id number] 2001 [employer] 00:00:00 [facility] [id number] 2018 OPTIONS (MEDICARE 00:00:00 SUPPLEMENT) MEDICARE A B [id number] 2001 00:00:00 [facility] [id number] 2021 HEALTHCARE 00:00:00 BCBS PPO POS EPO [id number] 2015 CHOICE 00:00:00 Problems Condition Condition Condition Status Onset Resolution Last Treating Co mments Source Name Details Category Date Date Treatment Clinician Date No known No known Disease Unive rs active active ity of problems problems [facility] Allergies, Adverse Reactions, Alerts Allergy Allergy Status Severity Reaction(s) Onset Inactive Treating Comm ents Source Name Type Date Date Clinician NO KNOWN Allergy Active [facility] NO KNOWN Drug Active Univers ALLERGIE Class ity of S [facility] Social History Social Habit Start Date Stop Date Quantity Comments Source Exposure to 2021-09-02 2021-10-02 Not sure [facility]-CoV2 00:00:00 14:22:00 [facility] (event) Branch Alcohol intake 2021-10-02 2021-10-02 Current [facility] 00:00:00 00:00:00 non-drinker of [facility] alcohol Branch (finding) Tobacco use and 2017-04-08 2017-04-08 Never used Universit y of exposure 00:00:00 00:00:00 [facility] Sex Ass[birth year] At [birth year] Universit y of 00:00:00 00:00:00 [facility] Smoking Status Start Date Stop Date Source Never smoker [facility] Medications Ordered Filled Start Stop Current Ordering Indication Dosage Frequency Signature Comments Components Source Medication Medication Date Date Medication? Clinician (SIG) Name Name andrés 2021- No [id number] 80mg Univers ne 11-27 ity of acetonide 19:45: 18:33 [place] (KENALOG) 00 :00 Medical injection Branch 80 mg triamcinlisa 2021- No [id number] 80mg 80 mg, [facility] ne 11-27 Intra-claudette ity of acetonide 19:45: 18:33 brian [place] (KENALOG) 00 :00 ONCE, 1 Medical injection dose, On Branch 80 mg 11/27/21 at 1445, Routine febuxostat Yes Take by UT (Uloric) 40 [...] 50 each day capsule before breakfast. gabapentin 0 Yes 300mg Q.5D Take 300 UT (Neurontin) 6-28 mg by Health 300 MG 16:47: mouth 2 capsule 50 (two) times a day. ramelteon Yes 8mg Take 8 mg UT (Rozerem) 8 6-28 by mouth Heal th MG tablet 16:47: every 50 night. donepezil 0 Yes 10mg Take 10 mg UT (Aricept) [...] 4 capsule 50 (four) times a day. finasteride Yes TAKE 1 [...] 00:00: (one) time 00 each day. clopidogrel 202-0 Yes 75mg QD Take 75 mg UT [...] 00 (two) times a day. Eliquis 2.5 1-0 Yes 2.5mg Q.5D Take 2.5 U T MG tablet 4-13 mg by Health 00:00: mouth 2 00 (two) times a day. Eliquis 2.5 1-0 Yes 2.5mg Q.5D Take 2.5 U T [...] tablet 00 (one) time each day. Jardiance 2020-0 Yes 10mg QD Take 10 mg UT 10 MG 3-11 by mouth 1 Health 00:00: (one) time 00 each day. Jardiance 2020-0 Yes 10mg QD Take 10 mg UT 10 MG 3-11 by mouth 1 Health 00:00: (one) time 00 each day. Jardiance 2020-0 Yes 10mg QD Take 10 mg UT 10 MG 3-11 by mouth 1 Health 00:00: (one) time 00 each day. Jardiance 2020-0 Yes 10mg QD Take 10 mg UT 10 MG 3-11 by mouth 1 Health 00:00: (one) time 00 each day. famotidine 2020-0 Yes 20mg Take 20 mg U T [...] 1 tablet 00 (one) time each day. [facility]07 Yes TAKE ONE UT MG 0-22 (1) Health 00:00: TABLET(S) 00 BY MOUTH ONCE A DAY WITH BREAKFAST. [facility] 2019-07 Yes TAKE ONE UT MG 0-22 (1) Health 00:00: TABLET(S) 00 BY MOUTH ONCE A DAY WITH BREAKFAST. [facility] 5 2019-07 Yes TAKE ONE UT MG 0-22 (1) Health 00:00: TABLET(S) 00 BY MOUTH ONCE A DAY WITH BREAKFAST. [facility] 5 2019-07 Yes TAKE ONE UT MG [...] DAILY ity of mg tablet 10:04: NEEDED [place] [address] Medical Branch Dexlansopra 2016-07 Yes Take by Un josh zole 0-03 mouth. ity of (DEXILANT) 10:04: [place] 60 57 Medical capsule Branch amiodarone 2016-07 Yes 200mg Take 200 Un josh 200 mg 0-03 mg by ity of tablet 10:04: mouth. [place] 56 Medical Branch aspirin 325 2016-07 Yes 325mg Take 325 U nivers mg tablet 0-03 mg by ity of 10:04: mouth. [address] Azelastine 2016-07 Yes Use in [facility] ers (ASTEPRO) 0-03 each ity of 0.15 % 10:04: nostril. [place] (205.5 mcg) [address] [place] [address] nasal spray [place] rosuvastati 2016-07 Yes 1 TABLET Un josh n (CRESTOR) 0-03 DAILY ity of 10 mg 09:38: [address] doxazosin 4 2016-07 Yes 2mg Take 2 mg U nivers mg tablet 0-03 by mouth. ity o f 09:38: [address] fosinopril 2016-07 Yes 20mg Take 20 mg U nivers 20 mg 0-03 by mouth. ity of tablet 09:38: [address] cephALEXin Yes TAKE ONE Uni vers 500 mg 9-17 (1) ity of capsule 00:00: [place] 00 BY MOUTH Medical EVERY SIX Branch HOURS FOR 10 DAYS. CONTOUR Yes Univers NEXT STRIPS 8-08 ity of strip 00:00: [address] allopurinol Yes Univer s 100 mg 7-27 ity of tablet 00:00: [address] calcitriol Yes TAKE ONE Uni vers 0.25 mcg 7-18 (1) ity of capsule 00:00: [place] 00 BY MOUTH Medical ONCE A Branch DAY. levothyroxi Yes TAKE ONE Un josh ne 200 mcg 7-13 (1) ity of tablet 00:00: TABLET(S) [place] [address] BY MOUTH Medical ONCE A DAY Branch IN THE MORNING. Vital Signs Vital Name Observation Time Observation Value Comments Source Systolic blood 2021-10-02 19:26:00 106 [facility]Hg[facility] Diastolic blood 2021-10-02 19:26:00 66 mm[facility]Hg[facility] Heart rate 2021-10-02 19:26:00 72 /min [facility] Body height 2021-10-02 19:26:00 180.3 cm [facility] Body weight 2021-10-02 19:26:00 90.719 kg [facility] BMI 2021-10-02 19:26:00 27.89 kg/m2 Universi [facility] Oxygen saturation 2021-10-02 19:26:00 97 /min [facility] in Arterial blood Medical Br anch [...] Clinicians Facility Department ID 2020-11-13 Outpatient ABBIE [facility] [id number] [place] 15:45:00 VIRAJ Healt [facility] 2019-11-18 Outpatient ABBIE [facility] CAR 7512 M [facility] 08:31:52 VIRAJ 2022-01-14 2022-01-14 Outpatient Brittany_M [facility] [id number] [place] 11:06:00 11:06:00 [id number] [facility] 2021-11-20 2021-11-20 Outpatient EMELY DOAN [facility] [id number] [place] 00:00:00 00:00:[address] 2021-11-05 2021-11-05 Outpatient JOSE ARMANDO [facility] [id number] [place] 00:00:00 00:00:00 RICHARD [address] 2021-10-02 2021-10-02 [facility] [id number] Univers 15:30:00 15:31:03 Visit [facility] [id number] y [facility] [id number] Anurag as SHALONDA?BLEA [id number] [address] MEDICAL OFFICE [facility] 2021-10-02 2021-10-02 [facility] [id number] Univers 15:30:00 15:31:03 [facility] 2021-09-23 2021-09-28 Inpatient ER SHIEH, [facility] [id number] [facility] 03:10:00 10:36:00 GARRETT 2021-07-30 2021-07-30 Outpatient JOSE ARMANDO [facility] [id number] [place] 00:00:00 00:00:00 RICHARD 378 Meth zafar 2021-06-27 2021-07-04 Outpatient INGRID [facility] [id number] [place] 00:00:00 00:00:00 ALBERT [address] 2021-06-05 2021-06-05 Outpatient EMELY DOAN [facility] [id number] [place] 00:00:00 00:00:[address] 2021-06-05 2021-06-05 Outpatient EMELY DOAN [facility] [id number] [place] 00:00:00 00:00:[address] 2021-05-03 2021-05-03 Outpatient JOSE ARMANDO [facility] [id number] [place] 00:00:00 00:00:00 RICHARD [address] 2021-03-28 2021-03-28 Outpatient JOSE ARMANDO [facility] [id number] [place] 00:00:00 00:00:00 RICHARD [address] 2021-03-02 2021-03-02 Outpatient EMELY DOAN [facility] [id number] [place] 00:00:00 00:00:[address] 2021-01-12 2021-01-12 Outpatient MAIRA CHEN [facility] [id number] [place] 00:00:00 00:00:[address] 2021-01-03 2021-01-03 Outpatient RADHA, [facility] [id number] [place] 00:00:00 00:00:00 ALEJANDRO [address] 2021-01-03 2021-01-03 Outpatient ZAND, [facility] [id number] [place] 00:00:00 00:00:00 ALEJANDRO [address] 2021-01-01 2021-01-01 Office TRINH Leiva 6400 [id number] 11:18:17 12:10:[address] [id number] [id number] [id number] 2021-01-01 2021-01-01 Office TRINH Leiva 6400 [id number] [id number] [place] 11:18:17 12:10:[address] [id number] [facility] 9.2.7.2.686 [id number] 2020-12-27 2020-12-27 Telephone TRINH Leiva [facility] [id number] NE 00:00:00 00:00:00 Viraj SUGAR 350.1.13.58 Health [facility]NOTE 3] 9.2.7.2.686 [address] [id number] AND 1 WOMENS 2020-11-10 2020-11-10 Outpatient EMELY DOAN [facility] [id number] [place] 00:00:00 00:00:[address] 2020-11-01 2020-11-01 Outpatient JOSE ARMANDO, [facility] [id number] [place] 00:00:00 00:00:00 RICHARD [address] 2020-10-23 2020-10-27 Inpatient AIXA, [facility] 064 [id number] [place] 00:00:00 00:00:00 PAULY [address] 2020-09-22 2020-09-22 Outpatient EMELY DOAN [facility] [id number] [place] 00:00:00 00:00:[address] 2020-08-29 2020-09-11 Inpatient AIXA, [facility] [id number] [place] 00:00:00 00:00:00 PAULY [address] 2020-08-25 2020-08-31 Outpatient EMELY DOAN [facility] [id number] [place] 00:00:00 00:00:[address] 2020-08-15 2020-08-19 Inpatient XU, [facility] 064 [id number] [place] 00:00:00 00:00:00 MARIAH [address] 2020-07-28 2020-07-28 Outpatient EMELY DOAN [facility] [id number] [place] 00:00:00 00:00:[address] 2020-07-28 2020-07-28 Outpatient EMELY DOAN [facility] [id number] [place] 00:00:00 00:00:[address] 2020-07-14 2020-07-14 Outpatient CHENMAIRA [facility] [id number] [place] 00:00:00 00:00:[address] 2020-07-13 2020-07-13 Outpatient JOSE ARMANDO, [facility] [id number] [place] 00:00:00 00:00:00 RICHARD [address] 2020-07-13 2020-07-13 Outpatient JAIJAKUL, [facility] [id number] [place] 00:00:00 00:00:00 SIRAYA [address] 2020-07-12 2020-07-12 Outpatient [facility] [id number] [place] 00:00:00 00:00:[address] 2020-05-26 2020-05-26 Outpatient EMELY DOAN [facility] [id number] [place] 00:00:00 00:00:[address] 2020-05-23 2020-05-23 Outpatient DELAFLOR-SA [facility] [id number] [place] 00:00:00 00:00:00 NTAANA, [address] 2020-05-08 2020-05-18 Inpatient KEENAN [facility] [id number] [place] 00:00:00 00:00:00 ANETTE [address] 2020-05-05 2020-05-05 Outpatient EMELY DOAN [facility] [id number] [place] 00:00:00 00:00:[address] 2020-05-03 2020-05-03 Outpatient JOSE ARMANDO [facility] [id number] [place] 00:00:00 00:00:00 RICHARD [address] 2020-04-26 2020-04-26 Outpatient ALIDA, [facility] 049 [id number] [place] 00:00:00 00:00:00 ASHRITH [address] 2020-04-24 2020-04-24 Outpatient EMELY DOAN [facility] [id number] [place] 00:00:00 00:00:[address] 2020-04-14 2020-04-14 Outpatient EMELY DOAN [facility] [id number] [place] 00:00:00 00:00:[address] 2020-04-03 2020-04-03 Outpatient Daniel_T VFP VFP [id number] 03-26 [facility] 01:57:00 01:57:00 [id number] Family Practic e 2020-03-17 2020-03-17 Outpatient EMELY DOAN [facility] [id number] [place] 00:00:00 00:00:[address] 2020-03-09 2020-03-09 Outpatient DELAFLOR-SA [facility] [id number] [place] 00:00:00 00:00:00 NTAANA, [address] 2020-02-24 2020-03-02 Inpatient EMELY DOAN [facility] 021 [id number] [place] 00:00:00 00:00:[address] 2020-02-23 2020-02-23 Outpatient EMELY DOAN [facility] [id number] [place] 00:00:00 00:00:[address] 2020-02-11 2020-02-11 Outpatient EMELY DOAN [facility] [id number] [place] 00:00:00 00:00:[address] 2020-02-04 2020-02-04 Outpatient JOSE ARMANDO [facility] [id number] [place] 00:00:00 00:00:00 RICHARD [address] 2020-01-20 2020-01-25 Inpatient SAVANA, [facility] 064 [id number] [place] 00:00:00 00:00:00 AMITKUMAR [address] 2020-01-12 2020-01-12 Outpatient MAIRA CHEN [facility] [id number] [place] 00:00:00 00:00:[address] 2019-12-31 2019-12-31 Outpatient EMELY DOAN [facility] [id number] [place] 00:00:00 00:00:[address] 2019-12-31 2019-12-31 Outpatient EMELY DOAN [facility] [id number] [place] 00:00:00 00:00:[address] 2019-12-27 2019-12-27 Outpatient TRISHA, [facility] [id number] [place] 00:00:00 00:00:00 TRISHA [address] 2019-12-17 2019-12-18 Outpatient SOTO, [facility] [id number] [place] 00:00:00 00:00:00 MERCY [address] 2019-11-18 2019-11-18 Outpatient KELVIN, [facility] [id number] [place] 00:00:00 00:00:00 MAHWASH [address] 2019-11-04 2019-11-04 Outpatient JOSE ARMANDO, [facility] [id number] [place] 00:00:00 00:00:00 RICHARD [address] 2019-10-19 2019-10-19 Outpatient JOSE ARMANDO, [facility] [id number] [place] 00:00:00 00:00:00 RICHARD [address] 2019-09-17 2019-09-17 Outpatient EMELY DOAN [facility] [id number] [place] 00:00:00 00:00:[address] 2019-09-02 2019-09-09 Inpatient AIXA, [facility] 060 [id number] [place] 00:00:00 00:00:00 PAULY [address] Results Test Description Test Time Test Comments Results Result Comments Source BLOOD CULTURE 2021-09-28 10:00:39 Test Item Value Reference Range Interpretation Comme nts CULTURE (BEAKER) (test code = 1095) No growth in 5 days BLOOD [id number] 10:00:38 Test Item Value Reference Range Interpretation Comments CULTURE (BEAKER) (test No growth in 5 days code = 1095) [id number] 08:17:33 Test Item Value Reference Range Interpretation Comments MAGNESIUM (BEAKER) 1.8 mg/dL 1.5-3.0 Specimen slightly (test code = 627) hemolyzed Steam Trap Man ID - DSENSONOperator ID - DSENSONOperator ID - DSENSONOperator ID - DSENSONBASIC METABOLIC [id number] 05:35:07 Test Item Value Reference Range Interpretation [...] S NOT APPLICABLE FOR DIALYSIS PATIEN TS. Steam Trap Man ID - [id number] ID - [id number] ID - LJWF62Ocxausfy ID - GKJR88Ufzymfom ID - ZPWD08Cqyheasj ID - QYNB36Efggzlnc ID - BCOK82Zinfrikx ID - WQDE24Zjdggspr ID - MMAS50Gmjxywos ID - XHMZ37Kidynawy ID - POHG66Kupgwlne ID - HUQM48Eagutmgg ID - [id number] W/PLT COUNT & AUTO [id number] 05:04:38 Test Item Value Reference Range Interpretation [...] PERCENT (BEAKER) (test code = 2801) POCT-GLUCOSE [id number] 04:47:27 Test Item Value Reference Range Interpretation Comments POC-GLUCOSE METER 98 mg/dL 70-110 : TESTED A T [facility] [address]17 (BEAKER) (test code = [address]) [place] [id number]: Steam Trap Man/Techni kate ID = [id number] for Math ew, Michelle POCT-GLUCOSE [id number] 23:00:37 Test Item Value Reference Range Interpretation Comments POC-GLUCOSE METER 100 mg/dL 70-110 : TESTED A T [facility] [address] (BEAKER) (test code [address], = 1538) [place] [address]: Steam Trap Man/Techni kate ID = [id number] for Math ew, Michelle POCT-GLUCOSE [id number] 15:20:37 Test Item Value Reference Range Interpretation Comments POC-GLUCOSE METER 126 mg/dL 70-110 H : TESTED A T [facility] [address] (BEAKER) (test code [address], = 1538) [place] [address]: Steam Trap Man/Techni kate ID = [id number] for Will iams, Caro POCT-GLUCOSE [id number] 11:52:27 Test Item Value Reference Range Interpretation Comments POC-GLUCOSE METER 94 mg/dL 70-110 : TESTED A T [facility] [address] (BEAKER) (test code = [address], [address]) [place] [address]: Steam Trap Man/Techni kate ID = [id number] for Will iams, Caro POCT-GLUCOSE [id number] 06:47:47 Test Item Value Reference Range Interpretation Comments POC-GLUCOSE METER 92 mg/dL 70-110 : TESTED A T [facility] [address] (BEAKER) (test code = [address], [address]) [place] [address]: Steam Trap Man/Techni kate ID = [id number] for Katelyn perezBridget BASIC METABOLIC [id number] 05:34:54 Test Item Value Reference Range Interpretation [...] S NOT APPLICABLE FOR DIALYSIS PATIEN TS. Steam Trap Man ID - NSUVAGIYAOperator ID - NSUVAGIYAOperator ID - NSUVAGIYAOperator ID - NSUVAGIYAOperatorID - NSUVAGIYAOperator ID - NSUVAGIYAOperator ID - NSUVAGIYAOperator ID - NSUVAGIYAOperator ID - NSUVAGIYAOperator ID - NSUVAGIYAOperator ID - NSUVAGIYAOperator ID - NSUVAGIYAOperator ID - NSUVAGIYA CBC W/PLT COUNT & AUTO [id number] 05:03:55 Test Item Value Reference Range Interpretation [...] PERCENT (BEAKER) (test code = 2801) POCT-GLUCOSE [id number] 21:46:46 Test Item Value Reference Range Interpretation Comments POC-GLUCOSE METER 163 mg/dL 70-110 H : TESTED A T [facility] 1317 (BEAKER) (test code [facility], = 1538) [facility] 77 478: Steam Trap Man/Techni kate ID = [id number] for Mali Malloy POCT-GLUCOSE [id number] 17:12:16 Test Item Value Reference Range Interpretation Comments POC-GLUCOSE METER 132 mg/dL 70-110 H : Notified RN/MD: TESTED (BEAKER) (test code AT [facility] [address] = 1538) [facility] [address]: Steam Trap Man/Techni kate ID = [id number] for Laws on, Dariaa POCT-GLUCOSE [id number] 11:09:45 Test Item Value Reference Range Interpretation Comments POC-GLUCOSE METER 128 mg/dL 70-110 H : Notified RN/MD: TESTED (BEAKER) (test code AT [facility] [address] = 1538) [place] [address]: Steam Trap Man/Techni kate ID = [id number] for Laws on, Latishia BASIC METABOLIC [id number] 10:11:46 Test Item Value Reference Range Interpretation [...] m DATA TO CALCULA TE ESTIMATED GFR. Steam Trap Man ID - [id number] ID - JUJVV735Qnqerjdn ID - RXZSC238Wopsvfyn ID - CLFPM108Nyoubvki ID - YPHMC214Zzjrazoo ID - HMMVB519Qzaumdaw ID - EWBHS034Bfugncom ID - RJLHN700Mhpxasgc ID - SSKCQ460Jannrlrl ID - [id number] [id number] 10:09:12 Test Item Value Reference Range Interpretation Comments MAGNESIUM (BEAKER) (test code = 2.0 mg/dL 1.5-3.0 627) Steam Trap Man ID - [id number] ID - [id number] ID - [id number] ID - [id number] W/PLT COUNT & AUTO [id number] 09:35:09 Test Item Value Reference Range Interpretation [...] PERCENT (BEAKER) (test code = 2801) POCT-GLUCOSE [id number] 06:09:14 Test Item Value Reference Range Interpretation Comments POC-GLUCOSE METER 84 mg/dL 70-110 : TESTED A T [facility] [address] (BEAKER) (test code = [address], 15[address]) [place] [address]: Steam Trap Man/Techni kate ID = [id number] for Michelle Knight POCT-GLUCOSE [id number] 21:48:15 Test Item Value Reference Range Interpretation Comments POC-GLUCOSE METER 122 mg/dL 70-110 H : TESTED A T [facility] [address] (BEAKER) (test code [address], = 1538) [place] [address]: Steam Trap Man/Techni kate ID = [id number] for Bridget Salas POCT-GLUCOSE [id number] 17:30:56 Test Item Value Reference Range Interpretation Comments POC-GLUCOSE METER 78 mg/dL 70-110 : TESTED A T [facility] [address] (BEAKER) (test code = [address], 1538) [place] [address]: Steam Trap Man/Techni kate ID = [id number] for Beka Adorno POCT-GLUCOSE [id number] 11:52:53 Test Item Value Reference Range Interpretation Comments POC-GLUCOSE METER 72 mg/dL 70-110 : TESTED A T [facility] [address] (BEAKER) (test code = [address], 1538) [place] [address]: Steam Trap Man/Techni kate ID = [id number] for Beka Adorno HEPATIC FUNCTION [id number] 06:59:28 Test Item Value Reference Range Interpretation [...] Specimen slightly (test code = 347) hemolyzed Steam Trap Man ID - [id number] ID - gtly31Solvstqm ID - jsbg01Qkjlyuqn ID - ioet94Yochyaji ID - ykzd91Ogquzvje ID - rwlj25Dseefron ID - qnly25Cfhlcual ID - qlfo81Lmgjhxit ID - jhwj57Jotqieej ID - okir63EIYNU METABOLIC [id number] 06:56:05 Test Item Value Reference Range Interpretation [...] m DATA TO CALCULA TE ESTIMATED GFR. Steam Trap Man ID - [id number] ID - xeyt41Ccocubsm ID - ihyu27Vablmzgp ID - cudj78Gbqrsupt ID - nwln14Uqfzxahn ID - jykx66Jfuchher ID - qrnc06Yodvhuys ID - atsp48Kyirobac ID - triv51Lixgicol ID - btsn42RRL W/PLT COUNT & AUTO [id number] 06:40:28 Test Item Value Reference Range Interpretation [...] PERCENT (BEAKER) (test code = 2801) POCT-GLUCOSE [id number] 05:32:55 Test Item Value Reference Range Interpretation Comments POC-GLUCOSE METER 89 mg/dL 70-110 : Notified RN/MD: TESTED ([facility] (test code = AT [facility] L [address]) [place] [address]: Steam Trap Man/Techni kate ID = [id number] for Maribeth Dickson POCT-GLUCOSE [id number] 17:11:16 Test Item Value Reference Range Interpretation Comments POC-GLUCOSE METER 124 mg/dL 70-110 H : Notified RN/MD: TESTED ([facility]) (test code AT [facility] [address] = 1538) [place] [address]: Steam Trap Man/Techni kate ID = [id number] for Dariel h, Lorita POCT-GLUCOSE [id number] 11:57:49 Test Item Value Reference Range Interpretation Comments POC-GLUCOSE METER 164 mg/dL 70-110 H : Notified RN/MD: TESTED ([facility]) (test code AT [facility] [address] = 1538) [place] [address]: Steam Trap Man/Techni kate ID = [id number] for Dariel h, Lorita BASIC METABOLIC [id number] 05:37:52 Test Item Value Reference Range Interpretation [...] m DATA TO CALCULA TE ESTIMATED GFR. Steam Trap Man ID - LITOOperator ID - LITOOperator ID - LITOOperator ID - LITOOperator ID - LITOOperator ID - LITOOperator ID - LITOOperator ID - LITOOperator ID - LITOOperator ID - LITOHEPATIC FUNCTION [id number] 05:33:43 Test Item Value Reference Range Interpretation [...] Specimen slightly (test code = 347) hemolyzed Steam Trap Man ID - LITOOperator ID - LITOOperator ID - LITOOperator ID - LITOOperator ID - LITOOperator ID - LITOOperator ID - LITOOperator ID - LITOOperator ID - LITOOperator ID - LITOCBC W/PLT COUNT & AUTO [id number] 05:31:08 Test Item Value Reference Range Interpretation [...] (BEAKER) (test code = 2801) HEMOGLOBIN AND [id number] 22:35:07 Test Item Value Reference Range Interpretation Comments HEMOGLOBIN (BEAKER) (test code = 8.2 GM/DL 13.0-16.8 L 410) HEMATOCRIT (BEAKER) (test code = 26.1 % 36.0-50.0 L 411) POCT-GLUCOSE [id number] 21:10:24 Test Item Value Reference Range Interpretation Comments POC-GLUCOSE METER 158 mg/dL 70-110 H : Notified RN/MD: TESTED (ROBERTO) (test code AT [facility] [address] = 1538) [place] [address]: Steam Trap Man/Techni kate ID = [id number] for Maribeth Dickson U/S, RENAL, [id number] 18:57:00Reason for exam:->elevated Cr [facility] : 1935 Sex: MFINAL [...] MDReport Verified Date/Time: 09/23/2021 18:57:43 HEMOGLOBIN AND [id number] 18:02:18 Test Item Value Reference Range Interpretation Comments HEMOGLOBIN (ROBERTO) (test code = 9.4 GM/DL 13.0-16.8 L 410) HEMATOCRIT (BEAKER) (test code = 29.9 % 36.0-50.0 L 411) TROPONIN [id number] 17:56:55 Test Item Value Reference Range Interpretation [...] failure, acidosis, acute neurological disease, and persistent tachyarrhythmia.Steam Trap Man ID - [id number]-GLUCOSE METER 2021-09-23 17:52:16 Test Item Value Reference Range Interpretation Comments POC-GLUCOSE METER 118 mg/dL 70-110 H : TESTED A T [facility] [address] (BEAKER) (test code [address], = 1538) [place] [id number] 478: Steam Trap Man/Techni kate ID = [id number] for Sarah Teran POCT-GLUCOSE [id number] 11:32:42 Test Item Value Reference Range Interpretation Comments POC-GLUCOSE METER 131 mg/dL 70-110 H : TESTED A T [address] (BEAKER) (test code [address], = 1538) [place] [address] 478: Steam Trap Man/Techni kate ID = [id number] for Selene Tinajero TROPONIN [id number] 10:57:24 Test Item Value Reference Range Interpretation [...] failure, acidosis, acute neurological disease, and persistent tachyarrhythmia.Steam Trap Man ID - JAQUELYNNEHEMOGLOBIN AND [id number] 10:50:03 Test Item Value Reference Range Interpretation Comments HEMOGLOBIN (BEAKER) (test code = 9.1 GM/DL 13.0-16.8 L 410) HEMATOCRIT (BEAKER) (test code = 28.9 % 36.0-50.0 L 411) URINALYSIS W/ REFLEX URINE [id number] 07:28:56 Test Item Value Reference Range Interpretation [...] code = 1663) SOURCE(BEAKER) (test code = 0838) TROPONIN [id number] 06:35:09 Test Item Value Reference Range Interpretation [...] failure, acidosis, acute neurological disease, and persistent tachyarrhythmia.Steam Trap Man ID - [id number] 2021-09-23 05:13:31 Test Item Value Reference Range Interpretation Comments HEMOGLOBIN A1C (BEAKER) (test code = 5.7 % 4.3-6.1 368) Steam Trap Man ID - [id number], CHEST, 1 VIEW, NON [id number] 04:38:00Reason for exam:->baselineShould this be performed at the bedside?->Yes [facility] : 1935 Sex: MFINAL [...] No acute intrathoracic abnormality. Signed: Albert Arango [facility] Verified Date/Time: 09/23/2021 04:38:32 BASIC METABOLIC [id number] 04:34:59 Test Item Value Reference Range Interpretation [...] m DATA TO CALCULA TE ESTIMATED GFR. Steam Trap Man ID - [id number] ID - [id number] ID - UBOY88Hhhhirvu ID - [id number] ID - IKFR04Ddsvvatu ID - UYAW31Wmlobmeu ID - [id number] ID - YXDV16Dlaxcpsk ID - NUIM96Jpvdcpyt ID - [id number] 04:32:57 Test Item Value Reference Range Interpretation Comments MAGNESIUM (BEAKER) 2.2 mg/dL 1.5-3.0 Specimen slightly (test code = 627) hemolyzed Steam Trap Man ID - [id number] ID - [id number] ID - [id number] ID - [id number] HEPATIC FUNCTION [id number] 04:32:57 Test Item Value Reference Range Interpretation [...] Specimen slightly (test code = 347) hemolyzed Steam Trap Man ID - [id number] ID - UQAI58Iybymouh ID - UDYT13Dxirqcmx ID - PLVP11Ntoqfsqf ID - MVGQ07Mgedqych ID - VUBC05Tdvuhsih ID - [id number] 2021-09-23 04:29:39 Test Item Value Reference Range Interpretation Comments PHOSPHORUS (BEAKER) 4.3 mg/dL 2.5-4.5 Specimen slightly (test code = 604) hemolyzed Steam Trap Man ID - [id number] 04:25:54 Test Item Value Reference Range Interpretation Comments PROTIME (BEAKER) 12.6 seconds 9.3-12.0 H Final Infor mation (test code = 759) (Auto Outp ut) INR (BEAKER) (test 1.16 See_Comment Final Inf ormation code = 370) (Auto Output) [Automated mess age] The system [employer] generated this result transmitted ref erence range: [...] PERCENT (BEAKER) (test code = 2801) POCT-GLUCOSE [id number] 03:44:38 Test Item Value Reference Range Interpretation Comments POC-GLUCOSE METER 167 mg/dL 70-110 H : TESTED A T [facility] [address] (BEAKER) (test code [address], = 1538) [place] [address] 478: Steam Trap Man/Techni kate ID = [id number] for Ahsan Orozco POCT-GLUCOSE [id number] 03:27:46 Test Item Value Reference Range Interpretation Comments POC-GLUCOSE METER 164 mg/dL 70-110 H : TESTED A T [address] (BEAKER) (test code [address], = 1538) [facility] [address] 478: Steam Trap Man/Techni kate ID = [id number] for Kirk Healy SARS-CoV-2 (COVID-19) RNA [Presence] in Respiratory specimen by ANDREW with probe [id number] 11:35:00 Test Item Value Reference Range Interpretation Comments 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 (test code = 57447-4) Whether the patient was admitted to intensive care unit (ICU) for condition of interest (test code = 45823-2) SARS-CoV-2 (COVID-19) RNA [Presence] in Respiratory specimen by ANDREW with probe [id number] 00:24:51 Test Item Value Reference Range Interpretation Comments SARS-CoV-2 (COVID-19) RNA Not detected Not-Detected [Presence] in Respiratory specimen by ANDREW with probe detection (test code = 48433-9) SARS-CoV-2 (COVID-19) RNA [Presence] in Respiratory specimen by ANDREW with probe [id number] 23:06:04 Test Item Value Reference Range Interpretation Comments SARS-CoV-2 (COVID-19) RNA Not detected Not-Detected [Presence] in Respiratory specimen by ANDREW with probe detection (test code = 08519-6) SARS-CoV-2 (COVID-19) RNA [Presence] in Respiratory specimen by ANDREW with probe [id number] 19:57:13 Test Item Value Reference Range Interpretation Comments SARS-CoV-2 (COVID-19) RNA Not detected Not-Detected [Presence] in Respiratory specimen by ADNREW with probe detection (test code = 39090-7) SARS-CoV-2 (COVID-19) RNA [Presence] in Respiratory specimen by ANDREW with probe [id number] 23:40:00 Test Item Value Reference Range Interpretation Comments SARS-CoV-2 (COVID-19) RNA Not detected Not-Detected [Presence] in Respiratory specimen by ANDREW with probe detection (test code = 61257-6) SARS-CoV-2 (COVID-19) RNA [Presence] in Respiratory specimen by ANDREW with probe [id number] 22:07:46 Test Item Value Reference Range Interpretation Comments SARS-CoV-2 (COVID-19) RNA Not detected Not-Detected [Presence] in Respiratory specimen by ANDREW with probe detection (test code = 69234-7) SARS-CoV-2 (COVID-19) RNA [Presence] in Respiratory specimen by ANDREW with probe [id number] 21:47:42 Test Item Value Reference Range Interpretation Comments SARS-CoV-2 (COVID-19) RNA Not detected Not-Detected [Presence] in Respiratory specimen by ANDREW with probe detection (test code = 42782-0) SARS-CoV-2 (COVID-19) RNA [Presence] in Respiratory specimen by ANDREW with probe [id number] 14:31:58 Test Item Value Reference Range Interpretation Comments SARS-CoV-2 (COVID-19) RNA Not detected Not-Detected [Presence] in Respiratory specimen by ANDREW with probe detection (test code = 96531-2)
[2022-01-24 17:28] VITALS: BP 139/63; TEMP 97.9
[2022-01-24] MEDS ORDERED: SMZ./TMP. 800/160 MG TABLET PO SCH (21:00)
--- NOTE | 2022-02-01 20:22 | P.DS ---
Admission Date: 01/21/22 Discharge Date: 02/01/22 Disposition: DC HOME/HOME HEALTH CARE Discharge Condition: GOOD Reason for Admission: Gastroenteritis, syncope, volume depletion, KORI on CKD stage III Consultations: ID - Dr. Pal Nephrology - Dr. Diaz Brief History of Present Illness: 86-year-old male patient with medical history significant for hypertension, hyperlipidemia, type 2 diabetes, hypothyroidism, history of chronic kidney disease who came to the ED with complaint of nausea vomiting episode and diarrhea. He also had a syncopal episode at home. Syncopal episode was unwitnessed and patient reported that he began to feel extremely weak and lethargic after he had diarrhea several times earlier in the day. He also had nausea and has been having poor oral intake. No issues with headache, fever, chills, abdominal pain given. He does use home oxygen for sleep apnea as per patient. In the emergency department after arrival he was found to have elevated creatinine of 3.9 from last known baseline of about 2.5 and low blood pressure. He was started on IV fluid and he was asked to be admitted for management of KORI on CKD secondary to volume depletion and gastroenteritis episode.` Hospital Course: Problem List acute cystitis Syncope secondary to hypovolemia KORI on CKD3, secondary to hypovolemia phimosis Hyponatremia, mild Hypocalcemia HTN DM2 with neuropathy Patient was found to have UTI. Urine culture grew ESBL e coli. He had improvement on initial empiric antibiotics and was afebrile and leukocytosis resolved. He was transitioned to IV merrem on 01/22. He continued to improve. ID was consulted and recommended 10 days of PO Bactrim. Recommends repeat urine culture in ~1 week. He was noted to have phimosis and skin changes on his penis. Urology was consulted and recommended outpatient circumcision. Patient has an appointment with his urologist in 4 days. If unable to maintain that appointment, can call Dr. Elaine's office for an appointment. Patient did not have any urinary retention, no pain. Patient was noted to have acute renal failure, secondary to hypovolemia. Nephrology was consulted. Patient's diuretics were held and he had improvement with IV fluids. Patient is to resume low dose lasix, hold spironolactone. Follow up with his PCP within 1 week. Follow up with Nephrology. Recommend repeat BMP in a few days to ensure potassium level is ok. avoid TIGRE inhibitors or Spironolactone to prevent hyperkalemia Physical exam GEN: Alert, oriented, NAD HEENT: Normal conjunctiva, sclera anicteric CV: Regular rate and rhythm, no edema Pulm: Nonlabored respirations on room air Integumentary: excoriation along bilateral buttocks / scrotum. : phimosis, unable to fully retract foreskin, circumferential purple discoloration with thickness of foreskin Vital Signs/Physical Exam: Temp Pulse Resp BP Pulse Ox 97.9 F 72 18 139/63 98 01/24/22 16:00 01/24/22 16:00 01/24/22 16:00 01/24/22 16:00 01/24/22 16:00 Laboratory Data at Discharge: WBC 6.1 K/uL (4.3-10.9) 01/24/22 03:07 Hgb 10.0 g/dL (13.6-17.9) L 01/24/22 03:07 Hct 30.6 % (39.6-49.0) L 01/24/22 03:07 Plt Count 144 K/uL (152-406) L 01/24/22 03:07 PT 14.6 SECONDS (9.5-12.5) H 01/21/22 02:03 INR 1.32 01/21/22 02:03 APTT 33.9 SECONDS (24.3-36.9) 01/21/22 02:03 Sodium 141 mmol/L (136-145) 01/24/22 03:07 Potassium 3.7 mmol/L (3.5-5.1) 01/24/22 03:07 BUN 37 mg/dL (7-18) H 01/24/22 03:07 Creatinine 1.73 mg/dL (0.55-1.3) H 01/24/22 03:07 Glucose 151 mg/dL (74-106) H 01/24/22 03:07 Uric Acid 13.9 mg/dL (3.5-7.2) H 01/22/22 05:05 Phosphorus 4.6 mg/dL (2.5-4.9) 01/22/22 05:05 Magnesium 2.0 mg/dL (1.8-2.4) 01/22/22 05:05 Total Bilirubin 0.5 mg/dL (0.2-1.0) 01/21/22 02:03 AST 13 U/L (15-37) L 01/21/22 02:03 ALT 19 U/L (12-78) 01/21/22 02:03 Alkaline Phosphatase 87 U/L (45-117) 01/21/22 02:03 Lipase 283 U/L (73-393) 01/21/22 02:03 Home Medications: Tamsulosin [Flomax*] 0.4 mg PO DAILY cap 08/17/21 Apixaban [Eliquis] 2.5 mg PO BID 12/03/21 Cetirizine HCl [Zyrtec*] 5 mg PO DAILY 12/03/21 Clopidogrel Bisulfate [Plavix*] 75 mg PO DAILY 12/03/21 Colesevelam [Welchol*] 625 mg PO BIDWM 12/03/21 Gabapentin 600 mg PO BID 12/03/21 Pantoprazole [Protonix Tab*] 40 mg PO BID 12/03/21 Ramelteon 8 mg PO BEDTIME 12/03/21 carvediloL [Carvedilol] 6.25 mg PO BID 12/03/21 methocarbamoL [Methocarbamol] 500 mg PO BEDTIME PRN 12/03/21 Donepezil HCl [Aricept] 10 mg PO BID 12/13/21 Insulin -Regular Human [Novolin -R*] See Protocol SQ ACHS 12/13/21 Insulin Aspart [Insulin Aspart Flexpen] 20 unit SQ TIDWM 12/13/21 Levothyroxine Sodium 150 mcg PO DAILY 12/13/21 Ondansetron [Zofran (Odt)*] 4 mg PO Q8HP PRN 12/13/21 icosapent ethyL [Vascepa 1 gm Cap] 2 cap PO BID 12/13/21 Benzonatate [Tessalon Perle*] 100 mg PO TID PRN #30 cap 12/17/21 Furosemide [Lasix] 40 mg PO BID #60 tablet 12/17/21 Insulin Degludec [Tresiba] 10 unit SQ DAILY AFTER SUPPER #1 vial 12/17/21 Berhane [Berhane*] 1 pkt PO BID #60 powd.pack 12/17/21 Melatonin 5 mg PO BEDTIME PRN PRN #30 tablet 12/17/21 Smz./Tmp. [Bactrim Ds 800 MG/160 MG*] 1 tab PO BID 10 Days #20 tab 01/24/22 New Medications: Smz./Tmp. [Bactrim Ds 800 MG/160 MG*] 1 tab PO BID 10 Days #20 tab Followup: Edison Serrano [ACTIVE - CAN ADMIT] - (urologist- call to schedule an appointment if unable to keep appointment with your urologist) RICHARD SUÁREZ [OUTSIDE PHYSICIAN] - 1 Week Time spent managing pt's care (in minutes): 45
== END 2022-01-24 18:30 | disposition home health service (06) | DRG 683 ==
LOC: ER 01:29 → ERHOLD 05:14 → 2ND 16:13
PROVIDERS: ADMIT Internal Medicine Nephrology; ATTEND Internal Medicine Nephrology
DX: N17.9 Acute kidney failure, unspecified (principal); N30.00 Acute cystitis without hematuria; E87.1 Hypo-osmolality and hyponatremia; Z16.12 Extended spectrum beta lactamase (ESBL) resistance; E78.5 Hyperlipidemia, unspecified; E03.9 Hypothyroidism, unspecified; I25.10 Atherosclerotic heart disease of native coronary artery without angina pectoris; K21.9 Gastro-esophageal reflux disease without esophagitis; I48.91 Unspecified atrial fibrillation; M10.9 Gout, unspecified; K52.9 Noninfective gastroenteritis and colitis, unspecified; E86.9 Volume depletion, unspecified; E87.6 Hypokalemia; N40.1 Benign prostatic hyperplasia with lower urinary tract symptoms; E83.51 Hypocalcemia; B96.20 Unspecified Escherichia coli [E. coli] as the cause of diseases classified elsewhere; I12.9 Hypertensive chronic kidney disease with stage 1 through stage 4 chronic kidney disease, or unspecified chronic kidney disease; E11.22 Type 2 diabetes mellitus with diabetic chronic kidney disease; N18.30 Chronic kidney disease, stage 3 unspecified; E86.1 Hypovolemia; N47.1 Phimosis; E11.40 Type 2 diabetes mellitus with diabetic neuropathy, unspecified; D63.8 Anemia in other chronic diseases classified elsewhere; Z95.1 Presence of aortocoronary bypass graft; Z79.4 Long term (current) use of insulin; Z20.822 Contact with and (suspected) exposure to COVID-19
CPT/HCPCS: 36415; 70450; 71045; 72125; 74176; 80048; 80076; 81001; 81003; 81015; 82306; 82550; 82553; 82570; 82947; 83690; 83735; 83970; 84100; 84156; 84484; 84550; 85025; 85610; 85730; 87077; 87086; 87088; 87186; 87804; 93005; 96374; 96375; 99284; J0744; J1644; J1815; J2185; J2405; J7030; J7040; J7120; U0003

== ENCOUNTER 2022-02-08 10:54 | Inpatient (IN) | payer OTHER, MEDICARE ==
--- OUTSIDE RECORDS SUMMARY | 2022-02-08 11:03 | XMS REPORT | Continuity of Care Document ---
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 TABLET(S) Hospit a tablet 00 :00 BY MOUTH l TWICE A DAY. gabapentin 2020-07 Yes TAKE TWO [facility] (NEURONTIN) 1-19 (2) st 300 mg 00:00: CAPSULE(S) Hospi ta capsule 00 BY MOUTH l TWICE A DAY. gabapentin 2020-07 Yes TAKE TWO [facility] (NEURONTIN) 1-19 (2) st 300 mg 00:00: CAPSULE(S) Hospi ta capsule 00 BY MOUTH l TWICE A DAY. metOLazone 2020-07- No [id number] TAKE ONE [facility] (ZAROXOLYN) 07-14 9100 (1) TABLET s t 2.5 MG 00:00: 00:00 (2.5 MG Hospita tablet 00 :00 TOTAL) BY l MOUTH NEEDED (FOR A WEIGHT GAIN OF 3 TO 5 POUNDS). metOLazone 2020-07- No [id number] TAKE ONE [facility] (ZAROXOLYN) 07-14 9100 (1) TABLET s t 2.5 MG 00:00: 00:00 (2.5 MG Hospita tablet 00 :00 TOTAL) BY l MOUTH NEEDED (FOR A WEIGHT GAIN OF 3 TO 5 POUNDS). colesevelam 2020-07- No [id number] 625mg Q.5D Take 1 [facility] (WelChoL) 07-[address] 625 mg 00:00: 04:59 (625 mg Hospita tablet 00 :00 total) by l mouth 2 (two) times a day with meals. colesevelam 2020-07- No [id number] 625mg Q.5D Take 1 [facility] (WelChoL) 07-[address] 625 mg 00:00: 04:59 (625 mg Hospita tablet 00 :00 total) by l mouth 2 (two) times a day with meals. clopidogreL 2020-07- No TAKE ONE M ethodi (PLAVIX) 75 07-07 (1) st mg tablet 00:00: 00:00 TABLET(S) Ho spita 00 :00 BY MOUTH l ONCE A DAY. clopidogreL 2020-07- No TAKE ONE M ethodi (PLAVIX) 75 07-07 (1) st mg tablet 00:00: 00:00 TABLET(S) Ho spita 00 :00 BY MOUTH l ONCE A DAY. Vascepa 2020-07 Yes TAKE TWO Meth zafar gram 0-29 (2) st capsule 00:00: CAPSULE(S) [facility] 00 BY MOUTH l TWICE A DAY. Vascepa 2020-07 Yes TAKE TWO Meth zafar gram 0-29 (2) st capsule 00:00: CAPSULE(S) [facility] 00 BY MOUTH l TWICE A DAY. ramelteon 2020-07 No 8mg QD Take 8 mg [facility] (ROZEREM) 8 0-28 10-[address] mg tablet 14:51: 00:00 nightly. Hos ezekiel 20 :00 l ramelteon 2020-07 No 8mg QD Take 8 mg [facility] (ROZEREM) 8 0-28 10-[address] mg tablet 14:51: 00:00 nightly. Hos ezekiel 20 :00 l ramelteon 2020-07 Yes 8mg QD Take 1 Method i (ROZEREM) 8 0-28 tablet (8 st mg tablet 00:00: mg total) Hos ezekiel 00 by mouth l nightly. ramelteon 2020-07 Yes 8mg QD Take 1 Method i (ROZEREM) 8 0-28 tablet (8 st mg tablet 00:00: mg total) Hos ezekiel 00 by mouth l nightly. colesevelam 2020-07- No [id number] 625mg Q.5D Take 1 [facility] (WelChoL) 0 11-[address] 625 mg 00:00: 00:00 (625 mg Hospita tablet 00 :00 total) by l mouth 2 (two) times a day with meals. colesevelam 2020-07- No [id number] 625mg Q.5D Take 1 [facility] (WelChoL) 11-[address] 625 mg 00:00: 00:00 (625 mg Hospita tablet 00 :00 total) by l mouth 2 (two) times a day with meals. metOLazone 2020- No [id number] 2.5mg Take 1 [facility] (ZAROXOLYN) 04-[address] 2.5 MG 00:00: 00:00 (2.5 mg Hospita tablet 00 :00 total) by l mouth as needed (for a weight gain of 3 to 5 pounds). metOLazone 2020- No [id number] 2.5mg Take 1 [facility] (ZAROXOLYN) 04-[address] 2.5 MG 00:00: 00:00 (2.5 mg Hospita tablet 00 :00 total) by l mouth as needed (for a weight gain of 3 to 5 pounds). amIODarone Yes TAKE ONE Me [facility] (PACERONE) 03-29 (1) st 200 MG 00:00: TABLET(S) Hospit a tablet 00 BY MOUTH l ONCE A DAY. amIODarone 2021-0 Yes TAKE ONE Me [facility] (PACERONE) 03-29 (1) st 200 MG 00:00: TABLET(S) Hospit a tablet 00 BY MOUTH l ONCE A DAY. cephalexin 2020- No 250mg QD Take 250 M ethodi (KEFLEX) 03-28- mg by st 250 MG 08:42: 00:00 mouth Hospita capsule 53 :00 every l evening. cephalexin 2020- No 250mg QD Take 250 M ethodi (KEFLEX) 03-[address] 250 MG 08:42: 00:00 mouth Hospita capsule 53 :00 every l evening. BUMETanide 2020- No 2mg QD Take 2 mg M ethodi (BUMEX) 2 03-[address] MG tablet 08:31: 00:00 daily. Not H ospita 28 :00 taking l anymore BUMETanide 2020- No 2mg QD Take 2 mg M ethodi (BUMEX) 2 03-[address] MG tablet 08:31: 00:00 daily. Not H ospita 28 :00 taking l anymore fluticasone 2020- No [id number] 100ug QD 2 sprays [facility] propionate 03-28 ([address] (FLONASE) 00:00: 00:00 total) by Ho spita 50 00 :00 Each Nare l mcg/actuati route on nasal daily. spray fluticasone 2020- No [id number] 100ug QD 2 sprays [facility] propionate 03-28 ([address] (FLONASE) 00:00: 00:00 total) by Ho spita 50 00 :00 Each Nare l mcg/actuati route on nasal daily. spray cholestyram 2020- No [id number] 1{packe QD Take 1 Methodi ine 03-28 t} packet by st (Questran) 00:00: 00:00 mouth Hospi ta 4 gram 00 :00 daily with l packet breakfast. cholestyram 2020- No [id number] 1{packe QD Take 1 Methodi ine 03-28 10- t} packet by st (Questran) 00:00: 00:00 mouth Hospi ta 4 gram 00 :00 daily with l packet breakfast. BUMETanide 2020- No 2mg QD Take 2 mg M ethodi (BUMEX) 2 03-[address] MG tablet 11:00: 00:00 daily. Hospi ta 10 :00 l BUMETanide 2020- No 2mg QD Take 2 mg M ethodi (BUMEX) 2 03-16- by mouth st MG tablet 11:00: 00:00 daily. Hospi ta 10 :00 l BUMETanide 2020- No 2mg QD Take 2 mg M ethodi (BUMEX) 2 03-16- by mouth st MG tablet 10:58: 00:00 daily. Hospi ta 45 :00 l BUMETanide 2020- No 2mg QD Take 2 mg M ethodi (BUMEX) 2 03-[address] MG tablet 10:58: 00:00 daily. Hospi ta 45 :00 l traZODone 2020- No TAKE ONE Me [facility] (DESYREL) 8-04 04-22 (1) st 50 MG 00:00: 00:00 TABLET(S) Hospit a tablet 00 :00 BY MOUTH l ONCE A DAY IN THE EVENING. traZODone 2020- No TAKE ONE Me [facility] (DESYREL) 8- 09-22 (1) st 50 MG 00:00: 00:00 TABLET(S) Hospit a tablet 00 :00 BY MOUTH l ONCE A DAY IN THE EVENING. dicyclomine 2020- No 20mg Q12H Take 20 mg [facility] (BENTYL) 20 8- 08-[address] mg tablet 13:56: 00:00 every 12 Hos ezekiel 15 :00 (twelve) l hours. dicyclomine 2020- No 20mg Q12H Take 20 mg [facility] (BENTYL) 20 8-27 08-[address] mg tablet 13:56: 00:00 every 12 Hos ezekiel 15 :00 (twelve) l hours. pantoprazol Yes TAKE ONE Me thodi e 8-17 (1) st (PROTONIX) 00:00: TABLET(S) Ho spita 40 MG EC 00 BY MOUTH l tablet TWICE A DAY. pantoprazol Yes TAKE ONE Me thodi e 8-17 (1) st (PROTONIX) 00:00: TABLET(S) Ho spita 40 MG EC 00 BY MOUTH l tablet TWICE A DAY. clopidogreL 2020- No TAKE ONE M ethodi (PLAVIX) 75 02-12 (1) st mg tablet 00:00: 00:00 TABLET(S) Ho spita 00 :00 BY MOUTH l ONCE A DAY. clopidogreL 2020- No TAKE ONE M ethodi (PLAVIX) 75 02-12 (1) st mg tablet 00:00: 00:00 TABLET(S) Ho spita 00 :00 BY MOUTH l ONCE A DAY. clopidogreL 2020- No TAKE ONE M ethodi (PLAVIX) 75 02-05 (1) st mg tablet 00:00: 00:00 TABLET(S) Ho spita 00 :00 BY MOUTH l ONCE A DAY. clopidogreL 2020- No TAKE ONE M ethodi (PLAVIX) 75 02-05 (1) st mg tablet 00:00: 00:00 TABLET(S) Ho spita 00 :00 BY MOUTH l ONCE A DAY. BUMETanide 2020- No 2mg QD Take 2 mg M ethodi (BUMEX) 2 01-[address] MG tablet 10:48: 00:00 daily. Hospi ta 28 :00 l BUMETanide 2020- No 2mg QD Take 2 mg M ethodi (BUMEX) 2 01-[address] MG tablet 10:48: 00:00 daily. Hospi ta 28 :00 l metOLazone 2020- No 2.5mg Take 1 [facility] (ZAROXOLYN) 01-[address] 2.5 MG 00:00: 04:59 (2.5 mg Hospita tablet 00 :00 total) by l mouth once for 1 dose. metOLazone 2020- No 2.5mg Take 1 [facility] (ZAROXOLYN) 01-[address] 2.5 MG 00:00: 04:59 (2.5 mg Hospita tablet 00 :00 total) by l mouth once for 1 dose. Eliquis 2.5 2020-2021- No TAKE ONE [facility] mg tablet 01-02 (1) st 00:00: 00:00 TABLET(S) Hospita 00 :00 BY MOUTH l TWICE A DAY. Eliquis 2.5 2021- No TAKE ONE [facility] mg tablet 01-02 (1) st 00:00: 00:00 TABLET(S) Hospita 00 :00 BY MOUTH l TWICE A DAY. tamsulosin 2020-0 Yes QD Take by UT [...] time hr capsule 50 each day. dicyclomine 202-0 Yes 10mg Q.25D Take 10 mg UT [...] 16:47: (one) time tablet 50 each day. finasteride Yes TAKE 1 UT (Proscar) 5 6-28 TABLET Health MG tablet 16:47: DAILY 02 finasteride Yes TAKE 1 UT (Proscar) 5 6-28 TABLET Health MG tablet 16:47: DAILY 02 finasteride Yes TAKE 1 UT (Proscar) 5 6-28 TABLET Health MG tablet 16:47: DAILY 02 pantoprazol 2020- No TAKE ONE Methodi e 12-28 (1) st (PROTONIX) 00:00: 00:00 TABLET(S) H ospita 40 MG EC 00 :00 BY MOUTH l tablet TWICE A DAY. pantoprazol 2020- No TAKE ONE Methodi e 12-28 (1) st (PROTONIX) 00:00: 00:00 TABLET(S) H ospita 40 MG EC 00 :00 BY MOUTH l tablet TWICE A DAY. finasteride Yes TAKE 1 UT (Proscar) 5 6-22 TABLET Health MG tablet 14:50: DAILY 43 levothyroxi 2020- No TAKE ONE M ethodi ne 12-20 (1) st (SYNTHROID) 00:00: 00:00 TABLET(S) Hospita 125 mcg 00 :00 BY MOUTH l tablet ONCE A DAY. levothyroxi 2020- No TAKE ONE M ethodi ne 12-20 (1) st (SYNTHROID) 00:00: 00:00 TABLET(S) Hospita 125 mcg 00 :00 BY MOUTH l tablet ONCE A DAY. torsemide 2020- No TAKE TWO Me [facility] (DEMADEX) 12-12 (2) st 20 MG 00:00: 00:00 TABLET(S) Hospit a tablet 00 :00 BY MOUTH l TWICE A DAY. torsemide 2020- No TAKE TWO Me [facility]odi (DEMADEX) 12-12- (2) st 20 MG 00:00: 00:00 TABLET(S) Hospit a tablet 00 :00 BY MOUTH l TWICE A DAY. gabapentin 2020- No TAKE ONE M ethodi (NEURONTIN) 11-29 (1) st 300 mg 00:00: 00:00 CAPSULE(S) [facility] capsule 00 :00 BY MOUTH l EVERY NIGHT. gabapentin 2020-2020- No TAKE ONE M ethodi (NEURONTIN) 11-29 (1) st 300 mg 00:00: 00:00 CAPSULE(S) [facility] capsule 00 :00 BY MOUTH l EVERY NIGHT. carvedilol 2020- Yes 6.25mg Q.5D Take 6.25 UT (Coreg) [...] tablet 00 (two) times a day. clopidogrel Yes 75mg QD Take 75 mg UT [...] tablet 00:00: (one) time 00 each day. clopidogreL 2020- No TAKE ONE M ethodi (PLAVIX) 75 5-10 02-05 (1) st mg tablet 00:00: 00:00 TABLET(S) Ho spita 00 :00 BY MOUTH l ONCE A DAY. clopidogreL 2020-0 2020- No TAKE ONE M ethodi (PLAVIX) 75 5-10 08-02 (1) st mg tablet 00:00: 00:00 TABLET(S) Ho spita 00 :00 BY MOUTH l ONCE A DAY. Fiasp 0 Yes 20U [id number] 20 Units 3 [facility] FlexTouch 4-15 [id number] (three) s t U-100 00:00: 3D times a Hospita Insulin 100 00 day before l unit/mL (3 meals. mL) insulin pen Fiasp 0 Yes 20U [id number] 20 Units 3 [facility] FlexTouch 4-15 [id number] (three) s t U-100 00:00: 3D times a Hospita Insulin 100 00 day before l unit/mL (3 meals. mL) insulin pen Eliquis 2.5 Yes 2.5mg Q.5D Take 2.5 U T MG tablet 4-13 mg by Health 00:00: mouth 2 00 (two) times a day. Eliquis 2.5 Yes 2.5mg Q.5D Take [...] 2 00 (two) times a day. amiodarone Yes 200mg QD Take 200 UT (Pacerone) [...] 1 tablet 00 (one) time each day. amIODarone 2020-0 2020- No 200mg QD Take 1 [facility] (PACERONE) 303-[address] 200 MG 00:00: 00:00 (200 mg Hospita tablet 00 :00 total) by l mouth daily. amIODarone 2020-0 202- No 200mg QD Take 1 Met [facility] (PACERONE) 10-[address] 200 MG 00:00: 00:00 (200 mg Hospita tablet 00 :00 total) by l mouth daily. Jardiance 2020-0 Yes 10mg QD Take 10 [...] 12 00 (twelve) hours if needed. famotidine 2020-0 Yes 20mg Take 20 mg U T (Pepcid) 20 2-18 by mouth Heal th MG tablet 00:00: every 12 00 (twelve) hours if needed. famotidine 2020-0 Yes 20mg Take 20 mg U T (Pepcid) 20 2-18 by mouth Heal th MG tablet 00:00: every 12 00 (twelve) hours if needed. famotidine 2020-0 Yes 20mg Take 20 mg U T (Pepcid) 20 2-18 by mouth Heal th MG tablet 00:00: every 12 00 (twelve) hours if needed. calcitriol 2020-0 Yes .25ug QD Take 0.25 [...] DAILY ity of mg tablet 10:04: NEEDED [address] Dexlansopra 2016-07 Yes Take by Uni vers zole 0-03 mouth. ity of (DEXILANT) 10:04: [place] [address] capsule Branch amiodarone 2016-07 Yes 200mg Take 200 Un josh 200 mg 0-03 mg by ity of tablet 10:04: mouth. [address] Branch aspirin 325 2016-07 Yes 325mg Take 325 U nivers mg tablet 0-03 mg by ity of 10:04: mouth. [address] Azelastine 2016-07 Yes Use in Unive rs (ASTEPRO) 0-03 each ity of 0.15 % 10:04: nostril. [place] (205.5 mcg) Medical nasal spray Branch rosuvastati 2016-07 Yes 1 TABLET Un josh n (CRESTOR) 0-03 DAILY ity of 10 mg 09:38: [address] Branch doxazosin 4 2016-07 Yes 2mg Take 2 mg U nivers mg tablet 0-03 by mouth. ity o f 09:38: [place] [address] Medical [place] fosinopril 2016-07 Yes 20mg Take 20 mg U nivers 20 mg 0-03 by mouth. ity of tablet 09:38: [address] cephALEXin Yes TAKE ONE Uni vers 500 mg 9-17 (1) ity of capsule 00:00: [place] 00 BY MOUTH Medical EVERY SIX Branch HOURS FOR 10 DAYS. CONTOUR 2017- Yes Univers NEXT STRIPS 8-08 ity of strip 00:00: [place] 00 Medical Branch allopurinol 2016- Yes Univer s 100 mg 7-27 ity of tablet 00:00: [place] [facility] Branch calcitriol 2016- Yes TAKE ONE Uni vers 0.25 mcg 7-18 (1) ity of capsule 00:00: [place] 00 BY MOUTH Medical ONCE A Branch DAY. levothyroxi Yes TAKE ONE Un josh ne 200 mcg 7-13 (1) ity of tablet 00:00: TABLET(S) [place] 00 BY MOUTH Medical ONCE A DAY Branch IN THE MORNING. Immunizations Ordered Immunization Filled Immunization Date Status Commen ts Source Name Name [facility] CYDNEY19 [facility] 2021-11-05 Completed Met hodist VACCINATION 00:00:00 [facility] COVID19 MRNA 2021-11-05 Completed Met hodist VACCINATION 00:00:00 [facility] FLUZONE HIGH-DOSE PF 2021-03-28 Completed Meth odist 00:00:00 [facility] FLUZONE HIGH-DOSE PF 2021-03-28 Completed Meth odist 00:00:00 [facility] COVID-19 MRNA 2021-02-26 Completed Met hodist VACCINATION 00:00:[address] [facility] [address] [facility] 2021-02-26 Completed Met hodist VACCINATION 00:00:00 [facility] COVID19 MRNA 2020-08-08 Completed Met hodist VACCINATION 00:00:00 [facility] COVID-19 MRNA 2020-08-08 Completed Met hodist VACCINATION 00:00:00 [facility] COVID-19 MRNA 2020-07-11 Completed Met hodist VACCINATION 00:00:00 [facility] COVID-19 MRNA 2020-07-11 Completed Met hodist VACCINATION 00:00:00 [facility] FLUZONE HIGH-DOSE PF 2020-05-03 Completed Meth odist 00:00:00 Hospital FLUZONE HIGH-DOSE PF 2020-05-03 Completed Meth odist 00:00:00 Hospital FLUZONE HIGH-DOSE PF 2019-04-15 Completed Meth odist 00:00:00 Hospital FLUZONE HIGH-DOSE PF 2019-04-15 Completed Meth odist 00:00:00 Hospital Influenza, 2018-04-23 Completed [facility] Quadrivalent 00:00:00 Hospital Influenza, 2018-04-23 Completed [facility] Quadrivalent 00:00:00 Hospital Influenza Whole 2018-04-16 Completed [facility] 00:00:00 Hospital Influenza Whole 2018-04-16 Completed [facility] 00:00:00 Hospital FLUZONE HIGH-DOSE PF 2017-04-05 Completed Meth odist 00:00:00 Hospital FLUZONE HIGH-DOSE PF 2017-04-05 Completed Meth odist 00:00:00 Hospital Td, Unspecified 2017-03-22 Completed [facility] 00:00:00 Hospital Td, Unspecified 2017-03-22 Completed [facility] 00:00:00 Hospital Tdap 2016-10-23 Completed [facility] 00:00:00 Hospital Zoster 2016-10-23 Completed [facility] 00:00:00 Hospital Tdap 2016-10-23 Completed [facility] 00:00:00 Hospital Zoster 2016-10-23 Completed [facility] 00:00:00 Hospital Influenza Whole 2016-04-20 Completed [facility] 00:00:00 Hospital Pneumococcal 2016-04-20 Completed [facility] Conjugate 13-Valent 00:00:00 Hospi zina Influenza Whole 2016-04-20 Completed [facility] 00:00:00 Hospital Pneumococcal 2016-04-20 Completed [facility] Conjugate 13-Valent 00:00:00 Hospi zina Pneumococcal 2016-04-11 Completed [facility] Polysaccharide 00:00:00 Hospital Pneumococcal 2016-04-11 Completed [facility] Polysaccharide 00:00:00 Hospital Influenza Whole 2015-04-24 Completed [facility] 00:00:00 Hospital Influenza Whole 2015-04-24 Completed [facility] 00:00:00 Hospital Pneumococcal 2011-06-20 Completed [facility] Conjugate 00:00:00 Hospital Pneumococcal 2011-06-20 Completed [facility] Conjugate 00:00:00 Hospital Vital Signs Vital Name Observation Time Observation Value Comments Source Systolic blood 2021-10-02 19:26:00 106 mm[Hg] Univer sity of pressure [facility] Diastolic blood 2021-10-02 19:26:00 66 mm[Hg] Unive rsity of pressure [facility] Heart rate 2021-10-02 19:26:00 72 /min [facility] Body height 2021-10-02 19:26:00 180.3 cm [facility] Body weight 2021-10-02 19:26:00 90.719 kg [facility] BMI 2021-10-02 19:26:00 27.89 kg/m2 [facility] Oxygen saturation in 2021-10-02 19:26:00 97 /min [facility] blood by [facility] Pulse oximetry Branch HEIGHT 2021-09-23 04:47:00 180 cm WEIGHT 2021-09-23 [...] 28.73 [facility]2 [facility] Systolic blood 2021-11-20 20:59:00 122 mm[Hg] [facility] pressure Diastolic blood 2021-11-20 20:59:00 75 mm[Hg] [facility] pressure Heart rate 2021-11-20 20:59:00 84 /min [facility] Body weight 2021-11-20 20:59:00 [facility] 2021-11-20 20:59:00 31.38 kg/m2 [facility] Oxygen saturation in 2021-11-20 20:59:00 94 /min [facility] Arterial blood by Pulse oximetry Body temperature 2021-09-18 20:31:00 36.67 Angela [facility] Body height 2021-09-18 20:31:00 180.3 cm [facility] Respiratory rate 2021-07-30 21:08:00 16 /min [facility] Procedures Procedure Date / Time Performing Clinician Source Performed ECG 12-LEAD 2021-11-20 21:15:15 Coby Doan Judith [facility] spital THYROID STIMULATING 2021-11-05 17:37:00 Marcia Luz [facility] HORMONE T4, FREE 2021-11-05 17:37:00 Marcia Luz [facility] URIC ACID LEVEL 2021-11-05 17:37:00 Marcia Luz [facility] BASIC METABOLIC PANEL 2021-11-05 17:37:00 Marcia Luz [facility] CBC WITH PLATELET AND 2021-11-05 17:37:00 Marcia Luz [facility] DIFFERENTIAL POC GLUCOSE 2021-07-04 18:50:00 [facility] 2021-07-04 14:55:00 [facility]IM[facility]ATING 2021-07-04 10:39:00 Saranya Crowder [facility] HORMONE T4, FREE 2021-07-04 10:39:00 [facility] 2021-07-04 10:39:00 [facility] METABOLIC PANEL 2021-07-04 10:39:00 Saranya Crowder [facility] ESTIMATED GFR 2021-07-04 10:39:00 Saranya Crowder [facility] COVID-19 QUALITATIVE 2021-07-04 10:17:00 [facility] POC GLUCOSE 2021-07-04 04:18:00 Vickie, [facility] POC GLUCOSE 2021-07-04 00:15:00 [facility] POC GLUCOSE 2021-07-03 19:20:00 [facility] POC GLUCOSE 2021-07-03 14:29:00 [facility] CBC HEMOGRAM 2021-07-03 11:16:00 [facility] BASIC METABOLIC PANEL 2021-07-03 11:16:00 AgugoSaranya [facility] ESTIMATED GFR 2021-07-03 11:16:00 Agugo Saranya [facility] POC GLUCOSE 2021-07-03 02:49:00 [facility] POC GLUCOSE 2021-07-03 00:31:00 [facility] CT THORACIC SPINE WO 2021-07-03 [facility]28[facility] 2021-07-03 00:27[facility] 2021-07-02 18:21:00 [facility] POC GLUCOSE 2021-07-02 14:24:00 [facility] POC GLUCOSE 2021-07-02 03:06:00 Vickie [facility] POC GLUCOSE 2021-07-01 23:34:00 TerriShivam [facility] sp[facility] POC GLUCOSE 2021-07-01 18:14:00 TerriEmmyar [facility] Ho spital POC GLUCOSE 2021-07-01 14:13:00 Terri Umar [facility] Ho spital POC GLUCOSE 2021-07-01 03:14:00 Terri Umar [facility] Ho spital POC GLUCOSE 2021-07-01 00:12:00 TerriEmmyar [facility] spital POC GLUCOSE 2021-06-30 18:50:00 TerriEmmyar [facility] Ho spital POC GLUCOSE 2021-06-30 13:55:00 TerriEmmyar [facility] spital POC GLUCOSE 2021-06-30 03:12:00 TerriEmmyar [facility] Ho spital POC GLUCOSE 2021-06-29 21:53:00 TerriShivam spital BASIC METABOLIC PANEL 2021-06-29 20:34:00 [facility] MAGNESIUM LEVEL 2021-06-29 20:34:00 [facility] ESTIMATED GFR 2021-06-29 20:34:00 [facility] POC GLUCOSE 2021-06-29 14:26:00 Terri, Shivam [facility] Ho spital POC GLUCOSE 2021-06-29 03:34:00 Terri, [facility] Ho spital POC GLUCOSE 2021-06-28 23:14:00 Terri, [facility] spital POC GLUCOSE 2021-06-28 18:31:00 Terri, [facility] spital POC GLUCOSE 2021-06-28 15:00:00 Terri, [facility] Ho spital COVID-19 ANTI-SPIKE IGG 2021-06-28 10:31:00 [facility] ANTIBODY TITER COVID-19 SEROLOGY PATIENT 2021-06-28 10:31:00 [facility] METABOLIC PANEL 2021-06-28 10:31:00 [facility] B NATRIURETIC PEPTIDE 2021-06-28 10:31:00 [facility] HC COMPLETE BLD COUNT 2021-06-28 10:31:00 [facility] W/AUTO DIFF PHOSPHORUS LEVEL 2021-06-28 10:31:00 [facility] 2021-06-28 10:31:00 [facility] TROPONIN T 2021-06-28 10:31:00 [facility] ESTIMATED GFR 2021-06-28 10:31:00 [facility] NH CRITICAL CARE, E/M 2021-06-28 02:10:59 [facility]UTES [facility] ED PRELIMINARY 2021-06-28 02:10:59 [facility] TROPONIN T 2021-06-28 01:54:00 Tu, [facility] TROPONIN T 2021-06-27 22:37:00 Tu, [facility] ECG 12-LEAD 2021-06-27 22:11:52 Tu, [facility] RESPIRATORY PATHOGEN 2021-06-27 20:15:00 Tu, [facility] PANEL WITH COVID-19 RT-PCR HC COMPLETE BLD COUNT 2021-06-27 20:15:00 Tu, [facility] W/AUTO DIFF PROTHROMBIN TIME WITH INR 2021-06-27 20:15:00 Tu, [facility] PARTIAL THROMBOPLASTIN 2021-06-27 20:15:00 Tu, [facility] TIME (PTT) COMPREHENSIVE METABOLIC 2021-06-27 20:15:00 Tu, [facility] PANEL TROPONIN T 2021-06-27 20:15:00 Tu, [facility] B NATRIURETIC PEPTIDE 2021-06-27 20:15:00 Tu, [facility] ESTIMATED GFR 2021-06-27 20:15:00 Tu, [facility] XR CHEST 1 VW PORTABLE 2021-06-27 20:00:58 Tu, [facility] TTE COMPLETE, WO 2021-06-05 22:55:45 [facility] CONTRAST, W DOPPLER ([id number]) BASIC METABOLIC PANEL 2021-04-06 14:31:00 Coby Doan [facility] CBC WITH PLATELET AND 2021-03-09 17:20:00 Coby Doan [facility] DIFFERENTIAL COMPREHENSIVE METABOLIC 2021-03-09 17:20:00 Coby Doan [facility] PANEL MAGNESIUM LEVEL 2021-03-09 17:20:00 [facility] NT-PROBNP 2021-03-09 17:20:00 [facility] HEMOGLOBIN A1C 2021-03-09 17:20:00 [facility] ECG 12-LEAD 2021-03-02 19:02:03 [facility] Plan of Care Planned Activity Planned Date Details Comments Source Future Scheduled 2022-01-28 DIABETIC FOOT EXAM [facility] Test 10:30:05 [code = DIABETIC FOOT EXAM] Future Scheduled 2022-01-28 INFLUENZA VACCINE Method is [facility] Test 10:30:05 [code = INFLUENZA VACCINE] Future Scheduled 2022-01-28 DIABETES: RETINAL EYE [facility] Hospital Test 10:30:05 EXAM [code = DIABETES: RETINAL EYE EXAM] Future Scheduled 2022-01-28 SHINGLES VACCINES (1 Met [facility] Test 10:30:05 of 2) [code = SHINGLES VACCINES (1 of 2)] Future Scheduled 2022-01-28 65+ PNEUMOCOCCAL [facility] Test 10:30:05 VACCINE (3 - PPSV23 or PCV20) [code = 65+ PNEUMOCOCCAL VACCINE (3 - PPSV23 or PCV20)] Future Scheduled 2022-01-28 DIABETIC FOOT EXAM [facility] Test 10:30:05 [code = DIABETIC FOOT EXAM] Future Scheduled 2022-01-28 INFLUENZA VACCINE [facility] Test 10:30:05 [code = INFLUENZA VACCINE] Future Scheduled 2022-01-28 DIABETES: RETINAL EYE [facility] Hospital Test 10:30:05 EXAM [code = DIABETES: RETINAL EYE EXAM] Future Scheduled 2022-01-28 SHINGLES VACCINES (1 Met [facility] Hospital Test 10:30:05 of 2) [code = SHINGLES VACCINES (1 of 2)] Future Scheduled 2022-01-28 65+ PNEUMOCOCCAL [facility] Test 10:30:05 VACCINE (3 - PPSV23 or PCV20) [code = 65+ PNEUMOCOCCAL VACCINE (3 - PPSV23 or PCV20)] Encounters Start End Encounter Admission Attending Care Care Encounter Source Date/Time Date/Time Type Type Clinicians Facility Department ID 2020-11-13 Outpatient SCARLETT [facility] [id number] [place] [facility] [id number] [facility] 08:31:52 VIRAJ 2022-01-29 2022-01-29 [facility] [id number] [place] 01:05:00 01:05:00 [facility] 2022-01-29 2022-01-29 Outpatient SUKH, [facility] [id number] [address] [place] 00:00:00 00:00:[address] MARCIA [address] 2022-01-25 2022-01-25 Outpatient Carla [facility] [id number] -[address] [place] 05:21:00 05:21:00 [facility] 2022-01-25 2022-01-25 Patient Dylan, 1.2.840.1 [id number] Methodi 00:00:00 00:00:00 Outreach Vanessa 81155.1.[address] 3.430.2.7 Hospit a .3.094869 l .8 2022-01-25 2022-01-25 Telephone Sukh, 1.2.840.1 [id number] 2099 [id number] Methodi 00:00:00 00:00:[address] B. 3.430.2.7 Hospit a .3.532248 l .8 2022-01-18 2022-01-18 Refill Coby Doan 1.2.840.1 [id number] 712123 5219 Methodi 00:00:00 00:00:[address] 3.430.2.7 Hospit a .3.734625 l .8 2022-01-18 2022-01-18 Travel 1.2.840.1 1.2.123.347 7186 090168 Methodi 00:00:00 00:00:[address] 3.430.2.7 0.2.7.3.698 Ho spita .3.448413 084.8 l .8 2022-01-18 2022-01-18 Telephone Sukh, 1.2.840.1 [id number] 2099 [id number] Methodi 00:00:00 00:00:[address] B. 3.430.2.7 Hospit a .3.611079 l .8 2022-01-142022-01-14 Outpatient Emeterio_Lina [facility] [id number] -[address] [place] 11:06:00 11:06:00 [id number] [facility] 2022-01-14 2022-01-14 Patient Raven, Nieves 1.2.840.1 [id number] Methodi 00:00:00 00:00:[address] 3.430.2.7 Hospit a .3.834683 l .8 2022-01-13 2022-01-13 Orders Sukh, 1.2.840.1 [id number] 8293 Methodi 00:00:00 00:00:00 Only Marcia 60873.1.[address] B. 3.430.2.7 Hospit a .3.648702 l .8 2022-01-10 2022-01-10 Telephone Sukh, 1.2.840.1 [id number] Methodi 00:00:00 00:00:[address] B. 3.430.2.7 Hospit a .3.928347 l .8 2022-01-04 2022-01-04 External Jugueta, 1.2.840.1 2099405 Methodi 00:00:00 00:00:00 Home Kye Sears 35235.1.1 712 s t Health 3.430.2.7 Hospit a .3.959578 l .8 2022-01-02 2022-01-02 Telephone Sukh, 1.2.840.1 2099268 Methodi 00:00:00 00:00:[address] B. 3.430.2.7 Hospit a .3.462111 l .8 2022-01-01 2022-01-01 Patient Raven, Nieves 1.2.840.1 2099 [id number] Methodi 00:00:00 00:00:[address] 3.430.2.7 Hospit a .3.539642 l .8 2022-01-01 2022-01-01 Telephone Sukh, 1.2.840.1 [id number] 2099 [id number] Methodi 00:00:00 00:00:[address] B. 3.430.2.7 Hospit a .3.350391 l .8 2022-01-01 2022-01-01 Telephone Sukh, 1.2.840.1 [id number] 2099 953063 Methodi 00:00:00 00:00:[address] B. 3.430.2.7 Hospit a .3.369183 l .8 2021-12-28 2021-12-28 Telephone Sukh, 1.2.840.1 [id number] 2099 [id number] Methodi 00:00:00 00:00:[address] B. 3.430.2.7 Hospit a .3.336950 l .8 2021-12-26 2021-12-26 Telephone Sukh, 1.2.840.1 [id number] 2099 942741 Methodi 00:00:00 00:00:[address] B. 3.430.2.7 Hospit a .3.863259 l .8 2021-12-22 2021-12-22 Kevin Luz, 1.2.840.1 [id number] 3312 Methodi 00:00:00 00:00:00 Only Marcia 03873.1.[address] B. 3.430.2.7 Hospit a .3.968803 l .8 2021-12-21 2021-12-21 Patient Raven, Nieves 1.2.840.1 [id number] 2100 453532 Methodi 00:00:00 00:00:[address] 3.430.2.7 Hospit a .3.092612 l .8 2021-12-20 2021-12-20 Patient Raven, Nieves 1.2.840.1 [id number] Methodi 00:00:00 00:00:[address] 3.430.2.7 Hospit a .3.373605 l .8 2021-12-14 2021-12-14 Telephone Sukh, 1.2.840.1 [id number] 2099 [id number] Methodi 00:00:00 00:00:[address] B. 3.430.2.7 Hospit a .3.894649 l .8 2021-12-13 2021-12-13 Telephone Coby Doan 1.2.840.1 [id number] 2099 [id number] Methodi 00:00:00 00:00:[address] 3.430.2.7 Hospit a .3.031113 l .8 2021-12-12 2021-12-12 Telemedici Sukh, 1.2.840.1 [id number] 188 [id number] Methodi 15:00:00 15:15:00 ne Marcia 75789.1.[address] B. 3.430.2.7 Hospit a .3.586901 l .8 2021-12-12 2021-12-12 Telephone Sukh, 1.2.840.1 [id number] 2099 092701 Methodi 00:00:00 00:00:[address] B. 3.430.2.7 Hospit a .3.094802 l .8 2021-12-11 2021-12-11 Telephone Lenin, 1.2.840.1 [id number] 087 9741279 Methodi 00:00:00 00:00:[address] 3.430.2.7 Hospit a .3.066716 l .8 2021-12-11 2021-12-11 Patient Raven Nieves 1.2.840.1 [id number] 2099 489536 Methodi 00:00:00 00:00:[address] 3.430.2.7 Hospit a .3.152939 l .8 2021-12-11 2021-12-11 Telephone Sukh, 1.2.840.1 [id number] 2100 575654 Methodi 00:00:00 00:00:[address] B. 3.430.2.7 Hospit a .3.284025 l .8 2021-12-11 2021-12-11 Telephone Sukh, 1.2.840.1 [id number] Methodi 00:00:00 00:00:[address] B. 3.430.2.7 Hospit a .3.780782 l .8 2021-12-11 2021-12-11 Telephone Sukh, 1.2.840.1 [id number] Methodi 00:00:00 00:00:[address] B. 3.430.2.7 Hospit a .3.105743 l .8 2021-12-10 2021-12-10 Orders Sukh, 1.2.840.1 [id number] 816261 6902 Methodi 00:00:00 00:00:00 Only Marcia 48045.1.[address] B. 3.430.2.7 Hospit a .3.949373 l .8 2021-12-10 2021-12-10 Patient Dylan, 1.2.840.1 [id number] 55202 25603 Methodi 00:00:00 00:00:00 Outreach Vanessa 29316.1.[address] 3.430.2.7 Hospit a .3.730444 l .8 2021-12-10 2021-12-10 Travel 1.2.840.1 1.2.493.602 3355 130790 Methodi 00:00:00 00:00:[address] 3.430.2.7 0.2.7.3.698 Ho spita .3.153886 084.8 l .8 2021-12-06 2021-12-06 Telephone Sukh, 1.2.840.1 [id number] Methodi 00:00:00 00:00:[address] B. 3.430.2.7 Hospit a .3.769475 l .8 2021-11-30 2021-11-30 Patient aRven, Nieves 1.2.840.1 2099281 Methodi 00:00:00 00:00:[address] 3.430.2.7 Hospit a .3.425395 l .8 2021-11-29 2021-11-29 External Jugueta, 1.2.840.1 [id number] 2100 848967 Methodi 00:00:00 00:00:00 Home Kye Sears 19651.1.1 345 s t Health 3.430.2.7 Hospit a .3.638920 l .8 2021-11-28 2021-11-28 Patient Raven, Nieves 1.2.840.1 2099 805684 Methodi 00:00:00 00:00:[address] 3.430.2.7 Hospit a .3.348032 l .8 2021-11-26 2021-11-26 Telephone Sukh, 1.2.840.1 [id number] 2099 729885 Methodi 00:00:00 00:00:[address] B. 3.430.2.7 Hospit a .3.521342 l .8 2021-11-20 2021-11-20 Office FrankiCoby 1.2.840.1 [id number] 534467 6206 Methodi 16:40:00 17:58:15 Visit Judith 40920.1.[address] 3.430.2.7 Hospit a .3.324280 l .8 2021-11-20 2021-11-20 Travel 1.2.840.1 1.2.178.284 6948 660442 Methodi 00:00:00 00:00:[address] 3.430.2.7 0.2.7.3.698 Ho spita .3.208387 084.8 l .8 2021-11-19 2021-11-19 Patient Raven, Nieves 1.2.840.1 [id number] 2099 063999 Methodi 00:00:00 00:00:[address] 3.430.2.7 Hospit a .3.110689 l .8 2021-11-16 2021-11-16 Telephone Sukh, 1.2.840.1 [id number] 2099 682648 Methodi 00:00:00 00:00:[address] B. 3.430.2.7 Hospit a .3.069298 l .8 2021-11-14 2021-11-14 Patient Raven, Nieves 1.2.840.1 [id number] 2099 206007 Methodi 00:00:00 00:00:[address] 3.430.2.7 Hospit a .3.620849 l .8 2021-11-12 2021-11-12 Telephone Rosa Eric 1.2.840.1 [id number] Methodi 00:00:00 00:00:[address] 3.430.2.7 Hospit a .3.123762 l .8 2021-11-12 2021-11-12 Orders Rosa Eric 1.2.840.1 [id number] Methodi 00:00:00 00:00:[address] 3.430.2.7 Hospit a .3.972822 l .8 2021-11-08 2021-11-08 Telephone Sukh, 1.2.840.1 [id number] 2100 165177 Methodi 00:00:00 00:00:[address] B. 3.430.2.7 Hospit a .3.941482 l .8 2021-11-08 2021-11-08 Orders Sukh, 1.2.840.1 [id number] 161589 9900 Methodi 00:00:00 00:00:00 Only Marcia 75147.1.[address] B. 3.430.2.7 Hospit a .3.284012 l .8 2021-11-07 2021-11-07 Patient Raven, Nieves 1.2.840.1 [id number] 2099 061939 Methodi 00:00:00 00:00:[address] 3.430.2.7 Hospit a .3.661184 l .8 2021-11-07 2021-11-07 Telephone Marciano, 1.2.840.1 [id number] 2099 669748 Methodi 00:00:00 00:00:[address] 3.430.2.7 Hospit a .3.943167 l .8 2021-11-05 2021-11-05 Office Sukh, 1.2.840.1 [id number] 810224 5156 Methodi 11:00:00 12:50:30 Visit Marcia 10608.1.[address] B. 3.430.2.7 Hospit a .3.228026 l .8 2021-11-05 2021-11-05 Travel 1.2.840.1 1.2.635.417 2495 229865 Methodi 00:00:00 00:00:[address] 3.430.2.7 0.2.7.3.698 Ho spita .3.790824 084.8 l .8 2021-11-02 2021-11-02 Telephone Sukh, 1.2.840.1 [id number] 2099 772842 Methodi 00:00:00 00:00:[address] B. 3.430.2.7 Hospit a .3.408916 l .8 2021-11-02 2021-11-02 Refill Carmelo, 1.2.840.1 [id number] 730523 8637 Methodi 00:00:00 00:00:00 Sean Moss 90872.1.[address] 3.430.2.7 Hospit a .3.973348 l .8 2021-10-31 2021-10-31 Patient Raven, Nieves 1.2.840.1 [id number] Methodi 00:00:00 00:00:[address] 3.430.2.7 Hospit a .3.456710 l .8 2021-10-30 2021-10-30 Patient Dylan, 1.2.840.1 [id number] 21001 71072 Methodi 00:00:00 00:00:00 Outreach Vanessa [address]3582.1.[address] 3.430.2.7 Hospit a .3.721057 l .8 2021-10-24 2021-10-24 Patient Raven, Nieves 1.2.840.1 [id number] 2100 785530 Methodi 00:00:00 00:00:[address] 3.430.2.7 Hospit a .3.351954 l .8 2021-10-17 2021-10-17 Telephone Sukh, 1.2.840.1 [id number] 2100 637367 Methodi 00:00:00 00:00:[address] B. 3.430.2.7 Hospit a .3.687211 l .8 2021-10-15 2021-10-15 External Stanley, 1.2.840.1 [id number] Methodi 00:00:00 00:00:00 Home Yani 65437.1.[address] Health 3.430.2.7 Hospit a .3.098982 l .8 2021-10-12 2021-10-12 Orders Jacqueline, 1.2.840.1 [id number] 49428 Methodi 00:00:00 00:00:00 Only Cat 04307.1.[address] 3.430.2.7 Hospit a .3.873562 l .8 2021-10-11 2021-10-11 Patient Raven, Nieves 1.2.840.1 [id number] Methodi 00:00:00 00:00:[address] 3.430.2.7 Hospit a .3.868638 l .8 2021-10-09 2021-10-09 Telephone Sukh, 1.2.840.1 [id number] 2099 164435 Methodi 00:00:00 00:00:[address] B. 3.430.2.7 Hospit a .3.577699 l .8 2021-10-09 2021-10-09 Telephone Sukh, 1.2.840.1 [id number] 2099 805203 Methodi 00:00:00 00:00:[address] B. 3.430.2.7 Hospit a .3.092746 l .8 2021-10-04 2021-10-04 Patient Nieves Carbajal 1.2.840.1 [id number] 2099 551251 Methodi 00:00:00 00:00:[address] 3.430.2.7 Hospit a .3.367828 l .8 2021-10-04 2021-10-04 Telephone Rosa Eric 1.2.840.1 [id number] Methodi 00:00:00 00:00:[address] 3.430.2.7 Hospit a .3.672347 l .8 2021-10-03 2021-10-03 Telephone Sukh, 1.2.840.1 [id number] 2099 600614 Methodi 00:00:00 00:00:[address] B. 3.430.2.7 Hospit a .3.046947 l .8 2021-10-02 2021-10-02 Office Leonid [facility] 1.2.840.114 [id number] 35 Univers 15:30:00 15:31:03 Visit [facility] 350.1.13.10 it jimmie [facility] 4.2.7.2.686 Anurag as SHALONDA?BLEA 146.8775179 [address] OFFICE BUILDING 2021-10-02 2021-10-02 Outpatient R LEONID [facility] [id number] 768 [facility] 15:30:00 15:31:03 [facility] 2021-10-02 2021-10-02 Patient Nieves Carbajal 1.2.840.1 [id number] Methodi 00:00:00 00:00:[address] 3.430.2.7 Hospit a .3.100394 l .8 2021-10-02 2021-10-02 Telephone Sukh, 1.2.840.1 [id number] Methodi 00:00:00 00:00:[address] B. 3.430.2.7 Hospit a .3.403845 l .8 2021-10-01 2021-10-01 Patient Dylan, 1.2.840.1 Methodi 00:00:00 00:00:00 Outreach Vanessa 45953.1.[address] 3.430.2.7 Hospit a .3.495224 l .8 2021-09-23 2021-09-28 Inpatient ER [facility] [id number] 22 [facility] 03:10:00 10:36:00 [place] 2021-09-28 2021-09-28 Telephone Sukh, 1.2.840.1 [id number] Methodi 00:00:00 00:00:[address] B. 3.430.2.7 Hospit a .3.792321 l .8 2021-09-27 2021-09-27 Telephone Suhk, 1.2.840.1 [id number] 2099720 Methodi 00:00:00 00:00:[address] B. 3.430.2.7 Hospit a .3.687190 l .8 2021-09-26 2021-09-26 Telephone Sukh, 1.2.840.1 [id number] Methodi 00:00:00 00:00:[address] B. 3.430.2.7 Hospit a .3.519454 l .8 2021-09-26 2021-09-26 Telephone Sukh, 1.2.840.1 [id number] 2099 759182 Methodi 00:00:00 00:00:[address] B. 3.430.2.7 Hospit a .3.706632 l .8 2021-09-24 2021-09-24 Telephone Sukh, 1.2.840.1 [id number] 2099 919682 Methodi 00:00:00 00:00:[address] B. 3.430.2.7 Hospit a .3.876429 l .8 2021-09-23 2021-09-23 Telephone Sukh, 1.2.840.1 [id number] 2099378 Methodi 00:00:00 00:00:[address] B. 3.430.2.7 Hospit a .3.306092 l .8 2021-09-21 2021-09-21 Telephone Coby Doan 1.2.840.1 [id number] 2099 237256 Methodi 00:00:00 00:00:[address] 3.430.2.7 Hospit a .3.785205 l .8 2021-09-21 2021-09-21 Refill Coby Doan 1.2.840.1 [id number] 689681 6004 Methodi 00:00:00 00:00:[address] 3.430.2.7 Hospit a .3.339796 l .8 2021-09-19 2021-09-19 Telephone Sukh, 1.2.840.1 [id number] 2099 606011 Methodi 00:00:00 00:00:[address] B. 3.430.2.7 Hospit a .3.194726 l .8 2021-09-18 2021-09-18 Telemedici Sukh, 1.2.840.1 [id number] 964 1360524 Methodi 14:45:00 15:00:00 ne Marcia 46141.1.[address] B. 3.430.2.7 Hospit a .3.647676 l .8 2021-09-18 2021-09-18 Telephone Sukh, 1.2.840.1 [id number] 2099103 Methodi 00:00:00 00:00:[address] B. 3.430.2.7 Hospit a .3.009168 l .8 2021-09-18 2021-09-18 Telephone Sukh, 1.2.840.1 [id number] 2099093 Methodi 00:00:00 00:00:[address] B. 3.430.2.7 Hospit a .3.739028 l .8 2021-09-18 2021-09-18 Travel 1.2.840.1 1.2.451.569 1649 993131 Methodi 00:00:00 00:00:[address] 3.430.2.7 0.2.7.3.698 Ho spita .3.357285 084.8 l .8 2021-09-17 2021-09-17 Telephone Yoandy, 1.2.840.1 [id number] Methodi 00:00:00 00:00:[address] 3.430.2.7 Hospit a .3.720068 l .8 2021-09-17 2021-09-17 Kevin Pitt, 1.2.840.1 [id number] 2099 575362 Methodi 00:00:00 00:00:00 Only Hannah 35550.1.[address] 3.430.2.7 Hospit a .3.650747 l .8 2021-09-17 2021-09-17 Telephone Sukh, 1.2.840.1 [id number] 2099974 Methodi 00:00:00 00:00:[address] B. 3.430.2.7 Hospit a .3.222439 l .8 2021-08-03 2021-08-03 Refill Rico, 1.2.840.1 [id number] 762650 0049 Methodi 00:00:00 00:00:00 Sean Moss 62932.1.[address] 3.430.2.7 Hospit a .3.291306 l .8 2021-07-30 2021-07-30 Telemedici Sukh, 1.2.840.1 [id number] 760 6634006 Methodi 15:00:00 16:12:34 ne Marcia 64402.1.[address] B. 3.430.2.7 Hospit a .3.428588 l .8 2021-07-30 2021-07-30 Telephone Sukh, 1.2.840.1 [id number] 2099 465358 Methodi 00:00:00 00:00:[address] B. 3.430.2.7 Hospit a .3.627960 l .8 2021-07-28 2021-07-28 Documentat Elsy, 1.2.840.1 [id number] 324 [id number] Methodi 00:00:00 00:00:00 eric Reyes 43485.1.1 194 [address] t 3.430.2.7 Hospit a .3.910805 l .8 2021-07-23 2021-07-23 Telephone Sukh, 1.2.840.1 [id number] 2099 925029 Methodi 00:00:00 00:00:[address] B. 3.430.2.7 Hospit a .3.485651 l .8 2021-07-13 2021-07-13 Orders Vickie, 1.2.840.1 [id number] 141371 2813 Methodi 00:00:00 00:00:00 Only Albert 56436.1.[address] Foster 3.430.2.7 Hospit a .3.661883 l .8 2021-06-27 2021-07-04 Emergency Jami 1.2.840.1 1 [id number] Methodi 13:07:00 20:34:00 Albert Johnston 22111.1.[address] Terri, Umar 3.430.2.7 Hos ezekiel .3.426906 l .8 2021-06-27 2021-06-27 Documentat Coby Doan 1.2.840.1 [id number] 553 7642275 Methodi 00:00:00 00:00:00 ion Judith 52483.1.[address] 3.430.2.7 Hospit a .3.985210 l .8 2021-06-22 2021-06-22 Refill Maira Chen 1.2.840.1 [id number] 21 [id number] Methodi 00:00:00 00:00:[address] 3.430.2.7 Hospit a .3.676396 l .8 2021-06-18 2021-06-18 Refill Coby Doan 1.2.840.1 [id number] 248436 6861 Methodi 00:00:00 00:00:[address] 3.430.2.7 Hospit a .3.657147 l .8 2021-06-15 2021-06-15 Refill Maira Chen 1.2.840.1 [id number] 21 [id number] Methodi 00:00:00 00:00:[address] 3.430.2.7 Hospit a .3.600370 l .8 2021-06-15 2021-06-15 Refill Maira Chen 1.2.840.1 [id number] 21 [id number] Methodi 00:00:00 00:00:[address] 3.430.2.7 Hospit a .3.410251 l .8 2021-06-06 2021-06-06 Remote Semsummer 1.2.840.1 [id number] 30403 87116 Methodi 00:00:00 00:00:00 Monitoring Cat 09686.1.1 713 s t 3.430.2.7 Hospit a .3.869151 l .8 2021-06-05 2021-06-05 Office Coby Doan 1.2.840.1 [id number] 245259 4558 Methodi 14:00:00 14:20:00 Visit Judith 54805.1.[address] 3.430.2.7 Hospit a .3.289891 l .8 2021-06-05 2021-06-05 Outpatient COBY DOAN [facility] [id number] [address] [place] 00:00:00 00:00:[address] 2021-06-05 2021-06-05 Travel 1.2.840.1 1.2.501.845 8084 399346 Methodi 00:00:00 00:00:[address] 3.430.2.7 0.2.7.3.698 Ho spita .3.789822 084.8 l .8 2021-05-25 2021-05-25 RefMaira Munoz 1.2.840.1 [id number] 21 [id number] Methodi 00:00:00 00:00:[address] 3.430.2.7 Hospit a .3.448382 l .8 2021-05-11 2021-05-11 Refill Franki Coby 1.2.840.1 [id number] 622019 2395 Methodi 00:00:00 00:00:[address] 3.430.2.7 Hospit a .3.074874 l .8 2021-05-11 2021-05-11 Refjohanna Hector 1.2.840.1 [id number] 160944 7031 Methodi 00:00:00 00:00:[address] 3.430.2.7 Hospit a .3.886268 l .8 2021-05-10 2021-05-10 Dede Luz 1.2.840.1 [id number] 2100 355815 Methodi 00:00:00 00:00:[address] B. 3.430.2.7 Hospit a .3.834978 l .8 2021-05-04 2021-05-04 Lowell Luz 1.2.840.1 [id number] 224116 6151 Methodi 00:00:00 00:00:[address] B. 3.430.2.7 Hospit a .3.907716 l .8 2021-05-04 2021-05-04 Refill Rico, 1.2.840.1 [id number] 191250 9256 Methodi 00:00:00 00:00:00 Sean Moss 09061.1.[address] 3.430.2.7 Hospit a .3.811077 l .8 2021-05-03 2021-05-03 Office Sukh, 1.2.840.1 [id number] 470844 7623 Methodi 14:30:00 15:02:40 Visit Marcia 68871.1.[address] B. 3.430.2.7 Hospit a .3.837831 l .8 2021-05-03 2021-05-03 Travel 1.2.840.1 1.2.995.828 4621 248294 Methodi 00:00:00 00:00:[address] 3.430.2.7 0.2.7.3.698 Ho spita .3.464343 084.8 l .8 2021-04-25 2021-04-25 Remote [facility], 1.2.840.1 [id number] 94570 Methodi 00:00:00 00:00:00 Monitoring Cat 82450.1.1 511 s t 3.430.2.7 Hospit a .3.629323 l .8 2021-04-13 2021-04-13 Orders Yoandy, 1.2.840.1 [id number] 2099 424657 Methodi 00:00:00 00:00:00 Only Hannah 58616.1.[address] 3.430.2.7 Hospit a .3.130364 l .8 2021-04-03 2021-04-03 Telephone Jessika, 1.2.840.1 [id number] 2 [id number] Methodi 00:00:00 00:00:[address] 3.430.2.7 Hospit a .3.765291 l .8 2021-04-02 2021-04-02 Telephone Jessika, 1.2.840.1 [id number] 2 [id number] Methodi 00:00:00 00:00:[address] 3.430.2.7 Hospit a .3.849327 l .8 2021-03-30 2021-03-30 Telephone Rodrigue, 1.2.840.1 [id number] 142 [id number] Methodi 00:00:00 00:00:[address] 3.430.2.7 Hospit a .3.468414 l .8 2021-03-28 2021-03-28 Office Sukh, 1.2.840.1 [id number] 129321 6346 Methodi 08:30:00 09:14:58 Visit Marcia 94602.1.[address] B. 3.430.2.7 Hospit a .3.698064 l .8 2021-03-27 2021-03-27 Travel 1.2.840.1 1.2.995.465 8499 638698 Methodi 00:00:00 00:00:[address] 3.430.2.7 0.2.7.3.698 Ho spita .3.512233 084.8 l .8 2021-03-27 2021-03-27 Telephone Sukh, 1.2.840.1 [id number] 2100 493600 Methodi 00:00:00 00:00:[address] B. 3.430.2.7 Hospit a .3.312036 l .8 2021-03-27 2021-03-27 Refill Coby Doan 1.2.840.1 [id number] 923616 6426 Methodi 00:00:00 00:00:[address] 3.430.2.7 Hospit a .3.878350 l .8 2021-03-21 2021-03-21 Orders Sukh, 1.2.840.1 115475198 881503 4137 Methodi 00:00:00 00:00:00 Only Marcia 24149.1.[address] B. 3.430.2.7 Hospit a .3.016832 l .8 2021-03-20 2021-03-20 Telephone Micheline-Andrea 1.2.840.1 [id number] 6508681510 Methodi 00:00:00 00:00:00 ris, Barbara 16645.1.1 099 s t 3.430.2.7 Hospit a .3.694486 l .8 2021-03-19 2021-03-19 Telephone Micheline-Andrea 1.2.840.1 [id number] Methodi 00:00:00 00:00:00 ris, Barbara 84705.1.1 578 s t 3.430.2.7 Hospit a .3.814632 l .8 2021-03-19 2021-03-19 Telephone Micheline-Andrea 1.2.840.1 [id number] 7543690878 Methodi 00:00:00 00:00:00 ris, Barbara 14507.1.1 931 s t 3.430.2.7 Hospit a .3.335885 l .8 2021-03-16 2021-03-16 [facility] Micheline-Andrea 1.2.840.1 [id number] 21 [id number] Methodi 00:00:00 00:00:00 ris, Barbara 28835.1.1 699 s t 3.430.2.7 Hospit a .3.676586 l .8 2021-03-16 2021-03-16 Telephone Micheline-Andrea 1.2.840.1 044111393 [id number] Methodi 00:00:00 00:00:00 ris, Barbara 44508.1.1 162 s t 3.430.2.7 Hospit a .3.925647 l .8 2021-03-15 2021-03-15 Remote Jacqueline, 1.2.840.1 [id number] 68074 58642 Methodi 00:00:00 00:00:00 Monitoring Cat 02829.1.1 038 s t 3.430.2.7 Hospit a .3.228527 l .8 2021-03-03 2021-03-03 Refill Sukh, 1.2.840.1 [id number] 058764 8699 Methodi 00:00:00 00:00:[address] B. 3.430.2.7 Hospit a .3.415490 l .8 2021-03-02 2021-03-02 Office Coby Doan 1.2.840.1 [id number] 086516 5091 Methodi 14:00:00 15:08:22 Visit Judith 94551.1.[address] 3.430.2.7 Hospit a .3.442331 l .8 2021-03-02 2021-03-02 Travel 1.2.840.1 1.2.574.067 7406 012053 Methodi 00:00:00 00:00:[address] 3.430.2.7 0.2.7.3.698 Ho spita .3.801247 084.8 l .8 2021-02-18 2021-02-18 Refill Coby Doan 1.2.840.1 [id number] 683179 4979 Methodi 00:00:00 00:00:[address] 3.430.2.7 Hospit a .3.861514 l .8 2021-02-17 2021-02-17 Refill Coby Doan 1.2.840.1 950034878 029785 1646 Methodi 00:00:00 00:00:[address] 3.430.2.7 Hospit a .3.537170 l .8 2021-02-10 2021-02-10 Refill Carmelo 1.2.840.1 763441475 639868 0653 Methodi 00:00:00 00:00:00 Sean Moss 49996.1.[address] 3.430.2.7 Hospit a .3.750232 l .8 2021-02-05 2021-02-05 Refill Carmelo, 1.2.840.1 [id number] 918396 9730 Methodi 00:00:00 00:00:00 Sean Moss 52474.1.[address] 3.430.2.7 Hospit a .3.946293 l .8 2021-01-29 2021-01-29 Telephone Shoaib, 1.2.840.1 [id number] 21 [id number] Methodi 00:00:00 00:00:[address] 3.430.2.7 Hospit a .3.937956 l .8 2021-01-29 2021-01-29 Remote Jacqueline, 1.2.840.1 [id number] 00842 02709 Methodi 00:00:00 00:00:00 Monitoring Cat 18786.1.1 543 s t 3.430.2.7 Hospit a .3.293527 l .8 2021-01-12 2021-01-12 Outpatient CHEN, MAIRA [facility] 037 [id number] [place] 00:00:00 00:00:[address] 2021-01-03 2021-01-03 Outpatient [facility] [id number] [address] [place] 00:00:00 00:00:00 JAVIER [address] 2021-01-03 2021-01-03 Outpatient [facility] [id number] [address] [place] 00:00:00 00:00:00 JAVIER [address] 2021-01-01 2021-01-01 Office Scarlett, TRINH 6400 1.2.927.987 9028 48222 11:18:17 12:10:[address] 350.1.13.58 9.2.7.2.686 442.9601671 1 2021-01-01 2021-01-01 Office Scarlett, TRINH 6400 1.2.214.967 9550 76043 [place] 11:18:17 12:10:[address] 350.1.13.58 Health 9.2.7.2.686 121.2432797 1 2020-12-27 2020-12-27 Telephone TRINH Pantoja CABRINI [facility] [id number] [place] 00:00:00 00:00:00 Viraj SUGAR [id number] [facility] [id number] [address] [id number] AND 1 WOMENS 2020-11-10 2020-11-10 Outpatient COBY DOAN [facility] [id number] [address] [place] 00:00:00 00:00:[address] 2020-11-01 2020-11-01 Outpatient SUKH [facility] [id number] [address] [place] 00:00:00 00:00:00 MARCIA [address] 2020-10-23 2020-10-27 Inpatient AIXA [place] 20002 [id number] [address] [place] 00:00:00 00:00:00 PAULY [address] 2020-09-22 2020-09-22 Outpatient FRANKI COBY [facility] [id number] [address] [place] 00:00:00 00:00:[address] 2020-08-29 2020-09-11 Inpatient AIXA [facility] [id number] [address] [place] 00:00:00 00:00:00 PAULY [address] 2020-08-25 2020-08-31 Outpatient FRANKI COBY [facility] [id number] [address] [place] 00:00:00 00:00:[address] 2020-08-15 2020-08-19 Inpatient XU [facility] [id number] [address] [place] 00:00:00 00:00:00 MARIAH [address] 2020-07-28 2020-07-28 Outpatient FRANKI COBY [facility] [id number] [address] [place] 00:00:00 00:00:[address] 2020-07-28 2020-07-28 Outpatient FRANKI COBY [facility] [id number] [address] [place] 00:00:00 00:00:[address] 2020-07-14 2020-07-14 Outpatient MAIRA CHEN [facility] [id number] [place] 00:00:00 00:00:[address] 2020-07-13 2020-07-13 Outpatient SUKH, [facility] [id number] [address] [place] 00:00:00 00:00:00 MARCIA [address] 2020-07-13 2020-07-13 Outpatient MARIA EUGENIA [facility] [id number] [place] 00:00:00 00:00:00 SIRAYA [address] 2020-07-12 2020-07-12 Outpatient [facility] [id number] [address] [place] 00:00:00 00:00:[address] 2020-05-26 2020-05-26 Outpatient COBY DOAN [facility] [id number] [address] [place] 00:00:00 00:00:[address] 2020-05-23 2020-05-23 Outpatient DELAFLOR-SA [facility] [id number] [place] 00:00:00 00:00:00 NTAANA, [address] 2020-05-08 2020-05-18 Inpatient KEENAN [facility] 060 [id number] [address] [place] 00:00:00 00:00:00 ANETTE [address] 2020-05-05 2020-05-05 Outpatient COBY DOAN [facility] [id number] [address] [place] 00:00:00 00:00:[address] 2020-05-03 2020-05-03 Outpatient SUKH [facility] [id number] [address] [place] 00:00:00 00:00:00 MARCIA [address] 2020-04-26 2020-04-26 Outpatient ALIDA, [facility] 782 [id number] [address] [place] 00:00:00 00:00:00 ASHRITH [address] 2020-04-24 2020-04-24 Outpatient COBY DOAN [facility] [id number] [address] [place] 00:00:00 00:00:[address] 2020-04-14 2020-04-14 Outpatient COBY DOAN [facility] [id number] [address] [place] 00:00:00 00:00:[address] 2020-04-03 2020-04-03 Outpatient Daniel_T VFP VFP [id number] 03-26 [facility] 01:57:00 01:57:00 [id number] Family Practic e 2020-03-17 2020-03-17 Outpatient COBY DOAN [facility] [id number] [address] [place] 00:00:00 00:00:[address] 2020-03-09 2020-03-09 Outpatient DELAFLOR-SA [facility] [id number] [place] 00:00:00 00:00:00 NTAANA, [address] 2020-02-24 2020-03-02 Inpatient COBY DOAN [facility] 021 [id number] [address] [place] 00:00:00 00:00:[address] 2020-02-23 2020-02-23 Outpatient COBY DOAN [facility] [id number] [address] [place] 00:00:00 00:00:[address] 2020-02-11 2020-02-11 Outpatient COBY DOAN [facility] [id number] [address] [place] 00:00:00 00:00:[address] 2020-02-04 2020-02-04 Outpatient SUKH, [facility] [id number] [address] [place] 00:00:00 00:00:00 MARCIA [address] 2020-01-20 2020-01-25 Inpatient SAWANT, [facility] 064 [id number] [address] [place] 00:00:00 00:00:00 AMITKUMAR 229 Meth zafar 2020-01-12 2020-01-12 Outpatient CHENMAIRA [facility] [id number] [place] 00:00:00 00:00:[address] 2019-12-31 2019-12-31 Outpatient COBY DOAN [facility] [id number] [address] [place] 00:00:00 00:00:[address] 2019-12-31 2019-12-31 Outpatient COBY DOAN [facility] [id number] [address] [place] 00:00:00 00:00:[address] 2019-12-27 2019-12-27 Outpatient RICO, [facility] [id number] [address] [place] 00:00:00 00:00:00 SEAN [address] 2019-12-17 2019-12-18 Outpatient SOTO, [facility] [id number] [address] [place] 00:00:00 00:00:00 MERCY [address] 2019-11-18 2019-11-18 Outpatient KELVIN, [facility] [id number] [address] [place] 00:00:00 00:00:00 MAHWASH [address] 2019-11-04 2019-11-04 Outpatient SUKH, [facility] [id number] [address] [place] 00:00:00 00:00:00 MARCIA [address] 2019-10-19 2019-10-19 Outpatient SUKH, [facility] [id number] [address] [place] 00:00:00 00:00:00 MARCIA [address] 2019-09-17 2019-09-17 Outpatient COBY DOAN [facility] [id number] [address] [place] 00:00:00 00:00:[address] 2019-09-02 2019-09-09 Inpatient AIXA, [facility] 060 [id number] [address] [place] 00:00:00 00:00:00 PAULY [address] Results Test Description Test Time Test Comments Results Result Comments Source ECG 12 lead 2021-11-21 01:51:03 Test Item Value Reference Range Interpretation Comme nts Ventricular rate (test code = 253) Atrial rate (test code = 255) NH interval (test code = 266) QRSD interval (test code = 260) QT interval (test code = 264) QTC interval (test code = 265) P axis 1 (test code = 267) QRS axis 1 (test code = 268) T wave axis (test code = 270) EKG impression (test code = 273) AV dual-paced rhythm with prolonge d AV conduction- [facility] [id number] 01:51:03 Test Item Value Reference Range Interpretation Comments Ventricular rate (test code = 253) Atrial rate (test code = 255) NH interval (test code = 266) QRSD interval (test code = 260) QT interval (test code = 264) QTC interval (test code = 265) P axis 1 (test code = 267) QRS axis 1 (test code = 268) T wave axis (test code = 270) EKG impression (test AV dual-paced rhythm code = 273) with prolonged AV conduction-Electronic ally Signed By Merritt Chiu MD ([id number]) on 11/20/2021 8:50:59 PM [facility] [id number] 09:45:00 Test Item Value Reference Interpretation Comments Range Glucose (test code 91 mg/dL 65-99 Fasting reference = 2345-7) interval BUN (test code = 52 mg/dL 7-25 H 3094-0) Creatinine (test 2.35 mg/dL 0.70-1.11 H For patient s >49 code = 2160-0) years of age, the reference limit for Creatinine is approximately 1 3% higher for peopleidentifie d as -Ines n. EGFR Non-Afr. See_Comment L [Automated me ssage] Chinese (test code The syst em which = 2775) generated this result transmit julien reference range : > OR = 60 mL/min/1.73m2. The reference range was not used to interpret this result as normal/abnormal . EGFR See_Comment L [Automated mes asya] Chinese (test code The syst em which = 2774) generated this result transmit julein reference range : > OR = 60 mL/min/1.73m2. The reference range was not used to interpret this result as normal/abnormal . BUN/creatinine See_Comment [Automated m essage] ratio (test code = The syste m which 3097-3) generated this result transmit julien reference range : 6 - 22 (calc). The reference range was not used to interpret this result as normal/abnormal . Sodium (test code = 138 mmol/L 883-809 8748-2) Potassium (test 4.5 mmol/L 3.5-5.3 code = 2823-3) Chloride (test code 99 mmol/L 98-110 = 2075-0) CO2 (test code = 28 mmol/L 20-32 8-9) Calcium (test code 7.5 mg/dL 8.6-10.3 L = 22598-9) RAC (test code = Performing RAC) Organization Information: Site ID: A [facility] Address: [address] [place] [address] Director: Rajan Yates Lab Interpretation Abnormal (test code = 53089-7) abelino Law2022-05-03 09:45:00 Test Item Value Reference Range Interpretation Comments T4, free (test code 1.2 ng/dL 0.8-1.8 = 3024-7) RAC (test code = Performing Organization RAC) Information: Site ID: A [facility] Address: [address] [place] [phone] Director: Rajan Yates [facility] [id number] 09:45:00 Test Item Value Reference Range Interpretation Comments TSH (test code = See_Comment H [Automated 3016-3) message] The system which generated this result transmitted reference range : 0.40 - 4.50 mIU/L. The reference range was not used to interpret this result as normal/abnormal . RAC (test code = Performing RAC) Organization Information: Site ID: [facility] Address: [address] [place] [address] Director: Rajan Yates Lab Interpretation Abnormal (test code = 71107-5) [facility] [id number] 09:45:00 Test Item Value Reference Range Interpretation Comments Uric acid (test code 13.2 mg/dL 4.0-8.0 H Therape utic = 3084-1) target for gout patients: <6.0 mg/dL RAC (test code = Performing RAC) Organization Information: Site ID: [facility] Address: [address] [place] [address] Director: Rajan Yates Lab Interpretation Abnormal (test code = 29399-3) [facility] with platelet and eaayrgztabqt5285-64-01 09:45:00 Test Item Value Reference Interpretation Comments Range WBC (test code = See_Comment [Automated message] 6690-2) The system An[employer] generated this result transmitted ref erence range: 3.8 - 10 .8 Thousand/uL. Th e reference range was not used to int erpret this result as normal/abnormal . RBC (test code = See_Comment L [Automated message] 789-8) The system [employer] generated this result transmitted ref erence range: 4.20 - 5 .80 Million/uL. The reference range was not used to int erpret this result as normal/abnormal . HGB (test code = 9.9 g/dL 13.2-17.1 L 718-7) HCT (test code = 32.6 % 38.5-50.0 L 4544-3) MCV (test code = 89.1 fL 80.0-100.0 787-2) MCH (test code = 27.0 pg 27.0-33.0 785-6) MCHC (test code = 30.4 g/dL 32.0-36.0 L 786-4) RDW (test code = 17.6 % 11.0-15.0 H 788-0) Platelet count See_Comment [Automated m essage] (test code = 777-3) The syst em which generated this result transmitted ref erence range: 140 - 40 0 Thousand/uL. Th e reference range was not used to int erpret this result as normal/abnormal . MPV (test code = 9.9 fL 7.5-12.5 776-5) Neutrophils, See_Comment [Automated Waddle] absolute (test code The syst em which = 751-8) generated this result transmitted ref erence range: 1,500 - 7,800 cells/uL. The reference range was not used to int erpret this result as normal/abnormal . Lymphocytes, See_Comment [Automated Waddle] absolute (test code The syst em which = 731-0) generated this result transmitted ref erence range: 850 - 3, 900 cells/uL. The reference range was not used to int erpret this result as normal/abnormal . Monocytes, absolute See_Comment [Automa julien message] (test code = 742-7) The syst em which generated this result transmitted ref erence range: 200 - 95 0 cells/uL. The reference range was not used to int erpret this result as normal/abnormal . Eosinophils, See_Comment [Automated LUXA asya] absolute (test code The syst em which = 711-2) generated this result transmitted ref erence range: 15 - 500 cells/uL. The reference range was not used to int erpret this result as normal/abnormal . Basophils, absolute See_Comment [Automa julien message] (test code = 704-7) The syst em which generated this result transmitted ref erence range: 0 - 200 cells/uL. The reference range was not used to int erpret this result as normal/abnormal . Neutrophils (test 61.2 % code = 770-8) Lymphocytes (test 27.6 % code = 736-9) Monocytes (test 8.9 % code = 5905-5) Eosinophils (test 1.9 % code = 713-8) Basophils + RC 0.4 % (test code = 706-2) Nucleated RBC (test Review o f peripheral code = 8251-1) smear confirmsautomat ed results. RAC (test code = Performing RAC) Organization Information: Site ID: RGA Name: [facility] Address: [address] [place] [phone] Director: Rajan Yates Lab Interpretation Abnormal (test code = 57835-4) [facility] metabolic [id number] 09:45:00 Test Item Value Reference Interpretation Comments Range Glucose (test code 91 mg/dL 65-99 Fasting reference = 2345-7) interval BUN (test code = 52 mg/dL 7-25 H 3094-0) Creatinine (test 2.35 mg/dL 0.70-1.11 H For patient s >49 code = 2160-0) years of age, the reference limit for Creatinine is approximately 1 3% higher for peopleidentifie d as -Ines n. EGFR Non-Afr. See_Comment L [Automated me ssage] Chinese (test code The syst em which = 2775) generated this result transmit julien reference range : > OR = 60 mL/min/1.73m2. The reference range was not used to interpret this result as normal/abnormal . EGFR See_Comment L [Automated mes asya] Chinese (test code The syst em which = 2774) generated this result transmit julien reference range : > OR = 60 mL/min/1.73m2. The reference range was not used to interpret this result as normal/abnormal . BUN/creatinine See_Comment [Automated m essage] ratio (test code = The syste m which 3097-3) generated this result transmit julien reference range : 6 - 22 (calc). The reference range was not used to interpret this result as normal/abnormal . Sodium (test code = 138 mmol/L 784-297 5553-2) Potassium (test 4.5 mmol/L 3.5-5.3 code = 2823-3) Chloride (test code 99 mmol/L 98-110 = 2075-0) CO2 (test code = 28 mmol/L 20-32 2027-) Calcium (test code 7.5 mg/dL 8.6-10.3 L = 69332-2) RAC (test code = Performing RAC) Organization Information: Site ID: ASHANTI Name: [facility] Lab Address: [address] [place] [address] Director: Rajan Yates Lab Interpretation Abnormal (test code = 39002-6) [facility], [id number] 09:45:00 Test Item Value Reference Range Interpretation Comments T4, free (test code 1.2 ng/dL 0.8-1.8 = 3024-7) RAC (test code = Performing Organization RAC) Information: Site ID: A Name: [facility] Address: [address] [place] [address] Director: Rajan Yates [facility] stimulating [id number] 09:45:00 Test Item Value Reference Range Interpretation Comments TSH (test code = See_Comment H [Automated 5106-3) message] The system which generated this result transmitted reference range : 0.40 - 4.50 mIU/L. The reference range was not used to interpret this result as normal/abnormal . RAC (test code = Performing RAC) Organization Information: Site ID: ASHANTI Name: [facility] see Lab Address: [address] [place] [phone] Director: Rajan Yates Lab Interpretation Abnormal (test code = 36158-5) [facility] [id number] 09:45:00 Test Item Value Reference Range Interpretation Comments Uric acid (test code 13.2 mg/dL 4.0-8.0 H Therape utic = 3084-1) target for gout patients: <6.0 mg/dL RAC (test code = Performing RAC) Organization Information: Site ID: A Name: [facility] Lab Address: [address] [place] [address] Director: Rajan Yates Lab Interpretation Abnormal (test code = 18891-2) [facility] with platelet and [id number] 09:45:00 Test Item Value Reference Interpretation Comments Range WBC (test code = See_Comment [Automated message] 6690-2) The system whic h generated this result transmitted ref erence range: 3.8 - 10 .8 Thousand/uL. Th e reference range was not used to int erpret this result as normal/abnormal . RBC (test code = See_Comment L [Automated message] 789-8) The system [employer] h generated this result transmitted ref erence range: 4.20 - 5 .80 Million/uL. The reference range was not used to int erpret this result as normal/abnormal . HGB (test code = 9.9 g/dL 13.2-17.1 L 718-7) HCT (test code = 32.6 % 38.5-50.0 L 4544-3) MCV (test code = 89.1 fL 80.0-100.0 787-2) MCH (test code = 27.0 pg 27.0-33.0 785-6) MCHC (test code = 30.4 g/dL 32.0-36.0 L 786-4) RDW (test code = 17.6 % 11.0-15.0 H 788-0) Platelet count See_Comment [Automated m essage] (test code = 777-3) The syst em which generated this result transmitted ref erence range: 140 - 40 0 Thousand/uL. Th e reference range was not used to int erpret this result as normal/abnormal . MPV (test code = 9.9 fL 7.5-12.5 776-5) Neutrophils, See_Comment [Automated mes asya] absolute (test code The syst em which = 751-8) generated this result transmitted ref erence range: 1,500 - 7,800 cells/uL. The reference range was not used to int erpret this result as normal/abnormal . Lymphocytes, See_Comment [Automated mes asya] absolute (test code The syst em which = 731-0) generated this result transmitted ref erence range: 850 - 3, 900 cells/uL. The reference range was not used to int erpret this result as normal/abnormal . Monocytes, absolute See_Comment [Automa julien message] (test code = 742-7) The syst em which generated this result transmitted ref erence range: 200 - 95 0 cells/uL. The reference range was not used to int erpret this result as normal/abnormal . Eosinophils, See_Comment [Automated mes asya] absolute (test code The syst em which = 711-2) generated this result transmitted ref erence range: 15 - 500 cells/uL. The reference range was not used to int erpret this result as normal/abnormal . Basophils, absolute See_Comment [Automa julien message] (test code = 704-7) The syst em which generated this result transmitted ref erence range: 0 - 200 cells/uL. The reference range was not used to int erpret this result as normal/abnormal . Neutrophils (test 61.2 % code = 770-8) Lymphocytes (test 27.6 % code = 736-9) Monocytes (test 8.9 % code = 5905-5) Eosinophils (test 1.9 % code = 713-8) Basophils + RC 0.4 % (test code = 706-2) Nucleated RBC (test Review o f peripheral code = 8251-1) smear confirmsautomat ed results. RAC (test code = Performing RAC) Organization Information: Site ID: RGA [facility] Address: [address] [place] [address] Director: Rajan Yates Lab Interpretation Abnormal (test code = 66339-2) [facility] [id number] 10:00:39 Test Item Value Reference Range Interpretation Comments CULTURE (BEAKER) (test No growth in 5 days code = 1095) BLOOD [id number] 10:00:38 Test Item Value Reference Range Interpretation Comments CULTURE (BEAKER) (test No growth in 5 days code = 1095) [id number] 08:17:33 Test Item Value Reference Range Interpretation Comments MAGNESIUM (BEAKER) 1.8 mg/dL 1.5-3.0 Specimen slightly (test code = 627) hemolyzed Vocational Rehab Consultant ID - DSENSONOperator ID - DSENSONOperator ID - DSENSONOperator ID - DSENSONBASIC METABOLIC [id number] 05:35:07 Test Item Value Reference Range Interpretation [...] 697) EGFR (BEAKER) (test 38 mL/min/1.73 ESTIMA JULIEN GFR IS code = 1092) sq m NOT ACCURATE CREATININE CLEARANCE IN PREDICTING GLOMERULAR FILTRATION RATE . ESTIMATED GFR I S NOT APPLICABLE FOR DIALYSIS PATIEN TS. Vocational Rehab Consultant ID - [id number] ID - [id number] ID - [id number] ID - [id number] ID - [id number] ID - UXTR43Dgeyneaf ID - SWQL80Gsygmxen ID - FGEE04Hkxrxgdp ID - MBAN90Cxehhxqc ID - [id number] ID - EBZW66Buaudowi ID - [id number] ID - [id number] W/PLT COUNT & AUTO [id number] 05:04:38 Test Item Value Reference Range Interpretation [...] PERCENT (BEAKER) (test code = 2801) POCT-GLUCOSE [id number] 04:47:27 Test Item Value Reference Range Interpretation Comments POC-GLUCOSE METER 98 mg/dL 70-110 : TESTED A T [facility] [address] (BEAKER) (test code = [address]) [place] [id number]: Vocational Rehab Consultant/Techni kate ID = [id number] for Math ew, Michelle POCT-GLUCOSE [id number] 23:00:37 Test Item Value Reference Range Interpretation Comments POC-GLUCOSE METER 100 mg/dL 70-110 : TESTED A T [facility] [address] (BEAKER) (test code [address], = 1538) [place] [address]: Vocational Rehab Consultant/Techni kate ID = [id number] for Math ew, Michelle POCT-GLUCOSE [id number] 15:20:37 Test Item Value Reference Range Interpretation Comments POC-GLUCOSE METER 126 mg/dL 70-110 H : TESTED A T [facility] [address] (BEAKER) (test code [address], = 1538) [place] [address] 478: Vocational Rehab Consultant/Techni kate ID = [id number] for Will iams, Caro POCT-GLUCOSE [id number] 11:52:27 Test Item Value Reference Range Interpretation Comments POC-GLUCOSE METER 94 mg/dL 70-110 : TESTED A T [facility] [address] (BEAKER) (test code = [address], 1538) [place] [address] 478: Vocational Rehab Consultant/Techni kate ID = [id number] for Will iams, Caro POCT-GLUCOSE [id number] 06:47:47 Test Item Value Reference Range Interpretation Comments POC-GLUCOSE METER 92 mg/dL 70-110 : TESTED A T [facility] [address] (BEAKER) (test code = [address], 1538) [place] [address] 478: Vocational Rehab Consultant/Techni kate ID = [id number] for Bridget Salas BASIC METABOLIC [id number] 05:34:54 Test Item Value Reference Range Interpretation [...] 697) EGFR (BEAKER) (test 38 mL/min/1.73 ESTIMA JULIEN GFR IS code = 1092) sq m NOT ACCURATE CREATININE CLEARANCE IN PREDICTING GLOMERULAR FILTRATION RATE . ESTIMATED GFR I S NOT APPLICABLE FOR DIALYSIS PATIEN TS. Vocational Rehab Consultant ID - NSUVAGIYAOperator ID - NSUVAGIYAOperator ID - NSUVAGIYAOperator ID - NSUVAGIYAOperatorID - NSUVAGIYAOperator ID - NSUVAGIYAOperator ID - NSUVAGIYAOperator ID - NSUVAGIYAOperator ID - NSUVAGIYAOperator ID - NSUVAGIYAOperator ID - NSUVAGIYAOperator ID - NSUVAGIYAOperator ID - NSUVAGIYA CBC W/PLT COUNT & AUTO [id number] 05:03:55 Test Item Value Reference Range Interpretation [...] PERCENT (BEAKER) (test code = 2801) POCT-GLUCOSE [id number] 21:46:46 Test Item Value Reference Range Interpretation Comments POC-GLUCOSE METER 163 mg/dL 70-110 H : TESTED A T [facility] 1317 (BEAKER) (test code [facility], = 1538) [place] [address]: Vocational Rehab Consultant/Techni kate ID = [id number] for Ben buckley [place]i POCT-GLUCOSE [id number] 17:12:16 Test Item Value Reference Range Interpretation Comments POC-GLUCOSE METER 132 mg/dL 70-110 H : Notified RN/MD: TESTED (BEAKER) (test code AT [facility] [address] = 1538) [place] [address]: Vocational Rehab Consultant/Techni kate ID = [id number] for Laws on, Latishia POCT-GLUCOSE [id number] 11:09:45 Test Item Value Reference Range Interpretation Comments POC-GLUCOSE METER 128 mg/dL 70-110 H : Notified RN/MD: TESTED (BEAKER) (test code AT [facility] [address] = 1538) [place] [address]: Vocational Rehab Consultant/Techni kate ID = [id number] for Laws on, Latishia BASIC METABOLIC [id number] 10:11:46 Test Item Value Reference Range Interpretation [...] m DATA TO CALCULA TE ESTIMATED GFR. Vocational Rehab Consultant ID - [id number] ID - [id number] ID - QZVWZ640Nvtrlxch ID - HNVHI879Ogkpaopg ID - [id number] ID - MUVZK615Giksovot ID - ZPEME586Rphlxzvl ID - [id number] ID - [id number] ID - [id number] 10:09:12 Test Item Value Reference Range Interpretation Comments MAGNESIUM (BEAKER) (test code = 2.0 mg/dL 1.5-3.0 627) Vocational Rehab Consultant ID - [id number] ID - [id number] ID - [id number] ID - [id number] W/PLT COUNT & AUTO [id number] 09:35:09 Test Item Value Reference Range Interpretation [...] PERCENT (BEAKER) (test code = 2801) POCT-GLUCOSE [id number] 06:09:14 Test Item Value Reference Range Interpretation Comments POC-GLUCOSE METER 84 mg/dL 70-110 : TESTED A T [facility] (BEAKER) (test code = [address], 15[address]) [place] [address] 478: Vocational Rehab Consultant/Techni kate ID = [id number] for Michelle Knight POCT-GLUCOSE [id number] 21:48:15 Test Item Value Reference Range Interpretation Comments POC-GLUCOSE METER 122 mg/dL 70-110 H : TESTED A T [facility] [address] (BEAKER) (test code [address], = 1538) [place] [address] 478: Vocational Rehab Consultant/Techni kate ID = [id number] for Bridget Salas POCT-GLUCOSE [id number] 17:30:56 Test Item Value Reference Range Interpretation Comments POC-GLUCOSE METER 78 mg/dL 70-110 : TESTED A T [address] (BEAKER) (test code = [address], 1538) [facility] 77 478: Vocational Rehab Consultant/Techni kate ID = [id number] for Beka Adorno POCT-GLUCOSE [id number] 11:52:53 Test Item Value Reference Range Interpretation Comments POC-GLUCOSE METER 72 mg/dL 70-110 : TESTED A T [facility] [address] (BEAKER) (test code = [address], 1538) [place] [address] 478: Vocational Rehab Consultant/Techni kate ID = [id number] for Beka Adorno HEPATIC FUNCTION [id number] 06:59:28 Test Item Value Reference Range Interpretation [...] Specimen slightly (test code = 347) hemolyzed Vocational Rehab Consultant ID - [id number] ID - upsq91Lwiabjkh ID - sokq18Jakvmcag ID - fgri32Ofhogsnj ID - xknq23Qhpgdaxa ID - chqb81Ytmeajqm ID - tntx51Eufyucfz ID - mtsx71Mbtgeypk ID - nsdj47Vftnigew ID - ykef55TPUUU METABOLIC [id number] 06:56:05 Test Item Value Reference Range Interpretation [...] m DATA TO CALCULA TE ESTIMATED GFR. Vocational Rehab Consultant ID - [id number] ID - wxrn96Hplgzfuy ID - lvxo83Wdordzbs ID - gpbd46Kobqrvdr ID - myul74Ltexuhic ID - eyok02Vwagevar ID - tlbg42Esgwxypz ID - hurb41Lrxgxxmx ID - kevg96Tznxwbii ID - jbhi82FOL W/PLT COUNT & AUTO [id number] 06:40:28 Test Item Value Reference Range Interpretation [...] PERCENT (BEAKER) (test code = 2801) POCT-GLUCOSE [id number] 05:32:55 Test Item Value Reference Range Interpretation Comments POC-GLUCOSE METER 89 mg/dL 70-110 : Notified RN/MD: TESTED (BEAKER) (test code = AT [facility] L [address]) [place] [address]: Vocational Rehab Consultant/Techni kate ID = [id number] for Prov ost, Maribeth POCT-GLUCOSE [id number] 17:11:16 Test Item Value Reference Range Interpretation Comments POC-GLUCOSE METER 124 mg/dL 70-110 H : Notified RN/MD: TESTED ([facility]) (test code AT [facility] [address] = 1538) [place] [address]: Vocational Rehab Consultant/Techni kate ID = [id number] for Dariel h, Lorita POCT-GLUCOSE [id number] 11:57:49 Test Item Value Reference Range Interpretation Comments POC-GLUCOSE METER 164 mg/dL 70-110 H : Notified RN/MD: TESTED (BEAKER) (test code AT [facility] [address] = 1538) [facility] [address]: Vocational Rehab Consultant/Techni kate ID = [id number] for Dariel Guilherme cornelius BASIC METABOLIC [id number] 05:37:52 Test Item Value Reference Range Interpretation [...] m DATA TO CALCULA TE ESTIMATED GFR. Vocational Rehab Consultant ID - LITOOperator ID - LITOOperator ID - LITOOperator ID - LITOOperator ID - LITOOperator ID - LITOOperator ID - LITOOperator ID - LITOOperator ID - LITOOperator ID - LITOHEPATIC FUNCTION [id number] 05:33:43 Test Item Value Reference Range Interpretation [...] Specimen slightly (test code = 347) hemolyzed Vocational Rehab Consultant ID - LITOOperator ID - LITOOperator ID - LITOOperator ID - LITOOperator ID - LITOOperator ID - LITOOperator ID - LITOOperator ID - LITOOperator ID - LITOOperator ID - LITOCBC W/PLT COUNT & AUTO [id number] 05:31:08 Test Item Value Reference Range Interpretation [...] (BEAKER) (test code = 2801) HEMOGLOBIN AND [id number] 22:35:07 Test Item Value Reference Range Interpretation Comments HEMOGLOBIN (BEAKER) (test code = 8.2 GM/DL 13.0-16.8 L 410) HEMATOCRIT (BEAKER) (test code = 26.1 % 36.0-50.0 L 411) POCT-GLUCOSE [id number] 21:10:24 Test Item Value Reference Range Interpretation Comments POC-GLUCOSE METER 158 mg/dL 70-110 H : Notified RN/MD: TESTED (BEAKER) (test code AT [address] PO[address] = 1538) [facility] [address]: Vocational Rehab Consultant/Techni kate ID = [id number] for Prov Maribeth lee U/S, RENAL, [id number] 18:57:00Reason for exam:->elevated Cr [facility] OSBORN : 1935 Sex: MFINALREPORT TECHNIQUE: Grayscale ultrasound of the kidneys and bladder. INDICATION: 86-year-old man with elevated creatinine. COMPARISON: None. FINDINGS: RIGHT KIDNEY: Right kidney measures 11.9 x 5.6 x 4.9 cm with cortical thickness of 1.2 cm. No solid mass. 3.8 x 3.8 x 4.1 cm simple cyst in the right lower pole. No hydronephrosis. LEFT KIDNEY: Left kidney measures 10.7 x 5.8 x 5.3 cm with cortical thickness of 0.9 cm. No solid mass. No hydronephrosis. BLADDER: Bladder is underdistended and contains a Hassan catheter. IMPRESSION:No hydronephrosis. Simple right renal cyst. Signed: Jolene Mirkayleen Verified Date/Time: 09/23/2021 18:57:43 HEMOGLOBIN AND [id number] 18:02:18 Test Item Value Reference Range Interpretation Comments HEMOGLOBIN (BEAKER) (test code = 9.4 GM/DL 13.0-16.8 L 410) HEMATOCRIT (BEAKER) (test code = 29.9 % 36.0-50.0 L 411) TROPONIN [id number] 17:56:55 Test Item Value Reference Range Interpretation [...] failure, acidosis, acute neurological disease, and persistent tachyarrhythmia.Vocational Rehab Consultant ID - ERINYPOCT-GLUCOSE METER 2021-09-23 17:52:16 Test Item Value Reference Range Interpretation Comments POC-GLUCOSE METER 118 mg/dL 70-110 H : TESTED A T [facility] [address] (BEAKER) (test code [address], = 1538) [place] [address] 478: Vocational Rehab Consultant/Techni kate ID = [id number] for Sarah Teran POCT-GLUCOSE [id number] 11:32:42 Test Item Value Reference Range Interpretation Comments POC-GLUCOSE METER 131 mg/dL 70-110 H : TESTED A T [facility] [address] (BEAKER) (test code [address], = 1538) [place] [address] 478: Vocational Rehab Consultant/Techni kate ID = [id number] for Selene Tinajero TROPONIN [id number] 10:57:24 Test Item Value Reference Range Interpretation [...] failure, acidosis, acute neurological disease, and persistent tachyarrhythmia.Vocational Rehab Consultant ID - JAQUELYNNEHEMOGLOBIN AND [id number] 10:50:03 Test Item Value Reference Range Interpretation Comments HEMOGLOBIN (BEAKER) (test code = 9.1 GM/DL 13.0-16.8 L 410) HEMATOCRIT (BEAKER) (test code = 28.9 % 36.0-50.0 L 411) URINALYSIS W/ REFLEX URINE [id number] 07:28:56 Test Item Value Reference Range Interpretation [...] 1663) SOURCE(BEAKER) (test code = 2795) TROPONIN [id number] 06:35:09 Test Item Value Reference Range Interpretation [...] failure, acidosis, acute neurological disease, and persistent tachyarrhythmia.Vocational Rehab Consultant ID - [id number] A1C 2021-09-23 05:13:31 Test Item Value Reference Range Interpretation Comments HEMOGLOBIN A1C (BEAKER) (test code = 5.7 % 4.3-6.1 368) Vocational Rehab Consultant ID - [id number], CHEST, 1 VIEW, NON [id number] 04:38:00Reason for exam:->baselineShould this be performed at the bedside?->Yes [facility] 1935 Sex: MFINALREPORT INDICATION: baseline COMPARISON: None TECHNIQUE: Single frontal view of the chest. FINDINGS: Lungs and pleura: Clear lungs. No effusion. Heart and mediastinum: Normal heart size. 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 Unremarkable mediastinal contours. Osseous structures: No acute abnormality. Other: None. IMPRESSION: No acute intrathorac ic abnormality. Signed: Albert Arango MDReport Verified Date/Time: 09/23/2021 04:38:32 Electronicallysigned by: ALBERT ARANGO MD on 09/23/2021 04:38 AMBASIC METABOLIC [id number] 04:34:59 Test Item Value Reference Range Interpretation [...] m DATA TO CALCULA TE ESTIMATED GFR. Vocational Rehab Consultant ID - [id number] ID - MLIX96Abpoykla ID - ZHZL96Wdnznmpl ID - BSFR05Rxiqmohu ID - HRYH80Pmltdwpm ID - MYOI59Kzwiewda ID - JJLO62Cuijckfp ID - HJOS02Bqmuupqc ID - BIDU76Udtpsdrn ID - [id number] 04:32:57 Test Item Value Reference Range Interpretation Comments MAGNESIUM (BEAKER) 2.2 mg/dL 1.5-3.0 Specimen slightly (test code = 627) hemolyzed Vocational Rehab Consultant ID - [id number] ID - QHDQ01Sjfugsdr ID - EIQA06Gururzrq ID - ZRES04 HEPATIC FUNCTION [id number] 04:32:57 Test Item Value Reference Range Interpretation [...] Specimen slightly (test code = 347) hemolyzed Vocational Rehab Consultant ID - APUU94Rjaimaim ID - ACSG26Yffxuoaw ID - OHDK94Rlvfuyau ID - STDH19Ttjhteoj ID - XHWD34Jrppcezv ID - KDIK87Isqpdpfj ID - [id number] 2021-09-23 04:29:39 Test Item Value Reference Range Interpretation Comments PHOSPHORUS (BEAKER) 4.3 mg/dL 2.5-4.5 Specimen slightly (test code = 604) hemolyzed Vocational Rehab Consultant ID - [id number] TIME/[id number] 04:25:54 Test Item Value Reference Range Interpretation Comments PROTIME (BEAKER) 12.6 seconds 9.3-12.0 H Final Infor mation (test code = 759) (Auto Outp ut) INR (BEAKER) (test 1.16 See_Comment Final Inf ormation code = 370) (Auto Output) [Automated mess age] The system Anulex generated this result transmitted ref erence range: <=5.90. The reference range was not used to int erpret this result as normal/abnormal . RECOMMENDED COUMADIN/WARFARIN INR THERAPY RANGESSTANDARD DOSE: 2.0 - 3.0 Includes: PROPHYLAXIS for venous thrombosis, systemic embolization; TREATMENT for venous thrombosis and/or pulmonary embolus.HIGH RISK: Target INR is 2.5-3.5 for patients with mechanical heart valves.CBC W/PLT COUNT & AUTO [id number] 04:16:54 Test Item Value Reference Range Interpretation [...] PERCENT (BEAKER) (test code = 2801) POCT-GLUCOSE [id number] 03:44:38 Test Item Value Reference Range Interpretation Comments POC-GLUCOSE METER 167 mg/dL 70-110 H : TESTED A T [facility] [address] (BEAKER) (test code [address], = 1538) [place] [id number]: Vocational Rehab Consultant/Techni kate ID = [id number] for Ahsan Orozco POCT-GLUCOSE [id number] 03:27:46 Test Item Value Reference Range Interpretation Comments POC-GLUCOSE METER 164 mg/dL 70-110 H : TESTED A T [facility] [address] (BEAKER) (test code [address], = 1538) [place] [id number]: Vocational Rehab Consultant/Techni kate ID = [id number] for [place] mak Richyflokaleigh POC [id number] 18:51:34 Test Item Value Reference Range Interpretation Comments POC glucose (test code 116 mg/dL 65-99 H Opera tor Name: [place] = 31799-6) SuzynDevice ID : [id number] able: [facility] Notified teletype clerk Interpretation Abnormal (test code = 23208-1) [facility] [id number] 18:51:34 Test Item Value Reference Range Interpretation Comments POC glucose (test code 116 mg/dL 65-99 H Opera tor Name: [place] = 53523-5) SuzynDevice ID : [id number] able: [facility] Notified teletype clerk Interpretation Abnormal (test code = 25685-0) [facility] SuufjdfjSVSE-XfB-5 (COVID-19) RNA [Presence] in Respiratory specimen by ANDREW with probe [id number] 11:35:00 Test Item Value Reference Range Interpretation Comments 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 (test code = 44984-3) Whether the patient was admitted to intensive care unit (ICU) for condition of interest (test code = 69232-7) ECG ED Preliminary Interpretation - Not an [id number] 02:10:59 Test Item Value Reference Range Interpretation Comments IRAJ (test code = IRAJ) Jami Dubois MD 06/28/2021 3:18 [facility] ED Preliminary Interpretation - Not an OrderPerformed by: Jami Dubois MDAuthorized by: Jami Dubois MD ECG reviewed by ED Physician in the absence of a carbon lamp cleaner: yes Interpretation: Interpretation: abnormal Rate: ECG rate: 72 ECG rate assessment: normal Rhythm: Rhythm: paced Pacing: Capture: CompleteEctopy: Ectopy: none QRS: QRS axis: Normal QRS intervals: NormalConduction: Conduction: normal ST segments: ST segments: NormalT waves: T waves: normal Lab Interpretation Abnormal (test code = 89978-2) [facility] Interpretation - Not an [id number] 02:10:59 Test Item Value Reference Range Interpretation Comments IRAJ (test code = IRAJ) Jami Dubois MD 06/28/2021 3:18 [facility] ED Preliminary Interpretation - Not an OrderPerformed by: Jami Dubois, MDAuthorized by: Jami Dubois MD ECG reviewed by ED Physician in the absence of a carbon lamp cleaner: yes Interpretation: Interpretation: abnormal Rate: ECG rate: 72 ECG rate assessment: normal Rhythm: Rhythm: paced Pacing: Capture: CompleteEctopy: Ectopy: none QRS: QRS axis: Normal QRS intervals: NormalConduction: Conduction: normal ST segments: ST segments: NormalT waves: T waves: normal Lab Interpretation Abnormal (test code = 58467-6) [facility] CenterHemoglobin [id number] 14:36:00 Test Item Value Reference Interpretation Comments Range Hemoglobin A1C (test See_Comment H For tyler eone without code = 4548-4) known diabete s, a hemoglobin A1cv alue of 6.5% or grea ter indicates that they may have diabet es and this should be confirmed with a follow-up test. For someone with kn own diabetes, a lou ue <7% indicates t hat their diabetes is well controlled and a value greater than or equal t o 7% indicates suboptimal cont rol. A1c targets kerri uld be individualiz ed based on durati on of diabetes, ag e, comorbid conditions, and other considerations. Currently, no consensus exist s regarding use ofhemoglobin A1 c for diagnosis o f diabetes for children. [Automated mess age] The system Anulex generated this result transmit julien reference range : <5.7 % of total Hgb. The refere nce range was not u sed to interpret th is result as normal/abnormal . IRAJ (test code = FASTING:NO IRAJ) FASTING: NO RAC (test code = Performing RAC) Organization Information: Site ID: RGA Name: [facility] Address: [address] [place], [place] [address] Director: Rajan Yates Lab Interpretation Abnormal (test code = 56584-1) [facility] CenterGqsjzgavZO-kkfUQO5870-32-08 14:36:00 Test Item Value Reference Interpretation Comments Range NT-proBNP (test 2736 pg/mL H Male Risk: Optimal code = 17827-0) < 253 pg/mL High > or = 253 pg/mL For Heart Failure ( HF) diagnosis, referenceranges in patients with dyspnea are bas ed Kaleigh Horne t al. J Am Rodolfo Cardiol.2018;71 :1191 -1200. 18-49 ye ars: <= 300 pg/mL No rmal, HF unlikely >= 450 pg/mL High probability of HF50-75 years: <= 300 pg/mL [place], HF unlikely >= 900 pg/mL High probability of HF>75 years: <= 300 p g/mL Normal, HF unli kianna >= 1800 pg/mL H igh probability of HF For patients wi th coronary heart disease, theopt imal risk category c ut points for inci dent HFor CVD (<253 pg/mL men, <372 pg/mL women) arebased on Luzmaria, et al. J Am Rodolfo Cardiol.2007:50 :205- 14. For patient s with existing H F, the optimal riskcategory cu t point for HF progression (<3 00 pg/mL)is based on Carmelo KB, et al. Clin Biochem.2010;43 :1405 -10. For additi onal information, pl ease refer tohttp://educat ion.[employer]/ faq/KRC620(This link is being provid ed for informational/e ducat ionalpurposes o nly.) IRAJ (test code = FASTING:NO IRAJ) FASTING: NO RAC (test code = Performing RAC) Organization Information: Site ID: EZ Name: [employer], Address: [address] [place] [id number] Director: Nissa Frey MD,PhD,GHULAM Lab Interpretation Abnormal (test code = 65458-8) [facility] NorthwestHemoglobin [id number] 14:36:00 Test Item Value Reference Interpretation Comments Range Hemoglobin A1C (test See_Comment H For tyler eone without code = 4548-4) known diabete s, a hemoglobin A1cv alue of 6.5% or grea ter indicates that they may have diabet es and this should be confirmed with a follow-up test. For someone with kn own diabetes, a lou ue <7% indicates t hat their diabetes is well controlled and a value greater than or equal t o 7% indicates suboptimal cont rol. A1c targets kerri uld be individualiz ed based on durati on of diabetes, ag e, comorbid conditions, and other considerations. Currently, no consensus exist s regarding use ofhemoglobin A1 c for diagnosis o f diabetes for children. [Automated mess age] The system Anulex generated this result transmit julien reference range : <5.7 % of total Hgb. The refere nce range was not u sed to interpret th is result as normal/abnormal . IRAJ (test code = FASTING:NO IRAJ) FASTING: NO RAC (test code = Performing RAC) Organization Information: Site ID: RGA Name: [facility] Lab Address: [address] [place] [phone] Director: Rajan Yates Lab Interpretation Abnormal (test code = 83295-5) [facility] NorthwestYnjaponnMZ-efzBTG1971-16-08 14:36:00 Test Item Value Reference Interpretation Comments Range NT-proBNP (test 2736 pg/mL H Male Risk: Optimal code = 62420-3) < 253 pg/mL High > or = 253 pg/mL For Heart Failure ( HF) diagnosis, referenceranges in patients with dyspnea are bas ed onQuoc HERRMANN, E t al. J Am Rodolfo Cardiol.2018;71 :1191 -1200. 18-49 ye ars: <= 300 pg/mL No rmal, HF unlikely >= 450 pg/mL High probability of HF50-75 years: <= 300 pg/mL [place], HF unlikely >= 900 pg/mL High probability of HF>75 years: <= 300 p g/mL Normal, HF unli kianna >= 1800 pg/mL H igh probability of HF For patients wi th coronary heart disease, theopt imal risk category c ut points for inci dent HFor CVD (<253 pg/mL men, <372 pg/mL women) arebased on OmKeisha et al. J Am Rodolfo Cardiol.2007:50 :205- 14. For patient s with existing H F, the optimal riskcategory cu t point for HF progression (<3 00 pg/mL)is based on Rico KB, et al. Clin Biochem.2010;43 :1405 -10. For additi onal information, pl ease refer tohttp://educat ion.[employer]/ faq/TBK038(This link is being provid ed for informational/e ducat ionalpurposes o nly.) IRAJ (test code = FASTING:NO IRAJ) FASTING: NO RAC (test code = Performing RAC) Organization Information: Site ID: EZ Name: [employer] [facility], Address: [address] [place] [phone] Director: Nissa Frey MD,PhD,GHULAM Lab Interpretation Abnormal (test code = 51307-3) [facility]) RNA [Presence] in Respiratory specimen by ANDREW with probe [id number] 00:24:51 Test Item Value Reference Range Interpretation Comments SARS-CoV-2 (COVID-19) RNA Not detected Not-Detected [Presence] in Respiratory specimen by ANDREW with probe detection (test code = 60676-5) SARS-CoV-2 (COVID-19) RNA [Presence] in Respiratory specimen by ANDREW with probe [id number] 23:06:04 Test Item Value Reference Range Interpretation Comments SARS-CoV-2 (COVID-19) RNA Not detected Not-Detected [Presence] in Respiratory specimen by ANDREW with probe detection (test code = 34740-5) SARS-CoV-2 (COVID-19) RNA [Presence] in Respiratory specimen by ANDREW with probe [id number] 19:57:13 Test Item Value Reference Range Interpretation Comments SARS-CoV-2 (COVID-19) RNA Not detected Not-Detected [Presence] in Respiratory specimen by ANDREW with probe detection (test code = 37081-1) SARS-CoV-2 (COVID-19) RNA [Presence] in Respiratory specimen by ANDREW with probe pvtfbiecc5020-02-08 23:40:00 Test Item Value Reference Range Interpretation Comments SARS-CoV-2 (COVID-19) RNA Not detected Not-Detected [Presence] in Respiratory specimen by ANDREW with probe detection (test code = 10729-2) SARS-CoV-2 (COVID-19) RNA [Presence] in Respiratory specimen by ANDREW with probe [id number] 22:07:46 Test Item Value Reference Range Interpretation Comments SARS-CoV-2 (COVID-19) RNA Not detected Not-Detected [Presence] in Respiratory specimen by ANDREW with probe detection (test code = 07263-7) SARS-CoV-2 (COVID-19) RNA [Presence] in Respiratory specimen by ANDREW with probe [id number] 21:47:42 Test Item Value Reference Range Interpretation Comments SARS-CoV-2 (COVID-19) RNA Not detected Not-Detected [Presence] in Respiratory specimen by ANDREW with probe detection (test code = 84912-7) SARS-CoV-2 (COVID-19) RNA [Presence] in Respiratory specimen by ANDREW with probe [id number] 14:31:58 Test Item Value Reference Range Interpretation Comments SARS-CoV-2 (COVID-19) RNA Not detected Not-Detected [Presence] in Respiratory specimen by ANDREW with probe detection (test code = 83315-3)
[2022-02-08 11:53] LABS: Absolute Lymphocytes (CBC) 1.4 K/uL (0.7-4.9); Hematocrit 27.9 % (39.6-49.0); Lymphocytes % 28.8 % (15.3-44.8); MCV 86.7 fL (80-100); MPV 7.3 fL (7.6-11.3); RBC Red Blood Cell Count 3.21 M/uL (4.33-5.43)
[2022-02-08 12:04] LABS: SARS-CoV-2 Antigen Rapid Res Negative (Negative)
[2022-02-08 12:10] LABS: Potassium 5.1 mmol/L (3.5-5.1); Troponin High Sensitivity 16.1 pg/mL (<58.9)
--- NOTE | 2022-02-08 13:08 | RAD REPORT ---
EXAM DESCRIPTION: RAD - Chest Single View - 02/08/2022 12:57 pm CLINICAL HISTORY: COPD Chest pain. COMPARISON: Chest Single View dated 01/21/2022; Chest Single View dated 12/14/2021; Chest Single View dated 12/12/2021; Chest Single View dated 12/06/2021 FINDINGS: Portable technique limits examination quality. Mild pulmonary edema is noted. The heart is enlarged with multilead pacer/defibrillator device. No di splaced fractures.Sternotomy wires present. IMPRESSION: Mild CHF.
[2022-02-08] MEDS ORDERED: FUROSEMIDE 40 MG/4 ML VIAL ONE (14:00)
--- NOTE | 2022-02-08 14:15 | EDPHYS ---
Physician Documentation [facility] Name: Gilmer Mercado Age: 86 yrs Sex: Male : 1935 Arrival Date: 02/08/2022 Time: 10:56 Bed 8 Private MD: ED Physician Alexander العراقي HPI: 02/08 13:17 This 86 yrs old Male presents to ER via EMS with complaints of Shortness Of jl9 Breath. 13:17 The patient has shortness of breath during heavy activity. Duration: The symptoms are jl9 continuous. The patient's shortness of breath is aggravated by light activity. Historical: - Allergies: 12:01 No Known Allergies; jg9 - Home Meds: 11:53 allopurinol 100 mg Oral tab [Active]; amiodarone 200 mg Oral tab 1 tab once daily jg9 [Active]; calcitrol [Active]; Eliquis 2.5 mg Oral tab 1 tab 2 times per day [Active]; finasteride 5 mg Oral tab 1 tab once daily [Active]; furosemide 40 mg Oral tab 1 tab once daily [Active]; gabapentin 300 mg Oral cap 2 caps twice a day [Active]; Humulin R 100 unit/mL soln 500 mL 10-20 units daily [Active]; levothyroxine oral 350 mcg tablet daily [Active]; ranitidine HCl 150 mg Oral tab [Active]; simvastatin 20 mg Oral tab 1 tab once daily [Active]; tamsulosin 0.4 mg Oral cp24 1 cap once daily [Active]; Toprol XL 25 mg Oral Tb24 1 tab twice a day [Active]; - PMHx: 11:53 Alzheimer's disease; BPH; Diabetes - IDDM; High Cholesterol; Hypertension; Pacemaker; jg9 PNUEMONIA; - PSHx: 11:53 CABG; pacemaker; jg9 - Immunization history:: Adult Immunizations up to date. - Social history:: Smoking status: Patient denies any tobacco usage or history of. ROS: 13:18 Constitutional: Negative for fever, chills, and weight loss. jl9 13:18 Eyes: Negative for injury, pain, redness, and discharge, ENT: Negative for injury, pain, and discharge, Neck: Negative for injury, pain, and swelling, Cardiovascular: Negative for chest pain, palpitations, and edema. 13:18 Abdomen/GI: Negative for abdominal pain, nausea, vomiting, diarrhea, and constipation, Back: Negative for injury and pain, : Negative for injury, bleeding, discharge, and swelling, MS/Extremity: Negative for injury and deformity, Skin: Negative for injury, rash, and discoloration, Neuro: Negative for headache, weakness, numbness, tingling, and seizure, Psych: Negative for depression, anxiety, suicide ideation, homicidal ideation, and hallucinations, Allergy/Immunology: Negative for hives, rash, and allergies, Endocrine: Negative for neck swelling, polydipsia, polyuria, polyphagia, and marked weight changes, Hematologic/Lymphatic: Negative for swollen nodes, abnormal bleeding, and unusual bruising. 13:18 Respiratory: Positive for shortness of breath. Exam: 14:14 Constitutional: This is a well developed, well nourished patient who is awake, alert, jl9 and in no acute distress. Head/Face: Normocephalic, atraumatic. Eyes: Pupils equal round and reactive to light, extra-ocular motions intact. Lids and lashes normal. Conjunctiva and sclera are non-icteric and not injected. Cornea within normal limits. Periorbital areas with no swelling, redness, or edema. ENT: Mucous membranes moist. Neck: Trachea midline, no thyromegaly or masses palpated, and no cervical lymphadenopathy. Supple, full range of motion without nuchal rigidity, or vertebral point tenderness. No Meningismus. Chest/axilla: Normal chest wall appearance and motion. Nontender with no deformity. No lesions are appreciated. Cardiovascular: Regular rate and rhythm with a normal S1 and S2. No gallops, murmurs, or rubs. Normal PMI, no JVD. No pulse deficits. 14:14 Abdomen/GI: Soft, non-tender, with normal bowel sounds. No distension or tympany. No guarding or rebound. No evidence of tenderness throughout. Back: No spinal tenderness. No costovertebral tenderness. Full range of motion. Skin: Warm, dry with normal turgor. Normal color with no rashes, no lesions, and no evidence of cellulitis. MS/ Extremity: Pulses equal, no cyanosis. Neurovascular intact. Full, normal range of motion. Neuro: Awake and alert, GCS 15, oriented to person, place, time, and situation. Cranial nerves II-XII grossly intact. Motor strength 5/5 in all extremities. Sensory grossly intact. Cerebellar exam normal. Normal gait. Psych: Awake, alert, with orientation to person, place and time. Behavior, mood, and affect are within normal limits. 14:14 Respiratory: mild respiratory distress is noted. 14:14 Respiratory: Breath sounds: rhonchi, that are mild, are located in both bases. Vital Signs: 10:40 BP 119 / 78; Pulse 82; Resp 20 S; Temp 97.1(TE); Pulse Ox 100% on 3 lpm NC; Weight jg9 93.89 kg (R); Height 5 ft. 11 in. (180.34 cm) (R); Pain 0/10; 11:00 BP 100 / 56; Pulse 70; Resp 16 S; Pulse Ox 100% ; jg9 11:30 BP 93 / ???; Pulse 73; Resp 15 S; Pulse Ox 100% on 3 lpm NC; jg9 13:00 BP 112 / 54; Pulse 70; Resp 20 S; Pulse Ox 100% on 3 lpm NC; jg9 15:00 BP 107 / 54; Pulse 71; Resp 18 S; Pulse Ox 100% on 3 lpm NC; jg9 19:30 BP 118 / 55; Pulse 70; Resp 18; Pulse Ox 100% ; vc1 20:31 BP 108 / 61; Pulse 70; Resp 15; Pulse Ox 100% ; vc1 10:40 Body Mass Index 28.87 (93.89 kg, 180.34 cm) [facility] [place]DM: 11:23 Patient medically screened. [facility] 12:36 Test interpretation: by ED physician or midlevel provider: ECG, Paced rhythm- 72 BPM.. [facility] 14:15 Data reviewed: vital signs, nurses notes, old medical records. 02/08 11:24 Order name: Basic Metabolic Panel; Complete Time: 12:11 02/08 11:24 Order name: CBC with Diff; Complete Time: 12:05 02/08 11:24 Order name: Troponin HS; Complete Time: 12:11 02/08 11:28 Order name: SARS RAPID; Complete Time: 12:05 02/08 13:14 Order name: BNP; Complete Time: 14:09 02/08 14:48 Order name: CBC with Automated Diff EDMS 02/08 14:48 Order name: CBC with Automated Diff EDMS 02/08 14:48 Order name: CBC with Automated Diff EDMS 02/08 14:48 Order name: CBC with Automated Diff EDMS 02/08 14:48 Order name: Comprehensive Metabolic Panel EDMS 02/08 14:48 Order name: Comprehensive Metabolic Panel EDMS 02/08 14:48 Order name: Comprehensive Metabolic Panel EDMS 02/08 14:48 Order name: Comprehensive Metabolic Panel EDMS 02/08 11:24 Order name: XRAY Chest (1 view); Complete Time: 13:09 9 02/08 11:24 Order name: EKG; Complete Time: 11:24 9 02/08 11:24 Order name: Cardiac monitoring; Complete Time: 11:49 9 02/08 11:24 Order name: EKG - Nurse/Tech; Complete Time: 11:48 9 02/08 11:24 Order name: IV Saline Lock; Complete Time: 11:49 9 02/08 11:24 Order name: Labs collected and sent; Complete Time: 11:49 9 02/08 11:24 Order name: O2 Per Protocol; Complete Time: 11:49 9 02/08 11:24 Order name: O2 Sat Monitoring; Complete Time: 11:49 02/08 14:48 Order name: Heart Healthy EDMS 02/08 14:48 Order name: Magnesium EDMS 02/08 14:48 Order name: Magnesium EDMS 02/08 14:48 Order name: Phosphorus EDMS 02/08 14:48 Order name: Phosphorus EDMS Administered Medications: 13:59 Drug: Furosemide 40 mg Route: IVP; Site: left forearm; jg9 16:09 Follow up: Response: No adverse reaction jg9 Disposition Summary: 02/08/22 14:14 Hospitalization Ordered Hospitalization Status: Observation jl9 Location: Telemetry/MedSurg (observation) jl9 Condition: Fair jl9 Problem: an acute exacerbation jl9 Symptoms: have improved jl9 Bed/Room Type: Standard jl9 Provider: Chele Klein(02/08/22 14:40) jl9 Room Assignment: [facility](02/08/22 19:46) Diagnosis - Acute on chronic systolic (congestive) heart failure jl9 - Chronic kidney disease, unspecified jl9 Forms: - Medication Reconciliation Form jl9 - SBAR form jl9 Signatures: Dispatcher [employer] Oly Doran, LUCERO RN Jessika Bain Jennifer, RN RN jg9 Erlin Mcrae jl9 Corrections: (The following items were deleted from the chart) 14:18 14:14 Alexander العراقي9 14:40 14:18 Jorge Dobson jl9 19:46 14:14 [email or web address]
--- NOTE | 2022-02-08 14:15 | ER ---
Nurse's Notes [facility] Name: Gilmer Mercado Age: 86 yrs Sex: Male : 1935 Arrival Date: 02/08/2022 Time: 10:56 Bed 8 Private MD: Diagnosis: Acute on chronic systolic (congestive) heart failure;Chronic kidney disease, unspecified Presentation: 02/08 10:40 Chief complaint: Patient states: sob x 2 days, Hx COPD on home O2 3 L, difficulty jg9 digesting food therefore not eating much, reports nausea as well as general malaise. Coronavirus screen: Vaccine status: Patient reports receiving the 2nd dose of the covid vaccine. Ebola Screen: Patient negative for fever greater than or equal to 101.5 degrees Fahrenheit, and additional compatible Ebola Virus Disease symptoms Patient denies exposure to infectious person. Patient denies travel to an Ebola-affected area in the 21 days before illness onset. Initial Sepsis Screen: Does the patient meet any 2 criteria? No. Patient's initial sepsis screen is negative. Does the patient have a suspected source of infection? No. Patient's initial sepsis screen is negative. Risk Assessment: Do you want to hurt yourself or someone else? Patient reports no desire to harm self or others. Onset of symptoms is unknown. 10:40 Method Of Arrival: EMS: [facility] jg9 10:40 Acuity: VIN 3 jg9 Triage Assessment: 10:40 General: Appears in no apparent distress. Behavior is calm, cooperative. Pain: Denies jg9 pain. Respiratory: Reports shortness of breath since 2 days Airway is patent Trachea midline Respiratory effort is even, unlabored, Respiratory pattern is regular, symmetrical, Breath sounds are clear in right upper lobe, left upper lobe, left posterior upper lobe and right posterior upper lobe Breath sounds are diminished in right middle lobe, left lower lobe, right lower lobe, left posterior lower lobe, right posterior middle lobe and right posterior lower lobe Onset: The symptoms/episode began/occurred gradually, the patient has mild shortness of breath. GI: Abdomen is distended, Bowel sounds present X 4 quads. Abd is soft X 4 quads Abd is rigid Reports indigestion, intolerance of fluids, intolerance of food. Historical: - Allergies: 12:01 No Known Allergies; jg9 - Home Meds: 11:53 allopurinol 100 mg Oral tab [Active]; amiodarone 200 mg Oral tab 1 tab once daily jg9 [Active]; calcitrol [Active]; Eliquis 2.5 mg Oral tab 1 tab 2 times per day [Active]; finasteride 5 mg Oral tab 1 tab once daily [Active]; furosemide 40 mg Oral tab 1 tab once daily [Active]; gabapentin 300 mg Oral cap 2 caps twice a day [Active]; Humulin R 100 unit/mL soln 500 mL 10-20 units daily [Active]; levothyroxine oral 350 mcg tablet daily [Active]; ranitidine HCl 150 mg Oral tab [Active]; simvastatin 20 mg Oral tab 1 tab once daily [Active]; tamsulosin 0.4 mg Oral cp24 1 cap once daily [Active]; Toprol XL 25 mg Oral Tb24 1 tab twice a day [Active]; - PMHx: 11:53 Alzheimer's disease; BPH; Diabetes - IDDM; High Cholesterol; Hypertension; Pacemaker; jg9 PNUEMONIA; - PSHx: 11:53 CABG; pacemaker; jg9 - Immunization history:: Adult Immunizations up to date. - Social history:: Smoking status: Patient denies any tobacco usage or history of. Screenin:02 Abuse screen: Denies threats or abuse. Denies injuries from another. Nutritional jg9 screening: Difficulty chewing/swallowing? Yes. Tuberculosis screening: No symptoms or risk factors identified. Fall Risk Fall in past 12 months (25 points). Assessment: 12:02 Cardiovascular: Rhythm is atrial pacer ventricular pacer. jg9 13:42 Reassessment: Patient appears in no apparent distress at this time. Patient and/or vg1 family updated on plan of care and expected duration. Pain level reassessed. Patient is alert, oriented x 3, equal unlabored respirations, skin warm/dry/pink. 16:09 Reassessment: Patient appears in no apparent distress at this time. Patient and/or jg9 family updated on plan of care and expected duration. Pain level reassessed. Patient is alert, oriented x 3, equal unlabored respirations, skin warm/dry/pink. Patient states feeling better. Patient states symptoms have improved. 19:52 Reassessment: Patient and/or family updated on plan of care and expected duration. Pain vc1 level reassessed. Patient is alert, oriented x 3, equal unlabored respirations, skin warm/dry/pink. Patient states symptoms have improved. Vital Signs: 10:40 BP 119 / 78; Pulse 82; Resp 20 S; Temp 97.1(TE); Pulse Ox 100% on 3 lpm NC; Weight jg9 93.89 kg (R); Height 5 ft. 11 in. (180.34 cm) (R); Pain 0/10; 11:00 BP 100 / 56; Pulse 70; Resp 16 S; Pulse Ox 100% ; jg9 11:30 BP 93 / ???; Pulse 73; Resp 15 S; Pulse Ox 100% on 3 lpm NC; jg9 13:00 BP 112 / 54; Pulse 70; Resp 20 S; Pulse Ox 100% on 3 lpm NC; jg9 15:00 BP 107 / 54; Pulse 71; Resp 18 S; Pulse Ox 100% on 3 lpm NC; jg9 19:30 BP 118 / 55; Pulse 70; Resp 18; Pulse Ox 100% ; vc1 20:31 BP 108 / 61; Pulse 70; Resp 15; Pulse Ox 100% ; vc1 10:40 Body Mass Index 28.87 (93.89 kg, 180.34 cm) jg9 ED Course: 10:56 Patient arrived in ED. eb 11:23 Erlin Mcrae is PHCP. jl9 11:23 Alexander العراقي MD is Attending Physician. jl9 11:25 Celsa Feliz, RN is Primary Nurse. jg9 11:40 SARS RAPID Sent. kc6 11:53 Triage completed. jg9 12:02 Arm band placed on right wrist. jg9 12:03 Pt visited by , [facility] health aide. jg9 12:03 Patient has correct armband on for positive identification. Bed in low position. Call jg9 light in reach. Side rails up X 1. 12:59 XRAY Chest (1 view) In Process Unspecified. EDMS 13:30 Missed attempt(s): 22 gauge in left antecubital area. vg1 13:42 Initial lab(s) drawn, by nc, sent to lab. Inserted saline lock: 22 gauge in left wrist, vg1 using aseptic technique. Blood collected. 14:13 Alexander العراقي MD is Hospitalizing Provider. jl9 14:18 Hospitalizing Provider role handed off by Alexander العراقي MD eb 14:18 Jorge Dobson MD is Hospitalizing Provider. eb 14:39 Hospitalizing Provider role handed off by Jorge Dobson MD jl9 14:39 Chele Klein MD is Hospitalizing Provider. jl9 15:54 Warm blanket given. jg9 19:53 No provider procedures requiring assistance completed. Patient admitted, IV remains in vc1 place. Administered Medications: 13:59 Drug: Furosemide 40 mg Route: IVP; Site: left forearm; jg9 16:09 Follow up: Response: No adverse reaction jg9 Medication: 19:53 VIS not applicable for this client. vc1 Output: 15:53 Urine: 700ml (Voided); Total: 700ml. jg9 Outcome: 14:14 Decision to Hospitalize by Provider. jl9 19:53 Instructed on the need for admit. vc1 20:31 Admitted to Tele accompanied by tech, via stretcher, room 402, with oxygen, with chart, vc1 Report called to Receiving nurse 20:31 Condition: good 20:38 Patient left the ED. vc1 Signatures: Dispatcher [employer] EDMS Jessika Rinaldi Victoria RN RN vg1 Celsa Feliz RN RN jg9 Nolvia Antonio, RN RN 1 Erlin Mcrae jl9 Pham Muniz6 Corrections: (The following items were deleted from the chart) 15:30 13:00 BP 112 / 54; Pulse 70bpm; Resp 20bpm; Pulse Ox 100% 3 lpm Nasal Cannula; vg1 jg9
[2022-02-08] MEDS ORDERED: ACETAMINOPHEN 500 MG TAB PO PRN (14:44)
--- NOTE | 2022-02-08 14:44 | P.HP ---
Certification for Inpatient Patient admitted to: Observation With expected LOS: <2 Midnights Patient will require the following post-hospital care: None Practitioner: I am a practitioner with admitting privileges, knowledge of patient current condition, hospital course, and medical plan of care. Services: Services provided to patient in accordance with Admission requirements found in Title 42 Section 412.3 of the Code of Federal Regulations Patient History Date of Service: 02/08/22 Reason for admission: Acute CHF Exacerbation History of Present Illness: Mr. Gilmer Mercado is a pleasant 86 year old male who has a past medical history of chronic congestive heart failure (unknown ejection fraction), chronic kidney disease stage III, type II diabetes mellitus, hypertension, and phimosis who presents to the [facility] Emergency Department for shortness of breath. He reports that, over the last day, he has been experiencing progressively worsening shortness of breath. He states that his symptoms have been constant. His shortness of breath is worse when lying flat and improved when sitting upright. He states that he saw a bag valver and his diuretics were changed, he does not know what exactly was changed but mentions that he was on torsemide and it was transitioned to furosemide. He states that since this change was made he has noticed a less urine output than expected as well as worsening shortness of breath. On review of systems, he denies any fevers, chills, headaches, dizziness, syncope, weakness, chest pain, palpitations, wheezing, cough, abdominal pain, nausea/vomiting, diarrhea, constipation, hematochezia, melena, dysuria, hematuria, myalgia, or any other symptoms. He presented to the Emergency Department for further evaluation. Upon presentation, his vital signs were stable. His laboratory studies were notable for a creatinine of 2.47 (baseline around 1.7-1.9) and an NT-Pro BNP of 8,602. EKG revealed a paced-rhythm. Chest x-ray revealed "mild CHF." In the Emergency Department, he was given furosemide. He was admitted to the General Internal Medicine service for further evaluation. Allergies No Known Allergies Allergy (Verified 10/24/21 07:23) Home medications list reviewed: Yes Home Medications: Tamsulosin [Flomax*] 0.4 mg PO DAILY cap 08/17/21 Apixaban [Eliquis] 2.5 mg PO BID 12/03/21 Cetirizine HCl [Zyrtec*] 5 mg PO DAILY 12/03/21 Clopidogrel Bisulfate [Plavix*] 75 mg PO DAILY 12/03/21 Colesevelam [Welchol*] 625 mg PO BIDWM 12/03/21 Gabapentin 600 mg PO BID 12/03/21 Pantoprazole [Protonix Tab*] 40 mg PO BID 12/03/21 Ramelteon 8 mg PO BEDTIME 12/03/21 carvediloL [Carvedilol] 6.25 mg PO BID 12/03/21 methocarbamoL [Methocarbamol] 500 mg PO BEDTIME PRN 12/03/21 Donepezil HCl [Aricept] 10 mg PO BID 12/13/21 Insulin -Regular Human [Novolin -R*] See Protocol SQ ACHS 12/13/21 Insulin Aspart [Insulin Aspart Flexpen] 20 unit SQ TIDWM 12/13/21 Levothyroxine Sodium 150 mcg PO DAILY 12/13/21 Ondansetron [Zofran (Odt)*] 4 mg PO Q8HP PRN 12/13/21 icosapent ethyL [Vascepa 1 gm Cap] 2 cap PO BID 12/13/21 Benzonatate [Tessalon Perle*] 100 mg PO TID PRN #30 cap 12/17/21 Furosemide [Lasix] 40 mg PO BID #60 tablet 12/17/21 Insulin Degludec [Tresiba] 10 unit SQ DAILY AFTER SUPPER #1 vial 12/17/21 Berhane [Berhane*] 1 pkt PO BID #60 powd.pack 12/17/21 Melatonin 5 mg PO BEDTIME PRN PRN #30 tablet 12/17/21 Smz./Tmp. [Bactrim Ds 800 MG/160 MG*] 1 tab PO BID 10 Days #20 tab 01/24/22 - Past Medical/Surgical History Diabetic: Yes -: Diabetes mellitus type 2 -: Hypertension -: Hyperlipidemia -: Aortic stenosis requiring percutaneous replacement, December 2015 -: 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 -: Urinary retention -: BPH -: Gout -: Hypothyroidism -: GERD -: Atrial fibrillation -: Thyroidectomy -: CABG x4 vessels -: 2 cardiac stents -: Aortic valve replacement percutaneously -: Cholecystectomy Psychosocial/ Personal History: Currently resides at assisted living facility - Family History Father -: Heart disease Brother -: Heart disease - Social History Smoking Status: Never smoker Alcohol use: No CD- Drugs: No Caffeine use: No Review of Systems General: Unremarkable Eyes: Unremarkable ENT: Unremarkable Respiratory: Cough, Dry, Shortness of Breath, SOB with Excertion Cardiovascular: Orthopnea, Paroxysmal Noc. Dyspnea Gastrointestinal: Unremarkable Genitourinary: Unremarkable Musculoskeletal: Unremarkable Integumentary: Unremarkable Neurological: Unremarkable Physical Examination - Vital Signs Temperature: 97.1 F Blood Pressure: 117/78 Pulse: 82 Respirations: 20 Pulse Ox (%): 100 (3 L NC (home dose)) - Physical Exam General: Alert, In no apparent distress, Oriented x3 HEENT: Atraumatic, PERRLA, Mucous membr. moist/pink, EOMI, Sclerae nonicteric Neck: Supple, JVD not distended Respiratory: Crackles/rales Cardiovascular: No edema, Regular rate/rhythm, Normal S1 S2, No gallops, No rubs, No murmurs, Edema (2-3+ pitting) Gastrointestinal: Normal bowel sounds, Soft and benign, Non-distended, No te nderness, No rebound, No guarding Musculoskeletal: No clubbing Integumentary: No rashes Neurological: Normal speech, Sensation intact - Studies Laboratory Data (last 24 hrs) 02/08/22 11:40: WBC 4.7, Hgb 9.1 L, Hct 27.9 L, Plt Count 155 02/08/22 11:40: Sodium 133 L, Potassium 5.1, BUN 43 H, Creatinine 2.47 H, Glucose 169 H Assessment and Plan - Plan # Acute on Chronic Decompensated Congestive Heart Failure with (Unknown Ejection Fraction) - Consult Cardiology and spoke with Dr. Rojo - recommendations appreciated - Ordered transthoracic echocardiogram - NT-Pro BNP = 8,602 - Diuresis with IV furosemide for today - Hold home diuretics for now - Continue home carvedlilol - Daily weights - Strict I/O - Cardiac diet, 2 L fluid restriction, 2 g Na restriction # KDIGO Stage I Acute Kidney Injury on Chronic Kidney Disease Stage III # Recent ESBL UTI # Phimosis - following with outpatient Urology Suspect cardiorenal syndrome vs KORI from recent Bactrim? - Creatinine = 2.47 (baseline creatinine 1.7-1.9) - Urinalysis = pending - IV diuretics as mentioned above - Monitor creatinine and urine output - If worsening, obtain renal ultrasound - Renally dose medications # Coronary Artery Disease s/p PCI x 2 and CABG x4 # Aortic Stenosis s/p Replacement # Hypertension # Hyperlipidemia - Continue home clopidogrel, carvedilol, Vascepa - Not on PHILIP/ARB due to CKD3 # Chronic Atrial Fibrillation His [id number] = 6 (CHF=1, HTN=1, Age>75=2, DM=1, CAD=1), which warrants anticoagulation. 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 Discharge Plan: Home Plan to discharge in: 24 Hours - Advance Directives Does patient have a Living Will: No Does patient have a Durable POA for Healthcare: Yes - Code Status/Comfort Care Code Status Assessed: Yes Code Status: Full Code
[2022-02-08] MEDS ORDERED: HOME MED 1 EA UNK (Ramelteon [Ramelteon] 8 MG Tablet) PO SCH (21:00)
[2022-02-08] MEDS: FUROSEMIDE 40 MG/4 ML VIAL IV SCH (22:21)
[2022-02-08] MEDS: GABAPENTIN 300 MG CAP PO SCH (23:41)
[2022-02-08] MEDS: carvediloL 6.25 MG TAB PO SCH (23:41)
[2022-02-09] MEDS: MELATONIN 5 MG TABLET PO PRN ×2 (00:19→20:50)
[2022-02-09 02:12] LABS: Urine Bilirubin Negative (Negative); Urine Blood Negative (Negative); Urine Clarity Clear (Clear); Urine Color Yellow (Yellow); Urine Glucose 1+ (Negative); Urine Protein Negative (Negative); Urine Urobilinogen 0.2 mg/dL (0.2-1.0)
[2022-02-09 02:50] LABS: Urine Bacteria <20 /HPF (<20); Urine RBC <5 /HPF (None Seen)
[2022-02-09 03:36] LABS: Absolute Lymphocytes (CBC) 1.6 K/uL (0.7-4.9); Hematocrit 27.4 % (39.6-49.0); Lymphocytes % 32.2 % (15.3-44.8); MCV 86.6 fL (80-100); MPV 7.3 fL (7.6-11.3); RBC Red Blood Cell Count 3.17 M/uL (4.33-5.43)
[2022-02-09 03:56] LABS: Albumin 3.1 g/dL (3.4-5.0); Bilirubin Total 0.3 mg/dL (0.2-1.0); Magnesium 2.8 mg/dL (1.8-2.4); Phosphorus 5.2 mg/dL (2.5-4.9); Potassium 4.6 mmol/L (3.5-5.1); Protein, Total 6.5 g/dL (6.4-8.2)
[2022-02-09 04:08] LABS: Blood Morphology Comment NOT SEEN (NOT SEEN); Platelet Estimate ADEQ; White Blood Cell Scan OK (OK)
[2022-02-09] MEDS ORDERED: INSULN SQ SCH (08:00)
[2022-02-09] MEDS ORDERED: INSULIN ASPART 100 UNIT/ML SQ SCH (08:00)
[2022-02-09] MEDS: COLESEVELAM 625 MG PO SCH ×2 (08:00→17:00)
[2022-02-09] MEDS: GABAPENTIN 300 MG CAP PO SCH ×2 (08:28→20:50)
[2022-02-09] MEDS: carvediloL 6.25 MG TAB PO SCH ×2 (08:29→16:48)
[2022-02-09] MEDS: FUROSEMIDE 40 MG/4 ML VIAL IV SCH ×2 (08:30→16:48)
[2022-02-09] MEDS ORDERED: LEVOTHYROXINE SOD 0.075 MG TAB PO SCH (09:00)
--- NOTE | 2022-02-09 09:06 | PN ---
Date of Progress Note: 02/09/2022 Subjective: Mr. Mercado was admitted on 02/08/2022 with acute on chronic diastolic congestive heart fa ilure, has known severe pulmonary hypertension, known aortic valve replacement with a normal aortic v alve function by echo in August 2021. Mr. Mercado has many multiple other problems including Alzheim er's, CAD status post CABG, paroxysmal atrial fibrillation on Eliquis, status post pacemaker. He als o has diabetes, hypertension, dyslipidemia, hypothyroidism, gastroesophageal reflux, and benign prost atic hypertrophy. Diuresed well overnight. He is feeling better. His vital signs are stable. He i s afebrile. Creatinine, however, is slightly higher at 2.52. We need to be careful with diuresis. I think we need to increase his Coreg. Consider Nephrology consultation. Avoid PHILIP inhibitors or AR Bs. We will continue to follow him as needed. CIARA/JOLIE Voice ID: [id number] Report ID: [id number]
--- NOTE | 2022-02-09 09:20 | CON ---
Date of Consultation: 02/08/2022 Reason For Consultation: Congestive heart failure. History Of Present Illness: Mr. Mercado is 86, has a history of Alzheimer's; status post aortic valve replacement; atrial fibrillation; coronary artery disease, status post CABG. He has a history of pac emaker. He has a history of diabetes, hypertension, dyslipidemia, hypothyroidism, benign prostatic h ypertrophy, and gastroesophageal reflux. He comes in with PND, orthopnea, pedal edema. No chest dung n. No nausea, vomiting, diaphoresis. Denies any palpitation or syncope. Denies any fever or chills . Past Medical History: As stated above. Allergies: NONE. Review of Systems: Negative. Social History: Negative. Family History: Noncontributory. Medications: Include Eliquis, Plavix, Welchol, Aricept, Neurontin, insulin, Lasix, Berhane, Synthroid, Flomax, and carvedilol. Physical Examination: Vital Signs: Stable. He was in a paced rhythm. Afebrile. HEENT: Negative. Neck: Supple. No bruit, lymphadenopathy, JVD, or thyromegaly. Chest: Reveals rales in both bases. Cardiac: Revealed a paced rhythm. No murmurs, gallops, or rubs. Abdomen: Benign. Extremities: Revealed 1+ edema to the knees. Skin: Dry and intact. Vascular: Pulses were present distally bilaterally. Diagnostic Data: Chest x-ray showed mild congestive heart failure. BNP was 8602. Hemoglobin is 9.1 . Creatinine is 2.47. Echocardiogram, which was done in August 2021, showed normally functioning prosthetic aortic valve, diastolic congestive heart failure with severe pulmonary hypertension. Impression And Plan: 1.Acute on chronic diastolic congestive heart failure. 2.Severe pulmonary hypertension. 3.Status post aortic valve replacement. 4.Renal insufficiency, stage 4. 5.Anemia. 6.Paroxysmal atrial fibrillation. 7.Dementia. 8.Dyslipidemia. 9.Neuropathy. 10.Diabetes. 11.Benign prostatic hypertrophy. 12.Hypothyroidism. 13.Coronary artery disease, status post coronary artery bypass grafting. I agree with Mr. Mercado's present regimen. I think we need to increase his carvedilol. I think we sh ould increase his Lasix. Get another echocardiogram. We will continue to follow. CIARA/JOLIE Voice ID: [id number] Report ID: [id number]
[2022-02-09] MEDS: CLOPIDOGREL 75 MG TABLET PO SCH (12:34)
[2022-02-09] MEDS: DONEPEZIL HCL 5 MG TAB PO SCH ×3 (12:35→21:00)
[2022-02-09] MEDS: TAMSULOSIN 0.4 MG SR CAP PO SCH (12:35)
[2022-02-09] MEDS: APIXABAN 2.5 MG TABLET PO SCH ×3 (12:35→21:00)
[2022-02-09] MEDS: PANTOPRAZOLE 40MG TABLET PO SCH ×3 (12:35→21:00)
[2022-02-09] MEDS ORDERED: HOME MED 1 EA UNK (Insulin Degludec [Tresiba] 100 UNIT/ML Vial) SQ SCH (17:30)
--- NOTE | 2022-02-09 18:54 | P.PN ---
Subjective Date of Service: 02/09/22 Chief Complaint: Acute CHF Exacerbation Subjective: Improving No acute events overnight. He reports that his shortness of breath is improving. He is about -2 L since admission. Review of Systems 10-point ROS is otherwise unremarkable Respiratory: Cough, SOB with Excertion Physical Examination - Vital Signs Temperature: 97.3 F Blood Pressure: 108/74 Pulse: 71 Respirations: 18 Pulse Ox (%): 100 - Studies Laboratory Data (last 24 hrs) 02/09/22 03:10: Sodium 133 L, Potassium 4.6, BUN 44 H, Creatinine 2.52 H, Glucose 123 H, Phosphorus 5.2 H, Magnesium 2.8 H D, Total Bilirubin 0.3, AST 13 L, ALT 19, Alkaline Phosphatase 82 02/09/22 03:10: WBC 4.9, Hgb 9.0 L, Hct 27.4 L, Plt Count 160 Assessment And Plan - Plan - Physical Exam General: Alert, In no apparent distress, Oriented x3 HEENT: Atraumatic, PERRLA, Mucous membr. moist/pink, EOMI, Sclerae nonicteric Neck: Supple, JVD not distended Respiratory: Crackles/rales Cardiovascular: No edema, Regular rate/rhythm, Normal S1 S2, No gallops, No rubs, No murmurs, Edema (2+ pitting) Gastrointestinal: Normal bowel sounds, Soft and benign, Non-distended, No tenderness, No rebound, No guarding Musculoskeletal: No clubbing Integumentary: No rashes Neurological: Normal speech, Sensation intact # Acute on Chronic Decompensated Congestive Heart Failure with (Unknown Ejection Fraction) - Consult Cardiology and spoke with Dr. Rojo - recommendations appreciated - Ordered transthoracic echocardiogram - NT-Pro BNP = 8,602 - Diuresis with IV furosemide for today - Hold home diuretics for now - Continue home carvedlilol - Daily weights - Strict I/O = -2 L since admission - Cardiac diet, 1.5 L fluid restriction, 2 g Na restriction # KDIGO Stage I Acute Kidney Injury on Chronic Kidney Disease Stage III # Recent ESBL UTI # Phimosis - following with outpatient Urology Suspect cardiorenal syndrome vs KORI from recent Bactrim? - Creatinine = 2.47 -> 2.52 (baseline creatinine 1.7-1.9) - Urinalysis = 1+ glucose, positive yeast - IV diuretics as mentioned above - Monitor creatinine and urine output - If worsening, obtain renal ultrasound - Renally dose medications # Coronary Artery Disease s/p PCI x 2 and CABG x4 # Aortic Stenosis s/p Replacement # Hypertension # Hyperlipidemia - Continue home clopidogrel, carvedilol, Vascepa - Not on PHILIP/ARB due to CKD3 # Chronic Atrial Fibrillation His [id number] = 6 (CHF=1, HTN=1, Age>75=2, DM=1, CAD=1), which warrants anticoagulation. 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 Discharge Plan: Home Plan to discharge in: 24 Hours
[2022-02-09] MEDS: icosapent ethyL 1 GM CAP PO SCH (20:51)
[2022-02-10 03:24] LABS: Absolute Lymphocytes (CBC) 1.8 K/uL (0.7-4.9); Hematocrit 28.8 % (39.6-49.0); Lymphocytes % 33.3 % (15.3-44.8); MPV 7.1 fL (7.6-11.3); RBC Red Blood Cell Count 3.34 M/uL (4.33-5.43)
[2022-02-10 03:38] LABS: Bilirubin Total 0.4 mg/dL (0.2-1.0); Protein, Total 6.6 g/dL (6.4-8.2)
[2022-02-10 03:59] VITALS: BMI 27.8
[2022-02-10] MEDS: COLESEVELAM 625 MG PO SCH (08:00)
[2022-02-10 08:44] VITALS: O2SAT 93
[2022-02-10] MEDS ORDERED: LEVOTHYROXINE SOD 0.075 MG TAB PO SCH (09:00)
[2022-02-10] MEDS: FUROSEMIDE 40 MG/4 ML VIAL IV SCH (10:30)
[2022-02-10] MEDS: TAMSULOSIN 0.4 MG SR CAP PO SCH (10:32)
[2022-02-10] MEDS: APIXABAN 2.5 MG TABLET PO SCH (10:32)
[2022-02-10] MEDS: carvediloL 6.25 MG TAB PO SCH (10:32)
[2022-02-10] MEDS: PANTOPRAZOLE 40MG TABLET PO SCH (10:32)
[2022-02-10] MEDS: GABAPENTIN 300 MG CAP PO SCH (10:33)
[2022-02-10] MEDS: DONEPEZIL HCL 5 MG TAB PO SCH (10:33)
[2022-02-10] MEDS: CLOPIDOGREL 75 MG TABLET PO SCH (10:33)
[2022-02-10] MEDS: icosapent ethyL 1 GM CAP PO SCH (10:38)
--- NOTE | 2022-02-10 10:57 | PN ---
Date of Progress Note: 02/10/2022 Mr. Mercado was admitted with acute on chronic diastolic congestive heart failure, severe pulmonary hyp ertension, normal ejection fraction, normal aortic valve function prosthetic as of August 2001. He has Alzheimer. He had CABG, paroxysmal atrial fibrillation, on Eliquis. He has a pacemaker, diabet es, hypertension, dyslipidemia, hypothyroidism, benign prostatic hypertrophy, and gastroesophageal re flux. He has diuresed fairly well; however, his creatinine keeps increasing. Coreg needs to be incr eased. Nephrology consultation should be obtained. PHILIP inhibitors and ARB should be withheld and av oided. We would hold his Lasix for now, increase his carvedilol to 12.5 mg b.i.d. and continue to ob serve and watch. He has an echocardiogram pending for tomorrow, we will see what that shows. I will discuss the case further with Dr. Klein. CIARA/JOLIE Voice ID: [id number] Report ID: [id number]
[2022-02-10 11:26] VITALS: BP 133/65; TEMP 97.9
--- NOTE | 2022-02-10 11:33 | RAD REPORT ---
EXAM DESCRIPTION: Shital Single View02/10/2022 11:00 am CLINICAL HISTORY: Chest pain COMPARISON: February 08, 2022 FINDINGS: No significant change in mild bilateral pulmonary opacities. Heart remains enlarged. Pacemaker leads in place IMPRESSION: Mild CHF
--- NOTE | 2022-02-10 12:28 | P.CNS ---
Date of Consult: 02/10/22 Reason for Consult: KORI/ CKD Requesting Physician: Chele Klein Chief Complaint: Acute CHF Exacerbation History of Present Illness: Mr. Gilmer Mercado is a pleasant 86 year old male who has a past medical history of chronic congestive heart failure (unknown ejection fraction), chronic kidney disease stage III, type II diabetes mellitus, hypertension, and phimosis who presents to the [facility] Emergency Department for shortness of breath. He reports that, over the last day, he has been experiencing progressively worsening shortness of breath. He states that his symptoms have been constant. His shortness of breath is worse when lying flat and improved when sitting upright. He states that he saw a lead mechanical engineer and his diuretics were changed, he does not know what exactly was changed but mentions that he was on torsemide and it was transitioned to furosemide. He states that since this change was made he has noticed a less urine output than expected as well as worsening shortness of breath. On review of systems, he denies any fevers, chills, headaches, dizziness, syncope, weakness, chest pain, palpitations, wheezing, cough, abdominal pain, nausea/vomiting, diarrhea, constipation, hematochezia, melena, dysuria, hematuria, myalgia, or any other symptoms. He presented to the Emergency Department for further evaluation. Upon presentation, his vital signs were stable. His laboratory studies were notable for a creatinine of 2.47 (baseline around 1.7-1.9) and an NT-Pro BNP of 8,602. EKG revealed a paced-rhythm. Chest x-ray revealed "mild CHF." In the Emergency Department, he was given furosemide. He was admitted to the General Internal Medicine service for further evaluation. 13:17 This 86 yrs old Male presents to ER via EMS with complaints of Shortness Of jl9 Breath. 13:17 The patient has shortness of breath during heavy activity. Duration: The symptoms are jl9 continuous. The patient's shortness of breath is aggravated by light activity. Allergies No Known Allergies Allergy (Verified 10/24/21 07:23) Home medications list reviewed: Yes Home Medications: Tamsulosin [Flomax*] 0.4 mg PO DAILY cap 08/17/21 Apixaban [Eliquis] 2.5 mg PO BID 12/03/21 Cetirizine HCl [Zyrtec*] 5 mg PO DAILY 12/03/21 Clopidogrel Bisulfate [Plavix*] 75 mg PO DAILY 12/03/21 Colesevelam [Welchol*] 625 mg PO BIDWM 12/03/21 Gabapentin 600 mg PO BID 12/03/21 Pantoprazole [Protonix Tab*] 40 mg PO BID 12/03/21 Ramelteon 8 mg PO BEDTIME 12/03/21 carvediloL [Carvedilol] 6.25 mg PO BID 12/03/21 methocarbamoL [Methocarbamol] 500 mg PO BEDTIME PRN 12/03/21 Donepezil HCl [Aricept] 10 mg PO BID 12/13/21 Insulin -Regular Human [Novolin -R*] See Protocol SQ ACHS 12/13/21 Insulin Aspart [Insulin Aspart Flexpen] 20 unit SQ TIDWM 12/13/21 Levothyroxine Sodium 150 mcg PO DAILY 12/13/21 Ondansetron [Zofran (Odt)*] 4 mg PO Q8HP PRN 12/13/21 icosapent ethyL [Vascepa 1 gm Cap] 2 cap PO BID 12/13/21 Benzonatate [Tessalon Perle*] 100 mg PO TID PRN #30 cap 12/17/21 Furosemide [Lasix] 40 mg PO BID #60 tablet 12/17/21 Insulin Degludec [Tresiba] 10 unit SQ DAILY AFTER SUPPER #1 vial 12/17/21 Berhane [Berhane*] 1 pkt PO BID #60 powd.pack 12/17/21 Melatonin 5 mg PO BEDTIME PRN PRN #30 tablet 12/17/21 Smz./Tmp. [Bactrim Ds 800 MG/160 MG*] 1 tab PO BID 10 Days #20 tab 01/24/22 - Past Medical/Surgical History Diabetic: Yes -: Diabetes mellitus type 2 -: Hypertension -: Diastolic CHF with Pulmonary HTN & Severe TR -: Aortic stenosis requiring percutaneous replacement, December 2015 -: 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 -: CKD III (Dr. Peraza) -: BPH with LUTS/ Hx urinary retention -: Gout -: Hypothyroidism -: GERD -: Atrial fibrillation -: HLD -: Thyroidectomy -: CABG x4 vessels -: 2 cardiac stents -: Aortic valve replacement percutaneously, December 2015 -: Cholecystectomy -: Phimosiectomy Psychosocial/ Personal History: Currently resides at assisted living facility - Family History Father Medical History: Heart disease Brother Medical History: Heart disease - Social History Smoking Status: Unknown if ever smoked Alcohol use: No CD- Drugs: No Caffeine use: Yes Place of Residence: Home Review of Systems 10-point ROS is otherwise unremarkable General: Weakness Physical Examination Temp Pulse Resp BP Pulse Ox 97.9 F 69 14 133/65 100 02/10/22 11:25 02/10/22 11:25 02/10/22 11:25 02/10/22 11:25 02/10/22 11:25 General: In no apparent distress, Oriented x3, Cooperative HEENT: Atraumatic Neck: Supple Respiratory: Clear to auscultation bilaterally Cardiovascular: No edema, Regular rate/rhythm Gastrointestinal: Soft and benign, Non-distended Musculoskeletal: No clubbing, No contractures Integumentary: No rashes, No cyanosis Neurological: Normal speech Blood work reviewed in the chart. Imagings Data: EXAM DESCRIPTION: Shital Single View02/10/2022 11:00 am CLINICAL HISTORY: Chest pain COMPARISON: February 08, 2022 FINDINGS: No significant change in mild bilateral pulmonary opacities. Heart remains enlarged. Pacemaker leads in place IMPRESSION: Mild CHF Conclusions/Impression: KORI in the setting of CRS vs Progressive CKD (Unclear if he was on Bactrim as an outpt) CKD IIIb with Hx proteinuria -No NSAIDs -Agree with reducing diuretics due to possible overdiuresis; the patient is preload dependent. 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 Kelin Thank you kindly for the referral.
--- NOTE | 2022-02-10 14:42 | P.DS ---
Admission Date: 02/09/22 Discharge Date: 02/10/22 Disposition: ROUTINE DISCHARGE Discharge Condition: GOOD Reason for Admission: Acute CHF Exacerbation Consultations: 1. Cardiology 2. Nephrology Hospital Course: DIAGNOSES: # Acute on Chronic Decompensated Diastolic Congestive Heart Failure with Preserved Ejection Fraction # KDIGO Stage I Acute Kidney Injury on Chronic Kidney Disease Stage III # Chronic Respiratory Failure secondary to Severe Pulmonary Hypertension on 3 L Home Oxygen # Severe Tricuspid Regurgitation # S/P Aortic Valve Replacement # Recent ESBL UTI # Phimosis - following with outpatient Urology # Coronary Artery Disease s/p PCI x 2 and CABG x4 # Aortic Stenosis s/p Replacement # Hypertension # Hyperlipidemia # Chronic Atrial Fibrillation # Type II Diabetes Mellitus complicated by Neuropathy # Gastroesophageal Reflux Disease # Hypothyroidism # Benign Prostatic Hyperplasia # Dementia HOSPITAL COURSE: Mr. Gilmer Mercado is a pleasant 86 year old male who has a past medical history of chronic respiratory failure secondary to severe pulmonary hypertension on home oxygen (3 L), chronic congestive heart failure with preserved ejection fraction, chronic kidney disease stage III, type II diabetes mellitus, hypertension, and phimosis who was admitted to the [facility] on 02/08/2022 for shortness of breath. Upon further evaluation, he was found to have acute on chronic decompensated congestive heart failure as well as an acute kidney injury. He was admitted to the Medicine service. Cardiology was consulted and he was evaluated by Dr. Rojo. He was diuresed with IV furosemide and had significant improvement in his respiratory status down to his home oxygen requirements. While diuresing for his congestive heart failure, his creatinine did not improve as with what would be expected with cardiorenal syndrome. Nephrology was consulted and he was evaluated by Dr. Peraza. He felt that his elevated creatinine may be multifactorial, with possible etiologies including progression of chronic kidney disease as well as Bactriminduced acute kidney injury. Today, Mr. Mercado's symptoms have improved significantly and he stated that he would really like to be discharged home so that he can attend his urology appointment at [facility] tomorrow morning. I discussed this with both Drs. Rojo and Stu. They have both cleared him to be discharged with torsemide 20 mg BID and to have a close follow-up in their clinics. On 02/10/2022, he was seen on rounds and deemed medically stable for discharge. He was discharged with instructions to schedule follow-up appointments with his PCP in 3-5 days and with Nephrology (Dr. Peraza) in [address] Rojo was able to schedule him for an appointment on 02/13/2022 at 13:00, which he has agreed to attend. He was provided prescriptions for torsemide. He was given the opportunity to ask questions and reported no further questions. Furthermore, all questions were answered to the best of my ability. Today, I personally spent 25 minutes on his case, of which greater than 50% of the time was spent in patient education, counseling, and coordination of care as described above. - Physical Exam General: Alert, In no apparent distress, Oriented x3 HEENT: Atraumatic, PERRLA, Mucous membr. moist/pink, EOMI, Sclerae nonicteric Neck: Supple, JVD not distended Respiratory: Crackles/rales Cardiovascular: No edema, Regular rate/rhythm, Normal S1 S2, No gallops, No rubs, No murmurs, Edema (trace-1+ pitting) Gastrointestinal: Normal bowel sounds, Soft and benign, Non-distended, No te nderness, No rebound, No guarding Musculoskeletal: No clubbing Integumentary: No rashes Neurological: Normal speech, Sensation intact Vital Signs/Physical Exam: Temp Pulse Resp BP Pulse Ox 97.9 F 69 14 133/65 100 02/10/22 11:25 02/10/22 11:25 02/10/22 11:25 02/10/22 11:25 02/10/22 11:25 Laboratory Data at Discharge: WBC 5.4 K/uL (4.3-10.9) 02/10/22 03:02 Hgb 9.6 g/dL (13.6-17.9) L 02/10/22 03:02 Hct 28.8 % (39.6-49.0) L 02/10/22 03:02 Plt Count 172 K/uL (152-406) 02/10/22 03:02 Sodium 135 mmol/L (136-145) L 02/10/22 03:02 Potassium 4.0 mmol/L (3.5-5.1) 02/10/22 03:02 BUN 46 mg/dL (7-18) H 02/10/22 03:02 Creatinine 2.59 mg/dL (0.55-1.3) H 02/10/22 03:02 Glucose 142 mg/dL (74-106) H 02/10/22 03:02 Phosphorus 5.2 mg/dL (2.5-4.9) H 02/09/22 03:10 Magnesium 2.8 mg/dL (1.8-2.4) H D 02/09/22 03:10 Total Bilirubin 0.4 mg/dL (0.2-1.0) 02/10/22 03:02 AST 12 U/L (15-37) L 02/10/22 03:02 ALT 19 U/L (12-78) 02/10/22 03:02 Alkaline Phosphatase 84 U/L (45-117) 02/10/22 03:02 Home Medications: Tamsulosin [Flomax*] 0.4 mg PO DAILY cap 08/17/21 Apixaban [Eliquis] 2.5 mg PO BID 12/03/21 Cetirizine HCl [Zyrtec*] 5 mg PO DAILY 12/03/21 Clopidogrel Bisulfate [Plavix*] 75 mg PO DAILY 12/03/21 Colesevelam [Welchol*] 625 mg PO BIDWM 12/03/21 Gabapentin 600 mg PO BID 12/03/21 Pantoprazole [Protonix Tab*] 40 mg PO BID 12/03/21 Ramelteon 8 mg PO BEDTIME 12/03/21 carvediloL [Carvedilol] 6.25 mg PO BID 12/03/21 Donepezil HCl [Aricept] 10 mg PO BID 12/13/21 Insulin Aspart [Insulin Aspart Flexpen] 20 unit SQ TIDWM 12/13/21 Levothyroxine Sodium 150 mcg PO DAILY 12/13/21 icosapent ethyL [Vascepa 1 gm Cap] 2 cap PO BID 12/13/21 Insulin Degludec [Tresiba] 10 unit SQ DAILY AFTER SUPPER #1 vial 12/17/21 Berhane [Berhane*] 1 pkt PO BID #60 powd.pack 12/17/21 Torsemide [Demadex*] 20 mg PO BID #60 tab 02/10/22 New Medications: Torsemide [Demadex*] 20 mg PO BID #60 tab Physician Discharge Instructions: 1. Please keep your Urology appointment tomorrow 2. Please schedule a follow-up with your PCP in 3-5 days 3. I have made an appointment for you with Cardiology (Dr. Rojo) on 02/13/2022 at 01:00 PM. Please keep and attend this appointment. 4. Please schedule a follow-up with Nephrology (Dr. Peraza) in about 1 week Diet: Renal Activity: Ad raymundo Followup: Jung Peraza, [ACTIVE - CAN ADMIT] - (if Doctor hasn't called you, call him for an apt for 1 week) Ori Rojo MD [ACTIVE - CAN ADMIT] - (You have an apointment scheduled for the Friday at 1pm.) Time spent managing pt's care (in minutes): 25
--- NOTE | 2022-02-11 13:52 | EKG ---
Test Date: 2022-02-08 Test Time: 11:30:50 Appointment Scheduler: CIARRA MEASUREMENT RESULTS: Intervals: Rate: 72 [place]: 162 QRSD: 188 QT: 496 QTc: 543 [place]: P: 74 [place]: 162 QRS: -90 T: 103 INTERPRETIVE STATEMENTS: AV dual-paced rhythm Abnormal ECG Compared to ECG 01/21/2022 02:10:31 No significant changes Electronically Signed On 02-11-22 13:47:49 CDT by Darrick Cortes
== END 2022-02-10 15:20 | disposition home or self-care (01) | DRG 291 ==
LOC: ER 10:54 → ERHOLD 14:44 → 4TH 20:25 → OBSVTOIN 02-09 10:44
PROVIDERS: ADMIT Internal Medicine; ATTEND Internal Medicine
DX: I13.0 Hypertensive heart and chronic kidney disease with heart failure and stage 1 through stage 4 chronic kidney disease, or unspecified chronic kidney disease (principal); I50.33 Acute on chronic diastolic (congestive) heart failure; N17.9 Acute kidney failure, unspecified; J96.10 Chronic respiratory failure, unspecified whether with hypoxia or hypercapnia; I48.20 Chronic atrial fibrillation, unspecified; N18.30 Chronic kidney disease, stage 3 unspecified; E11.22 Type 2 diabetes mellitus with diabetic chronic kidney disease; I27.20 Pulmonary hypertension, unspecified; I07.1 Rheumatic tricuspid insufficiency; N47.1 Phimosis; I25.10 Atherosclerotic heart disease of native coronary artery without angina pectoris; E78.5 Hyperlipidemia, unspecified; E11.40 Type 2 diabetes mellitus with diabetic neuropathy, unspecified; K21.9 Gastro-esophageal reflux disease without esophagitis; E03.9 Hypothyroidism, unspecified; N40.0 Benign prostatic hyperplasia without lower urinary tract symptoms; F03.90 Unspecified dementia, unspecified severity, without behavioral disturbance, psychotic disturbance, mood disturbance, and anxiety; M10.9 Gout, unspecified; Z95.1 Presence of aortocoronary bypass graft; Z95.5 Presence of coronary angioplasty implant and graft; Z95.2 Presence of prosthetic heart valve; Z99.81 Dependence on supplemental oxygen; Z20.822 Contact with and (suspected) exposure to COVID-19
CPT/HCPCS: 36415; 71045; 80048; 80053; 81001; 82947; 83735; 83880; 84100; 84484; 85025; 87070; 87075; 87205; 87811; 93005; 96374; 97116; 97161; 97530; 99285; G0378; J1940

== ENCOUNTER 2022-03-23 11:24 | Inpatient (IN) | payer OTHER, MEDICARE ==
--- OUTSIDE RECORDS SUMMARY | 2022-03-23 11:43 | XMS REPORT | Continuity of Care Document ---
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 QD Take 1 Metho di (DEMADEX) -14 tablet (20 st 20 MG 00:00: 00:00 mg total) Hospit a tablet 00 :00 by mouth l daily. febuxostat 2020-07 No 40mg QD Take 40 mg Methodi [...] :00 l hydrocodone 2020-07- No Take by thzafar /acetaminop 2-28 12-[address] hen (NORCO 14:28: 00:00 Hospit a ORAL) 54 :00 l hydrocodone 2020-07- No Take by Me thodi /acetaminop 2-28 12-[address] hen (NORCO 14:28: 00:00 Hospit a ORAL) 54 :00 l hydrocodone 2020-07- No Take by Me thodi /acetaminop 2-28 12-[address] hen (NORCO 14:28: 00:00 Hospit a ORAL) 54 :00 l carvediloL 2020-07 No 6.25mg Q.5D Take 6.25 Methodi (COREG) 2-15 12-[address] 6.25 MG 13:57: 00:00 mouth 2 Hospit a tablet 42 :00 (two) l times a day with meals. carvediloL 2020-07 No 6.25mg Q.5D Take 6.25 Method[facility] (COREG) 2-15 12-[address] 6.25 MG 13:57: 00:00 mouth 2 Hospit a tablet 42 :00 (two) l times a day with meals. carvediloL 2020-07 No 6.25mg Q.5D Take 6.25 [facility] (COREG) [...] nightly. Hospita tablet 17 :00 l donepeziL 2020-07- No 10mg QD Take 10 mg M ethodi (ARICEPT) 2-10 12-[address] 10 MG 10:16: 00:00 nightly. Hospita tablet 17 :00 l donepeziL 2020-07- No 10mg QD Take 10 mg M [...] BY MOUTH l TWICE A DAY. gabapentin 2020-07- No TAKE TWO Me thodi (NEURONTIN) 07-25 (2) st 300 mg 00:00: 00:00 CAPSULE(S) [facility] capsule 00 :00 BY MOUTH l TWICE A DAY. metOLazone 2020-07- No [id number] TAKE ONE Method[facility] (ZAROXOLYN) 07-14 9100 (1) TABLET s t 2.5 MG 00:00: 00:00 (2.5 MG Hospita tablet 00 :00 TOTAL) BY l MOUTH NEEDED (FOR A WEIGHT GAIN OF 3 TO 5 POUNDS). metOLazone 2020-07- No [id number] TAKE ONE [facility] (ZAROXOLYN) 07-14 9100 (1) TABLET s t 2.5 MG 00:00: 00:00 (2.5 MG Hospita tablet 00 :00 TOTAL) BY l MOUTH NEEDED (FOR A WEIGHT GAIN OF 3 TO 5 POUNDS). metOLazone 2020-07- No [id number] TAKE ONE [facility] (ZAROXOLYN) 07-14 9100 (1) TABLET s t 2.5 MG 00:00: 00:00 (2.5 MG Hospita tablet 00 :00 TOTAL) BY l MOUTH NEEDED (FOR A WEIGHT GAIN OF 3 TO 5 POUNDS). colesevelam 2020-07- No [id number] 625mg Q.5D Take 1 [facility] (WelChoL) 07-[address] 625 mg 00:00: 04:59 (625 mg Hospita tablet 00 :00 total) by l mouth 2 (two) times a day with meals. colesevelam 2020-07- No [id number] 625mg Q.5D Take 1 [facility] (WelChoL) 07-[address] 625 mg 00:00: 04:59 (625 mg Hospita tablet 00 :00 total) by l mouth 2 (two) times a day with meals. colesevelam 2020-07- No [id number] 625mg Q.5D Take 1 [facility] (WelChoL) 07-[address] 625 mg 00:00: 00:00 (625 [...] nightly. Hos ezekiel 20 :00 l ramelteon 2020-07- No 8mg QD Take 8 mg Me thodi (ROZEREM) 8 0-28 10-[address] mg tablet 14:51: 00:00 nightly. Hos ezekiel 20 :00 l ramelteon 2020-07- No 8mg QD Take 8 mg Me [...] by mouth l nightly. colesevelam 2020-07- No [id number] 625mg Q.5D Take 1 [facility] (WelChoL) 0 11-[address] 625 mg 00:00: 00:00 (625 mg Hospita tablet 00 :00 total) by l mouth 2 (two) times a day with meals. colesevelam 2020-07- No [id number] 625mg Q.5D Take 1 [facility] (WelChoL) 0 11-[address] 625 mg 00:00: 00:00 (625 mg Hospita tablet 00 :00 total) by l mouth 2 (two) times a day with meals. colesevelam 2020-07- No [id number] 625mg Q.5D Take 1 [facility] (WelChoL) 0- 11-[address] 625 mg 00:00: 00:00 (625 mg Hospita tablet 00 :00 total) by l mouth 2 (two) times a day with meals. metOLazone 2020- No [id number] 2.5mg Take 1 [facility] (ZAROXOLYN) 04-[address] 2.5 MG 00:00: 00:00 (2.5 mg Hospita tablet 00 :00 total) by l mouth as needed (for a weight gain of 3 to 5 pounds). metOLazone 2020- No [id number] 2.5mg Take 1 [facility] (ZAROXOLYN) 04-[address] 2.5 MG 00:00: 00:00 (2.5 mg Hospita tablet 00 :00 total) by l mouth as needed (for a weight gain of 3 to 5 pounds). metOLazone 2020- No [id number] 2.5mg Take 1 [facility] (ZAROXOLYN) 04-[address] 2.5 MG 00:00: 00:00 (2.5 mg Hospita tablet 00 :00 total) by l mouth as needed (for a weight gain of 3 to 5 pounds). amIODarone Yes TAKE ONE Me thodi (PACERONE) 03-29 () st 200 MG 00:00: TABLET(S) Hospit a tablet 00 BY MOUTH l ONCE A DAY. amIODarone Yes TAKE ONE Me thodi (PACERONE) 03-29 () st 200 MG 00:00: TABLET(S) Hospit a tablet 00 BY MOUTH l ONCE A DAY. amIODarone Yes TAKE ONE Me thodi (PACERONE) 03-29 () st 200 MG 00:00: TABLET(S) Hospit a tablet 00 BY MOUTH l ONCE A DAY. cephalexin 2020- No 250mg QD Take 250 M ethodi (KEFLEX) 03-28-[address] 250 MG 08:42: 00:00 mouth Hospita capsule 53 :00 every l evening. cephalexin 2020- No 250mg QD Take 250 M ethodi (KEFLEX) 03-28 09-[address] 250 MG 08:42: 00:00 mouth Hospita capsule 53 :00 every l evening. cephalexin 2020- No 250mg QD Take 250 M ethodi (KEFLEX) 03-28-[address] 250 MG 08:42: 00:00 [...] :00 taking l anymore fluticasone 2020- No [id number] 100ug QD 2 sprays [facility] propionate 03-28 ([address] (FLONASE) 00:00: 00:00 total) by Ho spita 50 00 :00 Each Nare l mcg/actuati route on nasal daily. spray fluticasone 2020- No [id number] 100ug QD 2 sprays [facility] propionate 03-28 ([address] (FLONASE) 00:00: 00:00 total) by Ho spita 50 00 :00 Each Nare l mcg/actuati route on nasal daily. spray fluticasone 2020- No [id number] 100ug QD 2 sprays [facility] propionate 03-28 ([address] (FLONASE) 00:00: 00:00 total) by Ho spita 50 00 :00 Each Nare l mcg/actuati route on nasal daily. spray cholestyram 2020- No [id number] 1{packe QD Take 1 Methodi ine 03-28 t} packet by st (Qlikaran) 00:00: 00:00 mouth Hospi ta 4 gram 00 :00 daily with l packet breakfast. cholestyram 2020- No [id number] 1{packe QD Take 1 Methodi ine 03-28 t} packet by st (Qlikaran) 00:00: 00:00 mouth Hospi ta 4 gram 00 :00 daily with l packet breakfast. cholestyram 2020- No [id number] 1{packe QD Take 1 Methodi ine 03-28 t} packet by st (Qlikaran) 00:00: 00:00 mouth Hospi ta 4 gram [...] mouth st MG tablet 10:58: 00:[facility] traZODone 2020- No TAKE ONE Me thodi (DESYREL) 03-04 (1) st 50 MG 00:00: 00:00 TABLET(S) Hospit a tablet 00 :00 BY MOUTH l ONCE A DAY IN THE EVENING. traZODone 2020- No TAKE ONE Me thodi (DESYREL) 03-04 (1) st 50 MG 00:00: 00:00 TABLET(S) Hospit a tablet 00 :00 BY MOUTH l ONCE A DAY IN THE EVENING. traZODone 2020- No TAKE ONE Me thodi (DESYREL) 03-04 (1) st 50 MG 00:00: 00:00 TABLET(S) Hospit a tablet 00 :00 BY MOUTH l ONCE A DAY IN THE EVENING. dicyclomine 2020- No 20mg Q12H Take 20 mg [facility] (BENTYL) 20 8-02 03- by mouth st mg tablet 13:56: 00:00 every 12 Hos ezekiel 15 :00 (twelve) l hours. dicyclomine 2020- No 20mg Q12H Take 20 mg [facility] (BENTYL) 20 8-02 03- by mouth st mg tablet 13:56: 00:00 [...] MOUTH l tablet TWICE A DAY. pantoprazol 2021- No TAKE ONE M ethodi e 02-20 (1) st (PROTONIX) 00:00: 00:00 TABLET(S) H [...] Take 2 mg M ethodi (BUMEX) 2 01-29- by mouth st MG tablet 10:48: 00:00 daily. Hospi ta 28 :00 l BUMETanide 2020- No 2mg QD Take 2 mg M ethodi (BUMEX) 2 7-26 07-[address] MG tablet 10:48: 00:00 daily. Hospi ta 28 :00 l metOLazone 2020- No 2.5mg Take 1 Met hodi (ZAROXOLYN) 01-[address] 2.5 MG 00:00: 04:59 (2.5 mg Hospita tablet 00 :00 total) by l mouth once for 1 dose. metOLazone No 2.5mg Take 1 Met hodi (ZAROXOLYN) 01-[address] 2.5 MG 00:00: 04:59 (2.5 mg Hospita tablet 00 :00 total) by l mouth once for 1 dose. Eliquis 2.5 2021- No TAKE ONE [facility] mg tablet 01-02 (1) st 00:00: 00:00 TABLET(S) Hospita 00 :00 BY MOUTH l TWICE A DAY. Eliquis 2.5 2021- No TAKE ONE [facility] mg tablet 01-02 (1) st 00:00: 00:00 TABLET(S) Hospita 00 :00 BY MOUTH l TWICE A DAY. Eliquis 2.5 2021- No TAKE ONE [facility] mg tablet 01-02 () st 00:00: 00:00 TABLET(S) Hospita 00 :00 BY MOUTH l TWICE A DAY. cephalexin Yes 250mg Q.25D Take 250 U [...] Do not crush, chew, or split. levothyroxi 0 Yes Take by UT ne 6-28 mouth [...] (one) time tablet 50 each day. tamsulosin 1-0 Yes QD Take by UT (Flomax) 6-28 [...] MG 16:47: every tablet 50 night. torsemide Yes 20mg QD Take 20 mg [...] Take 10 mg U T (ZyrTEC) 10 - by mouth 1 He alth MG tablet 16:47: (one) time 50 each day. finasteride Yes TAKE 1 UT (Proscar) 5 6-28 TABLET Health MG tablet 16:47: DAILY 02 finasteride Yes TAKE 1 UT (Proscar) 5 6-28 TABLET Health MG tablet 16:47: DAILY 02 finasteride Yes TAKE 1 UT (Proscar) 5 6-28 TABLET Health MG tablet 16:47: DAILY 02 pantoprazol 2020- No TAKE ONE Methodi e 12-28 () st (PROTONIX) 00:00: 00:00 TABLET(S) H ospita 40 MG EC 00 :00 BY MOUTH l tablet TWICE A DAY. pantoprazol 2020- No TAKE ONE Methodi e 12-28 () st (PROTONIX) 00:00: 00:00 TABLET(S) H ospita 40 MG EC 00 :00 BY MOUTH l tablet TWICE A DAY. finasteride Yes TAKE 1 UT (Proscar) 5 -22 TABLET Health MG tablet 14:50: DAILY 43 levothyroxi 2020- No TAKE ONE M ethodi ne 12-20 () st (SYNTHROID) 00:00: 00:00 TABLET(S) Hospita 125 [...] :00 BY MOUTH l EVERY NIGHT. gabapentin 2020- No TAKE ONE M ethodi (NEURONTIN) 11-29 (1) st 300 mg 00:00: 00:00 CAPSULE(S) [facility] capsule 00 :00 BY MOUTH l EVERY NIGHT. gabapentin 2020- No TAKE ONE M ethodi (NEURONTIN) -05-25 (1) st 300 mg 00:00: 00:00 CAPSULE(S) [facility] capsule 00 :00 BY MOUTH l EVERY NIGHT. carvedilol Yes 6.25mg Q.5D Take 6.25 UT [...] :00 BY MOUTH l ONCE A DAY. torsemide 2020-0 2022- No 40mg Q.5D Take 2 Metho di (DEMADEX) 10-27 09-[address] 20 MG 00:00: 04:59 (40 mg Hospita tablet 00 :00 total) by l mouth 2 (two) times a day for 30 days. Fiasp 0 Yes 20U [id number] 20 Units 3 [facility] FlexTouch 4-15 [id number] (three) s t U-100 00:00: 3D times a Hospita Insulin 100 00 day before l unit/mL (3 meals. mL) insulin pen Fiasp 2020-0 Yes 20U Q.[id number] 20 Units 3 [facility] FlexTouch 4-15 [id number] (three) s t U-100 00:00: 3D times a Hospita Insulin 100 00 day before l unit/mL (3 meals. mL) insulin pen Fiasp 0 Yes 20U Q.[id number] Inject 20 M ethodi FlexTouch 4-[id number] U-100 00:00: 3D under the Hospita Insulin 100 00 skin 3 l unit/mL (3 (three) mL) insulin times a pen day before meals. 24 in am 20 before lunch and dinner Eliquis 2.5 2020-0 Yes 2.5mg Q.5D Take [...] total) by l mouth daily. amIODarone 2020-0 2020- No 200mg QD Take 1 Met hodi (PACERONE) 10-[address] 200 MG 00:00: 00:00 (200 mg Hospita tablet 00 :00 total) by l mouth daily. amIODarone 2020-0 2020- No 200mg QD Take [...] AND HALF (12) A TABLET INTHE AFTERNOON. ranitidine 2017-07- No TAKE ONE [facility] (ZANTAC) 07-07 03-20 (1) [facility] 150 MG 00:00: 00:00 TABLET(S) Medic al tablet 00 :00 BY MOUTH Center ONCE A DAY. calcitriol 2021- No TAKE ONE [facility] (ROCALTROL) 11-06 03-20 (1) [facility] 0.25 MCG 00:00: 00:00 CAPSULE(S) Me dical capsule 00 :00 BY MOUTH Center ONCE A DAY. tadalafil 2016-07 Yes 1 TABLET Univ ers (CIALIS) 20 0-03 DAILY ity of mg tablet 10:04: NEEDED [address] Branch Dexlansopra 2016-07 Yes Take by Uni vers zole 0-03 mouth. ity of (DEXILANT) 10:04: [place] [facility] amiodarone 2016-07 Yes 200mg Take 200 Un josh 200 mg 0-03 mg by ity of tablet 10:04: mouth. [address] aspirin 325 2016-07 Yes 325mg Take 325 U nivers mg tablet 0-03 mg by ity of 10:04: mouth. [address] Azelastine 2016-07 Yes Use in Unive rs (ASTEPRO) 0-03 each ity of 0.15 % 10:04: nostril. [place] (205.5 mcg) [address] [place] [address] nasal spray [place] rosuvastati 2016-07 Yes 1 TABLET Un josh n (CRESTOR) 0-03 DAILY ity of 10 mg 09:38: [address] doxazosin 4 2016-07 Yes 2mg Take 2 mg U nivers mg tablet 0-03 by mouth. ity o f 09:38: [address] fosinopril 2016-07 Yes 20mg Take 20 mg U nivers 20 mg 0-03 by mouth. ity of tablet 09:38: [address] cephALEXin Yes TAKE ONE Uni vers 500 mg 9-17 (1) ity of capsule 00:00: [place] BY MOUTH Medical EVERY SIX Branch HOURS FOR 10 DAYS. CONTOUR Yes Univers NEXT STRIPS 8-08 ity of strip 00:00: [address] allopurinol Yes Univer s 100 mg 7-27 ity of tablet 00:00: [address] calcitriol Yes TAKE ONE Uni vers [...] ts Source Name Name FLUZONE HIGH-DOSE PF 2022-03-21 Completed Meth odist 00:00:00 [facility] PFIZER >12 YR 2022-03-21 Completed [facility] COVID-19 MRNA 00:00:00 Hospital BIVALENT VACCINATION MODERNA COVID-19 MRNA 2021-11-05 Completed Met hodist VACCINATION 00:00:00 Hospital MODERNA COVID-19 MRNA 2021-11-05 Completed Met hodist VACCINATION 00:00:00 [facility] MODERNA COVID-19 MRNA 2021-11-05 Completed Met hodist VACCINATION 00:00:00 [facility] FLUZONE HIGH-DOSE PF 2021-03-28 Completed Meth odist 00:00:00 [facility] FLUZONE HIGH-DOSE PF 2021-03-28 Completed Meth odist 00:00:00 Hospital FLUZONE HIGH-DOSE PF 2021-03-28 Completed Meth odist 00:00:00 [facility] COVID-19 MRNA 2021-02-26 Completed Met hodist VACCINATION 00:00:00 [facility] COVID-19 MRNA 2021-02-26 Completed Met hodist VACCINATION 00:00:00 [facility] COVID-19 MRNA 2021-02-26 Completed Met hodist VACCINATION 00:00:00 [facility] COVID-19 MRNA 2020-08-08 Completed Met hodist VACCINATION 00:00:00 [facility] COVID-19 MRNA 2020-08-08 Completed Met hodist VACCINATION 00:00:00 [facility] COVID-19 MRNA 2020-08-08 Completed Met hodist VACCINATION 00:00:00 [facility] COVID-19 MRNA 2020-07-11 Completed Met hodist VACCINATION 00:00:00 [facility] COVID-19 MRNA 2020-07-11 Completed Met hodist VACCINATION 00:00:00 [facility] COVID-19 MRNA 2020-07-11 Completed Met hodist VACCINATION 00:00:00 [facility] FLUZONE HIGH-DOSE PF 2020-05-03 Completed Meth odist 00:00:00 [facility] FLUZONE HIGH-DOSE PF 2020-05-03 Completed Meth odist 00:00:00 [facility] FLUZONE HIGH-DOSE PF 2020-05-03 Completed Meth odist 00:00:00 [facility] FLUZONE HIGH-DOSE PF 2019-04-15 Completed Meth odist 00:00:00 Hospital FLUZONE HIGH-DOSE PF 2019-04-15 Completed Meth odist 00:00:00 Hospital FLUZONE HIGH-DOSE PF 2019-04-15 Completed Meth odist 00:00:00 Hospital Influenza, 2018-04-23 Completed [facility] Quadrivalent 00:00:00 Hospital Influenza, 2018-04-23 Completed [facility] Quadrivalent 00:00:00 Hospital Influenza, 2018-04-23 Completed [facility] Quadrivalent 00:00:00 Hospital Influenza Whole 2018-04-16 Completed [facility] 00:00:00 Hospital Influenza Whole 2018-04-16 Completed [facility] 00:00:00 Hospital Influenza Whole 2018-04-16 Completed [facility] 00:00:00 Hospital FLUZONE HIGH-DOSE PF 2017-04-05 Completed Meth odist 00:00:00 Hospital FLUZONE HIGH-DOSE PF 2017-04-05 Completed Meth odist 00:00:00 Hospital FLUZONE HIGH-DOSE PF 2017-04-05 Completed Meth odist 00:00:00 Hospital Td, Unspecified 2017-03-22 Completed [facility] 00:00:00 Hospital Td, Unspecified 2017-03-22 Completed [facility] 00:00:00 Hospital Td, Unspecified 2017-03-22 Completed [facility] 00:00:00 Hospital Tdap 2016-10-23 Completed [facility] 00:00:00 Hospital Zoster 2016-10-23 Completed [facility] 00:00:00 Hospital Tdap 2016-10-23 Completed [facility] 00:00:00 Hospital Zoster 2016-10-23 Completed [facility] 00:00:00 Hospital Tdap 2016-10-23 Completed [facility] 00:00:00 Hospital Zoster 2016-10-23 Completed [facility] 00:00:00 Hospital Influenza Whole 2016-04-20 Completed [facility] 00:00:00 Hospital Pneumococcal 2016-04-20 Completed [facility] Conjugate 13-Valent 00:00:00 Hospi zina Influenza Whole 2016-04-20 Completed [facility] 00:00:00 Hospital Pneumococcal 2016-04-20 Completed [facility] Conjugate 13-Valent 00:00:00 Hospi zina Influenza Whole 2016-04-20 Completed [facility] 00:00:00 Hospital Pneumococcal 2016-04-20 Completed [facility] Conjugate 13-Valent 00:00:00 Hospi zina Pneumococcal 2016-04-11 Completed [facility] Polysaccharide 00:00:00 Hospital Pneumococcal 2016-04-11 Completed [facility] Polysaccharide 00:00:00 Hospital Pneumococcal 2016-04-11 Completed [facility] Polysaccharide 00:00:00 Hospital Influenza Whole 2015-04-24 Completed [facility] 00:00:00 Hospital Influenza Whole 2015-04-24 Completed [facility] 00:00:00 Hospital Influenza Whole 2015-04-24 Completed [facility] 00:00:00 Hospital Pneumococcal 2011-06-20 Completed [facility] Conjugate 00:00:00 Hospital Pneumococcal 2011-06-20 Completed [facility] Conjugate 00:00:00 Hospital Pneumococcal 2011-06-20 Completed [facility] Conjugate 00:00:00 Hospital Vital Signs Vital Name Observation Time Observation Value Comments Source Systolic blood 2021-10-02 19:26:00 106 mm[Hg] Univer sity of pressure [facility] Diastolic blood 2021-10-02 19:26:00 66 mm[Hg] Unive rsity of pressure [facility] Heart rate 2021-10-02 19:26:00 72 /min Universi ty [facility] Body height 2021-10-02 19:26:00 180.3 cm Universi [facility] Body weight 2021-10-02 19:26:00 90.719 kg Universi [facility] BMI 2021-10-02 19:26:00 27.89 kg/m[facility] in 2021-10-02 19:26:00 97 /min [facility] Arterial blood by [facility] Pulse oximetry Branch HEIGHT 2021-09-23 04:47:00 180 [...] Healt h BMI 2021-01-01 16:47:00 28.73 kg/m2 [facility] Systolic blood 2022-03-21 16:45:00 98 mm[Hg] Method [facility] pressure Diastolic blood 2022-03-21 16:45:00 54 [facility]Hg[facility] pressure Heart rate 2022-03-21 16:45:00 65 /min [facility] Body height 2022-03-21 16:45:00 180.3 cm [facility] Oxygen saturation in 2022-03-21 16:45:00 97 /min [facility] Arterial blood by Pulse oximetry Respiratory rate 2022-03-12 20:25:00 16 /min [facility] Body weight 2022-03-12 20:25:00 83.462 kg [facility] BMI 2022-03-12 20:25:00 25.66 kg/m2 [facility] Systolic blood 2021-11-20 20:59:00 122 mm[Hg] Method [facility] pressure Diastolic blood 2021-11-20 20:59:00 75 mm[facility]Hg[facility] pressure Heart rate 2021-11-20 20:59:00 84 /min [facility] Body weight 2021-11-20 20:59:00 102.059 kg [facility] BMI 2021-11-20 20:59:00 31.38 kg/m2 [facility] Oxygen saturation in 2021-11-20 20:59:00 94 /min [facility] Arterial blood by Pulse oximetry Heart rate 2021-09-28 09:43:00 72 /min [facility] Respiratory rate 2021-09-28 09:43:00 18 /min [facility] Oxygen saturation in 2021-09-28 09:43:00 92 /min [facility] Arterial blood by Medical Ce nter Pulse oximetry Systolic blood 2021-09-28 08:12:00 145 mm[Hg] [facility] Diastolic blood 2021-09-28 08:12:00 66 mm[Hg] [facility] Body temperature 2021-09-28 08:12:00 36.44 Angela [facility] Body height 2021-09-23 04:47:00 180 cm [facility] Body weight 2021-09-23 04:31:00 92.08 kg [facility] BMI 2021-09-23 04:31:00 28.42 kg/m2 [facility] Body height 2021-09-18 20:31:00 180.3 cm [facility] Body temperature 2021-09-18 20:31:[address] [facility] Respiratory rate 2021-07-30 21:08:00 16 /min [facility] Procedures Procedure Date / Time Performing Clinician Source Performed THYROID STIMULATING 2022-03-21 17:33:[address] [facility] HORMONE T4, FREE 2022-03-21 17:33:00 Marcia Luz [facility] BASIC METABOLIC PANEL 2022-03-21 17:33:00 Marcia Luz [facility] CBC WITH PLATELET AND 2022-03-21 17:33:00 Marcia Luz [facility] DIFFERENTIAL ECG 12-LEAD 2022-03-12 20:36:28 Coby Doan spital BASIC METABOLIC PANEL 2022-02-21 20:14:00 Marcia Luz [facility] BASIC METABOLIC PANEL 2022-01-29 17:16:00 Marcia Luz [facility] ECG 12-LEAD 2021-11-20 21:15:15 Coby Doan spital THYROID STIMULATING 2021-11-05 17:37:[address] [facility] HORMONE T4, FREE 2021-11-05 17:37:00 Marcia Luz [facility] URIC ACID LEVEL 2021-11-05 17:37:00 Marcia Luz [facility] BASIC METABOLIC PANEL 2021-11-05 17:37:00 Marcia Luz [facility] CBC WITH PLATELET AND 2021-11-05 17:37:00 Marcia Luz [facility] DIFFERENTIAL POCT-GLUCOSE METER 2021-09-28 04:36:00 Garrett Garcia [facility] CBC W/PLT COUNT & AUTO 2021-09-28 04:31:00 Garrett Garcia [facility] BASIC METABOLIC PANEL (7) 2021-09-28 04:31:00 Garrett Garcia [facility], [facility] MAGNESIUM 2021-09-28 04:31:00 Garrett Garcia [facility] CBC W/PLT COUNT & AUTO 2021-09-28 04:31:00 Garrett Garcia [facility] POCT-GLUCOSE METER 2021-09-27 22:49:00 Garrett Garcia [facility] POCT-GLUCOSE METER 2021-09-27 15:09:00 Garrett Garcia [facility] POCT-GLUCOSE METER 2021-09-27 11:40:00 Garrett Garcia [facility] POCT-GLUCOSE METER 2021-09-27 06:36:00 Garrett Garcia [facility] CBC W/PLT COUNT & AUTO 2021-09-27 04:36:00 Garrett Garcia [facility] BASIC METABOLIC PANEL (7) 2021-09-27 04:36:00 Garrett Garcia CH, I [facility] CBC W/PLT COUNT & AUTO 2021-09-27 04:36:00 Garrett Garcia [facility] POCT-GLUCOSE METER 2021-09-26 21:35:00 Garrett Garcia [facility] POCT-GLUCOSE METER 2021-09-26 17:00:00 Garrett Garcia [facility] POCT-GLUCOSE METER 2021-09-26 10:58:00 [facility] CBC W/PLT COUNT & AUTO 2021-09-26 08:57:00 Garrett Garcia [facility] DIFFERENTIAL [facility] BASIC METABOLIC PANEL (7) 2021-09-26 08:57:00 Garrett Garcia CH, I [facility] MAGNESIUM 2021-09-26 08:57:00 SerenalaineGarrett [facility] CBC W/PLT COUNT & AUTO 2021-09-26 08:57:00 Garrett Garcia [facility] POCT-GLUCOSE METER 2021-09-26 05:58:00 Adriane Jackman [facility] POCT-GLUCOSE METER 2021-09-25 21:37:00 Adriane Jackman [facility] POCT-GLUCOSE METER 2021-09-25 17:19:00 [facility] 2021-09-25 11:41:00 [facility]OLIC PANEL (7) 2021-09-25 05:54:00 Roxane [facility] HEPATIC FUNCTION PANEL 2021-09-25 05:54:00 Betts [facility] CBC W/PLT COUNT & AUTO 2021-09-25 05:54:00 Betts [facility] CBC W/PLT COUNT & AUTO 2021-09-25 05:54:00 Betts [facility] POCT-GLUCOSE METER 2021-09-25 05:16:00 Adriane Jackman [facility] POCT-GLUCOSE METER 2021-09-24 16:46:00 Adriane Jackman [facility] REPORT OF PROCEDURE - 2021-09-24 12:04:52 Crissy Singleton [facility] ENDOSCOPY [facility] POCT-GLUCOSE METER 2021-09-24 11:27:00 Adriane Jackman [facility] BASIC METABOLIC PANEL (7) 2021-09-24 05:07:00 Betts, [facility] HEPATIC FUNCTION PANEL 2021-09-24 05:07:00 Betts [facility] CBC W/PLT COUNT & AUTO 2021-09-24 05:07:00 Betts, [facility] CBC W/PLT COUNT & AUTO 2021-09-24 05:07:00 Latoya [facility] HEMOGLOBIN AND HEMATOCRIT 2021-09-23 22:27:00 Latoya [facility] POCT-GLUCOSE METER 2021-09-23 20:58[facility] 2021-09-23 17:29:00 Latoya [facility] TROPONIN I 2021-09-23 17:29:00 [facility] [facility] US RENAL COMPLETE 2021-09-23 17:01:00 Latoya [facility] POCT-GLUCOSE METER 2021-09-23 15:54:00 [facility] POCT-GLUCOSE METER 2021-09-23 11:21:00 [facility] 2D ECHO W/ DOPPLER 2021-09-23 11:07:49 Latoya [facility] (CW/PW/COLOR) [facility] HEMOGLOBIN AND HEMATOCRIT 2021-09-23 10:25:00 Latoya [facility] TROPONIN I 2021-09-23 10:25:00 Latoya [facility] URINE CULTURE 2021-09-23 06:43:00 Severino [facility] URINALYSIS W/ REFLEX 2021-09-23 06:43:00 Severino [facility] URINE CULTURE [facility] BLOOD CULTURE 2021-09-23 06:42:00 Severino [facility] ECG 12-LEAD 2021-09-23 05:48:37 Latoya [facility] TROPONIN I 2021-09-23 05:34:00 Latoya [facility] ABORH, MANUAL 2021-09-23 05:34:00 Betty Alexander [facility] XR CHEST 1 VIEW PORTABLE 2021-09-23 04:05:00 Rajan Klein am [facility] BASIC METABOLIC PANEL (7) 2021-09-23 03:51:00 Roxane Cindy I [facility] HEPATIC FUNCTION PANEL 2021-09-23 03:51:00 Roxane Cindy [facility] MAGNESIUM 2021-09-23 03:51:00 LatoyaRajan bull [facility] PHOSPHORUS 2021-09-23 03:51:00 LatoyaRajan bull Abraham [facility] PROTHROMBIN TIME/INR 2021-09-23 03:51:00 Rajan Klein [facility] CBC W/PLT COUNT & AUTO 2021-09-23 03:51:00 Roxane [facility] HEMOGLOBIN A1C 2021-09-23 03:51:00 Latoya [facility] TYPE AND SCREEN, 2021-09-23 03:51:[address] [facility] AUTOMATED [facility] CBC W/PLT COUNT & AUTO 2021-09-23 03:51:00 Latoya [facility] POCT-GLUCOSE METER 2021-09-23 03:33:00 Latoya, [facility] POCT-GLUCOSE METER 2021-09-23 03:08:00 [facility] POC GLUCOSE 2021-07-04 18:50:00 Albert Johnston [facility] POC GLUCOSE 2021-07-04 14:55:00 Albert Johnston [facility] THYROID STIMULATING 2021-07-04 10:39:[address] [facility] HORMONE T4, FREE 2021-07-04 10:39:00 Saranya Crowder [facility] CBC HEMOGRAM 2021-07-04 10:39:00 Albert Johnston [facility] BASIC METABOLIC PANEL 2021-07-04 10:39:00 Saranya Crowder [facility] ESTIMATED GFR 2021-07-04 10:39:00 Saranya Crowder [facility] COVID-19 QUALITATIVE 2021-07-04 10:17:00 Saranya Crowder [facility] RT-PCR POC GLUCOSE 2021-07-04 04:18:00 Vickie, [facility] POC GLUCOSE 2021-07-04 00:15:00 Olton, [facility] POC GLUCOSE 2021-07-03 19:20:00 Olton, [facility] POC GLUCOSE 2021-07-03 14:29:00 Olton, [facility] CBC HEMOGRAM 2021-07-03 11:16:00 Vickie, [facility] BASIC METABOLIC PANEL 2021-07-03 11:16:00 AgSaranya rivera [facility] ESTIMATED GFR 2021-07-03 11:16:00 [facility] 2021-07-03 02:49:00 Vickie, [facility] POC GLUCOSE 2021-07-03 00:31:00 Vickie, [facility] CT THORACIC SPINE WO 2021-07-03 00:28:19 AgSaranya rivera [facility] CONTRAST CT CERVICAL SPINE WO 2021-07-03 00:27:44 AgSaranya rivera [facility] CONTRAST POC GLUCOSE 2021-07-02 18:21:00 Vickie, [facility] POC GLUCOSE 2021-07-02 14:24:00 Vickie, [facility] POC GLUCOSE 2021-07-02 03:06:00 Vickie, [facility] POC GLUCOSE 2021-07-01 23:34:00 [facility]ri[facility]ivam [facility] POC GLUCOSE 2021-07-01 18:14:00 TerriShivam [facility] POC GLUCOSE 2021-07-01 14:13:00 TerriShivam [facility] POC GLUCOSE 2021-07-01 03:14:00 Shivam Murray [facility] POC GLUCOSE 2021-07-01 00:12:00 TerriShivam [facility] POC GLUCOSE 2021-06-30 18:50:00 TerriShivam spital POC GLUCOSE 2021-06-30 13:55:00 TerriShivam Ho spital POC GLUCOSE 2021-06-30 03:12:00 TerriShivam Ho spital POC GLUCOSE 2021-06-29 21:53:00 TerriShivam Ho spital BASIC METABOLIC PANEL 2021-06-29 20:34:[address] [facility] [place] MAGNESIUM LEVEL 2021-06-29 20:34:00 [facility] ESTIMATED GFR 2021-06-29 20:34:00 [facility] POC GLUCOSE 2021-06-29 14:26:00 TerriShivam spital POC GLUCOSE 2021-06-29 03:34:00 TerriShivam spital POC GLUCOSE 2021-06-28 23:14:00 TerriShivam spital POC GLUCOSE 2021-06-28 18:31:00 TerriShivam spital POC GLUCOSE 2021-06-28 15:00:00 TerriShivamist Ho spital COVID-19 ANTI-SPIKE IGG 2021-06-28 10:31:00 [facility] ANTIBODY TITER COVID-19 SEROLOGY PATIENT 2021-06-28 10:31:00 [facility] SURVEILLANCE BASIC METABOLIC PANEL 2021-06-28 10:31:00 [facility] B NATRIURETIC PEPTIDE 2021-06-28 10:31:00 [facility] HC COMPLETE BLD COUNT 2021-06-28 10:31:00 [facility] W/AUTO DIFF PHOSPHORUS LEVEL 2021-06-28 10:31:00 [facility] MAGNESIUM LEVEL 2021-06-28 10:31:00 [facility] TROPONIN T 2021-06-28 10:31:00 [facility] ESTIMATED GFR 2021-06-28 10:31:00 [facility] [place] CRITICAL CARE, E/M 2021-06-28 02:10:59 Tu, [facility] 30-74 MINUTES ECG ED PRELIMINARY 2021-06-28 02:10:59 Tu, [facility] INTERPRETATION TROPONIN T 2021-06-28 01:54:00 Tu, [facility] TROPONIN T 2021-06-27 22:37:00 Tu, [facility] ECG 12-LEAD 2021-06-27 22:11:52 Tu, [facility] RESPIRATORY PATHOGEN 2021-06-27 20:15:00 Tu, [facility] PANEL WITH COVID-19 RT-PCR HC COMPLETE BLD COUNT 2021-06-27 20:15:00 Tu, [facility] W/AUTO DIFF PROTHROMBIN TIME WITH INR 2021-06-27 20:15:00 Tu, [facility] PARTIAL THROMBOPLASTIN 2021-06-27 20:15:00 Tu, [facility] TIME (PTT) COMPREHENSIVE METABOLIC 2021-06-27 20:15:00 Tu, [facility] PANEL TROPONIN T 2021-06-27 20:15:00 Tu, [facility] B NATRIURETIC PEPTIDE 2021-06-27 20:15:00 Tu, [facility] ESTIMATED GFR 2021-06-27 20:15:00 Tu, [facility] XR CHEST 1 VW PORTABLE 2021-06-27 20:00:58 Tu, [facility] TTE COMPLETE, WO 2021-06-05 22:55:45 Coby Doan H ospital CONTRAST, W DOPPLER ([id number]) BASIC METABOLIC PANEL 2021-04-06 14:31:00 Coby Doan [facility] CBC WITH PLATELET AND 2021-03-09 17:20:00 Coby Doan [facility] DIFFERENTIAL COMPREHENSIVE METABOLIC 2021-03-09 17:20:[address] [facility] PANEL MAGNESIUM LEVEL 2021-03-09 17:20:00 Coby Doan [facility] NT-PROBNP 2021-03-09 17:20:00 Coby [facility] HEMOGLOBIN A1C 2021-03-09 17:20:00 Coby Doan [facility] ECG 12-LEAD 2021-03-02 19:02:03 Coby Doan [facility] ESOPHAGOGASTRODUODENOSCOP Areli, Moazzam [facility], WITH HEMORRHAGE [facility] Plan of Care Planned Activity Planned Date Details Comments Source Future Scheduled 2026-10-23 DTAP/TDAP/TD VACCINES [facility] 00:00:00 (2 - Td or Tdap) [code Medic al Center = DTAP/TDAP/TD VACCINES (2 - Td or Tdap)] Future Scheduled 2022-03-22 HEPATITIS B VACCINES [facility] Test 08:06:30 (1 of 3 - 3-dose series) [code = HEPATITIS B VACCINES (1 of 3 - 3-dose series)] Future Scheduled 2022-03-22 SHINGLES VACCINES (1 [facility] Test 08:06:30 of 2) [code = SHINGLES VACCINES (1 of 2)] Future Scheduled 2022-03-22 DIABETIC FOOT EXAM [facility] Test 08:06:30 [code = DIABETIC FOOT EXAM] Future Scheduled 2022-03-22 DIABETES: RETINAL EYE [facility] Test 08:06:30 EXAM [code = DIABETES: RETINAL EYE EXAM] Future Scheduled 2022-03-07 INFLUENZA VACCINE (#1) [facility] 00:00:00 [code = INFLUENZA Medical Ce nter VACCINE (#1)] Future Scheduled 2022-01-28 DIABETIC FOOT EXAM [facility] Test 10:30:05 [code = DIABETIC FOOT EXAM] Future Scheduled 2022-01-28 INFLUENZA VACCINE [facility] Test 10:30:05 [code = INFLUENZA VACCINE] Future Scheduled 2022-01-28 DIABETES: RETINAL EYE [facility] Test 10:30:05 EXAM [code = DIABETES: RETINAL EYE EXAM] Future Scheduled 2022-01-28 SHINGLES VACCINES (1 [facility] Test 10:30:05 of 2) [code = SHINGLES VACCINES (1 of 2)] Future Scheduled 2022-01-28 65+ PNEUMOCOCCAL [facility] Test 10:30:05 VACCINE (3 - PPSV23 or PCV20) [code = 65+ PNEUMOCOCCAL VACCINE (3 - PPSV23 or PCV20)] Future Scheduled 2022-01-28 DIABETIC FOOT EXAM [facility] Test 10:30:05 [code = DIABETIC FOOT EXAM] Future Scheduled 2022-01-28 INFLUENZA VACCINE [facility] Test 10:30:05 [code = INFLUENZA VACCINE] Future Scheduled 2022-01-28 DIABETES: RETINAL EYE [facility] 10:30:05 EXAM [code = DIABETES: RETINAL EYE EXAM] Future Scheduled 2022-01-28 SHINGLES VACCINES (1 [facility] Test 10:30:05 of 2) [code = SHINGLES VACCINES (1 of 2)] Future Scheduled 2022-01-28 65+ P[facility]UMOCOCCAL [facility] Test 10:30:05 VACCINE (3 - PPSV23 or PCV20) [code = 65+ PNEUMOCOCCAL VACCINE (3 - PPSV23 or PCV20)] Future Scheduled 2021-07-[address] [facility] Test 00:00:00 (12+) [code = Medical Center DEPRESSION SCREENING (12+)] Future Scheduled 2021-07-07 FALLS RISK SCREENING [facility] Test 00:00:00 [code = FALLS RISK Medical C enter SCREENING] Future Scheduled 2016-12-18 SHINGLES VACCINES ([address] [facility] Test 00:00:00 of 3) [code = SHINGLES Medic al Center VACCINES (2 of 3)] Future Scheduled 2002-04-[address] [facility] 00:00:00 WELLNESS (YEAR 2 or Medical Center FIRST YEAR if no IPPE) [code = MEDICARE ANNUAL WELLNESS (YEAR 2 or FIRST YEAR if no IPPE)] Encounters Start End Encounter Admission Attending Care Care Encounter Source Date/Time Date/Time Type Type Clinicians Facility Department ID 2020-11-13 Outpatient SCARLETT [facility] [id number] [place] 15:45:00 VIRAJ [facility] 2019-11-18 Outpatient SCAR[facility]TT [facility] CAR [id number] [facility] 08:31:52 VIRAJ 2022-03-21 2022-03-21 Office Sukh, 1.2.840.1 [id number] Methodi 11:30:00 12:48:13 Visit Marcia 59251.1.[address] B. 3.430.2.7 Hospit a .3.943051 l .8 2022-03-21 2022-03-21 Telephone Sukh, 1.2.840.1 [id number] 2100 [id number] Methodi 00:00:00 00:00:[address] B. 3.430.2.7 Hospit a .3.433573 l .8 2022-03-21 2022-03-21 Travel 1.2.840.1 1.2.089.440 4101 [id number] Methodi 00:00:00 00:00:[address] 3.430.2.7 0.2.7.3.698 Ho spita .3.667353 084.8 l .8 2022-03-21 2022-03-21 [facility] [id number] 597 [place] 00:00:00 00:00:00 MARCIA [address] 2022-03-18 2022-03-18 Telephone Sukh, 1.2.840.1 [id number] 2099 [id number] Methodi 00:00:00 00:00:[address] B. 3.430.2.7 Hospit a .3.230584 l .8 2022-03-15 2022-03-15 Patient Raven, Nieves 1.2.840.1 [id number] 2099 [id number] Methodi 00:00:00 00:00:[address] 3.430.2.7 Hospit a .3.051124 l .8 2022-03-12 2022-03-12 Office Coby Doan 1.2.840.1 [id number] Methodi 14:20:00 17:18:13 Visit Judith 80914.1.[address] 3.430.2.7 Hospit a .3.404744 l .8 2022-03-12 2022-03-12 Patient Raven, Nieves 1.2.840.1 [id number] 2100 [id number] Methodi 00:00:00 00:00:[address] 3.430.2.7 Hospit a .3.185965 l .8 2022-03-12 2022-03-12 Travel 1.2.840.1 1.2.078.405 4003 150320 Methodi 00:00:00 00:00:[address] 3.430.2.7 0.2.7.3.698 Ho spita .3.181292 084.8 l .8 2022-03-12 2022-03-12 Outpatient COBY DOAN [facility] [id number] 175 [place] 00:00:00 00:00:[address] 2022-03-10 2022-03-10 Orders Sukh, 1.2.840.1 [id number] 3721 Methodi 00:00:00 00:00:00 Only Marcia 70425.1.[address] B. 3.430.2.7 Hospit a .3.928572 l .8 2022-03-09 2022-03-09 Refill Sukh, 1.2.840.1 [id number] 3848 Methodi 00:00:00 00:00:[address] B. 3.430.2.7 Hospit a .3.266007 l .8 2022-03-05 2022-03-05 Patient Raven, Nieves 1.2.840.1 [id number] Methodi 00:00:00 00:00:[address] 3.430.2.7 Hospit a .3.384803 l .8 2022-03-04 2022-03-04 Outpatient Carla [facility] [id number] [place] 00:00:00 00:00:00 15938 [facility] 2022-03-01 2022-03-01 External Jugueta, 1.2.840.1 [id number] Methodi 00:00:00 00:00:00 Home Kye Sears 36289.1.1 875 s t [facility] 3.430.2.7 Hospit a .3.921689 l .8 2022-03-01 2022-03-01 Refill Maco, 1.2.840.1 [id number] 2100 [id number] Methodi 00:00:00 00:00:[address] 3.430.2.7 Hospit a .3.164653 l .8 2022-02-28 2022-02-28 Telephone Sukh, 1.2.840.1 [id number] 2099 [id number] Methodi 00:00:00 00:00:[address] B. 3.430.2.7 Hospit a .3.099496 l .8 2022-02-22 2022-02-22 Patient Nieves Carbajal 1.2.840.1 [id number] 2099 [id number] Methodi 00:00:00 00:00:[address] 3.430.2.7 Hospit a .3.719598 l .8 2022-02-21 2022-02-21 Office Sukh, 1.2.840.1 [id number] 5657 Methodi 14:15:00 15:19:40 Visit Marcia 94669.1.[address] B. 3.430.2.7 Hospit a .3.059210 l .8 2022-02-21 2022-02-21 [facility] [id number] 979 [place] 00:00:00 00:00:00 MARCIA [address] 2022-02-15 2022-02-15 Refill Sukh, 1.2.840.1 [id number] 8814 Methodi 00:00:00 00:00:[address] B. 3.430.2.7 Hospit a .3.102654 l .8 2022-02-15 2022-02-15 Telephone Sukh, 1.2.840.1 [id number] 2099 [id number] Methodi 00:00:00 00:00:[address] B. 3.430.2.7 Hospit a .3.509102 l .8 2022-02-15 2022-02-15 Travel 1.2.840.1 1.2.373.339 5279 [id number] Methodi 00:00:00 00:00:[address] 3.430.2.7 0.2.7.3.698 Ho spita .3.011938 084.8 l .8 2022-02-13 2022-02-13 Telephone Sukh, 1.2.840.1 [id number] 2099 [id number] Methodi 00:00:00 00:00:[address] B. 3.430.2.7 Hospit a .3.120684 l .8 2022-02-12 2022-02-12 Patient Raven, Nieves 1.2.840.1 [id number] 2099 [id number] Methodi 00:00:00 00:00:[address] 3.430.2.7 Hospit a .3.800229 l .8 2022-02-11 2022-02-11 Outpatient Sutton_M [facility] [id number] [place] 00:00:00 00:00:00 [facility] 2022-02-11 2022-02-11 Patient Guerrero, 1.2.840.1 [id number] 5571 Methodi 00:00:00 00:00:00 Outreach Rachel 64670.1.[address] 3.430.2.7 Hospit a .3.503661 l .8 2022-02-11 2022-02-11 Outpatient Soto, U U [id number] e-1 00:00:00 00:00:00 [facility] [id number] 2022-02-08 2022-02-08 Outpatient Sutton_M [facility] [id number] [place] 00:00:00 00:00:00 15359 [facility] 2022-02-07 2022-02-07 Telephone Coby Doan 1.2.840.1 [id number] 2099 [id number] Methodi 00:00:00 00:00:[address] 3.430.2.7 Hospit a .3.576624 l .8 2022-02-06 2022-02-06 Refill Rosa Eric 1.2.840.1 [id number] Methodi 00:00:00 00:00:[address] 3.430.2.7 Hospit a .3.559747 l .8 2022-02-06 2022-02-06 Patient Nieves Carbajal 1.2.840.1 [id number] 2099 [id number] Methodi 00:00:00 00:00:[address] 3.430.2.7 Hospit a .3.267509 l .8 2022-02-05 2022-02-05 Telephone Sukh, 1.2.840.1 [id number] 2099 [id number] Methodi 00:00:00 00:00:[address] B. 3.430.2.7 Hospit a .3.625454 l .8 2022-02-04 2022-02-04 Telephone Sukh, 1.2.840.1 [id number] 2099 [id number] Methodi 00:00:00 00:00:[address] B. 3.430.2.7 Hospit a .3.309198 l .8 2022-02-04 2022-02-04 Refill Sukh, 1.2.840.1 [id number] 5867 Methodi 00:00:00 00:00:[address] B. 3.430.2.7 Hospit a .3.009199 l .8 2022-01-31 2022-01-31 Telephone Sukh, 1.2.840.1 [id number] 2099 [id number] Methodi 00:00:00 00:00:[address] B. 3.430.2.7 Hospit a .3.537144 l .8 2022-01-30 2022-01-30 Telephone Sukh, 1.2.840.1 [id number] 2100 [id number] Methodi 00:00:00 00:00:[address] B. 3.430.2.7 Hospit a .3.346337 l .8 2022-01-29 2022-01-29 Office Sukh, 1.2.840.1 [id number] 9437 Methodi 11:30:00 12:27:55 Visit Marcia 73079.1.[address] B. 3.430.2.7 Hospit a .3.165011 l .8 2022-01-29 2022-01-29 Outpatient Carla [facility] [id number] [place] 01:05:00 01:05:00 [facility] 2022-01-29 2022-01-29 Travel 1.2.840.1 1.2.468.438 1083 [id number] Methodi 00:00:00 00:00:[address] 3.430.2.7 0.2.7.3.698 Ho spita .3.218786 084.8 l .8 2022-01-29 2022-01-29 [facility] [id number] 791 [place] 00:00:00 00:00:00 MARCIA [address] 2022-01-28 2022-01-28 Patient Raven, Nieves 1.2.840.1 [id number] 2099 [id number] Methodi 00:00:00 00:00:[address] 3.430.2.7 Hospit a .3.902017 l .8 2022-01-25 2022-01-25 Outpatient Carla [facility] [id number] [place] 05:21:00 05:21:00 [facility] 2022-01-25 2022-01-25 Patient Dylan, 1.2.840.1 [id number] Methodi 00:00:00 00:00:00 Outreach Vanessa 70688.1.[address] 3.430.2.7 Hospit a .3.334287 l .8 2022-01-25 2022-01-25 Telephone Sukh, 1.2.840.1 [id number] 2099 [id number] Methodi 00:00:00 00:00:[address] B. 3.430.2.7 Hospit a .3.342710 l .8 2022-01-25 2022-01-25 Patient Dylan, 1.2.840.1 [id number] Methodi 00:00:00 00:00:00 Outreach Vanessa 27958.1.[address] 3.430.2.7 Hospit a .3.671698 l .8 2022-01-25 2022-01-25 Telephone Sukh, 1.2.840.1 [id number] 2100 [id number] Methodi 00:00:00 00:00:[address] B. 3.430.2.7 Hospit a .3.963963 l .8 2022-01-18 2022-01-18 Refjohanna Doan Coby 1.2.840.1 [id number] 5392 Methodi 00:00:00 00:00:[address] 3.430.2.7 Hospit a .3.622192 l .8 2022-01-18 2022-01-18 Travel 1.2.840.1 1.2.813.598 1097 157669 Methodi 00:00:00 00:00:[address] 3.430.2.7 0.2.7.3.698 Ho spita .3.609740 084.8 l .8 2022-01-18 2022-01-18 Telephone Sukh, 1.2.840.1 [id number] 2099 [id number] Methodi 00:00:00 00:00:[address] B. 3.430.2.7 Hospit a .3.859643 l .8 2022-01-18 2022-01-18 RefCoby Mackay 1.2.840.1 [id number] 1194 Methodi 00:00:00 00:00:[address] 3.430.2.7 Hospit a .3.295227 l .8 2022-01-18 2022-01-18 Travel 1.2.840.1 1.2.298.422 4684 [id number] Methodi 00:00:00 00:00:[address] 3.430.2.7 0.2.7.3.698 Ho spita .3.410570 084.8 l .8 2022-01-18 2022-01-18 Telephone Sukh, 1.2.840.1 [id number] 2099 [id number] Methodi 00:00:00 00:00:[address] B. 3.430.2.7 Hospit a .3.201444 l .8 2022-01-14 2022-01-14 Outpatient [facility] [id number] -202 [place] 11:06:00 11:06:00 60604 [facility] 2022-01-14 2022-01-14 Patient Raven, Nieves 1.2.840.1 [id number] 2100 [id number] Methodi 00:00:00 00:00:[address] 3.430.2.7 Hospit a .3.294339 l .8 2022-01-14 2022-01-14 Patient Raven, Nieves 1.2.840.1 [id number] 2100 [id number] Methodi 00:00:00 00:00:[address] 3.430.2.7 Hospit a .3.073566 l .8 2022-01-13 2022-01-13 Orders Sukh, 1.2.840.1 [id number] Methodi 00:00:00 00:00:00 Only Marcia 45326.1.[address] B. 3.430.2.7 Hospit a .3.030352 l .8 2022-01-13 2022-01-13 Orders Sukh, 1.2.840.1 [id number] 1528 Methodi 00:00:00 00:00:00 Only Marcia 50690.1.[address] B. 3.430.2.7 Hospit a .3.106329 l .8 2022-01-10 2022-01-10 Telephone Sukh, 1.2.840.1 [id number] 2099 [id number] Methodi 00:00:00 00:00:[address] B. 3.430.2.7 Hospit a .3.727667 l .8 2022-01-10 2022-01-10 Telephone Sukh, 1.2.840.1 [id number] 2099 [id number] Methodi 00:00:00 00:00:[address] B. 3.430.2.7 Hospit a .3.013446 l .8 2022-01-04 2022-01-04 External Jugueta, 1.2.840.1 [id number] 2100 [id number] Methodi 00:00:00 00:00:00 Home Kye Sears 57957.1.1 712 s t Health 3.430.2.7 Hospit a .3.775816 l .8 2022-01-04 2022-01-04 External Jugueta, 1.2.840.1 [id number] 2100 [id number] Methodi 00:00:00 00:00:00 Home Kye Sears 61655.1.1 712 s t Health 3.430.2.7 Hospit a .3.206796 l .8 2022-01-02 2022-01-02 Telephone Sukh, 1.2.840.1 [id number] Methodi 00:00:00 00:00:[address]. 3.430.2.7 Hospit a .3.990972 l .8 2022-01-02 2022-01-02 Telephone Sukh, 1.2.840.1 [id number] 2099 [id number] Methodi 00:00:00 00:00:[address] B. 3.430.2.7 Hospit a .3.169257 l .8 2022-01-01 2022-01-01 Patient Raven, Nieves 1.2.840.1 2099 [id number] Methodi 00:00:00 00:00:[address] 3.430.2.7 Hospit a .3.050832 l .8 2022-01-01 2022-01-01 Telephone Sukh, 1.2.840.1 [id number] 2100 026962 Methodi 00:00:00 00:00:[address] B. 3.430.2.7 Hospit a .3.221946 l .8 2022-01-01 2022-01-01 Telephone Sukh, 1.2.840.1 [id number] 2099 781605 Methodi 00:00:00 00:00:[address]. 3.430.2.7 Hospit a .3.443601 l .8 2022-01-01 2022-01-01 Patient Raven, Nieves 1.2.840.1 2099 046367 Methodi 00:00:00 00:00:[address] 3.430.2.7 Hospit a .3.683592 l .8 2022-01-01 2022-01-01 Telephone Sukh, 1.2.840.1 [id number] 2099 586145 Methodi 00:00:00 00:00:[address]. 3.430.2.7 Hospit a .3.041833 l .8 2022-01-01 2022-01-01 Telephone Sukh, 1.2.840.1 [id number] 2099 272560 Methodi 00:00:00 00:00:[address]. 3.430.2.7 Hospit a .3.625195 l .8 2021-12-28 2021-12-28 Telephone Sukh, 1.2.840.1 [id number] 2100 986870 Methodi 00:00:00 00:00:[address]. 3.430.2.7 Hospit a .3.924536 l .8 2021-12-28 2021-12-28 Telephone Sukh, 1.2.840.1 [id number] 2100 060549 Methodi 00:00:00 00:00:[address]. 3.430.2.7 Hospit a .3.964994 l .8 2021-12-26 2021-12-26 Telephone Sukh, 1.2.840.1 [id number] 2100 316219 Methodi 00:00:00 00:00:[address]. 3.430.2.7 Hospit a .3.544373 l .8 2021-12-26 2021-12-26 Telephone Sukh, 1.2.840.1 [id number] 2100 934926 Methodi 00:00:00 00:00:[address]. 3.430.2.7 Hospit a .3.938485 l .8 2021-12-22 2021-12-22 Orders Sukh, 1.2.840.1 [id number] 504089 4290 Methodi 00:00:00 00:00:00 Only Marcia 82632.1.[address] B. 3.430.2.7 Hospit a .3.940133 l .8 2021-12-22 2021-12-22 Orders Sukh, 1.2.840.1 [id number] 625248 6507 Methodi 00:00:00 00:00:00 Only Marcia 91125.1.[address] B. 3.430.2.7 Hospit a .3.510119 l .8 2021-12-21 2021-12-21 Patient Raven, Nieves 1.2.840.1 [id number] 2099 641214 Methodi 00:00:00 00:00:[address] 3.430.2.7 Hospit a .3.668397 l .8 2021-12-21 2021-12-21 Patient Raven, Nieves 1.2.840.1 [id number] 2100 868515 Methodi 00:00:00 00:00:[address] 3.430.2.7 Hospit a .3.390873 l .8 2021-12-20 2021-12-20 Patient Raven, Nieves 1.2.840.1 [id number] 2100 947791 Methodi 00:00:00 00:00:[address] 3.430.2.7 Hospit a .3.985952 l .8 2021-12-20 2021-12-20 Patient Raven, Nieves 1.2.840.1 2099 836475 Methodi 00:00:00 00:00:[address] 3.430.2.7 Hospit a .3.064341 l .8 2021-12-14 2021-12-14 Telephone Sukh, 1.2.840.1 [id number] 2099 726762 Methodi 00:00:00 00:00:[address] B. 3.430.2.7 Hospit a .3.820240 l .8 2021-12-14 2021-12-14 Telephone Sukh, 1.2.840.1 [id number] 2100 823165 Methodi 00:00:00 00:00:[address]. 3.430.2.7 Hospit a .3.710410 l .8 2021-12-13 2021-12-13 Telephone Coby Doan 1.2.840.1 [id number] 2099 870599 Methodi 00:00:00 00:00:[address] 3.430.2.7 Hospit a .3.989373 l .8 2021-12-13 2021-12-13 Telephone Coby Doan 1.2.840.1 [id number] 2099 172155 Methodi 00:00:00 00:00:[address] 3.430.2.7 Hospit a .3.436815 l .8 2021-12-12 2021-12-12 Telemedici Sukh, 1.2.840.1 [id number] 886 [id number] Methodi 15:00:00 15:15:00 [address] Marcia [address]3810.1.[address] B. 3.430.2.7 Hospit a .3.856677 l .8 2021-12-12 2021-12-12 Telemedici Sukh, 1.2.840.1 [id number] 487 [id number] Methodi 15:00:00 15:15:00 ne Marcia 34484.1.[address] B. 3.430.2.7 Hospit a .3.513087 l .8 2021-12-12 2021-12-12 Telephone Sukh, 1.2.840.1 [id number] 2099 371009 Methodi 00:00:00 00:00:[address] B. 3.430.2.7 Hospit a .3.054525 l .8 2021-12-12 2021-12-12 Telephone Sukh, 1.2.840.1 [id number] 2099 162009 Methodi 00:00:00 00:00:[address] B. 3.430.2.7 Hospit a .3.559189 l .8 2021-12-11 2021-12-11 Telephone Lenin, 1.2.840.1 [id number] 345 [id number] Methodi 00:00:00 00:00:[address] 3.430.2.7 Hospit a .3.008627 l .8 2021-12-11 2021-12-11 Patient Raven, Nieves 1.2.840.1 [id number] 2099 942858 Methodi 00:00:00 00:00:[address] 3.430.2.7 Hospit a .3.427504 l .8 2021-12-11 2021-12-11 Telephone Sukh, 1.2.840.1 [id number] 2099 064787 Methodi 00:00:00 00:00:[address] B. 3.430.2.7 Hospit a .3.965728 l .8 2021-12-11 2021-12-11 Telephone Sukh, 1.2.840.1 5495022122099659 Methodi 00:00:00 00:00:[address] B. 3.430.2.7 Hospit a .3.756555 l .8 2021-12-11 2021-12-11 Telephone Lenin, 1.2.840.1 [id number] 917 4820618 Methodi 00:00:00 00:00:[address] 3.430.2.7 Hospit a .3.181383 l .8 2021-12-11 2021-12-11 Patient Raven, Nieves 1.2.840.1 [id number] Methodi 00:00:00 00:00:[address] 3.430.2.7 Hospit a .3.890350 l .8 2021-12-11 2021-12-11 Telephone Sukh, 1.2.840.1 012038601 2100 664918 Methodi 00:00:00 00:00:[address] B. 3.430.2.7 Hospit a .3.554373 l .8 2021-12-11 2021-12-11 Telephone Sukh, 1.2.840.1 [id number] 2099 192110 Methodi 00:00:00 00:00:[address] B. 3.430.2.7 Hospit a .3.641783 l .8 2021-12-11 2021-12-11 Telephone Sukh, 1.2.840.1 [id number] 2099 642131 Methodi 00:00:00 00:00:[address] B. 3.430.2.7 Hospit a .3.111457 l .8 2021-12-10 2021-12-10 Orders Sukh, 1.2.840.1 [id number] 568649 1767 Methodi 00:00:00 00:00:00 Only Marcia 66838.1.[address] B. 3.430.2.7 Hospit a .3.422265 l .8 2021-12-10 2021-12-10 Patient Dylan, 1.2.840.1 [id number] 56107 Methodi 00:00:00 00:00:00 Tim Mendez 01353.1.[address] 3.430.2.7 Hospit a .3.832125 l .8 2021-12-10 2021-12-10 Travel 1.2.840.1 1.2.820.483 7557 454953 Methodi 00:00:00 00:00:[address] 3.430.2.7 0.2.7.3.698 Ho spita .3.876863 084.8 l .8 2021-12-10 2021-12-10 Orders Sukh, 1.2.840.1 [id number] 052618 1103 Methodi 00:00:00 00:00:00 Only Marcia 59477.1.[address] B. 3.430.2.7 Hospit a .3.540778 l .8 2021-12-10 2021-12-10 Patient Dylan, 1.2.840.1 [id number] 55424 Methodi 00:00:00 00:00:00 Outreach Vanessa 22932.1.[address] 3.430.2.7 Hospit a .3.541558 l .8 2021-12-10 2021-12-10 Travel 1.2.840.1 1.2.282.702 7969 808122 Methodi 00:00:00 00:00:[address] 3.430.2.7 0.2.7.3.698 Ho spita .3.445475 084.8 l .8 2021-12-06 2021-12-06 Telephone Sukh, 1.2.840.1 [id number] 2100 925723 Methodi 00:00:00 00:00:[address] B. 3.430.2.7 Hospit a .3.997298 l .8 2021-12-06 2021-12-06 Telephone Sukh, 1.2.840.1 [id number] 2099 149892 Methodi 00:00:00 00:00:[address] B. 3.430.2.7 Hospit a .3.824189 l .8 2021-11-30 2021-11-30 Patient Raven, Nieves 1.2.840.1 [id number] 2100 900100 Methodi 00:00:00 00:00:[address] 3.430.2.7 Hospit a .3.550656 l .8 2021-11-30 2021-11-30 Patient Raven, Nieves 1.2.840.1 [id number] 2100 492950 Methodi 00:00:00 00:00:[address] 3.430.2.7 Hospit a .3.236153 l .8 2021-11-29 2021-11-29 External Jugueta, 1.2.840.1 [id number] 2100 885435 Methodi 00:00:00 00:00:00 Home Kye Sears 94104.1.1 345 s t Health 3.430.2.7 Hospit a .3.812750 l .8 2021-11-29 2021-11-29 External Jugueta, 1.2.840.1 [id number] 2100 790768 Methodi 00:00:00 00:00:00 Home Kye Sears 87402.1.1 345 s t Health 3.430.2.7 Hospit a .3.648435 l .8 2021-11-28 2021-11-28 Patient Raven, Nieves 1.2.840.1 2099910 Methodi 00:00:00 00:00:[address] 3.430.2.7 Hospit a .3.925503 l .8 2021-11-28 2021-11-28 Patient Raven, Nieves 1.2.840.1 2099910 Methodi 00:00:00 00:00:[address] 3.430.2.7 Hospit a .3.174530 l .8 2021-11-26 2021-11-26 Telephone Sukh, 1.2.840.1 [id number] 2099 484682 Methodi 00:00:00 00:00:[address] B. 3.430.2.7 Hospit a .3.978414 l .8 2021-11-26 2021-11-26 Telephone Sukh, 1.2.840.1 [id number] 2100 907825 Methodi 00:00:00 00:00:[address] B. 3.430.2.7 Hospit a .3.309732 l .8 2021-11-20 2021-11-20 Office Coby Doan 1.2.840.1 [id number] 435482 2343 Methodi 16:40:00 17:58:15 Visit Judith 82533.1.[address] 3.430.2.7 Hospit a .3.391603 l .8 2021-11-20 2021-11-20 Office Coby Doan 1.2.840.1 [id number] 797244 8449 Methodi 16:40:00 17:58:15 Visit Judith 42811.1.[address] 3.430.2.7 Hospit a .3.791498 l .8 2021-11-20 2021-11-20 Travel 1.2.840.1 1.2.541.682 3152 471595 Methodi 00:00:00 00:00:[address] 3.430.2.7 0.2.7.3.698 Ho spita .3.301438 084.8 l .8 2021-11-20 2021-11-20 Travel 1.2.840.1 1.2.272.647 1994 833914 Methodi 00:00:00 00:00:[address] 3.430.2.7 0.2.7.3.698 Ho spita .3.912885 084.8 l .8 2021-11-19 2021-11-19 Patient Raven, Nieves 1.2.840.1 [id number] 2100 328613 Methodi 00:00:00 00:00:[address] 3.430.2.7 Hospit a .3.693686 l .8 2021-11-19 2021-11-19 Patient Raven, Nieves 1.2.840.1 [id number] 2100 709111 Methodi 00:00:00 00:00:[address] 3.430.2.7 Hospit a .3.425593 l .8 2021-11-16 2021-11-16 Telephone Sukh, 1.2.840.1 859943201 2099 262766 Methodi 00:00:00 00:00:[address] B. 3.430.2.7 Hospit a .3.318718 l .8 2021-11-16 2021-11-16 Telephone Sukh, 1.2.840.1 [id number] 2100 658601 Methodi 00:00:00 00:00:[address] B. 3.430.2.7 Hospit a .3.361622 l .8 2021-11-14 2021-11-14 Patient Raven, Nieves 1.2.840.1 204640607 2100 147308 Methodi 00:00:00 00:00:[address] 3.430.2.7 Hospit a .3.675677 l .8 2021-11-14 2021-11-14 Patient Raven, Nieves 1.2.840.1 [id number] 2100 819645 Methodi 00:00:00 00:00:[address] 3.430.2.7 Hospit a .3.787745 l .8 2021-11-12 2021-11-12 Telephone Rosa Eric 1.2.840.1 [id number] Methodi 00:00:00 00:00:[address] 3.430.2.7 Hospit a .3.369770 l .8 2021-11-12 2021-11-12 Orders Rosa Eric 1.2.840.1 [id number] Methodi 00:00:00 00:00:[address] 3.430.2.7 Hospit a .3.013435 l .8 2021-11-12 2021-11-12 Telephone Rosa Eric 1.2.840.1 [id number] Methodi 00:00:00 00:00:[address] 3.430.2.7 Hospit a .3.903803 l .8 2021-11-12 2021-11-12 Orders Rosa Eric 1.2.840.1 [id number] 35528153 Methodi 00:00:00 00:00:[address] 3.430.2.7 Hospit a .3.864356 l .8 2021-11-08 2021-11-08 Telephone Sukh 1.2.840.1 [id number] 2100 676139 Methodi 00:00:00 00:00:[address] B. 3.430.2.7 Hospit a .3.655899 l .8 2021-11-08 2021-11-08 Orders Sukh 1.2.840.1 310093384 689226 1457 Methodi 00:00:00 00:00:00 Only Marcia 05970.1.[address] B. 3.430.2.7 Hospit a .3.545189 l .8 2021-11-08 2021-11-08 Telephone Sukh, 1.2.840.1 [id number] 2099 585377 Methodi 00:00:00 00:00:[address] B. 3.430.2.7 Hospit a .3.142514 l .8 2021-11-08 2021-11-08 Orders Sukh 1.2.840.1 434310689 020684 9879 Methodi 00:00:00 00:00:00 Only Marcia 83057.1.[address] B. 3.430.2.7 Hospit a .3.481782 l .8 2021-11-07 2021-11-07 Patient Raven, Nieves 1.2.840.1 [id number] 2100 768240 Methodi 00:00:00 00:00:[address] 3.430.2.7 Hospit a .3.336095 l .8 2021-11-07 2021-11-07 Telephone Marciano 1.2.840.1 [id number] 2099 794213 Methodi 00:00:00 00:00:[address] 3.430.2.7 Hospit a .3.175446 l .8 2021-11-07 2021-11-07 Patient Raven, Nieves 1.2.840.1 [id number] 2099 485799 Methodi 00:00:00 00:00:[address] 3.430.2.7 Hospit a .3.245279 l .8 2021-11-07 2021-11-07 Telephone Marciano 1.2.840.1 [id number] 2099 236765 Methodi 00:00:00 00:00:[address] 3.430.2.7 Hospit a .3.741797 l .8 2021-11-05 2021-11-05 Office Skuh 1.2.840.1 383023805 405203 0380 Methodi 11:00:00 12:50:30 Visit Marcia 24388.1.[address] B. 3.430.2.7 Hospit a .3.892255 l .8 2021-11-05 2021-11-05 Office Sukh, 1.2.840.1 [id number] 196925 6965 Methodi 11:00:00 12:50:30 Visit Marcia 19004.1.[address] B. 3.430.2.7 Hospit a .3.866151 l .8 2021-11-05 2021-11-05 Travel 1.2.840.1 1.2.620.906 0619 091963 Methodi 00:00:00 00:00:[address] 3.430.2.7 0.2.7.3.698 Ho spita .3.461930 084.8 l .8 2021-11-05 2021-11-05 Travel 1.2.840.1 1.2.993.918 5425 400600 Methodi 00:00:00 00:00:[address] 3.430.2.7 0.2.7.3.698 Ho spita .3.888538 084.8 l .8 2021-11-02 2021-11-02 Telephone Sukh, 1.2.840.1 [id number] 2099156 Methodi 00:00:00 00:00:[address] B. 3.430.2.7 Hospit a .3.867662 l .8 2021-11-02 2021-11-02 Refill Trisha, 1.2.840.1 [id number] 152586 0415 Methodi 00:00:00 00:00:[address] Sean Moss 76003.1.[address] 3.430.2.7 Hospit a .3.705053 l .8 2021-11-02 2021-11-02 Telephone Sukh, 1.2.840.1 [id number] 2099156 Methodi 00:00:00 00:00:[address] B. 3.430.2.7 Hospit a .3.133787 l .8 2021-11-02 2021-11-02 Refjohanna Trisha, 1.2.840.1 [id number] 503708 1817 Methodi 00:00:00 00:00:00 Sean Moss 31978.1.[address] 3.430.2.7 Hospit a .3.079986 l .8 2021-10-31 2021-10-31 Patient Raven, Nieves 1.2.840.1 [id number] 2099 855060 Methodi 00:00:00 00:00:[address] 3.430.2.7 Hospit a .3.957587 l .8 2021-10-31 2021-10-31 Patient Raven, Nieves 1.2.840.1 [id number] 2099 680817 Methodi 00:00:00 00:00:[address] 3.430.2.7 Hospit a .3.760946 l .8 2021-10-30 2021-10-30 Patient Dylan, 1.2.840.1 04542 Methodi 00:00:00 00:00:00 Outreach Vanessa 09489.1.[address] 3.430.2.7 Hospit a .3.890543 l .8 2021-10-30 2021-10-30 Patient Dylan, 1.2.840.1 38771 Methodi 00:00:00 00:00:00 Outreach Vanessa 00209.1.[address] 3.430.2.7 Hospit a .3.124573 l .8 2021-10-24 2021-10-24 Patient Raven, Nieves 1.2.840.1 2099 690183 Methodi 00:00:00 00:00:[address] 3.430.2.7 Hospit a .3.146678 l .8 2021-10-24 2021-10-24 Patient Raven, Nieves 1.2.840.1 [id number] Methodi 00:00:00 00:00:[address] 3.430.2.7 Hospit a .3.163734 l .8 2021-10-17 2021-10-17 Telephone Sukh, 1.2.840.1 [id number] 2099 313135 Methodi 00:00:00 00:00:[address] B. 3.430.2.7 Hospit a .3.038322 l .8 2021-10-17 2021-10-17 Telephone Sukh, 1.2.840.1 [id number] 2100 807723 Methodi 00:00:00 00:00:[address] B. 3.430.2.7 Hospit a .3.647637 l .8 2021-10-15 2021-10-15 External Stanley, 1.2.840.1 052697352 2100 104617 Methodi 00:00:00 00:00:00 Home Yain 37845.1.[address] Health 3.430.2.7 Hospit a .3.284464 l .8 2021-10-15 2021-10-15 External Stanley, 1.2.840.1 672847370 2100 962197 Methodi 00:00:00 00:00:00 Home Yani 33069.1.[address] Health 3.430.2.7 Hospit a .3.921220 l .8 2021-10-12 2021-10-12 Orders Jacqueline, 1.2.840.1 [id number] 74657 Methodi 00:00:00 00:00:00 Only Cat 47566.1.[address] 3.430.2.7 Hospit a .3.343935 l .8 2021-10-12 2021-10-12 Orders Semsummer, 1.2.840.1 022189260 95097 79980 Methodi 00:00:00 00:00:00 Only Cat 35545.1.[address] 3.430.2.7 Hospit a .3.165998 l .8 2021-10-11 2021-10-11 Patient Raven, Nieves 1.2.840.1 2099727 Methodi 00:00:00 00:00:[address] 3.430.2.7 Hospit a .3.833652 l .8 2021-10-11 2021-10-11 Patient Raevn, Nieves 1.2.840.1 2099727 Methodi 00:00:00 00:00:[address] 3.430.2.7 Hospit a .3.989734 l .8 2021-10-09 2021-10-09 Telephone Sukh, 1.2.840.1 [id number] 2099 798269 Methodi 00:00:00 00:00:[address] B. 3.430.2.7 Hospit a .3.307643 l .8 2021-10-09 2021-10-09 Telephone Sukh, 1.2.840.1 [id number] 2099 906678 Methodi 00:00:00 00:00:[address] B. 3.430.2.7 Hospit a .3.497911 l .8 2021-10-09 2021-10-09 Telephone Sukh, 1.2.840.1 [id number] 2099 318805 Methodi 00:00:00 00:00:[address] B. 3.430.2.7 Hospit a .3.161450 l .8 2021-10-09 2021-10-09 Telephone Sukh, 1.2.840.1 [id number] 2099 814197 Methodi 00:00:00 00:00:[address] B. 3.430.2.7 Hospit a .3.905165 l .8 2021-10-04 2021-10-04 Patient Raven, Nieves 1.2.840.1 2099196 Methodi 00:00:00 00:00:[address] 3.430.2.7 Hospit a .3.393805 l .8 2021-10-04 2021-10-04 Telephone Kami Erica 1.2.840.1 [id number] Methodi 00:00:00 00:00:[address] 3.430.2.7 Hospit a .3.960994 l .8 2021-10-04 2021-10-04 Patient Nieves Carbajal 1.2.840.1 [id number] 2100 715620 Methodi 00:00:00 00:00:[address] 3.430.2.7 Hospit a .3.976776 l .8 2021-10-04 2021-10-04 Telephone HernestoKamia 1.2.840.1 [id number] Methodi 00:00:00 00:00:[address] 3.430.2.7 Hospit a .3.133030 l .8 2021-10-03 2021-10-03 Telephone Sukh, 1.2.840.1 [id number] 2100 525667 Methodi 00:00:00 00:00:[address] B. 3.430.2.7 Hospit a .3.486844 l .8 2021-10-03 2021-10-03 Telephone Sukh, 1.2.840.1 [id number] 2099 679565 Methodi 00:00:00 00:00:[address] B. 3.430.2.7 Hospit a .3.676985 l .8 2021-10-02 2021-10-02 Office Leonid WVTORY 1.2.840.114 102779 35 [facility] 15:30:00 15:31:03 Visit [facility] 350.1.13.10 it y of [place] 4.2.7.2.686 Anurag as SHALONDA?BLEA [id number] [address] [address] MEDICAL OFFICE [facility] 2021-10-02 2021-10-02 Outpatient R LEONID [facility] [id number] [facility] 15:30:00 15:31:03 [facility] 2021-10-02 2021-10-02 Patient Raven, Nieves 1.2.840.1 [id number] Methodi 00:00:00 00:00:[address] 3.430.2.7 Hospit a .3.815107 l .8 2021-10-02 2021-10-02 Telephone Sukh, 1.2.840.1 [id number] Methodi 00:00:00 00:00:[address] B. 3.430.2.7 Hospit a .3.159203 l .8 2021-10-02 2021-10-02 Patient Raven, Nieves 1.2.840.1 [id number] Methodi 00:00:00 00:00:[address] 3.430.2.7 Hospit a .3.439299 l .8 2021-10-02 2021-10-02 Telephone Sukh, 1.2.840.1 [id number] Methodi 00:00:00 00:00:[address] B. 3.430.2.7 Hospit a .3.322210 l .8 2021-10-01 2021-10-01 Patient Dylan, 1.2.840.1 Methodi 00:00:00 00:00:00 Outreach Vanessa 42844.1.[address] 3.430.2.7 Hospit a .3.990266 l .8 2021-10-01 2021-10-01 Patient Dylan, 1.2.840.1 Methodi 00:00:00 00:00:00 Outreach Vanessa 83942.1.[address] 3.430.2.7 Hospit a .3.196678 l .8 2021-09-23 2021-09-28 Inpatient ER [facility] [id number] 22 [facility] 03:10:00 10:36:00 GARRETT 2021-09-23 2021-09-[facility] Quinone[facility] [id number] [facility] 03:10:00 10:36:00 Adriane Monroy, [facility] 2021-09-28 2021-09-28 Telephone Sukh, 1.2.840.1 [id number] [id number] Methodi 00:00:00 00:00:[address] B. 3.430.2.7 Hospit a .3.494482 l .8 2021-09-28 2021-09-28 Telephone Sukh, 1.2.840.1 [id number] 2099833 Methodi 00:00:00 00:00:[address] B. 3.430.2.7 Hospit a .3.397688 l .8 2021-09-27 2021-09-27 Telephone Sukh, 1.2.840.1 [id number] 2099720 Methodi 00:00:00 00:00:[address] B. 3.430.2.7 Hospit a .3.698561 l .8 2021-09-27 2021-09-27 Telephone Sukh, 1.2.840.1 [id number] 2099720 Methodi 00:00:00 00:00:[address] B. 3.430.2.7 Hospit a .3.056779 l .8 2021-09-26 2021-09-26 Telephone Sukh, 1.2.840.1 [id number] 2099662 Methodi 00:00:00 00:00:[address] B. 3.430.2.7 Hospit a .3.583262 l .8 2021-09-26 2021-09-26 Telephone Sukh, 1.2.840.1 [id number] 2099650 Methodi 00:00:00 00:00:[address] B. 3.430.2.7 Hospit a .3.710959 l .8 2021-09-26 2021-09-26 Telephone Sukh, 1.2.840.1 [id number] 2099 187627 Methodi 00:00:00 00:00:[address] B. 3.430.2.7 Hospit a .3.206967 l .8 2021-09-26 2021-09-26 Telephone Sukh, 1.2.840.1 [id number] 2099650 Methodi 00:00:00 00:00:[address] B. 3.430.2.7 Hospit a .3.704513 l .8 2021-09-24 2021-09-24 Telephone Sukh, 1.2.840.1 [id number] 2099442 Methodi 00:00:00 00:00:[address] B. 3.430.2.7 Hospit a .3.274648 l .8 2021-09-24 2021-09-24 Telephone Sukh, 1.2.840.1 [id number] 2099442 Methodi 00:00:00 00:00:[address] B. 3.430.2.7 Hospit a .3.664831 l .8 2021-09-23 2021-09-[address] [facility] [id number] [facility] 09:58:00 10:15:00 Event [facility] 2021-09-23 2021-09-[address] [facility] [id number] [address] 09:00:00 09:30:00 [facility] 2021-09-23 2021-09-23 Travel [facility] [id number] [facility] 00[facility]00 [facility] 2021-09-23 2021-09-23 Telephone Sukh, 1.2.840.1 [id number] 2099 507259 Methodi 00:00:00 00:00:[address] B. 3.430.2.7 Hospit a .3.422375 l .8 2021-09-23 2021-09-23 Telephone Sukh, 1.2.840.1 [id number] 2099378 Methodi 00:00:00 00:00:[address] B. 3.430.2.7 Hospit a .3.067719 l .8 2021-09-21 2021-09-21 Telephone Coby Doan 1.2.840.1 [id number] 2099 433619 Methodi 00:00:00 00:00:[address] 3.430.2.7 Hospit a .3.191533 l .8 2021-09-21 2021-09-21 RefCoby Mackay 1.2.840.1 [id number] 341561 1159 Methodi 00:00:00 00:00:[address] 3.430.2.7 Hospit a .3.415761 l .8 2021-09-21 2021-09-21 Telephone Coby Doan 1.2.840.1 [id number] 2099350 Methodi 00:00:00 00:00:[address] 3.430.2.7 Hospit a .3.852510 l .8 2021-09-21 2021-09-21 RefCoby Mackay 1.2.840.1 [id number] 770866 3405 Methodi 00:00:00 00:00:[address] 3.430.2.7 Hospit a .3.616316 l .8 2021-09-19 2021-09-19 Telephone Sukh, 1.2.840.1 [id number] 2099170 Methodi 00:00:00 00:00:[address] B. 3.430.2.7 Hospit a .3.784581 l .8 2021-09-19 2021-09-19 Telephone Sukh, 1.2.840.1 [id number] 2100 788719 Methodi 00:00:00 00:00:[address] B. 3.430.2.7 Hospit a .3.386142 l .8 2021-09-18 2021-09-18 Telemedici Sukh, 1.2.840.1 [id number] 384 [id number] Methodi 14:45:00 15:00:00 ne Marcia 17216.1.[address] B. 3.430.2.7 Hospit a .3.098847 l .8 2021-09-18 2021-09-18 Telemedici Sukh, 1.2.840.1 [id number] 946 8755202 Methodi 14:45:00 15:00:00 ne Marcia 12926.1.[address] B. 3.430.2.7 Hospit a .3.604280 l .8 2021-09-18 2021-09-18 Telephone Sukh, 1.2.840.1 [id number] 2100 099448 Methodi 00:00:00 00:00:[address] B. 3.430.2.7 Hospit a .3.457986 l .8 2021-09-18 2021-09-18 Telephone Sukh, 1.2.840.1 [id number] 2100 487350 Methodi 00:00:00 00:00:[address] B. 3.430.2.7 Hospit a .3.413896 l .8 2021-09-18 2021-09-18 Travel 1.2.840.1 1.2.085.372 8614 392369 Methodi 00:00:00 00:00:[address] 3.430.2.7 0.2.7.3.698 Ho spita .3.426823 084.8 l .8 2021-09-18 2021-09-18 Telephone Sukh, 1.2.840.1 [id number] 2099103 Methodi 00:00:00 00:00:[address] B. 3.430.2.7 Hospit a .3.209789 l .8 2021-09-18 2021-09-18 Telephone Sukh, 1.2.840.1 [id number] 2099093 Methodi 00:00:00 00:00:[address] B. 3.430.2.7 Hospit a .3.969853 l .8 2021-09-18 2021-09-18 Travel 1.2.840.1 1.2.816.318 5525 738451 Methodi 00:00:00 00:00:[address] 3.430.2.7 0.2.7.3.698 Ho spita .3.510216 084.8 l .8 2021-09-17 2021-09-17 Telephone Yoandy, 1.2.840.1 [id number] Methodi 00:00:00 00:00:[address] 3.430.2.7 Hospit a .3.836469 l .8 2021-09-17 2021-09-17 Orders Yoandy, 1.2.840.1 [id number] 2099 322285 Methodi 00:00:00 00:00:00 Only Hannah 52838.1.[address] 3.430.2.7 Hospit a .3.307711 l .8 2021-09-17 2021-09-17 Telephone Sukh, 1.2.840.1 758313726 2099974 Methodi 00:00:00 00:00:[address] B. 3.430.2.7 Hospit a .3.359995 l .8 2021-09-17 2021-09-17 Telephone Yoandy 1.2.840.1 749080223 94266395 Methodi 00:00:00 00:00:[address] 3.430.2.7 Hospit a .3.998507 l .8 2021-09-17 2021-09-17 Kevin Pitt, 1.2.840.1 [id number] 2099 782463 Methodi 00:00:00 00:00:00 Only Hannah 85005.1.[address] 3.430.2.7 Hospit a .3.194808 l .8 2021-09-17 2021-09-17 Telephone Sukh, 1.2.840.1 [id number] 2099 461967 Methodi 00:00:00 00:00:[address] B. 3.430.2.7 Hospit a .3.437477 l .8 2021-08-03 2021-08-03 Lowell Rhodes, 1.2.840.1 [id number] 303095 0138 Methodi 00:00:00 00:00:00 Sean RXenia 69602.1.[address] 3.430.2.7 Hospit a .3.437445 l .8 2021-08-03 2021-08-03 Refjohanna Rhodes, 1.2.840.1 899783700 369375 9214 Methodi 00:00:00 00:00:[address] 70428.1.[address] 3.430.2.7 Hospit a .3.076481 l .8 2021-07-30 2021-07-30 Telemedici Sukh, 1.2.840.1 [id number] 234 0750855 Methodi 15:00:00 16:12:34 ne Marcia 45667.1.[address] B. 3.430.2.7 Hospit a .3.773197 l .8 2021-07-30 2021-07-30 Telemedici Sukh, 1.2.840.1 455982399 974 8817219 Methodi 15:00:00 16:12:34 ne Marcia 19320.1.[address] B. 3.430.2.7 Hospit a .3.135795 l .8 2021-07-30 2021-07-30 Telephone Sukh, 1.2.840.1 [id number] 2099 028427 Methodi 00:00:00 00:00:[address] B. 3.430.2.7 Hospit a .3.472820 l .8 2021-07-30 2021-07-30 Telephone Sukh, 1.2.840.1 [id number] 2099 399949 Methodi 00:00:00 00:00:[address] B. 3.430.2.7 Hospit a .3.702941 l .8 2021-07-28 2021-07-28 Documentat Iliff, 1.2.840.1 115044929 470 0643808 Methodi 00:00:00 00:00:00 eric Reyes 59874.1.1 [address] t 3.430.2.7 Hospit a .3.654488 l .8 2021-07-28 2021-07-28 Documentat Elsy, 1.2.840.1 252858811 650 9799562 Methodi 00:00:00 00:00:00 eric Reyes 81812.1.1 194 s t 3.430.2.7 Hospit a .3.692562 l .8 2021-07-23 2021-07-23 Telephone Sukh, 1.2.840.1 [id number] 2099 913536 Methodi 00:00:00 00:00:[address] B. 3.430.2.7 Hospit a .3.098216 l .8 2021-07-23 2021-07-23 Telephone Sukh, 1.2.840.1 [id number] 2099 660836 Methodi 00:00:00 00:00:[address] B. 3.430.2.7 Hospit a .3.753648 l .8 2021-07-13 2021-07-13 Orders Olton, 1.2.840.1 257720948 487601 1258 Methodi 00:00:00 00:00:00 Only Albert 67311.1.[address] Foster 3.430.2.7 Hospit a .3.040071 l .8 2021-07-13 2021-07-13 Orders Vickie 1.2.840.1 010659332 937690 0923 Methodi 00:00:00 00:00:00 Only Albert 43461.1.[address] Foster 3.430.2.7 Hospit a .3.499351 l .8 2021-06-27 2021-07-04 Emergency Jami 1.2.840.1 1 56079859 8982642637 Methodi 13:07:00 20:34:00 Albert Johnston [address]1542.1.[address] Terri, Umar 3.430.2.7 Hos ezekiel .3.639119 l .8 2021-06-27 2021-07-04 Emergency Jami 1.2.840.1 1 99171873 0286620709 Methodi 13:07:00 20:34:00 Albert Johnston 13562.1.[address] Terri, Umar 3.430.2.7 Hos ezekiel .3.365504 l .8 2021-06-27 2021-06-27 Documentat Coby Doan 1.2.840.1 953783365 739 3700879 Methodi 00:00:00 00:00:00 ion Judith 36280.1.[address] 3.430.2.7 Hospit a .3.057027 l .8 2021-06-27 2021-06-27 Documentat Coby Doan 1.2.840.1 536063391 858 3986265 Methodi 00:00:00 00:00:00 ion Judith 57099.1.[address] 3.430.2.7 Hospit a .3.189769 l .8 2021-06-22 2021-06-22 Maira Landa 1.2.840.1 [id number] 21 [id number] Methodi 00:00:00 00:00:[address] 3.430.2.7 Hospit a .3.388128 l .8 2021-06-222021-06-22 Refill Chen, Maira 1.2.840.1 [id number] 21 [id number] Methodi 00:00:00 00:00:[address] 3.430.2.7 Hospit a .3.778352 l .8 2021-06-18 2021-06-18 Refill Coby Doan 1.2.840.1 421347909 865932 5948 Methodi 00:00:00 00:00:[address] 3.430.2.7 Hospit a .3.454273 l .8 2021-06-18 2021-06-18 Refill Abby Coby 1.2.840.1 680586258 993606 0376 Methodi 00:00:00 00:00:[address] 3.430.2.7 Hospit a .3.179504 l .8 2021-06-15 2021-06-15 Refill Chen, Maira 1.2.840.1 [id number] 21 [id number] Methodi 00:00:00 00:00:[address] 3.430.2.7 Hospit a .3.436461 l .8 2021-06-15 2021-06-15 Refill Chen, Maira 1.2.840.1 [id number] 21 04942711 Methodi 00:00:00 00:00:[address] 3.430.2.7 Hospit a .3.313388 l .8 2021-06-15 2021-06-15 Refill Chen, Maira 1.2.840.1 [id number] 21 [id number] Methodi 00:00:00 00:00:[address] 3.430.2.7 Hospit a .3.740479 l .8 2021-06-15 2021-06-15 Refill Chen, Maira 1.2.840.1 [id number] 21 [id number] Methodi 00:00:00 00:00:[address] 3.430.2.7 Hospit a .3.990497 l .8 2021-06-06 2021-06-06 Remote Semones, 1.2.840.1 01748417710031 Methodi 00:00:00 00:00:00 Monitoring Cat 59586.1.1 713 s t 3.430.2.7 Hospit a .3.784572 l .8 2021-06-06 2021-06-06 Remote Semones, 1.2.840.1 31 Methodi 00:00:00 00:00:00 Monitoring Cat 84776.1.1 713 s t 3.430.2.7 Hospit a .3.997273 l .8 2021-06-05 2021-06-05 Office Coby Doan 1.2.840.1 [id number] 742763 6850 Methodi 14:00:00 14:20:00 Visit Judith 10021.1.[address] 3.430.2.7 Hospit a .3.961315 l .8 2021-06-05 2021-06-05 Office Coby Doan 1.2.840.1 [id number] 916427 2107 Methodi 14:00:00 14:20:00 Visit Judith 14856.1.[address] 3.430.2.7 Hospit a .3.202819 l .8 2021-06-05 2021-06-05 Travel 1.2.840.1 1.2.122.503 6101 868297 Methodi 00:00:00 00:00:[address] 3.430.2.7 0.2.7.3.698 Ho spita .3.040250 084.8 l .8 2021-06-05 2021-06-05 Outpatient COBY DOAN [facility] [id number] 541 [place] 00:00:00 00:00:[address] 2021-06-05 2021-06-05 Travel 1.2.840.1 1.2.376.669 3367 417116 Methodi 00:00:00 00:00:[address] 3.430.2.7 0.2.7.3.698 Ho spita .3.788193 084.8 l .8 2021-05-25 2021-05-25 Refill Maira Chen 1.2.840.1 [id number] 21 [id number] Methodi 00:00:00 00:00:[address] 3.430.2.7 Hospit a .3.851320 l .8 2021-05-25 2021-05-25 Refill Maira Chen 1.2.840.1 [id number] 21 [id number] Methodi 00:00:00 00:00:[address] 3.430.2.7 Hospit a .3.431385 l .8 2021-05-11 2021-05-11 Refill Coby Doan 1.2.840.1 [id number] 565526 7299 Methodi 00:00:00 00:00:[address] 3.430.2.7 Hospit a .3.491834 l .8 2021-05-11 2021-05-11 Refjohanna Hector 1.2.840.1 132638925 863881 7973 Methodi 00:00:00 00:00:[address] 3.430.2.7 Hospit a .3.477688 l .8 2021-05-11 2021-05-11 Coby Mandujano 1.2.840.1 [id number] 038682 7789 Methodi 00:00:00 00:00:[address] 3.430.2.7 Hospit a .3.350561 l .8 2021-05-11 2021-05-11 Lowell Hector 1.2.840.1 722490415 540948 8282 Methodi 00:00:00 00:00:[address] 3.430.2.7 Hospit a .3.196436 l .8 2021-05-10 2021-05-10 Dede Luz 1.2.840.1 [id number] 2100 869485 Methodi 00:00:00 00:00:[address] B. 3.430.2.7 Hospit a .3.881297 l .8 2021-05-10 2021-05-10 Telephone Sukh, 1.2.840.1 [id number] 2100 215397 Methodi 00:00:00 00:00:[address] B. 3.430.2.7 Hospit a .3.862329 l .8 2021-05-04 2021-05-04 Refill Sukh, 1.2.840.1 439696464 711383 2683 Methodi 00:00:00 00:00:[address] B. 3.430.2.7 Hospit a .3.101774 l .8 2021-05-04 2021-05-04 Refill Trisha, 1.2.840.1 384395135 903512 5871 Methodi 00:00:00 00:00:[address] Sean Moss 63652.1.[address] 3.430.2.7 Hospit a .3.591210 l .8 2021-05-04 2021-05-04 Refill Sukh, 1.2.840.1 492300874 030018 4858 Methodi 00:00:00 00:00:[address] B. 3.430.2.7 Hospit a .3.140270 l .8 2021-05-04 2021-05-04 Refill Rhodes, 1.2.840.1 [id number] 299188 9109 Methodi 00:00:00 00:00:[address] RX[address]3669.1.[address] 3.430.2.7 Hospit a .3.798770 l .8 2021-05-03 2021-05-03 Office Sukh, 1.2.840.1 186084269 739108 6232 Methodi 14:30:00 15:02:40 Visit Marcia 25451.1.[address] B. 3.430.2.7 Hospit a .3.323084 l .8 2021-05-03 2021-05-03 Office Sukh, 1.2.840.1 104785803 287522 5812 Methodi 14:30:00 15:02:40 Visit Marcia 85367.1.[address] B. 3.430.2.7 Hospit a .3.397112 l .8 2021-05-03 2021-05-03 Travel 1.2.840.1 1.2.630.497 1209 715381 Methodi 00:00:00 00:00:[address] 3.430.2.7 0.2.7.3.698 Ho spita .3.129431 084.8 l .8 2021-05-03 2021-05-03 Travel 1.2.840.1 1.2.714.208 7812 743589 Methodi 00:00:00 00:00:[address] 3.430.2.7 0.2.7.3.698 Ho spita .3.101754 084.8 l .8 2021-04-25 2021-04-25 Remote Semones, 1.2.840.1 76139400010085 Methodi 00:00:00 00:00:00 Monitoring Cat 74016.1.1 511 s t 3.430.2.7 Hospit a .3.170343 l .8 2021-04-25 2021-04-25 Remote Semones, 1.2.840.1 158895149100 Methodi 00:00:00 00:00:00 Monitoring Cat 68349.1.1 511 s t 3.430.2.7 Hospit a .3.812313 l .8 2021-04-13 2021-04-13 Kevin Pitt 1.2.840.1 [id number] 2099 488784 Methodi 00:00:00 00:00:00 Only Hannah 48366.1.[address] 3.430.2.7 Hospit a .3.253299 l .8 2021-04-13 2021-04-13 Kevin Pitt, 1.2.840.1 793699261 2100 733154 Methodi 00:00:00 00:00:00 Only Hannah 02796.1.[address] 3.430.2.7 Hospit a .3.291679 l .8 2021-04-03 2021-04-03 Telephone Iarafaelarino, 1.2.840.1 [id number] 2 [id number] Methodi 00:00:00 00:00:[address] 3.430.2.7 Hospit a .3.465879 l .8 2021-04-03 2021-04-03 Telephone Iammarino, 1.2.840.1 [id number] 2 [id number] Methodi 00:00:00 00:00:[address] 3.430.2.7 Hospit a .3.506827 l .8 2021-04-02 2021-04-02 Telephone Iammarino, 1.2.840.1 [id number] 2 [id number] Methodi 00:00:00 00:00:[address] 3.430.2.7 Hospit a .3.636280 l .8 2021-04-02 2021-04-02 Telephone Iammarino, 1.2.840.1 [id number] 2 [id number] Methodi 00:00:00 00:00:[address] 3.430.2.7 Hospit a .3.690783 l .8 2021-03-30 2021-03-30 Telephone Husain, 1.2.840.1 [id number] 595 8705723 Methodi 00:00:00 00:00:[address] 3.430.2.7 Hospit a .3.645975 l .8 2021-03-30 2021-03-30 Telephone Husain, 1.2.840.1 [id number] 773 9065361 Methodi 00:00:00 00:00:[address] 3.430.2.7 Hospit a .3.781815 l .8 2021-03-28 2021-03-28 Office Sukh, 1.2.840.1 [id number] 590156 9912 Methodi 08:30:00 09:14:58 Visit Marcia 87311.1.[address] B. 3.430.2.7 Hospit a .3.447327 l .8 2021-03-28 2021-03-28 Office Sukh, 1.2.840.1 144305753 369923 3149 Methodi 08:30:00 09:14:58 Visit Marcia 58678.1.[address] B. 3.430.2.7 Hospit a .3.704811 l .8 2021-03-27 2021-03-27 Travel 1.2.840.1 1.2.744.771 5335 768040 Methodi 00:00:00 00:00:[address] 3.430.2.7 0.2.7.3.698 Ho spita .3.119898 084.8 l .8 2021-03-27 2021-03-27 Telephone Sukh, 1.2.840.1 [id number] 2099 560563 Methodi 00:00:00 00:00:[address] B. 3.430.2.7 Hospit a .3.498301 l .8 2021-03-27 2021-03-27 Coby Mandujano 1.2.840.1 077836550 404352 2392 Methodi 00:00:00 00:00:[address] 3.430.2.7 Hospit a .3.428186 l .8 2021-03-27 2021-03-27 Travel 1.2.840.1 1.2.034.759 7864 394447 Methodi 00:00:00 00:00:[address] 3.430.2.7 0.2.7.3.698 Ho spita .3.774545 084.8 l .8 2021-03-27 2021-03-27 Telephone Sukh, 1.2.840.1 [id number] 2100 666954 Methodi 00:00:00 00:00:[address] B. 3.430.2.7 Hospit a .3.932716 l .8 2021-03-27 2021-03-27 Refill Abby Coby 1.2.840.1 292366892 754025 7365 Methodi 00:00:00 00:00:[address] 3.430.2.7 Hospit a .3.105676 l .8 2021-03-21 2021-03-21 Orders Sukh, 1.2.840.1 974707066 446653 9791 Methodi 00:00:00 00:00:00 Only Marcia 19319.1.[address] B. 3.430.2.7 Hospit a .3.783055 l .8 2021-03-20 2021-03-20 Telephone Micheline-Andrea 1.2.840.1 [id number] Methodi 00:00:00 00:00:00 ris, Barbara 94024.1.1 099 s t 3.430.2.7 Hospit a .3.819743 l .8 2021-03-19 2021-03-19 Telephone Micheline-Andrea 1.2.840.1 [id number] Methodi 00:00:00 00:00:00 ris, Barbara 45754.1.1 578 s t 3.430.2.7 Hospit a .3.201287 l .8 2021-03-19 2021-03-19 Telephone Micheline-Andrea 1.2.840.1 [id number] Methodi 00:00:00 00:00:00 ris, Barbara 02907.1.1 931 s t 3.430.2.7 Hospit a .3.178766 l .8 2021-03-16 2021-03-16 Refill Micheline-Andrea 1.2.840.1 [id number] Methodi 00:00:00 00:00:00 Barbara ray 83063.1.1 699 s t 3.430.2.7 Hospit a .3.036805 l .8 2021-03-16 2021-03-16 [facility] [place] 1.2.840.1 [id number] Methodi 00:00:00 00:00:00 Barbara ray 25481.1.1 162 s t 3.430.2.7 Hospit a .3.388796 l .8 2021-03-15 2021-03-15 [facility], 1.2.840.1 [id number] 162 Methodi 00:00:00 00:00:00 Monitoring Cat 44964.1.1 038 s t 3.430.2.7 Hospit a .3.322590 l .8 2021-03-03 2021-03-03 Refjohanna Luz 1.2.840.1 442550187 923806 4293 Methodi 00:00:00 00:00:[address] B. 3.430.2.7 Hospit a .3.854967 l .8 2021-03-02 2021-03-02 Office Coby Doan 1.2.840.1 [id number] 948220 4567 Methodi 14:00:00 15:08:22 Visit Judith 06548.1.[address] 3.430.2.7 Hospit a .3.539681 l .8 2021-03-02 2021-03-02 Travel 1.2.840.1 1.2.022.131 7426 274784 Methodi 00:00:00 00:00:[address] 3.430.2.7 0.2.7.3.698 Ho spita .3.502658 084.8 l .8 2021-02-18 2021-02-18 Refill Coby Doan 1.2.840.1 507977417 065281 6303 Methodi 00:00:00 00:00:[address] 3.430.2.7 Hospit a .3.435712 l .8 2021-02-17 2021-02-17 Refill Coby Doan 1.2.840.1 793549159 883983 3134 Methodi 00:00:00 00:00:[address] 3.430.2.7 Hospit a .3.683100 l .8 2021-02-10 2021-02-10 Refill Trisha 1.2.840.1 334848534 746110 8393 Methodi 00:00:00 00:00:[address] Sean Moss 91944.1.[address] 3.430.2.7 Hospit a .3.695805 l .8 2021-02-05 2021-02-05 Refill Trisha 1.2.840.1 354692486 452516 1115 Methodi 00:00:00 00:00:[address] Sean Moss [address]335.1.[address] 3.430.2.7 Hospit a .3.799229 l .8 2021-01-29 2021-01-29 Telephone [place], 1.2.840.1 [id number] 21 [id number] Methodi 00:00:00 00:00:[address] 3.430.2.7 Hospit a .3.147970 l .8 2021-01-29 2021-01-29 Remote Semsummer, 1.2.840.1 932075356 Methodi 00:00:00 00:00:00 Monitoring Cat 54256.1.1 543 s t 3.430.2.7 Hospit a .3.564573 l .8 2021-01-12 2021-01-12 Outpatient MAIRA CHEN [facility] 255 [id number] [place] 00:00:00 00:00:[address] 2021-01-03 2021-01-03 Outpatient [facility] [id number] 298 [place] 00:00:00 00:00:00 JAVIER [address] 2021-01-03 2021-01-03 Outpatient [facility] [id number] 298 [place] 00:00:00 00:00:00 JAVIER [address] 2021-01-01 2021-01-01 Office TRINH Pantoja 6400 1.2.371.419 0603 69104 11:18:17 12:10:[address] 350.1.13.58 9.2.7.2.686 882.3744027 1 2021-01-01 2021-01-01 Office TRINH Pantoja 6400 1.2.737.447 5041 71358 [place] 11:18:17 12:10:[address] 350.1.13.58 Health 9.2.7.2.686 876.0180602 1 2020-12-27 2020-12-27 Telephone Scarlett [facility] 1.2.840.114 124 326722 [place] 00:00:00 00:00:00 Viraj SUGAR 350.1.13.[address] [facility] 9.2.7.2.686 [address] 7 759.9399820 AND 1 WOMENS 2020-11-10 2020-11-10 Outpatient COBY DOAN [facility] [id number] 158 [place] 00:00:00 00:00:[address] 2020-11-01 2020-11-01 Outpatient SUKH [facility] [id number] 500 [place] 00:00:00 00:00:00 MARCIA 504 Meth zafar 2020-10-23 2020-10-27 Inpatient AIXA [facility] 064 [id number] 83 [place] 00:00:00 00:00:00 PAULY [address] 2020-09-22 2020-09-22 Outpatient COBY DOAN [facility] [id number] 729 [place] 00:00:00 00:00:[address] 2020-08-29 2020-09-11 Inpatient AIXA [facility] [id number] 88 [place] 00:00:00 00:00:00 PAULY [address] 2020-08-25 2020-08-31 Outpatient COBY DOAN [facility] [id number] 466 [place] 00:00:00 00:00:[address] 2020-08-15 2020-08-19 Inpatient XU [facility] 064 [id number] 17 [place] 00:00:00 00:00:00 MARIAH [address] 2020-07-28 2020-07-28 Outpatient COBY DOAN [facility] [id number] 629 [place] 00:00:00 00:00:[address] 2020-07-28 2020-07-28 Outpatient COBY DOAN [facility] [id number] 152 [place] 00:00:00 00:00:[address] 2020-07-14 2020-07-14 Outpatient MAIRA CHEN [facility] 949 [id number] [place] 00:00:00 00:00:[address] 2020-07-13 2020-07-13 Outpatient SUKH, [facility] [id number] 552 [place] 00:00:00 00:00:[address] MARCIA [address] 2020-07-13 2020-07-13 Outpatient MARIA EUGENIA [facility] [id number] [place] 00:00:00 00:00:00 SIRAYA [address] 2020-07-12 2020-07-12 Outpatient [facility] [id number] 315 [place] 00:00:00 00:00:[address] 2020-05-26 2020-05-26 Outpatient COBY DOAN [facility] [id number] 938 [place] 00:00:00 00:00:[address] 2020-05-23 2020-05-23 Outpatient DELAFLOR-SA [facility] 215 [id number] [place] 00:00:00 00:00:00 NTAANA, [address] 2020-05-08 2020-05-18 Inpatient KEENAN, [facility] 060 [id number] 54 [place] 00:00:00 00:00:00 ANETTE [address] 2020-05-05 2020-05-05 Outpatient COBY DOAN [facility] [id number] 077 [place] 00:00:00 00:00:[address] 2020-05-03 2020-05-03 Outpatient SUKH [facility] [id number] 662 [place] 00:00:00 00:00:00 MARCIA [address] 2020-04-26 2020-04-26 Outpatient ALIDA, [facility] 476 [id number] 429 [place] 00:00:00 00:00:00 ASHRITH [address] 2020-04-24 2020-04-24 Outpatient COBY DOAN [facility] [id number] 918 [place] 00:00:00 00:00:[address] 2020-04-14 2020-04-14 Outpatient COBY DOAN [facility] [id number] 001 [place] 00:00:00 00:00:[address] 2020-04-03 2020-04-03 Outpatient Daniel_T VFP VFP [id number] 03-26 [facility] 01:57:00 01:57:00 630655 Family Practic e 2020-03-17 2020-03-17 Outpatient COBY DOAN [facility] [id number] 022 [place] 00:00:00 00:00:[address] 2020-03-09 2020-03-09 Outpatient DELAFLOR-SA [facility] [id number] [place] 00:00:00 00:00:00 NTAANA, [address] 2020-02-24 2020-03-02 Inpatient COBY DOAN [facility] 021 [id number] 94 [place] 00:00:00 00:00:[address] 2020-02-23 2020-02-23 Outpatient COBY DOAN [facility] [id number] 552 [place] 00:00:00 00:00:[address] 2020-02-11 2020-02-11 Outpatient COBY DOAN [facility] [id number] 041 [place] 00:00:00 00:00:[address] 2020-02-04 2020-02-04 Outpatient SUKH [facility] [id number] 515 [place] 00:00:00 00:00:00 MARCIA [address] 2020-01-20 2020-01-25 Inpatient SAVANA [facility] 064 [id number] 86 [place] 00:00:00 00:00:00 AMITKUMAR [address] 2020-01-12 2020-01-12 Outpatient GUSTAVO MAIRA [facility] [id number] [place] 00:00:00 00:00:[address] 2019-12-31 2019-12-31 Outpatient COBY DOAN [facility] [id number] 751 [place] 00:00:00 00:00:[address] 2019-12-31 2019-12-31 Outpatient COBY DOAN [facility] [id number] 617 [place] 00:00:00 00:00:00 377 Method i 2019-12-27 2019-12-27 Outpatient TRISHA [facility] [id number] 450 [place] 00:00:00 00:00:00 SEAN 736 Method i 2019-12-17 2019-12-18 Outpatient BRITTANY, [facility] 213 [id number] 361 [place] 00:00:00 00:00:00 MERCY 789 Method i 2019-11-18 2019-11-18 Outpatient KELVIN, [facility] 582 [id number] 293 [place] 00:00:00 00:00:00 MAHWASH 944 Method i 2019-11-04 2019-11-04 Outpatient SUKH, [facility] [id number] 930 [place] 00:00:00 00:00:00 MARCIA 563 Meth zafar 2019-10-19 2019-10-19 Outpatient SUKH [facility] [id number] 794 [place] 00:00:00 00:00:00 MARCIA 452 Meth zafar 2019-09-17 2019-09-17 Outpatient COBY DOAN [facility] [id number] 175 [place] 00:00:00 00:00:00 547 Method i 2019-09-02 2019-09-09 Inpatient AIXA, [facility] 060 [id number] 04 [place] 00:00:00 00:00:00 PAULY [address] Results Test Description Test Time Test Comments Results Result Comments Source Basic metabolic panel 2022-03-22 14:51:00 Test Item Value Reference Range Interpretation Comme nts Glucose (test code = 129 mg/dL 65-99 H Fastin g reference 2345-7) interval For so meone without known d iabetes, a glucosevalue >125 mg/dL indicates that they may havedi abetes and this should be confirmed with afollow-up test . BUN (test code = 3094-0) 135 mg/dL 7-25 H Re sults verified by repeat analysis on dilution. Creatinine (test code = 3.89 mg/dL 0.7-1.22 H Veri fied by repeat 2160-0) analysis. eGFR (test code = 8257) See_Comment L The eGFR is based on the CKD-EPI 202 1 equation. To ca lculate the new eGFR fr om a previous Creati nine or Cystatin Cresul t, go to https://www.kid celso.org/ professionals/k doqi/gfr %5Fcalculator [Automated mess age] The system which ge nerated this result tra nsmitted reference range : > OR = 60 mL/min/1.73m 2. The reference range was not used to interpr et this result as normal/abnormal . BUN/creatinine ratio See_Comment H [Autom ated message] (test code = 3097-3) The sys tem which generated this result transmitted ref erence range: 6 - 22 ( calc). The reference r jeremy was not used to int erpret this result as normal/abnormal . Sodium (test code = 137 mmol/L 759-075 7011-2) Potassium (test code = 3.2 mmol/L 3.5-5.3 L 2823-3) Chloride (test code = 89 mmol/L 98-110 L 2075-0) CO2 (test code = 8-9) 37 mmol/L 20-32 H Calcium (test code = 9.1 mg/dL 8.6-10.3 21146-9) RAC (test code = RAC) Performing Organization Information: Site ID: A Name: [facility] Address: [address] [place] [id number] Director: Rajan Yates Lab Interpretation (test Abnormal code = 30674-6) [place] [address], [id number] 14:51:00 Test Item Value Reference Range Interpretation Comments T4, free (test code 1.6 ng/dL 0.8-1.8 = 3024-7) RAC (test code = Performing Organization RAC) Information: Site ID: [facility] Name: [facility] Address: [address] [place] [id number] Director: Rajan [facility]ates [facility] stimulating [id number] 14:51:00 Test Item Value Reference Range Interpretation Comments TSH (test code = See_Comment H [Automated 3016-3) message] The system which generated this result transmitted reference range : 0.40 - 4.50 mIU/L. The reference range was not used to interpret this result as normal/abnormal . RAC (test code = Performing RAC) Organization Information: Site ID: [facility]GA Name: [facility] Address: [address] [place] [address] Director: Rajan Yates Lab Interpretation Abnormal (test code = 98735-2) [facility] with platelet and [id number] 14:51:00 Test Item Value Reference Range Interpretation Comments WBC (test code = See_Comment [Automated 6690-2) message] The system which generated this result transmitted reference range : 3.8 - 10.8 Thousand/uL. Th e reference range was not used to interpret this result as normal/abnormal . RBC (test code = See_Comment L [Automated 789-8) message] The system which generated this result transmitted reference range : 4.20 - 5.80 Million/uL. The reference range was not used to interpret this result as normal/abnormal . HGB (test code = 11.7 g/dL 13.2-17.1 L 718-7) HCT (test code = 36.9 % 38.5-50 L 4544-3) MCV (test code = 88.7 fL 80-100 787-2) MCH (test code = 28.1 pg 27-33 785-6) MCHC (test code = 31.7 g/dL 32-36 L 786-4) RDW (test code = 17.1 % 11-15 H 788-0) Platelet count (test See_Comment [Autom ated code = 777-3) message] The system which generated this result transmitted reference range : 140 - 400 Thousand/uL. Th e reference range was not used to interpret this result as normal/abnormal . MPV (test code = 10.3 fL 7.5-12.5 776-5) Neutrophils, See_Comment [Automated absolute (test code message] The = 751-8) system which generated this result transmitted reference range : 1,500 - 7,800 cells/uL. The reference range was not used to interpret this result as normal/abnormal . Lymphocytes, See_Comment H [Automated absolute (test code message] The = 731-0) system which generated this result transmitted reference range : 850 - 3,900 cells/uL. The reference range was not used to interpret this result as normal/abnormal . Monocytes, absolute See_Comment [Automa julien (test code = 742-7) message] The system which generated this result transmitted reference range : 200 - 950 cells/uL. The reference range was not used to interpret this result as normal/abnormal . Eosinophils, See_Comment [Automated absolute (test code message] The = 711-2) system which generated this result transmitted reference range : 15 - 500 cells/uL. The reference range was not used to interpret this result as normal/abnormal . Basophils, absolute See_Comment [Automa julien (test code = 704-7) message] The system which generated this result transmitted reference range : 0 - 200 cells/u L. The reference range was not used to interpr et this result as normal/abnormal . Neutrophils (test 50.7 % code = 770-8) Lymphocytes (test 40.6 % code = 736-9) Monocytes (test code 7.0 % = 5905-5) Eosinophils (test 1.3 % code = 713-8) Basophils + RC (test 0.4 % code = 706-2) RAC (test code = Performing RAC) Organization Information: Site ID: RGA Name: [facility] Address: [address] [place] [phone] Director: Rajan Yates Lab Interpretation Abnormal (test code = 56433-6) [place] [address] [id number] 01:18:01 Test Item Value Reference Range Interpretation Comments Ventricular rate (test code = 253) Atrial rate (test code = 255) AZ interval (test code = 266) QRSD interval (test code = 260) QT interval (test code = 264) QTC interval (test code = 265) QRS axis 1 (test code = 268) T wave axis (test code = 270) EKG impression (test AV dual-paced code = 273) rhythm-Biventricular pacemaker detected-Abnormal ECG-In automated comparison with ECG of 20-NOV-2021 16:15,-Vent. rate has decreased BY 2 BPM- [place] [address] [id number] 01:51:03 Test Item Value Reference Range Interpretation Comments Ventricular rate (test code = 253) Atrial rate (test code = 255) AZ interval (test code = 266) QRSD interval [...] Chiu MD ([id number]) on 11/20/2021 8:50:59 PM [facility] 12 [id number] 01:51:03 Test Item Value Reference Range Interpretation Comments Ventricular rate (test code = 253) Atrial rate (test code = 255) AZ interval (test code = 266) QRSD interval [...] Chiu MD ([id number]) on 11/20/2021 8:50:59 PM [facility] metabolic [id number] 09:45:00 Test Item Value Reference Interpretation Comments [...] EGFR Non-Afr. See_Comment L [Automated me ssage] Malagasy (test code The syst em which = 3052) generated this result transmit julien reference range : > OR = 60 mL/min/1.73m2. The reference range was not used to interpret this result as normal/abnormal . EGFR See_Comment L [Automated mes asya] Malagasy (test code The syst em which = 1093) generated this result transmit julien reference range [...] . Sodium (test code = 138 mmol/L 085-233 7795-2) Potassium (test 4.5 mmol/L 3.5-5.3 code = 2823-3) Chloride (test code 99 mmol/L 98-110 = 2075-0) CO2 (test code = 28 mmol/L 20-32 8-9) Calcium (test code 7.5 mg/dL 8.6-10.3 L = 64092-4) RAC (test code = Performing RAC) Organization Information: Site ID: [facility] Name: [facility] Address: [address] [place] [address] Director: Rajan Yates Lab Interpretation Abnormal (test code = 33578-1) [facility] [id number] 09:45:00 Test Item Value Reference Range Interpretation Comments T4, free (test code 1.2 ng/dL 0.8-1.8 = 3024-7) RAC (test code = Performing Organization RAC) Information: Site ID: [facility] Address: [address] [place] [address] Director: Rajan Yates [facility] CampusThyroid stimulating [id number] 09:45:00 Test Item Value Reference Range Interpretation Comments TSH (test code = See_Comment H [Automated 3016-3) message] The system which generated this result transmitted reference range : 0.40 - 4.50 mIU/L. The reference range was not used to interpret this result as normal/abnormal . RAC (test code = Performing RAC) Organization Information: Site ID: A Name: [facility] Address: [address] [place] [address] Director: Rajan Yates Lab Interpretation Abnormal (test code = 00652-5) [facility] CampusUric acid [id number] 09:45:00 Test Item Value Reference Range Interpretation Comments Uric acid (test code 13.2 mg/dL 4.0-8.0 H Therape utic = 3084-1) target for gout patients: <6.0 mg/dL RAC (test code = Performing RAC) Organization Information: Site ID: [facility] Name: [facility] Address: [address] [place] [id number] Director: Rajan Yates Lab Interpretation Abnormal (test code = 62952-9) [facility] with platelet and [id number] 09:45:00 Test Item Value Reference Interpretation Comments Range WBC (test code = See_Comment [Automated message] 3290-2) The system ID90T generated this result transmitted ref erence range: 3.8 - 10 .8 Thousand/uL. Th e reference range was not used to int erpret this result as normal/abnormal . RBC (test code = See_Comment L [Automated message] 789-8) The system ID90T generated this result transmitted ref erence range: [...] result as normal/abnormal . Lymphocytes, See_Comment [Automated DailyBurn] absolute (test code The syst em which = 731-0) generated this result transmitted ref erence range: 850 - 3, 900 cells/uL. The reference range was not used to int erpret this result as normal/abnormal . Monocytes, absolute See_Comment [Automa Synup message] (test code = 742-7) The syst em which generated this result transmitted ref erence range: 200 - 95 0 cells/uL. The reference range was not used to int erpret this result as normal/abnormal . Eosinophils, See_Comment [Automated DailyBurn] absolute (test code The syst em which = 711-2) generated this result transmitted ref erence range: 15 - 500 cells/uL. The reference range was not used to int erpret this result as normal/abnormal . Basophils, absolute See_Comment [Automa Synup message] (test code = 704-7) The syst [...] RAC) Organization Information: Site ID: RGA [facility] Address: [address] [place] [address] Director: Rajan Yates Lab Interpretation Abnormal (test code = 90231-3) [facility] metabolic [id number] 09:45:00 Test Item Value Reference Interpretation Comments [...] EGFR Non-Afr. See_Comment L [Automated me ssage] Malagasy (test code The syst em which = 1305) generated this result transmit julien reference range : > OR = 60 mL/min/1.73m2. The reference range was not used to interpret this result as normal/abnormal . EGFR See_Comment L [Automated mes asya] Malagasy (test code The syst em which = [...] . Sodium (test code = 138 mmol/L 070-781 3211-2) Potassium (test 4.5 mmol/L 3.5-5.3 code = 2823-3) Chloride (test code 99 mmol/L 98-110 = 5-0) CO2 (test code = 28 mmol/L 20-32 2027-) Calcium (test code 7.5 mg/dL 8.6-10.3 L = 34835-0) RAC (test code = Performing RAC) Organization Information: Site ID: [facility] Name: [facility] Address: [address] [place] [address] Director: Rajan Yates Lab Interpretation Abnormal (test code = 87059-0) [place] [address], xyhm9812-95-31 09:45:00 Test Item Value Reference Range Interpretation Comments T4, free (test code 1.2 ng/dL 0.8-1.8 = 3024-7) RAC (test code = Performing Organization RAC) Information: Site ID: [facility]: [facility] Address: [address] [place] [address] Director: Rajan Yates [facility] CampusThyroid stimulating kgdcucc1201-18-44 09:45:00 Test Item Value Reference Range Interpretation Comments TSH (test code = See_Comment H [Automated 3016-3) message] The system which generated this result transmitted reference range : 0.40 - 4.50 mIU/L. The reference range was not used to interpret this result as normal/abnormal . RAC (test code = Performing RAC) Organization Information: Site ID: A Name: [facility] Lab Address: [address] [place] [address] Director: Rajan Yates Lab Interpretation Abnormal (test code = 37572-0) [facility] CampusUric acid vimyz0596-19-29 09:45:00 Test Item Value Reference Range Interpretation Comments Uric acid (test code 13.2 mg/dL 4.0-8.0 H Therape utic = 3084-1) target for gout patients: <6.0 mg/dL RAC (test code = Performing RAC) Organization Information: Site ID: [facility] Name: [facility] [employer] [facility] Lab Address: [address] [place] [address] Director: Rajan Yates Lab Interpretation Abnormal (test code = 96420-9) [facility] CampusCB with platelet and wdicngfzihsb4610-16-54 09:45:00 Test Item Value Reference Interpretation Comments Range WBC (test code = See_Comment [Automated message] 7355-2) The system ID90T generated this result transmitted ref erence range: 3.8 - 10 .8 Thousand/uL. Th e reference range was not used to int erpret this result as normal/abnormal . RBC (test code = See_Comment L [Automated message] 231-8) The system ID90T generated this result transmitted ref erence range: [...] 11.0-15.0 H 788-0) Platelet count See_Comment [Automated AlterGeo essage] (test code = 777-3) The syst em which generated this result transmitted ref erence range: 140 - 40 0 Thousand/uL. Th e reference range was not used to int erpret this result as normal/abnormal . MPV (test code = 9.9 fL 7.5-12.5 776-5) Neutrophils, See_Comment [Automated DailyBurn] absolute (test code The syst em which = 751-8) generated this result transmitted ref erence range: 1,500 - 7,800 cells/uL. The reference range was not used to int erpret this result as normal/abnormal . Lymphocytes, See_Comment [Automated DailyBurn] absolute (test code The syst em which [...] result as normal/abnormal . Eosinophils, See_Comment [Automated DailyBurn] absolute (test code The syst em which [...] RAC) Organization Information: Site ID: RGA Name: [facility] Address: [address] [place] [address] Director: Rajan Yates Lab Interpretation Abnormal (test code = 14765-5) [facility] guars2896-[facility]-34 09:45:00 Test Item Value Reference Range Interpretation Comments Uric acid (test code 13.2 mg/dL 4-8 H Therape utic = 3084-1) target for gout patients: <6.0 mg/dL RAC (test code = Performing RAC) Organization Information: Site ID: RGA Name: [facility] Address: [address] [place] [address] Director: Rajan Yates Lab Interpretation Abnormal (test code = 13586-0) [facility] [id number] 10:00:39 Test Item Value Reference Range Interpretation Comments CULTURE (BEAKER) (test No growth in 5 days code = 1095) Blood Culture - Routine (Left Venipuncture)2021-09-28 10:00:38 Test Item Value Reference Range Interpretation Comments Result (test code = No growth in 5 days 6463-4) [facility] [id number] 10:00:38 Test Item Value Reference Range Interpretation Comments CULTURE (BEAKER) (test No growth in 5 days code = 1095) Dyksjhojd0894-21-06 08:17:33 Test Item Value Reference Range Interpretation Comments Magnesium (test code 1.8 mg/dL 1.5-3.0 Specime n = 89676-1) slightly hemolyzed IRAJ (test code = Maintenance Welder ID - IRAJ) DSENSONOperator ID - DSENSONOperator ID - DSENSONOperator ID - DSENSON Lab Interpretation Normal (test code = 46192-4) [facility]2022-03-25 08:17:33 Test Item Value Reference Range Interpretation Comments MAGNESIUM (BEAKER) 1.8 mg/dL 1.5-3.0 Specimen slightly (test code = 627) hemolyzed Maintenance Welder ID - DSENSONOperator ID - DSENSONOperator ID - DSENSONOperator ID - DSENSONBasic Metabolic Arqro6350-64-90 05:35:07 Test Item Value Reference Range Interpretation Comments Sodium (test code = 139 meq/L 571-830 4930-2) Potassium (test code = 3.6 meq/L 3.6-5.5 Speci men slightly 2823-3) hemolyzed Chloride (test code = 101 meq/L 98-106 2075-0) CO2 (test code = 24 meq/L - 2028-9) BUN (test code = 21 mg/dL 05-01 3094-0) Creatinine (test code 1.70 mg/dL 0.50-1.20 H Specim en slightly = 2160-0) hemolyzed Glucose (test code = 103 mg/dL 70-110 2345-7) Calcium (test code = 7.6 mg/dL 8.5-10.5 L 73381-3) EGFR (test code = 38 mL/min/1.73 [place] [address]-8) NOT ACCURATE CREATININE CLEARANCE IN PREDICTING GLOMERULAR FILTRATION RATE . 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 IRAJ (test code = IRAJ) Maintenance Welder ID - [id number] ID - [id number] ID - ERIT02Pzvbsrkl ID - ABBI97Bpxoilif ID - YCOH42Mzezciad ID - TKLV26Nqkmnaqu ID - LBTJ37Ybhznazg ID - XTUH65Zhlcycoi ID - GWMX20Kfxfrtus ID - CJHY07Jrvuuwcs ID - KCCS96Swggncca ID - LVZL20Jtsbycwp ID - [id number] Lab Interpretation Abnormal (test code = 61361-3) [facility]OLIC [id number] 05:35:07 Test Item Value Reference Range Interpretation Comments SODIUM (BEAKER) 139 meq/L 135-148 (test code = 381) POTASSIUM (BEAKER) 3.6 meq/L 3.6-5.5 Specimen slightly (test code = 379) hemolyzed CHLORIDE (BEAKER) 101 meq/L 98-106 (test code = 382) CO2 (BEAKER) (test 24 meq/L code = 355) BLOOD UREA NITROGEN 21 mg/dL 05-01 (BEAKER) (test code = 354) CREATININE (BEAKER) 1.70 mg/dL 0.50-1.20 H Specimen slightly (test code = 358) hemolyzed GLUCOSE RANDOM 103 mg/dL 70-110 (ROBERTO) (test code = 652) CALCIUM (ROBERTO) 7.6 mg/dL 8.5-10.5 L (test code = 697) EGFR (ROBERTO) (test 38 mL/min/1.73 ESTIMA JULIEN GFR IS code = 1092) sq m NOT ACCURATE CREATININE CLEARANCE IN PREDICTING GLOMERULAR FILTRATION RATE . ESTIMATED GFR I S NOT APPLICABLE FOR DIALYSIS PATIEN TS. Maintenance Welder ID - [id number] ID - [id number] ID - XULG47Jghregnh ID - OKIF66Vtjzyecs ID - GTLM13Txfevxhw ID - TMDV20Cqfroqqb ID - PKCP04Bcmteppc ID - SBAH96Eegjkdum ID - CKQF56Zotkqsbc ID - XTRT51Xautbbxq ID - ONTG47Oyyvnlsx ID - BWPU07Crevbojh ID - [id number] with platelet count + automated fewt3084-78-76 05:04:38 Test Item Value Reference Range Interpretation Comments WBC (test code = 6690-2) 8.5 See_Comment [A utomated message] The system ID90T generated this result transmitted ref erence range: 4.0 - 10 .0 K/L. The refe rence range was not u sed to interpret this result as normal/abnor mal. RBC (test code = 789-8) 3.52 See_Comment L [Au tomated message] The system ID90T generated this result transmitted ref erence range: 4.20 - 5 .80 M/L. The refe rence range was not u sed to interpret this result as normal/abnor mal. MCHC (test code = 786-4) 31.2 See_Comment L [A utomated message] The system ID90T generated this result transmitted ref erence range: 32.0 - 3 6.0 GM/DL. The refe rence range was not u sed to interpret this result as normal/abnor mal. Hematocrit (test code = 31.1 % 36.0-50.0 L 4544-3) MCV (test code = 787-2) 88.4 fL 82.0-99.0 MCH (test code = 785-6) 27.6 pg 27.0-33.0 RDW (test code = 788-0) 17.9 % 12.0-15.0 H Platelets (test code = 227 See_Comment [Aut omated message] 777-3) The system ID90T generated this result transmitted ref erence range: 150 - 43 0 K/CU MM. The referen ce range was not u sed to interpret this result as normal/abnor mal. MPV (test code = 10.6 fL 6.0-11.5 73286-7) nRBC (test code = 413) 0 See_Comment [Aut omated message] The system ID90T generated this result transmitted ref erence range: 0 - 0 /1 00 WBC. The refere nce range was not u sed to interpret this result as normal/abnor mal. % Neutros (test code = 50 % 429) % Lymphs (test code = 36 % 430) % Monos (test code = 8 % 431) % Eos (test code = 432) 5 % % Baso (test code = 437) 1 % # Neutros (test code = 4.23 See_Comment [Aut omated message] 670) The system ID90T generated this result transmitted ref erence range: 1.80 - 8 .00 K/L. The refe rence range was not u sed to interpret this result as normal/abnor mal. # Lymphs (test code = 3.00 See_Comment [Auto mated message] 414) The system ID90T generated this result transmitted ref erence range: 1.48 - 4 .50 K/L. The refe rence range was not u sed to interpret this result as normal/abnor mal. # Monos (test code = 0.68 See_Comment [Autom ated message] 415) The system ID90T generated this result transmitted ref erence range: 0.00 - 1 .30 K/L. The refe rence range was not u sed to interpret this result as normal/abnor mal. # Eos (test code = 416) 0.46 See_Comment [Au tomated message] The system ID90T generated this result transmitted ref erence range: 0.00 - 0 .50 K/L. The refe rence range was not u sed to interpret this result as normal/abnor mal. # Baso (test code = 417) 0.06 See_Comment [A utomated message] The system ID90T generated this result transmitted ref erence range: 0.00 - 0 .20 K/L. The refe rence range was not u sed to interpret this result as normal/abnor mal. Immature 0 % 0-0 Granulocytes-Relative (test code = 2801) Lab Interpretation (test Abnormal code = 30910-2) [facility] W/PLT COUNT & AUTO [id number] 05:04:38 Test Item Value Reference Range Interpretation [...] 0-0 PERCENT (BEAKER) (test code = 2801) POC-Glucose mynqc4703-31-91 04:47:27 Test Item Value Reference Range Interpretation Comments POC-Glucose Meter (test 98 mg/dL 70-110 : TE STED AT [facility] code = 1538) [address] [facility] [place], [place] [address]: Maintenance Welder/Techni kate ID = [id number] for Michelle Ward Lab Interpretation (test Normal code = 80175-8) [facility] [id number] 04:47:27 Test Item Value Reference Range Interpretation Comments POC-GLUCOSE METER 98 mg/dL 70-110 : TESTED A T [facility] [address] (BEAKER) (test code = [address] [facility], 1538) [place] [address]: Maintenance Welder/Techni kate ID = [id number] for Michelle Knight POCT-GLUCOSE [id number] 23:00:37 Test Item Value Reference Range Interpretation Comments POC-GLUCOSE METER 100 mg/dL 70-110 : TESTED A T [address] (BEAKER) (test code [address] [facility] [place], = 1538) [place] [address]: Maintenance Welder/Techni kate ID = [id number] for Michelle Knight POCT-GLUCOSE [id number] 15:20:37 Test Item Value Reference Range Interpretation Comments POC-GLUCOSE METER 126 mg/dL 70-110 H : TESTED A T [address] (BEAKER) (test code [address] [facility] [place], = 1538) [place] [address]: Maintenance Welder/Techni kate ID = [id number] for Will ia, Caro POCT-GLUCOSE [id number] 11:52:27 Test Item Value Reference Range Interpretation Comments POC-GLUCOSE METER 94 mg/dL 70-110 : TESTED A T [address] (BEAKER) (test code = [address]) [facility] [address]: Maintenance Welder/Techni kate ID = [id number] for Caro Aponte POCT-GLUCOSE [id number] 06:47:47 Test Item Value Reference Range Interpretation Comments POC-GLUCOSE METER 92 mg/dL 70-110 : TESTED A T [address] (BEAKER) (test code = [address]) [facility] [address]: Maintenance Welder/Techni kaet ID = [id number] for Bridget Salas BASIC METABOLIC [id number] 05:34:54 Test Item Value Reference Range Interpretation [...] S NOT APPLICABLE FOR DIALYSIS PATIEN TS. Maintenance Welder ID - NSUVAGIYAOperator ID - NSUVAGIYAOperator ID - NSUVAGIYAOperator ID - NSUVAGIYAOperatorID - NSUVAGIYAOperator ID - NSUVAGIYAOperator ID - NSUVAGIYAOperator ID - NSUVAGIYAOperator ID - NSUVAGIYAOperator ID - NSUVAGIYAOperator ID - NSUVAGIYAOperator ID - NSUVAGIYAOperator ID - NSUVAGIYA CBC W/PLT COUNT & AUTO [id number] 05:03:55 Test Item Value Reference Range Interpretation [...] PERCENT (BEAKER) (test code = 2801) POCT-GLUCOSE [id number] 21:46:46 Test Item Value Reference Range Interpretation Comments POC-GLUCOSE METER 163 mg/dL 70-110 H : TESTED A T [address] (BEAKER) (test code [address] [facility] [address] [facility] [place], = 1538) [place] [address]: Maintenance Welder/Techni kate ID = [id number] for Mali Malloy POCT-GLUCOSE [id number] 17:12:16 Test Item Value Reference Range Interpretation Comments POC-GLUCOSE METER 132 mg/dL 70-110 H : Notified RN/MD: TESTED (BEAKER) (test code AT [facility] [address] = [address]38) [place] [address]: Maintenance Welder/Techni kate ID = [id number] for Laws on, Latmuralia POCT-GLUCOSE [id number] 11:09:45 Test Item Value Reference Range Interpretation Comments POC-GLUCOSE METER 128 mg/dL 70-110 H : Notified RN/MD: TESTED (BEAKER) (test code AT [facility] [address] = 1538) [place] [address]: Maintenance Welder/Techni kate ID = [id number] for Laws on, Latishia BASIC METABOLIC [id number] 10:11:46 Test Item Value Reference Range Interpretation [...] m DATA TO CALCULA TE ESTIMATED GFR. Maintenance Welder ID - [id number] ID - [id number] ID - MNUVB435Kujemkwg ID - GNIYB046Hddhlczf ID - ZRJGZ726Dgtedcbp ID - VMOQN019Iapzvqsa ID - LYHRN642Jooblybq ID - SVJFT714Ndtifubw ID - FNAFY098Gkcqivxc ID - TUAUA115 [id number] 10:09:12 Test Item Value Reference Range Interpretation Comments MAGNESIUM (BEAKER) (test code = 2.0 mg/dL 1.5-3.0 627) Maintenance Welder ID - [id number] ID - [id number] ID - DHOQV125Sftwghcj ID - [id number] W/PLT COUNT & AUTO [id number] 09:35:09 Test Item Value Reference Range Interpretation [...] PERCENT (BEAKER) (test code = 2801) POCT-GLUCOSE [id number] 06:09:14 Test Item Value Reference Range Interpretation Comments POC-GLUCOSE METER 84 mg/dL 70-110 : TESTED A T [address] (BEAKER) (test code = [address]) [place] [address]: Maintenance Welder/Techni kate ID = [id number] for Michelle Knight POCT-GLUCOSE [id number] 21:48:15 Test Item Value Reference Range Interpretation Comments POC-GLUCOSE METER 122 mg/dL 70-110 H : TESTED A T [address] (BEAKER) (test code [address], = [address]) [place] [address]: Maintenance Welder/Techni kate ID = [id number] for OnBridget mazariegos POCT-GLUCOSE [id number] 17:30:56 Test Item Value Reference Range Interpretation Comments POC-GLUCOSE METER 78 mg/dL 70-110 : TESTED A T [address] (BEAKER) (test code = [address], [address]) [place] [address]: Maintenance Welder/Techni kate ID = [id number] for Beka Adorno POCT-GLUCOSE [id number] 11:52:53 Test Item Value Reference Range Interpretation Comments POC-GLUCOSE METER 72 mg/dL 70-110 : TESTED A T [address] (BEAKER) (test code = [address], [address]) [facility] [place] [address]: Maintenance Welder/Techni kate ID = [id number] for Beka Adorno Hepatic function brrha4643-68-30 06:59:28 Test Item Value Reference Range Interpretation Comments Protein, Total (test 5.9 See_Comment L Specime n slightly code = 2885-2) hemolyzed [Automated message] The system which generated this result transmit julien reference range : 6.0 - 8.5 gm/dL . The reference range was not u sed to interpret th is result as normal/abnormal . Albumin (test code = 2.9 g/dL 3.5-5.0 L Specime n slightly 60302-8) hemolyzed Total Bilirubin (test 0.7 mg/dL 0.1-1.2 Specim en slightly code = 1975-2) hemolyzed Bilirubin, Direct 0.3 mg/dL 0.0-0.4 Specimen s lightly (test code = 1968-7) hemolyz ed Alkaline Phosphatase 61 U/L 30-115 (test code = 6768-6) AST (test code = 20 U/L 5-40 Specimen sl ightly 1920-8) hemolyzed ALT (test code = 8 U/L 5-50 Specimen sl ightly 1742-6) hemolyzed IRAJ (test code = IRAJ) Maintenance Welder ID - [id number] ID - szzr63Whzkcreq ID - dvto06Bsfykxht ID - nrrx09Rruvoced ID - dkty35Snpizrlk ID - luzw33Jhprqrjw ID - cukv56Qqvrbimg ID - dksw02Utqofqgs ID - ceud16Klaxmemk ID - znmp04 Lab Interpretation Abnormal (test code = 79773-4) [facility] [id number] 06:59:28 Test Item Value Reference Range Interpretation [...] Specimen slightly (test code = 347) hemolyzed Maintenance Welder ID - [id number] ID - kmti68Phrzklgi ID - etrm53Xqmiwdhm ID - ltsy95Joeachqr ID - ycci29Umhqfilq ID - pbmk52Agrffbqv ID - saux53Koyeejel ID - goqb26Rashfofo ID - gadx17Eaguipvj ID - lubg58EZDUP METABOLIC [id number] 06:56:05 Test Item Value Reference Range Interpretation [...] m DATA TO CALCULA TE ESTIMATED GFR. Maintenance Welder ID - obyw63Bduahslg ID - stsy70Tkhcceid ID - taga91Irvllpsn ID - eook72Vdtvvpqp ID - czgo45Orgotgge ID - vcvb43Bvrmgylp ID - qrzx71Bborubjx ID - zaeb43Sbvgqjae ID - rjee09Tadymsns ID - lsnp03IJT W/PLT COUNT & AUTO [id number] 06:40:28 Test Item Value Reference Range Interpretation [...] PERCENT (BEAKER) (test code = 2801) POCT-GLUCOSE [id number] 05:32:55 Test Item Value Reference Range Interpretation Comments POC-GLUCOSE METER 89 mg/dL 70-110 : Notified RN/MD: TESTED (BEAKER) (test code = AT [facility] [address]) [place] [address]: Maintenance Welder/Techni kate ID = [id number] for Prov ost Maribeth POCT-GLUCOSE [id number] 17:11:16 Test Item Value Reference Range Interpretation Comments POC-GLUCOSE METER 124 mg/dL 70-110 H : Notified RN/MD: [facility] (test code AT [facility] [address] = 1538) [place] [address]: Maintenance Welder/Techni kate ID = [id number] for Dariel h, Lorita POCT-GLUCOSE [id number] 11:57:49 Test Item Value Reference Range Interpretation Comments POC-GLUCOSE METER 164 mg/dL 70-110 H : Notified RN/MD: TESTED (BEAKER) (test code AT [facility] [address] = 1538) [place] [address]: Maintenance Welder/Techni kate ID = [id number] for Dariel h, Lorita 2D Echo W/Doppler(CW/PW/Color)2021-09-24 10:09:58Ejection FractionSLE ECHO HEARTLAB MKCKESSON [facility] 2021-09-24 05:37:52 Test Item Value Reference Range Interpretation [...] m DATA TO CALCULA TE ESTIMATED GFR. Maintenance Welder ID - LITOOperator ID - LITOOperator ID - LITOOperator ID - LITOOperator ID - LITOOperator ID - LITOOperator ID - LITOOperator ID - LITOOperator ID - LITOOperator ID - LITOHEPATIC FUNCTION [id number] 05:33:43 Test Item Value Reference Range Interpretation [...] Specimen slightly (test code = 347) hemolyzed Maintenance Welder ID - LITOOperator ID - LITOOperator ID - LITOOperator ID - LITOOperator ID - LITOOperator ID - LITOOperator ID - LITOOperator ID - LITOOperator ID - LITOOperator ID - LITOCBC W/PLT COUNT & AUTO [id number] 05:31:08 Test Item Value Reference Range Interpretation [...] 0-0 PERCENT (BEAKER) (test code = 2801) Hemoglobin and twaywpmwdg7225-15-75 22:35:07 Test Item Value Reference Range Interpretation Comments Hemoglobin (test code = 8.2 See_Comment L [Au tomated message] 786-4) The system ID90T generated this result transmitted ref erence range: 13.0 - 1 6.8 GM/DL. The refe rence range was not u sed to interpret this result as normal/abnor mal. Hematocrit (test code = 26.1 % 36.0-50.0 L 4544-3) Lab Interpretation (test Abnormal code = 84901-2) [facility] HospitalHEMOGLOBIN AND [id number] 22:35:07 Test Item Value Reference Range Interpretation Comments HEMOGLOBIN (BEAKER) (test code = 8.2 GM/DL 13.0-16.8 L 410) HEMATOCRIT (BEAKER) (test code = 26.1 % 36.0-50.0 L 411) POCT-GLUCOSE [id number] 21:10:24 Test Item Value Reference Range Interpretation Comments POC-GLUCOSE METER 158 mg/dL 70-110 H : Notified RN/MD: TESTED (BEAKER) (test code AT [facility] [address] = 1538) GALENIvana [facility] [address]: Maintenance Welder/Techni kate ID = [id number] for Maribeth Dickson U/S, RENAL, [id number] 18:57:00Reason for exam:->elevated Cr [facility] L[facility] MARCELAJORDAN OSBORN : 1935 Sex: MFINALREPORT TECHNIQUE: Grayscale [...] MDReport Verified Date/Time: 09/23/2021 18:57:43 HEMOGLOBIN AND [id number] 18:02:18 Test Item Value Reference Range Interpretation Comments HEMOGLOBIN (BEAKER) (test code = 9.4 GM/DL 13.0-16.8 L 410) HEMATOCRIT (BEAKER) (test code = 29.9 % 36.0-50.0 L 411) Troponin [id number] 17:56:55 Test Item Value Reference Range Interpretation Comments Troponin I (test code = <0.03 0.00-0.15 77227-6) IRAJ (test code = IRAJ) Troponin I (TnI) levels must be interpreted [...] failure, acidosis, acute neurological disease, and persistent tachyarrhythmia.Opera tor ID - ERINY Lab Interpretation (test Normal code = 78134-2) [facility]OP[facility] [id number] 17:56:55 Test Item Value Reference Range Interpretation [...] failure, acidosis, acute neurological disease, and persistent tachyarrhythmia.Maintenance Welder ID - ERINYPOCT-GLUCOSE METER 2021-09-23 17:52:16 Test Item Value Reference Range Interpretation Comments POC-GLUCOSE METER 118 mg/dL 70-110 H : TESTED A T [address] (BEAKER) (test code [address], = 1538) [place] [address]: Maintenance Welder/Techni kate ID = [id number] for Sarah Teran POCT-GLUCOSE [id number] 11:32:42 Test Item Value Reference Range Interpretation Comments POC-GLUCOSE METER 131 mg/dL 70-110 H : TESTED A T [address] 13[address] (BEAKER) (test code [address], = 1538) [place] [id number]: Maintenance Welder/Techni kate ID = [id number] for Selene Tinajero TROPONIN [id number] 10:57:24 Test Item Value Reference Range Interpretation [...] failure, acidosis, acute neurological disease, and persistent tachyarrhythmia.Maintenance Welder ID - JAQUELYNNEHEMOGLOBIN AND CYINOBHMCQ4768-91-80 10:50:03 Test Item Value Reference Range Interpretation Comments HEMOGLOBIN (BEAKER) (test code = 9.1 GM/DL 13.0-16.8 L 410) HEMATOCRIT (BEAKER) (test code = 28.9 % 36.0-50.0 L 411) gilmar KRISHNANkzhxpp2360-87-72 10:03:00 Test Item Value Reference Range Interpretation Comments ABO Grouping (test code = 2588) O TUBES Rh Factor (test code = 2589) NEG TUBES [facility] + Reflex to Culture 2021-09-23 07:28:56 Test Item Value Reference Range Interpretation Comments Color, UA (test code Yellow = 5778-6) Clarity, UA (test Slightly Cloudy code = 5767-9) Specific [place], UA 1.010 1.001-1.035 (test code = 5811-5) pH, UA (test code = 5.5 5.0-8.0 5803-2) Protein, UA (test Negative Negative code = 40949-3) Glucose, UA (test >=1000 mg/dL Negative A code = 365) Ketones, UA (test Negative Negative code = 2514-8) Bilirubin, UA (test Negative Negative code = 27072-8) Blood, UA (test code Trace Negative A = 63712-8) Nitrite, UA (test Negative Negative code = 5802-4) Leukocytes, UA (test Small Negative A code = 5799-2) Urobilinogen, UA 0.2 mg/dL 0.2-1.0 (test code = 99449-0) Bacteria, UA (test Occasional code = 64274-0) Yeast (test code = Few 53634-6) RBC, UA (test code = <5 See_Comment [Autom ated 799-7) message] The system which generated this result transmitted reference range : /HPF. The reference range was not used to interpret this result as normal/abnormal . WBC, UA (test code = 20-50 See_Comment [Autom ated 68181-6) message] The system which generated this result transmitted reference range : /HPF. The reference range was not used to interpret this result as normal/abnormal . SQUAMOUS EPITHELIAL None Seen See_Comment [Automa julien (test code = 63754-1) messag e] The system which generated this result transmitted reference range : /HPF. The reference range was not used to interpret this result as normal/abnormal . Specimen Source (test code = 2795) Lab Interpretation Abnormal (test code = 92489-9) [facility]/ REFLEX URINE [id number] 07:28:56 Test Item Value Reference Range Interpretation [...] 1663) SOURCE(BEAKER) (test code = 2795) TROPONIN [id number] 06:35:09 Test Item Value Reference Range Interpretation [...] failure, acidosis, acute neurological disease, and persistent tachyarrhythmia.Maintenance Welder ID - [id number] A1c 2021-09-23 05:13:31 Test Item Value Reference Range Interpretation Comments Hemoglobin A1C (test code 5.7 % 4.3-6.1 = 4548-4) IRAJ (test code = IRAJ) Maintenance Welder ID - [id number] Lab Interpretation (test Normal code = 08787-9) [facility] [id number] 05:13:31 Test Item Value Reference Range Interpretation Comments HEMOGLOBIN A1C (BEAKER) (test code = 5.7 % 4.3-6.1 368) Maintenance Welder ID - [id number] and screen, xpavwlmyn9328-41-87 05:09:00 Test Item Value Reference Range Interpretation Comments ABO/RH AUTOMATED (BEAKER) (test O NEGATIVE code = 2260) Ab Scrn (test code = 890-4) NEGATIVE [facility], CHEST, 1 VIEW, NON [id number] 04:38:00Reason for exam:->baselineShould this be performed at the bedside?->Yes [facility] : 1935 Sex: MFINALREPORT INDICATION: [...] ARANGO MD on 09/23/2021 04:38 AMBASIC METABOLIC [id number] 04:34:59 Test Item Value Reference Range Interpretation [...] m DATA TO CALCULA TE ESTIMATED GFR. Maintenance Welder ID - [id number] ID - [id number] ID - MMVG91Xhaneptw ID - BHWY44Owavzfwa ID - NFXY37Ketcorfd ID - ZSDY46Zllfxfjc ID - SWLO61Cjcceuuy ID - VXUX48Edqapnnx ID - YQEG86Jwhbhqlo ID - [id number] 04:32:57 Test Item Value Reference Range Interpretation Comments MAGNESIUM (BEAKER) 2.2 mg/dL 1.5-3.0 Specimen slightly (test code = 627) hemolyzed Maintenance Welder ID - [id number] ID - [id number] ID - [id number] ID - [id number] HEPATIC FUNCTION [id number] 04:32:57 Test Item Value Reference Range Interpretation [...] Specimen slightly (test code = 347) hemolyzed Maintenance Welder ID - [id number] ID - PGZH35Jkcteoto ID - YTAE51Euyokvyr ID - XZVS40Jhmvcgqv ID - DKLC86Hjmbagwe ID - PWDF15Xscgtctd ID - UWBZ23Ocmbsomsvl 2021-09-23 04:29:39 Test Item Value Reference Range Interpretation Comments Phosphorus (test code 4.3 mg/dL 2.5-4.5 Specim en = 2777-1) slightly hemolyzed IRAJ (test code = IRAJ) Maintenance Welder ID - [id number] Lab Interpretation Normal (test code = 24288-6) [facility] HospitalPHOSPHORUS2022-03-20 04:29:39 Test Item Value Reference Range Interpretation Comments PHOSPHORUS (BEAKER) 4.3 mg/dL 2.5-4.5 Specimen slightly (test code = 604) hemolyzed Maintenance Welder ID - [id number] time/[id number] 04:25:54 Test Item Value Reference Interpretation Comments Range Protime (test code = 12.6 See_Comment H Final 5902-2) Information (Auto Output) [Automated message] The system which generated this result transmitted reference range : 9.3 - 12.0 seconds. The reference range was not used to interpret this result as normal/abnormal . INR (test code = 1.16 See_Comment Final 6301-6) Information (Auto Output) [Automated message] The system which generated this result transmitted reference range : <=5.90. The reference range was not used to interpret this result as normal/abnormal . IRAJ (test code = RECOMMENDED IRAJ) COUMADIN/WARFARIN INR THERAPY RANGESSTANDARD DOSE: 2.0 - 3.0 Includes: PROPHYLAXIS for venous thrombosis, systemic embolization; TREATMENT for venous thrombosis and/or pulmonary embolus.HIGH RISK: Target INR is 2.5-3.5 for patients with mechanical heart valves. Lab Interpretation Abnormal (test code = 05558-5) [facility] HospitalPROTHROMBIN TIME/[id number] 04:25:54 Test Item Value Reference Range Interpretation Comments PROTIME (BEAKER) 12.6 seconds 9.3-12.0 H Final Infor mation (test code = 759) (Auto Outp ut) INR (BEAKER) (test 1.16 See_Comment Final Inf ormation code = 370) (Auto Output) [Automated mess age] The system ID90T generated this result transmitted ref erence range: <=5.90. The reference range was not used to int erpret this result as normal/abnormal . RECOMMENDED COUMADIN/WARFARIN INR THERAPY RANGESSTANDARD DOSE: 2.0 - 3.0 Includes: PROPHYLAXIS for venous thrombosis, systemic embolization; TREATMENT for venous thrombosis and/or pulmonary embolus.HIGH RISK: Target INR is 2.5-3.5 for patients with mechanical heart valves.CBC W/PLT COUNT & AUTO [id number] 04:16:54 Test Item Value Reference Range Interpretation [...] PERCENT (BEAKER) (test code = 2801) POCT-GLUCOSE [id number] 03:44:38 Test Item Value Reference Range Interpretation Comments POC-GLUCOSE METER 167 mg/dL 70-110 H : TESTED A T [address] (BEAKER) (test code [facility], = 1538) [place] [address]: Maintenance Welder/Techni kate ID = [id number] for Ahsan Orozco POCT-GLUCOSE [id number] 03:27:46 Test Item Value Reference Range Interpretation Comments POC-GLUCOSE METER 164 mg/dL 70-110 H : TESTED A T [address] (BEAKER) [facility] [address] [facility] = [facility] [place] [address]: Maintenance Welder/Techni kate ID = [id number] for Kirk Healy POC evicuxh1314-28-66 18:51:34 Test Item Value Reference Range Interpretation Comments POC glucose (test code 116 mg/dL 65-99 H Opera tor Name: [place] = 53966-3) Narda ID : [id number] able: [facility] Notified insole cementer Interpretation Abnormal (test code = 81104-2) [facility] ltmpljg7930-31-79 18:51:34 Test Item Value Reference Range Interpretation Comments POC glucose (test code 116 mg/dL 65-99 H Opera tor Name: [place] = 45998-1) MarlynDevice ID : [id number] able: TM Notified insole cementer Interpretation Abnormal (test code = 34469-6) [facility] nhdxzbr2649-34-35 18:51:34 Test Item Value Reference Range Interpretation Comments POC glucose (test code 116 mg/dL 65-99 H Opera tor Name: [place] = 58484-0) MarlynDevice ID : [id number] able: TM Notified insole cementer Interpretation Abnormal (test code = 80394-2) [facility] RNA [Presence] in Respiratory specimen by ANDRWE with probe ismftvgfh7768-97-90 11:35:00 Test Item Value Reference Range Interpretation Comments 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 (test code = 83276-0) Whether the patient was admitted to intensive care unit (ICU) for condition of interest (test code = 32598-0) ECG ED Preliminary Interpretation - Not an Kotxw1004-29-70 02:10:59 Test Item Value Reference Range Interpretation Comments IRAJ (test code = IRAJ) Jami Dubois MD 06/28/2021 3:18 [facility] ED Preliminary Interpretation - Not an OrderPerformed by: Jami Dubois MDAuthorized by: Jami Dubois MD ECG reviewed by ED Physician in the absence of a crane service technician: yes Interpretation: Interpretation: abnormal Rate: ECG rate: 72 ECG rate assessment: normal Rhythm: Rhythm: paced Pacing: Capture: CompleteEctopy: Ectopy: none QRS: QRS axis: Normal QRS intervals: NormalConduction: Conduction: normal ST segments: ST segments: NormalT waves: T waves: normal Lab Interpretation Abnormal (test code = 88455-4) [facility] ED Preliminary Interpretation - Not an Aotbu8468-07-05 02:10:59 Test Item Value Reference Range Interpretation Comments IRAJ (test code = IRAJ) Jami Dubois MD 06/28/2021 3:18 [facility] ED Preliminary Interpretation - Not an OrderPerformed by: Jami Dubois, MDAuthorized by: Jami Dubois MD ECG reviewed by ED Physician in the absence of a crane service technician: yes Interpretation: Interpretation: abnormal Rate: ECG rate: 72 ECG rate assessment: normal Rhythm: Rhythm: paced Pacing: Capture: CompleteEctopy: Ectopy: none QRS: QRS axis: Normal QRS intervals: NormalConduction: Conduction: normal ST segments: ST segments: NormalT waves: T waves: normal Lab Interpretation Abnormal (test code = 59102-9) [facility] ED Preliminary Interpretation - Not an Faujr9449-28-66 02:10:59 Test Item Value Reference Range Interpretation Comments IRAJ (test code = IRAJ) Jami Dubois MD 06/28/2021 3:18 [facility] ED Preliminary Interpretation - Not an OrderPerformed by: Jami Dubois MDAuthorized by: Jami Dubois MD ECG reviewed by ED Physician in the absence of a crane service technician: yes Interpretation: Interpretation: abnormal Rate: ECG rate: 72 ECG rate assessment: normal Rhythm: Rhythm: paced Pacing: Capture: CompleteEctopy: Ectopy: none QRS: QRS axis: Normal QRS intervals: NormalConduction: Conduction: normal ST segments: ST segments: NormalT waves: T waves: normal Lab Interpretation Abnormal (test code = 59035-2) [facility] CampusHem[facility] [id number] 14:36:00 Test Item Value Reference Interpretation Comments Range Hemoglobin A1C (test See_Comment H For tyler crabtree without code = 4548-4) known diabete s, [...] for children. [Automated mess age] The system ID90T generated this result transmit julien reference range : <5.7 % of total Hgb. The refere nce range was not u sed to interpret th is result as normal/abnormal . IRAJ (test code = FASTING:NO IRAJ) FASTING: NO RAC (test code = Performing RAC) Organization Information: Site ID: RGA Name: [facility] Address: [address] [place] [id number] Director: Rajan Yates Lab Interpretation Abnormal (test code = 04677-4) [facility] CampusTlkorhgmDX-sckLOV0745-84-08 14:36:00 Test Item Value Reference Interpretation Comments Range NT-proBNP (test 2736 pg/mL H Male Risk: Optimal code = 25777-0) < 253 pg/mL High > or = 253 pg/mL For Heart Failure ( HF) diagnosis, referenceranges in patients with dyspnea are bas ed onQuoc HERRMANN E t al. J Am Rodolfo Cardiol.2018;71 [...] HF progression (<3 00 pg/mL)is based on Trisha KB, et al. Clin Biochem.2010;43 :1405 -10. For additi onal information, pl ease refer tohttp://educat ion.[employer]/ faq/ELM679(This link is being provid ed for informational/e ducat ionalpurposes o nly.) IRAJ (test code = FASTING:NO IRAJ) FASTING: NO RAC (test code = Performing RAC) Organization Information: Site ID: EZ Name: [facility], Address: [address] [place] [id number] Director: Nissa Frey MD,PhD,GHULAM Lab Interpretation Abnormal (test code = 08552-9) [facility] CampusHemoglobin [id number] 14:36:00 Test Item Value Reference Interpretation Comments Range Hemoglobin A1C (test See_Comment H For tyler crabtree without code = 4548-4) known diabete s, [...] for children. [Automated mess age] The system ID90T generated this result transmit julien reference range : <5.7 % of total Hgb. The refere nce range was not u sed to interpret th is result as normal/abnormal . IRAJ (test code = FASTING:NO IRAJ) FASTING: NO RAC (test code = Performing RAC) Organization Information: Site ID: RGA Name: [facility] Address: [address] [place] [phone] Director: Rajan Yates Lab Interpretation Abnormal (test code = 04321-0) [facility] CampusBwmsogguUZ-uwdZIR8636-93-08 14:36:00 Test Item Value Reference Interpretation Comments Range NT-proBNP (test 2736 pg/mL H Male Risk: Optimal code = 56290-8) < 253 pg/mL High > or = 253 pg/mL For Heart Failure ( HF) diagnosis, referenceranges in patients with dyspnea are bas ed Brittaney HERRMANN, E t al. J Am Rodolfo [...] pg/mL men, <372 pg/mL women) arebased on Oml and T, et al. J Am Rodolfo Cardiol.2007:50 :205- 14. For patient s with existing H F, the optimal riskcategory cu t point for HF progression (<3 00 pg/mL)is based on Trisha BASSETT, et al. Clin Biochem.2010;43 :1405 -10. For additi onal information, pl ease refer tohttp://educat [employer]/ faq/XKU026(This link is being provid ed for informational/e ducat ionalpurposes o nly.) IRAJ (test code = FASTING:NO IRAJ) FASTING: NO RAC (test code = Performing RAC) Organization Information: Site ID: EZ Name: [facility], Address: [address] [place] [phone] Director: Nissa Frey MD,PhD,GHULAM Lab Interpretation Abnormal (test code = 34340-8) [facility] RNA [Presence] in Respiratory specimen by ANDREW with probe exisrgkpu4054-59-34 00:24:51 Test Item Value Reference Range Interpretation Comments SARS-CoV-2 (COVID-19) RNA Not detected Not-Detected [Presence] in Respiratory specimen by ANDREW with probe detection (test code = 54317-6) SARS-CoV-2 (COVID-19) RNA [Presence] in Respiratory specimen by ANDREW with probe kayuyorec3026-50-84 23:06:04 Test Item Value Reference Range Interpretation Comments SARS-CoV-2 (COVID-19) RNA Not detected Not-Detected [Presence] in Respiratory specimen by ANDREW with probe detection (test code = 16473-9) SARS-CoV-2 (COVID-19) RNA [Presence] in Respiratory specimen by ANDREW with probe xsotnukmt6210-22-19 19:57:13 Test Item Value Reference Range Interpretation Comments SARS-CoV-2 (COVID-19) RNA Not detected Not-Detected [Presence] in Respiratory specimen by ANDREW with probe detection (test code = 16018-5) SARS-CoV-2 (COVID-19) RNA [Presence] in Respiratory specimen by ANDREW with probe tpoghvvqu6599-41-23 23:40:00 Test Item Value Reference Range Interpretation Comments SARS-CoV-2 (COVID-19) RNA Not detected Not-Detected [Presence] in Respiratory specimen by ANDREW with probe detection (test code = 49275-2) SARS-CoV-2 (COVID-19) RNA [Presence] in Respiratory specimen by ANDREW with probe fqlroontz2353-06-76 22:07:46 Test Item Value Reference Range Interpretation Comments SARS-CoV-2 (COVID-19) RNA Not detected Not-Detected [Presence] in Respiratory specimen by ANDREW with probe detection (test code = 45994-1) SARS-CoV-2 (COVID-19) RNA [Presence] in Respiratory specimen by ANDREW with probe knypwsdgp4550-87-63 21:47:42 Test Item Value Reference Range Interpretation Comments SARS-CoV-2 (COVID-19) RNA Not detected Not-Detected [Presence] in Respiratory specimen by ANDREW with probe detection (test code = 05602-6) SARS-CoV-2 (COVID-19) RNA [Presence] in Respiratory specimen by ANDREW with probe jvkkythip6522-38-48 14:31:58 Test Item Value Reference Range Interpretation Comments SARS-CoV-2 (COVID-19) RNA Not detected Not-Detected [Presence] in Respiratory specimen by ANRDEW with probe detection (test code = 24563-1)
[2022-03-23 12:03] LABS: Absolute Lymphocytes (CBC) 2.8 K/uL (0.7-4.9); Hematocrit 34.1 % (39.6-49.0); MCV 87.8 fL (80-100); RBC Red Blood Cell Count 3.89 M/uL (4.33-5.43)
[2022-03-23] MEDS ORDERED: NA CHLORIDE 0.9% 500 ML ONE ×2 (12:06→14:49)
--- NOTE | 2022-03-23 13:02 | RAD REPORT ---
EXAM DESCRIPTION: Shital Single View03/23/2022 12:34 pm CLINICAL HISTORY: Difficulty swallowing/weakness COMPARISON: February 2022 FINDINGS: The lungs appear clear of acute infiltrate. The heart is mildly enlarged. Postsurgical ch anges involve the chest. Pacemaker leads place IMPRESSION: No acute abnormalities displayed
[2022-03-23 13:33] LABS: Albumin 3.1 g/dL (3.4-5.0); Bilirubin Total 0.4 mg/dL (0.2-1.0); Protein, Total 7.1 g/dL (6.4-8.2); Troponin High Sensitivity 37.8 pg/mL (<58.9)
[2022-03-23 13:34] LABS: Magnesium 2.3 mg/dL (1.8-2.4)
--- NOTE | 2022-03-23 14:11 | EDPHYS ---
Physician Documentation [facility] Name: Gilmer Mercado Age: 86 yrs Sex: Male : 1935 Arrival Date: 03/23/2022 Time: 11:39 Bed 6 Private MD: ED Physician Marcia Villasenor HPI: 03/23 11:40 This 86 yrs old Male presents to ER via Unassigned with complaints of generalized sd2 weakness. 11:40 86-year-old male presents via EMS with chief complaint of generalized weakness. He sd2 reports he has a difficulty with digesting the food. When I inquired further, it appears the patient has difficulty with actually swallowing the food and getting it to go down. He has no difficulty with fluids and has been able to drink appropriately. He reports he feels weak due to the fact that he thinks he is hungry and has not been able to eat appropriately. He reports this has been ongoing for quite some time and that he did see his doctor about it at some point and that no further testing was done. He cannot recall whether or not he has ever had an endoscopy but believes he has had a colonoscopy in the past. He denies any fevers, vomiting, diarrhea or urinary symptoms. He does endorse nausea and was given 4 mg of Zofran prior to arrival with EMS.. Historical: - Allergies: 11:39 No Known Allergies; aa5 - Home Meds: 12:19 allopurinol 300 mg oral tab once daily [Active]; Albuterol Inhl 1 puff every 6 hours aa5 [Active]; amiodarone 200 mg Oral tab 1 tab once daily [Active]; buspirone 5 mg Oral tab 3 times per day [Active]; carvedilol 6.25 mg oral tab 2 times per day [Active]; cetirizine 5 mg oral tab once daily [Active]; Plavix 75 mg Oral tab 1 tab once daily [Active]; clotrimazole-betamethasone 1-0.05 % Topical crea 2 times per day [Active]; colesevelam 625 mg oral tab 2 times per day [Active]; colesevelam 625 mg oral tab 2 times per day [Active]; donepezil 10 mg oral tab BID [Active]; Eliquis 2.5 mg oral tab 2 times per day [Active]; Fiasp U-100 Insulin 100 unit/mL subcutaneous soln three times a day [Active]; gabapentin 300 mg oral cap BID [Active]; levothyroxine 175 mcg cap once daily [Active]; methocarbamol 500 mg Oral tab nightly [Active]; metolazone 2.5 mg oral tab Mon [Active]; metolazone 2.5 mg oral tab every friday, friday, and friday [Active]; ondansetron HCl 4 mg Oral tab every 8 hrs PRN [Active]; pantoprazole 40 mg oral grps 2 times per day [Active]; paroxetine HCl 10 mg oral tab once daily [Active]; ramelteon 8 mg oral tab 1 tab once daily [Active]; tamsulosin 0.4 mg oral cap 1 cap once daily [Active]; torsemide 20 mg oral tab once daily [Active]; Tresiba FlexTouch U-100 100 unit/mL (3 mL) subcutaneous inpn 40 units SQ daily [Active]; Vascepa 1 gram oral cap 2 caps 2 times per day [Active]; - PMHx: 11:39 Alzheimer's disease; BPH; Diabetes - IDDM; High Cholesterol; Hypertension; Pacemaker; aa5 Pneumonia; - PSHx: 11:39 CABG; pacemaker; aa5 - Immunization history:: Adult Immunizations unknown. - Social history:: Smoking status: Patient denies any tobacco usage or history of. ROS: 11:40 Constitutional: Negative for fever, chills, and weight loss, Eyes: Negative for injury, sd2 pain, redness, and discharge, ENT: Negative for injury, pain, and discharge, Cardiovascular: Negative for chest pain, palpitations, and edema, Respiratory: Negative for shortness of breath, cough, wheezing. Abdomen/GI: Negative for abdominal pain, vomiting, diarrhea. Positive for difficulty swallowing solids and nausea. MS/Extremity: Negative for injury and deformity, Skin: Negative for injury, rash, and discoloration, Neuro: Negative for headache, numbness and tingling. Positive for weakness. Exam: 11:40 Constitutional: This is a well developed, well nourished patient who is awake, alert, sd2 and in no acute distress. Head/Face: Normocephalic, atraumatic. Eyes: EOMI, normal conjunctiva bilaterally Chest/axilla: Normal chest wall appearance and motion. Nontender with no deformity. Cardiovascular: Regular rate and rhythm with a normal S1 and S2. No gallops, murmurs, or rubs. 2+ distal pulses. Respiratory: Lungs have equal breath sounds bilaterally, clear to auscultation and percussion. No rales, rhonchi or wheezes noted. No increased work of breathing, no retractions or nasal flaring. Abdomen/GI: Soft, non-tender, with normal bowel sounds. No guarding or rebound. No evidence of tenderness throughout. Skin: Warm, dry with normal turgor. Normal color with no rashes, no lesions, and no evidence of cellulitis. MS/ Extremity: Pulses equal, no cyanosis. Neurovascular intact. Full, normal range of motion. Ambulatory without difficulty. Psych: Awake, alert, with orientation to person, place and time. Behavior, mood, and affect are within normal limits. Vital Signs: 11:39 BP 105 / 53; Pulse 71; Resp 14 S; Temp 97.8(O); Pulse Ox 95% on R/A; Weight 89.81 kg aa5 (R); Height 5 ft. 11 in. (180.34 cm) (R); Pain 0/10; 13:05 BP 116 / 51; Pulse 70; Resp 16 S; Pulse Ox 97% on R/A; aa5 14:00 BP 110 / 51; Pulse 70; Resp 16 S; Pulse Ox 97% on R/A; aa5 15:00 BP 114 / 53; Pulse 70; Resp 14 S; Temp 98.0(TE); Pulse Ox 97% on R/A; aa5 16:00 BP 110 / 56; Pulse 70; Resp 16 S; Pulse Ox 98% on R/A; aa5 17:20 BP 119 / 51; Pulse 70; Resp 14 S; Temp 97.8(TE); Pulse Ox 99% on R/A; aa5 11:39 Body Mass Index 27.62 (89.81 kg, 180.34 cm) aa5 MDM: 11:39 Patient medically screened. sd2 11:40 Differential Diagnosis mass, achalasia, esophageal spasm, dehydration, electrolyte sd2 abnormality, ACS, anemia among others. 14:08 Data reviewed: vital signs, nurses notes, old medical records, lab test result(s), EKG. sd2 Counseling: I had a detailed discussion with the patient and/or guardian regarding: the historical points, exam findings, and any diagnostic results supporting the discharge/admit diagnosis, lab results, the need for further work-up and treatment in the hospital. Physician consultation: Elvis Issa MD was called at 14:09, was contacted at 14:09, regarding admission, to the medical/surgical unit. and will see patient in ED, shortly. 03/23 11:40 Order name: CBC with Diff; Complete Time: 12:55 [facility] 03/23 14:08 Interpretation: Abnormal. ut03/23 11:40 Order name: CMP; Complete Time: 14:03 [facility] 03/23 11:40 Order name: Magnesium; Complete Time: 14:03 [facility] 03/23 11:40 Order name: Troponin High Sensitivity; Complete Time: 14:03 [facility] 03/23 11:40 Order name: Urine Microscopic Only [facility] 03/23 14:51 Order name: Urine Dipstick-Ancillary [facility] 03/23 11:40 Order name: XRAY Chest (1 view); Complete Time: 13:03 [facility] 03/23 14:57 Order name: CBC with Automated Diff [facility] 03/23 14:57 Order name: CBC with Automated Diff [facility] 03/23 14:57 Order name: Comprehensive Metabolic Panel [facility] 03/23 14:57 Order name: Comprehensive Metabolic Panel [facility] 03/23 15:04 Order name: Barium Swallow Modified [facility] 03/23 15:10 Order name: SARS RAPID kj1 03/23 11:40 Order name: EKG; Complete Time: 11:41 [facility] 03/23 11:40 Order name: Urine Dipstick-Ancillary (obtain specimen); Complete Time: 14:52 [facility] 03/23 14:58 Order name: CONS Physician Consult [facility] 03/23 15:03 Order name: Clear Liquid EDAL Administered Medications: 12:01 Drug: NS 0.9% 500 ml Route: IV; Rate: bolus; Site: right forearm; aa5 12:55 Follow up: IV Status: Completed infusion; IV Intake: 500ml aa5 14:20 Drug: Potassium Effervescent Tablet 50 mEq Route: PO; aa5 15:00 Follow up: Response: No adverse reaction aa5 14:59 Drug: NS 0.9% 500 ml Route: IV; Rate: bolus; Site: right forearm; aa5 17:00 Follow up: IV Status: Completed infusion; IV Intake: 500ml aa5 14:59 Drug: Potassium Chloride 10 mEq Route: IV; Rate: bolus; Site: right forearm; aa5 17:00 Follow up: IV Status: Completed infusion aa5 Disposition Summary: 03/23/22 14:10 Hospitalization Ordered Hospitalization Status: Inpatient Admission sd2 Provider: Elvis Issa Location: Telemetry/MedSur (Inpatient) sd2 Condition: Stable sd2 Problem: new sd2 Symptoms: are unchanged sd2 Bed/Room Type: [facility] Room Assignment: 401(03/23/22 17:18) [email or web address] Diagnosis - Acute on chronic kidney disease sd2 - Hyponatremia sd2 - Hypokalemia sd2 - Difficulty swallowing sd2 Forms: - Medication Reconciliation Form sd2 - SBAR form sd2 Signatures: Dispatcher [employer] EDAL Liliya Amador RN RN aa5 Michelle Dyer kj1 Marcia Villasenor MD MD sd2 Corrections: (The following items were deleted from the chart) 12:05 11:39 PMHx: PNUEMONIA; aa5 aa5 12:05 11:39 PSHx: Pneumonia; [place] [id number] 15:01 14:57 60g Consistent Carbohydrate (ADA 1800/2000) ordered. EDAL EDAL 17:18 14:10 sd2 kj1
--- NOTE | 2022-03-23 14:11 | ER ---
Nurse's Notes [facility] Name: Gilmer Mercado Age: 86 yrs Sex: Male : 1935 Arrival Date: 03/23/2022 Time: 11:39 Bed 6 Private MD: Diagnosis: Acute on chronic kidney disease;Hyponatremia;Hypokalemia;Difficulty swallowing Presentation: 03/23 11:39 Chief complaint: EMS states: difficulty eating that began 2 weeks ago, pt now c/o aa5 generalized weakness. 11:39 Coronavirus screen: At this time, the client does not indicate any symptoms associated aa5 with coronavirus-19. Ebola Screen: Patient denies travel to an Ebola-affected area in the 21 days before illness onset. Initial Sepsis Screen: Does the patient meet any 2 criteria? No. Patient's initial sepsis screen is negative. Does the patient have a suspected source of infection? No. Patient's initial sepsis screen is negative. Risk Assessment: Do you want to hurt yourself or someone else? Patient reports no desire to harm self or others. Onset of symptoms was March 2022. 11:39 Acuity: VIN 3 aa5 11:39 Method Of Arrival: EMS: [facility] aa5 Historical: - Allergies: 11:39 No Known Allergies; aa5 - Home Meds: 12:19 allopurinol 300 mg oral tab once daily [Active]; Albuterol Inhl 1 puff every 6 hours aa5 [Active]; amiodarone 200 mg Oral tab 1 tab once daily [Active]; buspirone 5 mg Oral tab 3 times per day [Active]; carvedilol 6.25 mg oral tab 2 times per day [Active]; cetirizine 5 mg oral tab once daily [Active]; Plavix 75 mg Oral tab 1 tab once daily [Active]; clotrimazole-betamethasone 1-0.05 % Topical crea 2 times per day [Active]; colesevelam 625 mg oral tab 2 times per day [Active]; colesevelam 625 mg oral tab 2 times per day [Active]; donepezil 10 mg oral tab BID [Active]; Eliquis 2.5 mg oral tab 2 times per day [Active]; Fiasp U-100 Insulin 100 unit/mL subcutaneous soln three times a day [Active]; gabapentin 300 mg oral cap BID [Active]; levothyroxine 175 mcg cap once daily [Active]; methocarbamol 500 mg Oral tab nightly [Active]; metolazone 2.5 mg oral tab Mon [Active]; metolazone 2.5 mg oral tab every friday, friday, and friday [Active]; ondansetron HCl 4 mg Oral tab every 8 hrs PRN [Active]; pantoprazole 40 mg oral grps 2 times per day [Active]; paroxetine HCl 10 mg oral tab once daily [Active]; ramelteon 8 mg oral tab 1 tab once daily [Active]; tamsulosin 0.4 mg oral cap 1 cap once daily [Active]; torsemide 20 mg oral tab once daily [Active]; Tresiba FlexTouch U-100 100 unit/mL (3 mL) subcutaneous inpn 40 units SQ daily [Active]; Vascepa 1 gram oral cap 2 caps 2 times per day [Active]; - PMHx: 11:39 Alzheimer's disease; BPH; Diabetes - IDDM; High Cholesterol; Hypertension; Pacemaker; aa5 Pneumonia; - PSHx: 11:39 CABG; pacemaker; aa5 - Immunization history:: Adult Immunizations unknown. - Social history:: Smoking status: Patient denies any tobacco usage or history of. Screenin:15 Abuse screen: Denies threats or abuse. Nutritional screening: No deficits noted. aa5 Tuberculosis screening: No symptoms or risk factors identified. Fall Risk Secondary diagnosis (15 points) Alzheimer's, IV access (20 points). Mental Status- Overestimates/Forgets Limitations (15 pts.). Total Bell Fall Scale indicates High Risk Score (45 or more points). Fall prevention measures have been instituted. Side Rails Up X 2 Placed Close to Nursing Station. Assessment: 11:40 General: Appears uncomfortable, Behavior is calm, cooperative. Pain: Denies pain. aa5 Neuro: Level of Consciousness is awake, alert, obeys commands, Oriented to person, place, time, situation, Newspaper Correspondent are weak bilaterally Moves all extremities. Weakness in bilateral arm(s) leg(s) Speech is normal, Facial symmetry appears normal, Pupils are PERRLA, Reports generalized weakness . Cardiovascular: Heart tones S1 S2 present Rhythm is regular. Respiratory: Airway is patent Respiratory effort is even, unlabored, Respiratory pattern is regular, symmetrical, Breath sounds are clear bilaterally. GI: Abdomen is round non-distended, Bowel sounds present X 4 quads. Abd is soft and non tender X 4 quads. Reports nausea. : No signs and/or symptoms were reported regarding the genitourinary system. EENT: Oral mucosa is moist. Reports difficulty swallowing since 2 weeks ago. Derm: Skin is pink, warm \T\ dry. Decubitus located on sacrum is stage I. Musculoskeletal: Range of motion: intact in all extremities. 12:01 Reassessment: Awaiting urine specimen, pt notified of need for urine. . aa5 13:00 Reassessment: Patient is alert, oriented x 3, equal unlabored respirations, skin aa5 warm/dry/pink. Recollected chem 7 and sent to lab . 13:00 Reassessment: Pt cleaned of urine, wet brief noted, clean brief applied. . aa5 14:20 Reassessment: No difficulty swallowing noted or reported when administering potassium aa5 PO. 15:00 Reassessment: Patient is alert, oriented x 3, equal unlabored respirations, skin aa5 warm/dry/pink. 16:00 Reassessment: Patient is alert, oriented x 3, equal unlabored respirations, skin aa5 warm/dry/pink. Awaiting room assignment. . 16:00 Reassessment: Pt cleaned of stool, clean brief applied. . aa5 17:50 Reassessment: Patient is alert, oriented x 3, equal unlabored respirations, skin aa5 warm/dry/pink. Vital Signs: 11:39 BP 105 / 53; Pulse 71; Resp 14 S; Temp 97.8(O); Pulse Ox 95% on R/A; Weight 89.81 kg aa5 (R); Height 5 ft. 11 in. (180.34 cm) (R); Pain 0/10; 13:05 BP 116 / 51; Pulse 70; Resp 16 S; Pulse Ox 97% on R/A; aa5 14:00 BP 110 / 51; Pulse 70; Resp 16 S; Pulse Ox 97% on R/A; aa5 15:00 BP 114 / 53; Pulse 70; Resp 14 S; Temp 98.0(TE); Pulse Ox 97% on R/A; aa5 16:00 BP 110 / 56; Pulse 70; Resp 16 S; Pulse Ox 98% on R/A; aa5 17:20 BP 119 / 51; Pulse 70; Resp 14 S; Temp 97.8(TE); Pulse Ox 99% on R/A; aa5 11:39 Body Mass Index 27.62 (89.81 kg, 180.34 cm) aa5 ED Course: 11:39 Patient arrived in ED. eb 11:39 Marcia Villasenor MD is Attending Physician. sd2 11:39 Arm band placed on Patient placed in an exam room, on a stretcher. aa5 11:39 Patient has correct armband on for positive identification. Bed in low position. Call aa5 light in reach. Side rails up X2. Pulse ox on. NIBP on. 11:40 Liliya Amador, LUCERO is Primary Nurse. aa5 11:45 Initial lab(s) drawn, by me. Inserted saline lock: 20 gauge in right forearm, using aa5 aseptic technique. 12:03 Triage completed. aa5 12:36 XRAY Chest (1 view) In Process Unspecified. EDMS 14:09 Elvis Issa MD is Hospitalizing Provider. sd2 17:50 No provider procedures requiring assistance completed. Patient admitted, IV remains in aa5 place. Administered Medications: 12:01 Drug: NS 0.9% 500 ml Route: IV; Rate: bolus; Site: right forearm; aa5 12:55 Follow up: IV Status: Completed infusion; IV Intake: 500ml aa5 14:20 Drug: Potassium Effervescent Tablet 50 mEq Route: PO; aa5 15:00 Follow up: Response: No adverse reaction aa5 14:59 Drug: NS 0.9% 500 ml Route: IV; Rate: bolus; Site: right forearm; aa5 17:00 Follow up: IV Status: Completed infusion; IV Intake: 500ml aa5 14:59 Drug: Potassium Chloride 10 mEq Route: IV; Rate: bolus; Site: right forearm; aa5 17:00 Follow up: IV Status: Completed infusion aa5 Medication: 17:50 VIS not applicable for this client. aa5 Intake: 12:55 IV: 500ml; Total: 500ml. aa5 17:00 IV: 500ml; Total: 1000ml. aa5 Output: 14:45 Urine: 200ml (Voided); Total: 200ml. aa5 Outcome: 14:10 Decision to Hospitalize by Provider. sd2 17:50 Admitted to Med/surg accompanied by tech, via stretcher, with chart, Report called to troy Mello RN 17:50 Condition: stable 17:50 Instructed on the need for admit, Demonstrated understanding of instructions. 17:55 Patient left the ED. aa5 Signatures: Dispatcher [employer] EDBarbara Velazquez RN RN iw Calderon, Audri, RN RN aa5 Jessika Rinaldi Stephanie, MD MD sd2 Corrections: (The following items were deleted from the chart) 12:05 11:39 PMHx: PNUEMONIA; aa5 [facility] 12:05 11:39 [facility]; [facility] 15:47 11:40 Neuro: Level of Consciousness is awake, alert, obeys commands, Oriented to aa5 person, place, time, situation, Newspaper Correspondent are weak bilaterally Moves all extremities. Weakness in bilateral arm(s) leg(s) Speech is normal, Facial symmetry appears normal, Pupils are PERRLA, 5 17:41 11:40 Derm: Skin is pink, warm \T\ dry. 5 [facility] 17:47 11:40 Derm: Skin is pink, warm \T\ dry. Decubitus located on sacrum is stage I [facility] 17:56 11:45 Initial lab(s) drawn, by me, by EMS personnel. [facility] 18:43 18:32 Patient left the ED. [facility] 18:44 18:00 Patient left the ED. aa5 [facility]
[2022-03-23] MEDS ORDERED: POTASSIUM 25 MEQ EFFERV TAB ONE (14:45)
[2022-03-23 14:51] LABS: Urine Blood Negative (Negative); Urine Glucose 2+ (Negative); Urine Protein Negative (Negative); Urine pH 5.5 (5.0-7.0)
[2022-03-23] MEDS ORDERED: POTASSIUM CL IV ONE (15:00)
[2022-03-23] MEDS ORDERED: NA CHLORIDE 0.9% IV ONE (15:00)
[2022-03-23] MEDS ORDERED: KCL 20 MEQ/100 mL IVPB 100 ML IV ONE (15:03)
--- NOTE | 2022-03-23 15:08 | P.HP ---
Certification for Inpatient With expected LOS: >2 Midnights Practitioner: I am a practitioner with admitting privileges, knowledge of patient current condition, hospital course, and medical plan of care. Services: Services provided to patient in accordance with Admission requirements found in Title 42 Section 412.3 of the Code of Federal Regulations Patient History Date of Service: 03/23/22 Reason for admission: Unable to eat, weakness, A/C renal failure, Electrolyte abnormalities History of Present Illness: Patient is 86 years of age history of chronic liver failure presented to the emergency room by EMS which you complained of generalized weakness ddifficulty with the digesting food difficulty swallowing complaining of dysphagia is not easy has no difficulty with fluids. Is able to drink appropriately also feels the hungry. Is been going on for quite some time has not been evaluated has never had an endoscopy done denies any fever, vomiting, diarrhea or urinary symptoms.Patient was admitted with acute and chronic renal failure he was seen by nephrology last visit [facility] for congestive heart failure. Patient states that this problem with his dysphagia has been going on for a number of years never mentioned to any doctors before has never been evaluated to have most problem with eating breakfast Allergies No Known Allergies Allergy (Verified 10/24/21 07:23) Home Medications: Tamsulosin [Flomax*] 0.4 mg PO DAILY cap 08/17/21 Apixaban [Eliquis] 2.5 mg PO BID 12/03/21 Cetirizine HCl [Zyrtec*] 5 mg PO DAILY 12/03/21 Clopidogrel Bisulfate [Plavix*] 75 mg PO DAILY 12/03/21 Colesevelam [Welchol*] 625 mg PO BIDWM 12/03/21 Gabapentin 600 mg PO BID 12/03/21 Pantoprazole [Protonix Tab*] 40 mg PO BID 12/03/21 Ramelteon 8 mg PO BEDTIME 12/03/21 carvediloL [Carvedilol] 6.25 mg PO BID 12/03/21 Donepezil HCl [Aricept] 10 mg PO BID 12/13/21 Insulin Aspart [Insulin Aspart Flexpen] 20 unit SQ TIDWM 12/13/21 Levothyroxine Sodium 150 mcg PO DAILY 12/13/21 icosapent ethyL [Vascepa 1 gm Cap] 2 cap PO BID 12/13/21 Insulin Degludec [Tresiba] 10 unit SQ DAILY AFTER SUPPER #1 vial 12/17/21 Berhane [Berhane*] 1 pkt PO BID #60 powd.pack 12/17/21 Torsemide [Demadex*] 20 mg PO BID #60 tab 02/10/22 - Past Medical/Surgical History Diabetic: Yes -: Diabetes mellitus type 2 -: Hypertension -: Diastolic CHF with Pulmonary HTN & Severe TR -: Aortic stenosis requiring percutaneous replacement, December 2015 -: 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 -: CKD III (Dr. Peraza) -: BPH with LUTS/ Hx urinary retention -: Gout -: Hypothyroidism -: GERD -: Atrial fibrillation -: HLD -: Thyroidectomy -: CABG x4 vessels -: 2 cardiac stents -: Aortic valve replacement percutaneously, December 2015 -: Cholecystectomy -: Phimosiectomy Psychosocial/ Personal History: Currently resides at assisted living facility - Family History Father -: Heart disease Brother -: Heart disease - Social History Alcohol use: No CD- Drugs: No Caffeine use: Yes Physical Examination - Vital Signs Temperature: 97.8 F Blood Pressure: 105/53 Pulse: 71 Respirations: 14 Pulse Ox (%): 95 - Physical Exam General: Alert, In no apparent distress, Oriented x3 Neck: Other Respiratory: Normal air movement Cardiovascular: No edema, Normal S1 S2 Gastrointestinal: Normal bowel sounds, Soft and benign Musculoskeletal: No clubbing, Swelling Integumentary: No rashes, No breakdown - Studies Laboratory Data (last 24 hrs) 03/23/22 13:00: Sodium 127 L, Potassium 3.0 L, BUN 122 H, Creatinine 3.63 H, Glucose 269 H, Magnesium 2.3, Total Bilirubin 0.4, AST 19, ALT 16, Alkaline Phosphatase 81 03/23/22 11:50: WBC 8.90, Hgb 11.3 L, Hct 34.1 L, Plt Count 165 Assessment and Plan - Problems (Diagnosis) (1) Dysphagia Current Visit: Yes Status: Acute Plan: Patient is 86 years of age admitted with unable to swallow certain types of food he has no problems with liquids been going on for a number of years never had any swallowing evaluation or endoscopy done no prior history of stroke card acute on chronic renal failure multiple other medical problems listed his renal function is worse be admitted for GI evaluation barium swallow (2) Acute on chronic renal failure Onset Date: 05/22/18 Current Visit: No Status: Acute Plan: Acute on chronic renal failure started on IV fluids nephrology consult labs reviewed Qualifiers: Acute renal failure type: unspecified Chronic kidney disease stage: stage 4 (severe) Qualified Code(s): N17.9 - Acute kidney failure, unspecified; N18.4 - Chronic kidney disease, stage 4 (severe) - Advance Directives Does patient have a Living Will: Yes Does patient have a Durable POA for Healthcare: Yes
[2022-03-23 15:10] LABS: Urine Mucus Slight /HPF (None Seen); Urine RBC <5 /HPF (None Seen)
[2022-03-23 15:59] LABS: SARS-CoV-2 Antigen Rapid Res Negative (Negative)
[2022-03-23] MEDS: INSULIN -REGULAR HUMAN 50 UNIT/0.5 ML ML SQ SCH ×2 (16:30→21:31)
[2022-03-23 18:29] VITALS: BMI 27.6
[2022-03-23] MEDS: NACHLORIDE 0.45% 1,000 ML IV SCH (18:32)
[2022-03-24 04:00] LABS: Absolute Lymphocytes (CBC) 4.1 K/uL (0.7-4.9); Hematocrit 32.8 % (39.6-49.0); Lymphocytes % 47.8 % (15.3-44.8); MCV 87.2 fL (80-100); RBC Red Blood Cell Count 3.77 M/uL (4.33-5.43)
[2022-03-24 04:05] LABS: Albumin 3.1 g/dL (3.4-5.0); Bilirubin Total 0.5 mg/dL (0.2-1.0)
[2022-03-24 04:18] LABS: Potassium 2.7 mmol/L (3.5-5.1)
[2022-03-24] MEDS: NACHLORIDE 0.45% 1,000 ML IV SCH ×2 (04:39→08:39)
[2022-03-24] MEDS ORDERED: KCL 20 MEQ/100 mL IVPB 20 MEQ/100 ML BAG IV SCH (05:00)
[2022-03-24] MEDS: INSULIN -REGULAR HUMAN 50 UNIT/0.5 ML ML SQ SCH ×4 (07:30→21:25)
--- NOTE | 2022-03-24 09:42 | P.PN ---
Subjective Date of Service: 03/24/22 Chief Complaint: Unable to eat, weakness, A/C renal failure, Electrolyte abnormalities Subjective: Improving (Patient is doing better no new change) Review of Systems Unremarkable General: Weakness Physical Examination - Vital Signs Temperature: 97.9 F Blood Pressure: 115/62 Pulse: 75 Respirations: 18 Pulse Ox (%): 95 - Physical Exam General: Alert, In no apparent distress, Oriented x3 Neck: Supple Respiratory: Clear to auscultation bilaterally Cardiovascular: No edema, Regular rate/rhythm - Studies Laboratory Data (last 24 hrs) 03/23/22 13:00: Sodium 127 L, Potassium 3.0 L, BUN 122 H, Creatinine 3.63 H, Glucose 269 H, Magnesium 2.3, Total Bilirubin 0.4, AST 19, ALT 16, Alkaline Phosphatase 81 03/23/22 11:50: WBC 8.90, Hgb 11.3 L, Hct 34.1 L, Plt Count 165 Assessment And Plan - Current Problems (Diagnosis) (1) Dysphagia Current Visit: Yes Status: Acute Plan: Awaiting barium swallow prior soft or liquid diet for now (2) Acute on chronic renal failure Onset Date: 05/22/18 Current Visit: No Status: Acute Plan: Renal function is improving with IV fluids hypokalemia replace potassium Qualifiers: Acute renal failure type: unspecified Chronic kidney disease stage: stage 4 (severe) Qualified Code(s): N17.9 - Acute kidney failure, unspecified; N18.4 - Chronic kidney disease, stage 4 (severe)
[2022-03-24] MEDS: POTASSIUM 25 MEQ EFFERV TAB PO SCH (09:57)
--- NOTE | 2022-03-24 10:10 | P.CNS ---
Date of Consult: 03/24/22 Reason for Consult: KORI/CKD Requesting Physician: Elvis Issa Chief Complaint: Unable to eat, weakness, A/C renal failure, Electrolyte abnormalities History of Present Illness: Patient is 86 years of age history of chronic liver failure presented to the emergency room by EMS which you complained of generalized weakness ddifficulty with the digesting food difficulty swallowing complaining of dysphagia is not easy has no difficulty with fluids. Is able to drink appropriately also feels the hungry. Is been going on for quite some time has not been evaluated has never had an endoscopy done denies any fever, vomiting, diarrhea or urinary symptoms.Patient was admitted with acute and chronic renal failure he was seen by nephrology last visit we trust for congestive heart failure. Patient states that this problem with his dysphagia has been going on for a number of years never mentioned to any doctors before has never been evaluated to have most problem with eating brekfast. 11:40 This 86 yrs old Male presents to ER via Unassigned with complaints of generalized sd2 weakness. 11:40 86-year-old male presents via EMS with chief complaint of generalized weakness. He sd2 reports he has a difficulty with digesting the food. When I inquired further, it appears the patient has difficulty with actually swallowing the food and getting it to go down. He has no difficulty with fluids and has been able to drink appropriately. He reports he feels weak due to the fact that he thinks he is hungry and has not been able to eat appropriately. He reports this has been ongoing for quite some time and that he did see his doctor about it at some point and that no further testing was done. He cannot recall whether or not he has ever had an endoscopy but believes he has had a colonoscopy in the past. He denies any fevers, vomiting, diarrhea or urinary symptoms. He does endorse nausea and was given 4 mg of Zofran prior to arrival with EMS.. Allergies No Known Allergies Allergy (Verified 10/24/21 07:23) Home medications list reviewed: Yes Home Medications: Albuterol Inhaler [Ventolin Inhaler*] 1 puff IH Q6H 03/23/22 Allopurinol 300 mg PO DAILY 03/23/22 Amiodarone HCl [Pacerone] 200 mg PO DAILY 03/23/22 Apixaban [Eliquis] 2.5 mg PO BID 03/23/22 Buspirone HCl 5 mg PO TID 03/23/22 Cetirizine HCl [Zyrtec] 5 mg PO DAILY 03/23/22 Clopidogrel Bisulfate [Plavix] 75 mg PO DAILY 03/23/22 Clotrimazole/Betamethasone Dip [Clotrimazole-Betamethasone Crm] 45 gm TP BID 03/23/22 Colesevelam [Welchol] 625 mg PO BID 03/23/22 Donepezil HCl 10 mg PO BID 03/23/22 Gabapentin 300 mg PO BID 03/23/22 Insulin Aspart (Niacinamide) [Fiasp 100 Unit/ml Vial] 100 unit SQ TID 03/23/22 Insulin Degludec [Tresiba Flextouch U-100] 40 unit SQ DAILY 03/23/22 Levothyroxine Sodium [Levothyroxine] 175 mcg PO [id number] 03/23/22 Ondansetron HCl 4 mg PO Q8H PRN 03/23/22 Pantoprazole [Protonix Tab] 40 mg PO BID 03/23/22 Paroxetine HCl [Paxil] 40 mg PO DAILY 03/23/22 Ramelteon 8 mg PO DAILY 03/23/22 Tamsulosin [Flomax*] 1 cap PO DAILY 03/23/22 Torsemide [Demadex] 20 mg PO DAILY 03/23/22 carvediloL [Carvedilol] 6.25 mg PO BID 03/23/22 icosapent ethyL [Vascepa 1 gm Cap] 2 cap PO BID 03/23/22 metOLazone [Zaroxolyn] 2.5 mg PO SEECOM 03/23/22 methocarbamoL [Methocarbamol] 500 mg PO BEDTIME 03/23/22 - Past Medical/Surgical History Diabetic: Yes -: Diabetes mellitus type 2 -: Hypertension -: Diastolic CHF with Pulmonary HTN & Severe TR -: Aortic stenosis requiring percutaneous replacement, December 2015 -: 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 -: CKD III (Dr. Peraza) -: BPH with LUTS/ Hx urinary retention -: Gout -: Hypothyroidism -: GERD -: Atrial fibrillation -: HLD -: Thyroidectomy -: CABG x4 vessels -: 2 cardiac stents -: Aortic valve replacement percutaneously, December 2015 -: Cholecystectomy -: Phimosiectomy Psychosocial/ Personal History: Currently resides at assisted living facility - Family History Father Medical History: Heart disease Brother Medical History: Heart disease - Social History Smoking Status: Unknown if ever smoked Alcohol use: No CD- Drugs: No Caffeine use: Yes Place of Residence: Home Review of Systems 10-point ROS is otherwise unremarkable General: Weakness, Malaise Gastrointestinal: Diarrhea Physical Examination Temp Pulse Resp BP Pulse Ox 97.8 F 71 14 105/53 L 95 03/24/22 09:42 03/24/22 09:42 03/24/22 09:42 03/24/22 09:42 03/24/22 09:42 General: Oriented x3, Cooperative, Mild distress HEENT: Atraumatic Neck: Supple Respiratory: Clear to auscultation bilaterally Cardiovascular: No edema, Regular rate/rhythm Gastrointestinal: Soft and benign, Non-distended Musculoskeletal: No clubbing, No contractures Integumentary: No rashes, No cyanosis Neurological: Normal speech Laboratory Data (last 24 hrs) 03/23/22 13:00: Sodium 127 L, Potassium 3.0 L, BUN 122 H, Creatinine 3.63 H, Glucose 269 H, Magnesium 2.3, Total Bilirubin 0.4, AST 19, ALT 16, Alkaline Phosphatase 81 03/23/22 11:50: WBC 8.90, Hgb 11.3 L, Hct 34.1 L, Plt Count 165 Imagings Data: EXAM DESCRIPTION: Shital Single View03/23/2022 12:34 pm CLINICAL HISTORY: Difficulty swallowing/weakness COMPARISON: February 2022 FINDINGS: The lungs appear clear of acute infiltrate. The heart is mildly enlarged. Postsurgical changes involve the chest. Pacemaker leads place IMPRESSION: No acute abnormalities displayed Conclusions/Impression: KORI in the setting of hypovolemia and hypotension CKD III with proteinuria -No NSAIDs -Change IVF to NS Hyponatremia -Continue IVF with NS Hypokalemia -Replete potassium as ordered Alkalosis -Replete potassium HTN with CKD/ CHF complicated by hypotension -Continue Coreg with holding parameters Diastolic CHF, chronic Pulmonary HTN -Daily weight -Hold diuretics DM II with CKD & Polyneuropathy -Continue Tresiba -RISS -Continue Gabapentin Anemia in chronic illness Iron Deficiency -Monitor H&H -Consider iron supplementation CKD MBD HyperPTH -Start Vitamin D Gout -Continue Allopurinol BPH with LUTS -Continue Flomax Case reviewed with Dr. Issa Thank you kindly for the referral
[2022-03-24] MEDS ORDERED: ONDANSETRON 4 MG (ODT) TAB PO PRN (11:46)
[2022-03-24] MEDS ORDERED: POTASSIUM CL SA 10 MEQ TAB PO ONE (12:13)
[2022-03-24] MEDS: BUSPIRONE HCL 5 MG TABLET PO SCH ×2 (13:01→21:24)
[2022-03-24] MEDS: NA CHLORIDE 0.9% 1,000 ML IV SCH ×3 (13:01→21:53)
[2022-03-24 18:43] LABS: Potassium 3.6 mmol/L (3.5-5.1)
[2022-03-24] MEDS ORDERED: HOME MED 1 EA UNK (Donepezil Hcl [Donepezil Hcl] 10 MG Tablet) PO SCH (21:00)
[2022-03-24] MEDS: COLESEVELAM 625 MG PO SCH (21:00)
[2022-03-24] MEDS ORDERED: carvediloL 6.25 MG TAB PO SCH (21:00)
[2022-03-24] MEDS: methocarbamoL 500 MG TAB PO SCH (21:22)
[2022-03-24] MEDS: APIXABAN 2.5 MG TABLET PO SCH (21:24)
[2022-03-24] MEDS: GABAPENTIN 300 MG CAP PO SCH (21:24)
[2022-03-24] MEDS: carvediloL 6.25 MG TAB PO SCH (21:24)
[2022-03-24] MEDS: DONEPEZIL HCL 5 MG TAB PO SCH (21:34)
[2022-03-24] MEDS ORDERED: DONEPEZIL HCL 5 MG TAB ONE (21:41)
[2022-03-25 04:08] LABS: Bilirubin Total 0.5 mg/dL (0.2-1.0); Potassium 3.4 mmol/L (3.5-5.1); Protein, Total 6.7 g/dL (6.4-8.2)
[2022-03-25] MEDS: LEVOTHYROXINE SOD 0.1 MG TAB PO SCH (05:32)
[2022-03-25] MEDS: LEVOTHYROXINE SOD 0.075 MG TAB PO SCH (05:33)
[2022-03-25] MEDS ORDERED: HOME MED 1 EA UNK (Levothyroxine Sodium [Levothyroxine] 175 MCG Capsule) PO SCH (06:00)
[2022-03-25] MEDS: INSULIN -REGULAR HUMAN 50 UNIT/0.5 ML ML SQ SCH ×4 (07:30→21:00)
[2022-03-25] MEDS: carvediloL 6.25 MG TAB PO SCH ×2 (07:36→21:00)
[2022-03-25] MEDS: BUSPIRONE HCL 5 MG TABLET PO SCH ×3 (07:36→21:00)
[2022-03-25] MEDS: COLESEVELAM 625 MG PO SCH ×2 (07:36→21:00)
[2022-03-25] MEDS: AMIODARONE HCL 200 MG TAB PO SCH (07:36)
[2022-03-25] MEDS: DONEPEZIL HCL 5 MG TAB PO SCH ×2 (07:36→21:00)
[2022-03-25] MEDS: CLOPIDOGREL 75 MG TABLET PO SCH (07:37)
[2022-03-25] MEDS: HOME MED 1 EA UNK (Insulin Degludec [Tresiba Flextouch U-100] 100 UNIT/ML Insuln.Pen) SQ SCH (07:37)
[2022-03-25] MEDS: APIXABAN 2.5 MG TABLET PO SCH ×2 (07:37→21:00)
[2022-03-25] MEDS: GABAPENTIN 300 MG CAP PO SCH ×2 (07:37→21:00)
[2022-03-25] MEDS: POTASSIUM 25 MEQ EFFERV TAB PO SCH (07:37)
[2022-03-25] MEDS: TAMSULOSIN 0.4 MG SR CAP PO SCH (07:37)
[2022-03-25] MEDS: allopurinoL 300 MG TAB PO SCH (07:38)
[2022-03-25] MEDS ORDERED: POTASSIUM CL SA 10 MEQ TAB PO ONE (10:52)
[2022-03-25 13:12] LABS: C.diff Antigen/Toxin Ag neg : Tox neg (NEG : NEG)
--- NOTE | 2022-03-25 13:56 | P.PN ---
Subjective Date of Service: 03/25/22 Chief Complaint: Unable to eat, weakness, A/C renal failure, Electrolyte abnormalities Patient has no new complain. He is currently n.p.o. for barium swallow studies. Physical Examination - Vital Signs Temperature: 97.0 F Blood Pressure: 129/63 Pulse: 70 Respirations: 18 Pulse Ox (%): 98 Assessment And Plan - Plan Patient awaiting barium swallow study. Currently n.p.o. Renal function is trending down. Continue IV fluid. Monitor BMP and optimize electrolytes. Nephrology is following and assisting with management of the acute renal failure. Insulin sliding scale for glucose management.
[2022-03-25] MEDS ORDERED: POTASSIUM CL 40 MEQ in NA CHLORIDE 0.9% 500 ML IV SCH (15:00)
[2022-03-25] MEDS: D5 0.9 NS 1,000 ML IV SCH (15:24)
[2022-03-25] MEDS: methocarbamoL 500 MG TAB PO SCH (21:00)
--- NOTE | 2022-03-25 21:30 | P.PN ---
Date of Service: 03/25/22 Vital Signs Temp Pulse Resp BP Pulse Ox 97.1 F 70 18 146/64 H 100 03/25/22 16:00 03/25/22 16:00 03/25/22 16:00 03/25/22 16:00 03/25/22 16:00 Medications Allopurinol (Allopurinol 300 Mg Tab) 300 mg PO DAILY [facility] Last Admin: 03/25/22 07:38 Dose: Not Given Amiodarone HCl (Amiodarone Hcl 200 Mg Tab) 200 mg PO DAILY [facility] Last Admin: 03/25/22 07:36 Dose: Not Given Apixaban (Apixaban 2.5 Mg Tablet) 2.5 mg PO BID [facility] Last Admin: 03/25/22 07:37 Dose: Not Given Buspirone HCl (Buspirone Hcl 5 Mg Tablet) 5 mg PO TID [facility] Last Admin: 03/25/22 14:00 Dose: Not Given Carvedilol (Carvedilol 6.25 Mg Tab) 6.25 mg PO BID [facility] Last Admin: 03/25/22 07:36 Dose: Not Given Clopidogrel Bisulfate (Clopidogrel 75 Mg Tablet) 75 mg PO DAILY [facility] Last Admin: 03/25/22 07:37 Dose: Not Given Donepezil HCl (Donepezil Hcl 5 Mg Tab) 10 mg PO BID [facility] Last Admin: 03/25/22 07:36 Dose: Not Given Gabapentin (Gabapentin 300 Mg Cap) 300 mg PO BID [facility] Last Admin: 03/25/22 07:37 Dose: Not Given Home Med (Colesevelam [Welchol*]) 625 mg PO BID [facility] Last Admin: 03/25/22 07:36 Dose: Not Given Home Med (Insulin Degludec [Tresiba Flextouch U-100]) 40 unit SQ DAILY [facility] Last Admin: 03/25/22 07:37 Dose: Not Given Dextrose/Sodium Chloride (D5w Ns 1-Liter Bag) 1,000 mls @ 75 mls/hr IV .[id number] [facility] Last Admin: 03/25/22 15:24 Dose: 1,000 mls Insulin Human Regular (Insulin -Regular Human 50 Unit/0.5 Ml Ml) 0 unit SQ ACHS [facility]; Protocol Last Admin: 03/25/22 16:30 Dose: Not Given Levothyroxine Sodium (Levothyroxine Sod 0.1 Mg Tab) 0.1 mg PO DAILYAC [facility] Last Admin: 03/25/22 05:32 Dose: 0.1 mg Levothyroxine Sodium (Levothyroxine Sod 0.075 Mg Tab) 0.075 mg PO DAILYAC [facility] Last Admin: 03/25/22 05:33 Dose: 0.075 mg Methocarbamol (Methocarbamol 500 Mg Tab) 500 mg PO BEDTIME [facility] Last Admin: 03/24/22 21:22 Dose: 500 mg Ondansetron HCl (Ondansetron 4 Mg (Odt) Tab) 4 mg PO Q8H PRN PRN Reason: NAUSEA / VOMITING Potassium Bicarbonate (Potassium 25 Meq Efferv Tab) 25 meq PO DAILY [facility] Last Admin: 03/25/22 07:37 Dose: Not Given Sodium Chloride (Flush Normal Saline 10 Ml) 10 ml IV BID [facility] Last Admin: 03/25/22 07:37 Dose: Not Given Tamsulosin HCl (Tamsulosin 0.4 Mg Sr Cap) 0.4 mg PO DAILY [facility] Last Admin: 03/25/22 07:37 Dose: Not Given Assessment/ Plan: Nephrology No dyspnea No chest pain Feeling better Plan for barium swallow today No acute events overnight Vitals, medications, blood work and imaging reviewed in the chart. General: Oriented, Cooperative, No distress HEENT: Atraumatic Neck: Supple Respiratory: Clear to auscultation bilaterally Cardiovascular: No edema, Regular rate/rhythm Gastrointestinal: Soft and benign, Non-distended Musculoskeletal: No clubbing, No contractures Integumentary: No rashes, No cyanosis Neurological: Normal speech Laboratory Data 03/23/22 13:00: Sodium 127 L, Potassium 3.0 L, BUN 122 H, Creatinine 3.63 H, Glucose 269 H, Magnesium 2.3, Total Bilirubin 0.4, AST 19, ALT 16, Alkaline Phosphatase 81 03/23/22 11:50: WBC 8.90, Hgb 11.3 L, Hct 34.1 L, Plt Count 165 Imagings Data: EXAM DESCRIPTION: Shital Single View03/23/2022 12:34 pm CLINICAL HISTORY: Difficulty swallowing/weakness COMPARISON: February 2022 FINDINGS: The lungs appear clear of acute infiltrate. The heart is mildly enlarged. Postsurgical changes involve the chest. Pacemaker leads place IMPRESSION: No acute abnormalities displayed Conclusions/Impression: KORI in the setting of hypovolemia and hypotension CKD III with proteinuria -No NSAIDs -Continue IVF with NS Hyponatremia -Continue IVF with NS Hypokalemia -Replete potassium Alkalosis -Replete potassium -Continue CPAP HTN with CKD/ CHF complicated by hypotension -Continue Coreg with holding parameters RAYSA -Continue CPAP prn Diastolic CHF, chronic Pulmonary HTN -Daily weight -Hold diuretics DM II with CKD & Polyneuropathy -Continue Tresiba -RISS -Continue Gabapentin Anemia in chronic illness Iron Deficiency -Monitor H&H -Consider iron supplementation CKD MBD HyperPTH -Continue Vitamin D Gout -Continue Allopurinol BPH with LUTS -Continue Flomax
[2022-03-25] MEDS ORDERED: HYDRALAZINE HCL 20 MG/ML VIAL IV PRN (21:36)
[2022-03-26] MEDS: LEVOTHYROXINE SOD 0.1 MG TAB PO SCH (04:53)
[2022-03-26] MEDS: LEVOTHYROXINE SOD 0.075 MG TAB PO SCH (04:53)
[2022-03-26 05:18] LABS: Albumin 3.1 g/dL (3.4-5.0); Bilirubin Total 0.5 mg/dL (0.2-1.0); Potassium 3.7 mmol/L (3.5-5.1)
[2022-03-26] MEDS: D5 0.9 NS 1,000 ML IV SCH (05:43)
[2022-03-26] MEDS: INSULIN -REGULAR HUMAN 50 UNIT/0.5 ML ML SQ SCH ×5 (07:30→21:00)
[2022-03-26] MEDS: DONEPEZIL HCL 5 MG TAB PO SCH ×2 (07:45→20:34)
[2022-03-26] MEDS: carvediloL 6.25 MG TAB PO SCH ×2 (07:46→20:34)
[2022-03-26] MEDS: BUSPIRONE HCL 5 MG TABLET PO SCH ×3 (07:46→20:34)
[2022-03-26] MEDS: TAMSULOSIN 0.4 MG SR CAP PO SCH (07:46)
[2022-03-26] MEDS: APIXABAN 2.5 MG TABLET PO SCH ×2 (07:46→20:34)
[2022-03-26] MEDS: COLESEVELAM 625 MG PO SCH ×2 (07:46→20:36)
[2022-03-26] MEDS: AMIODARONE HCL 200 MG TAB PO SCH (07:46)
[2022-03-26] MEDS: HOME MED 1 EA UNK (Insulin Degludec [Tresiba Flextouch U-100] 100 UNIT/ML Insuln.Pen) SQ SCH (07:47)
[2022-03-26] MEDS: CLOPIDOGREL 75 MG TABLET PO SCH (07:47)
[2022-03-26] MEDS: GABAPENTIN 300 MG CAP PO SCH ×2 (07:47→20:34)
[2022-03-26] MEDS: POTASSIUM 25 MEQ EFFERV TAB PO SCH (07:47)
[2022-03-26] MEDS: allopurinoL 300 MG TAB PO SCH (07:47)
[2022-03-26] MEDS ORDERED: POTASSIUM CL SA 10 MEQ TAB PO ONE (08:00)
[2022-03-26] MEDS ORDERED: ONDANSETRON 4 MG/2 ML VIAL IV PRN ×2 (09:24→09:25)
--- NOTE | 2022-03-26 13:27 | P.PN ---
Subjective Date of Service: 03/26/22 Chief Complaint: Unable to eat, weakness, A/C renal failure, Electrolyte abnormalities Patient endorsed difficulty with swallowing which she stated is worse in the morning. He is currently n.p.o. for barium swallow studies. Physical Examination - Vital Signs Temperature: 96.8 F Blood Pressure: 142/60 Pulse: 75 Respirations: 20 Pulse Ox (%): 97 Assessment And Plan - Plan Barium swallow done and the result is pending. Currently n.p.o. Renal function continues to improve. Continue IV fluid. Monitor BMP and optimize electrolytes. Nephrology is following and assisting with management of the acute renal failure. Insulin sliding scale for glucose management.
--- NOTE | 2022-03-26 13:47 | RAD REPORT ---
EXAM DESCRIPTION: RAD - Esophagram Only - 03/26/2022 1:17 pm CLINICAL HISTORY: Dysphagia COMPARISON: None. FINDINGS: The exam was limited due to the patient's limited mobility. Patient demonstrated good bolus formation and good initiation of swallowing. There was pooling in the valleculae and pyriform sinuses accentuated due to the patient's kyphotic positioning for the examin ation. No aspiration or laryngeal penetration observed. Primary peristalsis was normal. No esophageal spasm or tertiary contractions. No intrinsic esophageal stricture, mass or web. No abnormality at the GE junction. No delay in transit of barium contrast across the GE junction into the stomach. There were 7 fluoroscopic cine loop acquisitions. Fluoro time was 43 seconds IMPRESSION: Patient demonstrated normal bolus formation, initiation of swallowing and primary perist alsis. Pooling of contrast in the valleculae and pyriform sinuses was present believed to be due primarily t o the patient's kyphotic positioning. No aspiration or laryngeal penetration. No intrinsic esophageal stricture, mass or web.
--- NOTE | 2022-03-26 19:41 | P.PN ---
Date of Service: 03/26/22 Vital Signs Temp Pulse Resp BP Pulse Ox 96.8 F 75 20 142/60 H 97 03/26/22 13:27 03/26/22 13:27 03/26/22 13:27 03/26/22 13:27 03/26/22 13:27 Medications Allopurinol (Allopurinol 300 Mg Tab) 300 mg PO DAILY [facility] Last Admin: 03/26/22 07:47 Dose: Not Given Amiodarone HCl (Amiodarone Hcl 200 Mg Tab) 200 mg PO DAILY [facility] Last Admin: 03/26/22 07:46 Dose: Not Given Apixaban (Apixaban 2.5 Mg Tablet) 2.5 mg PO BID [facility] Last Admin: 03/26/22 07:46 Dose: Not Given Buspirone HCl (Buspirone Hcl 5 Mg Tablet) 5 mg PO TID [facility] Last Admin: 03/26/22 15:06 Dose: 5 mg Carvedilol (Carvedilol 6.25 Mg Tab) 6.25 mg PO BID [facility] Last Admin: 03/26/22 07:46 Dose: Not Given Clopidogrel Bisulfate (Clopidogrel 75 Mg Tablet) 75 mg PO DAILY [facility] Last Admin: 03/26/22 07:47 Dose: Not Given Donepezil HCl (Donepezil Hcl 5 Mg Tab) 10 mg PO BID [facility] Last Admin: 03/26/22 07:45 Dose: Not Given Gabapentin (Gabapentin 300 Mg Cap) 300 mg PO BID [facility] Last Admin: 03/26/22 07:47 Dose: Not Given Home Med (Colesevelam [Welchol*]) 625 mg PO BID [facility] Last Admin: 03/26/22 07:46 Dose: Not Given Home Med (Insulin Degludec [Tresiba Flextouch U-100]) 40 unit SQ DAILY [facility] Last Admin: 03/26/22 07:47 Dose: Not Given Hydralazine HCl (Hydralazine Hcl 20 Mg/Ml Vial) 10 mg IV Q6HP PRN PRN Reason: Titrate to SBP (MUST DEFINE) Insulin Human Regular (Insulin -Regular Human 50 Unit/0.5 Ml Ml) 0 unit SQ [facility]; Protocol Last Admin: 03/26/22 17:30 Dose: 3 unit Levothyroxine Sodium (Levothyroxine Sod 0.1 Mg Tab) [facility] Last Admin: 03/26/22 04:53 Dose: Not Given Levothyroxine Sodium (Levothyroxine Sod 0.075 Mg Tab) 0.075 mg PO DAILYAC [facility] Last Admin: 03/26/22 04:53 Dose: Not Given Methocarbamol (Methocarbamol 500 Mg Tab) 500 mg PO BEDTIME [facility] Last Admin: 03/25/22 21:00 Dose: Not Given Ondansetron HCl (Ondansetron 4 Mg/2 Ml Vial) 4 mg IV Q6H PRN PRN Reason: NAUSEA / VOMITING Potassium Bicarbonate (Potassium 25 Meq Efferv Tab) 25 meq PO DAILY [facility] Last Admin: 03/26/22 07:47 Dose: Not Given Sodium Chloride (Flush Normal Saline 10 Ml) 10 ml IV BID [facility] Last Admin: 03/26/22 07:47 Dose: Not Given Tamsulosin HCl (Tamsulosin 0.4 Mg Sr Cap) 0.4 mg PO DAILY [facility] Last Admin: 03/26/22 07:46 Dose: Not Given Assessment/ Plan: Nephrology No dyspnea No chest pain Feeling better No acute events overnight Vitals, medications, blood work and imaging reviewed in the chart. General: Oriented, Cooperative, No distress HEENT: Atraumatic Neck: Supple Respiratory: Clear to auscultation bilaterally Cardiovascular: No edema, Regular rate/rhythm Gastrointestinal: Soft and benign, Non-distended Musculoskeletal: No clubbing, No contractures Integumentary: No rashes, No cyanosis Neurological: Normal speech Laboratory Data 03/23/22 13:00: Sodium 127 L, Potassium 3.0 L, BUN 122 H, Creatinine 3.63 H, Glucose 269 H, Magnesium 2.3, Total Bilirubin 0.4, AST 19, ALT 16, Alkaline Phosphatase 81 03/23/22 11:50: WBC 8.90, Hgb 11.3 L, Hct 34.1 L, Plt Count 165 Imagings Data: EXAM DESCRIPTION: Shital Single View03/23/2022 12:34 pm CLINICAL HISTORY: Difficulty swallowing/weakness COMPARISON: February 2022 FINDINGS: The lungs appear clear of acute infiltrate. The heart is mildly enlarged. Postsurgical changes involve the chest. Pacemaker leads place IMPRESSION: No acute abnormalities displayed IMPRESSION: Patient demonstrated normal bolus formation, initiation of swallowing and primary peristalsis. Pooling of contrast in the valleculae and pyriform sinuses was present believed to be due primarily to the patient's kyphotic positioning. No aspiration or laryngeal penetration. No intrinsic esophageal stricture, mass or web. Conclusions/Impression: KORI in the setting of hypovolemia and hypotension, improved with IVF CKD III with proteinuria -No NSAIDs Hyponatremia, resolved Hypokalemia -Replete potassium Alkalosis -Replete potassium -Continue CPAP HTN with CKD/ CHF -Continue Coreg RAYSA -Continue CPAP prn Diastolic CHF, chronic Pulmonary HTN -Daily weight -Hold diuretics at this time DM II with CKD & Polyneuropathy -Continue Tresiba -RISS -Continue Gabapentin Anemia in chronic illness Iron Deficiency -Monitor H&H -Consider iron supplementation CKD MBD HyperPTH -Continue Vitamin D Gout -Continue Allopurinol BPH with LUTS -Continue Flomax
[2022-03-26] MEDS: methocarbamoL 500 MG TAB PO SCH (20:34)
[2022-03-27 03:50] LABS: Absolute Lymphocytes (CBC) 2.9 K/uL (0.7-4.9); MCV 88.8 fL (80-100); MPV 7.8 fL (7.6-11.3)
[2022-03-27 03:57] LABS: Phosphorus 2.4 mg/dL (2.5-4.9); Potassium 3.9 mmol/L (3.5-5.1)
[2022-03-27] MEDS: LEVOTHYROXINE SOD 0.1 MG TAB PO SCH (05:47)
[2022-03-27] MEDS: LEVOTHYROXINE SOD 0.075 MG TAB PO SCH (05:47)
[2022-03-27] MEDS: INSULIN -REGULAR HUMAN 50 UNIT/0.5 ML ML SQ SCH ×2 (07:30→13:07)
[2022-03-27] MEDS: COLESEVELAM 625 MG PO SCH (08:17)
[2022-03-27] MEDS: TAMSULOSIN 0.4 MG SR CAP PO SCH (08:18)
[2022-03-27] MEDS: BUSPIRONE HCL 5 MG TABLET PO SCH (08:18)
[2022-03-27] MEDS: APIXABAN 2.5 MG TABLET PO SCH (08:18)
[2022-03-27] MEDS: DONEPEZIL HCL 5 MG TAB PO SCH (08:18)
[2022-03-27] MEDS: allopurinoL 300 MG TAB PO SCH (08:18)
[2022-03-27] MEDS: AMIODARONE HCL 200 MG TAB PO SCH (08:18)
[2022-03-27] MEDS: POTASSIUM 25 MEQ EFFERV TAB PO SCH (08:19)
[2022-03-27] MEDS: GABAPENTIN 300 MG CAP PO SCH (08:19)
[2022-03-27] MEDS: carvediloL 6.25 MG TAB PO SCH (08:20)
[2022-03-27] MEDS: CLOPIDOGREL 75 MG TABLET PO SCH (08:23)
[2022-03-27] MEDS: HOME MED 1 EA UNK (Insulin Degludec [Tresiba Flextouch U-100] 100 UNIT/ML Insuln.Pen) SQ SCH (09:00)
[2022-03-27 09:39] VITALS: O2SAT 100
[2022-03-27] MEDS ORDERED: LOPERAMIDE HCL 2 MG CAPSULE PO PRN (10:52)
--- NOTE | 2022-03-27 11:02 | P.DS ---
Admission Date: 03/23/22 Discharge Date: 03/27/22 Disposition: [facility] HOME/HOME HEALTH CARE Discharge Condition: FAIR Reason for Admission: Unable to eat, weakness, A/C renal failure, Electrolyte abnormalities - Problems (1) Diarrhea Current Visit: Yes Status: Acute (2) Dysphagia Current Visit: Yes Status: Acute (3) Acute on chronic renal failure Onset Date: 05/22/18 Current Visit: No Status: Acute Qualifiers: Acute renal failure type: unspecified Chronic kidney disease stage: stage 4 (severe) Qualified Code(s): N17.9 - Acute kidney failure, unspecified; N18.4 - Chronic kidney disease, stage 4 (severe) (4) BPH (benign prostatic hyperplasia) Onset Date: 01/24/16 Current Visit: No Status: Chronic Qualifiers: Lower urinary tract symptom presence: presence of symptoms unspecified Qualified Code(s): N40.0 - Benign prostatic hyperplasia without lower urinary tract symptoms (5) Diabetes mellitus Onset Date: 01/24/16 Current Visit: No Status: Chronic Qualifiers: Diabetes mellitus type: type 2 Diabetes mellitus fpc insulin use: with ferry terminal agent use Diabetes mellitus complication status: without complication Qualified Code(s): E11.9 - Type 2 diabetes mellitus without complications Brief History of Present Illness: Patient is 86 years of age history of chronic liver failure presented to the emergency room by EMS with a complain of generalized weakness ddifficulty with swallowing. He was also complaining of dysphagia. He is able to drink appropriately. He stated his symptoms has been going on for quite some time and never been evaluated. His creatinine was elevated to 3.6 which is above baseline. Patient was admitted for further management. Hospital Course: Patient admitted to the medical floor. He was seen by speech therapy who recommended mechanical soft diet. Speech also recommended barium swallow study. Barium swallow barium swallow reported normal primary peristalsis, no esophageal stricture or web or dilatation. Patient tolerated soft diet. He was seen in consultation by nephrology. His renal function improved with IV hydration. Patient had bout of diarrhea. C. difficile was negative. Noted he is on colesevelam and and has chronic diarrhea. Patient is clinically stable for discharge. Vital Signs/Physical Exam: Temp Pulse Resp BP Pulse Ox 97.9 F 70 18 138/64 100 03/27/22 08:00 03/27/22 08:20 03/27/22 08:00 03/27/22 08:20 03/27/22 08:00 General: Alert, In no apparent distress HEENT: Mucous membr. moist/pink Neck: Supple, JVD not distended Respiratory: Clear to auscultation bilaterally, Normal air movement Cardiovascular: No edema, Regular rate/rhythm, Normal S1 S2 Gastrointestinal: Normal bowel sounds, Soft and benign, Non-distended, No tenderness Musculoskeletal: No swelling Neurological: Normal strength at 5/5 x4 extr Laboratory Data at Discharge: WBC 7.70 K/uL (4.3-10.9) 03/27/22 03:06 Hgb 10.8 g/dL (13.6-17.9) L 03/27/22 03:06 Hct 32.0 % (39.6-49.0) L 03/27/22 03:06 Plt Count 152 K/uL (152-406) 03/27/22 03:06 Sodium 143 mmol/L (136-145) 03/27/22 03:06 Potassium 3.9 mmol/L (3.5-5.1) 03/27/22 03:06 BUN 44 mg/dL (7-18) H 03/27/22 03:06 Creatinine 1.93 mg/dL (0.55-1.3) H 03/27/22 03:06 Glucose 146 mg/dL (74-106) H 03/27/22 03:06 Phosphorus 2.4 mg/dL (2.5-4.9) L 03/27/22 03:06 Magnesium 2.3 mg/dL (1.8-2.4) 03/23/22 13:00 Total Bilirubin 0.5 mg/dL (0.2-1.0) 03/26/22 04:17 AST 14 U/L (15-37) L 03/26/22 04:17 ALT 16 U/L (12-78) 03/26/22 04:17 Alkaline Phosphatase 78 U/L (45-117) 03/26/22 04:17 Home Medications: Albuterol Inhaler [Ventolin Inhaler*] 1 puff IH Q6H 03/23/22 Allopurinol 300 mg PO DAILY 03/23/22 Amiodarone HCl [Pacerone] 200 mg PO DAILY 03/23/22 Apixaban [Eliquis *] 2.5 mg PO BID 03/23/22 Buspirone HCl 5 mg PO TID 03/23/22 Cetirizine HCl [Zyrtec*] 5 mg PO DAILY 03/23/22 Clopidogrel Bisulfate [Plavix] 75 mg PO DAILY 03/23/22 Clotrimazole/Betamethasone Dip [Clotrimazole-Betamethasone Crm] 45 gm TP BID 03/23/22 Colesevelam [Welchol*] 625 mg PO BID 03/23/22 Donepezil HCl 10 mg PO BID 03/23/22 Gabapentin 300 mg PO BID 03/23/22 Insulin Aspart (Niacinamide) [Fiasp 100 Unit/ml Vial] 100 unit SQ TID 03/23/22 Insulin Degludec [Tresiba Flextouch U-100] 40 unit SQ DAILY 03/23/22 Levothyroxine Sodium [Levothyroxine] 175 mcg PO [id number] 03/23/22 Ondansetron HCl 4 mg PO Q8H PRN 03/23/22 Pantoprazole [Protonix Tab*] 40 mg PO BID 03/23/22 Paroxetine HCl [Paxil] 40 mg PO DAILY 03/23/22 Ramelteon 8 mg PO DAILY 03/23/22 Tamsulosin [Flomax*] 1 cap PO DAILY 03/23/22 Torsemide [Demadex*] 20 mg PO DAILY 03/23/22 carvediloL [Carvedilol] 6.25 mg PO BID 03/23/22 icosapent ethyL [Vascepa 1 gm Cap] 2 cap PO BID 03/23/22 methocarbamoL [Methocarbamol] 500 mg PO BEDTIME 03/23/22 Loperamide [Imodium*] 2 mg PO Q6H PRN #30 cap 03/27/22 New Medications: Loperamide [Imodium*] 2 mg PO Q6H PRN #30 cap PRN Reason: Diarrhea Diet: ADA Activity: Fall precautions Followup: RICHARD SUÁREZ [Primary Care Provider] - 1 Week Time spent managing pt's care (in minutes): 38
--- NOTE | 2022-03-27 11:40 | P.PN ---
Nephrology (S) Pt still reporting low appetite and not doing to well with solids. Denies dyspnea, has not been OOB much. Vitals, medications, blood work and imaging reviewed in the chart. General: Oriented, Cooperative, No distress HEENT: Atraumatic Neck: Supple Respiratory: Mostly clear to auscultation bilaterally Cardiovascular: No edema, Regular rate/rhythm Gastrointestinal: Soft and benign, Non-distended Musculoskeletal: No clubbing, No contractures noted Integumentary: No rashes, No cyanosis Neurological: Normal speech, awake, responds appropriately, no tremors Conclusions/Impression: Stage II KORI in the setting of hypovolemia and hypotension, improved with IVF CKD III with proteinuria -Cr levels trending down nicely. 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 Avoid Metolazone. Naseem Diaz MD, [facility]
[2022-03-27 12:00] VITALS: BP 114/57; TEMP 98.6
== END 2022-03-27 14:24 | disposition home health service (06) | DRG 683 ==
LOC: ER 11:24 → ERHOLD 14:52 → 4TH 18:00
PROVIDERS: ADMIT Internal Medicine Sleep Medicine; ATTEND Internal Medicine
DX: N17.9 Acute kidney failure, unspecified (principal); I50.32 Chronic diastolic (congestive) heart failure; I13.0 Hypertensive heart and chronic kidney disease with heart failure and stage 1 through stage 4 chronic kidney disease, or unspecified chronic kidney disease; E87.1 Hypo-osmolality and hyponatremia; E87.3 Alkalosis; N18.4 Chronic kidney disease, stage 4 (severe); E11.22 Type 2 diabetes mellitus with diabetic chronic kidney disease; E11.42 Type 2 diabetes mellitus with diabetic polyneuropathy; D63.1 Anemia in chronic kidney disease; E87.6 Hypokalemia; I25.10 Atherosclerotic heart disease of native coronary artery without angina pectoris; K21.9 Gastro-esophageal reflux disease without esophagitis; I95.9 Hypotension, unspecified; E86.1 Hypovolemia; D63.8 Anemia in other chronic diseases classified elsewhere; I27.20 Pulmonary hypertension, unspecified; M89.8X9 Other specified disorders of bone, unspecified site; N40.0 Benign prostatic hyperplasia without lower urinary tract symptoms; E78.5 Hyperlipidemia, unspecified; K52.9 Noninfective gastroenteritis and colitis, unspecified; M10.9 Gout, unspecified; R13.10 Dysphagia, unspecified; Z79.4 Long term (current) use of insulin; Z95.0 Presence of cardiac pacemaker; Z95.2 Presence of prosthetic heart valve; Z95.1 Presence of aortocoronary bypass graft; Z79.02 Long term (current) use of antithrombotics/antiplatelets; Z90.49 Acquired absence of other specified parts of digestive tract; Z79.01 Long term (current) use of anticoagulants; Z79.890 Hormone replacement therapy; Z79.899 Other long term (current) drug therapy; Z20.822 Contact with and (suspected) exposure to COVID-19
CPT/HCPCS: 36415; 71045; 74220; 80048; 80053; 81003; 81015; 82947; 83735; 84100; 84484; 85025; 87324; 87811; 94760; 96361; 96365; 96366; 99285; J1815; J3480; J7030; J7040; J7042

== ENCOUNTER 2022-08-01 12:04 | Emergency (ER) | payer OTHER, MEDICARE ==
--- OUTSIDE RECORDS SUMMARY | 2022-08-01 12:18 | XMS REPORT | Continuity of Care Document ---
:1935 Author Organization [facility] t Address [address] [place] [address] Care Team Providers Name Role Phone MARCIA LUZ Primary Care Physician Unavailable [id number] Attending Clinician Unavailable VIRAJ PANTOJA Attending Clinician Unavailable VIRAJ PANTOJA Attending Clinician Unavailable LORRI DONOVAN Attending Clinician Unavailable Doctor Unassigned, Dixie Attending Clinician Unavailable Franki FELIX, Coby Wong Attending Clinician Marcia Luz MD Attending Clinician Maggie Monte MA Attending Clinician Unavailable Lorri Donovan MD Attending Clinician Shalonda Hernandez Attending Clinician Unavailable Ciara Landon RN Attending Clinician Unavailable Paloma Perez NP Attending Clinician Salena Lopez RN Attending Clinician Unavailable Rachana Mares MA Attending Clinician Unavailable Dre Salcido RN Attending Clinician Unavailable Marcia Lang MA Attending Clinician Unavailable Bhimaraj MD, Rashid Attending Clinician Jordy BARKER, Stephanie Kitchen Attending Clinician Unavailable Noel Clement Attending Clinician Unavailable Silvino FELIX, Jami Bentley Attending Clinician Bereket FELIX, Sherif Attending Clinician Renu NUCLEAR CHEMISTRY TECHNICIAN, Madeline Attending Clinician [phone] Aliyah Carty RN, Augusta Attending Clinician Unavailable Nichol FELIX, Vipul Beckham Attending Clinician Laura Tolliver Attending Clinician Wilber FELIX, Fernanda Love Attending Clinician [phone] Jay FELIX, Janes Moore Attending Clinician [phone] Wilber FELIX, Fernanda Love Attending Clinician [phone] Carla Attending Clinician Unavailable Kye Hagan Attending Clinician Unavailable Stephen FELIX, Jerry Tate Attending Clinician Joe FELIX, Steve Gonzales Attending Clinician Rogerio FELIX, Yoni Stanley Attending Clinician Ziyad FELIX, Constance Prado Attending Clinician [phone] Jessika BARKER, Penny Attending Clinician Unavailable Raven BARKER, Nieves Attending Clinician Unavailable Vanessa Richardson Attending Clinician Unavailable Paz Dewey MA Attending Clinician Unavailable Mercy Soto Attending Clinician [phone] Rachel Guerrero RN Attending Clinician Unavailable Rosa Eric MA Attending Clinician Unavailable Paola Phelps MA Attending Clinician Unavailable Rachel Tariq RN Attending Clinician Unavailable Sean Rhodes MD Attending Clinician Yani Angel Attending Clinician Unavailable Jacqueline MENDEZ, Cat Attending Clinician EVELYN JAQUEZ Attending Clinician Unavailable Evelyn Aguirre Attending Clinician Latoya FELIX, Rajan Patino Attending Clinician Adriane Jackman MD Attending Clinician Garrett Garcia MD Attending Clinician [phone] GARRETT GARCIA Attending Clinician Unavailable Alo Vazquez MD Attending Clinician Crissy Singleton DO Attending Clinician [phone] Hannah Pitt MA Attending Clinician Unavailable Garrett Todd MD Attending Clinician GARRETT TODD Attending Clinician Unavailable Judy Chin MD Attending Clinician Albert Johnston MD Attending Clinician Shivam Murray MD Attending Clinician MD ALBERT JOHNSTON Attending Clinician Unavailable Maira Chen MD Attending Clinician Bibi Hector MA Attending Clinician Unavailable Billie Husain MA Attending Clinician Unavailable Barbara Ball RN Attending Clinician Unavailable Kim Cramer RN Attending Clinician Unavailable JAVIER AGUIRRE Attending Clinician Unavailable PAULY KRUSE Attending Clinician Unavailable MD PAULY KRUSE Attending Clinician Unavailable MARIAH MCNAIR Attending Clinician Unavailable MD GARRETT PATRICK Attending Clinician Unavailable RADHA DEL CID Attending Clinician Unavailable ANETTE HUSSEIN Attending Clinician Unavailable VICTOR M IRWIN Attending Clinician Unavailable MD COBY DOAN Attending Clinician Unavailable Sangita Attending Clinician Unavailable NICCI SAWANT Attending Clinician Unavailable MD NICCI SAWANT Attending Clinician UnavailGREY Fernandez Attending Clinician Unavailable [id number] Admitting Clinician Unavailable SHERIF CUBA Admitting Clinician Unavailable FERNANDA MERINO Admitting Clinician Unavailable MD LAURA TOLLIVER Admitting Clinician Unavailable Carla Admitting Clinician Unavailable STEVE LAURA Admitting Clinician Unavailable RAJAN KLEIN Admitting Clinician Unavailable OPAL COYNE Admitting Clinician Unavailable ALBERT JOHNSTON Admitting Clinician [...] MD AMAIRANI JONES Admitting Clinician Unavailable MERCY STOO Admitting Clinician Unavailable GREY WARREN Admitting Clinician Unavailable Payers Payer Name Policy Type Policy Number Effective Date Expiration Date S ankita MCR MCR [id number] MEDICARE PART A AND [id number] 2016 B 00:00:00 MEDICARE PART A \\T\\ [id number] 2001 B 00:00:00 [facility] [id number] 2017 MEDICARE SUPPLEMENT 00:00:00 [place]ICARE B-[place]: [id number] 2001 NOVYaKlass 00:00:00 [facility] [id number] 2018 OPTIONS (MEDICARE 00:00:00 SUPPLEMENT) Problems Condition Condition Condition Status Onset Resolution Last Treating Co mments Source Name Details Category Date Date Treatment Clinician Date KORI (acute KORI (acute Disease Active 2021-07 M ethodi kidney kidney 2-24 st injury) injury) 00:00: Hospita 00 l Cardiorena Cardiorena Disease Active 2021-07 M ethodi l syndrome l syndrome 2-24 st with renal with renal 00:00: Ho spita failure failure 00 l Hypokalemi Hypokalemi Disease Active 2021-07 M ethodi a a 1-30 st 00:00: Hospita 00 l KORI (acute KORI (acute Disease Active 2021-07 M ethodi kidney kidney 1-30 st injury) injury) 00:00: Hospita 00 l Normal Normal Disease Active 2021-07 [facility] anion gap anion gap 1-30 st metabolic metabolic 00:00: [facility] acidosis acidosis 00 l Acute on Acute on Disease Active [facility] chronic chronic 9-28 st congestive congestive 00:00: Ho spita heart heart 00 l failure, failure, unspecifie unspecifie d heart d heart failure failure type type Candidal Candidal Problem Active [place] [facility] balanitis Balanitis 8-08 [facility] o 00:00: Urology 00 Phimosis Phimosis Problem Active [place] [facility] 00:00: Urology 00 Acute Acute Disease Active [facility] Center Generalize Generalize Disease Active 2020-07 M ethodi d weakness d weakness 2-22 st 00:00: Hospita 00 l Cellulitis Cellulitis Disease Active [facility] of foot of foot 4-19 st 00:00: Hospita 00 l Male Male Problem Active [place] urinary Urinary 7-10 [facility] stress Stress 00:00: Urology incontinen Incontinen 00 ce ce Chronic Chronic Disease Active [facility] anticoagul anticoagul 3-19 st ation ation 00:00: Hospita 00 l Aortic Aortic Disease Active 2018-07 [facility] valve valve 2-07 st disorder disorder 00:00: Hospit a 00 l 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 Active [facility] hypogonadi hypogonadi 6-18 st sm sm 00:00: Hospita 00 l Urinary Urinary Problem Active [place] tract Tract 6-17 [facility] infectious Infectious 00:00: Ur ology disease Disease 00 Increased Increased Problem Active [facility] frequency Frequency 6-12 [facility] of of 00:00: Urology urination Urination 00 Reduced Reduced Problem Active [place] libido Libido 6-12 [facility] 00:00: Urology 00 Lower Lower Disease Active [facility] urinary urinary 6-12 st tract tract 00:00: Hospita symptoms symptoms 00 l due to due to benign benign prostatic prostatic hyperplasi hyperplasi a a UTI UTI Disease Active 2017-07 [facility] (urinary (urinary 2-17 st tract tract 00:00: Hospita infection) infection) 00 l CKD CKD Disease Active 2017-07 [facility] (chronic (chronic 2-17 st kidney kidney 00:00: Hospita disease) disease) 00 l stage 4, stage 4, GFR 15-29 GFR 15-29 ml/min ml/min CHF CHF Disease Active 2017-07 [facility] (congestiv (congestiv 2-17 st e heart e heart 00:00: Hospita failure) failure) 00 l Angina Angina Disease Active 2017-07 Overview: [facility] i pectoris pectoris 1-[address] 00:00: g of this Hospita 00 note l might be different from the original. 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 heart heart 05/2018 without without see note angina angina new pectoris pectoris Cardiolog ist is Dr Marycarmen Rhodes to add spironola ctone and bumex bid S/P TAVR S/P TAVR Disease Active 2017-07 Overview: Me [facility] (transcath (transcath [address] eter eter 00:00: g of [...] Cardiac Disease Active 2017-07 [facility] [address] ization ization 00:00: Hospita therapy therapy 00 l defibrilla defibrilla tor tor (SAILOR-D) in (SAILOR-D) in place place PAD PAD Disease Active [...] l Diabetic Diabetic Disease Active Overview: Me [place] eye exam eye exam 09-[address] 00:00: g of this Hospita 00 note l might be different from the original. 09/2016 Dr Meg Moses with macular degen, cataract and nonprolif DM retinopat hy09/2017 with left eye diabetic retinopat hy [id number]/ 2019 Dr Morgan and has stable DM retinopat hy Acquired Acquired Disease Active 2015-07 Overview: [place] hypothyroi hypothyroi 2-[address] dism dism [...] Perez symptoms symptoms Hernandez in the past Benign Benign Disease Active Overview: Method i non-nodula non-nodula 8-[address] r r 00:00: g of this Hospita prostatic prostatic 00 note l hyperplasi hyperplasi might be a with a with different lower lower from the urinary urinary original. tract tract Dr Perez symptoms symptoms Hernandez in the past Diabetic Diabetic Disease Active Overview: Me [facility] polyneurop polyneurop 8-[address] athy athy 00:00: g of this Hospita associated associated 00 note l with type with type might be 2 diabetes 2 diabetes different mellitus mellitus from the original. Dr Chen Neurologi [facility] [employer] [phone] [id number] Javier Aguirre is new Endocrino logist Shortness Shortness Disease Active [facility] of breath of breath 7 st 00:00: Hospita 00 l Impotence Impotence Problem Active [facility] of organic of Organic 12-16 Me tro origin Origin 00:00: Urology 00 Prostate Prostate Disease Active Overview: Me [facility] mass mass 6-[address] 00:00: g of this Hospita 00 note l might be different from the original. 12/2019 Dr Soto was seen has BPH ED ED Disease Active [facility] (erectile (erectile 12-16 st dysfunctio dysfunctio 00:00: Ho spita n) of n) of 00 l organic organic origin origin [place] Problem Active [place] hematuria Hematuria 4-30 Metr o 00:00: Urology 00 Retention Retention Problem Active [place] [facility] of urine of Urine 4-30 [facility] 00:00: Urology 00 Gout Gout Disease Active 2003-07 [facility] 2 [...] under the care of Dr Matt Aguirre [phone] [place] [address] [address] Yuli Hernandez ast Assessmen t & Plan: Formattin g of this note might be different from the original. Anemia Anemia Disease Active [facility] Hospita l No known No known Disease Unive rs active active ity of problems problems [facility] Allergies, Adverse Reactions, Alerts Allergy Allergy Status Severity Reaction(s) Onset Inactive Treating Comm ents Source Name Type Date Date Clinician NO KNOWN Allergy Active [facility] NO KNOWN Drug Active Univers ALLERGIE Class ity of [facility] Family History Family Member Diagnosis Comments Start Date Stop Date Source Natural father Coronary artery [facility] Natural father Coronary artery [facility] disease Natural father Early [employer] [facility] Natural mother [facility] Social History Social Habit Start Date Stop Date Quantity Comments [facility] History [facility] [employer] Alcohol Std Drinks Hospit al Exposure to 2022-07-21 2022-07-31 Not sure University of SARS-CoV-2 (event) 00:00:00 14:44:[address] [facility] Alcohol intake 2022-07-30 2022-07-30 Current [employer] 00:00:00 00:00:00 non-drinker of Hospital alcohol (finding) History SDMO 2022-01-14 2022-01-14 5 [employer] Financial 00:00:00 00:00:00 Hospital History SDMO Food 2022-01-14 2022-01-[address] Worry 00:00:00 00:00:00 Hospital History SDMO Food 2022-01-14 2022-01-[address] Scarcity 00:00:00 00:00:00 Hospital History SDOH 2022-01-14 2022-01-14 2 [employer] Transport Med 00:00:00 00:00:00 Hospital History SDOH 2022-01-14 2022-01-14 2 [employer] Transport Non-Med 00:00:00 00:00:00 Hospita l History SDOH 2022-01-14 2022-01-14 2 [employer] Housing Unable to 00:00:00 00:00:00 Hospita l Pay History SDOH 2022-01-14 2022-01-14 2 [facility] Housing Places 00:00:00 00:00:00 Hospital Lived History SDOH 2022-01-14 2022-01-14 2 [employer] [facility] Homeless 00:00:00 00:00:00 Hospital Last Year Tobacco use and 2021-09-23 2021-09-[address] [facility] kes exposure 00:00:00 00:00:00 Medical Center History SDMO 2020-09-13 2020-09-13 1 [employer] Alcohol Frequency 00:00:00 00:00:00 Hospita l History SDOH 2020-09-13 2020-09-13 1 [employer] Alcohol Binge 00:00:00 00:00:00 Hospital History SDMO Social 2020-09-13 2020-09-13 5 [facility] Phone 00:00:00 00:00:00 Hospita l History SDMO Social 2020-09-13 2020-09-13 5 [facility] Get 00:00:00 00:00:00 Hospital Together History SDMO Social 2020-09-13 2020-09-13 1 [facility] Hindu 00:00:00 00:00:00 Hospit al History SDMO Social 2020-09-13 2020-09-13 2 [facility] 00:00:00 00:00:00 Hospital Membership History [facility] Social 2020-09-13 2020-09-13 1 [facility] 00:00:00 00:00:00 Hospital Meetings History SDMO Social 2020-09-13 2020-09-13 3 [facility] Living 00:00:00 00:00:00 Hospit al History SDMO 2020-09-13 2020-09-13 0 [employer] Physical Activity 00:00:00 00:00:00 Hospita l DPW History SDMO 2020-09-13 2020-09-13 0 [employer] Physical Activity 00:00:00 00:00:00 Hospita l MPS History SDMO Stress 2020-09-13 2020-09-13 2 [facility] 00:00:00 [...] 00:00:00 Hospital Sex Ass[birth year] At [birth year] [employer] [facility] 00:00:00 00:00:00 Hospital Smoking Status Start Date Stop Date Source Never smoked tobacco [facility] Medications Ordered Filled Start Stop Current Ordering Indication Dosage Frequency Signature Comments Components Source Medication Medication Date Date Medication? Clinician (SIG) Name Name sucralfate Yes 1g [id number] Take 1 [facility] (Carafate) 25 [id number] tablet (1 st 1 gram 00:00: 3D g total) Hospita tablet 00 by mouth 3 l (three) times a day before meals. ramelteon 2022- No 8mg QD Take 1 [facility] (ROZEREM) 8 -17 -17 tablet (8 st mg tablet 14:50: 00:00 mg total) Ho spita 01 :00 by mouth l nightly. donepeziL Yes 10mg QD Take 1 Method i (ARICEPT) -17 tablet (10 st 10 MG 14:22: mg total) Hospita tablet 14 by mouth l nightly. icosapent Yes 1g Q.5D Take 1 Method i ethyL 1-17 capsule (1 st (VASCEPA) 1 14:22: g total) Ho spita gram 14 by mouth 2 l capsule (two) times a day with meals. blood-gluco Yes * dexcom Me [facility] se sensor -17 g6* st (Dexcom G6 14:22: Hospita Sensor) 14 l device liothyronin Yes 5ug QD Take 1 Meth zafar e (CYTOMEL) -17 tablet (5 st 5 MCG 14:22: mcg total) Hospit a tablet 14 by mouth l daily. insulin Yes Inject [facility] degludec [address] (TRESIBA) 14:22: skin. 40 [facility] 100 unit/mL 14 units at l (3 mL) bedtime subcutaneou s pen insulin 2023-0 Yes 24U QD Inject [facility] ASPART 1-[address] (NovoLOG) 14:22: (24 Units Hos ezekiel 100 unit/mL 14 total) l injection under the skin daily before breakfast. insulin Yes 20U QD Inject 0.2 Meth zafar ASPART 1-17 mL (20 st (NovoLOG) 14:22: Units Hospita 100 unit/mL 14 total) l injection under the skin daily with lunch. insulin Yes Inject [facility] aspart, 1-[address] niacinamide 14:22: skin. Per H ospita , (Fiasp 14 pt l FlexTouch caregiver, U-100 pt takes Insulin) 40 units 100 unit/mL TID (3 mL) insulin pen ramelteon 2023- Yes 8mg QD Take 1 [facility] (Rozerem) 8 - 01-07 tablet (8 st mg tablet 00:00: 05:59 mg total) Ho spita 00 :00 by mouth l nightly. metoprolol 2021-07- Yes 25mg QD Take 1 Meth zafar succinate 2-27 12-28 tablet (25 st XL 00:00: 05:59 mg total) Hospita (TOPROL-XL) 00 :00 by mouth l 25 mg 24 hr daily. tablet allopurinoL 2021-07- No 50mg QD Take 50 mg [facility] (ZYLOPRIM) 2-26 12-[address] 100 MG 19:43: 00:00 daily. Hospita tablet 14 :00 l allopurinoL 2021-07 Yes TAKE ONE Me thodi (ZYLOPRIM) 2-26 (1) st 100 MG 00:00: TABLET(S) Hospit a tablet 00 BY MOUTH l ONCE A DAY. insulin 2021-07- No 20U QD Inject 20 Meth zafar ASPART 2-21 12-[address] (NovoLOG) 19:35: 00:00 under the Ho spita 100 unit/mL 04 :00 skin daily l injection with dinner. insulin 2021-07- No Inject [facility] aspart, 2-20 12-[address] niacinamide 09:16: 00:00 skin. 24 H ospita , (Fiasp 02 :00 units with l FlexTouch breakfast2 U-100 0 units Insulin) with 100 unit/mL lunch20 (3 mL) units with insulin pen dinner furosemide 2021-07- No 40mg Q.5D Take 1 Meth zafar (LASIX) 40 2-20 -20 tablet (40 st mg tablet 00:00: 05:59 mg total) Ho spita 00 :00 by mouth 2 l (two) times a day for 30 days. guaiFENesin 2021-07- No 200mg Q4H Take 10 mL [facility] (ROBITUSSIN 2-20 -20 ([address] ) 100 mg/5 00:00: 05:59 total) by H ospita mL syrup 00 :00 mouth l every 4 (four) hours as needed for congestion for up to 30 days. potassium 2021-07 Yes 20meq QD Take 2 [facility] chloride 2-[address] (MICRO-K) 00:00: (20 mEq Hospi ta 10 MEQ CR 00 total) by l capsule mouth daily. torsemide 2021-07 No 40mg Q.5D Take 2 [facility] (DEMADEX) 2-01 15-[address] 20 MG 00:00: 00:00 (40 mg Hospita tablet 00 :00 total) by l mouth 2 (two) times a day for 30 days. potassium 2021-07 No 20meq QD Take 2 Meth zafar chloride 2- 12-[address] (MICRO-K) 00:00: 00:00 (20 mEq [facility] 10 MEQ CR 00 :00 total) by l capsule mouth daily. torsemide 2021-07- No 40mg Q.5D Take 2 [facility] di (DEMADEX) 2- 12-[address] 20 MG 00:00: 00:00 (40 mg Hospita tablet 00 :00 total) by l mouth 2 (two) times a day for 30 days. levothyroxi 2021-07- Yes 25ug QD Take 1 Met [facility] ne 1-25 11-26 tablet (25 st (Synthroid) 00:00: 05:59 mcg total) Hospita 25 mcg 00 :00 by mouth l tablet daily. potassium 2021-07- No 10meq QD Take 1 Meth zafar chloride -25 12-07 tablet (10 st (K-DUR) 10 00:00: 00:00 mEq total) Hospita MEQ CR 00 :00 by mouth l tablet daily for 14 days. nystatin 2021-07- Yes [id number] Q.5D Apply Me [facility] (MYCOSTATIN 07-[address] ) 100,000 00:00: 05:59 2 (two) [facility] unit/gram 00 :00 times a l ointment day. Eliquis 2.5 2021-07 Yes TAKE ONE Me [facility] mg tablet 07-24 () st 00:00: TABLET(S) Hospita 00 BY MOUTH l TWICE A DAY. metOLazone 2021-07 No TAKE ONE [facility] (ZAROXOLYN) 07-22 () TABLET s t 2.5 MG 00:00: 00:00 BY MOUTH Hospit a tablet 00 :00 EVERY l FRIDAY, FRIDAY, AND FRIDAY. nystatin 2021-07- No [id number] Q.5D Apply Me [facility] (MYCOSTATIN 07-[address] ) 100,000 00:00: 00:00 2 (two) [facility] unit/gram 00 :00 times a l ointment day. amIODarone 2021-07 Yes TAKE ONE Met hodi (PACERONE) 07-13 () st 200 MG 00:00: TABLET(S) Hospit a tablet 00 BY MOUTH l ONCE A DAY. cetirizine 2021-07- No 5mg QD Take 5 mg M ethodi (ZyrTEC) 5 07-[address] MG tablet 08:13: 00:00 daily. Hospi ta 41 :00 l cetirizine 2021-07 Yes TAKE ONE Met hodi (ZyrTEC) 5 -05 (1) st MG tablet 00:00: TABLET(S) Hos ezekiel 00 BY MOUTH l ONCE A DAY. tamsulosin 2021-07 Yes [id number] TAKE ONE [facility] (FLOMAX) -05 (1) st 0.4 mg 00:00: CAPSULE(S) Hospi ta capsule 00 BY MOUTH l ONCE A DAY. clotrimazol 2021-07- No APPLY TO M ethodi e-betametha 07-[address] sone 00:00: 00:00 AREA TWICE Hospit a (LOTRISONE) 00 :00 A DAY. l 1-0.05 % cream clotrimazol 2021-07 1{appli Q.5D Apply 1 Methodi e-betametha 004-16 cation} applicatio st sone 05:36: 00:00 n Hospita (LOTRISONE) 38 :00 topically l 1-0.05 % 2 (two) cream times a day. clotrimazol 2021-07 APPLY TO M ethodi e-betametha 05-[address] sone 00:00: 00:00 AREA TWICE Hospit a (LOTRISONE) 00 :00 A DAY. l 1-0.05 % cream insulin 2021-07 24U QD Inject 24 Meth zafar aspart, 0-06 10-[address] niacinamide 18:13: 00:00 under the Hospita , (Fiasp 09 :00 skin daily l FlexTouch before U-100 breakfast. Insulin) 100 unit/mL (3 mL) insulin pen torsemide 2021-07 40mg Q.5D Take 2 Metho di (DEMADEX) 0-06 10-[address] 20 MG 18:13: 00:00 (40 mg Hospita tablet 09 :00 total) by l mouth 2 (two) times a day. methocarbam 2021-07 500mg QD Take 1 Me [facility] oL 0-06 10-[address] (ROBAXIN) 18:13: 00:00 (500 mg [facility] 500 MG 09 :00 total) by l tablet mouth nightly as needed for muscle spasms. empaglifloz 2021-07 10mg QD Take 1 Met hodi in 0-06 10-05 tablet (10 st (Jardiance) 18:13: 00:00 mg total) Hospita 10 mg 09 :00 by mouth l tablet daily. tablet furosemide 2021-07 60mg QD Take 3 Meth zafar (LASIX) 20 0-06 10-[address] mg tablet 18:13: 00:00 (60 mg Hospi ta 09 :00 total) by l mouth daily. metoprolol 2022-1 2022- No 25mg QD Take 1 Meth zafar succinate 0-06 12-27 tablet (25 st XL 00:00: 00:00 mg total) Hospita (TOPROL-XL) 00 :00 by mouth l 25 mg 24 hr daily. tablet allopurinoL 2021-07 No 50mg QD Take 0.5 M ethodi (ZYLOPRIM) 0-06 11-[address] 100 MG 00:00: 04:59 (50 mg Hospita tablet 00 :00 total) by l mouth daily for 30 days. insulin 2021-07 No 40U QD Inject 40 Meth zafar degludec 0-05 10-[address] (Tresiba 18:14: 00:00 under the Hos ezekiel FlexTouch 06 :00 skin l U-100) 100 daily. unit/mL (3 mL) subcutaneou s pen pravastatin 2021-07 No 10mg QD Take 1 Met hodi (PRAVACHOL) 0-05 10-06 tablet (10 s t 10 mg 00:00: 04:59 mg total) Hospit a tablet 00 :00 by mouth l nightly. Fiasp 2021-07 No 20U Q.5D Inject 0.2 Metho di FlexTouch 0-05 11-05 mL (20 st U-100 00:00: 04:59 Units Hospita Insulin 100 00 :00 total) l unit/mL (3 under the mL) insulin skin 2 pen (two) times a day for 30 days. before lunch and dinner sennosides- 2021-07 No 1{tbl} Q.5D Take 1 M ethodi docusate 0-05 11-[address] sodium 00:00: 04:59 mouth 2 Hospita (SENOKOT-S) 00 :00 (two) l 8.6-50 mg times a per tablet day as needed for constipati on for up to 30 days. polyethylen 2021-07 No 17g Q24H Take 17 g Method[facility] e glycol 0-05 11-[address] (MIRALAX) 00:00: 04:59 daily as Hos ezekiel 17 gram 00 :00 needed for l packet constipati on for up to 30 days. levothyroxi 2022- No [id number] 200ug QD Take 1 Methodi ne 9-17 09-[address] (Synthroid) 00:00: 04:59 (200 mcg H ospita 200 mcg 00 :00 total) by l tablet mouth daily. potassium 2021- No [id number] 20meq QD Take 1 [facility] chloride 03-23 tablet (20 st (K-DUR) 20 00:00: 04:59 mEq total) Hospita MEQ CR 00 :00 by mouth l tablet daily for 3 days. insulin Yes 40U QD Inject 40 Metho di degludec -[address] (Tresiba 11:46: under the [facility] FlexTouch 04 skin l U-100) 100 daily. unit/mL (3 mL) subcutaneou s pen cetirizine Yes 5mg QD Take 5 mg Me [facility] (ZyrTEC) 5 03-[address] MG tablet 11:46: daily. Hospit a 04 l PARoxetine 2022- No [id number] 20mg QD Take 1 [facility] (PaxiL) 20 03-21 tablet (20 st MG tablet 00:00: 04:59 mg total) Ho spita 00 :00 by mouth l every morning. PARoxetine 2022- No [id number] 20mg QD Take 1 [facility] (PaxiL) 20 03-21 tablet (20 st MG tablet 00:00: 04:59 mg total) Ho spita 00 :00 by mouth l every morning. torsemide 2021- No [id number] 20mg Q.5D Take 1 [facility] (DEMADEX) 03-21 tablet (20 st 20 MG 00:00: 00:00 mg total) Hospit a tablet 00 :00 by mouth 2 l (two) times a day. torsemide 2021- No [id number] 20mg Q.5D Take 1 [facility] (DEMADEX) 03-21 tablet (20 st 20 MG 00:00: 00:00 mg total) Hospit a tablet 00 :00 by mouth 2 l (two) times a day. clotrimazol Yes [id number] APPLY TO [facility]-betametha 03-[address] sone 00:00: AREA TWICE Hospita (LOTRISONE) 00 A DAY. l 1-0.05 % cream levothyroxi 2022- No 175ug QD Take 1 Me zoila soliman 03-10-[address] (Synthroid) 00:00: 04:59 (175 mcg [facility] 175 mcg 00 :00 total) by l tablet mouth daily. clotrimazol 2021- No [id number] APPLY TO [facility]-betametha 03-[address] sone 00:00: 00:00 AREA TWICE Hospit a (LOTRISONE) 00 :00 A DAY. l 1-0.05 % cream levothyroxi 2021- No 175ug QD Take 1 Me zoila soliman 03-10-[address] (Synthroid) 00:00: 00:00 (175 mcg [facility] 175 mcg 00 :00 total) by l tablet mouth daily. pantoprazol 0 Yes 40mg Q.5D Take 1 Meth zafar e 8-26 tablet (40 st (PROTONIX) 00:00: mg total) [facility] 40 MG EC 00 by mouth 2 l tablet (two) times a day. pantoprazol 2021-0 Yes 40mg Q.5D Take 1 Meth zafar e 8-26 tablet (40 st (PROTONIX) 00:00: mg total) [facility] 40 MG EC 00 by mouth 2 l tablet (two) times a day. colesevelam 2022- No [id number] 1250mg Q.5D Take 2 [facility] (WelChoL) 02-21 08-[address] 625 mg 00:00: 04:59 (1,250 mg Hospi ta tablet 00 :00 total) by l mouth 2 (two) times a day with meals. colesevelam 2021- No [id number] 1250mg Q.5D Take 2 [facility] (WelChoL) 02-21 10-[address] 625 mg 00:00: 00:00 (1,250 mg Hospi ta tablet 00 :00 total) by l mouth 2 (two) times a day with meals. torsemide 2021- No [id number] 60mg QD Take 3 [facility] (DEMADEX) 02-21 09-[address] 20 MG 00:00: 00:00 (60 mg Hospita tablet 00 :00 total) by l mouth daily. torsemide 2021- No [id number] 60mg QD Take 3 [facility] (DEMADEX) 02-[address] 20 MG 00:00: 00:00 (60 mg [facility]osp[facility] tablet 00 :00 total) by l mouth daily. clotrimazol 2021- No [id number] APPLY TO [facility]-betametha 02-[address] [facility] 00:00: 00:00 AREA TWICE Hospit a (LOTRISONE) 00 :00 A DAY. l 1-0.05 % cream clotrimazol 2021- No [id number] APPLY TO [facility]betametha 02-[address] [facility] 00:00: 00:00 AREA TWICE Hospit a (LOTRISONE) 00 :00 A DAY. l 1-0.05 % cream furosemide 2021- No [id number] 80mg Q.5D Take 1 [facility] (Lasix) 80 02-21 9100 tablet (80 st mg tablet 00:00: 00:00 mg total) [facility] 00 :00 by mouth 2 l (two) times a day. furosemide 2021- No [id number] 80mg Q.5D Take 1 [facility] (Lasix) 80 02-21 9100 tablet (80 st mg tablet 00:00: 00:00 mg total) [facility] 00 :00 by mouth 2 l (two) times a day. clotrimazol 2021- No [id number] Q.5D APPLY [facility]-betametha 02-[address] [facility] 00:00: 00:00 2 (TWO) [facility]ospita (LOTRISONE) 00 :00 TIMES A l 1-0.05 % DAY. cream furosemide 2021- No 40mg Q.5D Take 1 Meth z[facility] (Lasix) 40 02-06 tablet (40 st mg tablet 00:00: 00:00 mg total) [facility] 00 :00 by mouth 2 l (two) times a day. clotrimazol 2021- No [id number] Q.5D APPLY [facility]-betametha 02-[address] [facility] 00:00: 00:00 2 (TWO) [facility]ospita (LOTRISONE) 00 :00 TIMES A l 1-0.05 % DAY. cream furosemide 2021- No 40mg Q.5D Take 1 Meth z[facility] (Lasix) 40 02-06-18 tablet (40 st mg tablet 00:00: 00:00 mg total) [facility] 00 :00 by mouth 2 l (two) times a day. gabapentin Yes TAKE TWO [facility] (NEURONTIN) 01-29 (2) st 300 mg 00:00: CAPSULE(S) Hospi ta capsule 00 BY MOUTH l TWICE A DAY. gabapentin Yes TAKE TWO [facility] (NEURONTIN) 01-29 (2) st 300 mg 00:00: CAPSULE(S) Hospi ta capsule 00 BY MOUTH l TWICE A DAY. levothyroxi 2021- No 150ug QD Take 1 La zoila md 01-[address] (Synthroid) 00:00: 00:00 (150 mcg [facility] 150 mcg 00 :00 total) by l tablet mouth daily. levothyroxi 2021- No 150ug QD Take 1 Me cummings ne 01-29- tablet st (Synthroid) 00:00: 00:00 (150 mcg [facility] 150 mcg 00 :00 total) by l tablet mouth daily. furosemide 2021- No 40mg Q.5D Take 1 Meth z[facility] (Lasix) 40 01-29 tablet (40 st mg tablet 00:00: 00:00 mg total) [facility] 00 :00 by mouth 2 l (two) times a day. clotrimazol 2021- No [id number] Q.5D Apply [facility]-betametha 01-[address] [facility] 00:00: 00:00 2 (two) Hospita (LOTRISONE) 00 :00 times a l 1-0.05 % day. cream furosemide 2021- No 40mg Q.5D Take 1 Meth z[facility] (Lasix) 40 01-29- tablet (40 st mg tablet 00:00: 00:00 mg total) [facility] 00 :00 by mouth 2 l (two) times a day. clotrimazol 2021- No [id number] Q.5D Apply [facility]-betametha 01-[address] [...] 2021- No TAKE TWO [facility] (DEMADEX) 01-22- (2) st 20 MG 00:00: 00:00 TABLET(S) Hospit a tablet 00 :00 BY MOUTH l TWICE A DAY. torsemide 2021- No TAKE TWO [facility] (DEMADEX) 01-22- (2) st 20 MG 00:00: 00:00 TABLET(S) [...] (3 mL) subcutaneou s pen PARoxetine 2022- No 10mg QD Take 1 [facility] (PaxiL) 10 6-18 -19 tablet (10 st MG tablet 00:00: 04:59 mg total) [facility] 00 :00 by mouth l every morning. PARoxetine 2022- No 10mg QD Take 1 [facility] (PaxiL) 10 -18 -19 tablet (10 st MG tablet 00:00: 04:59 mg total) [facility] 00 :00 by mouth l every morning. PARoxetine 2021- No 10mg QD Take 1 [facility] (PaxiL) 10 6-18 09-15 tablet (10 st MG tablet 00:00: 00:00 mg total) [facility] 00 :00 by mouth l every morning. PARoxetine 2021-2021- No 10mg QD Take 1 [facility] (PaxiL) 10 6-18 09-15 tablet (10 st MG tablet 00:00: 00:00 mg total) [facility] 00 :00 by mouth l every morning. fexofenadin 2021-2021- No 180mg QD Take 180 [facility] (RAHAT) 6-08 06-[address] 180 MG 18:19: 00:00 mouth Hospita tablet 39 :00 daily. l fexofenadin 2021-0 2- No 180mg QD Take 180 [facility] (RAHAT) 6-08 06-[address] 180 MG 18:19: 00:00 mouth [facility]ospita tablet 39 :00 daily. l fexofenadin 2021-0 2021- No 180mg QD Take 180 [facility] (RAHAT) 6-08 06-[address] 180 MG 18:19: 00:00 mouth [facility]osp[facility] tablet 39 :00 daily. l fexofenadin 2021-0 2- No 180mg QD Take 180 [facility] (RAHAT) 12-12 06-[address] 180 MG 18:19: 00:00 mouth [facility]ospita tablet 39 :00 daily. l busPIRone 2022-0 Yes 5mg Q.[id number] Take 1 [facility] (BUSPAR) 5 6-07 [id number] tablet (5 st MG tablet 00:00: 3D mg total) Hos ezekiel 00 by mouth 3 l (three) times a day as needed (anxiety). busPIRone 2022-0 Yes 5mg Q.[id number] Take 1 [facility] (BUSPAR) 5 6-07 [id number] tablet (5 st MG tablet 00:00: 3D mg total) [facility] ezekiel 00 by mouth 3 l (three) times a day as needed (anxiety). busPIRone 2022-0 Yes 5mg Q.[id number] Take 1 [facility] (BUSPAR) 5 6-07 [id number] tablet (5 st MG tablet 00:00: 3D mg total) Hos ezekiel 00 by mouth 3 l (three) times a day as needed (anxiety). busPIRone 2022-0 2022- No 5mg Q.[id number] Take 1 [facility] (BUSPAR) 5 6- 10-05 [id number] tablet (5 st MG tablet 00:00: 00:00 3D mg total) [facility] 00 :00 by mouth 3 l (three) times a day as needed (anxiety). sertraline 2-0 2022- No 25mg QD Take 1 [facility] (Zoloft) 25 12-10- tablet (25 s t MG tablet 00:00: 00:00 mg total) [facility] 00 :00 by mouth l daily. sertraline 2022-0 2022- No 25mg QD Take 1 [facility] (Zoloft) 25 12-10-07 tablet (25 s t MG tablet 00:00: 00:00 mg total) [facility] 00 :00 by mouth l daily. sertraline 2022-0 2022- No 25mg QD Take 1 [facility] (Zoloft) 25 12-10-07 tablet (25 s t MG tablet 00:00: 00:00 mg total) [facility] 00 :00 by mouth l daily. sertraline 2021- No 25mg QD Take 1 [facility] z[facility] (Zoloft) 25 12-10 06 tablet (25 s t MG tablet 00:00: 00:00 mg total) [facility] 00 :00 by mouth l daily. triamcinolo 2021- No [id number] 80mg [facility] acetonide 19:45: 18:33 [place] (KENALOG) 00 :00 Medical injection Branch 80 mg triamcinolo 2021- No [id number] 80mg 80 mg, [facility] ne 11-27 Intra-claudette ity of acetonide 19:45: 18:33 [facility] (KENALOG) 00 :00 ONCE, 1 Medical injection dose, On Branch 80 mg 11/27/21 at 1445, Routine metOLazone 2022- No [...] No 2.5mg Take 1 [facility] (ZAROXOLYN) 11-21 05-[address] 2.5 MG 00:00: 04:59 (2.5 mg Hospita tablet 00 :00 total) by l mouth Every Friday, Friday, and Friday. metOLazone 2021- No 2.5mg Take 1 [facility] (ZAROXOLYN) - 10-[address] 2.5 MG 00:00: 00:00 (2.5 mg Hospita tablet 00 :00 total) by l mouth Every Friday, Friday, and Friday. cetirizine 0 Yes 5mg QD Take 5 mg [facility] (ZyrTEC) 5 5-[address] MG tablet 16:05: daily. Hospit a 59 l cetirizine 2021-0 Yes 5mg QD Take 5 mg [facility] (ZyrTEC) 5 5-[address] MG tablet 16:05: daily. Hospit a 59 l allopurinoL 2022- No 300mg QD Take 1 [facility] (Zyloprim) 5-05 05-[address] 300 MG 00:00: 04:59 (300 mg Hospita tablet 00 :00 total) by l mouth daily. levothyroxi 2022- No 175ug QD Take 1 [facility] ne 5-05 05-[address] (Synthroid) 00:00: 04:59 (175 mcg [facility] 175 mcg 00 :00 total) by l tablet mouth daily. allopurinoL 2022- No 300mg QD Take 1 [facility] (Zyloprim) 5-05 05-[address] 300 MG 00:00: 04:59 (300 mg Hospita tablet 00 :00 total) by l mouth daily. levothyroxi 2022- No 175ug QD Take 1 [facility] ne 5-05 05-[address] (Synthroid) 00:00: 04:59 (175 mcg [facility] 175 mcg 00 :00 total) by l tablet mouth daily. allopurinoL 2022- No 300mg QD Take 1 [facility] (Zyloprim) 5-05 05-[address] 300 MG 00:00: 04:59 (300 mg Hospita tablet 00 :00 total) by l mouth daily. allopurinoL 2021- No 300mg QD Take 1 [facility] (Zyloprim) 5-05 10-[address] 300 MG 00:00: 00:00 (300 mg Hospita tablet 00 :00 total) by l mouth daily. levothyroxi 2021- No 175ug QD Take 1 [facility] ne 5-05 07-[address] (Synthroid) 00:00: 00:00 (175 mcg [facility] 175 mcg 00 :00 total) by l tablet mouth daily. levothyroxi 2021- No 175ug QD Take 1 [facility] ne 5-05 07-[address] (Synthroid) 00:00: 00:00 (175 mcg [facility] 175 mcg 00 :00 total) by l tablet mouth daily. clopidogreL 0 Yes TAKE ONE [facility] (PLAVIX) 75 [...] Q.5D Take 2 [facility] (DEMADEX) 10-12 09-[address] 20 MG 00:00: 00:00 (40 [...] times a day for 30 days. torsemide 2022-0 Yes 40mg Q.5D Take [address] [facility] [address] [facility] (DEMADEX) 3-26 by mouth 2 [facility] 20 MG 10:36: (two) Medical tablet 05 times Center daily. traMADoL 2021-0 Yes 50mg Take [address] [facility] (ULTRAM) 50 3-26 by mouth [facility] mg tablet 10:36: every 8 Medic al 05 (eight) Center hours as needed for Pain. torsemide 2022-0 Yes 40mg Q.5D Take [address] [facility] [address] [facility] (DEMADEX) 3-26 by mouth 2 [facility] 20 MG 10:36: (two) Medical tablet 05 times Center daily. traMADoL 2021-0 Yes 50mg Take [address] [facility] (ULTRAM) 50 3-26 by mouth [facility] mg tablet 10:36: every 8 Medic al 05 (eight) Center hours as needed for Pain. carvediloL 2021-0 Yes 6.25mg Take 6.[address] (COREG) 3-26 mg by [facility] 6.25 MG 10:36: mouth 2 Medical tablet 04 (two) Center times daily with breakfast and dinner. colesevelam 0 Yes 1875mg Take 1,[address] [facility] (WELCHOL) 3-26 mg by [facility] 625 mg 10:36: mouth 2 Medical tablet 04 (two) Center times daily with breakfast and dinner. icosapent 2021-0 Yes 1g Q.5D Take [address] [facility] ethyL 3-26 by mouth 2 [facility] (Vascepa) 1 10:36: (two) Medic al gram Cap 04 times Center daily. ramelteon 0 Yes 8mg QD Take [address] [facility] (ROZEREM) 8 3-26 by mouth [facility] mg tablet 10:36: nightly. Medi antione 04 Center amiodarone 2021-0 Yes 200mg QD Take [address] (PACERONE) 3-26 mg by [facility] 200 MG 10:36: mouth Medical tablet 04 daily. Center pantoprazol 2021-0 Yes 40mg Q.5D Take [address] [facility] e 3-26 by mouth 2 [facility] (PROTONIX) 10:36: (two) Medica l 40 MG 04 times Center tablet daily. insulin 2021-0 Yes 20U Inject 20 [facility] [...] 10:36: daily. Medica l 04 Center insulin Yes 40U QD Inject 40 [facility] degludec 3-26 Units [facility] (Tresiba 10:36: subcutaneo Med ical FlexTouch 04 usly Center U-100) 100 daily. unit/mL (3 mL) InPn levothyroxi Yes 350ug Take [address] ne 3-26 mcg by [facility] (SYNTHROID, 10:36: mouth Medic al LEVOTHROID) 04 Every Center 175 MCG morning on tablet an empty stomach. carvediloL Yes 6.25mg Take 6.[address] (COREG) [...] gram Cap 04 times Center daily. ramelteon Yes 8mg QD Take 8 mg [facility] [...] unit/mL before (3 mL) InPn meals. apixaban Yes 2.5mg Q.5D Take 2.[address] (Eliquis) 3-26 mg by [facility] 2.5 mg Tab 10:36: mouth 2 Medi antione tablet 04 (two) Center times daily. cetirizine Yes 5mg QD Take [address] [facility] [address] [facility] (ZyrTEC) 5 3-26 by mouth [facility] MG tablet 10:36: daily. Medica l 04 Center insulin Yes 40U QD Inject 40 [facility] [...] Take [address] (ARICEPT) 3-26 03-20 by mouth 2 Aaron es 10 MG 10:36: 00:00 (two) Medical tablet 04 :00 times Center daily. gabapentin 2021- No 300mg Q.5D Take [address] (NEURONTIN) 3-26 03-20 mg by [facility] 300 MG 10:36: 00:00 mouth 2 Medical capsule 04 :00 (two) Center times daily. clopidogreL 2021-2021- No 75mg QD Take [address] [facility] (PLAVIX) 75 3-26 03-20 by mouth Aaron es mg tablet 10:36: 00:00 daily. Medic al 04 :00 Center allopurinoL 2021- No 100mg QD Take [address] [facility] (ZYLOPRIM) - 03-20 mg by [facility] 100 MG 10:36: 00:00 mouth Medical tablet 04 :00 daily. [place] finasteride 2021- No 5mg QD Take [address] [facility] (PROSCAR) 5 - 03-20 by mouth [facility] es mg tablet 10:36: 00:00 daily. Medic al 04 :00 [place] furosemide 2021- No 40mg QD Take [address] [facility] (LASIX) 40 - 03-20 by mouth [facility] MG tablet 10:36: 00:00 daily. Medic al 04 :00 [place] tamsulosin 2021- No .4mg QD Take 0.[address] (FLOMAX) - 03-20 mg by [facility] 0.4 mg Cap 10:36: 00:00 mouth Medic al 24 hr 04 :00 daily. [place] capsule donepeziL 2021- No 10mg Q.5D Take [address] (ARICEPT) 09-29 03-20 by mouth 2 [facility] 10 MG 10:36: 00:00 (two) Medical tablet 04 :00 times Center daily. gabapentin 2021- No 300mg Q.5D Take [address] (NEURONTIN) - 03-20 mg [facility] 300 MG 10:36: 00:00 mouth 2 Medical capsule 04 :00 (two) Center times daily. clopidogreL 2021- No 75mg QD Take [address] [facility] (PLAVIX) 75 09-29 03-20 by mouth [facility] mg tablet 10:36: 00:00 daily. Medic al 04 :00 [place] allopurinoL 2021- No 100mg QD Take [address] (ZYLOPRIM) - 03-20 mg by [facility] 100 MG 10:36: 00:00 mouth Medical tablet 04 :00 daily. [place] finasteride 2021- No 5mg QD Take [address] [facility] (PROSCAR) 5 - 03-20 by mouth [facility] es mg tablet 10:36: 00:00 daily. Medic al 04 :00 [place] furosemide 2021- No 40mg QD Take [address] (LASIX) 40 3-26 03-20 by mouth [facility] MG tablet 10:36: 00:00 daily. Medic al 04 :00 [place] tamsulosin 2021- No .4mg QD Take 0.[address] (FLOMAX) 3-26 03-20 mg by [facility] 0.4 mg Cap 10:36: 00:00 mouth Medic al 24 hr 04 :00 daily. [place] capsule amoxicillin 2021- No 1{tbl} Q.5D Take [address] -clavulanat 3-25 -27 tablet by Marbella kes e 00:00: 23:59 mouth 2 Medical (AUGMENTIN) 00 :00 (two) Center 875-125 mg times per tablet daily for 2 days. amoxicillin 2021- No 1{tbl} Q.5D Take [address] -clavulanat 3-25 -27 tablet by Marbella kes e 00:00: 23:59 mouth 2 Medical (AUGMENTIN) [...] DAY. Eliquis 2.5 2021- No TAKE ONE [facility] mg tablet 3-18 11-18 (1) st 00:00: 00:00 TABLET(S) Hospita 00 [...] Hospita capsule 19 :00 daily. l tamsulosin 0 2022- No .4mg QD Take 0.4 [facility] (FLOMAX) 3-15 03-[address] 0.4 mg 15:41: 00:00 mouth [facility]osp[facility] capsule 19 :00 daily. l tamsulosin 0 2022- No .4mg QD Take 0.4 [facility] (FLOMAX) 3-15 03-[address] 0.4 mg 15:41: 00:00 mouth [facility]ospita capsule 19 :00 daily. l tamsulosin 0 Yes [id number] .4mg QD Take 1 [facility] (FLOMAX) 3-[address] 0.4 mg 00:00: (0.4 mg [facility]osp[facility] capsule 00 total) by l mouth daily. albuterol 0 Yes [id number] 1{puff} Q6H Inhale 1 [facility] (ProAir 3-[address] HFA) 90 00:00: 6 (six) [facility]ospita mcg/actuati 00 hours as l on inhaler needed for wheezing or shortness of breath. tamsulosin 2021-0 Yes [id number] .4mg QD Take 1 [facility] (FLOMAX) 3-[address] 0.4 mg 00:00: (0.4 mg [facility] capsule 00 total) by l mouth daily. albuterol 0 Yes [id number] 1{puff} Q6H Inhale 1 [facility] (ProAir 3-[address] HFA) 90 00:00: 6 (six) [facility]ospita mcg/actuati 00 hours as l on inhaler needed for wheezing or shortness of breath. tamsulosin 2021-0 Yes [id number] .4mg QD Take 1 [facility] (FLOMAX) 3-[address] 0.4 mg 00:00: (0.4 mg [facility]osp[facility] capsule 00 total) by l mouth daily. albuterol 2021-0 Yes [id number] 1{puff} Q6H Inhale 1 [facility] (ProAir 3-[address] HFA) 90 00:00: 6 (six) [facility]ospita mcg/actuati 00 hours as l on inhaler needed for wheezing or shortness of breath. albuterol Yes [id number] 1{puff} Q6H Inhale 1 [facility] (ProAir 3-[address] HFA) 90 00:00: 6 (six) [facility]ospita mcg/actuati 00 hours as l on inhaler needed for wheezing or shortness of breath. tamsulosin 2021- No [id number] .4mg QD Take 1 [facility] (FLOMAX) 315 11-[address] 0.4 mg 00:00: 00:00 (0.4 mg [facility] capsule 00 :00 total) by l mouth daily. torsemide 2021- No 40mg Q.5D Take 2 [...] a day for 30 days. Eliquis 2.5 2021-2021- No 2.5mg Q.5D Take 1 [facility] mg tablet 09-[address] 00:00: 00:00 (2.5 mg [facility]ospita 00 :00 total) by l mouth 2 (two) times a day. Eliquis 2.5 2021- No 2.5mg Q.5D Take 1 [facility] mg tablet 3-14 03-[address] 00:00: 00:00 (2.5 mg Hospita [...] No TAKE ONE [facility] (PLAVIX) 75 -28 -29 (1) st mg tablet 00:00: 00:00 TABLET(S) Ho [facility] 00 :00 BY MOUTH l ONCE A DAY. clopidogreL 2021- No TAKE ONE [facility] (PLAVIX) 75 -28 -29 (1) st mg tablet 00:00: 00:00 TABLET(S) [facility] 00 :00 BY MOUTH l ONCE A DAY. clopidogreL 2021- No TAKE ONE [facility] (PLAVIX) 75 -28 -29 (1) st mg tablet 00:00: 00:00 TABLET(S) [facility] 00 :00 BY [place]OU[place] [id number] 1{tbl} Q.5D Take 1 [facility] en-codeine 07-[address] (TYLENOL 00:00: 05:59 mouth 2 Hospi ta WITH 00 :00 (two) l CODEINE #3) times a 300-30 mg day as per tablet needed for moderate pain for up to 3 [place] [id number] 1{tbl} Q.5D Take 1 [facility] en-codeine 07-[address] (TYLENOL 00:00: 05:59 mouth 2 Hospi ta WITH 00 :00 (two) l CODEINE #3) times a 300-30 mg day as per tablet needed for moderate pain for up to 3 days .acute pain. acetamin[place] 2021- [place] [id number] 1{tbl} Q.5D Take 1 [facility] en-codeine 07-[address] (TYLENOL 00:00: 05:59 mouth 2 Hospi ta WITH 00 :00 (two) l CODEINE #3) times a 300-30 mg day as per tablet needed for moderate pain for up to 3 days .acute pain. ondansetron 2-0 Yes 4mg Q8H Take 1 [...] nightly as needed for muscle spasms. ondansetron 2022-0 Yes 4mg Q8H Take 1 Meth zafar [...] nightly as needed for muscle spasms. ondansetron 4mg Q8H Take 1 [facility] (Zofran) 4 07-2517 tablet (4 st MG tablet 00:00: 00:00 mg total) [facility] 00 :00 by mouth l every 8 (eight) hours as needed for nausea or vomiting. methocarbam No 500mg QD Take 1 [facility] oL 07-[facility]-[address] (Robaxin) 00:00: 00:00 (500 mg [facility] 500 MG 00 :00 total) by l tablet mouth nightly as [...] 200ug QD Take 200 [facility] ne 2-29 12- mcg by st (SYNTHROID) 20:34: 00:00 mouth [facility] 200 mcg 18 :00 daily. l tablet torsemide 2020-07- No 20mg QD Take 1 [facility] (DEMADEX) - tablet (20 st 20 MG 00:00: 00:00 [...] BY MOUTH l TWICE A DAY. carvediloL 2020-07- No TAKE ONE [facility] (COREG) 2-15 10-05 (1) st 6.25 MG 00:00: 00:00 TABLET(S) [facility] tablet 00 :00 BY MOUTH l TWICE [...] No TAKE ONE [facility] (ARICEPT) 2-10 29 (1) st 10 MG 00:00: 00:00 TABLET(S) [...] 2020-07 Yes TAKE TWO [facility] (NEURONTIN) 07-25 (2) st 300 mg 00:00: CAPSULE(S) Hospi ta capsule 00 BY MOUTH l TWICE A DAY. gabapentin 2020-07 Yes TAKE TWO [facility] (NEURONTIN) 07-25 (2) st 300 mg 00:00: CAPSULE(S) Hospi [...] l TWICE A DAY. metOLazone 2020-07- No [id number] TAKE ONE [facility] (ZAROXOLYN) 07-14 9100 (1) TABLET s t 2.5 MG 00:00: 00:00 (2.5 MG [facility]ospita tablet 00 :00 TOTAL) BY l MOUTH NEEDED (FOR A WEIGHT GAIN OF 3 TO 5 POUNDS). metOLazone 2020-07- No [id number] TAKE ONE [facility] (ZAROXOLYN) 07-14 9100 (1) TABLET s t 2.5 MG 00:00: 00:00 (2.5 MG [facility]osp[facility] tablet 00 :00 TOTAL) BY l MOUTH NEEDED (FOR A WEIGHT GAIN OF 3 TO 5 POUNDS). metOLazone 2020-07- No [id number] TAKE ONE [facility] (ZAROXOLYN) 07-14 9100 (1) TABLET s t 2.5 MG 00:00: 00:00 (2.5 MG [facility]osp[facility] tablet 00 :00 TOTAL) BY l MOUTH NEEDED (FOR A WEIGHT GAIN OF 3 TO 5 POUNDS). colesevelam 2020-07- No [id number] 625mg Q.5D Take 1 [facility] (WelChoL) 07-[address] 625 mg 00:00: 04:59 (625 mg [facility]osp[facility] tablet 00 :00 total) by l mouth 2 (two) times a day with meals. colesevelam 2020-07- No [id number] 625mg Q.5D Take 1 [facility] (WelChoL) 07-11 11-[address] 625 mg 00:00: 04:59 (625 mg [facility] tablet 00 :00 total) by l mouth 2 (two) times a day with meals. colesevelam 2020-2021- No [id number] 625mg Q.5D Take 1 [facility] (WelChoL) 07-11 08-[address] 625 mg 00:00: 00:00 (625 mg [facility] tablet 00 :00 total) by l mouth 2 (two) times a day with meals. colesevelam 2020-2021- No [id number] 625mg Q.5D Take 1 [facility] (WelChoL) 07-11-[address] 625 mg 00:00: 00:00 (625 [...] BY MOUTH l TWICE A DAY. Vascepa 2020-07- No TAKE TWO [facility] gram 0-29 09-29 (2) st capsule 00:00: 00:00 CAPSULE(S) Hos [facility]iel 00 :00 BY MOUTH l TWICE A DAY. ramelteon [...] ezekiel 00 by mouth l nightly. ramelteon 2020-07- No 8mg QD Take 1 [facility] (ROZEREM) 8 0-28 09-28 tablet (8 st mg tablet 00:00: 00:00 mg total) [facility] 00 :00 by mouth l nightly. colesevelam 2020-07- No [id number] 625mg Q.5D Take 1 [facility] (WelChoL) 0 11-[address] 625 mg 00:00: 00:00 (625 mg [facility] tablet 00 :00 total) by l mouth 2 (two) times a day with meals. colesevelam 2020-07- No [id number] 625mg Q.5D Take 1 [facility] (WelChoL) 0-28 11-[address] 625 mg 00:00: 00:00 (625 mg [facility] tablet 00 :00 total) by l mouth 2 (two) times a day with meals. colesevelam 2020-07- No [id number] 625mg Q.5D Take 1 [facility] (WelChoL) 0 11-[address] 625 mg 00:00: 00:00 (625 mg [facility] tablet 00 :00 total) by l mouth 2 (two) times a day with meals. metOLazone 2020- No [id number] 2.5mg Take 1 [facility] (ZAROXOLYN) 04-[address] 2.5 MG 00:00: 00:00 (2.5 mg [facility]osp[facility] tablet 00 :00 total) by l mouth as needed (for a weight gain of 3 to 5 pounds). metOLazone 2020- No [id number] 2.5mg Take 1 [facility] (ZAROXOLYN) 04-[address] 2.5 MG 00:00: 00:00 (2.5 mg [facility]osp[facility] tablet 00 :00 total) by l mouth as needed (for a weight gain of 3 to 5 pounds). metOLazone 2020- No [id number] 2.5mg Take 1 [facility] (ZAROXOLYN) 04-03 9100 [...] BY MOUTH l ONCE A DAY. amIODarone 2021- No TAKE ONE [facility] (PACERONE) 03-29 (1) st 200 MG 00:00: 00:00 TABLET(S) Hospi ta tablet 00 :00 BY MOUTH l ONCE A DAY. cephalexin [...] :00 taking l anymore fluticasone 2020- No [id number] 100ug QD 2 sprays [facility] propionate 03-28 ([address] (FLONASE) 00:00: 00:00 total) by [facility] 50 00 :00 Each Nare l mcg/actuati route on nasal daily. spray fluticasone 2020- No [id number] 100ug QD 2 sprays [facility] propionate 03-28 ([address] (FLONASE) 00:00: 00:00 total) by [facility] 50 00 :00 Each Nare l mcg/actuati route on nasal daily. spray fluticasone 2020- No [id number] 100ug QD 2 sprays [facility] propionate 03-28 ([address] (FLONASE) 00:00: 00:00 total) by [facility] 50 00 :00 Each Nare l mcg/actuati route on nasal daily. spray cholestyram 2020- No [id number] 1{packe QD Take 1 [facility] ine - 10-28 t} packet by st ([employer]) 00:00: 00:00 mouth [facility] ta 4 gram 00 :00 daily with l packet breakfast. cholestyram 2020- No [id number] 1{packe QD Take 1 [facility] -22 10-28 t} packet by st ([employer]) 00:00: 00:00 mouth [facility]pi [facility] 4 gram 00 :00 daily with l packet breakfast. cholestyram 2020- No [id number] 1{packe QD Take 1 [facility]e -22 10-28 t} packet by st ([employer]) 00:00: 00:00 mouth [facility]pi ta 4 gram 00 :00 daily with l packet breakfast. BUMETanide 2020- No 2mg QD Take 2 mg M [facility] (BUMEX) 2 9- 09-[address] MG tablet 11:00: 00:00 daily. Hospi ta 10 :00 l BUMETanide 2020- No 2mg QD Take 2 mg M [facility] (BUMEX) 2 9-10 09-[address] MG tablet 11:00: 00:00 daily. Hospi ta 10 :00 l BUMETanide 2020- No 2mg QD Take 2 mg M [facility] (BUMEX) 2 03-[address] MG tablet 10:58: 00:00 daily. Hospi ta 45 :00 l BUMETanide No 2mg QD Take 2 mg M [...] No TAKE ONE Me thodi (DESYREL) 03-04 () st 50 MG 00:00: 00:00 TABLET(S) Hospit a tablet 00 :00 BY MOUTH l ONCE A DAY IN THE EVENING. dicyclomine 2020- No 20mg Q12H Take 20 mg [facility] (BENTYL) 20 03-02- by mouth st mg tablet 13:56: 00:00 every 12 Hos ezekiel 15 :00 (twelve) l hours. dicyclomine 2020- No 20mg Q12H Take 20 mg [facility] (BENTYL) 20 03-02- by mouth st mg tablet 13:56: 00:00 every 12 Hos eezkiel 15 :00 (twelve) l hours. pantoprazol Yes [...] daily. Hospi ta 28 :00 l metOLazone 2021-0 2021- No 2.5mg Take 1 [facility] (ZAROXOLYN) [...] MOUTH l TWICE A DAY. torsemide Yes 20mg QD Take 20 mg UT (Demadex) 01-01 by mouth 1 Heal th 20 MG [...] Take 10 mg U T (ZyrTEC) 10 -28 by mouth 1 He alth MG tablet [...] 16:47: (four) 50 times a day. cetirizine 202-0 Yes 10mg QD Take 10 mg U [...] Take 6.25 UT (Coreg) 5-25 mg [address] [facility] 6.25 MG 00:00: mouth 2 tablet 00 [...] BY MOUTH l ONCE A DAY. torsemide 2020-2022- No 40mg Q.5D Take 2 Metho di (DEMADEX) 423 09-[address] 20 MG 00:00: 04:59 (40 mg [facility] tablet 00 :00 total) by l mouth 2 (two) times a day for 30 days. torsemide 2021- No 40mg Q.5D Take 2 Metho di (DEMADEX) 4-23 09-[address] 20 MG 00:00: 00:00 (40 mg [facility] tablet 00 :00 total) by l mouth 2 (two) times a day for 30 days. Fiasp 2020-0 Yes 20U [id number] Inject 20 M ethodi FlexTouch 4-[id number] U-100 00:00: 3D [facility] the [facility] Insulin 100 00 skin 3 l unit/mL (3 (three) mL) insulin times a pen day before meals. 24 in am 20 before lunch and dinner Fiasp 2020-0 Yes 20U [id number] 20 Units 3 [facility] FlexTouch 4-15 [id number] (three) s t U-100 00:00: 3D times a [facility]ospita Insulin 100 00 day before l unit/mL (3 meals. mL) insulin pen Fiasp Yes 20U [id number] 20 Units 3 [facility] FlexTouch 4-15 [id number] (three) s t U-100 00:00: 3D times a [facility]ospita Insulin 100 00 day before l unit/mL (3 meals. mL) insulin pen Fiasp 0 2022- No 24U Q.5D Inject 24 Method i FlexTouch 4-15 10-[address] U-100 00:00: 00:00 [facility] the Hospit a Insulin 100 00 :00 skin 2 l unit/mL (3 (two) mL) insulin times a pen day. before lunch and dinner Eliquis 2.5 2020-0 [...] tablet 00 (one) time each day. amIODarone 2020-2020- No 200mg QD Take 1 [facility] (PACERONE) -04 04- tablet st 200 MG 00:00: 00:00 (200 mg [facility] tablet 00 :00 total) by l mouth daily. amIODarone 2020-2020- No 200mg QD Take 1 [facility] (PACERONE) -04 04- tablet st 200 MG 00:00: 00:00 (200 mg [facility] tablet 00 :00 total) by l mouth daily. amIODarone 2020-2020- No 200mg QD Take 1 Met [facility] (PACERONE) -04 04- tablet st 200 MG 00:00: 00:00 (200 [...] tablet 00 (one) time each day. allopurinol Yes 100mg QD Take 100 U T (Zyloprim) 1-14 mg by [facility] 100 MG 00:00: mouth 1 tablet 00 (one) time each day. [facility] 5 2019-07 Yes TAKE ONE [facility] MG 0-22 (1) Health 00:00: TABLET(S) 00 BY MOUTH ONCE A DAY WITH BREAKFAST. [facility] 2019-07 Yes TAKE ONE [facility] MG 0-22 (1) Health 00:00: TABLET(S) 00 BY MOUTH ONCE A DAY WITH BREAKFAST. [facility] 5 2019-07 Yes TAKE ONE [facility] MG 0-22 (1) Health 00:00: TABLET(S) 00 BY MOUTH ONCE A DAY WITH BREAKFAST. [facility] 2019-07 Yes TAKE ONE [facility] MG 0-22 [...] AND HALF (1/2) A TABLET INTHE AFTERNOON. ranitidine 2017-07- No TAKE ONE [facility] ([facility]AC[facility] 07-[facility] (1[facility] 150 MG 00:00: 00:00 TABLET(S) Medic al tablet 00 :00 BY MOUTH Center ONCE A DAY. ranitidine 2017-07- No TAKE ONE [facility] (Z[facility]AC[facility] 07-07 (1) [facility] 150 MG 00:00: 00:00 TABLET(S) Medic al tablet 00 :00 BY MOUTH Center ONCE A DAY. calcitriol 2021- No TAKE ONE [facility] (ROCALTROL) 5-03 03-20 (1) [facility] 0.25 MCG 00:00: 00:00 CAPSULE(S) Me dical capsule 00 :00 BY MOUTH Center ONCE A DAY. calcitriol 2021- No TAKE ONE [facility] (ROCALTROL) 5-03 03-20 (1) [facility] 0.25 MCG 00:00: 00:00 CAPSULE(S) Me dical capsule 00 :00 BY MOUTH Center ONCE A DAY. tadalafil 2016-07 Yes 1 TABLET Univ ers (CIALIS) 20 0-03 DAILY ity of mg tablet 10:04: NEEDED [address] Dexlansopra 2016-07 Yes Take by Uni vers zole 0-03 mouth. ity of (DEXILANT) 10:04: [place] 60 mg 57 Medical capsule Branch tadalafil 2016-07 Yes 1 TABLET Univ ers (CIALIS) 20 0-03 DAILY ity of mg tablet 10:04: NEEDED [address] Dexlansopra 2016-07 Yes Take by Uni vers zole 0-03 mouth. ity of (DEXILANT) 10:04: [place] 60 mg 57 Medical capsule Branch tadalafil 2016-07 Yes 1 TABLET Univ ers (CIALIS) 20 0-03 DAILY ity of mg tablet 10:04: NEEDED [address] Dexlansopra 2016-07 Yes Take by Uni vers zole 0-03 mouth. ity of (DEXILANT) 10:04: [place] 60 mg 57 Medical capsule Branch amiodarone 2016-07 Yes 200mg Take 200 Un josh 200 mg 0-03 mg by ity of tablet 10:04: mouth. [address] Branch aspirin 325 2016-07 Yes 325mg Take 325 U nivers mg tablet 0-03 mg by ity of 10:04: mouth. [address] Branch Azelastine 2016-07 Yes Use in Unive rs (ASTEPRO) 0-03 each ity of 0.15 % 10:04: nostril. [place] (205.5 mcg) Medical nasal spray Branch amiodarone 2016-07 Yes 200mg Take 200 Un josh 200 mg 0-03 mg by ity of tablet 10:04: mouth. [address] aspirin 325 2016- Yes 325mg Take 325 U nivers mg tablet 0-03 mg by ity of 10:04: mouth. [address] Azelastine 2016-07 Yes Use in Unive rs (ASTEPRO) 0-03 each ity of 0.15 % 10:04: nostril. [place] (205.5 mcg) Medical nasal spray Branch amiodarone 2016-07 Yes 200mg Take 200 Un josh 200 mg 0-03 mg by ity of tablet 10:04: mouth. [address] aspirin 325 2016-07 Yes 325mg Take 325 U nivers mg tablet 0-03 mg by ity of 10:04: mouth. [address] Azelastine 2016-07 Yes Use in Unive rs (ASTEPRO) 0-03 each ity of 0.15 % 10:04: nostril. [place] (205.5 mcg) Medical nasal spray [place] rosuvastati 2016-07 Yes 1 TABLET Un josh n (CRESTOR) 0-03 DAILY ity of 10 mg 09:38: [address] doxazosin 4 2016-07 Yes 2mg Take 2 mg U nivers mg tablet 0-03 by mouth. ity o f 09:38: [address] fosinopril 2016-07 Yes 20mg Take 20 mg U nivers 20 mg 0-03 by mouth. ity of tablet 09:38: [address] rosuvastati 2016-07 Yes 1 TABLET Un josh n (CRESTOR) 0-03 DAILY ity of 10 mg 09:38: [address] doxazosin 4 2016-07 Yes 2mg Take 2 mg U nivers mg tablet 0-03 by mouth. ity o f 09:38: [address] fosinopril 2016-07 Yes 20mg Take 20 mg U nivers 20 mg 0-03 by mouth. ity of tablet 09:38: [address] rosuvastati 2016-07 Yes 1 TABLET Un josh n (CRESTOR) 0-03 DAILY ity of 10 mg 09:38: [address] doxazosin 4 2016-07 Yes 2mg Take 2 mg U nivers mg tablet 0-03 by mouth. ity o f 09:38: [address] fosinopril 2016- Yes 20mg Take 20 mg U nivers 20 mg 0-03 by mouth. ity of tablet 09:38: [address] cephALEXin 0 Yes TAKE ONE Uni vers [...] NEXT STRIPS 8-08 ity of strip 00:00: [address] CONTOUR 2016-0 Yes Univers NEXT STRIPS 8-08 ity of strip 00:00: [address] CONTOUR 2016-0 Yes Univers NEXT STRIPS 8-08 ity of strip 00:00: [address] allopurinol 0 Yes Univer s 100 mg 7-27 ity of tablet 00:00: [place] [facility] allopurinol 2016-0 Yes Univer s 100 mg 7-27 ity of tablet 00:00: [place] [facility] allopurinol 2016-0 Yes Univer s 100 mg 7-27 ity of tablet 00:00: [address] calcitriol Yes TAKE ONE Uni vers [...] 7-13 (1) ity of tablet 00:00: TABLET(S) [place] BY MOUTH Medical ONCE A DAY Branch IN THE MORNING. levothyroxi Yes TAKE ONE Un josh ne 200 mcg 7-13 (1) ity of tablet 00:00: TABLET(S) [place] BY MOUTH Medical ONCE A DAY Branch IN THE MORNING. ramelteon 8 ramelteon 8 No ramelteon [place] mg tablet mg tablet 8 mg [facility] TAKE ONE TAKE ONE tablet Urolo gy (1) (1) TAKE ONE TABLET(S) TABLET(S) (1) BY MOUTH BY MOUTH TABLET(S) EVERY EVERY BY MOUTH NIGHT. NIGHT. EVERY NIGHT. simvastatin simvastatin No simvastati [place] 20 mg 20 mg n 20 mg [facility] tablet TAKE tablet TAKE tablet Urology ONE (1) ONE (1) TAKE ONE TABLET(S) TABLET(S) (1) BY MOUTH BY MOUTH TABLET(S) ONCE A DAY. ONCE A DAY. BY MOUTH ONCE A DAY. spironolact spironolact No spironolac [place] one 25 mg one 25 mg tone 25 mg [facility] tablet TAKE tablet TAKE tablet Urology ONE (1) ONE (1) TAKE ONE TABLET(S) TABLET(S) (1) BY MOUTH BY MOUTH TABLET(S) DAILY. DAILY. BY MOUTH DAILY. sulfamethox sulfamethox No sulfametho [place] azole 800 azole 800 xazole 800 [facility] mg-trimetho mg-trimetho mg-trimeth Urology prim 160 mg prim 160 mg oprim 160 tablet TAKE tablet TAKE mg tablet ONE (1) ONE (1) TAKE ONE TABLET(S) TABLET(S) (1) BY MOUTH BY MOUTH TABLET(S) TWICE A TWICE A BY MOUTH DAY. DAY. TWICE A DAY. Sure Sure No Sure [place] Comfort Comfort Comfort [facility] Insulin Insulin Insulin Urolog y Syringe 0.5 Syringe 0.5 Syringe mL 31 gauge mL 31 gauge 0.5 mL 31 x 11/19" USE x 11/19" USE gauge x THREE TIMES THREE TIMES 11/19" USE A DAY A DAY THREE DIRECTED. DIRECTED. TIMES A DAY DIRECTED. Symbicort Symbicort No Symbicort [place] 80 mcg-4.5 80 mcg-4.5 80 mcg-4.5 [facility] mcg/actuati mcg/actuati mcg/actuat Urology on HFA on HFA ion HFA aerosol aerosol aerosol inhaler inhaler inhaler INHALE TWO INHALE TWO INHALE TWO (2) PUFF(S) (2) PUFF(S) (2) BY MOUTH BY MOUTH PUFF(S) BY TWICE A TWICE A MOUTH DAY. DAY. TWICE A DAY. tamsulosin tamsulosin No tamsulosin [place] 0.4 mg 0.4 mg 0.4 mg [facility] capsule capsule capsule Urolog y TAKE ONE TAKE ONE TAKE ONE (1) (1) (1) CAPSULE(S) CAPSULE(S) CAPSULE(S) BY MOUTH BY MOUTH BY MOUTH ONCE A DAY. ONCE A DAY. ONCE A DAY. torsemide torsemide No torsemide [place] 20 mg 20 mg 20 mg [facility] tablet TAKE tablet TAKE tablet Urology TWO (2) TWO (2) TAKE TWO TABLET(S) TABLET(S) (2) BY MOUTH BY MOUTH TABLET(S) TWICE A TWICE A BY MOUTH DAY. DAY. TWICE A DAY. trazodone trazodone No trazodone [place] 50 mg 50 mg 50 mg [facility] tablet TAKE tablet TAKE tablet Urology ONE (1) ONE (1) TAKE ONE TABLET(S) TABLET(S) (1) BY MOUTH BY MOUTH TABLET(S) ONCE A DAY ONCE A DAY BY MOUTH IN THE IN THE ONCE A DAY EVENING. EVENING. IN THE EVENING. Tresiba Tresiba No Tresiba [place] FlexTouch FlexTouch FlexTouch [facility] U-100 U-100 U-100 Urology insulin 100 insulin 100 insulin unit/mL (3 unit/mL (3 100 mL) mL) unit/mL (3 subcutaneou subcutaneou mL) s pen s pen subcutaneo INJECT 38 INJECT 38 us pen UNITS UNDER UNITS UNDER INJECT 38 THE SKIN THE SKIN UNITS ONCE DAILY. ONCE DAILY. UNDER THE SKIN ONCE DAILY. Tresiba Tresiba No Tresiba [place] FlexTouch FlexTouch FlexTouch [facility] U-200 U-200 U-200 Urology insulin 200 insulin 200 insulin unit/mL (3 unit/mL (3 200 mL) mL) unit/mL (3 subcutaneou subcutaneou mL) s pen s pen subcutaneo INJECT 80 INJECT 80 us pen UNITS UNITS INJECT 80 SUBCUTANEOU SUBCUTANEOU UNITS SLY ONCE A SLY ONCE A SUBCUTANEO DAY. DAY. USLY ONCE INCREASE TO INCREASE TO A DAY. 100 UNITS 100 UNITS INCREASE DAILY IF BG DAILY IF BG TO 100 IS ABOVE IS ABOVE UNITS 200ML/DL. 200ML/DL. DAILY IF BG IS ABOVE 200ML/DL. Trulicity Trulicity No Trulicity [place] 1.5 mg/0.5 1.5 mg/0.5 1.5 mg/0.5 [facility] mL mL mL Urology subcutaneou subcutaneou subcutaneo s pen s pen us pen injector injector injector INJECT 1.5 INJECT 1.5 INJECT 1.5 MG MG MG SUBCUTANEOU SUBCUTANEOU SUBCUTANEO SLY ONCE A SLY ONCE A USLY ONCE WEEK. WEEK. A WEEK. Vascepa 1 Vascepa 1 No Vascepa 1 [place] gram gram gram [facility] capsule capsule capsule Urolog y TAKE TWO TAKE TWO TAKE TWO (2) (2) (2) CAPSULE(S) CAPSULE(S) CAPSULE(S) BY MOUTH BY MOUTH BY MOUTH TWICE A TWICE A TWICE A DAY. DAY. DAY. acetaminoph acetaminoph No acetaminop [place] en 300 en 300 hen 300 [facility] mg-codeine mg-codeine mg-codeine Urology 30 mg 30 mg 30 mg tablet TAKE tablet TAKE tablet ONE (1) ONE (1) TAKE ONE TABLET BY TABLET BY (1) TABLET MOUTH 2 MOUTH 2 BY MOUTH 2 (TWO) TIMES (TWO) TIMES (TWO) A DAY A DAY TIMES A NEEDED FOR NEEDED FOR DAY MODERATE MODERATE NEEDED FOR PAIN FOR UP PAIN FOR UP MODERATE TO 3 DAYS. TO 3 DAYS. PAIN FOR UP TO 3 DAYS. albuterol albuterol No albuterol [place] sulfate HFA sulfate HFA sulfate [facility] 90 90 HFA 90 Urology mcg/actuati mcg/actuati mcg/actuat on aerosol on aerosol ion inhaler inhaler aerosol INHALE ONE INHALE ONE inhaler (1) PUFF(S) (1) PUFF(S) INHALE ONE BY MOUTH BY MOUTH (1) EVERY SIX EVERY SIX PUFF(S) BY HOURS HOURS MOUTH NEEDED FOR NEEDED FOR EVERY SIX WHEEZING OR WHEEZING OR HOURS SHORTNESS SHORTNESS NEEDED FOR OF BREATH. OF BREATH. WHEEZING OR SHORTNESS OF BREATH. allopurinol allopurinol No allopurino [place] 100 mg 100 mg l 100 mg [facility] tablet TAKE tablet TAKE tablet Urology ONE (1) ONE (1) TAKE ONE TABLET(S) TABLET(S) (1) BY MOUTH BY MOUTH TABLET(S) ONCE A DAY. ONCE A DAY. BY MOUTH ONCE A DAY. allopurinol allopurinol No allopurino [place] 300 mg 300 mg l 300 mg [facility] tablet TAKE tablet TAKE tablet Urology ONE (1) ONE (1) TAKE ONE TABLET (300 TABLET (300 (1) TABLET MG TOTAL) MG TOTAL) (300 MG BY MOUTH BY MOUTH TOTAL) BY DAILY. DAILY. MOUTH DAILY. amiodarone amiodarone No amiodarone [place] 200 mg 200 mg 200 mg [facility] tablet TAKE tablet TAKE tablet Urology ONE (1) ONE (1) TAKE ONE TABLET(S) TABLET(S) (1) BY MOUTH BY MOUTH TABLET(S) ONCE A DAY. ONCE A DAY. BY MOUTH ONCE A DAY. amoxicillin amoxicillin No amoxicilli [place] 500 mg 500 mg n 500 mg [facility] capsule capsule capsule Urolog y TAKE 1 TAKE 1 TAKE 1 CAPSULE BY CAPSULE BY CAPSULE BY MOUTH THREE MOUTH THREE MOUTH TIMES A DAY TIMES A DAY THREE TIMES A DAY amoxicillin amoxicillin No amoxicilli [place] [phone] [facility] mg-potassiu mg-potassiu mg-potassi Urology m m um clavulanate clavulanate clavulanat 125 mg 125 mg e 125 mg tablet TAKE tablet TAKE tablet ONE (1) ONE (1) TAKE ONE TABLET(S) TABLET(S) (1) BY MOUTH BY MOUTH TABLET(S) TWICE A DAY TWICE A DAY BY MOUTH FOR 2 DAYS. FOR 2 DAYS. TWICE A DAY FOR 2 DAYS. benzonatate benzonatate No benzonatat [place] 100 mg 100 mg e 100 mg [facility] capsule capsule capsule Urolog y TAKE ONE TAKE ONE TAKE ONE (1) (1) (1) CAPSULE(S) CAPSULE(S) CAPSULE(S) BY MOUTH BY MOUTH BY MOUTH THREE TIMES THREE TIMES THREE A DAY A DAY TIMES A NEEDED FOR NEEDED FOR DAY COUGH. COUGH. NEEDED FOR COUGH. bumetanide bumetanide No bumetanide [place] 2 mg tablet 2 mg tablet 2 mg M etro TAKE TWO TAKE TWO tablet Urolo gy (2) (2) TAKE TWO TABLET(S) TABLET(S) (2) BY MOUTH BY MOUTH TABLET(S) TWICE A TWICE A BY MOUTH DAY. DAY. TWICE A DAY. buspirone 5 buspirone 5 No buspirone [place] mg tablet mg tablet 5 mg [facility] TAKE ONE TAKE ONE tablet Urolo gy (1) (1) TAKE ONE TABLET(S) TABLET(S) (1) BY MOUTH BY MOUTH TABLET(S) THREE TIMES THREE TIMES BY MOUTH A DAY A DAY THREE NEEDED FOR NEEDED FOR TIMES A ANXIETY. ANXIETY. DAY NEEDED FOR ANXIETY. calcitriol calcitriol No calcitriol [place] 0.25 mcg 0.25 mcg 0.25 mcg Met ro capsule capsule capsule Urolog y TAKE ONE TAKE ONE TAKE ONE (1) (1) (1) CAPSULE(S) CAPSULE(S) CAPSULE(S) BY MOUTH BY MOUTH BY MOUTH ONCE A DAY. ONCE A DAY. ONCE A DAY. carvedilol carvedilol No carvedilol [place] 12.5 mg 12.5 mg 12.5 mg [facility] tablet TAKE tablet TAKE tablet Urology ONE (1) ONE (1) TAKE ONE TABLET(S) TABLET(S) (1) BY MOUTH BY MOUTH TABLET(S) TWICE A TWICE A BY MOUTH DAY. DAY. TWICE A DAY. carvedilol carvedilol No carvedilol [place] 3.125 mg 3.125 mg 3.125 mg Met ro tablet TAKE tablet TAKE tablet Urology ONE (1) ONE (1) TAKE ONE TABLET(S) TABLET(S) (1) BY MOUTH BY MOUTH TABLET(S) TWICE A TWICE A BY MOUTH DAY. DAY. TWICE A DAY. carvedilol carvedilol No carvedilol [place] 6.25 mg 6.25 mg 6.25 mg [facility] tablet TAKE tablet TAKE tablet Urology ONE (1) ONE (1) TAKE ONE TABLET(S) TABLET(S) (1) BY MOUTH BY MOUTH TABLET(S) TWICE A TWICE A BY MOUTH DAY. DAY. TWICE A DAY. cefdinir cefdinir No cefdinir [place] greenmayi 300 mg 300 mg 300 mg [facility] capsule capsule capsule Urolog y TAKE ONE TAKE ONE TAKE ONE (1) (1) (1) CAPSULE(S) CAPSULE(S) CAPSULE(S) BY MOUTH BY MOUTH BY MOUTH TWICE A TWICE A TWICE A DAY. DAY. DAY. ceftriaxone ceftriaxone No ceftriaxon [place] 2 gram 2 gram e 2 gram [facility] solution solution solution Uro logy for for for injection injection injection cephalexin cephalexin No cephalexin [place] 500 mg 500 mg 500 mg [facility] capsule capsule capsule Urolog y cetirizine cetirizine No cetirizine [place] 5 mg tablet 5 mg tablet 5 mg M etro TAKE ONE TAKE ONE tablet Urolo gy (1) (1) TAKE ONE TABLET(S) TABLET(S) (1) BY MOUTH BY MOUTH TABLET(S) ONCE A DAY. ONCE A DAY. BY MOUTH ONCE A DAY. cholestyram cholestyram No cholestyra [place] ine (with ine (with mine (with [facility] sugar) 4 sugar) 4 sugar) 4 Uro logy gram powder gram powder gram for susp in for susp in powder for a packet a packet susp in a MIX ONE (1) MIX ONE (1) packet MIX PACKET WITH PACKET WITH ONE (1) WATER AND WATER AND PACKET TAKE BY TAKE BY WITH WATER MOUTH DAILY MOUTH DAILY AND TAKE WITH WITH BY MOUTH BREAKFAST. BREAKFAST. DAILY WITH BREAKFAST. clopidogrel clopidogrel No clopidogre [place] 75 mg 75 mg l 75 mg [facility] tablet TAKE tablet TAKE tablet Urology ONE (1) ONE (1) TAKE ONE TABLET(S) TABLET(S) (1) BY MOUTH BY MOUTH TABLET(S) ONCE A DAY. ONCE A DAY. BY MOUTH ONCE A DAY. clotrimazol clotrimazol No clotrimazo [place] e-betametha e-betametha le-betamet [facility] sone 1 sone 1 hasone 1 Urology %-0.05 % %-0.05 % %-0.05 % topical topical topical cream APPLY cream APPLY cream TO AFFECTED TO AFFECTED APPLY TO AREA TWICE AREA TWICE AFFECTED A DAY. A DAY. AREA TWICE A DAY. colesevelam colesevelam No colesevela [place] 625 mg 625 mg m 625 mg [facility] tablet TAKE tablet TAKE tablet Urology ONE (1) ONE (1) TAKE ONE TABLET(S) TABLET(S) (1) BY MOUTH BY MOUTH TABLET(S) TWICE A DAY TWICE A DAY BY MOUTH WITH MEALS. WITH MEALS. TWICE A DAY WITH MEALS. Contour Contour No Contour [place] Next Test Next Test Next Test [facility] Strips Strips Strips Urology CHECK AT CHECK AT CHECK AT LEAST 4 LEAST 4 LEAST 4 TIMES PER TIMES PER TIMES PER DAY. DAY. DAY. donepezil donepezil No donepezil [place] 10 mg 10 mg 10 mg [facility] tablet TAKE tablet TAKE tablet Urology ONE (1) ONE (1) TAKE ONE TABLET(S) TABLET(S) (1) BY MOUTH BY MOUTH TABLET(S) TWICE A TWICE A BY MOUTH DAY. DAY. TWICE A DAY. donepezil 5 donepezil 5 No donepezil [place] mg tablet mg tablet 5 mg [facility] tablet Urology doxycycline doxycycline No doxycyclin [place] hyclate 100 hyclate 100 e hyclate [facility] mg capsule mg capsule 100 mg U rology TAKE ONE TAKE ONE capsule (1) (1) TAKE ONE CAPSULE(S) CAPSULE(S) (1) BY MOUTH BY MOUTH CAPSULE(S) TWICE A DAY TWICE A DAY BY MOUTH FOR 7 DAYS. FOR 7 DAYS. TWICE A DAY FOR 7 DAYS. Eliquis 2.5 Eliquis 2.5 No Eliquis [place] mg tablet mg tablet 2.5 mg Met ro TAKE ONE TAKE ONE tablet Urolo gy (1) (1) TAKE ONE TABLET(S) TABLET(S) (1) BY MOUTH BY MOUTH TABLET(S) TWICE A TWICE A BY MOUTH DAY. DAY. TWICE A DAY. eszopiclone eszopiclone No eszopiclon [place] 1 mg tablet 1 mg tablet e 1 mg [facility] TAKE ONE TAKE ONE tablet Urolo gy (1) (1) TAKE ONE TABLET(S) TABLET(S) (1) BY MOUTH BY MOUTH TABLET(S) DAILY AT DAILY AT BY MOUTH NIGHT. NIGHT. DAILY AT (TAKE (TAKE NIGHT. IMMEDIATELY IMMEDIATELY (TAKE BEFORE BEFORE IMMEDIATEL BEDTIME). BEDTIME). Y BEFORE BEDTIME). Farxiga 5 Farxiga 5 No Farxiga 5 [place] mg tablet mg tablet mg tablet [facility] TAKE ONE TAKE ONE TAKE ONE Uro logy (1) (1) (1) TABLET(S) TABLET(S) TABLET(S) BY MOUTH BY MOUTH BY MOUTH ONCE A DAY ONCE A DAY ONCE A DAY WITH WITH WITH BREAKFAST. BREAKFAST. BREAKFAST. Fiasp Fiasp No Fiasp [place] FlexTouch FlexTouch FlexTouch [facility] U-100 U-100 U-100 Urology Insulin 100 Insulin 100 Insulin unit/mL (3 unit/mL (3 100 mL) mL) unit/mL (3 subcutaneou subcutaneou mL) s pen s pen subcutaneo INJECT 24 INJECT 24 us pen UNITS WITH UNITS WITH INJECT 24 BREAKFAST, BREAKFAST, UNITS WITH 20 UNITS 20 UNITS BREAKFAST, WITH LUNCH WITH LUNCH 20 UNITS AND 20 AND 20 WITH LUNCH UNITS WITH UNITS WITH AND 20 DINNER. DINNER. UNITS WITH DINNER. finasteride finasteride No finasterid [place] 5 mg tablet 5 mg tablet e 5 mg [facility] TAKE ONE TAKE ONE tablet Urolo gy (1) (1) TAKE ONE TABLET(S) TABLET(S) (1) BY MOUTH BY MOUTH TABLET(S) ONCE A DAY. ONCE A DAY. BY MOUTH ONCE A DAY. fluticasone fluticasone No fluticason [place] propionate propionate e Met ro 50 50 propionate Urology mcg/actuati mcg/actuati 50 on nasal on nasal mcg/actuat spray,suspe spray,suspe ion nasal nsion nsion spray,susp INSTILL TWO INSTILL TWO ension (2) SPRAYS (2) SPRAYS INSTILL IN EACH IN EACH TWO (2) NOSTRIL NOSTRIL SPRAYS IN DAILY. DAILY. EACH NOSTRIL DAILY. Folbee 2.5 Folbee 2.5 No Folbee 2.5 [place] mg-25 mg-1 mg-25 mg-1 mg-25 mg-1 [facility] mg tablet mg tablet mg tablet Urology TAKE ONE TAKE ONE TAKE ONE (1) (1) (1) TABLET(S) TABLET(S) TABLET(S) BY MOUTH BY MOUTH BY MOUTH ONCE A DAY. ONCE A DAY. ONCE A DAY. furosemide furosemide No furosemide [place] 40 mg 40 mg 40 mg [facility] tablet TAKE tablet TAKE tablet Urology ONE (1) ONE (1) TAKE ONE TABLET(S) TABLET(S) (1) BY MOUTH BY MOUTH TABLET(S) TWICE A TWICE A BY MOUTH DAY. DAY. TWICE A DAY. gabapentin gabapentin No gabapentin [place] 300 mg 300 mg 300 mg [facility] capsule capsule capsule Urolog y TAKE TWO TAKE TWO TAKE TWO (2) (2) (2) CAPSULE(S) CAPSULE(S) CAPSULE(S) BY MOUTH BY MOUTH BY MOUTH TWICE A TWICE A TWICE A DAY. DAY. DAY. Humulin R Humulin R No Humulin R [place] U-500 U-500 U-500 [facility] (Conc) (Conc) (Conc) Urology Insulin Insulin Insulin Kwikpen 500 Kwikpen 500 Kwikpen unit/mL (3 unit/mL (3 500 mL) mL) unit/mL (3 subcutaneou subcutaneou mL) s INJECT 40 s INJECT 40 subcutaneo UNITS UNITS us INJECT SUBCUTANEOU SUBCUTANEOU 40 UNITS SLY THREE SLY THREE SUBCUTANEO TIMES A DAY TIMES A DAY USLY THREE (TOTAL (TOTAL TIMES A DAILY DOSE DAILY DOSE DAY (TOTAL OF 120 OF 120 DAILY DOSE UNITS). UNITS). OF 120 UNITS). Humulin R Humulin R No Humulin R [place] U-500 U-500 U-500 [facility] (Concentrat (Concentrat (Concentra Urology ed) Insulin ed) Insulin julien) 500 unit/mL 500 unit/mL Insulin subcutaneou subcutaneou 500 s soln s soln unit/mL INJECT 40 INJECT 40 subcutaneo UNITS UNITS us soln SUBCUTANEOU SUBCUTANEOU INJECT 40 SLY THREE SLY THREE UNITS TIMES A TIMES A SUBCUTANEO DAY. DAY. USLY THREE TIMES A DAY. inControl inControl No inControl [place] Pen Needle Pen Needle Pen Needle [facility] 31 gauge x 31 gauge x 31 gauge x Urology 1/4" 1/4" 1/4" inControl inControl No inControl [place] Pen Needle Pen Needle Pen Needle [facility] 32 gauge x 32 gauge x 32 gauge x Urology 5/32" USE 5/32" USE 532" USE FOUR (4) FOUR (4) FOUR (4) TIMES TIMES TIMES DAILY. DAILY. DAILY. isosorbide isosorbide No isosorbide [place] mononitrate mononitrate mononitrat [facility] ER 30 mg ER 30 mg e ER 30 mg U rology tablet,exte tablet,exte tablet,ext nded nded ended release 24 release 24 release 24 hr TAKE ONE hr TAKE ONE hr TAKE (1) (1) ONE (1) TABLET(S) TABLET(S) TABLET(S) BY MOUTH BY MOUTH BY MOUTH ONCE A DAY. ONCE A DAY. ONCE A DAY. Jardiance Jardiance No Jardiance [place] 10 mg 10 mg 10 mg [facility] tablet TAKE tablet TAKE tablet Urology ONE (1) ONE (1) TAKE ONE TABLET(S) TABLET(S) (1) BY MOUTH BY MOUTH TABLET(S) ONCE A DAY. ONCE A DAY. BY MOUTH ONCE A DAY. latanoprost latanoprost No latanopros [place] 0.005 % eye 0.005 % eye t 0.005 % [facility] drops drops eye drops Urology INSTILL ONE INSTILL ONE INSTILL (1) DROP TO (1) DROP TO ONE (1) BOTH EYES BOTH EYES DROP TO NIGHTLY. NIGHTLY. BOTH EYES NIGHTLY. levothyroxi levothyroxi No levothyrox [place] ne 150 mcg ne 150 mcg ine 150 [facility] tablet tablet mcg tablet Urolo gy levothyroxi levothyroxi No levothyrox [place] ne 175 mcg ne 175 mcg ine 175 [facility] tablet TAKE tablet TAKE mcg tablet Urology ONE-HALF ONE-HALF TAKE (/2) (2) ONE-HALF TABLET(S) TABLET(S) (2) BY MOUTH BY MOUTH TABLET(S) ONCE DAILY ONCE DAILY BY MOUTH IN THE IN THE ONCE DAILY MORNING ON MORNING ON IN THE AN EMPTY AN EMPTY MORNING ON STOMACH. STOMACH. AN EMPTY STOMACH. levothyroxi levothyroxi No levothyrox [place] ne 200 mcg ne 200 mcg ine 200 [facility] tablet TAKE tablet TAKE mcg tablet Urology ONE (1) ONE (1) TAKE ONE TABLET(S) TABLET(S) (1) BY MOUTH BY MOUTH TABLET(S) EVERY EVERY BY MOUTH MORNING ON MORNING ON EVERY AN EMPTY AN EMPTY MORNING ON STOMACH. STOMACH. AN EMPTY STOMACH. levothyroxi levothyroxi No levothyrox [place] ne 25 mcg ne 25 mcg ine 25 mcg [facility] tablet TAKE tablet TAKE tablet [facility] ONE (1) ONE (1) TAKE ONE TABLET(S) TABLET(S) (1) BY MOUTH BY MOUTH TABLET(S) EVERY EVERY BY MOUTH MORNING. MORNING. EVERY MORNING. levothyroxi levothyroxi No levothyrox [place] ne 75 mcg ne 75 mcg ine 75 mcg [facility] tablet TAKE tablet TAKE tablet [facility] TWO (2) TWO (2) TAKE TWO TABLET(S) TABLET(S) (2) BY MOUTH BY MOUTH TABLET(S) ONCE A DAY ONCE A DAY BY MOUTH BEFORE BEFORE ONCE A DAY MEAL. MEAL. BEFORE MEAL. memantine 5 memantine 5 No memantine [place] mg tablet mg tablet 5 mg [facility] TAKE ONE TAKE ONE tablet [facility] (1) (1) TAKE ONE TABLET(S) TABLET(S) (1) BY MOUTH AT BY MOUTH AT TABLET(S) BEDTIME FOR BEDTIME FOR BY MOUTH A WEEK, A WEEK, AT BEDTIME THEN TAKE THEN TAKE FOR A ONE (1) ONE (1) WEEK, THEN TABLET TABLET TAKE ONE TWICE A DAY TWICE A DAY (1) TABLET FOR MEMORY FOR MEMORY TWICE A LOSS. LOSS. DAY FOR MEMORY LOSS. methocarbam methocarbam No methocarba [place] ol 500 mg ol 500 mg mol 500 mg [facility] tablet TAKE tablet TAKE tablet [facility] ONE (1) ONE (1) TAKE ONE TABLET(S) TABLET(S) (1) BY MOUTH BY MOUTH TABLET(S) NIGHTLY NIGHTLY BY MOUTH NEEDED FOR NEEDED FOR NIGHTLY MUSCLE MUSCLE NEEDED FOR SPASMS. SPASMS. MUSCLE SPASMS. metolazone metolazone No metolazone [place] 2.5 mg 2.5 mg 2.5 mg [facility] tablet TAKE tablet TAKE tablet Urology ONE (1) ONE (1) TAKE ONE TABLET BY TABLET BY (1) TABLET MOUTH EVERY MOUTH EVERY BY MOUTH FRIDAY, FRIDAY, EVERY FRIDAY, FRIDAY, FRIDAY, AND FRIDAY. AND FRIDAY. FRIDAY, AND FRIDAY. metoprolol metoprolol No metoprolol [place] succinate succinate succinate [facility] ER 25 mg ER 25 mg ER 25 mg Uro logy tablet,exte tablet,exte tablet,ext nded nded ended release 24 release 24 release 24 hr TAKE ONE hr TAKE ONE hr TAKE (1) (1) ONE (1) TABLET(S) TABLET(S) TABLET(S) BY MOUTH BY MOUTH BY MOUTH ONCE A DAY. ONCE A DAY. ONCE A DAY. Myrbetriq Myrbetriq No 1 Q1D Myrbetriq [place] 25 mg 25 mg 25 mg [facility] tablet,exte tablet,exte tablet,ext Urology nded nded ended release release release Take 1 Take 1 Take 1 tablet tablet tablet every day every day every day by oral by oral by oral route. route. route. nystatin nystatin No nystatin [place] ston 100,000 100,000 100,000 [facility] unit/gram unit/gram unit/gram Urology topical topical topical cream APPLY cream APPLY cream TO THE TO THE APPLY TO AFFECTED AFFECTED THE AREA(S) BY AREA(S) BY AFFECTED TOPICAL TOPICAL AREA(S) BY ROUTE 2 ROUTE 2 TOPICAL TIMES PER TIMES PER ROUTE 2 DAY DAY TIMES PER DAY ondansetron ondansetron No ondansetro [place] HCl 4 mg HCl 4 mg n HCl 4 mg M etro tablet TAKE tablet TAKE tablet Urology ONE (1) ONE (1) TAKE ONE TABLET BY TABLET BY (1) TABLET MOUTH EVERY MOUTH EVERY BY MOUTH EIGHT HOURS EIGHT HOURS EVERY NEEDED NEEDED EIGHT FOR NAUSEA FOR NAUSEA HOURS OR OR NEEDED FOR VOMITING. VOMITING. NAUSEA OR VOMITING. pantoprazol pantoprazol No pantoprazo [place] e 40 mg e 40 mg le 40 mg [facility] tablet,karthik tablet,karthik tablet,del Urology yed release yed release ayed TAKE ONE TAKE ONE release (1) (1) TAKE ONE TABLET(S) TABLET(S) (1) BY MOUTH BY MOUTH TABLET(S) TWICE A TWICE A BY MOUTH DAY. DAY. TWICE A DAY. paroxetine paroxetine No paroxetine [place] 10 mg 10 mg 10 mg [facility] tablet TAKE tablet TAKE tablet Urology 1 TABLET 1 TABLET TAKE 1 (10 MG (10 MG TABLET (10 TOTAL) BY TOTAL) BY MG TOTAL) MOUTH EVERY MOUTH EVERY BY MOUTH MORNING. MORNING. EVERY MORNING. potassium potassium No potassium [place] chloride ER chloride ER chloride [facility] 10 mEq 10 mEq ER 10 mEq Urolog y capsule,ext capsule,ext capsule,ex ended ended tended release release release TAKE FOUR TAKE FOUR TAKE FOUR (4) (4) (4) CAPSULE(S) CAPSULE(S) CAPSULE(S) BY MOUTH BY MOUTH BY MOUTH ONCE A DAY. ONCE A DAY. ONCE A DAY. potassium potassium No potassium [place] chloride ER chloride ER chloride [facility] 10 mEq 10 mEq ER 10 mEq Urolog y tablet,exte tablet,exte tablet,ext nded nded ended release release release TAKE FOUR TAKE FOUR TAKE FOUR (4) (4) (4) TABLET(S) TABLET(S) TABLET(S) BY MOUTH BY MOUTH BY MOUTH ONCE A DAY. ONCE A DAY. ONCE A DAY. Prevalite 4 Prevalite 4 No Prevalite [place] gram powder gram powder 4 gram [facility] for susp in for susp in powder for Urology a packet a packet susp in a TAKE ONE TAKE ONE packet (1) (1) TAKE ONE PACKET(S) PACKET(S) (1) BY MOUTH BY MOUTH PACKET(S) DAILY DAILY BY MOUTH DIRECTED. DIRECTED. DAILY DIRECTED. Immunizations Ordered Immunization Filled Immunization Date Status Commen ts Source Name Name FLUZONE HIGH-DOSE PF 2022-03-21 Completed Meth odist 00:00:00 [facility] PFIZER >12 YR 2022-03-21 Completed [facility] COVID-19 MRNA 00:00:00 Hospital BIVALENT VACCINATION FLUZONE HIGH-DOSE PF 2022-03-21 Completed Meth odist 00:00:00 [facility] PFIZER >12 YR 2022-03-21 Completed [facility] COVID-19 MRNA 00:00:00 Hospital BIVALENT VACCINATION [facility] COVID-19 MRNA 2021-11-05 Completed [facility] VACCINATION 00:00:00 Hospital [facility] COVID-19 MRNA 2021-11-05 Completed [facility] VACCINATION 00:00:00 [facility] MODERNA COVID-19 MRNA 2021-11-05 Completed [facility] VACCINATION 00:00:00 [facility] MODERNA COVID-19 MRNA 2021-11-05 Completed [facility] VACCINATION 00:00:00 [facility] FLUZONE HIGH-DOSE PF 2021-03-28 Completed Meth odist 00:00:00 [facility] FLUZONE HIGH-DOSE PF 2021-03-28 Completed Meth odist 00:00:00 [facility] FLUZONE HIGH-DOSE PF 2021-03-28 Completed Meth odist 00:00:00 [facility] FLUZONE HIGH-DOSE PF 2021-03-28 Completed Meth odist 00:00:00 [facility] MODERNA COVID-19 MRNA 2021-02-26 Completed Met [facility] VACCINATION 00:00:00 [facility] MODERNA COVID-19 MRNA 2021-02-26 Completed [facility] VACCINATION 00:00:00 [facility] MODERNA COVID-19 MRNA 2021-02-26 Completed [facility] VACCINATION 00:00:00 [facility] MODERNA COVID-19 MRNA 2021-02-26 Completed [facility] VACCINATION 00:00:00 Hospital [facility]NA COVID-19 MRNA 2020-08-08 Completed [facility] VACCINATION 00:00:00 [facility] MODERNA COVID-19 MRNA 2020-08-08 Completed [facility] VACCINATION 00:00:00 [facility] MODERNA COVID-19 MRNA 2020-08-08 Com[facility] 2020-07-11 [facility] 2020[facility]07-11 [facility] 2020-07-11 [facility] 2020-07-11 Completed [facility] VACCINATION 00:00:00 Hospital FLUZONE HIGH-DOSE PF 2020-05-03 Completed Meth odist 00:00:00 Hospital FLUZONE HIGH-DOSE PF 2020-05-03 Completed [facility]ist 00:00:00 Hospital FLUZONE HIGH-DOSE PF 2020-05-03 Completed [facility] 00:00:00 Hospital FLUZONE HIGH-DOSE PF 2020-05-03 Completed [facility] 00:00:00 Hospital influenza, influenza, 2019-04-21 Completed [place] [facility] injectable, injectable, 00:00:00 Urology quadrivalent quadrivalent FLUZONE HIGH-DOSE PF 2019-04-15 Completed [facility] 00:00:00 Hospital FLUZONE HIGH-DOSE PF 2019-04-15 Completed [facility] odist 00:00:00 Hospital FLUZONE HIGH-DOSE PF 2019-04-15 Completed [facility] odist 00:00:00 Hospital FLUZONE HIGH-DOSE PF 2019-04-15 Completed [facility] 00:00:00 Hospital Influenza, 2018-04-23 Completed [facility] Quadrivalent 00:00:00 Hospital Influenza, 2018-04-23 Completed [facility] Quadrivalent 00:00:00 Hospital Influenza, 2018-04-23 Completed [facility] Quadrivalent 00:00:00 Hospital Influenza, 2018-04-23 Completed [facility] Quadrivalent 00:00:00 Hospital Influenza Whole 2018-04-16 Completed [facility] 00:00:00 Hospital Influenza Whole 2018-04-16 Completed [facility] 00:00:00 Hospital Influenza Whole 2018-04-16 Completed [facility] 00:00:00 Hospital Influenza Whole 2018-04-16 Completed [facility] 00:00:00 Hospital FLUZONE HIGH-DOSE PF 2017-04-05 Completed [facility] 00:00:00 Hospital FLUZONE HIGH-DOSE PF 2017-04-05 Completed [facility] od[facility] 00:00:00 Hospital FLUZONE HIGH-DOSE PF 2017-04-05 Completed [facility] odist 00:00:00 Hospital FLUZONE HIGH-DOSE PF 2017-04-05 Completed [facility] 00:00:00 Hospital Td, Unspecified 2017-03-22 Completed [facility] 00:00:00 Hospital Td, Unspecified 2017-03-22 Completed [facility] 00:00:00 Hospital Td, Unspecified 2017-03-22 Completed [facility] 00:00:00 Hospital Td, Unspecified 2017-03-22 Completed [facility] 00:00:00 Hospital Tdap 2016-10-23 Completed [facility] 00:00:00 Hospital Zoster 2016-10-23 Completed [facility] 00:00:00 Hospital Tdap 2016-10-23 Completed [facility] 00:00:00 Hospital Zoster 2016-10-23 Completed [facility] 00:00:00 Hospital Tdap 2016-10-23 Completed [facility] 00:00:00 Hospital Zoster 2016-10-23 Completed [facility] 00:00:00 Hospital Tdap 2016-10-23 Completed [facility] 00:00:00 Hospital Zoster 2016-10-23 Completed [facility] 00:00:00 Hospital Influenza Whole 2016-04-20 Completed [facility] 00:00:00 Hospital Pneumococcal 2016-04-20 Completed [facility] Conjugate 13-Valent 00:00:00 Hospi zina Influenza Whole 2016-04-20 Completed [facility] 00:00:00 Hospital Pneumococcal 2016-04-20 Completed [facility] Conjugate 13-Valent 00:00:00 Hospi zina Influenza Whole 2016-04-20 Completed [facility] 00:00:00 Hospital Pneumococcal 2016-04-20 Completed [facility] Conjugate 13-Valent 00:00:00 Hospi zina Influenza Whole 2016-04-20 Completed [facility] 00:00:00 Hospital Pneumococcal 2016-04-20 Completed [facility] Conjugate 13-Valent 00:00:00 Hospi zina Pneumococcal 2016-04-11 Completed [facility] Polysaccharide 00:00:00 Hospital Pneumococcal 2016-04-11 Completed [facility] Polysaccharide 00:00:00 Hospital Pneumococcal 2016-04-11 Completed [facility] Polysaccharide 00:00:00 Hospital pneumococcal pneumococcal 2016-04-11 Completed [facility] polysaccharide PPV23 polysaccharide PPV23 00:00:00 Urology Pneumococcal 2016-04-11 Completed [facility] Polysaccharide 00:00:00 Hospital Influenza Whole 2015-04-24 Completed [facility] 00:00:00 Hospital Influenza Whole 2015-04-24 Completed [facility] 00:00:00 Hospital Influenza Whole 2015-04-24 Completed [facility] 00:00:00 Hospital Influenza Whole 2015-04-24 Completed [facility] 00:00:00 Hospital Pneumococcal 2011-06-20 Completed [facility] Conjugate 00:00:00 Hospital Pneumococcal 2011-06-20 Completed [facility] Conjugate 00:00:00 Hospital Pneumococcal 2011-06-20 Completed [facility] Conjugate 00:00:00 Hospital Pneumococcal 2011-06-20 Completed [facility] Conjugate 00:00:00 Hospital Vital Signs Vital Name Observation Time Observation Value Comments Source Height 2022-02-11 00:00:00 71 [in_i] [facility] Urology BMI (Body Mass 2022-02-11 00:00:00 32.1 kg/m2 [place] [facility] Index) Urology Body Weight 2022-02-11 00:00:00 230 [lb_av] [facility] Urology Systolic blood 2021-10-02 19:26:00 106 mm[Hg] [facility] Diastolic blood 2021-10-02 19:26:00 66 mm[Hg] [facility] Heart rate 2021-10-02 19:26:00 72 /min [facility] Body height 2021-10-02 19:26:00 180.3 cm [facility] Body weight 2021-10-02 19:26:00 90.719 kg [facility] BMI 2021-10-02 19:26:00 27.89 kg/m2 [facility] Oxygen saturation in 2021-10-02 19:26:00 97 /min [facility] Arterial blood by [facility] Pulse oximetry Branch HEIGHT 2021-09-23 04:47:00 180 [...] h BMI 2021-01-01 16:47:00 28.73 kg/m2 [facility] Sy[facility] 2021-01-01 16:47:00 116 mm[facility]Hg[facility] Diastolic blood 2021-01-01 16:47:00 73 mm[Hg] [facility] Heart rate 2021-01-01 16:47:00 79 /[facility] Body height 2021-01-01 16:47:00 [facility] Body weight 2021-01-01 16:47:00 93[facility] [facility] BMI 2021-01-01 16:47:00 28.73 kg/m2 [facility] Systolic blood 2022-07-30 20:51:00 121 mm[Hg] [facility] pressure Diastolic blood 2022-07-30 20:51:00 59 mm[Hg] [facility] pressure Heart rate 2022-07-30 20:51:00 71 /min [facility] Body height 2022-07-30 20:51:00 180.3 cm [facility] Body weight 2022-07-30 20:51:00 99.791 kg [facility] BMI 2022-07-30 20:51:00 30.68 kg/m2 [facility] Oxygen saturation in 2022-07-30 20:51:00 97 /min [facility] Arterial blood by Pulse oximetry Body temperature 2022-06-25 17:42:24 36.44 Angela [facility] Respiratory rate 2022-06-25 17:42:24 18 /min [facility] Systolic blood 2022-03-21 16:45:00 98 mm[Hg] [facility] pressure Diastolic blood 2022-03-21 16:45:00 54 mm[Hg] [facility] pressure Heart rate 2022-03-21 16:45:00 65 /min [facility] Body height 2022-03-21 16:45:00 180.3 cm [facility] Oxygen saturation in 2022-03-21 16:45:00 97 /min [facility] Arterial blood by Pulse oximetry Respiratory rate 2022-03-12 20:25:00 16 /min [facility] Body weight 2022-03-12 20:25:00 83.462 kg [facility] BMI 2022-03-12 20:25:00 25.66 kg/m2 [facility] Systolic blood 2021-11-20 20:59:00 122 mm[Hg] [facility] pressure Diastolic blood 2021-11-20 20:59:00 75 mm[Hg] [facility] pressure Heart rate 2021-11-20 20:59:00 84 /min [facility] Body weight 2021-11-20 20:59:00 102.059 kg [facility] BMI 2021-11-20 20:59:00 31.38 kg/m2 [facility] Oxygen saturation in 2021-11-20 20:59:00 94 /min [facility] Arterial blood by Pulse oximetry Heart rate 2021-09-28 09:43:00 72 /min [facility] Respiratory rate 2021-09-28 09:43:00 18 /min [facility] Oxygen saturation in 2021-09-28 09:43:00 92 /min [facility] Arterial blood by Medical Ce [facility]ter Pulse oximetry Systolic blood 2021-09-28 08:12:00 145 mm[Hg] [facility] Diastolic blood 2021-09-28 08:12:00 66 mm[Hg] [facility] Body temperature 2021-09-28 08:12:00 36.44 Angela [facility] Body height 2021-09-23 04:47:00 180 cm [facility] Body weight 2021-09-23 04:31:00 92.08 kg [facility] BMI 2021-09-23 04:31:00 28.42 kg/m2 [facility] Body temperature 2021-09-18 20:31:00 36.67 Angela [facility] Body height 2021-09-18 20:31:00 180.3 cm [facility] Respiratory rate 2021-07-30 21:08:00 16 /min [facility] Procedures Procedure Date / Time Performing Clinician Source Performed ASSIGNMENT OF BENEFITS 2022-07-31 20:45:38 Doctor Unassigned, No [facility] B NATRIURETIC PEPTIDE 2022-07-23 21:17:00 Marcia Luz [facility] THYROID STIMULATING 2022-07-23 21:17:00 Marcia Luz [facility] HORMONE CBC WITH PLATELET AND 2022-07-23 21:17:00 Marcia Luz [facility] DIFFERENTIAL COMPREHENSIVE METABOLIC 2022-07-23 21:17:00 Mar[facility] Luz [facility] PANEL POC GLUCOSE 2022-06-25 19:01:00 [facility] POC GLUCOSE 2022-06-25 15:27:00 [facility] POC GLUCOSE 2022-06-25 10:34:00 [facility] CBC HEMOGRAM 2022-06-25 10:33:00 [facility] BASIC METABOLIC PANEL 2022-06-25 10:33:00 Sherif Cuba [facility] ESTIMATED GFR 2022-06-25 10:33:00 [facility] ESTIMATED GFR 2022-06-25 10:18:00 Diana Solomon [facility] POC GLUCOSE 2022-06-25 03:30:00 Sherif Cuba [facility] POC GLUCOSE 2022-06-25 03:09:00 Sherif Cuba [facility] POC GLUCOSE 2022-06-25 03:07:00 Sherif Cuba [facility] POC GLUCOSE 2022-06-24 23:41:00 Sherif Cuba [facility] TTE COMPLETE, W CONTRAST, 2022-06-24 22:00:00 Dominic Urena [facility] W DOPPLER ([id number]) POC GLUCOSE 2022-06-24 19:00:00 Sherif Cuba [facility] POC GLUCOSE 2022-06-24 14:55:00 Sherif Cuba [facility] CBC HEMOGRAM 2022-06-24 10:05:00 Sherif Cuba [facility] BASIC METABOLIC PANEL 2022-06-24 10:05:00 Bereket [facility] PHOSPHORUS LEVEL 2022-06-24 10:05:00 Diana Solomon [facility] B NATRIURETIC PEPTIDE 2022-06-24 10:05:00 Diana Solomon [facility] ESTIMATED GFR 2022-06-24 10:05:00 Sherif Cuba [facility] POC GLUCOSE 2022-06-24 02:25:00 Sherif Cuba [facility] POC GLUCOSE 2022-06-23 23:44:00 Sherif Cuba [facility] CLOSTRIDIUM DIFFICILE 2022-06-23 22:12:00 Bereket [facility] TOXIN GENE (QUALITATIVE REAL-TIME PCR) POC GLUCOSE 2022-06-23 19:03:00 Sherif Cuba [facility] POC GLUCOSE 2022-06-23 14:36:00 Sherif Cuba [facility] CBC HEMOGRAM 2022-06-23 11:28:00 Sherif Cuba [facility] BASIC METABOLIC PANEL 2022-06-23 11:28:00 Bereket [facility] MAGNESIUM LEVEL 2022-06-23 11:28:00 Sherif Cuba [facility] ESTIMATED GFR 2022-06-23 11:28:00 Sherif Cuba [facility] ESTIMATED GFR 2022-06-23 11:24:00 Diana Solomon [facility] POC GLUCOSE 2022-06-23 03:46:00 Sherif Cuba [facility] POC GLUCOSE 2022-06-23 00:28:00 Sherif Cuba [facility] POC GLUCOSE 2022-06-22 19:03:00 Sherif Cuba [facility] POC GLUCOSE 2022-06-22 15:02:00 Sherif Cuba [facility] CBC HEMOGRAM 2022-06-22 12:40:00 Sherif Cuba [facility] BASIC METABOLIC PANEL 2022-06-22 12:40:00 Bereket [facility] B NATRIURETIC PEPTIDE 2022-06-22 12:40:00 Bereket [facility] MAGNESIUM LEVEL 2022-06-22 12:40:00 Diana Solomon spital PHOSPHORUS LEVEL 2022-06-22 12:40:00 Diana Solomon ospital ESTIMATED GFR 2022-06-22 12:40:00 [facility]re[facility] TROPONIN T 2022-06-22 04:15:00 Bereket [facility] SODIUM LEVEL, URINE, 2022-06-22 04:15:00 [facility] CREATININE LEVEL, URINE, 2022-06-22 04:15:00 Diana Solomon [facility] RANDOM UREA NITROGEN, URINE, 2022-06-22 04:15:00 Diana Solomon [facility] RANDOM POC GLUCOSE 2022-06-22 04:02:00 Unique Cubaeen [facility] POC GLUCOSE 2022-06-22 02:02:00 Bereket Sherif [facility] ID CRITICAL CARE 2022-06-22 01:16:58 [facility]-74 MIN ECG ED PRELIMINARY 2022-06-22 01:16:58 Tu, [facility] INTERPRETATION URINE CULTURE 2022-06-22 00:36:00 Tu, GiniKofi [facility] COVID-19 QUALITATIVE 2022-06-22 00:10:00 Tu, [facility] TROPONIN T 2022-06-22 00:10:00 Tu, [facility] URINALYSIS SCREEN AND 2022-06-21 22:49:00 [facility] WITH REFLEX TO CULTURE ECG 12-LEAD 2022-06-21 21:07:46 Tu, [facility] CBC WITH PLATELET AND 2022-06-21 21:04:00 Tu, [facility] DIFFERENTIAL PROTHROMBIN TIME WITH INR 2022-06-21 21:04:00 Tu, [facility] PARTIAL THROMBOPLASTIN 2022-06-21 21:04:00 Tu, [facility] TIME (PTT) COMPREHENSIVE METABOLIC 2022-06-21 21:04:00 Tu, [facility] PANEL TROPONIN T 2022-06-21 21:04:00 Tu, [facility] B NATRIURETIC PEPTIDE 2022-06-21 21:04:00 Tu, [facility] ESTIMATED GFR 2022-06-21 21:04:00 Tu, [facility] XR CHEST 1 VW PORTABLE 2022-06-21 20:57:36 Tu, [facility] POC GLUCOSE 2022-06-13 02:49:00 JayJanes lopez ospital Oscar POC GLUCOSE 2022-06-12 18:39:00 JayJanes vasquez ospital [place] POC GLUCOSE 2022-06-12 15:17:00 JayJanes lopez ospital [place] POC GLUCOSE 2022-06-12 13:34:00 JayJanes lopez ospital Oscar CBC WITH PLATELET AND 2022-06-12 10:13:00 Be Curran [facility] DIFFERENTIAL Vincent BASIC METABOLIC PANEL 2022-06-12 10:13:00 Be Curran [facility] Vincent ESTIMATED GFR 2022-06-12 10:13:00 Be Curran Ho spital [place] MAGNESIUM LEVEL 2022-06-12 10:13:00 Be Curran Ho spital [place] POC GLUCOSE 2022-06-12 02:59:00 JayJanes lopez ospital Oscar POC GLUCOSE 2022-06-11 22:58:00 JayJanes lopez ospital Oscar POC GLUCOSE 2022-06-11 17:58:00 JayJanes lopez ospital Oscar POC GLUCOSE 2022-06-11 14:22:00 Janes Thompson osapril Oscar CBC WITH PLATELET AND 2022-06-11 10:35:00 [facility] [place] BASIC METABOLIC PANEL 2022-06-11 10:35:00 [facility] NATRI[facility] PEPTIDE 2022-06-11 10:35:00 [facility] ESTIMATED GFR 2022-06-11 10:35:00 Be Curran spital Vincent POC GLUCOSE 2022-06-11 03:40:00 Janes Thompson ospital [place] POC GLUCOSE 2022-06-10 23:51:00 Janes Thompson ospital Oscar CV DEFIBRILLATOR 2022-06-10 18:47:41 Be Curran ospital PROGRAMMING ML Vincent POC GLUCOSE 2022-06-10 13:48:00 Fernanda Merino spital Christopher MAGNESIUM LEVEL 2022-06-10 10:33:00 Diana Solomon spital PHOSPHORUS LEVEL 2022-06-10 10:33:00 Diana Solomon ospital CBC WITH PLATELET AND 2022-06-10 10:33:00 Fernanda Merino [facility] DIFFERENTIAL Christopher COMPREHENSIVE METABOLIC 2022-06-10 10:33:00 Fernanda Merino [facility] PANEL Christopher B NATRIURETIC PEPTIDE 2022-06-10 10:33:00 Be Curran [facility] Vincent BILIRUBIN DIRECT 2022-06-10 10:33:00 Be Curran ospital Vincent ESTIMATED GFR 2022-06-10 10:33:00 Fernanda Merino spital Christopher POC GLUCOSE 2022-06-10 03:58:00 Fernanda Merino spital Christopher POC GLUCOSE 2022-06-10 00:19:00 Fernanda Merino Ho spital [place] POC GLUCOSE 2022-06-09 19:26:00 Fernanda Merino Ho spital Christopher CT CHEST WO CONTRAST 2022-06-09 18:00:00 [facility] P[facility]SE 2022-06-09 16:01:00 Fernanda Merino spital Christopher MAGNESIUM LEVEL 2022-06-09 10:52:00 Diana Solomon Ho spital PHOSPHORUS LEVEL 2022-06-09 10:52:00 Diana Solomon H ospital CBC WITH PLATELET AND 2022-06-09 10:52:00 [facility] DIFFERENTIAL Christopher COMPREHENSIVE METABOLIC 2022-06-09 10:52:00 [facility] Christoph B NATRIURETIC PEPTIDE 2022-06-09 10:52:00 Be Curran [facility] Vincent ESTIMATED GFR 2022-06-09 10:52:00 Fernanda Merino spital Christopher PROCALCITONIN 2022-06-09 10:52:00 Fernanda Merino spital Christopher XR CHEST 1 VW PORTABLE 2022-06-09 04:38[facility] 2022-06-09 03:31:00 Fernanda Merino Ho spital Christopher POC GLUCOSE 2022-06-08 23:21:00 Fernanda Merino Ho spital Christopher POC GLUCOSE 2022-06-08 18:27:00 WilberFernanda gill Ho spital Christopher POC GLUCOSE 2022-06-08 14:41:00 Fernanda Merino spital Christopher MAGNESIUM LEVEL 2022-06-08 09:35:00 Diana Solomon Ho spital PHOSPHORUS LEVEL 2022-06-08 09:35:00 Diana Solomon H [facility]spital CBC WITH PLATELET AND 2022-06-08 09:35:00 [facility]oph COMPREHENSIVE METABOLIC 2022-06-08 09:35:[facility] Christopher ESTIMATED GFR 2022-06-08 09:35:00 Fernanda Merino spital Christopher URINE CULTURE 2022-06-08 02:24:00 Diana Solomon Ho spital POC GLUCOSE 2022-06-08 00:34:00 WilberFernanda gill Ho spital Christopher URINALYSIS SCREEN AND 2022-06-07 23:35:00 Diana Solomon [facility] MICROSCOPY, WITH REFLEX TO CULTURE POTASSIUM LEVEL 2022-06-07 21:25:00 Fernanda Merino spital Christopher POC GLUCOSE 2022-06-07 18:37:00 [facility] POC [facility]SE 2022-06-07 16:07:00 Fernanda Merino spital Christopher TTE COMPLETE, W CONTRAST, 2022-06-07 14:45:00 Kelin [facility] W DOPPLER ([id number]) TOTAL IRON BINDING 2022-06-07 11:09:00 Diana Solomon [facility] CAPACITY FERRITIN LEVEL 2022-06-07 11:09:00 [facility] MAGNESI[facility] LEV[facility] 2022-06-07 11:09:00 [facility] PHOSPHORUS LEVEL 2022-06-07 11:09:00 Diaan Solomon ospital CBC WITH PLATELET AND 2022-06-07 11:09:00 Fernanda Merino [facility] DIFFERENTIAL [place] COMPREHENSIVE METABOLIC 2022-06-07 11:09:00 Fernanda Merino [facility] PANEL [place] ESTIMATED GFR 2022-06-07 11:09:00 Fernanda Merino [facility] Christoph POC GLUCOSE 2022-06-07 06:21:00 Fernanda Merino [facility] Christopher SODIUM LEVEL, URINE, 2022-06-07 00:46:[address] [facility] RANDOM UREA NITROGEN, URINE, 2022-06-07 00:46:00 Diana Solomon [facility] RANDOM CREATININE LEVEL, URINE, 2022-06-07 00:46:00 Diana Solomon [facility] RANDOM POC GLUCOSE 2022-06-07 00:40:00 Fernanda Merino [facility] Christmarilee TROPONIN T 2022-06-06 16:49:00 Fernanda Merino spital Christopher POC GLUCOSE 2022-06-06 14:54:00 Fernanda Merino spital Christopher CBC WITH PLATELET AND 2022-06-06 09:57:00 [facility] DIFFERENTIAL PROTHROMBIN TIME WITH INR 2022-06-06 09:57:00 Laura Tolliver [facility] COMPREHENSIVE METABOLIC 2022-06-06 09:57:00 [facility] PANEL MAGNESIUM LEVEL 2022-06-06 09:57:00 Laura Tolliver spital ESTIMATED GFR 2022-06-06 09:57:00 Laura Tolliver spital ANTI XA APIXABAN 2022-06-06 09:57:00 Sharee gretta [facility] ospital URINE CULTURE 2022-06-06 07:02:00 [facility] URINALYSIS SCREEN AND 2022-06-06 05:32:00 [facility] MICROSCOPY, WITH REFLEX TO CULTURE ECG 12-LEAD 2022-06-06 03:36:13 [facility] COVID-19 QUALITATIVE 2022-06-06 03:01:00 [facility] RT-PCR HEMOGLOBIN A1C 2022-06-06 03:01:00 Laura Tolliver spital MAGNESIUM LEVEL 2022-06-06 03:01:00 Laura Tolliver spital PHOSPHORUS LEVEL 2022-06-06 03:01:00 Laura Tolliver ospital THYROID STIMULATING 2022-06-06 03:01:00 Sharee [facility] HORMONE LIPID PANEL 2022-06-06 03:01:00 Laura Tolliver spital PROCALCITONIN 2022-06-06 03:01:00 Laura Tolliver spital CREATINE KINASE, TOTAL 2022-06-06 03:01:00 [facility] ([facility] CT HEAD WO CONTRAST 2022-06-06 02:03:00 [facility] ECG ED PRELIMINARY 2022-06-06 01:27:53 [facility] XR CHEST 1 VW PORTABLE 2022-06-06 00:09:00 [facility] CBC WITH PLATELET AND 2022-06-05 22:32:00 [facility] DIFFERENTIAL COMPREHENSIVE METABOLIC 2022-06-05 22:32:00 [facility] PANEL ESTIMATED GFR 2022-06-05 22:32:00 [facility] TROPONIN T 2022-06-05 22:32:00 [facility] BASIC METABOLIC PANEL 2022-05-28 20:44:00 [facility] THYROID STIM[facility]ATING 2022-05-28 20:44:00 [facility] H[facility] POC GLUCOSE 2022-04-10 17:14:00 Fernanda Merino spital Christopher ECG 12-LEAD 2022-04-10 16:34:55 [facility] 2022-04-10 12:46:00 Fernanda Merino spital Christopher PHOSPHORUS LEVEL 2022-04-10 10:30:00 Yoni [facility] HEMOGRAM 2022-04-10 10:30:00 [facility] MAGNESIUM LEVEL 2022-04-10 10:30:00 [facility] BASIC METABOLIC PANEL 2022-04-10 10:30:00 Herminia Hassan [facility] ESTIMATED GFR 2022-04-10 10:30:00 [facility] P[facility]SE 2022-04-10 02:29:00 Fernanda Merino spital Christopher POC GLUCOSE 2022-04-09 23:20:00 Fernanda Merino spital Christopher POC GLUCOSE 2022-04-09 17:50:00 Fernanda Merino spital Christopher POC GLUCOSE 2022-04-09 14:16:00 Fernanda Merino Ho spital Christopher POC GLUCOSE 2022-04-09 13:32:00 Fernanda Merino BASIC METABOLIC PANEL 2022-04-09 10:41:00 [facility] CBC WITH PLATELET AND 2022-04-09 10:41:00 [facility] DIFFERENTIAL MAGNESIUM LEVEL 2022-04-09 10:41:00 [facility] PHOSPHORUS LEVEL 2022-04-09 10:41:[address] [facility] B NATRIURETIC PEPTIDE 2022-04-09 10:41:00 [facility] Christopher ESTIMATED GFR 2022-04-09 10:41:00 Sonya [facility] POC GLUCOSE 2022-04-09 01:22:00 Fernanda [facility] Christopher POC GLUCOSE 2022-04-08 23:07:00 [facility] HEPAT[facility]IS B SURFACE 2022-04-08 18:45:00 [facility] ANTIGEN HIV 1/2 ANTIGEN/ANTIBODY, 2022-04-08 18:45:00 [facility] FOURTH GENERATION, WITH REFLEXES HEPATITIS C ANTIBODY 2022-04-08 18:45:00 [facility] POC GLUCOSE 2022-04-08 17:18:00 [facility] 2022-04-08 12:36:00 [facility] Johan URINE CULTURE 2022-04-08 10:09:00 [facility] Johan URINALYSIS SCREEN AND 2022-04-08 07:15:00 [facility] MICROSCOPY, WITH REFLEX Johan TO CULTURE CBC WITH PLATELET AND 2022-04-08 05:18:00 [facility] DIFFERENTIAL BASIC METABOLIC PANEL 2022-04-08 05:17:00 [facility] MAGNESIUM LEVEL 2022-04-08 05:17:00 [facility] PHOSPHORUS LEVEL 2022-04-08 05:17:00 [facility] ESTIMATED GFR 2022-04-08 05:17:00 [facility] POC GLUCOSE 2022-04-08 02:04:00 [facility] Johan POC GLUCOSE 2022-04-07 22:55:00 [facility] 2022-04-07 16:57:00 [facility] 2022-04-07 12:36:00 [facility] Johan BASIC METABOLIC PANEL 2022-04-07 09:57:00 [facility] CBC WITH PLATELET AND 2022-04-07 09:57:00 [facility] DIFFERENTIAL MAGNESIUM LEVEL 2022-04-07 09:57:00 [facility] PHOSPHORUS LEVEL 2022-04-07 09:57:00 [facility] ESTIMATED GFR 2022-04-07 09:57:00 [facility] POC GLUCOSE 2022-04-07 02:15:00 [facility] POC [facility]UCOSE 2022-04-06 23:27:00 [facility] Johan URINALYSIS SCREEN AND 2022-04-06 21:59:00 Diana Solomon [facility] MICROSCOPY, WITH REFLEX TO CULTURE POC GLUCOSE 2022-04-06 17:26:00 [facility] US RENAL 2022-04-06 14:24:00 Diana Solomon [facility] Ho spital POC GLUCOSE 2022-04-06 13:34:00 [facility] URINALYSIS, AUTOMATED 2022-04-06 11:21:00 Diana Solomon [facility] WITH MICROSCOPY SODIUM LEVEL, URINE, 2022-04-06 11:21:[address] [facility] RANDOM CREATININE LEVEL, URINE, 2022-04-06 11:21:00 Diana Solomon [facility] RANDOM BASIC METABOLIC PANEL 2022-04-06 11:11:00 [facility] CBC WITH PLATELET AND 2022-04-06 11:11:00 [facility] DIFFERENTIAL MAGNESIUM LEVEL 2022-04-06 11:11:00 [facility] PHOSPHORUS LEVEL 2022-04-06 11:11:00 [facility] TOTAL IRON BINDING 2022-04-06 11:11:00 Diana Solomon [facility] CAPACITY FERRITIN LEVEL 2022-04-06 11:11:00 Diana Solomon spital URIC ACID LEVEL 2022-04-06 11:11:00 [facility] PARATHYROID HORMONE 2022-04-06 11:11:00 Diana Solomon [facility] VITAMIN D 25 HYDROXY 2022-04-06 11:11:[address] [facility] LEVEL IONIZED CALCIUM 2022-04-06 11:11:00 Diana Solomon spital ESTIMATED GFR 2022-04-06 11:11:00 [facility] WITH CREATININE 2022-04-06 05:33:00 Diana Solomon [facility] AND RATIO, RANDOM URINE POC GLUCOSE 2022-04-06 02:34:00 Rogerio, [facility] POC GLUCOSE 2022-04-05 23:48:00 Beatty, [facility] POC GLUCOSE 2022-04-05 16:47:00 Beatty, [facility] TTE COMPLETE, W CONTRAST, 2022-04-05 14:00:00 Rosa Page [facility] W DOPPLER ([id number]) Jessika POC GLUCOSE 2022-04-05 13:24:00 Beatty, [facility] PHOSPHORUS LEVEL 2022-04-05 10:28:00 Beatty, [facility] BASIC METABOLIC PANEL 2022-04-05 10:28:00 [facility] CBC WITH PLATELET AND 2022-04-05 10:28:00 [facility] DIFFERENTIAL MAGNESIUM LEVEL 2022-04-05 10:28:00 [facility] ESTIMATED GFR 2022-04-05 10:28:00 [facility] POC GLUCOSE 2022-04-05 00:38:00 [facility] BASIC METABOLIC PANEL 2022-04-04 20:49:00 [facility] ESTIMATED GFR 2022-04-04 20:49:00 [facility] POC GLUCOSE 2022-04-04 18:35:00 [facility] CV CARDIAC PET STRESS 2022-04-04 16:49:52 Rosa Page [facility] TEST [place] CV CARDIAC PET MYOCARDIAL 2022-04-04 16:49:52 Rosa Page [facility] PERFUSION IMAGING [place] POC GLUCOSE 2022-04-04 12:37:00 Joe, Steve Phat [facility] osp[facility] CBC WITH PLATELET AND 2022-04-04 07:45:00 [facility] DIFFERENTIAL BASIC METABOLIC PANEL 2022-04-04 07:45:00 Laura, [facility] MAGNESIUM LEVEL 2022-04-04 07:45:00 Laura, Steve Phat [facility] o[facility] B NATRIURETIC PEPTIDE 2022-04-04 07:45:00 Laura, [facility] TROPONIN T 2022-04-04 07:45:00 Laura, [facility] THYROID STIMULATING 2022-04-04 07:45:00 [facility] HORMONE T4, FREE 2022-04-04 07:45:00 Laura, Steve Phat [facility] HEMOGLOBIN A1C 2022-04-04 07:45:00 Laura, Steve Phat [facility] LIPID PANEL 2022-04-04 07:45:00 Laura, Steve Phat [facility] PHOSPHORUS LEVEL 2022-04-04 07:45:00 Laura, [facility] ESTIMATED GFR 2022-04-04 07:45:00 [facility] H ospital COVID-19 QUALITATIVE 2022-04-04 05:18:00 [facility] RT-PCR TROPONIN T 2022-04-04 05:18:00 [facility] TROPONIN T 2022-04-04 02:38:00 [facility] XR CHEST 1 VW PORTABLE 2022-04-04 01:37:07 [facility] ID CRITICAL CARE 2022-04-04 00:53:22 [facility] ILL/INJURED PATIENT INIT 30-74 MIN ECG ED PRELIMINARY 2022-04-04 00:53:22 [facility] INTERPRETATION CBC WITH PLATELET AND 2022-04-03 23:28:00 [facility] DIFFERENTIAL COMPREHENSIVE METABOLIC 2022-04-03 23:28:00 [facility] PANEL TROPONIN T 2022-04-03 23:28:00 [facility] B NATRIURETIC PEPTIDE 2022-04-03 23:28:00 [facility] ESTIMATED GFR 2022-04-03 23:28:00 [facility]ul [facility] THYROID STIMULATING 2022-03-21 17:33:00 [facility] HORMONE T4, FREE 2022-03-21 17:33:00 [facility] BASIC METABOLIC PANEL 2022-03-21 17:33:00 [facility] CBC WITH PLATELET AND 2022-03-21 17:33:00 SukhMarcia [facility] DIFFERENTIAL ECG 12-LEAD 2022-03-12 20:36:28 Coby Doan Ho spital ECG 12-LEAD 2022-03-12 20:36:28 Coby Doan spital BASIC METABOLIC PANEL 2022-02-21 20:14:00 Marcia Luz [facility] BASIC METABOLIC PANEL 2022-01-29 17:16:00 Marcia Luz [facility] ECG 12-LEAD 2021-11-20 21:15:15 Coby Doan spital THYROID STIMULATING 2021-11-05 17:37:00 Marcia Luz [facility] HORMONE T4, FREE 2021-11-05 17:37:00 Marcia Luz [facility] URIC ACID LEVEL 2021-11-05 17:37:00 Marcia Luz [facility] BASIC METABOLIC PANEL 2021-11-05 17:37:00 Marcia Luz [facility] CBC WITH PLATELET AND 2021-11-05 17:37:00 Marcia Luz [facility] DIFFERENTIAL POCT-GLUCOSE METER 2021-09-28 04:36:00 Jose [facility] CBC W/PLT COUNT & AUTO 2021-09-28 04:31:00 Jose [facility] DIFFERENTIAL [facility] BASIC METABOLIC PANEL (7) 2021-09-28 04:31:00 Garrett Garcia [facility] MAGNESIUM 2021-09-28 04:31:00 Jose [facility] CBC W/PLT COUNT & AUTO 2021-09-28 04:31:00 Jose [facility] DIFFERENTIAL [facility] POCT-GLUCOSE METER 2021-09-27 22:49:00 Jose [facility] POCT-GLUCOSE METER 2021-09-27 15:09:00 Jose [facility] POCT-GLUCOSE METER 2021-09-27 11:40:00 Jose [facility] POCT-GLUCOSE METER 2021-09-27 06:36:00 Jose [facility] CBC W/PLT COUNT & AUTO 2021-09-27 04:36:00 Jose [facility] BASIC METABOLIC PANEL (7) 2021-09-27 04:36:00 Serenalaine Garrett [facility] CBC W/PLT COUNT & AUTO 2021-09-27 04:36:00 Serenalaine [facility] POCT-GLUCOSE METER 2021-09-26 21:35:00 Jose [facility] POCT-GLUCOSE METER 2021-09-26 17:00:00 Jose [facility] POCT-GLUCOSE METER 2021-09-26 10:58:00 Jose [facility] CBC W/PLT COUNT & AUTO 2021-09-26 08:57:00 Serenalaine [facility] BASIC METABOLIC PANEL (7) 2021-09-26 08:57:00 Serenalaine Garrett [facility] MAGNESIUM 2021-09-26 08:57:00 Jose [facility] CBC W/PLT COUNT & AUTO 2021-09-26 08:57:00 Jose [facility] POCT-GLUCOSE METER 2021-09-26 05:58:00 [facility] PO[facility]SE METER 2021-09-25 21:37:00 [facility] POCT-GLUCOSE METER 2021-09-25 17:19:00 [facility] POCT-GLUCOSE METER 2021-09-25 11:41:00 [facility] BASIC METABOLIC PANEL (7) 2021-09-25 05:54:00 Roxane [facility] HEPATIC FUNCTION PANEL 2021-09-25 05:54:00 Roxane [facility] CBC W/PLT COUNT & AUTO 2021-09-25 05:54:00 Betts [facility] CBC W/PLT COUNT & AUTO 2021-09-25 05:54:00 Roxane [facility] POCT-GLUCOSE METER 2021-09-25 05:16:00 [facility] POCT-GLUCOSE METER 2021-09-24 16:46:00 [facility] REPORT OF PROCEDURE - 2021-09-24 12:04:52 Crissy Singleton [facility] POCT-GLUCOSE METER 2021-09-24 11:27:00 [facility] BASIC METABOLIC PANEL (7) 2021-09-24 05:07:00 Betts [facility] HEPATIC FUNCTION PANEL 2021-09-24 05:07:00 [facility] CBC W/PLT COUNT & AUTO 2021-09-24 05:07:00 [facility] CBC W/PLT COUNT & AUTO 2021-09-24 05:07:00 Latoya [facility] HEMOGLOBIN AND HEMATOCRIT 2021-09-23 22:27:00 Latoya [facility] POCT-GLUCOSE METER 2021-09-23 20:58:[facility] HEMO[facility]IN AND HEMATOCRIT 2021-09-23 17:29:00 Latoya [facility] TROPONIN I 2021-09-23 17:29:00 Latoya [facility] US RENAL COMPLETE 2021-09-23 17:01:00 Latoya [facility] POCT-GLUCOSE METER 2021-09-23 15:54:00 [facility] POCT-GLUCOSE METER 2021-09-23 11:21:00 [facility] 2D ECHO W/ DOPPLER 2021-09-23 11:07:49 Rajan Klein [facility] [place] HEMOGLOBIN AND HEMATOCRIT 2021-09-23 10:25:00 Rajan Klein [facility] TROPONIN I 2021-09-23 10:25:00 Latoya [facility] URINE CULTURE 2021-09-23 06:43:00 Severino [facility] URINALYSIS W/ REFLEX 2021-09-23 06:43:00 [facility] BLOOD CULTURE 2021-09-23 06:42:00 Severino [facility] ECG 12-LEAD 2021-09-23 05:48:37 Latoya [facility] ECG 12-LEAD 2021-09-23 05:48:37 Latoya [facility] ABORH, MANUAL 2021-09-23 05:34:00 Betty Alexander [facility] TROPONIN I 2021-09-23 05:34:00 Latoya [facility] XR CHEST 1 VIEW PORTABLE 2021-09-23 04:05:00 Rajan Klein [facility] TYPE AND SCREEN, 2021-09-23 03:51:00 [facility]an [facility] CBC W/PLT COUNT & AUTO 2021-09-23 03:51:00 Latoya [facility] DIFFERENTIAL Center BASIC METABOLIC PANEL (7) 2021-09-23 03:51:00 Cindy Betts [facility] HEPATIC FUNCTION PANEL 2021-09-23 03:51:00 Cindy Betts [facility] MAGNESIUM 2021-09-23 03:51:00 [facility] PHOSPHORUS 2021-09-23 03:51:00 Latoya [place] [facility] PROTHROMBIN TIME/INR 2021-09-23 03:51:00 Rajan Klein [facility] CBC W/PLT COUNT & AUTO 2021-09-23 03:51:00 BettsCindy owusu [facility] HEMOGLOBIN A1C 2021-09-23 03:51:00 Rajan Klein [facility] POCT-GLUCOSE METER 2021-09-23 03:33:00 Rajan Klein [facility] POCT-GLUCOSE METER 2021-09-23 03:08:00 [facility] POC GLUCOSE 2021-07-04 18:50:00 Vickie [facility] POC GLUCOSE 2021-07-04 14:55:00 Vickie [facility] THYROID STIMULATING 2021-07-04 10:39:00 Saranya [facility] HORMONE T4, FREE 2021-07-04 10:39:00 Vel Saranya [facility] CBC HEMOGRAM 2021-07-04 10:39:00 Vickie [facility] BASIC METABOLIC PANEL 2021-07-04 10:39:00 Saranya Crowder [facility] ESTIMATED GFR 2021-07-04 10:39:00 Vel Saranya [facility] COVID-19 QUALITATIVE 2021-07-04 10:17:00 Saranya Crowder [facility] RT-PCR POC GLUCOSE 2021-07-04 04:18:00 Albert [facility] POC GLUCOSE 2021-07-04 00:15:00 Vickie [facility] POC GLUCOSE 2021-07-03 19:20:00 Vickie [facility] POC GLUCOSE 2021-07-03 14:29:00 Vickie [facility] CBC HEMOGRAM 2021-07-03 11:16:00 Vickie [facility] BASIC METABOLIC PANEL 2021-07-03 11:16:00 armindaSaranya [facility] ESTIMATED GFR 2021-07-03 11:16:00 Agmiguel [facility] POC GLUCOSE 2021-07-03 02:49:00 Vickie [facility] POC GLUCOSE 2021-07-03 00:31:00 Vickie [facility] CT THORACIC SPINE WO 2021-07-03 00:28:19 [facility] CERVICAL SPINE WO 2021-07-03 00:27:44 Aguglaura Saranya [facility] CONTRAST POC GLUCOSE 2021-07-02 18:21:00 Vickie [facility] POC GLUCOSE 2021-07-02 14:24:00 Vickie [facility] POC GLUCOSE 2021-07-02 03:06:00 Vikcie [facility] POC GLUCOSE 2021-07-01 23:34:00 Terri, Shivam [facility] POC GLUCOSE 2021-07-01 18:14:00 Terri, Shivam [facility] POC GLUCOSE 2021-07-01 14:13:00 Terri, Shivam [facility] POC GLUCOSE 2021-07-01 03:14:00 Terri, Shivam [facility] POC GLUCOSE 2021-07-01 00:12:00 Terri, Emmyar [facility] sp[facility] POC GLUCOSE 2021-06-30 18:50:00 Terri, Shivam [facility] POC GLUCOSE 2021-06-30 13:55:00 Terri, Shivam [facility] POC GLUCOSE 2021-06-30 03:12:00 Terri, Shivam [facility] POC GLUCOSE 2021-06-29 21:53:00 Terri, Shivam [facility] spital BASIC METABOLIC PANEL 2021-06-29 20:34:00 [facility] MAGNESIUM LEVEL 2021-06-29 20:34:00 [facility] ESTIMATED GFR 2021-06-29 20:34:00 [facility] POC GLUCOSE 2021-06-29 14:26:00 Terri, Shivam [facility] sp[facility] POC GLUCOSE 2021-06-29 03:34:00 Terri, Shivam [facility] sp[facility] POC GLUCOSE 2021-06-28 23:14:00 Shivam Murray spital POC GLUCOSE 2021-06-28 18:31:00 TerriShivam Ho spital POC GLUCOSE 2021-06-28 15:00:00 TerriShivam spital COVID-19 ANTI-SPIKE IGG 2021-06-28 10:31:00 [facility] ANTIBODY TITER COVID-19 SEROLOGY PATIENT 2021-06-28 10:31:00 Albert [facility] SURVEILLANCE BASIC METABOLIC PANEL 2021-06-28 10:31:00 Vickie [facility] B NATRIURETIC PEPTIDE 2021-06-28 10:31:00 [facility] COMPLETE BLD COUNT 2021-06-28 10:31:00 [facility] W/AUTO DIFF PHOSPHORUS LEVEL 2021-06-28 10:31:00 [facility] L[facility] 2021-06-28 10:31:00 [facility] 2021-06-28 10:31:00 [facility] ESTIMATED GFR 2021-06-28 10:31:00 [facility]IT[facility] CARE, E/M 2021-06-28 02:10:59 [facility] ECG ED PRELIMINARY 2021-06-28 02:10:59 Tu, GiniKofi [facility] INTERPRETATION TROPONIN T 2021-06-28 01:54:00 Tu, WilburnKofi [facility] TROPONIN T 2021-06-27 22:37:00 Tu, WilburnKofi [facility] ECG 12-LEAD 2021-06-27 22:11:52 Tu, GiniKofi [facility] RESPIRATORY PATHOGEN 2021-06-27 20:15:00 Tu, G[facility]Kofi [facility] PANEL WITH COVID-19 RT-PCR HC COMPLETE BLD COUNT 2021-06-27 20:15:00 Tu, GiniKofi [facility] W/AUTO DIFF PROTHROMBIN TIME WITH INR 2021-06-27 20:15:00 Tu, [facility] PARTIAL THROMBOPLASTIN 2021-06-27 20:15:00 Tu, [facility] TIME (PTT) COMPREHENSIVE METABOLIC 2021-06-27 20:15:00 Tu, [facility] PANEL TROPONIN T 2021-06-27 20:15:00 Tu, [facility] B NATRIURETIC PEPTIDE 2021-06-27 20:15:00 Tu, [facility] ESTIMATED GFR 2021-06-27 20:15:00 Tu, [facility] XR CHEST 1 VW PORTABLE 2021-06-27 20:00:58 Tu, [facility] TTE COMPLETE, WO 2021-06-05 22:55:45 Coby Doan H ospital CONTRAST, W DOPPLER ([id number]) BASIC METABOLIC PANEL 2021-04-06 14:31:00 Coby Doan [facility] CBC WITH PLATELET AND 2021-03-09 17:20:00 Coby Doan [facility] DIFFERENTIAL COMPREHENSIVE METABOLIC 2021-03-09 17:20:00 Coby Doan [facility] PANEL MAGNESIUM LEVEL 2021-03-09 17:20:00 Coby Doan spital NT-PROBNP 2021-03-09 17:20:00 Coby Doan spital HEMOGLOBIN A1C 2021-03-09 17:20:00 Coby Doan spital ECG 12-LEAD 2021-03-02 19:02:03 Coby Doan Ho spital EGD, WITH HEMORRHAGE Crissy Singleton [facility] Medical CONTROL [facility] Transurethral Resection Urology of Prostate (Surg) Coronary Artery Bypass [facility] etro Grafts X 4 Urology CARDIO- Pacemaker [facility] Insertion Urology Plan of Care Planned Activity Planned Date Details Comments Source Future Scheduled Test 2026-10-23 DTAP/TDAP/TD VACCINES [facility] 00:00:00 (2 - Td or Tdap) [facility] [address] [code = DTAP/TDAP/TD VACCINES (2 - Td or Tdap)] Future Scheduled Test 2026-10-23 DTAP/TDAP/TD VACCINES [facility] 00:00:00 (2 - Td or Tdap) [facility] [code = DTAP/TDAP/TD VACCINES (2 - Td or Tdap)] Future Scheduled Test 2022-08-01 SHINGLES VACCINES ([facility] 06:13:15 of 2) [code = SHINGLES VACCINES (1 of 2)] Future Scheduled Test 2022-08-01 DIABETIC FOOT EXAM [facility] 06:13:15 [code = DIABETIC FOOT EXAM] Future Scheduled Test 2022-08-01 DIABETES: RETINAL EYE [facility] 06:13:15 EXAM [code = DIABETES: RETINAL EYE EXAM] Future Scheduled Test 2022-07-[address] [facility] 00:00:00 (12+) [code = Medical Center DEPRESSION SCREENING (12+)] Future Scheduled Test 2022-07-07 FALLS RISK SCREENING [facility] 00:00:00 [code = FALLS RISK Medical C enter SCREENING] Future Scheduled Test 2022-03-22 HEPATITIS B VACCINES [facility] 08:06:30 (1 of 3 - 3-dose series) [code = HEPATITIS B VACCINES (1 of 3 - 3-dose series)] Future Scheduled Test 2022-03-22 SHINGLES VACCINES (1 [facility] 08:06:30 of 2) [code = SHINGLES VACCINES (1 of 2)] Future Scheduled Test 2022-03-22 DIABETIC FOOT EXAM [facility] 08:06:30 [code = DIABETIC FOOT EXAM] Future Scheduled Test 2022-03-22 DIABETES: RETINAL EYE [facility] 08:06:30 EXAM [code = DIABETES: RETINAL EYE EXAM] Future Scheduled Test 2022-03-07 [address] VACC[address] [facility] 00:[facility]:00 (#1) [code = [facility] INFLUENZA VACCINE (#1)] Future Scheduled Test 2022-03-[address] [facility] 00:00:00 (#1) [code = Medical Center INFLUENZA VACCINE (#1)] Diagnostic Test 2022-02-11 urinalysis, dipstick [place] Pending 00:00:00 [code = urinalysis, Urology dipstick] Future Scheduled Test 2022-01-28 DIABETIC FOOT EXAM [facility] 10:30:05 [code = DIABETIC FOOT EXAM] Future Scheduled Test 2022-01-28 INFLUENZA VACCINE [facility] 10:30:05 [code = INFLUENZA VACCINE] Future Scheduled Test 2022-01-28 DIABETES: RETINAL EYE [facility] 10:30:05 EXAM [code = DIABETES: RETINAL EYE EXAM] Future Scheduled Test 2022-01-28 SHINGLES VACCINES (1 [facility] 10:30:05 of 2) [code = SHINGLES VACCINES (1 of 2)] Future Scheduled Test 2022-01-28 65+ PNEUMOCOCCAL [facility] 10:30:05 VACCINE (3 - PPSV23 or PCV20) [code = 65+ PNEUMOCOCCAL VACCINE (3 - PPSV23 or PCV20)] Future Scheduled Test 2022-01-28 DIABETIC FOOT EXAM [facility] 10:30:05 [code = DIABETIC FOOT EXAM] Future Scheduled Test 2022-01-28 INFLUENZA VACCINE [facility] 10:30:05 [code = INFLUENZA VACCINE] Future Scheduled Test 2022-01-28 DIABETES: RETINAL EYE [facility] 10:30:05 EXAM [code = DIABETES: RETINAL EYE EXAM] Future Scheduled Test 2022-01-28 SHINGLES VACCINES (1 [facility] 10:30:05 of 2) [code = SHINGLES VACCINES (1 of 2)] Future Scheduled Test 2022-01-28 65+ PNEUMOCOCCAL [facility] 10:30:05 VACCINE (3 - PPSV23 or PCV20) [code = 65+ PNEUMOCOCCAL VACCINE (3 - PPSV23 or PCV20)] Future Scheduled Test 2021-07-[address] [facility] 00:00:00 (12+) [code = Medical Center DEPRESSION SCREENING (12+)] Future Scheduled Test 2021-07-07 F[address]S [address]ISK SCREENING [facility] 00:00:00 [code = FALLS RISK Medical C enter SCREENING] Future Scheduled Test 2016-12-18 SHINGLES VACCINES ([address] [facility] 00:00:00 of 3) [code = Medical Center SHINGLES VACCINES (2 of 3)] Future Scheduled Test 2016-12-18 SHINGLES VACCINES ([address] [facility] 00:00:00 of 3) [code = Medical Center SHINGLES VACCINES (2 of 3)] Future Scheduled Test 2002-04-[address] [facility] 00:00:00 WELLNESS (YEAR 2 or Medical Center FIRST YEAR if no IPPE) [code = MEDICARE ANNUAL WELLNESS (YEAR 2 or FIRST YEAR if no IPPE)] Future Scheduled Test 2002-04-[address] [facility] 00:00:00 WELLNESS (YEAR 2 or Medical Center FIRST YEAR if no IPPE) [code = MEDICARE ANNUAL WELLNESS (YEAR 2 or FIRST YEAR if no IPPE)] Future Scheduled Test [address] [facility] 00:00:00 Counseling and Medical Cente r Screening (12+) [code = Tobacco Cessation Counseling and Screening (12+)] Future Appointment 2022-08-14 [facility] [address] 00:00:00 [address]; , [place] [address] Encounters Start End Encounter Admission Attending Care Care Encounter Source Date/Time Date/Time Type Type Clinicians Facility Department ID 2022-06-25 Outpatient 3 [id number] [facility] CRD [id number] [facility] 09:23:29 [facility] [place] [facility] 2022-06-17 Outpatient 3 [id number] [facility] CRD [id number] [facility] 09:58:27 [facility] [place] 2022-06-15 Outpatient 3 [id number] E[facility] REF [id number] [facility] 12:13:29 [facility] [place] 2020-11-13 Outpatient [facility] [id number] [place] 15:45:[address] [facility] 2019-11-18 Outpatient [facility] [address] [facility] 08:31:52 VIRAJ 2022-07-31 2022-07-31 Outpatient Anabel [facility] [id number] [facility] 15:20:00 23:59:[address] [facility] 2022-07-31 2022-07-31 Orders Doctor ADHIKARI 1.2.840.114 [id number] [facility] 00:00:00 00:00:00 Only Unassigned, ZACHARY 350.1.13.10 [place] [facility] 4.2.7.2.686 Anurag as [phone] [address] 2022-07-30 2022-07-30 Office Coby Doan 1.2.840.1 [id number] 9051 Methodi 14:20:00 14:40:00 Visit Judith 79852.1.[address] 3.430.2.7 Hospit a .3.147780 l .8 2022-07-30 2022-07-30 Outpatient COBY DOAN [facility] [id number] [address] [place] 00:00:00 00:00:[address] 2022-07-30 2022-07-30 Travel 1.2.840.1 1.2.874.214 0339 288104 Methodi 00:00:00 00:00:[address] 3.430.2.7 0.2.7.3.698 Ho spita .3.401209 084.8 l .8 2022-07-30 2022-07-30 Telephone Sukh, 1.2.840.1 [id number] 2099 480381 Methodi 00:00:00 00:00:[address] B. 3.430.2.7 Hospit a .3.694201 l .8 2022-07-25 2022-07-25 Telephone Sukh, 1.2.840.1 [id number] 2099 302743 Methodi 00:00:00 00:00:[address] B. 3.430.2.7 Hospit a .3.067450 l .8 2022-07-23 2022-07-23 Office Sukh, 1.2.840.1 [id number] [id number] 4710 Methodi 14:45:00 15:50:01 Visit Marcia 23442.1.[address] B. 3.430.2.7 Hospit a .3.087081 l .8 2022-07-23 2022-07-23 Outpatient SUKH [facility] [id number] [address] [place] 00:00:00 00:00:00 MARCIA [address] 2022-07-19 2022-07-19 Telephone Lavell, 1.2.840.1 [id number] 305 [id number] Methodi 00:00:00 00:00:[address] 3.430.2.7 Hospit a .3.861542 l .8 2022-07-19 2022-07-19 Telephone RUPALI Donovan 1.2.840.114 99 [id number] [facility] 00:00:00 00:00:00 Lorri [facility] 350.1.13.10 it y of [facility] 4.2.7.2.686 Anurag as SHALONDA?BLEA [phone] [address] MEDICAL OFFICE BUILDING 2022-07-16 2022-07-16 Patient David, 1.2.840.1 [id number] 2100 [id number] Methodi 00:00:00 00:00:00 Outreach Shalonda 16044.1.[address] 3.430.2.7 Hospit a .3.891426 l .8 2022-07-15 2022-07-15 Telephone Dipesh, 1.2.840.1 [id number] 222 [id number] Methodi 00:00:00 00:00:[address] [place] 3.430.2.7 Hospit a .3.734487 l .8 2022-07-14 2022-07-14 Telephone Sukh, 1.2.840.1 [id number] 2100 406731 Methodi 00:00:00 00:00:[address] B. 3.430.2.7 Hospit a .3.317391 l .8 2022-07-12 2022-07-12 Documentat Bionat, 1.2.840.1 [id number] 613 [id number] Methodi 00:00:00 00:00:[address] ion Paloma 58207.1.[address] 3.430.2.7 Hospit a .3.994479 l .8 2022-07-12 2022-07-12 Orders Sukh, 1.2.840.1 [id number] 158161 6071 Methodi 00:00:00 00:00:00 Only Marcia 16847.1.[address] B. 3.430.2.7 Hospit a .3.950168 l .8 2022-07-12 2022-07-12 Telephone Sukh, 1.2.840.1 [id number] 2099 490365 Methodi 00:00:00 00:00:[address] B. 3.430.2.7 Hospit a .3.967781 l .8 2022-07-11 2022-07-11 Telephone Sukh, 1.2.840.1 [id number] 2099 421232 Methodi 00:00:00 00:00:[address] B. 3.430.2.7 Hospit a .3.129208 l .8 2022-07-11 2022-07-11 External Lopez, 1.2.840.5 [id number] 660 6769982 Methodi 00:00:00 00:00:00 Home [place] L [address]15.1.[address] [facility] 3.430.2.7 Hospit a .3.239745 l .8 2022-07-11 2022-07-11 Refill Sukh, 1.2.840.1 [id number] 560238 9096 Methodi 00:00:00 00:00:[address] B. 3.430.2.7 Hospit a .3.524573 l .8 2022-07-11 2022-07-11 Telephone Mares, 1.2.840.1 [id number] 2099 617933 Methodi 00:00:00 00:00:[address] 3.430.2.7 Hospit a .3.422181 l .8 2022-07-10 2022-07-10 Telemedici Sukh, 1.2.840.1 [id number] 542 8927963 Methodi 12:00:00 12:40:16 ne Marcia 38372.1.[address] B. 3.430.2.7 Hospit a .3.624634 l .8 2022-07-10 2022-07-10 Telephone Sukh, 1.2.840.1 [id number] 2099 753361 Methodi 00:00:00 00:00:[address] B. 3.430.2.7 Hospit a .3.914305 l .8 2022-07-10 2022-07-10 [facility]patient [facility] [id number] [address] [place] 00:00:00 00:00:00 MARCIA [address] 2022-07-09 2022-07-09 Telephone Sukh, 1.2.840.1 [id number] 2099 754499 Methodi 00:00:00 00:00:[address] B. 3.430.2.7 Hospit a .3.213382 l .8 2022-07-04 2022-07-04 Telephone Loly, 1.2.840.1 [id number] 272 3539296 Methodi 00:00:00 00:00:[address] 3.430.2.7 Hospit a .3.004137 l .8 2022-07-03 2022-07-03 Telephone Sukh, 1.2.840.1 [id number] 2099 774218 Methodi 00:00:00 00:00:[address] B. 3.430.2.7 Hospit a .3.155483 l .8 2022-07-03 2022-07-03 Telephone Lang, 1.2.840.1 [id number] 2099 200296 Methodi 00:00:00 00:00:[address] 3.430.2.7 Hospit a .3.877320 l .8 2022-07-03 2022-07-03 Patient David, 1.2.840.1 [id number] 2099 423520 Methodi 00:00:00 00:00:00 Outreach Shalonda 16943.1.[address] 3.430.2.7 Hospit a .3.997531 l .8 2022-07-02 2022-07-02 Telemedici Rashid Burgos 1.2.840.1 1040 65928 [id number] Methodi 15:30:00 16:00:00 Pal[address] Sheikh 71727.1.[address] 3.430.2.7 Hospit a .3.982458 l .8 2022-07-02 2022-07-02 Outpatient MELO [facility] [id number] [address] [place] 00:00:00 00:00:00 RASHID [address] 2022-07-01 2022-07-01 Refill Sukh, 1.2.840.1 [id number] [id number] 9882 Methodi 00:00:00 00:00:[address] B. 3.430.2.7 Hospit a .3.829316 l .8 2022-06-27 2022-06-27 Telephone Sukh, 1.2.840.1 [id number] 2100 060531 Methodi 00:00:00 00:00:[address] B. 3.430.2.7 Hospit a .3.143957 l .8 2022-06-26 2022-06-26 Patient Stephanie Spence 1.2.840.1 [id number] Methodi 00:00:00 00:00:00 Outreach Imtiaz [address]9301.1.[address] 3.430.2.7 Hospit a .3.840693 l .8 2022-06-26 2022-06-26 Patient David, 1.2.840.1 [id number] 2100 975446 Methodi 00:00:00 00:00:00 Outreach Shalonda [address]251.1.[address] 3.430.2.7 Hospit a .3.867642 l .8 2022-06-26 2022-06-26 Patient Noel Clement 1.2.840.1 [id number] Methodi 00:00:00 00:00:[address] 3.430.2.7 Hospit a .3.095593 l .8 2022-06-21 2022-06-25 Hospital Jami Dubois 1.2.840.1 10 4746049 [id number] Methodi 14:43:00 19:35:00 Encounter Sherif Cuba 89333.1.[address] 3.430.2.7 Hospit a .3.499785 l .8 2022-06-25 2022-06-25 Patient David, 1.2.840.1 [id number] 2099 981653 Methodi 00:00:00 00:00:00 Outreach Shalonda 50979.1.[address] 3.430.2.7 Hospit a .3.773255 l .8 2022-06-21 2022-06-25 Inpatient BEREKET [facility] [id number] [address] [place] 00:00:00 00:00:[address] SHERIF [address] 2022-06-21 2022-06-21 Telemedici Ana, 1.2.840.1 [id number] 713 3341575 Methodi 10:00:00 10:30:00 ne Paloma 12441.1.[address] 3.430.2.7 Hospit a .3.656985 l .8 2022-06-21 2022-06-21 Travel 1.2.840.1 1.2.518.840 9230 279563 Methodi 00:00:00 00:00:[address] 3.430.2.7 0.2.7.3.698 Ho spita .3.014335 084.8 l .8 2022-06-21 2022-06-21 Patient David, 1.2.840.1 [id number] 2099 763490 Methodi 00:00:00 00:00:00 Outreach Shalodna 75069.1.[address] 3.430.2.7 Hospit a .3.404933 l .8 2022-06-20 2022-06-20 Patient David, 1.2.840.1 2099 187992 Methodi 00:00:00 00:00:00 Outreach Shalonda 61657.1.[address] 3.430.2.7 Hospit a .3.562363 l .8 2022-06-20 2022-06-20 Telephone Sukh, 1.2.840.1 [id number] 2100 252901 Methodi 00:00:00 00:00:[address] B. 3.430.2.7 Hospit a .3.833335 l .8 2022-06-19 2022-06-19 Telemedic [facility] 1.2.840.1 1040 21966 [id number] Methodi 15:00:00 15:30:00 ne LianetMadeline Karimi 91497.1.[address] 3.430.2.7 Hospit a .3.906071 l .8 2022-06-19 2022-06-19 Patient David, 1.2.840.1 [id number] 2099 269431 Methodi 00:00:00 00:00:00 Outreach Shalonda [address]4575.1.[address] 3.430.2.7 Hospit a .3.679176 l .8 2022-06-19 2022-06-19 Patient David, 1.2.840.1 [id number] 2099 833259 Methodi 00:00:00 00:00:00 Outreach Shalonda [address].1.[address] 3.430.2.7 Hospit a .3.798207 l .8 2022-06-19 2022-06-19 Outpatient [facility] [address]10 8[address]53 [place] 00:00:00 00:00:[address] RASHID [address] 2022-06-18 2022-06-18 Travel 1.2.840.1 1.2.200.020 3937 469823 Methodi 00:00:00 00:00:[address] 3.430.2.7 0.2.7.3.698 Ho spita .3.252397 084.8 l .8 2022-06-18 2022-06-18 Telephone Coby Doan 1.2.840.1 [id number] 2099 148850 Methodi 00:00:00 00:00:[address] 3.430.2.7 Hospit a .3.908536 l .8 2022-06-18 2022-06-18 Patient David, 1.2.840.1 [id number] 2099 298320 Methodi 00:00:00 00:00:00 Outreach Shalonda [address]63.1.[address] 3.430.2.7 Hospit a .3.468434 l .8 2022-06-17 2022-06-17 Patient David, 1.2.840.1 [id number] 2100 204962 Methodi 00:00:00 00:00:00 Outreach Shalonda 76712.1.[address] 3.430.2.7 Hospit a .3.039126 l .8 2022-06-17 2022-06-17 Patient Aliyah 1.2.840.1 [id number] 40991 95482 Methodi 00:00:00 00:00:00 Outreach Augusta Carty 23556.1.[address] 3.430.2.7 Hospit a .3.215175 l .8 2022-06-17 2022-06-17 Patient David, 1.2.840.1 [id number] 2100 968233 Methodi 00:00:00 00:00:00 Outreach Shalonda [address]479.1.[address] 3.430.2.7 Hospit a .3.947373 l .8 2022-06-14 2022-06-14 Patient David, 1.2.840.1 [id number] 2100 719706 Methodi 00:00:00 00:00:00 Outreach Shalonda [address]1519.1.[address] 3.430.2.7 Hospit a .3.880512 l .8 2022-06-13 2022-06-13 Patient David, 1.2.840.1 [id number] 2100 930477 Methodi 00:00:00 00:00:00 Outreach Shalonda [address].1.[address] 3.430.2.7 Hospit a .3.785135 l .8 2022-06-05 2022-06-12 Hospital Vipul Gandara 1.2.840.1 05525 1002 [id number] Methodi 16:01:00 22:00:00 Encounter Laura Tolliver 91119.1.[address] Fernanda Merino 3.430.2.7 [facility] .3.685572 l .8 2022-06-12 2022-06-12 Telephone Sukh, 1.2.840.1 [id number] 2100 766988 Methodi 00:00:00 00:00:[address] B. 3.430.2.7 Hospit a .3.700799 l .8 2022-06-12 2022-06-12 Patient Stephanie Spence 1.2.840.1 [id number] Methodi 00:00:00 00:00:00 Outreach Imtiaz 15551.1.[address] 3.430.2.7 Hospit a .3.733872 l .8 2022-06-05 2022-06-12 Inpatient [facility] 064 [id number] 0243 [place] 00:00:00 00:00:00 JANES [facility] 2022-06-11 2022-06-11 Telephone Coby Doan 1.2.840.1 [id number] 2100 868358 Methodi 00:00:00 00:00:[address] 3.430.2.7 Hospit a .3.397369 l .8 2022-06-09 2022-06-09 Telephone Sukh, 1.2.840.1 [id number] 2100 624655 Methodi 00:00:00 00:00:[address] B. 3.430.2.7 Hospit a .3.426707 l .8 2022-06-05 2022-06-05 Travel 1.2.840.1 1.2.708.554 0559 464299 Methodi 00:00:00 00:00:[address] 3.430.2.7 0.2.7.3.698 Ho spita .3.697621 084.8 l .8 2022-06-04 2022-06-04 Patient David, 1.2.840.1 [id number] 2099 194472 Methodi 00:00:00 00:00:00 Outreach Shalonda 52369.1.[address] 3.430.2.7 Hospit a .3.430956 l .8 2022-05-31 2022-05-31 Orders Sukh, 1.2.840.1 [id number] 672867 4173 Methodi 00:00:00 00:00:00 Only Marcia 03600.1.[address] B. 3.430.2.7 Hospit a .3.754562 l .8 2022-05-29 2022-05-29 Telephone Sukh, 1.2.840.1 [id number] 2100 869336 Methodi 00:00:00 00:00:[address] B. 3.430.2.7 Hospit a .3.183553 l .8 2022-05-28 2022-05-28 Office Sukh, 1.2.840.1 [id number] 155292 8365 Methodi 14:45:00 14:46:30 Visit Marcia 76331.1.[address] B. 3.430.2.7 Hospit a .3.576303 l .8 2022-05-28 2022-05-28 Outpatient [facility] [id number] [address] [place] 00:00:00 00:00:00 MARCIA [address] 2022-05-23 2022-05-23 RefCoby Mackay 1.2.840.1 [id number] 875762 7054 Methodi 00:00:00 00:00:[address] 3.430.2.7 Hospit a .3.401455 l .8 2022-05-21 2022-05-21 RefFernanda Rodarte [facility] [id number] [address] [facility] [address] 00:00:00 00:00:00 [facility] 2022-05-21 2022-05-21 Telephone Sukh, 1.2.840.1 [id number] 2100 706646 Methodi 00:00:00 00:00:[address] B. 3.430.2.7 Hospit a .3.157927 l .8 2022-05-20 2022-05-20 Documentat Coby Doan 1.2.840.1 [id number] 406 [id number] Methodi 00:00:00 00:00:00 ion Judith 04657.1.[address] 3.430.2.7 Hospit a .3.421070 l .8 2022-05-14 2022-05-14 Patient David, 1.2.840.1 [id number] 2100 316352 Methodi 00:00:00 00:00:00 Outreach Shalonda [address]53.1.[address] 3.430.2.7 Hospit a .3.711147 l .8 2022-05-13 2022-05-13 Telephone Sukh, 1.2.840.1 [id number] 2100 386565 Methodi 00:00:00 00:00:[address] B. 3.430.2.7 Hospit a .3.048385 l .8 2022-05-09 2022-05-[address] [facility] 475470 -202 [place] 00:00:00 00:00:00 [address] 2022-05-09 2022-05-09 Refjohanna Luz 1.2.840.1 [id number] 045218 5479 Methodi 00:00:00 00:00:[address] B. 3.430.2.7 Hospit a .3.415189 l .8 2022-05-09 2022-05-09 RefCoby Mackay 1.2.840.1 [id number] 693383 7839 Methodi 00:00:00 00:00:[address] 3.430.2.7 Hospit a .3.050858 l .8 2022-05-08 2022-05-08 Telephone Sukh, 1.2.840.1 [id number] 2100 169382 Methodi 00:00:00 00:00:[address] B. 3.430.2.7 Hospit a .3.788207 l .8 2022-05-07 2022-05-07 Office Coby Doan 1.2.840.1 [id number] 947188 5484 Methodi 15:40:00 17:11:11 Visit Judith 71711.1.[address] 3.430.2.7 Hospit a .3.494292 l .8 2022-05-07 2022-05-07 Travel 1.2.840.1 1.2.160.316 1727 043326 Methodi 00:00:00 00:00:[address] 3.430.2.7 0.2.7.3.698 Ho spita .3.246642 084.8 l .8 2022-05-07 2022-05-07 Outpatient FRANKI COBY [facility] [id number] [address] [place] 00:00:00 00:00:[address] 2022-05-06 2022-05-06 Refjohanna Luz, 1.2.840.1 [id number] 592157 7333 Methodi 00:00:00 00:00:[address] B. 3.430.2.7 Hospit a .3.721182 l .8 2022-05-03 2022-05-03 Patient David, 1.2.840.1 [id number] 2100 122216 Methodi 00:00:00 00:00:00 Outreach Shalonda [address]4665.1.[address] 3.430.2.7 Hospit a .3.313918 l .8 2022-04-26 2022-04-26 Patient David, 1.2.840.1 [id number] 2100 600653 Methodi 00:00:00 00:00:00 Outreach Shalonda [address]14.1.[address] 3.430.2.7 Hospit a .3.157332 l .8 2022-04-25 2022-04-25 External Danya, 1.2.840.1 [id number] 2100 398335 Methodi 00:00:00 00:00:00 Home Kye Sears 01846.1.1 6[address] [facility] 3.430.2.7 Hospit a .3.274901 l .8 2022 2022 Patient David, 1.2.840.1 [id number] 2099 704408 Methodi 00:00:00 00:00:00 Outreach Shalonda [address]57.1.[address] 3.430.2.7 Hospit a .3.428303 l .8 2022-04-18 2022-04-18 Telephone Sukh, 1.2.840.1 [id number] 2100 834308 Methodi 00:00:00 00:00:[address] B. 3.430.2.7 Hospit a .3.512552 l .8 2022-04-17 2022-04-17 [facility] 1.2.840.1 [id number] 2 [id number] Methodi 14:00:00 14:30:00 ne Rashid 18401.1.[address] 3.430.2.7 Hospit a .3.789988 l .8 2022-04-17 2022-04-17 Travel 1.2.840.1 1.2.960.228 5211 759272 Methodi 00:00:00 00:00:[address] 3.430.2.7 0.2.7.3.698 Ho spita .3.456660 084.8 l .8 2022-04-17 2022-04-17 Telephone Dipesh, 1.2.840.1 [id number] 840 1281584 Methodi 00:00:00 00:00:[address] [place] 3.430.2.7 Hospit a .3.540268 l .8 2022-04-17 2022-04-17 [facility] [id number] [place] 00:00:00 00:00:00 RASHID [address] 2022-04-15 2022-04-15 Telephone Sukh, 1.2.840.1 [id number] Methodi 00:00:00 00:00:[address] B. 3.430.2.7 Hospit a .3.847214 l .8 2022-04-15 2022-04-15 Refill Sukh, 1.2.840.1 [id number] 066896 3029 Methodi 00:00:00 00:00:[address] B. 3.430.2.7 Hospit a .3.051788 l .8 2022-04-15 2022-04-15 Telephone Sukh, 1.2.840.1 [id number] 2100 754031 Methodi 00:00:00 00:00:[address] B. 3.430.2.7 Hospit a .3.158677 l .8 2022-04-15 2022-04-15 Patient David, 1.2.840.1 [id number] 2100 398940 Methodi 00:00:00 00:00:00 Outreach Shalonda 65776.1.[address] 3.430.2.7 Hospit a .3.781298 l .8 2022-04-12 2022-04-12 Telephone Coby Doan 1.2.840.1 [id number] 2099 595082 Methodi 00:00:00 00:00:[address] 3.430.2.7 Hospit a .3.381962 l .8 2022-04-11 2022-04-11 Patient UrbanoNoel 1.2.840.1 [id number] Methodi 00:00:00 00:00:[address] 3.430.2.7 Hospit a .3.835248 l .8 2022-04-11 2022-04-11 Travel 1.2.840.1 1.2.144.974 7909 397239 Methodi 00:00:00 00:00:[address] 3.430.2.7 0.2.7.3.698 Ho spita .3.498923 084.8 l .8 2022-04-03 2022-04-10 Hospital Jerry Mitchell 1.2.840.1 10 [id number] Methodi 17:56:00 18:13:00 Encounter Steve Laura Phat 10486.1.[address] [facility] 3.430.2.7 [facility] Lackeyy .3.244083 l Fernanda Merino .8 2022-04-10 2022-04-10 Telephone Franki Coby 1.2.840.1 [id number] 2100 512310 Methodi 00:00:00 00:00:[address] 3.430.2.7 Hospit a .3.858689 l .8 2022-04-03 2022-04-10 Inpatient FERNANDA MERINO [facility] 064 59547 99131 [place] 00:00:00 00:00:[address] 2022-04-04 2022-04-04 Hospital Steve Laura 1.2.840.1 [id number] 2 [id number] Methodi 10:39:48 23:59:00 Encounter Janet 85999.1.[address] 3.430.2.7 Hospit a .3.563401 l .8 2022-04-04 2022-04-04 [facility] [place] 00:00:00 00:00:00 [address] [facility] 2022-04-04 2022-04-04 Inpatient STEVE [facility]A [facility] 2100 [id number] [place] 00:00:00 00:00:[address] 2022-04-03 2022-04-03 Office Sukh, 1.2.840.1 [id number] 008505 4962 Methodi 15:00:00 16:47:02 Visit Marcia 94518.1.[address] B. 3.430.2.7 Hospit a .3.275893 l .8 2022-04-03 2022-04-03 Travel 1.2.840.1 1.2.097.077 0816 870826 Methodi 00:00:00 00:00:[address] 3.430.2.7 0.2.7.3.698 Ho spita .3.545639 084.8 l .8 2022-04-03 2022-04-03 [facility] [id number] 172 [place] 00:00:00 00:00:00 MARCIA Buck[address] Meth [address] 2022-04-02 2022-04-02 Telephone Jessika, 1.2.840.1 [id number] 2 [id number] Methodi 00:00:00 00:00:[address] 3.430.2.7 Hospit a .3.438201 l .8 2022-04-02 2022-04-02 Telephone Jessika, 1.2.840.1 [id number] 2 [id number] Methodi 00:00:00 00:00:[address] 3.430.2.7 Hospit a .3.028771 l .8 2022-04-02 2022-04-02 Telephone Coby Doan 1.2.840.1 [id number] 2099277 Methodi 00:00:00 00:00:[address] 3.430.2.7 Hospit a .3.092871 l .8 2022-03-28 2022-03-28 Patient Raven, Nieves 1.2.840.1 2099021 Methodi 00:00:00 00:00:[address] 3.430.2.7 Hospit a .3.523414 l .8 2022-03-28 2022-03-28 Patient Dylan, 1.2.840.1 62808 Methodi 00:00:00 00:00:00 Outreach Vanessa 62822.1.[address] 3.430.2.7 Hospit a .3.544865 l .8 2022-03-27 2022-03-27 Telephone Sukh 1.2.840.1 [id number] 2100 123630 Methodi 00:00:00 00:00:[address] B. 3.430.2.7 Hospit a .3.283150 l .8 2022-03-23 2022-03-23 Telephone Sukh, 1.2.840.1 [id number] 2100 163125 Methodi 00:00:00 00:00:[address] B. 3.430.2.7 Hospit a .3.227085 l .8 2022-03-23 2022-03-23 Orders Sukh, 1.2.840.1 [id number] 766872 6115 Methodi 00:00:00 00:00:00 Only Marcia 46735.1.[address] B. 3.430.2.7 Hospit a .3.624087 l .8 2022-03-21 2022-03-21 Office Sukh, 1.2.840.1 [id number] 466334 2739 Methodi 11:30:00 12:48:13 Visit Marcia 10989.1.[address] B. 3.430.2.7 Hospit a .3.127553 l .8 2022-03-21 2022-03-21 Office Sukh, 1.2.840.1 [id number] 255284 8025 Methodi 11:30:00 12:48:13 Visit Marcia 01877.1.[address] B. 3.430.2.7 Hospit a .3.380707 l .8 2022-03-21 2022-03-21 Travel 1.2.840.1 1.2.063.366 3614 455808 Methodi 00:00:00 00:00:[address] 3.430.2.7 0.2.7.3.698 Ho spita .3.992046 084.8 l .8 2022-03-21 2022-03-21 Telephone Sukh, 1.2.840.1 2099500 Methodi 00:00:00 00:00:[address] B. 3.430.2.7 Hospit a .3.493946 l .8 2022-03-21 2022-03-21 Telephone Sukh, 1.2.840.1 [id number] 2099500 Methodi 00:00:00 00:00:[address] B. 3.430.2.7 Hospit a .3.853011 l .8 2022-03-21 2022-03-21 Travel 1.2.840.1 1.2.643.170 5221 814349 Methodi 00:00:00 00:00:[address] 3.430.2.7 0.2.7.3.698 Ho spita .3.541473 084.8 l .8 2022-03-18 2022-03-18 Telephone Sukh, 1.2.840.1 [id number] 2099 369716 Methodi 00:00:00 00:00:[address] B. 3.430.2.7 Hospit a .3.129791 l .8 2022-03-18 2022-03-18 Telephone Sukh, 1.2.840.1 [id number] 2099 588877 Methodi 00:00:00 00:00:[address] B. 3.430.2.7 Hospit a .3.834442 l .8 2022-03-15 2022-03-15 Patient Raven, Nieves 1.2.840.1 2099089 Methodi 00:00:00 00:00:[address] 3.430.2.7 Hospit a .3.862953 l .8 2022-03-15 2022-03-15 Patient Raven, Nieves 1.2.840.1 2099089 Methodi 00:00:00 00:00:[address] 3.430.2.7 Hospit a .3.778343 l .8 2022-03-12 2022-03-12 Office Coby Doan 1.2.840.1 [id number] 513976 5014 Methodi 14:20:00 17:18:13 Visit Judith 12897.1.[address] 3.430.2.7 Hospit a .3.394832 l .8 2022-03-12 2022-03-12 Office Coby Doan 1.2.840.1 [id number] 307808 2578 Methodi 14:20:00 17:18:13 Visit Judith [address]7316.1.[address] 3.430.2.7 Hospit a .3.845325 l .8 2022-03-12 2022-03-12 Patient Raven, Nieves 1.2.840.1 033304090125818 Methodi 00:00:00 00:00:[address] 3.430.2.7 Hospit a .3.300198 l .8 2022-03-12 2022-03-12 Travel 1.2.840.1 1.2.485.856 7791 996016 Methodi 00:00:00 00:00:[address] 3.430.2.7 0.2.7.3.698 Ho spita .3.914124 084.8 l .8 2022-03-12 2022-03-12 Patient Raven, Nieves 1.2.840.1 [id number] Methodi 00:00:00 00:00:[address] 3.430.2.7 Hospit a .3.917544 l .8 2022-03-12 2022-03-12 Travel 1.2.840.1 1.2.436.056 1776 751551 Methodi 00:00:00 00:00:[address] 3.430.2.7 0.2.7.3.698 Ho spita .3.725806 084.8 l .8 2022-03-10 2022-03-10 Kevin Luz, 1.2.840.1 [id number] 611144 6315 Methodi 00:00:00 00:00:00 Only Marcia 45366.1.[address] B. 3.430.2.7 Hospit a .3.899557 l .8 2022-03-10 2022-03-10 Orders Sukh, 1.2.840.1 696557048 730743 1865 Methodi 00:00:00 00:00:00 Only Marcia 33927.1.[address] B. 3.430.2.7 Hospit a .3.808194 l .8 2022-03-09 2022-03-09 Refill Sukh, 1.2.840.1 635776730 448945 8883 Methodi 00:00:00 00:00:[address] B. 3.430.2.7 Hospit a .3.590252 l .8 2022-03-09 2022-03-09 Refill Sukh, 1.2.840.1 366118616 473582 2754 Methodi 00:00:00 00:00:[address] B. 3.430.2.7 Hospit a .3.269328 l .8 2022-03-05 2022-03-05 Patient Raven, Nieves 1.2.840.1 [id number] 2099 602350 Methodi 00:00:00 00:00:[address] 3.430.2.7 Hospit a .3.930482 l .8 2022-03-05 2022-03-05 Patient Raven, Nieves 1.2.840.1 [id number] Methodi 00:00:00 00:00:[address] 3.430.2.7 Hospit a .3.066190 l .8 2022-03-04 2022-03-04 [id number] [place] 00:00:00 00:00:00 47906 [facility] 2022-03-01 2022-03-01 External Jugueta, 1.2.840.1 [id number] Methodi 00:00:00 00:00:00 Home Kye Sears 57910.1.1 875 s t Health 3.430.2.7 Hospit a .3.878626 l .8 2022-03-01 2022-03-01 Refill Maco, 1.2.840.1 [id number] 2099 177400 Methodi 00:00:00 00:00:[address] 3.430.2.7 Hospit a .3.384732 l .8 2022-03-01 2022-03-01 External Jugueta, 1.2.840.1 020820057 2100 216521 Methodi 00:00:00 00:00:00 Home Kye Sears 11163.1.1 875 s t Health 3.430.2.7 Hospit a .3.680039 l .8 2022-03-01 2022-03-01 Refill Maco, 1.2.840.1 [id number] 2099 648385 Methodi 00:00:00 00:00:[address] 3.430.2.7 Hospit a .3.815879 l .8 2022-02-28 2022-02-28 Telephone Sukh, 1.2.840.1 [id number] 2099 260765 Methodi 00:00:00 00:00:[address] B. 3.430.2.7 Hospit a .3.324869 l .8 2022-02-28 2022-02-28 Telephone Sukh, 1.2.840.1 767192584 2099 462982 Methodi 00:00:00 00:00:[address] B. 3.430.2.7 Hospit a .3.509807 l .8 2022-02-22 2022-02-22 Patient Raven, Nieves 1.2.840.1 [id number] 2100 650599 Methodi 00:00:00 00:00:[address] 3.430.2.7 Hospit a .3.671946 l .8 2022-02-22 2022-02-22 Patient Raven, Nieves 1.2.840.1 690822448 2100 722150 Methodi 00:00:00 00:00:[address] 3.430.2.7 Hospit a .3.890664 l .8 2022-02-21 2022-02-21 Office Sukh, 1.2.840.1 731563311 155924 1067 Methodi 14:15:00 15:19:40 Visit Marcia 98694.1.[address] B. 3.430.2.7 Hospit a .3.810123 l .8 2022-02-21 2022-02-21 Office Sukh, 1.2.840.1 70317302220990708 541528 0151 Methodi 14:15:00 15:19:40 Visit Marcia 58569.1.[address] B. 3.430.2.7 Hospit a .3.960214 l .8 2022-02-15 2022-02-15 Refill Sukh, 1.2.840.1 096775763 777787 1375 Methodi 00:00:00 00:00:[address] B. 3.430.2.7 Hospit a .3.918270 l .8 2022-02-15 2022-02-15 Telephone Sukh, 1.2.840.1 [id number] 2099 062261 Methodi 00:00:00 00:00:[address] B. 3.430.2.7 Hospit a .3.803774 l .8 2022-02-15 2022-02-15 Travel 1.2.840.1 1.2.232.858 5332 590595 Methodi 00:00:00 00:00:[address] 3.430.2.7 0.2.7.3.698 Ho spita .3.921636 084.8 l .8 2022-02-15 2022-02-15 Refill Sukh, 1.2.840.1 856267299 934374 3258 Methodi 00:00:00 00:00:[address] B. 3.430.2.7 Hospit a .3.466136 l .8 2022-02-15 2022-02-15 Telephone Sukh, 1.2.840.1 723763933 2099 483408 Methodi 00:00:00 00:00:[address] B. 3.430.2.7 Hospit a .3.305310 l .8 2022-02-15 2022-02-15 Travel 1.2.840.1 1.2.520.927 6456 439517 Methodi 00:00:00 00:00:[address] 3.430.2.7 0.2.7.3.698 Ho spita .3.487355 084.8 l .8 2022-02-13 2022-02-13 Telephone Sukh, 1.2.840.1 [id number] 2099 855552 Methodi 00:00:00 00:00:[address] B. 3.430.2.7 Hospit a .3.771784 l .8 2022-02-13 2022-02-13 Telephone Sukh, 1.2.840.1 [id number] 2099 832787 Methodi 00:00:00 00:00:[address] B. 3.430.2.7 Hospit a .3.585640 l .8 2022-02-12 2022-02-12 Patient Raven, Nieves 1.2.840.1 574401157 2100 240765 Methodi 00:00:00 00:00:[address] 3.430.2.7 Hospit a .3.675371 l .8 2022-02-12 2022-02-12 Patient Raven, Nieves 1.2.840.1 764107869 2100 176051 Methodi 00:00:00 00:00:[address] 3.430.2.7 Hospit a .3.734891 l .8 2022-02-11 2022-02-11 Outpatient Carla [facility] [id number] [place] 00:00:00 00:00:00 7[facility] [facility] 2022-02-11 2022-02-11 Outpatient Brittany Pascual [facility] [id number] e-1 00:00:00 00:00:00 Mercy Owen [id number] 2022-02-11 2022-02-11 Mercy Weaver [facility] [place] - [id number] 8 [place] 00:00:00 00:00:00 John Soto MD: [id number] [facility] - [id number], [place] [address] , Ph. 2022-02-11 2022-02-11 Patient Guerrero, 1.2.840.1 [id number] 488072 8348 Methodi 00:00:00 00:00:00 Outreach Rachel 74876.1.[address] 3.430.2.7 Hospit a .3.592720 l .8 2022-02-11 2022-02-11 Patient Guerrero, 1.2.840.1 [id number] 639050 1012 Methodi 00:00:00 00:00:00 Outreach Rachel 21413.1.[address] 3.430.2.7 Hospit a .3.068953 l .8 2022-02-08 2022-02-08 Outpatient Carla [facility] [id number] [place] 00:00:00 00:00:00 [facility] 2022-02-07 2022-02-07 Telephone Coby Doan 1.2.840.1 [id number] 2099 550924 Methodi 00:00:00 00:00:[address] 3.430.2.7 Hospit a .3.656547 l .8 2022-02-07 2022-02-07 Telephone Coby Doan 1.2.840.1 [id number] 2099 303809 Methodi 00:00:00 00:00:[address] 3.430.2.7 Hospit a .3.851782 l .8 2022-02-06 2022-02-06 RefRosa Porras 1.2.840.1 118108612 26430554 Methodi 00:00:00 00:00:[address] 3.430.2.7 Hospit a .3.297201 l .8 2022-02-06 2022-02-06 Patient Raven, Nieves 1.2.840.1 [id number] 2099 552459 Methodi 00:00:00 00:00:[address] 3.430.2.7 Hospit a .3.696570 l .8 2022-02-06 2022-02-06 RefRosa Porras 1.2.840.1 [id number] 03427163 Methodi 00:00:00 00:00:[address] 3.430.2.7 Hospit a .3.385576 l .8 2022-02-06 2022-02-06 Patient Raven, Nieves 1.2.840.1 [id number] 2099 210806 Methodi 00:00:00 00:00:[address] 3.430.2.7 Hospit a .3.869213 l .8 2022-02-05 2022-02-05 Telephone Sukh, 1.2.840.1 [id number] 2099442 Methodi 00:00:00 00:00:[address] B. 3.430.2.7 Hospit a .3.691245 l .8 2022-02-05 2022-02-05 Telephone Sukh, 1.2.840.1 [id number] 2099442 Methodi 00:00:00 00:00:[address] B. 3.430.2.7 Hospit a .3.701982 l .8 2022-02-04 2022-02-04 Telephone Sukh, 1.2.840.1 [id number] 2099 476345 Methodi 00:00:00 00:00:[address] B. 3.430.2.7 Hospit a .3.463609 l .8 2022-02-04 2022-02-04 Refill Sukh, 1.2.840.1 090626105 242988 6816 Methodi 00:00:00 00:00:[address] B. 3.430.2.7 Hospit a .3.839732 l .8 2022-02-04 2022-02-04 Telephone Sukh, 1.2.840.1 302399069 2100 110299 Methodi 00:00:00 00:00:[address] B. 3.430.2.7 Hospit a .3.825186 l .8 2022-02-04 2022-02-04 Refill Sukh, 1.2.840.1 319442924 648637 3832 Methodi 00:00:00 00:00:[address] B. 3.430.2.7 Hospit a .3.239699 l .8 2022-01-31 2022-01-31 Telephone Sukh, 1.2.840.1 [id number] 2099 536868 Methodi 00:00:00 00:00:[address] B. 3.430.2.7 Hospit a .3.776822 l .8 2022-01-31 2022-01-31 Telephone Sukh, 1.2.840.1 868372095 2099 026340 Methodi 00:00:00 00:00:[address] B. 3.430.2.7 Hospit a .3.908829 l .8 2022-01-30 2022-01-30 Telephone Sukh, 1.2.840.1 388524886 2100 735962 Methodi 00:00:00 00:00:[address] B. 3.430.2.7 Hospit a .3.891743 l .8 2022-01-30 2022-01-30 Telephone Sukh, 1.2.840.1 220503109 2100 921097 Methodi 00:00:00 00:00:[address] B. 3.430.2.7 Hospit a .3.782532 l .8 2022-01-29 2022-01-29 Office Sukh, 1.2.840.1 [id number] 092043 7304 Methodi 11:30:00 12:27:55 Visit Marcia 18725.1.[address] B. 3.430.2.7 Hospit a .3.963703 l .8 2022-01-29 2022-01-29 Office Sukh, 1.2.840.1 [id number] 770008 4964 Methodi 11:30:00 12:27:55 Visit Marcia 59030.1.[address] B. 3.430.2.7 Hospit a .3.449684 l .8 2022-01-29 2022-01-[address] [facility] [id number] [address] 01:05:00 01:05:00 18383 [facility] 2022-01-29 2022-01-29 Travel 1.2.840.1 1.2.622.594 2631 641836 Methodi 00:00:00 00:00:[address] 3.430.2.7 0.2.7.3.698 Ho spita .3.182810 084.8 l .8 2022-01-29 2022-01-29 Travel 1.2.840.1 1.2.345.734 2670 725323 Methodi 00:00:00 00:00:[address] 3.430.2.7 0.2.7.3.698 Ho spita .3.373948 084.8 l .8 2022-01-28 2022-01-28 Patient Raven, Nieves 1.2.840.1 [id number] 2100 198096 Methodi 00:00:00 00:00:[address] 3.430.2.7 Hospit a .3.494284 l .8 2022-01-28 2022-01-28 Patient Raven, Nieves 1.2.840.1 779823554 2100 278375 Methodi 00:00:00 00:00:[address] 3.430.2.7 Hospit a .3.694462 l .8 2022-01-25 2022-01-[address] [facility] [id number] [place] 05:21:00 05:21:00 [facility] 2022-01-25 2022-01-25 Patient Dylan, 1.2.840.1 [id number] 68536 91865 Methodi 00:00:00 00:00:00 Outreach Vanessa 13565.1.[address] 3.430.2.7 Hospit a .3.730976 l .8 2022-01-25 2022-01-25 Telephone Sukh, 1.2.840.1 [id number] 2099 407398 Methodi 00:00:00 00:00:[address] B. 3.430.2.7 Hospit a .3.120505 l .8 2022-01-25 2022-01-25 Patient Dylan, 1.2.840.1 [id number] 11987 Methodi 00:00:00 00:00:00 Outreach Vanessa [address]6821.1.[address] 3.430.2.7 Hospit a .3.330084 l .8 2022-01-25 2022-01-25 Telephone Sukh, 1.2.840.1 [id number] 2099 459022 Methodi 00:00:00 00:00:[address] B. 3.430.2.7 Hospit a .3.643633 l .8 2022-01-18 2022-01-18 Coby Mandujano 1.2.840.1 [id number] 882749 0786 Methodi 00:00:00 00:00:[address] 3.430.2.7 Hospit a .3.099336 l .8 2022-01-18 2022-01-18 Travel 1.2.840.1 1.2.864.598 8278 411839 Methodi 00:00:00 00:00:[address] 3.430.2.7 0.2.7.3.698 Ho spita .3.868302 084.8 l .8 2022-01-18 2022-01-18 Telephone Sukh, 1.2.840.1 [id number] 2099 868718 Methodi 00:00:00 00:00:[address] B. 3.430.2.7 Hospit a .3.647709 l .8 2022-01-18 2022-01-18 Coby Mandujano 1.2.840.1 [id number] 346470 1315 Methodi 00:00:00 00:00:[address] 3.430.2.7 Hospit a .3.647298 l .8 2022-01-18 2022-01-18 Travel 1.2.840.1 1.2.248.455 2529 482574 Methodi 00:00:00 00:00:[address] 3.430.2.7 0.2.7.3.698 Ho spita .3.273921 084.8 l .8 2022-01-18 2022-01-18 Telephone Sukh 1.2.840.1 [id number] 2100 689739 Methodi 00:00:00 00:00:[address] B. 3.430.2.7 Hospit a .3.640145 l .8 2022-01-14 2022-01-14 [facility] [id number] -202 [place] 11:06:00 11:06:00 [facility] 2022-01-14 2022-01-14 Patient Raven, Nieves 1.2.840.1 [id number] 2100 183605 Methodi 00:00:00 00:00:[address] 3.430.2.7 Hospit a .3.019842 l .8 2022-01-14 2022-01-14 Patient Raven, Nieves 1.2.840.1 2099952 Methodi 00:00:00 00:00:[address] 3.430.2.7 Hospit a .3.258508 l .8 2022-01-13 2022-01-13 Orders Sukh, 1.2.840.1 [id number] 932556 2496 Methodi 00:00:00 00:00:00 Only Marcia 92245.1.[address] B. 3.430.2.7 Hospit a .3.615324 l .8 2022-01-13 2022-01-13 Orders Sukh, 1.2.840.1 862933521 410761 2033 Methodi 00:00:00 00:00:00 Only Marcia 64593.1.[address] B. 3.430.2.7 Hospit a .3.301261 l .8 2022-01-10 2022-01-10 Telephone Sukh, 1.2.840.1 519502891 2099 227942 Methodi 00:00:00 00:00:[address] B. 3.430.2.7 Hospit a .3.831580 l .8 2022-01-10 2022-01-10 Telephone Sukh, 1.2.840.1 144453596 2099 307715 Methodi 00:00:00 00:00:[address] B. 3.430.2.7 Hospit a .3.965050 l .8 2022-01-04 2022-01-04 External Jugueta, 1.2.840.1 2099405 Methodi 00:00:00 00:00:00 Home Kye Sears 54145.1.1 712 s t Health 3.430.2.7 Hospit a .3.583123 l .8 2022-01-04 2022-01-04 External Jugueta, 1.2.840.1 738221054 2100 211964 Methodi 00:00:00 00:00:00 Home Kye Sears 93578.1.1 712 s t Health 3.430.2.7 Hospit a .3.230557 l .8 2022-01-02 2022-01-02 Telephone Sukh, 1.2.840.1 923004281 2100 957218 Methodi 00:00:00 00:00:[address] B. 3.430.2.7 Hospit a .3.911320 l .8 2022-01-02 2022-01-02 Telephone Sukh, 1.2.840.1 389733471 2099 178353 Methodi 00:00:00 00:00:[address] B. 3.430.2.7 Hospit a .3.038938 l .8 2022-01-01 2022-01-01 Patient Raven, Nieves 1.2.840.1 967082407 2100 524716 Methodi 00:00:00 00:00:[address] 3.430.2.7 Hospit a .3.969955 l .8 2022-01-01 2022-01-01 Telephone Sukh, 1.2.840.1 424677700 2099 872275 Methodi 00:00:00 00:00:[address] B. 3.430.2.7 Hospit a .3.495861 l .8 2022-01-01 2022-01-01 Telephone Sukh, 1.2.840.1 [id number] 2099 488659 Methodi 00:00:00 00:00:[address] B. 3.430.2.7 Hospit a .3.564180 l .8 2022-01-01 2022-01-01 Patient Raven, Nieves 1.2.840.1 [id number] 2099 027140 Methodi 00:00:00 00:00:[address] 3.430.2.7 Hospit a .3.062337 l .8 2022-01-01 2022-01-01 Telephone Sukh, 1.2.840.1 472963838 2099149 Methodi 00:00:00 00:00:[address] B. 3.430.2.7 Hospit a .3.582370 l .8 2022-01-01 2022-01-01 Telephone Sukh, 1.2.840.1 208918637 2099135 Methodi 00:00:00 00:00:[address] B. 3.430.2.7 Hospit a .3.652822 l .8 2021-12-28 2021-12-28 Telephone Sukh, 1.2.840.1 066502689 2099 799925 Methodi 00:00:00 00:00:[address] B. 3.430.2.7 Hospit a .3.646651 l .8 2021-12-28 2021-12-28 Telephone Sukh, 1.2.840.1 398831276 2099 593972 Methodi 00:00:00 00:00:[address] B. 3.430.2.7 Hospit a .3.526229 l .8 2021-12-26 2021-12-26 Telephone Sukh, 1.2.840.1 868119604 2099 777560 Methodi 00:00:00 00:00:[address] B. 3.430.2.7 Hospit a .3.249738 l .8 2021-12-26 2021-12-26 Telephone Sukh, 1.2.840.1 335306354 2099 712910 Methodi 00:00:00 00:00:[address] B. 3.430.2.7 Hospit a .3.689970 l .8 2021-12-22 2021-12-22 Orders Sukh, 1.2.840.1 866484876 502543 5743 Methodi 00:00:00 00:00:00 Only Marcia 75809.1.[address] B. 3.430.2.7 Hospit a .3.205141 l .8 2021-12-22 2021-12-22 Orders Sukh, 1.2.840.1 120539004 701182 8464 Methodi 00:00:00 00:00:00 Only Marcia 81730.1.[address] B. 3.430.2.7 Hospit a .3.805352 l .8 2021-12-21 2021-12-21 Patient Raven, Nieves 1.2.840.1 2099 076362 Methodi 00:00:00 00:00:[address] 3.430.2.7 Hospit a .3.025021 l .8 2021-12-21 2021-12-21 Patient Raven, Nieves 1.2.840.1 [id number] 2100 067747 Methodi 00:00:00 00:00:[address] 3.430.2.7 Hospit a .3.198990 l .8 2021-12-20 2021-12-20 Patient Raven, Nieves 1.2.840.1 [id number] 2099 070945 Methodi 00:00:00 00:00:[address] 3.430.2.7 Hospit a .3.449680 l .8 2021-12-20 2021-12-20 Patient Raven, Nieves 1.2.840.1 [id number] 2100 829056 Methodi 00:00:00 00:00:[address] 3.430.2.7 Hospit a .3.206620 l .8 2021-12-14 2021-12-14 Telephone Sukh, 1.2.840.1 [id number] 2100 825391 Methodi 00:00:00 00:00:[address] B. 3.430.2.7 Hospit a .3.654267 l .8 2021-12-14 2021-12-14 Telephone Sukh, 1.2.840.1 192435175 2099 635397 Methodi 00:00:00 00:00:[address] B. 3.430.2.7 Hospit a .3.518955 l .8 2021-12-13 2021-12-13 Telephone Coby Doan 1.2.840.1 [id number] 2099 907189 Methodi 00:00:00 00:00:[address] 3.430.2.7 Hospit a .3.831060 l .8 2021-12-13 2021-12-13 Telephone Franki Coby 1.2.840.1 [id number] 2099 327285 Methodi 00:00:00 00:00:[address] 3.430.2.7 Hospit a .3.798592 l .8 2021-12-12 2021-12-12 Telemedici Sukh, 1.2.840.1 [id number] 299 [id number] Methodi 15:00:00 15:15:00 [address] Marcia [address]92.1.[address] B. 3.430.2.7 Hospit a .3.125311 l .8 2021-12-12 2021-12-12 Telemedici Sukh, 1.2.840.1 [id number] 238 [id number] Methodi 15:00:00 15:15:00 ne Marcia 22935.1.[address] B. 3.430.2.7 Hospit a .3.389957 l .8 2021-12-12 2021-12-12 Telephone Sukh, 1.2.840.1 [id number] 2099 [id number] Methodi 00:00:00 00:00:[address] B. 3.430.2.7 Hospit a .3.727248 l .8 2021-12-12 2021-12-12 Telephone Sukh, 1.2.840.1 [id number] 2099 [id number] Methodi 00:00:00 00:00:[address] B. 3.430.2.7 Hospit a .3.664143 l .8 2021-12-11 2021-12-11 Telephone Phelps, 1.2.840.1 [id number] 741 [id number] Methodi 00:00:00 00:00:[address] 3.430.2.7 Hospit a .3.630795 l .8 2021-12-11 2021-12-11 Patient Raven, Nieves 1.2.840.1 [id number] 2099 [id number] Methodi 00:00:00 00:00:[address] 3.430.2.7 Hospit a .3.444520 l .8 2021-12-11 2021-12-11 Telephone Sukh, 1.2.840.1 [id number] 2099 [id number] Methodi 00:00:00 00:00:[address] B. 3.430.2.7 Hospit a .3.084699 l .8 2021-12-11 2021-12-11 Telephone Sukh, 1.2.840.1 [id number] 2099 [id number] Methodi 00:00:00 00:00:[address] B. 3.430.2.7 Hospit a .3.184619 l .8 2021-12-11 2021-12-11 Telephone Phelps, 1.2.840.1 [id number] 994 1218751 Methodi 00:00:00 00:00:[address] 3.430.2.7 Hospit a .3.979174 l .8 2021-12-11 2021-12-11 Patient Raven, Nieves 1.2.840.1 [id number] 2099 [id number] Methodi 00:00:00 00:00:[address] 3.430.2.7 Hospit a .3.477980 l .8 2021-12-11 2021-12-11 Telephone Sukh, 1.2.840.1 [id number] [id number] Methodi 00:00:00 00:00:[address] B. 3.430.2.7 Hospit a .3.258284 l .8 2021-12-11 2021-12-11 Telephone Sukh, 1.2.840.1 [id number] Methodi 00:00:00 00:00:[address] B. 3.430.2.7 Hospit a .3.316326 l .8 2021-12-11 2021-12-11 Telephone Sukh, 1.2.840.1 [id number] Methodi 00:00:00 00:00:[address] B. 3.430.2.7 Hospit a .3.831884 l .8 2021-12-10 2021-12-10 Orders Sukh, 1.2.840.1 [id number] 796802 5202 Methodi 00:00:00 00:00:00 Only Marcia 58127.1.[address] B. 3.430.2.7 Hospit a .3.204513 l .8 2021-12-10 2021-12-10 Patient Dylan, 1.2.840.1 [id number] 33147 Methodi 00:00:00 00:00:00 Outreach Vanessa 21648.1.[address] 3.430.2.7 Hospit a .3.281698 l .8 2021-12-10 2021-12-10 Travel 1.2.840.1 1.2.700.675 1108 903441 Methodi 00:00:00 00:00:[address] 3.430.2.7 0.2.7.3.698 Ho spita .3.924437 084.8 l .8 2021-12-10 2021-12-10 Orders Sukh, 1.2.840.1 [id number] 4075 Methodi 00:00:00 00:00:00 Only Marcia 26606.1.[address] B. 3.430.2.7 Hospit a .3.388301 l .8 2021-12-10 2021-12-10 Patient Dylan, 1.2.840.1 Methodi 00:00:00 00:00:00 Outreach Vanessa [address]758.1.[address] 3.430.2.7 Hospit a .3.381736 l .8 2021-12-10 2021-12-10 Travel 1.2.840.1 1.2.185.377 2657 737652 Methodi 00:00:00 00:00:[address] 3.430.2.7 0.2.7.3.698 Ho spita .3.639102 084.8 l .8 2021-12-06 2021-12-06 Telephone Sukh, 1.2.840.1 [id number] 2100 [id number] Methodi 00:00:00 00:00:[address] B. 3.430.2.7 Hospit a .3.337290 l .8 2021-12-06 2021-12-06 Telephone Sukh, 1.2.840.1 [id number] 2100 875212 Methodi 00:00:00 00:00:[address] B. 3.430.2.7 Hospit a .3.247402 l .8 2021-11-30 2021-11-30 Patient Raven, Nieves 1.2.840.1 [id number] Methodi 00:00:00 00:00:[address] 3.430.2.7 Hospit a .3.742987 l .8 2021-11-30 2021-11-30 Patient Raven, Nieves 1.2.840.1 2099281 Methodi 00:00:00 00:00:[address] 3.430.2.7 Hospit a .3.436110 l .8 2021-11-29 2021-11-29 External Jugueta, 1.2.840.1 2099 [id number] Methodi 00:00:00 00:00:00 Home Kye Sears 14380.1.1 [address] [facility] 3.430.2.7 Hospit a .3.621002 l .8 2021-11-29 2021-11-29 External Jugueta, 1.2.840.1 2099 506211 Methodi 00:00:00 00:00:00 Home Kye Sears 41877.1.1 345 [address] t Health 3.430.2.7 Hospit a .3.369828 l .8 2021-11-28 2021-11-28 Patient Raven, Nieves 1.2.840.1 2099 [id number] Methodi 00:00:00 00:00:[address] 3.430.2.7 Hospit a .3.793373 l .8 2021-11-28 2021-11-28 Patient Raven, Nieves 1.2.840.1 2099 [id number] Methodi 00:00:00 00:00:[address] 3.430.2.7 Hospit a .3.273257 l .8 2021-11-26 2021-11-26 Telephone Sukh, 1.2.840.1 [id number] 2099 [id number] Methodi 00:00:00 00:00:[address] B. 3.430.2.7 Hospit a .3.471417 l .8 2021-11-26 2021-11-26 Telephone Sukh, 1.2.840.1 [id number] 2099 536921 Methodi 00:00:00 00:00:[address] B. 3.430.2.7 Hospit a .3.811394 l .8 2021-11-20 2021-11-20 Office Coby Doan 1.2.840.1 [id number] 5737 Methodi 16:40:00 17:58:15 Visit Judith 15069.1.[address] 3.430.2.7 Hospit a .3.069815 l .8 2021-11-20 2021-11-20 Office Coby Doan 1.2.840.1 [id number] [id number] 0547 Methodi 16:40:00 17:58:15 Visit Judith 89817.1.[address] 3.430.2.7 Hospit a .3.726971 l .8 2021-11-20 2021-11-20 Travel 1.2.840.1 1.2.219.696 1667 370006 Methodi 00:00:00 00:00:[address] 3.430.2.7 0.2.7.3.698 Ho spita .3.763565 084.8 l .8 2021-11-20 2021-11-20 Travel 1.2.840.1 1.2.828.267 9857 361543 Methodi 00:00:00 00:00:[address] 3.430.2.7 0.2.7.3.698 Ho spita .3.057318 084.8 l .8 2021-11-19 2021-11-19 Patient Raven, Nieves 1.2.840.1 [id number] 2099 [id number] Methodi 00:00:00 00:00:[address] 3.430.2.7 Hospit a .3.174163 l .8 2021-11-19 2021-11-19 Patient Raven, Nieves 1.2.840.1 2099 312807 Methodi 00:00:00 00:00:[address] 3.430.2.7 Hospit a .3.377643 l .8 2021-11-16 2021-11-16 Telephone Sukh 1.2.840.1 [id number] 2100 203012 Methodi 00:00:00 00:00:[address] B. 3.430.2.7 Hospit a .3.703267 l .8 2021-11-16 2021-11-16 Telephone Sukh 1.2.840.1 [id number] 2099 173054 Methodi 00:00:00 00:00:[address] B. 3.430.2.7 Hospit a .3.503611 l .8 2021-11-14 2021-11-14 Patient Raven, Nieves 1.2.840.1 [id number] 2099 [id number] Methodi 00:00:00 00:00:[address] 3.430.2.7 Hospit a .3.326423 l .8 2021-11-14 2021-11-14 Patient Raven, Nieves 1.2.840.1 [id number] 2099 796942 Methodi 00:00:00 00:00:[address] 3.430.2.7 Hospit a .3.379662 l .8 2021-11-12 2021-11-12 Telephone Rosa Eric 1.2.840.1 [id number] Methodi 00:00:00 00:00:[address] 3.430.2.7 Hospit a .3.905637 l .8 2021-11-12 2021-11-12 Orders Rosa Eric 1.2.840.1 [id number] 21 [id number] Methodi 00:00:00 00:00:[address] 3.430.2.7 Hospit a .3.995521 l .8 2021-11-12 2021-11-12 Telephone Rosa Eric 1.2.840.1 [id number] Methodi 00:00:00 00:00:[address] 3.430.2.7 Hospit a .3.561508 l .8 2021-11-12 2021-11-12 Orders Rosa Eric 1.2.840.1 [id number] Methodi 00:00:00 00:00:[address] 3.430.2.7 Hospit a .3.742803 l .8 2021-11-08 2021-11-08 Telephone Sukh, 1.2.840.1 [id number] 2099 [id number] Methodi 00:00:00 00:00:[address] B. 3.430.2.7 Hospit a .3.779454 l .8 2021-11-08 2021-11-08 Orders Sukh, 1.2.840.1 [id number] 7853 Methodi 00:00:00 00:00:00 Only Marcia 22245.1.[address] B. 3.430.2.7 Hospit a .3.099884 l .8 2021-11-08 2021-11-08 Telephone Sukh, 1.2.840.1 [id number] 2099 [id number] Methodi 00:00:00 00:00:[address] B. 3.430.2.7 Hospit a .3.883254 l .8 2021-11-08 2021-11-08 Orders Sukh, 1.2.840.1 [id number] 928152 8555 Methodi 00:00:00 00:00:00 Only Marcia 00751.1.[address] B. 3.430.2.7 Hospit a .3.905242 l .8 2021-11-07 2021-11-07 Patient Raven, Nieves 1.2.840.1 [id number] 2099503 Methodi 00:00:00 00:00:[address] 3.430.2.7 Hospit a .3.507651 l .8 2021-11-07 2021-11-07 Telephone Marciano, 1.2.840.1 [id number] 2099 [id number] Methodi 00:00:00 00:00:[address] 3.430.2.7 Hospit a .3.410351 l .8 2021-11-07 2021-11-07 Patient Nieves Carbajal 1.2.840.1 [id number] 2099 293002 Methodi 00:00:00 00:00:[address] 3.430.2.7 Hospit a .3.434071 l .8 2021-11-07 2021-11-07 Telephone Marciano, 1.2.840.1 [id number] 2099 015719 Methodi 00:00:00 00:00:[address] 3.430.2.7 Hospit a .3.419919 l .8 2021-11-05 2021-11-05 Office Sukh, 1.2.840.1 [id number] 2749 Methodi 11:00:00 12:50:30 Visit Marcia 53144.1.[address] B. 3.430.2.7 Hospit a .3.180630 l .8 2021-11-05 2021-11-05 Office Sukh, 1.2.840.1 [id number] 7220 Methodi 11:00:00 12:50:30 Visit Marcia 73384.1.[address] B. 3.430.2.7 Hospit a .3.380073 l .8 2021-11-05 2021-11-05 Travel 1.2.840.1 1.2.487.151 0885 587466 Methodi 00:00:00 00:00:[address] 3.430.2.7 0.2.7.3.698 Ho spita .3.481394 084.8 l .8 2021-11-05 2021-11-05 Travel 1.2.840.1 1.2.976.397 7970 957452 Methodi 00:00:00 00:00:[address] 3.430.2.7 0.2.7.3.698 Ho spita .3.383416 084.8 l .8 2021-11-02 2021-11-02 Telephone Suhk, 1.2.840.1 [id number] 2099 704555 Methodi 00:00:00 00:00:[address] B. 3.430.2.7 Hospit a .3.332173 l .8 2021-11-02 2021-11-02 Refill Trisha, 1.2.840.1 [id number] 627214 2519 Methodi 00:00:00 00:00:00 Sean R. 54946.1.[address] 3.430.2.7 Hospit a .3.733664 l .8 2021-11-02 2021-11-02 Telephone Sukh, 1.2.840.1 [id number] 2099 434554 Methodi 00:00:00 00:00:[address] B. 3.430.2.7 Hospit a .3.460624 l .8 2021-11-02 2021-11-02 Refill Trisha, 1.2.840.1 [id number] 108090 8659 Methodi 00:00:00 00:00:00 Sean R. 08409.1.[address] 3.430.2.7 Hospit a .3.818843 l .8 2021-10-31 2021-10-31 Patient Raven, Nieves 1.2.840.1 [id number] Methodi 00:00:00 00:00:[address] 3.430.2.7 Hospit a .3.591661 l .8 2021-10-31 2021-10-31 Patient Raven, Nieves 1.2.840.1 2099997 Methodi 00:00:00 00:00:[address] 3.430.2.7 Hospit a .3.516569 l .8 2021-10-30 2021-10-30 Patient Dylan, 1.2.840.1 [id number] Methodi 00:00:00 00:00:00 Outreach Vanessa 79437.1.[address] 3.430.2.7 Hospit a .3.614360 l .8 2021-10-30 2021-10-30 Patient Dylan, 1.2.840.1 85350 Methodi 00:00:00 00:00:00 Outreach Vanessa 57008.1.[address] 3.430.2.7 Hospit a .3.500696 l .8 2021-10-24 2021-10-24 Patient Raven, Nieves 1.2.840.1 2099 480012 Methodi 00:00:00 00:00:[address] 3.430.2.7 Hospit a .3.203352 l .8 2021-10-24 2021-10-24 Patient Raven, Nieves 1.2.840.1 2099 610002 Methodi 00:00:00 00:00:[address] 3.430.2.7 Hospit a .3.649783 l .8 2021-10-17 2021-10-17 Telephone Sukh, 1.2.840.1 [id number] 2099 070528 Methodi 00:00:00 00:00:[address] B. 3.430.2.7 Hospit a .3.498985 l .8 2021-10-17 2021-10-17 Telephone Sukh, 1.2.840.1 [id number] 2099 664579 Methodi 00:00:00 00:00:[address] B. 3.430.2.7 Hospit a .3.445203 l .8 2021-10-16 2021-10-16 Orders Doctor ZEYNEP 1.2.840.114 [id number] 48 Univers 00:00:00 00:00:00 Only Unassigned, ZACHARY 350.1.13.10 [place] [facility] 4.2.7.2.686 Anurag as [phone] [place] [address] [place] 2021-10-15 2021-10-15 External Stanley, 1.2.840.1 2099853 Methodi 00:00:00 00:00:00 Home Yani 50076.1.[address] Health 3.430.2.7 Hospit a .3.878260 l .8 2021-10-15 2021-10-15 External Stanley, 1.2.840.1 2099853 Methodi 00:00:00 00:00:00 Home Yani 21192.1.[address] Health 3.430.2.7 Hospit a .3.613542 l .8 2021-10-12 2021-10-12 Orders Semones, 1.2.840.1 [id number] Methodi 00:00:00 00:00:00 Only Cat 98798.1.[address] 3.430.2.7 Hospit a .3.558544 l .8 2021-10-12 2021-10-12 Orders Semones, 1.2.840.1 Methodi 00:00:00 00:00:00 Only Cat 30791.1.[address] 3.430.2.7 Hospit a .3.201891 l .8 2021-10-11 2021-10-11 Patient Raven, Nieves 1.2.840.1 [id number] Methodi 00:00:00 00:00:[address] 3.430.2.7 Hospit a .3.167504 l .8 2021-10-11 2021-10-11 Patient Raven, Nieves 1.2.840.1 2099727 Methodi 00:00:00 00:00:[address] 3.430.2.7 Hospit a .3.564250 l .8 2021-10-09 2021-10-09 Telephone Sukh, 1.2.840.1 [id number] Methodi 00:00:00 00:00:[address] B. 3.430.2.7 Hospit a .3.476969 l .8 2021-10-09 2021-10-09 Telephone Sukh, 1.2.840.1 [id number] 2099474 Methodi 00:00:00 00:00:[address] B. 3.430.2.7 Hospit a .3.959351 l .8 2021-10-09 2021-10-09 Telephone Sukh, 1.2.840.1 [id number] 2099536 Methodi 00:00:00 00:00:[address] B. 3.430.2.7 Hospit a .3.424481 l .8 2021-10-09 2021-10-09 Telephone Sukh, 1.2.840.1 [id number] Methodi 00:00:00 00:00:[address] B. 3.430.2.7 Hospit a .3.760342 l .8 2021-10-04 2021-10-04 Patient Raven, Nieves 1.2.840.1 [id number] 2100 [id number] Methodi 00:00:00 00:00:[address] 3.430.2.7 Hospit a .3.352203 l .8 2021-10-04 2021-10-04 Telephone Rosa Eric 1.2.840.1 [id number] Methodi 00:00:00 00:00:[address] 3.430.2.7 Hospit a .3.673871 l .8 2021-10-04 2021-10-04 Patient Raven, Nieves 1.2.840.1 [id number] 2099 [id number] Methodi 00:00:00 00:00:[address] 3.430.2.7 Hospit a .3.337440 l .8 2021-10-04 2021-10-04 Telephone Rosa Eric 1.2.840.1 [id number] Methodi 00:00:00 00:00:[address] 3.430.2.7 Hospit a .3.155609 l .8 2021-10-03 2021-10-03 Telephone Sukh, 1.2.840.1 [id number] Methodi 00:00:00 00:00:[address] B. 3.430.2.7 Hospit a .3.422963 l .8 2021-10-03 2021-10-03 Telephone Sukh, 1.2.840.1 [id number] Methodi 00:00:00 00:00:[address] B. 3.430.2.7 Hospit a .3.838265 l .8 2021-10-02 2021-10-02 [facility] [id number] Univers 15:30:00 15:31:03 [facility] 2021-10-02 2021-10-02 [facility] 1.2.840.114 [id number] Univers 15:30:00 15:31:03 Visit [facility] 350.1.13.10 it y of [place] 4.2.7.2.686 Anurag as SHALONDA?BLEA [phone] [address] MEDICAL OFFICE [facility] 2021-10-02 2021-10-02 [facility] [id number] 768 Univers 15:30:00 15:31:03 [facility] 2021-10-02 2021-10-02 [facility] [id number] 768 Univers 15:30:00 15:31:03 [facility] 2021-10-02 2021-10-02 Patient Raven, Nieves 1.2.840.1 [id number] 2099 [id number] Methodi 00:00:00 00:00:[address] 3.430.2.7 Hospit a .3.202846 l .8 2021-10-02 2021-10-02 Telephone Sukh, 1.2.840.1 [id number] 2100 [id number] Methodi 00:00:00 00:00:[address] B. 3.430.2.7 Hospit a .3.912669 l .8 2021-10-02 2021-10-02 Patient Nieves Carbajal 1.2.840.1 [id number] 2099 562546 Methodi 00:00:00 00:00:[address] 3.430.2.7 Hospit a .3.538270 l .8 2021-10-02 2021-10-02 Telephone Sukh, 1.2.840.1 [id number] 2099 [id number] Methodi 00:00:00 00:00:[address] B. 3.430.2.7 Hospit a .3.286520 l .8 2021-10-01 2021-10-01 Patient Dylan, 1.2.840.1 [id number] 21001 91073 Methodi 00:00:00 00:00:00 Outreach Vanessa [address]339.1.[address] 3.430.2.7 Hospit a .3.464958 l .8 2021-10-01 2021-10-01 Patient Dylan, 1.2.840.1 [id number] 60455 Methodi 00:00:00 00:00:00 Outreach Vanessa 64376.1.[address] 3.430.2.7 Hospit a .3.105666 l .8 2021-09-23 2021-09-28 [facility] [id number] [facility] 03:10[facility] 10:36:00 Encounter Adriane Jackman [facility] 2021-09-23 2021-09-28 [facility] [id number] [facility] 03:10:00 10:36:00 Encounter Adriane Jackman [facility] 2021-09-23 2021-09-28 Inpatient ER JOSE, [facility] [id number] 22 [facility] 03:10:00 10:36:00 GARRETT 2021-09-28 2021-09-28 Telephone Sukh, 1.2.840.1 [id number] Methodi 00:00:00 00:00:[address] B. 3.430.2.7 Hospit a .3.326035 l .8 2021-09-28 2021-09-28 Telephone Sukh, 1.2.840.1 [id number] [id number] Methodi 00:00:00 00:00:[address] B. 3.430.2.7 Hospit a .3.713753 l .8 2021-09-27 2021-09-27 Telephone Sukh, 1.2.840.1 [id number] 2099720 Methodi 00:00:00 00:00:[address] B. 3.430.2.7 Hospit a .3.302807 l .8 2021-09-27 2021-09-27 Telephone Sukh, 1.2.840.1 [id number] 2099720 Methodi 00:00:00 00:00:[address] B. 3.430.2.7 Hospit a .3.279903 l .8 2021-09-26 2021-09-26 Telephone Sukh, 1.2.840.1 [id number] 2099662 Methodi 00:00:00 00:00:[address] B. 3.430.2.7 Hospit a .3.934762 l .8 2021-09-26 2021-09-26 Telephone Sukh, 1.2.840.1 [id number] Methodi 00:00:00 00:00:[address] B. 3.430.2.7 Hospit a .3.949711 l .8 2021-09-26 2021-09-26 Telephone Sukh, 1.2.840.1 [id number] Methodi 00:00:00 00:00:[address] B. 3.430.2.7 Hospit a .3.935251 l .8 2021-09-26 2021-09-26 Telephone Sukh 1.2.840.1 [id number] 2099650 Methodi 00:00:00 00:00:[address] B. 3.430.2.7 Hospit a .3.752735 l .8 2021-09-24 2021-09-24 Outpatient Anabel JAQUEZ [facility] [id number] Univers 15:15:00 15:15:00 [facility] 2021-09-24 2021-09-24 Telephone Sukh, 1.2.840.1 [id number] 2099 659046 Methodi 00:00:00 00:00:[address] B. 3.430.2.7 Hospit a .3.233372 l .8 2021-09-24 2021-09-24 Telephone Sukh 1.2.840.1 [id number] 2099 158369 Methodi 00:00:00 00:00:[address] B. 3.430.2.7 Hospit a .3.668691 l .8 2021-09-23 2021-09-23 Anesthesia Alo Vazquez [facility] [id number] [facility] 09:58:00 10:15:00 Event [facility] 2021-09-23 2021-09-23 Anesthesia Alo Vazquez [facility] [id number] [facility] 09:58:00 10:15:00 Event [facility] 2021-09-23 2021-09-23 Surgery Areli [facility] [id number] [address] 09:00:00 09:30:00 [facility] 2021-09-23 2021-09-23 Surgery Areli [facility] [id number] [address] 09:00:00 09:30:00 [facility] 2021-09-23 2021-09-23 Travel [facility] [id number] [facility] 00:00:00 [facility] 2021-09-23 2021-09-23 Travel [facility] [id number] [facility] 00:00:00 [facility] 2021-09-23 2021-09-23 Telephone Sukh, 1.2.840.1 [id number] 2099 [id number] Methodi 00:00:00 00:00:[address] B. 3.430.2.7 Hospit a .3.360419 l .8 2021-09-23 2021-09-23 Telephone Sukh, 1.2.840.1 [id number] 2099 881061 Methodi 00:00:00 00:00:[address] B. 3.430.2.7 Hospit a .3.525652 l .8 2021-09-21 2021-09-21 Telephone Coby Doan 1.2.840.1 [id number] 2099 799823 Methodi 00:00:00 00:00:[address] 3.430.2.7 Hospit a .3.511760 l .8 2021-09-21 2021-09-21 RefCoby Mackay 1.2.840.1 [id number] 991617 1181 Methodi 00:00:00 00:00:[address] 3.430.2.7 Hospit a .3.530584 l .8 2021-09-21 2021-09-21 Telephone Coby Doan 1.2.840.1 [id number] 2099 115511 Methodi 00:00:00 00:00:[address] 3.430.2.7 Hospit a .3.736512 l .8 2021-09-21 2021-09-21 RefCoby Mackay 1.2.840.1 [id number] 342395 2474 Methodi 00:00:00 00:00:[address] 3.430.2.7 Hospit a .3.295870 l .8 2021-09-19 2021-09-19 Telephone Sukh, 1.2.840.1 [id number] [id number] Methodi 00:00:00 00:00:[address] B. 3.430.2.7 Hospit a .3.563926 l .8 2021-09-19 2021-09-19 Telephone Sukh, 1.2.840.1 [id number] 2099170 Methodi 00:00:00 00:00:[address] B. 3.430.2.7 Hospit a .3.053525 l .8 2021-09-18 2021-09-18 Telemedici Sukh, 1.2.840.1 [id number] 188 [id number] Methodi 14:45:00 15:00:00 ne Marcia 84610.1.[address] B. 3.430.2.7 Hospit a .3.712476 l .8 2021-09-18 2021-09-18 Telemedici Sukh, 1.2.840.1 [id number] 288 1162418 Methodi 14:45:00 15:00:00 ne Marcia 76106.1.[address] B. 3.430.2.7 Hospit a .3.228218 l .8 2021-09-18 2021-09-18 Telephone Sukh, 1.2.840.1 [id number] 2099 184848 Methodi 00:00:00 00:00:[address] B. 3.430.2.7 Hospit a .3.074554 l .8 2021-09-18 2021-09-18 Telephone Sukh, 1.2.840.1 [id number] 2099 804297 Methodi 00:00:00 00:00:[address] B. 3.430.2.7 Hospit a .3.533898 l .8 2021-09-18 2021-09-18 Travel 1.2.840.1 1.2.191.993 6876 564019 Methodi 00:00:00 00:00:[address] 3.430.2.7 0.2.7.3.698 Ho spita .3.909701 084.8 l .8 2021-09-18 2021-09-18 Telephone Sukh, 1.2.840.1 [id number] 2100 377193 Methodi 00:00:00 00:00:[address] B. 3.430.2.7 Hospit a .3.895991 l .8 2021-09-18 2021-09-18 Telephone Sukh, 1.2.840.1 [id number] 2099 622887 Methodi 00:00:00 00:00:[address] B. 3.430.2.7 Hospit a .3.641303 l .8 2021-09-18 2021-09-18 Travel 1.2.840.1 1.2.677.832 6867 376355 Methodi 00:00:00 00:00:[address] 3.430.2.7 0.2.7.3.698 Ho spita .3.954064 084.8 l .8 2021-09-17 2021-09-17 Telephone Yoandy, 1.2.840.1 [id number] Methodi 00:00:00 00:00:[address] 3.430.2.7 Hospit a .3.449727 l .8 2021-09-17 2021-09-17 Orders Yoandy, 1.2.840.1 [id number] 2099 438645 Methodi 00:00:00 00:00:00 Only Hannah 74162.1.[address] 3.430.2.7 Hospit a .3.487984 l .8 2021-09-17 2021-09-17 Telephone Sukh, 1.2.840.1 [id number] 2099 029252 Methodi 00:00:00 00:00:[address] B. 3.430.2.7 Hospit a .3.017002 l .8 2021-09-17 2021-09-17 Telephone Yoandy, 1.2.840.1 [id number] Methodi 00:00:00 00:00:[address] 3.430.2.7 Hospit a .3.687877 l .8 2021-09-17 2021-09-17 Orders Yoandy 1.2.840.1 [id number] 2099 786329 Methodi 00:00:00 00:00:00 Only Hannah 12195.1.[address] 3.430.2.7 Hospit a .3.095678 l .8 2021-09-17 2021-09-17 Telephone Sukh, 1.2.840.1 [id number] 2099 884179 Methodi 00:00:00 00:00:[address] B. 3.430.2.7 Hospit a .3.805991 l .8 2021-09-07 2021-09-07 Orders Doctor ADHIKARI 1.2.840.114 [id number] [id number] Univers 00:00:00 00:00:00 Only Unassigned, ZACHARY 350.1.13.10 [place] [facility] 4.2.7.2.686 Anurag as [phone] [facility] [address] 2021-08-30 2021-08-30 Outpatient R [facility] [id number] Univers 00:00:00 00:00:[address] [facility] 2021-08-29 2021-08-29 [facility] THEODORA Todd 1.2.840.114 9 [id number] Univers 11:15:00 23:59:00 Encounter Garrett Sewell 350.1.13.10 ity of BUILDING 4.2.7.2.686 Anurag as [id number] [facility] [address] 2021-08-29 2021-08-29 [facility] [id number] [id number] Univers 00:00:00 23:59:00 GARRETT prabhakar [facility] 2021-08-29 2021-08-29 Outpatient R [facility] [id number] Univers 00:00:00 00:00:[address] [facility] 2021-08-28 2021-08-28 [facility] THEODORA Todd 1.2.840.114 9 [id number] Univers 11:16:00 23:59:00 Encounter Garrett Sewell 350.1.13.10 ity of [facility] 4.2.7.2.686 Anurag as [id number] [address] 2021-08-28 2021-08-28 [facility] [id number] Univers 00:00:00 23:59:00 GARRETT prabhakar [facility] 2021-08-07 2021-08-07 [facility] 1.2.840.114 [id number] Univers 00:00:00 00:00:00 [facility] 350.1.13.10 it y of [place] 4.2.7.2.686 Anurag as SHALONDA?BLEA [phone] [place] elmerjairo [address] MEDICAL OFFICE BUILDING 2021-08-03 2021-08-03 Lowell Rhodes 1.2.840.1 [id number] 078300 0577 Methodi 00:00:00 00:00:00 Sean Moss 81129.1.[address] 3.430.2.7 Hospit a .3.193145 l .8 2021-08-03 2021-08-03 Lowell Rhodes 1.2.840.1 [id number] 058901 4752 Methodi 00:00:00 00:00:[address] Sean Moss 11326.1.[address] 3.430.2.7 Hospit a .3.437849 l .8 2021-07-30 2021-07-30 Telemedici Sukh 1.2.840.1 [id number] 948 6969599 Methodi 15:00:00 16:12:34 jourdan Kennedy 11136.1.[address] B. 3.430.2.7 Hospit a .3.280174 l .8 2021-07-30 2021-07-30 Telephone Sukh, 1.2.840.1 [id number] 2099 055587 Methodi 00:00:00 00:00:[address] B. 3.430.2.7 Hospit a .3.277887 l .8 2021-07-28 2021-07-28 Documentat Elsy, 1.2.840.1 [id number] 583 [id number] Methodi 00:00:00 00:00:00 ion Judy Eric 58369.1.1 [address] t 3.430.2.7 Hospit a .3.922117 l .8 2021-07-23 2021-07-23 Telephone Sukh, 1.2.840.1 [id number] 2099 579310 Methodi 00:00:00 00:00:[address] B. 3.430.2.7 Hospit a .3.564205 l .8 2021-07-13 2021-07-13 Orders Vickie, 1.2.840.1 [id number] 671553 0889 Methodi 00:00:00 00:00:00 Only Albert 84315.1.[address] Foster 3.430.2.7 Hospit a .3.137201 l .8 2021-06-27 2021-07-04 Emergency Jami 1.2.840.1 1 [id number] Methodi 13:07:00 20:34:00 Albert Johnston 95503.1.[address] Terri, Umar 3.430.2.7 Hos ezekiel .3.411785 l .8 2021-06-27 2021-06-27 Documentat Coby Doan 1.2.840.1 [id number] 482 [id number] Methodi 00:00:00 00:00:00 ion Judith 28617.1.[address] 3.430.2.7 Hospit a .3.274581 l .8 2021-06-22 2021-06-22 RefMaira Munoz 1.2.840.1 [id number] 21 [id number] Methodi 00:00:00 00:00:[address] 3.430.2.7 Hospit a .3.387882 l .8 2021-06-21 2021-06-21 Outpatient R ZION [facility] [id number] Univers 11:15:00 13:02:13 [facility] 2021-06-21 2021-06-21 [facility] [id number] Univers 11:15:00 13:02:13 [facility] 2021-06-21 2021-06-21 [facility] 1.2.686.232 [id number] Univers 11:15:00 13:02:13 Visit [facility] 350.1.13.10 it y of [facility] 4.2.7.2.686 Anurag as SHALONDA?BLEA [phone] [address] MEDICAL OFFICE BUILDING 2021-06-18 2021-06-18 RefCoby Mackay 1.2.840.1 [id number] 6572 Methodi 00:00:00 00:00:[address] 3.430.2.7 Hospit a .3.477727 l .8 2021-06-15 2021-06-15 RefMaira Munoz 1.2.840.1 [id number] 21 [id number] Methodi 00:00:00 00:00:[address] 3.430.2.7 Hospit a .3.338289 l .8 2021-06-15 2021-06-15 Maira Landa 1.2.840.1 [id number] 21 [id number] Methodi 00:00:00 00:00:[address] 3.430.2.7 Hospit a .3.533796 l .8 2021-06-06 2021-06-06 Remote Jacqueline, 1.2.840.1 [id number] 74783 24411 Methodi 00:00:00 00:00:00 Monitoring Cat 86740.1.1 713 s t 3.430.2.7 Hospit a .3.902935 l .8 2021-06-05 2021-06-05 Office Franki Coby 1.2.840.1 [id number] 1920 Methodi 14:00:00 14:20:00 Visit Judith 38125.1.[address] 3.430.2.7 Hospit a .3.336403 l .8 2021-06-05 2021-06-05 Outpatient COBY DOAN [facility] [id number] [address] [place] 00:00:00 00:00:[address] 2021-06-05 2021-06-05 Travel 1.2.840.1 1.2.890.117 7197 085515 Methodi 00:00:00 00:00:[address] 3.430.2.7 0.2.7.3.698 Ho spita .3.455566 084.8 l .8 2021-05-25 2021-05-25 Refill Maira Chen 1.2.840.1 [id number] 21 [id number] Methodi 00:00:00 00:00:[address] 3.430.2.7 Hospit a .3.403951 l .8 2021-05-11 2021-05-11 Refill Coby Doan 1.2.840.1 [id number] 929445 4656 Methodi 00:00:00 00:00:[address] 3.430.2.7 Hospit a .3.625062 l .8 2021-05-11 2021-05-11 Refill Krunal 1.2.840.1 [id number] 030392 7412 Methodi 00:00:00 00:00:[address] 3.430.2.7 Hospit a .3.161266 l .8 2021-05-10 2021-05-10 Dede Luz 1.2.840.1 [id number] 2100 038407 Methodi 00:00:00 00:00:[address] B. 3.430.2.7 Hospit a .3.272113 l .8 2021-05-04 2021-05-04 Refill Sukh, 1.2.840.1 [id number] 441725 4296 Methodi 00:00:00 00:00:[address] B. 3.430.2.7 Hospit a .3.472011 l .8 2021-05-04 2021-05-04 Refill Trisha, 1.2.840.1 [id number] 069531 1712 Methodi 00:00:00 00:00:00 Sean Moss 45531.1.[address] 3.430.2.7 Hospit a .3.865526 l .8 2021-05-03 2021-05-03 Office Sukh, 1.2.840.1 [id number] 169454 0150 Methodi 14:30:00 15:02:40 Visit Marcia 56896.1.[address] B. 3.430.2.7 Hospit a .3.420296 l .8 2021-05-03 2021-05-03 Travel 1.2.840.1 1.2.821.385 6176 003711 Methodi 00:00:00 00:00:[address] 3.430.2.7 0.2.7.3.698 Ho spita .3.332070 084.8 l .8 2021-04-25 2021-04-25 [facility], 1.2.840.1 [id number] Methodi 00:00:00 00:00:00 Monitoring Cat 34971.1.1 511 s t 3.430.2.7 Hospit a .3.539266 l .8 2021-04-13 2021-04-13 Kevin Pitt, 1.2.840.1 [id number] 2100 123935 Methodi 00:00:00 00:00:00 Only Hannah 87179.1.[address] 3.430.2.7 Hospit a .3.786592 l .8 2021-04-03 2021-04-03 Telephone Jessika, 1.2.840.1 [id number] 2 [id number] Methodi 00:00:00 00:00:[address] 3.430.2.7 Hospit a .3.435544 l .8 2021-04-02 2021-04-02 Telephone Jessika, 1.2.840.1 [id number] 2 [id number] Methodi 00:00:00 00:00:[address] 3.430.2.7 Hospit a .3.977175 l .8 2021-03-30 2021-03-30 Telephone Rodrigue, 1.2.840.1 [id number] 443 0852680 Methodi 00:00:00 00:00:[address] 3.430.2.7 Hospit a .3.644113 l .8 2021-03-28 2021-03-28 Office Sukh, 1.2.840.1 848812920 023101 5497 Methodi 08:30:00 09:14:58 Visit Marcia 50225.1.[address] B. 3.430.2.7 Hospit a .3.964256 l .8 2021-03-27 2021-03-27 Travel 1.2.840.1 1.2.377.966 1379 952550 Methodi 00:00:00 00:00:[address] 3.430.2.7 0.2.7.3.698 Ho spita .3.163293 084.8 l .8 2021-03-27 2021-03-27 Telephone Sukh, 1.2.840.1 [id number] 2100 376613 Methodi 00:00:00 00:00:[address] B. 3.430.2.7 Hospit a .3.118702 l .8 2021-03-27 2021-03-27 Coby Mandujano 1.2.840.1 [id number] 371638 9464 Methodi 00:00:00 00:00:[address] 3.430.2.7 Hospit a .3.374920 l .8 2021-03-21 2021-03-21 Orders Sukh, 1.2.840.1 [id number] 175618 2698 Methodi 00:00:00 00:00:00 Only Marcia 64129.1.[address] B. 3.430.2.7 Hospit a .3.726735 l .8 2021-03-20 2021-03-20 Telephone Micheline-Andrea 1.2.840.1 [id number] Methodi 00:00:00 00:00:00 ris, Barbara 49381.1.1 099 s t 3.430.2.7 Hospit a .3.168981 l .8 2021-03-19 2021-03-19 Telephone Micheline-Andrea 1.2.840.1 [id number] Methodi 00:00:00 00:00:00 ris, Barbara 56330.1.1 578 s t 3.430.2.7 Hospit a .3.836494 l .8 2021-03-19 2021-03-19 Telephone Micheline-Andrea 1.2.840.1 [id number] 0192039263 Methodi 00:00:00 00:00:00 ris, Barbara 96269.1.1 931 s t 3.430.2.7 Hospit a .3.833779 l .8 2021-03-16 2021-03-16 [facility] Micheline-Andrea 1.2.840.1 [id number] 21 [id number] Methodi 00:00:00 00:00:00 ris, Barbara 88366.1.1 699 s t 3.430.2.7 Hospit a .3.436603 l .8 2021-03-16 2021-03-16 Telephone Micheline-Andrea 1.2.840.1 [id number] Methodi 00:00:00 00:00:00 ris, Barbara 51568.1.1 162 s t 3.430.2.7 Hospit a .3.446849 l .8 2021-03-15 2021-03-15 Remote Jacqueline, 1.2.840.1 [id number] 37332 Methodi 00:00:00 00:00:00 Monitoring Cat 92512.1.1 038 s t 3.430.2.7 Hospit a .3.533105 l .8 2021-03-03 2021-03-03 Refill Sukh, 1.2.840.1 475992223 833953 7708 Methodi 00:00:00 00:00:[address] B. 3.430.2.7 Hospit a .3.927647 l .8 2021-03-02 2021-03-02 Office Coby Doan 1.2.840.1 [id number] 840261 7912 Methodi 14:00:00 15:08:22 Visit Judith 50613.1.[address] 3.430.2.7 Hospit a .3.727078 l .8 2021-03-02 2021-03-02 Travel 1.2.840.1 1.2.965.187 5669 959032 Methodi 00:00:00 00:00:[address] 3.430.2.7 0.2.7.3.698 Ho spita .3.257770 084.8 l .8 2021-02-18 2021-02-18 Refill Coby Doan 1.2.840.1 [id number] 954345 2956 Methodi 00:00:00 00:00:[address] 3.430.2.7 Hospit a .3.014461 l .8 2021-02-17 2021-02-17 Refill Coby Doan 1.2.840.1 [id number] 305494 5871 Methodi 00:00:00 00:00:[address] 3.430.2.7 Hospit a .3.573635 l .8 2021-02-10 2021-02-10 Refill Rhodes, 1.2.840.1 [id number] 1632 Methodi 00:00:00 00:00:00 Sean R. [address]262.1.[address] 3.430.2.7 Hospit a .3.708073 l .8 2021-02-05 2021-02-05 Refill Trisha, 1.2.840.1 [id number] 9266 Methodi 00:00:00 00:00:00 Sean [address]. [address]12.1.[address] 3.430.2.7 Hospit a .3.363816 l .8 2021-01-29 2021-01-29 Telephone Shoaib, 1.2.840.1 [id number] Methodi 00:00:00 00:00:[address] 3.430.2.7 Hospit a .3.925294 l .8 2021-01-29 2021-01-29 Remote Jacqueline, 1.2.840.1 [id number] 00632 Methodi 00:00:00 00:00:00 Monitoring Cat 54616.1.1 543 s t 3.430.2.7 Hospit a .3.374046 l .8 2021-01-12 2021-01-12 Outpatient MAIRA CHEN [facility] [id number] [place] 00:00:00 00:00:[address] 2021-01-03 2021-01-03 Outpatient [facility] [id number] 298 [place] 00:00:00 00:00:00 JAVIER [address] 2021-01-03 2021-01-03 Outpatient [facility] [id number] 298 [place] 00:00:00 00:00:00 JAIVER [address] 2021-01-01 2021-01-01 Office TRINH Pantoja 6400 1.2.109.262 2587 89740 11:18:17 12:10:[address] 350.1.13.58 9.2.7.2.686 [id number] 1 2021-01-01 2021-01-01 Office TRINH Pantoja 6400 1.2.396.403 2829 12185 [place] 11:18:17 12:10:[address] 350.1.13.[address] [facility] 9.2.7.2.686 [id number] 1 2020-12-27 2020-12-27 Telephone TRINH Pantoja [facility] 1.2.840.114 124 [id number] [place] 00:00:00 00:00:00 Viraj SUGAR 350.1.13.58 [facility] 9.2.7.2.686 [address] [id number] AND 1 WOMENS 2020-11-10 2020-11-10 Outpatient COBY DOAN [facility] [id number] 158 [place] 00:00:00 00:00:[address] 2020-11-01 2020-11-01 Outpatient SUKH [facility] [id number] 500 [place] 00:00:00 00:00:00 MARCIA [address] 2020-10-23 2020-10-27 Inpatient AIXA, [facility]4 [id number] 83 [place] 00:00:00 00:00:00 PAULY [address] 2020-09-22 2020-09-22 Outpatient COBY DOAN [facility] [id number] 729 [place] 00:00:00 00:00:[address] 2020-08-29 2020-09-11 Inpatient AIXA, [facility] [id number] 88 [place] 00:00:00 00:00:00 PAULY [address] 2020-08-25 2020-08-31 Outpatient COBY DOAN [facility] [id number] 466 [place] 00:00:00 00:00:[address] 2020-08-15 2020-08-19 Inpatient XU, [facility] 064 [id number] 17 [place] 00:00:00 00:00:00 MARIAH [address] 2020-07-28 2020-07-28 Outpatient COBY DOAN [facility] [id number] 629 [place] 00:00:00 00:00:[address] 2020-07-28 2020-07-28 Outpatient COBY DOAN [facility] [id number] 152 [place] 00:00:00 00:00:[address] 2020-07-14 2020-07-14 Outpatient MAIRA CHEN [facility] [id number] [place] 00:00:00 00:00:[address] 2020-07-13 2020-07-13 Outpatient SUKH, [facility] [id number] 552 [place] 00:00:00 00:00:00 MARCIA [address] 2020-07-13 2020-07-13 Outpatient MARIA EUGENIA, [facility] [id number] [place] 00:00:00 00:00:00 SIRAYA [address] 2020-07-12 2020-07-12 Outpatient [facility] [id number] 315 [place] 00:00:00 00:00:[address] 2020-05-26 2020-05-26 Outpatient COBY DOAN [facility] [id number] 938 [place] 00:00:00 00:00:[address] 2020-05-23 2020-05-23 Outpatient DELAFLOR-SA [facility] [id number] [place] 00:00:00 00:00:00 NTAANA, [address] 2020-05-08 2020-05-18 Inpatient KEENAN, [facility] 060 [id number] 54 [place] 00:00:00 00:00:00 ANETTE [address] 2020-05-05 2020-05-05 Outpatient COBY DOAN [facility] [id number] 077 [place] 00:00:00 00:00:[address] 2020-05-03 2020-05-03 Outpatient SUKH [facility] [id number] 662 [place] 00:00:00 00:00:00 MARCIA [address] 2020-04-26 2020-04-26 Outpatient ALIDA [facility] 759 [id number] 429 [place] 00:00:00 00:00:00 ASHRITH [address] 2020-04-24 2020-04-24 Outpatient FRANKI COBY [facility] [id number] 918 [place] 00:00:00 00:00:[address] 2020-04-14 2020-04-14 Outpatient FRANKI OCBY [facility] [id number] 001 [place] 00:00:00 00:00:[address] 2020-04-03 2020-04-03 Outpatient Daniel_T VFP VFP [id number] 03-26 [facility] 01:57:00 01:57:00 [id number] Family Practic e 2020-03-17 2020-03-17 Outpatient COBY DOAN [facility] [id number] 022 [place] 00:00:00 00:00:[address] 2020-03-09 2020-03-09 Outpatient DELAFLOR-SA [facility] [id number] [place] 00:00:00 00:00:00 NTAANA, [address] 2020-02-24 2020-03-02 Inpatient COBY DOAN [facility] 021 [id number] 94 [place] 00:00:00 00:00:[address] 2020-02-23 2020-02-23 Outpatient COBY DOAN [facility] [id number] 552 [place] 00:00:00 00:00:[address] 2020-02-11 2020-02-11 Outpatient COBY DOAN [facility] [id number] 041 [place] 00:00:00 00:00:[address] 2020-02-04 2020-02-04 Outpatient SUKH [facility] [id number] 515 [place] 00:00:00 00:00:00 MARCIA [address] 2020-01-20 2020-01-25 Inpatient SAVANA [facility] 064 [id number] 86 [place] 00:00:00 00:00:00 AMITKUMAR [address] 2020-01-12 2020-01-12 Outpatient MAIRA CHEN [facility] [id number] [place] 00:00:00 00:00:[address] 2019-12-31 2019-12-31 Outpatient COBY DOAN [facility] [id number] 751 [place] 00:00:00 00:00:[address] 2019-12-31 2019-12-31 Outpatient COBY DOAN [facility] [id number] 617 [place] 00:00:00 00:00:[address] 2019-12-27 2019-12-27 Outpatient TRISHA [facility] [id number] 450 [place] 00:00:00 00:00:00 SEAN [address] 2019-12-17 2019-12-18 Outpatient BRITTANY [facility] [id number] 361 [place] 00:00:00 00:00:00 MERCY [address] 2019-11-18 2019-11-18 Outpatient KELVIN, [facility] [id number] 293 [place] 00:00:00 00:00:00 MAHWAVETO [address] 2019-11-04 2019-11-04 Outpatient SUKH, [facility] [id number] 930 [place] 00:00:00 00:00:00 MARCIA [address] 2019-10-19 2019-10-19 Outpatient SUKH, [facility] [id number] 794 [place] 00:00:00 00:00:00 MARCIA [address] 2019-09-17 2019-09-17 Outpatient COBY DOAN [facility] [id number] 175 [place] 00:00:00 00:00:[address] 2019-09-02 2019-09-09 Inpatient AIXA, [facility] 060 [id number] 04 [place] 00:00:00 00:00:00 PAULY [address] Results Test Description Test Time Test Comments Results Result Comments Source Comprehensive metabolic panel 2022-07-24 17:53:00 Test Item Value Reference Range Interpretation Comme nts Glucose (test code = 118 mg/dL 65-99 H Fastin g reference 2345-7) interval For so meone without known d iabetes, a glucose valuebe tween 100 and 125 mg/dL i s consistent withprediabetes and should be confi rmed with afollow-up test . BUN (test code = 3094-0) 47 mg/dL 7-25 H Creatinine (test code = 2.24 mg/dL 0.70-1.22 H 2160-0) eGFR (test code = See_Comment L [place] [address]-5) CKD-EPI 2020 eq uation. To calculate the n ew eGFR from a previous Creatinine or C ystaraúl Cresult, go to https://www.kid celso.org/pr ofessionals/kdo qi/gfr%5Fc alculator [Auto mated message] The sy stem which generated this result transmitted ref erence range: > OR = 6 0 mL/min/1.73m2. The reference range was not used to interpr et this result as normal/abnormal . BUN/creatinine ratio See_Comment [Autom ated message] The (test code = 3097-3) system which generated this result tra nsmitted reference range : 6 - 22 (calc). The ref erence range was not u sed to interpret this result as normal/abnormal . Sodium (test code = 138 mmol/L 610-335 7005-2) Potassium (test code = 4.0 mmol/L 3.5-5.3 2823-3) Chloride (test code = 102 mmol/L 98-110 2075-0) CO2 (test code = 8-9) 27 mmol/L 20-32 Calcium (test code = 8.1 mg/dL 8.6-10.3 L 95743-2) Protein (test code = 6.2 g/dL 6.1-8.1 2885-2) Albumin, S (test code = 3.3 g/dL 3.6-5.1 L 1751-7) Globulin, total (test See_Comment [Auto mated message] The code = 33573-9) system which generated this result tra nsmitted reference range : 1.9 - 3.7 g/dL (calc) . The reference range was not used to interpr et this result as normal/abnormal . Albumin/globulin ratio See_Comment [Aut omated message] The (test code = 1759-0) system which generated this result tra nsmitted reference range : 1.0 - 2.5 (calc). The reference range was not u sed to interpret this result as normal/abnormal . Total bilirubin (test 0.4 mg/dL 0.2-1.2 code = 1975-2) Alkaline phosphatase 81 U/L 35-144 (test code = 6768-6) AST (test code = 1920-8) 10 U/L 10-35 ALT (test code = 1742-6) 10 U/L 9-46 RAC (test code = RAC) Performing Organization Information: Site ID: RGA Name: [facility] Address: [address] [place] [address] Director: Rajan Yates Lab Interpretation (test Abnormal code = 73751-6) [facility] natriuretic qvlelry4633-19-33 17:53:00 Test Item Value Reference Interpretation Comments Range BNP (test code = 409 pg/mL See_Comment H B[place] 72875-9) with age in the generalpopulati on with the highes t values seen inindividuals g reater than 75 years o f age.Reference: J. Am. Rodolfo. Cardiol. 2002; 40:976-982. [Automated mess age] The system whic h generated this result transmitted ref erence range: <=100. T he reference range was not used to int erpret this result as normal/abnormal . RAC (test code = Performing RAC) Organization Information: Site ID: [facility] Name: [facility] Address: [address] [place] [address] Director: Rajan Yates Lab Interpretation Abnormal (test code = 60691-7) [facility] [id number] 17:53:00 Test Item Value Reference Range Interpretation Comments TSH (test code = See_Comment H [Automated 3876-3) message] The system which generated this result transmitted reference range : 0.40 - 4.50 mIU/L. The reference range was not used to interpret this result as normal/abnormal . RAC (test code = Performing RAC) Organization Information: Site ID: [facility] Name: [facility] Address: [address] [place], [place] [id number] Director: Rajan Yates Lab Interpretation Abnormal (test code = 12082-5) [facility] and njifnjknmuwt9260-35-97 17:53:00 Test Item Value Reference Range Interpretation Comments WBC (test code = See_Comment [Automated 2090-2) message] The system which generated this result transmitted reference range : 3.8 - 10.8 Thousand/uL. Th e reference range was not used to interpret this result as normal/abnormal . RBC (test code = See_Comment L [Automated 409-8) message] The system which generated this result transmitted reference range : 4.20 - 5.80 Million/uL. The reference range was not used to interpret this result as normal/abnormal . HGB (test code = 9.6 g/dL 13.2-17.1 L 718-7) HCT (test code = 30.0 % 38.5-50.0 L 4544-3) MCV (test code = 92.0 fL 80.0-100.0 787-2) MCH (test code = 29.4 pg 27.0-33.0 785-6) MCHC (test code = 32.0 g/dL 32.0-36.0 786-4) RDW (test code = 15.4 % 11.0-15.0 H 788-0) Platelet count (test See_Comment [Autom ated code = 777-3) message] The system which generated this result transmitted reference range : 140 - 400 Thousand/uL. Th e reference range was not used to interpret this result as normal/abnormal . MPV (test code = 10.4 fL 7.5-12.5 776-5) Neutrophils, See_Comment [Automated absolute (test code message] The = 751-8) system which generated this result transmitted reference range : 1,500 - 7,800 cells/uL. The reference range was not used to interpret this result as normal/abnormal . Lymphocytes, See_Comment [Automated absolute (test code message] The [...] this result as normal/abnormal . Neutrophils (test 67.4 % code = 770-8) Lymphocytes (test 22.8 % code = 736-9) Monocytes (test code 7.4 % = 5905-5) Eosinophils (test 1.6 % code = 713-8) Basophils + RC (test 0.8 % code = 706-2) RAC (test code = Performing RAC) Organization Information: Site ID: A [facility]: [facility] Address: [address] [place] [address] Director: Rajan Yates Lab Interpretation Abnormal (test code = 34900-7) [facility] [id number] 19:02:00 Test Item Value Reference Range Interpretation Comments POC glucose (test code = 130 mg/dL 65-99 H Ope rator Name: [id number]) Real Doyle ID: [id number] able: [facility] 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 Interpretation (test Abnormal code = 47206-5) [facility] cqyxbfd8515-95-56 19:07:00 Test Item Value Reference Range Interpretation Comments Urine culture Mixed feliz Specimen isolate (test <=10-3 col/cc InformationSp ecimen code = 98917-5) Source: Urin eSpecimen Site: Clean cat [facility] 12 khtg8420-23-82 22:40:58 Test Item Value Reference Range Interpretation Comments Ventricular rate (test code = 253) Atrial rate (test code = 255) ID interval (test code = 266) QRSD interval (test code = 260) QT interval (test code = 264) QTC interval (test code = 265) P axis 1 (test code = 267) QRS axis 1 (test code = 268) T wave axis (test code = 270) EKG impression (test AV dual-paced code = 273) rhythm-Abnormal ECG-- [facility] Preliminary Interpretation - Not an Ojhtz4964-12-40 01:16:58 Test Item Value Reference Range Interpretation Comments IRAJ (test code = IRAJ) Jami Dubois MD 06/23/2022 2:48 [facility] Preliminary Interpretation - Not an OrderPerformed by: Jami Dubois MDAuthorized by: Jami Dubois MD ECG reviewed by ED Physician in the absence of a burr bench operator: yes Interpretation: Interpretation: abnormal Rate: ECG rate: 80 ECG rate assessment: normal Rhythm: Rhythm: paced Pacing: Type of pacing: AVQRS: QRS axis: NormalST segments: ST segments: Normal Lab Interpretation Abnormal (test code = 56181-4) Jehovah'[employer] Witness DytqjxruJYKM-NaC-2 (COVID-19) RNA [Presence] in Respiratory specimen by ANDREW with probe walmglkkz1236-50-33 22:42:00 Test Item Value Reference Range Interpretation Comments SARS-CoV-2 (COVID-19) RNA Not detected [Presence] in Respiratory specimen by ANDREW with probe detection (test code = 92501-8) 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 employed in a Unknown healthcare setting (test code = 81983-8) Whether the patient has symptoms Unknown related to condition of interest (test code = 39829-0) Whether the patient was Unknown hospitalized for condition of interest (test code = 89605-8) Whether the patient was admitted Unknown to intensive care unit (ICU) for condition of interest (test code = 99282-5) Whether patient resides in a Unknown congregate care setting (test code = 75459-8) status (test code = Unknown 53511-2) Date and time of symptom onset Unknown (test code = 47993-2) JOHN AHUJARS-CoV-2 (COVID-19) RNA [Presence] in Respiratory specimen by ANDREW with probe deqftxmot0828-20-88 00:27:35 Test Item Value Reference Range Interpretation Comments SARS-CoV-2 (COVID-19) RNA Not detected [Presence] in Respiratory specimen by ANDREW with probe detection (test code = 35431-5) 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 employed in a Unknown healthcare setting (test code = 20374-5) Whether the patient has symptoms Unknown related to condition of interest (test code = 07802-5) Whether the patient was Unknown hospitalized for condition of interest (test code = 71294-0) Whether the patient was admitted Unknown to intensive care unit (ICU) for condition of interest (test code = 24542-3) Whether patient resides in a Unknown congregate care setting (test code = 00108-0) status (test code = Unknown 29288-0) Date and time of symptom onset Unknown (test code = 45322-7) JOHN SOSACv stress rmhk1556-77-75 20:38:42 Test Item Value Reference Range Interpretation Comments Resting HR (test code = 7136194428) Resting BP (test code 120&80 = 4122449474) Peak MET Achieved (test code = 7844936407) Protocol Name (test Lexiscan code = 9490222994) Time in Exercise 00:01:00 Phase (test code = 1273731574) Max Systolic BP (test code = 8325149466) Max Diastolic BP (test code = 2937386667) Max Heart Rate (test code = 5567270578) Max Predicted Heart Rate (test code = 6191112896) Target HR Formula (220 - Age)*100% (test code = 9639065303) Test Indication (test Dyspnea code = 7822167271) Arrhy During Ex (test code = 7852122495) ECG Interp Before EX (test code = 4962539214) ECG Interp During Ex (test code = 3155317897) Ex Summary Comment (test code = 1807060020) Overall HR Response to Exercise (test code = 5038255111) Overall BP Response To Exercise (test code = 4156535473) Reason for Protocol Complete Termination (test code = 7137158923) Stress Test -Waveform interpreted in Impression (test code report associated with = 6123202013) image study. No interpretation is provided as part of this Stress ECG report.- Jehovah'S Witness OeqdiekbLVXJ-QrW-3 (COVID-19) RNA [Presence] in Respiratory specimen by ANDREW with probe lsxmdgvny4618-47-35 03:25:02 Test Item Value Reference Range Interpretation Comments SARS-CoV-2 (COVID-19) RNA Not detected [Presence] in Respiratory specimen by ANDREW with probe detection (test code = 79174-2) 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 employed in a Unknown healthcare setting (test code = 82310-7) Whether the patient has symptoms Unknown related to condition of interest (test code = 34724-0) Whether the patient was Unknown hospitalized for condition of interest (test code = 40612-4) Whether the patient was admitted Unknown to intensive care unit (ICU) for condition of interest (test code = 29179-6) Whether patient resides in a Unknown congregate care setting (test code = 91984-4) status (test code = Unknown 55999-9) Date and time of symptom onset Unknown (test code = 01779-6) [facility] njupm6534-54-66 14:51:00 Test Item Value Reference Range Interpretation Comments Glucose (test code = 129 mg/dL 65-99 H Fastin g 2345-7) reference interval For someone without known diabetes, a glucosevalue >1 25 mg/dL indicates that they may havediabetes an d this should be confirmed with afollow-up test . BUN (test code = 135 mg/dL 7-25 H Results ve rified 3094-0) by repeat analysis on dilution. Creatinine (test 3.89 mg/dL 0.7-1.22 H Verified by code = 2160-0) repeat analys is. eGFR (test code = See_Comment L The eGFR i s based 8257) on the CKD-EPI 2020 equation. To calculate the n ew eGFR from a previous Creatinine or Cystatin Cresul t, go to https://www.kid ne y.org/professerum frank/kdoqi/gfr%5F ca lculator [Automated message] The system which generated this result transmitted reference range : > OR = 60 mL/min/1.73m2. The reference range was not used to interpr et this result as normal/abnormal . BUN/creatinine ratio See_Comment H [Autom ated (test code = 3097-3) message ] The system which generated this result transmitted reference range : 6 - 22 (calc). The reference range was not used to interpr et this result as normal/abnormal . Sodium (test code = 137 mmol/L 475-687 5965-2) Potassium (test code 3.2 mmol/L 3.5-5.3 L = 2823-3) Chloride (test code 89 mmol/L 98-110 L = 2075-0) CO2 (test code = 37 mmol/L 20-32 H 2027-9) Calcium (test code = 9.1 mg/dL 8.6-10.3 82307-9) RAC (test code = Performing RAC) Organization Information: Site ID: RGA Name: [facility] Lab Address: [address] [place] [address] Director: Rajan Yates Lab Interpretation Abnormal (test code = 39055-7) Rachael Mckinney, [id number] 14:51:00 Test Item Value Reference Range Interpretation Comments T4, free (test code 1.6 ng/dL 0.8-1.8 = 3024-7) RAC (test code = Performing Organization RAC) Information: Site ID: [facility] Name: [facility] Address: [address] [place] [phone] Director: Rajan Yates [facility] afvhmro7752-12-15 14:51:00 Test Item Value Reference Range Interpretation Comments TSH (test code = See_Comment H [Automated 3016-3) message] The system which generated this result transmitted reference range : 0.40 - 4.50 mIU/L. The reference range was not used to interpret this result as normal/abnormal . RAC (test code = Performing RAC) Organization Information: Site ID: [facility] Name: [facility] Lab Address: [address] [place] [address] Director: Rajan Yates Lab Interpretation Abnormal (test code = 95231-3) [facility] and opdbpiybiakn0315-12-18 14:51:00 Test Item Value Reference Range Interpretation [...] RAC) Organization Information: Site ID: RGA Name: [facility] Address: [address] [place] [address] Director: Rajan Yates Lab Interpretation Abnormal (test code = 28767-2) [facility] 12 [id number] 01:18:01 Test Item Value Reference Range Interpretation Comments Ventricular rate (test code = 253) Atrial rate (test code = 255) ID interval (test code = 266) QRSD interval (test code = 260) QT interval (test code = 264) QTC interval (test code = 265) QRS axis 1 (test code = 268) T wave axis (test code = 270) EKG impression (test AV dual-paced code = 273) rhythm-Biventricular pacemaker detected-Abnormal ECG-In automated comparison with ECG of 20-NOV-2021 16:15,-Vent. rate has decreased BY 2 BPM- [place] [address] [id number] 01:51:03 Test Item Value Reference Range Interpretation Comments Ventricular rate (test code = 253) Atrial rate (test code = 255) ID interval (test code = 266) QRSD interval [...] Chiu MD ([id number]) on 11/20/2021 8:50:59 PM [place] [address] xzlq8746-12-31 01:51:03 Test Item Value Reference Range Interpretation Comments Ventricular rate (test code = 253) Atrial rate (test code = 255) ID interval (test code = 266) QRSD interval [...] Chiu MD ([id number]) on 11/20/2021 8:50:59 PM [facility] xaotw6834-17-42 09:45:00 Test Item Value Reference Range Interpretation Comments Uric acid (test code 13.2 mg/dL 4-8 H Therape utic = 3084-1) target for gout patients: <6.0 mg/dL RAC (test code = Performing RAC) Organization Information: Site ID: RGA Name: [facility] Address: [address] [place] [address] Director: Rajan Yates Lab Interpretation Abnormal (test code = 40965-6) [facility] metabolic [id number] 09:45:00 Test Item Value Reference Interpretation Comments [...] EGFR Non-Afr. See_Comment L [Automated me ssage] [place] Islander (test code The syst em which = 2775) generated this result transmit julien reference range : > OR = 60 mL/min/1.73m2. The reference range was not used to interpret this result as normal/abnormal . EGFR See_Comment L [Automated mes asya] [place] Islander (test code The syst em which = 7464) generated this result transmit julien reference range [...] . Sodium (test code = 138 mmol/L 766-556 5445-2) Potassium (test 4.5 mmol/L 3.5-5.3 code = 2823-3) Chloride (test code 99 mmol/L 98-110 = 2075-0) CO2 (test code = 28 mmol/L 20-32 8-9) Calcium (test code 7.5 mg/dL 8.6-10.3 L = 04300-8) RAC (test code = Performing RAC) Organization Information: Site ID: RGA Name: [facility] Address: [address] [place] [address] Director: Rajan Yates Lab Interpretation Abnormal (test code = 98622-5) [place] [address], omrc6497-32-54 09:45:00 Test Item Value Reference Range Interpretation Comments T4, free (test code 1.2 ng/dL 0.8-1.8 = 3024-7) RAC (test code = Performing Organization RAC) Information: Site ID: [facility] Name: [facility] Address: [address] [place], [place] [address] Director: [facility] lhyvubo9729-72-37 09:45:00 Test Item Value Reference Range Interpretation Comments TSH (test code = See_Comment H [Automated 3016-3) message] The system which generated this result transmitted reference range : 0.40 - 4.50 mIU/L. The reference range was not used to interpret this result as normal/abnormal . RAC (test code = Performing RAC) Organization Information: Site ID: ASHANTI Name: [facility] Address: [address] [place] [address] Director: Rajan Yates Lab Interpretation Abnormal (test code = 60017-2) [facility] lompq0503-04-41 09:45:00 Test Item Value Reference Range Interpretation Comments Uric acid (test code 13.2 mg/dL 4.0-8.0 H Therape utic = 3084-1) target for gout patients: <6.0 mg/dL RAC (test code = Performing RAC) Organization Information: Site ID: ASHANTI [facility]: [facility] Address: [address] [place] [address] Director: Rajan Yates Lab Interpretation Abnormal (test code = 60490-9) [facility] with platelet and vadjbbqauzek8838-06-76 09:45:00 Test Item Value Reference Interpretation Comments Range WBC (test code = See_Comment [Automated message] 6690-2) The system [employer] generated this result transmitted ref erence range: 3.8 - 10 .8 Thousand/uL. Th e reference range was not used to int erpret this result as normal/abnormal . RBC (test code = See_Comment L [Automated message] 789-8) The system [employer] generated this result transmitted ref erence range: [...] 9.9 fL 7.5-12.5 776-5) Neutrophils, See_Comment [Automated Prevently] absolute (test code The syst em which = 751-8) generated this result transmitted ref erence range: 1,500 - 7,800 cells/uL. The reference range was not used to int erpret this result as normal/abnormal . Lymphocytes, See_Comment [Automated Prevently] absolute (test code The syst em which = 731-0) generated this result transmitted ref erence range: 850 - 3, 900 cells/uL. The reference range was not used to int erpret this result as normal/abnormal . Monocytes, absolute See_Comment [Automa Inn[employer] message] (test code = 742-7) The syst em which generated this result transmitted ref erence range: 200 - 95 0 cells/uL. The reference range was not used to int erpret this result as normal/abnormal . Eosinophils, See_Comment [Automated [employer] asya] absolute (test code The syst em which = 711-2) generated this result transmitted ref erence range: 15 - 500 cells/uL. The reference range was not used to int erpret this result as normal/abnormal . Basophils, absolute See_Comment [Ampriusa Innobits message] (test code = 704-7) The syst [...] RAC) Organization Information: Site ID: RGA Name: [facility] Address: [address] [place] [id number] Director: Rajan Yates Lab Interpretation Abnormal (test code = 97672-1) [facility] metabolic [id number] 09:45:00 Test Item Value Reference Interpretation Comments [...] EGFR Non-Afr. See_Comment L [Automated me ssage] Solomon Islander (test code The syst em which = 3485) generated this result transmit julien reference range : > OR = 60 mL/min/1.73m2. The reference range was not used to interpret this result as normal/abnormal . EGFR See_Comment L [Automated mes asya] [place] Islander (test code The syst em which = 5294) generated this result transmit julien reference range [...] . Sodium (test code = 138 mmol/L 840-660 6173-2) Potassium (test 4.5 mmol/L 3.5-5.3 code = 2823-3) Chloride (test code 99 mmol/L 98-110 = 2075-0) CO2 (test code = 28 mmol/L 20-32 2028-03) Calcium (test code 7.5 mg/dL 8.6-10.3 L = 57601-4) RAC (test code = Performing RAC) Organization Information: Site ID: [facility] Name: [facility] Address: [address] [place] [address] Director: Rajan Yates Lab Interpretation Abnormal (test code = 34492-7) [facility], yncu0414-52-83 09:45:00 Test Item Value Reference Range Interpretation Comments T4, free (test code 1.2 ng/dL 0.8-1.8 = 3024-7) RAC (test code = Performing Organization RAC) Information: Site ID: [facility] Name: [facility] Address: [address] [place] [phone] Director: Rajan [facility]ates [facility] HospitalThy[facility] stimulating pxoaqdf7160-54-05 09:45:00 Test Item Value Reference Range Interpretation Comments TSH (test code = See_Comment H [Automated 3016-3) message] The system which generated this result transmitted reference range : 0.40 - 4.50 mIU/L. The reference range was not used to interpret this result as normal/abnormal . RAC (test code = Performing RAC) Organization Information: Site ID: [facility] Name: [facility] Address: [address] [place] [address] Director: Rajan Yates Lab Interpretation Abnormal (test code = 38584-3) [facility] jnwqo8945-73-47 09:45:00 Test Item Value Reference Range Interpretation Comments Uric acid (test code 13.2 mg/dL 4.0-8.0 H Therape utic = 3084-1) target for gout patients: <6.0 mg/dL RAC (test code = Performing RAC) Organization Information: Site ID: [facility] Name: [facility] Lab Address: [address] [place] [address] Director: Rajan Yates Lab Interpretation Abnormal (test code = 08639-0) [facility] with platelet and oekvgdmwhukr3704-80-22 09:45:00 Test Item Value Reference Interpretation Comments Range WBC (test code = See_Comment [Automated message] 6690-2) The system [employer] generated this result transmitted ref erence range: 3.8 - 10 .8 Thousand/uL. Th e reference range was not used to int erpret this result as normal/abnormal . RBC (test code = See_Comment L [Automated message] 789-8) The system [employer] generated this result transmitted ref erence range: [...] 9.9 fL 7.5-12.5 776-5) Neutrophils, See_Comment [Automated [employer] asya] absolute (test code The syst em which = 751-8) generated this result transmitted ref erence range: 1,500 - 7,800 cells/uL. The reference range was not used to int erpret this result as normal/abnormal . Lymphocytes, See_Comment [Automated [employer] asya] absolute (test code The syst em [...] RAC) Organization Information: Site ID: RGA Name: [facility] Address: [address] [place] [phone] Director: Rajan Yates Lab Interpretation Abnormal (test code = 67364-5) [facility] [id number] 10:00:39 Test Item Value Reference Range Interpretation Comments CULTURE (BEAKER) (test No growth in 5 days code = 1095) Blood Culture - Routine (Left Venipuncture)2021-09-28 10:00:38 Test Item Value Reference Range Interpretation Comments Result (test code = No growth in 5 days 6463-4) [facility]2021-09-28 10:00:38 Test Item Value Reference Range Interpretation Comments Result (test code = No growth in 5 days 6463-4) [facility] [id number] 10:00:38 Test Item Value Reference Range Interpretation Comments CULTURE (BEAKER) (test No growth in 5 days code = 1095) Gdzywmbap6624-91-84 08:17:33 Test Item Value Reference Range Interpretation Comments Magnesium (test code 1.8 mg/dL 1.5-3.0 Specime n = 41258-0) slightly hemolyzed IRAJ (test code = Digital Photographer ID - IRAJ) DSENSONOperator ID - DSENSONOperator ID - DSENSONOperator ID - DSENSON Lab Interpretation Normal (test code = 96840-5) [facility]2022-03-25 08:17:33 Test Item Value Reference Range Interpretation Comments Magnesium (test code 1.8 mg/dL 1.5-3.0 Specime n = 69411-0) slightly hemolyzed IRAJ (test code = Digital Photographer ID - IRAJ) DSENSONOperator ID - DSENSONOperator ID - DSENSONOperator ID - DSENSON Lab Interpretation Normal (test code = 08458-8) [facility] 08:17[facility]33 Test Item Value Reference Range Interpretation Comments MAGNESIUM (BEAKER) 1.8 mg/dL 1.5-3.0 Specimen slightly (test code = 627) hemolyzed Digital Photographer ID - DSENSONOperator ID - DSENSONOperator ID - DSENSONOperator ID - DSENSONBasic Metabolic Vzawx4457-43-43 05:35:07 Test Item Value Reference Range Interpretation Comments Sodium (test code = 139 meq/L 625-508 1549-2) Potassium (test code = 3.6 meq/L 3.6-5.5 Speci men slightly 2823-3) hemolyzed Chloride (test code = 101 meq/L 98-106 2075-0) CO2 (test code = 24 meq/L 20-29 8-9) BUN (test code = 21 mg/dL 10-26 3094-0) Creatinine (test code 1.70 mg/dL 0.50-1.20 H Specim en slightly = 2160-0) hemolyzed Glucose (test code = 103 mg/dL 70-110 2345-7) Calcium (test code = 7.6 mg/dL 8.5-10.5 L 03101-8) EGFR (test code = 38 mL/min/1.73 [place] [address]-5) NOT ACCURATE CREATININE CLEARANCE IN PREDICTING GLOMERULAR FILTRATION RATE . 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 IRAJ (test code = IRAJ) Digital Photographer ID - [id number] ID - [id number] ID - EYNO63Dexmnqzc ID - MQIZ06Meoxphda ID - RTIP87Qzyoyskq ID - COIO45Peeyvuou ID - PJDO87Efderubq ID - YTCF60Thifgekw ID - BASC30Rgepygfx ID - KUQB98Tqxcpzzn ID - QNAQ13Fifctkuw ID - ZZPO04Nfjadbky ID - [id number] Lab Interpretation Abnormal (test code = 52983-7) [facility] Metabolic Inxij1078-92-74 05:35:07 Test Item Value Reference Range Interpretation Comments Sodium (test code = 139 meq/L 704-138 5841-2) Potassium (test code = 3.6 meq/L 3.6-5.5 Speci men slightly 2823-3) hemolyzed Chloride (test code = 101 meq/L 98-106 2075-0) CO2 (test code = 24 meq/L 20-29 8-9) BUN (test code = 21 mg/dL 10-26 3094-0) Creatinine (test code 1.70 mg/dL 0.50-1.20 H Specim en slightly = 2160-0) hemolyzed Glucose (test code = 103 mg/dL 70-110 2345-7) Calcium (test code = 7.6 mg/dL 8.5-10.5 L 76210-1) EGFR (test code = 38 mL/min/1.[place] [address]-9) NOT ACCURATE CREATININE CLEARANCE IN PREDICTING GLOMERULAR FILTRATION RATE . 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 IRAJ (test code = IRAJ) Digital Photographer ID - [id number] ID - [id number] ID - XYVX23Iyzvpoyg ID - OWIC36Kdskkuhr ID - WWSK95Reuibguy ID - NWDA47Wnvyirdd ID - ITVV98Unmcrirn ID - GSUJ93Ytzjzzcz ID - WVET42Hbjqhqtv ID - LPEI24Rhrfxoga ID - WOBO98Iuukxatc ID - PVKS55Sfljlbno ID - [id number] Lab Interpretation Abnormal (test code = 85264-3) [facility] METABOLIC [id number] 05:35:07 Test Item Value Reference Range Interpretation [...] S NOT APPLICABLE FOR DIALYSIS PATIEN TS. Digital Photographer ID - [id number] ID - EOUH68Uupguakj ID - MZXL09Sskmqfvr ID - QUHH28Wtkghqnw ID - GACC31Ffyznkni ID - ZFJI80Ccqetrpg ID - BUQB24Uikxwntm ID - THBC75Hnbnsyss ID - NJPI13Qfokpqid ID - TITU25Wptmdtop ID - BOCL39Tsfbslin ID - ZGOJ17Siyqtkhx ID - [id number] with platelet count + automated mazv7148-72-76 05:04:38 Test Item Value Reference Range Interpretation Comments WBC (test code = 6690-2) 8.5 See_Comment [A utomated message] The system [employer] generated this result transmitted ref erence range: 4.0 - 10 .0 K/L. The refe rence range was not u sed to interpret this result as normal/abnor mal. RBC (test code = 789-8) 3.52 See_Comment L [Au tomated message] The system [employer] generated this result transmitted ref erence range: 4.20 - 5 .80 M/L. The refe rence range was not u sed to interpret this result as normal/abnor mal. MCHC (test code = 786-4) 31.2 See_Comment L [A utomated message] The system [employer] generated this result transmitted ref erence range: [...] See_Comment [Aut omated message] 777-3) The system [employer] generated this result transmitted ref erence range: 150 - 43 0 K/CU MM. The referen ce range was not u sed to interpret this result as normal/abnor mal. MPV (test code = 10.6 fL 6.0-11.5 70975-0) nRBC (test code = 413) 0 See_Comment [Aut omated message] The system [employer] generated this result transmitted ref erence range: [...] See_Comment [Aut omated message] 670) The system [employer] generated this result transmitted ref erence range: 1.80 - 8 .00 K/L. The refe rence range was not u sed to interpret this result as normal/abnor mal. # Lymphs (test code = 3.00 See_Comment [Auto mated message] 414) The system [employer] generated this result transmitted ref erence range: 1.48 - 4 .50 K/L. The refe rence range was not u sed to interpret this result as normal/abnor mal. # Monos (test code = 0.68 See_Comment [Autom ated message] 415) The system [employer] generated this result transmitted ref erence range: 0.00 - 1 .30 K/L. The refe rence range was not u sed to interpret this result as normal/abnor mal. # Eos (test code = 416) 0.46 See_Comment [Au tomated message] The system [employer] generated this result transmitted ref erence range: 0.00 - 0 .50 K/L. The refe rence range was not u sed to interpret this result as normal/abnor mal. # Baso (test code = 417) 0.06 See_Comment [A utomated message] The system [employer] generated this result transmitted ref erence range: 0.00 - 0 .20 K/L. The refe rence range was not u sed to interpret this result as normal/abnor mal. Immature 0 % 0-0 Granulocytes-Relative (test code = 2801) Lab Interpretation (test Abnormal code = 25963-7) [facility] with platelet count + automated tdtf2747-26-92 05:04:38 Test Item Value Reference Range Interpretation Comments WBC (test code = 6690-2) 8.5 See_Comment [A utomated message] The system [employer] generated this result transmitted ref erence range: 4.0 - 10 .0 K/L. The refe rence range was not u sed to interpret this result as normal/abnor mal. RBC (test code = 789-8) 3.52 See_Comment L [Au tomated message] The system [employer] generated this result transmitted ref erence range: 4.20 - 5 .80 M/L. The refe rence range was not u sed to interpret this result as normal/abnor mal. MCHC (test code = 786-4) 31.2 See_Comment L [A utomated message] The system [employer] generated this result transmitted ref erence range: [...] See_Comment [Aut omated message] 777-3) The system [employer] generated this result transmitted ref erence range: 150 - 43 0 K/CU MM. The referen ce range was not u sed to interpret this result as normal/abnor mal. MPV (test code = 10.6 fL 6.0-11.5 50812-2) nRBC (test code = 413) 0 See_Comment [Aut omated message] The system [employer] generated this result transmitted ref erence range: [...] See_Comment [Aut omated message] 670) The system [employer] generated this result transmitted ref erence range: 1.80 - 8 .00 K/L. The refe rence range was not u sed to interpret this result as normal/abnor mal. # Lymphs (test code = 3.00 See_Comment [Auto mated message] 414) The system [employer] generated this result transmitted ref erence range: 1.48 - 4 .50 K/L. The refe rence range was not u sed to interpret this result as normal/abnor mal. # Monos (test code = 0.68 See_Comment [Autom ated message] 415) The system [employer] generated this result transmitted ref erence range: 0.00 - 1 .30 K/L. The refe rence range was not u sed to interpret this result as normal/abnor mal. # Eos (test code = 416) 0.46 See_Comment [Au tomated message] The system [employer] generated this result transmitted ref erence range: 0.00 - 0 .50 K/L. The refe rence range was not u sed to interpret this result as normal/abnor mal. # Baso (test code = 417) 0.06 See_Comment [A utomated message] The system [employer] generated this result transmitted ref erence range: 0.00 - 0 .20 K/L. The refe rence range was not u sed to interpret this result as normal/abnor mal. Immature 0 % 0-0 Granulocytes-Relative (test code = 2801) Lab Interpretation (test Abnormal code = 18915-4) [facility] W/PLT COUNT & AUTO [id number] 05:04:38 Test Item Value Reference Range Interpretation [...] PERCENT (BEAKER) (test code = 2801) POC-Glucose wwzia6680-53-37 04:47:27 Test Item Value Reference Range Interpretation Comments POC-Glucose Meter (test 98 mg/dL 70-110 : [facility] [address] [place] [address]: Digital Photographer/Techni kate ID = [id number] for Michelle Ward Lab Interpretation (test Normal code = 92329-6) [facility] pdggh5634-11-60 04:47:27 Test Item Value Reference Range Interpretation Comments POC-Glucose Meter (test 98 mg/dL 70-110 : [facility] 1538[facility] [address] [place] [address]: Digital Photographer/Techni kate ID = [id number] for Ed, Michelle Lab Interpretation (test Normal code = 37017-4) [facility] [id number] 04:47:27 Test Item Value Reference Range Interpretation Comments POC-GLUCOSE METER 98 mg/dL 70-110 : TESTED A T [facility] [address] (BEAKER) (test code = [address] [facility], 1538) [place] [address]: Digital Photographer/Techni kate ID = [id number] for Michelle Knight POCT-GLUCOSE [id number] 23:00:37 Test Item Value Reference Range Interpretation Comments POC-GLUCOSE METER 100 mg/dL 70-110 : TESTED A T [facility] [address] (BEAKER) (test code [address] [facility], = 1538) [place] [address]: Digital Photographer/Techni kate ID = [id number] for Michelle Knight POCT-GLUCOSE [id number] 15:20:37 Test Item Value Reference Range Interpretation Comments POC-GLUCOSE METER 126 mg/dL 70-110 H : TESTED A T [facility] [address] (BEAKER) (test code [address], = [address]) [place] [address]: Digital Photographer/Techni kate ID = [id number] for Will iams, Caro POCT-GLUCOSE [id number] 11:52:27 Test Item Value Reference Range Interpretation Comments POC-GLUCOSE METER 94 mg/dL 70-110 : TESTED A T [facility] [address] (BEAKER) (test code = [address]) [place] [address]: Digital Photographer/Techni kate ID = [id number] for Will iams, Caro POCT-GLUCOSE [id number] 06:47:47 Test Item Value Reference Range Interpretation Comments POC-GLUCOSE METER 92 mg/dL 70-110 : TESTED A T [facility] [address] (BEAKER) (test code = [address], [address]) [place] [address]: Digital Photographer/Techni kate ID = [id number] for Bridget Salas BASIC METABOLIC [id number] 05:34:54 Test Item Value Reference Range Interpretation [...] S NOT APPLICABLE FOR DIALYSIS PATIEN TS. Digital Photographer ID - NSUVAGIYAOperator ID - NSUVAGIYAOperator ID - NSUVAGIYAOperator ID - NSUVAGIYAOperatorID - NSUVAGIYAOperator ID - NSUVAGIYAOperator ID - NSUVAGIYAOperator ID - NSUVAGIYAOperator ID - NSUVAGIYAOperator ID - NSUVAGIYAOperator ID - NSUVAGIYAOperator ID - NSUVAGIYAOperator ID - NSUVAGIYA CBC W/PLT COUNT & AUTO [id number] 05:03:55 Test Item Value Reference Range Interpretation [...] PERCENT (BEAKER) (test code = 2801) POCT-GLUCOSE [id number] 21:46:46 Test Item Value Reference Range Interpretation Comments POC-GLUCOSE METER 163 mg/dL 70-110 H : TESTED A T [facility] [address] ([facility]) (test code [facility], = 1538) [place] [address]: Digital Photographer/Techni kate ID = [id number] for Mali Malloy POCT-GLUCOSE [id number] 17:12:16 Test Item Value Reference Range Interpretation Comments POC-GLUCOSE METER 132 mg/dL 70-110 H : Notified RN/MD: TESTED ([facility]) (test code AT [facility] [address] = 1538) [place] [address]: Digital Photographer/Techni kate ID = [id number] for Laws on, Latishia POCT-GLUCOSE [id number] 11:09:45 Test Item Value Reference Range Interpretation Comments POC-GLUCOSE METER 128 mg/dL 70-110 H : Notified RN/MD: TESTED ([facility]) (test code AT [facility] [address] = 1538) [place] [address]: Digital Photographer/Techni kate ID = [id number] for Laws on, Latishia BASIC METABOLIC [id number] 10:11:46 Test Item Value Reference Range Interpretation [...] m DATA TO CALCULA TE ESTIMATED GFR. Digital Photographer ID - [id number] ID - [id number] ID - XUFJP161Lcdtecth ID - [id number] ID - QZAHA493Pdqjyzdn ID - NXQEC870Ylvastjw ID - YIZGP901Mmrqxdms ID - NMMXN081Cddfrxfy ID - RDHPF151Kvofaxop ID - [id number] ZKIZYGAQX4903-66-92 10:09:12 Test Item Value Reference Range Interpretation Comments MAGNESIUM (BEAKER) (test code = 2.0 mg/dL 1.5-3.0 627) Digital Photographer ID - [id number] ID - [id number] ID - OMZLH591Pguvepbc ID - [id number] W/PLT COUNT & AUTO [id number] 09:35:09 Test Item Value Reference Range Interpretation [...] PERCENT (BEAKER) (test code = 2801) POCT-GLUCOSE [id number] 06:09:14 Test Item Value Reference Range Interpretation Comments POC-GLUCOSE METER 84 mg/dL 70-110 : TESTED A T [facility] [address] (BEAKER) (test code = [address], [address]) [facility] [address]: Digital Photographer/Techni kate ID = [id number] for Michelle Knight POCT-GLUCOSE [id number] 21:48:15 Test Item Value Reference Range Interpretation Comments POC-GLUCOSE METER 122 mg/dL 70-110 H : TESTED A T [facility] [address] (BEAKER) (test code [address], = 15[address]) [place] [address]: Digital Photographer/Techni kate ID = [id number] for Bridget Salas POCT-GLUCOSE [id number] 17:30:56 Test Item Value Reference Range Interpretation Comments POC-GLUCOSE METER 78 mg/dL 70-110 : TESTED A T [facility] [address] (BEAKER) (test code = [address], [address]) [place] [address]: Digital Photographer/Techni kate ID = [id number] for Fernanda Adorno POCT-GLUCOSE [id number] 11:52:53 Test Item Value Reference Range Interpretation Comments POC-GLUCOSE METER 72 mg/dL 70-110 : TESTED A T [facility] [address] (BEAKER) (test code = [address], [address]) [place] [address]: Digital Photographer/Techni kate ID = [id number] for Laura kilpatrick LaureFernanda Hepatic function [id number] 06:59:28 Test Item Value Reference Range Interpretation [...] 2.9 g/dL 3.5-5.0 L Specime n slightly 17568-2) hemolyzed Total Bilirubin (test 0.7 mg/dL 0.1-1.2 Specim en slightly code = 1974-2) hemolyzed Bilirubin, Direct 0.3 mg/dL 0.0-0.4 Specimen s lightly (test code = 1967-7) hemolyz ed Alkaline Phosphatase 61 U/L 30-115 (test code = 6768-6) AST (test code = 20 U/L 5-40 Specimen sl ightly 1920-8) hemolyzed ALT (test code = 8 U/L 5-50 Specimen sl ightly 1742-6) hemolyzed IRAJ (test code = IRAJ) Digital Photographer ID - refd84Drdjigci ID - engd60Oqnlkzak ID - bxjf11Gkcgmtts ID - vjgr92Xuwirtib ID - lsnf64Nkpyojmi ID - carl37Jhdiwvvh ID - ezbe23Hwsoxcev ID - zoyq84Elhfurah ID - zfuf87Pliztrns ID - znmp04 Lab Interpretation Abnormal (test code = 17360-3) [facility] reytu1696-02-80 06:59:28 Test Item Value Reference Range Interpretation [...] 2.9 g/dL 3.5-5.0 L Specime n slightly 32435-1) hemolyzed Total Bilirubin (test 0.7 mg/dL 0.1-1.2 [...] 1742-6) hemolyzed IRAJ (test code = IRAJ) Digital Photographer ID - zkpk83Jqsfgjgs ID - lrus09Xxjxacpc ID - zxot11Fmpmlzep ID - xnip94Ydiaxdiy ID - tbzg07Ahgplhug ID - jauu33Qnvynqao ID - vgqr60Qbrfrcmz ID - fksy35Obpozvyy ID - uyiq95Fthdybzg ID - znmp04 Lab Interpretation Abnormal (test code = 82893-7) [facility]AT[facility] FUNCTION [id number] 06:59:28 Test Item Value Reference Range Interpretation [...] Specimen slightly (test code = 347) hemolyzed Digital Photographer ID - [id number] ID - svfe80Mhzeqyvw ID - ywrq63Mqulixbh ID - bzly58Babujgbu ID - jaji12Tsmotrjk ID - fuor53Wndqktkb ID - pldx16Drehzfna ID - rtii08Xkqrmsav ID - qwde45Kvuzhzxx ID - vzha57UDSLG METABOLIC [id number] 06:56:05 Test Item Value Reference Range Interpretation [...] m DATA TO CALCULA TE ESTIMATED GFR. Digital Photographer ID - garm00Roputcxh ID - zylg98Wxunrtyo ID - dast11Htianjda ID - bkab84Vertrsxi ID - jfxd19Kfkmyctb ID - ihlz64Btvfdmoc ID - hync95Bvlejglt ID - cwdv18Dmyskezs ID - ntkk23Vqsificj ID - flpu28THK W/PLT COUNT & AUTO [id number] 06:40:28 Test Item Value Reference Range Interpretation [...] PERCENT (BEAKER) (test code = 2801) POCT-GLUCOSE [id number] 05:32:55 Test Item Value Reference Range Interpretation Comments POC-GLUCOSE METER 89 mg/dL 70-110 : Notified RN/MD: TESTED (BEAKER) (test code = AT [facility] [address]) [place] [address]: Digital Photographer/Techni kate ID = [id number] for Prov ost Mairbeth POCT-GLUCOSE [id number] 17:11:16 Test Item Value Reference Range Interpretation Comments POC-GLUCOSE METER 124 mg/dL 70-110 H : [facility]: [facility] (test code AT [facility] [address] = 1538) [place] [address]: Digital Photographer/Techni kate ID = [id number] for Dariel h, Lorita POCT-GLUCOSE [id number] 11:57:49 Test Item Value Reference Range Interpretation Comments POC-GLUCOSE METER 164 mg/dL 70-110 H : Notified RN/MD: TESTED ([facility]) (test code AT [facility] [address] = 1538) [place] [address]: Digital Photographer/Techni kate ID = [id number] for Dariel h, Lorita 2D Echo W/Doppler(CW/PW/Color)2021-09-24 10:09:58Ejection FractionSLEH ECHO [facility]ARTLAB [facility] W/Doppler(CW/PW/Color)2021-09-24 10:09:58Ejection FractionSLEH ECHO HEARTLAB MKKent[facility] CenterBASIC METABOLIC [id number] 05:37:52 Test Item Value Reference Range Interpretation [...] m DATA TO CALCULA TE ESTIMATED GFR. Digital Photographer ID - LITOOperator ID - LITOOperator ID - LITOOperator ID - LITOOperator ID - LITOOperator ID - LITOOperator ID - LITOOperator ID - LITOOperator ID - LITOOperator ID - LITOHEPATIC FUNCTION [id number] 05:33:43 Test Item Value Reference Range Interpretation [...] Specimen slightly (test code = 347) hemolyzed Digital Photographer ID - LITOOperator ID - LITOOperator ID - LITOOperator ID - LITOOperator ID - LITOOperator ID - LITOOperator ID - LITOOperator ID - LITOOperator ID - LITOOperator ID - LITOCBC W/PLT COUNT & AUTO [id number] 05:31:08 Test Item Value Reference Range Interpretation [...] (BEAKER) (test code = 2801) Hemoglobin and lzabrgsykj2915-62-26 22:35:07 Test Item Value Reference Range Interpretation Comments Hemoglobin (test code = 8.2 See_Comment L [Au tomated message] 786-4) The system [employer] generated this result transmitted ref erence range: 13.0 - 1 6.8 GM/DL. The refe rence range was not u sed to interpret this result as normal/abnor mal. Hematocrit (test code = 26.1 % 36.0-50.0 L 4544-3) Lab Interpretation (test Abnormal code = 75450-6) [facility] ngegfonmgw5006-89-88 22:35:07 Test Item Value Reference Range Interpretation Comments Hemoglobin (test code = 8.2 See_Comment L [Au tomated message] 786-4) The system [employer] generated this result transmitted ref erence range: 13.0 - 1 6.8 GM/DL. The refe rence range was not u sed to interpret this result as normal/abnor mal. Hematocrit (test code = 26.1 % 36.0-50.0 L 4544-3) Lab Interpretation (test Abnormal code = 27974-3) [facility] HospitalHEMOGLOBIN AND [id number] 22:35:07 Test Item Value Reference Range Interpretation Comments HEMOGLOBIN (BEAKER) (test code = 8.2 GM/DL 13.0-16.8 L 410) HEMATOCRIT (BEAKER) (test code = 26.1 % 36.0-50.0 L 411) POCT-GLUCOSE [id number] 21:10:24 Test Item Value Reference Range Interpretation Comments POC-GLUCOSE METER 158 mg/dL 70-110 H : Notified RN/MD: TESTED (BEAKER) (test code AT [facility] [address] [place] [address] = 1538) [facility] [address]: Digital Photographer/Techni kate ID = [id number] for Prov ostMaribeth U/S, RENAL, [id number] 18:57:00Reason for exam:->elevated Cr [facility] : 1935 Sex: MFINALREPORT TECHNIQUE: Grayscale ultrasound [...] Simple right renal cyst. Signed: Jolene Mir [facility] Verified Date/Time: 09/23/2021 18:57:43 HEMOGLOBIN AND [id number] 18:02:18 Test Item Value Reference Range Interpretation Comments HEMOGLOBIN (BEAKER) (test code = 9.4 GM/DL 13.0-16.8 L 410) HEMATOCRIT (BEAKER) (test code = 29.9 % 36.0-50.0 L 411) Troponin [id number] 17:56:55 Test Item Value Reference Range Interpretation Comments Troponin I (test code = <0.03 0.00-0.15 91694-2) IRAJ (test code = IRAJ) Troponin I [...] failure, acidosis, acute neurological disease, and persistent tachyarrhythmia.[facility] ID - ERINY Lab Interpretation (test Normal code = 67004-7) [facility] [id number] 17:56:55 Test Item Value Reference Range Interpretation Comments Troponin I (test code = <0.03 0.00-0.15 84788-2) IRAJ (test code = IRAJ) Troponin I [...] failure, acidosis, acute neurological disease, and persistent tachyarrhythmia.[facility] ID - ERINY Lab Interpretation (test Normal code = 33646-4) [facility] [id number] 17:56:55 Test Item Value Reference Range Interpretation Comments TROPONIN I (RAEGANAKER) (test code = 397) < ng/mL 0.00-0.15 [...] failure, acidosis, acute neurological disease, and persistent tachyarrhythmia.Digital Photographer ID - ERINYPOCT-GLUCOSE METER 2021-09-23 17:52:16 Test Item Value Reference Range Interpretation Comments POC-GLUCOSE METER 118 mg/dL 70-110 H : TESTED A T [facility] [address] (BEAKER) (test code [address], = 1538) [facility] [address]: Digital Photographer/Techni kate ID = [id number] for Sarah Teran POCT-GLUCOSE [id number] 11:32:42 Test Item Value Reference Range Interpretation Comments POC-GLUCOSE METER 131 mg/dL 70-110 H : TESTED A T [facility] [address] (BEAKER) (test code [address], = 1538) [facility] [address]: Digital Photographer/Techni kate ID = [id number] for Selene Tinajero TROPONIN [id number] 10:57:24 Test Item Value Reference Range Interpretation [...] failure, acidosis, acute neurological disease, and persistent tachyarrhythmia.Digital Photographer ID - SIDDHARTHALYNNEHEMOGLOBIN AND JHHTMEAKYM9170-69-12 10:50:03 Test Item Value Reference Range Interpretation Comments HEMOGLOBIN (BEAKER) (test code = 9.1 GM/DL 13.0-16.8 L 410) HEMATOCRIT (BEAKER) (test code = 28.9 % 36.0-50.0 L 411) [facility], kwzlgy5125-24-14 10:03:00 Test Item Value Reference Range Interpretation Comments ABO Grouping (test code = 2588) O TUBES Rh Factor (test code = 2589) NEG TUBES [facility], rtdgea3229-07-12 10:03:00 Test Item Value Reference Range Interpretation Comments ABO Grouping (test code = 2588) O TUBES Rh Factor (test code = 2589) NEG TUBES [facility] HospitalUrinalysis w/Microscopic + Reflex to Culture 2021-09-23 07:28:56 Test Item Value Reference Range Interpretation Comments Color, UA (test code Yellow = 5778-6) Clarity, UA (test Slightly Cloudy code = 5767-9) Specific [place], UA 1.010 1.001-1.035 (test code = 5811-5) pH, UA (test code = 5.5 5.0-8.0 5803-2) Protein, UA (test Negative Negative code = 88820-9) Glucose, UA (test >=1000 mg/dL Negative A code = 365) Ketones, UA (test Negative Negative code = 2514-8) Bilirubin, UA (test Negative Negative code = 95191-6) Blood, UA (test code Trace Negative A = 54271-0) Nitrite, UA (test Negative Negative code = 5802-4) Leukocytes, UA (test Small Negative A code = 5799-2) Urobilinogen, UA 0.2 mg/dL 0.2-1.0 (test code = 46293-0) Bacteria, UA (test Occasional code = 25223-1) Yeast (test code = Few 78368-6) RBC, UA (test code = <5 See_Comment [Autom ated 799-7) message] The system which generated this result transmitted reference range : /HPF. The reference range was not used to interpret this result as normal/abnormal . WBC, UA (test code = 20-50 See_Comment [Autom ated 65146-0) message] The system which generated this result transmitted reference range : /HPF. The reference range was not used to interpret this result as normal/abnormal . SQUAMOUS EPITHELIAL None Seen See_Comment [Automa julien (test code = 40783-9) messag e] The system which generated this result transmitted reference range : /HPF. The reference range was not used to interpret this result as normal/abnormal . Specimen Source (test code = 2795) Lab Interpretation Abnormal (test code = 56439-7) [facility]inal[facility] w/Microscopic + Reflex to Culture 2021-09-23 07:28:56 Test Item Value Reference Range Interpretation Comments Color, UA (test code Yellow = 5778-6) Clarity, UA (test Slightly Cloudy code = 5767-9) Specific [place], UA 1.010 1.001-1.035 (test code = 5811-5) pH, UA (test code = 5.5 5.0-8.0 5803-2) Protein, UA (test Negative Negative code = 89794-7) Glucose, UA (test >=1000 mg/dL Negative A code = 365) Ketones, UA (test Negative Negative code = 2514-8) Bilirubin, UA (test Negative Negative code = 26763-5) Blood, UA (test code Trace Negative A = 76717-9) Nitrite, UA (test Negative Negative code = 5802-4) Leukocytes, UA (test Small Negative A code = 5799-2) Urobilinogen, UA 0.2 mg/dL 0.2-1.0 (test code = 34620-7) Bacteria, UA (test Occasional code = 77640-9) Yeast (test code = Few 18854-5) RBC, UA (test code = <5 See_Comment [Autom ated 799-7) message] The system which generated this result transmitted reference range : /HPF. The reference range was not used to interpret this result as normal/abnormal . WBC, UA (test code = 20-50 See_Comment [Autom ated 49314-4) message] The system which generated this result transmitted reference range : /HPF. The reference range was not used to interpret this result as normal/abnormal . SQUAMOUS EPITHELIAL None Seen See_Comment [Automa julien (test code = 38053-9) messag e] The system which generated this result transmitted reference range : /HPF. The reference range was not used to interpret this result as normal/abnormal . Specimen Source (test code = 2795) Lab Interpretation Abnormal (test code = 05577-7) [facility]URIN[facility]IS W/ REFLEX URINE [id number] 07:28:56 Test Item Value Reference Range Interpretation [...] 1663) SOURCE(BEAKER) (test code = 2795) TROPONIN [id number] 06:35:09 Test Item Value Reference Range Interpretation [...] failure, acidosis, acute neurological disease, and persistent tachyarrhythmia.Digital Photographer ID - [id number] A1c 2021-09-23 05:13:31 Test Item Value Reference Range Interpretation Comments Hemoglobin A1C (test code 5.7 % 4.3-6.1 = 4548-4) IRAJ (test code = IRAJ) Digital Photographer ID - [id number] Lab Interpretation (test Normal code = 53604-6) [facility] HospitalHemoglobin [id number] 05:13:31 Test Item Value Reference Range Interpretation Comments Hemoglobin A1C (test code 5.7 % 4.3-6.1 = 4548-4) IRAJ (test code = IRAJ) Digital Photographer ID - [id number] Lab Interpretation (test Normal code = 31716-2) [facility] HospitalHEMOGLOBIN [id number] 05:13:31 Test Item Value Reference Range Interpretation Comments HEMOGLOBIN A1C (BEAKER) (test code = 5.7 % 4.3-6.1 368) Digital Photographer ID - [id number] and screen, oamjcnmll1695-59-76 05:09:00 Test Item Value Reference Range Interpretation Comments ABO/RH AUTOMATED (BEAKER) (test O NEGATIVE code = 2260) Ab Scrn (test code = 890-4) NEGATIVE [facility] HospitalType and screen, vkrzqozyv7553-98-84 05:09:00 Test Item Value Reference Range Interpretation Comments ABO/RH AUTOMATED (BEAKER) (test O NEGATIVE code = 2260) Ab Scrn (test code = 890-4) NEGATIVE [facility] HospitalRAD, CHEST, 1 VIEW, NON [id number] 04:38:00Reason for exam:->baselineShould this be performed at the bedside?->Yes [facility] : 1935 Sex: MFINALREPORT INDICATION: [...] ARANGO MD on 09/23/2021 04:38 AMBASIC METABOLIC [id number] 04:34:59 Test Item Value Reference Range Interpretation [...] m DATA TO CALCULA TE ESTIMATED GFR. Digital Photographer ID - [id number] ID - [id number] ID - GVIU22Uajcjtyt ID - SHSB77Bdmhfiip ID - TYUH44Lcrufwba ID - WPIK78Qorlblsl ID - ULOW31Qhjzulow ID - OBZY82Bvnpgzvc ID - MBTE22Wbmehxbd ID - PFTF67SCLYZKJYC9599-85-97 04:32:57 Test Item Value Reference Range Interpretation Comments MAGNESIUM (BEAKER) 2.2 mg/dL 1.5-3.0 Specimen slightly (test code = 627) hemolyzed Digital Photographer ID - [id number] ID - [id number] ID - PBAO91Sdxbinue ID - [id number] HEPATIC FUNCTION ABERO2408-29-00 04:32:57 Test Item Value Reference Range Interpretation [...] Specimen slightly (test code = 347) hemolyzed Digital Photographer ID - [id number] ID - [id number] ID - [id number] ID - HKCH09Qmitdvcm ID - NKII04Dtsbsijt ID - QSBM18Zqivzpli ID - LHTK55Irplrafmwi 2021-09-23 04:29:39 Test Item Value Reference Range Interpretation Comments Phosphorus (test code 4.3 mg/dL 2.5-4.5 Specim en = 2777-1) slightly hemolyzed IRAJ (test code = IRAJ) Digital Photographer ID - [id number] Lab Interpretation Normal (test code = 16575-1) [facility] HospitalPhosphorus2022-03-20 04:29:39 Test Item Value Reference Range Interpretation Comments Phosphorus (test code 4.3 mg/dL 2.5-4.5 Specim en = 2777-1) slightly hemolyzed IRAJ (test code = IRAJ) Digital Photographer ID - [id number] Lab Interpretation Normal (test code = 73583-0) [facility] HospitalPHOSPHORUS2022-03-20 04:29:39 Test Item Value Reference Range Interpretation Comments PHOSPHORUS (BEAKER) 4.3 mg/dL 2.5-4.5 Specimen slightly (test code = 604) hemolyzed Digital Photographer ID - [id number] time/[id number] 04:25:54 Test Item Value Reference Interpretation Comments [...] valves. Lab Interpretation Abnormal (test code = 90771-0) [facility] HospitalProthrombin time/[id number] 04:25:54 Test Item Value Reference Interpretation Comments [...] valves. Lab Interpretation Abnormal (test code = 69938-1) [facility] HospitalPROTHROMBIN TIME/[id number] 04:25:54 Test Item Value Reference Range Interpretation Comments PROTIME (BEAKER) 12.6 seconds 9.3-12.0 H Final Infor mation (test code = 759) (Auto Outp ut) INR (BEAKER) (test 1.16 See_Comment Final Inf ormation code = 370) (Auto Output) [Automated mess age] The system ic h generated this result transmitted ref erence range: <=5.90. The reference range was not used to int erpret this result as normal/abnormal . RECOMMENDED COUMADIN/WARFARIN INR THERAPY RANGESSTANDARD DOSE: 2.0 - 3.0 Includes: PROPHYLAXIS for venous thrombosis, systemic embolization; TREATMENT for venous thrombosis and/or pulmonary embolus.HIGH RISK: Target INR is 2.5-3.5 for patients with mechanical heart valves.CBC W/PLT COUNT & AUTO KEFDVZIZFENZ8928-65-51 04:16:54 Test Item Value Reference Range Interpretation [...] PERCENT (BEAKER) (test code = 2801) POCT-GLUCOSE [id number] 03:44:38 Test Item Value Reference Range Interpretation Comments POC-GLUCOSE METER 167 mg/dL 70-110 H : TESTED A T [facility] (BEAKER) (test code [address], = 1538) [facility] [address]: Digital Photographer/Techni kate ID = [id number] for Ahsan Orozco POCT-GLUCOSE [id number] 03:27:46 Test Item Value Reference Range Interpretation Comments POC-GLUCOSE METER 164 mg/dL 70-110 H : TESTED A T [address] (BEAKER) (test code [address], = 1538) [place] [address]: Digital Photographer/Techni kate ID = [id number] for Kirk Healy POC zezdjzh1951-91-06 18:51:34 Test Item Value Reference Range Interpretation Comments POC glucose (test code 116 mg/dL 65-99 H Opera tor Name: [place] = 32864-6) MararpitnDevice ID : [id number] able: [facility] 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 Interpretation Abnormal (test code = 60479-1) [facility] ywdomzj7828-69-31 18:51:34 Test Item Value Reference Range Interpretation Comments POC glucose (test code 116 mg/dL 65-99 H Opera tor Name: [place] = 40682-5) SuzynDevice ID : [id number] able: TM 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 Interpretation Abnormal (test code = 44293-9) [facility]2021-12-29 18:51:34 Test Item Value Reference Range Interpretation Comments POC glucose (test code 116 mg/dL 65-99 H Opera tor Name: [place] = 08587-7) MararpitnDevice ID : [id number] able: [facility] 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 Interpretation Abnormal (test code = 56722-6) [facility] RNA [Presence] in Respiratory specimen by ANDREW with probe kkfophzcb6822-00-15 11:35:00 Test Item Value Reference Range Interpretation Comments 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 (test code = 19641-8) Whether the patient was admitted to intensive care unit (ICU) for condition of interest (test code = 19216-2) [facility] Preliminary Interpretation - Not an Ewoai0136-85-66 02:10:59 Test Item Value Reference Range Interpretation Comments IRAJ (test code = IRAJ) Jami Dubois MD 06/28/2021 3:18 [facility] Preliminary Interpretation - Not an OrderPerformed by: Jami Dubois, ÁNGELuthorized by: Jami Dubois MD ECG reviewed by ED Physician in the absence of a burr bench operator: yes Interpretation: Interpretation: abnormal Rate: ECG rate: 72 ECG rate assessment: normal Rhythm: Rhythm: paced Pacing: Capture: CompleteEctopy: Ectopy: none QRS: QRS axis: Normal QRS intervals: NormalConduction: Conduction: normal ST segments: ST segments: NormalT waves: T waves: normal Lab Interpretation Abnormal (test code = 36256-9) [facility] Preliminary Interpretation - Not an Oysni8796-46-56 02:10:59 Test Item Value Reference Range Interpretation Comments IRAJ (test code = IRAJ) Jami Dubois MD 06/28/2021 3:18 [facility] Preliminary Interpretation - Not an OrderPerformed by: Jami Dubois, ÁNGELuthorized by: Jami Dubois MD ECG reviewed by ED Physician in the absence of a burr bench operator: yes Interpretation: Interpretation: abnormal Rate: ECG rate: 72 ECG rate assessment: normal Rhythm: Rhythm: paced Pacing: Capture: CompleteEctopy: Ectopy: none QRS: QRS axis: Normal QRS intervals: NormalConduction: Conduction: normal ST segments: ST segments: NormalT waves: T waves: normal Lab Interpretation Abnormal (test code = 43690-1) [facility] Preliminary Interpretation - Not an Iayvl1530-24-35 02:10:59 Test Item Value Reference Range Interpretation Comments IRAJ (test code = IRAJ) Jami Dubois MD 06/28/2021 3:18 [facility] Preliminary Interpretation - Not an OrderPerformed by: Jami Dubois MDAuthorized by: Jami Dubois MD ECG reviewed by ED Physician in the absence of a burr bench operator: yes Interpretation: Interpretation: abnormal Rate: ECG rate: 72 ECG rate assessment: normal Rhythm: Rhythm: paced Pacing: Capture: CompleteEctopy: Ectopy: none QRS: QRS axis: Normal QRS intervals: NormalConduction: Conduction: normal ST segments: ST segments: NormalT waves: T waves: normal Lab Interpretation Abnormal (test code = 87504-9) [facility] [id number] 14:36:00 Test Item Value Reference Interpretation Comments [...] for children. [Automated mess age] The system [employer] generated this result transmit julien reference range : <5.7 % of total Hgb. The refere nce range was not u sed to interpret th is result as normal/abnormal . IRAJ (test code = FASTING:NO IRAJ) FASTING: NO RAC (test code = Performing RAC) Organization Information: Site ID: RGA Name: [facility] Address: [address] [place] [id number] Director: Rajan Yates Lab Interpretation Abnormal (test code = 63324-8) [facility] HospitalKsmnjwasIO-vkaIJC6773-84-08 14:36:00 Test Item Value Reference Interpretation Comments Range NT-proBNP (test 2736 pg/mL H Male Risk: Optimal code = 76206-3) < 253 pg/mL High > or = 253 pg/mL For Heart Failure ( HF) diagnosis, referenceranges in patients with dyspnea are bas ed onQuoc JL, E t al. J Am Rodolfo Cardiol.2018;71 [...] <372 pg/mL women) arebased on Oml and T et al. J Am Rodolfo Cardiol.2007:50 :205- 14. For patient s with existing H F, the optimal riskcategory cu t point for HF progression (<3 00 pg/mL)is based on Trisha KB, et al. Clin Biochem.2010;43 :1405 -10. For additi onal information, pl ease refer tohttp://educat ion.[employer]/ faq/KTM790(This link is being provid ed for informational/e ducat ionalpurposes o nly.) IRAJ (test code = FASTING:NO IRAJ) FASTING: NO RAC (test code = Performing RAC) Organization Information: Site ID: EZ Name: [employer], Address: [address] [place] [id number] Director: Nissa Frey MD,PhD,GHULAM Lab Interpretation Abnormal (test code = 31169-1) [facility] [id number] 14:36:00 Test Item Value Reference Interpretation Comments [...] for children. [Automated mess age] The system [employer] generated this result transmit julien reference range : <5.7 % of total Hgb. The refere nce range was not u sed to interpret th is result as normal/abnormal . IRAJ (test code = FASTING:NO IRAJ) FASTING: NO RAC (test code = Performing RAC) Organization Information: Site ID: RGA Name: [facility] on Lab Address: [address] [place] [address] Director: Rajan Yates Lab Interpretation Abnormal (test code = 97551-4) Rachael MosesTrwjxqqrZA-hoxTOX7526-47-08 14:36:00 Test Item Value Reference Interpretation Comments Range NT-proBNP (test 2736 pg/mL H Male Risk: Optimal code = 78767-6) < 253 pg/mL High > or = 253 pg/mL For Heart Failure ( HF) diagnosis, referenceranges in patients with dyspnea are bas ed onQuoc HERRMANN, Kaleigh t al. J Am Rodolfo Cardiol.2018;71 :1191 [...] pg/mL men, <372 pg/mL women) arebased on Omedilia pickett T et al. J Am Rodolfo Cardiol.2007:50 :205- 14. For patient s with existing H F, the optimal riskcategory cu t point for HF progression (<3 00 pg/mL)is based on Trisha KB, et al. Clin Biochem.2010;43 :1405 -10. For additi onal information, pl ease refer tohttp://educat ion.[employer]/ faq/RTK345(This link is being provid ed for informational/e ducat ionalpurposes o nly.) IRAJ (test code = FASTING:NO IRAJ) FASTING: NO RAC (test code = Performing RAC) Organization Information: Site ID: EZ Name: [employer] [facility], Address: [address] [place] [id number] Director: Nissa Frey MD,PhD,GHULAM Lab Interpretation Abnormal (test code = 20884-4) [employer] UjdytitxBUJP-BoI-8 (COVID-19) RNA [Presence] in Respiratory specimen by ANDREW with probe ndrniyqmq8678-21-64 00:24:51 Test Item Value Reference Range Interpretation Comments SARS-CoV-2 (COVID-19) RNA Not detected Not-Detected [Presence] in Respiratory specimen by ANDREW with probe detection (test code = 80219-1) [employer] RESTORATION[employer] AHKVYCRQ-DvZ-4 (COVID-19) RNA [Presence] in Respiratory specimen by ANDREW with probe kmpggjhda9044-38-69 23:06:04 Test Item Value Reference Range Interpretation Comments SARS-CoV-2 (COVID-19) RNA Not detected Not-Detected [Presence] in Respiratory specimen by ANDREW with probe detection (test code = 56426-3) [employer] YSSJUXXC-TtB-2 (COVID-19) RNA [Presence] in Respiratory specimen by ANDREW with probe gexqvsvok4445-51-13 19:57:13 Test Item Value Reference Range Interpretation Comments SARS-CoV-2 (COVID-19) RNA Not detected Not-Detected [Presence] in Respiratory specimen by ANDREW with probe detection (test code = 54619-5) [employer] NECXDJQI-JkS-7 (COVID-19) RNA [Presence] in Respiratory specimen by ANDREW with probe kvuneyckp7431-62-54 23:40:00 Test Item Value Reference Range Interpretation Comments SARS-CoV-2 (COVID-19) RNA Not detected Not-Detected [Presence] in Respiratory specimen by ANDREW with probe detection (test code = 87037-5) [employer]OREL[facility] RESTORATIONIST AUYOFEUK-DlC-0 (COVID-19) RNA [Presence] in Respiratory specimen by ANDREW with probe iwagykehn1737-11-26 22:07:46 Test Item Value Reference Range Interpretation Comments SARS-CoV-2 (COVID-19) RNA Not detected Not-Detected [Presence] in Respiratory specimen by ANDREW with probe detection (test code = 01450-3) [employer] RESTORATION[employer] LRBDMUGE-WdV-1 (COVID-19) RNA [Presence] in Respiratory specimen by ANDREW with probe [id number] 21:47:42 Test Item Value Reference Range Interpretation Comments SARS-CoV-2 (COVID-19) RNA Not detected Not-Detected [Presence] in Respiratory specimen by ANDREW with probe detection (test code = 82242-1) JOHN SOSASARS-CoV-2 (COVID-19) RNA [Presence] in Respiratory specimen by ANDREW with probe [id number] 14:31:58 Test Item Value Reference Range Interpretation Comments SARS-CoV-2 (COVID-19) RNA Not detected Not-Detected [Presence] in Respiratory specimen by ANDREW with probe detection (test code = 86081-3) JOHN SOSA
--- NOTE | 2022-08-01 13:04 | RAD REPORT ---
EXAM DESCRIPTION: Shital Single View08/01/2022 12:53 pm CLINICAL HISTORY: Shortness of breath COMPARISON: February 2022 FINDINGS: The lungs appear clear of acute infiltrate. The heart is mildly enlarged. Postsurgical changes involve the chest. Pacemaker leads in place IMPRESSION: No acute abnormalities displayed
[2022-08-01 13:23] LABS: Absolute Lymphocytes (CBC) 0.6 K/uL (0.7-4.9); Hematocrit 30.4 % (39.6-49.0); MCV 93.3 fL (80-100); RBC Red Blood Cell Count 3.26 M/uL (4.33-5.43)
[2022-08-01 13:38] LABS: Magnesium 2.6 mg/dL (1.6-2.4); Troponin High Sensitivity 16.8 pg/mL (<58.9)
--- NOTE | 2022-08-01 13:53 | RAD REPORT ---
EXAM DESCRIPTION: USExtrem Venous W Compress Bil08/01/2022 1:41 pm CLINICAL HISTORY: Leg swelling COMPARISON: 2016 FINDINGS: The common femoral, superficial femoral, greater saphenous, popliteal and posterior tibial veins bilaterally are compressible and demonstrate augmentation. Doppler demonstrates good flow. Grayscale, color and spectral analysis performed on all vessels IMPRESSION: No evidence of deep venous thrombosis involving either lower extremity.
--- NOTE | 2022-08-01 13:56 | RAD REPORT ---
EXAM DESCRIPTION: US - Lower Extremity Arterial Bilat - 08/01/2022 1:41 pm CLINICAL HISTORY: Leg pain COMPARISON: None FINDINGS: Right common femoral, superficial femoral and popliteal arteries demonstrate biphasic waveforms The right dorsalis pedis artery demonstrates a biphasic waveform Right posterior tibial arterial waveform monophasic The left common femoral, superficial femoral and popliteal arteries demonstrate biphasic waveforms The left posterior tibial and dorsalis pedis arteries demonstrate biphasic waveforms Grayscale, color and spectral analysis performed on all vessels IMPRESSION: 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
[2022-08-01] MEDS ORDERED: FUROSEMIDE 40 MG/4 ML VIAL ONE (14:08)
--- NOTE | 2022-08-01 14:35 | ER ---
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 Pt states "my legs are swollen so I think I have fluid in my lungs". 12:15 Coronavirus screen: At this time, the client does not indicate any symptoms associated aa5 with coronavirus-19. Ebola Screen: Patient denies travel to an Ebola-affected area in the 21 days before illness onset. Initial Sepsis Screen: Does the patient meet any 2 criteria? No. Patient's initial sepsis screen is negative. Does the patient have a suspected source of infection? Yes:. Risk Assessment: Do you want to hurt yourself or someone else? Patient reports no desire to harm self or others. Onset of symptoms was July 2022. 12:15 Acuity: VIN 3 aa5 12:15 Method Of Arrival: Wheelchair aa5 Historical: - Allergies: 12:17 No Known Allergies; aa5 - PMHx: 12:16 Alzheimer's disease; BPH; Diabetes - IDDM; High Cholesterol; Hypertension; Pacemaker; aa5 Pneumonia; - PSHx: 12:16 CABG; pacemaker; aa5 - Immunization history:: Adult Immunizations unknown. - Social history:: Smoking status: Patient denies any tobacco usage or history of. Vital Signs: 12:15 BP 127 / 56; Pulse 80; Resp 18 S; Temp 98.0(TE); Pulse Ox 100% on R/A; aa5 12:19 Weight 99.79 kg (R); Height 5 ft. 11 in. (180.34 cm) (R); aa5 12:19 Body Mass Index 30.68 (99.79 kg, 180.34 cm) aa5 ED Course: 12:06 Patient arrived in ED. am2 12:07 Darrian Gant PA is PHCP. cp 12:07 Alo Gomes MD is Attending Physician. cp 12:16 Arm band placed on. aa5 12:19 Triage completed. aa5 12:54 XRAY Chest (1 view) In Process Unspecified. EDMS 13:14 Basic Metabolic Panel Sent. bc6 13:14 CBC with Diff Sent. bc6 13:14 Magnesium Sent. bc6 13:14 NT PRO-BNP Sent. bc6 13:14 Troponin HS Sent. bc6 13:14 Initial lab(s) drawn, by me, sent to lab. Inserted saline lock: 20 gauge in left bc6 antecubital area, using aseptic technique. 13:21 Cathy Suazo, RN is Primary Nurse. kr3 13:43 US Extremity Venous W Compression Mookie In Process Unspecified. EDMS 13:43 US Lower Extremity Arterial Bilateral In Process Unspecified. EDMS 14:47 Foot Left 3 View In Process Unspecified. EDMS Administered Medications: 14:12 Drug: Lasix (furosemide) 40 mg Route: IVP; Site: left forearm; kr3 14:46 Drug: Doxycycline 200 mg Route: PO; kr3 Outcome: 14:35 Discharge ordered by . cp 15:03 Patient left the ED. kr3 Signatures: Dispatcher [employer] EDMS Liliya Amador, RN RN aa5 Darrian Gant PA PA cp Verónica Kilgore am2 Cathy Suazo, RN RN kr3 Pavithra Michael 6
--- NOTE | 2022-08-01 14:36 | EDPHYS ---
Physician Documentation [facility] Name: Gilmer Mercado Age: 87 yrs Sex: Male : 1935 Arrival Date: 08/01/2022 Time: 12:06 Bed 16 Private MD: ED Physician Alo Gomes HPI: 08/01 12:45 This 87 yrs old Male presents to ER via Wheelchair with complaints of toe infection. cp 12:45 The patient presents with swelling, tenderness, erythema. The complaints affect the cp left great toe. 12:45 Context: resulted from an unknown cause. Onset: The symptoms/episode began/occurred 2 cp day(s) ago. Associated signs and symptoms: Pertinent positives: lower extremity edema, shortness of breath, Pertinent negatives fever, chest pain, abdominal pain. Treatment prior to arrival includes: no previous treatment. Patient reports having left second toe amputated about 1 month ago by physician in [place]. Historical: - Allergies: 12:17 No Known Allergies; aa5 - PMHx: 12:16 Alzheimer's disease; BPH; Diabetes - IDDM; High Cholesterol; Hypertension; Pacemaker; aa5 Pneumonia; - PSHx: 12:16 CABG; pacemaker; aa5 - Immunization history:: Adult Immunizations unknown. - Social history:: Smoking status: Patient denies any tobacco usage or history of. ROS: 12:50 Constitutional: Negative for body aches, chills, fever, poor PO intake. cp 12:50 Eyes: Negative for injury, pain, redness, and discharge. cp 12:50 ENT: Negative for drainage from ear(s), ear pain, sore throat, difficulty swallowing, difficulty handling secretions. 12:50 Cardiovascular: Positive for edema, Negative for chest pain, palpitations. 12:50 Respiratory: Positive for shortness of breath, on exertion. Negative for cough, wheezing. 12:50 Abdomen/GI: Negative for abdominal pain, nausea, vomiting, and diarrhea. 12:50 MS/extremity: Positive for erythema, pain, swelling, tenderness, of the left great toe, Negative for injury or acute deformity. 12:50 Neuro: Negative for altered mental status, dizziness, headache, weakness. 12:50 All other systems are negative. Exam: 12:55 Constitutional: The patient appears in no acute distress, alert, awake, cp non-diaphoretic, non-toxic, well developed, well nourished. 12:55 Head/Face: Normocephalic, atraumatic. cp 12:55 Eyes: Periorbital structures: appear normal, Conjunctiva: normal, no exudate, no cp injection, Sclera: no appreciated abnormality, Lids and lashes: appear normal, bilaterally. 12:55 ENT: External ear(s): are unremarkable, Nose: is normal, Mouth: Lips: moist, Oral mucosa: moist, Posterior pharynx: is normal, airway is patent, no erythema, no exudate. 12:55 Chest/axilla: Inspection: normal. cp 12:55 Cardiovascular: Rate: normal, Rhythm: regular, Pulses: Edema: ankle edema, that is mild, JVD: is not appreciated. 12:55 Respiratory: the patient does not display signs of respiratory distress, Respirations: normal, no use of accessory muscles, no retractions, labored breathing, is not present, Breath sounds: bronchial sounds, that are mild, are heard diffusely, stridor, is not appreciated, wheezing: is not appreciated. 12:55 Abdomen/GI: Inspection: abdomen appears normal, Palpation: abdomen is soft and non-tender, in all quadrants. 12:55 Back: pain, is absent, ROM is normal. 12:55 Musculoskeletal/extremity: Extremities: noted in the left foot: great toe appears with mild erythema and swelling from nailbed extending distally and medial side of toe. Second toe amputation site appears w/o erythema, swelling. 12:55 Neuro: Orientation: to person, place \T\ time. Mentation: is normal. 14:19 ECG was reviewed by the Attending Physician. cp Vital Signs: 12:15 BP 127 / 56; Pulse 80; Resp 18 S; Temp 98.0(TE); Pulse Ox 100% on R/A; aa5 12:19 Weight 99.79 kg (R); Height 5 ft. 11 in. (180.34 cm) (R); aa5 12:19 Body Mass Index 30.68 (99.79 kg, 180.34 cm) aa5 MDM: 12:22 Patient medically screened. cp 14:35 Data reviewed: vital signs, nurses notes, lab test result(s), EKG, radiologic studies, cp plain films, ultrasound. 14:35 Differential diagnosis: closed fracture, cellulitis, CHF, electrolyte abnormality, cp abscess. Consideration of Admission/Observation Escalation of care including admission/observation considered. I considered the following discharge prescriptions or medication management in the emergency department Medications were administered in the Emergency Department. See MAR. Independent interpretation of the following test(s) in the Emergency Department X-Ray: My interpretation is xrays of left foot negative for fracture. Test considered but Not performed: CT: chest. Care significantly affected by the following chronic conditions: Diabetes, Hypertension. Counseling: I had a detailed discussion with the patient and/or guardian regarding: the historical points, exam findings, and any diagnostic results supporting the discharge/admit diagnosis, lab results, radiology results, the need for outpatient follow up, a general surgeon, to return to the emergency department if symptoms worsen or persist or if there are any questions or concerns that arise at home. Response to treatment: the patient's symptoms have mildly improved after treatment, and as a result, I will discharge patient. 08/01 12:40 Order name: Basic Metabolic Panel; Complete Time: 13:42 08/01 14:02 Interpretation: Normal except: NA 135; GLUC 279; BUN 66; CRE 2.80; GFR 21; CA 7.7. cp 08/01 12:40 Order name: CBC with Diff; Complete Time: 13:42 cp 08/01 14:32 Interpretation: Normal except: RBC 3.26; HGB 9.7; HCT 30.4; MCHC 31.8; PLT 145; RDW cp 18.9; JA% 84.5; LYM% 13.0; MN% 2.2; LYMA 0.6. 08/01 12:40 Order name: Magnesium; Complete Time: 13:42 cp 08/01 12:40 Order name: NT PRO-BNP; Complete Time: 13:42 cp 08/01 12:40 Order name: Troponin HS; Complete Time: 13:42 cp 08/01 12:40 Order name: XRAY Chest (1 view); Complete Time: 13:42 cp 08/01 12:40 Order name: EKG; Complete Time: 12:40 cp 08/01 12:40 Order name: Cardiac monitoring; Complete Time: 14:13 cp 08/01 12:40 Order name: US Extremity Venous W Compression Mookie; Complete Time: 14:02 cp 08/01 12:40 Order name: US Lower Extremity Arterial Bilateral; Complete Time: 14:02 cp 08/01 14:47 Order name: Foot Left 3 View EDMS 08/01 12:40 Order name: EKG - Nurse/Tech; Complete Time: 14:18 cp 08/01 12:40 Order name: IV Saline Lock; Complete Time: 13:13 cp 08/01 12:40 Order name: Labs collected and sent; Complete Time: 13:13 cp 08/01 12:40 Order name: O2 Per Protocol; Complete Time: 13:21 cp 08/01 12:40 Order name: O2 Sat Monitoring; Complete Time: 13:21 cp EC:19 Rate is 73 beats/min. Rhythm is regular, Paced. QRS interval is prolonged at 186 msec. cp QT interval is prolonged at 526 msec. T waves are Inverted in leads aVL, aVR, V2. Interpreted by me. Reviewed by me. Administered Medications: 14:12 Drug: Lasix (furosemide) 40 mg Route: IVP; Site: left forearm; kr3 14:46 Drug: Doxycycline 200 mg Route: PO; kr3 Disposition: 15:16 I reviewed the patient's care provided by the Advanced Practice Provider and agree with [email or web address] the diagnosis and treatment plan. Disposition Summary: 08/01/22 14:35 Discharge Ordered Location: Home cp Problem: new cp Symptoms: have improved cp Condition: Stable cp Diagnosis - Edema, unspecified cp - Cellulitis of left toe cp Followup: cp - With: Private Physician - When: 2 - 3 days - Reason: great toe cellulitis Discharge Instructions: - Discharge Summary Sheet cp - Cellulitis, Adult cp - Edema cp Forms: - Medication Reconciliation Form cp - Thank You Letter cp - Antibiotic Education cp - Prescription Opioid Use cp Prescriptions: - Lasix 20 mg Oral Tablet - take 1 tablet by ORAL route once daily; 5 tablet; Refills: 0, Product Selection cp Permitted - Doxycycline Monohydrate 100 mg Oral Tablet - take 1 tablet by ORAL route every 12 hours for 7 days; 14 tablet; Refills: 0, cp Product Selection Permitted Signatures: Dispatcher [employer] EDMS Liliya Amador, RN RN aa5 Darrian Gant PA PA cp Alo Gomes MD MD [id number] Cathy Suazo RN RN kr3 Corrections: (The following items were deleted from the chart) 14:47 14:02 Foot Right 3 View+[email or web address] ordered. EDMS EDMS
[2022-08-01] MEDS ORDERED: DOXYCYCLINE 100 MG CAP PO ONE (14:43)
[2022-08-01 15:18] VITALS: BP 127/56; TEMP 98; O2SAT 100
--- NOTE | 2022-08-01 15:21 | RAD REPORT ---
EXAM DESCRIPTION: RAD - Foot Left 3 View - 08/01/2022 2:46 pm CLINICAL HISTORY: Left Foot pain and swelling FINDINGS: Amputation second and third phalanges. Soft tissue swelling distally. Lucency within the medial aspect of the first metatarsal. If the patient has swelling in this region this probably would indicate osteomyelitis. No additional bony destruction seen.
--- NOTE | 2022-08-02 13:17 | EKG ---
Test Date: 2022-08-01 Test Time: 14:17:40 Flake Miller Helper: BING MEASUREMENT RESULTS: Intervals: Rate: 73 [place]: QRSD: 186 QT: 526 QTc: 579 [place]: P: [place]: QRS: -87 T: 99 INTERPRETIVE STATEMENTS: Electronic ventricular pacemaker Compared to ECG 02/08/2022 11:30:50 AV dual-paced complex(es) or rhythm no longer present Electronically Signed On 08-02-22 13:15:04 FIRE PREVENTION INSPECTOR by Darrick Cortes
== END 2022-08-01 15:03 | disposition home or self-care (01) ==
LOC: ER 12:04
DX: R60.9 Edema, unspecified (principal); L03.032 Cellulitis of left toe; I10 Essential (primary) hypertension; G30.9 Alzheimer's disease, unspecified; F02.80 Dementia in other diseases classified elsewhere, unspecified severity, without behavioral disturbance, psychotic disturbance, mood disturbance, and anxiety; Z95.0 Presence of cardiac pacemaker; Z95.1 Presence of aortocoronary bypass graft
CPT/HCPCS: 93005; 85025; 80048; 36415; 83735; 84484; 83880; 71045; 73630; 93925; 93970; 96374; 99284; J1940